=== PATIENT | female | born 1940 | race Caucasian/White ===

== ENCOUNTER 2023-02-02 21:00 | Outpatient (REF) | payer MEDICARE, OTHER, SELFPAY | END 2023-02-02 21:01 | disposition home or self-care (01) | LOC: LAB 21:00 | PROVIDERS: PCP Internal Medicine; Visit Provider Internal Medicine | DX: N39.0 Urinary tract infection, site not specified (principal) | CPT/HCPCS: 87086; 87150; 87186 ==

== ENCOUNTER 2023-06-10 11:48 | Outpatient (OUT) | payer MEDICARE, OTHER, SELFPAY ==
--- NOTE | 2023-06-10 12:00 | XR_ITS ---
The [address] [address] Patient Name: TRAVIS GONCALVES MRN: [id number] date: 1940 Sex: F Assigned Patient Location: [facility] Current Patient Location: Accession/Order Number: [id number] Exam Date: 06/10/2023 12:12 Report Date: 06/11/2023 07:08 At the request of: WIL EWING Procedure: XR lumbar spine 2-3V EXAMINATION: XR lumbar spine 2-3V HISTORY: Chronic Left Side Low Back Pain, Rheumatoid Arthritis COMPARISON: No relevant comparison available. FINDINGS: BONES: Marked right convex curvature of thoracolumbar spine. Mild grade 1 anterolisthesis of L3 on 4. Left lateral wedging of L2 vertebral body. Multilevel degenerative facet arthropathy and degenerative endplate changes. DISC SPACES: Marked narrowing L1-2, L2-3, L5-S1. Moderate narrowing at remaining levels. PARASPINOUS: Marked atherosclerotic disease of iliac arteries. OTHER: Negative. XR/XR lumbar spine 2-3V IMPRESSION: 1. No appreciable acute abnormality; no prior studies for comparison. 2. Marked degenerative changes and scoliosis of lower thoracic and lumbar spine. Electronically authenticated by: RADHA HODGE Date: 06/11/2023 07:08
== END 2023-06-10 11:49 | disposition home or self-care (01) ==
LOC: RAD 11:51
PROVIDERS: PCP Family Medicine; Visit Provider Family Medicine
DX: M05.79 Rheumatoid arthritis with rheumatoid factor of multiple sites without organ or systems involvement (principal); M54.50 Low back pain, unspecified
CPT/HCPCS: 72100

== ENCOUNTER 2023-06-10 12:41 | Outpatient (RCR) | payer MEDICARE, OTHER, SELFPAY | END 2023-09-11 11:21 | disposition home or self-care (01) | LOC: PT 12:41 | PROVIDERS: PCP Family Medicine; Visit Provider Internal Medicine | DX: M54.50 Low back pain, unspecified (principal) | CPT/HCPCS: 20561; 97113; 97162 ==

== ENCOUNTER 2023-07-23 23:10 | Outpatient (REF) | payer MEDICARE, OTHER, SELFPAY ==
--- OUTSIDE RECORDS SUMMARY | 2023-07-23 23:14 | XMS_ITS | CCD ---
Author Organization [facility] Care Team Providers Care Product Strategy Director Name Role Phone DO Carin Brady Primary Care Provider MD Jan Solares Attending Provider [phone] BECK, DR MONTOYA Admitting Unavailable HALADAY, DR MONTOYA Attending Unavailable NADERER, DR BOONE Waldrop Primary Care Unavailable HALADAY, DR MONTOYA Consulting Unavailable HALADAY, DR MONTOYA Admitting Unavailable HALADAY, DR MONTOYA Attending Unavailable NADERER, DR BOONE Waldrop Primary Care Unavailable HALADAY, DR MONTOYA Consulting Unavailable HALADAY, DR MONTOYA Admitting Unavailable HALADAY, DR MONTOYA Attending Unavailable NADERER, DR BOONE Waldrop Primary Care Unavailable HALADAY, DR MONTOYA Consulting Unavailable NADERER, DR BOONE Waldrop Admitting Unavailable NADERER, DR BOONE Waldrop Attending Unavailable NADERER, DR BOONE Waldrop Primary Care Unavailable NADERER, DR BOONE Waldrop Consulting Unavailable NADERER, DR BOONE Waldrop Admitting Unavailable NADERER, DR BOONE Waldrop Attending Unavailable NADERER, DR BOONE Waldrop Primary Care Unavailable NADERER, DR BOONE Waldrop Consulting Unavailable NADERER, DR BOONE Waldrop Admitting Unavailable NADERER, DR BOONE Waldrop Attending Unavailable NADERER, DR BOONE Waldrop Primary Care Unavailable NADERER, DR BOONE Waldrop Consulting Unavailable HALADAY, DR MONTOYA Admitting Unavailable HALADAY, DR MONTOYA Attending Unavailable NADERER, DR BOONE Waldrop Primary Care Unavailable HALADAY, DR MONTOYA Consulting Unavailable Gustavoadadylan, Jan Admitting Unavailable Haladadylan, Jan Attending Unavailable Carin Brady Primary Care Unavailable Haladadylan, Jan Admitting Unavailable Haladadylan, Jan Attending Unavailable Carin Brady Primary Care Unavailable Beck, Jan Admitting Unavailable Beck, Jan Attending Unavailable Carin Brady Primary Care Unavailable Jan Solares Admitting Unavailable Haladadylan, Jan Attending Unavailable Carin Brady Primary Care Unavailable Haladadylan, Jan Admitting Unavailable Haladay, Jan Attending Unavailable Carin Brady Primary Care Unavailable Boone Ewing MD Primary Care Provider JAN SMITH Attending Unavailable BOONE EWING Referring Unavailable BOONE EWING Primary Care Unavailable JAN SOLARES Referring Unavailable BOONE EWING Primary Care Unavailable Allergies Allergy Classification Reported Allergen(s) Allergy Type Date of Onset Reaction(s) Facility (2 sources) Amoxicillin; Translations: [AMOXICILLIN] Drug Allergy 04-10-2023 Diarrhea [facility] Medications Current Medications Medication Drug Class(es) Dates Sig (Normalized) Sig (Original) 8 hr acetaminophen 650 mg extended release oral tablet (1 source) take 1 tablet by mouth every eight hours as needed for pain acetaminophen (TYLENOL ARTHRITIS) 650 mg 8 hr tablet Take 1 tablet (650 mg total) by mouth every 8 (eight) hours as needed for pain. 0 Active alendronic acid 70 mg oral tablet (5 sources) Bisphosphonate Start: 10-15-2017 take 1 tablet by mouth every week alendronate (FOSAMAX) 70 mg tablet Take 1 tablet (70 mg total) by mouth once a week. 1 12/05/2018 Active amLODIPine 5 mg oral tablet (2 sources) Dihydropyridine Calcium Channel Ramiro Start: 12-18-2018 take 1 tablet by mouth in the morning amLODIPine (NORVASC) 5 mg tablet Take 1 tablet (5 mg total) by mouth in the morning. 1 12/18/2018 Active aspirin 81 mg delayed release oral tablet (2 sources) Platelet Aggregation Inhibitor, Nonsteroidal Anti-inflammatory Drug take 1 tablet by mouth in the morning aspirin 81 mg Take 1 tablet (81 mg total) by mouth in the morning. 30 tablet 11 Active atenolol 25 mg oral tablet (3 sources) beta-Adrenergic Ramiro Start: 10-15-2017 take 1 tablet by mouth once daily Atenolol Active 1 TAB PO Daily October 14, 2017 11:00pm atorvastatin 80 mg oral tablet (2 sources) HMG-CoA Reductase Inhibitor Start: 12-18-2018 take 1 tablet by mouth in the morning atorvastatin (LIPITOR) 80 mg tablet Take 1 tablet (80 mg total) by mouth in the morning. 1 12/18/2018 Active calcium carbonate 1250 mg / cholecalciferol 200 unt oral tablet (2 sources) Vitamin D take 1 tablet by mouth once in the morning calcium carbonate-vitamin D3 (OSCAL 500 + D) 500 mg(1,250mg) -200 units per tablet Take 1 tablet by mouth in the morning. 0 Active take 1 tablet by mouth once javid y calcium carbonate-vitamin D3 (OSCAL 500 + D) 500 mg(1,250mg) -200 units per tablet Take 1 tablet by mouth daily. 0 Active cholecalciferol 0.025 mg oral tablet (1 source) Vitamin D take 1 tablet by mouth in the morning cholecalciferol 1,000 units tablet Take 1 tablet (1,000 Units total) by mouth in the morning. 0 Active cranberry preparation 500 mg oral capsule (1 source) Non-Standardized Food Allergenic Extract, Non-Standardized Plant Allergenic Extract take 1 capsule by mouth twice daily cranberry 500 mg capsule Take by mouth 2 (two) times a day. 0 Active famotidine 20 mg oral tablet (5 sources) Histamine-2 Receptor Antagonist Start : 01-25 famotidine (PEPCID) 20 mg tablet Take 1 tablet (20 mg total) by mouth as needed. 3 01/25/2017 Active folic acid 1 mg oral tablet (3 sources) Start : 10-15 take 1 tablet by mouth once daily Folic Acid Active 1 TAB PO Daily October 14, 2017 11:00pm hydroCHLOROthiazide 50 mg oral tablet (3 sources) Thiazide Diuretic Start : 10-15 take 1 tablet by mouth once daily Hydrochlorothiazide Active 1 TAB PO Daily October 14, 2017 11:00pm leflunomide 20 mg oral tablet (1 source) Antirheumatic Agent take 1 tablet by mouth in the morning leflunomide (ARAVA) 20 mg tablet Take 1 tablet (20 mg total) by mouth in the morning. 0 Active levothyroxine sodium 0.025 mg oral capsule (5 sources) l-Thyroxine Start : 10-15 take 1 tablet by mouth once daily Levothyroxine Active 1 TAB PO Daily October 14, 2017 11:00pm Start: 01-25-2017 take 1 tablet by geneva th once daily levothyroxine (SYNTHROID, LEVOTHROID) 25 MCG tablet Take 1 tablet (25 mcg total) by mouth once daily. 3 01/25/2017 Active methotrexate 2.5 mg oral tablet (6 sources) Folate Analog Metabolic Inhibitor Start: 06-02-2019 Methotrexate Sodium Active TABLET June 02, 2019 12:00am Start: 10-15-2017 End: 06-02-2019 take 1 tablet by mouth once daily Methotrexate Sodium Discontinued 1 TAB PO Daily October 14, 2017 11:00pm June 02, 2019 11:52am 24 hr metoprolol succinate 100 mg extended release oral tablet (2 sources) beta-Adrenergic Ramiro Start: 01-08-2022 take 1 tablet by mouth every twenty-four hours in the morning metoprolol succinate XL (TOPROL XL) 100 mg 24 hr tablet TAKE 1 TABLET BY MOUTH IN THE MORNING. NEED APPT FOR ANY FURTHER REFILLS. 90 tablet 3 01/08/2022 Active bjnyymsv-xtll-DP-calci um &mins (THERAGRAN-M) 9 mg iron-400 mcg tablet (1 source) multivit-iron- FA-calcium &mins (THERAGRAN-M) 9 mg iron-400 mcg tablet Take 1 tablet by mouth in the morning. 0 Active 24 hr oxybutynin chloride 10 mg extended release oral tablet (1 source) Cholinergic Muscarinic Antagonist Start: 04-10-2023 take 1 tablet by mouth every twenty-four hours in the morning oxybutynin XL (DITROPAN-XL) 10 mg 24 hr tablet Take 1 tablet (10 mg total) by mouth in the morning. 0 04/10/2023 Active microencapsulated potassium chloride 20 meq extended release oral tablet (3 sources) Start: 10-15-2017 take 1 tablet by mouth once daily Potassium Chloride (Klor-Con M20) 20 mEq Tablet,Er Particles/Kaye tals Active 1 TAB PO Daily October 14, 2017 11:00pm predniSONE 5 mg oral tablet (10 sources) Start: 10-15-2017 take 1 tablet by mouth once Prednisone Active 1 TAB PO every Thursday, Thursday, and Saturday October 14, 2017 11:00pm Start: 10-15-2017 take 1 tablet by mouth once Pr ednisone Active 1 TAB PO every Thursday, , Thursday, and Saturday October 14, 2017 11:00pm Start: 02-25-2017 End: 04-10-2023 predniSONE (DELTASONE) 5 mg tablet Take 0.5 tablets (2.5 mg total) by mouth. Takes 1/2 tab on Mondays, Wednesdays, and Fridays AND other days a whole tablet 5 02/25/2017 04/10/2023 Discontinued (Therapy completed) End: 04-10-2023 take 1 tablet by mouth every other day predniSONE (DELTASONE) 5 mg tablet Take 1 tablet (5 mg total) by mouth every other day. Full dose Tues, Th, Sat, Sun (2.5mg Thu, Thu, Thu) 0 04/10/2023 Discontinued (Therapy completed) Completed/Discontinued Medications Medication Drug Class(es) Dates Sig (Normalized) Sig (Original) diclofenac sodium 0.01 mg/mg topical gel (2 sources) Nonsteroidal Anti-inflammatory Drug End: 04-10-2023 diclofenac sodium (VOLTAREN) 1 % gel Apply 2 g topically 3 (three) times a day as needed. 0 04/10/2023 Discontinued (Therapy completed) mupirocin 0.02 mg/mg topical ointment (2 sources) RNA Synthetase Inhibitor Antibacterial Start: 09-20-2020 End: 04-10-2023 mupirocin (BACTROBAN) 2 % ointment Indications: Epistaxis Applied intranasally bilaterally 2 times daily 15 g 0 09/20/2020 04/10/2023 Discontinued (Therapy completed) sod sarjc-lakvib-nnzn ez bottle (NEILMED SINUS RINSE COMPLETE) packet with rinse device nasal solution (2 sources) Start: 08-22-2020 End: 04-10-2023 take 1 dose nasal route twice daily sod ebupb-ebcujg-tlepn z bottle (NEILMED SINUS RINSE COMPLETE) packet with rinse device nasal solution Administer 1 packet into each nostril 2 (two) times a day. 60 packet 0 08/22/2020 04/10/2023 Discontinued (Therapy completed) Start: 08-22-2020 take 1 dose nasal ro jordan twice daily sod kuqdf-edatld-yowxtt bottle (NEILMED SINUS RINSE COMPLETE) packet with rinse device nasal solution Administer 1 packet into each nostril 2 (two) times a day. 60 packet 0 08/22/2020 Active Problems Active Problems Problem Classification Problem Date Documented Da te Episodic/Chronic Coronary atherosclerosis and other heart disease (4 sources) Coronary arteriosclerosis; Translations: [Atherosclerotic heart disease of [place] coronary artery without angina pectoris] Onset: 10-29-2018 Resolved: 10-21-2019 10-21-2019 Chronic Disorders of lipid metabolism (4 sources) Dyslipidemia; Translations: [Hyperlipidemia, unspecified] Onset: 10-21-2019 10-21-2019 Chronic Essential hypertension (2 sources) Essential hypertension; Translations: [Essential (primary) hypertension] Onset: 04-10-2023 04-10-2023 Chronic Genitourinary symptoms and ill-defined conditions (4 sources) Dysuria; Translations: [DYSURIA] Onset: 03-25-2022 Episodic Other aftercare (2 sources) Other exterminator (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; Translations: [OTH 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 WORKER 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 DRUG THERAPY] Onset: 01-20-2022 Episodic Rheumatoid arthritis and related disease (11 sources) Rheumatoid arthritis, unspecified; Translations: [Rheumatoid arthritis without rheumatoid factor, multiple sites] Onset: 12-03-2021 Chronic Spondylosis; intervertebral disc disorders; other back problems (2 sources) Cervical spondylosis without myelopathy; Translations: [Spondylosis without myelopathy or radiculopathy, cervical region] Onset: 04-16-2017 06-15-2018 Chronic Unclassified (1 source) Pain in right knee; Translations: [Pain in right knee] Onset: 02-19-2022 Unclassified (1 source) M06.4 - Inflammatory polyarthropathy; Translations: [M06.4 - Inflammatory polyarthropathy] Onset: 10-09-2021 Past or Other Problems Problem Classification Problem Date Documented Da te Episodic/Chronic Coronary atherosclerosis and other heart disease (1 source) Presence of aortocoronary bypass graft; Translations: [Presence of aortocoronary bypass graft] Onset: 10-21-2019 Episodic Deficiency and other anemia (2 sources) Iron deficiency anemia; Translations: [Iron deficiency anemia, unspecified] Onset: 11-26-2018 11-26-2018 Episodic Immunizations and screening for infectious disease (1 source) Raised antibody titer; Translations: [Raised antibody titer] Onset: 02-12-2022 Episodic Mood disorders (2 sources) Mood disorders Onset: 01-07-2021 01-07-2021 Nonspecific chest pain (2 sources) Chest pain; Translations: [Other chest pain] Onset: 10-29-2018 Resolved: 10-21-2019 10-21-2019 Episodic Other lower respiratory disease (2 sources) Dyspnea; Translations: [Shortness of breath] Onset: 10-29-2018 Resolved: 10-21-2019 10-21-2019 Episodic Other non-traumatic joint disorders (1 source) Pain in left knee; Translations: [Pain in left knee] Onset: 02-19-2022 Episodic Other screening for suspected conditions (not mental disorders or infectious disease) (5 sources) Abnormal results of liver function studies; Translations: [Cardiovascular stress test abnormal] Onset: 10-29-2018 Resolved: 10-21-2019 10-21-2019 Episodic Other upper respiratory disease (2 sources) Bleeding from nose; Translations: [Epistaxis] Onset: 08-01-2020 08-01-2020 Episodic Respiratory failure; insufficiency; arrest (adult) (2 sources) Dependence on respirator; Translations: [Dependence on respirator [ventilator] status] Onset: 06-02-2019 Resolved: 10-21-2019 10-21-2019 Chronic Results Test Name Value Interpretation Reference Range Facility CBC AND AUTO DIFFon 05-13-19 ABSOLUTE BASOPHIL 0.1 X10E9/L Normal 0.0-0.2 [facility] Comment on above: Performed By: #### C BCA, TUBULAR RIVETER, LIVR, 75866-7 #### [facility] ([id number]) [address] [place] [address] ABSOLUTE NEUTROPHIL 4.4 X10E9/L Normal 1.5-6.6 [facility] Comment on above: Performed By: #### C BCA, TUBULAR RIVETER, LIVR, 75184-7 #### [facility] ([id number]) [address] [place] [address] Basophils/100 WBC (Bld) 1.9 % Normal [facility] Comment on above: Performed By: #### C BCA, TUBULAR RIVETER, LIVR, 71408-1 #### [facility] ([id number]) [address] [place] [address] Eosinophils (Bld) [#/Vol] 0.3 10*3/uL Normal 0.0-0.4 [facility] Comment on above: Performed By: #### C BCA, TUBULAR RIVETER, LIVR, 53683-6 #### [facility] ([id number]) [address], [address] [place] [address] Eosinophils/100 WBC (Bld) 3.5 % Normal [facility] Comment on above: Performed By: #### C BCA, TUBULAR RIVETER, LIVR, 73828-0 #### [facility] ([id number]) [address], [address] [place] [address] Erythrocyte distribution width (RBC) [Ratio] 13.6 % Normal 11.5-15.0 [facility] Comment on above: Performed By: #### C BCA, TUBULAR RIVETER, LIVR, 84161-8 #### [facility] ([id number]) [address] [place] [address] Hematocrit (Bld) [Volume fraction] 42.5 % Normal 35-47 [facility] Comment on above: Performed By: #### C BCA, TUBULAR RIVETER, LIVR, 56876-1 #### [facility] ([id number]) [address], [facility] [address] [place] [address] Hemoglobin (Bld) [Mass/Vol] 14.2 g/dL Normal 11.7-15.5 [facility] Comment on above: Performed By: #### C BCA, TUBULAR RIVETER, LIVR, 66949-9 #### [facility] ([id number]) [address], [address] [place] [address] Lymphocytes (Bld) [#/Vol] 1.4 10*3/uL Normal 1.0-3.5 [facility] Comment on above: Performed By: #### C BCA, TUBULAR RIVETER, LIVR, 88146-3 #### [facility] ([id number]) [address] [place] [address] Lymphocytes/100 WBC (Bld) 19.9 % Normal [facility] Comment on above: Performed By: #### C BCA, TUBULAR RIVETER, LIVR, 84302-8 #### [facility] ([id number]) [address], [address] [place] [address] MCH (RBC) [Entitic mass] 30.8 pg Normal 27-34 [facility] Comment on above: Performed By: #### C BCA, TUBULAR RIVETER, LIVR, 83407-3 #### [facility] ([id number]) [address], [address] [place] [address] MCHC (RBC) [Mass/Vol] 33.4 g/dL Normal 32-36 [facility] Comment on above: Performed By: #### C BCA, TUBULAR RIVETER, LIVR, 98322-9 #### [facility] ([id number]) [address], [address] [place] [address] MCV (RBC) [Entitic vol] 92 fL Normal 80-100 [facility] Comment on above: Performed By: #### C BCA, TUBULAR RIVETER, LIVR, 34659-2 #### [facility] ([id number]) [address], [address] [place] [address] Monocytes (Bld) [#/Vol] 0.9 10*3/uL Normal 0-0.9 [facility] Comment on above: Performed By: #### C BCA, TUBULAR RIVETER, LIVR, 19236-7 #### [facility] ([id number]) [address] [place] [address] Monocytes/100 WBC (Bld) 12.9 % Normal [facility] Comment on above: Performed By: #### C BCA, TUBULAR RIVETER, LIVR, 93666-5 #### [facility] ([id number]) [address] [place] [address] Neutrophils/100 WBC (Bld) 61.8 % Normal [facility] Comment on above: Performed By: #### C BCA, TUBULAR RIVETER, LIVR, 28207-0 #### [facility] ([id number]) [address] [place] [address] Platelet mean volume (Bld) [Entitic vol] 10.3 fL Normal 7-12 [facility] Comment on above: Performed By: #### C BCA, TUBULAR RIVETER, LIVR, 84768-2 #### [facility] ([id number]) [address] [address] [place] [address] Platelets (Bld) [#/Vol] 288 10*3/uL Normal 150-450 [facility] Comment on above: Performed By: #### C BCA, TUBULAR RIVETER, LIVR, 65579-4 #### [facility] ([id number]) [address] [address] [place] [address] RBC COUNT 4.61 X10E12/L Normal 3.80-5.20 [facility] Comment on above: Performed By: #### C BCA, TUBULAR RIVETER, LIVR, 12903-6 #### [facility] ([id number]) [address] [address] [place] [address] WBC (Bld) [#/Vol] 7.2 10*3/uL Normal 4.0-11.0 [facility] Comment on above: Performed By: #### C BCA, TUBULAR RIVETER, LIVR, 32912-2 #### [facility] ([id number]) [address] [address] [place] [address] CREATININEon 05-13-2023 Creatinine [Mass/Vol] 0.66 mg/dL Normal 0.40-1.00 [facility] Comment on above: Result Comment: METH OD TRACEABLE TO IDMS STANDARD Performed By: #### C BCA, TUBULAR RIVETER, LIVR, 83957-1 #### [facility] ([id number]) [address] [address] [place] [address] GFR/1.73 sq M.predicted among non-blacks MDRD (S/P/Bld) [Vol rate/Area] 87 mL/min/{1.73_m2} Normal >59 [facility] Comment on above: Result Comment: Reported eGFR is based on the CKD-EPI 2020 equation that does not use a race coefficient. Performed By: #### C BCA, TUBULAR RIVETER, LIVR, 33822-1 #### [facility] ([id number]) [address] [address] ESR Photometric method (Bld) [Velocity]on 05-13-2023 ESR, ERYTHROCYTE SEDIMENTATION RATE 10 mm/h Normal 0-30 [facility] Comment on above: Performed By: #### C BCA, TUBULAR RIVETER, LIVR, 20567-2 #### [facility] ([id number]) [address] [address] [place] [address] LIVER PANELon 05-13-2023 Albumin [Mass/Vol] 3.8 g/dL Normal 3.2-5.3 [facility] Comment on above: Performed By: #### C BCA, TUBULAR RIVETER, LIVR, 12751-0 #### [facility] ([id number]) [address] [address] [place] [address] ALP [Catalytic activity/Vol] 114 U/L Normal 39-130 [facility] Comment on above: Performed By: #### C BCA, TUBULAR RIVETER, LIVR, 11322-6 #### [facility] ([id number]) [address] [address] [place] [address] ALT [Catalytic activity/Vol] 17 U/L Normal 0-31 [facility] Comment on above: Performed By: #### C BCA, TUBULAR RIVETER, LIVR, 52067-6 #### [facility] ([id number]) [address] [address] [place] [address] AST [Catalytic activity/Vol] 27 U/L Normal 0-41 [facility] Comment on above: Performed By: #### C BCA, TUBULAR RIVETER, LIVR, 14686-7 #### [facility] ([id number]) [address] [place] [address] Bilirubin [Mass/Vol] 0.6 mg/dL Normal 0.3-1.2 [facility] Comment on above: Performed By: #### C BCA, TUBULAR RIVETER, LIVR, 48583-9 #### [facility] ([id number]) [address] [place] [address] Bilirubin.direct [Mass/Vol] 0.1 mg/dL Normal 0.0-0.4 [facility] Comment on above: Performed By: #### C BCA, TUBULAR RIVETER, LIVR, 15964-7 #### [facility] ([id number]) [address] [place] [address] Protein [Mass/Vol] 6.5 g/dL Normal 6.0-8.0 [facility] Comment on above: Performed By: #### C BCA, TUBULAR RIVETER, LIVR, 43020-2 #### [facility] ([id number]) [address] [place] [address] POCT EKGon 04-10-2023 [facility] C-Reactive Proteinon 023 C-Reactive Protein 0.6 mg/dL Normal 0.0-1.0 [facility] Comment on above: Result Comment: PERF ORMED BY: [place] [address] PATHOLOGIST STRATEGIC MARKETING LEADER TOBIAS SCOTT M.D. Performed By: #### C 3, C4 #### [facility] , #### ESR, CRP, CBC, CREAT, ADDONUAPLUS, HEPATIC #### [facility] [address] Complement C3on 05-28-2022 Complement C3 142 mg/dL Normal 82-167 [facility] Comment on above: Result Comment: Perf ormed at: - [facility] [id number] [place], [place] [id number] Teaching Young: Guanaco Cui PhD, Phone: [phone] Performed By: #### C 3, C4 #### [facility] , #### ESR, CRP, CBC, CREAT, ADDONUAPLUS, HEPATIC #### [address] Complement C4on 05-28-2022 Complement C4 39 mg/dL High 12-38 [facility] Comment on above: Result Comment: PERF ORMED BY: [place] [address] PATHOLOGIST STRATEGIC MARKETING LEADER TOBIAS SCOTT M.D. Performed By: #### C 3, C4 ####[facility] ,#### ESR, CRP, CBC, CREAT, ADDONUAPLUS, HEPATIC ####[address] Complete Blood Count Auto Di ffon 05-28-2022 Basophils (Bld) [#/Vol] 0.1 10*3/uL Normal 0.0-0.2 [facility] Comment on above: Performed By: #### C 3, C4 #### [facility] , #### ESR, CRP, CBC, CREAT, ADDONUAPLUS, HEPATIC #### [address] Basophils/100 WBC (Bld) 0.6 % Normal . [facility] Comment on above: Performed By: #### C 3, C4 #### [facility] , #### ESR, CRP, CBC, CREAT, ADDONUAPLUS, HEPATIC #### [address] Eosinophils (Bld) [#/Vol] 0.1 10*3/uL Normal 0.0-0.45 [facility] Comment on above: Performed By: #### C 3, C4 #### [facility] , #### ESR, CRP, CBC, CREAT, ADDONUAPLUS, HEPATIC #### [address] Eosinophils/100 WBC (Bld) 1.1 % Normal . [facility] Comment on above: Performed By: #### C 3, C4 #### [facility] , #### ESR, CRP, CBC, CREAT, ADDONUAPLUS, HEPATIC #### [address] Erythrocyte distribution width (RBC) [Ratio] 13.9 % Normal 11.9-15.3 [facility] Comment on above: Performed By: #### C 3, C4 #### [facility] , #### ESR, CRP, CBC, CREAT, ADDONUAPLUS, HEPATIC #### [address] Hematocrit (Bld) [Volume fraction] 47.4 % High 34.0-46.4 [facility] Comment on above: Performed By: #### C 3, C4 #### [facility] , #### ESR, CRP, CBC, CREAT, ADDONUAPLUS, HEPATIC #### [address] Hemoglobin (Bld) [Mass/Vol] 15.6 g/dL High 11.8-15.4 [facility] Comment on above: Performed By: #### C 3, C4 #### [facility] , #### ESR, CRP, CBC, CREAT, ADDONUAPLUS, HEPATIC #### [address] Lymphocytes (Bld) [#/Vol] 1.0 10*3/uL Normal 1.00-4.8 [facility] Comment on above: Performed By: #### C 3, C4 #### [facility] , #### ESR, CRP, CBC, CREAT, ADDONUAPLUS, HEPATIC #### [address] Lymphocytes/100 WBC (Bld) 8.5 % Normal . [facility] Comment on above: Performed By: #### C 3, C4 #### [facility] , #### ESR, CRP, CBC, CREAT, ADDONUAPLUS, HEPATIC #### [address] MCH (RBC) [Entitic mass] 30.4 pg Normal 24.7-34.3 [facility] Comment on above: Performed By: #### C 3, C4 #### [facility] , #### ESR, CRP, CBC, CREAT, ADDONUAPLUS, HEPATIC #### [address] MCV (RBC) [Entitic vol] 92.3 fL Normal 80-100 [facility] Comment on above: Performed By: #### C 3, C4 #### [facility] , #### ESR, CRP, CBC, CREAT, ADDONUAPLUS, HEPATIC #### [address] Mean Corpuscular HGB Conc 32.9 g/dL Normal 32.0-35.0 [facility] Comment on above: Performed By: #### C 3, C4 #### [facility] , #### ESR, CRP, CBC, CREAT, ADDONUAPLUS, HEPATIC #### [address] Monocytes (Bld) [#/Vol] 0.7 10*3/uL Normal 0.0-0.8 [facility] Comment on above: Performed By: #### C 3, C4 #### [facility] , #### ESR, CRP, CBC, CREAT, ADDONUAPLUS, HEPATIC #### [address] Monocytes/100 WBC (Bld) 5.7 % Normal . [facility] Comment on above: Performed By: #### C 3, C4 #### [facility] , #### ESR, CRP, CBC, CREAT, ADDONUAPLUS, HEPATIC #### [address] Neutrophils (Bld) [#/Vol] 9.7 10*3/uL High 1.8-7.7 [facility] Comment on above: Performed By: #### C 3, C4 #### [facility] , #### ESR, CRP, CBC, CREAT, ADDONUAPLUS, HEPATIC #### [address] Neutrophils/100 WBC (Bld) 84.1 % Normal . [facility] Comment on above: Performed By: #### C 3, C4 #### [facility] , #### ESR, CRP, CBC, CREAT, ADDONUAPLUS, HEPATIC #### [facility] [address] [place] [address] NRBC% 0.0 /100{WBC} Normal 0-0.5 [facility] Comment on above: Performed By: #### C 3, C4 #### [facility] , #### ESR, CRP, CBC, CREAT, ADDONUAPLUS, HEPATIC #### [facility] [address] [place] [address] Platelet mean volume (Bld) [Entitic vol] 9.4 fL Normal 6.3-10.7 [facility] Comment on above: Performed By: #### C 3, C4 #### [facility] , #### ESR, CRP, CBC, CREAT, ADDONUAPLUS, HEPATIC #### [facility] [address] [place] [address] Platelets (Bld) [#/Vol] 267 10*3/uL Normal 150-450 [facility] Comment on above: Performed By: #### C 3, C4 #### [facility] , #### ESR, CRP, CBC, CREAT, ADDONUAPLUS, HEPATIC #### [facility] [address] [place] [address] RBC (Bld) [#/Vol] 5.13 10*6/uL High 3.60-5.00 [facility] Comment on above: Performed By: #### C 3, C4 #### [facility] , #### ESR, CRP, CBC, CREAT, ADDONUAPLUS, HEPATIC #### [address] WBC (Bld) [#/Vol] 11.6 10*3/uL Normal 3.8-11.6 [facility] Comment on above: Performed By: #### C 3, C4 #### [facility] , #### ESR, CRP, CBC, CREAT, ADDONUAPLUS, HEPATIC #### [address] Creatinineon 05-28-2022 Creatinine [Mass/Vol] 0.81 mg/dL Normal 0.44-1.03 [facility] Comment on above: Performed By: #### C 3, C4 #### [facility] , #### ESR, CRP, CBC, CREAT, ADDONUAPLUS, HEPATIC #### [facility] [address] [place] [address] Estimated GFR ( Rose Mary > 60 [facility] Comment on above: Result Comment: GFR estimated reference range: According to KDOQI guidelines, <60 ml/min/1.73m2 is sufficient to diagnose a patient with chronic kidney disease. Performed By: #### C 3, C4 #### [facility] , #### ESR, CRP, CBC, CREAT, ADDONUAPLUS, HEPATIC #### [address] Estimated GFR (Non- Am > 60 [facility] Comment on above: Performed By: #### C 3, C4 #### [facility] , #### ESR, CRP, CBC, CREAT, ADDONUAPLUS, HEPATIC #### [facility] [address] [place] [address] Dipstick and Microscopicon 0 05-28-2022 Appearance (U) Clear Normal Clear [facility] Comment on above: Order Comment: Name Collection Type:: Clean-Voided Midstream Performed By: #### C 3, C4 #### [facility] , #### ESR, CRP, CBC, CREAT, ADDONUAPLUS, HEPATIC #### [facility] [address] [place] [address] Bacteria,Urine None Seen Normal None Seen [facility] Comment on above: Order Comment: Name Collection Type:: Clean-Voided Midstream Performed By: #### C 3, C4 #### [facility] , #### ESR, CRP, CBC, CREAT, ADDONUAPLUS, HEPATIC #### [facility] [address] [place] [address] Bilirubin,Urine Negative Normal Negative [facility] Comment on above: Order Comment: Name Collection Type:: Clean-Voided Midstream Performed By: #### C 3, C4 #### [facility] , #### ESR, CRP, CBC, CREAT, ADDONUAPLUS, HEPATIC #### [facility] [address] [place] [address] [place] Color (U) Yellow Normal Yellow [facility] Comment on above: Order Comment: Name Collection Type:: Clean-Voided Midstream Performed By: #### C 3, C4 #### [facility] , #### ESR, CRP, CBC, CREAT, ADDONUAPLUS, HEPATIC #### [facility] [address] [place] [address] [place] Glucose Ql (U) Normal Normal Normal [facility] Comment on above: Order Comment: Name Collection Type:: Clean-Voided Midstream Performed By: #### C 3, C4 #### [facility] , #### ESR, CRP, CBC, CREAT, ADDONUAPLUS, HEPATIC #### [address] Hyaline Casts,Urine 0-8 Normal 0-8 [facility] Comment on above: Order Comment: Name Collection Type:: Clean-Voided Midstream Result Comment: PERF ORMED BY: [place] [address] PATHOLOGIST [employer] MARKETING LEADER TOBIAS SCOTT M.D. Performed By: #### C 3, C4 #### [facility] , #### ESR, CRP, CBC, CREAT, ADDONUAPLUS, HEPATIC #### [address] Ketones Ql (U) Negative Normal Negative [facility] Comment on above: Order Comment: Name Collection Type:: Clean-Voided Midstream Performed By: #### C 3, C4 #### [facility] , #### ESR, CRP, CBC, CREAT, ADDONUAPLUS, HEPATIC #### [address] Leukocyte esterase Test strip Ql (U) 3+ High Negative [facility] Comment on above: Order Comment: Name Collection Type:: Clean-Voided Midstream Performed By: #### C 3, C4 #### [facility] , #### ESR, CRP, CBC, CREAT, ADDONUAPLUS, HEPATIC #### [facility] [address] [place] [address] [place] Nitrite,Urine Negative Normal Negative [facility] Comment on above: Order Comment: Name Collection Type:: Clean-Voided Midstream Performed By: #### C 3, C4 #### [facility] , #### ESR, CRP, CBC, CREAT, ADDONUAPLUS, HEPATIC #### [place] [address] [place] Occult Blood,Urine Negative Normal Negative [facility] Comment on above: Order Comment: Name Collection Type:: Clean-Voided Midstream Performed By: #### C 3, C4 #### [facility] , #### ESR, CRP, CBC, CREAT, ADDONUAPLUS, HEPATIC #### [address] pH (U) 7.5 [pH] Normal 5.0-9.0 [facility] Comment on above: Order Comment: Name Collection Type:: Clean-Voided Midstream Performed By: #### C 3, C4 #### [facility] , #### ESR, CRP, CBC, CREAT, ADDONUAPLUS, HEPATIC #### [address] Protein,Urine Negative Normal Negative [facility] Comment on above: Order Comment: Name Collection Type:: Clean-Voided Midstream Performed By: #### C 3, C4 #### [facility] , #### ESR, CRP, CBC, CREAT, ADDONUAPLUS, HEPATIC #### [address] RBC LM.HPF (Urine sed) [#/Area] 0 /[HPF] Normal 0-4 [facility] Comment on above: Order Comment: Name Collection Type:: Clean-Voided Midstream Performed By: #### C 3, C4 #### [facility] , #### ESR, CRP, CBC, CREAT, ADDONUAPLUS, HEPATIC #### [address] Specificy [place],Urine 1.014 Normal 1.001-1.030 [facility] Comment on above: Order Comment: Name Collection Type:: Clean-Voided Midstream Performed By: #### C 3, C4 #### [facility] , #### ESR, CRP, CBC, CREAT, ADDONUAPLUS, HEPATIC #### [address] Squamous Epithelial Cell,Urine 1-2 Normal 0-2 [facility] Comment on above: Order Comment: Name Collection Type:: Clean-Voided Midstream Performed By: #### C 3, C4 #### [facility] , #### ESR, CRP, CBC, CREAT, ADDONUAPLUS, HEPATIC #### [facility] [address] [place] [address] Urobilinogen,Urine Normal Normal Normal [facility] Comment on above: Order Comment: Name Collection Type:: Clean-Voided Midstream Performed By: #### C 3, C4 #### [facility] , #### ESR, CRP, CBC, CREAT, ADDONUAPLUS, HEPATIC #### [address] WBC,Urine 3-4 Normal 0-4 [facility] Comment on above: Order Comment: Name Collection Type:: Clean-Voided Midstream Performed By: #### C 3, C4 #### [facility] , #### ESR, CRP, CBC, CREAT, ADDONUAPLUS, HEPATIC #### [facility] [address] [place] [address] Erythrocyte Sedimentation Ra sarah 05-28-2022 ESR (Bld) [Velocity] 28 mm/h Normal 0-29 [facility] Comment on above: Result Comment: PERF ORMED BY: [place] [address] PATHOLOGIST [employer]ET[employer] LEADER TOBIAS SCOTT M.D. Performed By: #### C 3, C4 #### [facility] , #### ESR, CRP, CBC, CREAT, ADDONUAPLUS, HEPATIC #### [facility] [address] [place] [address] Hepatic Panelon 05-28-2022 Albumin [Mass/Vol] 3.8 g/dL Normal 3.2-5.5 [facility] Comment on above: Performed By: #### C 3, C4 #### [facility] , #### ESR, CRP, CBC, CREAT, ADDONUAPLUS, HEPATIC #### [place] [address] [place] Albumin/Globulin [Mass ratio] 1.4 {ratio} Normal [facility] Comment on above: Performed By: #### C 3, C4 #### [facility] , #### ESR, CRP, CBC, CREAT, ADDONUAPLUS, HEPATIC #### [address] ALP [Catalytic activity/Vol] 106 U/L High 32-92 [facility] Comment on above: Performed By: #### C 3, C4 #### [facility] , #### ESR, CRP, CBC, CREAT, ADDONUAPLUS, HEPATIC #### [place] [address] [place] ALT [Catalytic activity/Vol] 28 U/L Normal 10-60 [facility] Comment on above: Performed By: #### C 3, C4 #### [facility] , #### ESR, CRP, CBC, CREAT, ADDONUAPLUS, HEPATIC #### [place] [id number] [place] AST [Catalytic activity/Vol] 33 U/L Normal 10-42 [facility] Comment on above: Performed By: #### C 3, C4 #### [facility] , #### ESR, CRP, CBC, CREAT, ADDONUAPLUS, HEPATIC #### [place] [address] [place] Bilirubin [Mass/Vol] 0.8 mg/dL Normal 0.3-1.2 [facility] Comment on above: Performed By: #### C 3, C4 #### [facility] , #### ESR, CRP, CBC, CREAT, ADDONUAPLUS, HEPATIC #### [place] [address] [place] Bilirubin,Indirect 0.6 mg/dL Normal [facility] Comment on above: Performed By: #### C 3, C4 #### [facility] , #### ESR, CRP, CBC, CREAT, ADDONUAPLUS, HEPATIC #### [facility] [address] Bilirubin.indirect [Mass/Vol] 0.2 mg/dL Normal 0.0-0.4 [facility] Comment on above: Performed By: #### C 3, C4 #### [facility] , #### ESR, CRP, CBC, CREAT, ADDONUAPLUS, HEPATIC #### [facility] [address] [place] [address] Globulin (S) [Mass/Vol] 2.8 g/dL Normal [facility] Comment on above: Performed By: #### C 3, C4 #### [facility] , #### ESR, CRP, CBC, CREAT, ADDONUAPLUS, HEPATIC #### [facility] [address] [place] [address] Protein [Mass/Vol] 6.6 g/dL Normal 6.1-7.9 [facility] Comment on above: Performed By: #### C 3, C4 #### [facility] , #### ESR, CRP, CBC, CREAT, ADDONUAPLUS, HEPATIC #### [facility] [address] [place] [address] CULTURE URINEon 03-28-2022 CULTURE URINE Isolate 1 Escherichia coli >100,000 cfu/mL of ORGANISM 1 Escherichia coli ANTIBIOTIC M.I.C RX STATUS Ampicillin >=32 R F Ampicillin/Sulbactam 4 S F Piperacillin/Tazobact am <=4 S F Cefazolin <=4 S F Ceftazidime <=1 S F Ceftriaxone <=1 S F Ertapenem <=0.5 S F Imipenem <=0.25 S F Amikacin <=2 S F Gentamicin >=16 R F Tobramycin >=16 R F Ciprofloxacin >=4 R F Levofloxacin >=8 R F Nitrofurantoin <=16 S F Trimethoprim/Sulfamet hoxazole >=320 R F Normal [facility] Comment on above: Performed By: #### C ASA, LIVER #### [facility] [address] [place] [address] [address] Meron Obando XR knee BI 2Von 02-19-2022 XR knee BI 2V [facility] [place] [address] [place] [address] XRay Report Signed Patient: Angelika Goncalves MR#: [id number] : 1940 Acct:[id number] Age/Sex: 81 / F ADM Date: 02/19/22 Loc: ICXD Room: Type: [facility] Attending Dr: Jan Solares MD Copies to: Jan Solares MD Ordering Provider: Jan Solares MD Date of Service: 02/19/22 XR/XR knee BI 2V: KNEE PAIN 2 views both knee plain film COMPARISON:04/12/2021 HISTORY:Bilateral knee pain Diffuse osteopenia redemonstrated. Marked right greater than left of by lateral bilateral compartment degenerative changes. Mild degenerative subluxation. No acute bony findings.No joint effusion identified. XR/XR knee BI 2V IMPRESSION:Similar advanced bilateral knee degeneration. Impression dictated by: Andrew Lane M.D.02/19/2022 3:22 PM Dictation Location: [place] [address] Transcribed By: [facility] 02/19/22 1522 Dictated By: Andrew Lane DO 02/19/22 1517 Signed By: 02/19/22 1522 Normal [facility] Mitochondrial (M2) Antibodyo n 02-12-2022 Mitochondrial (M2) Antibody <20.0 Normal 0.0-20.0 [facility] Comment on above: Result Comment: Nega tive 0.0 - 20.0 Equivocal 20.1 - 24.9 Positive >24.9 Mitochondrial (M2) Antibodies are found in 90-96% of patients with primary biliary cirrhosis. Performed at: [address] [id number] Teaching Young: Guanaco Cui PhD, Phone: [phone] PERFORMED BY: [facility] [address] [place] [id number] PATHOLOGIST STRATE[employer]IC MARKETING LEADER TOBIAS SCOTT M.D. Performed By: #### M ITOM2 ####[facility] , CULTURE URINEon 02-10-2022 CULTURE URINE Culture Observations : ERIC TO FOLLOW. Isolate 1 Citrobacter spp. >100,000 cfu/mL of Normal [facility] Comment on above: Performed By: #### C ASA, LIVER #### [facility] [address] [place] [address] Dr. Meron Obando UA RANDOM W/MICROSCOPICon BACTERIA MODERATE Abnormal NONE SEEN [facility] Comment on above: Performed By: #### U AMIC #### [facility] [address] [place] [address] Dr. Meron Obando Bilirubin Ql (U) Negative Normal NEGATIVE [facility] Comment on above: Performed By: #### U AMIC #### [facility] [address] [place] [address] Dr. Meron Obando CAST NONE SEEN Normal NONE SEEN [facility] Comment on above: Performed By: #### U AMIC #### [facility] [address] [place] [address] Dr. Meron Obando Clarity (U) CLEAR Normal CLEAR [facility] Comment on above: Performed By: #### U AMIC #### [facility] [address] [place] [address] Dr. Meron Obando Color (U) YELLOW Normal YELLOW [facility] Comment on above: Performed By: #### U AMIC #### [facility] [address] [place] [address] Dr. Meron Obando Crystals LM Nom (Urine sed) NONE SEEN Normal NONE SEEN [facility] Comment on above: Performed By: #### U AMIC #### [facility] [address] [place] [address] Dr. Meron Obando Epithelial cells LM Ql (Urine sed) FEW Abnormal NONE SEEN /RARE [facility] Comment on above: Performed By: #### U AMIC #### [facility] [address] [place] [address] [address] Meron Obando Glucose Ql (U) Negative Normal NEGATIVE [facility] Comment on above: Performed By: #### U AMIC #### [facility] [address] [place] [address] [address] Meron Obando Hemoglobin Ql (U) TRACE-INTACT Abnormal NEGATIVE [facility] Comment on above: Performed By: #### U AMIC #### [facility] [address] [place] [address] [address] Meron Obando Ketones Ql (U) Negative Normal NEGATIVE [facility] Comment on above: Performed By: #### U AMIC #### [facility] [address] [place] [address] Dr. Meron Obando LEUKOCYTES LARGE Abnormal NEGATIVE [facility] Comment on above: Performed By: #### U AMIC #### [facility] [address] [place] [address] [address] Meron Obando MUCOUS NONE SEEN Normal NONE SEEN [facility] Comment on above: Performed By: #### U AMIC #### [facility] [address] [place] [address] [address] Meron Obando Nitrite Ql (U) Negative Normal NEGATIVE [facility] Comment on above: Performed By: #### U AMIC #### [facility] [address] [place] [address] [address] Meron Obando pH (U) 6.0 [pH] Normal 5-9 [facility] Comment on above: Performed By: #### U AMIC #### [facility] [address] [place] [address] [address] Meron Obando RBC 5-10 Abnormal 0-2 [facility] Comment on above: Performed By: #### U AMIC #### [facility] [address] [place] [address] Dr. Meron Obando SPEC GRAVITY <=1.005 Abnormal 1.005-<=1.025 [facility] Comment on above: Performed By: #### U AMIC #### [facility] [address] [place] [address] [address] Meron Obando UA PROTEIN Negative Normal NEGATIVE/ TRACE [facility] Comment on above: Performed By: #### U AMIC #### [facility] [address] [place] [address] [address] Meron Obando Urobilinogen Qn (U) 0.2 {Opal'U}/dL Normal 0.2 - 1. 0 [facility] Comment on above: Performed By: #### U AMIC #### [facility] [address] [place] [address] [address] Meron Obando WBC 50-75 Abnormal NONE SEEN [facility] Comment on above: Performed By: #### U AMIC #### [facility] [address] [place] [address] [address] Meron Obando C3 and C4 COMPLEMENTon 01-09 Complement C3, Serum 143 mg/dL Normal 82-167 [facility] Comment on above: Performed By: #### C ASA, LIVER #### [facility] [address] [place] [address] [address] Meron Obando Complement C4, Serum 44 mg/dL Critically high 12-38 [facility] Comment on above: Performed By: #### C ASA, LIVER #### [facility] [address] [place] [address] [address] Meron Obando COMPLEMENT TOTAL (CH50)on Complement, Total (CH50) >60 Normal >41 [facility] Comment on above: Result Comment: Age Male Female 1 - 30 days Not Estab. Not Estab. 31 days - 6 months >32 >20 7 months - 17 years >39 >39 >17 years >41 >41 NOTE: The adult ( >17 years ) reference interval range is used to flag abnormals on this report. If the patient is 17 years old or younger, use the table above to determine out of range values. Performed By: #### S EDR #### [facility] [address] [place] [address] [address] Meron Obando CRPon 01-08-2022 CRP [Mass/Vol] mg/L Normal <=1.0 [facility] Comment on above: Performed By: #### L IVER, CRP #### [facility] [address] [place] [address] [address] Meron Obando LIVER PROFILEon 01-08-2022 Albumin [Mass/Vol] 3.6 g/dL Normal 3.4-5.0 [facility] Comment on above: Performed By: #### L IVER, CRP #### [facility] [address] [place] [address] [address] Meron Obando Albumin/Globulin [Mass ratio] 1.0 {ratio} Normal [facility] Comment on above: Performed By: #### L IVER, CRP #### [facility] [address] [place] [address] Dr. Meron Obando ALP [Catalytic activity/Vol] 127 U/L Critically high 46-116 [facility] Comment on above: Performed By: #### L IVER, CRP #### [facility] [address] [place] [address] Dr. Meron Obando ALT [Catalytic activity/Vol] 29 U/L Normal 14-59 [facility] Comment on above: Performed By: #### L IVER, CRP #### [facility] [address] [place] [address] Dr. Meron Obando AST [Catalytic activity/Vol] 30 U/L Normal 15-37 [facility] Comment on above: Performed By: #### L IVER, CRP #### [facility] [address] [place] [address] Dr. Meron Obando BILI, CONJUGATED 0.2 mg/dL Normal 0.0-0.2 [facility] Comment on above: Performed By: #### L IVER, CRP #### [facility] [address] [place] [address] Dr. Meron Obando Bilirubin [Mass/Vol] 0.8 mg/dL Normal 0.2-1.0 [facility] Comment on above: Performed By: #### L IVER, CRP #### [facility] [address] [place] [address] Dr. Meron Obando Globulin (S) [Mass/Vol] 3.7 g/dL Normal [facility] Comment on above: Performed By: #### L ADELA, CRP #### [facility] [address] [place] [address] Dr. Meron Obando Protein [Mass/Vol] 7.3 g/dL Normal 6.4-8.2 [facility] Comment on above: Performed By: #### L ADELA, CRP #### [facility] [address] [place] [address] Dr. Meron Obando SED RATE WESTERGRENon 2021 SED RATE 35 mm/hr Critically high <=30 [facility] Comment on above: Performed By: #### C ASA, LIVER #### [facility] [address] [place] [address] Dr. Meron Obando UA RANDOM W/MICROSCOPICon BACTERIA MODERATE Abnormal NONE SEEN [facility] Comment on above: Performed By: #### S EDR #### [facility] [address] [place] [address] Dr. Meron Obando Bilirubin Ql (U) Negative Normal NEGATIVE [facility] Comment on above: Performed By: #### S EDR #### [facility] [address] [place] [address] Dr. Meron Obando CAST NONE SEEN Normal NONE [facility] Comment on above: Performed By: #### S EDR #### [facility] [address] [place] [address] Dr. Meron Obando Clarity (U) CLOUDY Abnormal CLEAR [facility] Comment on above: Performed By: #### S EDR #### [facility] [address] [place] [address] Dr. Meron Obando Color (U) LT. YELLOW Normal YELLOW [facility] Comment on above: Performed By: #### S EDR #### [facility] [address] [place] [address] Dr. Meron Obando Crystals LM Nom (Urine sed) NONE SEEN Normal NONE SEEN [facility] Comment on above: Performed By: #### S EDR #### [facility] [address] [place] [address] [address] Meron Obando Epithelial cells LM Ql (Urine sed) FEW Abnormal NONE SEEN /RARE [facility] Comment on above: Performed By: #### S EDR #### [facility] [address] [place] [address] [address] Meron Obando Glucose Ql (U) Negative Normal NEGATIVE [facility] Comment on above: Performed By: #### S EDR #### [facility] [address] [place] [address] [address] Meron Obando Hemoglobin Ql (U) TRACE-INTACT Abnormal NEGATIVE [facility] Comment on above: Performed By: #### S EDR #### [facility] [address] [place] [address] Dr. Meron Obando Ketones Ql (U) Negative Normal NEGATIVE [facility] Comment on above: Performed By: #### S EDR #### [facility] [address] [place] [address] Dr. Meron Obando LEUKOCYTES LARGE Abnormal NEGATIVE [facility] Comment on above: Performed By: #### S EDR #### [facility] [address] [place] [address] [address] Meron Obando MUCOUS NONE SEEN Normal NONE SEEN [facility] Comment on above: Performed By: #### S EDR #### [facility] [address] [place] [address] Dr. Meron Obando Nitrite Ql (U) Negative Normal NEGATIVE [facility] Comment on above: Performed By: #### S EDR #### [facility] [address] [place] [address] Dr. Meron Obando pH (U) 6.0 [pH] Normal 5-9 [facility] Comment on above: Performed By: #### S EDR #### [facility] [address] [place] [address] Dr. Meron Obando RBC 2-5 Abnormal 0-2 [facility] Comment on above: Performed By: #### S EDR #### [facility] [address] [place] [address] Dr. Meron Obando SPEC GRAVITY 1.010 Normal 1.005-<=1.025 [facility] Comment on above: Performed By: #### S EDR #### [facility] [address] [place] [address] Dr. Meron Obando UA PROTEIN Negative Normal NEGATIVE/ TRACE [facility] Comment on above: Performed By: #### S EDR #### [facility] [address] [place] [address] Dr. Meron Obando Urobilinogen Qn (U) 0.2 {Opal'U}/dL Normal 0.2 - 1. 0 [facility] Comment on above: Performed By: #### S EDR #### [facility] [address] [place] [address] Dr. Meron Obando WBC (U) [#/Vol] /uL Abnormal NONE SEEN [facility] Comment on above: Performed By: #### S EDR #### [facility] [address] [place] [address] Dr. Meron Obando CULTURE URINEon 12-15-2021 CULTURE URINE Isolate 1 Escherichia coli >100,000 cfu/ml of ORGANISM 1 Escherichia coli ANTIBIOTIC M.I.C RX STATUS Ampicillin 8 S F Ampicillin/Sulbactam 4 S F Piperacillin/Tazobact am <=4 S F Cefazolin <=4 S F Ceftazidime <=1 S F Ceftriaxone <=1 S F Ertapenem <=0.5 S F Imipenem <=0.25 S F Amikacin <=2 S F Gentamicin <=1 S F Tobramycin <=1 S F Ciprofloxacin <=0.25 S F Levofloxacin <=0.12 S F Nitrofurantoin <=16 S F Trimethoprim/Sulfamet hoxazole <=20 S F Normal [facility] Comment on above: Performed By: #### C JESSICA BRAY #### [facility] [address] [place] [address] Dr. Meron Obando CBC AUTO DIFFon 12-10-2021 BASO # 0.1 103/ul Normal 0.0-0.1 [facility] Comment on above: Performed By: #### C JESSICA BRAY #### [facility] [address] [place] [address] Dr. Meron Obando Basophils/100 WBC (Bld) 0.7 % Normal 0.2-2.0 [facility] Comment on above: Performed By: #### C ASA, LIVER #### [facility] [address] [place] [address] Dr. Meron Obando EO # 0.2 103/ul Normal 0.0-0.7 [facility] Comment on above: Performed By: #### C ASA, LIVER #### [facility] [address] [place] [address] Dr. Meron Obando Eosinophils/100 WBC (Bld) 2.4 % Normal 0.9-7.0 [facility] Comment on above: Performed By: #### C ASA, LIVER #### [facility] [address] [place] [address] Dr. Meron Obando Erythrocyte distribution width (RBC) [Ratio] 15.3 % Critically high 11.0-15.0 [facility] Comment on above: Performed By: #### C ASA, LIVER #### [facility] [address] [place] [address] Dr. Meron Obando Hematocrit (Bld) [Volume fraction] 45.6 % Normal 36.0-48.0 [facility] Comment on above: Performed By: #### C ASA, LIVER #### [facility] [address] [place] [address] Dr. Meron Obando Hemoglobin (Bld) [Mass/Vol] 15.3 g/dL Normal 12.0-16.0 [facility] Comment on above: Performed By: #### C ASA, LIVER #### [facility] [address] [place] [address] Dr. Meron Obando IG # 0.03 10e3/ul Normal 0.00-0.03 [facility] Comment on above: Performed By: #### C ASA, LIVER #### [facility] [address] [place] [address] Dr. Meron Obando IG % 0.3 % Normal 0.0-0.5 [facility] Comment on above: Performed By: #### C ASA, LIVER #### [facility] [address] [place] [address] Dr. Meron Obando LYMPH # 1.6 103/ul Normal 1.2-3.8 [facility] Comment on above: Performed By: #### C ASA, LIVER #### [facility] [address] [place] [address] Dr. Meron Obando Lymphocytes/100 WBC (Bld) 17.0 % Critically low 20.5-60.0 [facility] Comment on above: Performed By: #### C ASA, LIVER #### [facility] [address] [place] [address] Dr. Meron Obando MANUAL DIFF REQ NO Normal [facility] Comment on above: Performed By: #### C ASA, LIVER #### [facility] [address] [place] [address] Dr. Meron Obando MCH (RBC) [Entitic mass] 31.4 pg Normal 26.7-34.0 [facility] Comment on above: Performed By: #### C ASA, LIVER #### [facility] [address] [place] [address] Dr. Meron Obando MCHC (RBC) [Mass/Vol] 33.6 g/dL Normal 29.9-35.2 [facility] Comment on above: Performed By: #### C ASA, LIVER #### [facility] [address] [place] [address] Dr. Meron Obando MCV (RBC) [Entitic vol] 93.6 fL Normal 81.0-99.0 [facility] Comment on above: Performed By: #### C ASA, LIVER #### [facility] [address] [place] [address] Dr. Meron Obando MONO # 1.0 103/ul Critically high 0.3-0.8 [facility] Comment on above: Performed By: #### C ASA, LIVER #### [facility] [address] [place] [address] Dr. Meron Obando Monocytes/100 WBC (Bld) 10.9 % Normal 1.7-12.0 [facility] Comment on above: Performed By: #### Ha BRAY, LIVER #### [facility] [address] [place] [address] Dr. Meron Obando NEUT # 6.3 103/ul Normal 1.4-6.5 [facility] Comment on above: Performed By: #### Ha BRAY, LIVER #### [facility] [address] [place] [address] Dr. Meron Obando Neutrophils/100 WBC (Bld) 68.7 % Normal 43.0-75.0 [facility] Comment on above: Performed By: #### Ha BRAY, LIVER #### [facility] [address] [place] [address] Dr. Meron Obando Platelet mean volume (Bld) [Entitic vol] 10.9 fL Normal 9.5-13.5 [facility] Comment on above: Performed By: #### Ha BRAY, LIVER #### [facility] [address] [place] [address] Dr. Meron Obando PLT 300 103/ul Normal 150-450 [facility] Comment on above: Performed By: #### Ha BRAY, LIVER #### [facility] [address] [place] [address] Dr. Meron Obando RBC 4.87 106/ul Normal 4.20-5.40 [facility] Comment on above: Performed By: #### Ha BRAY, LIVER #### [facility] [address] [place] [address] Dr. Meron Obando WBC 9.2 103/ul Normal 4.0-11.0 [facility] Comment on above: Performed By: #### Ha BRAY, LIVER #### [facility] [address] [place] [address] Dr. Meron Obando CREATININEon 12-10-2021 Creatinine [Mass/Vol] 0.96 mg/dL Normal 0.55-1.02 [facility] Comment on above: Performed By: #### Ha BRAY, LIVER #### [facility] [address] [place] [address] Dr. Meron Obando EGFR-AF NIGERIEN >60 Normal >=60 [facility] Comment on above: Performed By: #### C ASA, LIVER #### [facility] [address] [place] [address] Dr. Meron Obando EGFR-NON AF NIGERIEN 56 mL/min/1.73m2 Critically low >=60 [facility] Comment on above: Performed By: #### C ASA, LIVER #### [facility] [address] [place] [address] Dr. Meron Obando LIVER PROFILEon 12-10-2021 Albumin [Mass/Vol] 3.4 g/dL Normal 3.4-5.0 [facility] Comment on above: Performed By: #### C ASA, LIVER #### [facility] [address] [place] [address] Dr. Meron Obando Albumin/Globulin [Mass ratio] 0.9 {ratio} Normal [facility] Comment on above: Performed By: #### C ASA, LIVER #### [facility] [address] [place] [address] Dr. Meron Obando ALP [Catalytic activity/Vol] 149 U/L Critically high 46-116 [facility] Comment on above: Performed By: #### C ASA, LIVER #### [facility] [address] [place] [address] Dr. Meron Obando ALT [Catalytic activity/Vol] 36 U/L Normal 14-59 [facility] Comment on above: Performed By: #### C ASA, LIVER #### [facility] [address] [place] [address] Dr. Meron Obando AST [Catalytic activity/Vol] 40 U/L Critically high 15-37 [facility] Comment on above: Performed By: #### C ASA, LIVER #### [facility] [address] [place] [address] Dr. Meron Obando BILI, CONJUGATED 0.2 mg/dL Normal 0.0-0.2 [facility] Comment on above: Performed By: #### C ASA, LIVER #### [facility] [address] [address] [address] Meron Obando Bilirubin [Mass/Vol] 0.5 mg/dL Normal 0.2-1.0 [facility] Comment on above: Performed By: #### C ASA, LIVER #### [facility] [address] [address] [address] Meron Obando Globulin (S) [Mass/Vol] 3.7 g/dL Normal [facility] Comment on above: Performed By: #### C ASA, LIVER #### [facility] [address] [address] [address] Meron Obando Protein [Mass/Vol] 7.1 g/dL Normal 6.4-8.2 [facility] Comment on above: Performed By: #### C ASA, LIVER #### [facility] [address] [place] [address] Dr. Meron Obando SED RATE [facility] 2021 SED RATE 20 mm/hr Normal <=30 [facility] Comment on above: Performed By: #### S EDR #### [facility] [address] [place] [address] Dr. Meron Obando XR chest 2V*on 12-03-2021 XR chest 2V* [facility] [place] [address] [place] [address] XRay Report Signed Patient: Angelika Goncalves MR#: [id number] : 1940 Acct:[id number] Age/Sex: 81 / F ADM Date: 12/03/21 Loc: ICXD Room: Type: [facility] Attending Dr: Jan Solares MD Copies to: Jan Solares MD Ordering Provider: Jan Solares MD Date of Service: 12/03/21 XR/XR chest 2V*: RHEUMATOID ARTHRITIS IMMUNOSUPPRESSION PA AND LATERAL CHEST: CLINICAL HISTORY: Rheumatoid arthritis with immunosuppression medication COMPARISON: None Median sternotomy wires are noted. The lungs show mild hyperinflation. There is no focal parenchymal consolidation, effusion or pneumothorax. The heart is normal size. The aorta is mildly tortuous. There is a large hiatal hernia. There is no vascular congestion. The visualized bony structures are osteopenic. There is thoracolumbar scoliotic curvature and endplate spurring. XR/XR chest 2V* IMPRESSION: NO ACUTE CARDIOPULMONARY ABNORMALITY. Impression dictated by: Rosa Maria Ansari M.D.12/03/2021 2:07 PM Dictation Location: [place] [address] Transcribed By: JAMES 12/03/211406 Dictated By: Rosa Maria Ansari MD 12/03/21 140 Signed By: 12/03/21 140 Normal [facility] CBC AUTO DIFFon 11-25-2021 BASO # 0.1 103/ul Normal 0.0-0.1 [facility] Comment on above: Performed By: #### C ASA, LIVER #### [facility] [address] [place] [address] Dr. Meron Obando Basophils/100 WBC (Bld) 1.1 % Normal 0.2-2.0 [facility] Comment on above: Performed By: #### Ha BRAY, LIVER #### [facility] [address] [place] [address] [address] Meron Obando EO # 0.2 103/ul Normal 0.0-0.7 [facility] Comment on above: Performed By: #### Ha BRAY, LIVER #### [facility] [address] [place] [address] Dr. Meron Obando Eosinophils/100 WBC (Bld) 2.4 % Normal 0.9-7.0 [facility] Comment on above: Performed By: #### Ha BRAY, LIVER #### [facility] [address] [place] [address] [address] Meron Obando Erythrocyte distribution width (RBC) [Ratio] 15.1 % Critically high 11.0-15.0 [facility] Comment on above: Performed By: #### Ha BRAY, LIVER #### [facility] [address] [place] [address] Dr. Meron Obando Hematocrit (Bld) [Volume fraction] 48.0 % Normal 36.0-48.0 [facility] Comment on above: Performed By: #### C ASA, LIVER #### [facility] [address] [address] [address] Meron Obando Hemoglobin (Bld) [Mass/Vol] 15.5 g/dL Normal 12.0-16.0 [facility] Comment on above: Performed By: #### C ASA, LIVER #### [facility] [address] [address] [address] Meron Obando IG # 0.03 10e3/ul Normal 0.00-0.03 [facility] Comment on above: Performed By: #### C ASA, LIVER #### [facility] [address] [place] [address] Dr. Meron Obando IG % 0.3 % Normal 0.0-0.5 [facility] Comment on above: Performed By: #### C ASA, LIVER #### [facility] [address] [place] [address] Dr. Meron Obando LYMPH # 1.7 103/ul Normal 1.2-3.8 [facility] Comment on above: Performed By: #### C ASA, LIVER #### [facility] [address] [place] [address] Dr. Meron Obando Lymphocytes/100 WBC (Bld) 18.3 % Critically low 20.5-60.0 [facility] Comment on above: Performed By: #### C ASA, LIVER #### [facility] [address] [place] [address] Dr. Meron Oabndo MANUAL DIFF REQ NO Normal [facility] Comment on above: Performed By: #### C ASA, LIVER #### [facility] [address] [place] [address] Dr. Meron Obando MCH (RBC) [Entitic mass] 30.7 pg Normal 26.7-34.0 [facility] Comment on above: Performed By: #### C ASA, LIVER #### [facility] [address] [place] [address] Dr. Meron Obando MCHC (RBC) [Mass/Vol] 32.3 g/dL Normal 29.9-35.2 [facility] Comment on above: Performed By: #### C ASA, LIVER #### [facility] [address] [place] [address] Dr. Meron Obando MCV (RBC) [Entitic vol] 95.0 fL Normal 81.0-99.0 [facility] Comment on above: Performed By: #### C ASA, LIVER #### [facility] [address] [place] [address] Dr. Meron Obando MONO # 1.0 103/ul Critically high 0.3-0.8 [facility] Comment on above: Performed By: #### C ASA, LIVER #### [facility] [address] [place] [address] Dr. Meron Obando Monocytes/100 WBC (Bld) 10.4 % Normal 1.7-12.0 [facility] Comment on above: Performed By: #### C ASA, LIVER #### [facility] [address] [place] [address] Dr. Merno Obando NEUT # 6.2 103/ul Normal 1.4-6.5 [facility] Comment on above: Performed By: #### C ASA, LIVER #### [facility] [address] [place] [address] Dr. Meron Obando Neutrophils/100 WBC (Bld) 67.5 % Normal 43.0-75.0 [facility] Comment on above: Performed By: #### C ASA, LIVER #### [facility] [address] [place] [address] Dr. Meron Obando Platelet mean volume (Bld) [Entitic vol] 10.8 fL Normal 9.5-13.5 [facility] Comment on above: Performed By: #### C ASA, LIVER #### [facility] [address] [place] [address] Dr. Meron Obando PLT 295 103/ul Normal 150-450 [facility] Comment on above: Performed By: #### C ASA, LIVER #### [facility] [address] [place] [address] Dr. Meron Obando RBC 5.05 106/ul Normal 4.20-5.40 [facility] Comment on above: Performed By: #### C ASA LIVER #### [facility] [address] [place] [address] Dr. Meron Obando WBC 9.2 103/ul Normal 4.0-11.0 [facility] Comment on above: Performed By: #### C ASA LIVER #### [facility] [address] [place] [address] Dr. Meron Obando CREATININEon 11-25-2021 Creatinine [Mass/Vol] 1.03 mg/dL Critically high 0.55-1.02 [facility] Comment on above: Performed By: #### S EDR #### [facility] [address] [place] [address] Dr. Meron Obando EGFR-AF NIGERIEN 39 mL/min/1.73m2 Critically low >=60 [facility] Comment on above: Performed By: #### S EDR #### [facility] [address] [place] [address] Dr. Meron Obando EGFR-NON AF NIGERIEN 32 mL/min/1.73m2 Critically low >=60 [facility] Comment on above: Performed By: #### S EDR #### [facility] [address] [place] [address] Dr. Meron Obando LIVER PROFILEon 11-25-2021 Albumin [Mass/Vol] 3.5 g/dL Normal 3.4-5.0 [facility] Comment on above: Performed By: #### S EDR #### [facility] [address] [place] [address] Dr. Meron Obando Albumin/Globulin [Mass ratio] 1.0 {ratio} Normal [facility] Comment on above: Performed By: #### S EDR #### [facility] [address] [place] [address] Dr. Meron Obando ALP [Catalytic activity/Vol] 135 U/L Critically high 46-116 [facility] Comment on above: Performed By: #### S EDR #### [facility] [address] [place], [place] [id number] Dr. Meron Obando ALT [Catalytic activity/Vol] 41 U/L Normal 14-59 [facility] Comment on above: Performed By: #### S EDR #### [facility] [address] [address] [address] Meron Obando AST [Catalytic activity/Vol] 39 U/L Critically high 15-37 [facility] Comment on above: Performed By: #### S EDR #### [facility] [address] [address] [address] Meron Obando BILI, CONJUGATED 0.1 mg/dL Normal 0.0-0.2 [facility] Comment on above: Performed By: #### S EDR #### [facility] [address] [place] [address] Dr. Meron Obando Bilirubin [Mass/Vol] 0.5 mg/dL Normal 0.2-1.0 [facility] Comment on above: Performed By: #### S EDR #### [facility] [address] [place] [address] Dr. Meron Obando Globulin (S) [Mass/Vol] 3.5 g/dL Normal [facility] Comment on above: Performed By: #### S EDR #### [facility] [address] [place] [address] Dr. Meron Obando Protein [Mass/Vol] 7.0 g/dL Normal 6.4-8.2 [facility] Comment on above: Performed By: #### S EDR #### [facility] [address] [place] [address] Dr. Meron Obando SED RATE [facility] 2021 SED RATE 11 mm/hr Normal <=30 [facility] Comment on above: Performed By: #### S EDR #### [facility] [address] [place] [address] Dr. Meron Obando CBC AUTO DIFFon 11-13-2021 BASO # 0.1 103/ul Normal 0.0-0.1 [facility] Comment on above: Performed By: #### C BC #### [facility] [address] [place] [address] Dr. Meron Obando Basophils/100 WBC (Bld) 0.8 % Normal 0.2-2.0 [facility] Comment on above: Performed By: #### C BC #### [facility] [address] [place] [address] Dr. Meron Obando EO # 0.2 103/ul Normal 0.0-0.7 [facility] Comment on above: Performed By: #### C BC #### [facility] [address] [place] [address] Dr. Meron Obando Eosinophils/100 WBC (Bld) 1.9 % Normal 0.9-7.0 [facility] Comment on above: Performed By: #### C BC #### [facility] [address] [place] [address] Dr. Meron Obando Erythrocyte distribution width (RBC) [Ratio] 14.4 % Normal 11.0-15.0 [facility] Comment on above: Performed By: #### C BC #### [facility] [address] [place] [address] Dr. Meron Obando Hematocrit (Bld) [Volume fraction] 48.9 % Critically high 36.0-48.0 [facility] Comment on above: Performed By: #### C BC #### [facility] [address] [place] [address] Dr. Meron Obando Hemoglobin (Bld) [Mass/Vol] 16.0 g/dL Normal 12.0-16.0 [facility] Comment on above: Performed By: #### C BC #### [facility] [address] [place] [address] Dr. Meron Obando IG # 0.03 10e3/ul Normal 0.00-0.03 [facility] Comment on above: Performed By: #### C BC #### [facility] [address] [place] [address] Dr. Meron Obando IG % 0.3 % Normal 0.0-0.5 [facility] Comment on above: Performed By: #### C BC #### [facility] [address] [place] [address] Dr. Meron Obando LYMPH # 2.5 103/ul Normal 1.2-3.8 [facility] Comment on above: Performed By: #### C BC #### [facility] [address] [place] [address] Dr. Meron Obando Lymphocytes/100 WBC (Bld) 24.8 % Normal 20.5-60.0 [facility] Comment on above: Performed By: #### C BC #### [facility] [address] [place] [address] Dr. Meron Obando MANUAL DIFF REQ NO Normal [facility] Comment on above: Performed By: #### C BC #### [facility] [address] [place] [address] Dr. Meron Obando MCH (RBC) [Entitic mass] 30.9 pg Normal 26.7-34.0 [facility] Comment on above: Performed By: #### C BC #### [facility] [address] [place] [address] Dr. Meron Obando MCHC (RBC) [Mass/Vol] 32.7 g/dL Normal 29.9-35.2 [facility] Comment on above: Performed By: #### C BC #### [facility] [address] [place] [address] Dr. Meron Obando MCV (RBC) [Entitic vol] 94.4 fL Normal 81.0-99.0 [facility] Comment on above: Performed By: #### C BC #### [facility] [address] [place] [address] Dr. eMron Obando MONO # 0.8 103/ul Normal 0.3-0.8 [facility] Comment on above: Performed By: #### C BC #### [facility] [address] [place] [address] Dr. Meron Obando Monocytes/100 WBC (Bld) 7.7 % Normal 1.7-12.0 [facility] Comment on above: Performed By: #### C BC #### [facility] [address] [place] [address] Dr. Meron Obando NEUT # 6.4 103/ul Normal 1.4-6.5 [facility] Comment on above: Performed By: #### C BC #### [facility] [address] [place] [address] Dr. Meron Obando Neutrophils/100 WBC (Bld) 64.5 % Normal 43.0-75.0 [facility] Comment on above: Performed By: #### C BC #### [facility] [address] [place] [address] Dr. Meron Obando Platelet mean volume (Bld) [Entitic vol] 11.1 fL Normal 9.5-13.5 [facility] Comment on above: Performed By: #### C BC #### [facility] [address] [place] [address] Dr. Meron Obando PLT 306 103/ul Normal 150-450 [facility] Comment on above: Performed By: #### C BC #### [facility] [address] [place] [address] Dr. Meron Obando RBC 5.18 106/ul Normal 4.20-5.40 [facility] Comment on above: Performed By: #### C BC #### [facility] [address] [place] [address] Dr. Meron Obando WBC 9.9 103/ul Normal 4.0-11.0 [facility] Comment on above: Performed By: #### C BC #### [facility] [address] [place] [address] Dr. Meron Obando CREATININEon 11-13-2021 Creatinine [Mass/Vol] 1.01 mg/dL Normal 0.55-1.02 [facility] Comment on above: Performed By: #### C ASA LIVER #### [facility] [address] [place] [address] Dr. Meron Obando EGFR-AF NIGERIEN >60 Normal >=60 [facility] Comment on above: Performed By: #### C ASA LIVER #### [facility] [address] [place] [address] Dr. Meron Obando EGFR-NON AF NIGERIEN 53 mL/min/1.73m2 Critically low >=60 [facility] Comment on above: Performed By: #### C ASA, LIVER #### [facility] [address] [address] [address] Meron Obando LIVER PROFILEon 11-13-2021 Albumin [Mass/Vol] 3.4 g/dL Normal 3.4-5.0 [facility] Comment on above: Performed By: #### S EDR #### [facility] [address] [place] [address] [address] Meron Obando Albumin/Globulin [Mass ratio] 0.9 {ratio} Normal [facility] Comment on above: Performed By: #### S EDR #### [facility] [address] [address] [address] Meron Obando ALP [Catalytic activity/Vol] 126 U/L Critically high 46-116 [facility] Comment on above: Performed By: #### S EDR #### [facility] [address] [address] [address] Meron Obando ALT [Catalytic activity/Vol] 58 U/L Normal 14-59 [facility] Comment on above: Performed By: #### S EDR #### [facility] [address] [address] [address] Meron Obando AST [Catalytic activity/Vol] 55 U/L Critically high 15-37 [facility] Comment on above: Performed By: #### S EDR #### [facility] [address] [address] [address] Meron Obando BILI, CONJUGATED 0.1 mg/dL Normal 0.0-0.2 [facility] Comment on above: Performed By: #### S EDR #### [facility] [address] [place] [address] Dr. Meron Obando Bilirubin [Mass/Vol] 0.5 mg/dL Normal 0.2-1.0 [facility] Comment on above: Performed By: #### S EDR #### [facility] [address] [address] [address] Meron Obando Globulin (S) [Mass/Vol] 3.6 g/dL Normal [facility] Comment on above: Performed By: #### S EDR #### [facility] [address] [place] [address] Dr. Meron Obando Protein [Mass/Vol] 7.0 g/dL Normal 6.4-8.2 [facility] Comment on above: Performed By: #### S EDR #### [facility] [address] [place] [address] Dr. Meron Obando SED RATE WESTERGRENon 2021 SED RATE 13 mm/hr Normal <=30 [facility] Comment on above: Performed By: #### S EDR #### [facility] [address] [place] [address] Dr. Merno Obando CBC AUTO DIFFon 10-28-2021 BASO # 0.1 103/ul Normal 0.0-0.1 [facility] Comment on above: Performed By: #### C BC #### [facility] [address] [place] [address] Dr. Meron Obando Basophils/100 WBC (Bld) 1.1 % Normal 0.2-2.0 [facility] Comment on above: Performed By: #### C BC #### [facility] [address] [place] [address] Dr. Meron Obando EO # 0.2 103/ul Normal 0.0-0.7 [facility] Comment on above: Performed By: #### C BC #### [facility] [address] [place] [address] Dr. Meron Obando Eosinophils/100 WBC (Bld) 2.3 % Normal 0.9-7.0 [facility] Comment on above: Performed By: #### C BC #### [facility] [address] [place] [address] Dr. Meron Obando Erythrocyte distribution width (RBC) [Ratio] 13.8 % Normal 11.0-15.0 [facility] Comment on above: Performed By: #### C BC #### [facility] [address] [place] [address] Dr. Meron Obando Hematocrit (Bld) [Volume fraction] 46.7 % Normal 36.0-48.0 [facility] Comment on above: Performed By: #### C BC #### [facility] [address] [place] [address] Dr. Meron Obando Hemoglobin (Bld) [Mass/Vol] 15.1 g/dL Normal 12.0-16.0 [facility] Comment on above: Performed By: #### C BC #### [facility] [address] [place] [address] Dr. Meron Obando IG # 0.04 10e3/ul Critically high 0.00-0.03 [facility] Comment on above: Performed By: #### C BC #### [facility] [address] [place] [address] Dr. Meron Obando IG % 0.4 % Normal 0.0-0.5 [facility] Comment on above: Performed By: #### C BC #### [facility] [address] [place] [address] Dr. Meron Obando LYMPH # 1.8 103/ul Normal 1.2-3.8 [facility] Comment on above: Performed By: #### C BC #### [facility] [address] [place] [address] Dr. Meron Obando Lymphocytes/100 WBC (Bld) 18.7 % Critically low 20.5-60.0 [facility] Comment on above: Performed By: #### C BC #### [facility] [address] [place] [address] Dr. Meron Obando MANUAL DIFF REQ NO Normal [facility] Comment on above: Performed By: #### C BC #### [facility] [address] [place] [address] Dr. Meron Obando MCH (RBC) [Entitic mass] 30.5 pg Normal 26.7-34.0 [facility] Comment on above: Performed By: #### C BC #### [facility] [address] [place] [address] Dr. Meron Obando MCHC (RBC) [Mass/Vol] 32.3 g/dL Normal 29.9-35.2 [facility] Comment on above: Performed By: #### C BC #### [facility] [address] [place] [address] Dr. Meron Obando MCV (RBC) [Entitic vol] 94.3 fL Normal 81.0-99.0 [facility] Comment on above: Performed By: #### C BC #### [facility] [address] [place] [address] Dr. Meron Obando MONO # 1.1 103/ul Critically high 0.3-0.8 [facility] Comment on above: Performed By: #### C BC #### [facility] [address] [place] [address] Dr. Meron Obando Monocytes/100 WBC (Bld) 11.0 % Normal 1.7-12.0 [facility] Comment on above: Performed By: #### C BC #### [facility] [address] [place] [address] Dr. Meron Obando NEUT # 6.4 103/ul Normal 1.4-6.5 [facility] Comment on above: Performed By: #### C BC #### [facility] [address] [place] [address] Dr. Meron Obando Neutrophils/100 WBC (Bld) 66.5 % Normal 43.0-75.0 [facility] Comment on above: Performed By: #### C BC #### [facility] [address] [place] [address] Dr. Meron Obando Platelet mean volume (Bld) [Entitic vol] 11.1 fL Normal 9.5-13.5 [facility] Comment on above: Performed By: #### C BC #### [facility] [address] [place] [address] Dr. Meron Obando PLT 249 103/ul Normal 150-450 [facility] Comment on above: Performed By: #### C BC #### [facility] [address] [place] [address] Dr. Meron Obando RBC 4.95 106/ul Normal 4.20-5.40 [facility] Comment on above: Performed By: #### C BC #### [facility] [address] [place] [address] Dr. Meron Obando WBC 9.7 103/ul Normal 4.0-11.0 [facility] Comment on above: Performed By: #### C BC #### [facility] [address] [place] [address] Dr. Meron Obando CREATININEon 10-28-2021 Creatinine [Mass/Vol] 0.98 mg/dL Normal 0.55-1.02 [facility] Comment on above: Performed By: #### C ASA, LIVER #### [facility] [address] [place] [address] Dr. Meron Obando EGFR-AF NIGERIEN >60 Normal >=60 [facility] Comment on above: Performed By: #### C ASA, LIVER #### [facility] [address] [place] [address] Dr. Meron Obando EGFR-NON AF NIGERIEN 54 mL/min/1.73m2 Critically low >=60 [facility] Comment on above: Performed By: #### C ASA, LIVER #### [facility] [address] [place] [address] Dr. Meron Obando LIVER PROFILEon 10-28-2021 Albumin [Mass/Vol] 3.3 g/dL Critically low 3.4-5.0 [facility] Comment on above: Performed By: #### C ASA, LIVER #### [facility] [address] [place] [address] Dr. Meron Obando Albumin/Globulin [Mass ratio] 0.9 {ratio} Normal [facility] Comment on above: Performed By: #### C ASA, LIVER #### [facility] [address] [place] [address] Dr. Meron Obando ALP [Catalytic activity/Vol] 127 U/L Critically high 46-116 [facility] Comment on above: Performed By: #### C ASA, LIVER #### [facility] [address] [place] [address] Dr. Meron Obando ALT [Catalytic activity/Vol] 38 U/L Normal 14-59 [facility] Comment on above: Performed By: #### C ASA, LIVER #### [facility] [address] [place] [address] Dr. Meron Obando AST [Catalytic activity/Vol] 33 U/L Normal 15-37 [facility] Comment on above: Performed By: #### C ASA, LIVER #### [facility] [address] [place] [address] Dr. Meron Obando BILI, CONJUGATED 0.1 mg/dL Normal 0.0-0.2 [facility] Comment on above: Performed By: #### C ASA, LIVER #### [facility] [address] [place] [address] Dr. Meron Obando Bilirubin [Mass/Vol] 0.3 mg/dL Normal 0.2-1.0 [facility] Comment on above: Performed By: #### C ASA, LIVER #### [facility] [address] [place] [address] Dr. Meron Obando Globulin (S) [Mass/Vol] 3.7 g/dL Normal [facility] Comment on above: Performed By: #### C ASA, LIVER #### [facility] [address] [place] [address] Dr. Meron Obando Protein [Mass/Vol] 7.0 g/dL Normal 6.4-8.2 [facility] Comment on above: Performed By: #### C ASA, LIVER #### [facility] [address] [place] [address] Dr. [facility] mm/hr Normal <=30 [facility] Comment on above: Performed By: #### S EDR #### [facility] [address] [place] [address] Dr. Meron Obando Hepatitis B Core Antibodyon 10-09-2021 Hepatitis B Core Antibody Negative Normal Negative [facility] Comment on above: Result Comment: Perf ormed at: CB - [facility] [address] [id number] Teaching Young: Guanaco Cui PhD, Phone: [phone] PERFORMED BY: [facility] [address] [place] [address] PATHOLOGIST STRATEGIC MARKETING LEADER TOBIAS SCOTT M.D. Performed By: #### H BCAB #### [facility] , No Panel InformationOrdered By: Jan Solares on 10-09-2021 Hepatitis B Core Total Antibody Negative Negative [facility] Comment on above: Performed at: [address] [id number] Teaching Young: Guanaco Cui PhD, Phone: [phone] Q - CULTURE,URINE,ROUTINEon 05-07-2021 CULTURE, URINE, ROUTINE SEE NOTE Normal [facility] Account Financial Manager Comment on above: Order Comment: [facility] performed at: [employer], [address] [place] [address], [address] [place] [address], [id number], Skirt Clipper: Harsh Hopkins MD [facility] Collection Date/Time: [facility] Results Received Date/Time: [facility] Reported Date/Time: Result Comment: CULT URE, URINE, ROUTINE Micro Number: [id number] Test Status: Final Specimen Source: Urine Specimen Quality: Adequate Result: No Growth Performed By: #### 6 [id number] #### [facility] Default [address] [place] [address] Vital Signs Date Time Vital Sign Value Performing Clinician Rachel wilkerson 04-10-2023 14:14050 Body height 152.4 cm Jan Smith MD Work Phone: [employer] 04-10-2023 14:14050 Body mass index (BMI) [Ratio] 21.87 kg/m2 Jan Smith MD Work Phone: [employer] 04-10-2023 14:14-050 Body weight 50.8 kg Jan Smith MD Work Phone: [facility] [employer] 04-10-2023 14:14-050 Diastolic blood pressure 80 mm[Hg] Jan Smith MD Work Phone: [facility] 04-10-2023 14:14-0500 Heart rate 84 /min Jan Smith MD Work Phone: [facility] 04-10-2023 14:14-0500 SaO2% (BldA) [Mass fraction] 91 % Jan Smith MD Work Phone: [facility] [employer] 04-10-2023 14:14-0500 Systolic blood pressure 130 mm[Hg] Jan Smith MD Work Phone: [facility] [employer] Encounters Encounter Date Encounter Type Care Provider Facility Start: 05-13-2023 End: 05-14-2023 ambulatory JAN Booker [facility] Start: 04-10-2023 End: 04-10-2023 ambulatory VICTORIA Jonathon LUIS [facility] Start: 04-10-2023 End: 04-10-2023 Office outpatient visit 25 minutes Jan Smith MD Work Phone: [facility] Comment on above: 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); Dyslipidemia; Primary hypertension Start: 04-09-2023 Telephone encounter Toyin Bass CMA [facility] Start: 05-28-2022 End: 05-28-2022 ambulatory Jan Solares Facility:[facility] Start: 03-25-2022 End: 03-25-[address] BOONE EWING Facility: Start: 02-19-2022 End: 02-19-2022 ambulatory Jan Chenjasperdylan Facility:[facility] Start: 02-12-2022 End: 02-12-2022 ambulatory Jan Chenjasperdylan Facility:[facility] Start: 02-12-2022 End: 02-12-2022 ambulatory DO Carin Brady Work Phone: [facility] Work Phone: Start: 02-12-2022 End: 02-12-2022 Patient encounter procedure DO Carin Brady Work Phone: [facility] [address] Start: 02-10-2022 End: 02-10-[address] BOONE EWING Facility:[facility] Start: 01-08-2022 End: 01-09-[address] JAN SOLARES Facility:[facility] Start: 12-12-2021 End: 12-12-[address] BOONE EWING Facility:[facility] Start: 12-10-2021 End: 01-04-[address] JAN SOLARES Facility:[facility] Start: 12-03-2021 End: 12-03-2021 ambulatory Jan Solares Facility:[facility] Start: 12-03-2021 End: 12-03-2021 Patient encounter procedure DO Carin Brasherefe Work Phone: [facility] [address] Start: 11-13-2021 End: 12-04-[address] JAN SOLARES Facility:[facility] Start: 10-28-2021 End: 11-01-[address] JAN SOLARES Facility:[facility] Start: 10-09-2021 End: 10-09-2021 ambulatory Jan Solares Facility:[facility] Start: 10-09-2021 End: 10-09-2021 Patient encounter procedure DO Carin Brady Work Phone: [facility] [address] Procedures Date Procedure Procedure Detail Performing Clinician Start: 04-10-2023 Follow-up visit Follow-up JAN SMITH Start: 04-10-2023 Ecg routine ecg w/le ast 12 lds w/i&r Jan Smith MD Work Phone: Start: 12-03-2021 Plain chest X-ray DO Re jose eduardorochelle BrasherJose Antonio Work Phone: Start: 01-07-2021 Adult depression screening assessment Toyin Bass [employer] ENGINEER Start: 08-30-2020 H/O: surgery S/P nasal septoplasty Leighton Bass [employer] ENGINEER Start: 11-26-2018 History of coronary artery bypass grafting History of coronary artery bypass graft x 2 Toyin Bass [employer] ENGINEER History of coronary artery bypass grafting History of coronary artery bypass graft x 2 Jan Smith MD Work Phone: Plan of Treatment Date Care Activity Detail Author Start: 04-10-2024 Adult BMI Screening Adult BMI Screening [facility] Start: 04-10-2024 Tobacco Screening Tobacco Screening [facility] Start: 08-08-2023 Adult BMI Screening Adult BMI Screening [facility] Start: 04-10-2023 End: 04-10-2023 Patient encounter procedure 04/10/2023 2:30 PM EST Office Visit [facility] [address] [place] [address] Jan Smith MD [address] [place] [address] [facility] Start: 12-23-2022 Tobacco Screening Tobacco Screening [facility] Start: 01-07-2022 Depression Screening Depression Screening [facility] Start: 02-17-2020 Administration of varicella zoster vaccine Zoster (Shingles) Vaccine (3 of 3) [facility] Start: 2005 Fall Risk Screening Fall Risk Screening [facility] Start: 1959 DTaP,Tdap and Td Vaccines (1 - Tdap) DTaP,Tdap and Td Vaccines (1 - Tdap) [facility] Start: 1940 Medicare Annual Wellness Visit Medicare Annual Wellness Visit [facility] Hepatitis B core ant ibody [facility] Work Phone: Immunizations Immunization Date Immunization Notes Care Provider Fa cility 05-24-2020 COVID-19, mRNA, LNP- S, PF, 100mcg/0.5mL Dose Toyin Bass [facility] 04-27-2020 COVID-19, mRNA, LNP- S, PF, 100mcg/0.5mL Dose Toyin Bass [facility] 12-23-2019 zoster vaccine, unspecified formulation Toyin Bass [facility] Payers Date Payer Category Payer Self-pay [id number] 2011 Unknown [id number] 2005 Medicare MEDICARE MEDICAR E PART A & B [id number] 2005-Present [phone] [address] [place] [address] [id number] 1959 Medicare [id number] 1959 Unknown [id number] 1940 Unknown [id number] 1940 Unknown [id number] [id number] 1940 Unknown [id number] [id number] 1940 Unknown [id number] [id number] 1940 Unknown [id number] [id number] 1940 Unknown [id number] [id number] 1940 Unknown [id number] [id number] 1940 Unknown [id number] [id number] 6 1940 Unknown [id number] [id number] 6 Unknown [id number] [id number] Unknown [id number] [id number] Unknown [id number] [id number] Unknown [id number] [id number] Unknown [id number] Social History Date Type Detail Facility Tobacco smoking stat us NHIS Unknown if ever smoked [facility] Work Phone: Start: 1940 Sex Assigned At Female F [facility] Start: 04-16-2017 End: 04-10-2023 Tobacco smoking status NHIS Never smoked tobacco [facility] Work Phone: Start: 04-16-2017 End: 04-10-2023 Tobacco use and exposure Smokeless tobacco non-user [facility] Start: 12-23-2021 End: 04-10-2023 Alcohol intake Current drinker of alcohol (finding) [facility] Start: 11-25-2018 End: 04-24-2020 History of Social function [facility] Start: 11-25-2018 End: 04-24-2020 Social connection and isolation panel [facility] Frequency of Communi cation with Friends and Family More than three times a week [facility] Start: 11-25-2018 Education 12 [facility] Start: 10-21-2019 Alcohol Comment rarely [facility] History of Present illness Narrative 04-10-2023 Jan Smith MD - 04/10/2023 2:30 PM EST Note Date & Type Note Facility 04-10-2023 History of Present illness Narrative Angelika Goncalves Date of visit: 04/10/2023 Date of : 1940 Age: 83 y.o. Patient Active Problem List Diagnosis Cervical spondylosis without myelopathy Iron deficiency anemia Coronary artery disease involving pauma coronary artery of pauma heart History of coronary artery bypass graft x 2 Dyslipidemia Epistaxis S/P nasal septoplasty Allergies Allergen Reactions Amoxicillin Diarrhea Current Outpatient Medications Medication Sig Dispense Refill acetaminophen (TYLENOL ARTHRITIS) 650 mg 8 hr tablet Take 1 tablet (650 mg total) by mouth every 8 (eight) hours as needed for pain. alendronate (FOSAMAX) 70 mg tablet Take 1 tablet (70 mg total) by mouth once a week. 1 amLODIPine (NORVASC) 5 mg tablet Take 1 tablet (5 mg total) by mouth in the morning. 1 aspirin 81 mg Take 1 tablet (81 mg total) by mouth in the morning. 30 tablet 11 atorvastatin (LIPITOR) 80 mg tablet Take 1 tablet (80 mg total) by mouth in the morning. 1 calcium carbonate-vitamin D3 (OSCAL 500 + D) 500 mg(1,250mg) -200 units per tablet Take 1 tablet by mouth in the morning. cholecalciferol 1,000 units tablet Take 1 tablet (1,000 Units total) by mouth in the morning. cranberry 500 mg capsule Take by mouth 2 (two) times a day. famotidine (PEPCID) 20 mg tablet Take 1 tablet (20 mg total) by mouth as needed. 3 leflunomide (ARAVA) 20 mg tablet Take 1 tablet (20 mg total) by mouth in the morning. levothyroxine (SYNTHROID, LEVOTHROID) 25 MCG tablet Take 1 tablet (25 mcg total) by mouth once daily. 3 metoprolol succinate XL (TOPROL XL) 100 mg 24 hr tablet TAKE 1 TABLET BY MOUTH IN THE MORNING. NEED APPT FOR ANY FURTHER REFILLS. 90 tablet 3 stgpwxoc-qsza-WN-calcium &mins (THERAGRAN-M) 9 mg iron-400 mcg tablet Take 1 tablet by mouth in the morning. oxybutynin XL (DITROPAN-XL) 10 mg 24 hr tablet Take 1 tablet (10 mg total) by mouth in the morning. diclofenac sodium (VOLTAREN) 1 % gel Apply 2 g topically 3 (three) times a day as needed. mupirocin (BACTROBAN) 2 % ointment Applied intranasally bilaterally 2 times daily 15 g 0 predniSONE (DELTASONE) 5 mg tablet Take 0.5 tablets (2.5 mg total) by mouth. Takes 1/2 tab on Mondays, Wednesdays, and Fridays AND other days a whole tablet 5 predniSONE (DELTASONE) 5 mg tablet Take 1 tablet (5 mg total) by mouth every other day. Full dose , , Sat, Sun (2.5mg Thu, Thu, Thu) sod qffrp-yeaqak-tjndat bottle (NEILMED SINUS RINSE COMPLETE) packet with rinse device nasal solution Administer 1 packet into each nostril 2 (two) times a day. 60 packet 0 No current facility-administered medications for this visit. Chief Complaint Patient presents with Follow-up EST PT F/U 1 YR L/S MS NO TESTS SCHED W/PT History of Present Illness Angelika is doing reasonably well. She lives independently with her who has a lot of limitations himself. She uses a walker. She does not have chest pain or pressure. No shortness of breath. No orthopnea. No PND. She does not check her blood pressure at home. Overall, she feels reasonably well other than the fact that she has fatigue. She would recent labs that were largely unremarkable. No palpitations. 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 Coronary angiogram and left ventricular gram/pressure N/A 11/01/2018 Performed by Kalin Hamm MD at [facility] HYSTERECTOMY 1986 complete INJECTION MEDIAL BRANCH NERVE BLOCK: right C34 45 56mbb Right 09/07/2017 Performed by Kel Serna MD at [facility] INJECTION MEDIAL BRANCH NERVE BLOCK: right C34 45 56mbb Right 07/31/2017 Performed by Kel Serna MD at [facility] RADIO FREQUENCY ABLATION: right C34 45 56 Right 06/21/2018 Performed by Kel Serna MD at [facility] RADIOFREQUENCY ABLATION SPINAL: right C34 45 56rfa Right 09/25/2017 Performed by Kel Serna MD at [facility] RADIOFREQUENCY TURBINATE NASAL Bilateral 08/23/2020 Performed by Eddie Santana MD PhD at [facility] SEPTOPLASTY Circumferential 08/23/2020 Performed by Eddie Santana MD PhD at [facility] TONSILLECTOMY TUBAL LIGATION Family History Problem Relation Age of Onset Heart disease Mother Thyroid disease Mother Hypertension Mother Cancer Father Esophageal Diabetes Daughter Hypertension Daughter Breast cancer Neg Hx Social History Socioeconomic History Marital status: Spouse name: Not on file Number of children: Not on file Years of education: Not on file Highest education level: 12th grade Occupational History Not on file Tobacco Use Smoking status: Never Smokeless tobacco: Never Vaping Use Vaping Use: Never used Substance and Sexual Activity Alcohol use: Yes Comment: rarely Drug use: No Sexual activity: Defer Other Topics Concern Caffeine Use Yes Comment: 2 cups of coffee in the morning Social History Narrative Not on file Social Determinants of Health Financial Resource Strain: Low Risk (11/25/2018) Overall Financial Resource Strain (CARDIA) Difficulty of Paying Living Expenses: Not hard at all Food Insecurity: No Food Insecurity (04/10/2023) Hunger Screening Food Insecurity - Worry: Never True Food Insecurity - Inability: Never True Transportation Needs: No Transportation Needs (11/25/2018) PRAPARE - Transportation Lack of Transportation (Medical): No Lack of Transportation (Non-Medical): No Physical Activity: Inactive (11/25/2018) Exercise Vital Sign Days of Exercise per Week: 0 days Minutes of Exercise per Session: 0 min Stress: Stress Concern Present (11/25/2018) [employer] - Occupational Stress Questionnaire Feeling of Stress : To some extent Social Connections: Moderately Integrated (11/25/2018) Social Connection and Isolation Panel [NHANES] Frequency of Communication with Friends and Family: More than three times a week Frequency of Social Gatherings with Friends and Family: Twice a week Attends Alevism Services: More than 4 times per year Active Member of Clubs or Organizations: No Attends Club or Organization Meetings: Never Marital Status: Interpersonal Safety: Not At Risk (11/25/2018) Humiliation, Afraid, Rape, and Kick questionnaire Fear of Current or Ex-Partner: No Emotionally Abused: No Physically Abused: No Sexually Abused: No Review of Systems Review of Systems Constitutional: Positive for malaise/fatigue. Negative for chills and fever. HENT: Negative for hearing loss, hoarse voice and nosebleeds. Eyes: Negative for blurred vision and double vision. Respiratory: Negative for cough, shortness of breath and wheezing. Hematologic/Lymphatic: Negative for bleeding problem. Does not bruise/bleed easily. Skin: Negative for color change, rash and suspicious lesions. Musculoskeletal: Positive for arthritis, back pain and muscle weakness. Negative for joint swelling. Gastrointestinal: Negative for change in bowel habit, constipation, diarrhea and hematochezia. Genitourinary: Negative for hematuria. Neurological: Positive for headaches. Negative for dizziness, light-headedness, loss of balance and numbness. Psychiatric/Behavioral: Negative for depression. The patient is not nervous/anxious. Allergic/Immunologic: Negative for environmental allergies. CARDIOVASCULAR: Please review HPI. Physical Examination General appearance: Alert, oriented and cooperative. In no acute distress. Skin: Warm and dry to touch. Head: Normocephalic, without obvious abnormality, atraumatic. Ears, Nose, Mouth, Throat: Throat clear without erythema or exudate. Dentition intact. Eyes: Conjunctivae unremarkable, EOM intact. Neck Neck supple, trachea midline. Respiratory: Clear to auscultation bilaterally, no use of accessory muscles. Cardiovascular: RRR with normal S1 and S2 with no murmurs. Gastrointestinal: Soft, non-tender. Bowel sounds normal. Musculoskeletal: No peripheral edema. Neurologic: Oriented to time, person and place, affect appropriate. No focal/major motor defects noted. Psychiatric: Appropriate mood, memory and judgement. VITAL SIGNS: BP 130/80 (BP Site: Left Arm, BP Postition: Sitting) Pulse 84 Ht 152.4 cm (5') Wt 50.8 kg (112 lb) SpO2 91% BMI 21.87 kg/m Orders Placed or Reconciled This Encounter Medications leflunomide (ARAVA) 20 mg tablet Sig: Take 1 tablet (20 mg total) by mouth in the morning. oxybutynin XL (DITROPAN-XL) 10 mg 24 hr tablet Sig: Take 1 tablet (10 mg total) by mouth in the morning. cranberry 500 mg capsule Sig: Take by mouth 2 (two) times a day. kmgohxmh-qcms-GY-calcium &mins (THERAGRAN-M) 9 mg iron-400 mcg tablet Sig: Take 1 tablet by mouth in the morning. cholecalciferol 1,000 units tablet Sig: Take 1 tablet (1,000 Units total) by mouth in the morning. acetaminophen (TYLENOL ARTHRITIS) 650 mg 8 hr tablet Sig: Take 1 tablet (650 mg total) by mouth every 8 (eight) hours as needed for pain. There are no discontinued medications. IMPRESSIONS/PLAN 1. History of coronary artery bypass graft x 2 - POCT EKG 2. Dyslipidemia - POCT EKG 3. Primary hypertension - POCT EKG 1. CAD with hx of CABG x2 2019, workup performed after arm pain and fatigue with an abnormal stress test 2. Normal EF TTE 10/2018 3. Dyslipidemia 4. HTN 5. Hypothyroidism 6. Rheumatoid arthritis 7. Fatigue EKG today NSR PACs . Blood pressure is well controlled. I would keep her on her metoprolol and her amlodipine, statin and aspirin. She is otherwise doing reasonably well. I do not think there is anything to suggest that her fatigue is related to her cardiac status with preserved LV function. She has no clinical evidence of congestive heart failure. I think we can see her back yearly or as issues arise. TODAYS ORDERS Orders Placed This Encounter Procedures POCT EKG FOLLOW UP Return in about 1 year (around 04/10/2024). PCP: BOONE EWING MD Referring Physician: Boone Ewing MD [address] [place] [address] documented in this encounter [facility] Note 04-09-2023 Telephone Encounter - Toyin Bass CMA - 04/09/2023 12:26 PM EST Note Date & Type Note Facility 04-09-2023 Miscellaneous Notes Formattin g of this note might be different from the original. Called patient to remind them to bring their most current copy of their medication list with them to their appt. Patient verbalizes understanding. documented in this encounter [facility] Telephone encounter Note 04-09-2023 Telephone Encounter - Toyin Bass CMA - 04/09/2023 12:26 PM EST Note Date & Type Note Facility 04-09-2023 Telephone encount er Note Called patient to remind them to bring their most current copy of their medication list with them to their appt. Patient verbalizes understanding. [facility] Evaluation note Note Date & Type Note Facility Evaluation note No assessment information [facility] Work Phone: Evaluation note Note Date & Type Note Facility Evaluation note Diagnosis History of coronary artery bypass graft x 2- Primary Dyslipidemia Other and unspecified hyperlipidemia Primary hypertension Unspecified essential hypertension documented in this encounter [facility] Instructions Note Date & Type Note Facility Instructions Not on filedocumented in this en counter [facility] Instructions Note Date & Type Note Facility Instructions Not on filedocumented in this en counter [facility] Summary Purpose Family History No Family History Records FoundNo Family History Records FoundNo Family History Records FoundNo Family History Records Found Advance Directives No Advanced Directives Records Found Advance Directive Response Recorded Date/ Time Advance Directives No October 15 11:48am Advance Directive Response Recorded Date/ Time Advance Directives No October 15 10:48am Latest Code Status on File Code Status Date Activated Date Inactivated Comments Full Code 10/29/2018 3:22 PM 11/07/2018 5:21 PM Chief Complaint and Reason for Visit Chief Complaint M06.4 Z11.59 Rheumatoid arthritis/immunosuppression Chief Complaint Rheumatoid arthritis /immunosuppression Additional Source Comments INFORMATION SOURCE (unrecogn ized section and content) DATE CREATED AUTHOR 05/10/2021 [facility] dical Specialist DATE CREATED AUTHOR AUTHOR'S ORGANIZ ATION 04/02/2022 [facility] DATE CREATED AUTHOR AUTHOR'S ORGANIZ ATION 06/07/2022 [facility] DATE CREATED AUTHOR AUTHOR'S ORGANIZ ATION 05/18/2023 [facility] Care Teams (unrecognized sec tion and content) Team Status: Inactive Member Role Status Dates Carin Brady DO Primary Care Provider Active Jan Solares MD Attending Provider Active Team Status: Active Member Role Status Dates Carin Brady DO Primary Care Provider Active Product Strategy Director Relationship Specialty Start Date End Date Boone Ewing MD [address] [place] [address] PCP - General Family Medicine 12/23/21 Product Strategy Director Relationship Specialty Start Date End Date Boone Ewing MD [address] [place] [address] PCP - General Family Medicine 12/23/21 Goals (unrecognized section and content) Goals may be documented in a n alternate sectionGoals may be documented in an alternate sectionGoals may be documented in an alternate sectionNot on filedocumented as of this encounterNot on filedocumented as of this encounter Reason for Visit (unrecogniz ed section and content) Reason Comments Follow-up EST PT F/U 1 YR L/S MS NO TESTS SCHED W/PT FOR RECORDS PERTAINING TO PATIENTS WHO ARE OR HAVE BEEN ENROLLED IN A CHEMICAL DEPENDENCY/SUBSTANCEABUSE PROGRAM, SOME INFORMATION MAY BE OMITTED. This clinical summary was aggregated from multiple sources. Caution should be exercised in using it in the provision of clinical care. This summary normalizes information from multiple sources, and as a consequence, information in this document may materially change the coding, format and clinical context of patient data. In addition, data may be omitted in some cases. CLINICAL DECISIONS SHOULD BE BASED ON THE PRIMARY CLINICAL RECORDS. [facility] [employer] [facility]. provides no warranty or guarantee of the accuracy or completeness of information in this document.
== END 2023-07-23 23:11 | disposition home or self-care (01) ==
LOC: LAB 23:10
PROVIDERS: PCP Family Medicine; Visit Provider Internal Medicine
DX: N30.01 Acute cystitis with hematuria (principal); R39.9 Unspecified symptoms and signs involving the genitourinary system
CPT/HCPCS: 87086; 87150; 87186

== ENCOUNTER 2023-09-16 16:49 | Outpatient (RCR) | payer MEDICARE, OTHER, SELFPAY | END 2023-10-15 16:22 | disposition home or self-care (01) | LOC: PT 16:49 | PROVIDERS: PCP Family Medicine; Visit Provider Family Medicine | DX: M54.9 Dorsalgia, unspecified (principal) | CPT/HCPCS: 20561; 97162 ==

== ENCOUNTER 2023-10-02 14:29 | Outpatient (OUT) | payer MEDICARE, OTHER, SELFPAY ==
--- OUTSIDE RECORDS SUMMARY | 2023-10-02 14:36 | XMS_ITS | CCD ---
Author Organization [facility] CliniSyil Care Team Providers Care Paper Mill Manager Name Role Phone DO Carin Brady Primary Care Provider [phone] MD Jan Solares Attending Provider [phone] BECK, DR MONTOYA Admitting Unavailable HALADAY, DR [...] BOONE Waldrop Consulting Unavailable NADERER, DR BOONE Wladrop Admitting Unavailable NADERER, DR BOONE Waldrop Attending Unavailable NADERER, DR BOONE Waldrop Primary Care Unavailable NADERER, DR BOONE Waldrop Consulting Unavailable HALADAY, DR MONTOYA Admitting Unavailable HALADAY, DR MONTOYA Attending Unavailable NADERER, DR BOONE Waldrop Primary Care Unavailable HALADAY, DR MONTOYA Consulting Unavailable Haladadylan, Jan Admitting Unavailable Haladadylan, Jan Attending Unavailable Carin Brady Primary Care Unavailable Haladadylan, Jan Admitting Unavailable Haladadylan, Jan Attending Unavailable Carin Brady Primary Care Unavailable Halperry, Jan Admitting Unavailable Beck, Jan Attending Unavailable Carin Brady Primary Care Unavailable Haladadylan, Jan Admitting Unavailable Haladadylan, Jan Attending Unavailable Carin Brady Primary Care Unavailable Jan Solares Admitting Unavailable Jan Solares Attending Unavailable Carin Brady Primary Care Unavailable Boone Ewing MD Primary Care Provider [phone] JAN SMITH Attending Unavailable BOONE EWING Referring Unavailable BOONE EWIGN Primary Care Unavailable JAN SOLARES Referring Unavailable BOONE EWING Primary Care Unavailable SHAIKH RAMIREZ Attending Unavailable SHAIKH RAMIREZ Attending Unavailable BOONE EWING Attending Unavailable BOONE EWING Attending Unavailable BOONE EWING Attending Unavailable Allergies Allergy Classification Reported Allergen(s) Allergy Type Date of Onset Reaction(s) Facility (2 sources) Amoxicillin; Translations: [AMOXICILLIN] Drug Allergy 04-10-2023 [facility] Medications Current Medications Medication Drug Class(es) [...] FURTHER REFILLS. 90 tablet 3 01/08/2022 Active braxnqxq-sgwk-BF-calci um &mins (THERAGRAN-M) 9 mg iron-400 mcg [...] mouth every other day. Full dose Tues, Thurs, Sat, Sun (2.5mg Thu, Thu, Thu) 0 [...] 0 09/20/2020 04/10/2023 Discontinued (Therapy completed) sod hxvxz-ifzxke-msqd ez bottle (NEILMED SINUS RINSE COMPLETE) packet with rinse device nasal solution (2 sources) Start: 08-22-2020 End: 04-10-2023 take 1 dose nasal route twice daily sod iqibt-pfmmnn-kxpnf z bottle (NEILMED SINUS RINSE COMPLETE) packet with rinse device nasal solution Administer 1 packet into each nostril 2 (two) times a day. 60 packet 0 08/22/2020 04/10/2023 Discontinued (Therapy completed) Start: 08-22-2020 take 1 dose nasal ro jordan twice daily sod guzyf-hhewzb-iydyrq bottle (NEILMED SINUS RINSE COMPLETE) packet with rinse device nasal solution Administer 1 packet into each nostril 2 (two) times a day. 60 packet 0 08/22/2020 Active Problems Active Problems Problem Classification Problem Date Documented Da te Episodic/Chronic Coronary atherosclerosis and other heart disease (4 sources) Coronary arteriosclerosis; Translations: [Atherosclerotic heart disease of [place] coronary artery without angina pectoris] Onset: 10-29-2018 Resolved: 10-21-2019 10-21-2019 Chronic Disorders of lipid metabolism (4 sources) Dyslipidemia; Translations: [Hyperlipidemia, unspecified] Onset: 10-21-2019 10-21-2019 Chronic Essential hypertension (2 sources) Essential hypertension; Translations: [Essential (primary) hypertension] Onset: 04-10-2023 04-10-2023 Chronic Genitourinary symptoms and ill-defined conditions (4 sources) Dysuria; Translations: [DYSURIA] Onset: 03-25-2022 Episodic Other aftercare (2 sources) Other snf (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; Translations: [OTH HALFWAY CURRENT DRUG THERAPY] Onset: 01-20-2022 Episodic Rheumatoid [...] Range Facility CBC AND AUTO DIFFon 05-13-19 24 ABSOLUTE BASOPHIL 0.1 X10E9/L Normal 0.0-0.2 [facility] Comment on above: Performed By: #### C BCA, CLIN ASST, LIVR, 24132-6 #### [facility] ([id number]) [address], [address] [place] [address] ABSOLUTE NEUTROPHIL 4.4 X10E9/L Normal 1.5-6.6 [facility] Comment on above: Performed By: #### C BCA, CLIN ASST, LIVR, 39851-1 #### [facility] ([id number]) [address], [address] [place] [address] Basophils/100 WBC (Bld) 1.9 % Normal [facility] Comment on above: Performed By: #### C BCA, CLIN ASST, LIVR, 47983-1 #### [facility] ([id number]) [address], [address] [place] [address] Eosinophils (Bld) [#/Vol] 0.3 10*3/uL Normal 0.0-0.4 [facility] Comment on above: Performed By: #### C BCA, CLIN ASST, LIVR, 65394-2 #### [facility] ([id number]) [address], [facility] [address] [place] [address] Eosinophils/100 WBC (Bld) 3.5 % Normal [facility] Comment on above: Performed By: #### C BCA, CLIN ASST, LIVR, 22409-9 #### [facility] ([id number]) [address], [facility] [address] [place] [address] Erythrocyte distribution width (RBC) [Ratio] 13.6 % Normal 11.5-15.0 [facility] Comment on above: Performed By: #### C BCA, CLIN ASST, LIVR, 82880-7 #### [facility] ([id number]) [address], [facility] [address] [place] [address] Hematocrit (Bld) [Volume fraction] 42.5 % Normal 35-47 [facility] Comment on above: Performed By: #### C BCA, CLIN ASST, LIVR, 09100-2 #### [facility] ([id number]) [address], [facility] [address] [place] [address] Hemoglobin (Bld) [Mass/Vol] 14.2 g/dL Normal 11.7-15.5 [facility] Comment on above: Performed By: #### C BCA, CLIN ASST, LIVR, 83017-1 #### [facility] ([id number]) [address] [address] [place] [address] Lymphocytes (Bld) [#/Vol] 1.4 10*3/uL Normal 1.0-3.5 [facility] Comment on above: Performed By: #### C BCA, CLIN ASST, LIVR, 34011-1 #### [facility] ([id number]) [address] [address] [place] [address] Lymphocytes/100 WBC (Bld) 19.9 % Normal [facility] Comment on above: Performed By: #### C BCA, CLIN ASST, LIVR, 38095-7 #### [facility] ([id number]) [address] [address] [place] [address] MCH (RBC) [Entitic mass] 30.8 pg Normal 27-34 [facility] Comment on above: Performed By: #### C BCA, CLIN ASST, LIVR, 04656-3 #### [facility] ([id number]) [address] [address] [place] [address] MCHC (RBC) [Mass/Vol] 33.4 g/dL Normal 32-36 [facility] Comment on above: Performed By: #### C BCA, CLIN ASST, LIVR, 64588-8 #### [facility] ([id number]) [address] [address] [place] [address] MCV (RBC) [Entitic vol] 92 fL Normal 80-100 [facility] Comment on above: Performed By: #### C BCA, CLIN ASST, LIVR, 79927-8 #### [facility] ([id number]) [address] [address] [place] [address] Monocytes (Bld) [#/Vol] 0.9 10*3/uL Normal 0-0.9 [facility] Comment on above: Performed By: #### C BCA, CLIN ASST, LIVR, 60297-8 #### [facility] ([id number]) [address] [address] [place] [address] Monocytes/100 WBC (Bld) 12.9 % Normal [facility] Comment on above: Performed By: #### C BCA, CLIN ASST, LIVR, 80281-7 #### [facility] ([id number]) [address] [address] [place] [address] Neutrophils/100 WBC (Bld) 61.8 % Normal [facility] Comment on above: Performed By: #### C BCA, CLIN ASST, LIVR, 95383-9 #### [facility] ([id number]) [address] [address] [place] [address] Platelet mean volume (Bld) [Entitic vol] 10.3 fL Normal 7-12 [facility] Comment on above: Performed By: #### C BCA, CLIN ASST, LIVR, 35221-9 #### [facility] ([id number]) [address] [address] [place] [address] Platelets (Bld) [#/Vol] 288 10*3/uL Normal 150-450 [facility] Comment on above: Performed By: #### C BCA, CLIN ASST, LIVR, 67151-6 #### [facility] ([id number]) [address] [address] [place] [address] RBC COUNT 4.61 X10E12/L Normal 3.80-5.20 [facility] Comment on above: Performed By: #### C BCA, CLIN ASST, LIVR, 03266-1 #### [facility] ([id number]) [address] [address] [place] [address] WBC (Bld) [#/Vol] 7.2 10*3/uL Normal 4.0-11.0 [facility] Comment on above: Performed By: #### C BCA, CLIN ASST, LIVR, 04194-0 #### [facility] ([id number]) [address] [address] [place] [address] CREATININEon 05-13-2023 Creatinine [Mass/Vol] 0.66 mg/dL Normal 0.40-1.00 [facility] Comment on above: Result Comment: METH OD TRACEABLE TO IDMS STANDARD Performed By: #### C BCA, CLIN ASST, LIVR, 15521-1 #### [facility] ([id number]) [address] [address] GFR/1.73 sq M.predicted among non-blacks MDRD (S/P/Bld) [Vol rate/Area] 87 mL/min/{1.73_m2} Normal >59 [facility] Comment on above: Result Comment: Reported eGFR is based on the CKD-EPI 2020 equation that does not use a race coefficient. Performed By: #### C BCA, CLIN ASST, LIVR, 60107-9 #### [facility] ([id number]) [address] [address] ESR Photometric method (Bld) [Velocity]on 05-13-2023 ESR, ERYTHROCYTE SEDIMENTATION RATE 10 mm/h Normal 0-30 [facility] Comment on above: Performed By: #### C BCA, CLIN ASST, LIVR, 81054-8 #### [facility] ([id number]) [address] [address] LIVER PANELon 05-13-2023 Albumin [Mass/Vol] 3.8 g/dL Normal 3.2-5.3 [facility] Comment on above: Performed By: #### C BCA, CLIN ASST, LIVR, 53137-2 #### [facility] ([id number]) [address] [address] ALP [Catalytic activity/Vol] 114 U/L Normal 39-130 [facility] Comment on above: Performed By: #### C BCA, CLIN ASST, LIVR, 26187-5 #### [facility] ([id number]) [address] [address] ALT [Catalytic activity/Vol] 17 U/L Normal 0-31 [facility] Comment on above: Performed By: #### C BCA, CLIN ASST, LIVR, 17016-5 #### [facility] ([id number]) [address], [address] [place] [address] AST [Catalytic activity/Vol] 27 U/L Normal 0-41 [facility] Comment on above: Performed By: #### C BCA, CLIN ASST, LIVR, 80649-5 #### [facility] ([id number]) [address], [address] [place] [address] Bilirubin [Mass/Vol] 0.6 mg/dL Normal 0.3-1.2 [facility] Comment on above: Performed By: #### C BCA, CLIN ASST, LIVR, 89126-6 #### [facility] ([id number]) [address], [address] [place] [address] Bilirubin.direct [Mass/Vol] 0.1 mg/dL Normal 0.0-0.4 [facility] Comment on above: Performed By: #### C BCA, CLIN ASST, LIVR, 54013-9 #### [facility] ([id number]) [address], [address] [place] [address] Protein [Mass/Vol] 6.5 g/dL Normal 6.0-8.0 [facility] Comment on above: Performed By: #### C BCA, CLIN ASST, LIVR, 03547-5 #### [facility] ([id number]) [address], [address] [place] [address] POCT EKGon 04-10-2023 [facility] C-Reactive Proteinon 023 C-Reactive Protein 0.6 mg/dL Normal 0.0-1.0 [facility] Comment on above: Result Comment: PERF ORMED BY: [facility] [address] [place] [address] PATHOLOGIST PHOTOGRAPHERS' MODEL TOBIAS SCOTT M.D. Performed By: #### C 3, C4 #### [facility] , #### ESR, CRP, CBC, CREAT, ADDONUAPLUS, HEPATIC #### [facility] [address] [place] [address] Complement C3on 05-28-2022 Complement C3 142 mg/dL Normal 82-167 [facility] Comment on above: Result Comment: Perf ormed at: - [facility] [place] [address] [place], [place] [id number] Senior Safety Support Manager: Guanaco Cui PhD, Phone: [phone] Performed By: #### C 3, C4 #### [facility] , #### ESR, CRP, CBC, CREAT, ADDONUAPLUS, HEPATIC #### [address] Complement C4on 05-28-2022 Complement C4 39 mg/dL High 12-38 [facility] Comment on above: Result Comment: PERF ORMED BY: [place] [address] PATHOLOGIST PHOTOGRAPHERS' MODEL TOBIAS SCOTT M.D. Performed By: #### C 3, C4 ####[facility] ,#### ESR, CRP, CBC, CREAT, ADDONUAPLUS, HEPATIC ####[facility] [place] [address] Complete Blood Count Auto Di ffon 05-28-2022 Basophils (Bld) [#/Vol] 0.1 10*3/uL Normal 0.0-0.2 [facility] Comment on above: Performed By: #### C 3, C4 #### [facility] , #### ESR, CRP, CBC, CREAT, ADDONUAPLUS, HEPATIC #### [address] Basophils/100 WBC (Bld) 0.6 % Normal . [facility] Comment on above: Performed By: #### C 3, C4 #### [facility] , #### ESR, CRP, CBC, CREAT, ADDONUAPLUS, HEPATIC #### [facility] [address] [place] [address] Eosinophils (Bld) [#/Vol] 0.1 10*3/uL Normal 0.0-0.45 [facility] Comment on above: Performed By: #### C 3, C4 #### [facility] , #### ESR, CRP, CBC, CREAT, ADDONUAPLUS, HEPATIC #### [address] Eosinophils/100 WBC (Bld) 1.1 % Normal . [facility] Comment on above: Performed By: #### C 3, C4 #### [facility] , #### ESR, CRP, CBC, CREAT, ADDONUAPLUS, HEPATIC #### [address] Erythrocyte distribution width (RBC) [Ratio] 13.9 % Normal 11.9-15.3 [facility] Comment on above: Performed By: #### C 3, C4 #### [facility] , #### ESR, CRP, CBC, CREAT, ADDONUAPLUS, HEPATIC #### [address] Hematocrit (Bld) [Volume fraction] 47.4 % High 34.0-46.4 [facility] Comment on above: Performed By: #### C 3, C4 #### [facility] , #### ESR, CRP, CBC, CREAT, ADDONUAPLUS, HEPATIC #### [address] Hemoglobin (Bld) [Mass/Vol] 15.6 g/dL High 11.8-15.4 [facility] Comment on above: Performed By: #### C 3, C4 #### [facility] , #### ESR, CRP, CBC, CREAT, ADDONUAPLUS, HEPATIC #### [address] Lymphocytes (Bld) [#/Vol] 1.0 10*3/uL Normal 1.00-4.8 [facility] Comment on above: Performed By: #### C 3, C4 #### [facility] , #### ESR, CRP, CBC, CREAT, ADDONUAPLUS, HEPATIC #### [address] Lymphocytes/100 WBC (Bld) 8.5 % Normal . [facility] Comment on above: Performed By: #### C 3, C4 #### [facility] , #### ESR, CRP, CBC, CREAT, ADDONUAPLUS, HEPATIC #### [address] MCH (RBC) [Entitic mass] 30.4 pg Normal 24.7-34.3 [facility] Comment on above: Performed By: #### C 3, C4 #### [facility] , #### ESR, CRP, CBC, CREAT, ADDONUAPLUS, HEPATIC #### [address] MCV (RBC) [Entitic vol] 92.3 fL Normal 80-100 [facility] Comment on above: Performed By: #### C 3, C4 #### [facility] , #### ESR, CRP, CBC, CREAT, ADDONUAPLUS, HEPATIC #### [address] Mean Corpuscular HGB Conc 32.9 g/dL Normal 32.0-35.0 [facility] Comment on above: Performed By: #### C 3, C4 #### [facility] , #### ESR, CRP, CBC, CREAT, ADDONUAPLUS, HEPATIC #### [facility] [address] [place] [address] Monocytes (Bld) [#/Vol] 0.7 10*3/uL Normal 0.0-0.8 [facility] Comment on above: Performed By: #### C 3, C4 #### [facility] , #### ESR, CRP, CBC, CREAT, ADDONUAPLUS, HEPATIC #### [place] [address] [place] Monocytes/100 WBC (Bld) 5.7 % Normal . [facility] Comment on above: Performed By: #### C 3, C4 #### [facility] , #### ESR, CRP, CBC, CREAT, ADDONUAPLUS, HEPATIC #### [address] Neutrophils (Bld) [#/Vol] 9.7 10*3/uL High 1.8-7.7 [facility] Comment on above: Performed By: #### C 3, C4 #### [facility] , #### ESR, CRP, CBC, CREAT, ADDONUAPLUS, HEPATIC #### [address] Neutrophils/100 WBC (Bld) 84.1 % Normal . [facility] Comment on above: Performed By: #### C 3, C4 #### [facility] , #### ESR, CRP, CBC, CREAT, ADDONUAPLUS, HEPATIC #### [address] NRBC% 0.0 /100{WBC} Normal 0-0.5 [facility] Comment on above: Performed By: #### C 3, C4 #### [facility] , #### ESR, CRP, CBC, CREAT, ADDONUAPLUS, HEPATIC #### [address] Platelet mean volume (Bld) [Entitic vol] 9.4 fL Normal 6.3-10.7 [facility] Comment on above: Performed By: #### C 3, C4 #### [facility] , #### ESR, CRP, CBC, CREAT, ADDONUAPLUS, HEPATIC #### [address] [place] [address] [place] Platelets (Bld) [#/Vol] 267 10*3/uL Normal 150-450 [facility] Comment on above: Performed By: #### C 3, C4 #### [facility] , #### ESR, CRP, CBC, CREAT, ADDONUAPLUS, HEPATIC #### [address] RBC (Bld) [#/Vol] 5.13 10*6/uL High 3.60-5.00 [facility] Comment on above: Performed By: #### C 3, C4 #### [facility] , #### ESR, CRP, CBC, CREAT, ADDONUAPLUS, HEPATIC #### [address] WBC (Bld) [#/Vol] 11.6 10*3/uL Normal 3.8-11.6 [facility] Comment on above: Performed By: #### C 3, C4 #### [facility] , #### ESR, CRP, CBC, CREAT, ADDONUAPLUS, HEPATIC #### [facility] [address] [place] [address] Creatinineon 05-28-2022 Creatinine [Mass/Vol] 0.81 mg/dL Normal 0.44-1.03 [facility] Comment on above: Performed By: #### C 3, C4 #### [facility] , #### ESR, CRP, CBC, CREAT, ADDONUAPLUS, HEPATIC #### [facility] [address] [place] [address] Estimated GFR ( [place] > 60 Normal [facility] Comment on above: Result Comment: GFR estimated reference range: According to KDOQI guidelines, <60 ml/min/1.73m2 is sufficient to diagnose a patient with chronic kidney disease. Performed By: #### C 3, C4 #### [facility] , #### ESR, CRP, CBC, CREAT, ADDONUAPLUS, HEPATIC #### [facility] [address] [place] [address] [place] Estimated GFR (Non- Am > 60 Normal [facility] Comment on above: Performed By: #### C 3, C4 #### [facility] , #### ESR, CRP, CBC, CREAT, ADDONUAPLUS, HEPATIC #### [facility] [address] [place] [address] [place] Dipstick and Microscopicon 0 05-28-2022 Appearance (U) Clear Normal Clear [facility] Comment on above: Order Comment: Name Collection Type:: Clean-Voided Midstream Performed By: #### C 3, C4 #### [facility] , #### ESR, CRP, CBC, CREAT, ADDONUAPLUS, HEPATIC #### [facility] [address] [place] [address] Bacteria,Urine None Seen Normal None Seen [facility] Comment on above: Order Comment: Name Collection Type:: Clean-Voided Midstream Performed By: #### C 3, C4 #### [facility] , #### ESR, CRP, CBC, CREAT, ADDONUAPLUS, HEPATIC #### [facility] [address] [place] [address] [place] Bilirubin,Urine Negative Normal Negative [facility] Comment on above: Order Comment: Name Collection Type:: Clean-Voided Midstream Performed By: #### C 3, C4 #### [facility] , #### ESR, CRP, CBC, CREAT, ADDONUAPLUS, HEPATIC #### [facility] [address] [place] [address] [place] Color (U) Yellow Normal Yellow [facility] Comment on above: Order Comment: Name Collection Type:: Clean-Voided Midstream Performed By: #### C 3, C4 #### [facility] , #### ESR, CRP, CBC, CREAT, ADDONUAPLUS, HEPATIC #### [facility] [address] Glucose Ql (U) Normal Normal Normal [facility] Comment on above: Order Comment: Name Collection Type:: Clean-Voided Midstream Performed By: #### C 3, C4 #### [facility] , #### ESR, CRP, CBC, CREAT, ADDONUAPLUS, HEPATIC #### [address] Hyaline Casts,Urine 0-8 Normal 0-8 [facility] Comment on above: Order Comment: Name Collection Type:: Clean-Voided Midstream Result Comment: PERF ORMED BY: [place] [address] PATHOLOGIST PHOTOGRAPHERS' MODEL TOBIAS SCOTT M.D. Performed By: #### C 3, C4 #### [facility] , #### ESR, CRP, CBC, CREAT, ADDONUAPLUS, HEPATIC #### [address] Ketones Ql (U) Negative Normal Negative [facility] Comment on above: Order Comment: Name Collection Type:: Clean-Voided Midstream Performed By: #### C 3, C4 #### [facility] , #### ESR, CRP, CBC, CREAT, ADDONUAPLUS, HEPATIC #### [address] Leukocyte esterase Test strip Ql (U) 3+ High Negative [facility] Comment on above: Order Comment: Name Collection Type:: Clean-Voided Midstream Performed By: #### C 3, C4 #### [facility] , #### ESR, CRP, CBC, CREAT, ADDONUAPLUS, HEPATIC #### [facility] [address] [place] [address] Nitrite,Urine Negative Normal Negative [facility] Comment on above: Order Comment: Name Collection Type:: Clean-Voided Midstream Performed By: #### C 3, C4 #### [facility] , #### ESR, CRP, CBC, CREAT, ADDONUAPLUS, HEPATIC #### [address] Occult Blood,Urine Negative Normal Negative [facility] Comment on above: Order Comment: Name Collection Type:: Clean-Voided Midstream Performed By: #### C 3, C4 #### [facility] , #### ESR, CRP, CBC, CREAT, ADDONUAPLUS, HEPATIC #### [address] pH (U) 7.5 [pH] Normal 5.0-9.0 [facility] Comment on above: Order Comment: Name Collection Type:: Clean-Voided Midstream Performed By: #### C 3, C4 #### [facility] , #### ESR, CRP, CBC, CREAT, ADDONUAPLUS, HEPATIC #### [address] Protein,Urine Negative Normal Negative [facility] Comment on above: Order Comment: Name Collection Type:: Clean-Voided Midstream Performed By: #### C 3, C4 #### [facility] , #### ESR, CRP, CBC, CREAT, ADDONUAPLUS, HEPATIC #### [address] RBC LM.HPF (Urine sed) [#/Area] 0 /[HPF] Normal 0-4 [facility] Comment on above: Order Comment: Name Collection Type:: Clean-Voided Midstream Performed By: #### C 3, C4 #### [facility] , #### ESR, CRP, CBC, CREAT, ADDONUAPLUS, HEPATIC #### [address] Specificy [place],Urine 1.014 Normal 1.001-1.030 [facility] Comment on above: Order Comment: Name Collection Type:: Clean-Voided Midstream Performed By: #### C 3, C4 #### [facility] , #### ESR, CRP, CBC, CREAT, ADDONUAPLUS, HEPATIC #### [address] Squamous Epithelial Cell,Urine 1-2 Normal 0-2 [facility] Comment on above: Order Comment: Name Collection Type:: Clean-Voided Midstream Performed By: #### C 3, C4 #### [facility] , #### ESR, CRP, CBC, CREAT, ADDONUAPLUS, HEPATIC #### [address] Urobilinogen,Urine Normal Normal Normal [facility] Comment on above: Order Comment: Name Collection Type:: Clean-Voided Midstream Performed By: #### C 3, C4 #### [facility] , #### ESR, CRP, CBC, CREAT, ADDONUAPLUS, HEPATIC #### [address] WBC,Urine 3-4 Normal 0-4 [facility] Comment on above: Order Comment: Name Collection Type:: Clean-Voided Midstream Performed By: #### C 3, C4 #### [facility] , #### ESR, CRP, CBC, CREAT, ADDONUAPLUS, HEPATIC #### [address] Erythrocyte Sedimentation Ra sarah 05-28-2022 ESR (Bld) [Velocity] 28 mm/h Normal 0-29 [facility] Comment on above: Result Comment: PERF ORMED BY: [place] [address] PATHOLOGIST PHOTOGRAPHERS' MODEL TOBIAS SCOTT M.D. Performed By: #### C 3, C4 #### [facility] , #### ESR, CRP, CBC, CREAT, ADDONUAPLUS, HEPATIC #### [address] Hepatic Panelon 05-28-2022 Albumin [Mass/Vol] 3.8 g/dL Normal 3.2-5.5 [facility] Comment on above: Performed By: #### C 3, C4 #### [facility] , #### ESR, CRP, CBC, CREAT, ADDONUAPLUS, HEPATIC #### [facility] [facility] [address] [place] [address] [place] Albumin/Globulin [Mass ratio] 1.4 {ratio} Normal [facility] Comment on above: Performed By: #### C 3, C4 #### [facility] , #### ESR, CRP, CBC, CREAT, ADDONUAPLUS, HEPATIC #### [facility] [address] [place] [address] ALP [Catalytic activity/Vol] 106 U/L High 32-92 [facility] Comment on above: Performed By: #### C 3, C4 #### [facility] , #### ESR, CRP, CBC, CREAT, ADDONUAPLUS, HEPATIC #### [place] [id number] [place] ALT [Catalytic activity/Vol] 28 U/L Normal 10-60 [facility] Comment on above: Performed By: #### C 3, C4 #### [facility] , #### ESR, CRP, CBC, CREAT, ADDONUAPLUS, HEPATIC #### [facility] [address] [place] [address] [place] AST [Catalytic activity/Vol] 33 U/L Normal 10-42 [facility] Comment on above: Performed By: #### C 3, C4 #### [facility] , #### ESR, CRP, CBC, CREAT, ADDONUAPLUS, HEPATIC #### [facility] [address] [place] [address] Bilirubin [Mass/Vol] 0.8 mg/dL Normal 0.3-1.2 [facility] Comment on above: Performed By: #### C 3, C4 #### [facility] , #### ESR, CRP, CBC, CREAT, ADDONUAPLUS, HEPATIC #### [address] Bilirubin,Indirect 0.6 mg/dL Normal [facility] Comment on above: Performed By: #### C 3, C4 #### [facility] , #### ESR, CRP, CBC, CREAT, ADDONUAPLUS, HEPATIC #### [address] Bilirubin.indirect [Mass/Vol] 0.2 mg/dL Normal 0.0-0.4 [facility] Comment on above: Performed By: #### C 3, C4 #### [facility] , #### ESR, CRP, CBC, CREAT, ADDONUAPLUS, HEPATIC #### [address] Globulin (S) [Mass/Vol] 2.8 g/dL Normal [facility] Comment on above: Performed By: #### C 3, C4 #### [facility] , #### ESR, CRP, CBC, CREAT, ADDONUAPLUS, HEPATIC #### [address] Protein [Mass/Vol] 6.6 g/dL Normal 6.1-7.9 [facility] Comment on above: Performed By: #### C 3, C4 #### [facility] , #### ESR, CRP, CBC, CREAT, ADDONUAPLUS, HEPATIC #### [address] CULTURE URINEon 03-28-2022 CULTURE URINE Isolate 1 [...] Trimethoprim/Sulfamet hoxazole >=320 R F Normal [facility] Comment on above: Performed By: #### C ASA, LIVER #### [facility] [address] [place] [address] [address] Meron Obando XR knee BI 2Von 02-19-2022 XR knee BI 2V [facility] [place] [address] [place] [address] XRay Report Signed Patient: Angelika Goncalves MR#: [id number] 810 : 1940 Acct:[id number] Age/Sex: 81 / F ADM Date: 02/19/22 Loc: [facility] Room: Type: [facility] Attending Dr: Jan Solares MD Copies [...] Andrew Lane M.D.02/19/2022 3:22 PM Dictation Location: [place] [address] Transcribed By: [facility] 02/19/22 152 Dictated By: Andrew Lane DO 02/19/22 1517 Signed By: 02/19/22 1522 Normal [facility] Mitochondrial (M2) Antibodyo n 02-12-2022 Mitochondrial (M2) Antibody <20.0 Normal 0.0-20.0 [facility] Comment on above: Result Comment: Nega tive 0.0 - 20.0 Equivocal 20.1 - 24.9 Positive >24.9 Mitochondrial (M2) Antibodies are found in 90-96% of patients with primary biliary cirrhosis. Performed at: - [facility] [id number] Senior Safety Support Manager: Guanaco Cui PhD, Phone: [phone] PERFORMED BY: [facility] [place] [id number] PATHOLOGIST PHOTOGRAPHERS[employer]DEL TOBIAS SCOTT M.D. Performed By: #### M ITOM2 ####[facility] , CULTURE URINEon 02-10-2022 CULTURE URINE Culture Observations : ERIC TO FOLLOW. Isolate 1 Citrobacter spp. >100,000 cfu/mL of Normal [facility] Comment on above: Performed By: #### C ASA, LIVER #### [facility] [address] [place] [address] [address] Meron Obando UA RANDOM W/MICROSCOPICon BACTERIA MODERATE Abnormal NONE SEEN [facility] Comment on above: Performed By: #### U AMIC #### [facility] [address] [place] [address] Dr. Meron Obando Bilirubin Ql (U) Negative Normal NEGATIVE [facility] Comment on above: Performed By: #### U AMIC #### [facility] [address] [place] [address] Dr. Meron Obando CAST NONE SEEN Normal NONE SEEN [facility] Comment on above: Performed By: #### U AMIC #### [facility] [address] [place] [address] [address] Meron Obando Clarity (U) CLEAR Normal CLEAR [facility] Comment on above: Performed By: #### U AMIC #### [facility] [address] [place] [address] [address] Meron Obando Color (U) YELLOW Normal YELLOW [facility] Comment on above: Performed By: #### U AMIC #### [facility] [address] [place] [address] Dr. Meron Obando Crystals LM Nom (Urine sed) NONE SEEN Normal NONE SEEN [facility] Comment on above: Performed By: #### U AMIC #### [facility] [address] [place] [address] [address] Meron Obando Epithelial cells LM Ql (Urine sed) FEW Abnormal NONE SEEN /RARE [facility] Comment on above: Performed By: #### U AMIC #### [facility] [address] [place] [address] [address] Meron Obando Glucose Ql (U) Negative Normal NEGATIVE [facility] Comment on above: Performed By: #### U AMIC #### [facility] [address] [place] [address] [address] Meron Obando Hemoglobin Ql (U) TRACE-INTACT Abnormal NEGATIVE [facility] Comment on above: Performed By: #### U AMIC #### [facility] [address] [place] [address] [address] Meron Obando Ketones Ql (U) Negative Normal NEGATIVE [facility] Comment on above: Performed By: #### U AMIC #### [facility] [address] [place] [address] [address] Meron Obando LEUKOCYTES LARGE Abnormal NEGATIVE [facility] Comment on above: Performed By: #### U AMIC #### [facility] [address] [place] [address] [address] Meron Obando MUCOUS NONE SEEN Normal NONE SEEN [facility] Comment on above: Performed By: #### U AMIC #### [facility] [address] [place] [address] [address] Meron Obando Nitrite Ql (U) Negative Normal NEGATIVE [facility] Comment on above: Performed By: #### U AMIC #### [facility] [address] [place] [address] [address] Meron Obando pH (U) 6.0 [pH] Normal 5-9 [facility] Comment on above: Performed By: #### U AMIC #### [facility] [address] [place] [address] Dr. Meron Obando RBC 5-10 Abnormal 0-2 [facility] Comment on above: Performed By: #### U AMIC #### [facility] [address] [place] [address] [address] Meron Obando SPEC GRAVITY <=1.005 Abnormal 1.005-<=1.025 [facility] Comment on above: Performed By: #### U AMIC #### [facility] [address] [place] [address] [address] Meron Obando UA PROTEIN Negative Normal NEGATIVE/ TRACE [facility] Comment on above: Performed By: #### U AMIC #### [facility] [address] [place] [address] [address] Meron Obando Urobilinogen Qn (U) 0.2 {Opal'U}/dL Normal 0.2 - 1. 0 [facility] Comment on above: Performed By: #### U AMIC #### [facility] [address] [place] [address] Dr. Meron Obando WBC 50-75 Abnormal NONE SEEN [facility] Comment on above: Performed By: #### U AMIC #### [facility] [address] [place] [address] Dr. Meron Obando C3 and C4 COMPLEMENTon 01-09 Complement C3, Serum 143 mg/dL Normal 82-167 [facility] Comment on above: Performed By: #### C ASA LIVER #### [facility] [address] [place] [address] Dr. Meron Obando Complement C4, Serum 44 mg/dL Critically high 12-38 [facility] Comment on above: Performed By: #### Ha BRAY LIVER #### [facility] [address] [place] [address] Dr. Meron Obando COMPLEMENT TOTAL (CH50)on Complement, Total (CH50) >60 Normal >41 [facility] Comment on above: Result Comment: Age [...] values. Performed By: #### S EDR #### [facility] [address] [place] [address] [address] Meron Obando CRPon 01-08-2022 CRP [Mass/Vol] mg/L Normal <=1.0 [facility] Comment on above: Performed By: #### L IVER, CRP #### [facility] [address] [place] [address] Dr. Meron Obando LIVER PROFILEon 01-08-2022 Albumin [Mass/Vol] 3.6 g/dL Normal 3.4-5.0 [facility] Comment on above: Performed By: #### L IVER, CRP #### [facility] [address] [place] [address] Dr. Meron Obando Albumin/Globulin [Mass ratio] 1.0 {ratio} Normal [facility] Comment on above: Performed By: #### L IVER, CRP #### [facility] [address] [place] [address] Dr. Meron Obando ALP [Catalytic activity/Vol] 127 U/L Critically high 46-116 [facility] Comment on above: Performed By: #### L IVER, CRP #### [facility] [address] [place] [address] Dr. Meron Obando ALT [Catalytic activity/Vol] 29 U/L Normal 14-59 [facility] Comment on above: Performed By: #### L IVER, CRP #### [facility] [address] [place] [address] Dr. Meron Obando AST [Catalytic activity/Vol] 30 U/L Normal 15-37 [facility] Comment on above: Performed By: #### L IVER, CRP #### [facility] [address] [place] [address] Dr. Meron Obando BILI, CONJUGATED 0.2 mg/dL Normal 0.0-0.2 [facility] Comment on above: Performed By: #### L IVER, CRP #### [facility] [address] [place] [address] Dr. Meron Obando Bilirubin [Mass/Vol] 0.8 mg/dL Normal 0.2-1.0 [facility] Comment on above: Performed By: #### L IVER, CRP #### [facility] [address] [place] [address] Dr. Meron Obando Globulin (S) [Mass/Vol] 3.7 g/dL Normal [facility] Comment on above: Performed By: #### L IVER, CRP #### [facility] [address] [place] [address] Dr. Meron Obando Protein [Mass/Vol] 7.3 g/dL Normal 6.4-8.2 [facility] Comment on above: Performed By: #### L IVER, CRP #### [facility] [address] [place] [address] Dr. Meron Obando SED RATE [facility] 2021 SED RATE 35 mm/hr Critically high <=30 [facility] Comment on above: Performed By: #### C ASA, LIVER #### [facility] [address] [place] [address] Dr. Meron Obando UA RANDOM W/MICROSCOPICon BACTERIA MODERATE Abnormal NONE SEEN [facility] Comment on above: Performed By: #### S EDR #### [facility] [address] [place] [address] Dr. Meron Obando Bilirubin Ql (U) Negative Normal NEGATIVE [facility] Comment on above: Performed By: #### S EDR #### [facility] [address] [place] [address] Dr. Meron Obando CAST NONE SEEN Normal NONE SEEN [facility] Comment on above: Performed By: #### S EDR #### [facility] [address] [place] [address] Dr. eMron Obando Clarity (U) CLOUDY Abnormal CLEAR [facility] Comment on above: Performed By: #### S EDR #### [facility] [address] [place] [address] Dr. Meron Obando Color (U) LT. YELLOW Normal YELLOW [facility] Comment on above: Performed By: #### S EDR #### [facility] [address] [place] [address] Dr. Meron Obando Crystals LM Nom (Urine sed) NONE SEEN Normal NONE SEEN [facility] Comment on above: Performed By: #### S EDR #### [facility] [address] [place] [address] Dr. Meron Obando Epithelial cells LM Ql (Urine sed) FEW Abnormal NONE SEEN /RARE [facility] Comment on above: Performed By: #### S EDR #### [facility] [address] [place] [address] Dr. Meron Obando Glucose Ql (U) Negative Normal NEGATIVE [facility] Comment on above: Performed By: #### S EDR #### [facility] [address] [place] [address] Dr. Meron Obando Hemoglobin Ql (U) TRACE-INTACT Abnormal NEGATIVE [facility] Comment on above: Performed By: #### S EDR #### [facility] [address] [place] [address] Dr. Meron Obando Ketones Ql (U) Negative Normal NEGATIVE [facility] Comment on above: Performed By: #### S EDR #### [facility] [address] [place] [address] Dr. Meron Obando LEUKOCYTES LARGE Abnormal NEGATIVE [facility] Comment on above: Performed By: #### S EDR #### [facility] [address] [place] [address] Dr. Meron Obando MUCOUS NONE SEEN Normal NONE SEEN [facility] Comment on above: Performed By: #### S EDR #### [facility] [address] [place] [address] Dr. Meron Obando Nitrite Ql (U) Negative Normal NEGATIVE [facility] Comment on above: Performed By: #### S EDR #### [facility] [address] [place] [address] Dr. Meron Obando pH (U) 6.0 [pH] Normal 5-9 [facility] Comment on above: Performed By: #### S EDR #### [facility] [address] [place] [address] Dr. Meron Obando RBC 2-5 Abnormal 0-2 [facility] Comment on above: Performed By: #### S EDR #### [facility] [address] [place] [address] Dr. Meron Obando SPEC GRAVITY 1.010 Normal 1.005-<=1.025 [facility] Comment on above: Performed By: #### S EDR #### [facility] [address] [place] [address] Dr. Meron Obando UA PROTEIN Negative Normal NEGATIVE/ TRACE [facility] Comment on above: Performed By: #### S EDR #### [facility] [address] [place] [address] Dr. Meron Obando Urobilinogen Qn (U) 0.2 {Opal'U}/dL Normal 0.2 - 1. 0 [facility] Comment on above: Performed By: #### S EDR #### [facility] [address] [place] [address] Dr. Meron Obando WBC (U) [#/Vol] /uL Abnormal NONE SEEN [facility] Comment on above: Performed By: #### S EDR #### [facility] [address] [place] [address] Dr. Meron Obando CULTURE URINEon 12-15-2021 CULTURE [...] Trimethoprim/Sulfamet hoxazole <=20 S F Normal [facility] Comment on above: Performed By: #### C ASA, LIVER #### [facility] [address] [place] [address] Dr. Meron Obando CBC AUTO DIFFon 12-10-2021 BASO # 0.1 103/ul Normal 0.0-0.1 [facility] Comment on above: Performed By: #### C ASA, LIVER #### [facility] [address] [place] [address] Dr. Meron Obando Basophils/100 WBC (Bld) 0.7 % Normal 0.2-2.0 [facility] Comment on above: Performed By: #### C ASA, LIVER #### [facility] [address] [place] [address] Dr. Meron Obando EO # 0.2 103/ul Normal 0.0-0.7 [facility] Comment on above: Performed By: #### C ASA, LIVER #### [facility] [address] [place] [address] Dr. Meron Obando Eosinophils/100 WBC (Bld) 2.4 % Normal 0.9-7.0 [facility] Comment on above: Performed By: #### C ASA, LIVER #### [facility] [address] [place] [address] Dr. Meron Obando Erythrocyte distribution width (RBC) [Ratio] 15.3 % Critically high 11.0-15.0 [facility] Comment on above: Performed By: #### C ASA, LIVER #### [facility] [address] [place] [address] Dr. Meron Obando Hematocrit (Bld) [Volume fraction] 45.6 % Normal 36.0-48.0 [facility] Comment on above: Performed By: #### C ASA, LIVER #### [facility] [address] [place] [address] Dr. Meron Obando Hemoglobin (Bld) [Mass/Vol] 15.3 g/dL Normal 12.0-16.0 [facility] Comment on above: Performed By: #### C ASA, LIVER #### [facility] [address] [place] [address] Dr. Meron Obando IG # 0.03 10e3/ul Normal 0.00-0.03 [facility] Comment on above: Performed By: #### C ASA, LIVER #### [facility] [address] [place] [address] [address] Meron Obando IG % 0.3 % Normal 0.0-0.5 [facility] Comment on above: Performed By: #### C ASA, LIVER #### [facility] [address] [place] [address] [address] Meron Obando LYMPH # 1.6 103/ul Normal 1.2-3.8 [facility] Comment on above: Performed By: #### C ASA, LIVER #### [facility] [address] [place] [address] [address] Meron Obando Lymphocytes/100 WBC (Bld) 17.0 % Critically low 20.5-60.0 [facility] Comment on above: Performed By: #### C ASA, LIVER #### [facility] [address] [place] [address] [address] Meron Obando MANUAL DIFF REQ NO Normal [facility] Comment on above: Performed By: #### C ASA, LIVER #### [facility] [address] [place] [address] [address] Meron Obando MCH (RBC) [Entitic mass] 31.4 pg Normal 26.7-34.0 [facility] Comment on above: Performed By: #### C ASA, LIVER #### [facility] [address] [place] [address] [address] Meron Obando MCHC (RBC) [Mass/Vol] 33.6 g/dL Normal 29.9-35.2 [facility] Comment on above: Performed By: #### C ASA, LIVER #### [facility] [address] [place] [address] [address] Meron Obando MCV (RBC) [Entitic vol] 93.6 fL Normal 81.0-99.0 [facility] Comment on above: Performed By: #### C ASA, LIVER #### [facility] [address] [place] [address] [address] Meron Obando MONO # 1.0 103/ul Critically high 0.3-0.8 [facility] Comment on above: Performed By: #### C ASA, LIVER #### [facility] [address] [place] [address] Dr. Meron Obando Monocytes/100 WBC (Bld) 10.9 % Normal 1.7-12.0 [facility] Comment on above: Performed By: #### C ASA, LIVER #### [facility] [address] [place] [address] Dr. Meron Obando NEUT # 6.3 103/ul Normal 1.4-6.5 [facility] Comment on above: Performed By: #### C ASA, LIVER #### [facility] [address] [place] [address] Dr. Meron Obando Neutrophils/100 WBC (Bld) 68.7 % Normal 43.0-75.0 [facility] Comment on above: Performed By: #### C ASA, LIVER #### [facility] [address] [place] [address] Dr. Meron Obando Platelet mean volume (Bld) [Entitic vol] 10.9 fL Normal 9.5-13.5 [facility] Comment on above: Performed By: #### C ASA, LIVER #### [facility] [address] [place] [address] Dr. Meron Obando PLT 300 103/ul Normal 150-450 [facility] Comment on above: Performed By: #### C ASA, LIVER #### [facility] [address] [place] [address] Dr. Meron Obando RBC 4.87 106/ul Normal 4.20-5.40 [facility] Comment on above: Performed By: #### C ASA, LIVER #### [facility] [address] [place] [address] Dr. Meron Obando WBC 9.2 103/ul Normal 4.0-11.0 [facility] Comment on above: Performed By: #### C ASA, LIVER #### [facility] [address] [place] [address] Dr. Meron Obando CREATININEon 12-10-2021 Creatinine [Mass/Vol] 0.96 mg/dL Normal 0.55-1.02 [facility] Comment on above: Performed By: #### C ASA, LIVER #### [facility] [address] [place] [address] Dr. Meron Obando EGFR-AF BARBADIAN >60 Normal >=60 [facility] Comment on above: Performed By: #### C ASA, LIVER #### [facility] [address] [place] [address] Dr. Meron Obando EGFR-NON AF BARBADIAN 56 mL/min/1.73m2 Critically low >=60 [facility] Comment on above: Performed By: #### C ASA, LIVER #### [facility] [address] [place] [address] Dr. Meron Obando LIVER PROFILEon 12-10-2021 Albumin [Mass/Vol] 3.4 g/dL Normal 3.4-5.0 [facility] Comment on above: Performed By: #### C ASA, LIVER #### [facility] [address] [place] [address] Dr. Meron Obando Albumin/Globulin [Mass ratio] 0.9 {ratio} Normal [facility] Comment on above: Performed By: #### C ASA, LIVER #### [facility] [address] [place] [address] Dr. Meron Obando ALP [Catalytic activity/Vol] 149 U/L Critically high 46-116 [facility] Comment on above: Performed By: #### C ASA, LIVER #### [facility] [address] [place] [address] Dr. Meron Obando ALT [Catalytic activity/Vol] 36 U/L Normal 14-59 [facility] Comment on above: Performed By: #### C ASA, LIVER #### [facility] [address] [place] [address] Dr. Meron Obando AST [Catalytic activity/Vol] 40 U/L Critically high 15-37 [facility] Comment on above: Performed By: #### C ASA, LIVER #### [facility] [address] [place] [address] Dr. Meron Obando BILI, CONJUGATED 0.2 mg/dL Normal 0.0-0.2 [facility] Comment on above: Performed By: #### C ASA, LIVER #### [facility] [address] [place] [address] Dr. Meron Obando Bilirubin [Mass/Vol] 0.5 mg/dL Normal 0.2-1.0 [facility] Comment on above: Performed By: #### C ASA, LIVER #### [facility] [address] [place] [address] Dr. Meron Obando Globulin (S) [Mass/Vol] 3.7 g/dL Normal [facility] Comment on above: Performed By: #### C ASA, LIVER #### [facility] [address] [place] [address] Dr. Meron Obando Protein [Mass/Vol] 7.1 g/dL Normal 6.4-8.2 [facility] Comment on above: Performed By: #### C ASA, LIVER #### [facility] [address] [place] [address] Dr. Meron Obando SED RATE [facility] 2021 SED RATE 20 mm/hr Normal <=30 [facility] Comment on above: Performed By: #### S EDR #### [facility] [address] [place] [address] Dr. Meron Obando XR chest 2V*on 12-03-2021 XR chest 2V* [facility] [place] [address] XRay Report Signed Patient: Angelika Goncalves MR#: [id number] 810 : 1940 Acct:[id number] Age/Sex: 81 / F ADM Date: 12/03/21 Loc: ICXD Room: Type: [facility] Attending Dr: Jan Solares MD Copies [...] Maria Ansari M.D.12/03/2021 2:07 PM Dictation Location: [place] [address] Transcribed By: [facility] 12/03/211406 Dictated By: Rosa Maria Ansari MD 12/03/211404 Signed By: 12/03/211406 [facility] CBC AUTO DIFFon 11-25-2021 BASO # 0.1 103/ul Normal 0.0-0.1 [facility] Comment on above: Performed By: #### Ha BRAY LIVER #### [facility] [address] [place] [address] Dr. Meron Obando Basophils/100 WBC (Bld) 1.1 % Normal 0.2-2.0 [facility] Comment on above: Performed By: #### Ha BRAY LIVER #### [facility] [address] [place] [address] [address] Meron Obando EO # 0.2 103/ul Normal 0.0-0.7 [facility] Comment on above: Performed By: #### Ha BRAY LIVER #### [facility] [address] [place] [address] [address] Meron Obando Eosinophils/100 WBC (Bld) 2.4 % Normal 0.9-7.0 [facility] Comment on above: Performed By: #### Ha BRAY LIVER #### [facility] [address] [address] [address] Meron Obando Erythrocyte distribution width (RBC) [Ratio] 15.1 % Critically high 11.0-15.0 [facility] Comment on above: Performed By: #### Ha BRAY LIVER #### [facility] [address] [place] [address] Dr. Meron Obando Hematocrit (Bld) [Volume fraction] 48.0 % Normal 36.0-48.0 [facility] Comment on above: Performed By: #### C ASA, LIVER #### [facility] [address] [place] [address] Dr. Meron Obando Hemoglobin (Bld) [Mass/Vol] 15.5 g/dL Normal 12.0-16.0 [facility] Comment on above: Performed By: #### C ASA, LIVER #### [facility] [address] [place] [address] Dr. Meron Obando IG # 0.03 10e3/ul Normal 0.00-0.03 [facility] Comment on above: Performed By: #### C ASA, LIVER #### [facility] [address] [place] [address] Dr. Meron Obando IG % 0.3 % Normal 0.0-0.5 [facility] Comment on above: Performed By: #### C ASA, LIVER #### [facility] [address] [place] [address] Dr. Meron Obando LYMPH # 1.7 103/ul Normal 1.2-3.8 [facility] Comment on above: Performed By: #### C ASA, LIVER #### [facility] [address] [place] [address] Dr. Meron Obando Lymphocytes/100 WBC (Bld) 18.3 % Critically low 20.5-60.0 [facility] Comment on above: Performed By: #### C ASA, LIVER #### [facility] [address] [place] [address] Dr. Meron Obando MANUAL DIFF REQ NO Normal [facility] Comment on above: Performed By: #### C ASA, LIVER #### [facility] [address] [place] [address] Dr. Meron Obando MCH (RBC) [Entitic mass] 30.7 pg Normal 26.7-34.0 [facility] Comment on above: Performed By: #### C ASA, LIVER #### [facility] [address] [place] [address] Dr. Meron Obando MCHC (RBC) [Mass/Vol] 32.3 g/dL Normal 29.9-35.2 [facility] Comment on above: Performed By: #### C ASA, LIVER #### [facility] [address] [place] [address] Dr. Meron Obando MCV (RBC) [Entitic vol] 95.0 fL Normal 81.0-99.0 [facility] Comment on above: Performed By: #### C ASA, LIVER #### [facility] [address] [place] [address] Dr. Meron Obando MONO # 1.0 103/ul Critically high 0.3-0.8 [facility] Comment on above: Performed By: #### C ASA, LIVER #### [facility] [address] [place] [address] Dr. Meron Obando Monocytes/100 WBC (Bld) 10.4 % Normal 1.7-12.0 [facility] Comment on above: Performed By: #### C ASA, LIVER #### [facility] [address] [place] [address] Dr. Meron Obando NEUT # 6.2 103/ul Normal 1.4-6.5 [facility] Comment on above: Performed By: #### C ASA, LIVER #### [facility] [address] [place] [address] Dr. Meron Obando Neutrophils/100 WBC (Bld) 67.5 % Normal 43.0-75.0 [facility] Comment on above: Performed By: #### C ASA, LIVER #### [facility] [address] [place] [address] Dr. Meron Obando Platelet mean volume (Bld) [Entitic vol] 10.8 fL Normal 9.5-13.5 [facility] Comment on above: Performed By: #### C ASA, LIVER #### [facility] [address] [place] [address] Dr. Meron Obando PLT 295 103/ul Normal 150-450 [facility] Comment on above: Performed By: #### C ASA, LIVER #### [facility] [address] [place] [address] Dr. Meron Obando RBC 5.05 106/ul Normal 4.20-5.40 [facility] Comment on above: Performed By: #### C ASA, LIVER #### [facility] [address] [place] [address] Dr. Meron Obando WBC 9.2 103/ul Normal 4.0-11.0 [facility] Comment on above: Performed By: #### C ASA, LIVER #### [facility] [address] [place] [address] Dr. Meron Obando CREATININEon 11-25-2021 Creatinine [Mass/Vol] 1.03 mg/dL Critically high 0.55-1.02 [facility] Comment on above: Performed By: #### S EDR #### [facility] [address] [place] [address] Dr. Meron Obando EGFR-AF BARBADIAN 39 mL/min/1.73m2 Critically low >=60 [facility] Comment on above: Performed By: #### S EDR #### [facility] [address] [place] [address] Dr. Meron Obando EGFR-NON AF BARBADIAN 32 mL/min/1.73m2 Critically low >=60 [facility] Comment on above: Performed By: #### S EDR #### [facility] [address] [place] [address] Dr. Meron Obando LIVER PROFILEon 11-25-2021 Albumin [Mass/Vol] 3.5 g/dL Normal 3.4-5.0 [facility] Comment on above: Performed By: #### S EDR #### [facility] [address] [place] [address] Dr. Meron Obando Albumin/Globulin [Mass ratio] 1.0 {ratio} Normal [facility] Comment on above: Performed By: #### S EDR #### [facility] [address] [place] [address] Dr. Meron Obando ALP [Catalytic activity/Vol] 135 U/L Critically high 46-116 [facility] Comment on above: Performed By: #### S EDR #### [facility] [address] [place] [address] Dr. Meron Obando ALT [Catalytic activity/Vol] 41 U/L Normal 14-59 [facility] Comment on above: Performed By: #### S EDR #### [facility] [address] [address] [address] Meron Obando AST [Catalytic activity/Vol] 39 U/L Critically high 15-37 [facility] Comment on above: Performed By: #### S EDR #### [facility] [address] [place] [address] Dr. Meron Obando BILI, CONJUGATED 0.1 mg/dL Normal 0.0-0.2 [facility] Comment on above: Performed By: #### S EDR #### [facility] [address] [place] [address] Dr. Meron Obando Bilirubin [Mass/Vol] 0.5 mg/dL Normal 0.2-1.0 [facility] Comment on above: Performed By: #### S EDR #### [facility] [address] [place] [address] Dr. Meron Obando Globulin (S) [Mass/Vol] 3.5 g/dL Normal [facility] Comment on above: Performed By: #### S EDR #### [facility] [address] [place] [address] Dr. Meron Obando Protein [Mass/Vol] 7.0 g/dL Normal 6.4-8.2 [facility] Comment on above: Performed By: #### S EDR #### [facility] [address] [place] [address] Dr. Meron Obando SED RATE WESTERGRENon 2021 SED RATE 11 mm/hr Normal <=30 [facility] Comment on above: Performed By: #### S EDR #### [facility] [address] [place] [address] Dr. Meron Obando CBC AUTO DIFFon 11-13-2021 BASO # 0.1 103/ul Normal 0.0-0.1 [facility] Comment on above: Performed By: #### C BC #### [facility] [address] [place] [address] Dr. Meron Obando Basophils/100 WBC (Bld) 0.8 % Normal 0.2-2.0 [facility] Comment on above: Performed By: #### C BC #### [facility] [address] [place] [address] Dr. Meron Obando EO # 0.2 103/ul Normal 0.0-0.7 [facility] Comment on above: Performed By: #### C BC #### [facility] [address] [place] [address] Dr. Meron Obando Eosinophils/100 WBC (Bld) 1.9 % Normal 0.9-7.0 [facility] Comment on above: Performed By: #### C BC #### [facility] [address] [place] [address] Dr. Meron Obando Erythrocyte distribution width (RBC) [Ratio] 14.4 % Normal 11.0-15.0 [facility] Comment on above: Performed By: #### C BC #### [facility] [address] [place] [address] Dr. Meron Obando Hematocrit (Bld) [Volume fraction] 48.9 % Critically high 36.0-48.0 [facility] Comment on above: Performed By: #### C BC #### [facility] [address] [place] [address] Dr. Meron Obando Hemoglobin (Bld) [Mass/Vol] 16.0 g/dL Normal 12.0-16.0 [facility] Comment on above: Performed By: #### C BC #### [facility] [address] [place] [address] Dr. Meron Obando IG # 0.03 10e3/ul Normal 0.00-0.03 [facility] Comment on above: Performed By: #### C BC #### [facility] [address] [place] [address] Dr. Meron Obando IG % 0.3 % Normal 0.0-0.5 [facility] Comment on above: Performed By: #### C BC #### [facility] [address] [place] [address] Dr. Meron Obando LYMPH # 2.5 103/ul Normal 1.2-3.8 [facility] Comment on above: Performed By: #### C BC #### [facility] [address] [place] [address] Dr. Meron Obando Lymphocytes/100 WBC (Bld) 24.8 % Normal 20.5-60.0 [facility] Comment on above: Performed By: #### C BC #### [facility] [address] [place] [address] Dr. Meron Obando MANUAL DIFF REQ NO Normal [facility] Comment on above: Performed By: #### C BC #### [facility] [address] [place] [address] Dr. Meron Obando MCH (RBC) [Entitic mass] 30.9 pg Normal 26.7-34.0 [facility] Comment on above: Performed By: #### C BC #### [facility] [address] [place] [address] Dr. Meron Obando MCHC (RBC) [Mass/Vol] 32.7 g/dL Normal 29.9-35.2 [facility] Comment on above: Performed By: #### C BC #### [facility] [address] [place] [address] Dr. Meron Obando MCV (RBC) [Entitic vol] 94.4 fL Normal 81.0-99.0 [facility] Comment on above: Performed By: #### C BC #### [facility] [address] [place] [address] Dr. Meron Obando MONO # 0.8 103/ul Normal 0.3-0.8 [facility] Comment on above: Performed By: #### C BC #### [facility] [address] [place] [address] Dr. Meron Obando Monocytes/100 WBC (Bld) 7.7 % Normal 1.7-12.0 [facility] Comment on above: Performed By: #### C BC #### [facility] [address] [place] [address] Dr. Meron Obando NEUT # 6.4 103/ul Normal 1.4-6.5 [facility] Comment on above: Performed By: #### C BC #### [facility] [address] [place] [address] Dr. Meron Obando Neutrophils/100 WBC (Bld) 64.5 % Normal 43.0-75.0 [facility] Comment on above: Performed By: #### C BC #### [facility] [address] [place] [address] Dr. Meron Obando Platelet mean volume (Bld) [Entitic vol] 11.1 fL Normal 9.5-13.5 [facility] Comment on above: Performed By: #### C BC #### [facility] [address] [place] [address] Dr. Meron Obando PLT 306 103/ul Normal 150-450 [facility] Comment on above: Performed By: #### C BC #### [facility] [address] [place] [address] Dr. Meron Obando RBC 5.18 106/ul Normal 4.20-5.40 [facility] Comment on above: Performed By: #### C BC #### [facility] [address] [place] [address] Dr. Meron Obando WBC 9.9 103/ul Normal 4.0-11.0 [facility] Comment on above: Performed By: #### C BC #### [facility] [address] [place] [address] Dr. Meron Obando CREATININEon 11-13-2021 Creatinine [Mass/Vol] 1.01 mg/dL Normal 0.55-1.02 [facility] Comment on above: Performed By: #### C ASA, LIVER #### [facility] [address] [place] [address] Dr. Meron Obando EGFR-AF BARBADIAN >60 Normal >=60 [facility] Comment on above: Performed By: #### C ASA, LIVER #### [facility] [address] [address] [address] Meron Obando EGFR-NON AF BARBADIAN 53 mL/min/1.73m2 Critically low >=60 [facility] Comment on above: Performed By: #### C ASA, LIVER #### [facility] [address] [address] [address] Meron Obando LIVER PROFILEon 11-13-2021 Albumin [Mass/Vol] 3.4 g/dL Normal 3.4-5.0 [facility] Comment on above: Performed By: #### S EDR #### [facility] [address] [place] [address] Dr. Meron Obando Albumin/Globulin [Mass ratio] 0.9 {ratio} Normal [facility] Comment on above: Performed By: #### S EDR #### [facility] [address] [place] [address] Dr. Meron Obando ALP [Catalytic activity/Vol] 126 U/L Critically high 46-116 [facility] Comment on above: Performed By: #### S EDR #### [facility] [address] [place] [address] Dr. Meron Obando ALT [Catalytic activity/Vol] 58 U/L Normal 14-59 [facility] Comment on above: Performed By: #### S EDR #### [facility] [address] [place] [address] Dr. Meron Obando AST [Catalytic activity/Vol] 55 U/L Critically high 15-37 [facility] Comment on above: Performed By: #### S EDR #### [facility] [address] [place] [address] Dr. Meron Obando BILI, CONJUGATED 0.1 mg/dL Normal 0.0-0.2 [facility] Comment on above: Performed By: #### S EDR #### [facility] [address] [place] [address] Dr. Meron Obando Bilirubin [Mass/Vol] 0.5 mg/dL Normal 0.2-1.0 [facility] Comment on above: Performed By: #### S EDR #### [facility] [address] [place] [address] Dr. Meron Obando Globulin (S) [Mass/Vol] 3.6 g/dL Normal [facility] Comment on above: Performed By: #### S EDR #### [facility] [address] [place] [address] Dr. Meron Obando Protein [Mass/Vol] 7.0 g/dL Normal 6.4-8.2 [facility] Comment on above: Performed By: #### S EDR #### [facility] [address] [place] [address] Dr. Meron Obando [facility] SED RATE 13 mm/hr Normal <=30 [facility] Comment on above: Performed By: #### S EDR #### [facility] [address] [place] [address] Dr. Meron Obando CBC AUTO DIFFon 10-28-2021 BASO # 0.1 103/ul Normal 0.0-0.1 [facility] Comment on above: Performed By: #### C BC #### [facility] [address] [place] [address] Dr. Meron Obando Basophils/100 WBC (Bld) 1.1 % Normal 0.2-2.0 [facility] Comment on above: Performed By: #### C BC #### [facility] [address] [place] [address] Dr. Meron Obando EO # 0.2 103/ul Normal 0.0-0.7 [facility] Comment on above: Performed By: #### C BC #### [facility] [address] [place] [address] Dr. Meron Obando Eosinophils/100 WBC (Bld) 2.3 % Normal 0.9-7.0 [facility] Comment on above: Performed By: #### C BC #### [facility] [address] [place] [address] Dr. Meron Obando Erythrocyte distribution width (RBC) [Ratio] 13.8 % Normal 11.0-15.0 [facility] Comment on above: Performed By: #### C BC #### [facility] [address] [place] [address] Dr. Meron Obando Hematocrit (Bld) [Volume fraction] 46.7 % Normal 36.0-48.0 [facility] Comment on above: Performed By: #### C BC #### [facility] [address] [place] [address] Dr. Meron Obando Hemoglobin (Bld) [Mass/Vol] 15.1 g/dL Normal 12.0-16.0 [facility] Comment on above: Performed By: #### C BC #### [facility] [address] [place] [address] Dr. Meron Obando IG # 0.04 10e3/ul Critically high 0.00-0.03 [facility] Comment on above: Performed By: #### C BC #### [facility] [address] [place] [address] Dr. Meron Obando IG % 0.4 % Normal 0.0-0.5 [facility] Comment on above: Performed By: #### C BC #### [facility] [address] [place] [address] Dr. Meron Obando LYMPH # 1.8 103/ul Normal 1.2-3.8 [facility] Comment on above: Performed By: #### C BC #### [facility] [address] [place] [address] Dr. Meron Obando Lymphocytes/100 WBC (Bld) 18.7 % Critically low 20.5-60.0 [facility] Comment on above: Performed By: #### C BC #### [facility] [address] [place] [address] Dr. Meron Obando MANUAL DIFF REQ NO Normal [facility] Comment on above: Performed By: #### C BC #### [facility] [address] [place] [address] Dr. Meron Obando MCH (RBC) [Entitic mass] 30.5 pg Normal 26.7-34.0 [facility] Comment on above: Performed By: #### C BC #### [facility] [address] [address] [address] Meron Obando MCHC (RBC) [Mass/Vol] 32.3 g/dL Normal 29.9-35.2 [facility] Comment on above: Performed By: #### C BC #### [facility] [address] [address] [address] Meron Obando MCV (RBC) [Entitic vol] 94.3 fL Normal 81.0-99.0 [facility] Comment on above: Performed By: #### C BC #### [facility] [address] [address] [address] Meron Obando MONO # 1.1 103/ul Critically high 0.3-0.8 [facility] Comment on above: Performed By: #### C BC #### [facility] [address] [address] [address] Meron Obando Monocytes/100 WBC (Bld) 11.0 % Normal 1.7-12.0 [facility] Comment on above: Performed By: #### C BC #### [facility] [address] [place] [address] Dr. Meron Obando NEUT # 6.4 103/ul Normal 1.4-6.5 [facility] Comment on above: Performed By: #### C BC #### [facility] [address] [address] [address] Meron Obando Neutrophils/100 WBC (Bld) 66.5 % Normal 43.0-75.0 [facility] Comment on above: Performed By: #### C BC #### [facility] [address] [address] [address] Meron Obando Platelet mean volume (Bld) [Entitic vol] 11.1 fL Normal 9.5-13.5 [facility] Comment on above: Performed By: #### C BC #### [facility] [address] [address] [address] Meron Obando PLT 249 103/ul Normal 150-450 [facility] Comment on above: Performed By: #### C BC #### [facility] [address] [address] [address] Meron Obando RBC 4.95 106/ul Normal 4.20-5.40 [facility] Comment on above: Performed By: #### C BC #### [facility] [address] [address] [address] Meron Obando WBC 9.7 103/ul Normal 4.0-11.0 [facility] Comment on above: Performed By: #### C BC #### [facility] [address] [address] [address] Meron Obando CREATININEon 10-28-2021 Creatinine [Mass/Vol] 0.98 mg/dL Normal 0.55-1.02 [facility] Comment on above: Performed By: #### C ASA, LIVER #### [facility] [address] [place] [address] Dr. Meron Obando EGFR-AF BARBADIAN >60 Normal >=60 [facility] Comment on above: Performed By: #### C ASA, LIVER #### [facility] [address] [place] [address] Dr. Meron Obando EGFR-NON AF BARBADIAN 54 mL/min/1.73m2 Critically low >=60 [facility] Comment on above: Performed By: #### C ASA, LIVER #### [facility] [address] [address] [address] Meron Obando LIVER PROFILEon 10-28-2021 Albumin [Mass/Vol] 3.3 g/dL Critically low 3.4-5.0 [facility] Comment on above: Performed By: #### C ASA, LIVER #### [facility] [address] [address] [address] Meron Obando Albumin/Globulin [Mass ratio] 0.9 {ratio} Normal [facility] Comment on above: Performed By: #### C AAS, LIVER #### [facility] [address] [address] [address] Meron Obando ALP [Catalytic activity/Vol] 127 U/L Critically high 46-116 [facility] Comment on above: Performed By: #### C ASA, LIVER #### [facility] [address] [address] [address] Meron Obando ALT [Catalytic activity/Vol] 38 U/L Normal 14-59 [facility] Comment on above: Performed By: #### C ASA, LIVER #### [facility] [address] [address] [address] Meron Obando AST [Catalytic activity/Vol] 33 U/L Normal 15-37 [facility] Comment on above: Performed By: #### C ASA, LIVER #### [facility] [address] [address] [address] Meron Obando BILI, CONJUGATED 0.1 mg/dL Normal 0.0-0.2 [facility] Comment on above: Performed By: #### C ASA, LIVER #### [facility] [address] [place] [address] Dr. Meron Obando Bilirubin [Mass/Vol] 0.3 mg/dL Normal 0.2-1.0 [facility] Comment on above: Performed By: #### C ASA, LIVER #### [facility] [address] [place] [address] Dr. Meron Obando Globulin (S) [Mass/Vol] 3.7 g/dL Normal [facility] Comment on above: Performed By: #### C ASA, LIVER #### [facility] [address] [place] [address] Dr. Meron Obando Protein [Mass/Vol] 7.0 g/dL Normal 6.4-8.2 [facility] Comment on above: Performed By: #### C ASA, LIVER #### [facility] [address] [place] [address] Dr. Meron Obando [facility] SED RATE 8 mm/hr Normal <=30 [facility] Comment on above: Performed By: #### S EDR #### [facility] [address] [place] [address] Dr. Meron Obando Hepatitis B Core Antibodyon 10-09-2021 Hepatitis B Core Antibody Negative Normal Negative [facility] Comment on above: Result Comment: Perf ormed at: CB - [facility] [address] [id number] Senior Safety Support Manager: Guanaco Cui PhD, Phone: [phone] PERFORMED BY: [facility] [place] [address] PATHOLOGIST PHOTOGRAPHERS' MODEL TOBIAS SCOTT M.D. Performed By: #### H BCAB #### [facility] , No Panel InformationOrdered By: Jan Solares on 10-09-2021 Hepatitis B Core Total Antibody Negative Negative [facility] Comment on above: Performed at: - [facility] [address] [id number] Senior Safety Support Manager: Guanaco Cui PhD, Phone: [phone] Q - CULTURE,URINE,ROUTINEon 05-07-2021 CULTURE, URINE, ROUTINE SEE NOTE Normal [facility] Professor Of Public Administration Comment on above: Order Comment: [facility] performed at: QPT, [facility], [address] [place] [address], [address] [place] [address], [phone], [employer]: Harsh Hopkins MD [facility] Collection Date/Time: [facility] Results Received Date/Time: [facility] Reported Date/Time: Result Comment: CULT URE, URINE, ROUTINE Micro Number: [id number] Test Status: Final Specimen Source: Urine Specimen Quality: Adequate Result: No Growth Performed By: #### [id number] #### [facility] [address] [place] [address] Vital Signs Date Time Vital Sign Value Performing Clinician Faci lity 04-10-2023 14:140500 Body height 152.4 cm Jan Smith MD Work Phone: [facility] 04-10-2023 14:14-0500 Body mass index (BMI) [Ratio] 21.87 kg/m2 Jan Smith MD Work Phone: [facility] 04-10-2023 14:14-0500 Body weight 50.8 kg Jan Smith MD Work Phone: [facility] 04-10-2023 14:14-0500 Diastolic blood pressure 80 mm[Hg] Jan Smith MD Work Phone: [facility] 04-10-2023 14:14-0500 Heart rate 84 /min Jan Smith MD Work Phone: [facility] 04-10-2023 14:14-0500 SaO2% (BldA) [Mass fraction] 91 % Jan Smith MD Work Phone: [facility] 04-10-2023 14:14-0500 Systolic blood pressure 130 mm[Hg] Jan Smith MD Work Phone: [facility] Encounters Encounter Date Encounter Type Care Provider Facility Start: 09-22-2023 End: 09-22-2023 ambulatory BOONE EWING Not Available Start: 07-29-2023 End: 07-29-2023 ambulatory BOONE EWING Not Available Start: 07-23-2023 End: 07-23-2023 ambulatory SHAIKH ASHLEY Not Available Start: 06-03-2023 End: 06-03-2023 ambulatory SHAIKH ASHLEY Not Available Start: 05-13-2023 End: 05-14-2023 ambulatory JAN Bokoer [facility] Start: 04-10-2023 End: 04-10-2023 ambulatory JAN Holt LUIS [facility] Start: 04-10-2023 End: 04-10-2023 Office outpatient visit 25 minutes Jan Smith MD Work Phone: [facility] Comment on above: 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); Dyslipidemia; Primary hypertension Start: 04-09-2023 Telephone encounter Toyin Bass [facility] Start: 03-23-2023 End: 03-23-2023 ambulatory BOONE EWING Not Available Start: 05-28-2022 End: 05-28-2022 ambulatory [place] Gustavoeasterndylan Facility:[facility] Start: 03-25-2022 End: 03-25-[address] BOONE EWING Facility:[facility] Start: 02-19-2022 End: 02-19-2022 ambulatory Jan Solares Facility:[facility] Start: 02-12-2022 End: 02-12-2022 ambulatory Jan Solares Facility:[facility] Start: 02-12-2022 End: 02-12-2022 ambulatory DO Carin G Jose Antonio Work Phone: [facility] Work Phone: Start: 02-12-2022 End: 02-12-2022 Patient encounter procedure DO Cairn Jose Antonio Work Phone: [facility] [address] Start: 02-10-2022 End: 02-10-[address] BOONE EWING Facility:[facility] Start: 01-08-2022 End: 01-09-[address] JAN SOLARES Facility:[facility] Start: 12-12-2021 End: 12-12-[address] BOONE EWING Facility:[facility] Start: 12-10-2021 End: 01-04-[address] JAN SOLARES Facility:[facility] Start: 12-03-2021 End: 12-03-2021 ambulatory Jan Solares Facility:[facility] Start: 12-03-2021 End: 12-03-2021 Patient encounter procedure DO Carin Jose Antonio Work Phone: [facility] [address] Start: 11-13-2021 End: 12-04-[address] JAN SOLARES Facility:[facility] Start: 10-28-2021 End: 11-01-[address] JAN SOLARES Facility:[facility] Start: 10-09-2021 End: 10-09-2021 ambulatory Jan Solares Facility:[facility] Start: 10-09-2021 End: 10-09-2021 Patient encounter procedure DO Carin Jose Antonio Work Phone: [facility] [address] Procedures Date Procedure Procedure Detail Performing Clinician Start: 04-10-2023 Follow-up visit Follow-up JAN SMITH Start: 04-10-2023 Ecg routine ecg w/le ast 12 lds w/i&r Jan Smith MD Work Phone: Start: 12-03-2021 Plain chest X-ray DO Sol Brady Work Phone: Start: 01-07-2021 Adult depression screening assessment [facility] Start: 08-30-2020 H/O: surgery S/P nasal septoplasty J ibeth [facility] Start: 11-26-2018 History of coronary artery bypass grafting History of coronary artery bypass graft x 2 [facility] History of coronary artery bypass grafting History of coronary artery bypass graft x 2 Jan Smith MD Work Phone: Plan of Treatment Date Care Activity Detail Author Start: 04-10-2024 Adult BMI Screening Adult BMI Screening [facility] Start: 04-10-2024 Tobacco Screening Tobacco Screening [facility] Start: 08-08-2023 Adult BMI Screening Adult BMI Screening [facility] Start: 04-10-2023 End: 04-10-2023 Patient encounter procedure 04/10/2023 2:30 PM EST Office Visit [facility] [address] [place] [address] Jan Smith MD [address] [place] [address] [facility] Start: 12-23-2022 Tobacco Screening Tobacco Screening [facility] Start: 01-07-2022 Depression Screening Depression Screening [facility] Start: 02-17-2020 Administration of varicella zoster vaccine Zoster (Shingles) Vaccine (3 of 3) [facility] Start: 2005 Fall Risk Screening Fall Risk Screening [facility] Start: 1959 DTaP,Tdap and Td Vaccines (1 - Tdap) DTaP,Tdap and Td Vaccines (1 - Tdap) [facility] Start: 1940 Medicare Annual Wellness Visit Medicare Annual Wellness Visit [facility] Hepatitis B core ant ibody [facility] Work Phone: Immunizations Immunization Date Immunization Notes Care Provider Fa brooke 05-24-2020 COVID-19, mRNA, LNP- S, PF, 100mcg/0.5mL Dose Toyin Cansecokeila [facility] 04-27-2020 COVID-19, mRNA, LNP- S, PF, 100mcg/0.5mL Dose Toyin Bass [facility] 12-23-2019 zoster vaccine, unspecified formulation Toyin Cansecokeila [facility] Payers Date Payer Category Payer Self-pay [id number] 2011 Unknown [id number] 2005 Medicare MEDICARE MEDICAR E PART A & B [id number] 2005-Present [phone] [address] [place] [address] [id number] 1959 Medicare [id number] 1959 Unknown [id number] 1940 Unknown [id number] 2.16.840.1.000946.3.579.2.593 1940 Unknown [id number] 2.16.840.1.847138.3.579.2.593 1940 Unknown [id number] 2.16.840.1.991757.3.579.2.593 1940 Unknown [id number] 2.16.840.1.012029.3.579.2.593 1940 Unknown [id number] 2.16.840.1.938098.3.579.2.593 1940 Unknown [id number] 2.16.840.1.537714.3.579.2.593 1940 Unknown [id number] 2.16.840.1.699275.3.579.2.593 1940 Unknown [id number] 2.16.840.1.556557.3.579.2.128 6 1940 Unknown [id number] 2.16.840.1.967582.3.579.2.128 6 1940 Unknown [id number] 2.16.840.1.790652.3.579.2.125 9 1940 Unknown [id number] 2.16.840.1.565741.3.579.2.125 9 1940 Unknown [id number] 2.16.840.1.113911.3.579.2.125 9 1940 Unknown [id number] 2.16.840.1.800706.3.579.2.125 9 1940 Unknown [id number] 2.16.840.1.687058.3.579.2.125 9 Unknown [id number] 2.16.840.1.591753.3.579.2.531 Unknown [id number] 2.16.840.1.010428.3.579.2.531 Unknown [id number] 2.16.840.1.027793.3.579.2.531 Unknown [id number] 2.16.840.1.311037.3.579.2.531 Unknown [id number] 2.16.840.1.074682.3.579.2.531 Social History Date Type Detail [facility] Work Phone: Start: 1940 Sex Assigned At Female F [facility] Start: 04-16-2017 End: 04-10-2023 Tobacco smoking status RIIS Never smoked tobacco [facility] Work Phone: Start: 04-16-2017 End: 04-10-2023 Tobacco use and exposure Smokeless tobacco non-user [facility] Start: 12-23-2021 End: 04-10-2023 Alcohol intake Current drinker of alcohol (finding) [facility] Start: 11-25-2018 End: 04-24-2020 History of Social function [facility] Start: 11-25-2018 End: 04-24-2020 Social connection and isolation panel [facility] Frequency of Communi cation with Friends and Family More than three times a week [facility] Start: 11-25-2018 Education 12 [facility] Start: 10-21-2019 Alcohol Comment rarely [facility] History of Present illness Narrative 04-10-2023 Jan Smith MD - 04/10/2023 2:30 PM EST Note Date & Type Note Facility 04-10-2023 History of Present illness Narrative Angelika Goncalves Date of visit: 04/10/2023 Date of : 1940 Age: 83 y.o. Patient Active Problem List Diagnosis Cervical spondylosis without myelopathy Iron deficiency anemia Coronary artery disease involving [place] coronary artery of [place] heart History of coronary artery bypass graft [...] FOR ANY FURTHER REFILLS. 90 tablet 3 beqssxsq-bagc-JE-calcium &mins (THERAGRAN-M) 9 mg iron-400 mcg tablet [...] mouth every other day. Full dose Tues, Thurs, Sat, Sun (2.5mg Thu, Thu, Thu) sod pglna-wpemex-fueudr bottle (NEILMED SINUS RINSE COMPLETE) packet with [...] palpitations. 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 CABGX2/LIMAX1/SVGX1/EVH LEFT UPPER LEG/MINA N/A 11/03/2018 Performed by Kel Sherman MD at [facility] Cardiac catheterization N/A 11/01/2018 Performed by Kalin Hamm MD at [facility] Coronary angiogram and left ventricular gram/pressure N/A 11/01/2018 Performed by Kalin Hamm MD at [facility] HYSTERECTOMY 1986 complete INJECTION MEDIAL BRANCH NERVE BLOCK: right C34 45 56mbb Right 09/07/2017 Performed by Kel Serna MD at [facility] INJECTION MEDIAL BRANCH NERVE BLOCK: right C34 45 56mbb Right 07/31/2017 Performed by Kel Serna MD at [facility] RADIO FREQUENCY ABLATION: right C34 45 56 Right 06/21/2018 Performed by Kel Serna MD at [facility] RADIOFREQUENCY ABLATION SPINAL: right C34 45 56rfa Right 09/25/2017 Performed by Kel Serna MD at [facility] RADIOFREQUENCY TURBINATE NASAL Bilateral 08/23/2020 Performed by Eddie Santana MD PhD at [facility] SEPTOPLASTY Circumferential 08/23/2020 Performed by Eddie Santana MD PhD at [facility] TONSILLECTOMY TUBAL LIGATION Family History Problem Relation [...] 0 min Stress: Stress Concern Present (11/25/2018) [employer] - Occupational Stress Questionnaire Feeling of Stress : To some extent Social Connections: Moderately Integrated (11/25/2018) Social Connection and Isolation Panel [NHANES] Frequency of Communication with Friends and Family: More than three times a week Frequency of Social Gatherings with Friends and Family: Twice a week Attends Congregational Services: More than 4 times per year [...] by mouth 2 (two) times a day. wmzcfexj-msrv-GG-calcium &mins (THERAGRAN-M) 9 mg iron-400 mcg tablet [...] 1. CAD with hx of CABG x2 2018, workup performed after arm pain and fatigue [...] Referring Physician: Boone Ewing MD [address] [place] [address] documented in this encounter [facility] Note 04-09-2023 Telephone Encounter - Toyin Bass CMA - 04/09/2023 12:26 PM EST Note Date & Type Note Facility 04-09-2023 Miscellaneous Notes Formattin g of this note might be different from the original. Called patient to remind them to bring their most current copy of their medication list with them to their appt. Patient verbalizes understanding. [facility] this [facility] Note 04-09-2023 Telephone Encounter - Toyin Bass CMA - 04/09/2023 12:26 PM EST Note Date & Type Note Facility 04-09-2023 Telephone encount er Note Called patient to remind them to bring their most current copy of their medication list with them to their appt. Patient verbalizes understanding. [facility] Evaluation note Note Date & Type Note Facility Evaluation note No assessment information [facility] Work Phone: Evaluation note Note Date & Type Note Facility Evaluation note Diagnosis History of coronary artery bypass graft x 2- Primary Dyslipidemia Other and unspecified hyperlipidemia Primary hypertension Unspecified essential hypertension documented in this encounter [facility] Instructions Note Date & [...] section and content) DATE CREATED AUTHOR 05/10/2021 [facility] Specialist DATE CREATED AUTHOR AUTHOR'S ORGANIZ ATION 04/02/2022 [facility] DATE CREATED AUTHOR AUTHOR'S ORGANIZ ATION 06/07/2022 [facility] DATE CREATED AUTHOR AUTHOR'S ORGANIZ ATION 05/18/2023 [facility] DATE CREATED AUTHOR AUTHOR'S ORGANIZ ATION 09/24/2023 [facility] dical Specialists EPIC Care Teams (unrecognized sec tion and content) Team Status: Inactive Member Role Status Dates Carin Brady , Primary Care Provider Active Jan Solares MD Attending Provider Active Team Status: Active Member Role Status Dates Carin Brady , Primary Care Provider Active [employer] Relationship Specialty Start Date End Date Boone Ewing MD [address] [place] [address] PCP - General Family Medicine 12/23/21 [employer] Manager Relationship Specialty Start Date End Date Boone Ewing MD [address] [place] [address] PCP - General Family Medicine 12/23/21 Goals [...] BE BASED ON THE PRIMARY CLINICAL RECORDS. [facility], [facility]. provides no warranty or guarantee of the accuracy or completeness of information in this document.
[2023-10-02 14:58] LABS: Basophils Absolute Auto 0.1 10^3/uL (0.0-0.1); Basophils Percent Auto 1.3 % (0.2-2.0); Eosinophils Absolute Auto 0.3 10^3/uL (0.0-0.7); Eosinophils Percent Auto 3.4 % (0.9-7.0); Hematocrit 42.5 % (36.0-48.0); Hemoglobin 13.8 g/dL (12.0-16.0); Immature Granulocytes Abs Auto 0.02 10^3/uL (0.00-0.03); Immature Granulocytes Pct Auto 0.3 % (0.0-0.5); Lymphocytes Absolute Auto 1.4 10^3/uL (1.2-3.8); Lymphocytes Percent Auto 18.5 % (20.5-60.0); Mean Corpuscular HGB Conc 32.5 g/dL (29.9-35.2); Mean Corpuscular Hemoglobin 30.9 pg (26.7-34.0); Mean Corpuscular Volume 95.1 fL (81.0-99.0); Mean Platelet Volume 10.6 fL (9.5-13.5); Monocytes Absolute Auto 1.1 10^3/uL (0.3-0.8); Monocytes Percent Auto 14.4 % (1.7-12.0); Neutrophils Absolute Auto 4.6 10^3/uL (1.4-6.5); Neutrophils Percent Auto 62.1 % (43.0-75.0); Platelet Count 291 10^3/uL (150-450); Red Blood Count 4.47 10^6/uL (4.20-5.40); White Blood Count 7.4 10^3/uL (4.0-11.0)
[2023-10-02 15:08] LABS: Estimated Average Glucose 97 mg/dL
[2023-10-02 15:33] LABS: Free T4 0.97 ng/dL (0.76-1.46)
[2023-10-02 16:07] LABS: Alanine Aminotransferase 16 U/L (14-59); Albumin Globulin Ratio 0.9; Albumin Level 3.2 g/dL (3.4-5.0); Alkaline Phosphatase 98 U/L (46-116); Anion Gap 13.2; Aspartate Amino Transferase 22 U/L (15-37); BUN Creatinine Ratio 16.2; Bilirubin Direct 0.2 mg/dL (0.0-0.2); Bilirubin Total 0.5 mg/dL (0.2-1.0); Calcium 9.2 mg/dL (8.5-10.1); Carbon Dioxide 26.1 mmol/L (21.0-32.0); Chloride 104 mmol/L (98-107); Chol HDL Ratio 2.5; Cholesterol 130 mg/dL (<=200); Estimated GFR (African America >60 (>=60); Estimated GFR (Non-African Ame 54 (>=60); Free T3 1.97 pg/mL (2.18-3.98); Globulin 3.5 g/dL; Glucose 118 mg/dL (74-106); HDL Cholesterol 53 mg/dL (40-60); Potassium 3.3 mmol/L (3.5-5.1); Sodium 140 mmol/L (136-145); Thyroid Stimulating Hormone 2.591 uIU/mL (0.358-3.740); Total Protein 6.7 g/dL (6.4-8.2); Triglycerides 95 mg/dL (<=150)
== END 2023-10-02 14:30 | disposition home or self-care (01) ==
PROVIDERS: PCP Family Medicine; Visit Provider Family Medicine
DX: E78.5 Hyperlipidemia, unspecified (principal); R73.03 Prediabetes; Z79.899 Other long term (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; E03.9 Hypothyroidism, unspecified
CPT/HCPCS: 36415; 80048; 80061; 80076; 83036; 84439; 84443; 84481; 85025

== ENCOUNTER 2023-10-09 10:30 | Outpatient (OUT) | payer MEDICARE, OTHER, SELFPAY ==
--- NOTE | 2023-10-09 10:32 | MM_ITS ---
Patient Name: TRAVIS GONCALVES MR#: [id number] : 1940 Exam Date: 10/09/2023 Ordering Doctor: DR WIL EWING . RADIOLOGY REPORT PROCEDURE: MM TOMOSYNTHESIS SCREENING BI COMPARISON: MM TOMOSYNTHESIS SCREENING BI, 08/07/2015. MM TOMOSYNTHESIS SCREENING BI, 01/07/2017. INDICATIONS: Screening Calculator Name NCI Breast Cancer Risk Assessment Tool 5 Year Breast Cancer Risk Not Reported. Lifetime Breast Cancer Risk Not Reported. Personal Breast Cancer No Personal Ovarian Cancer No Treatments None Family Cancers None LOCATION: [facility] BREAST COMPOSITION: The breasts are heterogeneously dense,which may obscure small masses. FINDINGS: DIAGNOSTIC CATEGORY 0--INCOMPLETE: NEED ADDITIONAL IMAGING EVALUATION. Scattered benign-appearing calcifications are present. Scattered benign-appearing lymph nodes are present. RIGHT BREAST: Significant increase in size of a now 4.4 cm spiculated density / architectural distortion deep to a linear scar marker in an area previous biopsy evidenced by a micro clip marker upper outer quadrant. Given the significant interval mold insert changer the course of time, further evaluation with spot imaging and ultrasound is recommended. LEFT BREAST: No significant suspicious finding. RECOMMENDATIONS: ADDITIONAL MAMMOGRAPHIC VIEWS REQUIRED: RIGHT BREAST - spot compression ULTRASOUND: RIGHT BREAST PLEASE NOTE: A NORMAL MAMMOGRAM DOES NOT EXCLUDE THE POSSIBILITY OF BREAST CANCER. A CLINICALLY SUSPICIOUS PALPABLE LUMP SHOULD BE BIOPSIED. Dictated by: Juan Jones MD on 10/12/2023 at 07:54 Approved by: Juan Jones MD on 10/12/2023 at 07:57
--- OUTSIDE RECORDS SUMMARY | 2023-10-09 10:33 | XMS_ITS | CCD ---
Author Organization [facility] Care Team Providers Care Cash Applications Representative Name Role Phone DO Carin Brady Primary Care Provider MD Jan Solares Attending Provider CAMPOS, DR MONTOYA Admitting Unavailable HALADAY, DR MONTOYA [...] DR BOONE Waldrop Admitting Unavailable NADERER, DR BONOE Waldrop Attending Unavailable NADERER, DR BOONE Waldrop Primary Care Unavailable NADERER, DR BOONE Waldrop Consulting Unavailable NADERER, DR BOONE Waldrop Admitting Unavailable NADERER, DR BOONE Waldrop Attending Unavailable NADERER, DR BOONE Waldrop Primary Care Unavailable NADERER, DR BOONE Waldrop Consulting Unavailable HALADAY, DR MONTOYA Admitting Unavailable HALADAY, DR MONTOYA Attending Unavailable NADERER, DR BOONE Waldrop Primary Care Unavailable HALADAY, DR MONTOYA Consulting Unavailable Haladay, Jan Admitting Unavailable Haladay, Jna Attending Unavailable Carin Brady Primary Care Unavailable Haladadylan, Jan Admitting Unavailable Haladadylan, Jan Attending Unavailable Carin Brady Primary Care Unavailable Halperry, Jan Admitting Unavailable Haladadylan, Jan Attending Unavailable Carin Brady Primary Care Unavailable Haladadylan, Jan Admitting Unavailable Haladadylan, Jan Attending Unavailable Carin Brady Primary Care Unavailable Haladay, Jan Admitting Unavailable Jan Solares Attending Unavailable Carin Brady Primary Care Unavailable Boone Ewing MD Primary Care Provider SHAIKH RAMIREZ Attending Unavailable SHAIKH RAMIREZ Attending Unavailable BOONE EWING Attending Unavailable BOONE EWING Attending Unavailable BOONE EWING Attending Unavailable JAN SOLARES Referring Unavailable BOONE EWING Primary Care Unavailable JAN SMITH Attending Unavailable BOONE EWING Referring Unavailable BOONE EWING Primary Care Unavailable JAN SOLARES Referring Unavailable BOONE EWING Primary Care Unavailable JAN SOLARES Referring Unavailable BOONE EWING Primary Care Unavailable Allergies Allergy Classification Reported Allergen(s) Allergy Type Date of Onset Reaction(s) Facility Penicillins (antibiotic) (1 source) Amoxicillin; Translations: [AMOXICILLIN] Drug Allergy 04-10-2023 [facility] (1 source) Amoxicillin Drug Allergy 04-10-2023 Diarrhea [facility] Medications Current Medications Medication Drug Class(es) Dates [...] mg total) by mouth in the morning. 12/18/2018 Active aspirin 81 mg delayed release [...] FURTHER REFILLS. 90 tablet 3 01/08/2022 Active zglqmwhs-rhcf-UP-calci um &mins (THERAGRAN-M) 9 mg iron-400 mcg [...] every other day. Full dose , , Thu, Thu (2.5mg Thu, Thu, Thu) 0 04/10/2023 Discontinued [...] 0 09/20/2020 04/10/2023 Discontinued (Therapy completed) sod dblwn-ojnmqf-thfk ez bottle (NEILMED SINUS RINSE COMPLETE) packet with rinse device nasal solution (2 sources) Start: 08-22-2020 End: 04-10-2023 take 1 dose nasal route twice daily sod ywdyt-piqmfd-itvvx z bottle (NEILMED SINUS RINSE COMPLETE) packet with rinse device nasal solution Administer 1 packet into each nostril 2 (two) times a day. 60 packet 0 08/22/2020 04/10/2023 Discontinued (Therapy completed) Start: 08-22-2020 take 1 dose nasal ro [place] twice daily sod gcpug-wazbpy-qadmot bottle (NEILMED SINUS RINSE COMPLETE) packet with rinse device nasal solution Administer 1 packet into each nostril 2 (two) times a day. 60 packet 0 08/22/2020 Active Problems Active Problems Problem Classification Problem Date Documented Da te Episodic/Chronic Coronary atherosclerosis and other heart disease (4 sources) Coronary arteriosclerosis; Translations: [Atherosclerotic heart disease of [place] coronary artery without angina pectoris] Onset: 10-29-2018 Resolved: 10-21-2019 10-21-2019 Chronic Disorders of lipid metabolism (4 sources) Dyslipidemia; Translations: [Hyperlipidemia, unspecified] Onset: 10-21-2019 10-21-2019 Chronic Essential hypertension (2 sources) Essential hypertension; Translations: [Essential (primary) hypertension] Onset: 04-10-2023 04-10-2023 Chronic Genitourinary symptoms and ill-defined conditions (4 sources) Dysuria; Translations: [DYSURIA] Onset: 03-25-2022 Episodic Other aftercare (2 sources) 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; Translations: [OTH LONGTERM CURRENT DRUG THERAPY] Onset: 01-20-2022 Episodic Rheumatoid arthritis and related disease (12 sources) Rheumatoid arthritis, unspecified; Translations: [Rheumatoid arthritis [...] Reference Range Facility CBC AND AUTO DIFFon 10-02-19 24 ABSOLUTE BASOPHIL 0.1 X10E9/L Normal 0.0-0.2 [facility] Comment on above: Performed By: #### C MALI, 80264-5, STRATEGIC PARTNER DEVELOPMENT MANAGER, LIVR #### [facility] ([id number]) [address], [address] [place] [address] ABSOLUTE NEUTROPHIL 5.0 X10E9/L Normal 1.5-6.6 [facility] Comment on above: Performed By: #### C MALI, 12141-4, STRATEGIC PARTNER DEVELOPMENT MANAGER, LIVR #### [facility] ([id number]) [address] [facility] [facility], [address] [place] [address] Basophils/100 WBC (Bld) 1.4 % Normal [facility] Comment on above: Performed By: #### C MALI, 68849-1, STRATEGIC PARTNER DEVELOPMENT MANAGER, LIVR #### [facility] ([id number]) [address] [address] [place] [address] Eosinophils (Bld) [#/Vol] 0.3 10*3/uL Normal 0.0-0.4 [facility] Comment on above: Performed By: #### C MALI, 23895-6, STRATEGIC PARTNER DEVELOPMENT MANAGER, LIVR #### [facility] ([id number]) [address], [facility] [address] [place] [address] Eosinophils/100 WBC (Bld) 3.4 % Normal [facility] Comment on above: Performed By: #### C MALI, 33018-0, STRATEGIC PARTNER DEVELOPMENT MANAGER, LIVR #### [facility] ([id number]) [address] [address] [place] [address] Erythrocyte distribution width (RBC) [Ratio] 13.4 % Normal 11.5-15.0 [facility] Comment on above: Performed By: #### C MALI, 34633-8, STRATEGIC PARTNER DEVELOPMENT MANAGER, LIVR #### [facility] ([id number]) [address], [facility] [address] [place] [address] Hematocrit (Bld) [Volume fraction] 42.3 % Normal 35-47 [facility] Comment on above: Performed By: #### Ha SAMSON, 98430-1, STRATEGIC PARTNER DEVELOPMENT MANAGER, LIVR #### [facility] ([id number]) [address] [address] [place] [address] Hemoglobin (Bld) [Mass/Vol] 14.6 g/dL Normal 11.7-15.5 [facility] Comment on above: Performed By: #### C MALI, 05831-1, STRATEGIC PARTNER DEVELOPMENT MANAGER, LIVR #### [facility] ([id number]) [address] [address] [place] [address] Lymphocytes (Bld) [#/Vol] 1.0 10*3/uL Normal 1.0-3.5 [facility] Comment on above: Performed By: #### C MALI, 10399-8, STRATEGIC PARTNER DEVELOPMENT MANAGER, LIVR #### [facility] ([id number]) [address], [address] [place] [address] Lymphocytes/100 WBC (Bld) 13.3 % Normal [facility] Comment on above: Performed By: #### Ha SAMSON 91844-1, STRATEGIC PARTNER DEVELOPMENT MANAGER, LIVR #### [facility] ([id number]) [address], [address] [place] [address] MCH (RBC) [Entitic mass] 32.4 pg Normal 27-34 [facility] Comment on above: Performed By: #### Ha SAMSON 92494-0, STRATEGIC PARTNER DEVELOPMENT MANAGER, LIVR #### [facility] ([id number]) [address], [address] [place] [address] MCHC (RBC) [Mass/Vol] 34.6 g/dL Normal 32-36 [facility] Comment on above: Performed By: #### Ha SAMSON 32407-8, STRATEGIC PARTNER DEVELOPMENT MANAGER, LIVR #### [facility] ([id number]) [address], [address] [place] [address] MCV (RBC) [Entitic vol] 94 fL Normal 80-100 [facility] Comment on above: Performed By: #### Ha SAMSON 86301-7, STRATEGIC PARTNER DEVELOPMENT MANAGER, LIVR #### [facility] ([id number]) [address], [address] [place] [address] Monocytes (Bld) [#/Vol] 1.0 10*3/uL High 0-0.9 [facility] Comment on above: Performed By: #### Ha SAMSON, 72439-1, STRATEGIC PARTNER DEVELOPMENT MANAGER, LIVR #### [facility] ([id number]) [address], [address] [place] [address] Monocytes/100 WBC (Bld) 14.0 % Normal [facility] Comment on above: Performed By: #### C MALI, 21904-8, STRATEGIC PARTNER DEVELOPMENT MANAGER, LIVR #### [facility] ([id number]) [address], [address] [place] [address] Neutrophils/100 WBC (Bld) 67.9 % Normal [facility] Comment on above: Performed By: #### Ha SAMSON, 12280-3, STRATEGIC PARTNER DEVELOPMENT MANAGER, LIVR #### [facility] ([id number]) [address], [address] [place] [address] Platelet mean volume (Bld) [Entitic vol] 9.7 fL Normal 7-12 [facility] Comment on above: Performed By: #### Ha SAMSON, 69684-8, STRATEGIC PARTNER DEVELOPMENT MANAGER, LIVR #### [facility] ([id number]) [address], [address] [place] [address] Platelets (Bld) [#/Vol] 290 10*3/uL Normal 150-450 [facility] Comment on above: Performed By: #### Ha SAMSON, 35881-2, STRATEGIC PARTNER DEVELOPMENT MANAGER, LIVR #### [facility] ([id number]) [address], [address] [place] [address] RBC COUNT 4.53 X10E12/L Normal 3.80-5.20 [facility] Comment on above: Performed By: #### Ha SAMSON, 14719-9, STRATEGIC PARTNER DEVELOPMENT MANAGER, LIVR #### [facility] ([id number]) [address], [address] [place] [address] WBC (Bld) [#/Vol] 7.4 10*3/uL Normal 4.0-11.0 [facility] Comment on above: Performed By: #### Ha SAMSON, 26140-3, STRATEGIC PARTNER DEVELOPMENT MANAGER, LIVR #### [facility] ([id number]) [address], [address] [place] [address] CREATININEon 10-02-2023 Creatinine [Mass/Vol] 0.79 mg/dL Normal 0.40-1.00 [facility] Comment on above: Result Comment: METH OD TRACEABLE TO IDMS STANDARD Performed By: #### C BCA, STRATEGIC PARTNER DEVELOPMENT MANAGER, LIVR, 97850-8 #### [facility] ([id number]) [address] [address] GFR/1.73 sq M.predicted among non-blacks MDRD (S/P/Bld) [Vol rate/Area] 74 mL/min/{1.73_m2} Normal >59 [facility] Comment on above: Result Comment: Reported eGFR is based on the CKD-EPI 2020 equation that does not use a race coefficient. Performed By: #### C BCA, STRATEGIC PARTNER DEVELOPMENT MANAGER, LIVR, 44644-4 #### [facility] ([id number]) [address] [address] ESR Photometric method (Bld) [Velocity]on 10-02-2023 ESR, ERYTHROCYTE SEDIMENTATION RATE 7 mm/h Normal 0-30 [facility] Comment on above: Performed By: #### C MALI, 12894-8, STRATEGIC PARTNER DEVELOPMENT MANAGER, LIVR #### [facility] ([id number]) [address] [address] LIVER PANELon 10-02-2023 Albumin [Mass/Vol] 3.8 g/dL Normal 3.2-5.3 [facility] Comment on above: Performed By: #### C BCA, STRATEGIC PARTNER DEVELOPMENT MANAGER, LIVR, 84879-8 #### [facility] ([id number]) [address] [address] ALP [Catalytic activity/Vol] 86 U/L Normal 39-130 [facility] Comment on above: Performed By: #### C BCA, STRATEGIC PARTNER DEVELOPMENT MANAGER, LIVR, 95143-7 #### [facility] ([id number]) [address], [address] [address] ALT [Catalytic activity/Vol] 12 U/L Normal 0-31 [facility] Comment on above: Performed By: #### C BCA, STRATEGIC PARTNER DEVELOPMENT MANAGER, LIVR, 15474-3 #### [facility] ([id number]) [address], [address] [place] [address] AST [Catalytic activity/Vol] 23 U/L Normal 0-41 [facility] Comment on above: Performed By: #### C BCA, STRATEGIC PARTNER DEVELOPMENT MANAGER, LIVR, 22765-9 #### [facility] ([id number]) [address], [address] [place] [address] Bilirubin [Mass/Vol] 0.6 mg/dL Normal 0.3-1.2 [facility] Comment on above: Performed By: #### C BCA, STRATEGIC PARTNER DEVELOPMENT MANAGER, LIVR, 47208-9 #### [facility] ([id number]) [address], [address] [place] [address] Bilirubin.direct [Mass/Vol] 0.1 mg/dL Normal 0.0-0.4 [facility] Comment on above: Performed By: #### C BCA, STRATEGIC PARTNER DEVELOPMENT MANAGER, LIVR, 16435-3 #### [facility] ([id number]) [address], [address] [place] [address] Protein [Mass/Vol] 6.6 g/dL Normal 6.0-8.0 [facility] Comment on above: Performed By: #### C BCA, STRATEGIC PARTNER DEVELOPMENT MANAGER, LIVR, 65040-9 #### [facility] ([id number]) [address], [address] [place] [address] CBC AND AUTO DIFFon 07-09-19 24 ABSOLUTE BASOPHIL 0.1 X10E9/L Normal 0.0-0.2 [facility] Comment on above: Performed By: #### C BCA, 31290-6, STRATEGIC PARTNER DEVELOPMENT MANAGER, LIVR #### [facility] ([id number]) [address], [address] [place] [address] ABSOLUTE NEUTROPHIL 4.2 X10E9/L Normal 1.5-6.6 [facility] Comment on above: Performed By: #### Ha SAMSON, 39537-2, STRATEGIC PARTNER DEVELOPMENT MANAGER, LIVR #### [facility] ([id number]) [address], [address] [place] [address] Basophils/100 WBC (Bld) 2.2 % Normal [facility] Comment on above: Performed By: #### C MALI, 93554-5, STRATEGIC PARTNER DEVELOPMENT MANAGER, LIVR #### [facility] ([id number]) [address], [address] [place] [address] Eosinophils (Bld) [#/Vol] 0.2 10*3/uL Normal 0.0-0.4 [facility] Comment on above: Performed By: #### Ha SAMSON, 22451-9, STRATEGIC PARTNER DEVELOPMENT MANAGER, LIVR #### [facility] ([id number]) [address], [address] [place] [address] Eosinophils/100 WBC (Bld) 3.7 % Normal [facility] Comment on above: Performed By: #### Ha SAMSON, 90989-8, STRATEGIC PARTNER DEVELOPMENT MANAGER, LIVR #### [facility] ([id number]) [address], [facility] [address] [place] [address] Erythrocyte distribution width (RBC) [Ratio] 14.4 % Normal 11.5-15.0 [facility] Comment on above: Performed By: #### Ha SAMSON, 18713-3, STRATEGIC PARTNER DEVELOPMENT MANAGER, LIVR #### [facility] ([id number]) [address], [address] [place] [address] Hematocrit (Bld) [Volume fraction] 41.2 % Normal 35-47 [facility] Comment on above: Performed By: #### Ha SAMSON, 92945-2, STRATEGIC PARTNER DEVELOPMENT MANAGER, LIVR #### [facility] ([id number]) [address], [address] [place] [address] Hemoglobin (Bld) [Mass/Vol] 14.1 g/dL Normal 11.7-15.5 [facility] Comment on above: Performed By: #### Ha SAMSON, 42330-4, STRATEGIC PARTNER DEVELOPMENT MANAGER, LIVR #### [facility] ([id number]) [address] [address] Lymphocytes (Bld) [#/Vol] 1.2 10*3/uL Normal 1.0-3.5 [facility] Comment on above: Performed By: #### Ha SAMSON, 63055-8, STRATEGIC PARTNER DEVELOPMENT MANAGER, LIVR #### [facility] ([id number]) [address] [address] Lymphocytes/100 WBC (Bld) 17.9 % Normal [facility] Comment on above: Performed By: #### Ha SAMSON, 39306-1, STRATEGIC PARTNER DEVELOPMENT MANAGER, LIVR #### [facility] ([id number]) [address] [address] MCH (RBC) [Entitic mass] 32.0 pg Normal 27-34 [facility] Comment on above: Performed By: #### Ha SAMSON, 20487-3, STRATEGIC PARTNER DEVELOPMENT MANAGER, LIVR #### [facility] ([id number]) [address] [address] MCHC (RBC) [Mass/Vol] 34.3 g/dL Normal 32-36 [facility] Comment on above: Performed By: #### Ha SAMSON, 44113-1, STRATEGIC PARTNER DEVELOPMENT MANAGER, LIVR #### [facility] ([id number]) [address] [address] [place] [address] MCV (RBC) [Entitic vol] 93 fL Normal 80-100 [facility] Comment on above: Performed By: #### Ha SAMSON, 14449-8, STRATEGIC PARTNER DEVELOPMENT MANAGER, LIVR #### [facility] ([id number]) [address] [place] [address] Monocytes (Bld) [#/Vol] 0.9 10*3/uL Normal 0-0.9 [facility] Comment on above: Performed By: #### Ha SAMSON, 07261-0, STRATEGIC PARTNER DEVELOPMENT MANAGER, LIVR #### [facility] ([id number]) [address], [facility] [address] [place] [address] Monocytes/100 WBC (Bld) 13.2 % Normal [facility] Comment on above: Performed By: #### C MALI, 93769-2, STRATEGIC PARTNER DEVELOPMENT MANAGER, LIVR #### [facility] ([id number]) [address], [facility] [address] [place] [address] Neutrophils/100 WBC (Bld) 63.0 % Normal [facility] Comment on above: Performed By: #### Ha SAMSON, 24939-9, STRATEGIC PARTNER DEVELOPMENT MANAGER, LIVR #### [facility] ([id number]) [address], [facility] [address] [place] [address] Platelet mean volume (Bld) [Entitic vol] 9.7 fL Normal 7-12 [facility] Comment on above: Performed By: #### Ha SAMSON, 95181-7, STRATEGIC PARTNER DEVELOPMENT MANAGER, LIVR #### [facility] ([id number]) [address] [address] [place] [address] Platelets (Bld) [#/Vol] 275 10*3/uL Normal 150-450 [facility] Comment on above: Performed By: #### Ha SAMSON, 88457-1, STRATEGIC PARTNER DEVELOPMENT MANAGER, LIVR #### [facility] ([id number]) [address], [facility] [address] [place] [address] RBC COUNT 4.42 X10E12/L Normal 3.80-5.20 [facility] Comment on above: Performed By: #### Ha SAMSON, 21212-7, STRATEGIC PARTNER DEVELOPMENT MANAGER, LIVR #### [facility] ([id number]) [address] [address] WBC (Bld) [#/Vol] 6.6 10*3/uL Normal 4.0-11.0 [facility] Comment on above: Performed By: #### C MALI, 70522-5, STRATEGIC PARTNER DEVELOPMENT MANAGER, LIVR #### [facility] ([id number]) [address] [address] CREATININEon 07-09-2023 Creatinine [Mass/Vol] 0.70 mg/dL Normal 0.40-1.00 [facility] Comment on above: Result Comment: METH OD TRACEABLE TO IDMS STANDARD Performed By: #### C MALI 46139-2, STRATEGIC PARTNER DEVELOPMENT MANAGER, LIVR #### [facility] ([id number]) [address] [address] GFR/1.73 sq M.predicted among non-blacks MDRD (S/P/Bld) [Vol rate/Area] 86 mL/min/{1.73_m2} Normal >59 [facility] Comment on above: Result Comment: Reported eGFR is based on the CKD-EPI 2020 equation that does not use a race coefficient. Performed By: #### C MALI, 56463-7, STRATEGIC PARTNER DEVELOPMENT MANAGER, LIVR #### [facility] ([id number]) [address] [address] ESR Photometric method (Bld) [Velocity]on 07-09-2023 ESR, ERYTHROCYTE SEDIMENTATION RATE 5 mm/h Normal 0-30 [facility] Comment on above: Performed By: #### C MALI, 43860-5, STRATEGIC PARTNER DEVELOPMENT MANAGER, LIVR #### [facility] ([id number]) [address] [address] LIVER PANELon 07-09-2023 Albumin [Mass/Vol] 3.9 g/dL Normal 3.2-5.3 [facility] Comment on above: Performed By: #### C MALI, 96123-3, STRATEGIC PARTNER DEVELOPMENT MANAGER, LIVR #### [facility] ([id number]) [address], [address] [place] [address] ALP [Catalytic activity/Vol] 104 U/L Normal 39-130 [facility] Comment on above: Performed By: #### C BCA, 89664-6, STRATEGIC PARTNER DEVELOPMENT MANAGER, LIVR #### [facility] ([id number]) [address], [address] [place] [address] ALT [Catalytic activity/Vol] 21 U/L Normal 0-31 [facility] Comment on above: Performed By: #### C BCA, 07141-5, STRATEGIC PARTNER DEVELOPMENT MANAGER, LIVR #### [facility] ([id number]) [address], [address] [place] [address] AST [Catalytic activity/Vol] 32 U/L Normal 0-41 [facility] Comment on above: Performed By: #### C BCA, 35849-9, STRATEGIC PARTNER DEVELOPMENT MANAGER, LIVR #### [facility] ([id number]) [address], [address] [place] [address] Bilirubin [Mass/Vol] 0.5 mg/dL Normal 0.3-1.2 [facility] Comment on above: Performed By: #### C BCA, 37963-6, STRATEGIC PARTNER DEVELOPMENT MANAGER, LIVR #### [facility] ([id number]) [address], [address] [place] [address] Bilirubin.direct [Mass/Vol] 0.1 mg/dL Normal 0.0-0.4 [facility] Comment on above: Performed By: #### C BCA, 00811-3, STRATEGIC PARTNER DEVELOPMENT MANAGER, LIVR #### [facility] ([id number]) [address], [address] [place] [address] Protein [Mass/Vol] 6.8 g/dL Normal 6.0-8.0 [facility] Comment on above: Performed By: #### C BCA, 10743-5, STRATEGIC PARTNER DEVELOPMENT MANAGER, LIVR #### [facility] ([id number]) [address], [address] [place] [address] CBC AND AUTO DIFFon 05-13-19 24 ABSOLUTE BASOPHIL 0.1 X10E9/L Normal 0.0-0.2 [facility] Comment on above: Performed By: #### C BCA, STRATEGIC PARTNER DEVELOPMENT MANAGER, LIVR, 56749-4 #### [facility] ([id number]) [address], [address] [place] [address] ABSOLUTE NEUTROPHIL 4.4 X10E9/L Normal 1.5-6.6 [facility] Comment on above: Performed By: #### C BCA, STRATEGIC PARTNER DEVELOPMENT MANAGER, LIVR, 14746-3 #### [facility] ([id number]) [address] [address] [place] [address] Basophils/100 WBC (Bld) 1.9 % Normal [facility] Comment on above: Performed By: #### C BCA, STRATEGIC PARTNER DEVELOPMENT MANAGER, LIVR, 64500-5 #### [facility] ([id number]) [address] [address] [place] [address] Eosinophils (Bld) [#/Vol] 0.3 10*3/uL Normal 0.0-0.4 [facility] Comment on above: Performed By: #### C BCA, STRATEGIC PARTNER DEVELOPMENT MANAGER, LIVR, 07032-2 #### [facility] ([id number]) [address] [address] [place] [address] Eosinophils/100 WBC (Bld) 3.5 % Normal [facility] Comment on above: Performed By: #### C BCA, STRATEGIC PARTNER DEVELOPMENT MANAGER, LIVR, 81911-7 #### [facility] ([id number]) [address] [address] [place] [address] Erythrocyte distribution width (RBC) [Ratio] 13.6 % Normal 11.5-15.0 [facility] Comment on above: Performed By: #### C BCA, STRATEGIC PARTNER DEVELOPMENT MANAGER, LIVR, 95983-2 #### [facility] ([id number]) [address] [address] [place] [address] Hematocrit (Bld) [Volume fraction] 42.5 % Normal 35-47 [facility] Comment on above: Performed By: #### C BCA, STRATEGIC PARTNER DEVELOPMENT MANAGER, LIVR, 18533-3 #### [facility] ([id number]) [address] [facility] [address] [place] [address] Hemoglobin (Bld) [Mass/Vol] 14.2 g/dL Normal 11.7-15.5 [facility] Comment on above: Performed By: #### C BCA, STRATEGIC PARTNER DEVELOPMENT MANAGER, LIVR, 63487-5 #### [facility] ([id number]) [address] [address] [place] [address] Lymphocytes (Bld) [#/Vol] 1.4 10*3/uL Normal 1.0-3.5 [facility] Comment on above: Performed By: #### C BCA, STRATEGIC PARTNER DEVELOPMENT MANAGER, LIVR, 52502-0 #### [facility] ([id number]) [address] [address] [place] [address] Lymphocytes/100 WBC (Bld) 19.9 % Normal [facility] Comment on above: Performed By: #### C BCA, STRATEGIC PARTNER DEVELOPMENT MANAGER, LIVR, 86119-2 #### [facility] ([id number]) [address] [address] [place] [address] MCH (RBC) [Entitic mass] 30.8 pg Normal 27-34 [facility] Comment on above: Performed By: #### C BCA, STRATEGIC PARTNER DEVELOPMENT MANAGER, LIVR, 93875-2 #### [facility] ([id number]) [address] [address] [place] [address] MCHC (RBC) [Mass/Vol] 33.4 g/dL Normal 32-36 [facility] Comment on above: Performed By: #### C BCA, STRATEGIC PARTNER DEVELOPMENT MANAGER, LIVR, 40872-6 #### [facility] ([id number]) [address] [place] [address] MCV (RBC) [Entitic vol] 92 fL Normal 80-100 [facility] Comment on above: Performed By: #### C BCA, STRATEGIC PARTNER DEVELOPMENT MANAGER, LIVR, 18002-5 #### [facility] ([id number]) [address] [place] [address] Monocytes (Bld) [#/Vol] 0.9 10*3/uL Normal 0-0.9 [facility] Comment on above: Performed By: #### C BCA, STRATEGIC PARTNER DEVELOPMENT MANAGER, LIVR, 65654-3 #### [facility] ([id number]) [address] [facility] [address] [place] [address] Monocytes/100 WBC (Bld) 12.9 % Normal [facility] Comment on above: Performed By: #### C BCA, STRATEGIC PARTNER DEVELOPMENT MANAGER, LIVR, 48940-7 #### [facility] ([id number]) [address] [facility] [address] [place] [address] Neutrophils/100 WBC (Bld) 61.8 % Normal [facility] Comment on above: Performed By: #### C BCA, STRATEGIC PARTNER DEVELOPMENT MANAGER, LIVR, 37876-0 #### [facility] ([id number]) [address], [address] [place] [address] Platelet mean volume (Bld) [Entitic vol] 10.3 fL Normal 7-12 [facility] Comment on above: Performed By: #### C BCA, STRATEGIC PARTNER DEVELOPMENT MANAGER, LIVR, 17939-7 #### [facility] ([id number]) [address], [address] [place] [address] Platelets (Bld) [#/Vol] 288 10*3/uL Normal 150-450 [facility] Comment on above: Performed By: #### C BCA, STRATEGIC PARTNER DEVELOPMENT MANAGER, LIVR, 95137-2 #### [facility] ([id number]) [address] [address] [place] [address] RBC COUNT 4.61 X10E12/L Normal 3.80-5.20 [facility] Comment on above: Performed By: #### C BCA, STRATEGIC PARTNER DEVELOPMENT MANAGER, LIVR, 96506-6 #### [facility] ([id number]) [address] [address] WBC (Bld) [#/Vol] 7.2 10*3/uL Normal 4.0-11.0 [facility] Comment on above: Performed By: #### C BCA, STRATEGIC PARTNER DEVELOPMENT MANAGER, LIVR, 26670-5 #### [facility] ([id number]) [address] [address] CREATININEon 05-13-2023 Creatinine [Mass/Vol] 0.66 mg/dL Normal 0.40-1.00 [facility] Comment on above: Result Comment: METH OD TRACEABLE TO IDMS STANDARD Performed By: #### C BCA, STRATEGIC PARTNER DEVELOPMENT MANAGER, LIVR, 98982-9 #### [facility] ([id number]) [address] [address] GFR/1.73 sq M.predicted among non-blacks MDRD (S/P/Bld) [Vol rate/Area] 87 mL/min/{1.73_m2} Normal >59 [facility] Comment on above: Result Comment: Reported eGFR is based on the CKD-EPI 2020 equation that does not use a race coefficient. Performed By: #### C BCA, STRATEGIC PARTNER DEVELOPMENT MANAGER, LIVR, 23202-3 #### [facility] ([id number]) [address] [address] ESR Photometric method (Bld) [Velocity]on 05-13-2023 ESR, ERYTHROCYTE SEDIMENTATION RATE 10 mm/h Normal 0-30 [facility] Comment on above: Performed By: #### C BCA, STRATEGIC PARTNER DEVELOPMENT MANAGER, LIVR, 58860-3 #### [facility] ([id number]) [address] [place] [address] LIVER PANELon 05-13-2023 Albumin [Mass/Vol] 3.8 g/dL Normal 3.2-5.3 [facility] Comment on above: Performed By: #### C BCA, STRATEGIC PARTNER DEVELOPMENT MANAGER, LIVR, 21818-1 #### [facility] ([id number]) [address], [address] [place] [address] ALP [Catalytic activity/Vol] 114 U/L Normal 39-130 [facility] Comment on above: Performed By: #### C BCA, STRATEGIC PARTNER DEVELOPMENT MANAGER, LIVR, 94224-5 #### [facility] ([id number]) [address], [address] [place] [address] ALT [Catalytic activity/Vol] 17 U/L Normal 0-31 [facility] Comment on above: Performed By: #### C BCA, STRATEGIC PARTNER DEVELOPMENT MANAGER, LIVR, 97479-3 #### [facility] ([id number]) [address], [address] [place] [address] AST [Catalytic activity/Vol] 27 U/L Normal 0-41 [facility] Comment on above: Performed By: #### C BCA, STRATEGIC PARTNER DEVELOPMENT MANAGER, LIVR, 80048-7 #### [facility] ([id number]) [address], [address] [place] [address] Bilirubin [Mass/Vol] 0.6 mg/dL Normal 0.3-1.2 [facility] Comment on above: Performed By: #### C BCA, STRATEGIC PARTNER DEVELOPMENT MANAGER, LIVR, 18967-1 #### [facility] ([id number]) [address], [address] [place] [address] Bilirubin.direct [Mass/Vol] 0.1 mg/dL Normal 0.0-0.4 [facility] Comment on above: Performed By: #### C BCA, STRATEGIC PARTNER DEVELOPMENT MANAGER, LIVR, 56767-6 #### [facility] ([id number]) [address], [address] [place] [address] Protein [Mass/Vol] 6.5 g/dL Normal 6.0-8.0 [facility] Comment on above: Performed By: #### C BCA, STRATEGIC PARTNER DEVELOPMENT MANAGER, LIVR, 45036-6 #### [facility] ([id number]) [address] [facility] [place] [address] POCT EKGon 04-10-2023 [facility] C-Reactive Proteinon 023 C-Reactive Protein 0.6 mg/dL Normal 0.0-1.0 [facility] Comment on above: Result Comment: PERF ORMED BY: [place] [address] PATHOLOGIST INVERTED BLOCK OPERATOR TOBIAS SCOTT M.D. Performed By: #### C 3, C4 #### [facility] , #### ESR, CRP, CBC, CREAT, ADDONUAPLUS, HEPATIC #### [facility] [address] [place] [address] Complement C3on 05-28-2022 Complement C3 142 mg/dL Normal 82-[address] [facility] Comment on above: Result Comment: Perf ormed at: - [facility] [address] [id number] News Content Specialist: Guanaco Cui PhD, Phone: [phone] Performed By: #### C 3, C4 #### [facility] , #### ESR, CRP, CBC, CREAT, ADDONUAPLUS, HEPATIC #### [facility] [address] [place] [address] Complement C4on 05-28-2022 Complement C4 39 mg/dL High 12-[address] [facility] Comment on above: Result Comment: PERF ORMED BY: [place] [address] PATHOLOGIST INVERTED BLOCK OPERATOR TOBIAS SCOTT M.D. Performed By: #### C 3, C4 ####[facility] ,#### ESR, CRP, CBC, CREAT, ADDONUAPLUS, HEPATIC ####[facility] Complete Blood Count Auto Di ffon 05-28-2022 Basophils (Bld) [#/Vol] 0.1 10*3/uL Normal 0.0-0.[address] [facility] Comment on above: Performed By: #### C 3, C4 #### [facility] , #### ESR, CRP, CBC, CREAT, ADDONUAPLUS, HEPATIC #### [address] Basophils/100 WBC (Bld) 0.6 % Normal . [facility] Comment on above: Performed By: #### C 3, C4 #### [facility] , #### ESR, CRP, CBC, CREAT, ADDONUAPLUS, HEPATIC #### [address] Eosinophils (Bld) [#/Vol] 0.1 10*3/uL Normal 0.0-0.[address] [facility] Comment on above: Performed By: #### C 3, C4 #### [facility] , #### ESR, CRP, CBC, CREAT, ADDONUAPLUS, HEPATIC #### [place] [address] [place] Eosinophils/100 WBC (Bld) 1.1 % Normal . [facility] Comment on above: Performed By: #### C 3, C4 #### [facility] , #### ESR, CRP, CBC, CREAT, ADDONUAPLUS, HEPATIC #### [address] Erythrocyte distribution width (RBC) [Ratio] 13.9 % Normal 11.9-15.[address] [facility] Comment on above: Performed By: #### C 3, C4 #### [facility] , #### ESR, CRP, CBC, CREAT, ADDONUAPLUS, HEPATIC #### [address] Hematocrit (Bld) [Volume fraction] 47.4 % High 34.0-46.[address] [facility] Comment on above: Performed By: #### C 3, C4 #### [facility] , #### ESR, CRP, CBC, CREAT, ADDONUAPLUS, HEPATIC #### [address] Hemoglobin (Bld) [Mass/Vol] 15.6 g/dL High 11.8-15.[address] [facility] Comment on above: Performed By: #### C 3, C4 #### [facility] , #### ESR, CRP, CBC, CREAT, ADDONUAPLUS, HEPATIC #### [address] Lymphocytes (Bld) [#/Vol] 1.0 10*3/uL Normal 1.00-4.[address] [facility] Comment on above: Performed By: #### C 3, C4 #### [facility] , #### ESR, CRP, CBC, CREAT, ADDONUAPLUS, HEPATIC #### [address] Lymphocytes/100 WBC (Bld) 8.5 % Normal . [facility] Comment on above: Performed By: #### C 3, C4 #### [facility] , #### ESR, CRP, CBC, CREAT, ADDONUAPLUS, HEPATIC #### [address] MCH (RBC) [Entitic mass] 30.4 pg Normal 24.7-34.[address] [facility] Comment on above: Performed By: #### C 3, C4 #### [facility] , #### ESR, CRP, CBC, CREAT, ADDONUAPLUS, HEPATIC #### [address] MCV (RBC) [Entitic vol] 92.3 fL Normal 80-[address] [facility] Comment on above: Performed By: #### C 3, C4 #### [facility] , #### ESR, CRP, CBC, CREAT, ADDONUAPLUS, HEPATIC #### [address] Mean Corpuscular HGB Conc 32.9 g/dL Normal 32.0-35.[address] [facility] Comment on above: Performed By: #### C 3, C4 #### [facility] , #### ESR, CRP, CBC, CREAT, ADDONUAPLUS, HEPATIC #### [address] Monocytes (Bld) [#/Vol] 0.7 10*3/uL Normal 0.0-0.[address] [facility] Comment on above: Performed By: #### C 3, C4 #### [facility] , #### ESR, CRP, CBC, CREAT, ADDONUAPLUS, HEPATIC #### [address] Monocytes/100 WBC (Bld) 5.7 % Normal . [facility] Comment on above: Performed By: #### C 3, C4 #### [facility] , #### ESR, CRP, CBC, CREAT, ADDONUAPLUS, HEPATIC #### [address] Neutrophils (Bld) [#/Vol] 9.7 10*3/uL High 1.8-7.[address] [facility] Comment on above: Performed By: #### C 3, C4 #### [facility] , #### ESR, CRP, CBC, CREAT, ADDONUAPLUS, HEPATIC #### [address] Neutrophils/100 WBC (Bld) 84.1 % Normal . [facility] Comment on above: Performed By: #### C 3, C4 #### [facility] , #### ESR, CRP, CBC, CREAT, ADDONUAPLUS, HEPATIC #### [address] NRBC% 0.0 /100{WBC} Normal 0-0.[address] [facility] Comment on above: Performed By: #### C 3, C4 #### [facility] , #### ESR, CRP, CBC, CREAT, ADDONUAPLUS, HEPATIC #### [address] Platelet mean volume (Bld) [Entitic vol] 9.4 fL Normal 6.3-10.[address] [facility] Comment on above: Performed By: #### C 3, C4 #### [facility] , #### ESR, CRP, CBC, CREAT, ADDONUAPLUS, HEPATIC #### [address] Platelets (Bld) [#/Vol] 267 10*3/uL Normal 150-[address] [facility] Comment on above: Performed By: #### C 3, C4 #### [facility] , #### ESR, CRP, CBC, CREAT, ADDONUAPLUS, HEPATIC #### [address] RBC (Bld) [#/Vol] 5.13 10*6/uL High 3.60-5.00 [facility] Comment on above: Performed By: #### C 3, C4 #### [facility] , #### ESR, CRP, CBC, CREAT, ADDONUAPLUS, HEPATIC #### [address] WBC (Bld) [#/Vol] 11.6 10*3/uL Normal 3.8-11.6 [facility] Comment on above: Performed By: #### C 3, C4 #### [facility] , #### ESR, CRP, CBC, CREAT, ADDONUAPLUS, HEPATIC #### [facility] [address] [place] [address] [place] Creatinineon 05-28-2022 Creatinine [Mass/Vol] 0.81 mg/dL Normal 0.44-1.03 [facility] Comment on above: Performed By: #### C 3, C4 #### [facility] , #### ESR, CRP, CBC, CREAT, ADDONUAPLUS, HEPATIC #### [address] Estimated GFR ( [place] > [address] [facility] Comment on above: Result Comment: GFR estimated reference range: According to KDOQI guidelines, <60 ml/min/1.73m2 is sufficient to diagnose a patient with chronic kidney disease. Performed By: #### C 3, C4 #### [facility] , #### ESR, CRP, CBC, CREAT, ADDONUAPLUS, HEPATIC #### [facility] [address] [place] [address] Estimated GFR (Non- Am > 60 [facility] Comment on above: Performed By: #### C 3, C4 #### [facility] , #### ESR, CRP, CBC, CREAT, ADDONUAPLUS, HEPATIC #### [facility] [address] [place] [address] [place] Dipstick and Microscopicon 0 05-28-2022 Appearance (U) Clear Normal Clear [facility] Comment on above: Order Comment: Name Collection Type:: Clean-Voided Midstream Performed By: #### C 3, C4 #### [facility] , #### ESR, CRP, CBC, CREAT, ADDONUAPLUS, HEPATIC #### [facility] [address] [place] [address] Bacteria,Urine None Seen Normal None Seen [facility] Comment on above: Order Comment: Name Collection Type:: Clean-Voided Midstream Performed By: #### C 3, C4 #### [facility] , #### ESR, CRP, CBC, CREAT, ADDONUAPLUS, HEPATIC #### [facility] [address] [place] [address] Bilirubin,Urine Negative Normal Negative [facility] Comment on above: Order Comment: Name Collection Type:: Clean-Voided Midstream Performed By: #### C 3, C4 #### [facility] , #### ESR, CRP, CBC, CREAT, ADDONUAPLUS, HEPATIC #### [facility] [address] [place] [address] Color (U) Yellow Normal Yellow [facility] Comment on above: Order Comment: Name Collection Type:: Clean-Voided Midstream Performed By: #### C 3, C4 #### [facility] , #### ESR, CRP, CBC, CREAT, ADDONUAPLUS, HEPATIC #### [facility] [address] [place] [address] Glucose Ql (U) Normal Normal Normal [facility] Comment on above: Order Comment: Name Collection Type:: Clean-Voided Midstream Performed By: #### C 3, C4 #### [facility] , #### ESR, CRP, CBC, CREAT, ADDONUAPLUS, HEPATIC #### [facility] [address] [place] [address] Hyaline Casts,Urine 0-8 Normal 0-8 [facility] Comment on above: Order Comment: Name Collection Type:: Clean-Voided Midstream Result Comment: PERF ORMED BY: [place] [address] PATHOLOGIST INVERTED BLOCK OPERATOR TOBIAS SCOTT M.D. Performed By: #### C 3, C4 #### [facility] , #### ESR, CRP, CBC, CREAT, ADDONUAPLUS, HEPATIC #### [facility] [address] [place] [address] Ketones Ql (U) Negative Normal Negative [facility] Comment on above: Order Comment: Name Collection Type:: Clean-Voided Midstream Performed By: #### C 3, C4 #### [facility] , #### ESR, CRP, CBC, CREAT, ADDONUAPLUS, HEPATIC #### [address] Leukocyte esterase Test strip Ql (U) 3+ High Negative [facility] Comment on above: Order Comment: Name Collection Type:: Clean-Voided Midstream Performed By: #### C 3, C4 #### [facility] , #### ESR, CRP, CBC, CREAT, ADDONUAPLUS, HEPATIC #### [address] Nitrite,Urine Negative Normal Negative [facility] Comment on above: Order Comment: Name Collection Type:: Clean-Voided Midstream Performed By: #### C 3, C4 #### [facility] , #### ESR, CRP, CBC, CREAT, ADDONUAPLUS, HEPATIC #### [address] Occult Blood,Urine Negative Normal Negative [facility] Comment on above: Order Comment: Name Collection Type:: Clean-Voided Midstream Performed By: #### C 3, C4 #### [facility] , #### ESR, CRP, CBC, CREAT, ADDONUAPLUS, HEPATIC #### [address] pH (U) 7.5 [pH] Normal 5.0-9.[address] [facility] Comment on above: Order Comment: Name Collection Type:: Clean-Voided Midstream Performed By: #### C 3, C4 #### [facility] , #### ESR, CRP, CBC, CREAT, ADDONUAPLUS, HEPATIC #### [address] Protein,Urine Negative Normal Negative [facility] Comment on above: Order Comment: Name Collection Type:: Clean-Voided Midstream Performed By: #### C 3, C4 #### [facility] , #### ESR, CRP, CBC, CREAT, ADDONUAPLUS, HEPATIC #### [address] RBC LM.HPF (Urine sed) [#/Area] 0 /[HPF] Normal 0-[address] [facility] Comment on above: Order Comment: Name Collection Type:: Clean-Voided Midstream Performed By: #### C 3, C4 #### [facility] , #### ESR, CRP, CBC, CREAT, ADDONUAPLUS, HEPATIC #### [address] Specificy Hester,Urine 1.014 Normal 1.001-1.[address] [facility] Comment on above: Order Comment: Name Collection Type:: Clean-Voided Midstream Performed By: #### C 3, C4 #### [facility] , #### ESR, CRP, CBC, CREAT, ADDONUAPLUS, HEPATIC #### [address] Squamous Epithelial Cell,Urine 1-2 Normal 0-[address] [facility] Comment on above: Order Comment: Name Collection Type:: Clean-Voided Midstream Performed By: #### C 3, C4 #### [facility] , #### ESR, CRP, CBC, CREAT, ADDONUAPLUS, HEPATIC #### [address] Urobilinogen,Urine Normal Normal Normal [facility] Comment on above: Order Comment: Name Collection Type:: Clean-Voided Midstream Performed By: #### C 3, C4 #### [facility] , #### ESR, CRP, CBC, CREAT, ADDONUAPLUS, HEPATIC #### [facility] [address] [place] [address] WBC,Urine 3-4 Normal 0-[address] [facility] Comment on above: Order Comment: Name Collection Type:: Clean-Voided Midstream Performed By: #### C 3, C4 #### [facility] , #### ESR, CRP, CBC, CREAT, ADDONUAPLUS, HEPATIC #### [address] Erythrocyte Sedimentation Ra sarah 05-28-2022 ESR (Bld) [Velocity] 28 mm/h Normal 0-29 [facility] Comment on above: Result Comment: PERF ORMED BY: [place] [address] PATHOLOGIST INVERTED BLOCK OPERATOR TOBIAS SCOTT M.D. Performed By: #### C 3, C4 #### [facility] , #### ESR, CRP, CBC, CREAT, ADDONUAPLUS, HEPATIC #### [address] Hepatic Panelon 05-28-2022 Albumin [Mass/Vol] 3.8 g/dL Normal 3.2-5.5 [facility] Comment on above: Performed By: #### C 3, C4 #### [facility] , #### ESR, CRP, CBC, CREAT, ADDONUAPLUS, HEPATIC #### [facility] [address] [place] [address] Albumin/Globulin [Mass ratio] 1.4 {ratio} Normal [facility] Comment on above: Performed By: #### C 3, C4 #### [facility] , #### ESR, CRP, CBC, CREAT, ADDONUAPLUS, HEPATIC #### [facility] [address] [place] [address] ALP [Catalytic activity/Vol] 106 U/L High 32-[address] [facility] Comment on above: Performed By: #### C 3, C4 #### [facility] , #### ESR, CRP, CBC, CREAT, ADDONUAPLUS, HEPATIC #### [facility] [address] [place] [address] [place] ALT [Catalytic activity/Vol] 28 U/L Normal 10-[address] [facility] Comment on above: Performed By: #### C 3, C4 #### [facility] , #### ESR, CRP, CBC, CREAT, ADDONUAPLUS, HEPATIC #### [address] AST [Catalytic activity/Vol] 33 U/L Normal 10- [facility] Comment on above: Performed By: #### C 3, C4 #### [facility] , #### ESR, CRP, CBC, CREAT, ADDONUAPLUS, HEPATIC #### [facility] [address] [place] [address] Bilirubin [Mass/Vol] 0.8 mg/dL Normal 0.3-1.2 [facility] Comment on above: Performed By: #### C 3, C4 #### [facility] , #### ESR, CRP, CBC, CREAT, ADDONUAPLUS, HEPATIC #### [place] [address] [place] Bilirubin,Indirect 0.6 mg/dL Normal [facility] Comment on above: Performed By: #### C 3, C4 #### [facility] , #### ESR, CRP, CBC, CREAT, ADDONUAPLUS, HEPATIC #### [facility] [address] [place] [address] [place] Bilirubin.indirect [Mass/Vol] 0.2 mg/dL Normal 0.0-0.[address] [facility] Comment on above: Performed By: #### C 3, C4 #### [facility] , #### ESR, CRP, CBC, CREAT, ADDONUAPLUS, HEPATIC #### [facility] [address] Globulin (S) [Mass/Vol] 2.8 g/dL Normal [facility] Comment on above: Performed By: #### C 3, C4 #### [facility] , #### ESR, CRP, CBC, CREAT, ADDONUAPLUS, HEPATIC #### [facility] [address] Protein [Mass/Vol] 6.6 g/dL Normal 6.1-7.9 [facility] Comment on above: Performed By: #### C 3, C4 #### [facility] , #### ESR, CRP, CBC, CREAT, ADDONUAPLUS, HEPATIC #### [facility] [address] [place] [address] CULTURE URINEon 03-28-2022 CULTURE URINE Isolate 1 [...] Trimethoprim/Sulfamet hoxazole >=320 R F Normal [facility] Comment on above: Performed By: #### C ASA, LIVER #### [facility] [address] [address] [address] Meron Obando XR knee BI 2Von 02-19-2022 XR knee BI 2V [facility] [place] [address] [place] [address] XRay Report Signed Patient: Angelika Goncalves MR#: [id number] 810 : 1940 Acct:[id number] Age/Sex: 81 / F ADM Date: 02/19/22 Loc: ICXD Room: Type: [facility] Attending Dr: Jan Solares MD Copies to: [...] Andrew Lane M.D.02/19/2022 3:22 PM Dictation Location: [place] [address] Transcribed By: [facility] 02/19/221521 Dictated By: Andrew Lane DO 02/19/221516 Signed By: 02/19/2215[address] [facility] Mitochondrial (M2) Antibodyo n 02-12-2022 Mitochondrial (M2) Antibody <20.0 Normal 0.0-20.[address] [facility] Comment on above: Result Comment: Nega tive 0.0 - 20.0 Equivocal 20.1 - 24.9 Positive >24.9 Mitochondrial (M2) Antibodies are found in 90-96% of patients with primary biliary cirrhosis. Performed at: [facility] [address] [id number] News Content Specialist: Guanaco Cui PhD, Phone: [phone] PERFORMED BY: [place] [address] PATHOLOGIST INVERTED BLOCK OPERATOR TOIBAS SCOTT M.D. Performed By: #### M ITOM2 ####[facility] , CULTURE URINEon 02-10-2022 CULTURE URINE Culture Observations : ERIC TO FOLLOW. Isolate 1 Citrobacter spp. >100,000 cfu/mL of Normal [facility] Comment on above: Performed By: #### C ASA, LIVER #### [facility] [address] [address] [address] Meron Obando UA RANDOM W/MICROSCOPICon 11 -07-2022 BACTERIA MODERATE Abnormal NONE SEEN [facility] Comment on above: Performed By: #### U AMIC #### [facility] [address] [address] [address] Meron Obando Bilirubin Ql (U) Negative Normal NEGATIVE [facility] Comment on above: Performed By: #### U AMIC #### [facility] [address] [place] [address] Dr. Meron Obando CAST NONE SEEN Normal NONE SEEN [facility] Comment on above: Performed By: #### U AMIC #### [facility] [address] [address] [address] Meron Obando Clarity (U) CLEAR Normal CLEAR [facility] Comment on above: Performed By: #### U AMIC #### [facility] [address] [place] [address] Dr. Meron Obando Color (U) YELLOW Normal YELLOW [facility] Comment on above: Performed By: #### U AMIC #### [facility] [address] [address] [address] Meron Obando Crystals LM Nom (Urine sed) NONE SEEN Normal NONE SEEN [facility] Comment on above: Performed By: #### U AMIC #### [facility] [address] [place] [address] Dr. Meron Obando Epithelial cells LM Ql (Urine sed) FEW Abnormal NONE SEEN /RARE [facility] Comment on above: Performed By: #### U AMIC #### [facility] [address] [place] [address] Dr. Meron Obando Glucose Ql (U) Negative Normal NEGATIVE [facility] Comment on above: Performed By: #### U AMIC #### [facility] [address] [address] [address] Meron Obando Hemoglobin Ql (U) TRACE-INTACT Abnormal NEGATIVE [facility] Comment on above: Performed By: #### U AMIC #### [facility] [address] [place] [address] Dr. Meron Obando Ketones Ql (U) Negative Normal NEGATIVE [facility] Comment on above: Performed By: #### U AMIC #### [facility] [address] [address] [address] Meron Obando LEUKOCYTES LARGE Abnormal NEGATIVE [facility] Comment on above: Performed By: #### U AMIC #### [facility] [address] [address] [address] Meron Obando MUCOUS NONE SEEN Normal NONE SEEN [facility] Comment on above: Performed By: #### U AMIC #### [facility] [address] [address] [address] Meron Obando Nitrite Ql (U) Negative Normal NEGATIVE [facility] Comment on above: Performed By: #### U AMIC #### [facility] [address] [address] [address] Meron Obando pH (U) 6.0 [pH] Normal 5-9 [facility] Comment on above: Performed By: #### U AMIC #### [facility] [address] [address] [address] Meron Obando RBC 5-10 Abnormal 0-2 [facility] Comment on above: Performed By: #### U AMIC #### [facility] [address] [address] [address] Meron Obando SPEC GRAVITY <=1.005 Abnormal 1.005-<=1.025 [facility] Comment on above: Performed By: #### U AMIC #### [facility] [address] [address] [address] Meron Obando UA PROTEIN Negative Normal NEGATIVE/ TRACE [facility] Comment on above: Performed By: #### U AMIC #### [facility] [address] [address] [address] Meron Obando Urobilinogen Qn (U) 0.2 {Opal'U}/dL Normal 0.2 - 1. 0 [facility] Comment on above: Performed By: #### U AMIC #### [facility] [address] [address] [address] Meron Obando WBC 50-75 Abnormal NONE SEEN [facility] Comment on above: Performed By: #### U AMIC #### [facility] [address] [address] [address] Meron Obando C3 and C4 COMPLEMENTon 01-09 Complement C3, Serum 143 mg/dL Normal 82-167 [facility] Comment on above: Performed By: #### C ASA, LIVER #### [facility] [address] [address] [address] Meron Obando Complement C4, Serum 44 mg/dL Critically high 12-38 [facility] Comment on above: Performed By: #### C ASA, LIVER #### [facility] [address] [address] [address] Meron Obando COMPLEMENT TOTAL (CH50)on Complement, Total (CH50) >60 Normal >41 [facility] Comment on above: Result Comment: Age Male [...] values. Performed By: #### S EDR #### [facility] [address] [place] [address] Dr. Meron Obando CRPon 01-08-2022 CRP [Mass/Vol] mg/L Normal <=1.0 [facility] Comment on above: Performed By: #### L ADELA CRP #### [facility] [address] [place] [address] Dr. Meron Obando LIVER PROFILEon 01-08-2022 Albumin [Mass/Vol] 3.6 g/dL Normal 3.4-5.0 [facility] Comment on above: Performed By: #### L ADELA CRP #### [facility] [address] [place] [address] Dr. Meron Obando Albumin/Globulin [Mass ratio] 1.0 {ratio} Normal [facility] Comment on above: Performed By: #### L ADELA CRP #### [facility] [address] [address] [address] Meron Obando ALP [Catalytic activity/Vol] 127 U/L Critically high 46-116 [facility] Comment on above: Performed By: #### L IVER, CRP #### [facility] [address] [place] [address] Dr. Meron Obando ALT [Catalytic activity/Vol] 29 U/L Normal 14-59 [facility] Comment on above: Performed By: #### L IVER, CRP #### [facility] [address] [address] [address] Meron Obando AST [Catalytic activity/Vol] 30 U/L Normal 15-37 [facility] Comment on above: Performed By: #### L IVER, CRP #### [facility] [address] [place] [address] Dr. Meron Obando BILI, CONJUGATED 0.2 mg/dL Normal 0.0-0.2 [facility] Comment on above: Performed By: #### L ADELA, CRP #### [facility] [address] [place] [address] Dr. Meron Obando Bilirubin [Mass/Vol] 0.8 mg/dL Normal 0.2-1.0 [facility] Comment on above: Performed By: #### L ADELA, CRP #### [facility] [address] [place] [address] Dr. Meron Obando Globulin (S) [Mass/Vol] 3.7 g/dL Normal [facility] Comment on above: Performed By: #### L IVSURJIT, CRP #### [facility] [address] [place] [address] Dr. Meron Obnado Protein [Mass/Vol] 7.3 g/dL Normal 6.4-8.2 [facility] Comment on above: Performed By: #### L IVER, CRP #### [facility] [address] [place] [address] Dr. Meron Obando SED RATE [facility] 2021 SED RATE 35 mm/hr Critically high <=30 [facility] Comment on above: Performed By: #### C ASA, LIVER #### [facility] [address] [address] [address] Meron Obando UA RANDOM W/MICROSCOPICon BACTERIA MODERATE Abnormal NONE SEEN [facility] Comment on above: Performed By: #### S EDR #### [facility] [address] [address] [address] Meron Obando Bilirubin Ql (U) Negative Normal NEGATIVE [facility] Comment on above: Performed By: #### S EDR #### [facility] [address] [address] [address] Meron Obando CAST NONE SEEN Normal NONE SEEN [facility] Comment on above: Performed By: #### S EDR #### [facility] [address] [address] [address] Meron Obando Clarity (U) CLOUDY Abnormal CLEAR [facility] Comment on above: Performed By: #### S EDR #### [facility] [address] [address] [address] Meron Obando Color (U) LT. YELLOW Normal YELLOW [facility] Comment on above: Performed By: #### S EDR #### [facility] [address] [address] [address] Meron Obando Crystals LM Nom (Urine sed) NONE SEEN Normal NONE SEEN [facility] Comment on above: Performed By: #### S EDR #### [facility] [address] [place] [address] Dr. Meron Obando Epithelial cells LM Ql (Urine sed) FEW Abnormal NONE SEEN /RARE [facility] Comment on above: Performed By: #### S EDR #### [facility] [address] [address] [address] Meron Obando Glucose Ql (U) Negative Normal NEGATIVE [facility] Comment on above: Performed By: #### S EDR #### [facility] [address] [place] [address] Dr. Meron Obando Hemoglobin Ql (U) TRACE-INTACT Abnormal NEGATIVE [facility] Comment on above: Performed By: #### S EDR #### [facility] [address] [place] [address] Dr. Meron Obando Ketones Ql (U) Negative Normal NEGATIVE [facility] Comment on above: Performed By: #### S EDR #### [facility] [address] [place] [address] Dr. Meron Obando LEUKOCYTES LARGE Abnormal NEGATIVE [facility] Comment on above: Performed By: #### S EDR #### [facility] [address] [place] [address] Dr. Meron Obando MUCOUS NONE SEEN Normal NONE SEEN [facility] Comment on above: Performed By: #### S EDR #### [facility] [address] [place] [address] Dr. Meron Obando Nitrite Ql (U) Negative Normal NEGATIVE [facility] Comment on above: Performed By: #### S EDR #### [facility] [address] [place] [address] Dr. Meron Obando pH (U) 6.0 [pH] Normal 5-9 [facility] Comment on above: Performed By: #### S EDR #### [facility] [address] [place] [address] Dr. Meron Obando RBC 2-5 Abnormal 0-2 [facility] Comment on above: Performed By: #### S EDR #### [facility] [address] [place] [address] Dr. Meron Obando SPEC GRAVITY 1.010 Normal 1.005-<=1.025 [facility] Comment on above: Performed By: #### S EDR #### [facility] [address] [place] [address] Dr. Meron Obando UA PROTEIN Negative Normal NEGATIVE/ TRACE [facility] Comment on above: Performed By: #### S EDR #### [facility] [address] [place] [address] Dr. Meron Obando Urobilinogen Qn (U) 0.2 {Opal'U}/dL Normal 0.2 - 1. 0 [facility] Comment on above: Performed By: #### S EDR #### [facility] [address] [place] [address] Dr. Meron Obando WBC (U) [#/Vol] /uL Abnormal NONE SEEN [facility] Comment on above: Performed By: #### S EDR #### [facility] [address] [place] [address] Dr. Meron Obando CULTURE URINEon 12-15-2021 CULTURE [...] Trimethoprim/Sulfamet hoxazole <=20 S F Normal [facility] Comment on above: Performed By: #### C ASA LIVER #### [facility] [address] [place] [address] Dr. Meron Obando CBC AUTO DIFFon 12-10-2021 BASO # 0.1 103/ul Normal 0.0-0.1 [facility] Comment on above: Performed By: #### Ha BRAY LIVER #### [facility] [address] [place] [address] Dr. Meron Obando Basophils/100 WBC (Bld) 0.7 % Normal 0.2-2.0 [facility] Comment on above: Performed By: #### C ASA, LIVER #### [facility] [address] [place] [address] Dr. Meron Obando EO # 0.2 103/ul Normal 0.0-0.7 [facility] Comment on above: Performed By: #### C ASA, LIVER #### [facility] [address] [place] [address] Dr. Meron Obando Eosinophils/100 WBC (Bld) 2.4 % Normal 0.9-7.0 [facility] Comment on above: Performed By: #### C ASA, LIVER #### [facility] [address] [place] [address] Dr. Meron Obando Erythrocyte distribution width (RBC) [Ratio] 15.3 % Critically high 11.0-15.0 [facility] Comment on above: Performed By: #### C ASA, LIVER #### [facility] [address] [place] [address] Dr. Meron Obando Hematocrit (Bld) [Volume fraction] 45.6 % Normal 36.0-48.0 [facility] Comment on above: Performed By: #### C ASA, LIVER #### [facility] [address] [place] [address] Dr. Meron Obando Hemoglobin (Bld) [Mass/Vol] 15.3 g/dL Normal 12.0-16.0 [facility] Comment on above: Performed By: #### Ha BRAY, LIVER #### [facility] [address] [place] [address] Dr. Meron Obando IG # 0.03 10e3/ul Normal 0.00-0.03 [facility] Comment on above: Performed By: #### C ASA, LIVER #### [facility] [address] [place] [address] Dr. Meron Obando IG % 0.3 % Normal 0.0-0.5 [facility] Comment on above: Performed By: #### C ASA, LIVER #### [facility] [address] [place] [address] Dr. Meron Obando LYMPH # 1.6 103/ul Normal 1.2-3.8 [facility] Comment on above: Performed By: #### C ASA, LIVER #### [facility] [address] [place] [address] Dr. Meron Obando Lymphocytes/100 WBC (Bld) 17.0 % Critically low 20.5-60.0 [facility] Comment on above: Performed By: #### C ASA, LIVER #### [facility] [address] [place] [address] Dr. Meron Obando MANUAL DIFF REQ NO Normal [facility] Comment on above: Performed By: #### C ASA, LIVER #### [facility] [address] [place] [address] Dr. Meron Obando MCH (RBC) [Entitic mass] 31.4 pg Normal 26.7-34.0 [facility] Comment on above: Performed By: #### C ASA, LIVER #### [facility] [address] [place] [address] Dr. Meron Obando MCHC (RBC) [Mass/Vol] 33.6 g/dL Normal 29.9-35.2 [facility] Comment on above: Performed By: #### C ASA, LIVER #### [facility] [address] [place] [address] Dr. Meron Obando MCV (RBC) [Entitic vol] 93.6 fL Normal 81.0-99.0 [facility] Comment on above: Performed By: #### C ASA, LIVER #### [facility] [address] [place] [address] Dr. Meron Obando MONO # 1.0 103/ul Critically high 0.3-0.8 [facility] Comment on above: Performed By: #### C ASA, LIVER #### [facility] [address] [place] [address] Dr. Meron Obando Monocytes/100 WBC (Bld) 10.9 % Normal 1.7-12.0 [facility] Comment on above: Performed By: #### C ASA, LIVER #### [facility] [address] [place] [address] Dr. Meron Obando NEUT # 6.3 103/ul Normal 1.4-6.5 [facility] Comment on above: Performed By: #### C ASA, LIVER #### [facility] [address] [place] [address] Dr. Meron Obando Neutrophils/100 WBC (Bld) 68.7 % Normal 43.0-75.0 [facility] Comment on above: Performed By: #### C ASA, LIVER #### [facility] [address] [address] [address] Meron Obando Platelet mean volume (Bld) [Entitic vol] 10.9 fL Normal 9.5-13.5 [facility] Comment on above: Performed By: #### C ASA, LIVER #### [facility] [address] [address] [address] Meron Obando PLT 300 103/ul Normal 150-450 [facility] Comment on above: Performed By: #### C ASA, LIVER #### [facility] [address] [address] [address] Meron Obando RBC 4.87 106/ul Normal 4.20-5.40 [facility] Comment on above: Performed By: #### C ASA, LIVER #### [facility] [address] [place] [address] Dr. Meron Obando WBC 9.2 103/ul Normal 4.0-11.0 [facility] Comment on above: Performed By: #### C ASA, LIVER #### [facility] [address] [place] [address] Dr. Meron Obando CREATININEon 12-10-2021 Creatinine [Mass/Vol] 0.96 mg/dL Normal 0.55-1.02 [facility] Comment on above: Performed By: #### Ha BRAY, LIVER #### [facility] [address] [place] [address] Dr. Meron Obando EGFR-AF DJIBOUTIAN >60 Normal >=60 [facility] Comment on above: Performed By: #### Ha BRAY, LIVER #### [facility] [address] [place] [address] Dr. Meron Obando EGFR-NON AF DJIBOUTIAN 56 mL/min/1.73m2 Critically low >=60 [facility] Comment on above: Performed By: #### C ASA, LIVER #### [facility] [address] [place] [address] Dr. Meron Obando LIVER PROFILEon 12-10-2021 Albumin [Mass/Vol] 3.4 g/dL Normal 3.4-5.0 [facility] Comment on above: Performed By: #### C ASA, LIVER #### [facility] [address] [address] [address] Meron Obando Albumin/Globulin [Mass ratio] 0.9 {ratio} Normal [facility] Comment on above: Performed By: #### C ASA, LIVER #### [facility] [address] [address] [address] Meron Obando ALP [Catalytic activity/Vol] 149 U/L Critically high 46-116 [facility] Comment on above: Performed By: #### C ASA, LIVER #### [facility] [address] [address] [address] Meron Obando ALT [Catalytic activity/Vol] 36 U/L Normal 14-59 [facility] Comment on above: Performed By: #### C ASA, LIVER #### [facility] [address] [address] [address] Meron Obando AST [Catalytic activity/Vol] 40 U/L Critically high 15-37 [facility] Comment on above: Performed By: #### C ASA, LIVER #### [facility] [address] [address] [address] Meron Obando BILI, CONJUGATED 0.2 mg/dL Normal 0.0-0.2 [facility] Comment on above: Performed By: #### C ASA, LIVER #### [facility] [address] [address] [address] Meron Obando Bilirubin [Mass/Vol] 0.5 mg/dL Normal 0.2-1.0 [facility] Comment on above: Performed By: #### C ASA, LIVER #### [facility] [address] [address] [address] Meron Obando Globulin (S) [Mass/Vol] 3.7 g/dL Normal [facility] Comment on above: Performed By: #### C ASA, LIVER #### [facility] [address] [address] [address] Meron Obando Protein [Mass/Vol] 7.1 g/dL Normal 6.4-8.2 [facility] Comment on above: Performed By: #### C ASA, LIVER #### [facility] [address] [address] [address] Meron Obando SED RATE WESTERGRENon 2021 SED RATE 20 mm/hr Normal <=30 [facility] Comment on above: Performed By: #### S EDR #### [facility] [address] [address] [address] Meron Obando XR chest 2V*on 12-03-2021 XR chest 2V* [facility] [place] [address] [place] [address] XRay Report Signed Patient: Angelika Goncalves MR#: [id number] : 1940 Acct:[id number] Age/Sex: 81 / F ADM Date: 12/03/21 Loc: [facility] Room: Type: [facility] Attending Dr: Jan Solares MD Copies to: [...] Maria Ansari M.D.12/03/2021 2:07 PM Dictation Location: [facility]- Transcribed By: [facility] 12/03/21 140 Dictated By: Rosa Maria Ansari MD 12/03/21 1405 Signed By: 12/03/21 [address] [facility] CBC AUTO DIFFon 11-25-2021 BASO # 0.1 103/ul Normal 0.0-0.1 [facility] Comment on above: Performed By: #### C ASA, LIVER #### [facility] [address] [place] [address] Dr. Meron Obando Basophils/100 WBC (Bld) 1.1 % Normal 0.2-2.0 [facility] Comment on above: Performed By: #### C ASA, LIVER #### [facility] [address] [place] [address] Dr. Meron Obando EO # 0.2 103/ul Normal 0.0-0.7 [facility] Comment on above: Performed By: #### C ASA, LIVER #### [facility] [address] [place] [address] Dr. Meron Obando Eosinophils/100 WBC (Bld) 2.4 % Normal 0.9-7.0 [facility] Comment on above: Performed By: #### C ASA, LIVER #### [facility] [address] [place] [address] Dr. Meron Obando Erythrocyte distribution width (RBC) [Ratio] 15.1 % Critically high 11.0-15.0 [facility] Comment on above: Performed By: #### C ASA, LIVER #### [facility] [address] [place] [address] Dr. Meron Obando Hematocrit (Bld) [Volume fraction] 48.0 % Normal 36.0-48.0 [facility] Comment on above: Performed By: #### C ASA, LIVER #### [facility] [address] [place] [address] Dr. Merno Obando Hemoglobin (Bld) [Mass/Vol] 15.5 g/dL Normal 12.0-16.0 [facility] [facility] Comment on above: Performed By: #### C ASA, LIVER #### [facility] [address] [place] [address] Dr. Meron Obando IG # 0.03 10e3/ul Normal 0.00-0.03 [facility] [place] Comment on above: Performed By: #### C ASA, LIVER #### [facility] [address] [place] [address] Dr. Meron Obando IG % 0.3 % Normal 0.0-0.5 [facility] [place] Comment on above: Performed By: #### C ASA, LIVER #### [facility] [address] [place] [address] Dr. Meron Obando LYMPH # 1.7 103/ul Normal 1.2-3.8 [facility] [place] Comment on above: Performed By: #### C ASA, LIVER #### [facility] [address] [place] [address] Dr. Meron Obando Lymphocytes/100 WBC (Bld) 18.3 % Critically low 20.5-60.0 [facility] [place] Comment on above: Performed By: #### C ASA, LIVER #### [facility] [address] [place] [address] Dr. Meron Obando MANUAL DIFF REQ NO Normal [facility] Comment on above: Performed By: #### C ASA, LIVER #### [facility] [address] [place] [address] Dr. Meron Obando MCH (RBC) [Entitic mass] 30.7 pg Normal 26.7-34.0 [facility] [place] Comment on above: Performed By: #### C ASA, LIVER #### [facility] [address] [place] [address] Dr. Meron Obando MCHC (RBC) [Mass/Vol] 32.3 g/dL Normal 29.9-35.2 [facility] [place] Comment on above: Performed By: #### C ASA, LIVER #### [facility] [address] [place] [address] Dr. Meron Obando MCV (RBC) [Entitic vol] 95.0 fL Normal 81.0-99.0 [facility] Comment on above: Performed By: #### C ASA, LIVER #### [facility] [address] [place] [address] Dr. Meron Obando MONO # 1.0 103/ul Critically high 0.3-0.8 [facility] Comment on above: Performed By: #### C ASA, LIVER #### [facility] [address] [place] [address] Dr. Meron Obando Monocytes/100 WBC (Bld) 10.4 % Normal 1.7-12.0 [facility] Comment on above: Performed By: #### C ASA, LIVER #### [facility] [address] [place] [address] Dr. Meron Obando NEUT # 6.2 103/ul Normal 1.4-6.5 [facility] [place] Comment on above: Performed By: #### C ASA, LIVER #### [facility] [address] [place] [address] Dr. Meron Obando Neutrophils/100 WBC (Bld) 67.5 % Normal 43.0-75.0 [facility] Comment on above: Performed By: #### C ASA, LIVER #### [facility] [address] [place] [address] Dr. Meron Obando Platelet mean volume (Bld) [Entitic vol] 10.8 fL Normal 9.5-13.5 [facility] Comment on above: Performed By: #### Ha BRAY, LIVER #### [facility] [address] [place] [address] Dr. Meron Obando PLT 295 103/ul Normal 150-450 [facility] Comment on above: Performed By: #### C ASA, LIVER #### [facility] [address] [place] [address] Dr. Meron Obando RBC 5.05 106/ul Normal 4.20-5.40 [facility] Comment on above: Performed By: #### Ha BRAY, LIVER #### [facility] [address] [place] [address] Dr. Meron Obando WBC 9.2 103/ul Normal 4.0-11.0 [facility] Comment on above: Performed By: #### C ASA, LIVER #### [facility] [address] [place] [address] Dr. Meron Obando CREATININEon 11-25-2021 Creatinine [Mass/Vol] 1.03 mg/dL Critically high 0.55-1.02 [facility] [place] Comment on above: Performed By: #### S EDR #### [facility] [address] [address] [address] Meron Obando EGFR-AF DJIBOUTIAN 39 mL/min/1.73m2 Critically low >=60 [facility] [place] Comment on above: Performed By: #### S EDR #### [facility] [address] [address] [address] Meron Obando EGFR-NON AF DJIBOUTIAN 32 mL/min/1.73m2 Critically low >=60 [facility] [place] Comment on above: Performed By: #### S EDR #### [facility] [address] [place] [address] Dr. Meron Obando LIVER PROFILEon 11-25-2021 Albumin [Mass/Vol] 3.5 g/dL Normal 3.4-5.0 [facility] Comment on above: Performed By: #### S EDR #### [facility] [address] [place] [address] Dr. Meron Obando Albumin/Globulin [Mass ratio] 1.0 {ratio} Normal [facility] [place] Comment on above: Performed By: #### S EDR #### [facility] [address] [address] [address] Meron Obando ALP [Catalytic activity/Vol] 135 U/L Critically high 46-116 [facility] [place] Comment on above: Performed By: #### S EDR #### [facility] [address] [place] [address] Dr. Meron Obando ALT [Catalytic activity/Vol] 41 U/L Normal 14-59 [facility] Comment on above: Performed By: #### S EDR #### [facility] [address] [address] [address] Meron Obando AST [Catalytic activity/Vol] 39 U/L Critically high 15-37 [facility] [place] Comment on above: Performed By: #### S EDR #### [facility] [address] [place] [address] Dr. Meron Obando BILI, CONJUGATED 0.1 mg/dL Normal 0.0-0.2 [facility] Comment on above: Performed By: #### S EDR #### [facility] [address] [place] [address] Dr. Meron Obando Bilirubin [Mass/Vol] 0.5 mg/dL Normal 0.2-1.0 [facility] [place] Comment on above: Performed By: #### S EDR #### [facility] [address] [place] [address] Dr. Meron Obando Globulin (S) [Mass/Vol] 3.5 g/dL Normal [facility] [place] Comment on above: Performed By: #### S EDR #### [facility] [address] [place] [address] Dr. Meron Obando Protein [Mass/Vol] 7.0 g/dL Normal 6.4-8.2 [facility] Comment on above: Performed By: #### S EDR #### [facility] [address] [place] [address] Dr. Meron Obando SED RATE WESTERGRENon 2021 SED RATE 11 mm/hr Normal <=30 [facility] [place] Comment on above: Performed By: #### S EDR #### [facility] [address] [place] [address] Dr. Meron Obando CBC AUTO DIFFon 11-13-2021 BASO # 0.1 103/ul Normal 0.0-0.1 [facility] [place] Comment on above: Performed By: #### C BC #### [facility] [address] [place] [address] Dr. Meron Obando Basophils/100 WBC (Bld) 0.8 % Normal 0.2-2.0 [facility] [place] Comment on above: Performed By: #### C BC #### [facility] [address] [place] [address] Dr. Meron Obando EO # 0.2 103/ul Normal 0.0-0.7 [facility] [place] Comment on above: Performed By: #### C BC #### [facility] [address] [place] [address] Dr. Meron Obando Eosinophils/100 WBC (Bld) 1.9 % Normal 0.9-7.0 [facility] [place] Comment on above: Performed By: #### C BC #### [facility] [address] [place] [address] Dr. Meron Obando Erythrocyte distribution width (RBC) [Ratio] 14.4 % Normal 11.0-15.0 [facility] [place] Comment on above: Performed By: #### C BC #### [facility] [address] [place] [address] Dr. Meron Obando Hematocrit (Bld) [Volume fraction] 48.9 % Critically high 36.0-48.0 [facility] [place] Comment on above: Performed By: #### C BC #### [facility] [address] [place] [address] Dr. Meron Obando Hemoglobin (Bld) [Mass/Vol] 16.0 g/dL Normal 12.0-16.0 [facility] [place] Comment on above: Performed By: #### C BC #### [facility] [address] [place] [address] Dr. Meron Obando IG # 0.03 10e3/ul Normal 0.00-0.03 [facility] [place] Comment on above: Performed By: #### C BC #### [facility] [address] [place] [address] Dr. Meron Obando IG % 0.3 % Normal 0.0-0.5 [facility] Comment on above: Performed By: #### C BC #### [facility] [address] [place] [address] Dr. Meron Obando LYMPH # 2.5 103/ul Normal 1.2-3.8 [facility] [place] Comment on above: Performed By: #### C BC #### [facility] [address] [place] [address] Dr. Meron Obando Lymphocytes/100 WBC (Bld) 24.8 % Normal 20.5-60.0 [facility] [place] Comment on above: Performed By: #### C BC #### [facility] [address] [place] [address] Dr. Meron Obando MANUAL DIFF REQ NO Normal [facility] Comment on above: Performed By: #### C BC #### [facility] [address] [address] [address] Meron Obando MCH (RBC) [Entitic mass] 30.9 pg Normal 26.7-34.0 [facility] Comment on above: Performed By: #### C BC #### [facility] [address] [place] [address] Dr. Meron Obando MCHC (RBC) [Mass/Vol] 32.7 g/dL Normal 29.9-35.2 [facility] Comment on above: Performed By: #### C BC #### [facility] [address] [place] [address] Dr. Meron Obando MCV (RBC) [Entitic vol] 94.4 fL Normal 81.0-99.0 [facility] Comment on above: Performed By: #### C BC #### [facility] [address] [place] [address] Dr. Meron Obando MONO # 0.8 103/ul Normal 0.3-0.8 [facility] Comment on above: Performed By: #### C BC #### [facility] [address] [place] [address] Dr. Meron Obando Monocytes/100 WBC (Bld) 7.7 % Normal 1.7-12.0 [facility] Comment on above: Performed By: #### C BC #### [facility] [address] [place] [address] Dr. Mreon Obando NEUT # 6.4 103/ul Normal 1.4-6.5 [facility] Comment on above: Performed By: #### C BC #### [facility] [address] [place] [address] Dr. Meron Obando Neutrophils/100 WBC (Bld) 64.5 % Normal 43.0-75.0 [facility] Comment on above: Performed By: #### C BC #### [facility] [address] [place] [address] Dr. Meron Obando Platelet mean volume (Bld) [Entitic vol] 11.1 fL Normal 9.5-13.5 [facility] Comment on above: Performed By: #### C BC #### [facility] [address] [place] [address] Dr. Meron Obando PLT 306 103/ul Normal 150-450 [facility] Comment on above: Performed By: #### C BC #### [facility] [address] [place] [address] Dr. Meron Obando RBC 5.18 106/ul Normal 4.20-5.40 [facility] Comment on above: Performed By: #### C BC #### [facility] [address] [address] [address] Meron Obando WBC 9.9 103/ul Normal 4.0-11.0 [facility] Comment on above: Performed By: #### C BC #### [facility] [address] [place] [address] Dr. Meron Obando CREATININEon 11-13-2021 Creatinine [Mass/Vol] 1.01 mg/dL Normal 0.55-1.02 [facility] Comment on above: Performed By: #### C ASA, LIVER #### [facility] [address] [place] [address] Dr. Meron Obando EGFR-AF DJIBOUTIAN >60 Normal >=60 [facility] Comment on above: Performed By: #### C ASA, LIVER #### [facility] [address] [place] [address] Dr. Meron Obando EGFR-NON AF DJIBOUTIAN 53 mL/min/1.73m2 Critically low >=60 [facility] Comment on above: Performed By: #### C ASA, LIVER #### [facility] [address] [place] [address] Dr. Meron Obando LIVER PROFILEon 11-13-2021 Albumin [Mass/Vol] 3.4 g/dL Normal 3.4-5.0 [facility] Comment on above: Performed By: #### S EDR #### [facility] [address] [place] [address] Dr. Meron Obando Albumin/Globulin [Mass ratio] 0.9 {ratio} Normal [facility] Comment on above: Performed By: #### S EDR #### [facility] [address] [address] [address] Meron Obando ALP [Catalytic activity/Vol] 126 U/L Critically high 46-116 [facility] Comment on above: Performed By: #### S EDR #### [facility] [address] [place] [address] Dr. Meron Obando ALT [Catalytic activity/Vol] 58 U/L Normal 14-59 [facility] Comment on above: Performed By: #### S EDR #### [facility] [address] [address] [address] Meron Obando AST [Catalytic activity/Vol] 55 U/L Critically high 15-37 [facility] Comment on above: Performed By: #### S EDR #### [facility] [address] [place] [address] Dr. Meron Obando BILI, CONJUGATED 0.1 mg/dL Normal 0.0-0.2 [facility] Comment on above: Performed By: #### S EDR #### [facility] [address] [place] [address] Dr. Meron Obando Bilirubin [Mass/Vol] 0.5 mg/dL Normal 0.2-1.0 [facility] [place] Comment on above: Performed By: #### S EDR #### [facility] [address] [place] [address] Dr. Meron Obando Globulin (S) [Mass/Vol] 3.6 g/dL Normal [facility] [place] Comment on above: Performed By: #### S EDR #### [facility] [address] [place] [address] Dr. Meron Obando Protein [Mass/Vol] 7.0 g/dL Normal 6.4-8.2 [facility] Comment on above: Performed By: #### S EDR #### [facility] [address] [place] [address] Dr. Meron Obando SED RATE [facility] 2021 SED RATE 13 mm/hr Normal <=30 [facility] Comment on above: Performed By: #### S EDR #### [facility] [address] [place], [place] [id number] Dr. Meron Obando CBC AUTO DIFFon 10-28-2021 BASO # 0.1 103/ul Normal 0.0-0.1 [facility] [place] Comment on above: Performed By: #### C BC #### [facility] [address] [place] [address] Dr. Meron Obando Basophils/100 WBC (Bld) 1.1 % Normal 0.2-2.0 [facility] [place] Comment on above: Performed By: #### C BC #### [facility] [address] [place] [address] Dr. Meron Obando EO # 0.2 103/ul Normal 0.0-0.7 [facility] Comment on above: Performed By: #### C BC #### [facility] [address] [place] [address] Dr. Meron Obando Eosinophils/100 WBC (Bld) 2.3 % Normal 0.9-7.0 [facility] [place] Comment on above: Performed By: #### C BC #### [facility] [address] [place] [address] Dr. Meron Obando Erythrocyte distribution width (RBC) [Ratio] 13.8 % Normal 11.0-15.0 [facility] Comment on above: Performed By: #### C BC #### [facility] [address] [place] [address] Dr. Meron Obando Hematocrit (Bld) [Volume fraction] 46.7 % Normal 36.0-48.0 [facility] Comment on above: Performed By: #### C BC #### [facility] [address] [place] [address] Dr. Meron Obando Hemoglobin (Bld) [Mass/Vol] 15.1 g/dL Normal 12.0-16.0 [facility] Comment on above: Performed By: #### C BC #### [facility] [address] [place] [address] Dr. Meron Obando IG # 0.04 10e3/ul Critically high 0.00-0.03 [facility] Comment on above: Performed By: #### C BC #### [facility] [address] [place] [address] Dr. Meron Obando IG % 0.4 % Normal 0.0-0.5 [facility] Comment on above: Performed By: #### C BC #### [facility] [address] [place] [address] Dr. Meron Obando LYMPH # 1.8 103/ul Normal 1.2-3.8 [facility] Comment on above: Performed By: #### C BC #### [facility] [address] [place] [address] Dr. Meron Obando Lymphocytes/100 WBC (Bld) 18.7 % Critically low 20.5-60.0 [facility] Comment on above: Performed By: #### C BC #### [facility] [address] [place] [address] Dr. Meron Obando MANUAL DIFF REQ NO Normal [facility] Comment on above: Performed By: #### C BC #### [facility] [address] [place] [address] Dr. Meron Obando MCH (RBC) [Entitic mass] 30.5 pg Normal 26.7-34.0 [facility] Comment on above: Performed By: #### C BC #### [facility] [address] [place] [address] Dr. Meron Obando MCHC (RBC) [Mass/Vol] 32.3 g/dL Normal 29.9-35.2 [facility] Comment on above: Performed By: #### C BC #### [facility] [address] [place] [address] Dr. Meron Obando MCV (RBC) [Entitic vol] 94.3 fL Normal 81.0-99.0 [facility] Comment on above: Performed By: #### C BC #### [facility] [address] [place] [address] Dr. Meron Obando MONO # 1.1 103/ul Critically high 0.3-0.8 [facility] Comment on above: Performed By: #### C BC #### [facility] [address] [place] [address] Dr. Meron Obadno Monocytes/100 WBC (Bld) 11.0 % Normal 1.7-12.0 [facility] Comment on above: Performed By: #### C BC #### [facility] [address] [place] [address] Dr. Meron Obando NEUT # 6.4 103/ul Normal 1.4-6.5 [facility] Comment on above: Performed By: #### C BC #### [facility] [address] [place] [address] Dr. Meron Obando Neutrophils/100 WBC (Bld) 66.5 % Normal 43.0-75.0 [facility] Comment on above: Performed By: #### C BC #### [facility] [address] [place] [address] Dr. Meron Obando Platelet mean volume (Bld) [Entitic vol] 11.1 fL Normal 9.5-13.5 [facility] Comment on above: Performed By: #### C BC #### [facility] [address] [place] [address] Dr. Meron Obando PLT 249 103/ul Normal 150-450 [facility] Comment on above: Performed By: #### C BC #### [facility] [address] [place] [address] Dr. Meron Obando RBC 4.95 106/ul Normal 4.20-5.40 [facility] Comment on above: Performed By: #### C BC #### [facility] [address] [place] [address] Dr. Meron Obando WBC 9.7 103/ul Normal 4.0-11.0 [facility] Comment on above: Performed By: #### C BC #### [facility] [address] [place] [address] Dr. Meron Obando CREATININEon 10-28-2021 Creatinine [Mass/Vol] 0.98 mg/dL Normal 0.55-1.02 [facility] [place] Comment on above: Performed By: #### C ASA, LIVER #### [facility] [address] [place] [address] Dr. Meron Obando EGFR-AF DJIBOUTIAN >60 Normal >=60 [facility] Comment on above: Performed By: #### C ASA, LIVER #### [facility] [address] [place] [address] Dr. Meron Obando EGFR-NON AF DJIBOUTIAN 54 mL/min/1.73m2 Critically low >=60 [facility] Comment on above: Performed By: #### C ASA, LIVER #### [facility] [address] [place] [address] Dr. Meron Obando LIVER PROFILEon 10-28-2021 Albumin [Mass/Vol] 3.3 g/dL Critically low 3.4-5.0 [facility] Comment on above: Performed By: #### C ASA, LIVER #### [facility] [address] [place] [address] Dr. Meron Obando Albumin/Globulin [Mass ratio] 0.9 {ratio} Normal [facility] Comment on above: Performed By: #### C ASA, LIVER #### [facility] [address] [place] [address] Dr. Meron Obando ALP [Catalytic activity/Vol] 127 U/L Critically high 46-116 [facility] Comment on above: Performed By: #### C ASA, LIVER #### [facility] [address] [place] [address] Dr. Meron Obando ALT [Catalytic activity/Vol] 38 U/L Normal 14-59 [facility] Comment on above: Performed By: #### C ASA, LIVER #### [facility] [address] [place] [address] Dr. Meron Obando AST [Catalytic activity/Vol] 33 U/L Normal 15-37 [facility] Comment on above: Performed By: #### C ASA, LIVER #### [facility] [address] [place] [address] Dr. Meron Obando BILI, CONJUGATED 0.1 mg/dL Normal 0.0-0.2 [facility] Comment on above: Performed By: #### C ASA, LIVER #### [facility] [address] [place] [address] Dr. Meron Obando Bilirubin [Mass/Vol] 0.3 mg/dL Normal 0.2-1.0 [facility] [place] Comment on above: Performed By: #### C ASA, LIVER #### [facility] [address] [place] [address] Dr. Meron Obando Globulin (S) [Mass/Vol] 3.7 g/dL Normal [facility] Comment on above: Performed By: #### C ASA, LIVER #### [facility] [address] [address] [address] Meron Obando Protein [Mass/Vol] 7.0 g/dL Normal 6.4-8.2 [facility] Comment on above: Performed By: #### C ASA, LIVER #### [facility] [address] [place] [address] Dr. Meron Obando SED RATE [facility] 2021 SED RATE 8 mm/hr Normal <=30 [facility] Comment on above: Performed By: #### S EDR #### [facility] [address] [place] [address] Dr. Meron Obando Hepatitis B Core Antibodyon 10-09-2021 Hepatitis B Core Antibody Negative Normal Negative [facility] Comment on above: Result Comment: Perf ormed at: CB - [facility] [address] [id number] News Content Specialist: Guanaco Cui PhD, Phone: [phone] PERFORMED BY: [facility] [address] [place] [address] PATHOLOGIST INVERTED BLOCK OPERATOR TOBIAS SCOTT M.D. Performed By: #### H BCAB #### [facility] , No Panel InformationOrdered By: Jan Solares on 10-09-2021 Hepatitis B Core Total Antibody Negative Negative [facility] Comment on above: Performed at: CB - [facility] [address] [id number] News Content Specialist: Guanaco Cui PhD, Phone: [phone] Q - CULTURE,URINE,ROUTINEon 05-07-2021 CULTURE, URINE, ROUTINE SEE NOTE Normal [employer] Comment on above: Order Comment: [facility] performed at: [facility] [employer] [facility] [employer] [facility], [address] [facility], [address] [facility], [place], [address], Agent Broker: Harsh Hopkins MD [facility] Collection Date/Time: [facility] Results Received Date/Time: [facility] Reported Date/Time: Result Comment: CULT URE, URINE, ROUTINE Micro Number: [id number] Test Status: Final Specimen Source: Urine Specimen Quality: Adequate Result: No Growth Performed By: #### 6 [id number] #### [facility] [address] [place] [address] Vital Signs Date Time Vital Sign Value Performing Clinician Rachel wilkerson 04-10-2023 14:14-0500 Body height 152.4 cm Jan Smith MD Work Phone: [facility] 04-10-2023 14:14-0500 Body mass index (BMI) [Ratio] 21.87 kg/m2 Jan Smith MD Work Phone: [facility] 04-10-2023 14:14-0500 Body weight 50.8 kg Jan Smith MD Work Phone: [facility] 04-10-2023 14:14-0500 Diastolic blood pressure 80 mm[Hg] Jan Smith MD Work Phone: [facility] 04-10-2023 14:14-0500 Heart rate 84 /min Jan Smith MD Work Phone: [facility] 04-10-2023 14:14-0500 SaO2% (BldA) [Mass fraction] 91 % Jan Smith MD Work Phone: [facility] 04-10-2023 14:14-0500 Systolic blood pressure 130 mm[Hg] Jan Smith MD Work Phone: [facility] Encounters Encounter Date Encounter Type Care Provider Facility Start: 10-02-2023 End: 10-02-2023 ambulatory JAN SOLARES [facility] Start: 09-22-2023 End: 09-22-2023 ambulatory BOONE EWING Not Available Start: 07-29-2023 End: 07-29-2023 ambulatory BOONE EWING Not Available Start: 07-23-2023 End: 07-23-2023 ambulatory SHAIKH MILADHERMILO Not Available Start: 07-09-2023 End: 07-09-2023 ambulatory [facility] Start: 06-03-2023 End: 06-03-2023 ambulatory SHAIKH ASHLEY Not Available Start: 05-13-2023 End: 05-13-2023 ambulatory [facility] Start: 04-10-2023 End: 04-10-2023 Office outpatient visit 25 minutes Jan Smith MD Work Phone: [facility] Comment on above: 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); Dyslipidemia; Primary hypertension Start: 04-10-2023 End: 04-10-2023 ambulatory [place] [facility] Start: 04-09-2023 Telephone encounter Toyin Bass [facility] Start: 03-23-2023 End: 03-23-2023 ambulatory BOONE EWING Not Available Start: 05-28-2022 End: 05-28-2022 ambulatory Jan Solares Facility:[facility] Start: 03-25-2022 End: 03-25-[address] BOONE EWING Facility: Start: 02-19-2022 End: 02-19-2022 ambulatory Jan Solares Facility:[facility] Start: 02-12-2022 End: 02-12-2022 ambulatory Jan Chenadadylan Facility:[facility] Start: 02-12-2022 End: 02-12-2022 ambulatory DO Carin Brady Work Phone: [facility] Work Phone: Start: 02-12-2022 End: 02-12-2022 Patient encounter procedure DO Carin Brady Work Phone: [facility] [address] Start: 02-10-2022 End: 02-10-[address] BOONE EWING Facility:[facility] Start: 01-08-2022 End: 01-09-[address] JAN SOLARES Facility:[facility] Start: 12-12-2021 End: 12-12-[address] BOONE EWING Facility:[facility] Start: 12-10-2021 End: 01-04-[address] JAN SOLARES Facility:[facility] Start: 12-03-2021 End: 12-03-2021 ambulatory Jan Solares Facility:[facility] Start: 12-03-2021 End: 12-03-2021 Patient encounter procedure DO Carin Brady Work Phone: [facility] [address] Start: 11-13-2021 End: 12-04-[address] JAN SOLARES Facility:[facility] Start: 10-28-2021 End: 11-01-[address] JAN SOLARES Facility:[facility] Start: 10-09-2021 End: 10-09-2021 ambulatory Jan Solares Facility:[facility] Start: 10-09-2021 End: 10-09-2021 Patient encounter procedure DO Carin Brady Work Phone: [facility] [address] Procedures Date Procedure Procedure Detail Performing Clinician Start: 04-10-2023 Follow-up visit Follow-up JAN SMITH Start: 04-10-2023 Ecg routine ecg w/le ast 12 lds w/i&r Jan Smith MD Work Phone: Start: 12-03-2021 Plain chest X-ray DO Re jose eduardorochelle Brady Work Phone: Start: 01-07-2021 Adult depression screening assessment Toyin Bass [employer] Start: 08-30-2020 H/O: surgery S/P nasal septoplasty J ibeth Bass [employer] Start: 11-26-2018 History of coronary artery bypass grafting History of coronary artery bypass graft x 2 Toyin Bass [employer] History of coronary artery bypass grafting History of coronary artery bypass graft x 2 Jan Smith MD Work Phone: Plan of Treatment Date Care Activity Detail Author Start: 04-10-2024 Adult BMI Screening Adult BMI Screening [facility] Start: 04-10-2024 Tobacco Screening Tobacco Screening [facility] Start: 08-08-2023 Adult BMI Screening Adult BMI Screening [facility] Start: 04-10-2023 End: 04-10-2023 Patient encounter procedure 04/10/2023 2:30 PM EST Office Visit [facility] [address] [place] [address] Jan Smith MD [address] [place] [address] [facility] Start: 12-23-2022 Tobacco Screening Tobacco Screening [facility] Start: 01-07-2022 Depression Screening Depression Screening [facility] Start: 02-17-2020 Administration of varicella zoster vaccine Zoster (Shingles) Vaccine (3 of 3) [facility] Start: 2005 Fall Risk Screening Fall Risk Screening [facility] Start: 1959 DTaP,Tdap and Td Vaccines (1 - Tdap) DTaP,Tdap and Td Vaccines (1 - Tdap) [facility] Start: 1940 Medicare Annual Wellness Visit Medicare Annual Wellness Visit [facility] Hepatitis B core ant ibody [facility] Work Phone: Immunizations Immunization Date Immunization Notes Care Provider Fa cility 05-24-2020 COVID-19, mRNA, LNP- S, PF, 100mcg/0.5mL Dose Toyin Bass [facility] 04-27-2020 COVID-19, mRNA, LNP- S, PF, 100mcg/0.5mL Dose Toyin Bass [facility] 12-23-2019 zoster vaccine, unspecified formulation Toyin Bass [facility] Payers Date Payer Category Payer Self-pay [id number] 2011 Unknown [id number] 2005 Medicare MEDICARE MEDICAR E PART A & B [id number] 2005-Present [phone] [facility] [id number] [place] [address] [id number] 1959 Medicare [id number] 1959 Unknown [id number] 1940 Unknown [id number] 2.16.840.1.920378.3.579.2.593 1940 Unknown [id number] 2.16.840.1.546572.3.579.2.593 1940 Unknown [id number] 2.16.840.1.965948.3.579.2.593 1940 Unknown [id number] 2.16.840.1.345473.3.579.2.593 1940 Unknown [id number] 2.16.840.1.075283.3.579.2.593 1940 Unknown [id number] 2.16.840.1.086129.3.579.2.593 1940 Unknown [id number] 2.16.840.1.018025.3.579.2.593 1940 Unknown [id number] 2.16.840.1.733742.3.579.2.125 9 1940 Unknown [id number] 2.16.840.1.014168.3.579.2.125 9 1940 Unknown [id number] 2.16.840.1.173725.3.579.2.125 9 1940 Unknown [id number] 2.16.840.1.327990.3.579.2.125 9 1940 Unknown [id number] 2.16.840.1.711908.3.579.2.125 9 1940 Unknown [id number] 2.16.840.1.728362.3.579.2.128 6 1940 Unknown [id number] 2.16.840.1.476085.3.579.2.128 6 1940 Unknown [id number] 2.16.840.1.121417.3.579.2.128 6 1940 Unknown [id number] 2.16.840.1.124690.3.579.2.128 6 Unknown [id number] 2.16.840.1.454892.3.579.2.531 Unknown [id number] 2.16.840.1.968427.3.579.2.531 Unknown [id number] 2.16.840.1.934882.3.579.2.531 Unknown [id number] 2.16.840.1.998641.3.579.2.531 Unknown [id number] 2.16.840.1.558201.3.579.2.531 Social History Date Type Detail Facility Tobacco smoking stat us HIIS Unknown if ever smoked [facility] Work Phone: Start: 1940 Sex Assigned At Female F [facility] Start: 04-16-2017 End: 04-10-2023 Tobacco smoking status NHIS Never smoked tobacco [facility] Work Phone: Start: 04-16-2017 End: 04-10-2023 Tobacco use and exposure Smokeless tobacco non-user [facility] Start: 12-23-2021 End: 04-10-2023 Alcohol intake Current drinker of alcohol (finding) [facility] Start: 11-25-2018 End: 04-24-2020 History of Social function [facility] Start: 11-25-2018 End: 04-24-2020 Social connection and isolation panel [facility] Frequency of Communi cation with Friends and Family More than three times a week [facility] Start: 11-25-2018 Education 12 [facility] Start: 10-21-2019 Alcohol Comment rarely [facility] History of Present illness Narrative 04-10-2023 Jan Smith MD - 04/10/2023 2:30 PM EST Note Date & Type Note Facility 04-10-2023 History of Present illness Narrative Angelika Goncalves Date of visit: 04/10/2023 Date of : 1940 Age: 83 y.o. Patient Active Problem List Diagnosis Cervical spondylosis without myelopathy Iron deficiency anemia Coronary artery disease involving [place] coronary artery of [place] heart History of coronary artery bypass graft [...] FOR ANY FURTHER REFILLS. 90 tablet 3 bicscifr-vyud-CR-calcium &mins (THERAGRAN-M) 9 mg iron-400 mcg tablet [...] Sat, Sun (2.5mg Thu, Thu, Thu) sod serya-qjwlvx-psaegc bottle (NEILMED SINUS RINSE COMPLETE) packet with [...] palpitations. 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 CABGX2/LIMAX1/SVGX1/EVH LEFT UPPER LEG/MINA N/A 11/03/2018 Performed by Kel Sherman MD at [facility] Cardiac catheterization N/A 11/01/2018 Performed by Kalin Hamm MD at [facility] Coronary angiogram and left ventricular gram/pressure N/A 11/01/2018 Performed by Kalin Hamm MD at [facility] HYSTERECTOMY 1986 complete INJECTION MEDIAL BRANCH NERVE BLOCK: right C34 45 56mbb Right 09/07/2017 Performed by Kel Serna MD at [facility] INJECTION MEDIAL BRANCH NERVE BLOCK: right C34 45 56mbb Right 07/31/2017 Performed by Kel Serna MD at [facility] RADIO FREQUENCY ABLATION: right C34 45 56 Right 06/21/2018 Performed by Kel Serna MD at [facility] RADIOFREQUENCY ABLATION SPINAL: right C34 45 56rfa Right 09/25/2017 Performed by Kel Serna MD at [facility] RADIOFREQUENCY TURBINATE NASAL Bilateral 08/23/2020 Performed by Eddie Santana MD PhD at [facility] SEPTOPLASTY Circumferential 08/23/2020 Performed by Eddie Santana MD PhD at [facility] TONSILLECTOMY TUBAL LIGATION Family History Problem [...] 0 min Stress: Stress Concern Present (11/25/2018) [employer] - Occupational Stress Questionnaire Feeling of Stress : To some extent Social Connections: Moderately Integrated (11/25/2018) Social Connection and Isolation Panel [NHANES] Frequency of Communication with Friends and Family: More than three times a week Frequency of Social Gatherings with Friends and Family: Twice a week Attends Baptism Services: More than 4 times per year [...] by mouth 2 (two) times a day. xhbptynu-akfs-SS-calcium &mins (THERAGRAN-M) 9 mg iron-400 mcg tablet [...] Referring Physician: Boone Ewing MD [address] [place] [address] documented in this encounter [employer] Note 04-09-2023 Telephone Encounter - Toyin Bass CMA - 04/09/2023 12:26 PM EST Note Date & Type Note Facility 04-09-2023 Miscellaneous Notes Formattin g of this note might be different from the original. Called patient to remind them to bring their most current copy of their medication list with them to their appt. Patient verbalizes understanding. documented in this encounter [facility] Telephone encounter Note 04-09-2023 Telephone [...] Note Facility Evaluation note No assessment information [facility] Work Phone: Evaluation note Note Date & [...] section and content) DATE CREATED AUTHOR 05/10/2021 [facility] dical Specialist DATE CREATED AUTHOR AUTHOR'S ORGANIZ ATION 04/02/2022 [facility] DATE CREATED AUTHOR AUTHOR'S ORGANIZ ATION 06/07/2022 [facility] DATE CREATED AUTHOR AUTHOR'S ORGANIZ ATION 09/24/2023 [facility] dical Specialists EPIC DATE CREATED AUTHOR AUTHOR'S ORGANIZ ATION 10/04/2023 [facility] Care Teams (unrecognized sec tion and content) Team Status: Inactive Member Role Status Dates Carin Brady , Primary Care Provider Active Jan Solares MD Attending Provider Active Team Status: Active Member Role Status Dates Carin Brady , Primary Care Provider Active Cash Applications Representative Relationship Specialty Start Date End Date Boone Ewing MD [address] [place] [address] PCP - General Family Medicine 12/23/21 Cash Applications Representative Relationship Specialty Start Date End Date Boone Ewing MD [address] [place] [address] PCP - General Family Medicine 12/23/21 Goals [...] BE BASED ON THE PRIMARY CLINICAL RECORDS. [employer] provides no warranty or guarantee of the accuracy or completeness of information in this document.
== END 2023-10-09 10:31 | disposition home or self-care (01) ==
LOC: MAMMO 10:30
PROVIDERS: PCP Family Medicine; Visit Provider Family Medicine
DX: Z12.31 Encounter for screening mammogram for malignant neoplasm of breast (principal); R92.8 Other abnormal and inconclusive findings on diagnostic imaging of breast
CPT/HCPCS: 77063; 77067

== ENCOUNTER 2023-10-27 13:50 | Outpatient (OUT) | payer MEDICARE, OTHER, SELFPAY ==
--- NOTE | 2023-10-27 13:53 | MM_ITS ---
Patient Name: TRAVIS GONCALVES MR#: [id number] : 1940 Exam Date: 10/27/2023 Ordering Doctor: DR Boone Kidd . RADIOLOGY REPORT PROCEDURE: MM DIAGNOSTIC MAMMO UNILAT RT, 10/27/2023, 13:55 US BREAST RT LIMITED, 10/27/2023, 14:22 COMPARISON: MM TOMOSYNTHESIS SCREENING BI, 10/09/2023. MM TOMOSYNTHESIS SCREENING BI, 01/07/2017. MM TOMOSYNTHESIS SCREENING BI, 08/07/2015. INDICATIONS: Abnormal Mammogram Of Right Breast R92.8 Calculator Name NCI Breast Cancer Risk Assessment Tool 5 Year Breast Cancer Risk Not Reported. Lifetime Breast Cancer Risk Not Reported. Personal Breast Cancer No Personal Ovarian Cancer No Treatments None Family Cancers None LOCATION: [facility] BREAST COMPOSITION: The breasts are heterogeneously dense,which may obscure small masses. FINDINGS: DIAGNOSTIC CATEGORY 5--HIGHLY SUGGESTIVE OF MALIGNANCY. HIGH PROBABILITY OF MALIGNANCY BASED ON THE FOLLOWING: RIGHT BREAST: Spot magnification views demonstrate an approximately 4.5 cm spiculated mass versus architectural distortion within posterior upper-outer quadrant. Ultrasound evaluation demonstrates a heterogeneous lobular masslike area within the upper-outer quadrant, 10 o'clock position 4.9 cm from the nipple measuring 6.5 x 5.4 x 2.2 cm. ultrasound-guided biopsy is recommended. RECOMMENDATIONS: ULTRASOUND-GUIDED CORE BIOPSY: RIGHT BREAST PLEASE NOTE: A NORMAL MAMMOGRAM DOES NOT EXCLUDE THE POSSIBILITY OF BREAST CANCER. A CLINICALLY SUSPICIOUS PALPABLE LUMP SHOULD BE BIOPSIED. Dictated by: Robert Correa M.D. on 10/27/2023 at 14:37 Approved by: Robert Correa M.D. on 10/27/2023 at 14:52
--- OUTSIDE RECORDS SUMMARY | 2023-10-27 14:03 | XMS_ITS | CCD ---
Author Organization [facility] Care Team Providers Care Television Servicer Name Role Phone DO Carin Brady Primary Care Provider [phone] MD Jan Solares Attending Provider [phone] CAMPOS, DR MONTOYA Admitting Unavailable HALADAY, DR [...] Consulting Unavailable Haladay, Jan Admitting Unavailable Haladay, Jan Attending Unavailable [...] FURTHER REFILLS. 90 tablet 3 01/08/2022 Active yzpvcfox-xsfp-GH-calci um &mins (THERAGRAN-M) 9 mg iron-400 mcg [...] 0 09/20/2020 04/10/2023 Discontinued (Therapy completed) sod bqqzd-ammhsb-duzg ez bottle (NEILMED SINUS RINSE COMPLETE) packet with rinse device nasal solution (2 sources) Start: 08-22-2020 End: 04-10-2023 take 1 dose nasal route twice daily sod gtfcs-lfkiyb-sezki z bottle (NEILMED SINUS RINSE COMPLETE) packet with rinse device nasal solution Administer 1 packet into each nostril 2 (two) times a day. 60 packet 0 08/22/2020 04/10/2023 Discontinued (Therapy completed) Start: 08-22-2020 take 1 dose nasal ro jordan twice daily sod qjttn-vyoplt-rltkqi bottle (NEILMED SINUS RINSE COMPLETE) packet with rinse device nasal solution Administer 1 packet into each nostril 2 (two) times a day. 60 packet 0 08/22/2020 Active Problems Active Problems Problem Classification Problem Date Documented Da te Episodic/Chronic Coronary atherosclerosis and other heart disease (4 sources) Coronary arteriosclerosis; Translations: [Atherosclerotic heart disease of [place] coronary artery without angina pectoris] Onset: 10-29-2018 Resolved: 10-21-2019 10-21-2019 Chronic Disorders of lipid metabolism (4 sources) Dyslipidemia; Translations: [Hyperlipidemia, unspecified] Onset: 10-21-2019 10-21-2019 Chronic Essential hypertension (2 sources) Essential hypertension; Translations: [Essential (primary) hypertension] Onset: 04-10-2023 04-10-2023 Chronic Genitourinary symptoms and ill-defined conditions (4 sources) Dysuria; Translations: [DYSURIA] Onset: 03-25-2022 Episodic Other aftercare (2 sources) Other terminal superintendent (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; Translations: [OTH GROUP HOME CURRENT DRUG THERAPY] Onset: 01-20-2022 Episodic Rheumatoid [...] 24 ABSOLUTE BASOPHIL 0.1 X10E9/L Normal 0.0-0.2 [facility] Comment on above: Performed By: #### C MALI, 95056-2, CARTRIDGE FEEDER, LIVR #### [facility] ([id number]) [address], [address] [place] [address] ABSOLUTE NEUTROPHIL 5.0 X10E9/L Normal 1.5-6.6 [facility] Comment on above: Performed By: #### C MALI, 02740-0, CARTRIDGE FEEDER, LIVR #### [facility] ([id number]) [address] [place] [address] Basophils/100 WBC (Bld) 1.4 % Normal [facility] Comment on above: Performed By: #### C MALI, 63318-6, CARTRIDGE FEEDER, LIVR #### [facility] ([id number]) [address] [address] [place] [address] Eosinophils (Bld) [#/Vol] 0.3 10*3/uL Normal 0.0-0.4 [facility] Comment on above: Performed By: #### C MALI, 51403-8, CARTRIDGE FEEDER, LIVR #### [facility] ([id number]) [address], [facility] [address] [place] [address] Eosinophils/100 WBC (Bld) 3.4 % Normal [facility] Comment on above: Performed By: #### C MALI, 22818-9, CARTRIDGE FEEDER, LIVR #### [facility] ([id number]) [address] [address] [place] [address] Erythrocyte distribution width (RBC) [Ratio] 13.4 % Normal 11.5-15.0 [facility] Comment on above: Performed By: #### C MALI, 39557-0, CARTRIDGE FEEDER, LIVR #### [facility] ([id number]) [address], [facility] [address] [place] [address] Hematocrit (Bld) [Volume fraction] 42.3 % Normal 35-47 [facility] Comment on above: Performed By: #### Ha SAMSON, 00032-1, CARTRIDGE FEEDER, LIVR #### [facility] ([id number]) [address] [address] [place] [address] Hemoglobin (Bld) [Mass/Vol] 14.6 g/dL Normal 11.7-15.5 [facility] Comment on above: Performed By: #### C MALI, 78481-7, CARTRIDGE FEEDER, LIVR #### [facility] ([id number]) [address] [address] [place] [address] Lymphocytes (Bld) [#/Vol] 1.0 10*3/uL Normal 1.0-3.5 [facility] Comment on above: Performed By: #### C MALI, 74224-5, CARTRIDGE FEEDER, LIVR #### [facility] ([id number]) [address], [address] [place] [address] Lymphocytes/100 WBC (Bld) 13.3 % Normal [facility] Comment on above: Performed By: #### Ha SAMSON 56395-1, CARTRIDGE FEEDER, LIVR #### [facility] ([id number]) [address], [address] [place] [address] MCH (RBC) [Entitic mass] 32.4 pg Normal 27-34 [facility] Comment on above: Performed By: #### Ha SAMSON 13013-2, CARTRIDGE FEEDER, LIVR #### [facility] ([id number]) [address], [address] [place] [address] MCHC (RBC) [Mass/Vol] 34.6 g/dL Normal 32-36 [facility] Comment on above: Performed By: #### Ha SAMSON 55206-5, CARTRIDGE FEEDER, LIVR #### [facility] ([id number]) [address], [address] [place] [address] MCV (RBC) [Entitic vol] 94 fL Normal 80-100 [facility] Comment on above: Performed By: #### Ha SAMSON 95439-4, CARTRIDGE FEEDER, LIVR #### [facility] ([id number]) [address], [address] [place] [address] Monocytes (Bld) [#/Vol] 1.0 10*3/uL High 0-0.9 [facility] Comment on above: Performed By: #### Ha SAMSON, 02028-9, CARTRIDGE FEEDER, LIVR #### [facility] ([id number]) [address], [address] [place] [address] Monocytes/100 WBC (Bld) 14.0 % Normal [facility] Comment on above: Performed By: #### C MALI, 29835-6, CARTRIDGE FEEDER, LIVR #### [facility] ([id number]) [address], [address] [place] [address] Neutrophils/100 WBC (Bld) 67.9 % Normal [facility] Comment on above: Performed By: #### Ha SAMSON, 38276-3, CARTRIDGE FEEDER, LIVR #### [facility] ([id number]) [address], [address] [place] [address] Platelet mean volume (Bld) [Entitic vol] 9.7 fL Normal 7-12 [facility] Comment on above: Performed By: #### Ha SAMSON, 50820-6, CARTRIDGE FEEDER, LIVR #### [facility] ([id number]) [address], [address] [place] [address] Platelets (Bld) [#/Vol] 290 10*3/uL Normal 150-450 [facility] Comment on above: Performed By: #### Ha SAMSON, 73479-5, CARTRIDGE FEEDER, LIVR #### [facility] ([id number]) [address], [address] [place] [address] RBC COUNT 4.53 X10E12/L Normal 3.80-5.20 [facility] Comment on above: Performed By: #### Ha SAMSON, 09933-6, CARTRIDGE FEEDER, LIVR #### [facility] ([id number]) [address], [address] [place] [address] WBC (Bld) [#/Vol] 7.4 10*3/uL Normal 4.0-11.0 [facility] Comment on above: Performed By: #### Ha SAMSON, 26752-0, CARTRIDGE FEEDER, LIVR #### [facility] ([id number]) [address], [address] [place] [address] CREATININEon 10-02-2023 Creatinine [Mass/Vol] 0.79 mg/dL Normal 0.40-1.00 [facility] Comment on above: Result Comment: METH OD TRACEABLE TO IDMS STANDARD Performed By: #### C BCA, CARTRIDGE FEEDER, LIVR, 27565-3 #### [facility] ([id number]) [address] [address] GFR/1.73 sq M.predicted among non-blacks MDRD (S/P/Bld) [Vol rate/Area] 74 mL/min/{1.73_m2} Normal >59 [facility] Comment on above: Result Comment: Reported eGFR is based on the CKD-EPI 2020 equation that does not use a race coefficient. Performed By: #### C BCA, CARTRIDGE FEEDER, LIVR, 67206-3 #### [facility] ([id number]) [address] [address] ESR Photometric method (Bld) [Velocity]on 10-02-2023 ESR, ERYTHROCYTE SEDIMENTATION RATE 7 mm/h Normal 0-30 [facility] Comment on above: Performed By: #### C MALI, 29471-4, CARTRIDGE FEEDER, LIVR #### [facility] ([id number]) [address] [address] LIVER PANELon 10-02-2023 Albumin [Mass/Vol] 3.8 g/dL Normal 3.2-5.3 [facility] Comment on above: Performed By: #### C BCA, CARTRIDGE FEEDER, LIVR, 20088-1 #### [facility] ([id number]) [address] [address] ALP [Catalytic activity/Vol] 86 U/L Normal 39-130 [facility] Comment on above: Performed By: #### C BCA, CARTRIDGE FEEDER, LIVR, 19685-2 #### [facility] ([id number]) [address], [address] [address] ALT [Catalytic activity/Vol] 12 U/L Normal 0-31 [facility] Comment on above: Performed By: #### C BCA, CARTRIDGE FEEDER, LIVR, 50642-0 #### [facility] ([id number]) [address], [address] [place] [address] AST [Catalytic activity/Vol] 23 U/L Normal 0-41 [facility] Comment on above: Performed By: #### C BCA, CARTRIDGE FEEDER, LIVR, 49631-3 #### [facility] ([id number]) [address], [address] [place] [address] Bilirubin [Mass/Vol] 0.6 mg/dL Normal 0.3-1.2 [facility] Comment on above: Performed By: #### C BCA, CARTRIDGE FEEDER, LIVR, 88105-6 #### [facility] ([id number]) [address], [address] [place] [address] Bilirubin.direct [Mass/Vol] 0.1 mg/dL Normal 0.0-0.4 [facility] Comment on above: Performed By: #### C BCA, CARTRIDGE FEEDER, LIVR, 97028-7 #### [facility] ([id number]) [address], [address] [place] [address] Protein [Mass/Vol] 6.6 g/dL Normal 6.0-8.0 [facility] Comment on above: Performed By: #### C BCA, CARTRIDGE FEEDER, LIVR, 20829-9 #### [facility] ([id number]) [address], [address] [place] [address] CBC AND AUTO DIFFon 07-09-19 24 ABSOLUTE BASOPHIL 0.1 X10E9/L Normal 0.0-0.2 [facility] Comment on above: Performed By: #### C BCA, 89089-9, CARTRIDGE FEEDER, LIVR #### [facility] ([id number]) [address], [address] [place] [address] ABSOLUTE NEUTROPHIL 4.2 X10E9/L Normal 1.5-6.6 [facility] Comment on above: Performed By: #### Ha SAMSON, 36407-7, CARTRIDGE FEEDER, LIVR #### [facility] ([id number]) [address], [address] [place] [address] Basophils/100 WBC (Bld) 2.2 % Normal [facility] Comment on above: Performed By: #### C MALI, 69559-2, CARTRIDGE FEEDER, LIVR #### [facility] ([id number]) [address], [address] [place] [address] Eosinophils (Bld) [#/Vol] 0.2 10*3/uL Normal 0.0-0.4 [facility] Comment on above: Performed By: #### Ha SAMSON, 06051-3, CARTRIDGE FEEDER, LIVR #### [facility] ([id number]) [address], [address] [place] [address] Eosinophils/100 WBC (Bld) 3.7 % Normal [facility] Comment on above: Performed By: #### Ha SAMSON, 01712-5, CARTRIDGE FEEDER, LIVR #### [facility] ([id number]) [address], [facility] [address] [place] [address] Erythrocyte distribution width (RBC) [Ratio] 14.4 % Normal 11.5-15.0 [facility] Comment on above: Performed By: #### Ha SAMSON, 75672-9, CARTRIDGE FEEDER, LIVR #### [facility] ([id number]) [address], [address] [place] [address] Hematocrit (Bld) [Volume fraction] 41.2 % Normal 35-47 [facility] Comment on above: Performed By: #### Ha SAMSON, 75912-4, CARTRIDGE FEEDER, LIVR #### [facility] ([id number]) [address], [address] [place] [address] Hemoglobin (Bld) [Mass/Vol] 14.1 g/dL Normal 11.7-15.5 [facility] Comment on above: Performed By: #### Ha SAMSON, 85316-8, CARTRIDGE FEEDER, LIVR #### [facility] ([id number]) [address] [address] Lymphocytes (Bld) [#/Vol] 1.2 10*3/uL Normal 1.0-3.5 [facility] Comment on above: Performed By: #### Ha SAMSON, 87580-4, CARTRIDGE FEEDER, LIVR #### [facility] ([id number]) [address] [address] Lymphocytes/100 WBC (Bld) 17.9 % Normal [facility] Comment on above: Performed By: #### Ha SAMSON, 24324-3, CARTRIDGE FEEDER, LIVR #### [facility] ([id number]) [address] [address] MCH (RBC) [Entitic mass] 32.0 pg Normal 27-34 [facility] Comment on above: Performed By: #### Ha SAMSON, 00065-4, CARTRIDGE FEEDER, LIVR #### [facility] ([id number]) [address] [address] MCHC (RBC) [Mass/Vol] 34.3 g/dL Normal 32-36 [facility] Comment on above: Performed By: #### Ha SAMSON, 45081-5, CARTRIDGE FEEDER, LIVR #### [facility] ([id number]) [address] [address] [place] [address] MCV (RBC) [Entitic vol] 93 fL Normal 80-100 [facility] Comment on above: Performed By: #### Ha SAMSON, 78004-4, CARTRIDGE FEEDER, LIVR #### [facility] ([id number]) [address] [place] [place] [address] Monocytes (Bld) [#/Vol] 0.9 10*3/uL Normal 0-0.9 [facility] Comment on above: Performed By: #### Ha SAMSON, 41778-5, CARTRIDGE FEEDER, LIVR #### [facility] ([id number]) [address], [facility] [address] [place] [address] Monocytes/100 WBC (Bld) 13.2 % Normal [facility] Comment on above: Performed By: #### C MALI, 57786-6, CARTRIDGE FEEDER, LIVR #### [facility] ([id number]) [address], [facility] [address] [place] [address] Neutrophils/100 WBC (Bld) 63.0 % Normal [facility] Comment on above: Performed By: #### Ha SAMSON, 99417-9, CARTRIDGE FEEDER, LIVR #### [facility] ([id number]) [address], [facility] [address] [place] [address] Platelet mean volume (Bld) [Entitic vol] 9.7 fL Normal 7-12 [facility] Comment on above: Performed By: #### Ha SAMSON, 35643-6, CARTRIDGE FEEDER, LIVR #### [facility] ([id number]) [address] [address] [place] [address] Platelets (Bld) [#/Vol] 275 10*3/uL Normal 150-450 [facility] Comment on above: Performed By: #### Ha SAMSON, 34242-9, CARTRIDGE FEEDER, LIVR #### [facility] ([id number]) [address], [facility] [address] [place] [address] RBC COUNT 4.42 X10E12/L Normal 3.80-5.20 [facility] Comment on above: Performed By: #### Ha SAMSON, 40271-6, CARTRIDGE FEEDER, LIVR #### [facility] ([id number]) [address] [address] WBC (Bld) [#/Vol] 6.6 10*3/uL Normal 4.0-11.0 [facility] Comment on above: Performed By: #### C MALI, 57797-6, CARTRIDGE FEEDER, LIVR #### [facility] ([id number]) [address] [address] CREATININEon 07-09-2023 Creatinine [Mass/Vol] 0.70 mg/dL Normal 0.40-1.00 [facility] Comment on above: Result Comment: METH OD TRACEABLE TO IDMS STANDARD Performed By: #### C MALI 91646-7, CARTRIDGE FEEDER, LIVR #### [facility] ([id number]) [address] [address] GFR/1.73 sq M.predicted among non-blacks MDRD (S/P/Bld) [Vol rate/Area] 86 mL/min/{1.73_m2} Normal >59 [facility] Comment on above: Result Comment: Reported eGFR is based on the CKD-EPI 2020 equation that does not use a race coefficient. Performed By: #### C MALI, 02200-7, CARTRIDGE FEEDER, LIVR #### [facility] ([id number]) [address] [address] ESR Photometric method (Bld) [Velocity]on 07-09-2023 ESR, ERYTHROCYTE SEDIMENTATION RATE 5 mm/h Normal 0-30 [facility] Comment on above: Performed By: #### C MALI, 52348-1, CARTRIDGE FEEDER, LIVR #### [facility] ([id number]) [address] [address] LIVER PANELon 07-09-2023 Albumin [Mass/Vol] 3.9 g/dL Normal 3.2-5.3 [facility] Comment on above: Performed By: #### C MALI, 20743-4, CARTRIDGE FEEDER, LIVR #### [facility] ([id number]) [address], [address] [place] [address] ALP [Catalytic activity/Vol] 104 U/L Normal 39-130 [facility] Comment on above: Performed By: #### C BCA, 65450-6, CARTRIDGE FEEDER, LIVR #### [facility] ([id number]) [address], [address] [place] [address] ALT [Catalytic activity/Vol] 21 U/L Normal 0-31 [facility] Comment on above: Performed By: #### C BCA, 97749-6, CARTRIDGE FEEDER, LIVR #### [facility] ([id number]) [address], [address] [place] [address] AST [Catalytic activity/Vol] 32 U/L Normal 0-41 [facility] Comment on above: Performed By: #### C BCA, 48589-9, CARTRIDGE FEEDER, LIVR #### [facility] ([id number]) [address], [address] [place] [address] Bilirubin [Mass/Vol] 0.5 mg/dL Normal 0.3-1.2 [facility] Comment on above: Performed By: #### C BCA, 71533-2, CARTRIDGE FEEDER, LIVR #### [facility] ([id number]) [address], [address] [place] [address] Bilirubin.direct [Mass/Vol] 0.1 mg/dL Normal 0.0-0.4 [facility] Comment on above: Performed By: #### C BCA, 30496-8, CARTRIDGE FEEDER, LIVR #### [facility] ([id number]) [address], [address] [place] [address] Protein [Mass/Vol] 6.8 g/dL Normal 6.0-8.0 [facility] Comment on above: Performed By: #### C BCA, 24047-9, CARTRIDGE FEEDER, LIVR #### [facility] ([id number]) [address], [address] [place] [address] CBC AND AUTO DIFFon 05-13-19 24 ABSOLUTE BASOPHIL 0.1 X10E9/L Normal 0.0-0.2 [facility] Comment on above: Performed By: #### C BCA, CARTRIDGE FEEDER, LIVR, 15365-3 #### [facility] ([id number]) [address], [address] [place] [address] ABSOLUTE NEUTROPHIL 4.4 X10E9/L Normal 1.5-6.6 [facility] Comment on above: Performed By: #### C BCA, CARTRIDGE FEEDER, LIVR, 85296-5 #### [facility] ([id number]) [address] [address] [place] [address] Basophils/100 WBC (Bld) 1.9 % Normal [facility] Comment on above: Performed By: #### C BCA, CARTRIDGE FEEDER, LIVR, 21675-3 #### [facility] ([id number]) [address] [address] [place] [address] Eosinophils (Bld) [#/Vol] 0.3 10*3/uL Normal 0.0-0.4 [facility] Comment on above: Performed By: #### C BCA, CARTRIDGE FEEDER, LIVR, 79144-9 #### [facility] ([id number]) [address] [address] [place] [address] Eosinophils/100 WBC (Bld) 3.5 % Normal [facility] Comment on above: Performed By: #### C BCA, CARTRIDGE FEEDER, LIVR, 83706-3 #### [facility] ([id number]) [address] [address] [place] [address] Erythrocyte distribution width (RBC) [Ratio] 13.6 % Normal 11.5-15.0 [facility] Comment on above: Performed By: #### C BCA, CARTRIDGE FEEDER, LIVR, 25675-3 #### [facility] ([id number]) [address] [address] [place] [address] Hematocrit (Bld) [Volume fraction] 42.5 % Normal 35-47 [facility] Comment on above: Performed By: #### C BCA, CARTRIDGE FEEDER, LIVR, 60335-3 #### [facility] ([id number]) [address], [facility] [address] [place] [address] Hemoglobin (Bld) [Mass/Vol] 14.2 g/dL Normal 11.7-15.5 [facility] Comment on above: Performed By: #### C BCA, CARTRIDGE FEEDER, LIVR, 10217-0 #### [facility] ([id number]) [address] [address] [place] [address] Lymphocytes (Bld) [#/Vol] 1.4 10*3/uL Normal 1.0-3.5 [facility] Comment on above: Performed By: #### C BCA, CARTRIDGE FEEDER, LIVR, 15350-4 #### [facility] ([id number]) [address] [address] [place] [address] Lymphocytes/100 WBC (Bld) 19.9 % Normal [facility] Comment on above: Performed By: #### C BCA, CARTRIDGE FEEDER, LIVR, 64032-8 #### [facility] ([id number]) [address] [address] [place] [address] MCH (RBC) [Entitic mass] 30.8 pg Normal 27-34 [facility] Comment on above: Performed By: #### C BCA, CARTRIDGE FEEDER, LIVR, 31493-3 #### [facility] ([id number]) [address] [place] [address] MCHC (RBC) [Mass/Vol] 33.4 g/dL Normal 32-36 [facility] Comment on above: Performed By: #### C BCA, CARTRIDGE FEEDER, LIVR, 24729-7 #### [facility] ([id number]) [address], [address] [place] [address] MCV (RBC) [Entitic vol] 92 fL Normal 80-100 [facility] Comment on above: Performed By: #### C BCA, CAR[employer]IDGE FEEDER, LIVR, 65182-8 #### [facility] ([id number]) [address], [address] [place] [address] Monocytes (Bld) [#/Vol] 0.9 10*3/uL Normal 0-0.9 [facility] Comment on above: Performed By: #### C BCA, CAR[employer]ID[employer] FEEDER, LIVR, 17435-6 #### [facility] ([id number]) [address], [facility] [address] [place] [address] Monocytes/100 WBC (Bld) 12.9 % Normal [facility] Comment on above: Performed By: #### C BCA, CAR[employer]GE FEEDER, LIVR, 45161-1 #### [facility] ([id number]) [address], [facility] [address] [place] [address] Neutrophils/100 WBC (Bld) 61.8 % Normal [facility] Comment on above: Performed By: #### C BCA, CAR[employer]IDGE FEEDER, LIVR, 94160-2 #### [facility] ([id number]) [address], [address] [place] [address] Platelet mean volume (Bld) [Entitic vol] 10.3 fL Normal 7-12 [facility] Comment on above: Performed By: #### C BCA, CAR[employer]GE FEEDER, LIVR, 32438-3 #### [facility] ([id number]) [address], [address] [place] [address] Platelets (Bld) [#/Vol] 288 10*3/uL Normal 150-450 [facility] Comment on above: Performed By: #### C BCA, CAR[employer]GE FEEDER, LIVR, 34784-4 #### [facility] ([id number]) [address] [address] [place] [address] RBC COUNT 4.61 X10E12/L Normal 3.80-5.20 [facility] Comment on above: Performed By: #### C BCA, CARTRIDGE FEEDER, LIVR, 20764-2 #### [facility] ([id number]) [address] [address] WBC (Bld) [#/Vol] 7.2 10*3/uL Normal 4.0-11.0 [facility] Comment on above: Performed By: #### C BCA, CARTRIDGE FEEDER, LIVR, 00173-1 #### [facility] ([id number]) [address] [address] CREATININEon 05-13-2023 Creatinine [Mass/Vol] 0.66 mg/dL Normal 0.40-1.00 [facility] Comment on above: Result Comment: METH OD TRACEABLE TO IDMS STANDARD Performed By: #### C BCA, CARTRIDGE FEEDER, LIVR, 90290-1 #### [facility] ([id number]) [address] [address] GFR/1.73 sq M.predicted among non-blacks MDRD (S/P/Bld) [Vol rate/Area] 87 mL/min/{1.73_m2} Normal >59 [facility] Comment on above: Result Comment: Reported eGFR is based on the CKD-EPI 2020 equation that does not use a race coefficient. Performed By: #### C BCA, CARTRIDGE FEEDER, LIVR, 89515-9 #### [facility] ([id number]) [address] [address] ESR Photometric method (Bld) [Velocity]on 05-13-2023 ESR, ERYTHROCYTE SEDIMENTATION RATE 10 mm/h Normal 0-30 [facility] Comment on above: Performed By: #### C BCA, CARTRIDGE FEEDER, LIVR, 43962-7 #### [facility] ([id number]) [address], [address] [place] [address] LIVER PANELon 05-13-2023 Albumin [Mass/Vol] 3.8 g/dL Normal 3.2-5.3 [facility] Comment on above: Performed By: #### C BCA, CARTRIDGE FEEDER, LIVR, 26232-9 #### [facility] ([id number]) [address], [address] [place] [address] ALP [Catalytic activity/Vol] 114 U/L Normal 39-130 [facility] Comment on above: Performed By: #### C BCA, CARTRIDGE FEEDER, LIVR, 70743-8 #### [facility] ([id number]) [address], [address] [place] [address] ALT [Catalytic activity/Vol] 17 U/L Normal 0-31 [facility] Comment on above: Performed By: #### C BCA, CARTRIDGE FEEDER, LIVR, 18867-3 #### [facility] ([id number]) [address], [address] [place] [address] AST [Catalytic activity/Vol] 27 U/L Normal 0-41 [facility] Comment on above: Performed By: #### C BCA, CARTRIDGE FEEDER, LIVR, 68320-0 #### [facility] ([id number]) [address], [address] [place] [address] Bilirubin [Mass/Vol] 0.6 mg/dL Normal 0.3-1.2 [facility] Comment on above: Performed By: #### C BCA, CARTRIDGE FEEDER, LIVR, 89731-9 #### [facility] ([id number]) [address], [address] [place] [address] Bilirubin.direct [Mass/Vol] 0.1 mg/dL Normal 0.0-0.4 [facility] Comment on above: Performed By: #### C BCA, CARTRIDGE FEEDER, LIVR, 75087-9 #### [facility] ([id number]) [address], [address] [place] [address] Protein [Mass/Vol] 6.5 g/dL Normal 6.0-8.0 [facility] Comment on above: Performed By: #### C BCA, CARTRIDGE FEEDER, LIVR, 96427-8 #### [facility] ([id number]) [address] [place] [address] POCT EKGon 04-10-2023 [facility] C-Reactive Proteinon 023 C-Reactive Protein 0.6 mg/dL Normal 0.0-1.0 [facility] Comment on above: Result Comment: PERF ORMED BY: [place] [address] PATHOLOGIST EMPLOYEE COMMUNICATIONS INTERN TOBIAS SCOTT M.D. Performed By: #### C 3, C4 #### [facility] , #### ESR, CRP, CBC, CREAT, ADDONUAPLUS, HEPATIC #### [facility] [address] [place] [address] Complement C3on 05-28-2022 Complement C3 142 mg/dL Normal 82-167 [facility] Comment on above: Result Comment: Perf ormed at: - [facility] [address] [id number] Coordinate Measuring Machine Technician: Guanaco Cui PhD, Phone: [phone] Performed By: #### C 3, C4 #### [facility] , #### ESR, CRP, CBC, CREAT, ADDONUAPLUS, HEPATIC #### [facility] [address] [place] [address] Complement C4on 05-28-2022 Complement C4 39 mg/dL High 12-38 [facility] Comment on above: Result Comment: PERF ORMED BY: [place] [address] PATHOLOGIST EMPLOYEE COMMUNICATIONS INTERN TOBIAS SCOTT M.D. Performed By: #### C 3, C4 ####[facility] ,#### ESR, CRP, CBC, CREAT, ADDONUAPLUS, HEPATIC ####[facility] Complete Blood Count Auto Di ffon 05-28-2022 Basophils (Bld) [#/Vol] 0.1 10*3/uL Normal 0.0-0.2 [facility] Comment on above: Performed By: #### C 3, C4 #### [facility] , #### ESR, CRP, CBC, CREAT, ADDONUAPLUS, HEPATIC #### [address] Basophils/100 WBC (Bld) 0.6 % Normal . [facility] Comment on above: Performed By: #### C 3, C4 #### [facility] , #### ESR, CRP, CBC, CREAT, ADDONUAPLUS, HEPATIC #### [address] Eosinophils (Bld) [#/Vol] 0.1 10*3/uL Normal 0.0-0.45 [facility] Comment on above: Performed By: #### C 3, C4 #### [facility] , #### ESR, CRP, CBC, CREAT, ADDONUAPLUS, HEPATIC #### [place] [address] [place] Eosinophils/100 WBC (Bld) 1.1 % Normal . [facility] Comment on above: Performed By: #### C 3, C4 #### [facility] , #### ESR, CRP, CBC, CREAT, ADDONUAPLUS, HEPATIC #### [address] Erythrocyte distribution width (RBC) [Ratio] 13.9 % Normal 11.9-15.3 [facility] Comment on above: Performed By: #### C 3, C4 #### [facility] , #### ESR, CRP, CBC, CREAT, ADDONUAPLUS, HEPATIC #### [address] Hematocrit (Bld) [Volume fraction] 47.4 % High 34.0-46.4 [facility] Comment on above: Performed By: #### C 3, C4 #### [facility] , #### ESR, CRP, CBC, CREAT, ADDONUAPLUS, HEPATIC #### [address] Hemoglobin (Bld) [Mass/Vol] 15.6 g/dL High 11.8-15.4 [facility] Comment on above: Performed By: #### C 3, C4 #### [facility] , #### ESR, CRP, CBC, CREAT, ADDONUAPLUS, HEPATIC #### [address] Lymphocytes (Bld) [#/Vol] 1.0 10*3/uL Normal 1.00-4.8 [facility] Comment on above: Performed By: #### C 3, C4 #### [facility] , #### ESR, CRP, CBC, CREAT, ADDONUAPLUS, HEPATIC #### [address] Lymphocytes/100 WBC (Bld) 8.5 % Normal . [facility] Comment on above: Performed By: #### C 3, C4 #### [facility] , #### ESR, CRP, CBC, CREAT, ADDONUAPLUS, HEPATIC #### [address] MCH (RBC) [Entitic mass] 30.4 pg Normal 24.7-34.3 [facility] Comment on above: Performed By: #### C 3, C4 #### [facility] , #### ESR, CRP, CBC, CREAT, ADDONUAPLUS, HEPATIC #### [address] MCV (RBC) [Entitic vol] 92.3 fL Normal 80-100 [facility] Comment on above: Performed By: #### C 3, C4 #### [facility] , #### ESR, CRP, CBC, CREAT, ADDONUAPLUS, HEPATIC #### [address] Mean Corpuscular HGB Conc 32.9 g/dL Normal 32.0-35.0 [facility] Comment on above: Performed By: #### C 3, C4 #### [facility] , #### ESR, CRP, CBC, CREAT, ADDONUAPLUS, HEPATIC #### [address] Monocytes (Bld) [#/Vol] 0.7 10*3/uL Normal 0.0-0.8 [facility] Comment on above: Performed By: #### C 3, C4 #### [facility] , #### ESR, CRP, CBC, CREAT, ADDONUAPLUS, HEPATIC #### [address] Monocytes/100 WBC (Bld) 5.7 % Normal . [facility] Comment on above: Performed By: #### C 3, C4 #### [facility] , #### ESR, CRP, CBC, CREAT, ADDONUAPLUS, HEPATIC #### [address] Neutrophils (Bld) [#/Vol] 9.7 10*3/uL High 1.8-7.7 [facility] Comment on above: Performed By: #### C 3, C4 #### [facility] , #### ESR, CRP, CBC, CREAT, ADDONUAPLUS, HEPATIC #### [address] Neutrophils/100 WBC (Bld) 84.1 % Normal . [facility] Comment on above: Performed By: #### C 3, C4 #### [facility] , #### ESR, CRP, CBC, CREAT, ADDONUAPLUS, HEPATIC #### [address] NRBC% 0.0 /100{WBC} Normal 0-0.5 [facility] Comment on above: Performed By: #### C 3, C4 #### [facility] , #### ESR, CRP, CBC, CREAT, ADDONUAPLUS, HEPATIC #### [address] Platelet mean volume (Bld) [Entitic vol] 9.4 fL Normal 6.3-10.7 [facility] Comment on above: Performed By: #### C 3, C4 #### [facility] , #### ESR, CRP, CBC, CREAT, ADDONUAPLUS, HEPATIC #### [address] Platelets (Bld) [#/Vol] 267 10*3/uL Normal 150-450 [facility] Comment on above: Performed By: #### C 3, C4 #### [facility] , #### ESR, CRP, CBC, CREAT, ADDONUAPLUS, HEPATIC #### [address] RBC (Bld) [#/Vol] 5.13 10*6/uL High 3.60-5.00 [facility] Comment on above: Performed By: #### C 3, C4 #### [facility] , #### ESR, CRP, CBC, CREAT, ADDONUAPLUS, HEPATIC #### [address] WBC (Bld) [#/Vol] 11.6 10*3/uL Normal 3.8-11.6 [facility] Comment on above: Performed By: #### C 3, C4 #### [facility] , #### ESR, CRP, CBC, CREAT, ADDONUAPLUS, HEPATIC #### [facility] [address] [place] [address] [place] Creatinineon 05-28-2022 Creatinine [Mass/Vol] 0.81 mg/dL Normal 0.44-1.03 [facility] Comment on above: Performed By: #### C 3, C4 #### [facility] , #### ESR, CRP, CBC, CREAT, ADDONUAPLUS, HEPATIC #### [address] Estimated GFR ( [place] > 60 Normal [facility] Comment on above: Result Comment: GFR estimated reference range: According to KDOQI guidelines, <60 ml/min/1.73m2 is sufficient to diagnose a patient with chronic kidney disease. Performed By: #### C 3, C4 #### [facility] , #### ESR, CRP, CBC, CREAT, ADDONUAPLUS, HEPATIC #### [facility] [address] [place] [address] Estimated GFR (Non- Am > 60 [facility] Comment on above: Performed By: #### C 3, C4 #### [facility] , #### ESR, CRP, CBC, CREAT, ADDONUAPLUS, HEPATIC #### [facility] [address] [place] [address] [place] Dipstick and Microscopicon 0 05-28-2022 Appearance (U) Clear Normal Clear [facility] Comment on above: Order Comment: Name Collection Type:: Clean-Voided Midstream Performed By: #### C 3, C4 #### [facility] , #### ESR, CRP, CBC, CREAT, ADDONUAPLUS, HEPATIC #### [facility] [address] [place] [address] Bacteria,Urine None Seen Normal None Seen [facility] Comment on above: Order Comment: Name Collection Type:: Clean-Voided Midstream Performed By: #### C 3, C4 #### [facility] , #### ESR, CRP, CBC, CREAT, ADDONUAPLUS, HEPATIC #### [facility] [address] [place] [address] Bilirubin,Urine Negative Normal Negative [facility] Comment on above: Order Comment: Name Collection Type:: Clean-Voided Midstream Performed By: #### C 3, C4 #### [facility] , #### ESR, CRP, CBC, CREAT, ADDONUAPLUS, HEPATIC #### [facility] [address] [place] [address] Color (U) Yellow Normal Yellow [facility] Comment on above: Order Comment: Name Collection Type:: Clean-Voided Midstream Performed By: #### C 3, C4 #### [facility] , #### ESR, CRP, CBC, CREAT, ADDONUAPLUS, HEPATIC #### [facility] [address] [place] [address] Glucose Ql (U) Normal Normal Normal [facility] Comment on above: Order Comment: Name Collection Type:: Clean-Voided Midstream Performed By: #### C 3, C4 #### [facility] , #### ESR, CRP, CBC, CREAT, ADDONUAPLUS, HEPATIC #### [facility] [address] [place] [address] Hyaline Casts,Urine 0-8 Normal 0-8 [facility] Comment on above: Order Comment: Name Collection Type:: Clean-Voided Midstream Result Comment: PERF ORMED BY: [place] [address] PATHOLOGIST EMPLOYEE COMMUNICATIONS INTERN TOBIAS SCOTT M.D. Performed By: #### C 3, C4 #### [facility] , #### ESR, CRP, CBC, CREAT, ADDONUAPLUS, HEPATIC #### [facility] [address] [place] [address] Ketones Ql (U) Negative Normal Negative [facility] Comment on above: Order Comment: Name Collection Type:: Clean-Voided Midstream Performed By: #### C 3, C4 #### [facility] , #### ESR, CRP, CBC, CREAT, ADDONUAPLUS, HEPATIC #### [address] Leukocyte esterase Test strip Ql (U) 3+ High Negative [facility] Comment on above: Order Comment: Name Collection Type:: Clean-Voided Midstream Performed By: #### C 3, C4 #### [facility] , #### ESR, CRP, CBC, CREAT, ADDONUAPLUS, HEPATIC #### [address] Nitrite,Urine Negative Normal Negative [facility] Comment on above: Order Comment: Name Collection Type:: Clean-Voided Midstream Performed By: #### C 3, C4 #### [facility] , #### ESR, CRP, CBC, CREAT, ADDONUAPLUS, HEPATIC #### [address] Occult Blood,Urine Negative Normal Negative [facility] Comment on above: Order Comment: Name Collection Type:: Clean-Voided Midstream Performed By: #### C 3, C4 #### [facility] , #### ESR, CRP, CBC, CREAT, ADDONUAPLUS, HEPATIC #### [address] pH (U) 7.5 [pH] Normal 5.0-9.0 [facility] Comment on above: Order Comment: Name Collection Type:: Clean-Voided Midstream Performed By: #### C 3, C4 #### [facility] , #### ESR, CRP, CBC, CREAT, ADDONUAPLUS, HEPATIC #### [address] Protein,Urine Negative Normal Negative [facility] Comment on above: Order Comment: Name Collection Type:: Clean-Voided Midstream Performed By: #### C 3, C4 #### [facility] , #### ESR, CRP, CBC, CREAT, ADDONUAPLUS, HEPATIC #### [address] RBC LM.HPF (Urine sed) [#/Area] 0 /[HPF] Normal 0-4 [facility] Comment on above: Order Comment: Name Collection Type:: Clean-Voided Midstream Performed By: #### C 3, C4 #### [facility] , #### ESR, CRP, CBC, CREAT, ADDONUAPLUS, HEPATIC #### [address] Specificy [place],Urine 1.014 Normal 1.001-1.030 [facility] Comment on above: Order Comment: Name Collection Type:: Clean-Voided Midstream Performed By: #### C 3, C4 #### [facility] , #### ESR, CRP, CBC, CREAT, ADDONUAPLUS, HEPATIC #### [address] Squamous Epithelial Cell,Urine 1-2 Normal 0-2 [facility] Comment on above: Order Comment: Name Collection Type:: Clean-Voided Midstream Performed By: #### C 3, C4 #### [facility] , #### ESR, CRP, CBC, CREAT, ADDONUAPLUS, HEPATIC #### [address] Urobilinogen,Urine Normal Normal Normal [facility] Comment on above: Order Comment: Name Collection Type:: Clean-Voided Midstream Performed By: #### C 3, C4 #### [facility] , #### ESR, CRP, CBC, CREAT, ADDONUAPLUS, HEPATIC #### [facility] [address] [place] [address] WBC,Urine 3-4 Normal 0-4 [facility] Comment on above: Order Comment: Name Collection Type:: Clean-Voided Midstream Performed By: #### C 3, C4 #### [facility] , #### ESR, CRP, CBC, CREAT, ADDONUAPLUS, HEPATIC #### [address] Erythrocyte Sedimentation Ra sarah 05-28-2022 ESR (Bld) [Velocity] 28 mm/h Normal 0-29 [facility] Comment on above: Result Comment: PERF ORMED BY: [place] [address] PATHOLOGIST EMPLOYEE COMMUNICATIONS INTERN TOBIAS SCOTT M.D. Performed By: #### C 3, C4 #### [facility] , #### ESR, CRP, CBC, CREAT, ADDONUAPLUS, HEPATIC #### [address] Hepatic Panelon 05-28-2022 Albumin [Mass/Vol] 3.8 g/dL Normal 3.2-5.5 [facility] Comment on above: Performed By: #### C 3, C4 #### [facility] , #### ESR, CRP, CBC, CREAT, ADDONUAPLUS, HEPATIC #### [facility] [address] [place] [address] Albumin/Globulin [Mass ratio] 1.4 {ratio} Normal [facility] Comment on above: Performed By: #### C 3, C4 #### [facility] , #### ESR, CRP, CBC, CREAT, ADDONUAPLUS, HEPATIC #### [facility] [address] [place] [address] ALP [Catalytic activity/Vol] 106 U/L High 32-92 [facility] Comment on above: Performed By: #### C 3, C4 #### [facility] , #### ESR, CRP, CBC, CREAT, ADDONUAPLUS, HEPATIC #### [facility] [address] [place] [address] [place] ALT [Catalytic activity/Vol] 28 U/L Normal 10-60 [facility] Comment on above: Performed By: #### C 3, C4 #### [facility] , #### ESR, CRP, CBC, CREAT, ADDONUAPLUS, HEPATIC #### [address] AST [Catalytic activity/Vol] 33 U/L Normal 10- [facility] Comment on above: Performed By: #### C 3, C4 #### [facility] , #### ESR, CRP, CBC, CREAT, ADDONUAPLUS, HEPATIC #### [facility] [address] [place] [address] Bilirubin [Mass/Vol] 0.8 mg/dL Normal 0.3-1.2 [facility] Comment on above: Performed By: #### C 3, C4 #### [facility] , #### ESR, CRP, CBC, CREAT, ADDONUAPLUS, HEPATIC #### [place] [address] [place] Bilirubin,Indirect 0.6 mg/dL Normal [facility] Comment on above: Performed By: #### C 3, C4 #### [facility] , #### ESR, CRP, CBC, CREAT, ADDONUAPLUS, HEPATIC #### [facility] [address] [place] [address] [place] Bilirubin.indirect [Mass/Vol] 0.2 mg/dL Normal 0.0-0.4 [facility] Comment on above: Performed By: #### C 3, C4 #### [facility] , #### ESR, CRP, CBC, CREAT, ADDONUAPLUS, HEPATIC #### [facility] [address] Globulin (S) [Mass/Vol] 2.8 g/dL Normal [facility] Comment on above: Performed By: #### C 3, C4 #### [facility] , #### ESR, CRP, CBC, CREAT, ADDONUAPLUS, HEPATIC #### [facility] [address] Protein [Mass/Vol] 6.6 g/dL Normal 6.1-7.9 [facility] Comment on above: Performed By: #### C 3, C4 #### [facility] , #### ESR, CRP, CBC, CREAT, ADDONUAPLUS, HEPATIC #### [facility] [address] [place] [address] CULTURE URINEon 03-28-2022 CULTURE URINE Isolate 1 [...] Trimethoprim/Sulfamet hoxazole >=320 R F Normal [facility] Comment on above: Performed By: #### C ASA, LIVER #### [facility] [address] [address] [address] Meron Obando XR knee BI 2Von 02-19-2022 XR knee BI 2V [facility] [place] [address] [place] [address] XRay Report Signed Patient: Angelika Goncalves MR#: [id number] 810 : 1940 Acct:[id number] Age/Sex: 81 / F ADM Date: 02/19/22 Loc: ICXD Room: Type: [facility] Attending Dr: Jan Solares MD Copies to: [...] Andrew Lane M.D.02/19/2022 3:22 PM Dictation Location: [place] [address] Transcribed By: [facility] 02/19/221521 Dictated By: Andrew Lane DO 02/19/221516 Signed By: 02/19/221521 Normal [facility] Mitochondrial (M2) Antibodyo n 02-12-2022 Mitochondrial (M2) Antibody <20.0 Normal 0.0-20.0 [facility] Comment on above: Result Comment: Nega tive 0.0 - 20.0 Equivocal 20.1 - 24.9 Positive >24.9 Mitochondrial (M2) Antibodies are found in 90-96% of patients with primary biliary cirrhosis. Performed at: [facility] Lab[address] [id number] Coordinate Measuring Machine Technician: Guanaco Cui PhD, Phone: [phone] PERFORMED BY: [place] [address] PATHOLOGIST EMPLOYEE COMMUNICATIONS INTERN TOBIAS SCOTT M.D. Performed By: #### M ITOM2 ####[facility] , CULTURE URINEon 02-10-2022 CULTURE URINE Culture Observations : ERIC TO FOLLOW. Isolate 1 Citrobacter spp. >100,000 cfu/mL of Normal [facility] Comment on above: Performed By: #### C ASA, LIVER #### [facility] [address] [address] [address] Meron Obando UA RANDOM W/MICROSCOPICon 11 -07-2022 BACTERIA MODERATE Abnormal NONE SEEN [facility] Comment on above: Performed By: #### U AMIC #### [facility] [address] [address] [address] Meron Obando Bilirubin Ql (U) Negative Normal NEGATIVE [facility] Comment on above: Performed By: #### U AMIC #### [facility] [address] [place] [address] Dr. Meron Obando CAST NONE SEEN Normal NONE SEEN [facility] Comment on above: Performed By: #### U AMIC #### [facility] [address] [address] [address] Meron Obando Clarity (U) CLEAR Normal CLEAR [facility] Comment on above: Performed By: #### U AMIC #### [facility] [address] [place] [address] Dr. Meron Obando Color (U) YELLOW Normal YELLOW [facility] Comment on above: Performed By: #### U AMIC #### [facility] [address] [address] [address] Meron Obando Crystals LM Nom (Urine sed) NONE SEEN Normal NONE SEEN [facility] Comment on above: Performed By: #### U AMIC #### [facility] [address] [place] [address] Dr. Meron Obando Epithelial cells LM Ql (Urine sed) FEW Abnormal NONE SEEN /RARE [facility] Comment on above: Performed By: #### U AMIC #### [facility] [address] [place] [address] Dr. Meron Obando Glucose Ql (U) Negative Normal NEGATIVE [facility] Comment on above: Performed By: #### U AMIC #### [facility] [address] [address] [address] Meron Obando Hemoglobin Ql (U) TRACE-INTACT Abnormal NEGATIVE [facility] Comment on above: Performed By: #### U AMIC #### [facility] [address] [place] [address] Dr. Meron Obando Ketones Ql (U) Negative Normal NEGATIVE [facility] Comment on above: Performed By: #### U AMIC #### [facility] [address] [address] [address] Meron Obando LEUKOCYTES LARGE Abnormal NEGATIVE [facility] Comment on above: Performed By: #### U AMIC #### [facility] [address] [address] [address] Meron Obando MUCOUS NONE SEEN Normal NONE SEEN [facility] Comment on above: Performed By: #### U AMIC #### [facility] [address] [address] [address] Meron Obando Nitrite Ql (U) Negative Normal NEGATIVE [facility] Comment on above: Performed By: #### U AMIC #### [facility] [address] [address] [address] Meron Obando pH (U) 6.0 [pH] Normal 5-9 [facility] Comment on above: Performed By: #### U AMIC #### [facility] [address] [address] [address] Meron Obando RBC 5-10 Abnormal 0-2 [facility] Comment on above: Performed By: #### U AMIC #### [facility] [address] [address] [address] Meron Obando SPEC GRAVITY <=1.005 Abnormal 1.005-<=1.025 [facility] Comment on above: Performed By: #### U AMIC #### [facility] [address] [address] [address] Meron Oabndo UA PROTEIN Negative Normal NEGATIVE/ TRACE [facility] Comment on above: Performed By: #### U AMIC #### [facility] [address] [address] [address] Meron Obando Urobilinogen Qn (U) 0.2 {Opal'U}/dL Normal 0.2 - 1. 0 [facility] Comment on above: Performed By: #### U AMIC #### [facility] [address] [address] [address] Meron Obando WBC 50-75 Abnormal NONE SEEN [facility] Comment on above: Performed By: #### U AMIC #### [facility] [address] [address] [address] Meron Obando C3 and C4 COMPLEMENTon 01-09 Complement C3, Serum 143 mg/dL Normal 82-167 [facility] Comment on above: Performed By: #### C ASA, LIVER #### [facility] [address] [place] [address] Dr. Meron Obando Complement C4, Serum 44 mg/dL Critically high 12-38 [facility] Comment on above: Performed By: #### C ASA, LIVER #### [facility] [address] [address] [address] Meron Obando COMPLEMENT TOTAL (CH50)on Complement, Total (CH50) >60 Normal >41 [facility] Comment on above: Result Comment: Age [...] values. Performed By: #### S EDR #### [facility] [address] [place] [address] Dr. Meron Obando CRPon 01-08-2022 CRP [Mass/Vol] mg/L Normal <=1.0 [facility] Comment on above: Performed By: #### L ADELA CRP #### [facility] [address] [place] [address] Dr. Meron Obando LIVER PROFILEon 01-08-2022 Albumin [Mass/Vol] 3.6 g/dL Normal 3.4-5.0 [facility] Comment on above: Performed By: #### L ADELA CRP #### [facility] [address] [place] [address] Dr. Meron Obando Albumin/Globulin [Mass ratio] 1.0 {ratio} Normal [facility] Comment on above: Performed By: #### L ADELA CRP #### [facility] [address] [address] [address] Meron Obando ALP [Catalytic activity/Vol] 127 U/L Critically high 46-116 [facility] Comment on above: Performed By: #### L IVER, CRP #### [facility] [address] [place] [address] Dr. Meron Obando ALT [Catalytic activity/Vol] 29 U/L Normal 14-59 [facility] Comment on above: Performed By: #### L IVER, CRP #### [facility] [address] [address] [address] Meron Obando AST [Catalytic activity/Vol] 30 U/L Normal 15-37 [facility] Comment on above: Performed By: #### L IVER, CRP #### [facility] [address] [place] [address] Dr. Meron Obando BILI, CONJUGATED 0.2 mg/dL Normal 0.0-0.2 [facility] Comment on above: Performed By: #### L ADELA, CRP #### [facility] [address] [place] [address] Dr. Meron Obando Bilirubin [Mass/Vol] 0.8 mg/dL Normal 0.2-1.0 [facility] Comment on above: Performed By: #### L ADELA, CRP #### [facility] [address] [place] [address] Dr. Meron Obando Globulin (S) [Mass/Vol] 3.7 g/dL Normal [facility] Comment on above: Performed By: #### L IVSURJIT, CRP #### [facility] [address] [place] [address] Dr. Meron Obando Protein [Mass/Vol] 7.3 g/dL Normal 6.4-8.2 [facility] Comment on above: Performed By: #### L IVER, CRP #### [facility] [address] [place] [address] Dr. Meron Obando SED RATE [facility] 2021 SED RATE 35 mm/hr Critically high <=30 [facility] Comment on above: Performed By: #### C ASA, LIVER #### [facility] [address] [address] [address] Meron Obando UA RANDOM W/MICROSCOPICon BACTERIA MODERATE Abnormal NONE SEEN [facility] Comment on above: Performed By: #### S EDR #### [facility] [address] [address] [address] Meron Obando Bilirubin Ql (U) Negative Normal NEGATIVE [facility] Comment on above: Performed By: #### S EDR #### [facility] [address] [address] [address] Meron Obando CAST NONE SEEN Normal NONE SEEN [facility] Comment on above: Performed By: #### S EDR #### [facility] [address] [address] [address] Meron Obando Clarity (U) CLOUDY Abnormal CLEAR [facility] Comment on above: Performed By: #### S EDR #### [facility] [address] [address] [address] Meron Obando Color (U) LT. YELLOW Normal YELLOW [facility] Comment on above: Performed By: #### S EDR #### [facility] [address] [address] [address] Meron Obando Crystals LM Nom (Urine sed) NONE SEEN Normal NONE SEEN [facility] Comment on above: Performed By: #### S EDR #### [facility] [address] [place] [address] Dr. Meron Obando Epithelial cells LM Ql (Urine sed) FEW Abnormal NONE SEEN /RARE [facility] Comment on above: Performed By: #### S EDR #### [facility] [address] [address] [address] Meron Obando Glucose Ql (U) Negative Normal NEGATIVE [facility] Comment on above: Performed By: #### S EDR #### [facility] [address] [place] [address] Dr. Meron Obando Hemoglobin Ql (U) TRACE-INTACT Abnormal NEGATIVE [facility] Comment on above: Performed By: #### S EDR #### [facility] [address] [place] [address] Dr. Meron Obando Ketones Ql (U) Negative Normal NEGATIVE [facility] Comment on above: Performed By: #### S EDR #### [facility] [address] [place] [address] Dr. Meron Obando LEUKOCYTES LARGE Abnormal NEGATIVE [facility] Comment on above: Performed By: #### S EDR #### [facility] [address] [place] [address] Dr. Meron Obando MUCOUS NONE SEEN Normal NONE SEEN [facility] Comment on above: Performed By: #### S EDR #### [facility] [address] [place] [address] Dr. Meron Obando Nitrite Ql (U) Negative Normal NEGATIVE [facility] Comment on above: Performed By: #### S EDR #### [facility] [address] [place] [address] Dr. Meron Obando pH (U) 6.0 [pH] Normal 5-9 [facility] Comment on above: Performed By: #### S EDR #### [facility] [address] [place] [address] Dr. Meron Obando RBC 2-5 Abnormal 0-2 [facility] Comment on above: Performed By: #### S EDR #### [facility] [address] [place] [address] Dr. Meron Obando SPEC GRAVITY 1.010 Normal 1.005-<=1.025 [facility] Comment on above: Performed By: #### S EDR #### [facility] [address] [place] [address] Dr. Meron Obando UA PROTEIN Negative Normal NEGATIVE/ TRACE [facility] Comment on above: Performed By: #### S EDR #### [facility] [address] [place] [address] Dr. Meron Obando Urobilinogen Qn (U) 0.2 {Opal'U}/dL Normal 0.2 - 1. 0 [facility] Comment on above: Performed By: #### S EDR #### [facility] [address] [place] [address] Dr. Meron Obando WBC (U) [#/Vol] /uL Abnormal NONE SEEN [facility] Comment on above: Performed By: #### S EDR #### [facility] [address] [place] [address] Dr. Meron Obando CULTURE URINEon 12-15-2021 CULTURE [...] Trimethoprim/Sulfamet hoxazole <=20 S F Normal [facility] Comment on above: Performed By: #### C ASA LIVER #### [facility] [address] [place] [address] Dr. Meron Obando CBC AUTO DIFFon 12-10-2021 BASO # 0.1 103/ul Normal 0.0-0.1 [facility] Comment on above: Performed By: #### Ha BRAY LIVER #### [facility] [address] [place] [address] Dr. Meron Obando Basophils/100 WBC (Bld) 0.7 % Normal 0.2-2.0 [facility] Comment on above: Performed By: #### C ASA, LIVER #### [facility] [address] [place] [address] Dr. Meron Obando EO # 0.2 103/ul Normal 0.0-0.7 [facility] Comment on above: Performed By: #### C ASA, LIVER #### [facility] [address] [place] [address] Dr. Meron Obando Eosinophils/100 WBC (Bld) 2.4 % Normal 0.9-7.0 [facility] Comment on above: Performed By: #### C ASA, LIVER #### [facility] [address] [place] [address] Dr. Meron Obando Erythrocyte distribution width (RBC) [Ratio] 15.3 % Critically high 11.0-15.0 [facility] Comment on above: Performed By: #### C ASA, LIVER #### [facility] [address] [place] [address] Dr. Meron Obando Hematocrit (Bld) [Volume fraction] 45.6 % Normal 36.0-48.0 [facility] Comment on above: Performed By: #### C ASA, LIVER #### [facility] [address] [place] [address] Dr. Meron Obando Hemoglobin (Bld) [Mass/Vol] 15.3 g/dL Normal 12.0-16.0 [facility] Comment on above: Performed By: #### Ha BRAY, LIVER #### [facility] [address] [place] [address] Dr. Meron Obando IG # 0.03 10e3/ul Normal 0.00-0.03 [facility] Comment on above: Performed By: #### C ASA, LIVER #### [facility] [address] [place] [address] Dr. Meron Obando IG % 0.3 % Normal 0.0-0.5 [facility] Comment on above: Performed By: #### C ASA, LIVER #### [facility] [address] [place] [address] Dr. Meron Obando LYMPH # 1.6 103/ul Normal 1.2-3.8 [facility] Comment on above: Performed By: #### C ASA, LIVER #### [facility] [address] [place] [address] Dr. Meron Obando Lymphocytes/100 WBC (Bld) 17.0 % Critically low 20.5-60.0 [facility] Comment on above: Performed By: #### C ASA, LIVER #### [facility] [address] [place] [address] Dr. Meron Obando MANUAL DIFF REQ NO Normal [facility] Comment on above: Performed By: #### C ASA, LIVER #### [facility] [address] [place] [address] Dr. Meron Obando MCH (RBC) [Entitic mass] 31.4 pg Normal 26.7-34.0 [facility] Comment on above: Performed By: #### C ASA, LIVER #### [facility] [address] [place] [address] Dr. Meron Obando MCHC (RBC) [Mass/Vol] 33.6 g/dL Normal 29.9-35.2 [facility] Comment on above: Performed By: #### C ASA, LIVER #### [facility] [address] [place] [address] Dr. Meron Obando MCV (RBC) [Entitic vol] 93.6 fL Normal 81.0-99.0 [facility] Comment on above: Performed By: #### C ASA, LIVER #### [facility] [address] [place] [address] Dr. Meron Obando MONO # 1.0 103/ul Critically high 0.3-0.8 [facility] Comment on above: Performed By: #### C ASA, LIVER #### [facility] [address] [place] [address] Dr. Meron Obando Monocytes/100 WBC (Bld) 10.9 % Normal 1.7-12.0 [facility] Comment on above: Performed By: #### C ASA, LIVER #### [facility] [address] [place] [address] Dr. Meron Obando NEUT # 6.3 103/ul Normal 1.4-6.5 [facility] Comment on above: Performed By: #### C ASA, LIVER #### [facility] [address] [place] [address] Dr. Meron Obando Neutrophils/100 WBC (Bld) 68.7 % Normal 43.0-75.0 [facility] Comment on above: Performed By: #### C ASA, LIVER #### [facility] [address] [address] [address] Meron Obando Platelet mean volume (Bld) [Entitic vol] 10.9 fL Normal 9.5-13.5 [facility] Comment on above: Performed By: #### C ASA, LIVER #### [facility] [address] [address] [address] Meron Obando PLT 300 103/ul Normal 150-450 [facility] Comment on above: Performed By: #### C ASA, LIVER #### [facility] [address] [address] [address] Meron Obando RBC 4.87 106/ul Normal 4.20-5.40 [facility] Comment on above: Performed By: #### C ASA, LIVER #### [facility] [address] [place] [address] Dr. Meron Obando WBC 9.2 103/ul Normal 4.0-11.0 [facility] Comment on above: Performed By: #### C ASA, LIVER #### [facility] [address] [place] [address] Dr. Meron Obando CREATININEon 12-10-2021 Creatinine [Mass/Vol] 0.96 mg/dL Normal 0.55-1.02 [facility] Comment on above: Performed By: #### Ha BRAY, LIVER #### [facility] [address] [place] [address] Dr. Meron Obando EGFR-AF SAUDI ARABIAN >60 Normal >=60 [facility] Comment on above: Performed By: #### Ha BRAY, LIVER #### [facility] [address] [place] [address] Dr. Meron Obando EGFR-NON AF SAUDI ARABIAN 56 mL/min/1.73m2 Critically low >=60 [facility] Comment on above: Performed By: #### C ASA, LIVER #### [facility] [address] [place] [address] Dr. Meron Obando LIVER PROFILEon 12-10-2021 Albumin [Mass/Vol] 3.4 g/dL Normal 3.4-5.0 [facility] Comment on above: Performed By: #### C ASA, LIVER #### [facility] [address] [address] [address] Meron Obando Albumin/Globulin [Mass ratio] 0.9 {ratio} Normal [facility] Comment on above: Performed By: #### C ASA, LIVER #### [facility] [address] [address] [address] Meron Obando ALP [Catalytic activity/Vol] 149 U/L Critically high 46-116 [facility] Comment on above: Performed By: #### C ASA, LIVER #### [facility] [address] [address] [address] Meron Obando ALT [Catalytic activity/Vol] 36 U/L Normal 14-59 [facility] Comment on above: Performed By: #### C ASA, LIVER #### [facility] [address] [address] [address] Meron Obando AST [Catalytic activity/Vol] 40 U/L Critically high 15-37 [facility] Comment on above: Performed By: #### C ASA, LIVER #### [facility] [address] [address] [address] Meron Obando BILI, CONJUGATED 0.2 mg/dL Normal 0.0-0.2 [facility] Comment on above: Performed By: #### C ASA, LIVER #### [facility] [address] [address] [address] Meron Obando Bilirubin [Mass/Vol] 0.5 mg/dL Normal 0.2-1.0 [facility] Comment on above: Performed By: #### C ASA, LIVER #### [facility] [address] [address] [address] Meron Obando Globulin (S) [Mass/Vol] 3.7 g/dL Normal [facility] Comment on above: Performed By: #### C ASA, LIVER #### [facility] [address] [address] [address] Meron Obando Protein [Mass/Vol] 7.1 g/dL Normal 6.4-8.2 [facility] Comment on above: Performed By: #### C ASA, LIVER #### [facility] [address] [address] [address] Meron Obando SED RATE WESTERGRENon 2021 SED RATE 20 mm/hr Normal <=30 [facility] Comment on above: Performed By: #### S EDR #### [facility] [address] [address] [address] Meron Obando XR chest 2V*on 12-03-2021 XR chest 2V* [facility] [place] [address] [place] [address] XRay Report Signed Patient: Angelika Goncalves MR#: [id number] : 1940 Acct:[id number] Age/Sex: 81 / F ADM Date: 12/03/21 Loc: [facility] Room: Type: [facility] Attending Dr: Jan Solares MD Copies to: [...] Maria Ansari M.D.12/03/2021 2:07 PM Dictation Location: [facility]- Transcribed By: [facility] 12/03/21 140 Dictated By: Rosa Maria Ansari MD 12/03/21 1405 Signed By: 12/03/21 1407 Normal [facility] CBC AUTO DIFFon 11-25-2021 BASO # 0.1 103/ul Normal 0.0-0.1 [facility] Comment on above: Performed By: #### C ASA, LIVER #### [facility] [address] [place] [address] Dr. Meron Obando Basophils/100 WBC (Bld) 1.1 % Normal 0.2-2.0 [facility] Comment on above: Performed By: #### C ASA, LIVER #### [facility] [address] [place] [address] Dr. Meron Obando EO # 0.2 103/ul Normal 0.0-0.7 [facility] Comment on above: Performed By: #### C ASA, LIVER #### [facility] [address] [place] [address] Dr. Meron Obando Eosinophils/100 WBC (Bld) 2.4 % Normal 0.9-7.0 [facility] Comment on above: Performed By: #### C ASA, LIVER #### [facility] [address] [place] [address] Dr. Meron Obando Erythrocyte distribution width (RBC) [Ratio] 15.1 % Critically high 11.0-15.0 [facility] Comment on above: Performed By: #### C ASA, LIVER #### [facility] [address] [place] [address] Dr. Meron Obando Hematocrit (Bld) [Volume fraction] 48.0 % Normal 36.0-48.0 [facility] Comment on above: Performed By: #### C ASA, LIVER #### [facility] [address] [place] [address] Dr. Meron Obando Hemoglobin (Bld) [Mass/Vol] 15.5 g/dL Normal 12.0-16.0 [facility] Comment on above: Performed By: #### C ASA, LIVER #### [facility] [address] [place] [address] Dr. Meron Obando IG # 0.03 10e3/ul Normal 0.00-0.03 [facility] Comment on above: Performed By: #### C ASA, LIVER #### [facility] [address] [place] [address] Dr. Meron Obando IG % 0.3 % Normal 0.0-0.5 [facility] Comment on above: Performed By: #### C ASA, LIVER #### [facility] [address] [place] [address] Dr. Meron Obando LYMPH # 1.7 103/ul Normal 1.2-3.8 [facility] Comment on above: Performed By: #### C ASA, LIVER #### [facility] [address] [place] [address] Dr. Meron Obando Lymphocytes/100 WBC (Bld) 18.3 % Critically low 20.5-60.0 [facility] Comment on above: Performed By: #### C ASA, LIVER #### [facility] [address] [place] [address] Dr. Meron Obando MANUAL DIFF REQ NO Normal [facility] Comment on above: Performed By: #### C ASA, LIVER #### [facility] [address] [place] [address] Dr. Meron Obando MCH (RBC) [Entitic mass] 30.7 pg Normal 26.7-34.0 [facility] Comment on above: Performed By: #### C ASA, LIVER #### [facility] [address] [place] [address] Dr. Meron Obando MCHC (RBC) [Mass/Vol] 32.3 g/dL Normal 29.9-35.2 [facility] Comment on above: Performed By: #### C ASA, LIVER #### [facility] [address] [place] [address] Dr. Meorn Obando MCV (RBC) [Entitic vol] 95.0 fL Normal 81.0-99.0 [facility] Comment on above: Performed By: #### C ASA, LIVER #### [facility] [address] [place] [address] Dr. Meron Obando MONO # 1.0 103/ul Critically high 0.3-0.8 [facility] Comment on above: Performed By: #### C ASA, LIVER #### [facility] [address] [place] [address] Dr. Meron Obando Monocytes/100 WBC (Bld) 10.4 % Normal 1.7-12.0 [facility] Comment on above: Performed By: #### C ASA, LIVER #### [facility] [address] [place] [address] Dr. Meron Obando NEUT # 6.2 103/ul Normal 1.4-6.5 [facility] Comment on above: Performed By: #### C ASA, LIVER #### [facility] [address] [place] [address] Dr. Meron Obando Neutrophils/100 WBC (Bld) 67.5 % Normal 43.0-75.0 [facility] Comment on above: Performed By: #### C ASA, LIVER #### [facility] [address] [place] [address] Dr. Meron Obando Platelet mean volume (Bld) [Entitic vol] 10.8 fL Normal 9.5-13.5 [facility] Comment on above: Performed By: #### Ha BRAY, LIVER #### [facility] [address] [place] [address] Dr. Meron Obando PLT 295 103/ul Normal 150-450 [facility] Comment on above: Performed By: #### C ASA, LIVER #### [facility] [address] [place] [address] Dr. Meron Obando RBC 5.05 106/ul Normal 4.20-5.40 [facility] [facility] Comment on above: Performed By: #### Ha BRAY, LIVER #### [facility] [address] [place] [address] Dr. Meron Obando WBC 9.2 103/ul Normal 4.0-11.0 [facility] Comment on above: Performed By: #### C ASA, LIVER #### [facility] [address] [place] [address] Dr. Meron Obando CREATININEon 11-25-2021 Creatinine [Mass/Vol] 1.03 mg/dL Critically high 0.55-1.02 [facility] Comment on above: Performed By: #### S EDR #### [facility] [address] [address] [address] Meron Obando EGFR-AF SAUDI ARABIAN 39 mL/min/1.73m2 Critically low >=60 [facility] Comment on above: Performed By: #### S EDR #### [facility] [address] [address] [address] Meron Obando EGFR-NON AF SAUDI ARABIAN 32 mL/min/1.73m2 Critically low >=60 [facility] Comment on above: Performed By: #### S EDR #### [facility] [address] [place] [address] Dr. Meron Obando LIVER PROFILEon 11-25-2021 Albumin [Mass/Vol] 3.5 g/dL Normal 3.4-5.0 [facility] Comment on above: Performed By: #### S EDR #### [facility] [address] [place] [address] Dr. Meron Obando Albumin/Globulin [Mass ratio] 1.0 {ratio} Normal [facility] Comment on above: Performed By: #### S EDR #### [facility] [address] [address] [address] Meron Obando ALP [Catalytic activity/Vol] 135 U/L Critically high 46-116 [facility] Comment on above: Performed By: #### S EDR #### [facility] [address] [place] [address] Dr. Meron Obando ALT [Catalytic activity/Vol] 41 U/L Normal 14-59 [facility] Comment on above: Performed By: #### S EDR #### [facility] [address] [address] [address] Meron Obando AST [Catalytic activity/Vol] 39 U/L Critically high 15-37 [facility] Comment on above: Performed By: #### S EDR #### [facility] [address] [place] [address] Dr. Meron Obando BILI, CONJUGATED 0.1 mg/dL Normal 0.0-0.2 [facility] Comment on above: Performed By: #### S EDR #### [facility] [address] [place] [address] Dr. Meron Obando Bilirubin [Mass/Vol] 0.5 mg/dL Normal 0.2-1.0 [facility] Comment on above: Performed By: #### S EDR #### [facility] [address] [place] [address] Dr. Meron Obando Globulin (S) [Mass/Vol] 3.5 g/dL Normal [facility] Comment on above: Performed By: #### S EDR #### [facility] [address] [place] [address] Dr. Meron Obando Protein [Mass/Vol] 7.0 g/dL Normal 6.4-8.2 [facility] Comment on above: Performed By: #### S EDR #### [facility] [address] [place] [address] Dr. Meron Obando SED RATE WESTERGRENon 2021 SED RATE 11 mm/hr Normal <=30 [facility] Comment on above: Performed By: #### S EDR #### [facility] [address] [place] [address] Dr. Meron Obando CBC AUTO DIFFon 11-13-2021 BASO # 0.1 103/ul Normal 0.0-0.1 [facility] Comment on above: Performed By: #### C BC #### [facility] [address] [place] [address] Dr. Meron Obando Basophils/100 WBC (Bld) 0.8 % Normal 0.2-2.0 [facility] Comment on above: Performed By: #### C BC #### [facility] [address] [place] [address] Dr. Meron Obando EO # 0.2 103/ul Normal 0.0-0.7 [facility] Comment on above: Performed By: #### C BC #### [facility] [address] [place] [address] Dr. Meron Obando Eosinophils/100 WBC (Bld) 1.9 % Normal 0.9-7.0 [facility] Comment on above: Performed By: #### C BC #### [facility] [address] [place] [address] Dr. Meron Obando Erythrocyte distribution width (RBC) [Ratio] 14.4 % Normal 11.0-15.0 [facility] Comment on above: Performed By: #### C BC #### [facility] [address] [place] [address] Dr. Meron Obando Hematocrit (Bld) [Volume fraction] 48.9 % Critically high 36.0-48.0 [facility] Comment on above: Performed By: #### C BC #### [facility] [address] [place] [address] Dr. Meron Obando Hemoglobin (Bld) [Mass/Vol] 16.0 g/dL Normal 12.0-16.0 [facility] Comment on above: Performed By: #### C BC #### [facility] [address] [place] [address] Dr. Meron Obando IG # 0.03 10e3/ul Normal 0.00-0.03 [facility] Comment on above: Performed By: #### C BC #### [facility] [address] [place] [address] Dr. Meron Obando IG % 0.3 % Normal 0.0-0.5 [facility] Comment on above: Performed By: #### C BC #### [facility] [address] [place] [address] Dr. Meron Obando LYMPH # 2.5 103/ul Normal 1.2-3.8 [facility] Comment on above: Performed By: #### C BC #### [facility] [address] [place] [address] Dr. Meron Obando Lymphocytes/100 WBC (Bld) 24.8 % Normal 20.5-60.0 [facility] Comment on above: Performed By: #### C BC #### [facility] [address] [place] [address] Dr. Meron Obando MANUAL DIFF REQ NO Normal [facility] Comment on above: Performed By: #### C BC #### [facility] [address] [address] [address] Meron Obando MCH (RBC) [Entitic mass] 30.9 pg Normal 26.7-34.0 [facility] Comment on above: Performed By: #### C BC #### [facility] [address] [place] [address] Dr. Meron Obando MCHC (RBC) [Mass/Vol] 32.7 g/dL Normal 29.9-35.2 [facility] Comment on above: Performed By: #### C BC #### [facility] [address] [place] [address] Dr. Meron Obando MCV (RBC) [Entitic vol] 94.4 fL Normal 81.0-99.0 [facility] Comment on above: Performed By: #### C BC #### [facility] [address] [place] [address] Dr. Meron Obando MONO # 0.8 103/ul Normal 0.3-0.8 [facility] Comment on above: Performed By: #### C BC #### [facility] [address] [place] [address] Dr. Meron Obando Monocytes/100 WBC (Bld) 7.7 % Normal 1.7-12.0 [facility] Comment on above: Performed By: #### C BC #### [facility] [address] [place] [address] Dr. Meron Obando NEUT # 6.4 103/ul Normal 1.4-6.5 [facility] Comment on above: Performed By: #### C BC #### [facility] [address] [place] [address] Dr. Meron Obando Neutrophils/100 WBC (Bld) 64.5 % Normal 43.0-75.0 [facility] Comment on above: Performed By: #### C BC #### [facility] [address] [place] [address] Dr. Meron Obando Platelet mean volume (Bld) [Entitic vol] 11.1 fL Normal 9.5-13.5 [facility] Comment on above: Performed By: #### C BC #### [facility] [address] [place] [address] Dr. Meron Obando PLT 306 103/ul Normal 150-450 [facility] Comment on above: Performed By: #### C BC #### [facility] [address] [place] [address] Dr. Meron Obando RBC 5.18 106/ul Normal 4.20-5.40 [facility] Comment on above: Performed By: #### C BC #### [facility] [address] [address] [address] Meron Obando WBC 9.9 103/ul Normal 4.0-11.0 [facility] Comment on above: Performed By: #### C BC #### [facility] [address] [place] [address] Dr. Meron Obando CREATININEon 11-13-2021 Creatinine [Mass/Vol] 1.01 mg/dL Normal 0.55-1.02 [facility] Comment on above: Performed By: #### C ASA, LIVER #### [facility] [address] [place] [address] Dr. Meron Obando EGFR-AF SAUDI ARABIAN >60 Normal >=60 [facility] Comment on above: Performed By: #### C ASA, LIVER #### [facility] [address] [place] [address] Dr. Meron Obando EGFR-NON AF SAUDI ARABIAN 53 mL/min/1.73m2 Critically low >=60 [facility] Comment on above: Performed By: #### C ASA, LIVER #### [facility] [address] [place] [address] Dr. Meron Obando LIVER PROFILEon 11-13-2021 Albumin [Mass/Vol] 3.4 g/dL Normal 3.4-5.0 [facility] Comment on above: Performed By: #### S EDR #### [facility] [address] [place] [address] Dr. Meron Obando Albumin/Globulin [Mass ratio] 0.9 {ratio} Normal [facility] Comment on above: Performed By: #### S EDR #### [facility] [address] [address] [address] Meron Obando ALP [Catalytic activity/Vol] 126 U/L Critically high 46-116 [facility] Comment on above: Performed By: #### S EDR #### [facility] [address] [place] [address] Dr. Meron Obando ALT [Catalytic activity/Vol] 58 U/L Normal 14-59 [facility] Comment on above: Performed By: #### S EDR #### [facility] [address] [address] [address] Meron Obando AST [Catalytic activity/Vol] 55 U/L Critically high 15-37 [facility] Comment on above: Performed By: #### S EDR #### [facility] [address] [place] [address] Dr. Meron Obando BILI, CONJUGATED 0.1 mg/dL Normal 0.0-0.2 [facility] Comment on above: Performed By: #### S EDR #### [facility] [address] [place] [address] Dr. Meron Obando Bilirubin [Mass/Vol] 0.5 mg/dL Normal 0.2-1.0 [facility] Comment on above: Performed By: #### S EDR #### [facility] [address] [place] [address] Dr. Meron Obando Globulin (S) [Mass/Vol] 3.6 g/dL Normal [facility] Comment on above: Performed By: #### S EDR #### [facility] [address] [place] [address] Dr. Meron Obando Protein [Mass/Vol] 7.0 g/dL Normal 6.4-8.2 [facility] Comment on above: Performed By: #### S EDR #### [facility] [address] [place] [address] Dr. Meron Obando SED RATE [facility] 2021 SED RATE 13 mm/hr Normal <=30 [facility] Comment on above: Performed By: #### S EDR #### [facility] [address] [place], [place] [id number] Dr. Meron Obando CBC AUTO DIFFon 10-28-2021 BASO # 0.1 103/ul Normal 0.0-0.1 [facility] Comment on above: Performed By: #### C BC #### [facility] [address] [place] [address] Dr. Meron Obando Basophils/100 WBC (Bld) 1.1 % Normal 0.2-2.0 [facility] Comment on above: Performed By: #### C BC #### [facility] [address] [place] [address] Dr. Meron Obando EO # 0.2 103/ul Normal 0.0-0.7 [facility] Comment on above: Performed By: #### C BC #### [facility] [address] [place] [address] Dr. Meron Obando Eosinophils/100 WBC (Bld) 2.3 % Normal 0.9-7.0 [facility] Comment on above: Performed By: #### C BC #### [facility] [address] [place] [address] Dr. Meron Obando Erythrocyte distribution width (RBC) [Ratio] 13.8 % Normal 11.0-15.0 [facility] Comment on above: Performed By: #### C BC #### [facility] [address] [place] [address] Dr. Meron Obando Hematocrit (Bld) [Volume fraction] 46.7 % Normal 36.0-48.0 [facility] Comment on above: Performed By: #### C BC #### [facility] [address] [place] [address] Dr. Meron Obando Hemoglobin (Bld) [Mass/Vol] 15.1 g/dL Normal 12.0-16.0 [facility] Comment on above: Performed By: #### C BC #### [facility] [address] [place] [address] Dr. Meron Obando IG # 0.04 10e3/ul Critically high 0.00-0.03 [facility] Comment on above: Performed By: #### C BC #### [facility] [address] [place] [address] Dr. Meron Obando IG % 0.4 % Normal 0.0-0.5 [facility] Comment on above: Performed By: #### C BC #### [facility] [address] [place] [address] Dr. Meron Obando LYMPH # 1.8 103/ul Normal 1.2-3.8 [facility] Comment on above: Performed By: #### C BC #### [facility] [address] [place] [address] Dr. Meron Obando Lymphocytes/100 WBC (Bld) 18.7 % Critically low 20.5-60.0 [facility] Comment on above: Performed By: #### C BC #### [facility] [address] [place] [address] Dr. Meron Obando MANUAL DIFF REQ NO Normal [facility] Comment on above: Performed By: #### C BC #### [facility] [address] [place] [address] Dr. Meron Obando MCH (RBC) [Entitic mass] 30.5 pg Normal 26.7-34.0 [facility] Comment on above: Performed By: #### C BC #### [facility] [address] [place] [address] Dr. Meron Obando MCHC (RBC) [Mass/Vol] 32.3 g/dL Normal 29.9-35.2 [facility] Comment on above: Performed By: #### C BC #### [facility] [address] [place] [address] Dr. Meron Obando MCV (RBC) [Entitic vol] 94.3 fL Normal 81.0-99.0 [facility] Comment on above: Performed By: #### C BC #### [facility] [address] [place] [address] Dr. Meron Obando MONO # 1.1 103/ul Critically high 0.3-0.8 [facility] Comment on above: Performed By: #### C BC #### [facility] [address] [place] [address] Dr. Meron Obando Monocytes/100 WBC (Bld) 11.0 % Normal 1.7-12.0 [facility] Comment on above: Performed By: #### C BC #### [facility] [address] [place] [address] Dr. Meron Obando NEUT # 6.4 103/ul Normal 1.4-6.5 [facility] Comment on above: Performed By: #### C BC #### [facility] [address] [place] [address] Dr. Meron Obando Neutrophils/100 WBC (Bld) 66.5 % Normal 43.0-75.0 [facility] Comment on above: Performed By: #### C BC #### [facility] [address] [place] [address] Dr. Meron Obando Platelet mean volume (Bld) [Entitic vol] 11.1 fL Normal 9.5-13.5 [facility] Comment on above: Performed By: #### C BC #### [facility] [address] [place] [address] Dr. Meron Obando PLT 249 103/ul Normal 150-450 [facility] Comment on above: Performed By: #### C BC #### [facility] [address] [place] [address] Dr. Meron Obando RBC 4.95 106/ul Normal 4.20-5.40 [facility] Comment on above: Performed By: #### C BC #### [facility] [address] [place] [address] Dr. Meron Obando WBC 9.7 103/ul Normal 4.0-11.0 [facility] Comment on above: Performed By: #### C BC #### [facility] [address] [place] [address] Dr. Meron Obando CREATININEon 10-28-2021 Creatinine [Mass/Vol] 0.98 mg/dL Normal 0.55-1.02 [facility] Comment on above: Performed By: #### C ASA, LIVER #### [facility] [address] [place] [address] Dr. Meron Obando EGFR-AF SAUDI ARABIAN >60 Normal >=60 [facility] Comment on above: Performed By: #### C ASA, LIVER #### [facility] [address] [place] [address] Dr. Meron Obando EGFR-NON AF SAUDI ARABIAN 54 mL/min/1.73m2 Critically low >=60 [facility] Comment on above: Performed By: #### C ASA, LIVER #### [facility] [address] [place] [address] Dr. Meron Obando LIVER PROFILEon 10-28-2021 Albumin [Mass/Vol] 3.3 g/dL Critically low 3.4-5.0 [facility] Comment on above: Performed By: #### C ASA, LIVER #### [facility] [address] [place] [address] Dr. Meron Obando Albumin/Globulin [Mass ratio] 0.9 {ratio} Normal [facility] Comment on above: Performed By: #### C ASA, LIVER #### [facility] [address] [place] [address] Dr. Meron Obando ALP [Catalytic activity/Vol] 127 U/L Critically high 46-116 [facility] Comment on above: Performed By: #### C ASA, LIVER #### [facility] [address] [place] [address] Dr. Meron Obando ALT [Catalytic activity/Vol] 38 U/L Normal 14-59 [facility] Comment on above: Performed By: #### C ASA, LIVER #### [facility] [address] [place] [address] Dr. Meron Obando AST [Catalytic activity/Vol] 33 U/L Normal 15-37 [facility] Comment on above: Performed By: #### C ASA, LIVER #### [facility] [address] [place] [address] Dr. Meron Obando BILI, CONJUGATED 0.1 mg/dL Normal 0.0-0.2 [facility] Comment on above: Performed By: #### C ASA, LIVER #### [facility] [address] [place] [address] Dr. Meron Obando Bilirubin [Mass/Vol] 0.3 mg/dL Normal 0.2-1.0 [facility] Comment on above: Performed By: #### C ASA, LIVER #### [facility] [address] [place] [address] Dr. Meron Obando Globulin (S) [Mass/Vol] 3.7 g/dL Normal [facility] Comment on above: Performed By: #### C ASA, LIVER #### [facility] [address] [address] [address] Meron Obando Protein [Mass/Vol] 7.0 g/dL Normal 6.4-8.2 [facility] Comment on above: Performed By: #### C ASA, LIVER #### [facility] [address] [place] [address] Dr. Meron Obando SED RATE [facility] 2021 SED RATE 8 mm/hr Normal <=30 [facility] Comment on above: Performed By: #### S EDR #### [facility] [address] [place] [address] Dr. Meron Obando Hepatitis B Core Antibodyon 10-09-2021 Hepatitis B Core Antibody Negative Normal Negative [facility] Comment on above: Result Comment: Perf ormed at: CB - [facility] [address] [id number] Coordinate Measuring Machine Technician: Guanaco Cui PhD, Phone: [phone] PERFORMED BY: [facility] [address] [place] [address] PATHOLOGIST [employer] INTER[employer] TOBIAS SCOTT M.D. Performed By: #### H BCAB #### [facility] , No Panel InformationOrdered By: Jan Solares on 10-09-2021 Hepatitis B Core Total Antibody Negative Negative [facility] Comment on above: Performed at: CB - [facility] [address] [id number] Coordinate Measuring Machine Technician: Guanaco Cui PhD, Phone: [phone] Q - CULTURE,URINE,ROUTINEon 05-07-2021 CULTURE, URINE, ROUTINE SEE NOTE Normal [employer] Comment on above: Order Comment: [facility] performed at: [facility], [facility], [address], [address] [facility], [place], [address], Fruit And Vegetable Classer: Harsh Hopkins MD [facility] Collection Date/Time: [facility] Results Received Date/Time: [facility] Reported Date/Time: Result Comment: CULT URE, URINE, ROUTINE Micro Number: [id number] Test Status: Final Specimen Source: Urine Specimen Quality: Adequate Result: No Growth Performed By: #### [id number] #### [facility] [address] [place] [address] Vital Signs Date Time Vital Sign Value Performing Clinician Rachel wilkerson 04-10-2023 14:14-0500 Body height 152.4 cm Jan Smith MD Work Phone: Assignment Editor 04-10-2023 14:14-0500 Body mass index (BMI) [Ratio] 21.87 kg/m2 aJn Smith MD Work Phone: Assignment Editor 04-10-2023 14:14-0500 Body weight 50.8 kg Jan Smith MD Work Phone: Assignment Editor 04-10-2023 14:14-0500 Diastolic blood pressure 80 mm[Hg] Jan Smith MD Work Phone: Assignment Editor 04-10-2023 14:14-0500 Heart rate 84 /min Jan Smith MD Work Phone: Assignment Editor 04-10-2023 14:14-0500 SaO2% (BldA) [Mass fraction] 91 % Jan Smith MD Work Phone: Assignment Editor 04-10-2023 14:14-0500 Systolic blood pressure 130 mm[Hg] Jan Smiht MD Work Phone: Assignment Editor Encounters Encounter Date Encounter Type Care Provider Facility Start: 10-02-2023 End: 10-02-2023 ambulatory JAN SOLARES [facility] Start: 09-22-2023 End: 09-22-2023 ambulatory BOONE EWING Not Available Start: 07-29-2023 End: 07-29-2023 ambulatory BOONE EWING Not Available Start: 07-23-2023 End: 07-23-2023 ambulatory SHAIKH MILADHERMILO Not Available Start: 07-09-2023 End: 07-09-2023 ambulatory [facility] Start: 06-03-2023 End: 06-03-2023 ambulatory SHAIKH ASHLEY Not Available Start: 05-13-2023 End: 05-13-2023 ambulatory [facility] Start: 04-10-2023 End: 04-10-2023 Office outpatient visit 25 minutes Jan Smith MD Work Phone: [facility] Comment on above: 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); Dyslipidemia; Primary hypertension Start: 04-10-2023 End: 04-10-2023 ambulatory OOLITIC Jonathon [facility] Start: 04-09-2023 Telephone encounter Toyin Bass [facility] Start: 03-23-2023 End: 03-23-2023 ambulatory BOONE EWING Not Available Start: 05-28-2022 End: 05-28-2022 ambulatory Jan Solares Facility:[facility] Start: 03-25-2022 End: 03-25-[address] BOONE EWING Facility: Start: 02-19-2022 End: 02-19-2022 ambulatory Jan Solares Facility:[facility] Start: 02-12-2022 End: 02-12-2022 ambulatory Jan Chenadadylan Facility:[facility] Start: 02-12-2022 End: 02-12-2022 ambulatory DO Carin Brady Work Phone: [facility] Work Phone: Start: 02-12-2022 End: 02-12-2022 Patient encounter procedure DO Carin Brady Work Phone: [facility] [address] Start: 02-10-2022 End: 02-10-[address] BOONE EWING Facility:[facility] Start: 01-08-2022 End: 01-09-[address] JAN SOLARES Facility:[facility] Start: 12-12-2021 End: 12-12-[address] BOONE EWING Facility:[facility] Start: 12-10-2021 End: 01-04-[address] JAN SOLARES Facility:[facility] Start: 12-03-2021 End: 12-03-2021 ambulatory Jan Solares Facility:[facility] Start: 12-03-2021 End: 12-03-2021 Patient encounter procedure DO Carin Brady Work Phone: [facility] [address] Start: 11-13-2021 End: 12-04-[address] JAN SOLARES Facility:[facility] Start: 10-28-2021 End: 11-01-[address] JAN SOLARES Facility:[facility] Start: 10-09-2021 End: 10-09-2021 ambulatory Jan Solares Facility:[facility] Start: 10-09-2021 End: 10-09-2021 Patient encounter procedure DO Carin Brady Work Phone: [facility] [address] Procedures Date Procedure Procedure Detail Performing Clinician Start: 04-10-2023 Follow-up visit Follow-up JAN SMITH Start: 04-10-2023 Ecg routine ecg w/le ast 12 lds w/i&r Jan Smith MD Work Phone: Start: 12-03-2021 Plain chest X-ray DO Re jose eduardorochelle Brady Work Phone: Start: 01-07-2021 Adult depression screening assessment Toyin Bass [facility] Start: 08-30-2020 H/O: surgery S/P nasal septoplasty J ibeth Bass [facility] Start: 11-26-2018 History of coronary artery bypass grafting History of coronary artery bypass graft x 2 Toyin Bass [employer] [facility] History of coronary artery bypass grafting History of coronary artery bypass graft x 2 Jan Smith MD Work Phone: Plan of Treatment Date Care Activity Detail Author Start: 04-10-2024 Adult BMI Screening Adult BMI Screening [facility] Start: 04-10-2024 Tobacco Screening Tobacco Screening [facility] Start: 08-08-2023 Adult BMI Screening Adult BMI Screening [facility] Start: 04-10-2023 End: 04-10-2023 Patient encounter procedure 04/10/2023 2:30 PM EST Office Visit [facility] [address] [place] [address] Jan Smith MD [address] [place] [address] [facility] Start: 12-23-2022 Tobacco Screening Tobacco Screening [facility] Start: 01-07-2022 Depression Screening Depression Screening [facility] Start: 02-17-2020 Administration of varicella zoster vaccine Zoster (Shingles) Vaccine (3 of 3) [facility] Start: 2005 Fall Risk Screening Fall Risk Screening [facility] Start: 1959 DTaP,Tdap and Td Vaccines (1 - Tdap) DTaP,Tdap and Td Vaccines (1 - Tdap) [facility] Start: 1940 Medicare Annual Wellness Visit Medicare Annual Wellness Visit [facility] Hepatitis B core ant ibody [facility] Work Phone: Immunizations Immunization Date Immunization Notes Care Provider Fa cility 05-24-2020 COVID-19, mRNA, LNP- S, PF, 100mcg/0.5mL Dose Toyin Bass [facility] 04-27-2020 COVID-19, mRNA, LNP- S, PF, 100mcg/0.5mL Dose Toyin Bass [facility] 12-23-2019 zoster vaccine, unspecified formulation Toyin Bass [facility] Payers Date Payer Category Payer Self-pay [id number] 2011 Unknown [id number] 2005 Medicare MEDICARE MEDICAR E PART A & B [id number] 2005-Present [phone] [facility] [id number] [place] [address] [id number] 1959 Medicare [id number] 1959 Unknown [id number] 1940 Unknown [id number] 2.16.840.1.169233.3.579.2.593 1940 Unknown [id number] 2.16.840.1.188373.3.579.2.593 1940 Unknown [id number] 2.16.840.1.070849.3.579.2.593 1940 Unknown [id number] 2.16.840.1.238446.3.579.2.593 1940 Unknown [id number] 2.16.840.1.864562.3.579.2.593 1940 Unknown [id number] 2.16.840.1.016802.3.579.2.593 1940 Unknown [id number] 2.16.840.1.760995.3.579.2.593 1940 Unknown [id number] 2.16.840.1.462575.3.579.2.125 9 1940 Unknown [id number] 2.16.840.1.673474.3.579.2.125 9 1940 Unknown [id number] 2.16.840.1.974656.3.579.2.125 9 1940 Unknown [id number] 2.16.840.1.382272.3.579.2.125 9 1940 Unknown [id number] 2.16.840.1.793387.3.579.2.125 9 1940 Unknown [id number] 2.16.840.1.074256.3.579.2.128 6 1940 Unknown [id number] 2.16.840.1.191474.3.579.2.128 6 1940 Unknown [id number] 2.16.840.1.965337.3.579.2.128 6 1940 Unknown [id number] 2.16.840.1.568693.3.579.2.128 6 Unknown [id number] 2.16.840.1.414357.3.579.2.531 Unknown [id number] 2.16.840.1.498695.3.579.2.531 Unknown [id number] 2.16.840.1.405931.3.579.2.531 Unknown [id number] 2.16.840.1.309273.3.579.2.531 Unknown [id number] 2.16.840.1.968628.3.579.2.531 Social History Date Type Detail Facility Tobacco smoking stat us NMIS Unknown if ever smoked [facility] Work Phone: Start: 1940 Sex Assigned At Female F [facility] Start: 04-16-2017 End: 04-10-2023 Tobacco smoking status NHIS Never smoked tobacco [facility] Work Phone: Start: 04-16-2017 End: 04-10-2023 Tobacco use and exposure Smokeless tobacco non-user [facility] Start: 12-23-2021 End: 04-10-2023 Alcohol intake Current drinker of alcohol (finding) [facility] Start: 11-25-2018 End: 04-24-2020 History of Social function [facility] Start: 11-25-2018 End: 04-24-2020 Social connection and isolation panel [facility] Frequency of Communi cation with Friends and Family More than three times a week [facility] Start: 11-25-2018 Education 12 [facility] Start: 10-21-2019 Alcohol Comment rarely [facility] History of Present illness Narrative 04-10-2023 Jan Smith MD - 04/10/2023 2:30 PM EST Note Date & Type Note Facility 04-10-2023 History of Present illness Narrative Angelika Goncalves Date of visit: 04/10/2023 Date of : 1940 Age: 83 y.o. Patient Active Problem List Diagnosis Cervical spondylosis without myelopathy Iron deficiency anemia Coronary artery disease involving [place] coronary artery of [place] heart History of coronary artery bypass graft [...] FOR ANY FURTHER REFILLS. 90 tablet 3 nximqedp-aweo-CX-calcium &mins (THERAGRAN-M) 9 mg iron-400 mcg tablet [...] Sat, Sun (2.5mg Thu, Thu, Thu) sod ybigu-rtmbeu-ronadp bottle (NEILMED SINUS RINSE COMPLETE) packet with [...] palpitations. 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 CABGX2/LIMAX1/SVGX1/EVH LEFT UPPER LEG/MIAN N/A 11/03/2018 Performed by Kel Sherman MD at [facility] Cardiac catheterization N/A 11/01/2018 Performed by Kalin Hamm MD at [facility] Coronary angiogram and left ventricular gram/pressure N/A 11/01/2018 Performed by Kalin Hamm MD at [facility] HYSTERECTOMY 1986 complete INJECTION MEDIAL BRANCH NERVE BLOCK: right C34 45 56mbb Right 09/07/2017 Performed by Kel Serna MD at [facility] INJECTION MEDIAL BRANCH NERVE BLOCK: right C34 45 56mbb Right 07/31/2017 Performed by Kel Serna MD at [facility] RADIO FREQUENCY ABLATION: right C34 45 56 Right 06/21/2018 Performed by Kel Serna MD at [facility] RADIOFREQUENCY ABLATION SPINAL: right C34 45 56rfa Right 09/25/2017 Performed by Kel Serna MD at [facility] RADIOFREQUENCY TURBINATE NASAL Bilateral 08/23/2020 Performed by [...] 0 min Stress: Stress Concern Present (11/25/2018) [place] [employer] - Occupational Stress Questionnaire Feeling of Stress : To some extent Social Connections: Moderately Integrated (11/25/2018) Social Connection and Isolation Panel [NHANES] Frequency of Communication with Friends and Family: More than three times a week Frequency of Social Gatherings with Friends and Family: Twice a week Attends Scientologist Services: More than 4 times per year [...] by mouth 2 (two) times a day. rkwyptqj-coku-LM-calcium &mins (THERAGRAN-M) 9 mg iron-400 mcg tablet [...] Referring Physician: Boone Ewing MD [address] [place] [address] documented in this encounter [facility] Note 04-09-2023 Telephone Encounter - Toyin [...] Note Facility Evaluation note No assessment information [facility] Work Phone: Evaluation note Note Date [...] section and content) DATE CREATED AUTHOR 05/10/2021 [facility] Specialist DATE CREATED AUTHOR AUTHOR'S ORGANIZ ATION 04/02/2022 [facility] DATE CREATED AUTHOR AUTHOR'S ORGANIZ ATION 06/07/2022 [facility] DATE CREATED AUTHOR AUTHOR'S ORGANIZ ATION 09/24/2023 [facility] dical Specialists EPIC DATE CREATED AUTHOR AUTHOR'S ORGANIZ ATION 10/04/2023 [facility] Care Teams (unrecognized sec tion and content) Team Status: Inactive Member Role Status Dates Carin Brady , Primary Care Provider Active Jan Solares MD Attending Provider Active Team Status: Active Member Role Status Dates Carin Brady , Primary Care Provider Active Television [employer] Relationship Specialty Start Date End Date Boone Ewing MD [address] [place] [address] PCP - General Family Medicine 12/23/21 Television Serv[employer] Relationship Specialty Start Date End Date Boone Ewing MD [address] [place] [address] PCP - General Family Medicine 12/23/21 Goals [...] BE BASED ON THE PRIMARY CLINICAL RECORDS. [employer] provides no warranty or guarantee of the accuracy or completeness of information in this document.
== END 2023-10-27 13:51 | disposition home or self-care (01) ==
LOC: MAMMO 13:50
PROVIDERS: PCP Family Medicine; Visit Provider Family Medicine
DX: R92.8 Other abnormal and inconclusive findings on diagnostic imaging of breast (principal)
CPT/HCPCS: 76642; 77065

== ENCOUNTER 2023-11-03 12:24 | Day surgery (SDC) | payer MEDICARE, OTHER, SELFPAY ==
--- NOTE | 2023-11-03 | MM_ITS ---
Patient Name: TRAVIS GONCALVES MR#: [id number] : 1940 Exam Date: 11/03/2023 Ordering Doctor: DR Boone Kidd . RADIOLOGY REPORT PROCEDURE: MM POST BIOPSY RT COMPARISON: MM DIAGNOSTIC MAMMO UNILAT RT, 10/27/2023. INDICATIONS: right breast mass BREAST COMPOSITION: FINDINGS: Post-Procedure Mammogram for Marker Placement BIOPSY MARKER: A tophat shaped metallic marker has been placed in the targeted location within the upper outer quadrant of the mid right breast. BREAST FINDINGS: Expected postprocedural changes Dictated by: Juan Jones MD on 11/04/2023 at 15:03 Approved by: Juan Jones MD on 11/04/2023 at 15:04
--- NOTE | 2023-11-03 | US_ITS ---
[address] [address] Patient Name: TRAVIS GONCALVES MRN: [id number] date: 1940 Sex: F Assigned Patient Location: US Current Patient Location: US Accession/Order Number: [id number] Exam Date: 11/03/2023 12:45 Report Date: 11/03/2023 14:17 At the request of: WIL EWING Procedure: US breast vac bx w/ clip RT EXAMINATION: US breast vac bx w/ clip RT HISTORY: right breast mass COMPARISON: No relevant comparison available. TECHNIQUE: After obtaining informed consent, an ultrasound-guided biopsy was performed in the usual sterile manner. FINDINGS: IMAGING: Ultrasound BIOPSY NEEDLE: 13-gauge mammotome vacuum assisted core needle SPECIMEN TYPE, #, LOCATION: 6 samples, 10:00 right breast mass MEDICATION: 3 cc 1% buffered lidocaine superficial. 6 cc 1% buffered lidocaine with epinephrine deep COMPLICATIONS: None. LABORATORY: OTHER: Negative. US/US breast vac bx w/ clip RT IMPRESSION: Uneventful ultrasound guided vacuum assisted core biopsy. The patient was instructed to obtain follow up care and biopsy results from the referring physician. Electronically authenticated by: SEKOU HUMPHRIES Date: 11/03/2023 14:17
[2023-11-03 12:30] VITALS: BP 174/93; PULSE 66; O2SAT 97
--- OUTSIDE RECORDS SUMMARY | 2023-11-03 12:39 | XMS_ITS | CCD ---
Author Organization [facility] CliniSyal Care Team Providers Care Pediatric Oncology Nurse Name Role Phone DO Carin Brady Primary Care Provider MD Jan Solares Attending Provider [phone] CAMPOS, DR MONTOYA Admitting Unavailable HALADAY, DR [...] MONTOYA Consulting Unavailable Haladay, Jan Admitting Unavailable Haladadylan, Jan Attending Unavailable [...] Care Provider SHAIKH RAMIREZ Attending Unavailable SHAIKH RAMIERZ Attending Unavailable BOONE EWING Attending Unavailable BOONE [...] FURTHER REFILLS. 90 tablet 3 01/08/2022 Active iwhkyati-ihtj-ZD-calci um &mins (THERAGRAN-M) 9 mg iron-400 mcg [...] 0 09/20/2020 04/10/2023 Discontinued (Therapy completed) sod rqvyp-ddqjbl-ovwi ez bottle (NEILMED SINUS RINSE COMPLETE) packet with rinse device nasal solution (2 sources) Start: 08-22-2020 End: 04-10-2023 take 1 dose nasal route twice daily sod ztlct-errzvb-remjd z bottle (NEILMED SINUS RINSE COMPLETE) packet with rinse device nasal solution Administer 1 packet into each nostril 2 (two) times a day. 60 packet 0 08/22/2020 04/10/2023 Discontinued (Therapy completed) Start: 08-22-2020 take 1 dose nasal ro jordan twice daily sod pvnzf-lhbacv-fvycrl bottle (NEILMED SINUS RINSE COMPLETE) packet with rinse device nasal solution Administer 1 packet into each nostril 2 (two) times a day. 60 packet 0 08/22/2020 Active Problems Active Problems Problem Classification Problem Date Documented Da te Episodic/Chronic Coronary atherosclerosis and other heart disease (4 sources) Coronary arteriosclerosis; Translations: [Atherosclerotic heart disease of [place] coronary artery without angina pectoris] Onset: 10-29-2018 Resolved: 10-21-2019 10-21-2019 Chronic Disorders of lipid metabolism (4 sources) Dyslipidemia; Translations: [Hyperlipidemia, unspecified] Onset: 10-21-2019 10-21-2019 Chronic Essential hypertension (2 sources) Essential hypertension; Translations: [Essential (primary) hypertension] Onset: 04-10-2023 04-10-2023 Chronic Genitourinary symptoms and ill-defined conditions (4 sources) Dysuria; Translations: [DYSURIA] Onset: 03-25-2022 Episodic Other aftercare (2 sources) 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; Translations: [OTH [facility] CURRENT DRUG THERAPY] Onset: 01-20-2022 Episodic Rheumatoid [...] 24 ABSOLUTE BASOPHIL 0.1 X10E9/L Normal 0.0-0.2 [facility] Comment on above: Performed By: #### C MALI, 54488-1, SPIRAL RUNNER, LIVR #### [facility] ([id number]) [address], [address] [place] [address] ABSOLUTE NEUTROPHIL 5.0 X10E9/L Normal 1.5-6.6 [facility] Comment on above: Performed By: #### C MALI, 81439-3, SPIRAL RUNNER, LIVR #### [facility] ([id number]) [address] [place] [address] Basophils/100 WBC (Bld) 1.4 % Normal [facility] Comment on above: Performed By: #### C MALI, 49761-3, SPIRAL RUNNER, LIVR #### [facility] ([id number]) [address] [address] [place] [address] Eosinophils (Bld) [#/Vol] 0.3 10*3/uL Normal 0.0-0.4 [facility] Comment on above: Performed By: #### C MALI, 40482-7, SPIRAL RUNNER, LIVR #### [facility] ([id number]) [address], [facility] [address] [place] [address] Eosinophils/100 WBC (Bld) 3.4 % Normal [facility] Comment on above: Performed By: #### C MALI, 51104-3, SPIRAL RUNNER, LIVR #### [facility] ([id number]) [address] [place] [address] Erythrocyte distribution width (RBC) [Ratio] 13.4 % Normal 11.5-15.0 [facility] Comment on above: Performed By: #### C MALI, 79878-5, SPIRAL RUNNER, LIVR #### [facility] ([id number]) [address], [facility] [address] [place] [address] Hematocrit (Bld) [Volume fraction] 42.3 % Normal 35-47 [facility] Comment on above: Performed By: #### Ha SAMSON, 00591-4, SPIRAL RUNNER, LIVR #### [facility] ([id number]) [address] [address] [place] [address] Hemoglobin (Bld) [Mass/Vol] 14.6 g/dL Normal 11.7-15.5 [facility] Comment on above: Performed By: #### C MALI, 22915-2, SPIRAL RUNNER, LIVR #### [facility] ([id number]) [address] [address] [place] [address] Lymphocytes (Bld) [#/Vol] 1.0 10*3/uL Normal 1.0-3.5 [facility] Comment on above: Performed By: #### C MALI, 99050-1, SPIRAL RUNNER, LIVR #### [facility] ([id number]) [address], [address] [place] [address] Lymphocytes/100 WBC (Bld) 13.3 % Normal [facility] Comment on above: Performed By: #### Ha SAMSON 66982-9, SPIRAL RUNNER, LIVR #### [facility] ([id number]) [address], [address] [place] [address] MCH (RBC) [Entitic mass] 32.4 pg Normal 27-34 [facility] Comment on above: Performed By: #### aH SAMSON 82468-3, SPIRAL RUNNER, LIVR #### [facility] ([id number]) [address], [address] [place] [address] MCHC (RBC) [Mass/Vol] 34.6 g/dL Normal 32-36 [facility] Comment on above: Performed By: #### Ha SAMSON 51645-1, SPIRAL RUNNER, LIVR #### [facility] ([id number]) [address], [address] [place] [address] MCV (RBC) [Entitic vol] 94 fL Normal 80-100 [facility] Comment on above: Performed By: #### Ha SAMSON 13134-9, SPIRAL RUNNER, LIVR #### [facility] ([id number]) [address], [address] [place] [address] Monocytes (Bld) [#/Vol] 1.0 10*3/uL High 0-0.9 [facility] Comment on above: Performed By: #### Ha SAMSON, 59364-9, SPIRAL RUNNER, LIVR #### [facility] ([id number]) [address], [address] [place] [address] Monocytes/100 WBC (Bld) 14.0 % Normal [facility] Comment on above: Performed By: #### C MALI, 20947-8, SPIRAL RUNNER, LIVR #### [facility] ([id number]) [address], [address] [place] [address] Neutrophils/100 WBC (Bld) 67.9 % Normal [facility] Comment on above: Performed By: #### Ha SAMSON, 23178-1, SPIRAL RUNNER, LIVR #### [facility] ([id number]) [address], [address] [place] [address] Platelet mean volume (Bld) [Entitic vol] 9.7 fL Normal 7-12 [facility] Comment on above: Performed By: #### Ha SAMSON, 19409-5, SPIRAL RUNNER, LIVR #### [facility] ([id number]) [address], [address] [place] [address] Platelets (Bld) [#/Vol] 290 10*3/uL Normal 150-450 [facility] Comment on above: Performed By: #### Ha SAMSON, 09684-2, SPIRAL RUNNER, LIVR #### [facility] ([id number]) [address], [address] [place] [address] RBC COUNT 4.53 X10E12/L Normal 3.80-5.20 [facility] Comment on above: Performed By: #### Ha SAMSON, 61244-0, SPIRAL RUNNER, LIVR #### [facility] ([id number]) [address], [address] [place] [address] WBC (Bld) [#/Vol] 7.4 10*3/uL Normal 4.0-11.0 [facility] Comment on above: Performed By: #### Ha SAMSON, 40772-8, SPIRAL RUNNER, LIVR #### [facility] ([id number]) [address], [address] [place] [address] CREATININEon 10-02-2023 Creatinine [Mass/Vol] 0.79 mg/dL Normal 0.40-1.00 [facility] Comment on above: Result Comment: METH OD TRACEABLE TO IDMS STANDARD Performed By: #### C BCA, SPIRAL RUNNER, LIVR, 58274-7 #### [facility] ([id number]) [address] [address] GFR/1.73 sq M.predicted among non-blacks MDRD (S/P/Bld) [Vol rate/Area] 74 mL/min/{1.73_m2} Normal >59 [facility] Comment on above: Result Comment: Reported eGFR is based on the CKD-EPI 2020 equation that does not use a race coefficient. Performed By: #### C BCA, SPIRAL RUNNER, LIVR, 32488-7 #### [facility] ([id number]) [address] [address] ESR Photometric method (Bld) [Velocity]on 10-02-2023 ESR, ERYTHROCYTE SEDIMENTATION RATE 7 mm/h Normal 0-30 [facility] Comment on above: Performed By: #### C MALI, 48274-1, SPIRAL RUNNER, LIVR #### [facility] ([id number]) [address] [address] LIVER PANELon 10-02-2023 Albumin [Mass/Vol] 3.8 g/dL Normal 3.2-5.3 [facility] Comment on above: Performed By: #### C BCA, SPIRAL RUNNER, LIVR, 63332-4 #### [facility] ([id number]) [address] [address] ALP [Catalytic activity/Vol] 86 U/L Normal 39-130 [facility] Comment on above: Performed By: #### C BCA, SPIRAL RUNNER, LIVR, 33184-5 #### [facility] ([id number]) [address], [address] [address] ALT [Catalytic activity/Vol] 12 U/L Normal 0-31 [facility] Comment on above: Performed By: #### C BCA, SPIRAL RUNNER, LIVR, 68489-9 #### [facility] ([id number]) [address], [address] [place] [address] AST [Catalytic activity/Vol] 23 U/L Normal 0-41 [facility] Comment on above: Performed By: #### C BCA, SPIRAL RUNNER, LIVR, 48220-2 #### [facility] ([id number]) [address], [address] [place] [address] Bilirubin [Mass/Vol] 0.6 mg/dL Normal 0.3-1.2 [facility] Comment on above: Performed By: #### C BCA, SPIRAL RUNNER, LIVR, 41492-2 #### [facility] ([id number]) [address], [address] [place] [address] Bilirubin.direct [Mass/Vol] 0.1 mg/dL Normal 0.0-0.4 [facility] Comment on above: Performed By: #### C BCA, SPIRAL RUNNER, LIVR, 40940-6 #### [facility] ([id number]) [address], [address] [place] [address] Protein [Mass/Vol] 6.6 g/dL Normal 6.0-8.0 [facility] Comment on above: Performed By: #### C BCA, SPIRAL RUNNER, LIVR, 08784-0 #### [facility] ([id number]) [address], [address] [place] [address] CBC AND AUTO DIFFon 07-09-19 24 ABSOLUTE BASOPHIL 0.1 X10E9/L Normal 0.0-0.2 [facility] Comment on above: Performed By: #### C BCA, 48646-8, SPIRAL RUNNER, LIVR #### [facility] ([id number]) [address], [address] [place] [address] ABSOLUTE NEUTROPHIL 4.2 X10E9/L Normal 1.5-6.6 [facility] Comment on above: Performed By: #### Ha SAMSON, 56065-8, SPIRAL RUNNER, LIVR #### [facility] ([id number]) [address], [address] [place] [address] Basophils/100 WBC (Bld) 2.2 % Normal [facility] Comment on above: Performed By: #### C MALI, 51324-8, SPIRAL RUNNER, LIVR #### [facility] ([id number]) [address], [address] [place] [address] Eosinophils (Bld) [#/Vol] 0.2 10*3/uL Normal 0.0-0.4 [facility] Comment on above: Performed By: #### Ha SAMSON, 50169-6, SPIRAL RUNNER, LIVR #### [facility] ([id number]) [address], [address] [place] [address] Eosinophils/100 WBC (Bld) 3.7 % Normal [facility] Comment on above: Performed By: #### Ha SAMSON, 81223-6, SPIRAL RUNNER, LIVR #### [facility] ([id number]) [address], [facility] [address] [place] [address] Erythrocyte distribution width (RBC) [Ratio] 14.4 % Normal 11.5-15.0 [facility] Comment on above: Performed By: #### Ha SAMSON, 66946-9, SPIRAL RUNNER, LIVR #### [facility] ([id number]) [address], [address] [place] [address] Hematocrit (Bld) [Volume fraction] 41.2 % Normal 35-47 [facility] Comment on above: Performed By: #### Ha SAMSON, 97491-6, SPIRAL RUNNER, LIVR #### [facility] ([id number]) [address], [address] [place] [address] Hemoglobin (Bld) [Mass/Vol] 14.1 g/dL Normal 11.7-15.5 [facility] Comment on above: Performed By: #### Ha SAMSON, 18764-2, SPIRAL RUNNER, LIVR #### [facility] ([id number]) [address] [address] Lymphocytes (Bld) [#/Vol] 1.2 10*3/uL Normal 1.0-3.5 [facility] Comment on above: Performed By: #### Ha SAMSON, 30887-0, SPIRAL RUNNER, LIVR #### [facility] ([id number]) [address] [address] Lymphocytes/100 WBC (Bld) 17.9 % Normal [facility] Comment on above: Performed By: #### Ha SAMSON, 54035-3, SPIRAL RUNNER, LIVR #### [facility] ([id number]) [address] [address] MCH (RBC) [Entitic mass] 32.0 pg Normal 27-34 [facility] Comment on above: Performed By: #### Ha SAMSON, 70141-7, SPIRAL RUNNER, LIVR #### [facility] ([id number]) [address] [address] MCHC (RBC) [Mass/Vol] 34.3 g/dL Normal 32-36 [facility] Comment on above: Performed By: #### Ha SAMSON, 99096-9, SPIRAL RUNNER, LIVR #### [facility] ([id number]) [address] [address] [place] [address] MCV (RBC) [Entitic vol] 93 fL Normal 80-100 [facility] Comment on above: Performed By: #### Ha SAMSON, 44627-8, SPIRAL RUNNER, LIVR #### [facility] ([id number]) [address] [place] [address] Monocytes (Bld) [#/Vol] 0.9 10*3/uL Normal 0-0.9 [facility] Comment on above: Performed By: #### Ha SAMSON, 06497-7, SPIRAL RUNNER, LIVR #### [facility] ([id number]) [address], [facility] [address] [place] [address] Monocytes/100 WBC (Bld) 13.2 % Normal [facility] Comment on above: Performed By: #### C MALI, 90048-8, SPIRAL RUNNER, LIVR #### [facility] ([id number]) [address], [facility] [address] [place] [address] Neutrophils/100 WBC (Bld) 63.0 % Normal [facility] Comment on above: Performed By: #### Ha SAMSON, 77328-1, SPIRAL RUNNER, LIVR #### [facility] ([id number]) [address], [facility] [address] [place] [address] Platelet mean volume (Bld) [Entitic vol] 9.7 fL Normal 7-12 [facility] Comment on above: Performed By: #### Ha SAMSON, 84416-8, SPIRAL RUNNER, LIVR #### [facility] ([id number]) [address] [address] [place] [address] Platelets (Bld) [#/Vol] 275 10*3/uL Normal 150-450 [facility] Comment on above: Performed By: #### Ha SAMSON, 88574-1, SPIRAL RUNNER, LIVR #### [facility] ([id number]) [address], [facility] [address] [place] [address] RBC COUNT 4.42 X10E12/L Normal 3.80-5.20 [facility] Comment on above: Performed By: #### Ha SAMSON, 76736-8, SPIRAL RUNNER, LIVR #### [facility] ([id number]) [address] [address] WBC (Bld) [#/Vol] 6.6 10*3/uL Normal 4.0-11.0 [facility] Comment on above: Performed By: #### C MALI, 04144-3, SPIRAL RUNNER, LIVR #### [facility] ([id number]) [address] [address] CREATININEon 07-09-2023 Creatinine [Mass/Vol] 0.70 mg/dL Normal 0.40-1.00 [facility] Comment on above: Result Comment: METH OD TRACEABLE TO IDMS STANDARD Performed By: #### C MALI 71636-5, SPIRAL RUNNER, LIVR #### [facility] ([id number]) [address] [address] GFR/1.73 sq M.predicted among non-blacks MDRD (S/P/Bld) [Vol rate/Area] 86 mL/min/{1.73_m2} Normal >59 [facility] Comment on above: Result Comment: Reported eGFR is based on the CKD-EPI 2020 equation that does not use a race coefficient. Performed By: #### C MALI, 66390-5, SPIRAL RUNNER, LIVR #### [facility] ([id number]) [address] [address] ESR Photometric method (Bld) [Velocity]on 07-09-2023 ESR, ERYTHROCYTE SEDIMENTATION RATE 5 mm/h Normal 0-30 [facility] Comment on above: Performed By: #### C MALI, 54804-7, SPIRAL RUNNER, LIVR #### [facility] ([id number]) [address] [address] LIVER PANELon 07-09-2023 Albumin [Mass/Vol] 3.9 g/dL Normal 3.2-5.3 [facility] Comment on above: Performed By: #### C MALI, 30094-9, SPIRAL RUNNER, LIVR #### [facility] ([id number]) [address], [address] [place] [address] ALP [Catalytic activity/Vol] 104 U/L Normal 39-130 [facility] Comment on above: Performed By: #### C BCA, 92296-6, SPIRAL RUNNER, LIVR #### [facility] ([id number]) [address], [address] [place] [address] ALT [Catalytic activity/Vol] 21 U/L Normal 0-31 [facility] Comment on above: Performed By: #### C BCA, 95945-2, SPIRAL RUNNER, LIVR #### [facility] ([id number]) [address], [address] [place] [address] AST [Catalytic activity/Vol] 32 U/L Normal 0-41 [facility] Comment on above: Performed By: #### C BCA, 14535-2, SPIRAL RUNNER, LIVR #### [facility] ([id number]) [address], [address] [place] [address] Bilirubin [Mass/Vol] 0.5 mg/dL Normal 0.3-1.2 [facility] Comment on above: Performed By: #### C BCA, 39920-9, SPIRAL RUNNER, LIVR #### [facility] ([id number]) [address], [address] [place] [address] Bilirubin.direct [Mass/Vol] 0.1 mg/dL Normal 0.0-0.4 [facility] Comment on above: Performed By: #### C BCA, 58106-3, SPIRAL RUNNER, LIVR #### [facility] ([id number]) [address], [address] [place] [address] Protein [Mass/Vol] 6.8 g/dL Normal 6.0-8.0 [facility] Comment on above: Performed By: #### C BCA, 52376-2, SPIRAL RUNNER, LIVR #### [facility] ([id number]) [address], [address] [place] [address] CBC AND AUTO DIFFon 05-13-19 24 ABSOLUTE BASOPHIL 0.1 X10E9/L Normal 0.0-0.2 [facility] Comment on above: Performed By: #### C BCA, SPIRAL RUNNER, LIVR, 41910-5 #### [facility] ([id number]) [address], [address] [place] [address] ABSOLUTE NEUTROPHIL 4.4 X10E9/L Normal 1.5-6.6 [facility] Comment on above: Performed By: #### C BCA, SPIRAL RUNNER, LIVR, 66745-3 #### [facility] ([id number]) [address] [address] [place] [address] Basophils/100 WBC (Bld) 1.9 % Normal [facility] Comment on above: Performed By: #### C BCA, SPIRAL RUNNER, LIVR, 38417-0 #### [facility] ([id number]) [address] [address] [place] [address] Eosinophils (Bld) [#/Vol] 0.3 10*3/uL Normal 0.0-0.4 [facility] Comment on above: Performed By: #### C BCA, SPIRAL RUNNER, LIVR, 83615-1 #### [facility] ([id number]) [address] [address] [place] [address] Eosinophils/100 WBC (Bld) 3.5 % Normal [facility] Comment on above: Performed By: #### C BCA, SPIRAL RUNNER, LIVR, 85093-7 #### [facility] ([id number]) [address] [address] [place] [address] Erythrocyte distribution width (RBC) [Ratio] 13.6 % Normal 11.5-15.0 [facility] Comment on above: Performed By: #### C BCA, SPIRAL RUNNER, LIVR, 64792-6 #### [facility] ([id number]) [address] [address] [place] [address] Hematocrit (Bld) [Volume fraction] 42.5 % Normal 35-47 [facility] Comment on above: Performed By: #### C BCA, SPIRAL RUNNER, LIVR, 93381-1 #### [facility] ([id number]) [address], [facility] [address] [place] [address] Hemoglobin (Bld) [Mass/Vol] 14.2 g/dL Normal 11.7-15.5 [facility] Comment on above: Performed By: #### C BCA, SPIRAL RUNNER, LIVR, 76165-0 #### [facility] ([id number]) [address] [address] [place] [address] Lymphocytes (Bld) [#/Vol] 1.4 10*3/uL Normal 1.0-3.5 [facility] Comment on above: Performed By: #### C BCA, SPIRAL RUNNER, LIVR, 25271-9 #### [facility] ([id number]) [address] [address] [place] [address] Lymphocytes/100 WBC (Bld) 19.9 % Normal [facility] Comment on above: Performed By: #### C BCA, SPIRAL RUNNER, LIVR, 31768-2 #### [facility] ([id number]) [address] [address] [place] [address] MCH (RBC) [Entitic mass] 30.8 pg Normal 27-34 [facility] Comment on above: Performed By: #### C BCA, SPIRAL RUNNER, LIVR, 91977-6 #### [facility] ([id number]) [address] [address] [place] [address] MCHC (RBC) [Mass/Vol] 33.4 g/dL Normal 32-36 [facility] Comment on above: Performed By: #### C BCA, SPIRAL RUNNER, LIVR, 26351-5 #### [facility] ([id number]) [address], [address] [place] [address] MCV (RBC) [Entitic vol] 92 fL Normal 80-100 [facility] Comment on above: Performed By: #### C BCA, SPIRAL RUNNER, LIVR, 80635-9 #### [facility] ([id number]) [address], [address] [place] [address] Monocytes (Bld) [#/Vol] 0.9 10*3/uL Normal 0-0.9 [facility] Comment on above: Performed By: #### C BCA, SPIRAL RUNNER, LIVR, 57582-1 #### [facility] ([id number]) [address], [facility] [address] [place] [address] Monocytes/100 WBC (Bld) 12.9 % Normal [facility] Comment on above: Performed By: #### C BCA, SPIRAL RUNNER, LIVR, 78556-4 #### [facility] ([id number]) [address], [facility] [address] [place] [address] Neutrophils/100 WBC (Bld) 61.8 % Normal [facility] Comment on above: Performed By: #### C BCA, SPIRAL RUNNER, LIVR, 18292-5 #### [facility] ([id number]) [address], [address] [place] [address] Platelet mean volume (Bld) [Entitic vol] 10.3 fL Normal 7-12 [facility] Comment on above: Performed By: #### C BCA, SPIRAL RUNNER, LIVR, 98742-4 #### [facility] ([id number]) [address], [address] [place] [address] Platelets (Bld) [#/Vol] 288 10*3/uL Normal 150-450 [facility] Comment on above: Performed By: #### C BCA, SPIRAL RUNNER, LIVR, 81957-3 #### [facility] ([id number]) [address] [address] [place] [address] RBC COUNT 4.61 X10E12/L Normal 3.80-5.20 [facility] Comment on above: Performed By: #### C BCA, SPIRAL RUNNER, LIVR, 29178-5 #### [facility] ([id number]) [address] [address] WBC (Bld) [#/Vol] 7.2 10*3/uL Normal 4.0-11.0 [facility] Comment on above: Performed By: #### C BCA, SPIRAL RUNNER, LIVR, 44166-6 #### [facility] ([id number]) [address] [address] CREATININEon 05-13-2023 Creatinine [Mass/Vol] 0.66 mg/dL Normal 0.40-1.00 [facility] Comment on above: Result Comment: METH OD TRACEABLE TO IDMS STANDARD Performed By: #### C BCA, SPIRAL RUNNER, LIVR, 32256-2 #### [facility] ([id number]) [address] [address] GFR/1.73 sq M.predicted among non-blacks MDRD (S/P/Bld) [Vol rate/Area] 87 mL/min/{1.73_m2} Normal >59 [facility] Comment on above: Result Comment: Reported eGFR is based on the CKD-EPI 2020 equation that does not use a race coefficient. Performed By: #### C BCA, SPIRAL RUNNER, LIVR, 28182-6 #### [facility] ([id number]) [address] [address] ESR Photometric method (Bld) [Velocity]on 05-13-2023 ESR, ERYTHROCYTE SEDIMENTATION RATE 10 mm/h Normal 0-30 [facility] Comment on above: Performed By: #### C BCA, SPIRAL RUNNER, LIVR, 32043-2 #### [facility] ([id number]) [address], [address] [place] [address] LIVER PANELon 05-13-2023 Albumin [Mass/Vol] 3.8 g/dL Normal 3.2-5.3 [facility] Comment on above: Performed By: #### C BCA, SPIRAL RUNNER, LIVR, 14741-4 #### [facility] ([id number]) [address], [address] [place] [address] ALP [Catalytic activity/Vol] 114 U/L Normal 39-130 [facility] Comment on above: Performed By: #### C BCA, SPIRAL RUNNER, LIVR, 77262-7 #### [facility] ([id number]) [address], [address] [place] [address] ALT [Catalytic activity/Vol] 17 U/L Normal 0-31 [facility] Comment on above: Performed By: #### C BCA, SPIRAL RUNNER, LIVR, 89968-7 #### [facility] ([id number]) [address], [address] [place] [address] AST [Catalytic activity/Vol] 27 U/L Normal 0-41 [facility] Comment on above: Performed By: #### C BCA, SPIRAL RUNNER, LIVR, 74800-3 #### [facility] ([id number]) [address], [address] [place] [address] Bilirubin [Mass/Vol] 0.6 mg/dL Normal 0.3-1.2 [facility] Comment on above: Performed By: #### C BCA, SPIRAL RUNNER, LIVR, 99496-7 #### [facility] ([id number]) [address], [address] [place] [address] Bilirubin.direct [Mass/Vol] 0.1 mg/dL Normal 0.0-0.4 [facility] Comment on above: Performed By: #### C BCA, SPIRAL RUNNER, LIVR, 26260-2 #### [facility] ([id number]) [address], [address] [place] [address] Protein [Mass/Vol] 6.5 g/dL Normal 6.0-8.0 [facility] Comment on above: Performed By: #### C BCA, SPIRAL RUNNER, LIVR, 75627-6 #### [facility] ([id number]) [address] [facility] [facility] [place] [address] POCT EKGon 04-10-2023 [facility] C-Reactive Proteinon 023 C-Reactive Protein 0.6 mg/dL Normal 0.0-1.0 [facility] Comment on above: Result Comment: PERF ORMED BY: [place] [address] PATHOLOGIST FLARE STITCHER TOBIAS SCOTT M.D. Performed By: #### C 3, C4 #### [facility] , #### ESR, CRP, CBC, CREAT, ADDONUAPLUS, HEPATIC #### [facility] [address] [place] [address] Complement C3on 05-28-2022 Complement C3 142 mg/dL Normal 82-167 [facility] Comment on above: Result Comment: Perf ormed at: - [facility] [address] [id number] [employer] Registration Specialist: Guanaco Cui PhD, Phone: [phone] Performed By: #### C 3, C4 #### [facility] , #### ESR, CRP, CBC, CREAT, ADDONUAPLUS, HEPATIC #### [facility] [address] [place] [address] Complement C4on 05-28-2022 Complement C4 39 mg/dL High 12-38 [facility] Comment on above: Result Comment: PERF ORMED BY: [place] [address] PATHOLOGIST FLARE STITCHER TOBIAS SCOTT M.D. Performed By: #### C 3, C4 ####[facility] ,#### ESR, CRP, CBC, CREAT, ADDONUAPLUS, HEPATIC ####[facility] Complete Blood Count Auto Di ffon 05-28-2022 Basophils (Bld) [#/Vol] 0.1 10*3/uL Normal 0.0-0.2 [facility] Comment on above: Performed By: #### C 3, C4 #### [facility] , #### ESR, CRP, CBC, CREAT, ADDONUAPLUS, HEPATIC #### [address] Basophils/100 WBC (Bld) 0.6 % Normal . [facility] Comment on above: Performed By: #### C 3, C4 #### [facility] , #### ESR, CRP, CBC, CREAT, ADDONUAPLUS, HEPATIC #### [address] Eosinophils (Bld) [#/Vol] 0.1 10*3/uL Normal 0.0-0.45 [facility] Comment on above: Performed By: #### C 3, C4 #### [facility] , #### ESR, CRP, CBC, CREAT, ADDONUAPLUS, HEPATIC #### [place] [address] [place] Eosinophils/100 WBC (Bld) 1.1 % Normal . [facility] Comment on above: Performed By: #### C 3, C4 #### [facility] , #### ESR, CRP, CBC, CREAT, ADDONUAPLUS, HEPATIC #### [address] Erythrocyte distribution width (RBC) [Ratio] 13.9 % Normal 11.9-15.3 [facility] Comment on above: Performed By: #### C 3, C4 #### [facility] , #### ESR, CRP, CBC, CREAT, ADDONUAPLUS, HEPATIC #### [address] Hematocrit (Bld) [Volume fraction] 47.4 % High 34.0-46.4 [facility] Comment on above: Performed By: #### C 3, C4 #### [facility] , #### ESR, CRP, CBC, CREAT, ADDONUAPLUS, HEPATIC #### [address] Hemoglobin (Bld) [Mass/Vol] 15.6 g/dL High 11.8-15.4 [facility] Comment on above: Performed By: #### C 3, C4 #### [facility] , #### ESR, CRP, CBC, CREAT, ADDONUAPLUS, HEPATIC #### [address] Lymphocytes (Bld) [#/Vol] 1.0 10*3/uL Normal 1.00-4.8 [facility] Comment on above: Performed By: #### C 3, C4 #### [facility] , #### ESR, CRP, CBC, CREAT, ADDONUAPLUS, HEPATIC #### [address] Lymphocytes/100 WBC (Bld) 8.5 % Normal . [facility] Comment on above: Performed By: #### C 3, C4 #### [facility] , #### ESR, CRP, CBC, CREAT, ADDONUAPLUS, HEPATIC #### [address] MCH (RBC) [Entitic mass] 30.4 pg Normal 24.7-34.3 [facility] Comment on above: Performed By: #### C 3, C4 #### [facility] , #### ESR, CRP, CBC, CREAT, ADDONUAPLUS, HEPATIC #### [address] MCV (RBC) [Entitic vol] 92.3 fL Normal 80-100 [facility] Comment on above: Performed By: #### C 3, C4 #### [facility] , #### ESR, CRP, CBC, CREAT, ADDONUAPLUS, HEPATIC #### [address] Mean Corpuscular HGB Conc 32.9 g/dL Normal 32.0-35.0 [facility] Comment on above: Performed By: #### C 3, C4 #### [facility] , #### ESR, CRP, CBC, CREAT, ADDONUAPLUS, HEPATIC #### [address] Monocytes (Bld) [#/Vol] 0.7 10*3/uL Normal 0.0-0.8 [facility] Comment on above: Performed By: #### C 3, C4 #### [facility] , #### ESR, CRP, CBC, CREAT, ADDONUAPLUS, HEPATIC #### [address] Monocytes/100 WBC (Bld) 5.7 % Normal . [facility] Comment on above: Performed By: #### C 3, C4 #### [facility] , #### ESR, CRP, CBC, CREAT, ADDONUAPLUS, HEPATIC #### [address] Neutrophils (Bld) [#/Vol] 9.7 10*3/uL High 1.8-7.7 [facility] Comment on above: Performed By: #### C 3, C4 #### [facility] , #### ESR, CRP, CBC, CREAT, ADDONUAPLUS, HEPATIC #### [address] Neutrophils/100 WBC (Bld) 84.1 % Normal . [facility] Comment on above: Performed By: #### C 3, C4 #### [facility] , #### ESR, CRP, CBC, CREAT, ADDONUAPLUS, HEPATIC #### [address] NRBC% 0.0 /100{WBC} Normal 0-0.5 [facility] Comment on above: Performed By: #### C 3, C4 #### [facility] , #### ESR, CRP, CBC, CREAT, ADDONUAPLUS, HEPATIC #### [address] Platelet mean volume (Bld) [Entitic vol] 9.4 fL Normal 6.3-10.7 [facility] Comment on above: Performed By: #### C 3, C4 #### [facility] , #### ESR, CRP, CBC, CREAT, ADDONUAPLUS, HEPATIC #### [address] Platelets (Bld) [#/Vol] 267 10*3/uL Normal 150-450 [facility] Comment on above: Performed By: #### C 3, C4 #### [facility] , #### ESR, CRP, CBC, CREAT, ADDONUAPLUS, HEPATIC #### [address] RBC (Bld) [#/Vol] 5.13 10*6/uL High 3.60-5.00 [facility] Comment on above: Performed By: #### C 3, C4 #### [facility] , #### ESR, CRP, CBC, CREAT, ADDONUAPLUS, HEPATIC #### [address] WBC (Bld) [#/Vol] 11.6 10*3/uL Normal 3.8-11.6 [facility] Comment on above: Performed By: #### C 3, C4 #### [facility] , #### ESR, CRP, CBC, CREAT, ADDONUAPLUS, HEPATIC #### [facility] [address] [place] [address] [place] Creatinineon 05-28-2022 Creatinine [Mass/Vol] 0.81 mg/dL Normal 0.44-1.03 [facility] Comment on above: Performed By: #### C 3, C4 #### [facility] , #### ESR, CRP, CBC, CREAT, ADDONUAPLUS, HEPATIC #### [address] Estimated GFR ( [place] > 60 Normal [facility] Comment on above: Result Comment: GFR estimated reference range: According to KDOQI guidelines, <60 ml/min/1.73m2 is sufficient to diagnose a patient with chronic kidney disease. Performed By: #### C 3, C4 #### [facility] , #### ESR, CRP, CBC, CREAT, ADDONUAPLUS, HEPATIC #### [facility] [address] [place] [address] Estimated GFR (Non- Am > 60 [facility] Comment on above: Performed By: #### C 3, C4 #### [facility] , #### ESR, CRP, CBC, CREAT, ADDONUAPLUS, HEPATIC #### [facility] [address] [place] [address] [place] Dipstick and Microscopicon 0 05-28-2022 Appearance (U) Clear Normal Clear [facility] Comment on above: Order Comment: Name Collection Type:: Clean-Voided Midstream Performed By: #### C 3, C4 #### [facility] , #### ESR, CRP, CBC, CREAT, ADDONUAPLUS, HEPATIC #### [facility] [address] [place] [address] Bacteria,Urine None Seen Normal None Seen [facility] Comment on above: Order Comment: Name Collection Type:: Clean-Voided Midstream Performed By: #### C 3, C4 #### [facility] , #### ESR, CRP, CBC, CREAT, ADDONUAPLUS, HEPATIC #### [facility] [address] [place] [address] Bilirubin,Urine Negative Normal Negative [facility] Comment on above: Order Comment: Name Collection Type:: Clean-Voided Midstream Performed By: #### C 3, C4 #### [facility] , #### ESR, CRP, CBC, CREAT, ADDONUAPLUS, HEPATIC #### [facility] [address] [place] [address] Color (U) Yellow Normal Yellow [facility] Comment on above: Order Comment: Name Collection Type:: Clean-Voided Midstream Performed By: #### C 3, C4 #### [facility] , #### ESR, CRP, CBC, CREAT, ADDONUAPLUS, HEPATIC #### [facility] [address] [place] [address] Glucose Ql (U) Normal Normal Normal [facility] Comment on above: Order Comment: Name Collection Type:: Clean-Voided Midstream Performed By: #### C 3, C4 #### [facility] , #### ESR, CRP, CBC, CREAT, ADDONUAPLUS, HEPATIC #### [facility] [address] [place] [address] Hyaline Casts,Urine 0-8 Normal 0-8 [facility] Comment on above: Order Comment: Name Collection Type:: Clean-Voided Midstream Result Comment: PERF ORMED BY: [place] [address] PATHOLOGIST FLARE STITCHER TOBIAS SCOTT M.D. Performed By: #### C 3, C4 #### [facility] , #### ESR, CRP, CBC, CREAT, ADDONUAPLUS, HEPATIC #### [facility] [address] [place] [address] Ketones Ql (U) Negative Normal Negative [facility] Comment on above: Order Comment: Name Collection Type:: Clean-Voided Midstream Performed By: #### C 3, C4 #### [facility] , #### ESR, CRP, CBC, CREAT, ADDONUAPLUS, HEPATIC #### [address] Leukocyte esterase Test strip Ql (U) 3+ High Negative [facility] Comment on above: Order Comment: Name Collection Type:: Clean-Voided Midstream Performed By: #### C 3, C4 #### [facility] , #### ESR, CRP, CBC, CREAT, ADDONUAPLUS, HEPATIC #### [address] Nitrite,Urine Negative Normal Negative [facility] Comment on above: Order Comment: Name Collection Type:: Clean-Voided Midstream Performed By: #### C 3, C4 #### [facility] , #### ESR, CRP, CBC, CREAT, ADDONUAPLUS, HEPATIC #### [address] Occult Blood,Urine Negative Normal Negative [facility] Comment on above: Order Comment: Name Collection Type:: Clean-Voided Midstream Performed By: #### C 3, C4 #### [facility] , #### ESR, CRP, CBC, CREAT, ADDONUAPLUS, HEPATIC #### [address] pH (U) 7.5 [pH] Normal 5.0-9.0 [facility] Comment on above: Order Comment: Name Collection Type:: Clean-Voided Midstream Performed By: #### C 3, C4 #### [facility] , #### ESR, CRP, CBC, CREAT, ADDONUAPLUS, HEPATIC #### [address] Protein,Urine Negative Normal Negative [facility] Comment on above: Order Comment: Name Collection Type:: Clean-Voided Midstream Performed By: #### C 3, C4 #### [facility] , #### ESR, CRP, CBC, CREAT, ADDONUAPLUS, HEPATIC #### [address] RBC LM.HPF (Urine sed) [#/Area] 0 /[HPF] Normal 0-4 [facility] Comment on above: Order Comment: Name Collection Type:: Clean-Voided Midstream Performed By: #### C 3, C4 #### [facility] , #### ESR, CRP, CBC, CREAT, ADDONUAPLUS, HEPATIC #### [address] Specificy [place],Urine 1.014 Normal 1.001-1.030 [facility] Comment on above: Order Comment: Name Collection Type:: Clean-Voided Midstream Performed By: #### C 3, C4 #### [facility] , #### ESR, CRP, CBC, CREAT, ADDONUAPLUS, HEPATIC #### [address] Squamous Epithelial Cell,Urine 1-2 Normal 0-2 [facility] Comment on above: Order Comment: Name Collection Type:: Clean-Voided Midstream Performed By: #### C 3, C4 #### [facility] , #### ESR, CRP, CBC, CREAT, ADDONUAPLUS, HEPATIC #### [address] Urobilinogen,Urine Normal Normal Normal [facility] Comment on above: Order Comment: Name Collection Type:: Clean-Voided Midstream Performed By: #### C 3, C4 #### [facility] , #### ESR, CRP, CBC, CREAT, ADDONUAPLUS, HEPATIC #### [facility] [address] [place] [address] WBC,Urine 3-4 Normal 0-4 [facility] Comment on above: Order Comment: Name Collection Type:: Clean-Voided Midstream Performed By: #### C 3, C4 #### [facility] , #### ESR, CRP, CBC, CREAT, ADDONUAPLUS, HEPATIC #### [address] Erythrocyte Sedimentation Ra sarah 05-28-2022 ESR (Bld) [Velocity] 28 mm/h Normal 0-29 [facility] Comment on above: Result Comment: PERF ORMED BY: [place] [address] PATHOLOGIST FLARE STITCHER TOBIAS SCOTT M.D. Performed By: #### C 3, C4 #### [facility] , #### ESR, CRP, CBC, CREAT, ADDONUAPLUS, HEPATIC #### [address] Hepatic Panelon 05-28-2022 Albumin [Mass/Vol] 3.8 g/dL Normal 3.2-5.5 [facility] Comment on above: Performed By: #### C 3, C4 #### [facility] , #### ESR, CRP, CBC, CREAT, ADDONUAPLUS, HEPATIC #### [facility] [address] [place] [address] Albumin/Globulin [Mass ratio] 1.4 {ratio} Normal [facility] Comment on above: Performed By: #### C 3, C4 #### [facility] , #### ESR, CRP, CBC, CREAT, ADDONUAPLUS, HEPATIC #### [facility] [address] [place] [address] ALP [Catalytic activity/Vol] 106 U/L High 32-92 [facility] Comment on above: Performed By: #### C 3, C4 #### [facility] , #### ESR, CRP, CBC, CREAT, ADDONUAPLUS, HEPATIC #### [facility] [address] [place] [address] [place] ALT [Catalytic activity/Vol] 28 U/L Normal 10-60 [facility] Comment on above: Performed By: #### C 3, C4 #### [facility] , #### ESR, CRP, CBC, CREAT, ADDONUAPLUS, HEPATIC #### [address] AST [Catalytic activity/Vol] 33 U/L Normal 10- [facility] Comment on above: Performed By: #### C 3, C4 #### [facility] , #### ESR, CRP, CBC, CREAT, ADDONUAPLUS, HEPATIC #### [facility] [address] [place] [address] Bilirubin [Mass/Vol] 0.8 mg/dL Normal 0.3-1.2 [facility] Comment on above: Performed By: #### C 3, C4 #### [facility] , #### ESR, CRP, CBC, CREAT, ADDONUAPLUS, HEPATIC #### [place] [address] [place] Bilirubin,Indirect 0.6 mg/dL Normal [facility] Comment on above: Performed By: #### C 3, C4 #### [facility] , #### ESR, CRP, CBC, CREAT, ADDONUAPLUS, HEPATIC #### [facility] [address] [place] [address] [place] Bilirubin.indirect [Mass/Vol] 0.2 mg/dL Normal 0.0-0.4 [facility] Comment on above: Performed By: #### C 3, C4 #### [facility] , #### ESR, CRP, CBC, CREAT, ADDONUAPLUS, HEPATIC #### [facility] [address] Globulin (S) [Mass/Vol] 2.8 g/dL Normal [facility] Comment on above: Performed By: #### C 3, C4 #### [facility] , #### ESR, CRP, CBC, CREAT, ADDONUAPLUS, HEPATIC #### [facility] [address] Protein [Mass/Vol] 6.6 g/dL Normal 6.1-7.9 [facility] Comment on above: Performed By: #### C 3, C4 #### [facility] , #### ESR, CRP, CBC, CREAT, ADDONUAPLUS, HEPATIC #### [facility] [address] [place] [address] CULTURE URINEon 03-28-2022 CULTURE URINE Isolate 1 [...] >=320 R F Normal [facility] Comment on above: Performed By: #### C ASA, LIVER #### [facility] [address] [place] [address] [address] Meron Obando XR knee BI 2Von 02-19-2022 XR knee BI 2V [facility] [place] [address] [place] [address] XRay Report Signed Patient: Angelika Goncalves MR#: [id number] 810 : 1940 Acct:[id number] Age/Sex: 81 / F ADM Date: 02/19/22 Loc: ICXD Room: Type: [facility] Attending Dr: Jan Solares MD Copies [...] M.D.02/19/2022 3:22 PM Dictation Location: [place] [address] Transcribed By: [facility] 02/19/221521 Dictated By: Andrew Lane DO 02/19/221516 Signed By: 02/19/221521 Normal [facility] Mitochondrial (M2) Antibodyo n 02-12-2022 Mitochondrial (M2) Antibody <20.0 Normal 0.0-20.0 [facility] Comment on above: Result Comment: Nega tive 0.0 - 20.0 Equivocal 20.1 - 24.9 Positive >24.9 Mitochondrial (M2) Antibodies are found in 90-96% of patients with primary biliary cirrhosis. Performed at: [facility] [id number] [employer] Registration Specialist: Guanaco Cui PhD, Phone: [phone] PERFORMED BY: [place] [address] PATHOLOGIST FLARE STITCHER TOBIAS SCOTT M.D. Performed By: #### M ITOM2 ####[facility] , CULTURE URINEon 02-10-2022 CULTURE URINE Culture Observations : ERIC TO FOLLOW. Isolate 1 Citrobacter spp. >100,000 cfu/mL of Normal [facility] Comment on above: Performed By: #### C ASA, LIVER #### [facility] [address] [address] [address] Meron Obando UA RANDOM W/MICROSCOPICon 11 -07-2022 BACTERIA MODERATE Abnormal NONE SEEN [facility] Comment on above: Performed By: #### U AMIC #### [facility] [address] [address] [address] Meron Obando Bilirubin Ql (U) Negative Normal NEGATIVE [facility] Comment on above: Performed By: #### U AMIC #### [facility] [address] [place] [address] Dr. Meron Obando CAST NONE SEEN Normal NONE SEEN [facility] Comment on above: Performed By: #### U AMIC #### [facility] [address] [address] [address] Meron Obando Clarity (U) CLEAR Normal CLEAR [facility] Comment on above: Performed By: #### U AMIC #### [facility] [address] [place] [address] Dr. Meron Obando Color (U) YELLOW Normal YELLOW [facility] Comment on above: Performed By: #### U AMIC #### [facility] [address] [address] [address] Meron Obando Crystals LM Nom (Urine sed) NONE SEEN Normal NONE SEEN [facility] Comment on above: Performed By: #### U AMIC #### [facility] [address] [place] [address] Dr. Meron Obando Epithelial cells LM Ql (Urine sed) FEW Abnormal NONE SEEN /RARE [facility] Comment on above: Performed By: #### U AMIC #### [facility] [address] [place] [address] Dr. Meron Obando Glucose Ql (U) Negative Normal NEGATIVE [facility] Comment on above: Performed By: #### U AMIC #### [facility] [address] [address] [address] Meron Obando Hemoglobin Ql (U) TRACE-INTACT Abnormal NEGATIVE [facility] Comment on above: Performed By: #### U AMIC #### [facility] [address] [place] [address] Dr. Meron Obando Ketones Ql (U) Negative Normal NEGATIVE [facility] Comment on above: Performed By: #### U AMIC #### [facility] [address] [address] [address] Meron Obando LEUKOCYTES LARGE Abnormal NEGATIVE [facility] Comment on above: Performed By: #### U AMIC #### [facility] [address] [address] [address] Meron Obando MUCOUS NONE SEEN Normal NONE SEEN [facility] Comment on above: Performed By: #### U AMIC #### [facility] [address] [address] [address] Meron Obando Nitrite Ql (U) Negative Normal NEGATIVE [facility] Comment on above: Performed By: #### U AMIC #### [facility] [address] [address] [address] Meron Obando pH (U) 6.0 [pH] Normal 5-9 [facility] Comment on above: Performed By: #### U AMIC #### [facility] [address] [address] [address] Meron Obando RBC 5-10 Abnormal 0-2 [facility] Comment on above: Performed By: #### U AMIC #### [facility] [address] [address] [address] Meron Obando SPEC GRAVITY <=1.005 Abnormal 1.005-<=1.025 [facility] Comment on above: Performed By: #### U AMIC #### [facility] [address] [address] [address] Meron Obando UA PROTEIN Negative Normal NEGATIVE/ TRACE [facility] Comment on above: Performed By: #### U AMIC #### [facility] [address] [address] [address] Meron Obando Urobilinogen Qn (U) 0.2 {Opal'U}/dL Normal 0.2 - 1. 0 [facility] Comment on above: Performed By: #### U AMIC #### [facility] [address] [address] [address] Meron Obando WBC 50-75 Abnormal NONE SEEN [facility] Comment on above: Performed By: #### U AMIC #### [facility] [address] [address] [address] Meron Obando C3 and C4 COMPLEMENTon 01-09 Complement C3, Serum 143 mg/dL Normal 82-167 [facility] Comment on above: Performed By: #### C ASA, LIVER #### [facility] [address] [address] [address] Meron Obando Complement C4, Serum 44 mg/dL Critically high 12-38 [facility] Comment on above: Performed By: #### C ASA, LIVER #### [facility] [address] [address] [address] Meron Obando COMPLEMENT TOTAL (CH50)on Complement, Total (CH50) >60 Normal >41 [facility] Comment on above: Result Comment: Age Male [...] By: #### S EDR #### [facility] [address] [place] [address] Dr. Meron Obando CRPon 01-08-2022 CRP [Mass/Vol] mg/L Normal <=1.0 [facility] Comment on above: Performed By: #### L ADELA CRP #### [facility] [address] [place] [address] Dr. Meron Obando LIVER PROFILEon 01-08-2022 Albumin [Mass/Vol] 3.6 g/dL Normal 3.4-5.0 [facility] Comment on above: Performed By: #### L ADELA CRP #### [facility] [address] [place] [address] Dr. Meron Obando Albumin/Globulin [Mass ratio] 1.0 {ratio} Normal [facility] Comment on above: Performed By: #### L ADELA CRP #### [facility] [address] [address] [address] Meron Obando ALP [Catalytic activity/Vol] 127 U/L Critically high 46-116 [facility] Comment on above: Performed By: #### L IVER, CRP #### [facility] [address] [place] [address] Dr. Meron Obando ALT [Catalytic activity/Vol] 29 U/L Normal 14-59 [facility] Comment on above: Performed By: #### L IVER, CRP #### [facility] [address] [address] [address] Meron Obando AST [Catalytic activity/Vol] 30 U/L Normal 15-37 [facility] Comment on above: Performed By: #### L IVER, CRP #### [facility] [address] [place] [address] Dr. Meron Obando BILI, CONJUGATED 0.2 mg/dL Normal 0.0-0.2 [facility] Comment on above: Performed By: #### L ADELA, CRP #### [facility] [address] [place] [address] Dr. Meron Obando Bilirubin [Mass/Vol] 0.8 mg/dL Normal 0.2-1.0 [facility] Comment on above: Performed By: #### L ADELA, CRP #### [facility] [address] [place] [address] Dr. Meron Obando Globulin (S) [Mass/Vol] 3.7 g/dL Normal [facility] Comment on above: Performed By: #### L IVSURJIT, CRP #### [facility] [address] [place] [address] Dr. Meron Obando Protein [Mass/Vol] 7.3 g/dL Normal 6.4-8.2 [facility] Comment on above: Performed By: #### L IVER, CRP #### [facility] [address] [place] [address] Dr. Meron Obando SED RATE [facility] 2021 SED RATE 35 mm/hr Critically high <=30 [facility] Comment on above: Performed By: #### C ASA, LIVER #### [facility] Laboratory [address] [address] [address] Meron Obando UA RANDOM W/MICROSCOPICon BACTERIA MODERATE Abnormal NONE SEEN [facility] Comment on above: Performed By: #### S EDR #### [facility] [address] [address] [address] Meron Obando Bilirubin Ql (U) Negative Normal NEGATIVE [facility] Comment on above: Performed By: #### S EDR #### [facility] [address] [address] [address] Meron Obando CAST NONE SEEN Normal NONE SEEN [facility] Comment on above: Performed By: #### S EDR #### [facility] [address] [address] [address] Meron Obando Clarity (U) CLOUDY Abnormal CLEAR [facility] Comment on above: Performed By: #### S EDR #### [facility] [address] [address] [address] Meron Obando Color (U) LT. YELLOW Normal YELLOW [facility] Comment on above: Performed By: #### S EDR #### [facility] [address] [address] [address] Meron Obando Crystals LM Nom (Urine sed) NONE SEEN Normal NONE SEEN [facility] Comment on above: Performed By: #### S EDR #### [facility] [address] [place] [address] Dr. Meron Obando Epithelial cells LM Ql (Urine sed) FEW Abnormal NONE SEEN /RARE [facility] Comment on above: Performed By: #### S EDR #### [facility] [address] [address] [address] Meron Obando Glucose Ql (U) Negative Normal NEGATIVE [facility] Comment on above: Performed By: #### S EDR #### [facility] [address] [place] [address] Dr. Meron Obando Hemoglobin Ql (U) TRACE-INTACT Abnormal NEGATIVE [facility] Comment on above: Performed By: #### S EDR #### [facility] [address] [place] [address] Dr. Meron Obando Ketones Ql (U) Negative Normal NEGATIVE [facility] Comment on above: Performed By: #### S EDR #### [facility] [address] [place] [address] Dr. Meron Obando LEUKOCYTES LARGE Abnormal NEGATIVE [facility] Comment on above: Performed By: #### S EDR #### [facility] [address] [place] [address] Dr. Meron Obando MUCOUS NONE SEEN Normal NONE SEEN [facility] Comment on above: Performed By: #### S EDR #### [facility] [address] [place] [address] Dr. Meron Obando Nitrite Ql (U) Negative Normal NEGATIVE [facility] Comment on above: Performed By: #### S EDR #### [facility] [address] [place] [address] Dr. Meron Obando pH (U) 6.0 [pH] Normal 5-9 [facility] Comment on above: Performed By: #### S EDR #### [facility] [address] [place] [address] Dr. Meron Obando RBC 2-5 Abnormal 0-2 [facility] Comment on above: Performed By: #### S EDR #### [facility] [address] [place] [address] Dr. Meron Obando SPEC GRAVITY 1.010 Normal 1.005-<=1.025 [facility] Comment on above: Performed By: #### S EDR #### [facility] [address] [place] [address] Dr. Meron Obando UA PROTEIN Negative Normal NEGATIVE/ TRACE [facility] Comment on above: Performed By: #### S EDR #### [facility] [address] [place] [address] Dr. Meron Obando Urobilinogen Qn (U) 0.2 {Opal'U}/dL Normal 0.2 - 1. 0 [facility] Comment on above: Performed By: #### S EDR #### [facility] [address] [place] [address] Dr. Meron Obando WBC (U) [#/Vol] /uL Abnormal NONE SEEN [facility] Comment on above: Performed By: #### S EDR #### [facility] [address] [place] [address] Dr. Meron Obando CULTURE URINEon 12-15-2021 CULTURE [...] <=20 S F Normal [facility] Comment on above: Performed By: #### C ASA LIVER #### [facility] [address] [place] [address] Dr. Meron Obando CBC AUTO DIFFon 12-10-2021 BASO # 0.1 103/ul Normal 0.0-0.1 [facility] Comment on above: Performed By: #### Ha BRAY LIVER #### [facility] [address] [place] [address] Dr. Meron Obando Basophils/100 WBC (Bld) 0.7 % Normal 0.2-2.0 [facility] Comment on above: Performed By: #### C ASA, LIVER #### [facility] [address] [place] [address] Dr. Meron Obando EO # 0.2 103/ul Normal 0.0-0.7 [facility] Comment on above: Performed By: #### C ASA, LIVER #### [facility] [address] [place] [address] Dr. Meron Obando Eosinophils/100 WBC (Bld) 2.4 % Normal 0.9-7.0 [facility] Comment on above: Performed By: #### C ASA, LIVER #### [facility] [address] [place] [address] Dr. Meron Obando Erythrocyte distribution width (RBC) [Ratio] 15.3 % Critically high 11.0-15.0 [facility] Comment on above: Performed By: #### C ASA, LIVER #### [facility] [address] [place] [address] Dr. Meron Obando Hematocrit (Bld) [Volume fraction] 45.6 % Normal 36.0-48.0 [facility] Comment on above: Performed By: #### C ASA, LIVER #### [facility] [address] [place] [address] Dr. Meron Obando Hemoglobin (Bld) [Mass/Vol] 15.3 g/dL Normal 12.0-16.0 [facility] Comment on above: Performed By: #### Ha BRAY, LIVER #### [facility] [address] [place] [address] Dr. Meron Obando IG # 0.03 10e3/ul Normal 0.00-0.03 [facility] Comment on above: Performed By: #### C ASA, LIVER #### [facility] [address] [place] [address] Dr. Meron Obando IG % 0.3 % Normal 0.0-0.5 [facility] Comment on above: Performed By: #### C ASA, LIVER #### [facility] [address] [place] [address] Dr. Meron Obando LYMPH # 1.6 103/ul Normal 1.2-3.8 [facility] Comment on above: Performed By: #### C ASA, LIVER #### [facility] [address] [place] [address] Dr. Meron Obando Lymphocytes/100 WBC (Bld) 17.0 % Critically low 20.5-60.0 [facility] Comment on above: Performed By: #### C ASA, LIVER #### [facility] [address] [place] [address] Dr. Meron Obando MANUAL DIFF REQ NO Normal [facility] Comment on above: Performed By: #### C ASA, LIVER #### [facility] [address] [place] [address] Dr. Meron Obando MCH (RBC) [Entitic mass] 31.4 pg Normal 26.7-34.0 [facility] Comment on above: Performed By: #### C ASA, LIVER #### [facility] [address] [place] [address] Dr. Meron Obando MCHC (RBC) [Mass/Vol] 33.6 g/dL Normal 29.9-35.2 [facility] Comment on above: Performed By: #### C ASA, LIVER #### [facility] [address] [place] [address] Dr. Meron Obando MCV (RBC) [Entitic vol] 93.6 fL Normal 81.0-99.0 [facility] Comment on above: Performed By: #### C ASA, LIVER #### [facility] [address] [place] [address] Dr. Meron Obando MONO # 1.0 103/ul Critically high 0.3-0.8 [facility] Comment on above: Performed By: #### C ASA, LIVER #### [facility] [address] [place] [address] Dr. Meron Obando Monocytes/100 WBC (Bld) 10.9 % Normal 1.7-12.0 [facility] Comment on above: Performed By: #### C ASA, LIVER #### [facility] [address] [place] [address] Dr. Meron Obando NEUT # 6.3 103/ul Normal 1.4-6.5 [facility] Comment on above: Performed By: #### C ASA, LIVER #### [facility] [address] [place] [address] Dr. Meron Obando Neutrophils/100 WBC (Bld) 68.7 % Normal 43.0-75.0 [facility] Comment on above: Performed By: #### C ASA, LIVER #### [facility] [address] [address] [address] Meron Obando Platelet mean volume (Bld) [Entitic vol] 10.9 fL Normal 9.5-13.5 [facility] Comment on above: Performed By: #### C ASA, LIVER #### [facility] [address] [address] [address] Meron Obando PLT 300 103/ul Normal 150-450 [facility] Comment on above: Performed By: #### C ASA, LIVER #### [facility] [address] [address] [address] Meron Obando RBC 4.87 106/ul Normal 4.20-5.40 [facility] Comment on above: Performed By: #### C ASA, LIVER #### [facility] [address] [place] [address] Dr. Meron Obando WBC 9.2 103/ul Normal 4.0-11.0 [facility] Comment on above: Performed By: #### C ASA, LIVER #### [facility] [address] [place] [address] Dr. Meron Obando CREATININEon 12-10-2021 Creatinine [Mass/Vol] 0.96 mg/dL Normal 0.55-1.02 [facility] Comment on above: Performed By: #### Ha BRAY, LIVER #### [facility] [address] [place] [address] Dr. Meron Obando EGFR-AF AFGHAN >60 Normal >=60 [facility] Comment on above: Performed By: #### Ha BRAY, LIVER #### [facility] [address] [place] [address] Dr. Meron Obando EGFR-NON AF AFGHAN 56 mL/min/1.73m2 Critically low >=60 [facility] Comment on above: Performed By: #### C ASA, LIVER #### [facility] [address] [place] [address] Dr. Meron Obando LIVER PROFILEon 12-10-2021 Albumin [Mass/Vol] 3.4 g/dL Normal 3.4-5.0 [facility] Comment on above: Performed By: #### C ASA, LIVER #### [facility] [address] [address] [address] Meron Obando Albumin/Globulin [Mass ratio] 0.9 {ratio} Normal [facility] Comment on above: Performed By: #### C ASA, LIVER #### [facility] [address] [address] [address] Meron Obando ALP [Catalytic activity/Vol] 149 U/L Critically high 46-116 [facility] Comment on above: Performed By: #### C ASA, LIVER #### [facility] [address] [address] [address] Meron Obando ALT [Catalytic activity/Vol] 36 U/L Normal 14-59 [facility] Comment on above: Performed By: #### C ASA, LIVER #### [facility] [address] [address] [address] Meron Obando AST [Catalytic activity/Vol] 40 U/L Critically high 15-37 [facility] Comment on above: Performed By: #### C ASA, LIVER #### [facility] [address] [address] [address] Meron Obando BILI, CONJUGATED 0.2 mg/dL Normal 0.0-0.2 [facility] Comment on above: Performed By: #### C ASA, LIVER #### [facility] [address] [address] [address] Meron Obando Bilirubin [Mass/Vol] 0.5 mg/dL Normal 0.2-1.0 [facility] Comment on above: Performed By: #### C ASA, LIVER #### [facility] [address] [address] [address] Meron Obando Globulin (S) [Mass/Vol] 3.7 g/dL Normal [facility] Comment on above: Performed By: #### C ASA, LIVER #### [facility] [address] [address] [address] Meron Obando Protein [Mass/Vol] 7.1 g/dL Normal 6.4-8.2 [facility] Comment on above: Performed By: #### C ASA, LIVER #### [facility] [address] [address] [address] Meron Obando SED RATE WESTERGRENon 2021 SED RATE 20 mm/hr Normal <=30 [facility] Comment on above: Performed By: #### S EDR #### [facility] [address] [address] [address] Meron Obando XR chest 2V*on 12-03-2021 XR chest 2V* [facility] [place] [address] [place] [address] XRay Report Signed Patient: Angelika Goncalves MR#: [id number] : 1940 Acct:[id number] Age/Sex: 81 / F ADM Date: 12/03/21 Loc: [facility] Room: Type: [facility] Attending Dr: Jan Solares MD Copies [...] Maria Ansari M.D.12/03/2021 2:07 PM Dictation Location: [facility]- Transcribed By: [facility] 12/03/21 140 Dictated By: Rosa Maria Ansari MD 12/03/21 1405 Signed By: 12/03/21 1407 Normal [facility] CBC AUTO DIFFon 11-25-2021 BASO # 0.1 103/ul Normal 0.0-0.1 [facility] Comment on above: Performed By: #### C ASA, LIVER #### [facility] [address] [place] [address] Dr. Meron Obando Basophils/100 WBC (Bld) 1.1 % Normal 0.2-2.0 [facility] Comment on above: Performed By: #### C ASA, LIVER #### [facility] [address] [place] [address] Dr. Meron Obando EO # 0.2 103/ul Normal 0.0-0.7 [facility] Comment on above: Performed By: #### C ASA, LIVER #### [facility] [address] [place] [address] Dr. Meron Obando Eosinophils/100 WBC (Bld) 2.4 % Normal 0.9-7.0 [facility] Comment on above: Performed By: #### C ASA, LIVER #### [facility] [address] [place] [address] Dr. Meron Obando Erythrocyte distribution width (RBC) [Ratio] 15.1 % Critically high 11.0-15.0 [facility] Comment on above: Performed By: #### C ASA, LIVER #### [facility] [address] [place] [address] Dr. Meron Obando Hematocrit (Bld) [Volume fraction] 48.0 % Normal 36.0-48.0 [facility] Comment on above: Performed By: #### C ASA, LIVER #### [facility] [address] [place] [address] Dr. Meron Obando Hemoglobin (Bld) [Mass/Vol] 15.5 g/dL Normal 12.0-16.0 [facility] Comment on above: Performed By: #### C ASA, LIVER #### [facility] [address] [place] [address] Dr. Meron Obando IG # 0.03 10e3/ul Normal 0.00-0.03 [facility] Comment on above: Performed By: #### C ASA, LIVER #### [facility] [address] [place] [address] Dr. Meron Obando IG % 0.3 % Normal 0.0-0.5 [facility] Comment on above: Performed By: #### C ASA, LIVER #### [facility] [address] [place] [address] Dr. Meron Obando LYMPH # 1.7 103/ul Normal 1.2-3.8 [facility] Comment on above: Performed By: #### C ASA, LIVER #### [facility] [address] [place] [address] Dr. Meron Obando Lymphocytes/100 WBC (Bld) 18.3 % Critically low 20.5-60.0 [facility] Comment on above: Performed By: #### C ASA, LIVER #### [facility] [address] [place] [address] Dr. Meron Obando MANUAL DIFF REQ NO Normal [facility] Comment on above: Performed By: #### C ASA, LIVER #### [facility] [address] [place] [address] Dr. Meron Obando MCH (RBC) [Entitic mass] 30.7 pg Normal 26.7-34.0 [facility] Comment on above: Performed By: #### C ASA, LIVER #### [facility] [address] [place] [address] Dr. Meron Obando MCHC (RBC) [Mass/Vol] 32.3 g/dL Normal 29.9-35.2 [facility] Comment on above: Performed By: #### C ASA, LIVER #### [facility] [address] [place] [address] Dr. Meron Obando MCV (RBC) [Entitic vol] 95.0 fL Normal 81.0-99.0 [facility] Comment on above: Performed By: #### C ASA, LIVER #### [facility] [address] [place] [address] Dr. Meron Obando MONO # 1.0 103/ul Critically high 0.3-0.8 [facility] Comment on above: Performed By: #### C ASA, LIVER #### [facility] [address] [place] [address] Dr. Meron Obando Monocytes/100 WBC (Bld) 10.4 % Normal 1.7-12.0 [facility] Comment on above: Performed By: #### C ASA, LIVER #### [facility] [address] [place] [address] Dr. Meron Obando NEUT # 6.2 103/ul Normal 1.4-6.5 [facility] Comment on above: Performed By: #### C ASA, LIVER #### [facility] [address] [place] [address] Dr. Meron Obando Neutrophils/100 WBC (Bld) 67.5 % Normal 43.0-75.0 [facility] Comment on above: Performed By: #### C ASA, LIVER #### [facility] [address] [place] [address] Dr. Meron Obando Platelet mean volume (Bld) [Entitic vol] 10.8 fL Normal 9.5-13.5 [facility] Comment on above: Performed By: #### Ha BRAY, LIVER #### [facility] [address] [place] [address] Dr. Meron Obando PLT 295 103/ul Normal 150-450 [facility] Comment on above: Performed By: #### C ASA, LIVER #### [facility] [address] [place] [address] Dr. Meron Obando RBC 5.05 106/ul Normal 4.20-5.40 [facility] Comment on above: Performed By: #### Ha BRAY, LIVER #### [facility] [address] [place] [address] Dr. Meron Obando WBC 9.2 103/ul Normal 4.0-11.0 [facility] Comment on above: Performed By: #### C ASA, LIVER #### [facility] [address] [place] [address] Dr. Meron Obando CREATININEon 11-25-2021 Creatinine [Mass/Vol] 1.03 mg/dL Critically high 0.55-1.02 [facility] Comment on above: Performed By: #### S EDR #### [facility] [address] [address] [address] Meron Obando EGFR-AF AFGHAN 39 mL/min/1.73m2 Critically low >=60 [facility] Comment on above: Performed By: #### S EDR #### [facility] [address] [address] [address] Meron Obando EGFR-NON AF AFGHAN 32 mL/min/1.73m2 Critically low >=60 [facility] Comment on above: Performed By: #### S EDR #### [facility] [address] [place] [address] Dr. Meron Obando LIVER PROFILEon 11-25-2021 Albumin [Mass/Vol] 3.5 g/dL Normal 3.4-5.0 [facility] Comment on above: Performed By: #### S EDR #### [facility] [address] [place] [address] Dr. Meron Obando Albumin/Globulin [Mass ratio] 1.0 {ratio} Normal [facility] Comment on above: Performed By: #### S EDR #### [facility] [address] [address] [address] Meron Obando ALP [Catalytic activity/Vol] 135 U/L Critically high 46-116 [facility] Comment on above: Performed By: #### S EDR #### [facility] [address] [place] [address] Dr. Meron Obando ALT [Catalytic activity/Vol] 41 U/L Normal 14-59 [facility] Comment on above: Performed By: #### S EDR #### [facility] [address] [address] [address] Meron Obando AST [Catalytic activity/Vol] 39 U/L Critically high 15-37 [facility] Comment on above: Performed By: #### S EDR #### [facility] [address] [place] [address] Dr. Meron Obando BILI, CONJUGATED 0.1 mg/dL Normal 0.0-0.2 [facility] Comment on above: Performed By: #### S EDR #### [facility] [address] [place] [address] Dr. Meron Obando Bilirubin [Mass/Vol] 0.5 mg/dL Normal 0.2-1.0 [facility] Comment on above: Performed By: #### S EDR #### [facility] [address] [place] [address] Dr. Meron Obando Globulin (S) [Mass/Vol] 3.5 g/dL Normal [facility] Comment on above: Performed By: #### S EDR #### [facility] [address] [place] [address] Dr. Meron Obando Protein [Mass/Vol] 7.0 g/dL Normal 6.4-8.2 [facility] Comment on above: Performed By: #### S EDR #### [facility] [address] [place] [address] Dr. Meron Obando SED RATE WESTERGRENon 2021 SED RATE 11 mm/hr Normal <=30 [facility] Comment on above: Performed By: #### S EDR #### [facility] [address] [place] [address] Dr. Meron Obando CBC AUTO DIFFon 11-13-2021 BASO # 0.1 103/ul Normal 0.0-0.1 [facility] Comment on above: Performed By: #### C BC #### [facility] [address] [place] [address] Dr. Meron Obando Basophils/100 WBC (Bld) 0.8 % Normal 0.2-2.0 [facility] Comment on above: Performed By: #### C BC #### [facility] [address] [place] [address] Dr. Meron Obando EO # 0.2 103/ul Normal 0.0-0.7 [facility] Comment on above: Performed By: #### C BC #### [facility] [address] [place] [address] Dr. Meron Obando Eosinophils/100 WBC (Bld) 1.9 % Normal 0.9-7.0 [facility] Comment on above: Performed By: #### C BC #### [facility] [address] [place] [address] Dr. Meron Obando Erythrocyte distribution width (RBC) [Ratio] 14.4 % Normal 11.0-15.0 [facility] Comment on above: Performed By: #### C BC #### [facility] [address] [place] [address] Dr. Meron Obando Hematocrit (Bld) [Volume fraction] 48.9 % Critically high 36.0-48.0 [facility] Comment on above: Performed By: #### C BC #### [facility] [address] [place] [address] Dr. Meron Obando Hemoglobin (Bld) [Mass/Vol] 16.0 g/dL Normal 12.0-16.0 [facility] Comment on above: Performed By: #### C BC #### [facility] [address] [place] [address] Dr. Meron Obando IG # 0.03 10e3/ul Normal 0.00-0.03 [facility] Comment on above: Performed By: #### C BC #### [facility] [address] [place] [address] Dr. Meron Obando IG % 0.3 % Normal 0.0-0.5 [facility] Comment on above: Performed By: #### C BC #### [facility] [address] [place] [address] Dr. Meron Obando LYMPH # 2.5 103/ul Normal 1.2-3.8 [facility] Comment on above: Performed By: #### C BC #### [facility] [address] [place] [address] Dr. Meron Obando Lymphocytes/100 WBC (Bld) 24.8 % Normal 20.5-60.0 [facility] Comment on above: Performed By: #### C BC #### [facility] [address] [place] [address] Dr. Meron Obando MANUAL DIFF REQ NO Normal [facility] Comment on above: Performed By: #### C BC #### [facility] [address] [address] [address] Meron Obando MCH (RBC) [Entitic mass] 30.9 pg Normal 26.7-34.0 [facility] Comment on above: Performed By: #### C BC #### [facility] [address] [place] [address] Dr. Meron Obando MCHC (RBC) [Mass/Vol] 32.7 g/dL Normal 29.9-35.2 [facility] Comment on above: Performed By: #### C BC #### [facility] [address] [place] [address] Dr. Meron Obando MCV (RBC) [Entitic vol] 94.4 fL Normal 81.0-99.0 [facility] Comment on above: Performed By: #### C BC #### [facility] [address] [place] [address] Dr. Meron Obando MONO # 0.8 103/ul Normal 0.3-0.8 [facility] Comment on above: Performed By: #### C BC #### [facility] [address] [place] [address] Dr. Meron Obando Monocytes/100 WBC (Bld) 7.7 % Normal 1.7-12.0 [facility] Comment on above: Performed By: #### C BC #### [facility] [address] [place] [address] Dr. Meron Obando NEUT # 6.4 103/ul Normal 1.4-6.5 [facility] Comment on above: Performed By: #### C BC #### [facility] [address] [place] [address] Dr. Meron Obando Neutrophils/100 WBC (Bld) 64.5 % Normal 43.0-75.0 [facility] Comment on above: Performed By: #### C BC #### [facility] [address] [place] [address] Dr. Meron Obando Platelet mean volume (Bld) [Entitic vol] 11.1 fL Normal 9.5-13.5 [facility] Comment on above: Performed By: #### C BC #### [facility] [address] [place] [address] Dr. Meron Obando PLT 306 103/ul Normal 150-450 [facility] Comment on above: Performed By: #### C BC #### [facility] [address] [place] [address] Dr. Meron Obando RBC 5.18 106/ul Normal 4.20-5.40 [facility] Comment on above: Performed By: #### C BC #### [facility] [address] [address] [address] Meron Obando WBC 9.9 103/ul Normal 4.0-11.0 [facility] Comment on above: Performed By: #### C BC #### [facility] [address] [place] [address] Dr. Meron Obando CREATININEon 11-13-2021 Creatinine [Mass/Vol] 1.01 mg/dL Normal 0.55-1.02 [facility] Comment on above: Performed By: #### C ASA, LIVER #### [facility] [address] [place] [address] Dr. Meron Obando EGFR-AF AFGHAN >60 Normal >=60 [facility] Comment on above: Performed By: #### C ASA, LIVER #### [facility] [address] [place] [address] Dr. Meron Obando EGFR-NON AF AFGHAN 53 mL/min/1.73m2 Critically low >=60 [facility] Comment on above: Performed By: #### C ASA, LIVER #### [facility] [address] [place] [address] Dr. Meron Obando LIVER PROFILEon 11-13-2021 Albumin [Mass/Vol] 3.4 g/dL Normal 3.4-5.0 [facility] [facility] Comment on above: Performed By: #### S EDR #### [facility] [address] [place] [address] Dr. Meron Obando Albumin/Globulin [Mass ratio] 0.9 {ratio} Normal [facility] Comment on above: Performed By: #### S EDR #### [facility] [address] [address] [address] Meron Obando ALP [Catalytic activity/Vol] 126 U/L Critically high 46-116 [facility] Comment on above: Performed By: #### S EDR #### [facility] [address] [place] [address] Dr. Meron Obando ALT [Catalytic activity/Vol] 58 U/L Normal 14-59 [facility] Comment on above: Performed By: #### S EDR #### [facility] [address] [address] [address] Meron Obando AST [Catalytic activity/Vol] 55 U/L Critically high 15-37 [facility] Comment on above: Performed By: #### S EDR #### [facility] [address] [place] [address] Dr. Meron Obando BILI, CONJUGATED 0.1 mg/dL Normal 0.0-0.2 [facility] Comment on above: Performed By: #### S EDR #### [facility] [address] [place] [address] Dr. Meron Obando Bilirubin [Mass/Vol] 0.5 mg/dL Normal 0.2-1.0 [facility] Comment on above: Performed By: #### S EDR #### [facility] [address] [place] [address] Dr. Meron Obando Globulin (S) [Mass/Vol] 3.6 g/dL Normal [facility] Comment on above: Performed By: #### S EDR #### [facility] [address] [place] [address] Dr. Meron Obando Protein [Mass/Vol] 7.0 g/dL Normal 6.4-8.2 [facility] Comment on above: Performed By: #### S EDR #### [facility] [address] [place] [address] Dr. Meron Obando SED RATE [facility] 2021 SED RATE 13 mm/hr Normal <=30 [facility] Comment on above: Performed By: #### S EDR #### [facility] [address] [place], [place] [id number] Dr. Meron Obando CBC AUTO DIFFon 10-28-2021 BASO # 0.1 103/ul Normal 0.0-0.1 [facility] Comment on above: Performed By: #### C BC #### [facility] [address] [place] [address] Dr. Meron Obando Basophils/100 WBC (Bld) 1.1 % Normal 0.2-2.0 [facility] Comment on above: Performed By: #### C BC #### [facility] [address] [place] [address] Dr. Meron Obando EO # 0.2 103/ul Normal 0.0-0.7 [facility] Comment on above: Performed By: #### C BC #### [facility] [address] [place] [address] Dr. Meron Obando Eosinophils/100 WBC (Bld) 2.3 % Normal 0.9-7.0 [facility] Comment on above: Performed By: #### C BC #### [facility] [address] [place] [address] Dr. Meron Obando Erythrocyte distribution width (RBC) [Ratio] 13.8 % Normal 11.0-15.0 [facility] Comment on above: Performed By: #### C BC #### [facility] [address] [place] [address] Dr. Meron Obando Hematocrit (Bld) [Volume fraction] 46.7 % Normal 36.0-48.0 [facility] Comment on above: Performed By: #### C BC #### [facility] [address] [place] [address] Dr. Meron Obando Hemoglobin (Bld) [Mass/Vol] 15.1 g/dL Normal 12.0-16.0 [facility] Comment on above: Performed By: #### C BC #### [facility] [address] [place] [address] Dr. Meron Obando IG # 0.04 10e3/ul Critically high 0.00-0.03 [facility] Comment on above: Performed By: #### C BC #### [facility] [address] [place] [address] Dr. Meron Obando IG % 0.4 % Normal 0.0-0.5 [facility] Comment on above: Performed By: #### C BC #### [facility] [address] [place] [address] Dr. Meron Obando LYMPH # 1.8 103/ul Normal 1.2-3.8 [facility] Comment on above: Performed By: #### C BC #### [facility] [address] [place] [address] Dr. Meron Obando Lymphocytes/100 WBC (Bld) 18.7 % Critically low 20.5-60.0 [facility] Comment on above: Performed By: #### C BC #### [facility] [address] [place] [address] Dr. Meron Obando MANUAL DIFF REQ NO Normal [facility] Comment on above: Performed By: #### C BC #### [facility] [address] [place] [address] Dr. Meron Obando MCH (RBC) [Entitic mass] 30.5 pg Normal 26.7-34.0 [facility] Comment on above: Performed By: #### C BC #### [facility] [address] [place] [address] Dr. Meron Obando MCHC (RBC) [Mass/Vol] 32.3 g/dL Normal 29.9-35.2 [facility] Comment on above: Performed By: #### C BC #### [facility] [address] [place] [address] Dr. Meron Obando MCV (RBC) [Entitic vol] 94.3 fL Normal 81.0-99.0 [facility] Comment on above: Performed By: #### C BC #### [facility] [address] [place] [address] Dr. Meron Obando MONO # 1.1 103/ul Critically high 0.3-0.8 [facility] Comment on above: Performed By: #### C BC #### [facility] [address] [place] [address] Dr. Meron Obando Monocytes/100 WBC (Bld) 11.0 % Normal 1.7-12.0 [facility] Comment on above: Performed By: #### C BC #### [facility] [address] [place] [address] Dr. Meron Obando NEUT # 6.4 103/ul Normal 1.4-6.5 [facility] Comment on above: Performed By: #### C BC #### [facility] [address] [place] [address] Dr. Meron Obando Neutrophils/100 WBC (Bld) 66.5 % Normal 43.0-75.0 [facility] Comment on above: Performed By: #### C BC #### [facility] [address] [place] [address] Dr. Meron Obando Platelet mean volume (Bld) [Entitic vol] 11.1 fL Normal 9.5-13.5 [facility] Comment on above: Performed By: #### C BC #### [facility] [address] [place] [address] Dr. Meron Obando PLT 249 103/ul Normal 150-450 [facility] Comment on above: Performed By: #### C BC #### [facility] [address] [place] [address] Dr. Meron Obando RBC 4.95 106/ul Normal 4.20-5.40 [facility] Comment on above: Performed By: #### C BC #### [facility] [address] [place] [address] Dr. Meron Obando WBC 9.7 103/ul Normal 4.0-11.0 [facility] Comment on above: Performed By: #### C BC #### [facility] [address] [place] [address] Dr. Meron Obando CREATININEon 10-28-2021 Creatinine [Mass/Vol] 0.98 mg/dL Normal 0.55-1.02 [facility] Comment on above: Performed By: #### C ASA, LIVER #### [facility] [address] [place] [address] Dr. Meron Obando EGFR-AF AFGHAN >60 Normal >=60 [facility] Comment on above: Performed By: #### C ASA, LIVER #### [facility] [address] [place] [address] Dr. Meron Obando EGFR-NON AF AFGHAN 54 mL/min/1.73m2 Critically low >=60 [facility] Comment on above: Performed By: #### C ASA, LIVER #### [facility] [address] [place] [address] Dr. Meron Obando LIVER PROFILEon 10-28-2021 Albumin [Mass/Vol] 3.3 g/dL Critically low 3.4-5.0 [facility] Comment on above: Performed By: #### C ASA, LIVER #### [facility] [address] [place] [address] Dr. Meron Obando Albumin/Globulin [Mass ratio] 0.9 {ratio} Normal [facility] Comment on above: Performed By: #### C ASA, LIVER #### [facility] [address] [place] [address] Dr. Meron Obando ALP [Catalytic activity/Vol] 127 U/L Critically high 46-116 [facility] Comment on above: Performed By: #### C ASA, LIVER #### [facility] [address] [place] [address] Dr. Meron Obando ALT [Catalytic activity/Vol] 38 U/L Normal 14-59 [facility] Comment on above: Performed By: #### C ASA, LIVER #### [facility] [address] [place] [address] Dr. Meron Obando AST [Catalytic activity/Vol] 33 U/L Normal 15-37 [facility] Comment on above: Performed By: #### C ASA, LIVER #### [facility] [address] [place] [address] Dr. Meron Obando BILI, CONJUGATED 0.1 mg/dL Normal 0.0-0.2 [facility] Comment on above: Performed By: #### C ASA, LIVER #### [facility] [address] [place] [address] Dr. Meron Obando Bilirubin [Mass/Vol] 0.3 mg/dL Normal 0.2-1.0 [facility] Comment on above: Performed By: #### C ASA, LIVER #### [facility] [address] [place] [address] Dr. Meron Obando Globulin (S) [Mass/Vol] 3.7 g/dL Normal [facility] Comment on above: Performed By: #### C ASA, LIVER #### [facility] [address] [address] [address] Meron Obando Protein [Mass/Vol] 7.0 g/dL Normal 6.4-8.2 [facility] Comment on above: Performed By: #### C ASA, LIVER #### [facility] [address] [place] [address] Dr. Meron Obando SED RATE [facility] 2021 SED RATE 8 mm/hr Normal <=30 [facility] Comment on above: Performed By: #### S EDR #### [facility] [address] [place] [address] Dr. Meron Obando Hepatitis B Core Antibodyon 10-09-2021 Hepatitis B Core Antibody Negative Normal Negative [facility] Comment on above: Result Comment: Perf ormed at: CB - [facility] [address] [id number] [employer] Registration Specialist: Guanaco Cui PhD, Phone: [phone] PERFORMED BY: [facility] [address] [place] [address] PATHOLOGIST FLARE STITCHER TOBIAS SCOTT M.D. Performed By: #### H BCAB #### [facility] , No Panel InformationOrdered By: Jna Solares on 10-09-2021 Hepatitis B Core Total Antibody Negative Negative [facility] Comment on above: Performed at: CB - [facility] [address] [id number] [employer] Registration Specialist: Guanaco Cui PhD, Phone: [phone] Q - CULTURE,URINE,ROUTINEon 05-07-2021 CULTURE, URINE, ROUTINE SEE NOTE Normal [place] [employer] Comment on above: Order Comment: [facility] performed at: QPT, [employer] [facility], [address] [facility], [address] [facility], [place], [address], Panelboard Assembler: Harsh Hopkins MD [facility] Collection Date/Time: [facility] Results Received Date/Time: [facility] Reported Date/Time: Result Comment: CULT URE, URINE, ROUTINE Micro Number: [id number] Test Status: Final Specimen Source: Urine Specimen Quality: Adequate Result: No Growth Performed By: #### 6 [id number] #### [facility] [address] [place] [address] Vital Signs Date Time Vital Sign Value Performing Clinician Rachel wilkerson 04-10-2023 14:14-0500 Body height 152.4 cm Jan Smith MD Work Phone: [employer] 04-10-2023 14:14-0500 Body mass index (BMI) [Ratio] 21.87 kg/m2 Jan Smith MD Work Phone: [employer] 04-10-2023 14:14-0500 Body weight 50.8 kg Jan Smith MD Work Phone: [employer] 04-10-2023 14:14-0500 Diastolic blood pressure 80 mm[Hg] Jan Smith MD Work Phone: [employer] 04-10-2023 14:14-0500 Heart rate 84 /min Jan Smith MD Work Phone: [employer] 04-10-2023 14:14-0500 SaO2% (BldA) [Mass fraction] 91 % Jan Smith MD Work Phone: [employer] 04-10-2023 14:14-0500 Systolic blood pressure 130 mm[Hg] Jan Smith MD Work Phone: [employer] Encounters Encounter Date Encounter Type Care Provider Facility Start: 10-02-2023 End: 10-02-2023 ambulatory JAN SOLARES [facility] Start: 09-22-2023 End: 09-22-2023 ambulatory BOONE EWING Not Available Start: 07-29-2023 End: 07-29-2023 ambulatory BOONE EWING Not Available Start: 07-23-2023 End: 07-23-2023 ambulatory SHAIKH MILADHERMILO Not Available Start: 07-09-2023 End: 07-09-2023 ambulatory [facility] Start: 06-03-2023 End: 06-03-2023 ambulatory SHAIKH ASHLEY Not Available Start: 05-13-2023 End: 05-13-2023 ambulatory [facility] Start: 04-10-2023 End: 04-10-2023 Office outpatient visit 25 minutes Jan Smith MD Work Phone: [facility] Comment on above: 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); Dyslipidemia; Primary hypertension Start: 04-10-2023 End: 04-10-2023 ambulatory COUNCIL Jonathon [facility] Start: 04-09-2023 Telephone encounter Toyin Bass [facility] Start: 03-23-2023 End: 03-23-2023 ambulatory BOONE EWING Not Available Start: 05-28-2022 End: 05-28-2022 ambulatory Jan Solares Facility:[facility] Start: 03-25-2022 End: 03-25-[address] BOONE EWING Facility: Start: 02-19-2022 End: 02-19-2022 ambulatory Jan Solares Facility:[facility] Start: 02-12-2022 End: 02-12-2022 ambulatory Jan Chenadadylan Facility:[facility] Start: 02-12-2022 End: 02-12-2022 ambulatory DO Carin Brady Work Phone: [facility] Work Phone: Start: 02-12-2022 End: 02-12-2022 Patient encounter procedure DO Carin Brady Work Phone: [facility] [address] Start: 02-10-2022 End: 02-10-[address] BOONE EWING Facility:[facility] Start: 01-08-2022 End: 01-09-[address] JAN SOLARES Facility:[facility] Start: 12-12-2021 End: 12-12-[address] BOONE EWING Facility:[facility] Start: 12-10-2021 End: 01-04-[address] JAN SOLARES Facility:[facility] Start: 12-03-2021 End: 12-03-2021 ambulatory Jan Solares Facility:[facility] Start: 12-03-2021 End: 12-03-2021 Patient encounter procedure DO Carin Brady Work Phone: [facility] [address] Start: 11-13-2021 End: 12-04-[address] JAN SOLARES Facility:[facility] Start: 10-28-2021 End: 11-01-[address] JAN SOLARES Facility:[facility] Start: 10-09-2021 End: 10-09-2021 ambulatory Jan Solares Facility:[facility] Start: 10-09-2021 End: 10-09-2021 Patient encounter procedure DO Carin Brady Work Phone: [facility] [address] Procedures Date Procedure Procedure Detail Performing Clinician Start: 04-10-2023 Follow-up visit Follow-up JAN SMITH Start: 04-10-2023 Ecg routine ecg w/le ast 12 lds w/i&r Jan Smith MD Work Phone: Start: 12-03-2021 Plain chest X-ray DO Re jose eduardorochelle Brady Work Phone: Start: 01-07-2021 Adult depression screening assessment Toyin Bass [employer] Start: 08-30-2020 H/O: surgery S/P nasal septoplasty J ibeth Bass [employer] Start: 11-26-2018 History of coronary artery bypass grafting History of coronary artery bypass graft x 2 Toyin Bass [employer] History of coronary artery bypass grafting History of coronary artery bypass graft x 2 Jan Smith MD Work Phone: Plan of Treatment Date Care Activity Detail Author Start: 04-10-2024 Adult BMI Screening Adult BMI Screening [facility] Start: 04-10-2024 Tobacco Screening Tobacco Screening [facility] Start: 08-08-2023 Adult BMI Screening Adult BMI Screening [facility] Start: 04-10-2023 End: 04-10-2023 Patient encounter procedure 04/10/2023 2:30 PM EST Office Visit [facility] [address] [place] [address] Jan Smith MD [address] [place] [address] [facility] Start: 12-23-2022 Tobacco Screening Tobacco Screening [facility] Start: 01-07-2022 Depression Screening Depression Screening [facility] Start: 02-17-2020 Administration of varicella zoster vaccine Zoster (Shingles) Vaccine (3 of 3) [facility] Start: 2005 Fall Risk Screening Fall Risk Screening [facility] Start: 1959 DTaP,Tdap and Td Vaccines (1 - Tdap) DTaP,Tdap and Td Vaccines (1 - Tdap) [facility] Start: 1940 Medicare Annual Wellness Visit Medicare Annual Wellness Visit [facility] Hepatitis B core ant ibody [facility] Work Phone: Immunizations Immunization Date Immunization Notes Care Provider Fa cility 05-24-2020 COVID-19, mRNA, LNP- S, PF, 100mcg/0.5mL Dose Toyin Bass [facility] 04-27-2020 COVID-19, mRNA, LNP- S, PF, 100mcg/0.5mL Dose Toyin Bass [facility] 12-23-2019 zoster vaccine, unspecified formulation Toyin Bass [facility] Payers Date Payer Category Payer Self-pay [id number] 2011 Unknown [id number] 2005 Medicare MEDICARE MEDICAR E PART A & B [id number] 2005-Present [phone] [facility] [id number] [place] [address] [id number] 1959 Medicare [id number] 1959 Unknown [id number] 1940 Unknown [id number] 2.16.840.1.635014.3.579.2.593 1940 Unknown [id number] 2.16.840.1.084228.3.579.2.593 1940 Unknown [id number] 2.16.840.1.885734.3.579.2.593 1940 Unknown [id number] 2.16.840.1.459478.3.579.2.593 1940 Unknown [id number] 2.16.840.1.766443.3.579.2.593 1940 Unknown [id number] 2.16.840.1.785758.3.579.2.593 1940 Unknown [id number] 2.16.840.1.372128.3.579.2.593 1940 Unknown [id number] 2.16.840.1.466318.3.579.2.125 9 1940 Unknown [id number] 2.16.840.1.286585.3.579.2.125 9 1940 Unknown [id number] 2.16.840.1.287411.3.579.2.125 9 1940 Unknown [id number] 2.16.840.1.172221.3.579.2.125 9 1940 Unknown [id number] 2.16.840.1.376567.3.579.2.125 9 1940 Unknown [id number] 2.16.840.1.979708.3.579.2.128 6 1940 Unknown [id number] 2.16.840.1.944847.3.579.2.128 6 1940 Unknown [id number] 2.16.840.1.825583.3.579.2.128 6 1940 Unknown [id number] 2.16.840.1.642141.3.579.2.128 6 Unknown [id number] 2.16.840.1.880074.3.579.2.531 Unknown [id number] 2.16.840.1.920942.3.579.2.531 Unknown [id number] 2.16.840.1.300660.3.579.2.531 Unknown [id number] 2.16.840.1.407905.3.579.2.531 Unknown [id number] 2.16.840.1.469564.3.579.2.531 Social History Date Type Detail Facility Tobacco smoking stat us OHIS Unknown if ever smoked [facility] Work Phone: Start: 1940 Sex Assigned At Female F [facility] Start: 04-16-2017 End: 04-10-2023 Tobacco smoking status NHIS Never smoked tobacco [facility] Work Phone: Start: 04-16-2017 End: 04-10-2023 Tobacco use and exposure Smokeless tobacco non-user [facility] Start: 12-23-2021 End: 04-10-2023 Alcohol intake Current drinker of alcohol (finding) [facility] Start: 11-25-2018 End: 04-24-2020 History of Social function [facility] Start: 11-25-2018 End: 04-24-2020 Social connection and isolation panel [facility] Frequency of Communi cation with Friends and Family More than three times a week [facility] Start: 11-25-2018 Education 12 [facility] Start: 10-21-2019 Alcohol Comment rarely [facility] History of Present illness Narrative 04-10-2023 Jan Smith MD - 04/10/2023 2:30 PM EST Note Date & Type Note Facility 04-10-2023 History of Present illness Narrative Angelika Goncalves Date of visit: 04/10/2023 Date of : 1940 Age: 83 y.o. Patient Active Problem List Diagnosis Cervical spondylosis without myelopathy Iron deficiency anemia Coronary artery disease involving [place] coronary artery of [place] heart History of coronary artery bypass graft [...] FOR ANY FURTHER REFILLS. 90 tablet 3 hyfdvjwl-qzgg-AF-calcium &mins (THERAGRAN-M) 9 mg iron-400 mcg tablet [...] Sat, Sun (2.5mg Thu, Thu, Thu) sod iszpm-gtcdrk-ckiuhp bottle (NEILMED SINUS RINSE COMPLETE) packet with [...] palpitations. 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 CABGX2/LIMAX1/SVGX1/EVH LEFT UPPER LEG/MINA N/A 11/03/2018 Performed by Kel Sherman MD at [facility] Cardiac catheterization N/A 11/01/2018 Performed by Kalin Hamm MD at [facility] CARD[facility]AC CATH [facility] Coronary angiogram and left ventricular gram/pressure N/A 11/01/2018 Performed by Kalin Hamm MD at [facility] CARD[facility] CATH [facility]S HYSTERECTOMY 1986 complete INJECTION MEDIAL BRANCH NERVE BLOCK: right C34 45 56mbb Right 09/07/2017 Performed by Kel Serna MD at [facility] INJECTION MEDIAL BRANCH NERVE BLOCK: right C34 45 56mbb Right 07/31/2017 Performed by Kel Serna MD at [facility] RADIO FREQUENCY ABLATION: right C34 45 56 Right 06/21/2018 Performed by Kel Serna MD at [facility] RADIOFREQUENCY ABLATION SPINAL: right C34 45 56rfa Right 09/25/2017 Performed by Kle Serna MD at [facility] RADIOFREQUENCY TURBINATE NASAL Bilateral 08/23/2020 Performed by Eddie Santana MD PhD at [facility] SEPTOPLASTY Circumferential 08/23/2020 Performed by Eddie Santana MD PhD at [facility] TONSILLECTOMY TUBAL LIGATION Family History Problem [...] 0 min Stress: Stress Concern Present (11/25/2018) [employer] - Occupational Stress Questionnaire [...] by mouth 2 (two) times a day. svwclbzp-ycnb-OZ-calcium &mins (THERAGRAN-M) 9 mg iron-400 mcg tablet [...] Referring Physician: Boone Ewing MD [address] [place] [address] documented in this encounter [employer] [facility] Note 04-09-2023 Telephone Encounter - Toyin [...] Note Facility Evaluation note No assessment information [facility] Work Phone: Evaluation note Note Date & [...] section and content) DATE CREATED AUTHOR 05/10/2021 [facility] dical Specialist DATE CREATED AUTHOR AUTHOR'S ORGANIZ ATION 04/02/2022 [facility] DATE CREATED AUTHOR AUTHOR'S ORGANIZ ATION 06/07/2022 [facility] DATE CREATED AUTHOR AUTHOR'S ORGANIZ ATION 09/24/2023 [facility] dical Specialists EPIC DATE CREATED AUTHOR AUTHOR'S ORGANIZ ATION 10/04/2023 [facility] Care Teams (unrecognized sec tion and content) Team Status: Inactive Member Role Status Dates Carin Brady , Primary Care Provider Active Jan Solares MD Attending Provider Active Team Status: Active Member Role Status Dates Carin Brady , Primary Care Provider Active Pediatric Oncology Nurse Relationship Specialty Start Date End Date Boone Ewing MD [address] [place] [address] PCP - General Family Medicine 12/23/21 Pediatric Oncology Nurse Relationship Specialty Start Date End Date Boone Ewing MD [address] [place] [address] PCP - General Family Medicine 12/23/21 Goals [...] BE BASED ON THE PRIMARY CLINICAL RECORDS. [employer] provides no warranty or guarantee of the accuracy or completeness of information in this document.
[2023-11-03] MEDS: LIDOCAINE HCL/EPINEPHRINE 10 ML, SODIUM BICARBONATE 1 MEQ INJ (13:20)
[2023-11-03] MEDS: LIDOCAINE HCL 10 ML, SODIUM BICARBONATE 1 MEQ INJ (13:20)
--- NOTE | 2023-11-03 14:59 | SUR.PREOP ---
10/29/23 Pt instructed on procedure, date, time, and prep. Pt instructed to hold ASA x 5 days prior to biopsy.
== END 2023-11-03 13:50 | disposition home or self-care (01) ==
LOC: US 12:25
PROVIDERS: Radiology Diagnostic Radiology; PCP Family Medicine; Visit Provider Family Medicine
DX: C50.411 Malignant neoplasm of upper-outer quadrant of right female breast (principal)
CPT/HCPCS: 19083; 77065; 88305

== ENCOUNTER 2023-12-01 12:46 | Outpatient (OUT) | payer MEDICARE, OTHER, SELFPAY ==
--- NOTE | 2023-12-01 13:00 | CA_ITS ---
Patient Name: TRAVIS GONCALVES MR#: [id number] : 1940 Exam Date: 12/01/2023 Ordering Doctor: DR. WILL CUADRA M.D. ECHOCARDIOGRAM REPORT PROCEDURE: CA ECHO DOPPLER COMPLETE INDICATIONS: Cardiotoxic drug therapy, CABGx2, hypertension COMPARISON: None. DESCRIPTION: COMPLETE ECHOCARDIOGRAM Real-time transthoracic echocardiography with 2D, M-mode, spectral and color flow Doppler performed. QUALITY: Technical quality was good. LEFT VENTRICLE: Normal chamber size. Proximal septal hypertrophy (sigmoid septum). Systolic function is normal. LV EF: Normal left ventricular ejection fraction, (60%). DIASTOLIC: Grade 2 diastolic dysfunction. ATRIAL SEPTUM: Visually appears intact. LEFT ATRIUM: Moderate dilatation. RIGHT ATRIUM: Moderate dilatation. RIGHT VENTRICLE: Normal chamber size. Normal right ventricular systolic function. TRICUSPID VALVE: Normal mobility and thickness. No stenosis with moderate regurgitation. Doppler studies reveal mildly (35-45) elevated right sided pressures. RVSP 43 mmHg MITRAL VALVE: Normal mobility and thickness. No evidence of mitral valve stenosis. There is no mitral annular calcification. Mild to moderate mitral regurgitation. AORTIC VALVE: Normal trileaflet appearance. No visible sclerosis. Normal leaflet mobility. No evidence of aortic valve stenosis. No aortic regurgitation. AORTIC ROOT: Normal diameter and appearance. PULMONIC VALVE: Normal thickness and mobility. No stenosis. Trivial regurgitation. PERICARDIUM: No evidence of pericardial effusion. IVC: Collapses with inspirations. PLEURA: CONCLUSION: 1. Normal left ventricular size with normal systolic function. LVEF is estimated at 60%. 2. Normal right ventricular size and systolic function. 3. Grade 2 diastolic dysfunction. 4. Mild to moderate mitral regurgitation. 5. Moderate tricuspid regurgitation. 6. Moderately elevated right-sided pressures. RVSP is 43 mmHg. 7. No pericardial effusion. Adult Echocardiography Procedure Report Left Ventricle LVEDD (3.7 - 5.6 cm): 3.35 cm LVESD (2.2 - 4.0 cm): 2.55 cm LVIVS thickness (0.6 - 1.2 cm): 1.07 cm LVPW thickness (0.5 - 1.0 cm): 0.91 cm e': 0.08 m/s E - e': 7.29 LVOT Max Gradient: 3.17 mm[Hg] LVOT Area (cm2): 0.89 m/s Peak Velocity (LVOT): 0.89 m/s Mean Velocity (LVOT): 0.60 m/s LVOT Diameter 1.81 cm Left Atrium LA Volume Index (2D A2C): 28.95 ml/m2 Left Atrium Systolic Dimension: 3.66 cm Mitral Valve MV E to A Ratio: 0.79 Mitral Valve A-Wave Peak Velocity: 0.72 m/s Mitral Valve E-Wave Peak Velocity: 0.57 m/s Right Ventricle Aorta AO Root Diam: 3.12 cm Aortic Valve AoV Area (Peak Johan): 1.87 cm2, 1.87 cm2 AoV Area (VTI): 2.04 cm2, 2.04 cm2 Peak Velocity(Antegrade Flow): 1.23 m/s Peak Gradient(Antegrade Flow): 6.04 mm[Hg] Mean Velocity(Antegrade Flow): 0.80 m/s Mean Gradient(Antegrade Flow): 3.04 mm[Hg] Velocity Time Integral: 27.98 cm Tricuspid Valve Peak Velocity (Regurgitant Flow): 3.09 m/s, 3.18 m/s, 2.72 m/s, 2.76 m/s Pulmonic Valve Mean Gradient: 0.60 mm[Hg] Mean Velocity: 0.36 m/s Peak Velocity: 0.56 m/s, 0.49 m/s Peak Gradient: 0.95 mm[Hg], 1.25 mm[Hg] Right Atrium Right Atrium Systolic Pressure: 28.04 ml, 28.04 ml Dictated by: Hiren Moore M.D. on 12/01/2023 at 19:49 Approved by: Hiren Moore M.D. on 12/01/2023 at 19:54
== END 2023-12-01 12:47 | disposition home or self-care (01) ==
LOC: CARD 12:47
PROVIDERS: PCP Family Medicine
DX: C50.911 Malignant neoplasm of unspecified site of right female breast (principal); Z51.81 Encounter for therapeutic drug level monitoring; Z79.899 Other long term (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
CPT/HCPCS: 93306; 93356

== ENCOUNTER 2024-01-28 14:31 | Outpatient (OUT) | payer MEDICARE, OTHER, SELFPAY ==
--- NOTE | 2024-01-28 14:45 | CA_ITS ---
Patient Name: TRAVIS GONCALVES MR#: [id number] : 1940 Exam Date: 01/28/2024 Ordering Doctor: DR. WILL CUADRA M.D. ECHOCARDIOGRAM REPORT PROCEDURE: CA ECHO DOPPLER COMPLETE INDICATIONS: HER2-positive CA right breast, Cardiotoxic drug theraphy COMPARISON: None. DESCRIPTION: COMPLETE ECHOCARDIOGRAM Real-time transthoracic echocardiography with 2D, M-mode, spectral and color flow Doppler performed. QUALITY: Technical quality was good. LEFT VENTRICLE: Normal chamber size. Borderline left ventricular hypertrophy. Global left ventricular systolic function is normal. LV EF: Visual estimation of left ventricular ejection fraction is 65-70% DIASTOLIC: Grade II diastolic dysfunction. ATRIAL SEPTUM: LEFT ATRIUM: Moderate dilatation. RIGHT ATRIUM: Moderate dilatation. RIGHT VENTRICLE: Normal chamber size. Normal right ventricular systolic function. TRICUSPID VALVE: Normal mobility and thickness. No stenosis with moderate regurgitation. Moderate pulmonary hypertension. RVSP 46 mmHg MITRAL VALVE: Mildly thickened with normal mobility. No evidence of mitral valve stenosis. There is no mitral annular calcification. Mild mitral regurgitation. AORTIC VALVE: Normal trileaflet appearance. No visible sclerosis. Normal leaflet mobility. No evidence of aortic valve stenosis. Trivial aortic regurgitation. AORTIC ROOT: Normal diameter and appearance. The ascending aorta is normal in size measuring 3.2 cm. PULMONIC VALVE: Normal thickness and mobility. No stenosis. No regurgitation. PERICARDIUM: No evidence of pericardial effusion. IVC: Collapses with inspirations. Normal size. PLEURA: CONCLUSION: 1. Borderline left ventricular hypertrophy with normal systolic function. LVEF is estimated at 65 to 70%. 2. Normal right ventricular size and systolic function. 3. Moderate biatrial dilatation. 4. Grade 2 diastolic dysfunction. 5. Mild mitral and moderate tricuspid regurgitation. 6. Moderately elevated right-sided pressures. RVSP is 46 mmHg. 7. No pericardial effusion. Adult Echocardiography Procedure Report Left Ventricle LVEDD (3.7 - 5.6 cm): 3.42 cm LVESD (2.2 - 4.0 cm): 2.54 cm LVIVS thickness (0.6 - 1.2 cm): 1.02 cm LVPW thickness (0.5 - 1.0 cm): 0.89 cm e': 0.09 m/s E - e': 9.37 LVOT Max Gradient: 2.83 mm[Hg] LVOT Area (cm2): 0.84 m/s Peak Velocity (LVOT): 0.84 m/s Mean Velocity (LVOT): 0.58 m/s LVOT Diameter 1.95 cm Left Ventricular Ejection Fraction: 65-70 % Left Atrium LA Volume Index (2D A2C): 39.36 ml/m2 Left Atrium Systolic Dimension: 2.47 cm Mitral Valve MV E to A Ratio: 0.89 Mitral Valve A-Wave Peak Velocity: 0.98 m/s Mitral Valve E-Wave Peak Velocity: 0.86 m/s Right Ventricle RV Internal Diastolic Dimension: 2.93 cm Aorta AO Root Diam: 2.99 cm Ascending Ao Diam: 3.16 cm Aortic Valve AoV Area (Peak Johan): 2.31 cm2, 2.31 cm2 AoV Area (VTI): 2.39 cm2, 2.39 cm2 Peak Velocity(Antegrade Flow): 1.09 m/s Peak Gradient(Antegrade Flow): 4.71 mm[Hg] Mean Velocity(Antegrade Flow): 0.80 m/s Mean Gradient(Antegrade Flow): 2.84 mm[Hg] Velocity Time Integral: 27.28 cm Tricuspid Valve Peak Velocity (Regurgitant Flow): 3.27 m/s, 3.02 m/s, 3.14 m/s Pulmonic Valve Mean Gradient: 0.79 mm[Hg], 0.97 mm[Hg] Mean Velocity: 0.42 m/s, 0.46 m/s Peak Velocity: 0.64 m/s Peak Gradient: 1.47 mm[Hg], 1.83 mm[Hg] Right Atrium Right Atrium Systolic Pressure: 46.72 ml, 46.72 ml Dictated by: Hiren Moore M.D. on 01/28/2024 at 18:48 Approved by: Hiren Moore M.D. on 01/28/2024 at 18:52
== END 2024-01-28 14:32 | disposition home or self-care (01) ==
LOC: CARD 14:33
PROVIDERS: PCP Family Medicine; Visit Provider Internal Medicine Hematology & Oncology
DX: Z51.81 Encounter for therapeutic drug level monitoring (principal); C50.911 Malignant neoplasm of unspecified site of right female breast; Z17.31 Human epidermal growth factor receptor 2 positive status; Z79.899 Other long term (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
CPT/HCPCS: 93306; 93356

== ENCOUNTER 2024-02-04 10:57 | Outpatient (RCR) | payer MEDICARE, OTHER, SELFPAY | END 2024-02-10 13:58 | disposition home or self-care (01) | LOC: PT 10:57 | PROVIDERS: PCP Family Medicine; Visit Provider Family Medicine | DX: M54.6 Pain in thoracic spine (principal); M25.519 Pain in unspecified shoulder | CPT/HCPCS: 20561; 97110; 97162 ==

== ENCOUNTER 2024-03-21 09:47 | Outpatient (OUT) | payer MEDICARE, OTHER, SELFPAY ==
--- NOTE | 2024-03-21 09:54 | US_ITS ---
Patient Name: TRAVIS GONCALVES MR#: [id number] : 1940 Exam Date: 03/21/2024 Ordering Doctor: DR. WILL CUADRA M.D. RADIOLOGY REPORT PROCEDURE: US BREAST RT LIMITED COMPARISON: US BREAST RT LIMITED, 10/27/2023. 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 FINDINGS: DIAGNOSTIC CATEGORY 6--KNOWN BIOPSY PROVEN MALIGNANCY: RIGHT BREAST Again demonstrated in the 10 o'clock position the right breast is a focal heterogeneous vascular mass, decreased in size currently measuring 5.1 x 2.1 x 1.8 cm. RECOMMENDATIONS: CLINICAL EVALUATION. PLEASE NOTE: A NORMAL ULTRASOUND EXAMINATION DOES NOT EXCLUDE THE POSSIBILITY OF BREAST CANCER. A CLINICALLY SUSPICIOUS PALPABLE LUMP SHOULD BE BIOPSIED. Dictated by: Juan Jones MD on 03/21/2024 at 10:56 Approved by: Juan Jones MD on 03/21/2024 at 10:58
--- OUTSIDE RECORDS SUMMARY | 2024-03-21 10:11 | XMS_ITS | CCD ---
Author Organization [facility] Care Team Providers Care Cocoa [employer] Operator Name Role Phone DO Carin Brady Primary Care Provider [phone] MD Jan Solares Attending Provider BECK, DR MONTOYA Admitting Unavailable HALADAY, DR [...] Care Unavailable HALADAY, DR MONTOYA Consulting Unavailable Boone Ewing MD Primary Care Provider [phone] MD Boone Ewing Attending Provider [phone] SHAIKH RAMIREZ Attending Unavailable SHAIKH RAMIREZ Attending Unavailable NADERELiza, BOONE Attending Unavailable NADERER, BOONE Attending Unavailable NADERER, BOONE Attending Unavailable NADERER, BOONE Attending Unavailable NADERER, BOONE Attending Unavailable Naderer Boone WALSH Primary Care Provider [phone] Boone Ewing MD Primary Care Provider Boone Ewing MD Primary Care Provider JAN SOLARES Referring Unavailable NADERER, BOONE Primary Care Unavailable JAN SMITH Attending Unavailable NADERER, BOONE Referring Unavailable NADERER, BOONE Primary Care Unavailable JAN SOLARES Referring Unavailable NADERER, BOONE Primary Care Unavailable KHALIF, TOPHER N Attending Unavailable NADERER, BOONE Referring Unavailable NADERER, BOONE Primary Care Unavailable KHALIF, TOPHER N Referring Unavailable NADERER, BOONE Primary Care Unavailable NADERER, BOONE Referring Unavailable NADERER, BOONE Primary Care Unavailable JAN SOLARES Referring Unavailable NADERER, BOONE Primary Care Unavailable NADERER, BOONE Referring Unavailable NADERER, BOONE Primary Care Unavailable NADERER, BOONE Referring Unavailable NADERER, BOONE Primary Care Unavailable KHALIF, TOPHER N Referring Unavailable NADERER, BOONE Primary Care Unavailable NADERER, BOONE Referring Unavailable NADERER, BOONE Primary Care Unavailable KHALIF, TOPHER N Attending Unavailable NADERER, BOONE Referring Unavailable NADERER, BOONE Primary Care Unavailable KHALIF, OBANDO N Referring Unavailable NADERER, BOONE Primary Care Unavailable NADERER, BOONE Referring Unavailable NADERER, BOONE Primary Care Unavailable JAN SOLARES Referring Unavailable NADERER, BOONE Primary Care Unavailable KHALIF, OBANDO N Referring Unavailable NADERER, BOONE Primary Care Unavailable NADERER, BOONE Referring Unavailable NADERER, BOONE Primary Care Unavailable Naderer, Boone Attending Unavailable Naderer, Boone Admitting Unavailable Naderer, Boone Primary Care Unavailable Jan Solares Admitting Unavailable Beck, Jan Attending Unavailable Allergies Allergy Classification Reported Allergen(s) Allergy Type Date of Onset Reaction(s) Facility (12 sources) Amoxicillin; Translations: [AMOXICILLIN] Drug Allergy 04-10-2023 Diarrhea [facility] Medications Current Medications Medication Drug Class(es) Dates Sig (Normalized) Sig (Original) 8 hr acetaminophen 650 mg extended release oral tablet (7 sources) take 1 tablet by mouth every eight hours as needed for pain acetaminophen (TYLENOL ARTHRITIS) 650 mg 8 hr tablet Take 1 tablet (650 mg total) by mouth every 8 (eight) hours as needed for pain. Active alendronic acid 70 mg oral tablet (17 sources) Bisphosphonate Start: 10-15-2017 End: 02-11-2024 take 1 tablet by mouth every week alendronate (Fosamax) 70 MG tablet Indications: Age-related osteoporosis without current pathological fracture (CMS/HCC) TAKE 1 TABLET BY MOUTH ONCE WEEKLY DIRECTED 12 tablet 3 02/11/2024 Active amLODIPine 5 mg oral tablet (12 sources) Dihydropyridine Calcium Channel Ramiro Start: 12-18-2018 take 1 tablet by mouth once daily amLODIPine (Norvasc) 5 MG tablet Indications: Essential (primary) hypertension (CMS/HCC) TAKE 1 TABLET BY MOUTH EVERY DAY 90 tablet 3 02/29/2024 Active aspirin 81 mg delayed release oral tablet (12 sources) Platelet Aggregation Inhibitor, Nonsteroidal Anti-inflammatory Drug take 1 tablet by mouth in the morning aspirin 81 MG EC tablet Take 81 mg by mouth in the morning. Active atenolol 25 mg oral tablet (4 sources) beta-Adrenergic Ramiro Start: 10-15-2017 take 1 tablet by mouth once daily Atenolol Active 1 TAB PO Daily October 15, 2017 12:00am atorvastatin 80 mg oral tablet (12 sources) HMG-CoA Reductase Inhibitor Start: 12-18-2018 take 1 tablet by mouth once daily at bedtime atorvastatin (Lipitor) 80 MG tablet Indications: Mixed hyperlipidemia (CMS/HCC) TAKE 1 TABLET BY MOUTH EVERYDAY AT BEDTIME 90 tablet 3 02/29/2024 Active calcium carbonate 1250 mg / cholecalciferol 200 unt oral tablet (8 sources) Vitamin D take 1 tablet by mouth once in the morning calcium carbonate-vitamin D3 (OSCAL 500 + D) 500 mg(1,250mg) -200 units per tablet Take 1 tablet by mouth in the morning. Active take 1 tablet by mouth once javid y calcium carbonate-vitamin D3 (OSCAL 500 + D) 500 mg(1,250mg) -200 units per tablet Take 1 tablet by mouth daily. 0 Active cholecalciferol 0.025 mg oral tablet (7 sources) Vitamin D take 1 tablet by mouth in the morning cholecalciferol 1,000 units tablet Take 1 tablet (1,000 Units total) by mouth in the morning. Active ciprofloxacin 500 mg oral tablet (6 sources) Quinolone Antimicrobial take 1 tablet by mouth in the morning, then take 1 tablet by mouth at bedtime ciprofloxacin HCl (CIPRO) 500 mg tablet Take 1 tablet (500 mg total) by mouth in the morning and 1 tablet (500 mg total) before bedtime. Active cranberry preparation 250 mg oral capsule (11 sources) Non-Standardized Food Allergenic Extract, Non-Standardized Plant Allergenic Extract Cranberry 250 MG capsule Take by mouth Active take 1 capsule by mouth twice da elva cranberry 500 mg capsule Take by mouth 2 (two) times a day. Active take 1 capsule by mouth twice da elva cranberry 500 mg capsule Take by mouth 2 (two) times a day. 0 Active famotidine 20 mg oral tablet (12 sources) Histamine-2 Receptor Antagonist Start: 01-25-2017 famotidine (PEPCID) 20 mg tablet Take 1 tablet (20 mg total) by mouth as needed. 3 01/25/2017 Active folic acid 1 mg oral tablet (4 sources) Start: 10-15-2017 take 1 tablet by mouth once daily Folic Acid Active 1 TAB PO Daily October 15, 2017 12:00am hydroCHLOROthiazide 50 mg oral tablet (4 sources) Thiazide Diuretic Start: 10-15-2017 take 1 tablet by mouth once daily Hydrochlorothiazide Active 1 TAB PO Daily October 15, 2017 12:00am leflunomide 20 mg oral tablet (11 sources) Antirheumatic Agent take 1 tablet by mouth in the morning leflunomide (Arava) 20 MG tablet Take 20 mg by mouth in the morning. Active letrozole 2.5 mg oral tablet (8 sources) Aromatase Inhibitor Start: 11-18-2023 End: 11-12-2024 take 1 tablet by mouth once daily letrozole (FEMARA) 2.5 mg chemo tablet Indications: Right breast cancer with T3 tumor, >5 cm in greatest dimension (CMS-HCC) Take 1 tablet by mouth daily 90 tablet 3 11/18/2023 11/12/2024 Active levothyroxine sodium 0.025 mg oral tablet (16 sources) l-Thyroxine Start: 10-15-2017 take 1 tablet by mouth once daily Levothyroxine Active 1 TAB PO Daily October 15, 2017 12:00am Start: 01-25-2017 take 1 tablet by gen[place] th once daily levothyroxine (Synthroid, Levoxyl) 25 MCG tablet Indications: Hypothyroidism (CMS/HCC) , Hypothyroidism, unspecified (CMS/HCC) TAKE 1 TABLET BY MOUTH EVERY DAY 90 tablet 3 02/11/2024 Active methotrexate 2.5 mg oral tablet (8 sources) Folate Analog Metabolic Inhibitor Start: 06-02-2019 Methotrexate Sodium Active TABLET June 02, 2019 1:00am Start: 10-15-2017 End: 06-02-2019 take 1 tablet by mouth once daily Methotrexate Sodium Discontinued 1 TAB PO Daily October 15, 2017 12:00am June 02, 2019 12:52pm 24 hr metoprolol succinate 100 mg extended release oral tablet (12 sources) beta-Adrenergic Ramiro Start: 12-14-2023 take 1 tablet by mouth once daily metoprolol succinate XL (Toprol-XL) 100 MG 24 hr tablet Indications: Essential (primary) hypertension (CMS/HCC) , Benign essential hypertension (CMS/HCC) TAKE 1 TABLET BY MOUTH EVERY DAY 90 tablet 1 12/14/2023 Active Start: 01-08-2022 take 1 tablet by geneva th every twenty-four hours in the morning metoprolol succinate XL (TOPROL XL) 100 mg 24 hr tablet TAKE 1 TABLET BY MOUTH IN THE MORNING. NEED APPT FOR ANY FURTHER REFILLS. 90 tablet 3 01/08/2022 Active Multiple Vitamin (multivitamin) tablet (4 sources) take 1 tablet by geneva th once daily Multiple Vitamin (multivitamin) tablet Take 1 tablet by mouth Daily Active orlqeguh-yzbz-WQ-calcium &mi ns (THERAGRAN-M) 9 mg iron-400 mcg tablet (7 sources) nytbosex-zgry-ZI -calcium &mins (THERAGRAN-M) 9 mg iron-400 mcg tablet Take 1 tablet by mouth in the morning. Active ppeezxns-tnyc-KE -calcium &mins (THERAGRAN-M) 9 mg iron-400 mcg tablet Take 1 tablet by mouth in the morning. 0 Active ondansetron 8 mg oral tablet (6 sources) Serotonin-3 Receptor Antagonist Start: 01-20-2024 take 1 tablet by mouth every eight hours as needed for nausea and vomiting ondansetron (ZOFRAN) 8 mg tablet Take 1 tablet (8 mg total) by mouth every 8 (eight) hours as needed for nausea or vomiting. 30 tablet 2 01/20/2024 Active 24 hr oxybutynin chloride 10 mg extended release oral tablet (11 sources) Cholinergic Muscarinic Antagonist Start: 06-26-2023 take 1 tablet by mouth once daily oxybutynin XL (Ditropan-XL) 10 MG 24 hr tablet Indications: Overactive bladder Take 1 tablet (10 mg) by mouth Daily Do not crush, chew, or split. 90 tablet 3 06/26/2023 Active Start: 04-10-2023 take 1 tablet by geneva th every twenty-four hours in the morning oxybutynin XL (DITROPAN-XL) 10 mg 24 hr tablet Take 1 tablet (10 mg total) by mouth in the morning. 04/10/2023 Active microencapsulated potassium chloride 20 meq extended release oral tablet (4 sources) Start: 10-15-2017 take 1 tablet by mouth once daily Potassium Chloride (Klor-Con M20) 20 mEq Tablet,Er Particles/Crystals Active 1 TAB PO Daily October 15, 2017 12:00am predniSONE 5 mg oral tablet (12 sources) Start: 10-15-2017 take 1 tablet by mouth once Prednisone Active 1 TAB PO every Thursday, Thursday, and Sunday October 15, 2017 12:00am Start: 10-15-2017 take 1 tablet by mouth once Pr ednisone Active 1 TAB PO every Thursday, , Thursday, and Sunday October 15, 2017 12:00am Start: 02-25-2017 End: 04-10-2023 predniSONE (DELTASONE) 5 [...] other day. Full dose , , Thu, Sun (2.5mg Thu, Thu, Thu) 0 04/10/2023 Discontinued (Therapy completed) Completed/Discontinued Medications Medication Drug Class(es) Dates Sig (Normalized) Sig (Original) diclofenac sodium 0.01 mg/mg topical gel (2 sources) Nonsteroidal Anti-inflammatory Drug End: 04-10-2023 diclofenac sodium (VOLTAREN) 1 % gel Apply 2 g topically 3 (three) times a day as needed. 0 04/10/2023 Discontinued (Therapy completed) 10 ml hyaluronidase-zzx f 2000 unt/ml / pertuzumab-zzxf 60 mg/ml / trastuzumab-zzxf 60 mg/ml injection (3 sources) Endoglycosidase, HER2/noe Receptor Antagonist Start: 03-02-2024 End: 03-02-2024 inject 1 dose by subcutaneous injection once 10 mL, subcutaneous, Administer over 5 Minutes, Once, On Thu03/02/24 at 1100, For 1 dose, maintenance dose; observe for 15 min after injection Alternate L and R thigh at least 2.5cm from prior sites. Avoid red, bruised, tender, hard, scarred/moled skin. Observe 30 min after first and 15 min after subsequent doses Start: 02-10-2024 End: 02-10-2024 inject 1 dose by subcutaneous injection once 10 mL, subcutaneous, Administer over 5 Minutes, Once, On Thu02/10/24 at 1015, For 1 dose, maintenance dose; observe for 15 min after injection Alternate L and R thigh at least 2.5cm from prior sites. Avoid red, bruised, tender, hard, scarred/moled skin. Observe 30 min after first and 15 min after subsequent doses Start: 01-20-2024 End: 01-20-2024 inject 1 dose by subcutaneous injection once 10 mL, subcutaneous, Administer over 5 Minutes, Once, On Thu01/20/24 at 1100, For 1 dose, maintenance dose; observe for 15 min after injection Alternate L and R thigh at least 2.5cm from prior sites. Avoid red, bruised, tender, hard, scarred/moled skin. Observe 30 min after first and 15 min after subsequent doses mupirocin 0.02 mg/mg topical ointment (2 sources) RNA Synthetase Inhibitor Antibacterial Start: 09-20-2020 End: 04-10-2023 mupirocin (BACTROBAN) 2 % ointment Indications: Epistaxis Applied intranasally bilaterally 2 times daily 15 g 0 09/20/2020 04/10/2023 Discontinued (Therapy completed) sod sbefm-rqpcmp-vnct ez bottle (NEILMED SINUS RINSE COMPLETE) packet with rinse device nasal solution (2 sources) Start: 08-22-2020 End: 04-10-2023 take 1 dose nasal route twice daily sod ozpgm-njnvgz-wbfdov bottle (NEILMED SINUS RINSE COMPLETE) packet with rinse device nasal solution Administer 1 packet into each nostril 2 (two) times a day. 60 packet 0 08/22/2020 04/10/2023 Discontinued (Therapy completed) Start: 08-22-2020 take 1 dose nasal ro jordan twice daily sod hdhqi-fgtiiv-rzvbqt bottle (NEILMED SINUS RINSE COMPLETE) packet with rinse device nasal solution Administer 1 packet into each nostril 2 (two) times a day. 60 packet 0 08/22/2020 Active Problems Active Problems Problem Classification Problem Date Documented Da te Episodic/Chronic Cancer of breast (20 sources) HER2-positive carcinoma of breast; Translations: [Malignant neoplasm of unspecified site of right female breast] Onset: 11-11-2023 01-20-2024 Chronic Congestive heart failure; nonhypertensive (6 sources) Chronic heart failure co-occurrent with normal ejection fraction; Translations: [Chronic diastolic (congestive) heart failure] Onset: 01-29-2024 01-29-2024 Chronic Coronary atherosclerosis and other heart disease (20 sources) Coronary arteriosclerosis; Translations: [Atherosclerotic heart disease of [place] coronary artery without angina pectoris] Onset: 10-29-2018 Resolved: 10-21-2019 10-21-2019 Chronic Disorders of lipid metabolism (14 sources) Dyslipidemia; Translations: [Hyperlipidemia, unspecified] Onset: 10-21-2019 10-21-2019 Chronic Essential hypertension (8 sources) Essential hypertension; Translations: [Essential (primary) hypertension] Onset: 03-23-2023 04-10-2023 Chronic Osteoporosis (5 sources) Senile osteoporosis; Translations: [Age-related osteoporosis without current pathological fracture] Onset: 03-23-2023 02-11-2024 Chronic Other diseases of bladder and urethra (4 sources) Overactive bladder; Translations: [Overactive bladder] Onset: 03-23-2023 03-23-2023 Chronic Rheumatoid arthritis and related disease (16 sources) Rheumatoid arthritis, unspecified; Translations: [Rheumatoid arthritis without rheumatoid factor, multiple sites] Onset: 12-10-2021 Chronic Spondylosis; intervertebral disc disorders; other back problems (18 sources) Cervical spondylosis without myelopathy; Translations: [Spondylosis without myelopathy or radiculopathy, cervical region] Onset: 04-16-2017 06-15-2018 Chronic Thyroid disorders (4 sources) Hypothyroidism; Translations: [Hypothyroidism, unspecified] Onset: 03-23-2023 03-23-2023 Chronic Unclassified (1 source) 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; Translations: [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] Onset: 11-18-2023 Unclassified (1 source) Injection Onset: 12-09-2023 Past or Other Problems Problem Classification Problem Date Documented Da te Episodic/Chronic Administrative/social admission (4 sources) Patient care statuses; Translations: [Encounter for nonprocreative genetic counseling] Onset: 11-18-2023 11-18-2023 Episodic Coronary atherosclerosis and other heart disease (1 source) Presence of aortocoronary bypass graft; Translations: [Presence of aortocoronary bypass graft] Onset: 10-21-2019 Episodic Deficiency and other anemia (8 sources) Iron deficiency anemia; Translations: [Iron deficiency anemia, unspecified] Onset: 11-26-2018 11-26-2018 Episodic Deficiency and other anemia (4 sources) Iron deficiency anemia secondary to inadequate dietary iron intake; Translations: [Other iron deficiency anemias] Onset: 03-23-2023 03-23-2023 Episodic Diabetes mellitus without complication (4 sources) Prediabetes; Translations: [Prediabetes] Onset: 03-23-2023 09-22-2023 Episodic Genitourinary symptoms and ill-defined conditions (8 sources) Dysuria; Translations: [Urinary symptoms ] Onset: 03-25-2022 Resolved: 09-22-2023 Episodic Mood disorders (8 sources) Mood disorders Onset: 01-07-2021 01-07-2021 Nonspecific chest pain (8 sources) Chest pain; Translations: [Other chest pain] Onset: 10-29-2018 Resolved: 10-21-2019 10-21-2019 Episodic Other aftercare (2 sources) Other detention (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; Translations: [OTH JAIL CURRENT DRUG THERAPY] Onset: 01-20-2022 Episodic Other aftercare (5 sources) Long-term current use of drug therapy; Translations: [Encounter for therapeutic drug level monitoring] Onset: 09-22-2023 01-20-2024 Episodic Other aftercare (1 source) Encounter for therapeutic drug level monitoring; Translations: [Encounter for therapeutic drug level monitoring] Onset: 12-01-2023 Episodic Other lower respiratory disease (8 sources) Dyspnea; Translations: [Shortness of breath] Onset: 10-29-2018 Resolved: 10-21-2019 10-21-2019 Episodic Other screening for suspected conditions (not mental disorders or infectious disease) (20 sources) Abnormal results of liver function studies; Translations: [Cardiovascular stress test abnormal] Onset: 10-29-2018 Resolved: 10-21-2019 10-21-2019 Episodic Other upper respiratory disease (8 sources) Bleeding from nose; Translations: [Epistaxis] Onset: 08-01-2020 08-01-2020 Episodic Respiratory failure; insufficiency; arrest (adult) (8 sources) Dependence on respirator; Translations: [Dependence on respirator [ventilator] status] Onset: 06-02-2019 Resolved: 10-21-2019 10-21-2019 Chronic Unclassified (1 source) Long-term current use of drug therapy 01-20-2024 Urinary tract infections (4 sources) Acute cystitis; Translations: [Acute cystitis with hematuria] Onset: 07-23-2023 Resolved: 09-22-2023 09-22-2023 Episodic Results Test Name Value Interpretation Reference Range Facility C-Reactive Proteinon 024 CRP [Mass/Vol] mg/L Normal 0.0-0.5 [facility] Comment on above: Result Comment: PERF ORMED BY: [place] [address] PATHOLOGIST MUTUAL FUND ANALYST AUSTIN PRETTY M.D. Performed By: #### C UU, CRP, ESR, ADDONUAPLUS #### [address] #### C4, C3 #### [facility] , Complement C3on 03-16-2024 Complement C3 139 mg/dL Normal 82-167 [facility] Comment on above: Result Comment: Perf ormed at: - [facility] [address] [id number] Sweat Band Separator: Guanaco Cui PhD, Phone: [phone] Performed By: #### C UU, CRP, ESR, ADDONUAPLUS #### [facility] [address] [place] [address] #### C4, C3 #### [facility] , Complement C4on 03-16-2024 Complement C4 38 mg/dL Normal 12-38 [facility] Comment on above: Result Comment: PERF ORMED BY: [place] [address] PATHOLOGIST MUTUAL FUND ANALYST AUSTIN PRETTY M.D. Performed By: #### C UU, CRP, ESR, ADDONUAPLUS #### [address] #### C4, C3 #### [facility] , Dipstick and Microscopicon 1 05-17-2023 Appearance (U) Cloudy Critically abnormal Clear [facility] Comment on above: Order Comment: Name Collection Type:: Clean-Voided Midstream Performed By: #### C UU, CRP, ESR, ADDONUAPLUS #### [address] #### C4, C3 #### [facility] , Bacteria,Urine 3+ High None Seen [facility] Comment on above: Order Comment: Name Collection Type:: Clean-Voided Midstream Performed By: #### C UU, CRP, ESR, ADDONUAPLUS #### [address] #### C4, C3 #### [facility] , Bilirubin,Urine Negative Normal Negative [facility] Comment on above: Order Comment: Name Collection Type:: Clean-Voided Midstream Performed By: #### C UU, CRP, ESR, ADDONUAPLUS #### [address] #### C4, C3 #### [facility] , Calcium Oxalate Crystals,Urine 3+ Normal [facility] Comment on above: Order Comment: Name Collection Type:: Clean-Voided Midstream Performed By: #### C UU, CRP, ESR, ADDONUAPLUS #### [address] #### C4, C3 #### [facility] , Color (U) Yellow Normal Yellow [facility] Comment on above: Order Comment: Name Collection Type:: Clean-Voided Midstream Performed By: #### C UU, CRP, ESR, ADDONUAPLUS #### [address] #### C4, C3 #### [facility] , Glucose Ql (U) Normal Normal Normal [facility] Comment on above: Order Comment: Name Collection Type:: Clean-Voided Midstream Performed By: #### C UU, CRP, ESR, ADDONUAPLUS #### [address] #### C4, C3 #### [facility] , Hyaline Casts,Urine 9 [LPF] High 0-8 [facility] Comment on above: Order Comment: Name Collection Type:: Clean-Voided Midstream Performed By: #### C UU, CRP, ESR, ADDONUAPLUS #### [address] #### C4, C3 #### [facility] , Ketones Ql (U) Negative Normal Negative [facility] Comment on above: Order Comment: Name Collection Type:: Clean-Voided Midstream Performed By: #### C UU, CRP, ESR, ADDONUAPLUS #### [address] #### C4, C3 #### [facility] , Leukocyte esterase Test strip Ql (U) 4+ High Negative [facility] Comment on above: Order Comment: Name Collection Type:: Clean-Voided Midstream Performed By: #### C UU, CRP, ESR, ADDONUAPLUS #### [address] #### C4, C3 #### [facility] , Mucus,Urine 2+ Critically abnormal [facility] Comment on above: Order Comment: Name Collection Type:: Clean-Voided Midstream Result Comment: PERF ORMED BY: [place] [address] PATHOLOGIST MUTUAL FUND ANALYST AUSTIN PRETTY M.D. Performed By: #### C UU, CRP, ESR, ADDONUAPLUS #### [address] #### C4, C3 #### [facility] , Nitrite,Urine Negative Normal Negative [facility] Comment on above: Order Comment: Name Collection Type:: Clean-Voided Midstream Performed By: #### C UU, CRP, ESR, ADDONUAPLUS #### [address] #### C4, C3 #### [facility] , Non-Squamous Epithelial Cell,U 1 [HPF] High None Seen [facility] Comment on above: Order Comment: Name Collection Type:: Clean-Voided Midstream Performed By: #### C UU, CRP, ESR, ADDONUAPLUS #### [address] #### C4, C3 #### [facility] , Occult Blood,Urine Negative Normal Negative [facility] Comment on above: Order Comment: Name Collection Type:: Clean-Voided Midstream Performed By: #### C UU, CRP, ESR, ADDONUAPLUS #### [address] #### C4, C3 #### [facility] , pH (U) 5.5 [pH] Normal 5.0-9.0 [facility] Comment on above: Order Comment: Name Collection Type:: Clean-Voided Midstream Performed By: #### C UU, CRP, ESR, ADDONUAPLUS #### [address] #### C4, C3 #### [facility] , Protein (U) [Mass/Vol] 20 mg/dL High Negative [facility] Comment on above: Order Comment: Name Collection Type:: Clean-Voided Midstream Performed By: #### C UU, CRP, ESR, ADDONUAPLUS #### [address] #### C4, C3 #### [facility] , RBC,Urine 5 [HPF] High 0-4 [facility] Comment on above: Order Comment: Name Collection Type:: Clean-Voided Midstream Performed By: #### C UU, CRP, ESR, ADDONUAPLUS #### [address] #### C4, C3 #### [facility] , Specificy [place],Urine 1.023 Normal 1.001-1.030 [facility] Comment on above: Order Comment: Name Collection Type:: Clean-Voided Midstream Performed By: #### C UU, CRP, ESR, ADDONUAPLUS #### [address] #### C4, C3 #### [facility] , Squamous Epithelial Cell,Urine 1 [HPF] Normal 0-2 [facility] Comment on above: Order Comment: Name Collection Type:: Clean-Voided Midstream Performed By: #### C UU, CRP, ESR, ADDONUAPLUS #### [address] #### C4, C3 #### [facility] , Urobilinogen,Urine Normal Normal Normal [facility] Comment on above: Order Comment: Name Collection Type:: Clean-Voided Midstream Performed By: #### C UU, CRP, ESR, ADDONUAPLUS #### [address] #### C4, C3 #### [facility] , WBC CLUMP, Urine Many High None Seen [facility] Comment on above: Order Comment: Name Collection Type:: Clean-Voided Midstream Performed By: #### C UU, CRP, ESR, ADDONUAPLUS #### [address] #### C4, C3 #### [facility] , WBC,Urine Innumerable High 0-4 [facility] Comment on above: Order Comment: Name Collection Type:: Clean-Voided Midstream Performed By: #### C UU, CRP, ESR, ADDONUAPLUS #### [address] #### C4, C3 #### [facility] , Erythrocyte Sedimentation Ra sarah 03-16-2024 ESR (Bld) [Velocity] 15 mm/h Normal 0-29 [facility] Comment on above: Result Comment: PERF ORMED BY: [place] [address] PATHOLOGIST MUTUAL FUND ANALYST AUSTIN PRETTY M.D. Performed By: #### C UU, CRP, ESR, ADDONUAPLUS #### [address] #### C4, C3 #### [facility] , Urine Cultureon 03-16-2024 Bacteria identified Cx Nom (U) Urine Culture Results >100,000 col/ml Mixed Bacterial Skin Contaminants 2 Days PERFORMED BY: [place] [address] PATHOLOGIST MUTUAL FUND ANALYST AUSTIN PRETTY M.D. Normal [facility] Comment on above: Performed By: #### C UU, CRP, ESR, ADDONUAPLUS #### [place] [address] [place] #### C4, C3 #### [facility] , CBC AND AUTO DIFFon 03-01-20 ABSOLUTE BASOPHIL 0.1 X10E9/L Normal 0.0-0.2 [facility] Comment on above: Performed By: #### 8 2477-1, CBCA, LIVR, ORACLE EBS CONSULTANT #### [facility] ([id number]) [address], [address] [place] [address] ABSOLUTE NEUTROPHIL 3.3 X10E9/L Normal 1.5-6.6 [facility] Comment on above: Performed By: #### 8 2477-1, CBCA, LIVR, ORACLE EBS CONSULTANT #### [facility] ([id number]) [address], [address] [place] [address] Basophils/100 WBC (Bld) 2.6 % Normal [facility] Comment on above: Performed By: #### 8 2477-1, CBCA, LIVR, ORACLE EBS CONSULTANT #### [facility] ([id number]) [address], [address] [place] [address] Eosinophils (Bld) [#/Vol] 0.2 10*3/uL Normal 0.0-0.4 [facility] Comment on above: Performed By: #### 8 2477-1, CBCA, LIVR, ORACLE EBS CONSULTANT #### [facility] ([id number]) [address], [address] [place] [address] Eosinophils/100 WBC (Bld) 4.1 % Normal [facility] Comment on above: Performed By: #### 8 2477-1, CBCA, LIVR, ORACLE EBS CONSULTANT #### [facility] ([id number]) [address], [address] [place] [address] Erythrocyte distribution width (RBC) [Ratio] 13.1 % Normal 11.5-15.0 [facility] Comment on above: Performed By: #### 8 2477-1, CBCA, LIVR, ORACLE EBS CONSULTANT #### [facility] ([id number]) [address] [address] [place] [address] Hematocrit (Bld) [Volume fraction] 40.4 % Normal 35-47 [facility] Comment on above: Performed By: #### 8 2477-1, CBCA, LIVR, ORACLE EBS CONSULTANT #### [facility] ([id number]) [address] [address] [place] [address] Hemoglobin (Bld) [Mass/Vol] 13.6 g/dL Normal 11.7-15.5 [facility] Comment on above: Performed By: #### 8 2477-1, CBCA, LIVR, ORACLE EBS CONSULTANT #### [facility] ([id number]) [address] [address] Lymphocytes (Bld) [#/Vol] 1.1 10*3/uL Normal 1.0-3.5 [facility] Comment on above: Performed By: #### 8 2477-1, CBCA, LIVR, ORACLE EBS CONSULTANT #### [facility] ([id number]) [address] [address] Lymphocytes/100 WBC (Bld) 20.1 % Normal [facility] Comment on above: Performed By: #### 8 2477-1, CBCA, LIVR, ORACLE EBS CONSULTANT #### [facility] ([id number]) [address] [address] [place] [address] MCH (RBC) [Entitic mass] 32.1 pg Normal 27-34 [facility] Comment on above: Performed By: #### 8 2477-1, CBCA, LIVR, ORACLE EBS CONSULTANT #### [facility] ([id number]) [address] [address] [place] [address] MCHC (RBC) [Mass/Vol] 33.6 g/dL Normal 32-36 [facility] Comment on above: Performed By: #### 8 2477-1, CBCA, LIVR, ORACLE EBS CONSULTANT #### [facility] ([id number]) [address], [address] [place] [address] MCV (RBC) [Entitic vol] 96 fL Normal 80-100 [facility] Comment on above: Performed By: #### 8 2477-1, CBCA, LIVR, ORACLE EBS CONSULTANT #### [facility] ([id number]) [address], [address] [place] [address] Monocytes (Bld) [#/Vol] 0.7 10*3/uL Normal 0-0.9 [facility] Comment on above: Performed By: #### 8 2477-1, CBCA, LIVR, ORACLE EBS CONSULTANT #### [facility] ([id number]) [address], [address] [place] [address] Monocytes/100 WBC (Bld) 12.4 % Normal [facility] Comment on above: Performed By: #### 8 2477-1, CBCA, LIVR, ORACLE EBS CONSULTANT #### [facility] ([id number]) [address], [address] [place] [address] Neutrophils/100 WBC (Bld) 60.8 % Normal [facility] Comment on above: Performed By: #### 8 2477-1, CBCA, LIVR, ORACLE EBS CONSULTANT #### [facility] ([id number]) [address], [address] [place] [address] Platelet mean volume (Bld) [Entitic vol] 9.8 fL Normal 7-12 [facility] Comment on above: Performed By: #### 8 2477-1, CBCA, LIVR, ORACLE EBS CONSULTANT #### [facility] ([id number]) [address], [address] [place] [address] Platelets (Bld) [#/Vol] 279 10*3/uL Normal 150-450 [facility] Comment on above: Performed By: #### 8 2477-1, CBCA, LIVR, ORACLE EBS CONSULTANT #### [facility] ([id number]) [address], [address] [place] [address] RBC COUNT 4.22 X10E12/L Normal 3.80-5.20 [facility] Comment on above: Performed By: #### 8 2477-1, CBCA, LIVR, ORACLE EBS CONSULTANT #### [facility] ([id number]) [address], [address] [place] [address] WBC (Bld) [#/Vol] 5.4 10*3/uL Normal 4.0-11.0 [facility] Comment on above: Performed By: #### 8 2477-1, CBCA, LIVR, ORACLE EBS CONSULTANT #### [facility] ([id number]) [address], [address] [place] [address] COMPREHENSIVE METABOLIC PANE Henry 03-01-2024 Albumin [Mass/Vol] 3.9 g/dL Normal 3.2-5.3 [facility] Comment on above: Performed By: #### 8 2477-1, CBCA, LIVR, ORACLE EBS CONSULTANT #### [facility] ([id number]) [address], [address] [place] [address] ALP [Catalytic activity/Vol] 84 U/L Normal 39-130 [facility] Comment on above: Performed By: #### 8 2477-1, CBCA, LIVR, ORACLE EBS CONSULTANT #### [facility] ([id number]) [address], [address] [place] [address] ALT [Catalytic activity/Vol] 20 U/L Normal 0-31 [facility] Comment on above: Performed By: #### 8 2477-1, CBCA, LIVR, ORACLE EBS CONSULTANT #### [facility] ([id number]) [address], [address] [place] [address] Anion gap [Moles/Vol] 11 mmol/L Normal 5-15 [facility] Comment on above: Performed By: #### 8 2477-1, CBCA, LIVR, ORACLE EBS CONSULTANT #### [facility] ([id number]) [address], [address] [place] [address] AST [Catalytic activity/Vol] 33 U/L Normal 0-41 [facility] Comment on above: Performed By: #### 8 2477-1, CBCA, LIVR, ORACLE EBS CONSULTANT #### [facility] ([id number]) [address], [address] [place] [address] Bilirubin [Mass/Vol] 0.5 mg/dL Normal 0.3-1.2 [facility] Comment on above: Performed By: #### 8 2477-1, CBCA, LIVR, ORACLE EBS CONSULTANT #### [facility] ([id number]) [address], [address] [place] [address] Calcium [Mass/Vol] 9.8 mg/dL Normal 8.5-10.5 [facility] Comment on above: Performed By: #### 8 2477-1, CBCA, LIVR, ORACLE EBS CONSULTANT #### [facility] ([id number]) [address] [place] [address] Chloride [Moles/Vol] 105 mmol/L Normal 98-109 [facility] Comment on above: Performed By: #### 8 2477-1, CBCA, LIVR, ORACLE EBS CONSULTANT #### [facility] ([id number]) [address], [address] [place] [address] CO2 [Moles/Vol] 27 mmol/L Normal 22-32 [facility] Comment on above: Performed By: #### 8 2477-1, CBCA, LIVR, ORACLE EBS CONSULTANT #### [facility] ([id number]) [address], [address] [place] [address] Creatinine [Mass/Vol] 0.88 mg/dL Normal 0.40-1.00 [facility] Comment on above: Result Comment: METH OD TRACEABLE TO IDMS STANDARD Performed By: #### 8 2477-1, CBCA, LIVR, ORACLE EBS CONSULTANT #### [facility] ([id number]) [address] [address] [place] [address] GFR/1.73 sq M.predicted among non-blacks MDRD (S/P/Bld) [Vol rate/Area] 65 mL/min/{1.73_m2} Normal >59 [facility] Comment on above: Result Comment: Reported eGFR is based on the CKD-EPI 2020 equation that does not use a race coefficient. Performed By: #### 8 2477-1, CBCA, LIVR, ORACLE EBS CONSULTANT #### [facility] ([id number]) [address] [place] [address] Glucose [Mass/Vol] 120 mg/dL High 65-99 [facility] Comment on above: Performed By: #### 8 2477-1, CBCA, LIVR, ORACLE EBS CONSULTANT #### [facility] ([id number]) [address] [address] [place] [address] Potassium [Moles/Vol] 3.5 mmol/L Normal 3.5-5.0 [facility] Comment on above: Performed By: #### 8 2477-1, CBCA, LIVR, ORACLE EBS CONSULTANT #### [facility] ([id number]) [address] [address] [place] [address] Protein [Mass/Vol] 6.6 g/dL Normal 6.0-8.0 [facility] Comment on above: Performed By: #### 8 2477-1, CBCA, LIVR, ORACLE EBS CONSULTANT #### [facility] ([id number]) [address] [address] [place] [address] Sodium [Moles/Vol] 143 mmol/L Normal 134-146 [facility] Comment on above: Performed By: #### 8 2477-1, CBCA, LIVR, ORACLE EBS CONSULTANT #### [facility] ([id number]) [address] [address] [place] [address] Urea nitrogen [Mass/Vol] 16 mg/dL Normal 5-27 [facility] Comment on above: Performed By: #### 8 2477-1, CBCA, LIVR, ORACLE EBS CONSULTANT #### [facility] ([id number]) [address] [address] [place] [address] CBC AND AUTO DIFFon 02-09-20 24 ABSOLUTE BASOPHIL 0.1 X10E9/L Normal 0.0-0.2 [facility] Comment on above: Performed By: #### 8 2477-1, CBCA, LIVR, ORACLE EBS CONSULTANT #### [facility] ([id number]) [address] [address] ABSOLUTE NEUTROPHIL 4.7 X10E9/L Normal 1.5-6.6 [facility] Comment on above: Performed By: #### 8 2477-1, CBCA, LIVR, ORACLE EBS CONSULTANT #### [facility] ([id number]) [address] [address] Basophils/100 WBC (Bld) 1.3 % Normal [facility] Comment on above: Performed By: #### 8 2477-1, CBCA, LIVR, ORACLE EBS CONSULTANT #### [facility] ([id number]) [address] [address] [place] [address] Eosinophils (Bld) [#/Vol] 0.4 10*3/uL Normal 0.0-0.4 [facility] Comment on above: Performed By: #### 8 2477-1, CBCA, LIVR, ORACLE EBS CONSULTANT #### [facility] ([id number]) [address] [address] Eosinophils/100 WBC (Bld) 5.4 % Normal [facility] Comment on above: Performed By: #### 8 2477-1, CBCA, LIVR, ORACLE EBS CONSULTANT #### [facility] ([id number]) [address] [address] [place] [address] Erythrocyte distribution width (RBC) [Ratio] 13.3 % Normal 11.5-15.0 [facility] Comment on above: Performed By: #### 8 2477-1, CBCA, LIVR, ORACLE EBS CONSULTANT #### [facility] ([id number]) [address] [address] [place] [address] Hematocrit (Bld) [Volume fraction] 39.1 % Normal 35-47 [facility] Comment on above: Performed By: #### 8 2477-1, CBCA, LIVR, ORACLE EBS CONSULTANT #### [facility] ([id number]) [address] [address] [place] [address] Hemoglobin (Bld) [Mass/Vol] 13.1 g/dL Normal 11.7-15.5 [facility] Comment on above: Performed By: #### 8 2477-1, CBCA, LIVR, ORACLE EBS CONSULTANT #### [facility] ([id number]) [address] [address] [place] [address] Lymphocytes (Bld) [#/Vol] 1.2 10*3/uL Normal 1.0-3.5 [facility] Comment on above: Performed By: #### 8 2477-1, CBCA, LIVR, ORACLE EBS CONSULTANT #### [facility] ([id number]) [address] [address] [place] [address] Lymphocytes/100 WBC (Bld) 16.5 % Normal [facility] Comment on above: Performed By: #### 8 2477-1, CBCA, LIVR, ORACLE EBS CONSULTANT #### [facility] ([id number]) [address] [address] [place] [address] MCH (RBC) [Entitic mass] 32.1 pg Normal 27-34 [facility] Comment on above: Performed By: #### 8 2477-1, CBCA, LIVR, ORACLE EBS CONSULTANT #### [facility] ([id number]) [address] [place] [address] MCHC (RBC) [Mass/Vol] 33.4 g/dL Normal 32-36 [facility] Comment on above: Performed By: #### 8 2477-1, CBCA, LIVR, ORACLE EBS CONSULTANT #### [facility] ([id number]) [address] [address] [place] [address] MCV (RBC) [Entitic vol] 96 fL Normal 80-100 [facility] Comment on above: Performed By: #### 8 2477-1, CBCA, LIVR, ORACLE EBS CONSULTANT #### [facility] ([id number]) [address] [address] [place] [address] Monocytes (Bld) [#/Vol] 0.7 10*3/uL Normal 0-0.9 [facility] Comment on above: Performed By: #### 8 2477-1, CBCA, LIVR, ORACLE EBS CONSULTANT #### [facility] ([id number]) [address] [address] [place] [address] Monocytes/100 WBC (Bld) 10.3 % Normal [facility] Comment on above: Performed By: #### 8 2477-1, CBCA, LIVR, ORACLE EBS CONSULTANT #### [facility] ([id number]) [address], [facility] [address] [place] [address] Neutrophils/100 WBC (Bld) 66.5 % Normal [facility] Comment on above: Performed By: #### 8 2477-1, CBCA, LIVR, ORACLE EBS CONSULTANT #### [facility] ([id number]) [address] [address] [place] [address] Platelet mean volume (Bld) [Entitic vol] 9.3 fL Normal 7-12 [facility] Comment on above: Performed By: #### 8 2477-1, CBCA, LIVR, ORACLE EBS CONSULTANT #### [facility] ([id number]) [address] [place] [address] Platelets (Bld) [#/Vol] 253 10*3/uL Normal 150-450 [facility] Comment on above: Performed By: #### 8 2477-1, CBCA, LIVR, ORACLE EBS CONSULTANT #### [facility] ([id number]) [address], [facility] [address] [place] [address] RBC COUNT 4.07 X10E12/L Normal 3.80-5.20 [facility] Comment on above: Performed By: #### 8 2477-1, CBCA, LIVR, ORACLE EBS CONSULTANT #### [facility] ([id number]) [address], [facility] [address] [place] [address] WBC (Bld) [#/Vol] 7.1 10*3/uL Normal 4.0-11.0 [facility] Comment on above: Performed By: #### 8 2477-1, CBCA, LIVR, ORACLE EBS CONSULTANT #### [facility] ([id number]) [address] [place] [address] COMPREHENSIVE METABOLIC PANE Henry 02-09-2024 Albumin [Mass/Vol] 3.7 g/dL Normal 3.2-5.3 [facility] Comment on above: Performed By: #### 8 2477-1, CBCA, LIVR, ORACLE EBS CONSULTANT #### [facility] ([id number]) [address] [place] [address] ALP [Catalytic activity/Vol] 77 U/L Normal 39-130 [facility] Comment on above: Performed By: #### 8 2477-1, CBCA, LIVR, ORACLE EBS CONSULTANT #### [facility] ([id number]) [address] [place] [address] ALT [Catalytic activity/Vol] 17 U/L Normal 0-31 [facility] Comment on above: Performed By: #### 8 2477-1, CBCA, LIVR, ORACLE EBS CONSULTANT #### [facility] ([id number]) [address] [place] [address] Anion gap [Moles/Vol] 12 mmol/L Normal 5-15 [facility] Comment on above: Performed By: #### 8 2477-1, CBCA, LIVR, ORACLE EBS CONSULTANT #### [facility] ([id number]) [address] [place] [address] AST [Catalytic activity/Vol] 32 U/L Normal 0-41 [facility] Comment on above: Performed By: #### 8 2477-1, CBCA, LIVR, ORACLE EBS CONSULTANT #### [facility] ([id number]) [address] [place] [address] Bilirubin [Mass/Vol] 0.4 mg/dL Normal 0.3-1.2 [facility] Comment on above: Performed By: #### 8 2477-1, CBCA, LIVR, ORACLE EBS CONSULTANT #### [facility] ([id number]) [address] [place] [address] Calcium [Mass/Vol] 9.4 mg/dL Normal 8.5-10.5 [facility] Comment on above: Performed By: #### 8 2477-1, CBCA, LIVR, ORACLE EBS CONSULTANT #### [facility] ([id number]) [address] [place] [address] Chloride [Moles/Vol] 107 mmol/L Normal 98-109 [facility] Comment on above: Performed By: #### 8 2477-1, CBCA, LIVR, ORACLE EBS CONSULTANT #### [facility] ([id number]) [address] [place] [address] CO2 [Moles/Vol] 23 mmol/L Normal 22-32 [facility] Comment on above: Performed By: #### 8 2477-1, CBCA, LIVR, ORACLE EBS CONSULTANT #### [facility] ([id number]) [address] [place] [address] Creatinine [Mass/Vol] 0.83 mg/dL Normal 0.40-1.00 [facility] Comment on above: Result Comment: METH OD TRACEABLE TO IDMS STANDARD Performed By: #### 8 2477-1, CBCA, LIVR, ORACLE EBS CONSULTANT #### [facility] ([id number]) [address] [place] [address] GFR/1.73 sq M.predicted among non-blacks MDRD (S/P/Bld) [Vol rate/Area] 70 mL/min/{1.73_m2} Normal >59 [facility] Comment on above: Result Comment: Reported eGFR is based on the CKD-EPI 2020 equation that does not use a race coefficient. Performed By: #### 8 2477-1, CBCA, LIVR, ORACLE EBS CONSULTANT #### [facility] ([id number]) [address] [place] [address] Glucose [Mass/Vol] 101 mg/dL High 65-99 [facility] Comment on above: Performed By: #### 8 2477-1, CBCA, LIVR, ORACLE EBS CONSULTANT #### [facility] ([id number]) [address] [address] [place] [address] Potassium [Moles/Vol] 3.9 mmol/L Normal 3.5-5.0 [facility] Comment on above: Performed By: #### 8 2477-1, CBCA, LIVR, ORACLE EBS CONSULTANT #### [facility] ([id number]) [address] [address] [place] [address] Protein [Mass/Vol] 6.2 g/dL Normal 6.0-8.0 [facility] Comment on above: Performed By: #### 8 2477-1, CBCA, LIVR, ORACLE EBS CONSULTANT #### [facility] ([id number]) [address] [place] [address] Sodium [Moles/Vol] 142 mmol/L Normal 134-146 [facility] Comment on above: Performed By: #### 8 2477-1, CBCA, LIVR, ORACLE EBS CONSULTANT #### [facility] ([id number]) [address] [place] [address] Urea nitrogen [Mass/Vol] 15 mg/dL Normal 5-27 [facility] Comment on above: Performed By: #### 8 2477-1, CBCA, LIVR, ORACLE EBS CONSULTANT #### [facility] ([id number]) [address], [facility] [address] [place] [address] ESR Photometric method (Bld) [Velocity]on 02-09-2024 ESR, ERYTHROCYTE SEDIMENTATION RATE 11 mm/h Normal 0-30 [facility] Comment on above: Performed By: #### 8 2477-1, CBCA, LIVR, ORACLE EBS CONSULTANT #### [facility] ([id number]) [address], [address] [place] [address] LIVER PANELon 02-09-2024 Bilirubin.direct [Mass/Vol] 0.1 mg/dL Normal 0.0-0.4 [facility] Comment on above: Performed By: #### 8 2477-1, CBCA, LIVR, ORACLE EBS CONSULTANT #### [facility] ([id number]) [address], [facility] [address] [place] [address] CBC AND AUTO DIFFon 10-15-20 24 ABSOLUTE BASOPHIL 0.1 X10E9/L Normal 0.0-0.2 [facility] Comment on above: Performed By: #### 8 2477-1, CBCA, LIVR, ORACLE EBS CONSULTANT #### [facility] ([id number]) [address], [facility] [address] [place] [address] ABSOLUTE NEUTROPHIL 3.7 X10E9/L Normal 1.5-6.6 [facility] Comment on above: Performed By: #### 8 2477-1, CBCA, LIVR, ORACLE EBS CONSULTANT #### [facility] ([id number]) [address], [facility] [address] [place] [address] Basophils/100 WBC (Bld) 2.2 % Normal [facility] Comment on above: Performed By: #### 8 2477-1, CBCA, LIVR, ORACLE EBS CONSULTANT #### [facility] ([id number]) [address], [facility] [address] [place] [address] Eosinophils (Bld) [#/Vol] 0.6 10*3/uL High 0.0-0.4 [facility] Comment on above: Performed By: #### 8 2477-1, CBCA, LIVR, ORACLE EBS CONSULTANT #### [facility] ([id number]) [address] [address] [place] [address] Eosinophils/100 WBC (Bld) 10.1 % Normal [facility] Comment on above: Performed By: #### 8 2477-1, CBCA, LIVR, ORACLE EBS CONSULTANT #### [facility] ([id number]) [address] [address] [place] [address] Erythrocyte distribution width (RBC) [Ratio] 13.5 % Normal 11.5-15.0 [facility] Comment on above: Performed By: #### 8 2477-1, CBCA, LIVR, ORACLE EBS CONSULTANT #### [facility] ([id number]) [address] [address] [place] [address] Hematocrit (Bld) [Volume fraction] 38.7 % Normal 35-47 [facility] Comment on above: Performed By: #### 8 2477-1, CBCA, LIVR, ORACLE EBS CONSULTANT #### [facility] ([id number]) [address] [address] [place] [address] Hemoglobin (Bld) [Mass/Vol] 13.3 g/dL Normal 11.7-15.5 [facility] Comment on above: Performed By: #### 8 2477-1, CBCA, LIVR, ORACLE EBS CONSULTANT #### [facility] ([id number]) [address] [place] [address] Lymphocytes (Bld) [#/Vol] 1.1 10*3/uL Normal 1.0-3.5 [facility] Comment on above: Performed By: #### 8 2477-1, CBCA, LIVR, ORACLE EBS CONSULTANT #### [facility] ([id number]) [address], [facility] [address] [place] [address] Lymphocytes/100 WBC (Bld) 17.8 % Normal [facility] Comment on above: Performed By: #### 8 2477-1, CBCA, LIVR, ORACLE EBS CONSULTANT #### [facility] ([id number]) [address], [facility] [address] [place] [address] MCH (RBC) [Entitic mass] 32.8 pg Normal 27-34 [facility] Comment on above: Performed By: #### 8 2477-1, CBCA, LIVR, ORACLE EBS CONSULTANT #### [facility] ([id number]) [address], [facility] [address] [place] [address] MCHC (RBC) [Mass/Vol] 34.3 g/dL Normal 32-36 [facility] Comment on above: Performed By: #### 8 2477-1, CBCA, LIVR, ORACLE EBS CONSULTANT #### [facility] ([id number]) [address], [facility] [address] [place] [address] MCV (RBC) [Entitic vol] 96 fL Normal 80-100 [facility] Comment on above: Performed By: #### 8 2477-1, CBCA, LIVR, ORACLE EBS CONSULTANT #### [facility] ([id number]) [address], [facility] [address] [place] [address] Monocytes (Bld) [#/Vol] 0.7 10*3/uL Normal 0-0.9 [facility] Comment on above: Performed By: #### 8 2477-1, CBCA, LIVR, ORACLE EBS CONSULTANT #### [facility] ([id number]) [address], [facility] [address] [place] [address] Monocytes/100 WBC (Bld) 11.0 % Normal [facility] Comment on above: Performed By: #### 8 2477-1, CBCA, LIVR, ORACLE EBS CONSULTANT #### [facility] ([id number]) [address], [facility] [address] [place] [address] Neutrophils/100 WBC (Bld) 58.9 % Normal [facility] Comment on above: Performed By: #### 8 2477-1, CBCA, LIVR, ORACLE EBS CONSULTANT #### [facility] ([id number]) [address], [facility] [address] [place] [address] Platelet mean volume (Bld) [Entitic vol] 9.7 fL Normal 7-12 [facility] Comment on above: Performed By: #### 8 2477-1, CBCA, LIVR, ORACLE EBS CONSULTANT #### [facility] ([id number]) [address] [address] [place] [address] Platelets (Bld) [#/Vol] 264 10*3/uL Normal 150-450 [facility] Comment on above: Performed By: #### 8 2477-1, CBCA, LIVR, ORACLE EBS CONSULTANT #### [facility] ([id number]) [address], [facility] [address] [place] [address] RBC COUNT 4.05 X10E12/L Normal 3.80-5.20 [facility] Comment on above: Performed By: #### 8 2477-1, CBCA, LIVR, ORACLE EBS CONSULTANT #### [facility] ([id number]) [address], [facility] [address] [place] [address] WBC (Bld) [#/Vol] 6.3 10*3/uL Normal 4.0-11.0 [facility] Comment on above: Performed By: #### 8 2477-1, CBCA, LIVR, ORACLE EBS CONSULTANT #### [facility] ([id number]) [address], [address] [place] [address] COMPREHENSIVE METABOLIC PANE Henry 01-19-2024 Albumin [Mass/Vol] 3.6 g/dL Normal 3.2-5.3 [facility] Comment on above: Performed By: #### 8 2477-1, CBCA, LIVR, ORACLE EBS CONSULTANT #### [facility] ([id number]) [address], [address] [place] [address] ALP [Catalytic activity/Vol] 89 U/L Normal 39-130 [facility] Comment on above: Performed By: #### 8 2477-1, CBCA, LIVR, ORACLE EBS CONSULTANT #### [facility] ([id number]) [address], [address] [place] [address] ALT [Catalytic activity/Vol] 19 U/L Normal 0-31 [facility] Comment on above: Performed By: #### 8 2477-1, CBCA, LIVR, ORACLE EBS CONSULTANT #### [facility] ([id number]) [address], [address] [place] [address] Anion gap [Moles/Vol] 9 mmol/L Normal 5-15 [facility] Comment on above: Performed By: #### 8 2477-1, CBCA, LIVR, ORACLE EBS CONSULTANT #### [facility] ([id number]) [address], [address] [place] [address] AST [Catalytic activity/Vol] 31 U/L Normal 0-41 [facility] Comment on above: Performed By: #### 8 2477-1, CBCA, LIVR, ORACLE EBS CONSULTANT #### [facility] ([id number]) [address], [address] [place] [address] Bilirubin [Mass/Vol] 0.4 mg/dL Normal 0.3-1.2 [facility] Comment on above: Performed By: #### 8 2477-1, CBCA, LIVR, ORACLE EBS CONSULTANT #### [facility] ([id number]) [address], [address] [place] [address] Calcium [Mass/Vol] 9.3 mg/dL Normal 8.5-10.5 [facility] Comment on above: Performed By: #### 8 2477-1, CBCA, LIVR, ORACLE EBS CONSULTANT #### [facility] ([id number]) [address], [address] [place] [address] Chloride [Moles/Vol] 106 mmol/L Normal 98-109 [facility] Comment on above: Performed By: #### 8 2477-1, CBCA, LIVR, ORACLE EBS CONSULTANT #### [facility] ([id number]) [address], [address] [place] [address] CO2 [Moles/Vol] 25 mmol/L Normal 22-32 [facility] Comment on above: Performed By: #### 8 2477-1, CBCA, LIVR, ORACLE EBS CONSULTANT #### [facility] ([id number]) [address], [address] [place] [address] Creatinine [Mass/Vol] 0.80 mg/dL Normal 0.40-1.00 [facility] [place] Comment on above: Result Comment: METH OD TRACEABLE TO IDMS STANDARD Performed By: #### 8 2477-1, CBCA, LIVR, ORACLE EBS CONSULTANT #### [facility] ([id number]) [address], [address] [place] [address] GFR/1.73 sq M.predicted among non-blacks MDRD (S/P/Bld) [Vol rate/Area] 73 mL/min/{1.73_m2} Normal >59 [facility] Comment on above: Result Comment: Reported eGFR is based on the CKD-EPI 2020 equation that does not use a race coefficient. Performed By: #### 8 2477-1, CBCA, LIVR, ORACLE EBS CONSULTANT #### [facility] ([id number]) [address], [address] [place] [address] Glucose [Mass/Vol] 112 mg/dL High 65-99 [facility] Comment on above: Performed By: #### 8 2477-1, CBCA, LIVR, ORACLE EBS CONSULTANT #### [facility] ([id number]) [address], [address] [place] [address] Potassium [Moles/Vol] 3.6 mmol/L Normal 3.5-5.0 [facility] Comment on above: Performed By: #### 8 2477-1, CBCA, LIVR, ORACLE EBS CONSULTANT #### [facility] ([id number]) [address], [address] [place] [address] Protein [Mass/Vol] 6.2 g/dL Normal 6.0-8.0 [facility] Comment on above: Performed By: #### 8 2477-1, CBCA, LIVR, ORACLE EBS CONSULTANT #### [facility] ([id number]) [address], [address] [place] [address] Sodium [Moles/Vol] 140 mmol/L Normal 134-146 [facility] Comment on above: Performed By: #### 8 2477-1, CBCA, LIVR, ORACLE EBS CONSULTANT #### [facility] ([id number]) [address], [address] [place] [address] Urea nitrogen [Mass/Vol] 14 mg/dL Normal 5-27 [facility] Comment on above: Performed By: #### 8 2477-1, CBCA, LIVR, ORACLE EBS CONSULTANT #### [facility] ([id number]) [address], [address] [place] [address] CBC AND AUTO DIFFon -24-20 24 ABSOLUTE BASOPHIL 0.2 X10E9/L Normal 0.0-0.2 [facility] Comment on above: Performed By: #### 8 2477-1, CBCA, LIVR, ORACLE EBS CONSULTANT #### [facility] ([id number]) [address], [address] [place] [address] ABSOLUTE NEUTROPHIL 4.8 X10E9/L Normal 1.5-6.6 [facility] Comment on above: Performed By: #### 8 2477-1, CBCA, LIVR, ORACLE EBS CONSULTANT #### [facility] ([id number]) [address], [address] [place] [address] Basophils/100 WBC (Bld) 2.2 % Normal [facility] Comment on above: Performed By: #### 8 2477-1, CBCA, LIVR, ORACLE EBS CONSULTANT #### [facility] ([id number]) [address], [address] [place] [address] Eosinophils (Bld) [#/Vol] 0.4 10*3/uL Normal 0.0-0.4 [facility] Comment on above: Performed By: #### 8 2477-1, CBCA, LIVR, ORACLE EBS CONSULTANT #### [facility] ([id number]) [address], [address] [place] [address] Eosinophils/100 WBC (Bld) 5.2 % Normal [facility] Comment on above: Performed By: #### 8 2477-1, CBCA, LIVR, ORACLE EBS CONSULTANT #### [facility] ([id number]) [address], [address] [place] [address] Erythrocyte distribution width (RBC) [Ratio] 14.2 % Normal 11.5-15.0 [facility] Comment on above: Performed By: #### 8 2477-1, CBCA, LIVR, ORACLE EBS CONSULTANT #### [facility] ([id number]) [address], [address] [place] [address] Hematocrit (Bld) [Volume fraction] 40.3 % Normal 35-47 [facility] Comment on above: Performed By: #### 8 2477-1, CBCA, LIVR, ORACLE EBS CONSULTANT #### [facility] ([id number]) [address], [address] [place] [address] Hemoglobin (Bld) [Mass/Vol] 13.7 g/dL Normal 11.7-15.5 [facility] Comment on above: Performed By: #### 8 2477-1, CBCA, LIVR, ORACLE EBS CONSULTANT #### [facility] ([id number]) [address], [facility] [address] [place] [address] Lymphocytes (Bld) [#/Vol] 1.2 10*3/uL Normal 1.0-3.5 [facility] Comment on above: Performed By: #### 8 2477-1, CBCA, LIVR, ORACLE EBS CONSULTANT #### [facility] ([id number]) [address] [address] [place] [address] Lymphocytes/100 WBC (Bld) 16.3 % Normal [facility] Comment on above: Performed By: #### 8 2477-1, CBCA, LIVR, ORACLE EBS CONSULTANT #### [facility] ([id number]) [address], [facility] [address] [place] [address] MCH (RBC) [Entitic mass] 32.4 pg Normal 27-34 [facility] Comment on above: Performed By: #### 8 2477-1, CBCA, LIVR, ORACLE EBS CONSULTANT #### [facility] ([id number]) [address], [address] [place] [address] MCHC (RBC) [Mass/Vol] 34.0 g/dL Normal 32-36 [facility] Comment on above: Performed By: #### 8 2477-1, CBCA, LIVR, ORACLE EBS CONSULTANT #### [facility] ([id number]) [address] [address] [place] [address] MCV (RBC) [Entitic vol] 95 fL Normal 80-100 [facility] Comment on above: Performed By: #### 8 2477-1, CBCA, LIVR, ORACLE EBS CONSULTANT #### [facility] ([id number]) [address], [address] [place] [address] Monocytes (Bld) [#/Vol] 0.9 10*3/uL Normal 0-0.9 [facility] Comment on above: Performed By: #### 8 2477-1, CBCA, LIVR, ORACLE EBS CONSULTANT #### [facility] ([id number]) [address], [address] [place] [address] Monocytes/100 WBC (Bld) 12.3 % Normal [facility] Comment on above: Performed By: #### 8 2477-1, CBCA, LIVR, ORACLE EBS CONSULTANT #### [facility] ([id number]) [address], [address] [place] [address] Neutrophils/100 WBC (Bld) 64.0 % Normal [facility] Comment on above: Performed By: #### 8 2477-1, CBCA, LIVR, ORACLE EBS CONSULTANT #### [facility] ([id number]) [address], [address] [place] [address] Platelet mean volume (Bld) [Entitic vol] 10.3 fL Normal 7-12 [facility] Comment on above: Performed By: #### 8 2477-1, CBCA, LIVR, ORACLE EBS CONSULTANT #### [facility] ([id number]) [address], [address] [place] [address] Platelets (Bld) [#/Vol] 261 10*3/uL Normal 150-450 [facility] Comment on above: Performed By: #### 8 2477-1, CBCA, LIVR, ORACLE EBS CONSULTANT #### [facility] ([id number]) [address], [address] [place] [address] RBC COUNT 4.23 X10E12/L Normal 3.80-5.20 [facility] Comment on above: Performed By: #### 8 2477-1, CBCA, LIVR, ORACLE EBS CONSULTANT #### [facility] ([id number]) [address], [address] [place] [address] WBC (Bld) [#/Vol] 7.5 10*3/uL Normal 4.0-11.0 [facility] Comment on above: Performed By: #### 8 2477-1, CBCA, LIVR, ORACLE EBS CONSULTANT #### [facility] ([id number]) [address], [address] [place] [address] COMPREHENSIVE METABOLIC PANE Henry 12-29-2023 Albumin [Mass/Vol] 3.8 g/dL Normal 3.2-5.3 [facility] Comment on above: Performed By: #### 8 2477-1, CBCA, LIVR, ORACLE EBS CONSULTANT #### [facility] ([id number]) [address], [address] [place] [address] ALP [Catalytic activity/Vol] 80 U/L Normal 39-130 [facility] Comment on above: Performed By: #### 8 2477-1, CBCA, LIVR, ORACLE EBS CONSULTANT #### [facility] ([id number]) [address], [address] [place] [address] ALT [Catalytic activity/Vol] 14 U/L Normal 0-31 [facility] Comment on above: Performed By: #### 8 2477-1, CBCA, LIVR, ORACLE EBS CONSULTANT #### [facility] ([id number]) [address], [address] [place] [address] Anion gap [Moles/Vol] 10 mmol/L Normal 5-15 [facility] Comment on above: Performed By: #### 8 2477-1, CBCA, LIVR, ORACLE EBS CONSULTANT #### [facility] ([id number]) [address], [address] [place] [address] AST [Catalytic activity/Vol] 35 U/L Normal 0-41 [facility] Comment on above: Performed By: #### 8 2477-1, CBCA, LIVR, ORACLE EBS CONSULTANT #### [facility] [facility] ([id number]) [address], [address] [place] [address] Bilirubin [Mass/Vol] 0.4 mg/dL Normal 0.3-1.2 [facility] Comment on above: Performed By: #### 8 2477-1, CBCA, LIVR, ORACLE EBS CONSULTANT #### [facility] ([id number]) [address], [address] [place] [address] Calcium [Mass/Vol] 9.4 mg/dL Normal 8.5-10.5 [facility] Comment on above: Performed By: #### 8 2477-1, CBCA, LIVR, ORACLE EBS CONSULTANT #### [facility] ([id number]) [address] [address] [place] [address] Chloride [Moles/Vol] 107 mmol/L Normal 98-109 [facility] Comment on above: Performed By: #### 8 2477-1, CBCA, LIVR, ORACLE EBS CONSULTANT #### [facility] ([id number]) [address] [address] [place] [address] CO2 [Moles/Vol] 23 mmol/L Normal 22-32 [facility] Comment on above: Performed By: #### 8 2477-1, CBCA, LIVR, ORACLE EBS CONSULTANT #### [facility] ([id number]) [address] [address] [place] [address] Creatinine [Mass/Vol] 0.83 mg/dL Normal 0.40-1.00 [facility] Comment on above: Result Comment: METH OD TRACEABLE TO IDMS STANDARD Performed By: #### 8 2477-1, CBCA, LIVR, ORACLE EBS CONSULTANT #### [facility] ([id number]) [address] [address] [place] [address] GFR/1.73 sq M.predicted among non-blacks MDRD (S/P/Bld) [Vol rate/Area] 70 mL/min/{1.73_m2} Normal >59 [facility] Comment on above: Result Comment: Reported eGFR is based on the CKD-EPI 2020 equation that does not use a race coefficient. Performed By: #### 8 2477-1, CBCA, LIVR, ORACLE EBS CONSULTANT #### [facility] ([id number]) [address], [address] [place] [address] Glucose [Mass/Vol] 100 mg/dL High 65-99 [facility] Comment on above: Performed By: #### 8 2477-1, CBCA, LIVR, ORACLE EBS CONSULTANT #### [facility] ([id number]) [address], [address] [place] [address] Potassium [Moles/Vol] 3.8 mmol/L Normal 3.5-5.0 [facility] Comment on above: Performed By: #### 8 2477-1, CBCA, LIVR, ORACLE EBS CONSULTANT #### [facility] ([id number]) [address], [address] [place] [address] Protein [Mass/Vol] 6.5 g/dL Normal 6.0-8.0 [facility] Comment on above: Performed By: #### 8 2477-1, CBCA, LIVR, ORACLE EBS CONSULTANT #### [facility] ([id number]) [address] [address] [place] [address] Sodium [Moles/Vol] 140 mmol/L Normal 134-146 [facility] Comment on above: Performed By: #### 8 2477-1, CBCA, LIVR, ORACLE EBS CONSULTANT #### [facility] ([id number]) [address], [address] [place] [address] Urea nitrogen [Mass/Vol] 18 mg/dL Normal 5-27 [facility] Comment on above: Performed By: #### 8 2477-1, CBCA, LIVR, ORACLE EBS CONSULTANT #### [facility] ([id number]) [address], [address] [place] [address] CBC AND AUTO DIFFon 12-11-19 24 ABSOLUTE BASOPHIL 0.1 X10E9/L Normal 0.0-0.2 [facility] Comment on above: Performed By: #### 8 2477-1, CBCA, LIVR, ORACLE EBS CONSULTANT #### [facility] ([id number]) [address], [address] [place] [address] ABSOLUTE NEUTROPHIL 3.8 X10E9/L Normal 1.5-6.6 [facility] Comment on above: Performed By: #### 8 2477-1, CBCA, LIVR, ORACLE EBS CONSULTANT #### [facility] ([id number]) [address], [facility] [address] [place] [address] Basophils/100 WBC (Bld) 2.0 % Normal [facility] Comment on above: Performed By: #### 8 2477-1, CBCA, LIVR, ORACLE EBS CONSULTANT #### [facility] ([id number]) [address], [address] [place] [address] Eosinophils (Bld) [#/Vol] 0.2 10*3/uL Normal 0.0-0.4 [facility] Comment on above: Performed By: #### 8 2477-1, CBCA, LIVR, ORACLE EBS CONSULTANT #### [facility] ([id number]) [address], [facility] [address] [place] [address] Eosinophils/100 WBC (Bld) 3.3 % Normal [facility] Comment on above: Performed By: #### 8 2477-1, CBCA, LIVR, ORACLE EBS CONSULTANT #### [facility] ([id number]) [address], [facility] [address] [place] [address] Erythrocyte distribution width (RBC) [Ratio] 13.8 % Normal 11.5-15.0 [facility] Comment on above: Performed By: #### 8 2477-1, CBCA, LIVR, ORACLE EBS CONSULTANT #### [facility] ([id number]) [address], [address] [place] [address] Hematocrit (Bld) [Volume fraction] 40.1 % Normal 35-47 [facility] Comment on above: Performed By: #### 8 2477-1, CBCA, LIVR, ORACLE EBS CONSULTANT #### [facility] ([id number]) [address], [facility] [address] [place] [address] Hemoglobin (Bld) [Mass/Vol] 13.2 g/dL Normal 11.7-15.5 [facility] Comment on above: Performed By: #### 8 2477-1, CBCA, LIVR, ORACLE EBS CONSULTANT #### [facility] ([id number]) [address], [facility] [address] [place] [address] Lymphocytes (Bld) [#/Vol] 0.9 10*3/uL Low 1.0-3.5 [facility] Comment on above: Performed By: #### 8 2477-1, CBCA, LIVR, ORACLE EBS CONSULTANT #### [facility] ([id number]) [address] [address] [place] [address] Lymphocytes/100 WBC (Bld) 15.4 % Normal [facility] Comment on above: Performed By: #### 8 2477-1, CBCA, LIVR, ORACLE EBS CONSULTANT #### [facility] ([id number]) [address], [facility] [address] [place] [address] MCH (RBC) [Entitic mass] 31.2 pg Normal 27-34 [facility] Comment on above: Performed By: #### 8 2477-1, CBCA, LIVR, ORACLE EBS CONSULTANT #### [facility] ([id number]) [address] [address] [place] [address] MCHC (RBC) [Mass/Vol] 32.8 g/dL Normal 32-36 [facility] Comment on above: Performed By: #### 8 2477-1, CBCA, LIVR, ORACLE EBS CONSULTANT #### [facility] ([id number]) [address], [address] [place] [address] MCV (RBC) [Entitic vol] 95 fL Normal 80-100 [facility] Comment on above: Performed By: #### 8 2477-1, CBCA, LIVR, ORACLE EBS CONSULTANT #### [facility] ([id number]) [address], [address] [place] [address] Monocytes (Bld) [#/Vol] 0.7 10*3/uL Normal 0-0.9 [facility] Comment on above: Performed By: #### 8 2477-1, CBCA, LIVR, ORACLE EBS CONSULTANT #### [facility] ([id number]) [address] [place] [address] Monocytes/100 WBC (Bld) 12.2 % Normal [facility] Comment on above: Performed By: #### 8 2477-1, CBCA, LIVR, ORACLE EBS CONSULTANT #### [facility] ([id number]) [address], [address] [place] [address] Neutrophils/100 WBC (Bld) 67.1 % Normal [facility] Comment on above: Performed By: #### 8 2477-1, CBCA, LIVR, ORACLE EBS CONSULTANT #### [facility] ([id number]) [address], [address] [place] [address] Platelet mean volume (Bld) [Entitic vol] 9.5 fL Normal 7-12 [facility] Comment on above: Performed By: #### 8 2477-1, CBCA, LIVR, ORACLE EBS CONSULTANT #### [facility] ([id number]) [address], [address] [place] [address] Platelets (Bld) [#/Vol] 265 10*3/uL Normal 150-450 [facility] Comment on above: Performed By: #### 8 2477-1, CBCA, LIVR, ORACLE EBS CONSULTANT #### [facility] ([id number]) [address], [address] [place] [address] RBC COUNT 4.22 X10E12/L Normal 3.80-5.20 [facility] Comment on above: Performed By: #### 8 2477-1, CBCA, LIVR, ORACLE EBS CONSULTANT #### [facility] ([id number]) [address] [address] WBC (Bld) [#/Vol] 5.6 10*3/uL Normal 4.0-11.0 [facility] Comment on above: Performed By: #### 8 2477-1, CBCA, LIVR, ORACLE EBS CONSULTANT #### [facility] ([id number]) [address], [address] [address] CREATININEon 12-11-2023 Creatinine [Mass/Vol] 0.74 mg/dL Normal 0.40-1.00 [facility] Comment on above: Result Comment: METH OD TRACEABLE TO IDMS STANDARD Performed By: #### 8 2477-1, CBCA, LIVR, ORACLE EBS CONSULTANT #### [facility] ([id number]) [address] [address] GFR/1.73 sq M.predicted among non-blacks MDRD (S/P/Bld) [Vol rate/Area] 80 mL/min/{1.73_m2} Normal >59 [facility] Comment on above: Result Comment: Reported eGFR is based on the CKD-EPI 2020 equation that does not use a race coefficient. Performed By: #### 8 2477-1, CBCA, LIVR, ORACLE EBS CONSULTANT #### [facility] ([id number]) [address] [address] ESR Photometric method (Bld) [Velocity]on 12-11-2023 ESR, ERYTHROCYTE SEDIMENTATION RATE 9 mm/h Normal 0-30 [facility] Comment on above: Performed By: #### 8 2477-1, CBCA, LIVR, ORACLE EBS CONSULTANT #### [facility] ([id number]) [address] [place] [address] LIVER PANELon 12-11-2023 Albumin [Mass/Vol] 3.4 g/dL Normal 3.2-5.3 [facility] Comment on above: Performed By: #### 8 2477-1, CBCA, LIVR, ORACLE EBS CONSULTANT #### [facility] ([id number]) [address], [address] [place] [address] ALP [Catalytic activity/Vol] 84 U/L Normal 39-130 [facility] Comment on above: Performed By: #### 8 2477-1, CBCA, LIVR, ORACLE EBS CONSULTANT #### [facility] ([id number]) [address], [address] [place] [address] ALT [Catalytic activity/Vol] 19 U/L Normal 0-31 [facility] Comment on above: Performed By: #### 8 2477-1, CBCA, LIVR, ORACLE EBS CONSULTANT #### [facility] ([id number]) [address], [address] [place] [address] AST [Catalytic activity/Vol] 31 U/L Normal 0-41 [facility] Comment on above: Performed By: #### 8 2477-1, CBCA, LIVR, ORACLE EBS CONSULTANT #### [facility] ([id number]) [address], [address] [place] [address] Bilirubin [Mass/Vol] 0.5 mg/dL Normal 0.3-1.2 [facility] Comment on above: Performed By: #### 8 2477-1, CBCA, LIVR, ORACLE EBS CONSULTANT #### [facility] ([id number]) [address], [address] [place] [address] Bilirubin.direct [Mass/Vol] 0.1 mg/dL Normal 0.0-0.4 [facility] Comment on above: Performed By: #### 8 2477-1, CBCA, LIVR, ORACLE EBS CONSULTANT #### [facility] ([id number]) [address], [address] [place] [address] Protein [Mass/Vol] 6.1 g/dL Normal 6.0-8.0 [facility] Comment on above: Performed By: #### 8 2477-1, CBCA, LIVR, ORACLE EBS CONSULTANT #### [facility] ([id number]) [address], [facility] [address] [place] [address] CBC AND AUTO DIFFon 12-01-19 ABSOLUTE BASOPHIL 0.1 X10E9/L Normal 0.0-0.2 [facility] Comment on above: Performed By: #### 8 2477-1, CBCA, LIVR, ORACLE EBS CONSULTANT #### [facility] ([id number]) [address] [address] ABSOLUTE NEUTROPHIL 4.7 X10E9/L Normal 1.5-6.6 [facility] Comment on above: Performed By: #### 8 2477-1, CBCA, LIVR, ORACLE EBS CONSULTANT #### [facility] ([id number]) [address], [address] [address] Basophils/100 WBC (Bld) 1.5 % Normal [facility] Comment on above: Performed By: #### 8 2477-1, CBCA, LIVR, ORACLE EBS CONSULTANT #### [facility] ([id number]) [address], [facility] [address] [place] [address] Eosinophils (Bld) [#/Vol] 0.3 10*3/uL Normal 0.0-0.4 [facility] Comment on above: Performed By: #### 8 2477-1, CBCA, LIVR, ORACLE EBS CONSULTANT #### [facility] ([id number]) [address] [address] [place] [address] Eosinophils/100 WBC (Bld) 3.7 % Normal [facility] Comment on above: Performed By: #### 8 2477-1, CBCA, LIVR, ORACLE EBS CONSULTANT #### [facility] ([id number]) [address], [address] [place] [address] Erythrocyte distribution width (RBC) [Ratio] 14.0 % Normal 11.5-15.0 [facility] Comment on above: Performed By: #### 8 2477-1, CBCA, LIVR, ORACLE EBS CONSULTANT #### [facility] ([id number]) [address] [place] [address] Hematocrit (Bld) [Volume fraction] 40.8 % Normal 35-47 [facility] Comment on above: Performed By: #### 8 2477-1, CBCA, LIVR, ORACLE EBS CONSULTANT #### [facility] ([id number]) [address] [address] [place] [address] Hemoglobin (Bld) [Mass/Vol] 13.5 g/dL Normal 11.7-15.5 [facility] Comment on above: Performed By: #### 8 2477-1, CBCA, LIVR, ORACLE EBS CONSULTANT #### [facility] ([id number]) [address] [address] [place] [address] Lymphocytes (Bld) [#/Vol] 1.4 10*3/uL Normal 1.0-3.5 [facility] Comment on above: Performed By: #### 8 2477-1, CBCA, LIVR, ORACLE EBS CONSULTANT #### [facility] ([id number]) [address] [address] [place] [address] Lymphocytes/100 WBC (Bld) 18.5 % Normal [facility] Comment on above: Performed By: #### 8 2477-1, CBCA, LIVR, ORACLE EBS CONSULTANT #### [facility] ([id number]) [address], [address] [place] [address] MCH (RBC) [Entitic mass] 31.2 pg Normal 27-34 [facility] Comment on above: Performed By: #### 8 2477-1, CBCA, LIVR, ORACLE EBS CONSULTANT #### [facility] ([id number]) [address], [address] [place] [address] MCHC (RBC) [Mass/Vol] 33.0 g/dL Normal 32-36 [facility] Comment on above: Performed By: #### 8 2477-1, CBCA, LIVR, ORACLE EBS CONSULTANT #### [facility] ([id number]) [address], [address] [place] [address] MCV (RBC) [Entitic vol] 94 fL Normal 80-100 [facility] Comment on above: Performed By: #### 8 2477-1, CBCA, LIVR, ORACLE EBS CONSULTANT #### [facility] ([id number]) [address], [address] [place] [address] Monocytes (Bld) [#/Vol] 1.0 10*3/uL High 0-0.9 [facility] Comment on above: Performed By: #### 8 2477-1, CBCA, LIVR, ORACLE EBS CONSULTANT #### [facility] ([id number]) [address] [place] [address] Monocytes/100 WBC (Bld) 13.5 % Normal [facility] Comment on above: Performed By: #### 8 2477-1, CBCA, LIVR, ORACLE EBS CONSULTANT #### [facility] ([id number]) [address] [place] [address] Neutrophils/100 WBC (Bld) 62.8 % Normal [facility] Comment on above: Performed By: #### 8 2477-1, CBCA, LIVR, ORACLE EBS CONSULTANT #### [facility] ([id number]) [address], [address] [place] [address] Platelet mean volume (Bld) [Entitic vol] 9.8 fL Normal 7-12 [facility] Comment on above: Performed By: #### 8 2477-1, CBCA, LIVR, ORACLE EBS CONSULTANT #### [facility] ([id number]) [address] [place] [address] Platelets (Bld) [#/Vol] 301 10*3/uL Normal 150-450 [facility] Comment on above: Performed By: #### 8 2477-1, CBCA, LIVR, ORACLE EBS CONSULTANT #### [facility] ([id number]) [address], [address] [place] [address] RBC COUNT 4.32 X10E12/L Normal 3.80-5.20 [facility] Comment on above: Performed By: #### 8 2477-1, CBCA, LIVR, ORACLE EBS CONSULTANT #### [facility] ([id number]) [address], [address] [place] [address] WBC (Bld) [#/Vol] 7.6 10*3/uL Normal 4.0-11.0 [facility] Comment on above: Performed By: #### 8 2477-1, CBCA, LIVR, ORACLE EBS CONSULTANT #### [facility] ([id number]) [address], [address] [place] [address] COMPREHENSIVE METABOLIC PANE Henry 12-01-2023 Albumin [Mass/Vol] 3.7 g/dL Normal 3.2-5.3 [facility] Comment on above: Performed By: #### 8 2477-1, CBCA, LIVR, ORACLE EBS CONSULTANT #### [facility] ([id number]) [address], [address] [place] [address] ALP [Catalytic activity/Vol] 92 U/L Normal 39-130 [facility] Comment on above: Performed By: #### 8 2477-1, CBCA, LIVR, ORACLE EBS CONSULTANT #### [facility] ([id number]) [address], [address] [place] [address] ALT [Catalytic activity/Vol] 15 U/L Normal 0-31 [facility] Comment on above: Performed By: #### 8 2477-1, CBCA, LIVR, ORACLE EBS CONSULTANT #### [facility] ([id number]) [address], [address] [place] [address] Anion gap [Moles/Vol] 10 mmol/L Normal 5-15 [facility] [place] Comment on above: Performed By: #### 8 2477-1, CBCA, LIVR, ORACLE EBS CONSULTANT #### [facility] ([id number]) [address], [address] [place] [address] AST [Catalytic activity/Vol] 29 U/L Normal 0-41 [facility] Comment on above: Performed By: #### 8 2477-1, CBCA, LIVR, ORACLE EBS CONSULTANT #### [facility] ([id number]) [address], [address] [place] [address] Bilirubin [Mass/Vol] 0.5 mg/dL Normal 0.3-1.2 [facility] Comment on above: Performed By: #### 8 2477-1, CBCA, LIVR, ORACLE EBS CONSULTANT #### [facility] ([id number]) [address] [place] [address] Calcium [Mass/Vol] 9.6 mg/dL Normal 8.5-10.5 [facility] Comment on above: Performed By: #### 8 2477-1, CBCA, LIVR, ORACLE EBS CONSULTANT #### [facility] ([id number]) [address] [place] [address] Chloride [Moles/Vol] 107 mmol/L Normal 98-109 [facility] Comment on above: Performed By: #### 8 2477-1, CBCA, LIVR, ORACLE EBS CONSULTANT #### [facility] ([id number]) [address], [address] [place] [address] CO2 [Moles/Vol] 23 mmol/L Normal 22-32 [facility] Comment on above: Performed By: #### 8 2477-1, CBCA, LIVR, ORACLE EBS CONSULTANT #### [facility] ([id number]) [address] [address] [place] [address] Creatinine [Mass/Vol] 0.75 mg/dL Normal 0.40-1.00 [facility] Comment on above: Result Comment: METH OD TRACEABLE TO IDMS STANDARD Performed By: #### 8 2477-1, CBCA, LIVR, ORACLE EBS CONSULTANT #### [facility] ([id number]) [address], [facility] [address] [place] [address] GFR/1.73 sq M.predicted among non-blacks MDRD (S/P/Bld) [Vol rate/Area] 79 mL/min/{1.73_m2} Normal >59 [facility] Comment on above: Result Comment: Reported eGFR is based on the CKD-EPI 2020 equation that does not use a race coefficient. Performed By: #### 8 2477-1, CBCA, LIVR, ORACLE EBS CONSULTANT #### [facility] ([id number]) [address] [address] [place] [address] Glucose [Mass/Vol] 88 mg/dL Normal 65-99 [facility] Comment on above: Performed By: #### 8 2477-1, CBCA, LIVR, ORACLE EBS CONSULTANT #### [facility] ([id number]) [address] [address] [place] [address] Potassium [Moles/Vol] 3.7 mmol/L Normal 3.5-5.0 [facility] Comment on above: Performed By: #### 8 2477-1, CBCA, LIVR, ORACLE EBS CONSULTANT #### [facility] ([id number]) [address] [address] [place] [address] Protein [Mass/Vol] 6.7 g/dL Normal 6.0-8.0 [facility] Comment on above: Performed By: #### 8 2477-1, CBCA, LIVR, ORACLE EBS CONSULTANT #### [facility] ([id number]) [address] [place] [address] Sodium [Moles/Vol] 140 mmol/L Normal 134-146 [facility] Comment on above: Performed By: #### 8 2477-1, CBCA, LIVR, ORACLE EBS CONSULTANT #### [facility] ([id number]) [address] [place] [address] Urea nitrogen [Mass/Vol] 16 mg/dL Normal 5-27 [facility] Comment on above: Performed By: #### 8 2477-1, CBCA, LIVR, ORACLE EBS CONSULTANT #### [facility] ([id number]) [address] [place] [address] Pathology Request for Lab Co rpon 11-03-2023 Pathology Request for Lab Stevan Normal [facility] Comment on above: Order Comment: PATHO LOGY BREAST BIOPSY Result Comment: See report. Scanned copy available in EMR. PERFORMED BY: [place] [address] PATHOLOGIST MUTUAL FUND ANALYST TOBIAS SCOTT M.D. Performed By: #### P ATH TO [facility] #### [address] CBC AND AUTO DIFFon 10-02-19 24 ABSOLUTE BASOPHIL 0.1 X10E9/L Normal 0.0-0.2 [facility] Comment on above: Performed By: #### 8 2477-1, CBCA, LIVR, ORACLE EBS CONSULTANT #### [facility] ([id number]) [address], [address] [place] [address] ABSOLUTE NEUTROPHIL 5.0 X10E9/L Normal 1.5-6.6 [facility] Comment on above: Performed By: #### 8 2477-1, CBCA, LIVR, ORACLE EBS CONSULTANT #### [facility] ([id number]) [address], [address] [place] [address] Basophils/100 WBC (Bld) 1.4 % Normal [facility] Comment on above: Performed By: #### 8 2477-1, CBCA, LIVR, ORACLE EBS CONSULTANT #### [facility] ([id number]) [address] [address] [place] [address] Eosinophils (Bld) [#/Vol] 0.3 10*3/uL Normal 0.0-0.4 [facility] Comment on above: Performed By: #### 8 2477-1, CBCA, LIVR, ORACLE EBS CONSULTANT #### [facility] ([id number]) [address] [address] [place] [address] Eosinophils/100 WBC (Bld) 3.4 % Normal [facility] Comment on above: Performed By: #### 8 2477-1, CBCA, LIVR, ORACLE EBS CONSULTANT #### [facility] ([id number]) [address] [address] [place] [address] Erythrocyte distribution width (RBC) [Ratio] 13.4 % Normal 11.5-15.0 [facility] Comment on above: Performed By: #### 8 2477-1, CBCA, LIVR, ORACLE EBS CONSULTANT #### [facility] ([id number]) [address] [address] [place] [address] Hematocrit (Bld) [Volume fraction] 42.3 % Normal 35-47 [facility] Comment on above: Performed By: #### 8 2477-1, CBCA, LIVR, ORACLE EBS CONSULTANT #### [facility] ([id number]) [address] [address] [place] [address] Hemoglobin (Bld) [Mass/Vol] 14.6 g/dL Normal 11.7-15.5 [facility] Comment on above: Performed By: #### 8 2477-1, CBCA, LIVR, ORACLE EBS CONSULTANT #### [facility] ([id number]) [address], [facility] [address] [place] [address] Lymphocytes (Bld) [#/Vol] 1.0 10*3/uL Normal 1.0-3.5 [facility] Comment on above: Performed By: #### 8 2477-1, CBCA, LIVR, ORACLE EBS CONSULTANT #### [facility] ([id number]) [address] [place] [address] Lymphocytes/100 WBC (Bld) 13.3 % Normal [facility] Comment on above: Performed By: #### 8 2477-1, CBCA, LIVR, ORACLE EBS CONSULTANT #### [facility] ([id number]) [address] [place] [address] MCH (RBC) [Entitic mass] 32.4 pg Normal 27-34 [facility] Comment on above: Performed By: #### 8 2477-1, CBCA, LIVR, ORACLE EBS CONSULTANT #### [facility] ([id number]) [address] [place] [address] MCHC (RBC) [Mass/Vol] 34.6 g/dL Normal 32-36 [facility] Comment on above: Performed By: #### 8 2477-1, CBCA, LIVR, ORACLE EBS CONSULTANT #### [facility] ([id number]) [address] [place] [address] MCV (RBC) [Entitic vol] 94 fL Normal 80-100 [facility] Comment on above: Performed By: #### 8 2477-1, CBCA, LIVR, ORACLE EBS CONSULTANT #### [facility] ([id number]) [address] [place] [address] Monocytes (Bld) [#/Vol] 1.0 10*3/uL High 0-0.9 [facility] Comment on above: Performed By: #### 8 2477-1, CBCA, LIVR, ORACLE EBS CONSULTANT #### [facility] ([id number]) [address], [address] [place] [address] Monocytes/100 WBC (Bld) 14.0 % Normal [facility] Comment on above: Performed By: #### 8 2477-1, CBCA, LIVR, ORACLE EBS CONSULTANT #### [facility] ([id number]) [address], [address] [place] [address] Neutrophils/100 WBC (Bld) 67.9 % Normal [facility] Comment on above: Performed By: #### 8 2477-1, CBCA, LIVR, ORACLE EBS CONSULTANT #### [facility] ([id number]) [address], [address] [place] [address] Platelet mean volume (Bld) [Entitic vol] 9.7 fL Normal 7-12 [facility] Comment on above: Performed By: #### 8 2477-1, CBCA, LIVR, ORACLE EBS CONSULTANT #### [facility] ([id number]) [address], [address] [place] [address] Platelets (Bld) [#/Vol] 290 10*3/uL Normal 150-450 [facility] Comment on above: Performed By: #### 8 2477-1, CBCA, LIVR, ORACLE EBS CONSULTANT #### [facility] ([id number]) [address], [address] [place] [address] RBC COUNT 4.53 X10E12/L Normal 3.80-5.20 [facility] Comment on above: Performed By: #### 8 2477-1, CBCA, LIVR, ORACLE EBS CONSULTANT #### [facility] ([id number]) [address] [place] [address] WBC (Bld) [#/Vol] 7.4 10*3/uL Normal 4.0-11.0 [facility] Comment on above: Performed By: #### 8 2477-1, CBCA, LIVR, ORACLE EBS CONSULTANT #### [facility] ([id number]) [address], [address] [place] [address] CREATININEon 10-02-2023 Creatinine [Mass/Vol] 0.79 mg/dL Normal 0.40-1.00 [facility] Comment on above: Result Comment: METH OD TRACEABLE TO IDMS STANDARD Performed By: #### 8 2477-1, CBCA, LIVR, ORACLE EBS CONSULTANT #### [facility] ([id number]) [address] [address] [place] [address] GFR/1.73 sq M.predicted among non-blacks MDRD (S/P/Bld) [Vol rate/Area] 74 mL/min/{1.73_m2} Normal >59 [facility] Comment on above: Result Comment: Reported eGFR is based on the CKD-EPI 2020 equation that does not use a race coefficient. Performed By: #### 8 2477-1, CBCA, LIVR, ORACLE EBS CONSULTANT #### [facility] ([id number]) [address] [address] ESR Photometric method (Bld) [Velocity]on 10-02-2023 ESR, ERYTHROCYTE SEDIMENTATION RATE 7 mm/h Normal 0-30 [facility] Comment on above: Performed By: #### 8 2477-1, CBCA, LIVR, ORACLE EBS CONSULTANT #### [facility] ([id number]) [address] [address] LIVER PANELon 10-02-2023 Albumin [Mass/Vol] 3.8 g/dL Normal 3.2-5.3 [facility] Comment on above: Performed By: #### 8 2477-1, CBCA, LIVR, ORACLE EBS CONSULTANT #### [facility] ([id number]) [address] [address] ALP [Catalytic activity/Vol] 86 U/L Normal 39-130 [facility] Comment on above: Performed By: #### 8 2477-1, CBCA, LIVR, ORACLE EBS CONSULTANT #### [facility] ([id number]) [address] [address] ALT [Catalytic activity/Vol] 12 U/L Normal 0-31 [facility] Comment on above: Performed By: #### 8 2477-1, CBCA, LIVR, ORACLE EBS CONSULTANT #### [facility] ([id number]) [address], [facility] [address] [place] [address] AST [Catalytic activity/Vol] 23 U/L Normal 0-41 [facility] Comment on above: Performed By: #### 8 2477-1, CBCA, LIVR, ORACLE EBS CONSULTANT #### [facility] ([id number]) [address], [facility] [address] [place] [address] Bilirubin [Mass/Vol] 0.6 mg/dL Normal 0.3-1.2 [facility] Comment on above: Performed By: #### 8 2477-1, CBCA, LIVR, ORACLE EBS CONSULTANT #### [facility] ([id number]) [address], [facility] [address] [place] [address] Bilirubin.direct [Mass/Vol] 0.1 mg/dL Normal 0.0-0.4 [facility] Comment on above: Performed By: #### 8 2477-1, CBCA, LIVR, ORACLE EBS CONSULTANT #### [facility] ([id number]) [address], [facility] [address] [place] [address] Protein [Mass/Vol] 6.6 g/dL Normal 6.0-8.0 [facility] Comment on above: Performed By: #### 8 2477-1, CBCA, LIVR, ORACLE EBS CONSULTANT #### [facility] ([id number]) [address], [facility] [address] [place] [address] CBC AND AUTO DIFFon 07-09-19 24 ABSOLUTE BASOPHIL 0.1 X10E9/L Normal 0.0-0.2 [facility] Comment on above: Performed By: #### C BCA, ORACLE EBS CONSULTANT, LIVR, 61615-6 #### [facility] ([id number]) [address] [place] [address] ABSOLUTE NEUTROPHIL 4.2 X10E9/L Normal 1.5-6.6 [facility] Comment on above: Performed By: #### C BCA, ORACLE EBS CONSULTANT, LIVR, 29261-9 #### [facility] ([id number]) [address] [place] [address] Basophils/100 WBC (Bld) 2.2 % Normal [facility] Comment on above: Performed By: #### C BCA, ORACLE EBS CONSULTANT, LIVR, 36632-4 #### [facility] ([id number]) [address] [place] [address] Eosinophils (Bld) [#/Vol] 0.2 10*3/uL Normal 0.0-0.4 [facility] Comment on above: Performed By: #### C BCA, ORACLE EBS CONSULTANT, LIVR, 30502-3 #### [facility] ([id number]) [address] [place] [address] Eosinophils/100 WBC (Bld) 3.7 % Normal [facility] Comment on above: Performed By: #### C BCA, ORACLE EBS CONSULTANT, LIVR, 75815-4 #### [facility] ([id number]) [address] [place] [address] Erythrocyte distribution width (RBC) [Ratio] 14.4 % Normal 11.5-15.0 [facility] Comment on above: Performed By: #### C BCA, ORACLE EBS CONSULTANT, LIVR, 42458-9 #### [facility] ([id number]) [address] [place] [address] Hematocrit (Bld) [Volume fraction] 41.2 % Normal 35-47 [facility] Comment on above: Performed By: #### C BCA, ORACLE EBS CONSULTANT, LIVR, 10663-5 #### [facility] ([id number]) [address] [place] [address] Hemoglobin (Bld) [Mass/Vol] 14.1 g/dL Normal 11.7-15.5 [facility] Comment on above: Performed By: #### C BCA, ORACLE EBS CONSULTANT, LIVR, 61284-7 #### [facility] ([id number]) [address] [place] [address] Lymphocytes (Bld) [#/Vol] 1.2 10*3/uL Normal 1.0-3.5 [facility] Comment on above: Performed By: #### C BCA, ORACLE EBS CONSULTANT, LIVR, 76853-5 #### [facility] ([id number]) [address], [facility] [address] [place] [address] Lymphocytes/100 WBC (Bld) 17.9 % Normal [facility] Comment on above: Performed By: #### C BCA, ORACLE EBS CONSULTANT, LIVR, 04236-4 #### [facility] ([id number]) [address] [place] [address] MCH (RBC) [Entitic mass] 32.0 pg Normal 27-34 [facility] Comment on above: Performed By: #### C BCA, ORACLE EBS CONSULTANT, LIVR, 81023-0 #### [facility] ([id number]) [address] [place] [address] MCHC (RBC) [Mass/Vol] 34.3 g/dL Normal 32-36 [facility] Comment on above: Performed By: #### C BCA, ORACLE EBS CONSULTANT, LIVR, 25384-8 #### [facility] ([id number]) [address] [address] [place] [address] MCV (RBC) [Entitic vol] 93 fL Normal 80-100 [facility] Comment on above: Performed By: #### C BCA, ORACLE EBS CONSULTANT, LIVR, 93886-9 #### [facility] ([id number]) [address] [place] [address] Monocytes (Bld) [#/Vol] 0.9 10*3/uL Normal 0-0.9 [facility] Comment on above: Performed By: #### C BCA, ORACLE EBS CONSULTANT, LIVR, 39525-7 #### [facility] ([id number]) [address] [place] [address] Monocytes/100 WBC (Bld) 13.2 % Normal [facility] Comment on above: Performed By: #### C BCA, ORACLE EBS CONSULTANT, LIVR, 82522-4 #### [facility] ([id number]) [address] [place] [address] Neutrophils/100 WBC (Bld) 63.0 % Normal [facility] Comment on above: Performed By: #### C BCA, ORACLE EBS CONSULTANT, LIVR, 78760-4 #### [facility] ([id number]) [address] [place] [address] Platelet mean volume (Bld) [Entitic vol] 9.7 fL Normal 7-12 [facility] Comment on above: Performed By: #### C BCA, ORACLE EBS CONSULTANT, LIVR, 91184-9 #### [facility] ([id number]) [address] [place] [address] Platelets (Bld) [#/Vol] 275 10*3/uL Normal 150-450 [facility] Comment on above: Performed By: #### C BCA, ORACLE EBS CONSULTANT, LIVR, 35978-8 #### [facility] ([id number]) [address] [place] [address] RBC COUNT 4.42 X10E12/L Normal 3.80-5.20 [facility] Comment on above: Performed By: #### C BCA, ORACLE EBS CONSULTANT, LIVR, 69915-8 #### [facility] ([id number]) [address] [address] WBC (Bld) [#/Vol] 6.6 10*3/uL Normal 4.0-11.0 [facility] Comment on above: Performed By: #### C BCA, ORACLE EBS CONSULTANT, LIVR, 96511-5 #### [facility] ([id number]) [address] [address] CREATININEon 07-09-2023 Creatinine [Mass/Vol] 0.70 mg/dL Normal 0.40-1.00 [facility] Comment on above: Result Comment: METH OD TRACEABLE TO IDMS STANDARD Performed By: #### C BCA, ORACLE EBS CONSULTANT, LIVR, 51452-6 #### [facility] ([id number]) [address] [address] GFR/1.73 sq M.predicted among non-blacks MDRD (S/P/Bld) [Vol rate/Area] 86 mL/min/{1.73_m2} Normal >59 [facility] Comment on above: Result Comment: Reported eGFR is based on the CKD-EPI 2020 equation that does not use a race coefficient. Performed By: #### C BCA, ORACLE EBS CONSULTANT, LIVR, 62662-0 #### [facility] ([id number]) [address] [address] ESR Photometric method (Bld) [Velocity]on 07-09-2023 ESR, ERYTHROCYTE SEDIMENTATION RATE 5 mm/h Normal 0-30 [facility] Comment on above: Performed By: #### C BCA, ORACLE EBS CONSULTANT, LIVR, 55592-6 #### [facility] ([id number]) [address] [address] LIVER PANELon 07-09-2023 Albumin [Mass/Vol] 3.9 g/dL Normal 3.2-5.3 [facility] Comment on above: Performed By: #### C BCA, ORACLE EBS CONSULTANT, LIVR, 38777-8 #### [facility] ([id number]) [address], [address] [place] [address] ALP [Catalytic activity/Vol] 104 U/L Normal 39-130 [facility] Comment on above: Performed By: #### C BCA, ORACLE EBS CONSULTANT, LIVR, 82945-6 #### [facility] ([id number]) [address], [address] [place] [address] ALT [Catalytic activity/Vol] 21 U/L Normal 0-31 [facility] Comment on above: Performed By: #### C BCA, ORACLE EBS CONSULTANT, LIVR, 65316-1 #### [facility] ([id number]) [address], [address] [place] [address] AST [Catalytic activity/Vol] 32 U/L Normal 0-41 [facility] Comment on above: Performed By: #### C BCA, OR[employer]LE EBS CONSULTANT, LIVR, 82957-8 #### [facility] ([id number]) [address], [address] [place] [address] Bilirubin [Mass/Vol] 0.5 mg/dL Normal 0.3-1.2 [facility] Comment on above: Performed By: #### C BCA, ORACLE EBS CONSULTANT, LIVR, 45770-7 #### [facility] ([id number]) [address], [address] [place] [address] Bilirubin.direct [Mass/Vol] 0.1 mg/dL Normal 0.0-0.4 [facility] Comment on above: Performed By: #### C BCA, ORACLE EBS CONSULTANT, LIVR, 33282-7 #### [facility] ([id number]) [address], [address] [place] [address] Protein [Mass/Vol] 6.8 g/dL Normal 6.0-8.0 [facility] Comment on above: Performed By: #### C BCA, ORACLE EBS CONSULTANT, LIVR, 65557-7 #### [facility] ([id number]) [address], [address] [place] [address] CBC AND AUTO DIFFon 05-13-19 24 ABSOLUTE BASOPHIL 0.1 X10E9/L Normal 0.0-0.2 [facility] Comment on above: Performed By: #### 8 2477-1, CBCA, LIVR, ORACLE EBS CONSULTANT #### [facility] ([id number]) [address], [address] [place] [address] ABSOLUTE NEUTROPHIL 4.4 X10E9/L Normal 1.5-6.6 [facility] Comment on above: Performed By: #### 8 2477-1, CBCA, LIVR, ORACLE EBS CONSULTANT #### [facility] ([id number]) [address] [address] [place] [address] Basophils/100 WBC (Bld) 1.9 % Normal [facility] Comment on above: Performed By: #### 8 2477-1, CBCA, LIVR, ORACLE EBS CONSULTANT #### [facility] ([id number]) [address], [facility] [address] [place] [address] Eosinophils (Bld) [#/Vol] 0.3 10*3/uL Normal 0.0-0.4 [facility] Comment on above: Performed By: #### 8 2477-1, CBCA, LIVR, ORACLE EBS CONSULTANT #### [facility] ([id number]) [address], [facility] [address] [place] [address] Eosinophils/100 WBC (Bld) 3.5 % Normal [facility] Comment on above: Performed By: #### 8 2477-1, CBCA, LIVR, ORACLE EBS CONSULTANT #### [facility] ([id number]) [address], [address] [place] [address] Erythrocyte distribution width (RBC) [Ratio] 13.6 % Normal 11.5-15.0 [facility] Comment on above: Performed By: #### 8 2477-1, CBCA, LIVR, ORACLE EBS CONSULTANT #### [facility] ([id number]) [address] [address] [place] [address] Hematocrit (Bld) [Volume fraction] 42.5 % Normal 35-47 [facility] Comment on above: Performed By: #### 8 2477-1, CBCA, LIVR, ORACLE EBS CONSULTANT #### [facility] ([id number]) [address], [facility] [address] [place] [address] Hemoglobin (Bld) [Mass/Vol] 14.2 g/dL Normal 11.7-15.5 [facility] Comment on above: Performed By: #### 8 2477-1, CBCA, LIVR, ORACLE EBS CONSULTANT #### [facility] ([id number]) [address] [address] Lymphocytes (Bld) [#/Vol] 1.4 10*3/uL Normal 1.0-3.5 [facility] Comment on above: Performed By: #### 8 2477-1, CBCA, LIVR, ORACLE EBS CONSULTANT #### [facility] ([id number]) [address] [address] [place] [address] Lymphocytes/100 WBC (Bld) 19.9 % Normal [facility] Comment on above: Performed By: #### 8 2477-1, CBCA, LIVR, ORACLE EBS CONSULTANT #### [facility] ([id number]) [address] [facility] [address] [place] [address] MCH (RBC) [Entitic mass] 30.8 pg Normal 27-34 [facility] Comment on above: Performed By: #### 8 2477-1, CBCA, LIVR, ORACLE EBS CONSULTANT #### [facility] ([id number]) [address] [address] [place] [address] MCHC (RBC) [Mass/Vol] 33.4 g/dL Normal 32-36 [facility] Comment on above: Performed By: #### 8 2477-1, CBCA, LIVR, ORACLE EBS CONSULTANT #### [facility] ([id number]) [address] [address] [place] [address] MCV (RBC) [Entitic vol] 92 fL Normal 80-100 [facility] Comment on above: Performed By: #### 8 2477-1, CBCA, LIVR, ORACLE EBS CONSULTANT #### [facility] ([id number]) [address], [facility] [address] [place] [address] Monocytes (Bld) [#/Vol] 0.9 10*3/uL Normal 0-0.9 [facility] Comment on above: Performed By: #### 8 2477-1, CBCA, LIVR, ORACLE EBS CONSULTANT #### [facility] ([id number]) [address] [address] [place] [address] Monocytes/100 WBC (Bld) 12.9 % Normal [facility] Comment on above: Performed By: #### 8 2477-1, CBCA, LIVR, ORACLE EBS CONSULTANT #### [facility] ([id number]) [address] [address] [place] [address] Neutrophils/100 WBC (Bld) 61.8 % Normal [facility] Comment on above: Performed By: #### 8 2477-1, CBCA, LIVR, ORACLE EBS CONSULTANT #### [facility] ([id number]) [address], [address] [place] [address] Platelet mean volume (Bld) [Entitic vol] 10.3 fL Normal 7-12 [facility] Comment on above: Performed By: #### 8 2477-1, CBCA, LIVR, ORACLE EBS CONSULTANT #### [facility] ([id number]) [address], [address] [place] [address] Platelets (Bld) [#/Vol] 288 10*3/uL Normal 150-450 [facility] Comment on above: Performed By: #### 8 2477-1, CBCA, LIVR, ORACLE EBS CONSULTANT #### [facility] ([id number]) [address], [address] [address] RBC COUNT 4.61 X10E12/L Normal 3.80-5.20 [facility] Comment on above: Performed By: #### 8 2477-1, CBCA, LIVR, ORACLE EBS CONSULTANT #### [facility] ([id number]) [address], [address] [address] WBC (Bld) [#/Vol] 7.2 10*3/uL Normal 4.0-11.0 [facility] Comment on above: Performed By: #### 8 2477-1, CBCA, LIVR, ORACLE EBS CONSULTANT #### [facility] ([id number]) [address], [address] [place] [address] CREATININEon 05-13-2023 Creatinine [Mass/Vol] 0.66 mg/dL Normal 0.40-1.00 [facility] Comment on above: Result Comment: METH OD TRACEABLE TO IDMS STANDARD Performed By: #### 8 2477-1, CBCA, LIVR, ORACLE EBS CONSULTANT #### [facility] ([id number]) [address], [address] [address] GFR/1.73 sq M.predicted among non-blacks MDRD (S/P/Bld) [Vol rate/Area] 87 mL/min/{1.73_m2} Normal >59 [facility] Comment on above: Result Comment: Reported eGFR is based on the CKD-EPI 2020 equation that does not use a race coefficient. Performed By: #### 8 2477-1, CBCA, LIVR, ORACLE EBS CONSULTANT #### [facility] ([id number]) [address] [address] ESR Photometric method (Bld) [Velocity]on 05-13-2023 ESR, ERYTHROCYTE SEDIMENTATION RATE 10 mm/h Normal 0-30 [facility] Comment on above: Performed By: #### 8 2477-1, CBCA, LIVR, ORACLE EBS CONSULTANT #### [facility] ([id number]) [address], [address] [place] [address] LIVER PANELon 05-13-2023 Albumin [Mass/Vol] 3.8 g/dL Normal 3.2-5.3 [facility] Comment on above: Performed By: #### 8 2477-1, CBCA, LIVR, ORACLE EBS CONSULTANT #### [facility] ([id number]) [address], [address] [place] [address] ALP [Catalytic activity/Vol] 114 U/L Normal 39-130 [facility] Comment on above: Performed By: #### 8 2477-1, CBCA, LIVR, ORACLE EBS CONSULTANT #### [facility] ([id number]) [address], [address] [place] [address] ALT [Catalytic activity/Vol] 17 U/L Normal 0-31 [facility] Comment on above: Performed By: #### 8 2477-1, CBCA, LIVR, ORACLE EBS CONSULTANT #### [facility] ([id number]) [address], [address] [place] [address] AST [Catalytic activity/Vol] 27 U/L Normal 0-41 [facility] Comment on above: Performed By: #### 8 2477-1, CBCA, LIVR, ORACLE EBS CONSULTANT #### [facility] ([id number]) [address], [address] [place] [address] Bilirubin [Mass/Vol] 0.6 mg/dL Normal 0.3-1.2 [facility] Comment on above: Performed By: #### 8 2477-1, CBCA, LIVR, ORACLE EBS CONSULTANT #### [facility] ([id number]) [address], [address] [place] [address] Bilirubin.direct [Mass/Vol] 0.1 mg/dL Normal 0.0-0.4 [facility] Comment on above: Performed By: #### 8 2477-1, CBCA, LIVR, ORACLE EBS CONSULTANT #### [facility] ([id number]) [address], [address] [place] [address] Protein [Mass/Vol] 6.5 g/dL Normal 6.0-8.0 [facility] Comment on above: Performed By: #### 8 2477-1, CBCA, LIVR, ORACLE EBS CONSULTANT #### [facility] ([id number]) [address] [facility] [place] [address] POCT EKGon 04-10-2023 [facility] CULTURE URINEon 03-28-2022 CULTURE URINE Isolate 1 Escherichia coli >100,000 cfu/mL of ORGANISM 1 Escherichia coli ANTIBIOTIC M.I.C RX STATUS Ampicillin >=32 R F Ampicillin/Sulbact am 4 S F Piperacillin/Tazob actam <=4 S F Cefazolin <=4 S F Ceftazidime <=1 S F Ceftriaxone <=1 S F Ertapenem <=0.5 S F Imipenem <=0.25 S F Amikacin <=2 S F Gentamicin >=16 R F Tobramycin >=16 R F Ciprofloxacin >=4 R F Levofloxacin >=8 R F Nitrofurantoin <=16 S F Trimethoprim/Sulfa methoxazole >=320 R F Normal [facility] Comment on above: Performed By: #### JESSICA PETERSON #### [facility] [address] [place] [address] Dr. Meron Obando CULTURE URINEon 02-10-2022 CULTURE URINE Culture Observations: ERIC TO FOLLOW. Isolate 1 Citrobacter spp. >100,000 cfu/mL of Normal [facility] Comment on above: Performed By: #### JESSICA PETERSON #### [facility] [address] [place] [address] Dr. Meron Obando UA RANDOM W/MICROSCOPICon BACTERIA MODERATE Abnormal NONE SEEN [facility] Comment on above: Performed By: #### U AMIC #### [facility] [address] [place], [place] [id number] Dr. Meron Obando Bilirubin Ql (U) Negative Normal NEGATIVE [facility] Comment on above: Performed By: #### U AMIC #### [facility] [address] [address] [address] Meron Obando CAST NONE SEEN Normal NONE SEEN [facility] Comment on above: Performed By: #### U AMIC #### [facility] [address] [address] [address] Meron Obando Clarity (U) CLEAR Normal CLEAR [facility] Comment on above: Performed By: #### U AMIC #### [facility] [address] [address] [address] Meron Obando Color (U) YELLOW Normal YELLOW [facility] Comment on above: Performed By: #### U AMIC #### [facility] [address] [place] [address] Dr. Meron Obando Crystals LM Nom (Urine sed) NONE SEEN Normal NONE SEEN [facility] Comment on above: Performed By: #### U AMIC #### [facility] [address] [address] [address] Meron Obando Epithelial cells LM Ql (Urine sed) FEW Abnormal NONE SEEN /RARE [facility] Comment on above: Performed By: #### U AMIC #### [facility] [address] [place] [address] Dr. Meron Obando Glucose Ql (U) Negative Normal NEGATIVE [facility] Comment on above: Performed By: #### U AMIC #### [facility] [address] [address] [address] Meron Obando Hemoglobin Ql (U) TRACE-INTACT Abnormal NEGATIVE [facility] Comment on above: Performed By: #### U AMIC #### [facility] [address] [place] [address] Dr. Meron Obando Ketones Ql (U) Negative Normal NEGATIVE [facility] Comment on above: Performed By: #### U AMIC #### [facility] [address] [place] [address] Dr. Meron Obando LEUKOCYTES LARGE Abnormal NEGATIVE [facility] Comment on above: Performed By: #### U AMIC #### [facility] [address] [address] [address] Meron Obando MUCOUS NONE SEEN Normal NONE SEEN [facility] Comment on above: Performed By: #### U AMIC #### [facility] [address] [address] [address] Meron Obando Nitrite Ql (U) Negative Normal NEGATIVE [facility] Comment on above: Performed By: #### U AMIC #### [facility] [address] [place] [address] Dr. Meron Obando pH (U) 6.0 [pH] Normal 5-9 [facility] Comment on above: Performed By: #### U AMIC #### [facility] [address] [place] [address] Dr. Meron Obando RBC 5-10 Abnormal 0-2 [facility] Comment on above: Performed By: #### U AMIC #### [facility] [address] [place] [address] Dr. Meron Obando SPEC GRAVITY <=1.005 Abnormal 1.005-<=1.025 [facility] Comment on above: Performed By: #### U AMIC #### [facility] [address] [place] [address] Dr. Meron Obando UA PROTEIN Negative Normal NEGATIVE/ TRACE [facility] Comment on above: Performed By: #### U AMIC #### [facility] [address] [place] [address] Dr. Meron Obando Urobilinogen Qn (U) 0.2 {Opal'U}/dL Normal 0.2 - 1. 0 [facility] Comment on above: Performed By: #### U AMIC #### [facility] [address] [place] [address] Dr. Meron Obando WBC 50-75 Abnormal NONE SEEN [facility] Comment on above: Performed By: #### U AMIC #### [facility] [address] [place] [address] Dr. Meron Obando C3 and C4 COMPLEMENTon 01-09 Complement C3, Serum 143 mg/dL Normal 82-167 [facility] Comment on above: Performed By: #### C ASA, LIVER #### [facility] [address] [address] [address] Meron Obando Complement C4, Serum 44 mg/dL Critically high 12-38 [facility] Comment on above: Performed By: #### C ASA, LIVER #### [facility] [id number] Meron Obando COMPLEMENT TOTAL (CH50)on Complement, Total (CH50) >60 Normal >41 [facility] Comment on above: Result Comment: Age [...] values. Performed By: #### S EDR #### [facility] [address] [place] [address] Dr. Meron Obando CRPon 01-08-2022 CRP [Mass/Vol] mg/L Normal <=1.0 [facility] Comment on above: Performed By: #### L IVER, CRP #### [facility] [address] [address] [address] Meron Obando LIVER PROFILEon 01-08-2022 Albumin [Mass/Vol] 3.6 g/dL Normal 3.4-5.0 [facility] Comment on above: Performed By: #### L IVER, CRP #### [facility] [id number] Meron Obando Albumin/Globulin [Mass ratio] 1.0 {ratio} Normal [facility] Comment on above: Performed By: #### L IVER, CRP #### [facility] [address] [address] [address] Meron Obando ALP [Catalytic activity/Vol] 127 U/L Critically high 46-116 [facility] Comment on above: Performed By: #### L IVER, CRP #### [facility] [address] [address] [address] Meron Obando ALT [Catalytic activity/Vol] 29 U/L Normal 14-59 [facility] Comment on above: Performed By: #### L IVER, CRP #### [facility] [address] [address] [address] Meron Obando AST [Catalytic activity/Vol] 30 U/L Normal 15-37 [facility] Comment on above: Performed By: #### L IVER, CRP #### [facility] [address] [address] [address] Meron Obando BILI, CONJUGATED 0.2 mg/dL Normal 0.0-0.2 [facility] Comment on above: Performed By: #### L IVER, CRP #### [facility] [address] [address] [address] Meron Obando Bilirubin [Mass/Vol] 0.8 mg/dL Normal 0.2-1.0 [facility] Comment on above: Performed By: #### L IVER, CRP #### [facility] [address] [address] [address] Meron Obando Globulin (S) [Mass/Vol] 3.7 g/dL Normal [facility] Comment on above: Performed By: #### L IVER, CRP #### [facility] [address] [address] [address] Meron Obando Protein [Mass/Vol] 7.3 g/dL Normal 6.4-8.2 [facility] Comment on above: Performed By: #### L IVER, CRP #### [facility] [address] [address] [address] Meron Obando SED RATE WESTERGRENon 2021 SED RATE 35 mm/hr Critically high <=30 [facility] Comment on above: Performed By: #### C ASA, LIVER #### [facility] [address] [address] [address] Meron Obando UA RANDOM W/MICROSCOPICon BACTERIA MODERATE Abnormal NONE SEEN [facility] Comment on above: Performed By: #### S EDR #### [facility] [address] [place] [address] Dr. Meron Obando Bilirubin Ql (U) Negative Normal NEGATIVE [facility] Comment on above: Performed By: #### S EDR #### [facility] [address] [place] [address] Dr. Meron Obando CAST NONE SEEN Normal NONE SEEN [facility] Comment on above: Performed By: #### S EDR #### [facility] [address] [place] [address] Dr. Meron Obando Clarity (U) CLOUDY Abnormal CLEAR [facility] Comment on above: Performed By: #### S EDR #### [facility] [address] [place] [address] Dr. Meron Obando Color (U) LT. YELLOW Normal YELLOW [facility] Comment on above: Performed By: #### S EDR #### [facility] [address] [place] [address] Dr. Meron Obando Crystals LM Nom (Urine sed) NONE SEEN Normal NONE SEEN [facility] Comment on above: Performed By: #### S EDR #### [facility] [address] [place] [address] Dr. Meron Obando Epithelial cells LM Ql (Urine sed) FEW Abnormal NONE SEEN /RARE [facility] Comment on above: Performed By: #### S EDR #### [facility] [address] [place] [address] Dr. Meron Obando Glucose Ql (U) Negative Normal NEGATIVE [facility] Comment on above: Performed By: #### S EDR #### [facility] [address] [place] [address] Dr. Meron Obando Hemoglobin Ql (U) TRACE-INTACT Abnormal NEGATIVE [facility] Comment on above: Performed By: #### S EDR #### [facility] [address] [place] [address] Dr. Meron Obando Ketones Ql (U) Negative Normal NEGATIVE [facility] Comment on above: Performed By: #### S EDR #### [facility] [address] [address] [address] Meron Obando LEUKOCYTES LARGE Abnormal NEGATIVE [facility] Comment on above: Performed By: #### S EDR #### [facility] [address] [place] [address] Dr. Meron Obando MUCOUS NONE SEEN Normal NONE SEEN [facility] Comment on above: Performed By: #### S EDR #### [facility] [address] [address] [address] Meron Obando Nitrite Ql (U) Negative Normal NEGATIVE [facility] Comment on above: Performed By: #### S EDR #### [facility] [address] [place] [address] Dr. Meron Obando pH (U) 6.0 [pH] Normal 5-9 [facility] Comment on above: Performed By: #### S EDR #### [facility] [address] [place] [address] Dr. Meron Obando RBC 2-5 Abnormal 0-2 [facility] Comment on above: Performed By: #### S EDR #### [facility] [address] [place] [address] Dr. Meron Obando SPEC GRAVITY 1.010 Normal 1.005-<=1.025 [facility] Comment on above: Performed By: #### S EDR #### [facility] [address] [place] [address] Dr. Meron Obando UA PROTEIN Negative Normal NEGATIVE/ TRACE [facility] Comment on above: Performed By: #### S EDR #### [facility] [address] [place] [address] Dr. Meron Obando Urobilinogen Qn (U) 0.2 {Opal'U}/dL Normal 0.2 - 1. 0 [facility] Comment on above: Performed By: #### S EDR #### [facility] [address] [place] [address] Dr. Meron Obando WBC (U) [#/Vol] /uL Abnormal NONE SEEN [facility] Comment on above: Performed By: #### S EDR #### [facility] [address] [place] [address] Dr. Meron Obando CULTURE URINEon 12-15-2021 CULTURE URINE Isolate 1 Escherichia coli >100,000 cfu/ml of ORGANISM 1 Escherichia coli ANTIBIOTIC M.I.C RX STATUS Ampicillin 8 S F Ampicillin/Sulbact am 4 S F Piperacillin/Tazob actam <=4 S F Cefazolin <=4 S F Ceftazidime <=1 S F Ceftriaxone <=1 S F Ertapenem <=0.5 S F Imipenem <=0.25 S F Amikacin <=2 S F Gentamicin <=1 S F Tobramycin <=1 S F Ciprofloxacin <=0.25 S F Levofloxacin <=0.12 S F Nitrofurantoin <=16 S F Trimethoprim/Sulfa methoxazole <=20 S F Normal [facility] Comment on above: Performed By: #### C ASA LIVER #### [facility] [address] [place] [address] Dr. Meron Obando CBC AUTO DIFFon 12-10-2021 BASO # 0.1 103/ul Normal 0.0-0.1 [facility] Comment on above: Performed By: #### Ha BRAY LIVER #### [facility] [address] [place] [address] Dr. Meron Obando Basophils/100 WBC (Bld) 0.7 % Normal 0.2-2.0 [facility] Comment on above: Performed By: #### C ASA LIVER #### [facility] [address] [place] [address] Dr. Meron Obando EO # 0.2 103/ul Normal 0.0-0.7 [facility] Comment on above: Performed By: #### Ha BRAY LIVER #### [facility] [address] [place] [address] Dr. Meron Obando Eosinophils/100 WBC (Bld) 2.4 % Normal 0.9-7.0 [facility] Comment on above: Performed By: #### Ha BRAY LIVER #### [facility] [address] [place] [address] Dr. Meron Obando Erythrocyte distribution width (RBC) [Ratio] 15.3 % Critically high 11.0-15.0 [facility] Comment on above: Performed By: #### C ASA, LIVER #### [facility] [address] [place] [address] Dr. Meron Obando Hematocrit (Bld) [Volume fraction] 45.6 % Normal 36.0-48.0 [facility] Comment on above: Performed By: #### C ASA, LIVER #### [facility] [address] [place] [address] Dr. Meron Obando Hemoglobin (Bld) [Mass/Vol] 15.3 g/dL Normal 12.0-16.0 [facility] Comment on above: Performed By: #### C ASA, LIVER #### [facility] [address] [place] [address] Dr. Meron Obando IG # 0.03 10e3/ul Normal 0.00-0.03 [facility] Comment on above: Performed By: #### C ASA, LIVER #### [facility] [address] [place] [address] Dr. Meron Obando IG % 0.3 % Normal 0.0-0.5 [facility] Comment on above: Performed By: #### C ASA, LIVER #### [facility] [address] [place] [address] Dr. Meron Obando LYMPH # 1.6 103/ul Normal 1.2-3.8 [facility] Comment on above: Performed By: #### C ASA, LIVER #### [facility] [address] [place] [address] Dr. Meron Obando Lymphocytes/100 WBC (Bld) 17.0 % Critically low 20.5-60.0 [facility] Comment on above: Performed By: #### C ASA, LIVER #### [facility] [address] [place] [address] Dr. Meron Obnado MANUAL DIFF REQ NO Normal [facility] Comment on above: Performed By: #### C ASA, LIVER #### [facility] [address] [address] [address] Meron Obando MCH (RBC) [Entitic mass] 31.4 pg Normal 26.7-34.0 [facility] Comment on above: Performed By: #### C ASA, LIVER #### [facility] [address] [place] [address] Dr. Meron Obando MCHC (RBC) [Mass/Vol] 33.6 g/dL Normal 29.9-35.2 [facility] Comment on above: Performed By: #### C ASA, LIVER #### [facility] [address] [place] [address] Dr. Meron Obando MCV (RBC) [Entitic vol] 93.6 fL Normal 81.0-99.0 [facility] Comment on above: Performed By: #### C ASA, LIVER #### [facility] [address] [place] [address] Dr. Meron Obando MONO # 1.0 103/ul Critically high 0.3-0.8 [facility] Comment on above: Performed By: #### C ASA, LIVER #### [facility] [address] [place] [address] Dr. Meron Obando Monocytes/100 WBC (Bld) 10.9 % Normal 1.7-12.0 [facility] Comment on above: Performed By: #### C ASA, LIVER #### [facility] [address] [place] [address] Dr. Meron Obando NEUT # 6.3 103/ul Normal 1.4-6.5 [facility] Comment on above: Performed By: #### C ASA, LIVER #### [facility] [address] [place] [address] Dr. Meron Obando Neutrophils/100 WBC (Bld) 68.7 % Normal 43.0-75.0 [facility] Comment on above: Performed By: #### C ASA, LIVER #### [facility] [address] [place] [address] Dr. Meron Obando Platelet mean volume (Bld) [Entitic vol] 10.9 fL Normal 9.5-13.5 [facility] Comment on above: Performed By: #### C ASA, LIVER #### [facility] [address] [place] [address] Dr. Meron Obando PLT 300 103/ul Normal 150-450 [facility] Comment on above: Performed By: #### C ASA, LIVER #### [facility] Laboratory [address] [place] [address] Dr. Meron Obando RBC 4.87 106/ul Normal 4.20-5.40 [facility] Comment on above: Performed By: #### C ASA, LIVER #### [facility] [address] [place] [address] Dr. Meron Obando WBC 9.2 103/ul Normal 4.0-11.0 [facility] Comment on above: Performed By: #### C ASA, LIVER #### [facility] [address] [place] [address] Dr. Meron Obando CREATININEon 12-10-2021 Creatinine [Mass/Vol] 0.96 mg/dL Normal 0.55-1.02 [facility] Comment on above: Performed By: #### C ASA, LIVER #### [facility] [address] [place] [address] Dr. Meron Obando EGFR-AF AUSTRALIAN >60 Normal >=60 [facility] Comment on above: Performed By: #### C ASA, LIVER #### [facility] [address] [place] [address] Dr. Meron Obando EGFR-NON AF AUSTRALIAN 56 mL/min/1.73m2 Critically low >=60 [facility] Comment on above: Performed By: #### C ASA, LIVER #### [facility] [address] [place] [address] Dr. Meron Obando LIVER PROFILEon 12-10-2021 Albumin [Mass/Vol] 3.4 g/dL Normal 3.4-5.0 [facility] Comment on above: Performed By: #### C ASA, LIVER #### [facility] [address] [place] [address] Dr. Meron Obando Albumin/Globulin [Mass ratio] 0.9 {ratio} Normal [facility] Comment on above: Performed By: #### C ASA, LIVER #### [facility] [address] [place] [address] Dr. Meron Obando ALP [Catalytic activity/Vol] 149 U/L Critically high 46-116 [facility] Comment on above: Performed By: #### C ASA, LIVER #### [facility] [address] [place] [address] Dr. Meron Obando ALT [Catalytic activity/Vol] 36 U/L Normal 14-59 [facility] Comment on above: Performed By: #### C ASA, LIVER #### [facility] [address] [place] [address] Dr. Meron Obando AST [Catalytic activity/Vol] 40 U/L Critically high 15-37 [facility] Comment on above: Performed By: #### C ASA, LIVER #### [facility] [address] [place] [address] Dr. Meron Obando BILI, CONJUGATED 0.2 mg/dL Normal 0.0-0.2 [facility] Comment on above: Performed By: #### C ASA, LIVER #### [facility] [address] [place] [address] Dr. Meron Obando Bilirubin [Mass/Vol] 0.5 mg/dL Normal 0.2-1.0 [facility] Comment on above: Performed By: #### C ASA, LIVER #### [facility] [address] [place] [address] Dr. Meron Obando Globulin (S) [Mass/Vol] 3.7 g/dL Normal [facility] Comment on above: Performed By: #### C ASA, LIVER #### [facility] [address] [place] [address] Dr. Meron Obando Protein [Mass/Vol] 7.1 g/dL Normal 6.4-8.2 [facility] Comment on above: Performed By: #### C ASA, LIVER #### [facility] [address] [place] [address] Dr. Meron Obando SED RATE WESTERGRENon 2021 SED RATE 20 mm/hr Normal <=30 [facility] Comment on above: Performed By: #### S EDR #### [facility] [address] [place] [address] Dr. Meron Obando CBC AUTO DIFFon 11-25-2021 BASO # 0.1 103/ul Normal 0.0-0.1 [facility] Comment on above: Performed By: #### C ASA, LIVER #### [facility] [address] [place] [address] Dr. Meron Obando Basophils/100 WBC (Bld) 1.1 % Normal 0.2-2.0 [facility] Comment on above: Performed By: #### C ASA, LIVER #### [facility] [address] [place] [address] Dr. Meron Obando EO # 0.2 103/ul Normal 0.0-0.7 [facility] Comment on above: Performed By: #### C ASA, LIVER #### [facility] [address] [place] [address] Dr. Meron Obando Eosinophils/100 WBC (Bld) 2.4 % Normal 0.9-7.0 [facility] Comment on above: Performed By: #### C ASA, LIVER #### [facility] [address] [place] [address] Dr. Meron Obando Erythrocyte distribution width (RBC) [Ratio] 15.1 % Critically high 11.0-15.0 [facility] Comment on above: Performed By: #### C ASA, LIVER #### [facility] [address] [place] [address] Dr. Meron Obando Hematocrit (Bld) [Volume fraction] 48.0 % Normal 36.0-48.0 [facility] Comment on above: Performed By: #### C ASA, LIVER #### [facility] [address] [place] [address] Dr. Meron Obando Hemoglobin (Bld) [Mass/Vol] 15.5 g/dL Normal 12.0-16.0 [facility] Comment on above: Performed By: #### C ASA, LIVER #### [facility] [address] [address] [address] Meron Obando IG # 0.03 10e3/ul Normal 0.00-0.03 [facility] Comment on above: Performed By: #### C ASA, LIVER #### [facility] [address] [address] [address] Meron Obando IG % 0.3 % Normal 0.0-0.5 [facility] Comment on above: Performed By: #### C ASA, LIVER #### [facility] [address] [address] [address] Meron Obando LYMPH # 1.7 103/ul Normal 1.2-3.8 [facility] Comment on above: Performed By: #### C ASA, LIVER #### [facility] [address] [address] [address] Meron Obando Lymphocytes/100 WBC (Bld) 18.3 % Critically low 20.5-60.0 [facility] Comment on above: Performed By: #### C ASA, LIVER #### [facility] [address] [address] [address] Meron Obando MANUAL DIFF REQ NO Normal [facility] Comment on above: Performed By: #### C ASA, LIVER #### [facility] [address] [address] [address] Meron Obando MCH (RBC) [Entitic mass] 30.7 pg Normal 26.7-34.0 [facility] Comment on above: Performed By: #### C ASA, LIVER #### [facility] [address] [address] [address] Meron Obando MCHC (RBC) [Mass/Vol] 32.3 g/dL Normal 29.9-35.2 [facility] Comment on above: Performed By: #### C ASA, LIVER #### [facility] [address] [address] [address] Meron Obando MCV (RBC) [Entitic vol] 95.0 fL Normal 81.0-99.0 [facility] Comment on above: Performed By: #### C ASA, LIVER #### [facility] [address] [place] [address] Dr. Meron Obando MONO # 1.0 103/ul Critically high 0.3-0.8 [facility] Comment on above: Performed By: #### C ASA, LIVER #### [facility] [address] [place] [address] Dr. Meron Obando Monocytes/100 WBC (Bld) 10.4 % Normal 1.7-12.0 [facility] Comment on above: Performed By: #### C ASA, LIVER #### [facility] [address] [place] [address] Dr. Meron Obando NEUT # 6.2 103/ul Normal 1.4-6.5 [facility] Comment on above: Performed By: #### C ASA, LIVER #### [facility] [address] [place] [address] Dr. Meron Obando Neutrophils/100 WBC (Bld) 67.5 % Normal 43.0-75.0 [facility] Comment on above: Performed By: #### C ASA, LIVER #### [facility] [address] [place] [address] Dr. Meron Obando Platelet mean volume (Bld) [Entitic vol] 10.8 fL Normal 9.5-13.5 [facility] Comment on above: Performed By: #### C ASA, LIVER #### [facility] [address] [place] [address] Dr. Meron Obando PLT 295 103/ul Normal 150-450 [facility] Comment on above: Performed By: #### C ASA, LIVER #### [facility] [address] [place] [address] Dr. Meron Obando RBC 5.05 106/ul Normal 4.20-5.40 [facility] Comment on above: Performed By: #### C ASA, LIVER #### [facility] [address] [place] [address] Dr. Meron Obando WBC 9.2 103/ul Normal 4.0-11.0 [facility] Comment on above: Performed By: #### C ASA, LIVER #### [facility] [address] [place] [address] Dr. Meron Obando CREATININEon 11-25-2021 Creatinine [Mass/Vol] 1.03 mg/dL Critically high 0.55-1.02 [facility] Comment on above: Performed By: #### S EDR #### [facility] [address] [place] [address] Dr. Meron Obando EGFR-AF AUSTRALIAN 39 mL/min/1.73m2 Critically low >=60 [facility] Comment on above: Performed By: #### S EDR #### [facility] [address] [place] [address] Dr. Meron Obando EGFR-NON AF AUSTRALIAN 32 mL/min/1.73m2 Critically low >=60 [facility] Comment on above: Performed By: #### S EDR #### [facility] [address] [place] [address] Dr. Meron Obando LIVER PROFILEon 11-25-2021 Albumin [Mass/Vol] 3.5 g/dL Normal 3.4-5.0 [facility] Comment on above: Performed By: #### S EDR #### [facility] [address] [place] [address] Dr. Meron Obando Albumin/Globulin [Mass ratio] 1.0 {ratio} Normal [facility] Comment on above: Performed By: #### S EDR #### [facility] [address] [place] [address] Dr. Meron Obando ALP [Catalytic activity/Vol] 135 U/L Critically high 46-116 [facility] Comment on above: Performed By: #### S EDR #### [facility] [address] [place] [address] Dr. Meron Obando ALT [Catalytic activity/Vol] 41 U/L Normal 14-59 [facility] Comment on above: Performed By: #### S EDR #### [facility] [address] [place] [address] Dr. Meron Obando AST [Catalytic activity/Vol] 39 U/L Critically high 15-37 [facility] Comment on above: Performed By: #### S EDR #### [facility] [address] [address] [address] Meron Obando BILI, CONJUGATED 0.1 mg/dL Normal 0.0-0.2 [facility] Comment on above: Performed By: #### S EDR #### [facility] [address] [address] [address] Meron Obando Bilirubin [Mass/Vol] 0.5 mg/dL Normal 0.2-1.0 [facility] Comment on above: Performed By: #### S EDR #### [facility] [address] [place] [address] Dr. Meron Obando Globulin (S) [Mass/Vol] 3.5 g/dL Normal [facility] Comment on above: Performed By: #### S EDR #### [facility] [address] [place] [address] Dr. Meron Obando Protein [Mass/Vol] 7.0 g/dL Normal 6.4-8.2 [facility] Comment on above: Performed By: #### S EDR #### [facility] [address] [place] [address] Dr. Meron Obando SED RATE WESTERGRENon 2021 SED RATE 11 mm/hr Normal <=30 [facility] Comment on above: Performed By: #### S EDR #### [facility] [address] [place] [address] Dr. Meron Obando CBC AUTO DIFFon 11-13-2021 BASO # 0.1 103/ul Normal 0.0-0.1 [facility] Comment on above: Performed By: #### C BC #### [facility] [address] [place] [address] Dr. Meron Obando Basophils/100 WBC (Bld) 0.8 % Normal 0.2-2.0 [facility] Comment on above: Performed By: #### C BC #### [facility] [address] [place] [address] Dr. Meron Obando EO # 0.2 103/ul Normal 0.0-0.7 [facility] Comment on above: Performed By: #### C BC #### [facility] [address] [place] [address] Dr. Meron Obando Eosinophils/100 WBC (Bld) 1.9 % Normal 0.9-7.0 [facility] Comment on above: Performed By: #### C BC #### [facility] [address] [place] [address] Dr. Meron Obando Erythrocyte distribution width (RBC) [Ratio] 14.4 % Normal 11.0-15.0 [facility] Comment on above: Performed By: #### C BC #### [facility] [address] [place] [address] Dr. Meron Obando Hematocrit (Bld) [Volume fraction] 48.9 % Critically high 36.0-48.0 [facility] Comment on above: Performed By: #### C BC #### [facility] [address] [place] [address] Dr. Meron Obando Hemoglobin (Bld) [Mass/Vol] 16.0 g/dL Normal 12.0-16.0 [facility] Comment on above: Performed By: #### C BC #### [facility] [address] [place] [address] Dr. Meron Obando IG # 0.03 10e3/ul Normal 0.00-0.03 [facility] Comment on above: Performed By: #### C BC #### [facility] [address] [place] [address] Dr. Meron Obando IG % 0.3 % Normal 0.0-0.5 [facility] Comment on above: Performed By: #### C BC #### [facility] [address] [place] [address] Dr. Meron Obando LYMPH # 2.5 103/ul Normal 1.2-3.8 [facility] Comment on above: Performed By: #### C BC #### [facility] [address] [place] [address] Dr. Meron Obando Lymphocytes/100 WBC (Bld) 24.8 % Normal 20.5-60.0 [facility] Comment on above: Performed By: #### C BC #### [facility] [address] [place] [address] Dr. Meron Obando MANUAL DIFF REQ NO Normal [facility] Comment on above: Performed By: #### C BC #### [facility] [address] [place] [address] Dr. Meron Obando MCH (RBC) [Entitic mass] 30.9 pg Normal 26.7-34.0 [facility] Comment on above: Performed By: #### C BC #### [facility] [address] [place] [address] Dr. Meron Obando MCHC (RBC) [Mass/Vol] 32.7 g/dL Normal 29.9-35.2 [facility] Comment on above: Performed By: #### C BC #### [facility] [address] [place] [address] Dr. Meron Obando MCV (RBC) [Entitic vol] 94.4 fL Normal 81.0-99.0 [facility] Comment on above: Performed By: #### C BC #### [facility] [address] [place] [address] Dr. Meron Obando MONO # 0.8 103/ul Normal 0.3-0.8 [facility] Comment on above: Performed By: #### C BC #### [facility] [address] [place] [address] Dr. Meron Obando Monocytes/100 WBC (Bld) 7.7 % Normal 1.7-12.0 [facility] Comment on above: Performed By: #### C BC #### [facility] [address] [place] [address] Dr. Meron Obando NEUT # 6.4 103/ul Normal 1.4-6.5 [facility] Comment on above: Performed By: #### C BC #### [facility] [address] [place] [address] Dr. Meron Obando Neutrophils/100 WBC (Bld) 64.5 % Normal 43.0-75.0 [facility] Comment on above: Performed By: #### C BC #### [facility] [address] [place] [address] Dr. Meron Obando Platelet mean volume (Bld) [Entitic vol] 11.1 fL Normal 9.5-13.5 [facility] Comment on above: Performed By: #### C BC #### [facility] [address] [place] [address] Dr. Meron Obando PLT 306 103/ul Normal 150-450 [facility] Comment on above: Performed By: #### C BC #### [facility] [address] [place] [address] Dr. Meron Obando RBC 5.18 106/ul Normal 4.20-5.40 [facility] Comment on above: Performed By: #### C BC #### [facility] [address] [place] [address] Dr. Meron Obando WBC 9.9 103/ul Normal 4.0-11.0 [facility] Comment on above: Performed By: #### C BC #### [facility] [address] [place] [address] Dr. Meron Obando CREATININEon 11-13-2021 Creatinine [Mass/Vol] 1.01 mg/dL Normal 0.55-1.02 [facility] Comment on above: Performed By: #### C ASA, LIVER #### [facility] [address] [place] [address] Dr. Meron Obando EGFR-AF AUSTRALIAN >60 Normal >=60 [facility] Comment on above: Performed By: #### C ASA, LIVER #### [facility] [address] [place] [address] Dr. Meron Obando EGFR-NON AF AUSTRALIAN 53 mL/min/1.73m2 Critically low >=60 [facility] Comment on above: Performed By: #### C ASA, LIVER #### [facility] [address] [place] [address] Dr. Meron Obando LIVER PROFILEon 11-13-2021 Albumin [Mass/Vol] 3.4 g/dL Normal 3.4-5.0 [facility] Comment on above: Performed By: #### S EDR #### [facility] [address] [place] [address] Dr. Meron Obando Albumin/Globulin [Mass ratio] 0.9 {ratio} Normal [facility] Comment on above: Performed By: #### S EDR #### [facility] [address] [address] [address] Meron Obando ALP [Catalytic activity/Vol] 126 U/L Critically high 46-116 [facility] Comment on above: Performed By: #### S EDR #### [facility] [address] [place] [address] Dr. Meron Obando ALT [Catalytic activity/Vol] 58 U/L Normal 14-59 [facility] Comment on above: Performed By: #### S EDR #### [facility] [address] [place] [address] Dr. Meron Obando AST [Catalytic activity/Vol] 55 U/L Critically high 15-37 [facility] Comment on above: Performed By: #### S EDR #### [facility] [address] [place] [address] Dr. Meron Obando BILI, CONJUGATED 0.1 mg/dL Normal 0.0-0.2 [facility] Comment on above: Performed By: #### S EDR #### [facility] [address] [place] [address] Dr. Meron Obando Bilirubin [Mass/Vol] 0.5 mg/dL Normal 0.2-1.0 [facility] Comment on above: Performed By: #### S EDR #### [facility] [address] [place] [address] Dr. Meron Obando Globulin (S) [Mass/Vol] 3.6 g/dL Normal [facility] Comment on above: Performed By: #### S EDR #### [facility] [address] [place] [address] Dr. Meron Obando Protein [Mass/Vol] 7.0 g/dL Normal 6.4-8.2 [facility] Comment on above: Performed By: #### S EDR #### [facility] [address] [place] [address] Dr. Meron Obando SED RATE WESTERGRENon 2021 SED RATE 13 mm/hr Normal <=30 [facility] Comment on above: Performed By: #### S EDR #### [facility] [address] [place] [address] Dr. Meron Obando CBC AUTO DIFFon 10-28-2021 BASO # 0.1 103/ul Normal 0.0-0.1 [facility] Comment on above: Performed By: #### C BC #### [facility] [address] [place] [address] Dr. Meron Obando Basophils/100 WBC (Bld) 1.1 % Normal 0.2-2.0 [facility] Comment on above: Performed By: #### C BC #### [facility] [address] [place] [address] Dr. Meron Obando EO # 0.2 103/ul Normal 0.0-0.7 [facility] Comment on above: Performed By: #### C BC #### [facility] [address] [place] [address] Dr. Meron Obando Eosinophils/100 WBC (Bld) 2.3 % Normal 0.9-7.0 [facility] Comment on above: Performed By: #### C BC #### [facility] [address] [place] [address] Dr. Meron Obando Erythrocyte distribution width (RBC) [Ratio] 13.8 % Normal 11.0-15.0 [facility] Comment on above: Performed By: #### C BC #### [facility] [address] [place] [address] Dr. Meron Obando Hematocrit (Bld) [Volume fraction] 46.7 % Normal 36.0-48.0 [facility] Comment on above: Performed By: #### C BC #### [facility] [address] [place] [address] Dr. Meron Obando Hemoglobin (Bld) [Mass/Vol] 15.1 g/dL Normal 12.0-16.0 [facility] Comment on above: Performed By: #### C BC #### [facility] [address] [place] [address] Dr. Meron Obando IG # 0.04 10e3/ul Critically high 0.00-0.03 [facility] Comment on above: Performed By: #### C BC #### [facility] [address] [place] [address] Dr. Meron Obando IG % 0.4 % Normal 0.0-0.5 [facility] Comment on above: Performed By: #### C BC #### [facility] [address] [place] [address] Dr. Meron Obando LYMPH # 1.8 103/ul Normal 1.2-3.8 [facility] Comment on above: Performed By: #### C BC #### [facility] [address] [place] [address] Dr. Meron Obando Lymphocytes/100 WBC (Bld) 18.7 % Critically low 20.5-60.0 [facility] Comment on above: Performed By: #### C BC #### [facility] [address] [place] [address] Dr. Meron Obando MANUAL DIFF REQ NO Normal [facility] Comment on above: Performed By: #### C BC #### [facility] [address] [place] [address] Dr. Meron Obando MCH (RBC) [Entitic mass] 30.5 pg Normal 26.7-34.0 [facility] Comment on above: Performed By: #### C BC #### [facility] [address] [place] [address] Dr. Meron Obando MCHC (RBC) [Mass/Vol] 32.3 g/dL Normal 29.9-35.2 [facility] Comment on above: Performed By: #### C BC #### [facility] [address] [place] [address] Dr. Meron Obando MCV (RBC) [Entitic vol] 94.3 fL Normal 81.0-99.0 [facility] Comment on above: Performed By: #### C BC #### [facility] [address] [place] [address] Dr. Meron Obando MONO # 1.1 103/ul Critically high 0.3-0.8 [facility] Comment on above: Performed By: #### C BC #### [facility] [address] [place] [address] Dr. Meron Obando Monocytes/100 WBC (Bld) 11.0 % Normal 1.7-12.0 [facility] Comment on above: Performed By: #### C BC #### [facility] [address] [place] [address] Dr. Meron Obando NEUT # 6.4 103/ul Normal 1.4-6.5 [facility] Comment on above: Performed By: #### C BC #### [facility] [address] [place] [address] Dr. Meron Obando Neutrophils/100 WBC (Bld) 66.5 % Normal 43.0-75.0 [facility] Comment on above: Performed By: #### C BC #### [facility] [address] [place] [address] Dr. Meron Obando Platelet mean volume (Bld) [Entitic vol] 11.1 fL Normal 9.5-13.5 [facility] Comment on above: Performed By: #### C BC #### [facility] [address] [place] [address] Dr. Meron Obando PLT 249 103/ul Normal 150-450 [facility] Comment on above: Performed By: #### C BC #### [facility] [address] [place], [place] [id number] Dr. Meron Obando RBC 4.95 106/ul Normal 4.20-5.40 [facility] Comment on above: Performed By: #### C BC #### [facility] [address] [place] [address] Dr. Meron Obando WBC 9.7 103/ul Normal 4.0-11.0 [facility] Comment on above: Performed By: #### C BC #### [facility] [address] [place] [address] Dr. Meron Obando CREATININEon 10-28-2021 Creatinine [Mass/Vol] 0.98 mg/dL Normal 0.55-1.02 [facility] Comment on above: Performed By: #### C ASA, LIVER #### [facility] [address] [place] [address] Dr. Meron Obando EGFR-AF AUSTRALIAN >60 Normal >=60 [facility] Comment on above: Performed By: #### C ASA, LIVER #### [facility] [address] [place] [address] Dr. Meron Obando EGFR-NON AF AUSTRALIAN 54 mL/min/1.73m2 Critically low >=60 [facility] Comment on above: Performed By: #### C ASA, LIVER #### [facility] [address] [place] [address] Dr. Meron Obando LIVER PROFILEon 10-28-2021 Albumin [Mass/Vol] 3.3 g/dL Critically low 3.4-5.0 [facility] Comment on above: Performed By: #### C ASA, LIVER #### [facility] [address] [place] [address] Dr. Meron Obando Albumin/Globulin [Mass ratio] 0.9 {ratio} Normal [facility] Comment on above: Performed By: #### C ASA, LIVER #### [facility] [address] [place] [address] Dr. Meron Obando ALP [Catalytic activity/Vol] 127 U/L Critically high 46-116 [facility] Comment on above: Performed By: #### C ASA, LIVER #### [facility] [address] [place] [address] Dr. Meron Obando ALT [Catalytic activity/Vol] 38 U/L Normal 14-59 [facility] Comment on above: Performed By: #### C ASA, LIVER #### [facility] [address] [place] [address] Dr. Meron Obando AST [Catalytic activity/Vol] 33 U/L Normal 15-37 [facility] Comment on above: Performed By: #### C ASA, LIVER #### [facility] [address] [place] [address] Dr. Meron Obando BILI, CONJUGATED 0.1 mg/dL Normal 0.0-0.2 [facility] Comment on above: Performed By: #### C ASA, LIVER #### [facility] [address] [place] [address] Dr. Meron Obando Bilirubin [Mass/Vol] 0.3 mg/dL Normal 0.2-1.0 [facility] Comment on above: Performed By: #### C ASA, LIVER #### [facility] [address] [place] [address] Dr. Meron Obando Globulin (S) [Mass/Vol] 3.7 g/dL Normal [facility] Comment on above: Performed By: #### C ASA, LIVER #### [facility] [address] [place] [address] Dr. Meron Obando Protein [Mass/Vol] 7.0 g/dL Normal 6.4-8.2 [facility] Comment on above: Performed By: #### C ASA, LIVER #### [facility] [address] [place] [address] Dr. Meron Obando SED RATE [facility] 2021 SED RATE 8 mm/hr Normal <=30 [facility] Comment on above: Performed By: #### S EDR #### [facility] [address] [place] [address] Dr. Meron Obando No Panel InformationOrdered By: Jan Solares on 10-09-2021 Hepatitis B Core Total Antibody Negative Negative [facility] Comment on above: Performed at: - [facility] [address] [id number] Sweat Band Separator: Guanaco Cui PhD, Phone: [phone] Q - CULTURE,URINE,ROUTINEon 05-07-2021 CULTURE, URINE, ROUTINE SEE NOTE Normal [facility] Comment on above: Order Comment: [facility] performed at: QPT, [facility], [address] [facility], [address] [facility], [place], [address], Secretary To Board Of Commissioners: Harsh Hopkins MD [facility] Collection Date/Time: [facility] Results Received Date/Time: [facility] Reported Date/Time: Result Comment: CULT URE, URINE, ROUTINE Micro Number: [id number] Test Status: Final Specimen Source: Urine Specimen Quality: Adequate Result: No Growth Performed By: #### 6 [id number] #### [facility] Default [address] [place] [address] Vital Signs Date Time Vital Sign Value Performing Clinician Facility 03-10-2024 14:14-0500 Body height 144.8 cm Boone Ewing MD Work Phone: [facility] 03-10-2024 14:14-0500 Body mass index (BMI) [Ratio] 22.07 kg/m2 Boone Ewing MD Work Phone: [facility] 03-10-2024 14:14-0500 Body temperature 97.11 [degF] Boone Ewing MD Work Phone: [facility] 03-10-2024 14:14-0500 Body weight 46.27 kg Boone Ewing MD Work Phone: [facility] 03-10-2024 14:14-0500 Diastolic blood pressure 60 mm[Hg] Boone Ewing MD Work Phone: [facility] 03-10-2024 14:14-0500 Heart rate 48 /min Boone Ewing MD Work Phone: [facility] 03-10-2024 14:14-0500 Respiratory rate 20 /min Boone Ewing MD Work Phone: [facility] 03-10-2024 14:14-0500 SaO2% (BldA) [Mass fraction] 97 % Boone Ewing MD Work Phone: [facility] 03-10-2024 14:14-0500 Systolic blood pressure 110 mm[Hg] Boone Ewing MD Work Phone: [facility] 03-02-2024 10:43-0500 Body height 148 cm Pfo 7 [facility] 03-02-2024 10:43-0500 Body mass index (BMI) [Ratio] 21.16 kg/m2 Pfo 7 [facility] 03-02-2024 10:43-0500 Body temperature 98.1 [degF] Pfo 7 [facility] 03-02-2024 10:43-0500 Body weight 46.36 kg Pfo 7 [facility] 03-02-2024 10:43-0500 Diastolic blood pressure 71 mm[Hg] Pfo 7 [facility] 03-02-2024 10:43-0500 Heart rate 60 /min Pfo 7 [facility] 03-02-2024 10:43-0500 Respiratory rate 18 /min Pfo 7 [facility] 03-02-2024 10:43-0500 SaO2% (BldA) [Mass fraction] 99 % Pfo 7 [facility] 03-02-2024 10:43-0500 Systolic blood pressure 148 mm[Hg] Pfo 7 [facility] 02-10-2024 10:45-0500 Diastolic blood pressure 68 mm[Hg] Pfo 7 [facility] 02-10-2024 10:45-0500 Heart rate 60 /min Pfo 7 [facility] 02-10-2024 10:45-0500 Respiratory rate 16 /min Pfo 7 [facility] 02-10-2024 10:45-0500 SaO2% (BldA) [Mass fraction] 96 % Pfo 7 [facility] 02-10-2024 10:45-0500 Systolic blood pressure 154 mm[Hg] Pfo 7 [facility] 02-10-2024 10:02-0500 Body height 148 cm Pfo 7 [facility] 02-10-2024 10:02-0500 Body mass index (BMI) [Ratio] 21.12 kg/m2 Pfo 7 [facility] 02-10-2024 10:02-0500 Body temperature 97.9 [degF] Pfo 7 [facility] 02-10-2024 10:02-0500 Body weight 46.27 kg Pfo 7 [facility] 01-22-2024 10:12-0400 Body height 148 cm Topher Cummings MD Work Phone: [facility] [employer] [facility] 01-22-2024 10:12-0400 Body mass index (BMI) [Ratio] 21.74 kg/m2 Topher Cummings MD Work Phone: [facility] [employer] [facility] 01-22-2024 10:12-0400 Body temperature 98.4 [degF] Topher Cummings MD Work Phone: [facility] [employer] [facility] 01-22-2024 10:12-0400 Body weight 47.63 kg Topher Cummings MD Work Phone: [facility] [employer] [facility] 01-22-2024 10:12-0400 Diastolic blood pressure 77 mm[Hg] Topher Cummings MD Work Phone: [facility] [employer] [facility] 01-22-2024 10:12-0400 Heart rate 71 /min Topher Cummings MD Work Phone: [facility] [employer] [facility] 01-22-2024 10:12-0400 Respiratory rate 16 /min Topher Cummings MD Work Phone: [facility] [employer] [facility] 01-22-2024 10:12-0400 SaO2% (BldA) [Mass fraction] 99 % Topher Cummings MD Work Phone: [facility] [employer] [facility] 01-22-2024 10:12-0400 Systolic blood pressure 172 mm[Hg] Topher Cummings MD Work Phone: [facility] [employer] [facility] 01-20-2024 10:38-0400 Body height 148 cm Pfo 7 [facility] [employer] [facility] 01-20-2024 10:38-0400 Body mass index (BMI) [Ratio] 21.79 kg/m2 Pfo 7 [facility] 01-20-2024 10:38-0400 Body temperature 97.7 [degF] Pfo 7 [facility] [employer] [facility] 01-20-2024 10:38-0400 Body weight 47.72 kg Pfo 7 [facility] 01-20-2024 10:38-0400 Diastolic blood pressure 66 mm[Hg] Pfo 7 [facility] 01-20-2024 10:38-0400 Heart rate 61 /min Pfo 7 [facility] 01-20-2024 10:38-0400 Respiratory rate 16 /min Pfo 7 [facility] 01-20-2024 10:38-0400 SaO2% (BldA) [Mass fraction] 98 % Pfo 7 [facility] 01-20-2024 10:38-0400 Systolic blood pressure 164 mm[Hg] Pfo 7 [facility] 04-10-2023 14:14-0500 Body height 152.4 cm Jan Smith MD Work Phone: [facility] 04-10-2023 14:14-0500 Body mass index (BMI) [Ratio] 21.87 kg/m2 Jan Smith MD Work Phone: [facility] 04-10-2023 14:14-0500 Body weight 50.8 kg Jan Smith MD Work Phone: [facility] 04-10-2023 14:14-0500 Diastolic blood pressure 80 mm[Hg] Jan Smith MD Work Phone: [facility] 04-10-2023 14:14-0500 Heart rate 84 /min Jan Smith MD Work Phone: [facility] [employer] [facility] 04-10-2023 14:14-0500 SaO2% (BldA) [Mass fraction] 91 % Jan Smith MD Work Phone: [facility] 04-10-2023 14:14-0500 Systolic blood pressure 130 mm[Hg] Jan Smith MD Work Phone: [facility] Encounters Encounter Date Encounter Type Care Provider Facility Start: 03-16-2024 End: 03-16-2024 ernesto Ewing Facility:[facility] Start: 03-10-2024 End: 03-10-2024 Bamboo flowsheet Boone Ewing MD Work Phone: [facility] Start: 03-10-2024 End: 03-10-2024 Bamboo flowsheet Boone Ewing MD Work Phone: [facility] Start: 03-10-2024 End: 03-10-2024 Office outpatient visit 25 minutes Boone Ewing MD Work Phone: [facility] Comment on above: Essential hypertensi on, benign (CMS/HCC) (Primary Dx); Invasive ductal carcinoma of breast, female, right (CMS/HCC); Chronic heart failure with preserved ejection fraction (HFpEF) (CMS/HCC); Degeneration of intervertebral disc of lumbar region with discogenic back pain and lower extremity pain; Rheumatoid arthritis involving multiple joints (CMS/HCC) Start: 03-02-2024 End: 03-02-2024 ambulatory Pfo Infusion Chair 7 Carey Hernandez [facility] On[facility] Comment on above: 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) (Primary Dx); Right breast cancer with T3 tumor, >5 cm in greatest dimension ([facility]-HCC) Start: 03-01-2024 End: 03-01-2024 ambulatory [facility] Start: 02-24-2024 End: 02-24-2024 Orders Only Topher Cummings MD Work Phone: [facility] Start: 02-11-2024 End: 02-11-2024 Refill Carin Brady DO Work Phone: [facility] Comment on above: Age-related osteopor osis without current pathological fracture (CMS/HCC) Start: 02-10-2024 End: 02-10-2024 ambulatory Pfo Infusion Chair 7 Carey Hernandez [facility] Comment on above: 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) (Primary Dx); Right breast cancer with T3 tumor, >5 cm in greatest dimension ([facility]-HCC) Start: 01-22-2024 End: 01-22-2024 ambulatory [facility] Start: 01-20-2024 End: 01-20-2024 ambulatory Pfo Infusion Chair 7 Carey Hernandez [facility] Comment on above: 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) (Primary Dx); Encounter for monitoring cardiotoxic drug therapy; Right breast cancer with T3 tumor, >5 cm in greatest dimension ([facility]-HCC) Start: 01-19-2024 End: 01-19-2024 ambulatory [facility] Start: 12-30-2023 End: 12-30-2023 ambulatory [facility] Start: 12-29-2023 End: 12-29-2023 ambulatory [facility] Start: 12-11-2023 End: 12-11-2023 ambulatory JAN Booker [facility] Start: 12-09-2023 End: 12-09-2023 ambulatory [facility] Start: 12-01-2023 End: 12-01-2023 ambulatory [facility] Start: 11-13-2023 End: 11-13-2023 ambulatory [facility] Start: 11-11-2023 End: 11-11-2023 ambulatory BOONE EWING Not Available Start: 11-03-2023 End: 11-03-[address] [facility] Work Phone: Start: 11-03-2023 End: 11-03-2023 Departed Referred MD Boone Ewing Work Phone: [facility] Start: 10-28-2023 End: 10-28-2023 ambulatory BOONE EWING Not Available Start: 10-02-2023 End: 10-02-2023 ambulatory [facility] Start: 09-22-2023 End: 09-22-2023 ambulatory BOONE EWING Not Available Start: 07-29-2023 End: 07-29-2023 ambulatory BOONE EWING Not Available Start: 07-23-2023 End: 07-23-2023 ambulatory SHAIKH ASHLEY Not Available Start: 07-09-2023 End: 07-09-2023 ambulatory [facility] Start: 06-03-2023 End: 06-03-2023 [facility] Start: 05-13-2023 End: 05-13-2023 ambulatory [facility] Start: 04-10-2023 End: 04-10-2023 Office outpatient visit 25 minutes Jan Smith MD Work Phone: [facility] Comment on above: 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); Dyslipidemia; Primary hypertension Start: 04-10-2023 End: 04-10-2023 ambulatory [facility] Start: 04-09-2023 Telephone encounter Toyin Bass [facility] Start: 03-23-2023 End: 03-23-2023 ambulatory BOONE EWING Not Available Start: 03-25-2022 End: 03-25-[address] BOONE EWING Facility: Start: 02-12-2022 End: 02-12-2022 ambulatory DO Carin G Jose Antonio Work Phone: [facility] Work Phone: Start: 02-12-2022 End: 02-12-2022 Patient encounter procedure DO Carin Jose Antonio Work Phone: [facility] [address] Start: 02-10-2022 End: 02-10-[address] BOONE EWING Facility:[facility] Start: 01-08-2022 End: 01-09-[address] JAN SOLARES Facility:[facility] Start: 12-12-2021 End: 12-12-[address] BOONE EWING Facility:[facility] Start: 12-10-2021 End: 01-04-[address] JAN SOLARES Facility:[facility] Start: 12-03-2021 End: 12-03-2021 Patient encounter procedure DO Carinkrystian Becerrae Work Phone: [facility] [address] Start: 11-13-2021 End: 12-04-[address] JAN SOLARES Facility:[facility] Start: 10-28-2021 End: 11-01-[address] JAN SOLARES Facility:[facility] Start: 10-09-2021 End: 10-09-2021 Patient encounter procedure DO Carin Jose Antonio Work Phone: [facility] [address] Procedures Date Procedure Procedure Detail Performing Clinician Start: 12-30-2023 Chemotherapy Chemotherapy JAN SOLARES Start: 04-10-2023 Follow-up visit Follow-up JAN SMITH Start: 04-10-2023 Ecg routine ecg w/least 12 lds w/i&r Jan Smith MD Work Phone: Start: 12-03-2021 Plain chest X-ray DO Carin Brady Work Phone: Start: 01-07-2021 Adult depression screening assessment Toyin Bass CMA Start: 08-30-2020 H/O: surgery S/P nasal septoplasty Toyin Bonner MA Start: 11-26-2018 History of coronary artery bypass grafting History of coronary artery bypass graft x 2 Toyin Bass CMA History of coronary artery bypass grafting History of coronary artery bypass graft x 2 Jan Smith MD Work Phone: Plan of Treatment Date Care Activity Detail Author Start: 01-21-2025 Adult BMI Screening Adult BMI Screening [facility] Start: 01-21-2025 Tobacco Screening Tobacco Screening [facility] Start: 01-19-2025 Fall Risk Screening Fall Risk Screening [facility] Start: 12-29-2024 Adult BMI Screening Adult BMI Screening [facility] Start: 12-29-2024 Tobacco Screening Tobacco Screening [facility] Start: 09-14-2024 End: 09-14-2024 Patient encounter procedure 09/14/2024 1:00 PM EDT [facility] [address] [place] [address] Boone Ewing MD [address] [place] [address] [facility] Start: 04-22-2024 End: 04-22-2024 Patient encounter procedure 04/22/2024 10:30 AM EST Office Visit [facility] [address] [place] [phone] Topher Cummings MD [address] [place] [address] [facility] Start: 04-15-2024 COVID-19 Vaccine ( season) COVID-19 Vaccine () [facility] Start: 04-12-2024 End: 04-12-2024 Patient encounter procedure 04/12/2024 1:00 PM EST Appointment [facility] - Cardiovascular [address] [place] [address] Topher Cummings MD [address] [place] [address] [facility] Start: 04-10-2024 Adult BMI Screening Adult BMI Screening [facility] Start: 04-10-2024 Tobacco Screening Tobacco Screening [facility] Start: 03-28-2024 End: 01-21-2025 US Breast - right limited Ultrasound breast limited right Imaging Routine HER2-positive carcinoma of right breast (CMS-HCC) Right breast cancer with T3 tumor, >5 cm in greatest dimension ([facility]-HCC) Expected: 03/28/2024, Expires: 01/21/2025 [employer] Work Phone: Comment on above: Expected: 03/28/2024, Expires: Start: 03-23-2024 End: 03-23-2024 ambulatory 03/23/2024 11:00 AM EST Infusion Carey L Daivd [facility] - Medical Oncology [address] [place] [phone] Carey L David [facility] - [facility] Oncology Start: 03-22-2024 End: 03-22-2024 Patient encounter procedure 03/22/2024 9:30 AM EST Appointment [facility] [address] [place] [phone] [facility] Start: 03-10-2024 End: 03-10-2024 Patient encounter procedure 03/10/2024 2:00 PM EST Office Visit [facility] [address] [place] [address] Boone Ewing MD [address] [place] [address] [facility] Start: 03-07-2024 End: 01-19-2025 Echo complete W/Strain Imaging Echo complete W/Strain Imaging Echocardiography Routine HER2-positive carcinoma of right breast (CMS-HCC) Encounter for monitoring cardiotoxic drug therapy Expected: 03/07/2024, Expires: 01/19/2025 [employer] Work Phone: Comment on above: Expected: 03/07/2024, Expires: Start: 03-02-2024 End: 03-02-2024 ambulatory 03/02/2024 10:30 AM EST Infusion Carey Pereira David [facility] - Medical Oncology [address] [place] [phone] [facility] Start: 03-01-2024 End: 03-01-2024 Patient encounter procedure 03/01/2024 10:30 AM EST Appointment [facility] [address] [place] [address] [facility] Start: 02-10-2024 End: 02-10-2024 ambulatory 02/10/2024 10:00 AM EST Infusion Carey Hernandez [facility] - Medical Oncology [address] [place] [address] Carey Hernandez [facility] Start: 02-09-2024 End: 02-09-2024 Patient encounter procedure 02/09/2024 10:00 AM EST Appointment [facility] [address] [place] [address] [facility] Start: 01-22-2024 End: 01-22-2024 Patient encounter procedure 01/22/2024 10:15 AM EDT Office Visit Carey Hernandez [facility] - Medical Oncology [address] [place] [phone] Topher Cummings MD [address] [place] [address] Carey Hernandez [facility] - [facility] On[facility] Start: 12-06-2023 COVID-19 Vaccine ( season) COVID-19 Vaccine ( season) [facility] Start: 12-06-2023 COVID-19 Vaccine ( season) COVID-19 Vaccine ( season) [facility] Start: 12-06-2023 Influenza vaccination Influenza Vaccine [facility] Start: 11-03-2023 [facility] Start: 08-08-2023 Adult BMI Screening Adult BMI Screening [facility] Start: 04-10-2023 End: 04-10-2023 Patient encounter procedure 04/10/2023 2:30 PM EST Office Visit [facility] [address] [place] [address] Jan Smith MD [address] [place] [address] [facility] Start: 12-23-2022 Tobacco Screening Tobacco Screening [facility] Start: 07-08-2022 Medicare Annual Wellness (AWV) Medicare Annual Wellness (AWV) [facility] Start: 01-07-2022 Depression Screening Depression Screening [facility] Start: 02-17-2020 Administration of varicella zoster vaccine [facility] Start: 05-01-2012 Pneumococcal Vaccine: 65+ Years (2 of 2 - PCV) Pneumococcal Vaccine: 65+ Years (2 of 2 - PCV) [facility] Start: 2005 Fall Risk Screening Fall Risk Screening [facility] Start: 1959 DTaP,Tdap and Td Vaccines (1 - Tdap) DTaP,Tdap and Td Vaccines (1 - Tdap) [facility] Start: 1952 Depression Screening Depression Screening [facility] Start: 1940 Medicare Annual Wellness Visit Medicare Annual Wellness Visit [facility] Hepatitis B core antibody measurement [facility] Work Phone: Immunizations Immunization Date Immunization Notes Care Provider Fa cility 01-13-2023 influenza virus vaccine, unspecified formulation Pfo 7 [facility] 05-24-2020 COVID-19, mRNA, LNP- S, PF, 100mcg/0.5mL Dose Toyin Bass [facility] 04-27-2020 COVID-19, mRNA, LNP- S, PF, 100mcg/0.5mL Dose Toyin Bass [facility] 12-23-2019 zoster vaccine, unspecified formulation Toyin Bass [facility] Payers Date Payer Category Payer Self-pay [id number] 2022 Private Health Insurance [employer] [id number] 2011 Managed Care Other (unspecified) [employer] [id number] 2011 Unknown [id number] 2005 Medicare [id number] 1959 Medicare [id number] 1959 Unknown [id number] 1940 Unknown [id number] 2.16.840.1.121845.3.579 .2.593 1940 Unknown [id number] 2.16.840.1.569701.3.579 .2.593 1940 Unknown [id number] 2.16.840.1.815259.3.579 .2.593 1940 Unknown [id number] 2.16.840.1.227585.3.579 .2.593 1940 Unknown [id number] 2.16.840.1.184829.3.579 .2.593 1940 Unknown [id number] 2.16.840.1.586168.3.579 .2.593 1940 Unknown [id number] 2.16.840.1.512702.3.579 .2.593 1940 Unknown [id number] 2.16.840.1.755954.3.579 .2.1259 1940 Unknown [id number] 2.16.840.1.448960.3.579 .2.1259 1940 Unknown [id number] 2.16.840.1.706023.3.579 .2.1259 1940 Unknown [id number] 2.16.840.1.177302.3.579 .2.1259 1940 Unknown [id number] 2.16.840.1.710521.3.579 .2.1259 1940 Unknown [id number] 2.16.840.1.472142.3.579 .2.1259 1940 Unknown [id number] 2.16.840.1.934542.3.579 .2.1259 1940 Unknown [id number] 2.16.840.1.069530.3.579 .2.1286 1940 Unknown [id number] 2.16.840.1.464381.3.579 .2.1286 1940 Unknown [id number] 2.16.840.1.509876.3.579 .2.1286 1940 Unknown [id number] 2.16.840.1.703034.3.579 .2.1286 1940 Unknown [id number] 2.16.840.1.257340.3.579 .2.1285 1940 Unknown [id number] 2.16.840.1.628919.3.579 .2.1285 1940 Unknown [id number] 2.16.840.1.702466.3.579 .2.1285 1940 Unknown [id number] 2.16.840.1.669959.3.579 .2.1285 1940 Unknown [id number] 2.16.840.1.383817.3.579 .2.1285 1940 Unknown [id number] 2.16.840.1.856136.3.579 .2.1285 1940 Unknown [id number] 2.16840.1.131244.3.579 .2.1285 1940 Unknown [id number] 2.16840.1.640935.3.579 .2.1285 1940 Unknown [id number] 2.16840.1.428276.3.579 .2.1285 1940 Unknown [id number] 2.16840.1.091357.3.579 .2.1285 1940 Unknown [id number] 2.16840.1.176621.3.579 .2.1285 1940 Unknown [id number] 2.16840.1.254631.3.579 .2.1285 1940 Unknown [id number] 2.16840.1.625605.3.579 .2.1286 Unknown [id number] 2.16840.1.041695.3.579 .2.531 Unknown [id number] 2.16840.1.408627.3.579 .2.531 Social History Date Type Detail Facility Tobacco smoking stat [facility] Unknown if ever smoked [facility] Work Phone: Start: 1940 Sex Assigned At Female F [facility] Start: 04-16-2017 End: 06-03-2023 Tobacco smoking status [facility] [facility] Work Phone: Start: 04-16-2017 End: 06-03-2023 Tobacco use and exposure Smokeless tobacco non-user [facility] Start: 12-23-2021 End: 01-22-2024 Alcohol intake Current drinker of alcohol (finding) [facility] Start: 11-25-2018 End: 07-23-2023 History of Social function [facility] Start: 11-25-2018 End: 07-23-2023 Social connection and isolation panel [facility] Frequency of Communication with Friends and Family More than three times a week [facility] Start: 11-25-2018 Education 12 [facility] Start: 10-21-2019 Alcohol Comment rarely [facility] Start: 11-09-2014 Sex Female (finding) [facility] Start: 11-18-2023 End: 03-10-2024 Alcoholic beverage intake Lifetime non-drinker (finding) [facility] Start: 04-10-2023 Alcohol Comment caffeine intak e : 1-2 cups per day [facility] Start: 1940 Sex assigned at Not on file N [facility] NEGATED: Highlighted rowStart: NINF History of tobacco use Passive smoker [facility] Clinical Notes 04-09-2023 to 03-10-2024 Boone Ewing MD - 03/10/2024 2:43 PM Felisha Ewing MD - 03/10/2024 2:43 PM Felisha Ewing MD - 03/10/2024 2:43 PM Felisha Ewing MD - 03/10/2024 2:43 PM ESTPatient Instructions Note Date & Type Note Facility 03-10-2024 History of Presen t illness Narrative Associated Problem(s): Invasive ductal carcinoma of breast, female, right (CMS/HCC) Tolerating chemo and follow with specialists. Associated Problem(s): Essential hypertension, benign (CMS/HCC) BP controlled and monitor PRN. Associated Problem(s): DDD (degenerative disc disease), lumbar Pain improved after therapy and continue exercises. Use OTC PRN. Associated Problem(s): Chronic heart failure with preserved ejection fraction (HFpEF) (CMS/HCC) No edema and monitor. Elevate legs PRN. Associated Problem(s): Rheumatoid arthritis involving multiple joints (CMS/HCC) Pain stable and follow with rheumatology. Subjective Patient ID: Angelika Martins is a 83 y.o. female who presents for Follow-up (6m/Fell on Thursday, worried about concussion). Follow up HTN, breast cancer, back pain, and RA. Patient stable today. Started chemotherapy for breast cancer and tolerating okay. C/o increased fatigue and tired all the time. Frequent diarrhea. Repeat scan in April and will decide if need surgical resection. Checking BP PRN and typically controlled. BP normal today. Taking medication daily and tolerating without side effects. Back pain stable. Mild pain in low back and across top hips. No radiation into gluteal region or down legs. Pain increased with walking and standing. Not able to walk or stand for long periods. Using OTC and helps. RA stable. Following with rheumatology and stable on medication. No edema in legs and no SOB. Review of Systems Respiratory: Negative for cough, shortness of breath and wheezing. Cardiovascular: Negative for chest pain and palpitations. Gastrointestinal: Negative for abdominal pain, diarrhea, nausea and vomiting. Genitourinary: Negative for dysuria. Objective Physical Exam Constitutional: General: She is not in acute distress. Appearance: Normal appearance. HENT: Head: Normocephalic. Right Ear: Tympanic membrane normal. Left Ear: Tympanic membrane normal. Eyes: Extraocular Movements: Extraocular movements intact. Pupils: Pupils are equal, round, and reactive to light. Cardiovascular: Rate and Rhythm: Normal rate and regular rhythm. Heart sounds: No murmur heard. No friction rub. No gallop. Pulmonary: Effort: Pulmonary effort is normal. Breath sounds: Normal breath sounds. No wheezing, rhonchi or rales. Abdominal: General: Bowel sounds are normal. There is no distension. Palpations: Abdomen is soft. Tenderness: There is no abdominal tenderness. There is no guarding or rebound. Musculoskeletal: Cervical back: Neck supple. Right lower leg: No edema. Left lower leg: No edema. Neurological: Mental Status: She is alert. Assessment/Plan Problem List Items Addressed This Visit Essential hypertension, benign (CMS/HCC) - Primary BP controlled and monitor PRN. Rheumatoid arthritis involving multiple joints (CMS/HCC) Pain stable and follow with rheumatology. DDD (degenerative disc disease), lumbar Pain improved after therapy and continue exercises. Use OTC PRN. Invasive ductal carcinoma of breast, female, right (CMS/HCC) Tolerating chemo and follow with specialists. Chronic heart failure with preserved ejection fraction (HFpEF) (CMS/HCC) No edema and monitor. Elevate legs PRN. documented in this encounter [facility] 03-02-2024 History of Presen t illness Narrative Pt here for phesgo injection. Phesgo injection given SQ to left thigh over 8 minutes. Pt remained on unit for 15 minute observation and denies any complaints. VS stable. Treatment calendar provided and v/u of upcoming appt's, labs, and dc instruction. Dc'd in stable condition with daughter documented in this encounter [facility] 02-10-2024 History of Presen t illness Narrative Patient is here for phesgo injection. She is tolerating it okay. Denies any nausea reports fatigue, and gets diarrhea a few days after injection and immodium is effective. Denies diarrhea today and has not had any for a few days. Phesgo injection given SQ to left thigh over 5 minutes. Pt remained on unit for 15 minute observation and denies any complaints. Treatment calendar provided and v/u of upcoming appt's/labs. Dc'd in stable condition. documented in this encounter [facility] 01-22-2024 History of Presen t illness Narrative Patient is here for follow up with Dr. Cummings. Orders received for Echo every 3 months. Breast right side ultrasound end of 03/2024, [facility], print out orders. F/u in mid 04/2024. Patient given calendar, verbalized understanding of future appointments. documented in this encounter [facility] 01-22-2024 History of Presen t illness Narrative Images from the original note were not included. [facility] 01/22/24 Angelika Martins is a 83 y.o. year old female seen today in the oncology clinic. No chief complaint on file. History of Present Illness: Mrs. Martins is a 83 y.o. female who recently underwent open-heart surgery with bypass 11/03/18. Before surgery her hemoglobin was unremarkable, after surgery her hemoglobin dropped down gradually to 8.8 upon discharge. 2 weeks later her hemoglobin dropped down to 7.2, she received 1 unit of blood. Her iron study showed iron deficiency with iron saturation of only 4%. Patient has been taking oral iron supplement without improvement. She received injectafer 12/2018, tolerated very well. Triple positive breast cancer diagnosed 12/2023. Phesgo 12/2023- Interval history: The patient recently noted a lump in her right breast. Ultrasound evaluation demonstrates a heterogeneous lobular masslike area within the upper-outer quadrant, 10 o'clock position 4.9 cm from the nipple measuring 6.5 x 5.4 x 2.2 cm. She underwent 3 doses of phesgo treatment so far, tolerated well. She does have some diarrhea and Imodium helped. She only takes 1 tablet as needed. Denies any blood in the stool, no tarry stool. No shortness of breath during exertion. Denies any significant bone pains she is wheelchair-bound due to severe arthritis. After 3 doses of treatment, her right breast mass is less painful. She lives with her at home. She is accompanied by her daughter. 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 CABGX2/LIMAX1/SVGX1/EVH LEFT UPPER LEG/MINA N/A 11/03/2018 Performed by Kel Sherman MD at [facility] Cardiac catheterization N/A 11/01/2018 Performed by Kalin Hamm MD at [facility]ATH [facility] Coronary angiogram and left ventricular gram/pressure N/A 11/01/2018 Performed by Kalin Hamm MD at [facility]ATH [facility] HYSTERECTOMY 1986 complete INJECTION MEDIAL BRANCH NERVE BLOCK: right C34 45 56mbb Right 09/07/2017 Performed by Kel Serna MD at [facility] INJECTION MEDIAL BRANCH NERVE BLOCK: right C34 45 56mbb Right 07/31/2017 Performed by Kel Serna MD at [facility] RADIO FREQUENCY ABLATION: right C34 45 56 Right 06/21/2018 Performed by Kel Srena MD at [facility] RADIOFREQUENCY ABLATION SPINAL: right C34 45 56rfa Right 09/25/2017 Performed by Kel Serna MD at [facility] RADIOFREQUENCY TURBINATE NASAL Bilateral 08/23/2020 Performed by Eddie Santana MD PhD at [facility] SEPTOPLASTY Circumferential 08/23/2020 Performed by Eddie Santana MD PhD at [facility] TONSILLECTOMY TUBAL LIGATION Family History Problem Relation Age of Onset Heart disease Mother Thyroid disease Mother Hypertension Mother Cancer Father Esophageal Diabetes Daughter Hypertension Daughter Breast cancer Neg Hx Social History Socioeconomic History Marital status: Highest education level: 12th grade Tobacco Use Smoking status: Never Smokeless tobacco: Never Vaping Use Vaping status: Never Used Substance and Sexual Activity Alcohol use: Yes Comment: rarely Drug use: No Sexual activity: Defer Other Topics Concern Caffeine Use Yes Comment: 2 cups of coffee in the morning Social Drivers of Health Financial Resource Strain: Low Risk (11/25/2018) Overall Financial Resource Strain (CARDIA) Difficulty of Paying Living Expenses: Not hard at all Food Insecurity: No Food Insecurity (12/30/2023) Hunger Screening Food Insecurity - Worry: Never True Food Insecurity - Inability: Never True Transportation Needs: No Transportation Needs (11/25/2018) PRAPARE - Transportation Lack of Transportation (Medical): No Lack of Transportation (Non-Medical): No Physical Activity: Inactive (11/25/2018) Exercise Vital Sign Days of Exercise per Week: 0 days Minutes of Exercise per Session: 0 min Stress: Stress Concern Present (11/25/2018) [place] [employer] - Occupational Stress Questionnaire Feeling of Stress : To some extent Social Connections: Moderately Integrated (11/25/2018) Social Connection and Isolation Panel [NHANES] Frequency of Communication with Friends and Family: More than three times a week Frequency of Social Gatherings with Friends and Family: Twice a week Attends [employer] Services: More than 4 times per year Active Member of Clubs or Organizations: No Attends Club or Organization Meetings: Never Marital Status: Interpersonal Safety: Not At Risk (11/25/2018) Humiliation, Afraid, Rape, and Kick questionnaire Fear of Current or Ex-Partner: No Emotionally Abused: No Physically Abused: No Sexually Abused: No Allergies Allergen Reactions Amoxicillin Diarrhea Medication List Accurate as of January 22, 2024 11:26 AM. If you have any questions, ask your nurse or doctor. Medications Continued This Visit acetaminophen 650 mg 8 hr tablet Refills: 0 Dose: 650 mg Commonly known as: TYLENOL ARTHRITIS alendronate 70 mg tablet Refills: 1 Dose: 70 mg Commonly known as: FOSAMAX amLODIPine 5 mg tablet Refills: 1 Dose: 5 mg Commonly known as: NORVASC aspirin 81 mg Quantity: 30 tablet Refills: 11 Dose: 81 mg Signed by: Dr. Tayo Flores MD atorvastatin 80 mg tablet Refills: 1 Dose: 80 mg Commonly known as: LIPITOR calcium carbonate-vitamin D3 500 mg(1,250mg) -200 units per tablet Refills: 0 Dose: 1 tablet Commonly known as: OSCAL 500 + D cholecalciferol 1,000 units tablet Refills: 0 Dose: 1,000 Units ciprofloxacin HCl 500 mg tablet Refills: 0 Dose: 500 mg Commonly known as: CIPRO cranberry 500 mg capsule Refills: 0 famotidine 20 mg tablet Refills: 3 Dose: 20 mg Commonly known as: PEPCID leflunomide 20 mg tablet Refills: 0 Dose: 20 mg Commonly known as: ARAVA letrozole 2.5 mg chemo tablet Quantity: 90 tablet Refills: 3 For diagnoses: Right breast cancer with T3 tumor, >5 cm in greatest dimension ([facility]) Dose: 2.5 mg Signed by: Topher Cummings 2.5 mg, oral, Daily Commonly known as: FEMARA levothyroxine 25 MCG tablet Refills: 3 Dose: 25 mcg Commonly known as: SYNTHROID, LEVOTHROID metoprolol succinate XL 100 mg 24 hr tablet Quantity: 90 tablet Refills: 3 Signed by: RALEIGH Galeas TAKE 1 TABLET BY MOUTH IN THE MORNING. NEED APPT FOR ANY FURTHER REFILLS. Commonly known as: TOPROL XL jhjfzrwh-kyjy-ZL-calcium &mins 9 mg iron-400 mcg tablet Refills: 0 Dose: 1 tablet Commonly known as: THERAGRAN-M ondansetron 8 mg tablet Quantity: 30 tablet Refills: 2 Dose: 8 mg Signed by: Topher Cummings 8 mg, oral, Every 8 hours PRN Commonly known as: ZOFRAN oxybutynin XL 10 mg 24 hr tablet Refills: 0 Dose: 10 mg Commonly known as: DITROPAN-XL Review of Symptoms: Review of Systems Constitutional: Positive for fatigue. Respiratory: Positive for shortness of breath. Cardiovascular: Positive for palpitations. All other systems reviewed and are negative. ECO- Symptomatic; in bed >50% of the day Physical Exam: General: Chronic ill appearing, in no acute distress. Vitals: BP 172/77 Pulse 71 Temp 36.9 C (98.4 F) (Oral) Resp 16 Ht 148 cm (4' 10.27 ) Wt 47.6 kg (105 lb) SpO2 99% BMI 21.74 kg/m Body mass index is 21.74 kg/m . Eyes: No icterus, no conjuctival erythema ENT: Pharyngeal mucosa was moist without exudate and inflammation or ulcerations. Tongue was midline and appeared normal.Gums were unremarkable. Lymph nodes: No palpable adenopathy Neck: Supple. There were no masses, tenderness. Trachea was midline. Respiratory: Respirations were non-labored. Lungs were clear to auscultation. There was no dullness to percussion. Cardiac: Regular rate and rhythm, S1 and S2 sounds were normal. There were no rubs or gallops. Abdomen: Soft, non-tender, Nondistended. Bowel sounds audible in all four quadrants. There were no palpable masses. The liver and spleen were not enlarged. Extremities: There was no clubbing, Cyanosis, edema. Skin: There was no obvious rashes, bruising or ecchymosis. Incision in mid chest is healing well. No signs of infection. Back exam: No palpable tenderness was appreciated. Neurologic: There was no unilateral weakness. Mood and affect: Normal. Breast exam: Right-sided breast lesion getting smaller less painful and softer. The nipple retraction is getting better too. No palpable right axilla adenopathy. Recent Imaging: X-ray Chest 2 Views Result Date: 11/01/2018 Narrative: Preop cardiac surgery. Hypertension. CHEST 2 VIEWS: Two views compared 10/29/2018, redemonstrating moderate retrocardiac hiatal hernia, appears larger than on prior chest x-rays, was first seen on chest x-ray 10/15/2009. Minimal subsegmental atelectasis at both lung bases laterally. Lungs otherwise clear. Cardiac silhouette and pulmonary vasculature are unremarkable. IMPRESSION: * Moderate retrocardiac hiatal hernia, appears larger than on prior chest x-rays. * Probable minimal atelectasis at lung bases laterally. * Otherwise negative chest X-ray. No acute cardiopulmonary findings are evident. Finalized by Juan Green MD on 11/01/2018 2:44 PM X-ray Chest 1 View Result Date: 11/06/2018 Narrative: History: Evaluate effusion Exam/Technique: AP chest upright Comparison: 11/05/2018. Findings: Sternotomy wires. Heart size enlarged. Left midzone atelectasis. Right-sided central line with the tip in SVC. IMPRESSION: As above. Finalized by Rebel Moreno MD on 11/06/2018 5:57 AM X-ray Chest 1 View Result Date: 11/05/2018 Narrative: Portable chest: HISTORY: Dyspnea. Single view of the chest was obtained. Chest tubes noted. There is a hiatal hernia. Central line tip is the region of the SVC. There is no obvious pneumothorax. The osseous structures appear unchanged. IMPRESSION: Stable exam. Finalized by Guanaco Chatterjee MD on 11/05/2018 4:56 AM X-ray Chest 1 View Result Date: 11/04/2018 Narrative: Portable chest: HISTORY: Dyspnea. Single view of the chest was obtained. There is a large hiatal hernia. Cardiac silhouette is somewhat prominent. No pneumothorax is seen. Resident line tip is the region of the SVC. Pulmonary vasculature is stable. IMPRESSION: Large hiatal hernia. Finalized by Guanaco Chatterjee MD on 11/04/2018 2:43 AM X-ray Chest 1 View Result Date: 11/03/2018 Narrative: History: Post cardiac surgical changes and intubation Exam/Technique: Single AP view of the chest was obtained Comparison: Preoperative x-ray 11/01/2018 Findings: Endotracheal tube tip is in satisfactory position above the makayla. Right side the central venous catheter tip is in satisfactory position at the SVC An enteric tube is coiled backwards cephalically with the tip in the distal esophagus. Catheter reposition is highly advised. Mediastinal and left-sided chest tubes are in place with minimal left basilar airspace disease and effusion. There is no gross pneumothorax or mediastinal shift. IMPRESSION: Enteric tube is coiled backwards with the tip in the esophagus. Catheter reposition is highly advised. THIS REPORT CONTAINS A SIGNIFICANT RESULT AND/OR RECOMMENDATION, WHICH REQUIRES THE ATTENTION OF THE LICENSED CAREGIVER RESPONSIBLE FOR THIS PATIENT. THEREFORE, I SPECIFICALLY DESIGNATED THIS REPORT TO BE TELEPHONED BY THE RADIOLOGY DEPARTMENT. Finalized by Sathya Dove MD on 11/03/2018 12:38 PM X-ray Chest 1 View Result Date: 10/29/2018 Narrative: CHEST 1 VIEW HISTORY: Shortness of breath COMPARISON: 10/29/2018 FINDINGS: Large hiatal hernia. No focal airspace disease, pulmonary edema, pleural effusions, or pneumothorax. Normal cardiomediastinal silhouette. IMPRESSION: 1. No acute cardiopulmonary disease. 2. Large hiatal hernia. Finalized by Patrice Orr MD on 10/29/2018 2:28 PM X-ray Chest 1 View Result Date: 10/29/2018 Narrative: History: Chest pain and shortness of breath Chest Xray One view study. Comparison: May 28, 2011 Findings: Lungs are clear. Cardiac silhouette and pulmonary vasculature are stable. No focal consolidative airspace disease, pneumothorax, or pleural effusion is appreciated. No free air beneath the diaphragm is noted. No acute bony abnormality. Impression: No acute process. Finalized by Tatiana Burris MD on 10/29/2018 12:16 PM Recent Labs: Recent Results (from the past 2 weeks) Comprehensive metabolic panel Collection Time: 01/19/24 10:14 AM Result Value Ref Range Sodium 140 134 - 146 mmol/L Potassium, Bld 3.6 3.5 - 5.0 mmol/L Chloride 106 98 - 109 mmol/L CO2 25 22 - 32 mmol/L Anion gap 9 5 - 15 mmol/L BUN 14 5 - 27 mg/dL Creatinine 0.80 0.40 - 1.00 mg/dL Glucose 112 (H) 65 - 99 mg/dL Calcium 9.3 8.5 - 10.5 mg/dL Total Protein 6.2 6.0 - 8.0 g/dL Albumin 3.6 3.2 - 5.3 g/dL Alkaline Phosphatase 89 39 - 130 U/L AST 31 0 - 41 U/L ALT 19 0 - 31 U/L Total bilirubin 0.4 0.3 - 1.2 mg/dL eGFR (CKD-EPI)non-race dependent 73 >59 ml/min/1.73sq.m CBC auto differential Collection Time: 01/19/24 10:14 AM Result Value Ref Range White Blood Cells 6.3 4.0 - 11.0 X10E9/L RBC count 4.05 3.80 - 5.20 X10E12/L Hemoglobin 13.3 11.7 - 15.5 g/dL Hematocrit 38.7 35 - 47 % MCV 96 80 - 100 fL MCH 32.8 27 - 34 pg MCHC 34.3 32 - 36 g/dL RDW 13.5 11.5 - 15.0 % Platelets 264 150 - 450 X10E9/L MPV 9.7 7 - 12 fL % neutrophils 58.9 % % lymphocytes 17.8 % % monocytes 11.0 % % eosinophils 10.1 % % Basophils 2.2 % Neutrophils Absolute (A) 3.7 1.5 - 6.6 X10E9/L Lymphocytes Absolute 1.1 1.0 - 3.5 X10E9/L Monocytes Absolute 0.7 0 - 0.9 X10E9/L Eosinophils Absolute 0.6 (H) 0.0 - 0.4 X10E9/L Basophils Absolute 0.1 0.0 - 0.2 X10E9/L Diagnosis Problem list: Problem List Items Addressed This Visit Other Right breast cancer with T3 tumor, >5 cm in greatest dimension ([facility]) HER2-positive carcinoma of right breast ([facility]) - Primary Impression: Iron deficiency anemia, not responding to oral iron supplement Right-sided breast cancer, triple positive Plan: I reviewed the patient's final path with her and her daughter in details. 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 14 mm in greatest dimension. There is a low-grade solid type in Situ carcinoma in the background. Pt's results are: triple positive. She is not a very good surgical candidate per Daughter's discussion with Dr. Denny. I recommend femara plus phesgo. The patient has 3 doses of so far, clinically showing improvement with smaller mass, softer lesion and less pain in the right breast. Echo every 3 months. Breast right side ultrasound end of 03/2024, [facility], print out orders. F/u in mid 04/2024 Advise patient continue to use antiemetics and Imodium to control side effects from phesgo. Topher Cummings M.D. [facility] [address] [place] [address] Topher Cummings MD Please note that portions of this note were generated using voice recognition happyview dictation software. Although every effort was made to ensure the accuracy of this automated range conservationist, some errors in range conservationist may have occurred. CC: Patient Care Team: Boone Ewing MD as PCP - General (Family Medicine) Topher Cummings MD as Consulting Physician (Hematology) Tayo Flores MD as Consulting Physician (Cardiology) PCP:BOONE EWING Referring MD: Boone Ewing MD [facility] Inst[facility] Topher Cummings MD - 01/22/2024 10:15 AM EDT Echo every 3 months. Breast right side ultrasound end of 03/2024, [facility], print out orders. F/u in mid 04/2024 documented in this encounter [facility] 01-20-2024 History of Presen t illness Narrative Patient is here for phesgo injection. She is tolerating it okay. Has got some slight nausea, script sent for zofran. She gets diarrhea and immodium is effective. She has not had any since Thursday night. Phesgo injection given SQ to right thigh over 5 minutes. Pt remained on unit for 15 minute observation and denies any complaints. Treatment calendar provided and v/u of upcoming appt's, labs, and dc instruction. Dc'd in stable condition. [facility] 04-10-2023 History of Presen t illness Narrative Angelika Martins Date of visit: 04/10/2023 Date of : 1940 Age: 83 y.o. Patient Active Problem List Diagnosis Cervical spondylosis without myelopathy Iron deficiency anemia Coronary artery disease involving [place] coronary artery of [place] heart History of coronary artery bypass graft [...] FOR ANY FURTHER REFILLS. 90 tablet 3 bbuctuxb-itaf-TL-calcium &mins (THERAGRAN-M) 9 mg iron-400 mcg tablet [...] Full dose Tues, Th, Sat, Sun (2.5mg Mon, Wed, Thu) sod cbrlg-mrpamp-kbncfb bottle (NEILMED SINUS RINSE COMPLETE) packet with [...] palpitations. 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 CABGX2/LIMAX1/SVGX1/EVH LEFT UPPER LEG/MINA N/A 11/03/2018 Performed by Kel Sherman MD at [facility] Cardiac catheterization N/A 11/01/2018 Performed by Kalin Hamm MD at [facility] Coronary angiogram and left ventricular gram/pressure N/A 11/01/2018 Performed by Kalin Hamm MD at [facility] HYSTERECTOMY 1986 complete INJECTION MEDIAL BRANCH NERVE BLOCK: right C34 45 56mbb Right 09/07/2017 Performed by Kel Serna MD at [facility] INJECTION MEDIAL BRANCH NERVE BLOCK: right C34 45 56mbb Right 07/31/2017 Performed by Kel Serna MD at [facility] RADIO FREQUENCY ABLATION: right C34 45 56 Right 06/21/2018 Performed by Kel Serna MD at [facility] RADIOFREQUENCY ABLATION SPINAL: right C34 45 56rfa Right 09/25/2017 Performed by Kel Serna MD at [facility] RADIOFREQUENCY TURBINATE NASAL Bilateral 08/23/2020 Performed by Eddie Santana MD PhD at [facility] SEPTOPLASTY Circumferential 08/23/2020 Performed by Eddie Santana MD PhD at [facility] TONSILLECTOMY TUBAL LIGATION Family History Problem Relation [...] 0 min Stress: Stress Concern Present (11/25/2018) [place] [employer] - Occupational Stress Questionnaire Feeling of Stress : To some extent Social Connections: Moderately Integrated (11/25/2018) Social Connection and Isolation Panel [NHANES] Frequency of Communication with Friends and Family: More than three times a week Frequency of Social Gatherings with Friends and Family: Twice a week Attends [employer] Services: More than 4 times per year [...] by mouth 2 (two) times a day. doverson-wzje-BU-calcium &mins (THERAGRAN-M) 9 mg iron-400 mcg tablet [...] Referring Physician: Boone Ewing MD [address] [place] [address] [facility] Miscellaneous Notes Called patient to remind them to bring their most current copy of their medication list with them to their appt. Patient verbalizes understanding. [facility] Telephone encounter Note Called patient to remind them to bring their most current copy of their medication list with them to their appt. Patient verbalizes understanding. [facility]MCODES System Evaluation note No assessment inform ation available [facility] Work Phone: Evaluation note Diagnosis History of coronary artery bypass graft x 2- Primary Dyslipidemia Other and unspecified hyperlipidemia Primary hypertension Unspecified essential hypertension documented in this encounter [facility]MC[facility] SystemEvaluation note* Diagnosis HER2-positive carcinoma of right breast (CMS-HCC)- Primary Encounter for monitoring cardiotoxic drug therapy Right breast cancer with T3 tumor, >5 cm in greatest dimension (CMS-HCC) documented in this encounter [facility]MC[facility] SystemEvaluation note* Diagnosis HER2-positive carcinoma of right breast (CMS-HCC)- Primary Right breast cancer with T3 tumor, >5 cm in greatest dimension (CMS-HCC) [facility] Diagnosis HER2-positive carcinoma of right breast (CMS-HCC)- Primary Right breast cancer with T3 tumor, >5 cm in greatest dimension (CMS-HCC) 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- Primary Rheumatoid arthritis with rheumatoid factor of multiple sites without organ or systems involvement (M05.79) Essential hypertension, benign (CMS/HCC) Essential hypertension, benign Essential hypertension, benign (CMS/HCC)- Primary Essential hypertension, benign DDD (degenerative disc disease), lumbar Degeneration of lumbar or lumbosacral intervertebral disc Essential hypertension, benign (CMS/HCC)- Primary Essential hypertension, benign DDD (degenerative disc disease), lumbar Degeneration of lumbar or lumbosacral intervertebral disc Rheumatoid arthritis involving multiple joints (CMS/HCC) Dyslipidemia (CMS/HCC) Other and unspecified hyperlipidemia Encounter for long-term (current) use of medications Encounter for long-term (current) use of other medications Hypothyroidism, adult (CMS/HCC) Other specified acquired hypothyroidism Prediabetes Other abnormal glucose Breast cancer screening by mammogram Essential hypertension, benign (CMS/HCC)- Primary Essential hypertension, benign DDD (degenerative disc disease), lumbar Degeneration of lumbar or lumbosacral intervertebral disc Rheumatoid arthritis involving multiple joints (CMS/HCC) Abnormal mammogram of right breast Invasive ductal carcinoma of breast, female, right (CMS/HCC)- Primary Age-related osteoporosis without current pathological fracture (CMS/HCC) documented in this encounter [facility] HealthcareEvaluation note* Diagnosis HER2-positive carcinoma of right breast (CMS-HCC)- Primary Right breast cancer with T3 tumor, >5 cm in greatest dimension (CMS-HCC) documented [facility] this encounter [facility]* Diagnosis Essential hypertension, benign (CMS/HCC)- Primary Essential hypertension, benign Overactive bladder 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 (CMS/HCC) Chronic left-sided low back pain without sciatica- Primary Rheumatoid arthritis with rheumatoid factor of multiple sites without organ or systems involvement (M05.79) Essential hypertension, benign (CMS/HCC) Essential hypertension, benign Essential hypertension, benign (CMS/HCC)- Primary Essential hypertension, benign DDD (degenerative disc disease), lumbar Degeneration of lumbar or lumbosacral intervertebral disc Essential hypertension, benign (CMS/HCC)- Primary Essential hypertension, benign DDD (degenerative disc disease), lumbar Degeneration of lumbar or lumbosacral intervertebral disc Rheumatoid arthritis involving multiple joints (CMS/HCC) Dyslipidemia (CMS/HCC) Other and unspecified hyperlipidemia Encounter for long-term (current) use of medications Encounter for long-term (current) use of other medications Hypothyroidism, adult (CMS/HCC) Other specified acquired hypothyroidism Prediabetes Other abnormal glucose Breast cancer screening by mammogram Essential hypertension, benign (CMS/HCC)- Primary Essential hypertension, benign DDD (degenerative disc disease), lumbar Degeneration of lumbar or lumbosacral intervertebral disc Rheumatoid arthritis involving multiple joints (CMS/HCC) Abnormal mammogram of right breast Invasive ductal carcinoma of breast, female, right (CMS/HCC)- Primary Essential hypertension, benign (CMS/HCC)- Primary Essential hypertension, benign Invasive ductal carcinoma of breast, female, right (CMS/HCC) Chronic heart failure with preserved ejection fraction (HFpEF) (CMS/HCC) Degeneration of intervertebral disc of lumbar region with discogenic back pain and lower extremity pain Rheumatoid arthritis involving multiple joints (CMS/HCC) documented in this encounter [facility] HealthcareInstructionsNot on filedocumented in this encounterProMedifl Health SystemInstructionsNot on filedocumented in this encounterPro[facility] SystemInstructionsNot on filedocumented in this encounterProUniversity [facility] SystemInstructionsNot on filedocumented in this encounterBethesda [facility] System InstructionsNot on filedocumented in this encounterBethesda North Hospital System Summary Purpose Family History No Family [...] Code 10/29/2018 3:22 PM 11/07/2018 5:21 PM Date Activated Date Inactivated Comments 10/29/2018 3:22 PM 11/07/2018 5:21 PM Date Activated Date Inactivated Comments 10/29/2018 3:22 PM 11/07/2018 5:21 PM Documents on File Type Date Recorded 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 Advance Directives and Living Will 11/02/2018 2016-01-24 living wi ll Chief Complaint and Reason for Visit Chief Complaint M06.4 Z11.59 Rheumatoid arthritis/immunosuppression Chief Complaint Rheumatoid arthritis /immunosuppression Chief Complaint Unknown Additional Source Comments INFORMATION SOURCE (unrecogn ized section and content) DATE CREATED AUTHOR 05/10/2021 [facility] dical Specialist DATE CREATED AUTHOR AUTHOR'S ORGANIZ ATION 04/02/2022 [facility] DATE CREATED AUTHOR AUTHOR'S ORGANIZ ATION 11/14/2023 [facility] dical Specialists EPIC DATE CREATED AUTHOR AUTHOR'S ORGANIZ ATION [facility] DATE CREATED AUTHOR AUTHOR'S ORGANIZ ATION 03/19/2024 [facility] ysician Group Care Teams (unrecognized sec tion and content) Team Status: Inactive Member Role Status Dates Carin Brady , Primary Care Provider Active Jan Solares MD Attending Provider Active Team Status: Active Member Role Status Dates Carin Brady , Primary Care Provider Active [employer] Relationship Specialty Start Date End Date Boone Ewing MD [address] [place] [address] PCP - General Family Medicine 12/23/21 [employer] Relationship Specialty Start Date End Date Boone Ewing MD [address] [place] [address] PCP - General Family Medicine 12/23/21 Team Status: Inactive Member Role Status Dates Boone Ewing MD Attending Provider Active Star t: November 03, 2023 End: November 03, 2023 [employer] Relationship Specialty Start Date End Date Boone Ewing MD PCP - General Family Medicine 12/23/21 [employer] Relationship Specialty Start Date End Date Boone Ewing MD PCP - General Family Medicine 12/23/21 [employer] Relationship Specialty Start Date End Date Boone Ewing MD [address] [place] [address] PCP - General Family Medicine 02/09/24 [employer] Relationship Specialty Start Date End Date Boone Ewing MD [address] [place] [phone] PCP - General Family Medicine 06/03/23 [employer] Relationship Specialty Start Date End Date Boone Ewing MD [address] [place] [phone] PCP - General Family Medicine 02/09/24 [employer] Operator Relationship Specialty Start Date End Date Boone Ewing MD [address] [place] [phone] PCP - General Family Medicine 02/09/24 [employer] Operator Relationship Specialty Start Date End Date Boone Ewing MD [address] [place] [phone] PCP - General Family Medicine 06/03/23 [employer] Operator Relationship Specialty Start Date End Date Boone Ewing MD [address] [place] [phone] PCP - General Family Medicine 06/03/23 Goals (unrecognized section and content) Goals may be documented in a n alternate sectionGoals may be documented in an alternate sectionGoals may be documented in an alternate sectionNot on filedocumented as of this encounterNot on filedocumented as of this encounterGoals may be documented in an alternate sectionNot on filedocumented as of this encounterNot on filedocumented as of this encounterNot on filedocumented as of this encounterNot on filedocumented as of this encounterNot on filedocumented as of this encounterNot on filedocumented as of this encounter Reason for Visit (unrecogniz ed section and content) Reason Comments Chemotherapy Phesgo Specialty Diagnoses / Procedures Referred By Contac t Referred To Contact Diagnoses HER2-positive carcinoma of right breast ([facility]-HCC) Right breast cancer with T3 tumor, >5 cm in greatest dimension ([facility]-HCC) Procedures INJECTION, PERTUZUMAB, TRASTUZUMAB, AND HYALURONIDASE-ZZXF, PER 10 MG Topher Cummings MD [facility] [facility] [address] [place] [address] Phone: tel: fax: [facility] - Medical Oncology [address] [place] [phone] Phone: tel: fax: Referral ID Status Reason Start Date Expiration Date V isits Requested Visits Authorized [id number] Authorized 11/18/2023 11/17/2024 11 11 Reason Comments Follow-up EST PT F/U 1 YR L/S MS NO TESTS SCHED W/PT Reason Comments Injection Phesgo Specialty Diagnoses / Procedures Referred By Louie t Referred To Contact Diagnoses HER2-positive carcinoma of right breast ([facility]-HCC) Right breast cancer with T3 tumor, >5 cm in greatest dimension ([facility]-HCC) Procedures INJECTION, PERTUZUMAB, TRASTUZUMAB, AND HYALURONIDASE-ZZXF, PER 10 MG Topher Cummings MD [facility] [facility] [address] [address] [place] [id number] Phone: tel: fax: [facility] - Medical Oncology [address] [place] [phone] Phone: tel: fax: Reason Comments Injection phesgo Reason Comments Med Refill Reason Comments Follow-up 6mFell on Thursday, wo rried about concussion FOR RECORDS PERTAINING TO PATIENTS WHO ARE [...] THE PRIMARY CLINICAL RECORDS. [facility] [employer] [facility]. provides no warranty or guarantee of the accuracy or completeness of information in this document.
== END 2024-03-21 09:48 | disposition home or self-care (01) ==
LOC: US 09:48
PROVIDERS: PCP Family Medicine; Visit Provider Internal Medicine Hematology & Oncology
DX: C50.911 Malignant neoplasm of unspecified site of right female breast (principal); Z17.31 Human epidermal growth factor receptor 2 positive status
CPT/HCPCS: 76642

== ENCOUNTER 2024-05-09 12:28 | Outpatient (OUT) | payer MEDICARE, OTHER, SELFPAY ==
--- NOTE | 2024-05-09 | XR_ITS ---
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 Moderate to severe degenerative spondylosis and facet osteoarthropathy DISC SPACES: Moderate to severe multilevel disc space narrowing with endplate sclerosis and vacuum disks PARASPINOUS: Negative. No paraspinous abnormality is seen. OTHER: Negative. 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
== END 2024-05-09 12:29 | disposition home or self-care (01) ==
LOC: RAD 12:30
PROVIDERS: PCP Family Medicine; Visit Provider Family Medicine
DX: M51.362 Other intervertebral disc degeneration, lumbar region with discogenic back pain and lower extremity pain (principal); M41.86 Other forms of scoliosis, lumbar region
CPT/HCPCS: 72100

== ENCOUNTER 2024-07-06 09:48 | Outpatient (OUT) | payer MEDICARE, OTHER, SELFPAY ==
--- OUTSIDE RECORDS SUMMARY | 2024-07-06 09:53 | XMS_ITS | CCD ---
Author Organization [facility] Care Team Providers Care Fashion Consultant Sales Name Role Phone DO Carin Brady Primary Care Provider [phone] MD Jan Solares Attending Provider CAMPOS, DR [...] Admitting Unavailable HALADAY, DR MONTOYA Attending Unavailable NADERELiza, DR BOONE Waldrop Primary Care Unavailable HALADAY, DR MONTOYA Consulting Unavailable MD Boone Ewing Attending Provider Boone Ewing MD Primary Care Provider Boone Ewing Attending Unavailable Nadereliza, Boone Admitting Unavailable Haladadylan, Jan Attending Unavailable Haladadylan, Jan Admitting Unavailable Nadereliza, Boone Primary Care Unavailable Boone Ewing MD Primary Care Provider [phone] Marti WALSH, Boone Primary Care Provider Boone Ewing MD Primary Care Provider NADTALHA, BOONE Attending Unavailable NADERER, BOONE Attending Unavailable GREGORIAWWASHAIKH Holt Attending Unavailable NADERER, BOONE Attending Unavailable NADERER, BOONE Attending Unavailable NADERER, BOONE Attending Unavailable NADERER, BOONE Attending Unavailable BIJU RETANA Attending Unavailable NADERER, BOONE Referring Unavailable NADERER, BOONE Attending Unavailable Naderer , Boone Primary Care Provider [phone] JAN SOLARES Referring Unavailable NADERER, BOONE Primary Care Unavailable JAN SOLARES Referring Unavailable NADERER, BOONE Primary Care Unavailable KHALIF, OBANDO N Attending Unavailable NADERER, BOONE Referring Unavailable [...] BOONE Primary Care Unavailable KHALIF, OBANDO N Attending Unavailable NADERER, BOONE Referring Unavailable [...] NADERER, BOONE Primary Care Unavailable KHALIF, OBANDO Referring Unavailable NADERER, BOONE Primary Care Unavailable KHALIF, OBANDO Attending Unavailable KHALIF, OBANDO Referring Unavailable NADERER, BOONE Primary Care Unavailable NADERER, BOONE Referring Unavailable NADERER, BOONE Primary Care Unavailable JULIANNE DOTSON Attending Unavailable NADERER, BOONE Referring Unavailable NADERER, BOONE Primary Care Unavailable KHALIF, OBANDO Attending Unavailable NADERER, BOONE Referring Unavailable NADERER, BOONE Primary Care Unavailable KHALIF, OBANOD Referring Unavailable NADERER, BOONE Primary Care Unavailable NADERER, BOONE Referring Unavailable NADERER, BOONE Primary Care Unavailable WILL CUADRA Referring Unavailable NADERER, BOONE Primary Care Unavailable NADERER, BOONE Referring Unavailable NADERER, BOONE Primary Care Unavailable JAN SOLARES Referring Unavailable NADERER, BOONE Primary Care Unavailable WILL CUADRA Referring Unavailable NADERER, BOONE Primary Care Unavailable NADERER, BOONE Referring Unavailable NADERER, BOONE Primary Care Unavailable NADZENAR, BOONE Referring Unavailable NADZENAR, BOONE Primary Care Unavailable NADZENAR, BOONE Referring Unavailable NADERER, BOONE Primary Care Unavailable NADERER, BOONE Referring Unavailable NADERER, BOONE Primary Care Unavailable Allergies Allergy Classification Reported Allergen(s) Allergy Type Date of Onset Reaction(s) Facility (20 sources) Amoxicillin; Translations: [AMOXICILLIN] Drug Allergy 04-10-2023 Diarrhea [facility] Medications Current Medications Medication Drug Class(es) Dates Sig (Normalized) Sig (Original) 8 hr acetaminophen 650 mg extended release oral tablet (20 sources) take 1 tablet by mouth every eight hours as needed for pain acetaminophen (TYLENOL ARTHRITIS) 650 mg 8 hr tablet Take 1 tablet (650 mg total) by mouth every 8 (eight) hours as needed for pain. Active alendronic acid 70 mg oral tablet (20 sources) Bisphosphonate Start: 10-15-2017 End: 02-11-2024 take 1 tablet by mouth every week alendronate (Fosamax) 70 MG tablet Indications: Age-related osteoporosis without current pathological fracture (CMS/HCC) TAKE 1 TABLET BY MOUTH ONCE WEEKLY DIRECTED 12 tablet 3 02/11/2024 Active amLODIPine 5 mg oral tablet (20 sources) Dihydropyridine Calcium Channel Ramiro Start: 12-18-2018 take 1 tablet by mouth once daily amLODIPine (Norvasc) 5 MG tablet Indications: Essential (primary) hypertension (CMS/HCC) TAKE 1 TABLET BY MOUTH EVERY DAY 90 tablet 3 02/29/2024 Active aspirin 81 mg delayed release oral tablet (20 sources) Platelet Aggregation Inhibitor, Nonsteroidal Anti-inflammatory Drug take 1 tablet by mouth in the morning aspirin 81 MG EC tablet Take 81 mg by mouth in the morning. Active atenolol 25 mg oral tablet (4 sources) beta-Adrenergic Ramiro Start: 10-15-2017 take 1 tablet by mouth once daily Atenolol Active 1 TAB PO Daily October 15, 2017 12:00am atorvastatin 80 mg oral tablet (20 sources) HMG-CoA Reductase Inhibitor Start: 12-18-2018 take 1 tablet by mouth once daily at bedtime atorvastatin (Lipitor) 80 MG tablet Indications: Mixed hyperlipidemia (CMS/HCC) TAKE 1 TABLET BY MOUTH EVERYDAY AT BEDTIME 90 tablet 3 02/29/2024 Active calcium carbonate 1250 mg / cholecalciferol 200 unt oral tablet (20 sources) Vitamin D take 1 tablet by [...] 0 Active cholecalciferol 0.025 mg oral tablet (20 sources) Vitamin D take 1 tablet by mouth in the morning cholecalciferol 1,000 units tablet Take 1 tablet (1,000 Units total) by mouth in the morning. Active ciprofloxacin 500 mg oral tablet (18 sources) Quinolone Antimicrobial take 1 tablet by mouth in the morning, then take 1 tablet by mouth at bedtime ciprofloxacin HCl (CIPRO) 500 mg tablet Take 1 tablet (500 mg total) by mouth in the morning and 1 tablet (500 mg total) before bedtime. Active cranberry preparation 250 mg oral capsule (20 sources) Non-Standardized Food Allergenic Extract, Non-Standardized Plant [...] 0 Active famotidine 20 mg oral tablet (20 sources) Histamine-2 Receptor Antagonist Start: 01-25-2017 famotidine (PEPCID) 20 mg tablet Take 1 tablet (20 mg total) by mouth as needed. 3 01/25/2017 Active FLUoxetine 10 mg oral capsule (7 sources) Serotonin Reuptake Inhibitor Start: 05-09-2024 take 1 capsule by mouth once daily FLUoxetine (PROzac) 10 MG capsule Indications: Major depressive disorder, recurrent, moderate (CMS/HCC) Take 1 capsule (10 mg) by mouth Daily 30 capsule 3 05/09/2024 Active folic acid 1 mg oral tablet (4 sources) Start: 10-15-2017 take 1 tablet by mouth once daily Folic Acid Active 1 TAB PO Daily October 15, 2017 12:00am hydroCHLOROthiazide 50 mg oral tablet (4 sources) Thiazide Diuretic Start: 10-15-2017 take 1 tablet by mouth once daily Hydrochlorothiazide Active 1 TAB PO Daily October 15, 2017 12:00am leflunomide 20 mg oral tablet (20 sources) Antirheumatic Agent take 1 tablet by mouth in the morning leflunomide (Arava) 20 MG tablet Take 20 mg by mouth in the morning. Active letrozole 2.5 mg oral tablet (20 sources) Aromatase Inhibitor Start: 11-18-2023 End: 11-12-2024 take 1 tablet by mouth once daily letrozole (FEMARA) 2.5 mg chemo tablet Indications: Right breast cancer with T3 tumor, >5 cm in greatest dimension (CMS-HCC) Take 1 tablet by mouth daily 90 tablet 3 11/18/2023 11/12/2024 Active levothyroxine sodium 0.025 mg oral tablet (20 sources) l-Thyroxine Start: 10-15-2017 take 1 tablet [...] succinate 100 mg extended release oral tablet (20 sources) beta-Adrenergic Ramiro Start: 04-28-2024 take 1 tablet by mouth once daily metoprolol succinate XL (Toprol-XL) 100 MG 24 hr tablet Indications: Essential (primary) hypertension (CMS/HCC) , Benign essential hypertension (CMS/HCC) TAKE 1 TABLET BY MOUTH EVERY DAY 90 tablet 1 04/28/2024 Active Start: 12-14-2023 take 1 tablet by [facility] once daily metoprolol succinate XL (Toprol-XL) 100 [...] 3 01/08/2022 Active Multiple Vitamin (multivitamin) tablet (11 sources) take 1 tablet by [facility] once daily Multiple Vitamin (multivitamin) tablet Take 1 tablet by mouth Daily Active vexlxttr-aglc-HV-calcium &mi ns (THERAGRAN-M) 9 mg iron-400 mcg tablet (20 sources) gvkaqwoo-fmqx-OD -calcium &mins (THERAGRAN-M) 9 mg iron-400 mcg tablet Take 1 tablet by mouth in the morning. Active ylcsyloy-vhde-MH -calcium &mins (THERAGRAN-M) 9 mg iron-400 mcg tablet Take 1 tablet by mouth in the morning. 0 Active ondansetron 8 mg oral tablet (16 sources) Serotonin-3 Receptor Antagonist Start: 01-20-2024 take 1 tablet by mouth every eight hours as needed for nausea and vomiting ondansetron (ZOFRAN) 8 mg tablet Take 1 tablet (8 mg total) by mouth every 8 (eight) hours as needed for nausea or vomiting. 30 tablet 2 01/20/2024 Active 24 hr oxybutynin chloride 10 mg extended release oral tablet (20 sources) Cholinergic Muscarinic Antagonist Start: 07-01-2024 take 1 tablet by mouth once daily oxybutynin XL (Ditropan-XL) 10 MG 24 hr tablet Indications: Overactive bladder Take 1 tablet (10 mg) by mouth Daily Do not crush, chew, or split. 90 tablet 3 07/01/2024 Active Start: 06-26-2023 End: 07-01-2024 take 1 tablet by mouth once daily oxybutynin XL (Ditropan-XL) 10 MG 24 hr tablet Indications: Overactive bladder Take 1 tablet (10 mg) by mouth Daily Do not crush, chew, or split. 90 tablet 3 06/26/2023 07/01/2024 Discontinued (Reorder) Start: 04-10-2023 take 1 tablet by [facility] [...] PO Daily October 15, 2017 12:00am predniSONE 50 mg oral tablet (15 sources) Start: 05-09-2024 End: 05-15-2024 take 1 tablet by mouth once daily predniSONE (Deltasone) 50 MG tablet Indications: Degeneration of intervertebral disc of lumbar region with discogenic back pain and lower extremity pain Take 1 tablet (50 mg) by mouth Daily for 6 days 6 tablet 05/09/2024 05/15/2024 Active Start: 10-15-2017 take 1 tablet by mouth once Pr ednisone Active 1 TAB PO every Thursday, Thursday, [...] Full dose , , Sat, Sun (2.5mg Mon, Wed, Fri) 0 04/10/2023 Discontinued (Therapy completed) traMADol hydrochloride 50 mg oral tablet (3 sources) Opioid Agonist Start: 05-09-2024 End: 05-16-2024 take 1 tablet by mouth four times daily as needed for pain traMADol (Ultram) 50 MG tablet Indications: Degeneration of intervertebral disc of lumbar region with discogenic back pain and lower extremity pain Take 1 tablet (50 mg) by mouth 4 (four) times a day as needed for severe pain for up to 7 days 28 tablet 05/09/2024 05/16/2024 Active Completed/Discontinued Medications Medication Drug Class(es) Dates Sig (Normalized) Sig (Original) diclofenac sodium 0.01 mg/mg topical gel (2 sources) Nonsteroidal Anti-inflammatory Drug End: 04-10-2023 diclofenac sodium (VOLTAREN) 1 % gel Apply 2 g topically 3 (three) times a day as needed. 0 04/10/2023 Discontinued (Therapy completed) 10 ml hyaluronidase-zzx f 2000 unt/ml / pertuzumab-zzxf 60 mg/ml / trastuzumab-zzxf 60 mg/ml injection (9 sources) Endoglycosidase, HER2/noe Receptor Antagonist Start: 06-29-2024 End: 06-29-2024 inject 1 dose by subcutaneous injection once 10 mL, subcutaneous, Administer over 5 Minutes, Once, On Thu06/29/24 at 1045, For 1 dose, maintenance dose; observe for 15 min after injection Alternate L and R thigh at least 2.5cm from prior sites. Avoid red, bruised, tender, hard, scarred/moled skin. Observe 30 min after first and 15 min after subsequent doses Start: 06-01-2024 End: 06-01-2024 inject 1 dose by subcutaneous injection once 10 mL, subcutaneous, Administer over 5 Minutes, Once, On Thu06/01/24 at 1115, For 1 dose, maintenance dose; observe for 15 min after injection Alternate L and R thigh at least 2.5cm from prior sites. Avoid red, bruised, tender, hard, scarred/moled skin. Observe 30 min after first and 15 min after subsequent doses Start: 05-04-2024 End: 05-04-2024 inject 1 dose by subcutaneous injection once 10 mL, subcutaneous, Administer over 5 Minutes, Once, On Thu05/04/24 at 1115, For 1 dose, maintenance dose; observe for 15 min after injection Alternate L and R thigh at least 2.5cm from prior sites. Avoid red, bruised, tender, hard, scarred/moled skin. Observe 30 min after first and 15 min after subsequent doses Start: 04-13-2024 End: 04-13-2024 inject 1 dose by subcutaneous injection once 10 mL, subcutaneous, Administer over 5 Minutes, Once, On Thu04/13/24 at 1045, For 1 dose, maintenance dose; observe for 15 min after injection Alternate L and R thigh at least 2.5cm from prior sites. Avoid red, bruised, tender, hard, scarred/moled skin. Observe 30 min after first and 15 min after subsequent doses Start: 03-02-2024 End: 03-02-2024 inject 1 dose [...] and 15 min after subsequent doses Start: 12-30-2023 End: 12-30-2023 inject 1 dose by subcutaneous injection once 10 mL, subcutaneous, Administer over 5 Minutes, Once, On Thu12/30/23 at 1100, For 1 dose, maintenance dose; observe for 15 min after injection Alternate L and R thigh at least 2.5cm from prior sites. Avoid red, bruised, tender, hard, scarred/moled skin. Observe 30 min after first and 15 min after subsequent doses Start: 12-09-2023 End: 12-09-2023 inject 1 dose by subcutaneous injection once 15 mL, subcutaneous, Administer over 8 Minutes, Once, On Thu12/09/23 at 1130, For 1 dose, loading dose; observe for 30 min after injection Alternate L and R thigh at least 2.5cm from prior sites. Avoid red, bruised, tender, hard, scarred/moled skin. Observe 30 min after first and 15 min after subsequent doses, Indications: HER2-positive carcinoma of breast mupirocin 0.02 mg/mg topical ointment (2 sources) RNA Synthetase Inhibitor Antibacterial Start: 09-20-2020 End: 04-10-2023 mupirocin (BACTROBAN) 2 % ointment Indications: Epistaxis Applied intranasally bilaterally 2 times daily 15 g 0 09/20/2020 04/10/2023 Discontinued (Therapy completed) sod dvqde-xfcxsb-ugkl ez bottle (NEILMED SINUS RINSE COMPLETE) packet with rinse device nasal solution (2 sources) Start: 08-22-2020 End: 04-10-2023 take 1 dose nasal route twice daily sod ikmvn-ybyjqn-sgdgkv bottle (NEILMED SINUS RINSE COMPLETE) packet with rinse device nasal solution Administer 1 packet into each nostril 2 (two) times a day. 60 packet 0 08/22/2020 04/10/2023 Discontinued (Therapy completed) Start: 08-22-2020 take 1 dose nasal ro jordan twice daily sod vhjol-qmqaau-ydmrvu bottle (NEILMED SINUS RINSE COMPLETE) packet with rinse device nasal solution Administer 1 packet into each nostril 2 (two) times a day. 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; Translations: [Malignant neoplasm of unspecified site of right female breast] Onset: 11-11-2023 11-11-2023 Chronic Congestive heart failure; nonhypertensive (15 sources) Chronic heart failure co-occurrent with normal ejection fraction; Translations: [Chronic diastolic (congestive) heart failure] Onset: 01-29-2024 01-29-2024 Chronic Coronary atherosclerosis and other heart disease (20 sources) Coronary arteriosclerosis; Translations: [Atherosclerotic heart disease of [place] coronary artery without angina pectoris] Onset: 10-29-2018 Resolved: 10-21-2019 03-23-2023 Chronic Disorders of lipid metabolism (20 sources) Dyslipidemia; Translations: [Hyperlipidemia, unspecified] Onset: 10-21-2019 03-23-2023 Chronic Essential hypertension (15 sources) Benign essential hypertension; Translations: [Essential (primary) hypertension] Onset: 03-23-2023 03-23-2023 Chronic Immunizations and screening for infectious disease (1 source) Raised antibody titer; Translations: [Raised antibody titer] Onset: 03-16-2024 Episodic Mood disorders (11 sources) Moderate recurrent major depression; Translations: [Major depressive disorder, recurrent, moderate] Onset: 05-09-2024 05-09-2024 Chronic Osteoporosis (13 sources) Senile osteoporosis; Translations: [Age-related osteoporosis without current pathological fracture] Onset: 03-23-2023 02-11-2024 Chronic Other diseases of bladder and urethra (13 sources) Overactive bladder; Translations: [Overactive bladder] Onset: 03-23-2023 03-23-2023 Chronic Residual codes; unclassified (1 source) Pain, unspecified; Translations: [Pain, unspecified] Onset: 06-29-2024 Episodic Rheumatoid arthritis and related disease (20 sources) Rheumatoid arthritis, unspecified; Translations: [Rheumatoid arthritis without rheumatoid factor, multiple sites] Onset: 12-10-2021 Chronic Spondylosis; intervertebral disc disorders; other back problems (20 sources) Cervical spondylosis without myelopathy; Translations: [Spondylosis without myelopathy or radiculopathy, cervical region] Onset: 04-16-2017 03-23-2023 Chronic Thyroid disorders (12 sources) Hypothyroidism; Translations: [Hypothyroidism, unspecified] Onset: 03-23-2023 03-23-2023 Chronic Unclassified (1 source) 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; Translations: [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] Onset: 11-18-2023 Unclassified (1 source) Injection Onset: 12-09-2023 Past or Other Problems Problem Classification Problem Date Documented Date Episodic/Chronic Administrative/social admission (12 sources) Patient care statuses; Translations: [Encounter for nonprocreative genetic counseling] Onset: 11-18-2023 11-18-2023 Episodic Deficiency and other anemia (12 sources) Iron deficiency anemia secondary to inadequate dietary iron intake; Translations: [Other iron deficiency anemias] Onset: 03-23-2023 03-23-2023 Episodic Deficiency and other anemia (20 sources) Iron deficiency anemia; Translations: [Iron deficiency anemia, unspecified] Onset: 11-26-2018 11-26-2018 Episodic Diabetes mellitus without complication (12 sources) Prediabetes; Translations: [Prediabetes] Onset: 03-23-2023 09-22-2023 Episodic Genitourinary symptoms and ill-defined conditions (20 sources) Dysuria; Translations: [Urinary symptoms ] Onset: 03-25-2022 Resolved: 06-09-2024 Episodic Mood disorders (20 sources) Mood disorders Onset: 01-07-2021 01-07-2021 Nonspecific chest pain (20 sources) Chest pain; Translations: [Other chest pain] Onset: 10-29-2018 Resolved: 10-21-2019 10-21-2019 Episodic Other aftercare (2 sources) Other accounts receivable specialist (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; Translations: [OTH BLOW MOLDER CURRENT DRUG THERAPY] Onset: 01-20-2022 Episodic Other aftercare (13 sources) Long-term current use of drug therapy; Translations: [Other group home (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] Onset: 09-22-2023 09-22-2023 Episodic Other aftercare (1 source) Patient encounter status; Translations: [Other group home (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] Onset: 09-22-2023 09-22-2023 Episodic Other aftercare (1 source) Drug therapy finding; Translations: [Encounter for therapeutic drug level monitoring] 11-19-2023 Episodic Other aftercare (1 source) Encounter for therapeutic drug level monitoring; Translations: [Encounter for therapeutic drug level monitoring] Onset: 12-01-2023 Episodic Other lower respiratory disease (20 sources) Dyspnea; Translations: [Shortness of breath] Onset: 10-29-2018 Resolved: 10-21-2019 10-21-2019 Episodic Other screening for suspected conditions (not mental disorders or infectious disease) (20 sources) Abnormal results of liver function studies; Translations: [Mammography abnormal] Onset: 10-29-2018 Resolved: 10-21-2019 10-12-2023 Episodic Other upper respiratory disease (20 sources) Bleeding from nose; Translations: [Epistaxis] Onset: 08-01-2020 08-01-2020 Episodic Respiratory failure; insufficiency; arrest (adult) (20 sources) Dependence on respirator; Translations: [Dependence on respirator [ventilator] status] Onset: 06-02-2019 Resolved: 10-21-2019 10-21-2019 Chronic Unclassified (2 sources) Long-term current use of drug therapy 01-20-2024 Urinary tract infections (12 sources) Acute cystitis; Translations: [Acute cystitis with hematuria] Onset: 07-23-2023 Resolved: 09-22-2023 09-22-2023 Episodic Results Test Name Value Interpretation Reference Range Facility CBC AND AUTO DIFFon 06-29-19 ABSOLUTE BASOPHIL 0.1 X10E9/L Normal 0.0-0.2 [facility] Comment on above: Performed By: #### Ha SAMSON [id number], PRINCIPAL TECHNICAL ARCHITECT, LIVR #### [facility] ([id number]) [address], [address] [place] [address] ABSOLUTE NEUTROPHIL 8.7 X10E9/L High 1.5-6.6 [facility] Comment on above: Performed By: #### Ha SAMSON 68796-0, PRINCIPAL TECHNICAL ARCHITECT, LIVR #### [facility] ([id number]) [address], [address] [place] [address] Basophils/100 WBC (Bld) 1.2 % Normal [facility] Comment on above: Performed By: #### Ha SAMSON [id number], PRINCIPAL TECHNICAL ARCHITECT, LIVR #### [facility] ([id number]) [address], [address] [place] [address] Eosinophils (Bld) [#/Vol] 0.2 10*3/uL Normal 0.0-0.4 [facility] Comment on above: Performed By: #### Ha SAMSON 72954-5, PRINCIPAL TECHNICAL ARCHITECT, LIVR #### [facility] ([id number]) [address], [address] [place] [address] Eosinophils/100 WBC (Bld) 2.1 % Normal [facility] Comment on above: Performed By: #### Ha SAMSON, [id number], PRINCIPAL TECHNICAL ARCHITECT, LIVR #### [facility] ([id number]) [address], [address] [place] [address] Erythrocyte distribution width (RBC) [Ratio] 14.4 % Normal 11.5-15.0 [facility] Comment on above: Performed By: #### C MALI [id number], PRINCIPAL TECHNICAL ARCHITECT, LIVR #### [facility] ([id number]) [address], [facility] [address] [place] [address] Hematocrit (Bld) [Volume fraction] 37.1 % Normal 35-47 [facility] Comment on above: Performed By: #### Ha SAMSON, 51706-3, PRINCIPAL TECHNICAL ARCHITECT, LIVR #### [facility] ([id number]) [address], [facility] [address] [place] [address] Hemoglobin (Bld) [Mass/Vol] 12.3 g/dL Normal 11.7-15.5 [facility] Comment on above: Performed By: #### Ha SAMSON, [id number], PRINCIPAL TECHNICAL ARCHITECT, LIVR #### [facility] ([id number]) [address] [place] [address] Lymphocytes (Bld) [#/Vol] 1.1 10*3/uL Normal 1.0-3.5 [facility] Comment on above: Performed By: #### Ha SAMSON, 86058-7, PRINCIPAL TECHNICAL ARCHITECT, LIVR #### [facility] ([id number]) [address] [address] [place] [address] Lymphocytes/100 WBC (Bld) 9.8 % Normal [facility] Comment on above: Performed By: #### Ha SAMSON, 23827-9, PRINCIPAL TECHNICAL ARCHITECT, LIVR #### [facility] ([id number]) [address], [address] [place] [address] MCH (RBC) [Entitic mass] 31.4 pg Normal 27-34 [facility] Comment on above: Performed By: #### C MALI, [id number], PRINCIPAL TECHNICAL ARCHITECT, LIVR #### [facility] ([id number]) [address], [address] [place] [address] MCHC (RBC) [Mass/Vol] 33.3 g/dL Normal 32-36 [facility] Comment on above: Performed By: #### Ha SAMSON 55627-1, PRINCIPAL TECHNICAL ARCHITECT, LIVR #### [facility] ([id number]) [address], [facility] [address] [place] [address] MCV (RBC) [Entitic vol] 94 fL Normal 80-100 [facility] Comment on above: Performed By: #### Ha SAMSON, [id number], PRINCIPAL TECHNICAL ARCHITECT, LIVR #### [facility] ([id number]) [address], [facility] [address] [place] [address] Monocytes (Bld) [#/Vol] 1.1 10*3/uL High 0-0.9 [facility] Comment on above: Performed By: #### Ha SAMSON, 53359-6, PRINCIPAL TECHNICAL ARCHITECT, LIVR #### [facility] ([id number]) [address], [facility] [address] [place] [address] Monocytes/100 WBC (Bld) 10.1 % Normal [facility] Comment on above: Performed By: #### Ha SAMSON, 22415-4, PRINCIPAL TECHNICAL ARCHITECT, LIVR #### [facility] ([id number]) [address] [address] [place] [address] Neutrophils/100 WBC (Bld) 76.8 % Normal [facility] Comment on above: Performed By: #### Ha SAMSON, 82001-2, PRINCIPAL TECHNICAL ARCHITECT, LIVR #### [facility] ([id number]) [address], [address] [place] [address] Platelet mean volume (Bld) [Entitic vol] 9.4 fL Normal 7-12 [facility] Comment on above: Performed By: #### C MALI, 18741-5, PRINCIPAL TECHNICAL ARCHITECT, LIVR #### [facility] ([id number]) [address], [address] [place] [address] Platelets (Bld) [#/Vol] 284 10*3/uL Normal 150-450 [facility] Comment on above: Performed By: #### C MAIL, 50521-9, PRINCIPAL TECHNICAL ARCHITECT, LIVR #### [facility] ([id number]) [address], [address] [place] [address] RBC COUNT 3.93 X10E12/L Normal 3.80-5.20 [facility] Comment on above: Performed By: #### C MALI, 65021-3, PRINCIPAL TECHNICAL ARCHITECT, LIVR #### [facility] ([id number]) [address] [address] [place] [address] WBC (Bld) [#/Vol] 11.3 10*3/uL High 4.0-11.0 [facility] Comment on above: Performed By: #### C MALI, 83228-0, PRINCIPAL TECHNICAL ARCHITECT, LIVR #### [facility] ([id number]) [address], [address] [place] [address] COMPREHENSIVE METABOLIC PANE Henry 06-28-2024 Albumin [Mass/Vol] 3.5 g/dL Normal 3.2-5.3 [facility] Comment on above: Performed By: #### C MALI, 79440-8, PRINCIPAL TECHNICAL ARCHITECT, LIVR #### [facility] ([id number]) [address], [address] [place] [address] ALP [Catalytic activity/Vol] 82 U/L Normal 39-130 [facility] Comment on above: Performed By: #### C MALI, 91242-2, PRINCIPAL TECHNICAL ARCHITECT, LIVR #### [facility] ([id number]) [address], [address] [place] [address] ALT [Catalytic activity/Vol] 11 U/L Normal 0-31 [facility] Comment on above: Performed By: #### C BCA, 19000-3, PRINCIPAL TECHNICAL ARCHITECT, LIVR #### [facility] ([id number]) [address], [address] [place] [address] Anion gap [Moles/Vol] 9 mmol/L Normal 5-15 [facility] Comment on above: Performed By: #### C BCA, 84398-8, PRINCIPAL TECHNICAL ARCHITECT, LIVR #### [facility] ([id number]) [address], [address] [place] [address] AST [Catalytic activity/Vol] 23 U/L Normal 0-41 [facility] Comment on above: Performed By: #### C BCA, 65666-5, PRINCIPAL TECHNICAL ARCHITECT, LIVR #### [facility] ([id number]) [address], [address] [place] [address] Bilirubin [Mass/Vol] 0.5 mg/dL Normal 0.3-1.2 [facility] Comment on above: Performed By: #### C BCA, 89522-0, PRINCIPAL TECHNICAL ARCHITECT, LIVR #### [facility] ([id number]) [address], [address] [place] [address] Calcium [Mass/Vol] 9.1 mg/dL Normal 8.5-10.5 [facility] Comment on above: Performed By: #### C BCA, 64990-7, PRINCIPAL TECHNICAL ARCHITECT, LIVR #### [facility] ([id number]) [address], [address] [place] [address] Chloride [Moles/Vol] 105 mmol/L Normal 98-109 [facility] Comment on above: Performed By: #### C BCA, 44146-0, PRINCIPAL TECHNICAL ARCHITECT, LIVR #### [facility] ([id number]) [address] [address] [place] [address] CO2 [Moles/Vol] 25 mmol/L Normal 22-32 [facility] Comment on above: Performed By: #### C BCA, 47483-0, PRINCIPAL TECHNICAL ARCHITECT, LIVR #### [facility] ([id number]) [address], [address] [place] [address] Creatinine [Mass/Vol] 0.71 mg/dL Normal 0.40-1.00 [facility] Comment on above: Result Comment: METH OD TRACEABLE TO IDMS STANDARD Performed By: #### C MALI, 90472-2, PRINCIPAL TECHNICAL ARCHITECT, LIVR #### [facility] ([id number]) [address] [place] [address] GFR/1.73 sq M.predicted among non-blacks MDRD (S/P/Bld) [Vol rate/Area] 84 mL/min/{1.73_m2} Normal >59 [facility] Comment on above: Result Comment: Reported eGFR is based on the CKD-EPI 2020 equation that does not use a race coefficient. Performed By: #### C BCA, 55602-6, PRINCIPAL TECHNICAL ARCHITECT, LIVR #### [facility] ([id number]) [address] [address] [place] [address] Glucose [Mass/Vol] 98 mg/dL Normal 65-99 [facility] Comment on above: Performed By: #### C BCA, 01693-0, PRINCIPAL TECHNICAL ARCHITECT, LIVR #### [facility] ([id number]) [address] [place] [address] Potassium [Moles/Vol] 3.6 mmol/L Normal 3.5-5.0 [facility] Comment on above: Performed By: #### C BCA, 64152-5, PRINCIPAL TECHNICAL ARCHITECT, LIVR #### [facility] ([id number]) [address] [place] [address] Protein [Mass/Vol] 5.9 g/dL Low 6.0-8.0 [facility] Comment on above: Performed By: #### C MALI, 43481-8, PRINCIPAL TECHNICAL ARCHITECT, LIVR #### [facility] ([id number]) [address] [place] [address] Sodium [Moles/Vol] 139 mmol/L Normal 134-146 [facility] Comment on above: Performed By: #### C MALI, 37949-8, PRINCIPAL TECHNICAL ARCHITECT, LIVR #### [facility] ([id number]) [address] [address] Urea nitrogen [Mass/Vol] 15 mg/dL Normal 5-27 [facility] Comment on above: Performed By: #### Ha SAMSON, 88926-0, PRINCIPAL TECHNICAL ARCHITECT, LIVR #### [facility] ([id number]) [address] [address] CBC AND AUTO DIFFon 06-08-19 25 ABSOLUTE BASOPHIL 0.1 X10E9/L Normal 0.0-0.2 [facility] Comment on above: Performed By: #### Ha SAMSON, 39147-4, PRINCIPAL TECHNICAL ARCHITECT, LIVR #### [facility] ([id number]) [address] [place] [address] ABSOLUTE NEUTROPHIL 4.0 X10E9/L Normal 1.5-6.6 [facility] Comment on above: Performed By: #### C MALI, 59264-8, PRINCIPAL TECHNICAL ARCHITECT, LIVR #### [facility] ([id number]) [address] [address] Basophils/100 WBC (Bld) 2.0 % Normal [facility] Comment on above: Performed By: #### Ha SAMSON, 58243-8, PRINCIPAL TECHNICAL ARCHITECT, LIVR #### [facility] ([id number]) [address] [place] [address] Eosinophils (Bld) [#/Vol] 0.3 10*3/uL Normal 0.0-0.4 [facility] Comment on above: Performed By: #### C MALI, 08203-7, PRINCIPAL TECHNICAL ARCHITECT, LIVR #### [facility] ([id number]) [address], [facility] [address] [place] [address] Eosinophils/100 WBC (Bld) 4.3 % Normal [facility] Comment on above: Performed By: #### C MALI, 04681-3, PRINCIPAL TECHNICAL ARCHITECT, LIVR #### [facility] ([id number]) [address], [facility] [address] [place] [address] Erythrocyte distribution width (RBC) [Ratio] 14.2 % Normal 11.5-15.0 [facility] Comment on above: Performed By: #### Ha SAMSON, 35153-8, PRINCIPAL TECHNICAL ARCHITECT, LIVR #### [facility] ([id number]) [address], [facility] [address] [place] [address] Hematocrit (Bld) [Volume fraction] 37.3 % Normal 35-47 [facility] Comment on above: Performed By: #### Ha SAMSON, 10380-9, PRINCIPAL TECHNICAL ARCHITECT, LIVR #### [facility] ([id number]) [address], [facility] [address] [place] [address] Hemoglobin (Bld) [Mass/Vol] 12.4 g/dL Normal 11.7-15.5 [facility] Comment on above: Performed By: #### Ha SAMSON, 26630-0, PRINCIPAL TECHNICAL ARCHITECT, LIVR #### [facility] ([id number]) [address], [facility] [address] [place] [address] Lymphocytes (Bld) [#/Vol] 0.9 10*3/uL Low 1.0-3.5 [facility] Comment on above: Performed By: #### Ha SAMSON, 98063-0, PRINCIPAL TECHNICAL ARCHITECT, LIVR #### [facility] ([id number]) [address], [address] [place] [address] Lymphocytes/100 WBC (Bld) 14.6 % Normal [facility] Comment on above: Performed By: #### Ha SAMSON, 12306-9, PRINCIPAL TECHNICAL ARCHITECT, LIVR #### [facility] ([id number]) [address], [facility] [address] [place] [address] MCH (RBC) [Entitic mass] 31.5 pg Normal 27-34 [facility] Comment on above: Performed By: #### C MALI, 95262-8, PRINCIPAL TECHNICAL ARCHITECT, LIVR #### [facility] ([id number]) [address], [address] [place] [address] MCHC (RBC) [Mass/Vol] 33.3 g/dL Normal 32-36 [facility] Comment on above: Performed By: #### Ha SAMSON, 26909-4, PRINCIPAL TECHNICAL ARCHITECT, LIVR #### [facility] ([id number]) [address], [facility] [address] [place] [address] MCV (RBC) [Entitic vol] 95 fL Normal 80-100 [facility] Comment on above: Performed By: #### Ha SAMSON, 59994-5, PRINCIPAL TECHNICAL ARCHITECT, LIVR #### [facility] ([id number]) [address], [address] [place] [address] Monocytes (Bld) [#/Vol] 0.8 10*3/uL Normal 0-0.9 [facility] Comment on above: Performed By: #### Ha SAMSON, 21449-5, PRINCIPAL TECHNICAL ARCHITECT, LIVR #### [facility] ([id number]) [address], [facility] [address] [place] [address] Monocytes/100 WBC (Bld) 12.7 % Normal [facility] Comment on above: Performed By: #### Ha SAMSON, 10684-5, PRINCIPAL TECHNICAL ARCHITECT, LIVR #### [facility] ([id number]) [address], [address] [place] [address] Neutrophils/100 WBC (Bld) 66.4 % Normal [facility] Comment on above: Performed By: #### C MALI, 27587-7, PRINCIPAL TECHNICAL ARCHITECT, LIVR #### [facility] ([id number]) [address], [address] [place] [address] Platelet mean volume (Bld) [Entitic vol] 9.1 fL Normal 7-12 [facility] Comment on above: Performed By: #### C MALI, 75737-4, PRINCIPAL TECHNICAL ARCHITECT, LIVR #### [facility] ([id number]) [address], [address] [place] [address] Platelets (Bld) [#/Vol] 323 10*3/uL Normal 150-450 [facility] Comment on above: Performed By: #### C MALI, 48444-2, PRINCIPAL TECHNICAL ARCHITECT, LIVR #### [facility] ([id number]) [address] [address] [place] [address] RBC COUNT 3.94 X10E12/L Normal 3.80-5.20 [facility] Comment on above: Performed By: #### C MALI, 61129-1, PRINCIPAL TECHNICAL ARCHITECT, LIVR #### [facility] ([id number]) [address] [place] [address] WBC (Bld) [#/Vol] 6.0 10*3/uL Normal 4.0-11.0 [facility] Comment on above: Performed By: #### C MALI, 94987-2, PRINCIPAL TECHNICAL ARCHITECT, LIVR #### [facility] ([id number]) [address], [address] [place] [address] CREATININEon 06-07-2024 Creatinine [Mass/Vol] 0.64 mg/dL Normal 0.40-1.00 [facility] Comment on above: Result Comment: METH OD TRACEABLE TO IDMS STANDARD Performed By: #### C MALI, 00052-1, PRINCIPAL TECHNICAL ARCHITECT, LIVR #### [facility] ([id number]) [address] [address] GFR/1.73 sq M.predicted among non-blacks MDRD (S/P/Bld) [Vol rate/Area] 87 mL/min/{1.73_m2} Normal >59 [facility] Comment on above: Result Comment: Reported eGFR is based on the CKD-EPI 2020 equation that does not use a race coefficient. Performed By: #### C MALI, 22857-4, PRINCIPAL TECHNICAL ARCHITECT, LIVR #### [facility] ([id number]) [address] [address] ESR Photometric method (Bld) [Velocity]on 06-07-2024 ESR, ERYTHROCYTE SEDIMENTATION RATE 8 mm/h Normal 0-30 [facility] Comment on above: Performed By: #### Ha SAMSON, 75209-1, PRINCIPAL TECHNICAL ARCHITECT, LIVR #### [facility] ([id number]) [address] [address] LIVER PANELon 06-07-2024 Albumin [Mass/Vol] 3.5 g/dL Normal 3.2-5.3 [facility] Comment on above: Performed By: #### Ha SAMSON, 74826-1, PRINCIPAL TECHNICAL ARCHITECT, LIVR #### [facility] ([id number]) [address] [address] ALP [Catalytic activity/Vol] 70 U/L Normal 39-130 [facility] Comment on above: Performed By: #### Ha SAMSON, 00669-4, PRINCIPAL TECHNICAL ARCHITECT, LIVR #### [facility] ([id number]) [address] [address] ALT [Catalytic activity/Vol] 17 U/L Normal 0-31 [facility] Comment on above: Performed By: #### Ha BCA, 05766-4, PRINCIPAL TECHNICAL ARCHITECT, LIVR #### [facility] ([id number]) [address], [address] [place] [address] AST [Catalytic activity/Vol] 27 U/L Normal 0-41 [facility] Comment on above: Performed By: #### C MALI, 63330-0, PRINCIPAL TECHNICAL ARCHITECT, LIVR #### [facility] ([id number]) [address], [address] [place] [address] Bilirubin [Mass/Vol] 0.4 mg/dL Normal 0.3-1.2 [facility] Comment on above: Performed By: #### C MALI, 84437-8, PRINCIPAL TECHNICAL ARCHITECT, LIVR #### [facility] ([id number]) [address], [address] [place] [address] Bilirubin.direct [Mass/Vol] 0.1 mg/dL Normal 0.0-0.4 [facility] Comment on above: Performed By: #### C MALI, 38084-4, PRINCIPAL TECHNICAL ARCHITECT, LIVR #### [facility] ([id number]) [address], [address] [place] [address] Protein [Mass/Vol] 5.9 g/dL Low 6.0-8.0 [facility] Comment on above: Performed By: #### C MALI, 95976-5, PRINCIPAL TECHNICAL ARCHITECT, LIVR #### [facility] ([id number]) [address], [address] [place] [address] CBC AND AUTO DIFFon 05-31-20 25 ABSOLUTE BASOPHIL 0.1 X10E9/L Normal 0.0-0.2 [facility] Comment on above: Performed By: #### C MALI, 44517-7, PRINCIPAL TECHNICAL ARCHITECT, LIVR #### [facility] ([id number]) [address], [address] [place] [address] ABSOLUTE NEUTROPHIL 4.0 X10E9/L Normal 1.5-6.6 [facility] Comment on above: Performed By: #### C MALI, 22706-5, PRINCIPAL TECHNICAL ARCHITECT, LIVR #### [facility] ([id number]) [address], [address] [place] [address] Basophils/100 WBC (Bld) 1.5 % Normal [facility] Comment on above: Performed By: #### C MALI, 34219-5, PRINCIPAL TECHNICAL ARCHITECT, LIVR #### [facility] ([id number]) [address], [address] [place] [address] Eosinophils (Bld) [#/Vol] 0.1 10*3/uL Normal 0.0-0.4 [facility] Comment on above: Performed By: #### Ha SAMSON, 45492-5, PRINCIPAL TECHNICAL ARCHITECT, LIVR #### [facility] ([id number]) [address], [facility] [address] [place] [address] Eosinophils/100 WBC (Bld) 2.2 % Normal [facility] Comment on above: Performed By: #### Ha SAMSON, 50009-2, PRINCIPAL TECHNICAL ARCHITECT, LIVR #### [facility] ([id number]) [address], [facility] [address] [place] [address] Erythrocyte distribution width (RBC) [Ratio] 14.0 % Normal 11.5-15.0 [facility] Comment on above: Performed By: #### Ha SAMSON, 98087-2, PRINCIPAL TECHNICAL ARCHITECT, LIVR #### [facility] ([id number]) [address], [address] [place] [address] Hematocrit (Bld) [Volume fraction] 39.7 % Normal 35-47 [facility] Comment on above: Performed By: #### Ha SAMSON, 92614-7, PRINCIPAL TECHNICAL ARCHITECT, LIVR #### [facility] ([id number]) [address], [address] [place] [address] Hemoglobin (Bld) [Mass/Vol] 13.2 g/dL Normal 11.7-15.5 [facility] Comment on above: Performed By: #### C MALI, 67158-2, PRINCIPAL TECHNICAL ARCHITECT, LIVR #### [facility] ([id number]) [address], [address] [place] [address] Lymphocytes (Bld) [#/Vol] 1.1 10*3/uL Normal 1.0-3.5 [facility] Comment on above: Performed By: #### Ha SAMSON, 51077-1, PRINCIPAL TECHNICAL ARCHITECT, LIVR #### [facility] ([id number]) [address], [address] [place] [address] Lymphocytes/100 WBC (Bld) 18.1 % Normal [facility] Comment on above: Performed By: #### Ha SAMSON, 06503-9, PRINCIPAL TECHNICAL ARCHITECT, LIVR #### [facility] ([id number]) [address], [address] [place] [address] MCH (RBC) [Entitic mass] 31.4 pg Normal 27-34 [facility] Comment on above: Performed By: #### Ha SAMSON, 24440-9, PRINCIPAL TECHNICAL ARCHITECT, LIVR #### [facility] ([id number]) [address], [address] [place] [address] MCHC (RBC) [Mass/Vol] 33.2 g/dL Normal 32-36 [facility] Comment on above: Performed By: #### Ha SAMSON, 99192-1, PRINCIPAL TECHNICAL ARCHITECT, LIVR #### [facility] ([id number]) [address], [address] [place] [address] MCV (RBC) [Entitic vol] 95 fL Normal 80-100 [facility] Comment on above: Performed By: #### Ha SAMSON, 83060-1, PRINCIPAL TECHNICAL ARCHITECT, LIVR #### [facility] ([id number]) [address], [address] [place] [address] Monocytes (Bld) [#/Vol] 0.6 10*3/uL Normal 0-0.9 [facility] Comment on above: Performed By: #### C MALI, 86965-7, PRINCIPAL TECHNICAL ARCHITECT, LIVR #### [facility] ([id number]) [address], [address] [place] [address] Monocytes/100 WBC (Bld) 9.7 % Normal [facility] Comment on above: Performed By: #### Ha SAMSON, 41034-8, PRINCIPAL TECHNICAL ARCHITECT, LIVR #### [facility] ([id number]) [address], [address] [place] [address] Neutrophils/100 WBC (Bld) 68.5 % Normal [facility] Comment on above: Performed By: #### Ha SAMSON, 51816-9, PRINCIPAL TECHNICAL ARCHITECT, LIVR #### [facility] ([id number]) [address], [address] [place] [address] Platelet mean volume (Bld) [Entitic vol] 9.1 fL Normal 7-12 [facility] Comment on above: Performed By: #### Ha SAMSON, 34752-5, PRINCIPAL TECHNICAL ARCHITECT, LIVR #### [facility] ([id number]) [address], [address] [place] [address] Platelets (Bld) [#/Vol] 241 10*3/uL Normal 150-450 [facility] Comment on above: Performed By: #### Ha SAMSON, 33881-9, PRINCIPAL TECHNICAL ARCHITECT, LIVR #### [facility] ([id number]) [address], [address] [place] [address] RBC COUNT 4.19 X10E12/L Normal 3.80-5.20 [facility] Comment on above: Performed By: #### Ha SAMSON, 79149-5, PRINCIPAL TECHNICAL ARCHITECT, LIVR #### [facility] ([id number]) [address] [place] [address] WBC (Bld) [#/Vol] 5.9 10*3/uL Normal 4.0-11.0 [facility] Comment on above: Performed By: #### C BCA, 86624-5, PRINCIPAL TECHNICAL ARCHITECT, LIVR #### [facility] ([id number]) [address], [address] [place] [address] COMPREHENSIVE METABOLIC PANE Henry 05-31-2024 Albumin [Mass/Vol] 3.4 g/dL Normal 3.2-5.3 [facility] Comment on above: Performed By: #### C BCA, 16183-2, PRINCIPAL TECHNICAL ARCHITECT, LIVR #### [facility] ([id number]) [address], [address] [place] [address] ALP [Catalytic activity/Vol] 63 U/L Normal 39-130 [facility] Comment on above: Performed By: #### C BCA, 03073-2, PRINCIPAL TECHNICAL ARCHITECT, LIVR #### [facility] ([id number]) [address], [address] [place] [address] ALT [Catalytic activity/Vol] 14 U/L Normal 0-31 [facility] Comment on above: Performed By: #### C BCA, 12426-3, PRINCIPAL TECHNICAL ARCHITECT, LIVR #### [facility] ([id number]) [address] [place] [address] Anion gap [Moles/Vol] 7 mmol/L Normal 5-15 [facility] Comment on above: Performed By: #### C BCA, 92058-9, PRINCIPAL TECHNICAL ARCHITECT, LIVR #### [facility] ([id number]) [address] [place] [address] AST [Catalytic activity/Vol] 23 U/L Normal 0-41 [facility] Comment on above: Performed By: #### C BCA, 25349-8, PRINCIPAL TECHNICAL ARCHITECT, LIVR #### [facility] ([id number]) [address] [place] [address] Bilirubin [Mass/Vol] 0.5 mg/dL Normal 0.3-1.2 [facility] Comment on above: Performed By: #### C BCA, 45421-3, PRINCIPAL TECHNICAL ARCHITECT, LIVR #### [facility] ([id number]) [address] [place] [address] Calcium [Mass/Vol] 9.0 mg/dL Normal 8.5-10.5 [facility] Comment on above: Performed By: #### C BCA, 18293-0, PRINCIPAL TECHNICAL ARCHITECT, LIVR #### [facility] ([id number]) [address], [address] [place] [address] Chloride [Moles/Vol] 106 mmol/L Normal 98-109 [facility] Comment on above: Performed By: #### C BCA, 39100-3, PRINCIPAL TECHNICAL ARCHITECT, LIVR #### [facility] ([id number]) [address], [address] [place] [address] CO2 [Moles/Vol] 27 mmol/L Normal 22-32 [facility] Comment on above: Performed By: #### C BCA, 57218-8, PRINCIPAL TECHNICAL ARCHITECT, LIVR #### [facility] ([id number]) [address], [address] [place] [address] Creatinine [Mass/Vol] 0.72 mg/dL Normal 0.40-1.00 [facility] Comment on above: Result Comment: METH OD TRACEABLE TO IDMS STANDARD Performed By: #### C BCA, 46677-8, PRINCIPAL TECHNICAL ARCHITECT, LIVR #### [facility] ([id number]) [address], [address] [place] [address] GFR/1.73 sq M.predicted among non-blacks MDRD (S/P/Bld) [Vol rate/Area] 82 mL/min/{1.73_m2} Normal >59 [facility] Comment on above: Result Comment: Reported eGFR is based on the CKD-EPI 2020 equation that does not use a race coefficient. Performed By: #### C BCA, 99870-0, PRINCIPAL TECHNICAL ARCHITECT, LIVR #### [facility] ([id number]) [address], [address] [place] [address] Glucose [Mass/Vol] 85 mg/dL Normal 65-99 [facility] Comment on above: Performed By: #### C BCA, 32079-4, PRINCIPAL TECHNICAL ARCHITECT, LIVR #### [facility] ([id number]) [address], [address] [place] [address] Potassium [Moles/Vol] 3.6 mmol/L Normal 3.5-5.0 [facility] Comment on above: Performed By: #### C BCA, 23401-3, PRINCIPAL TECHNICAL ARCHITECT, LIVR #### [facility] ([id number]) [address], [address] [place] [address] Protein [Mass/Vol] 6.0 g/dL Normal 6.0-8.0 [facility] Comment on above: Performed By: #### C BCA, 78871-1, PRINCIPAL TECHNICAL ARCHITECT, LIVR #### [facility] ([id number]) [address], [address] [place] [address] Sodium [Moles/Vol] 140 mmol/L Normal 134-146 [facility] Comment on above: Performed By: #### C BCA, 96099-8, PRINCIPAL TECHNICAL ARCHITECT, LIVR #### [facility] ([id number]) [address], [address] [place] [address] Urea nitrogen [Mass/Vol] 17 mg/dL Normal 5-27 [facility] Comment on above: Performed By: #### C BCA, 62272-5, PRINCIPAL TECHNICAL ARCHITECT, LIVR #### [facility] ([id number]) [address], [address] [place] [address] XR LUMBAR SPINE 2 OR 3Von [address] [address] XRay Report Signed Patient: ANGELIKA GONCALVES MR#: [id number] : 1940 Acct:[id number] Age/Sex: 84 / F ADM Date: 05/09/24 Loc: RAD Attending Dr: Boone Ewing M.D. Ordering Physician: Boone Ewing M.D. Date of Service: 05/09/24 Procedure(s): XR lumbar spine 2-3V Accession Number(s): [id number] cc: Boone Ewing M.D. 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 Moderate to severe degenerative spondylosis and facet osteoarthropathy DISC SPACES: Moderate to severe multilevel disc space narrowing with endplate sclerosis and vacuum disks PARASPINOUS: Negative. No paraspinous abnormality is seen. OTHER: Negative. XR/XR lumbar spine 2-3V IMPRESSION: Moderate to severe degenerative changes with rotatory dextroscoliosis Electronically authenticated by: SEKOU HUMPHRIES Date: 05/12/2024 10:18 Dictated By: Sekou Humphries M.D. Signed By: 05/12/24 1020 DD/ 1018 TD/TT: Computer Applications Instructor: [facility] Radiology, Radiologist, MD - 05/12/2024 [place] [address] XRay Report Signed Patient: ANGELIKA GONCALVES MR#: [id number] : 1940 Acct:[id number] Age/Sex: 84 / F ADM Date: 05/09/24 Loc: RAD Attending Dr: Boone Ewing M.D. Ordering Physician: Boone Ewing M.D. Date of Service: 05/09/24 Procedure(s): XR lumbar spine 2-3V Accession Number(s): [id number] cc: Boone Ewing M.D. 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 Moderate to severe degenerative spondylosis and facet osteoarthropathy DISC SPACES: Moderate to severe multilevel disc space narrowing with endplate sclerosis and vacuum disks PARASPINOUS: Negative. No paraspinous abnormality is seen. OTHER: Negative. XR/XR lumbar spine 2-3V IMPRESSION: Moderate to severe degenerative changes with rotatory dextroscoliosis Electronically authenticated by: SEKOU HUMPHRIES Date: 05/12/2024 10:18 Dictated By: Sekou Humphries M.D. Signed By: 05/12/24 1020 DD/ 1018 TD/TT: Computer Applications Instructor: [facility] Radiology Study observation (narrative) [facility] XR LUMBAR SPINE 2 OR 3VOrder ed By: Radiologist Radiology on 05-12-2024 [facility] Work Phone: Urinalysis macro (dipstick) panel (U)on 05-09-2024 Bilirubin, UA Negative Negative - 4(70) +++ mg/dL [facility] Blood, UA Positive Negative - 50 Cr/mcL [facility] Clarity, UA Clear [facility] Color, UA Dark Terrie [facility] Glucose, UA Negative Negative - 2000(110) ++++ mg/dL [facility] Interpretation and review of laboratory results Normal [facility] Ketones, UA Negative Negative - 160(16) ++++ mg/dL [facility] Leukocytes, UA Negative Negative - 500+++ Radha/mcL [facility] Nitrite, UA Few Negative - Positive [facility] pH, UA 6 5 - 9 [facility] Protein, UA Negative Negative - 2000(20) ++++ mg/dL [facility] Spec Grav, UA 1.025 1 - 1.03 [facility] Urobilinogen, UA 0.2 0.2 - 12 mg/dL [facility] CBC AND AUTO DIFFon 05-03-19 25 ABSOLUTE BASOPHIL 0.1 X10E9/L Normal 0.0-0.2 [facility] Comment on above: Performed By: #### Ha SAMSON 26835-4, PRINCIPAL TECHNICAL ARCHITECT, LIVR #### [facility] ([id number]) [address], [address] [place] [address] ABSOLUTE NEUTROPHIL 4.6 X10E9/L Normal 1.5-6.6 [facility] Comment on above: Performed By: #### Ha SAMSON 14287-4, PRINCIPAL TECHNICAL ARCHITECT, LIVR #### [facility] ([id number]) [address], [facility] [address] [place] [address] Basophils/100 WBC (Bld) 1.3 % Normal [facility] Comment on above: Performed By: #### Ha SAMSON 50015-0, PRINCIPAL TECHNICAL ARCHITECT, LIVR #### [facility] ([id number]) [address], [address] [place] [address] Eosinophils (Bld) [#/Vol] 0.2 10*3/uL Normal 0.0-0.4 [facility] Comment on above: Performed By: #### Ha SAMSON 98596-9, PRINCIPAL TECHNICAL ARCHITECT, LIVR #### [facility] ([id number]) [address], [facility] [address] [place] [address] Eosinophils/100 WBC (Bld) 2.6 % Normal [facility] Comment on above: Performed By: #### Ha SAMSON 75803-8, PRINCIPAL TECHNICAL ARCHITECT, LIVR #### [facility] ([id number]) [address], [address] [place] [address] Erythrocyte distribution width (RBC) [Ratio] 13.6 % Normal 11.5-15.0 [facility] Comment on above: Performed By: #### Ha SAMSON, 30071-5, PRINCIPAL TECHNICAL ARCHITECT, LIVR #### [facility] ([id number]) [address], [facility] [address] [place] [address] Hematocrit (Bld) [Volume fraction] 39.3 % Normal 35-47 [facility] Comment on above: Performed By: #### Ha SAMSON, 97330-3, PRINCIPAL TECHNICAL ARCHITECT, LIVR #### [facility] ([id number]) [address], [facility] [address] [place] [address] Hemoglobin (Bld) [Mass/Vol] 13.5 g/dL Normal 11.7-15.5 [facility] Comment on above: Performed By: #### Ha SAMSON, 73197-6, PRINCIPAL TECHNICAL ARCHITECT, LIVR #### [facility] ([id number]) [address], [facility] [address] [place] [address] Lymphocytes (Bld) [#/Vol] 1.2 10*3/uL Normal 1.0-3.5 [facility] Comment on above: Performed By: #### Ha SAMSON, 34432-3, PRINCIPAL TECHNICAL ARCHITECT, LIVR #### [facility] ([id number]) [address], [facility] [address] [place] [address] Lymphocytes/100 WBC (Bld) 17.2 % Normal [facility] Comment on above: Performed By: #### Ha SAMSON, 82005-1, PRINCIPAL TECHNICAL ARCHITECT, LIVR #### [facility] ([id number]) [address], [address] [place] [address] MCH (RBC) [Entitic mass] 32.9 pg Normal 27-34 [facility] Comment on above: Performed By: #### Ha SAMSON, 48516-2, PRINCIPAL TECHNICAL ARCHITECT, LIVR #### [facility] ([id number]) [address], [address] [place] [address] MCHC (RBC) [Mass/Vol] 34.4 g/dL Normal 32-36 [facility] Comment on above: Performed By: #### Ha SAMSON, 37053-0, PRINCIPAL TECHNICAL ARCHITECT, LIVR #### [facility] ([id number]) [address], [address] [place] [address] MCV (RBC) [Entitic vol] 96 fL Normal 80-100 [facility] Comment on above: Performed By: #### Ha SAMSON, 00462-5, PRINCIPAL TECHNICAL ARCHITECT, LIVR #### [facility] ([id number]) [address], [address] [place] [address] Monocytes (Bld) [#/Vol] 0.6 10*3/uL Normal 0-0.9 [facility] Comment on above: Performed By: #### Ha SAMSON, 81150-8, PRINCIPAL TECHNICAL ARCHITECT, LIVR #### [facility] ([id number]) [address], [address] [place] [address] Monocytes/100 WBC (Bld) 9.7 % Normal [facility] Comment on above: Performed By: #### Ha SAMSON, 02793-7, PRINCIPAL TECHNICAL ARCHITECT, LIVR #### [facility] ([id number]) [address], [address] [place] [address] Neutrophils/100 WBC (Bld) 69.2 % Normal [facility] Comment on above: Performed By: #### Ha SAMSON, 54034-9, PRINCIPAL TECHNICAL ARCHITECT, LIVR #### [facility] ([id number]) [address], [address] [place] [address] Platelet mean volume (Bld) [Entitic vol] 9.7 fL Normal 7-12 [facility] Comment on above: Performed By: #### Ha SAMSON, 93908-8, PRINCIPAL TECHNICAL ARCHITECT, LIVR #### [facility] ([id number]) [address], [address] [place] [address] Platelets (Bld) [#/Vol] 290 10*3/uL Normal 150-450 [facility] Comment on above: Performed By: #### Ha SAMSON, 60009-9, PRINCIPAL TECHNICAL ARCHITECT, LIVR #### [facility] ([id number]) [address], [address] [place] [address] RBC COUNT 4.11 X10E12/L Normal 3.80-5.20 [facility] Comment on above: Performed By: #### Ha SAMSON, 09219-9, PRINCIPAL TECHNICAL ARCHITECT, LIVR #### [facility] ([id number]) [address], [address] [place] [address] WBC (Bld) [#/Vol] 6.7 10*3/uL Normal 4.0-11.0 [facility] Comment on above: Performed By: #### Ha SAMSON, 37542-1, PRINCIPAL TECHNICAL ARCHITECT, LIVR #### [facility] ([id number]) [address], [address] [place] [address] COMPREHENSIVE METABOLIC PANE Henry 05-03-2024 Albumin [Mass/Vol] 3.6 g/dL Normal 3.2-5.3 [facility] Comment on above: Performed By: #### Ha SAMSON, 47674-0, PRINCIPAL TECHNICAL ARCHITECT, LIVR #### [facility] ([id number]) [address], [address] [place] [address] ALP [Catalytic activity/Vol] 80 U/L Normal 39-130 [facility] Comment on above: Performed By: #### Ha SAMSON, 51374-7, PRINCIPAL TECHNICAL ARCHITECT, LIVR #### [facility] ([id number]) [address], [address] [place] [address] ALT [Catalytic activity/Vol] 12 U/L Normal 0-31 [facility] Comment on above: Performed By: #### C BCA, 17218-9, PRINCIPAL TECHNICAL ARCHITECT, LIVR #### [facility] ([id number]) [address], [address] [place] [address] Anion gap [Moles/Vol] 14 mmol/L Normal 5-15 [facility] Comment on above: Performed By: #### C BCA, 44202-7, PRINCIPAL TECHNICAL ARCHITECT, LIVR #### [facility] ([id number]) [address], [address] [place] [address] AST [Catalytic activity/Vol] 29 U/L Normal 0-41 [facility] Comment on above: Performed By: #### C BCA, 96453-7, PRINCIPAL TECHNICAL ARCHITECT, LIVR #### [facility] ([id number]) [address], [address] [place] [address] Bilirubin [Mass/Vol] 0.5 mg/dL Normal 0.3-1.2 [facility] Comment on above: Performed By: #### C BCA, 85933-6, PRINCIPAL TECHNICAL ARCHITECT, LIVR #### [facility] ([id number]) [address], [address] [place] [address] Calcium [Mass/Vol] 9.1 mg/dL Normal 8.5-10.5 [facility] Comment on above: Performed By: #### C MALI, 36691-1, PRINCIPAL TECHNICAL ARCHITECT, LIVR #### [facility] ([id number]) [address], [address] [place] [address] Chloride [Moles/Vol] 106 mmol/L Normal 98-109 [facility] Comment on above: Performed By: #### C BCA, 70164-2, PRINCIPAL TECHNICAL ARCHITECT, LIVR #### [facility] ([id number]) [address], [address] [place] [address] CO2 [Moles/Vol] 20 mmol/L Low 22-32 [facility] Comment on above: Performed By: #### C BCA, 51420-8, PRINCIPAL TECHNICAL ARCHITECT, LIVR #### [facility] ([id number]) [address] [address] [place] [address] Creatinine [Mass/Vol] 0.74 mg/dL Normal 0.40-1.00 [facility] Comment on above: Result Comment: METH OD TRACEABLE TO IDMS STANDARD Performed By: #### C BCA, 23848-0, PRINCIPAL TECHNICAL ARCHITECT, LIVR #### [facility] ([id number]) [address], [facility] [address] [place] [address] GFR/1.73 sq M.predicted among non-blacks MDRD (S/P/Bld) [Vol rate/Area] 80 mL/min/{1.73_m2} Normal >59 [facility] Comment on above: Result Comment: Reported eGFR is based on the CKD-EPI 2020 equation that does not use a race coefficient. Performed By: #### C BCA, 50935-2, PRINCIPAL TECHNICAL ARCHITECT, LIVR #### [facility] ([id number]) [address] [address] [place] [address] Glucose [Mass/Vol] 117 mg/dL High 65-99 [facility] Comment on above: Performed By: #### C BCA, 52877-8, PRINCIPAL TECHNICAL ARCHITECT, LIVR #### [facility] ([id number]) [address] [address] [place] [address] Potassium [Moles/Vol] 3.6 mmol/L Normal 3.5-5.0 [facility] Comment on above: Performed By: #### C BCA, 49596-0, PRINCIPAL TECHNICAL ARCHITECT, LIVR #### [facility] ([id number]) [address] [address] [place] [address] Protein [Mass/Vol] 6.4 g/dL Normal 6.0-8.0 [facility] Comment on above: Performed By: #### C BCA, 17059-9, PRINCIPAL TECHNICAL ARCHITECT, LIVR #### [facility] ([id number]) [address], [address] [place] [address] Sodium [Moles/Vol] 140 mmol/L Normal 134-146 [facility] Comment on above: Performed By: #### Ha SAMSON, 27879-3, PRINCIPAL TECHNICAL ARCHITECT, LIVR #### [facility] ([id number]) [address], [address] [place] [address] Urea nitrogen [Mass/Vol] 17 mg/dL Normal 5-27 [facility] Comment on above: Performed By: #### C MALI, 33333-3, PRINCIPAL TECHNICAL ARCHITECT, LIVR #### [facility] ([id number]) [address], [address] [place] [address] POCT EKGon 04-19-[address] [facility] CBC AND AUTO DIFFon 04-12-19 ABSOLUTE BASOPHIL 0.1 X10E9/L Normal 0.0-0.2 [facility] Comment on above: Performed By: #### Ha SAMSON, 30811-3, PRINCIPAL TECHNICAL ARCHITECT, LIVR #### [facility] ([id number]) [address], [address] [place] [address] ABSOLUTE NEUTROPHIL 4.4 X10E9/L Normal 1.5-6.6 [facility] Comment on above: Performed By: #### Ha SAMSON, 44496-0, PRINCIPAL TECHNICAL ARCHITECT, LIVR #### [facility] ([id number]) [address], [address] [place] [address] Basophils/100 WBC (Bld) 2.1 % Normal [facility] Comment on above: Performed By: #### Ha SAMSON, 01136-5, PRINCIPAL TECHNICAL ARCHITECT, LIVR #### [facility] ([id number]) [address], [address] [place] [address] Eosinophils (Bld) [#/Vol] 0.2 10*3/uL Normal 0.0-0.4 [facility] Comment on above: Performed By: #### Ha SAMSON, 53612-3, PRINCIPAL TECHNICAL ARCHITECT, LIVR #### [facility] ([id number]) [address], [address] [place] [address] Eosinophils/100 WBC (Bld) 3.0 % Normal [facility] Comment on above: Performed By: #### C MALI, 78799-7, PRINCIPAL TECHNICAL ARCHITECT, LIVR #### [facility] ([id number]) [address], [address] [place] [address] Erythrocyte distribution width (RBC) [Ratio] 14.1 % Normal 11.5-15.0 [facility] Comment on above: Performed By: #### C MALI, 39460-5, PRINCIPAL TECHNICAL ARCHITECT, LIVR #### [facility] ([id number]) [address], [facility] [address] [place] [address] Hematocrit (Bld) [Volume fraction] 37.9 % Normal 35-47 [facility] Comment on above: Performed By: #### Ha SAMSON, 68898-1, PRINCIPAL TECHNICAL ARCHITECT, LIVR #### [facility] ([id number]) [address], [facility] [address] [place] [address] Hemoglobin (Bld) [Mass/Vol] 12.8 g/dL Normal 11.7-15.5 [facility] Comment on above: Performed By: #### C MALI, 06001-9, PRINCIPAL TECHNICAL ARCHITECT, LIVR #### [facility] ([id number]) [address], [address] [place] [address] Lymphocytes (Bld) [#/Vol] 1.0 10*3/uL Normal 1.0-3.5 [facility] Comment on above: Performed By: #### C MALI, 65000-2, PRINCIPAL TECHNICAL ARCHITECT, LIVR #### [facility] ([id number]) [address], [address] [place] [address] Lymphocytes/100 WBC (Bld) 15.9 % Normal [facility] Comment on above: Performed By: #### C MAIL, 78061-4, PRINCIPAL TECHNICAL ARCHITECT, LIVR #### [facility] ([id number]) [address], [address] [place] [address] MCH (RBC) [Entitic mass] 32.2 pg Normal 27-34 [facility] Comment on above: Performed By: #### C MALI, 29902-9, PRINCIPAL TECHNICAL ARCHITECT, LIVR #### [facility] ([id number]) [address], [address] [place] [address] MCHC (RBC) [Mass/Vol] 33.7 g/dL Normal 32-36 [facility] Comment on above: Performed By: #### Ha SAMSON, 06298-1, PRINCIPAL TECHNICAL ARCHITECT, LIVR #### [facility] ([id number]) [address], [address] [place] [address] MCV (RBC) [Entitic vol] 96 fL Normal 80-100 [facility] Comment on above: Performed By: #### Ha SAMSON, 14475-4, PRINCIPAL TECHNICAL ARCHITECT, LIVR #### [facility] ([id number]) [address], [address] [place] [address] Monocytes (Bld) [#/Vol] 0.7 10*3/uL Normal 0-0.9 [facility] Comment on above: Performed By: #### Ha SAMSON, 69118-3, PRINCIPAL TECHNICAL ARCHITECT, LIVR #### [facility] ([id number]) [address], [address] [place] [address] Monocytes/100 WBC (Bld) 10.9 % Normal [facility] Comment on above: Performed By: #### Ha SAMSON, 09552-4, PRINCIPAL TECHNICAL ARCHITECT, LIVR #### [facility] ([id number]) [address], [address] [place] [address] Neutrophils/100 WBC (Bld) 68.1 % Normal [facility] Comment on above: Performed By: #### Ha SAMSON, 31862-4, PRINCIPAL TECHNICAL ARCHITECT, LIVR #### [facility] ([id number]) [address], [address] [place] [address] Platelet mean volume (Bld) [Entitic vol] 9.0 fL Normal 7-12 [facility] Comment on above: Performed By: #### Ha SAMSON, 44733-2, PRINCIPAL TECHNICAL ARCHITECT, LIVR #### [facility] ([id number]) [address], [address] [place] [address] Platelets (Bld) [#/Vol] 300 10*3/uL Normal 150-450 [facility] Comment on above: Performed By: #### Ha SAMSON, 60107-5, PRINCIPAL TECHNICAL ARCHITECT, LIVR #### [facility] ([id number]) [address], [address] [place] [address] RBC COUNT 3.97 X10E12/L Normal 3.80-5.20 [facility] Comment on above: Performed By: #### Ha SAMSON, 38475-7, PRINCIPAL TECHNICAL ARCHITECT, LIVR #### [facility] ([id number]) [address], [address] [place] [address] WBC (Bld) [#/Vol] 6.5 10*3/uL Normal 4.0-11.0 [facility] Comment on above: Performed By: #### Ha SAMSON, 43269-8, PRINCIPAL TECHNICAL ARCHITECT, LIVR #### [facility] ([id number]) [address], [address] [place] [address] COMPREHENSIVE METABOLIC PANE Henry 04-12-2024 Albumin [Mass/Vol] 3.6 g/dL Normal 3.2-5.3 [facility] Comment on above: Performed By: #### Ha SAMSON, 67728-2, PRINCIPAL TECHNICAL ARCHITECT, LIVR #### [facility] ([id number]) [address], [address] [place] [address] ALP [Catalytic activity/Vol] 79 U/L Normal 39-130 [facility] Comment on above: Performed By: #### C MALI, 55614-6, PRINCIPAL TECHNICAL ARCHITECT, LIVR #### [facility] ([id number]) [address], [address] [place] [address] ALT [Catalytic activity/Vol] 15 U/L Normal 0-31 [facility] Comment on above: Performed By: #### C MALI, 55077-8, PRINCIPAL TECHNICAL ARCHITECT, LIVR #### [facility] ([id number]) [address], [address] [place] [address] Anion gap [Moles/Vol] 10 mmol/L Normal 5-15 [facility] Comment on above: Performed By: #### C MALI, 21371-1, PRINCIPAL TECHNICAL ARCHITECT, LIVR #### [facility] ([id number]) [address], [address] [place] [address] AST [Catalytic activity/Vol] 26 U/L Normal 0-41 [facility] Comment on above: Performed By: #### C MALI, 38913-8, PRINCIPAL TECHNICAL ARCHITECT, LIVR #### [facility] ([id number]) [address], [address] [place] [address] Bilirubin [Mass/Vol] 0.4 mg/dL Normal 0.3-1.2 [facility] Comment on above: Performed By: #### C MALI, 31362-1, PRINCIPAL TECHNICAL ARCHITECT, LIVR #### [facility] ([id number]) [address], [address] [place] [address] Calcium [Mass/Vol] 9.4 mg/dL Normal 8.5-10.5 [facility] Comment on above: Performed By: #### C BCA, 07920-4, PRINCIPAL TECHNICAL ARCHITECT, LIVR #### [facility] ([id number]) [address], [address] [place] [address] Chloride [Moles/Vol] 106 mmol/L Normal 98-109 [facility] Comment on above: Performed By: #### C BCA, 40522-0, PRINCIPAL TECHNICAL ARCHITECT, LIVR #### [facility] ([id number]) [address], [address] [place] [address] CO2 [Moles/Vol] 23 mmol/L Normal 22-32 [facility] Comment on above: Performed By: #### C BCA, 26840-4, PRINCIPAL TECHNICAL ARCHITECT, LIVR #### [facility] ([id number]) [address], [address] [place] [address] Creatinine [Mass/Vol] 0.72 mg/dL Normal 0.40-1.00 [facility] Comment on above: Result Comment: METH OD TRACEABLE TO IDMS STANDARD Performed By: #### C AMLI, 50245-9, PRINCIPAL TECHNICAL ARCHITECT, LIVR #### [facility] ([id number]) [address], [facility] [address] [place] [address] GFR/1.73 sq M.predicted among non-blacks MDRD (S/P/Bld) [Vol rate/Area] 82 mL/min/{1.73_m2} Normal >59 [facility] Comment on above: Result Comment: Reported eGFR is based on the CKD-EPI 2020 equation that does not use a race coefficient. Performed By: #### C BCA, 10011-2, PRINCIPAL TECHNICAL ARCHITECT, LIVR #### [facility] ([id number]) [address] [address] [place] [address] Glucose [Mass/Vol] 117 mg/dL High 65-99 [facility] Comment on above: Performed By: #### C BCA, 91199-3, PRINCIPAL TECHNICAL ARCHITECT, LIVR #### [facility] ([id number]) [address] [address] [place] [address] Potassium [Moles/Vol] 3.7 mmol/L Normal 3.5-5.0 [facility] Comment on above: Performed By: #### C BCA, 34434-2, PRINCIPAL TECHNICAL ARCHITECT, LIVR #### [facility] ([id number]) [address], [address] [address] Protein [Mass/Vol] 6.1 g/dL Normal 6.0-8.0 [facility] [facility] Comment on above: Performed By: #### C MALI, 97600-2, PRINCIPAL TECHNICAL ARCHITECT, LIVR #### [facility] ([id number]) [address], [address] [address] Sodium [Moles/Vol] 139 mmol/L Normal 134-146 [facility] Comment on above: Performed By: #### C MALI, 61893-1, PRINCIPAL TECHNICAL ARCHITECT, LIVR #### [facility] ([id number]) [address] [address] Urea nitrogen [Mass/Vol] 22 mg/dL Normal 5-27 [facility] Comment on above: Performed By: #### Ha SAMSON, 20061-1, PRINCIPAL TECHNICAL ARCHITECT, LIVR #### [facility] ([id number]) [address] [address] ESR Photometric method (Bld) [Velocity]on 04-12-2024 ESR, ERYTHROCYTE SEDIMENTATION RATE 14 mm/h Normal 0-30 [facility] Comment on above: Performed By: #### Ha SAMSON, 22487-9, PRINCIPAL TECHNICAL ARCHITECT, LIVR #### [facility] ([id number]) [address] [address] LIVER PANELon 04-12-2024 Bilirubin.direct [Mass/Vol] 0.1 mg/dL Normal 0.0-0.4 [facility] Comment on above: Performed By: #### Ha SAMSON, 66593-9, PRINCIPAL TECHNICAL ARCHITECT, LIVR #### [facility] ([id number]) [address] [address] CBC AND AUTO DIFFon 1217-20 24 ABSOLUTE BASOPHIL 0.1 X10E9/L Normal 0.0-0.2 [facility] Comment on above: Performed By: #### C MALI, 64520-3, PRINCIPAL TECHNICAL ARCHITECT, LIVR #### [facility] ([id number]) [address], [address] [place] [address] ABSOLUTE NEUTROPHIL 3.7 X10E9/L Normal 1.5-6.6 [facility] Comment on above: Performed By: #### Ha SAMSON, 09379-2, PRINCIPAL TECHNICAL ARCHITECT, LIVR #### [facility] ([id number]) [address], [address] [place] [address] Basophils/100 WBC (Bld) 2.2 % Normal [facility] Comment on above: Performed By: #### Ha SAMSON, 68709-7, PRINCIPAL TECHNICAL ARCHITECT, LIVR #### [facility] ([id number]) [address], [address] [place] [address] Eosinophils (Bld) [#/Vol] 0.2 10*3/uL Normal 0.0-0.4 [facility] Comment on above: Performed By: #### Ha SAMSON, 37888-7, PRINCIPAL TECHNICAL ARCHITECT, LIVR #### [facility] ([id number]) [address], [address] [place] [address] Eosinophils/100 WBC (Bld) 3.8 % Normal [facility] Comment on above: Performed By: #### Ha SAMSON, 11455-9, PRINCIPAL TECHNICAL ARCHITECT, LIVR #### [facility] ([id number]) [address], [address] [place] [address] Erythrocyte distribution width (RBC) [Ratio] 13.9 % Normal 11.5-15.0 [facility] Comment on above: Performed By: #### Ha SAMSON, 53347-7, PRINCIPAL TECHNICAL ARCHITECT, LIVR #### [facility] ([id number]) [address], [address] [place] [address] Hematocrit (Bld) [Volume fraction] 37.3 % Normal 35-47 [facility] Comment on above: Performed By: #### Ha SAMSON, 96979-9, PRINCIPAL TECHNICAL ARCHITECT, LIVR #### [facility] ([id number]) [address], [address] [place] [address] Hemoglobin (Bld) [Mass/Vol] 12.5 g/dL Normal 11.7-15.5 [facility] Comment on above: Performed By: #### Ha SAMSON, 42502-9, PRINCIPAL TECHNICAL ARCHITECT, LIVR #### [facility] ([id number]) [address], [address] [place] [address] Lymphocytes (Bld) [#/Vol] 1.0 10*3/uL Normal 1.0-3.5 [facility] Comment on above: Performed By: #### Ha SAMSON, 63019-2, PRINCIPAL TECHNICAL ARCHITECT, LIVR #### [facility] ([id number]) [address], [address] [place] [address] Lymphocytes/100 WBC (Bld) 17.6 % Normal [facility] Comment on above: Performed By: #### Ha SAMSON, 77431-8, PRINCIPAL TECHNICAL ARCHITECT, LIVR #### [facility] ([id number]) [address], [address] [place] [address] MCH (RBC) [Entitic mass] 32.0 pg Normal 27-34 [facility] Comment on above: Performed By: #### Ha SAMSON, 14712-6, PRINCIPAL TECHNICAL ARCHITECT, LIVR #### [facility] ([id number]) [address], [address] [place] [address] MCHC (RBC) [Mass/Vol] 33.4 g/dL Normal 32-36 [facility] Comment on above: Performed By: #### Ha SAMSON, 01235-8, PRINCIPAL TECHNICAL ARCHITECT, LIVR #### [facility] ([id number]) [address], [address] [place] [address] MCV (RBC) [Entitic vol] 96 fL Normal 80-100 [facility] Comment on above: Performed By: #### Ha SAMSON, 14361-6, PRINCIPAL TECHNICAL ARCHITECT, LIVR #### [facility] ([id number]) [address], [address] [place] [address] Monocytes (Bld) [#/Vol] 0.8 10*3/uL Normal 0-0.9 [facility] Comment on above: Performed By: #### Ha SAMSON, 39498-3, PRINCIPAL TECHNICAL ARCHITECT, LIVR #### [facility] ([id number]) [address], [address] [place] [address] Monocytes/100 WBC (Bld) 13.0 % Normal [facility] Comment on above: Performed By: #### Ha SAMSON, 86547-2, PRINCIPAL TECHNICAL ARCHITECT, LIVR #### [facility] ([id number]) [address], [address] [place] [address] Neutrophils/100 WBC (Bld) 63.4 % Normal [facility] Comment on above: Performed By: #### Ha SAMSON, 05423-2, PRINCIPAL TECHNICAL ARCHITECT, LIVR #### [facility] ([id number]) [address], [address] [place] [address] Platelet mean volume (Bld) [Entitic vol] 9.1 fL Normal 7-12 [facility] Comment on above: Performed By: #### Ha SAMSON, 09763-4, PRINCIPAL TECHNICAL ARCHITECT, LIVR #### [facility] ([id number]) [address], [address] [place] [address] Platelets (Bld) [#/Vol] 290 10*3/uL Normal 150-450 [facility] Comment on above: Performed By: #### Ha SAMSON, 30317-9, PRINCIPAL TECHNICAL ARCHITECT, LIVR #### [facility] ([id number]) [address], [address] [place] [address] RBC COUNT 3.90 X10E12/L Normal 3.80-5.20 [facility] Comment on above: Performed By: #### C MALI, 40980-4, PRINCIPAL TECHNICAL ARCHITECT, LIVR #### [facility] ([id number]) [address], [address] [place] [address] WBC (Bld) [#/Vol] 5.8 10*3/uL Normal 4.0-11.0 [facility] Comment on above: Performed By: #### C MALI, 52302-3, PRINCIPAL TECHNICAL ARCHITECT, LIVR #### [facility] ([id number]) [address], [address] [place] [address] COMPREHENSIVE METABOLIC PANE Henry 03-22-2024 Albumin [Mass/Vol] 3.6 g/dL Normal 3.2-5.3 [facility] Comment on above: Performed By: #### C MALI, 38052-0, PRINCIPAL TECHNICAL ARCHITECT, LIVR #### [facility] ([id number]) [address], [address] [place] [address] ALP [Catalytic activity/Vol] 99 U/L Normal 39-130 [facility] Comment on above: Performed By: #### C MALI, 02012-7, PRINCIPAL TECHNICAL ARCHITECT, LIVR #### [facility] ([id number]) [address], [address] [place] [address] ALT [Catalytic activity/Vol] 14 U/L Normal 0-31 [facility] Comment on above: Performed By: #### C MALI, 10852-5, PRINCIPAL TECHNICAL ARCHITECT, LIVR #### [facility] ([id number]) [address], [address] [place] [address] Anion gap [Moles/Vol] 10 mmol/L Normal 5-15 [facility] Comment on above: Performed By: #### C BCA, 92773-6, PRINCIPAL TECHNICAL ARCHITECT, LIVR #### [facility] ([id number]) [address], [address] [place] [address] AST [Catalytic activity/Vol] 31 U/L Normal 0-41 [facility] Comment on above: Performed By: #### C BCA, 22799-8, PRINCIPAL TECHNICAL ARCHITECT, LIVR #### [facility] ([id number]) [address], [address] [place] [address] Bilirubin [Mass/Vol] 0.5 mg/dL Normal 0.3-1.2 [facility] Comment on above: Performed By: #### C BCA, 13059-8, PRINCIPAL TECHNICAL ARCHITECT, LIVR #### [facility] ([id number]) [address], [address] [place] [address] Calcium [Mass/Vol] 9.4 mg/dL Normal 8.5-10.5 [facility] Comment on above: Performed By: #### C BCA, 71007-4, PRINCIPAL TECHNICAL ARCHITECT, LIVR #### [facility] ([id number]) [address], [address] [place] [address] Chloride [Moles/Vol] 106 mmol/L Normal 98-109 [facility] Comment on above: Performed By: #### C BCA, 97282-2, PRINCIPAL TECHNICAL ARCHITECT, LIVR #### [facility] ([id number]) [address], [address] [place] [address] CO2 [Moles/Vol] 24 mmol/L Normal 22-32 [facility] Comment on above: Performed By: #### C BCA, 62460-6, PRINCIPAL TECHNICAL ARCHITECT, LIVR #### [facility] ([id number]) [address], [address] [place] [address] Creatinine [Mass/Vol] 0.78 mg/dL Normal 0.40-1.00 [facility] Comment on above: Result Comment: METH OD TRACEABLE TO IDMS STANDARD Performed By: #### C BCA, 74388-7, PRINCIPAL TECHNICAL ARCHITECT, LIVR #### [facility] ([id number]) [address], [address] [place] [address] GFR/1.73 sq M.predicted among non-blacks MDRD (S/P/Bld) [Vol rate/Area] 75 mL/min/{1.73_m2} Normal >59 [facility] Comment on above: Result Comment: Reported eGFR is based on the CKD-EPI 2020 equation that does not use a race coefficient. Performed By: #### C MALI, 50181-0, PRINCIPAL TECHNICAL ARCHITECT, LIVR #### [facility] ([id number]) [address], [address] [place] [address] Glucose [Mass/Vol] 97 mg/dL Normal 65-99 [facility] Comment on above: Performed By: #### C MALI 25482-8, PRINCIPAL TECHNICAL ARCHITECT, LIVR #### [facility] ([id number]) [address] [address] [place] [address] Potassium [Moles/Vol] 3.4 mmol/L Low 3.5-5.0 [facility] Comment on above: Performed By: #### C MALI, 46995-6, PRINCIPAL TECHNICAL ARCHITECT, LIVR #### [facility] ([id number]) [address] [address] [place] [address] Protein [Mass/Vol] 6.2 g/dL Normal 6.0-8.0 [facility] Comment on above: Performed By: #### C MALI, 91325-1, PRINCIPAL TECHNICAL ARCHITECT, LIVR #### [facility] ([id number]) [address] [address] [place] [address] Sodium [Moles/Vol] 140 mmol/L Normal 134-146 [facility] Comment on above: Performed By: #### C BCA, 55329-3, PRINCIPAL TECHNICAL ARCHITECT, LIVR #### [facility] ([id number]) [address] [address] [place] [address] Urea nitrogen [Mass/Vol] 15 mg/dL Normal 5-27 [facility] Comment on above: Performed By: #### C BCA, 73673-4, PRINCIPAL TECHNICAL ARCHITECT, LIVR #### [facility] ([id number]) [address] [facility] [place] [address] C-Reactive Proteinon 024 CRP [Mass/Vol] mg/L Normal 0.0-0.5 [facility] Comment on above: Result Comment: PERF ORMED BY: [place] [address] PATHOLOGIST ELECTROMEDICAL EQUIPMENT TECHNICIAN AUSTIN PRETTY M.D. Performed By: #### C UU, CRP, ESR, ADDONUAPLUS #### [address] #### C4, C3 #### [facility] , Complement C3on 03-16-2024 Complement C3 139 mg/dL Normal 82-167 [facility] Comment on above: Result Comment: Perf ormed at: - [facility] [address] [id number] Hay Sorter: Guanaco Cui PhD, Phone: [phone] Performed By: #### C UU, CRP, ESR, ADDONUAPLUS #### [address] #### C4, C3 #### [facility] , Complement C4on 03-16-2024 Complement C4 38 mg/dL Normal 12-38 [facility] Comment on above: Result Comment: PERF ORMED BY: [place] [address] PATHOLOGIST ELECTROMEDICAL EQUIPMENT TECHNICIAN AUSTIN PRETTY M.D. Performed By: #### C UU, CRP, ESR, ADDONUAPLUS #### [address] #### C4, C3 #### [facility] , Dipstick and Microscopicon 1 05-17-2023 Appearance (U) Cloudy Critically abnormal Clear [facility] Comment on above: Order Comment: Name Collection Type:: Clean-Voided Midstream Performed By: #### C UU, CRP, ESR, ADDONUAPLUS #### [facility] [address] [place] [address] #### C4, C3 #### [facility] , Bacteria,Urine 3+ High None Seen [facility] Comment on above: Order Comment: Name Collection Type:: Clean-Voided Midstream Performed By: #### C UU, CRP, ESR, ADDONUAPLUS #### [address] #### C4, C3 #### [facility] , Bilirubin,Urine Negative Normal Negative [facility] Comment on above: Order Comment: Name Collection Type:: Clean-Voided Midstream Performed By: #### C UU, CRP, ESR, ADDONUAPLUS #### [address] #### C4, C3 #### [facility] , Calcium Oxalate Crystals,Urine 3+ Normal [facility] Comment on above: Order Comment: Name Collection Type:: Clean-Voided Midstream Performed By: #### C UU, CRP, ESR, ADDONUAPLUS #### [address] #### C4, C3 #### [facility] , Color (U) Yellow Normal Yellow [facility] Comment on above: Order Comment: Name Collection Type:: Clean-Voided Midstream Performed By: #### C UU, CRP, ESR, ADDONUAPLUS #### [address] #### C4, C3 #### [facility] , Glucose Ql (U) Normal Normal Normal [facility] Comment on above: Order Comment: Name Collection Type:: Clean-Voided Midstream Performed By: #### C UU, CRP, ESR, ADDONUAPLUS #### [address] #### C4, C3 #### [facility] , Hyaline Casts,Urine 9 [LPF] High 0-8 [facility] Comment on above: Order Comment: Name Collection Type:: Clean-Voided Midstream Performed By: #### C UU, CRP, ESR, ADDONUAPLUS #### [address] #### C4, C3 #### [facility] , Ketones Ql (U) Negative Normal Negative [facility] Comment on above: Order Comment: Name Collection Type:: Clean-Voided Midstream Performed By: #### C UU, CRP, ESR, ADDONUAPLUS #### [address] #### C4, C3 #### [facility] , Leukocyte esterase Test strip Ql (U) 4+ High Negative [facility] Comment on above: Order Comment: Name Collection Type:: Clean-Voided Midstream Performed By: #### C UU, CRP, ESR, ADDONUAPLUS #### [address] #### C4, C3 #### [facility] , Mucus,Urine 2+ Critically abnormal [facility] Comment on above: Order Comment: Name Collection Type:: Clean-Voided Midstream Result Comment: PERF ORMED BY: [place] [address] PATHOLOGIST ELECTROMEDICAL EQUIPMENT TECHNICIAN AUSTIN PRETTY M.D. Performed By: #### C UU, CRP, ESR, ADDONUAPLUS #### [address] #### C4, C3 #### [facility] , Nitrite,Urine Negative Normal Negative [facility] Comment on above: Order Comment: Name Collection Type:: Clean-Voided Midstream Performed By: #### C UU, CRP, ESR, ADDONUAPLUS #### [address] #### C4, C3 #### [facility] , Non-Squamous Epithelial Cell,U 1 [HPF] High None Seen [facility] Comment on above: Order Comment: Name Collection Type:: Clean-Voided Midstream Performed By: #### C UU, CRP, ESR, ADDONUAPLUS #### [address] #### C4, C3 #### [facility] , Occult Blood,Urine Negative Normal Negative [facility] Comment on above: Order Comment: Name Collection Type:: Clean-Voided Midstream Performed By: #### C UU, CRP, ESR, ADDONUAPLUS #### [address] #### C4, C3 #### [facility] , pH (U) 5.5 [pH] Normal 5.0-9.0 [facility] Comment on above: Order Comment: Name Collection Type:: Clean-Voided Midstream Performed By: #### C UU, CRP, ESR, ADDONUAPLUS #### [address] #### C4, C3 #### [facility] , Protein (U) [Mass/Vol] 20 mg/dL High Negative [facility] Comment on above: Order Comment: Name Collection Type:: Clean-Voided Midstream Performed By: #### C UU, CRP, ESR, ADDONUAPLUS #### [address] #### C4, C3 #### [facility] , RBC,Urine 5 [HPF] High 0-4 [facility] Comment on above: Order Comment: Name Collection Type:: Clean-Voided Midstream Performed By: #### C UU, CRP, ESR, ADDONUAPLUS #### [address] #### C4, C3 #### [facility] , Specificy Clements,Urine 1.023 Normal 1.001-1.030 [facility] Comment on above: Order Comment: Name Collection Type:: Clean-Voided Midstream Performed By: #### C UU, CRP, ESR, ADDONUAPLUS #### [address] #### C4, C3 #### [facility] , Squamous Epithelial Cell,Urine 1 [HPF] Normal 0-2 [facility] Comment on above: Order Comment: Name Collection Type:: Clean-Voided Midstream Performed By: #### C UU, CRP, ESR, ADDONUAPLUS #### [address] #### C4, C3 #### [facility] , Urobilinogen,Urine Normal Normal Normal [facility] Comment on above: Order Comment: Name Collection Type:: Clean-Voided Midstream Performed By: #### C UU, CRP, ESR, ADDONUAPLUS #### [address] #### C4, C3 #### [facility] , WBC CLUMP, Urine Many High None Seen [facility] Comment on above: Order Comment: Name Collection Type:: Clean-Voided Midstream Performed By: #### C UU, CRP, ESR, ADDONUAPLUS #### [place] [address] [place] #### C4, C3 #### [facility] , WBC,Urine Innumerable High 0-4 [facility] Comment on above: Order Comment: Name Collection Type:: Clean-Voided Midstream Performed By: #### C UU, CRP, ESR, ADDONUAPLUS #### [place] [address] [place] #### C4, C3 #### [facility] , Erythrocyte Sedimentation Ra sarah 03-16-2024 ESR (Bld) [Velocity] 15 mm/h Normal 0-29 [facility] Comment on above: Result Comment: PERF ORMED BY: [place] [address] PATHOLOGIST ELECTROMEDICAL EQUIPMENT TECHNICIAN AUSTIN PRETTY M.D. Performed By: #### C UU, CRP, ESR, ADDONUAPLUS #### [facility] [address] [place] [address] #### C4, C3 #### [facility] , Urine Cultureon 03-16-2024 Bacteria identified Cx Nom (U) Urine Culture Results >100,000 col/ml Mixed Bacterial Skin Contaminants 2 Days PERFORMED BY: [place] [address] PATHOLOGIST ELECTROMEDICAL EQUIPMENT TECHNICIAN AUSTIN PRETTY M.D. Normal [facility] Comment on above: Performed By: #### C UU, CRP, ESR, ADDONUAPLUS #### [facility] [address] [place] [address] #### C4, C3 #### [facility] , CBC AND AUTO DIFFon 03-01-20 24 ABSOLUTE BASOPHIL 0.1 X10E9/L Normal 0.0-0.2 [facility] Comment on above: Performed By: #### C MALI, 64198-4, PRINCIPAL TECHNICAL ARCHITECT, LIVR #### [facility] ([id number]) [address] [place] [address] ABSOLUTE NEUTROPHIL 3.3 X10E9/L Normal 1.5-6.6 [facility] Comment on above: Performed By: #### C BCA, 46484-9, PRINCIPAL TECHNICAL ARCHITECT, LIVR #### [facility] ([id number]) [address], [address] [place] [address] Basophils/100 WBC (Bld) 2.6 % Normal [facility] Comment on above: Performed By: #### C MALI, 40273-4, PRINCIPAL TECHNICAL ARCHITECT, LIVR #### [facility] ([id number]) [address] [address] [place] [address] Eosinophils (Bld) [#/Vol] 0.2 10*3/uL Normal 0.0-0.4 [facility] Comment on above: Performed By: #### C MALI, 22248-6, PRINCIPAL TECHNICAL ARCHITECT, LIVR #### [facility] ([id number]) [address], [facility] [address] [place] [address] Eosinophils/100 WBC (Bld) 4.1 % Normal [facility] Comment on above: Performed By: #### Ha SAMSON, 81043-5, PRINCIPAL TECHNICAL ARCHITECT, LIVR #### [facility] ([id number]) [address], [facility] [address] [place] [address] Erythrocyte distribution width (RBC) [Ratio] 13.1 % Normal 11.5-15.0 [facility] Comment on above: Performed By: #### Ha SAMSON 46136-5, PRINCIPAL TECHNICAL ARCHITECT, LIVR #### [facility] ([id number]) [address] [address] [place] [address] Hematocrit (Bld) [Volume fraction] 40.4 % Normal 35-47 [facility] Comment on above: Performed By: #### Ha SAMSON, 27442-8, PRINCIPAL TECHNICAL ARCHITECT, LIVR #### [facility] ([id number]) [address], [facility] [address] [place] [address] Hemoglobin (Bld) [Mass/Vol] 13.6 g/dL Normal 11.7-15.5 [facility] Comment on above: Performed By: #### Ha SAMSON, 34288-8, PRINCIPAL TECHNICAL ARCHITECT, LIVR #### [facility] ([id number]) [address], [facility] [address] [place] [address] Lymphocytes (Bld) [#/Vol] 1.1 10*3/uL Normal 1.0-3.5 [facility] Comment on above: Performed By: #### Ha SAMSON 04821-2, PRINCIPAL TECHNICAL ARCHITECT, LIVR #### [facility] ([id number]) [address], [address] [place] [address] Lymphocytes/100 WBC (Bld) 20.1 % Normal [facility] Comment on above: Performed By: #### Ha SAMSON 35070-6, PRINCIPAL TECHNICAL ARCHITECT, LIVR #### [facility] ([id number]) [address], [address] [place] [address] MCH (RBC) [Entitic mass] 32.1 pg Normal 27-34 [facility] Comment on above: Performed By: #### Ha SAMSON 86915-1, PRINCIPAL TECHNICAL ARCHITECT, LIVR #### [facility] ([id number]) [address], [address] [place] [address] MCHC (RBC) [Mass/Vol] 33.6 g/dL Normal 32-36 [facility] Comment on above: Performed By: #### Ha SAMSON 71067-1, PRINCIPAL TECHNICAL ARCHITECT, LIVR #### [facility] ([id number]) [address], [address] [place] [address] MCV (RBC) [Entitic vol] 96 fL Normal 80-100 [facility] Comment on above: Performed By: #### Ha SAMSON 03393-2, PRINCIPAL TECHNICAL ARCHITECT, LIVR #### [facility] ([id number]) [address], [address] [place] [address] Monocytes (Bld) [#/Vol] 0.7 10*3/uL Normal 0-0.9 [facility] Comment on above: Performed By: #### Ha SAMSON, [id number], PRINCIPAL TECHNICAL ARCHITECT, LIVR #### [facility] ([id number]) [address], [address] [place] [address] Monocytes/100 WBC (Bld) 12.4 % Normal [facility] Comment on above: Performed By: #### Ha SAMSON, [id number], PRINCIPAL TECHNICAL ARCHITECT, LIVR #### [facility] ([id number]) [address], [address] [place] [address] Neutrophils/100 WBC (Bld) 60.8 % Normal [facility] Comment on above: Performed By: #### Ha SAMSON, [id number], PRINCIPAL TECHNICAL ARCHITECT, LIVR #### [facility] [facility] ([id number]) [address], [address] [place] [address] Platelet mean volume (Bld) [Entitic vol] 9.8 fL Normal 7-12 [facility] Comment on above: Performed By: #### Ha SAMSON, 94816-5, PRINCIPAL TECHNICAL ARCHITECT, LIVR #### [facility] ([id number]) [address], [address] [place] [address] Platelets (Bld) [#/Vol] 279 10*3/uL Normal 150-450 [facility] Comment on above: Performed By: #### Ha SAMSON, 62079-9, PRINCIPAL TECHNICAL ARCHITECT, LIVR #### [facility] ([id number]) [address], [address] [place] [address] RBC COUNT 4.22 X10E12/L Normal 3.80-5.20 [facility] Comment on above: Performed By: #### Ha SAMSON, 84587-9, PRINCIPAL TECHNICAL ARCHITECT, LIVR #### [facility] ([id number]) [address], [address] [place] [address] WBC (Bld) [#/Vol] 5.4 10*3/uL Normal 4.0-11.0 [facility] Comment on above: Performed By: #### Ha SAMSON, 69001-7, PRINCIPAL TECHNICAL ARCHITECT, LIVR #### [facility] ([id number]) [address], [address] [place] [address] COMPREHENSIVE METABOLIC PANE Henry 03-01-2024 Albumin [Mass/Vol] 3.9 g/dL Normal 3.2-5.3 [facility] Comment on above: Performed By: #### C BCA, 36173-5, PRINCIPAL TECHNICAL ARCHITECT, LIVR #### [facility] ([id number]) [address], [address] [place] [address] ALP [Catalytic activity/Vol] 84 U/L Normal 39-130 [facility] Comment on above: Performed By: #### C BCA, 02709-0, PRINCIPAL TECHNICAL ARCHITECT, LIVR #### [facility] ([id number]) [address], [address] [place] [address] ALT [Catalytic activity/Vol] 20 U/L Normal 0-31 [facility] Comment on above: Performed By: #### C MALI, 79779-0, PRINCIPAL TECHNICAL ARCHITECT, LIVR #### [facility] ([id number]) [address], [address] [place] [address] Anion gap [Moles/Vol] 11 mmol/L Normal 5-15 [facility] Comment on above: Performed By: #### C MALI, 38752-5, PRINCIPAL TECHNICAL ARCHITECT, LIVR #### [facility] ([id number]) [address], [address] [place] [address] AST [Catalytic activity/Vol] 33 U/L Normal 0-41 [facility] Comment on above: Performed By: #### C BCA, 32477-6, PRINCIPAL TECHNICAL ARCHITECT, LIVR #### [facility] ([id number]) [address], [address] [place] [address] Bilirubin [Mass/Vol] 0.5 mg/dL Normal 0.3-1.2 [facility] Comment on above: Performed By: #### C BCA, 73340-2, PRINCIPAL TECHNICAL ARCHITECT, LIVR #### [facility] ([id number]) [address], [address] [place] [address] Calcium [Mass/Vol] 9.8 mg/dL Normal 8.5-10.5 [facility] Comment on above: Performed By: #### C MALI, 01342-7, PRINCIPAL TECHNICAL ARCHITECT, LIVR #### [facility] ([id number]) [address], [address] [place] [address] Chloride [Moles/Vol] 105 mmol/L Normal 98-109 [facility] Comment on above: Performed By: #### C MALI, 88802-7, PRINCIPAL TECHNICAL ARCHITECT, LIVR #### [facility] ([id number]) [address], [address] [place] [address] CO2 [Moles/Vol] 27 mmol/L Normal 22-32 [facility] Comment on above: Performed By: #### C MALI, 61899-4, PRINCIPAL TECHNICAL ARCHITECT, LIVR #### [facility] ([id number]) [address], [address] [place] [address] Creatinine [Mass/Vol] 0.88 mg/dL Normal 0.40-1.00 [facility] Comment on above: Result Comment: METH OD TRACEABLE TO IDMS STANDARD Performed By: #### C MALI, 62232-6, PRINCIPAL TECHNICAL ARCHITECT, LIVR #### [facility] ([id number]) [address], [address] [place] [address] GFR/1.73 sq M.predicted among non-blacks MDRD (S/P/Bld) [Vol rate/Area] 65 mL/min/{1.73_m2} Normal >59 [facility] Comment on above: Result Comment: Reported eGFR is based on the CKD-EPI 2020 equation that does not use a race coefficient. Performed By: #### C BCA, 93249-6, PRINCIPAL TECHNICAL ARCHITECT, LIVR #### [facility] ([id number]) [address], [address] [place] [address] Glucose [Mass/Vol] 120 mg/dL High 65-99 [facility] Comment on above: Performed By: #### C MALI, 76031-3, PRINCIPAL TECHNICAL ARCHITECT, LIVR #### [facility] ([id number]) [address], [address] [place] [address] Potassium [Moles/Vol] 3.5 mmol/L Normal 3.5-5.0 [facility] Comment on above: Performed By: #### C MALI, 80401-6, PRINCIPAL TECHNICAL ARCHITECT, LIVR #### [facility] ([id number]) [address], [address] [place] [address] Protein [Mass/Vol] 6.6 g/dL Normal 6.0-8.0 [facility] Comment on above: Performed By: #### C MALI, 27811-3, PRINCIPAL TECHNICAL ARCHITECT, LIVR #### [facility] ([id number]) [address], [address] [place] [address] Sodium [Moles/Vol] 143 mmol/L Normal 134-146 [facility] Comment on above: Performed By: #### C MALI, 82437-8, PRINCIPAL TECHNICAL ARCHITECT, LIVR #### [facility] ([id number]) [address], [facility] [address] [place] [address] Urea nitrogen [Mass/Vol] 16 mg/dL Normal 5-27 [facility] Comment on above: Performed By: #### C MALI, 45917-6, PRINCIPAL TECHNICAL ARCHITECT, LIVR #### [facility] ([id number]) [address], [address] [place] [address] CBC AND AUTO DIFFon 02-09-20 24 ABSOLUTE BASOPHIL 0.1 X10E9/L Normal 0.0-0.2 [facility] Comment on above: Performed By: #### C BCA, 27302-5, PRINCIPAL TECHNICAL ARCHITECT, LIVR #### [facility] ([id number]) [address] [address] [place] [address] ABSOLUTE NEUTROPHIL 4.7 X10E9/L Normal 1.5-6.6 [facility] Comment on above: Performed By: #### C MALI, 25842-9, PRINCIPAL TECHNICAL ARCHITECT, LIVR #### [facility] ([id number]) [address], [address] [place] [address] Basophils/100 WBC (Bld) 1.3 % Normal [facility] Comment on above: Performed By: #### Ha SAMSON, 49719-3, PRINCIPAL TECHNICAL ARCHITECT, LIVR #### [facility] ([id number]) [address], [address] [place] [address] Eosinophils (Bld) [#/Vol] 0.4 10*3/uL Normal 0.0-0.4 [facility] Comment on above: Performed By: #### Ha SAMSON, 40399-8, PRINCIPAL TECHNICAL ARCHITECT, LIVR #### [facility] ([id number]) [address], [address] [place] [address] Eosinophils/100 WBC (Bld) 5.4 % Normal [facility] Comment on above: Performed By: #### Ha SAMSON, 15722-6, PRINCIPAL TECHNICAL ARCHITECT, LIVR #### [facility] ([id number]) [address], [address] [place] [address] Erythrocyte distribution width (RBC) [Ratio] 13.3 % Normal 11.5-15.0 [facility] Comment on above: Performed By: #### Ha SAMSON, 26236-2, PRINCIPAL TECHNICAL ARCHITECT, LIVR #### [facility] ([id number]) [address], [address] [place] [address] Hematocrit (Bld) [Volume fraction] 39.1 % Normal 35-47 [facility] Comment on above: Performed By: #### Ha SAMSON, 51112-8, PRINCIPAL TECHNICAL ARCHITECT, LIVR #### [facility] ([id number]) [address], [address] [place] [address] Hemoglobin (Bld) [Mass/Vol] 13.1 g/dL Normal 11.7-15.5 [facility] Comment on above: Performed By: #### Ha SAMSON, 34311-2, PRINCIPAL TECHNICAL ARCHITECT, LIVR #### [facility] ([id number]) [address], [facility] [address] [place] [address] Lymphocytes (Bld) [#/Vol] 1.2 10*3/uL Normal 1.0-3.5 [facility] Comment on above: Performed By: #### Ha SAMSON, 19483-7, PRINCIPAL TECHNICAL ARCHITECT, LIVR #### [facility] ([id number]) [address], [facility] [address] [place] [address] Lymphocytes/100 WBC (Bld) 16.5 % Normal [facility] Comment on above: Performed By: #### Ha SAMSON, 11999-8, PRINCIPAL TECHNICAL ARCHITECT, LIVR #### [facility] ([id number]) [address], [facility] [address] [place] [address] MCH (RBC) [Entitic mass] 32.1 pg Normal 27-34 [facility] Comment on above: Performed By: #### Ha SAMSON 81140-5, PRINCIPAL TECHNICAL ARCHITECT, LIVR #### [facility] ([id number]) [address], [address] [place] [address] MCHC (RBC) [Mass/Vol] 33.4 g/dL Normal 32-36 [facility] Comment on above: Performed By: #### Ha SAMSON 43169-9, PRINCIPAL TECHNICAL ARCHITECT, LIVR #### [facility] ([id number]) [address], [facility] [address] [place] [address] MCV (RBC) [Entitic vol] 96 fL Normal 80-100 [facility] Comment on above: Performed By: #### Ha SAMSON, 06626-5, PRINCIPAL TECHNICAL ARCHITECT, LIVR #### [facility] ([id number]) [address], [address] [place] [address] Monocytes (Bld) [#/Vol] 0.7 10*3/uL Normal 0-0.9 [facility] Comment on above: Performed By: #### C MALI, 95595-6, PRINCIPAL TECHNICAL ARCHITECT, LIVR #### [facility] ([id number]) [address], [address] [place] [address] Monocytes/100 WBC (Bld) 10.3 % Normal [facility] Comment on above: Performed By: #### Ha SAMSON, 66654-1, PRINCIPAL TECHNICAL ARCHITECT, LIVR #### [facility] ([id number]) [address], [address] [place] [address] Neutrophils/100 WBC (Bld) 66.5 % Normal [facility] Comment on above: Performed By: #### Ha SAMSON, 80738-9, PRINCIPAL TECHNICAL ARCHITECT, LIVR #### [facility] ([id number]) [address], [address] [place] [address] Platelet mean volume (Bld) [Entitic vol] 9.3 fL Normal 7-12 [facility] Comment on above: Performed By: #### Ha SAMSON 01846-1, PRINCIPAL TECHNICAL ARCHITECT, LIVR #### [facility] ([id number]) [address], [address] [place] [address] Platelets (Bld) [#/Vol] 253 10*3/uL Normal 150-450 [facility] Comment on above: Performed By: #### Ha SAMSON, 98862-4, PRINCIPAL TECHNICAL ARCHITECT, LIVR #### [facility] ([id number]) [address], [address] [place] [address] RBC COUNT 4.07 X10E12/L Normal 3.80-5.20 [facility] Comment on above: Performed By: #### Ha SAMSON, 48919-2, PRINCIPAL TECHNICAL ARCHITECT, LIVR #### [facility] ([id number]) [address], [address] [place] [address] WBC (Bld) [#/Vol] 7.1 10*3/uL Normal 4.0-11.0 [facility] Comment on above: Performed By: #### C BCA, 24697-4, PRINCIPAL TECHNICAL ARCHITECT, LIVR #### [facility] ([id number]) [address], [address] [place] [address] COMPREHENSIVE METABOLIC PANE Henry 02-09-2024 Albumin [Mass/Vol] 3.7 g/dL Normal 3.2-5.3 [facility] Comment on above: Performed By: #### C MALI, 22973-8, PRINCIPAL TECHNICAL ARCHITECT, LIVR #### [facility] ([id number]) [address], [address] [place] [address] ALP [Catalytic activity/Vol] 77 U/L Normal 39-130 [facility] Comment on above: Performed By: #### C MALI, 37487-5, PRINCIPAL TECHNICAL ARCHITECT, LIVR #### [facility] ([id number]) [address], [address] [place] [address] ALT [Catalytic activity/Vol] 17 U/L Normal 0-31 [facility] Comment on above: Performed By: #### C MALI, 72187-6, PRINCIPAL TECHNICAL ARCHITECT, LIVR #### [facility] ([id number]) [address], [address] [place] [address] Anion gap [Moles/Vol] 12 mmol/L Normal 5-15 [facility] Comment on above: Performed By: #### C MALI, 05126-9, PRINCIPAL TECHNICAL ARCHITECT, LIVR #### [facility] ([id number]) [address], [address] [place] [address] AST [Catalytic activity/Vol] 32 U/L Normal 0-41 [facility] Comment on above: Performed By: #### C BCA, 51266-9, PRINCIPAL TECHNICAL ARCHITECT, LIVR #### [facility] ([id number]) [address], [address] [place] [address] Bilirubin [Mass/Vol] 0.4 mg/dL Normal 0.3-1.2 [facility] Comment on above: Performed By: #### C BCA, 53076-6, PRINCIPAL TECHNICAL ARCHITECT, LIVR #### [facility] ([id number]) [address], [address] [place] [address] Calcium [Mass/Vol] 9.4 mg/dL Normal 8.5-10.5 [facility] Comment on above: Performed By: #### C BCA, 10707-2, PRINCIPAL TECHNICAL ARCHITECT, LIVR #### [facility] ([id number]) [address], [facility] [address] [place] [address] Chloride [Moles/Vol] 107 mmol/L Normal 98-109 [facility] Comment on above: Performed By: #### C BCA, 05459-8, PRINCIPAL TECHNICAL ARCHITECT, LIVR #### [facility] ([id number]) [address], [address] [place] [address] CO2 [Moles/Vol] 23 mmol/L Normal 22-32 [facility] Comment on above: Performed By: #### C BCA, 53423-2, PRINCIPAL TECHNICAL ARCHITECT, LIVR #### [facility] ([id number]) [address], [address] [place] [address] Creatinine [Mass/Vol] 0.83 mg/dL Normal 0.40-1.00 [facility] Comment on above: Result Comment: METH OD TRACEABLE TO IDMS STANDARD Performed By: #### C BCA, 17694-9, PRINCIPAL TECHNICAL ARCHITECT, LIVR #### [facility] ([id number]) [address], [address] [place] [address] GFR/1.73 sq M.predicted among non-blacks MDRD (S/P/Bld) [Vol rate/Area] 70 mL/min/{1.73_m2} Normal >59 [facility] Comment on above: Result Comment: Reported eGFR is based on the CKD-EPI 2020 equation that does not use a race coefficient. Performed By: #### C BCA, 87994-9, PRINCIPAL TECHNICAL ARCHITECT, LIVR #### [facility] ([id number]) [address], [address] [place] [address] Glucose [Mass/Vol] 101 mg/dL High 65-99 [facility] Comment on above: Performed By: #### C BCA, 32935-8, PRINCIPAL TECHNICAL ARCHITECT, LIVR #### [facility] ([id number]) [address], [address] [place] [address] Potassium [Moles/Vol] 3.9 mmol/L Normal 3.5-5.0 [facility] Comment on above: Performed By: #### C BCA, 81419-9, PRINCIPAL TECHNICAL ARCHITECT, LIVR #### [facility] ([id number]) [address], [address] [place] [address] Protein [Mass/Vol] 6.2 g/dL Normal 6.0-8.0 [facility] Comment on above: Performed By: #### C BCA, 57307-7, PRINCIPAL TECHNICAL ARCHITECT, LIVR #### [facility] ([id number]) [address], [address] [place] [address] Sodium [Moles/Vol] 142 mmol/L Normal 134-146 [facility] Comment on above: Performed By: #### C BCA, 29360-0, PRINCIPAL TECHNICAL ARCHITECT, LIVR #### [facility] ([id number]) [address], [address] [place] [address] Urea nitrogen [Mass/Vol] 15 mg/dL Normal 5-27 [facility] Comment on above: Performed By: #### C BCA, 43949-2, PRINCIPAL TECHNICAL ARCHITECT, LIVR #### [facility] ([id number]) [address], [address] [place] [address] ESR Photometric method (Bld) [Velocity]on 02-09-2024 ESR, ERYTHROCYTE SEDIMENTATION RATE 11 mm/h Normal 0-30 [facility] Comment on above: Performed By: #### Ha SAMSON, 86028-1, PRINCIPAL TECHNICAL ARCHITECT, LIVR #### [facility] ([id number]) [address], [address] [place] [address] LIVER PANELon 02-09-2024 Bilirubin.direct [Mass/Vol] 0.1 mg/dL Normal 0.0-0.4 [facility] Comment on above: Performed By: #### Ha SAMSON 57219-5, PRINCIPAL TECHNICAL ARCHITECT, LIVR #### [facility] ([id number]) [address], [facility] [address] [place] [address] CBC AND AUTO DIFFon 01-19-20 24 ABSOLUTE BASOPHIL 0.1 X10E9/L Normal 0.0-0.2 [facility] Comment on above: Performed By: #### Ha SAMSON 23146-6, PRINCIPAL TECHNICAL ARCHITECT, LIVR #### [facility] ([id number]) [address] [address] [place] [address] ABSOLUTE NEUTROPHIL 3.7 X10E9/L Normal 1.5-6.6 [facility] Comment on above: Performed By: #### Ha SAMSON 55294-3, PRINCIPAL TECHNICAL ARCHITECT, LIVR #### [facility] ([id number]) [address] [address] [place] [address] Basophils/100 WBC (Bld) 2.2 % Normal [facility] Comment on above: Performed By: #### Ha SAMSON 84268-8, PRINCIPAL TECHNICAL ARCHITECT, LIVR #### [facility] ([id number]) [address] [address] [place] [address] Eosinophils (Bld) [#/Vol] 0.6 10*3/uL High 0.0-0.4 [facility] Comment on above: Performed By: #### Ha SAMSON, 50412-7, PRINCIPAL TECHNICAL ARCHITECT, LIVR #### [facility] ([id number]) [address], [address] [place] [address] Eosinophils/100 WBC (Bld) 10.1 % Normal [facility] Comment on above: Performed By: #### C MALI, 58056-5, PRINCIPAL TECHNICAL ARCHITECT, LIVR #### [facility] ([id number]) [address] [address] [place] [address] Erythrocyte distribution width (RBC) [Ratio] 13.5 % Normal 11.5-15.0 [facility] Comment on above: Performed By: #### C MALI, 03308-6, PRINCIPAL TECHNICAL ARCHITECT, LIVR #### [facility] ([id number]) [address] [address] [place] [address] Hematocrit (Bld) [Volume fraction] 38.7 % Normal 35-47 [facility] Comment on above: Performed By: #### Ha SAMSON, 81300-0, PRINCIPAL TECHNICAL ARCHITECT, LIVR #### [facility] ([id number]) [address], [facility] [address] [place] [address] Hemoglobin (Bld) [Mass/Vol] 13.3 g/dL Normal 11.7-15.5 [facility] Comment on above: Performed By: #### Ha SAMSON, 44727-9, PRINCIPAL TECHNICAL ARCHITECT, LIVR #### [facility] ([id number]) [address] [address] [place] [address] Lymphocytes (Bld) [#/Vol] 1.1 10*3/uL Normal 1.0-3.5 [facility] Comment on above: Performed By: #### C MALI, 31975-8, PRINCIPAL TECHNICAL ARCHITECT, LIVR #### [facility] ([id number]) [address] [address] [place] [address] Lymphocytes/100 WBC (Bld) 17.8 % Normal [facility] Comment on above: Performed By: #### Ha SAMSON, 13467-4, PRINCIPAL TECHNICAL ARCHITECT, LIVR #### [facility] ([id number]) [address], [address] [place] [address] MCH (RBC) [Entitic mass] 32.8 pg Normal 27-34 [facility] Comment on above: Performed By: #### Ha SAMSON, 08941-9, PRINCIPAL TECHNICAL ARCHITECT, LIVR #### [facility] ([id number]) [address], [facility] [address] [place] [address] MCHC (RBC) [Mass/Vol] 34.3 g/dL Normal 32-36 [facility] Comment on above: Performed By: #### Ha SAMSON, 75003-0, PRINCIPAL TECHNICAL ARCHITECT, LIVR #### [facility] ([id number]) [address], [facility] [address] [place] [address] MCV (RBC) [Entitic vol] 96 fL Normal 80-100 [facility] Comment on above: Performed By: #### Ha SAMSON 24799-8, PRINCIPAL TECHNICAL ARCHITECT, LIVR #### [facility] ([id number]) [address], [facility] [address] [place] [address] Monocytes (Bld) [#/Vol] 0.7 10*3/uL Normal 0-0.9 [facility] Comment on above: Performed By: #### Ha SAMSON, 13462-0, PRINCIPAL TECHNICAL ARCHITECT, LIVR #### [facility] ([id number]) [address], [facility] [address] [place] [address] Monocytes/100 WBC (Bld) 11.0 % Normal [facility] Comment on above: Performed By: #### Ha SAMSON, 00229-7, PRINCIPAL TECHNICAL ARCHITECT, LIVR #### [facility] ([id number]) [address], [facility] [address] [place] [address] Neutrophils/100 WBC (Bld) 58.9 % Normal [facility] Comment on above: Performed By: #### Ha SAMSON, 74923-5, PRINCIPAL TECHNICAL ARCHITECT, LIVR #### [facility] ([id number]) [address], [address] [place] [address] Platelet mean volume (Bld) [Entitic vol] 9.7 fL Normal 7-12 [facility] Comment on above: Performed By: #### C MALI, 15117-8, PRINCIPAL TECHNICAL ARCHITECT, LIVR #### [facility] ([id number]) [address], [address] [place] [address] Platelets (Bld) [#/Vol] 264 10*3/uL Normal 150-450 [facility] Comment on above: Performed By: #### C MALI, 93184-4, PRINCIPAL TECHNICAL ARCHITECT, LIVR #### [facility] ([id number]) [address], [facility] [address] [place] [address] RBC COUNT 4.05 X10E12/L Normal 3.80-5.20 [facility] Comment on above: Performed By: #### Ha SAMSON, 72520-4, PRINCIPAL TECHNICAL ARCHITECT, LIVR #### [facility] ([id number]) [address], [address] [place] [address] WBC (Bld) [#/Vol] 6.3 10*3/uL Normal 4.0-11.0 [facility] Comment on above: Performed By: #### Ha SAMSON, 52635-2, PRINCIPAL TECHNICAL ARCHITECT, LIVR #### [facility] ([id number]) [address], [address] [place] [address] COMPREHENSIVE METABOLIC PANE [place] 01-19-2024 Albumin [Mass/Vol] 3.6 g/dL Normal 3.2-5.3 [facility] Comment on above: Performed By: #### C MALI, 25099-8, PRINCIPAL TECHNICAL ARCHITECT, LIVR #### [facility] ([id number]) [address], [address] [place] [address] ALP [Catalytic activity/Vol] 89 U/L Normal 39-130 [facility] Comment on above: Performed By: #### Ha SAMSON, 39453-0, PRINCIPAL TECHNICAL ARCHITECT, LIVR #### [facility] ([id number]) [address], [address] [place] [address] ALT [Catalytic activity/Vol] 19 U/L Normal 0-31 [facility] Comment on above: Performed By: #### C BCA, 91569-5, PRINCIPAL TECHNICAL ARCHITECT, LIVR #### [facility] ([id number]) [address], [address] [place] [address] Anion gap [Moles/Vol] 9 mmol/L Normal 5-15 [facility] Comment on above: Performed By: #### C BCA, 30252-9, PRINCIPAL TECHNICAL ARCHITECT, LIVR #### [facility] ([id number]) [address], [address] [place] [address] AST [Catalytic activity/Vol] 31 U/L Normal 0-41 [facility] Comment on above: Performed By: #### C BCA, 03130-1, PRINCIPAL TECHNICAL ARCHITECT, LIVR #### [facility] ([id number]) [address], [address] [place] [address] Bilirubin [Mass/Vol] 0.4 mg/dL Normal 0.3-1.2 [facility] Comment on above: Performed By: #### C BCA, 62910-5, PRINCIPAL TECHNICAL ARCHITECT, LIVR #### [facility] ([id number]) [address], [address] [place] [address] Calcium [Mass/Vol] 9.3 mg/dL Normal 8.5-10.5 [facility] [facility] Comment on above: Performed By: #### C BCA, 07281-0, PRINCIPAL TECHNICAL ARCHITECT, LIVR #### [facility] ([id number]) [address], [address] [place] [address] Chloride [Moles/Vol] 106 mmol/L Normal 98-109 [facility] Comment on above: Performed By: #### C BCA, 98799-9, PRINCIPAL TECHNICAL ARCHITECT, LIVR #### [facility] ([id number]) [address], [address] [place] [address] CO2 [Moles/Vol] 25 mmol/L Normal 22-32 [facility] Comment on above: Performed By: #### C MALI, 02204-6, PRINCIPAL TECHNICAL ARCHITECT, LIVR #### [facility] ([id number]) [address], [address] [place] [address] Creatinine [Mass/Vol] 0.80 mg/dL Normal 0.40-1.00 [facility] Comment on above: Result Comment: METH OD TRACEABLE TO IDMS STANDARD Performed By: #### C MALI, 70606-5, PRINCIPAL TECHNICAL ARCHITECT, LIVR #### [facility] ([id number]) [address], [facility] [address] [place] [address] GFR/1.73 sq M.predicted among non-blacks MDRD (S/P/Bld) [Vol rate/Area] 73 mL/min/{1.73_m2} Normal >59 [facility] Comment on above: Result Comment: Reported eGFR is based on the CKD-EPI 2020 equation that does not use a race coefficient. Performed By: #### C MALI, 27537-3, PRINCIPAL TECHNICAL ARCHITECT, LIVR #### [facility] ([id number]) [address], [address] [place] [address] Glucose [Mass/Vol] 112 mg/dL High 65-99 [facility] Comment on above: Performed By: #### C MALI, 39796-5, PRINCIPAL TECHNICAL ARCHITECT, LIVR #### [facility] ([id number]) [address] [address] [place] [address] Potassium [Moles/Vol] 3.6 mmol/L Normal 3.5-5.0 [facility] Comment on above: Performed By: #### C MALI, 40498-5, PRINCIPAL TECHNICAL ARCHITECT, LIVR #### [facility] ([id number]) [address], [address] [place] [address] Protein [Mass/Vol] 6.2 g/dL Normal 6.0-8.0 [facility] Comment on above: Performed By: #### C MALI, 94520-9, PRINCIPAL TECHNICAL ARCHITECT, LIVR #### [facility] ([id number]) [address], [address] [place] [address] Sodium [Moles/Vol] 140 mmol/L Normal 134-146 [facility] Comment on above: Performed By: #### Ha SAMSON, 71184-9, PRINCIPAL TECHNICAL ARCHITECT, LIVR #### [facility] ([id number]) [address], [address] [place] [address] Urea nitrogen [Mass/Vol] 14 mg/dL Normal 5-27 [facility] Comment on above: Performed By: #### Ha SAMSON, 33607-2, PRINCIPAL TECHNICAL ARCHITECT, LIVR #### [facility] ([id number]) [address], [address] [place] [address] CBC AND AUTO DIFFon 12-29-19 24 ABSOLUTE BASOPHIL 0.2 X10E9/L Normal 0.0-0.2 [facility] Comment on above: Performed By: #### Ha SAMSON, 41363-4, PRINCIPAL TECHNICAL ARCHITECT, LIVR #### [facility] ([id number]) [address], [address] [place] [address] ABSOLUTE NEUTROPHIL 4.8 X10E9/L Normal 1.5-6.6 [facility] Comment on above: Performed By: #### Ha SAMSON, 01861-2, PRINCIPAL TECHNICAL ARCHITECT, LIVR #### [facility] ([id number]) [address], [address] [place] [address] Basophils/100 WBC (Bld) 2.2 % Normal [facility] Comment on above: Performed By: #### Ha SAMSON, 87528-0, PRINCIPAL TECHNICAL ARCHITECT, LIVR #### [facility] ([id number]) [address], [address] [place] [address] Eosinophils (Bld) [#/Vol] 0.4 10*3/uL Normal 0.0-0.4 [facility] Comment on above: Performed By: #### C MALI, 56519-4, PRINCIPAL TECHNICAL ARCHITECT, LIVR #### [facility] ([id number]) [address], [address] [place] [address] Eosinophils/100 WBC (Bld) 5.2 % Normal [facility] Comment on above: Performed By: #### Ha SAMSON, 25215-1, PRINCIPAL TECHNICAL ARCHITECT, LIVR #### [facility] ([id number]) [address], [facility] [address] [place] [address] Erythrocyte distribution width (RBC) [Ratio] 14.2 % Normal 11.5-15.0 [facility] Comment on above: Performed By: #### Ha SAMSON, 28729-7, PRINCIPAL TECHNICAL ARCHITECT, LIVR #### [facility] ([id number]) [address], [facility] [address] [place] [address] Hematocrit (Bld) [Volume fraction] 40.3 % Normal 35-47 [facility] Comment on above: Performed By: #### Ha SAMSON, 00976-8, PRINCIPAL TECHNICAL ARCHITECT, LIVR #### [facility] ([id number]) [address], [address] [place] [address] Hemoglobin (Bld) [Mass/Vol] 13.7 g/dL Normal 11.7-15.5 [facility] Comment on above: Performed By: #### Ha SAMSON, 28857-2, PRINCIPAL TECHNICAL ARCHITECT, LIVR #### [facility] ([id number]) [address], [facility] [address] [place] [address] Lymphocytes (Bld) [#/Vol] 1.2 10*3/uL Normal 1.0-3.5 [facility] Comment on above: Performed By: #### Ha SAMSON, 87428-0, PRINCIPAL TECHNICAL ARCHITECT, LIVR #### [facility] ([id number]) [address], [facility] [address] [place] [address] Lymphocytes/100 WBC (Bld) 16.3 % Normal [facility] Comment on above: Performed By: #### Ha SAMSON 47767-1, PRINCIPAL TECHNICAL ARCHITECT, LIVR #### [facility] ([id number]) [address], [address] [place] [address] MCH (RBC) [Entitic mass] 32.4 pg Normal 27-34 [facility] Comment on above: Performed By: #### Ha SAMSON 59007-5, PRINCIPAL TECHNICAL ARCHITECT, LIVR #### [facility] ([id number]) [address], [facility] [address] [place] [address] MCHC (RBC) [Mass/Vol] 34.0 g/dL Normal 32-36 [facility] Comment on above: Performed By: #### Ha SAMSON 15455-6, PRINCIPAL TECHNICAL ARCHITECT, LIVR #### [facility] ([id number]) [address], [address] [place] [address] MCV (RBC) [Entitic vol] 95 fL Normal 80-100 [facility] Comment on above: Performed By: #### Ha SAMSON, 95722-1, PRINCIPAL TECHNICAL ARCHITECT, LIVR #### [facility] ([id number]) [address], [address] [place] [address] Monocytes (Bld) [#/Vol] 0.9 10*3/uL Normal 0-0.9 [facility] Comment on above: Performed By: #### Ha SAMSON, 06280-1, PRINCIPAL TECHNICAL ARCHITECT, LIVR #### [facility] ([id number]) [address], [address] [place] [address] Monocytes/100 WBC (Bld) 12.3 % Normal [facility] Comment on above: Performed By: #### Ha SAMSON, 02567-4, PRINCIPAL TECHNICAL ARCHITECT, LIVR #### [facility] ([id number]) [address], [address] [place] [address] Neutrophils/100 WBC (Bld) 64.0 % Normal [facility] Comment on above: Performed By: #### Ha SAMSON, 02405-7, PRINCIPAL TECHNICAL ARCHITECT, LIVR #### [facility] ([id number]) [address], [facility] [address] [place] [address] Platelet mean volume (Bld) [Entitic vol] 10.3 fL Normal 7-12 [facility] Comment on above: Performed By: #### Ha SAMSON, 47518-2, PRINCIPAL TECHNICAL ARCHITECT, LIVR #### [facility] ([id number]) [address], [facility] [address] [place] [address] Platelets (Bld) [#/Vol] 261 10*3/uL Normal 150-450 [facility] Comment on above: Performed By: #### Ha SAMSON, 65588-0, PRINCIPAL TECHNICAL ARCHITECT, LIVR #### [facility] ([id number]) [address], [facility] [address] [place] [address] RBC COUNT 4.23 X10E12/L Normal 3.80-5.20 [facility] Comment on above: Performed By: #### Ha SAMSON, 19716-0, PRINCIPAL TECHNICAL ARCHITECT, LIVR #### [facility] ([id number]) [address] [address] [place] [address] WBC (Bld) [#/Vol] 7.5 10*3/uL Normal 4.0-11.0 [facility] Comment on above: Performed By: #### Ha SAMSON, 46954-1, PRINCIPAL TECHNICAL ARCHITECT, LIVR #### [facility] ([id number]) [address], [address] [place] [address] COMPREHENSIVE METABOLIC PANE Henry 12-29-2023 Albumin [Mass/Vol] 3.8 g/dL Normal 3.2-5.3 [facility] Comment on above: Performed By: #### Ha SAMSON, 93928-9, PRINCIPAL TECHNICAL ARCHITECT, LIVR #### [facility] ([id number]) [address], [address] [place] [address] ALP [Catalytic activity/Vol] 80 U/L Normal 39-130 [facility] Comment on above: Performed By: #### C MALI, 62350-4, PRINCIPAL TECHNICAL ARCHITECT, LIVR #### [facility] ([id number]) [address], [address] [place] [address] ALT [Catalytic activity/Vol] 14 U/L Normal 0-31 [facility] Comment on above: Performed By: #### C MALI, 93749-1, PRINCIPAL TECHNICAL ARCHITECT, LIVR #### [facility] ([id number]) [address], [address] [place] [address] Anion gap [Moles/Vol] 10 mmol/L Normal 5-15 [facility] Comment on above: Performed By: #### C MALI, 45717-8, PRINCIPAL TECHNICAL ARCHITECT, LIVR #### [facility] ([id number]) [address], [address] [place] [address] AST [Catalytic activity/Vol] 35 U/L Normal 0-41 [facility] Comment on above: Performed By: #### C MALI, 20127-7, PRINCIPAL TECHNICAL ARCHITECT, LIVR #### [facility] ([id number]) [address], [address] [place] [address] Bilirubin [Mass/Vol] 0.4 mg/dL Normal 0.3-1.2 [facility] Comment on above: Performed By: #### C BCA, 57038-3, PRINCIPAL TECHNICAL ARCHITECT, LIVR #### [facility] ([id number]) [address], [address] [place] [address] Calcium [Mass/Vol] 9.4 mg/dL Normal 8.5-10.5 [facility] Comment on above: Performed By: #### C BCA, 05633-9, PRINCIPAL TECHNICAL ARCHITECT, LIVR #### [facility] ([id number]) [address], [address] [place] [address] Chloride [Moles/Vol] 107 mmol/L Normal 98-109 [facility] Comment on above: Performed By: #### C MALI 52065-7, PRINCIPAL TECHNICAL ARCHITECT, LIVR #### [facility] ([id number]) [address], [address] [place] [address] CO2 [Moles/Vol] 23 mmol/L Normal 22-32 [facility] Comment on above: Performed By: #### C MALI 46340-4, PRINCIPAL TECHNICAL ARCHITECT, LIVR #### [facility] ([id number]) [address], [address] [place] [address] Creatinine [Mass/Vol] 0.83 mg/dL Normal 0.40-1.00 [facility] Comment on above: Result Comment: METH OD TRACEABLE TO IDMS STANDARD Performed By: #### C MALI 13391-1, PRINCIPAL TECHNICAL ARCHITECT, LIVR #### [facility] ([id number]) [address], [address] [place] [address] GFR/1.73 sq M.predicted among non-blacks MDRD (S/P/Bld) [Vol rate/Area] 70 mL/min/{1.73_m2} Normal >59 [facility] Comment on above: Result Comment: Reported eGFR is based on the CKD-EPI 2020 equation that does not use a race coefficient. Performed By: #### C MALI 44566-6, PRINCIPAL TECHNICAL ARCHITECT, LIVR #### [facility] ([id number]) [address], [address] [place] [address] Glucose [Mass/Vol] 100 mg/dL High 65-99 [facility] Comment on above: Performed By: #### C MALI 21642-1, PRINCIPAL TECHNICAL ARCHITECT, LIVR #### [facility] ([id number]) [address], [address] [place] [address] Potassium [Moles/Vol] 3.8 mmol/L Normal 3.5-5.0 [facility] Comment on above: Performed By: #### C MALI, 11618-4, PRINCIPAL TECHNICAL ARCHITECT, LIVR #### [facility] ([id number]) [address], [address] [place] [address] Protein [Mass/Vol] 6.5 g/dL Normal 6.0-8.0 [facility] Comment on above: Performed By: #### C MALI, 35096-4, PRINCIPAL TECHNICAL ARCHITECT, LIVR #### [facility] ([id number]) [address], [address] [place] [address] Sodium [Moles/Vol] 140 mmol/L Normal 134-146 [facility] Comment on above: Performed By: #### C MALI, 41767-8, PRINCIPAL TECHNICAL ARCHITECT, LIVR #### [facility] ([id number]) [address], [address] [place] [address] Urea nitrogen [Mass/Vol] 18 mg/dL Normal 5-27 [facility] Comment on above: Performed By: #### C MALI, 92693-9, PRINCIPAL TECHNICAL ARCHITECT, LIVR #### [facility] ([id number]) [address], [address] [place] [address] CBC AND AUTO DIFFon 12-11-19 24 ABSOLUTE BASOPHIL 0.1 X10E9/L Normal 0.0-0.2 [facility] Comment on above: Performed By: #### Ha SAMSON, 83205-6, PRINCIPAL TECHNICAL ARCHITECT, LIVR #### [facility] ([id number]) [address], [address] [place] [address] ABSOLUTE NEUTROPHIL 3.8 X10E9/L Normal 1.5-6.6 [facility] Comment on above: Performed By: #### C MALI, 90912-8, PRINCIPAL TECHNICAL ARCHITECT, LIVR #### [facility] ([id number]) [address], [address] [place] [address] Basophils/100 WBC (Bld) 2.0 % Normal [facility] Comment on above: Performed By: #### C MALI, 05780-2, PRINCIPAL TECHNICAL ARCHITECT, LIVR #### [facility] ([id number]) [address], [address] [place] [address] Eosinophils (Bld) [#/Vol] 0.2 10*3/uL Normal 0.0-0.4 [facility] Comment on above: Performed By: #### C MALI, 26908-9, PRINCIPAL TECHNICAL ARCHITECT, LIVR #### [facility] ([id number]) [address], [facility] [address] [place] [address] Eosinophils/100 WBC (Bld) 3.3 % Normal [facility] Comment on above: Performed By: #### C MALI, 09793-5, PRINCIPAL TECHNICAL ARCHITECT, LIVR #### [facility] ([id number]) [address], [facility] [address] [place] [address] Erythrocyte distribution width (RBC) [Ratio] 13.8 % Normal 11.5-15.0 [facility] Comment on above: Performed By: #### C MALI, 34817-8, PRINCIPAL TECHNICAL ARCHITECT, LIVR #### [facility] ([id number]) [address], [facility] [address] [place] [address] Hematocrit (Bld) [Volume fraction] 40.1 % Normal 35-47 [facility] Comment on above: Performed By: #### Ha SAMSON, 05453-8, PRINCIPAL TECHNICAL ARCHITECT, LIVR #### [facility] ([id number]) [address], [facility] [address] [place] [address] Hemoglobin (Bld) [Mass/Vol] 13.2 g/dL Normal 11.7-15.5 [facility] Comment on above: Performed By: #### Ha SAMSON, 91677-2, PRINCIPAL TECHNICAL ARCHITECT, LIVR #### [facility] ([id number]) [address], [facility] [address] [place] [address] Lymphocytes (Bld) [#/Vol] 0.9 10*3/uL Low 1.0-3.5 [facility] Comment on above: Performed By: #### C MALI 86650-2, PRINCIPAL TECHNICAL ARCHITECT, LIVR #### [facility] ([id number]) [address], [address] [place] [address] Lymphocytes/100 WBC (Bld) 15.4 % Normal [facility] Comment on above: Performed By: #### Ha SAMSON 36794-8, PRINCIPAL TECHNICAL ARCHITECT, LIVR #### [facility] ([id number]) [address], [facility] [address] [place] [address] MCH (RBC) [Entitic mass] 31.2 pg Normal 27-34 [facility] Comment on above: Performed By: #### Ha SAMSON 46813-9, PRINCIPAL TECHNICAL ARCHITECT, LIVR #### [facility] ([id number]) [address], [facility] [address] [place] [address] MCHC (RBC) [Mass/Vol] 32.8 g/dL Normal 32-36 [facility] Comment on above: Performed By: #### Ha SAMSON 77798-0, PRINCIPAL TECHNICAL ARCHITECT, LIVR #### [facility] ([id number]) [address], [address] [place] [address] MCV (RBC) [Entitic vol] 95 fL Normal 80-100 [facility] Comment on above: Performed By: #### Ha SAMSON, 77411-7, PRINCIPAL TECHNICAL ARCHITECT, LIVR #### [facility] ([id number]) [address], [address] [place] [address] Monocytes (Bld) [#/Vol] 0.7 10*3/uL Normal 0-0.9 [facility] Comment on above: Performed By: #### Ha SAMSON, 66356-3, PRINCIPAL TECHNICAL ARCHITECT, LIVR #### [facility] ([id number]) [address], [address] [place] [address] Monocytes/100 WBC (Bld) 12.2 % Normal [facility] Comment on above: Performed By: #### Ha SAMSON, 31122-9, PRINCIPAL TECHNICAL ARCHITECT, LIVR #### [facility] ([id number]) [address], [address] [place] [address] Neutrophils/100 WBC (Bld) 67.1 % Normal [facility] Comment on above: Performed By: #### Ha SAMSON, 61754-3, PRINCIPAL TECHNICAL ARCHITECT, LIVR #### [facility] ([id number]) [address], [address] [place] [address] Platelet mean volume (Bld) [Entitic vol] 9.5 fL Normal 7-12 [facility] Comment on above: Performed By: #### Ha SAMSON, 01118-5, PRINCIPAL TECHNICAL ARCHITECT, LIVR #### [facility] ([id number]) [address], [address] [place] [address] Platelets (Bld) [#/Vol] 265 10*3/uL Normal 150-450 [facility] Comment on above: Performed By: #### Ha SAMSON, 82952-5, PRINCIPAL TECHNICAL ARCHITECT, LIVR #### [facility] ([id number]) [address], [address] [place] [address] RBC COUNT 4.22 X10E12/L Normal 3.80-5.20 [facility] Comment on above: Performed By: #### Ha SAMSON, 48418-0, PRINCIPAL TECHNICAL ARCHITECT, LIVR #### [facility] ([id number]) [address], [address] [place] [address] WBC (Bld) [#/Vol] 5.6 10*3/uL Normal 4.0-11.0 [facility] Comment on above: Performed By: #### Ha SAMSON, 02429-4, PRINCIPAL TECHNICAL ARCHITECT, LIVR #### [facility] ([id number]) [address], [address] [place] [address] CREATININEon 12-11-2023 Creatinine [Mass/Vol] 0.74 mg/dL Normal 0.40-1.00 [facility] Comment on above: Result Comment: METH OD TRACEABLE TO IDMS STANDARD Performed By: #### C MALI 88375-2, PRINCIPAL TECHNICAL ARCHITECT, LIVR #### [facility] ([id number]) [address], [facility] [address] [place] [address] GFR/1.73 sq M.predicted among non-blacks MDRD (S/P/Bld) [Vol rate/Area] 80 mL/min/{1.73_m2} Normal >59 [facility] Comment on above: Result Comment: Reported eGFR is based on the CKD-EPI 2020 equation that does not use a race coefficient. Performed By: #### C MALI 51522-6, PRINCIPAL TECHNICAL ARCHITECT, LIVR #### [facility] ([id number]) [address], [address] [address] ESR Photometric method (Bld) [Velocity]on 12-11-2023 ESR, ERYTHROCYTE SEDIMENTATION RATE 9 mm/h Normal 0-30 [facility] Comment on above: Performed By: #### C MALI 24505-9, PRINCIPAL TECHNICAL ARCHITECT, LIVR #### [facility] ([id number]) [address] [address] LIVER PANELon 12-11-2023 Albumin [Mass/Vol] 3.4 g/dL Normal 3.2-5.3 [facility] Comment on above: Performed By: #### C MALI, 41904-0, PRINCIPAL TECHNICAL ARCHITECT, LIVR #### [facility] ([id number]) [address] [address] ALP [Catalytic activity/Vol] 84 U/L Normal 39-130 [facility] Comment on above: Performed By: #### C MALI, 00757-0, PRINCIPAL TECHNICAL ARCHITECT, LIVR #### [facility] ([id number]) [address], [address] [address] ALT [Catalytic activity/Vol] 19 U/L Normal 0-31 [facility] Comment on above: Performed By: #### C MALI, 53062-1, PRINCIPAL TECHNICAL ARCHITECT, LIVR #### [facility] ([id number]) [address], [address] [place] [address] AST [Catalytic activity/Vol] 31 U/L Normal 0-41 [facility] Comment on above: Performed By: #### C MALI, 29049-7, PRINCIPAL TECHNICAL ARCHITECT, LIVR #### [facility] ([id number]) [address], [facility] [address] [place] [address] Bilirubin [Mass/Vol] 0.5 mg/dL Normal 0.3-1.2 [facility] Comment on above: Performed By: #### C MALI 12754-3, PRINCIPAL TECHNICAL ARCHITECT, LIVR #### [facility] ([id number]) [address], [facility] [address] [place] [address] Bilirubin.direct [Mass/Vol] 0.1 mg/dL Normal 0.0-0.4 [facility] Comment on above: Performed By: #### C MALI, 26486-8, PRINCIPAL TECHNICAL ARCHITECT, LIVR #### [facility] ([id number]) [address], [facility] [address] [place] [address] Protein [Mass/Vol] 6.1 g/dL Normal 6.0-8.0 [facility] Comment on above: Performed By: #### C MALI, 24476-5, PRINCIPAL TECHNICAL ARCHITECT, LIVR #### [facility] ([id number]) [address], [facility] [address] [place] [address] CBC AND AUTO DIFFon 12-01-19 24 ABSOLUTE BASOPHIL 0.1 X10E9/L Normal 0.0-0.2 [facility] Comment on above: Performed By: #### C MALI, CMP #### [facility] ([id number]) [address], [address] [place] [address] ABSOLUTE NEUTROPHIL 4.7 X10E9/L Normal 1.5-6.6 [facility] Comment on above: Performed By: #### C MALI, CMP #### [facility] ([id number]) [address], [address] [place] [address] Basophils/100 WBC (Bld) 1.5 % Normal [facility] Comment on above: Performed By: #### C BCA, CMP #### [facility] ([id number]) [address], [facility] [address] [place] [address] Eosinophils (Bld) [#/Vol] 0.3 10*3/uL Normal 0.0-0.4 [facility] Comment on above: Performed By: #### C MALI, CMP #### [facility] ([id number]) [address], [facility] [address] [place] [address] Eosinophils/100 WBC (Bld) 3.7 % Normal [facility] Comment on above: Performed By: #### C MALI, CMP #### [facility] ([id number]) [address], [address] [place] [address] Erythrocyte distribution width (RBC) [Ratio] 14.0 % Normal 11.5-15.0 [facility] Comment on above: Performed By: #### C MALI, CMP #### [facility] ([id number]) [address], [address] [place] [address] Hematocrit (Bld) [Volume fraction] 40.8 % Normal 35-47 [facility] Comment on above: Performed By: #### C MALI, CMP #### [facility] ([id number]) [address] [address] [place] [address] Hemoglobin (Bld) [Mass/Vol] 13.5 g/dL Normal 11.7-15.5 [facility] Comment on above: Performed By: #### C BCA, CMP #### [facility] ([id number]) [address], [address] [place] [address] Lymphocytes (Bld) [#/Vol] 1.4 10*3/uL Normal 1.0-3.5 [facility] Comment on above: Performed By: #### C BCA, CMP #### [facility] ([id number]) [address], [address] [place] [address] Lymphocytes/100 WBC (Bld) 18.5 % Normal [facility] Comment on above: Performed By: #### C MALI, CMP #### [facility] ([id number]) [address], [address] [place] [address] MCH (RBC) [Entitic mass] 31.2 pg Normal 27-34 [facility] Comment on above: Performed By: #### C MALI, CMP #### [facility] ([id number]) [address], [address] [place] [address] MCHC (RBC) [Mass/Vol] 33.0 g/dL Normal 32-36 [facility] Comment on above: Performed By: #### C MALI, CMP #### [facility] ([id number]) [address], [address] [place] [address] MCV (RBC) [Entitic vol] 94 fL Normal 80-100 [facility] Comment on above: Performed By: #### C BCA, CMP #### [facility] ([id number]) [address], [address] [place] [address] Monocytes (Bld) [#/Vol] 1.0 10*3/uL High 0-0.9 [facility] Comment on above: Performed By: #### C BCA, CMP #### [facility] ([id number]) [address], [address] [place] [address] Monocytes/100 WBC (Bld) 13.5 % Normal [facility] Comment on above: Performed By: #### C BCA, CMP #### [facility] ([id number]) [address], [address] [place] [address] Neutrophils/100 WBC (Bld) 62.8 % Normal [facility] Comment on above: Performed By: #### C BCA, CMP #### [facility] ([id number]) [address], [facility] [address] [place] [address] Platelet mean volume (Bld) [Entitic vol] 9.8 fL Normal 7-12 [facility] Comment on above: Performed By: #### C BCA, CMP #### [facility] ([id number]) [address] [address] [place] [address] Platelets (Bld) [#/Vol] 301 10*3/uL Normal 150-450 [facility] Comment on above: Performed By: #### C BCA, CMP #### [facility] ([id number]) [address], [address] [place] [address] RBC COUNT 4.32 X10E12/L Normal 3.80-5.20 [facility] Comment on above: Performed By: #### C BCA, CMP #### [facility] ([id number]) [address] [place] [address] WBC (Bld) [#/Vol] 7.6 10*3/uL Normal 4.0-11.0 [facility] Comment on above: Performed By: #### C BCA, CMP #### [facility] ([id number]) [address], [address] [place] [address] COMPREHENSIVE METABOLIC PANE Henry 12-01-2023 Albumin [Mass/Vol] 3.7 g/dL Normal 3.2-5.3 [facility] Comment on above: Performed By: #### C BCA, CMP #### [facility] ([id number]) [address], [address] [place] [address] ALP [Catalytic activity/Vol] 92 U/L Normal 39-130 [facility] Comment on above: Performed By: #### C BCA, CMP #### [facility] ([id number]) [address], [address] [place] [address] ALT [Catalytic activity/Vol] 15 U/L Normal 0-31 [facility] Comment on above: Performed By: #### C BCA, CMP #### [facility] ([id number]) [address], [address] [place] [address] Anion gap [Moles/Vol] 10 mmol/L Normal 5-15 [facility] Comment on above: Performed By: #### C BCA, CMP #### [facility] ([id number]) [address], [address] [place] [address] AST [Catalytic activity/Vol] 29 U/L Normal 0-41 [facility] Comment on above: Performed By: #### C BCA, CMP #### [facility] ([id number]) [address], [address] [place] [address] Bilirubin [Mass/Vol] 0.5 mg/dL Normal 0.3-1.2 [facility] Comment on above: Performed By: #### C BCA, CMP #### [facility] ([id number]) [address], [address] [place] [address] Calcium [Mass/Vol] 9.6 mg/dL Normal 8.5-10.5 [facility] Comment on above: Performed By: #### C BCA, CMP #### [facility] ([id number]) [address], [address] [place] [address] Chloride [Moles/Vol] 107 mmol/L Normal 98-109 [facility] Comment on above: Performed By: #### C BCA, CMP #### [facility] ([id number]) [address], [address] [place] [address] CO2 [Moles/Vol] 23 mmol/L Normal 22-32 [facility] Comment on above: Performed By: #### C BCA, CMP #### [facility] ([id number]) [address], [address] [place] [address] Creatinine [Mass/Vol] 0.75 mg/dL Normal 0.40-1.00 [facility] Comment on above: Result Comment: METH OD TRACEABLE TO IDMS STANDARD Performed By: #### C BCA, CMP #### [facility] ([id number]) [address], [address] [place] [address] GFR/1.73 sq M.predicted among non-blacks MDRD (S/P/Bld) [Vol rate/Area] 79 mL/min/{1.73_m2} Normal >59 [facility] Comment on above: Result Comment: Reported eGFR is based on the CKD-EPI 2020 equation that does not use a race coefficient. Performed By: #### C BCA, CMP #### [facility] ([id number]) [address], [address] [place] [address] Glucose [Mass/Vol] 88 mg/dL Normal 65-99 [facility] Comment on above: Performed By: #### C BCA, CMP #### [facility] ([id number]) [address] [address] [place] [address] Potassium [Moles/Vol] 3.7 mmol/L Normal 3.5-5.0 [facility] Comment on above: Performed By: #### C BCA, CMP #### [facility] ([id number]) [address], [address] [place] [address] Protein [Mass/Vol] 6.7 g/dL Normal 6.0-8.0 [facility] Comment on above: Performed By: #### C BCA, CMP #### [facility] ([id number]) [address], [address] [place] [address] Sodium [Moles/Vol] 140 mmol/L Normal 134-146 [facility] Comment on above: Performed By: #### C BCA, CMP #### [facility] ([id number]) [address], [address] [place] [address] Urea nitrogen [Mass/Vol] 16 mg/dL Normal 5-27 [facility] Comment on above: Performed By: #### C BCA, CMP #### [facility] ([id number]) [address], [address] [place] [address] PATHOLOGY REQUEST FOR LAB CO RPon 11-09-2023 PATHOLOGY REQUEST FOR LAB RAY [facility] [employer] Comment on above: See report. Scanned copy available in EMR. PATHOLOGY BREAST BIOPSY [facility] Pathology Request for Lab Co rpon 11-03-2023 Pathology Request for Lab Ray Normal [facility] Comment on above: Order Comment: PATHO LOGY BREAST BIOPSY Result Comment: See report. Scanned copy available in EMR. PERFORMED BY: [place] [address] PATHOLOGIST ELECTROMEDICAL EQUIPMENT TECHNICIAN TOBIAS SCOTT M.D. Performed By: #### P ATH TO [facility] #### [address] Surgical PathologyOrdered By : Yue Joel on 11-03-[address] [facility] CBC AND AUTO DIFFon 10-02-19 24 ABSOLUTE BASOPHIL 0.1 X10E9/L Normal 0.0-0.2 [facility] Comment on above: Performed By: #### C BCA, 65127-6, PRINCIPAL TECHNICAL ARCHITECT, LIVR #### [facility] ([id number]) [address], [address] [place] [address] ABSOLUTE NEUTROPHIL 5.0 X10E9/L Normal 1.5-6.6 [facility] Comment on above: Performed By: #### C BCA, 04943-1, PRINCIPAL TECHNICAL ARCHITECT, LIVR #### [facility] ([id number]) [address], [address] [place] [address] Basophils/100 WBC (Bld) 1.4 % Normal [facility] Comment on above: Performed By: #### C MALI, 79231-5, PRINCIPAL TECHNICAL ARCHITECT, LIVR #### [facility] ([id number]) [address], [address] [place] [address] Eosinophils (Bld) [#/Vol] 0.3 10*3/uL Normal 0.0-0.4 [facility] Comment on above: Performed By: #### C MALI, 21451-0, PRINCIPAL TECHNICAL ARCHITECT, LIVR #### [facility] ([id number]) [address], [facility] [address] [place] [address] Eosinophils/100 WBC (Bld) 3.4 % Normal [facility] Comment on above: Performed By: #### Ha SAMSON, 76547-6, PRINCIPAL TECHNICAL ARCHITECT, LIVR #### [facility] ([id number]) [address] [address] [place] [address] Erythrocyte distribution width (RBC) [Ratio] 13.4 % Normal 11.5-15.0 [facility] Comment on above: Performed By: #### Ha SAMSON, 66787-4, PRINCIPAL TECHNICAL ARCHITECT, LIVR #### [facility] ([id number]) [address], [facility] [address] [place] [address] Hematocrit (Bld) [Volume fraction] 42.3 % Normal 35-47 [facility] Comment on above: Performed By: #### C MALI, 75211-4, PRINCIPAL TECHNICAL ARCHITECT, LIVR #### [facility] ([id number]) [address] [place] [address] Hemoglobin (Bld) [Mass/Vol] 14.6 g/dL Normal 11.7-15.5 [facility] Comment on above: Performed By: #### Ha SAMSON, 86521-9, PRINCIPAL TECHNICAL ARCHITECT, LIVR #### [facility] ([id number]) [address] [place] [address] Lymphocytes (Bld) [#/Vol] 1.0 10*3/uL Normal 1.0-3.5 [facility] Comment on above: Performed By: #### Ha SAMSON, 56138-8, PRINCIPAL TECHNICAL ARCHITECT, LIVR #### [facility] ([id number]) [address] [place] [address] Lymphocytes/100 WBC (Bld) 13.3 % Normal [facility] Comment on above: Performed By: #### Ha SAMSON 74280-8, PRINCIPAL TECHNICAL ARCHITECT, LIVR #### [facility] ([id number]) [address] [address] MCH (RBC) [Entitic mass] 32.4 pg Normal 27-34 [facility] Comment on above: Performed By: #### Ha SAMSON, 38178-2, PRINCIPAL TECHNICAL ARCHITECT, LIVR #### [facility] ([id number]) [address] [place] [address] MCHC (RBC) [Mass/Vol] 34.6 g/dL Normal 32-36 [facility] Comment on above: Performed By: #### Ha SAMSON, 02456-4, PRINCIPAL TECHNICAL ARCHITECT, LIVR #### [facility] ([id number]) [address] [address] MCV (RBC) [Entitic vol] 94 fL Normal 80-100 [facility] Comment on above: Performed By: #### Ha SAMSON, 89341-8, PRINCIPAL TECHNICAL ARCHITECT, LIVR #### [facility] ([id number]) [address] [place] [address] Monocytes (Bld) [#/Vol] 1.0 10*3/uL High 0-0.9 [facility] Comment on above: Performed By: #### Ha SAMSON, 33956-6, PRINCIPAL TECHNICAL ARCHITECT, LIVR #### [facility] ([id number]) [address], [facility] [address] [place] [address] Monocytes/100 WBC (Bld) 14.0 % Normal [facility] Comment on above: Performed By: #### Ha SAMSON, 62616-6, PRINCIPAL TECHNICAL ARCHITECT, LIVR #### [facility] ([id number]) [address], [facility] [address] [place] [address] Neutrophils/100 WBC (Bld) 67.9 % Normal [facility] Comment on above: Performed By: #### C MALI, 52397-9, PRINCIPAL TECHNICAL ARCHITECT, LIVR #### [facility] ([id number]) [address], [facility] [address] [place] [address] Platelet mean volume (Bld) [Entitic vol] 9.7 fL Normal 7-12 [facility] Comment on above: Performed By: #### Ha SAMSON, 35662-9, PRINCIPAL TECHNICAL ARCHITECT, LIVR #### [facility] ([id number]) [address], [facility] [address] [place] [address] Platelets (Bld) [#/Vol] 290 10*3/uL Normal 150-450 [facility] Comment on above: Performed By: #### Ha SAMSON, 57946-3, PRINCIPAL TECHNICAL ARCHITECT, LIVR #### [facility] ([id number]) [address], [facility] [address] [place] [address] RBC COUNT 4.53 X10E12/L Normal 3.80-5.20 [facility] Comment on above: Performed By: #### Ha SAMSON, 71632-5, PRINCIPAL TECHNICAL ARCHITECT, LIVR #### [facility] ([id number]) [address], [facility] [address] [place] [address] WBC (Bld) [#/Vol] 7.4 10*3/uL Normal 4.0-11.0 [facility] Comment on above: Performed By: #### Ha SAMSON, 62248-1, PRINCIPAL TECHNICAL ARCHITECT, LIVR #### [facility] ([id number]) [address] [address] CREATININEon 10-02-2023 Creatinine [Mass/Vol] 0.79 mg/dL Normal 0.40-1.00 [facility] Comment on above: Result Comment: METH OD TRACEABLE TO IDMS STANDARD Performed By: #### C MALI, 40847-1, PRINCIPAL TECHNICAL ARCHITECT, LIVR #### [facility] ([id number]) [address] [address] GFR/1.73 sq M.predicted among non-blacks MDRD (S/P/Bld) [Vol rate/Area] 74 mL/min/{1.73_m2} Normal >59 [facility] Comment on above: Result Comment: Reported eGFR is based on the CKD-EPI 2020 equation that does not use a race coefficient. Performed By: #### C MALI, 81364-2, PRINCIPAL TECHNICAL ARCHITECT, LIVR #### [facility] ([id number]) [address] [address] ESR Photometric method (Bld) [Velocity]on 10-02-2023 ESR, ERYTHROCYTE SEDIMENTATION RATE 7 mm/h Normal 0-30 [facility] Comment on above: Performed By: #### C MALI, 64822-3, PRINCIPAL TECHNICAL ARCHITECT, LIVR #### [facility] ([id number]) [address] [address] LIVER PANELon 10-02-2023 Albumin [Mass/Vol] 3.8 g/dL Normal 3.2-5.3 [facility] Comment on above: Performed By: #### C MALI, 52920-3, PRINCIPAL TECHNICAL ARCHITECT, LIVR #### [facility] ([id number]) [address] [address] ALP [Catalytic activity/Vol] 86 U/L Normal 39-130 [facility] Comment on above: Performed By: #### C MALI, 81075-1, PRINCIPAL TECHNICAL ARCHITECT, LIVR #### [facility] ([id number]) [address], [address] [place] [address] ALT [Catalytic activity/Vol] 12 U/L Normal 0-31 [facility] Comment on above: Performed By: #### C BCA, 88905-1, PRINCIPAL TECHNICAL ARCHITECT, LIVR #### [facility] ([id number]) [address], [address] [place] [address] AST [Catalytic activity/Vol] 23 U/L Normal 0-41 [facility] Comment on above: Performed By: #### C MALI, 61617-6, PRINCIPAL TECHNICAL ARCHITECT, LIVR #### [facility] ([id number]) [address], [address] [place] [address] Bilirubin [Mass/Vol] 0.6 mg/dL Normal 0.3-1.2 [facility] Comment on above: Performed By: #### C MALI, 73626-3, PRINCIPAL TECHNICAL ARCHITECT, LIVR #### [facility] ([id number]) [address], [address] [place] [address] Bilirubin.direct [Mass/Vol] 0.1 mg/dL Normal 0.0-0.4 [facility] Comment on above: Performed By: #### C MALI, 44833-4, PRINCIPAL TECHNICAL ARCHITECT, LIVR #### [facility] ([id number]) [address], [address] [place] [address] Protein [Mass/Vol] 6.6 g/dL Normal 6.0-8.0 [facility] Comment on above: Performed By: #### C BCA, 73142-0, PRINCIPAL TECHNICAL ARCHITECT, LIVR #### [facility] ([id number]) [address], [address] [place] [address] CBC AND AUTO DIFFon 07-09-19 24 ABSOLUTE BASOPHIL 0.1 X10E9/L Normal 0.0-0.2 [facility] Comment on above: Performed By: #### C MALI, 11571-9, PRINCIPAL TECHNICAL ARCHITECT, LIVR #### [facility] ([id number]) [address], [address] [place] [address] ABSOLUTE NEUTROPHIL 4.2 X10E9/L Normal 1.5-6.6 [facility] Comment on above: Performed By: #### Ha SAMSON, 02929-1, PRINCIPAL TECHNICAL ARCHITECT, LIVR #### [facility] ([id number]) [address], [address] [place] [address] Basophils/100 WBC (Bld) 2.2 % Normal [facility] Comment on above: Performed By: #### Ha SAMSON 91207-6, PRINCIPAL TECHNICAL ARCHITECT, LIVR #### [facility] ([id number]) [address], [address] [place] [address] Eosinophils (Bld) [#/Vol] 0.2 10*3/uL Normal 0.0-0.4 [facility] Comment on above: Performed By: #### C MALI, 64215-3, PRINCIPAL TECHNICAL ARCHITECT, LIVR #### [facility] ([id number]) [address], [address] [place] [address] Eosinophils/100 WBC (Bld) 3.7 % Normal [facility] Comment on above: Performed By: #### Ha SAMSON, 05700-0, PRINCIPAL TECHNICAL ARCHITECT, LIVR #### [facility] ([id number]) [address], [address] [place] [address] Erythrocyte distribution width (RBC) [Ratio] 14.4 % Normal 11.5-15.0 [facility] Comment on above: Performed By: #### Ha SAMSON, 60818-9, PRINCIPAL TECHNICAL ARCHITECT, LIVR #### [facility] ([id number]) [address], [address] [place] [address] Hematocrit (Bld) [Volume fraction] 41.2 % Normal 35-47 [facility] Comment on above: Performed By: #### C MALI, 23264-4, PRINCIPAL TECHNICAL ARCHITECT, LIVR #### [facility] ([id number]) [address], [address] [place] [address] Hemoglobin (Bld) [Mass/Vol] 14.1 g/dL Normal 11.7-15.5 [facility] Comment on above: Performed By: #### Ha SAMSON, 56056-5, PRINCIPAL TECHNICAL ARCHITECT, LIVR #### [facility] ([id number]) [address], [address] [place] [address] Lymphocytes (Bld) [#/Vol] 1.2 10*3/uL Normal 1.0-3.5 [facility] Comment on above: Performed By: #### Ha SAMSON, 97083-5, PRINCIPAL TECHNICAL ARCHITECT, LIVR #### [facility] ([id number]) [address], [facility] [address] [place] [address] Lymphocytes/100 WBC (Bld) 17.9 % Normal [facility] Comment on above: Performed By: #### Ha SAMSON, 24022-6, PRINCIPAL TECHNICAL ARCHITECT, LIVR #### [facility] ([id number]) [address], [address] [place] [address] MCH (RBC) [Entitic mass] 32.0 pg Normal 27-34 [facility] Comment on above: Performed By: #### Ha SAMSON, 91037-6, PRINCIPAL TECHNICAL ARCHITECT, LIVR #### [facility] ([id number]) [address], [address] [place] [address] MCHC (RBC) [Mass/Vol] 34.3 g/dL Normal 32-36 [facility] Comment on above: Performed By: #### Ha SAMSON, 97925-7, PRINCIPAL TECHNICAL ARCHITECT, LIVR #### [facility] ([id number]) [address], [address] [place] [address] MCV (RBC) [Entitic vol] 93 fL Normal 80-100 [facility] Comment on above: Performed By: #### C MALI, 74833-0, PRINCIPAL TECHNICAL ARCHITECT, LIVR #### [facility] ([id number]) [address], [address] [place] [address] Monocytes (Bld) [#/Vol] 0.9 10*3/uL Normal 0-0.9 [facility] Comment on above: Performed By: #### Ha SAMSON, 92535-1, PRINCIPAL TECHNICAL ARCHITECT, LIVR #### [facility] ([id number]) [address], [address] [place] [address] Monocytes/100 WBC (Bld) 13.2 % Normal [facility] Comment on above: Performed By: #### Ha SAMSON, 45443-5, PRINCIPAL TECHNICAL ARCHITECT, LIVR #### [facility] ([id number]) [address], [address] [place] [address] Neutrophils/100 WBC (Bld) 63.0 % Normal [facility] Comment on above: Performed By: #### Ha SAMSON, 72334-7, PRINCIPAL TECHNICAL ARCHITECT, LIVR #### [facility] ([id number]) [address] [place] [address] Platelet mean volume (Bld) [Entitic vol] 9.7 fL Normal 7-12 [facility] Comment on above: Performed By: #### Ha SAMSON, 37605-5, PRINCIPAL TECHNICAL ARCHITECT, LIVR #### [facility] ([id number]) [address] [place] [address] Platelets (Bld) [#/Vol] 275 10*3/uL Normal 150-450 [facility] Comment on above: Performed By: #### Ha SAMSON, 09691-3, PRINCIPAL TECHNICAL ARCHITECT, LIVR #### [facility] ([id number]) [address] [place] [address] RBC COUNT 4.42 X10E12/L Normal 3.80-5.20 [facility] Comment on above: Performed By: #### C MALI, 68698-0, PRINCIPAL TECHNICAL ARCHITECT, LIVR #### [facility] ([id number]) [address] [address] WBC (Bld) [#/Vol] 6.6 10*3/uL Normal 4.0-11.0 [facility] Comment on above: Performed By: #### C MALI, 45013-2, PRINCIPAL TECHNICAL ARCHITECT, LIVR #### [facility] ([id number]) [address] [address] CREATININEon 07-09-2023 Creatinine [Mass/Vol] 0.70 mg/dL Normal 0.40-1.00 [facility] Comment on above: Result Comment: METH OD TRACEABLE TO IDMS STANDARD Performed By: #### C MALI, 16626-8, PRINCIPAL TECHNICAL ARCHITECT, LIVR #### [facility] ([id number]) [address] [address] GFR/1.73 sq M.predicted among non-blacks MDRD (S/P/Bld) [Vol rate/Area] 86 mL/min/{1.73_m2} Normal >59 [facility] Comment on above: Result Comment: Reported eGFR is based on the CKD-EPI 2020 equation that does not use a race coefficient. Performed By: #### C MALI, 35334-8, PRINCIPAL TECHNICAL ARCHITECT, LIVR #### [facility] ([id number]) [address] [address] ESR Photometric method (Bld) [Velocity]on 07-09-2023 ESR, ERYTHROCYTE SEDIMENTATION RATE 5 mm/h Normal 0-30 [facility] Comment on above: Performed By: #### C MALI, 07049-2, PRINCIPAL TECHNICAL ARCHITECT, LIVR #### [facility] ([id number]) [address] [place] [address] LIVER PANELon 07-09-2023 Albumin [Mass/Vol] 3.9 g/dL Normal 3.2-5.3 [facility] Comment on above: Performed By: #### C MALI, 71694-2, PRINCIPAL TECHNICAL ARCHITECT, LIVR #### [facility] ([id number]) [address] [place] [address] ALP [Catalytic activity/Vol] 104 U/L Normal 39-130 [facility] Comment on above: Performed By: #### C MALI, 53921-3, PRINCIPAL TECHNICAL ARCHITECT, LIVR #### [facility] ([id number]) [address], [address] [place] [address] ALT [Catalytic activity/Vol] 21 U/L Normal 0-31 [facility] Comment on above: Performed By: #### C MALI, 03888-3, PRINCIPAL TECHNICAL ARCHITECT, LIVR #### [facility] ([id number]) [address] [place] [address] AST [Catalytic activity/Vol] 32 U/L Normal 0-41 [facility] Comment on above: Performed By: #### C MALI, 30334-2, PRINCIPAL TECHNICAL ARCHITECT, LIVR #### [facility] ([id number]) [address] [place] [address] Bilirubin [Mass/Vol] 0.5 mg/dL Normal 0.3-1.2 [facility] Comment on above: Performed By: #### C MALI, 96142-3, PRINCIPAL TECHNICAL ARCHITECT, LIVR #### [facility] ([id number]) [address], [address] [place] [address] Bilirubin.direct [Mass/Vol] 0.1 mg/dL Normal 0.0-0.4 [facility] Comment on above: Performed By: #### Ha SAMSON, 43068-2, PRINCIPAL TECHNICAL ARCHITECT, LIVR #### [facility] ([id number]) [address], [address] [place] [address] Protein [Mass/Vol] 6.8 g/dL Normal 6.0-8.0 [facility] Comment on above: Performed By: #### C BCA, 88994-1, PRINCIPAL TECHNICAL ARCHITECT, LIVR #### [facility] ([id number]) [address], [address] [place] [address] POCT EKGon 04-10-[address] [facility] CULTURE URINEon 03-28-2022 CULTURE URINE Isolate 1 Escherichia coli >100,000 cfu/mL of ORGANISM 1 Escherichia coli ANTIBIOTIC M.I.C RX STATUS Ampicillin >=32 R F Ampicillin/Sulbactam 4 S F Piperacillin/Tazobac malave <=4 S F Cefazolin <=4 S F Ceftazidime <=1 S F Ceftriaxone <=1 S F Ertapenem <=0.5 S F Imipenem <=0.25 S F Amikacin <=2 S F Gentamicin >=16 R F Tobramycin >=16 R F Ciprofloxacin >=4 R F Levofloxacin >=8 R F Nitrofurantoin <=16 S F Trimethoprim/Sulfame thoxazole >=320 R F Normal [facility] Comment on above: Performed By: #### C ASA LIVER #### [facility] [address] [place] [address] Dr. Meron Obando CULTURE URINEon 02-10-2022 CULTURE URINE Culture Observations: ERIC TO FOLLOW. Isolate 1 Citrobacter spp. >100,000 cfu/mL of Normal [facility] Comment on above: Performed By: #### C ASA LIVER #### [facility] [address] [place] [address] Dr. Meron Obando UA RANDOM W/MICROSCOPICon BACTERIA MODERATE Abnormal NONE SEEN [facility] Comment on above: Performed By: #### U AMIC #### [facility] [address] [place] [address] Dr. Meron Obando Bilirubin Ql (U) Negative Normal NEGATIVE [facility] Comment on above: Performed By: #### U AMIC #### [facility] [address] [place] [address] Dr. Meron Obando CAST NONE SEEN Normal NONE SEEN [facility] Comment on above: Performed By: #### U AMIC #### [facility] [address] [address] [address] Meron Obando Clarity (U) CLEAR Normal CLEAR [facility] Comment on above: Performed By: #### U AMIC #### [facility] [address] [address] [address] Meron Obando Color (U) YELLOW Normal YELLOW [facility] Comment on above: Performed By: #### U AMIC #### [facility] [address] [place] [address] Dr. Meron Obando Crystals LM Nom (Urine sed) NONE SEEN Normal NONE SEEN [facility] Comment on above: Performed By: #### U AMIC #### [facility] [address] [place] [address] Dr. Meron Obando Epithelial cells LM Ql (Urine sed) FEW Abnormal NONE SEEN /RARE [facility] Comment on above: Performed By: #### U AMIC #### [facility] [address] [address] [address] Meron Obando Glucose Ql (U) Negative Normal NEGATIVE [facility] Comment on above: Performed By: #### U AMIC #### [facility] [address] [place] [address] Dr. Meron Obando Hemoglobin Ql (U) TRACE-INTACT Abnormal NEGATIVE [facility] Comment on above: Performed By: #### U AMIC #### [facility] [address] [address] [address] Meron Obando Ketones Ql (U) Negative Normal NEGATIVE [facility] Comment on above: Performed By: #### U AMIC #### [facility] [address] [address] [address] Meron Obando LEUKOCYTES LARGE Abnormal NEGATIVE [facility] Comment on above: Performed By: #### U AMIC #### [facility] [address] [place] [address] Dr. Meron Obando MUCOUS NONE SEEN Normal NONE SEEN [facility] Comment on above: Performed By: #### U AMIC #### [facility] [address] [address] [address] Meron Obando Nitrite Ql (U) Negative Normal NEGATIVE [facility] Comment on above: Performed By: #### U AMIC #### [facility] [address] [place] [address] Dr. Meron Obando pH (U) 6.0 [pH] Normal 5-9 [facility] Comment on above: Performed By: #### U AMIC #### [facility] [address] [place] [address] Dr. Meron Obando RBC 5-10 Abnormal 0-2 [facility] Comment on above: Performed By: #### U AMIC #### [facility] [address] [place] [address] Dr. Meron Obando SPEC GRAVITY <=1.005 Abnormal 1.005-<=1.02 5 [facility] Comment on above: Performed By: #### U AMIC #### [facility] [address] [place] [address] Dr. Meron Obando UA PROTEIN Negative Normal NEGATIVE/ TRACE [facility] Comment on above: Performed By: #### U AMIC #### [facility] [address] [place] [address] Dr. Meron Obando Urobilinogen Qn (U) 0.2 {Opal'U}/dL Normal 0.2 - 1. 0 [facility] Comment on above: Performed By: #### U AMIC #### [facility] [address] [place] [address] Dr. Meron Obando WBC 50-75 Abnormal NONE SEEN [facility] Comment on above: Performed By: #### U AMIC #### [facility] [address] [place] [address] Dr. Meron Obando C3 and C4 COMPLEMENTon 01-09 Complement C3, Serum 143 mg/dL Normal 82-167 [facility] Comment on above: Performed By: #### C ASA, LIVER #### [facility] [address] [place] [address] Dr. Meron bOando Complement C4, Serum 44 mg/dL Critically high 12-38 [facility] Comment on above: Performed By: #### C ASA, LIVER #### [facility] [address] [address] [address] Meron Obando COMPLEMENT TOTAL (CH50)on Complement, [...] values. Performed By: #### S EDR #### [facility] [address] [place] [address] Dr. Meron Obando CRPon 01-08-2022 CRP [Mass/Vol] mg/L Normal <=1.0 [facility] Comment on above: Performed By: #### L DOMIER, CRP #### [facility] [address] [address] [address] Meron Obando LIVER PROFILEon 01-08-2022 Albumin [Mass/Vol] 3.6 g/dL Normal 3.4-5.0 [facility] Comment on above: Performed By: #### L ADELA, CRP #### [facility] [address] [place] [address] Dr. Meron Obando Albumin/Globulin [Mass ratio] 1.0 {ratio} Normal [facility] Comment on above: Performed By: #### L IVER, CRP #### [facility] [address] [address] [address] Meron Obando ALP [Catalytic activity/Vol] 127 U/L Critically high 46-116 [facility] Comment on above: Performed By: #### L IVER, CRP #### [facility] [address] [place] [address] Dr. Meron Obando ALT [Catalytic activity/Vol] 29 U/L Normal 14-59 [facility] Comment on above: Performed By: #### L IVER, CRP #### [facility] [address] [address] [address] Meron Obando AST [Catalytic activity/Vol] 30 U/L Normal 15-37 [facility] Comment on above: Performed By: #### L IVER, CRP #### [facility] [address] [address] [address] Meron Obando BILI, CONJUGATED 0.2 mg/dL Normal 0.0-0.2 [facility] Comment on above: Performed By: #### L IVER, CRP #### [facility] [address] [place] [address] Dr. Meron Obando Bilirubin [Mass/Vol] 0.8 mg/dL Normal 0.2-1.0 [facility] Comment on above: Performed By: #### L IVER, CRP #### [facility] [address] [place] [address] Dr. Meron Obando Globulin (S) [Mass/Vol] 3.7 g/dL Normal [facility] Comment on above: Performed By: #### L IVER, CRP #### [facility] [address] [place] [address] Dr. Meron Obando Protein [Mass/Vol] 7.3 g/dL Normal 6.4-8.2 [facility] Comment on above: Performed By: #### L IVER, CRP #### [facility] [address] [place] [address] Dr. Meron Obando SED RATE [facility] 2021 SED RATE 35 mm/hr Critically high <=30 [facility] Comment on above: Performed By: #### C ASA, LIVER #### [facility] [address] [place] [address] Dr. Meron Obando UA RANDOM W/MICROSCOPICon BACTERIA MODERATE Abnormal NONE SEEN [facility] Comment on above: Performed By: #### S EDR #### [facility] [address] [place] [address] Dr. Meron Obando Bilirubin Ql (U) Negative Normal NEGATIVE [facility] Comment on above: Performed By: #### S EDR #### [facility] [address] [address] [address] Meron Obando CAST NONE SEEN Normal NONE SEEN [facility] Comment on above: Performed By: #### S EDR #### [facility] [address] [place] [address] Dr. Meron Obando Clarity (U) CLOUDY Abnormal CLEAR [facility] Comment on above: Performed By: #### S EDR #### [facility] [address] [address] [address] Meron Obando Color (U) LT. YELLOW Normal YELLOW [facility] Comment on above: Performed By: #### S EDR #### [facility] [address] [place] [address] Dr. Meron Obando Crystals LM Nom (Urine sed) NONE SEEN Normal NONE SEEN [facility] Comment on above: Performed By: #### S EDR #### [facility] [address] [place] [address] Dr. Meron Obando Epithelial cells LM Ql (Urine sed) FEW Abnormal NONE SEEN /RARE [facility] Comment on above: Performed By: #### S EDR #### [facility] [address] [place] [address] Dr. Meron Obando Glucose Ql (U) Negative Normal NEGATIVE [facility] Comment on above: Performed By: #### S EDR #### [facility] [address] [place] [address] Dr. Meron Obando Hemoglobin Ql (U) TRACE-INTACT Abnormal NEGATIVE [facility] Comment on above: Performed By: #### S EDR #### [facility] [address] [place] [address] Dr. Meron Obando Ketones Ql (U) Negative Normal NEGATIVE [facility] Comment on above: Performed By: #### S EDR #### [facility] [address] [place] [address] Dr. Meron Obando LEUKOCYTES LARGE Abnormal NEGATIVE [facility] Comment on above: Performed By: #### S EDR #### [facility] [address] [place] [address] Dr. Meron Obando MUCOUS NONE SEEN Normal NONE SEEN [facility] Comment on above: Performed By: #### S EDR #### [facility] [address] [place] [address] Dr. Meron Obando Nitrite Ql (U) Negative Normal NEGATIVE [facility] Comment on above: Performed By: #### S EDR #### [facility] [address] [place] [address] Dr. Meron Obando pH (U) 6.0 [pH] Normal 5-9 [facility] Comment on above: Performed By: #### S EDR #### [facility] [address] [place] [address] Dr. Meron Obando RBC 2-5 Abnormal 0-2 [facility] Comment on above: Performed By: #### S EDR #### [facility] [address] [place] [address] Dr. Meron Obando SPEC GRAVITY 1.010 Normal 1.005-<=1.02 5 [facility] Comment on above: Performed By: #### S EDR #### [facility] [address] [place] [address] Dr. Meron Obando UA PROTEIN Negative Normal NEGATIVE/ TRACE [facility] Comment on above: Performed By: #### S EDR #### [facility] [address] [place] [address] Dr. Meron Obando Urobilinogen Qn (U) 0.2 {Opal'U}/dL Normal 0.2 - 1. 0 [facility] Comment on above: Performed By: #### S EDR #### [facility] [address] [place] [address] Dr. Meron Obando WBC (U) [#/Vol] /uL Abnormal NONE SEEN [facility] Comment on above: Performed By: #### S EDR #### [facility] [address] [place] [address] Dr. Meron Obando CULTURE URINEon 12-15-2021 CULTURE URINE Isolate 1 Escherichia coli >100,000 cfu/ml of ORGANISM 1 Escherichia coli ANTIBIOTIC M.I.C RX STATUS Ampicillin 8 S F Ampicillin/Sulbactam 4 S F Piperacillin/Tazobac malave <=4 S F Cefazolin <=4 S F Ceftazidime <=1 S F Ceftriaxone <=1 S F Ertapenem <=0.5 S F Imipenem <=0.25 S F Amikacin <=2 S F Gentamicin <=1 S F Tobramycin <=1 S F Ciprofloxacin <=0.25 S F Levofloxacin <=0.12 S F Nitrofurantoin <=16 S F Trimethoprim/Sulfame thoxazole <=20 S F Normal [facility] Comment on above: Performed By: #### C ASA, LIVER #### [facility] [address] [place] [address] Dr. Meron Obando CBC AUTO DIFFon 12-10-2021 BASO # 0.1 103/ul Normal 0.0-0.1 [facility] Comment on above: Performed By: #### C ASA LIVER #### [facility] [address] [place] [address] Dr. Meron Obando Basophils/100 WBC (Bld) 0.7 % Normal 0.2-2.0 [facility] Comment on above: Performed By: #### C ASA, LIVER #### [facility] [address] [place] [address] Dr. Meron Obando EO # 0.2 103/ul Normal 0.0-0.7 [facility] Comment on above: Performed By: #### C ASA, LIVER #### [facility] [address] [place] [address] Dr. Meron Obando Eosinophils/100 WBC (Bld) 2.4 % Normal 0.9-7.0 [facility] Comment on above: Performed By: #### C ASA, LIVER #### [facility] [address] [place] [address] Dr. Meron Obando Erythrocyte distribution width (RBC) [Ratio] 15.3 % Critically high 11.0-15.0 [facility] Comment on above: Performed By: #### C ASA, LIVER #### [facility] [address] [place] [address] Dr. Meron Obando Hematocrit (Bld) [Volume fraction] 45.6 % Normal 36.0-48.0 [facility] Comment on above: Performed By: #### C ASA, LIVER #### [facility] [address] [place] [address] Dr. Meron Obando Hemoglobin (Bld) [Mass/Vol] 15.3 g/dL Normal 12.0-16.0 [facility] Comment on above: Performed By: #### C ASA, LIVER #### [facility] [address] [place] [address] Dr. Meron Obando IG # 0.03 10e3/ul Normal 0.00-0.03 [facility] Comment on above: Performed By: #### C ASA, LIVER #### [facility] [address] [place] [address] Dr. Meron Obando IG % 0.3 % Normal 0.0-0.5 [facility] Comment on above: Performed By: #### C ASA, LIVER #### [facility] [address] [place] [address] Dr. Meron Obando LYMPH # 1.6 103/ul Normal 1.2-3.8 [facility] Comment on above: Performed By: #### C ASA, LIVER #### [facility] [address] [place] [address] Dr. Meron Obando Lymphocytes/100 WBC (Bld) 17.0 % Critically low 20.5-60.0 [facility] Comment on above: Performed By: #### C ASA, LIVER #### [facility] [address] [place] [address] Dr. Meron Obando MANUAL DIFF REQ NO Normal [facility] Comment on above: Performed By: #### C ASA, LIVER #### [facility] [address] [place] [address] Dr. Meron Obando MCH (RBC) [Entitic mass] 31.4 pg Normal 26.7-34.0 [facility] Comment on above: Performed By: #### C ASA, LIVER #### [facility] [address] [place] [address] Dr. Meron Obando MCHC (RBC) [Mass/Vol] 33.6 g/dL Normal 29.9-35.2 [facility] Comment on above: Performed By: #### C ASA, LIVER #### [facility] [address] [place] [address] Dr. Meron Obando MCV (RBC) [Entitic vol] 93.6 fL Normal 81.0-99.0 [facility] Comment on above: Performed By: #### C ASA, LIVER #### [facility] [address] [place] [address] Dr. Meron Obando MONO # 1.0 103/ul Critically high 0.3-0.8 [facility] Comment on above: Performed By: #### C ASA, LIVER #### [facility] [address] [place] [address] Dr. Meron Obando Monocytes/100 WBC (Bld) 10.9 % Normal 1.7-12.0 [facility] Comment on above: Performed By: #### C ASA, LIVER #### [facility] [address] [place] [address] Dr. Meron Obando NEUT # 6.3 103/ul Normal 1.4-6.5 [facility] Comment on above: Performed By: #### C ASA, LIVER #### [facility] [address] [place] [address] Dr. Meron Obando Neutrophils/100 WBC (Bld) 68.7 % Normal 43.0-75.0 [facility] Comment on above: Performed By: #### C ASA, LIVER #### [facility] [address] [place] [address] Dr. Meron Obando Platelet mean volume (Bld) [Entitic vol] 10.9 fL Normal 9.5-13.5 [facility] Comment on above: Performed By: #### C ASA, LIVER #### [facility] [address] [place] [address] Dr. Meron Obando PLT 300 103/ul Normal 150-450 [facility] Comment on above: Performed By: #### C ASA, LIVER #### [facility] [address] [address] [address] Meron Obando RBC 4.87 106/ul Normal 4.20-5.40 [facility] Comment on above: Performed By: #### C ASA, LIVER #### [facility] [address] [address] [address] Meron Obando WBC 9.2 103/ul Normal 4.0-11.0 [facility] Comment on above: Performed By: #### C ASA, LIVER #### [facility] [address] [place] [address] Dr. Meron Obando CREATININEon 12-10-2021 Creatinine [Mass/Vol] 0.96 mg/dL Normal 0.55-1.02 [facility] Comment on above: Performed By: #### C ASA, LIVER #### [facility] [address] [place] [address] Dr. Meron Obando EGFR-AF BAHRAINI >60 Normal >=60 [facility] Comment on above: Performed By: #### C ASA, LIVER #### [facility] [address] [place] [address] Dr. Meron Obando EGFR-NON AF BAHRAINI 56 mL/min/1.73m2 Critically low >=60 [facility] Comment on above: Performed By: #### C ASA, LIVER #### [facility] [address] [place] [address] Dr. Meron Obando LIVER PROFILEon 12-10-2021 Albumin [Mass/Vol] 3.4 g/dL Normal 3.4-5.0 [facility] Comment on above: Performed By: #### C ASA, LIVER #### [facility] [address] [place] [address] Dr. Meron Obando Albumin/Globulin [Mass ratio] 0.9 {ratio} Normal [facility] Comment on above: Performed By: #### C ASA, LIVER #### [facility] [address] [address] [address] Meron Obando ALP [Catalytic activity/Vol] 149 U/L Critically high 46-116 [facility] Comment on above: Performed By: #### C ASA, LIVER #### [facility] [address] [address] [address] Meron Obando ALT [Catalytic activity/Vol] 36 U/L Normal 14-59 [facility] Comment on above: Performed By: #### C ASA, LIVER #### [facility] [address] [place] [address] Dr. Meron Obando AST [Catalytic activity/Vol] 40 U/L Critically high 15-37 [facility] Comment on above: Performed By: #### C ASA, LIVER #### [facility] [address] [place] [address] Dr. Meron Obando BILI, CONJUGATED 0.2 mg/dL Normal 0.0-0.2 [facility] Comment on above: Performed By: #### C ASA, LIVER #### [facility] [address] [place] [address] Dr. Meron Obando Bilirubin [Mass/Vol] 0.5 mg/dL Normal 0.2-1.0 [facility] Comment on above: Performed By: #### C ASA, LIVER #### [facility] [address] [place] [address] Dr. Meron Obando Globulin (S) [Mass/Vol] 3.7 g/dL Normal [facility] Comment on above: Performed By: #### C ASA, LIVER #### [facility] [address] [place] [address] Dr. Meron Obando Protein [Mass/Vol] 7.1 g/dL Normal 6.4-8.2 [facility] Comment on above: Performed By: #### C ASA, LIVER #### [facility] [address] [place] [address] Dr. Meron Obando SED RATE WESTERGRENon 2021 SED RATE 20 mm/hr Normal <=30 [facility] Comment on above: Performed By: #### S EDR #### [facility] [address] [place] [address] Dr. Meron Obando CBC AUTO DIFFon 11-25-2021 BASO # 0.1 103/ul Normal 0.0-0.1 [facility] Comment on above: Performed By: #### Ha BRAY, LIVER #### [facility] [address] [place] [address] Dr. Meron Obando Basophils/100 WBC (Bld) 1.1 % Normal 0.2-2.0 [facility] Comment on above: Performed By: #### C ASA, LIVER #### [facility] [address] [place] [address] Dr. Meron Obando EO # 0.2 103/ul Normal 0.0-0.7 [facility] Comment on above: Performed By: #### Ha BRAY, LIVER #### [facility] [address] [place] [address] Dr. Meron Obando Eosinophils/100 WBC (Bld) 2.4 % Normal 0.9-7.0 [facility] Comment on above: Performed By: #### Ha BRAY, LIVER #### [facility] [address] [place] [address] Dr. Meron Obando Erythrocyte distribution width (RBC) [Ratio] 15.1 % Critically high 11.0-15.0 [facility] Comment on above: Performed By: #### Ha BRAY, LIVER #### [facility] [address] [place] [address] Dr. Meron Obando Hematocrit (Bld) [Volume fraction] 48.0 % Normal 36.0-48.0 [facility] Comment on above: Performed By: #### Ha BRAY, LIVER #### [facility] [address] [place] [address] Dr. Meron Obando Hemoglobin (Bld) [Mass/Vol] 15.5 g/dL Normal 12.0-16.0 [facility] Comment on above: Performed By: #### Ha BRAY, LIVER #### [facility] [address] [place] [address] Dr. Meron Obando IG # 0.03 10e3/ul Normal 0.00-0.03 [facility] Comment on above: Performed By: #### Ha BRAY, LIVER #### [facility] [address] [address] [address] Meron Obando IG % 0.3 % Normal 0.0-0.5 [facility] Comment on above: Performed By: #### C ASA, LIVER #### [facility] [address] [address] [address] Meron Obando LYMPH # 1.7 103/ul Normal 1.2-3.8 [facility] Comment on above: Performed By: #### C ASA, LIVER #### [facility] [address] [place] [address] Dr. Meron Obando Lymphocytes/100 WBC (Bld) 18.3 % Critically low 20.5-60.0 [facility] Comment on above: Performed By: #### C ASA, LIVER #### [facility] [address] [place] [address] Dr. Meron Obando MANUAL DIFF REQ NO Normal [facility] Comment on above: Performed By: #### C ASA, LIVER #### [facility] [address] [place] [address] Dr. Meron Obando MCH (RBC) [Entitic mass] 30.7 pg Normal 26.7-34.0 [facility] Comment on above: Performed By: #### C ASA, LIVER #### [facility] [address] [place] [address] Dr. Meron Obando MCHC (RBC) [Mass/Vol] 32.3 g/dL Normal 29.9-35.2 [facility] Comment on above: Performed By: #### C ASA, LIVER #### [facility] [address] [place] [address] Dr. Meron Obando MCV (RBC) [Entitic vol] 95.0 fL Normal 81.0-99.0 [facility] Comment on above: Performed By: #### C ASA, LIVER #### [facility] [address] [place] [address] Dr. Meron Obando MONO # 1.0 103/ul Critically high 0.3-0.8 [facility] Comment on above: Performed By: #### C ASA, LIVER #### [facility] [address] [address] [address] Meron Obando Monocytes/100 WBC (Bld) 10.4 % Normal 1.7-12.0 [facility] Comment on above: Performed By: #### C ASA, LIVER #### [facility] [address] [address] [address] Meron Obando NEUT # 6.2 103/ul Normal 1.4-6.5 [facility] Comment on above: Performed By: #### C ASA, LIVER #### [facility] [address] [place] [address] Dr. Meron Obando Neutrophils/100 WBC (Bld) 67.5 % Normal 43.0-75.0 [facility] Comment on above: Performed By: #### C ASA, LIVER #### [facility] [address] [place] [address] Dr. Meron Obando Platelet mean volume (Bld) [Entitic vol] 10.8 fL Normal 9.5-13.5 [facility] Comment on above: Performed By: #### C ASA, LIVER #### [facility] [address] [place] [address] Dr. Meron Obando PLT 295 103/ul Normal 150-450 [facility] Comment on above: Performed By: #### C ASA, LIVER #### [facility] [address] [place] [address] Dr. Meron Obando RBC 5.05 106/ul Normal 4.20-5.40 [facility] Comment on above: Performed By: #### C ASA, LIVER #### [facility] [address] [place] [address] Dr. Meron Obando WBC 9.2 103/ul Normal 4.0-11.0 [facility] Comment on above: Performed By: #### C ASA, LIVER #### [facility] [address] [place] [address] Dr. Meron Obando CREATININEon 11-25-2021 Creatinine [Mass/Vol] 1.03 mg/dL Critically high 0.55-1.02 [facility] Comment on above: Performed By: #### S EDR #### [facility] [address] [place] [address] Dr. Meron Obando EGFR-AF BAHRAINI 39 mL/min/1.73m2 Critically low >=60 [facility] Comment on above: Performed By: #### S EDR #### [facility] [address] [place] [address] Dr. Meron Obando EGFR-NON AF BAHRAINI 32 mL/min/1.73m2 Critically low >=60 [facility] Comment on above: Performed By: #### S EDR #### [facility] [address] [place] [address] Dr. Meron Obando LIVER PROFILEon 11-25-2021 Albumin [Mass/Vol] 3.5 g/dL Normal 3.4-5.0 [facility] Comment on above: Performed By: #### S EDR #### [facility] [address] [place] [address] Dr. Meron Obando Albumin/Globulin [Mass ratio] 1.0 {ratio} Normal [facility] Comment on above: Performed By: #### S EDR #### [facility] [address] [place] [address] Dr. Meron Obando ALP [Catalytic activity/Vol] 135 U/L Critically high 46-116 [facility] Comment on above: Performed By: #### S EDR #### [facility] [address] [place] [address] Dr. Meron Obando ALT [Catalytic activity/Vol] 41 U/L Normal 14-59 [facility] Comment on above: Performed By: #### S EDR #### [facility] [address] [place] [address] Dr. Meron Obando AST [Catalytic activity/Vol] 39 U/L Critically high 15-37 [facility] Comment on above: Performed By: #### S EDR #### [facility] [address] [place] [address] Dr. Meron Obando BILI, CONJUGATED 0.1 mg/dL Normal 0.0-0.2 [facility] Comment on above: Performed By: #### S EDR #### [facility] [address] [place] [address] Dr. Meron Obando Bilirubin [Mass/Vol] 0.5 mg/dL Normal 0.2-1.0 [facility] Comment on above: Performed By: #### S EDR #### [facility] [address] [place] [address] Dr. Meron Obando Globulin (S) [Mass/Vol] 3.5 g/dL Normal [facility] Comment on above: Performed By: #### S EDR #### [facility] [address] [place] [address] Dr. Meron Obando Protein [Mass/Vol] 7.0 g/dL Normal 6.4-8.2 [facility] Comment on above: Performed By: #### S EDR #### [facility] [address] [place] [address] Dr. Meron Obando SED RATE [facility] 2021 SED RATE 11 mm/hr Normal <=30 [facility] Comment on above: Performed By: #### S EDR #### [facility] [address] [place] [address] Dr. Meron Obando CBC AUTO DIFFon 11-13-2021 BASO # 0.1 103/ul Normal 0.0-0.1 [facility] Comment on above: Performed By: #### C BC #### [facility] [address] [place] [address] Dr. Meron Obando Basophils/100 WBC (Bld) 0.8 % Normal 0.2-2.0 [facility] Comment on above: Performed By: #### C BC #### [facility] [address] [place] [address] Dr. Meron Obando EO # 0.2 103/ul Normal 0.0-0.7 [facility] Comment on above: Performed By: #### C BC #### [facility] [address] [place] [address] Dr. Meron Obando Eosinophils/100 WBC (Bld) 1.9 % Normal 0.9-7.0 [facility] Comment on above: Performed By: #### C BC #### [facility] [address] [place] [address] Dr. Meron Obando Erythrocyte distribution width (RBC) [Ratio] 14.4 % Normal 11.0-15.0 [facility] Comment on above: Performed By: #### C BC #### [facility] [address] [place] [address] Dr. Meron Obando Hematocrit (Bld) [Volume fraction] 48.9 % Critically high 36.0-48.0 [facility] Comment on above: Performed By: #### C BC #### [facility] [address] [place] [address] Dr. Meron Obando Hemoglobin (Bld) [Mass/Vol] 16.0 g/dL Normal 12.0-16.0 [facility] Comment on above: Performed By: #### C BC #### [facility] [address] [place] [address] Dr. Meron Obando IG # 0.03 10e3/ul Normal 0.00-0.03 [facility] Comment on above: Performed By: #### C BC #### [facility] [address] [place] [address] Dr. Meron Obando IG % 0.3 % Normal 0.0-0.5 [facility] Comment on above: Performed By: #### C BC #### [facility] [address] [place] [address] Dr. Meron Obando LYMPH # 2.5 103/ul Normal 1.2-3.8 [facility] Comment on above: Performed By: #### C BC #### [facility] [address] [place] [address] Dr. Meron Obando Lymphocytes/100 WBC (Bld) 24.8 % Normal 20.5-60.0 [facility] Comment on above: Performed By: #### C BC #### [facility] [address] [place] [address] Dr. Meron Obando MANUAL DIFF REQ NO Normal [facility] Comment on above: Performed By: #### C BC #### [facility] [address] [place] [address] Dr. Meron Obando MCH (RBC) [Entitic mass] 30.9 pg Normal 26.7-34.0 [facility] Comment on above: Performed By: #### C BC #### [facility] [address] [place] [address] Dr. Meron Obando MCHC (RBC) [Mass/Vol] 32.7 g/dL Normal 29.9-35.2 [facility] Comment on above: Performed By: #### C BC #### [facility] [address] [place] [address] Dr. Meron Obando MCV (RBC) [Entitic vol] 94.4 fL Normal 81.0-99.0 [facility] Comment on above: Performed By: #### C BC #### [facility] [address] [place] [address] Dr. Meron Obando MONO # 0.8 103/ul Normal 0.3-0.8 [facility] Comment on above: Performed By: #### C BC #### [facility] [address] [place] [address] Dr. Meron Obando Monocytes/100 WBC (Bld) 7.7 % Normal 1.7-12.0 [facility] Comment on above: Performed By: #### C BC #### [facility] [address] [place] [address] Dr. Meron Obando NEUT # 6.4 103/ul Normal 1.4-6.5 [facility] Comment on above: Performed By: #### C BC #### [facility] [address] [place] [address] Dr. Meron Obando Neutrophils/100 WBC (Bld) 64.5 % Normal 43.0-75.0 [facility] Comment on above: Performed By: #### C BC #### [facility] [address] [place] [address] Dr. Meron Obando Platelet mean volume (Bld) [Entitic vol] 11.1 fL Normal 9.5-13.5 [facility] Comment on above: Performed By: #### C BC #### [facility] [address] [place] [address] Dr. Meron Obando PLT 306 103/ul Normal 150-450 [facility] Comment on above: Performed By: #### C BC #### [facility] [address] [address] [address] Meron Obando RBC 5.18 106/ul Normal 4.20-5.40 [facility] Comment on above: Performed By: #### C BC #### [facility] [address] [address] [address] Meron Obando WBC 9.9 103/ul Normal 4.0-11.0 [facility] Comment on above: Performed By: #### C BC #### [facility] [address] [place] [address] Dr. Meron Obando CREATININEon 11-13-2021 Creatinine [Mass/Vol] 1.01 mg/dL Normal 0.55-1.02 [facility] Comment on above: Performed By: #### C ASA, LIVER #### [facility] [address] [place] [address] Dr. Meron Obando EGFR-AF BAHRAINI >60 Normal >=60 [facility] Comment on above: Performed By: #### C ASA, LIVER #### [facility] [address] [place] [address] Dr. Meron Obando EGFR-NON AF BAHRAINI 53 mL/min/1.73m2 Critically low >=60 [facility] Comment on above: Performed By: #### C ASA, LIVER #### [facility] [address] [place] [address] Dr. Meron bOando LIVER PROFILEon 11-13-2021 Albumin [Mass/Vol] 3.4 g/dL Normal 3.4-5.0 [facility] Comment on above: Performed By: #### S EDR #### [facility] [address] [place] [address] Dr. Meron Obando Albumin/Globulin [Mass ratio] 0.9 {ratio} Normal [facility] Comment on above: Performed By: #### S EDR #### [facility] [address] [address] [address] Meron Obando ALP [Catalytic activity/Vol] 126 U/L Critically high 46-116 [facility] Comment on above: Performed By: #### S EDR #### [facility] [address] [address] [address] Meron Obando ALT [Catalytic activity/Vol] 58 U/L Normal 14-59 [facility] Comment on above: Performed By: #### S EDR #### [facility] [address] [address] [address] Meron Obando AST [Catalytic activity/Vol] 55 U/L Critically high 15-37 [facility] Comment on above: Performed By: #### S EDR #### [facility] [address] [address] [address] Meron Obando BILI, CONJUGATED 0.1 mg/dL Normal 0.0-0.2 [facility] Comment on above: Performed By: #### S EDR #### [facility] [address] [address] [address] Meron Obando Bilirubin [Mass/Vol] 0.5 mg/dL Normal 0.2-1.0 [facility] Comment on above: Performed By: #### S EDR #### [facility] [address] [address] [address] Meron Obadno Globulin (S) [Mass/Vol] 3.6 g/dL Normal [facility] Comment on above: Performed By: #### S EDR #### [facility] [address] [address] [address] Meron Obando Protein [Mass/Vol] 7.0 g/dL Normal 6.4-8.2 [facility] Comment on above: Performed By: #### S EDR #### [facility] [address] [address] [address] Meron Obando SED RATE [facility] 2021 SED RATE 13 mm/hr Normal <=30 [facility] Comment on above: Performed By: #### S EDR #### [facility] [address] [place] [address] Dr. Meron Obando CBC AUTO DIFFon 10-28-2021 BASO # 0.1 103/ul Normal 0.0-0.1 [facility] Comment on above: Performed By: #### C BC #### [facility] [address] [place] [address] Dr. Meron Obando Basophils/100 WBC (Bld) 1.1 % Normal 0.2-2.0 [facility] Comment on above: Performed By: #### C BC #### [facility] [address] [place] [address] Dr. Meron Obando EO # 0.2 103/ul Normal 0.0-0.7 [facility] Comment on above: Performed By: #### C BC #### [facility] [address] [place] [address] Dr. Meron Obando Eosinophils/100 WBC (Bld) 2.3 % Normal 0.9-7.0 [facility] Comment on above: Performed By: #### C BC #### [facility] [address] [place] [address] Dr. Meron Obando Erythrocyte distribution width (RBC) [Ratio] 13.8 % Normal 11.0-15.0 [facility] Comment on above: Performed By: #### C BC #### [facility] [address] [place] [address] Dr. Meron Obando Hematocrit (Bld) [Volume fraction] 46.7 % Normal 36.0-48.0 [facility] Comment on above: Performed By: #### C BC #### [facility] [address] [place] [address] Dr. Meron Obando Hemoglobin (Bld) [Mass/Vol] 15.1 g/dL Normal 12.0-16.0 [facility] Comment on above: Performed By: #### C BC #### [facility] [address] [place] [address] Dr. Meron Obando IG # 0.04 10e3/ul Critically high 0.00-0.03 [facility] Comment on above: Performed By: #### C BC #### [facility] [address] [place] [address] Dr. Meron Obando IG % 0.4 % Normal 0.0-0.5 [facility] Comment on above: Performed By: #### C BC #### [facility] [address] [place] [address] Dr. Meron Obando LYMPH # 1.8 103/ul Normal 1.2-3.8 [facility] Comment on above: Performed By: #### C BC #### [facility] [address] [place] [address] Dr. Meron Obando Lymphocytes/100 WBC (Bld) 18.7 % Critically low 20.5-60.0 [facility] Comment on above: Performed By: #### C BC #### [facility] [address] [place] [address] Dr. Meron Obando MANUAL DIFF REQ NO Normal [facility] Comment on above: Performed By: #### C BC #### [facility] [address] [place] [address] Dr. Meron Obando MCH (RBC) [Entitic mass] 30.5 pg Normal 26.7-34.0 [facility] Comment on above: Performed By: #### C BC #### [facility] [address] [place] [address] Dr. Meron Obando MCHC (RBC) [Mass/Vol] 32.3 g/dL Normal 29.9-35.2 [facility] Comment on above: Performed By: #### C BC #### [facility] [address] [place] [address] Dr. Meron Obando MCV (RBC) [Entitic vol] 94.3 fL Normal 81.0-99.0 [facility] Comment on above: Performed By: #### C BC #### [facility] [address] [place] [address] Dr. Meron Obando MONO # 1.1 103/ul Critically high 0.3-0.8 [facility] Comment on above: Performed By: #### C BC #### [facility] [address] [address] [address] Meron Obando Monocytes/100 WBC (Bld) 11.0 % Normal 1.7-12.0 [facility] Comment on above: Performed By: #### C BC #### [facility] [address] [address] [address] Meron Obando NEUT # 6.4 103/ul Normal 1.4-6.5 [facility] Comment on above: Performed By: #### C BC #### [facility] [address] [place] [address] Dr. Meron Obando Neutrophils/100 WBC (Bld) 66.5 % Normal 43.0-75.0 [facility] Comment on above: Performed By: #### C BC #### [facility] [address] [place] [address] Dr. Meron Obando Platelet mean volume (Bld) [Entitic vol] 11.1 fL Normal 9.5-13.5 [facility] Comment on above: Performed By: #### C BC #### [facility] [address] [place] [address] Dr. Meron Obando PLT 249 103/ul Normal 150-450 [facility] Comment on above: Performed By: #### C BC #### [facility] [address] [place] [address] Dr. Meron Obando RBC 4.95 106/ul Normal 4.20-5.40 [facility] Comment on above: Performed By: #### C BC #### [facility] [address] [place] [address] Dr. Meron Obando WBC 9.7 103/ul Normal 4.0-11.0 [facility] Comment on above: Performed By: #### C BC #### [facility] [address] [place] [address] Dr. Meron Obando CREATININEon 10-28-2021 Creatinine [Mass/Vol] 0.98 mg/dL Normal 0.55-1.02 [facility] Comment on above: Performed By: #### C ASA, LIVER #### [facility] [address] [place] [address] Dr. Meron Obando EGFR-AF BAHRAINI >60 Normal >=60 [facility] Comment on above: Performed By: #### C ASA, LIVER #### [facility] [address] [place] [address] Dr. Meron Obando EGFR-NON AF BAHRAINI 54 mL/min/1.73m2 Critically low >=60 [facility] Comment on above: Performed By: #### C ASA, LIVER #### [facility] [address] [place] [address] Dr. Meron Obando LIVER PROFILEon 10-28-2021 Albumin [Mass/Vol] 3.3 g/dL Critically low 3.4-5.0 [facility] Comment on above: Performed By: #### C ASA, LIVER #### [facility] [address] [place] [address] Dr. Meron Obando Albumin/Globulin [Mass ratio] 0.9 {ratio} Normal [facility] Comment on above: Performed By: #### C ASA, LIVER #### [facility] [address] [place] [address] Dr. Meron Obando ALP [Catalytic activity/Vol] 127 U/L Critically high 46-116 [facility] Comment on above: Performed By: #### C ASA, LIVER #### [facility] [address] [place] [address] Dr. Meron Obando ALT [Catalytic activity/Vol] 38 U/L Normal 14-59 [facility] Comment on above: Performed By: #### C ASA, LIVER #### [facility] [address] [place] [address] Dr. Meron Obando AST [Catalytic activity/Vol] 33 U/L Normal 15-37 [facility] Comment on above: Performed By: #### C ASA, LIVER #### [facility] [address] [place] [address] Dr. Meron Obando BILI, CONJUGATED 0.1 mg/dL Normal 0.0-0.2 [facility] Comment on above: Performed By: #### C ASA, LIVER #### [facility] [address] [address] [address] Meron Obando Bilirubin [Mass/Vol] 0.3 mg/dL Normal 0.2-1.0 [facility] Comment on above: Performed By: #### C ASA, LIVER #### [facility] [address] [address] [address] Meron Obando Globulin (S) [Mass/Vol] 3.7 g/dL Normal [facility] Comment on above: Performed By: #### C ASA, LIVER #### [facility] [address] [address] [address] Meron Obando Protein [Mass/Vol] 7.0 g/dL Normal 6.4-8.2 [facility] Comment on above: Performed By: #### C ASA, LIVER #### [facility] [address] [place] [address] Dr. [facility] 8 mm/hr Normal <=30 [facility] Comment on above: Performed By: #### S EDR #### [facility] [address] [place] [address] Dr. Meron Obando No Panel InformationOrdered By: Jan Solares on 10-09-2021 Hepatitis B Core Total Antibody Negative Negative [facility] Comment on above: Performed at: [address] [id number] Hay Sorter: Guanaco Cui PhD, Phone: [phone] Q - CULTURE,URINE,ROUTINEon 05-07-2021 CULTURE, URINE, ROUTINE SEE NOTE Normal [facility] [employer] Comment on above: Order Comment: [facility] performed at: QPT, [facility], [address] [place] [address], [address] [place] [address], [id number], Snuff Box Finisher: Harsh Hopkins MD [facility] Collection Date/Time: [id number] [facility] Results Received Date/Time: [facility] Reported Date/Time: Result Comment: CULT URE, URINE, ROUTINE Micro Number: [id number] Test Status: Final Specimen Source: Urine Specimen Quality: Adequate Result: No Growth Performed By: #### [id number] #### [facility] [address] [place] [address] Vital Signs Date Time Vital Sign Value Performing Clinician Facility 06-29-2024 10:28-0400 Body height 147.3 cm Pfo [address] [facility] 06-29-2024 10:28-0400 Body mass index (BMI) [Ratio] 20.36 kg/m2 Pfo [address] [facility] 06-29-2024 10:28-0400 Body temperature 97.9 [degF] Pfo [address] [facility] 06-29-2024 10:28-0400 Body weight 44.18 kg Pfo [address] [facility] 06-29-2024 10:28-0400 Diastolic blood pressure 73 mm[Hg] Pfo [address] [facility] 06-29-2024 10:28-0400 Heart rate 66 /min Pfo [address] [facility] 06-29-2024 10:28-0400 Respiratory rate 18 /min Pfo [address] [facility] 06-29-2024 10:28-0400 SaO2% (BldA) [Mass fraction] 98 % Pfo [address] [facility] 06-29-2024 10:28-0400 Systolic blood pressure 166 mm[Hg] Pfo [address] [facility] 06-09-2024 10:25-0500 Body mass index (BMI) [Ratio] 20.99 kg/m2 Boone Ewing MD Work Phone: [facility] 06-09-2024 10:25-0500 Body temperature 97.7 [degF] Boone Ewing MD Work Phone: [facility] 06-09-2024 10:25-0500 Body weight 44 kg Boone Ewing MD Work Phone: [facility] 06-09-2024 10:25-0500 Diastolic blood pressure 78 mm[Hg] Boone Ewing MD Work Phone: [facility] 06-09-2024 10:25-0500 Heart rate 54 /min Boone Ewing MD Work Phone: [facility] 06-09-2024 10:25-0500 SaO2% (BldA) [Mass fraction] 94 % Boone Ewing MD Work Phone: [facility] 06-09-2024 10:25-0500 Systolic blood pressure 140 mm[Hg] Boone Ewing MD Work Phone: [facility] 06-01-2024 10:58-0500 Body height 147.3 cm Pfo [address] [facility] 06-01-2024 10:58-0500 Body mass index (BMI) [Ratio] 20.53 kg/m2 Pfo [address] [facility] 06-01-2024 10:58-0500 Body temperature 98.01 [degF] Pfo [address] [facility] 06-01-2024 10:58-0500 Body weight 44.54 kg Pfo [address] [facility] 06-01-2024 10:58-0500 Diastolic blood pressure 65 mm[Hg] Pfo [address] [facility] 06-01-2024 10:58-0500 Heart rate 58 /min Pfo [address] [facility] 06-01-2024 10:58-0500 Respiratory rate 18 /min Pfo [address] [facility] 06-01-2024 10:58-0500 SaO2% (BldA) [Mass fraction] 100 % Pfo [address] [facility] 06-01-2024 10:58-0500 Systolic blood pressure 150 mm[Hg] Pfo [address] [facility] 05-09-2024 11:47-0500 Body height 144.8 cm Boone Ewing MD Work Phone: [facility] 05-09-2024 11:47-0500 Body mass index (BMI) [Ratio] 20.99 kg/m2 Boone Ewing MD Work Phone: [facility] 05-09-2024 11:47-0500 Body temperature 97.5 [degF] Boone Ewing MD Work Phone: [facility] 05-09-2024 11:47-0500 Body weight 44 kg Boone Ewing MD Work Phone: [facility] 05-09-2024 11:47-0500 Diastolic blood pressure 68 mm[Hg] Boone Ewing MD Work Phone: [facility] 05-09-2024 11:47-0500 Heart rate 65 /min Booen Ewing MD Work Phone: [facility] 05-09-2024 11:47-0500 Respiratory rate 20 /min Boone Ewing MD Work Phone: [facility] 05-09-2024 11:47-0500 SaO2% (BldA) [Mass fraction] 97 % Boone Ewing MD Work Phone: [facility] 05-09-2024 11:47-0500 Systolic blood pressure 122 mm[Hg] Boone Ewing MD Work Phone: [facility] 05-04-2024 11:03-0500 Body height 147.3 cm Pfo [address] [facility] 05-04-2024 11:03-0500 Body mass index (BMI) [Ratio] 20.45 kg/m2 Pfo [address] [facility] 05-04-2024 11:03-0500 Body temperature 97.5 [degF] Pfo 7 [facility] 05-04-2024 11:03-0500 Body weight 44.36 kg Pfo [address] [facility] 05-04-2024 11:03-0500 Diastolic blood pressure 77 mm[Hg] Pfo [address] [facility] 05-04-2024 11:03-0500 Heart rate 75 /min Pfo [address] [facility] 05-04-2024 11:03-0500 Respiratory rate 20 /min Pfo [address] [facility] 05-04-2024 11:03-0500 SaO2% (BldA) [Mass fraction] 99 % Pfo [address] [facility] 05-04-2024 11:03-0500 Systolic blood pressure 141 mm[Hg] Pfo [address] [facility] 04-22-2024 10:49-0500 Body height 147.3 cm [facility] Cuadra [facility] 04-22-2024 10:49-0500 Body mass index (BMI) [Ratio] 20.91 kg/m2 [facility] 04-22-2024 10:49-0500 Body temperature 97.59 [degF] Will Cuadra MD [facility] 04-22-2024 10:49-0500 Body weight 45.36 kg Will Cuadra MD [facility] 04-22-2024 10:49-0500 Diastolic blood pressure 100 mm[Hg] Will Cuadra MD [facility] 04-22-2024 10:49-0500 Heart rate 73 /min Will Cuadra MD [facility] 04-22-2024 10:49-0500 Respiratory rate 20 /min Will Cuadra MD [facility] 04-22-2024 10:49-0500 SaO2% (BldA) [Mass fraction] 98 % Will Cuadra MD [facility] 04-22-2024 10:49-0500 Systolic blood pressure 144 mm[Hg] Will Cuadra MD [facility] 04-19-2024 09:50-0500 Body height 147.3 cm Julianne Mici PA-C Work [facility]: [facility] 04-19-2024 09:50-0500 Body mass index (BMI) [Ratio] 20.9 kg/m2 Julianne Mici PA-C Work Phone: [facility] 04-19-2024 09:50-0500 Body weight 45.36 kg Julianne Mici PA-C [facility] 04-19-2024 09:50-0500 Diastolic blood pressure 84 mm[Hg] Julianne Mici PA-C Work Phone: [facility] 04-19-2024 09:50-0500 Heart rate 87 /min Julianne Mici PA-C Work Phone: [facility] 04-19-2024 09:50-0500 SaO2% (BldA) [Mass fraction] 95 % Julianne Mici PA-C Work Phone: [facility] 04-19-2024 09:50-0500 Systolic blood pressure 134 mm[Hg] Julianne Mici PA-C Work Phone: [facility] 04-13-2024 10:32-0500 Body height 148 cm Pfo 7 [facility] 04-13-2024 10:32-0500 Body mass index (BMI) [Ratio] 20.94 kg/m2 Pfo [address] [facility] 04-13-2024 10:32-0500 Body temperature 97.39 [degF] Pfo 7 [facility] 04-13-2024 10:32-0500 Body weight 45.87 kg Pfo [address] [facility] 04-13-2024 10:32-0500 Diastolic blood pressure 77 mm[Hg] Pfo [address] [facility] 04-13-2024 10:32-0500 Heart rate 71 /min Pfo [address] [facility] 04-13-2024 10:32-0500 Respiratory rate 18 /min Pfo 7 [facility] 04-13-2024 10:32-0500 SaO2% (BldA) [Mass fraction] 100 % Pfo [address] [facility] 04-13-2024 10:32-0500 Systolic blood pressure 135 mm[Hg] Pfo [address] [facility] 03-10-2024 14:14-0500 Body height 144.8 cm Boone Ewing MD Work Phone: [facility] 03-10-2024 14:14-0500 Body mass index (BMI) [Ratio] 22.07 kg/m2 Boone Ewing MD Work Phone: [facility] 03-10-2024 14:14-0500 Body temperature 97.11 [degF] Boone Ewing MD Work Phone: [facility] 03-10-2024 14:14-0500 Body weight 46.27 kg Boone Ewing MD Work Phone: [facility] 03-10-2024 14:14-0500 Diastolic blood pressure 60 mm[Hg] Boone Ewing MD Work Phone: [facility] 03-10-2024 14:14-0500 Heart rate 48 /min Boone Ewing MD Work Phone: [facility] 03-10-2024 14:14-0500 Respiratory rate 20 /min Boone Ewing MD Work Phone: [facility] 03-10-2024 14:14-0500 SaO2% (BldA) [Mass fraction] 97 % Boone Ewing MD Work Phone: [facility] 03-10-2024 14:14-0500 Systolic blood pressure 110 mm[Hg] Boone Ewing MD Work Phone: [facility] 03-02-2024 10:43-0500 Body height [address] 03-02-2024 10:43-0500 Body mass index (BMI) [Ratio] 21.16 kg/m2 [address] 03-02-2024 10:43-0500 Body temperature 98.1 [degF] [address] 03-02-2024 10:43-0500 Body weight 46.[address] 03-02-2024 10:43-0500 Diastolic blood pressure 71 mm[Hg] [address] 03-02-2024 10:43-0500 Heart rate 60 /min Pfo [address] [place] [address] 03-02-2024 10:43-0500 Respiratory rate 18 /min Pfo [address] [place] [address] 03-02-2024 10:43-0500 SaO2% (BldA) [Mass fraction] 99 % Pfo [address] [facility] 03-02-2024 10:43-0500 Systolic blood pressure 148 mm[Hg] Pfo [address] [facility] 02-10-2024 10:45-0500 Diastolic blood pressure 68 mm[Hg] Pfo [address] [facility] 02-10-2024 10:45-0500 Heart rate 60 /min Pfo [address] [facility] 02-10-2024 10:45-0500 Respiratory rate 16 /min Pfo 7 [facility] 02-10-2024 10:45-0500 SaO2% (BldA) [Mass fraction] 96 % Pfo [address] [facility] 02-10-2024 10:45-0500 Systolic blood pressure 154 mm[Hg] Pfo [address] [facility] 02-10-2024 10:02-0500 Body height 148 cm Pfo [address] [facility] 02-10-2024 10:02-0500 Body mass index (BMI) [Ratio] 21.12 kg/m2 Pfo [address] [facility] 02-10-2024 10:02-0500 Body temperature 97.9 [degF] Pfo 7 [facility] 02-10-2024 10:02-0500 Body weight 46.27 kg Pfo [address] [facility] 01-22-2024 10:12-0400 Body height 148 cm Will Cuadra MD Work Phone: [facility] 01-22-2024 10:12-0400 Body mass index (BMI) [Ratio] 21.74 kg/m2 Will Cuadra MD Work Phone: [facility] 01-22-2024 10:12-0400 Body temperature 98.4 [degF] Will Cuadra MD Work Phone: [facility] 01-22-2024 10:12-0400 Body weight 47.63 kg Will Cuadra MD Work Phone: [facility] 01-22-2024 10:12-0400 Diastolic blood pressure 77 mm[Hg] Will Cuadra MD Work Phone: [facility] 01-22-2024 10:12-0400 Heart rate 71 /min Will Cuadra MD Work Phone: [facility] 01-22-2024 10:12-0400 Respiratory rate 16 /min Will Cuadra MD Work Phone: [facility] 01-22-2024 10:12-0400 SaO2% (BldA) [Mass fraction] 99 % Will Cuadra MD Work Phone: [facility] 01-22-2024 10:12-0400 Systolic blood pressure 172 mm[Hg] Will Cuadra MD Work Phone: [facility] 01-20-2024 10:38-0400 Body height 148 cm Pfo [address] [facility] 01-20-2024 10:38-0400 Body mass index (BMI) [Ratio] 21.79 kg/m2 Pfo [address] [facility] 01-20-2024 10:38-0400 Body temperature 97.7 [degF] Pfo 7 [facility] 01-20-2024 10:38-0400 Body weight 47.72 kg Pfo [address] [facility] 01-20-2024 10:38-0400 Diastolic blood pressure 66 mm[Hg] Pfo [address] [facility] 01-20-2024 10:38-0400 Heart rate 61 /min Pfo [address] [facility] 01-20-2024 10:38-0400 Respiratory rate 16 /min Pfo [address] [facility] 01-20-2024 10:38-0400 SaO2% (BldA) [Mass fraction] 98 % Pfo [address] [facility] 01-20-2024 10:38-0400 Systolic blood pressure 164 mm[Hg] Pfo [address] [facility] 12-30-2023 10:46-0400 Body height 148 cm Pfo [address] [facility] 12-30-2023 10:46-0400 Body mass index (BMI) [Ratio] 21.54 kg/m2 Pfo [address] [facility] 12-30-2023 10:46-0400 Body temperature 97.59 [degF] Pfo 7 [facility] 12-30-2023 10:46-0400 Body weight 47.17 kg Pfo [address] [facility] 12-30-2023 10:46-0400 Diastolic blood pressure 66 mm[Hg] Pfo [address] [facility] 12-30-2023 10:46-0400 Heart rate 62 /min Pfo [address] [facility] 12-30-2023 10:46-0400 Respiratory rate 16 /min Pfo 7 [facility] 12-30-2023 10:46-0400 SaO2% (BldA) [Mass fraction] 98 % Pfo [address] [facility] 12-30-2023 10:46-0400 Systolic blood pressure 160 mm[Hg] Pfo [address] [facility] 12-09-2023 11:55-0400 Diastolic blood pressure 65 mm[Hg] Pfo [address] [facility] 12-09-2023 11:55-0400 Heart rate 56 /min Pfo [address] [facility] 12-09-2023 11:55-0400 Respiratory rate 16 /min Pfo 6 [facility] 12-09-2023 11:55-0400 SaO2% (BldA) [Mass fraction] 94 % Pfo [address] [facility] 12-09-2023 11:55-0400 Systolic blood pressure 151 mm[Hg] Pfo [address] [facility] 12-09-2023 10:44-0400 Body height 148 cm Pfo [address] [facility] 12-09-2023 10:44-0400 Body mass index (BMI) [Ratio] 21.95 kg/m2 Pfo [address] [facility] 12-09-2023 10:44-0400 Body temperature 97.9 [degF] Pfo 6 [facility] 12-09-2023 10:44-0400 Body weight 48.08 kg Pfo [address] [facility] 11-13-2023 11:23-0400 Body height 148 cm Will Cuadra MD Work Phone: [facility] 11-13-2023 11:23-0400 Body mass index (BMI) [Ratio] 21.95 kg/m2 Will Cuadra MD Work Phone: [facility] 11-13-2023 11:23-0400 Body temperature 98.49 [degF] Will Cuadra MD Work Phone: [facility] 11-13-2023 11:23-0400 Body weight 48.08 kg Will Cuadra MD Work Phone: [facility] 11-13-2023 11:23-0400 Diastolic blood pressure 76 mm[Hg] Will Cuadra MD Work Phone: [facility] 11-13-2023 11:23-0400 Heart rate 66 /min Will Cuadra MD Work Phone: [facility] 11-13-2023 11:23-0400 Respiratory rate 16 /min Will Cuadra MD Work Phone: [facility] 11-13-2023 11:23-0400 SaO2% (BldA) [Mass fraction] 98 % Will Cuadra MD Work Phone: [facility] 11-13-2023 11:23-0400 Systolic blood pressure 147 mm[Hg] Will Cuadra MD Work Phone: [facility] 04-10-2023 14:14-0500 Body height 152.4 cm Jan Reyes MD Work Phone: [facility] 04-10-2023 14:14-0500 Body mass index (BMI) [Ratio] 21.87 kg/m2 Jan Reyes MD Work Phone: [facility] 04-10-2023 14:14-0500 Body weight 50.8 kg [facility] 04-10-2023 14:14-0500 Diastolic blood pressure 80 mm[Hg] Jan Reyes MD Work Phone: [facility] 04-10-2023 14:14-0500 Heart rate 84 /min aJn Reyes MD Work Phone: [facility] 04-10-2023 14:14-0500 SaO2% (BldA) [Mass fraction] 91 % Jan Reyes MD Work Phone: [facility] 04-10-2023 14:14-0500 Systolic blood pressure 130 mm[Hg] Jan Reyes MD Work Phone: [facility] Encounters Encounter Date Encounter Type Care Provider Facility Start: 07-01-2024 End: 07-01-2024 Refill Boone Ewing MD Work Phone: [facility] Comment on above: Overactive bladder Start: 06-29-2024 ambulatory BOONE EWING [facility] Start: 06-29-2024 End: 06-29-2024 ambulatory Pfo Infusion Chair 3 Carey Pereira [facility] - [facility] On[facility] Comment on above: 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) (Primary Dx); Right breast cancer with T3 tumor, >5 cm in greatest dimension ([facility]-HCC) Start: 06-28-2024 End: 06-28-2024 ambulatory WILL [facility] Start: 06-22-2024 End: 06-22-2024 Orders Only Will Cuadra MD Work Phone: [facility] Oncology, A Department of [facility] Start: 06-09-2024 End: 06-09-2024 Bamboo flowsheet Boone Ewing MD Work Phone: [facility] Start: 06-09-2024 End: 06-09-2024 Bamboo flowsheet Boone Ewing MD Work Phone: [facility] Start: 06-09-2024 End: 06-09-2024 Office outpatient visit 15 minutes Boone Ewing MD Work Phone: [facility] Comment on above: Major depressive dis order, recurrent, moderate (CMS/HCC) (Primary Dx); Lumbar spondylosis; Malignant neoplasm of upper-outer quadrant of right breast in female, estrogen receptor positive (CMS/HCC); Rheumatoid arthritis involving multiple joints (CMS/HCC); Chronic heart failure with preserved ejection fraction (HFpEF) (CMS/HCC) Start: 06-09-2024 End: 06-09-2024 ambulatory BOONE EWING Not Available Start: 06-07-2024 End: 06-07-2024 ambulatory JAN Booker [facility] Start: 06-01-2024 End: 06-01-2024 [facility] on above: 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) (Primary Dx); Encounter for monitoring cardiotoxic drug therapy 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) (Primary Dx); Right breast cancer with T3 tumor, >5 cm in greatest dimension ([facility]-HCC) Start: 05-31-2024 End: 05-31-2024 ambulatory [facility] Start: 05-12-2024 End: 05-12-2024 Clinisync Result Encounter Boone Ewing MD Work Phone: [facility] Unsolicited Start: 05-12-2024 End: 05-12-2024 Clinisync Result Encounter Boone Ewing MD Work Phone: [facility] Unsolicited Start: 05-09-2024 End: 05-09-2024 ambulatory BOONE EWING Not Available Start: 05-09-2024 End: 05-09-2024 Office outpatient visit 25 minutes Boone Ewing MD Work Phone: [facility] Comment on above: 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 (Primary Dx); Dysuria; Major depressive disorder, recurrent, moderate ([facility]/HCC) Start: 05-04-2024 End: 05-04-2024 ambulatory Pfo Infusion Chair 7 Carey Hernandez [facility] - Medical Oncology Comment on above: HER2-positive carcin tony of right breast ([facility]-HCC) (Primary Dx); Right breast cancer with T3 tumor, >5 cm in greatest dimension ([facility]-HCC) Start: 05-03-2024 End: 05-03-2024 ambulatory [facility] Start: 04-22-2024 End: 04-22-2024 Office outpatient visit 40 minutes Will Cuadra MD Work Phone: Carey Hernandez [facility] - Medical Oncology Comment on above: 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) (Primary Dx); Right breast cancer with T3 tumor, >5 cm in greatest dimension (CMS-HCC) Start: 04-22-2024 End: 04-22-2024 [facility] Comment on above: 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) (Primary Dx); Right breast cancer with T3 tumor, >5 cm in greatest dimension ([facility]-HCC) Start: 04-19-2024 End: 04-19-2024 [facility] Work Phone: [facility] Comment on above: ASCVD (arteriosclero tic cardiovascular disease) (Primary Dx); Right breast cancer with T3 tumor, >5 cm in greatest dimension ([facility]-HCC) Start: 04-19-2024 End: 04-19-2024 ambulatory [facility] Start: 04-18-2024 End: 04-18-2024 Telephone encounter Kalyani Cabrales CMA [facility] Start: 04-13-2024 End: 04-13-2024 ambulatory Pfo Infusion Chair 7 Carey Hernandez [facility] - Medical Oncology Comment on above: HER2-positive carcin tony of right breast ([facility]-HCC) (Primary Dx); Right breast cancer with T3 tumor, >5 cm in greatest dimension ([facility]-HCC) Start: 04-12-2024 End: 04-12-2024 ambulatory [facility] Start: 03-23-2024 End: 03-23-2024 ambulatory BOONE EWING [facility] Start: 03-22-2024 End: 03-22-2024 ambulatory [facility] Start: 03-16-2024 End: 03-16-2024 ambulatory Jan Solares Facility:[facility] Start: 03-10-2024 End: 03-10-2024 ambulatory BOONE EWING Not Available Start: 03-10-2024 End: 03-10-2024 Bamboo flowsheet Boone [...] ambulatory Pfo Infusion Chair 7 Carey Hernandez [facility] - Medical Oncology Comment on above: 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) (Primary Dx); Right breast cancer with T3 tumor, >5 cm in greatest dimension ([facility]-HCC) Start: 03-01-2024 End: 03-01-2024 ambulatory WILL CUADRA [facility] Start: 02-24-2024 End: 02-24-2024 Orders Only Will Cuadra MD Work Phone: [facility] Start: 02-11-2024 End: 02-11-2024 Anuel Brady DO Work Phone: [facility] Comment on above: Age-related osteopor osis without current pathological fracture (CMS/HCC) Start: 02-10-2024 End: 02-10-2024 ambulatory Pfo Infusion Chair 7 Carey Pereira [facility] Medical Oncology Comment on above: 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) (Primary Dx); Right breast cancer with T3 tumor, >5 cm in greatest dimension ([facility]-HCC) Start: 02-09-2024 End: 02-09-2024 ambulatory WILL Akins [facility] Start: 01-22-2024 End: 01-22-2024 Documentation procedure Nia Bonner [facility] - Medical Oncology Start: 01-22-2024 End: 01-22-2024 Office outpatient visit 40 minutes Will Cuadra MD Work Phone: Carey Hernandez [facility] Medical Oncology Comment on above: 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) (Primary Dx); Right breast cancer with T3 tumor, >5 cm in greatest dimension (CMS-HCC) Start: 01-22-2024 End: 01-22-2024 ambulatory WILL CUADRA [facility] Start: 01-20-2024 End: 01-20-2024 ambulatory Pfo Infusion Chair 7 Carey Hernandez [facility] Medical Oncology Comment on above: 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) (Primary Dx); Encounter for monitoring cardiotoxic drug therapy; Right breast cancer with T3 tumor, >5 cm in greatest dimension (CMS-HCC) Start: 01-19-2024 End: 01-19-2024 ambulatory OBANDO Mable KHALIF [facility] Start: 12-30-2023 End: 12-30-2023 ambulatory Pfo Infusion Chair 7 Carey Hernandez [facility] Medical Oncology Comment on above: 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) (Primary Dx); Right breast cancer with T3 tumor, >5 cm in greatest dimension (CMS-HCC) Start: 12-29-2023 End: 12-29-2023 ambulatory BOONE CRISTIANLiza [facility] Start: 12-23-2023 End: 12-23-2023 Orders Only Will Cuadra MD Work Phone: [facility] Start: 12-11-2023 End: 12-11-2023 ambulatory JAN SOLARES [facility] Start: 12-09-2023 End: 12-09-2023 ambulatory Pfo Infusion Chair 6 Carey Hernandez [facility] - Medical Oncology Comment on above: 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) (Primary Dx); Right breast cancer with T3 tumor, >5 cm in greatest dimension ([facility]-HCC) Start: 12-02-2023 End: 12-02-2023 Orders Only Nia hernandez [facility] Oncology Start: 12-01-2023 End: 12-01-2023 ambulatory WILL Akins [facility] Start: 11-19-2023 End: 11-19-2023 Orders Only iNa Palm [facility] Oncology Comment on above: Right breast cancer with T3 tumor, >5 cm in greatest dimension ([facility]-HCC) (Primary Dx); HER2-positive carcinoma of right breast ([facility]-HCC); Encounter for monitoring cardiotoxic drug therapy Start: 11-18-2023 End: 11-18-2023 Orders Only Nia Palm r [facility] Oncology Comment on above: Right breast cancer with T3 tumor, >5 cm in greatest dimension ([facility]-HCC) (Primary Dx) Start: 11-13-2023 End: 11-13-2023 [facility] Start: 11-13-2023 End: 11-13-2023 Office outpatient visit 40 minutes Will Cuadra MD Work Phone: Carey Hernandez [facility] Oncology Comment on above: Right breast cancer with T3 tumor, >5 cm in greatest dimension ([facility]-HCC) (Primary Dx) Start: 11-13-2023 End: 11-13-2023 ambulatory WILL Akins [facility] Start: 11-12-2023 End: 11-12-2023 Chart abstracting Will Cuadra MD Work Phone: Carey Hernandez [facility] Oncology Start: 11-11-2023 End: 11-11-2023 ambulatory BOONE EWING Not Available Start: 11-03-2023 End: 12-15-2023 External Result Encounter Boone Ewing MD Work Phone: [facility] Unsolicited Start: 11-03-2023 End: 12-15-2023 External Result Encounter Boone Ewing MD Work Phone: [facility] External [facility] Unsolicited Start: 11-03-2023 End: 11-03-2023 ambulatory Boone Ewing [facility] Work Phone: Start: 11-03-2023 End: 11-03-2023 Departed Referred MD Boone Ewing Work Phone: [facility]-LAB [facility] Start: 10-28-2023 End: 10-28-2023 ambulatory BOONE EWING Not Available Start: 10-02-2023 End: 10-02-2023 ambulatory JAN GOMESABINGDONDylan [facility] Start: 09-22-2023 End: 09-22-2023 ambulatory BOONE EWING Not Available Start: 07-29-2023 End: 07-29-2023 ambulatory BOONE EWING Not Available Start: 07-23-2023 End: 07-23-2023 ambulatory ASHLEY Not Available Start: 07-09-2023 End: 07-09-2023 [facility] Start: 04-10-2023 End: 04-10-2023 Office outpatient visit 25 minutes Jan Reyes MD Work Phone: [facility] Comment on above: 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); Dyslipidemia; Primary hypertension Start: 04-09-2023 Telephone encounter Toyin castano [facility] Start: 03-25-2022 End: 03-25-[address] BOONE EWING Facility:[facility] Start: 02-12-2022 End: 02-12-2022 ambulatory DO Carin Brady Work Phone: [facility] Work Phone: Start: 02-12-2022 End: 02-12-2022 Patient encounter procedure DO Carin Brady Work Phone: [facility]-Lab [address] Start: 02-10-2022 End: 02-10-[address] BOONE EWING Facility:[facility] Start: 01-08-2022 End: 01-09-[address] JAN SOALRES Facility:[facility] Start: 12-12-2021 End: 12-12-[address] BOONE EWING Facility:[facility] Start: 12-10-2021 End: 01-04-[address] JAN SOLARES Facility:[facility] Start: 12-03-2021 End: 12-03-2021 Patient encounter procedure DO Carin Brady Work Phone: [facility]-XRay [address] Start: 11-13-2021 End: 12-04-[address] JAN SOLRAES Facility:[facility] Start: 10-28-2021 End: 11-01-[address] JAN SOLARES Facility:[facility] Start: 10-09-2021 End: 10-09-2021 Patient encounter procedure DO Carinkrystian Brady Work Phone: [facility] [address] Procedures Date Procedure Procedure Detail Performing Clinician Start: 05-12-2024 XR LUMBAR SPINE 2 OR 3V Boone Ewing MD Work Phone: Start: 05-09-2024 Urnls dip stick/tablet rgnt non-auto w/o micrscp Boone Ewing MD Work Phone: Start: 04-19-2024 Ecg routine ecg w/least 12 lds w/i&r Julianne Dotson PA-C Work Phone: Start: 04-19-2024 Follow-up visit Follow-up JULIANNE DOTSON Start: 12-30-2023 Chemotherapy Chemotherapy JAN SOLARES Start: 11-03-2023 Level i surg pathology gross examination only Not In System Ref Prov Start: 11-03-2023 PATHOLOGY REQUEST FOR LAB RAY Boone Ewing MD Work Phone: Start: 04-10-2023 Ecg routine ecg w/least 12 lds w/i&r Jan Reyes MD Work Phone: Start: 12-03-2021 Plain chest X-ray DO Carin Jose Antonio Work Phone: Start: 01-07-2021 Adult depression screening assessment Toyin Bass CMA Start: 08-30-2020 H/O: surgery S/P nasal septoplasty Toyin Bonner MA Start: 11-26-2018 History of coronary artery bypass grafting History of coronary artery bypass graft x 2 Toyin Bass CMA History of coronary artery bypass grafting History of coronary artery bypass graft x 2 Jan Reyes MD Work Phone: Plan of Treatment Date Care Activity Detail Author Start: 06-29-2025 Tobacco Screening Tobacco Screening [facility] Start: 04-22-2025 Tobacco Screening Tobacco Screening [facility] Start: 03-23-2025 Fall Risk Screening Fall Risk Screening [facility] Start: 01-21-2025 Adult BMI Screening Adult BMI Screening [facility] Start: 01-21-2025 Tobacco Screening Tobacco Screening [facility] Start: 01-19-2025 Fall Risk Screening Fall Risk Screening [facility] Start: 12-29-2024 Adult BMI Screening Adult BMI Screening [facility] Start: 12-29-2024 Tobacco Screening Tobacco Screening [facility] Start: 12-12-2024 End: 12-12-2024 Patient encounter procedure 12/12/2024 10:45 AM EDT Office Visit [facility] [address] [place] [address] Boone Ewing MD [address] [place] [id number] [facility] Start: 12-08-2024 Adult BMI Screening Adult BMI Screening [facility] Start: 12-08-2024 Tobacco Screening Tobacco Screening [facility] Start: 11-12-2024 Adult BMI Screening [facility] [facility] Start: 11-12-2024 Tobacco Screening Tobacco Screening [facility] Start: 09-14-2024 End: 09-14-2024 Patient encounter procedure 09/14/2024 1:00 PM EDT Office Visit [facility] [address] [place] [address] Boone Ewing MD [address] [place] [phone] [facility] Start: 07-27-2024 End: 07-27-2024 ambulatory 07/27/2024 10:30 AM EDT Infusion Carey Pereira Rawlins [facility] - Medical Oncology [address] [place] [phone] Carey Pereira Rawlins [facility] Medical Oncology Start: 07-26-2024 End: 07-26-2024 Patient encounter procedure 07/26/2024 10:00 AM EDT Appointment [facility] [address] [place] [address] [facility] Start: 07-22-2024 End: 07-22-2024 Patient encounter procedure 07/22/2024 11:00 AM EDT Office Visit Carey Hernandez [facility] Medical Oncology [address] [place] [address], [place] [phone] Will Cuadra MD [address] [place] [address] Carey Hernandez [facility] Medical Oncology Start: 07-11-2024 End: 06-01-2025 Echo complete W/Strain Imaging Echo complete W/Strain Imaging Echocardiography Routine HER2-positive carcinoma of right breast ([facility]-HCC) Encounter for monitoring cardiotoxic drug therapy Expected: 07/11/2024, Expires: 06/01/2025 Jose A Work Phone: Comment on above: Expected: 07/11/2024, Expires: Start: 07-05-2024 End: 07-05-2024 Patient encounter procedure 07/05/2024 1:00 PM EDT Appointment [facility] [address] [place] [phone] Will Cuadra MD [address] [place] [address] [facility] Start: 06-29-2024 End: 06-29-2024 ambulatory 06/29/2024 10:30 AM EDT Infusion Carey Hernandez [facility] - Medical Oncology [address] [place] [phone] Carey Hernandez [facility] - Medical Oncology Start: 06-28-2024 End: 06-28-2024 Patient encounter procedure 06/28/2024 10:20 AM EDT Appointment [facility] [address] [place] [address] [facility] Start: 06-20-2024 End: 04-22-2025 US Breast - right limited Ultrasound breast limited right Imaging Routine HER2-positive carcinoma of right breast (CMS-HCC) Right breast cancer with T3 tumor, >5 cm in greatest dimension ([facility]-HCC) Expected: 06/20/2024, Expires: 04/22/2025 [facility] Work Phone: Comment on above: Expected: 06/20/2024, Expires: Start: 06-09-2024 End: 06-09-2024 [facility] Comment on above: Arrived Start: 06-01-2024 End: 06-01-2024 ambulatory 06/01/2024 11:00 AM EST Infusion Carey Hernandez [facility] - Medical Oncology [address] [place] [phone] Carey Hernandez [facility] - Medical Oncology Start: 05-09-2024 End: 05-09-2025 URINARY TRACT INFECTION (HTRX) URINARY TRACT INFECTION (HTRX) Lab Routine Dysuria Expected: 05/09/2024 (Approximate), Expires: 05/09/2025 [facility] Comment on above: Expected: 05/09/2024 (Approximate), Expi res: 05/09/2025 Start: 05-09-2024 End: 05-09-2025 XR Lumbar spine 2 or 3 Views XR lumbar spine 2 or 3 views Imaging Routine Degeneration of intervertebral disc of lumbar region with discogenic back pain and lower extremity pain Expected: 05/09/2024, Expires: 05/09/2025 [facility] Work Phone: Comment on above: Expected: 05/09/2024, Expires: Start: 05-04-2024 End: 05-04-2024 ambulatory 05/04/2024 11:00 AM EST Infusion Carey Hernandez [facility] - Medical Oncology [address] [place] [phone] Carey Hernandez [facility] - Medical Oncology Start: 05-03-2024 End: 05-03-2024 Patient encounter procedure 05/03/2024 11:00 AM EST Appointment [facility] [address] [place] [phone] [facility] Start: 04-22-2024 End: 04-22-2024 Patient encounter procedure 04/22/2024 10:30 AM EST Office Visit Careyscooter Hernandez [facility] - Medical Oncology [address] [place] [phone] [place] [address] [place] [address] Carey Hernandez [facility] Medical Oncology Start: 04-19-2024 End: 04-19-2024 Patient encounter procedure 04/19/2024 10:00 AM EST Office Visit [facility] [address] [address] Julianne Dotson PA-C [address] [place] [address] [facility] Start: 04-15-2024 COVID-19 Vaccine ( season) COVID-19 Vaccine ( season) [facility] Start: 04-12-2024 End: 04-12-2024 Patient encounter procedure 04/12/2024 1:00 PM EST Appointment [facility] [address] [facility] [place] [address] Will Cuadra MD [address] [place] [address] [facility] Start: 04-10-2024 Adult BMI Screening Adult BMI Screening [facility] Start: 04-10-2024 Tobacco Screening Tobacco Screening [facility] Start: 03-28-2024 End: 01-21-2025 US Breast - right limited Ultrasound breast limited right Imaging Routine HER2-positive carcinoma of right breast ([facility]-HCC) Right breast cancer with T3 tumor, >5 cm in greatest dimension (CMS-HCC) Expected: 03/28/2024, Expires: 01/21/2025 [facility] Work Phone: Comment on above: Expected: 03/28/2024, Expires: Start: 03-23-2024 End: 03-23-2024 ambulatory 03/23/2024 11:00 AM EST Infusion Carey L [facility] - Medical Oncology [address] [place] [phone] [facility] - Medical Oncology Start: 03-22-2024 End: 03-22-2024 Patient encounter procedure 03/22/2024 9:30 AM EST Appointment [facility] [address] [place] [phone] [facility] Start: 03-14-2024 End: 03-14-2024 Patient encounter procedure 03/14/2024 2:15 PM EST [facility] [address] [place] [phone] Boone Ewing MD [address] [place] [address] [facility] Start: 03-10-2024 End: 03-10-2024 Patient encounter procedure 03/10/2024 2:00 PM EST Office Visit [facility] [address] [place] [address] Boone Ewing MD [address] [place] [address] [facility] Start: 03-07-2024 End: 01-19-2025 Echo complete W/Strain Imaging Echo complete W/Strain Imaging Echocardiography Routine HER2-positive carcinoma of right breast (CMS-HCC) Encounter for monitoring cardiotoxic drug therapy Expected: 03/07/2024, Expires: 01/19/2025 [facility] Work Phone: Comment on above: Expected: 03/07/2024, Expires: Start: 03-02-2024 End: 03-02-2024 ambulatory 03/02/2024 10:30 AM EST Infusion Carey Hernandez [facility] - Medical Oncology [address] [place] [address] Carey Pereira Rawlins [facility] - Medical Oncology Start: 03-01-2024 End: 03-01-2024 Patient encounter procedure 03/01/2024 10:30 AM EST Appointment [facility] [address] [place] [address] [facility] Start: 02-10-2024 End: 02-10-2024 ambulatory 02/10/2024 10:00 AM EST Infusion Carey Hernandez [facility] - Medical Oncology [address] [place] [address] Carey L Rawlins [facility] - Medical Oncology Start: 02-09-2024 End: 02-09-2024 Patient encounter procedure 02/09/2024 10:00 AM EST Appointment [facility] [address] [place] [address] [facility] Start: 01-22-2024 End: 01-22-2024 Patient encounter procedure 01/22/2024 10:15 AM EDT Office Visit Carey Hernandez [facility] - Medical Oncology [address] [place] [address] Will Cuadra MD [address] [place] [address] Carey Hernandez [facility] - Medical Oncology Start: 01-20-2024 End: 01-20-2024 ambulatory 01/20/2024 10:30 AM EDT Infusion Carey Hernandez [facility] - Medical Oncology [address] [place] [address] Carey Hernandez [facility] - [facility] Oncology Start: 01-19-2024 End: 01-19-2024 Patient encounter procedure 01/19/2024 10:00 AM EDT Appointment [facility] [address] [place] [address] [facility] Start: 12-30-2023 End: 12-30-2023 ambulatory 12/30/2023 10:30 AM EDT Infusion Carey Hernandez [facility] - Medical Oncology [address] [place] [phone] Carey Hernandez [facility] - Medical Oncology Start: 12-29-2023 End: 12-29-2023 Patient encounter procedure 12/29/2023 10:30 AM EDT Appointment [facility] [address] [place] [address] [facility] Start: 12-11-2023 End: 12-11-2023 Patient encounter procedure 12/11/2023 8:30 AM EDT Appointment [facility] [address] [place] [address] Will Cuadra MD [address] [place] [address] [facility] Start: 12-09-2023 End: 12-09-2023 ambulatory 12/09/2023 10:30 AM EDT Infusion Careyscooter Hernandez [facility] - Medical Oncology [address] [place] [phone] Carey L Rawlins [facility] - Medical Oncology Start: 12-06-2023 COVID-19 Vaccine () COVID-19 Vaccine () [facility] Start: 12-06-2023 COVID-19 Vaccine () COVID-19 Vaccine () [facility] Start: 12-06-2023 Influenza vaccination [facility] Start: 11-19-2023 End: 11-18-2024 Echo complete W/Strain Imaging Echo complete W/Strain Imaging Echocardiography Routine Right breast cancer with T3 tumor, >5 cm in greatest dimension (CMS-HCC) HER2-positive carcinoma of right breast (CMS-HCC) Encounter for monitoring cardiotoxic drug therapy Expected: 11/19/2023, Expires: 11/18/2024 [facility] Work Phone: Comment on above: Expected: 11/19/2023, Expires: Start: 11-13-2023 End: 11-13-2023 Patient encounter procedure 11/13/2023 11:30 AM EDT Office Visit Carey L David [facility] - Medical Oncology [address] [place] [phone] Will Cuadra MD [address] [place] [address] [address] [place], [place] [phone] Carey Hernandez [facility] - [facility] Oncology Start: 11-03-2023 [facility] Start: 08-08-2023 Adult BMI Screening Adult BMI Screening [facility] Start: 05-31-2023 COVID-19 Vaccine ( season) COVID-19 Vaccine () [facility] Start: 04-10-2023 End: 04-10-2023 Patient encounter procedure 04/10/2023 2:30 PM EST Office Visit [facility] [address] [place] [address] Jan Reyes MD [address] [place] [address] [facility] Start: 03-25-2023 COVID-19 Vaccine () COVID-19 Vaccine () [facility] Start: 12-23-2022 Tobacco Screening Tobacco Screening [facility] Start: 07-08-2022 Medicare Annual Wellness (AWV) Medicare Annual Wellness (AWV) [facility] Start: 01-07-2022 Depression Screening Depression Screening [facility] Start: 02-17-2020 Administration of varicella zoster vaccine [facility] Start: 05-01-2012 Pneumococcal Vaccine: 65+ Years (2 of 2 - PCV) Pneumococcal Vaccine: 65+ Years (2 of 2 - PCV) [facility] Start: 2005 Fall Risk Screening Fall Risk Screening [facility] Start: 1959 DTaP,Tdap and Td Vaccines (1 - Tdap) DTaP,Tdap and Td Vaccines (1 - Tdap) [facility] Start: 1952 Depression Screening Depression Screening [facility] Start: 1940 Medicare Annual Wellness Visit Medicare Annual Wellness Visit [facility] End: 11-18-2024 CBC W Auto Differential panel - Blood CBC auto differential Lab Routine Right breast cancer with T3 tumor, >5 cm in greatest dimension (CMS-HCC) HER2-positive carcinoma of right breast (CMS-HCC) Encounter for monitoring cardiotoxic drug therapy every 3 weeks for 50 Occurrences starting 11/19/2023 until 11/18/[address] [facility] Comment on above: every 3 weeks for 50 Occurrences startin g 11/19/2023 until 11/18/2024 End: 11-18-2024 Comprehensive metabolic 2000 panel - Serum or Plasma Comprehensive metabolic panel Lab Routine Right breast cancer with T3 tumor, >5 cm in greatest dimension (CMS-HCC) HER2-positive carcinoma of right breast ([facility]-HCC) Encounter for monitoring cardiotoxic drug therapy every 3 weeks for 50 Occurrences starting 11/19/2023 until 11/18/[address] [facility] Comment on above: every 3 weeks for 50 Occurrences startin g 11/19/2023 until 11/18/2024 Hepatitis B core antibody measurement [facility] Work Phone: Immunizations Immunization Date Immunization Notes Care Provider [facility] 01-13-2023 influenza virus vaccine, unspecified formulation Will Cuadra MD Work Phone: [facility] 05-24-2020 COVID-19, mRNA, LNP- S, PF, 100mcg/0.5mL Dose [facility] 04-27-2020 COVID-19, mRNA, LNP- S, PF, 100mcg/0.5mL Dose [facility] 12-23-2019 zoster vaccine, unspecified formulation [facility] Payers Date Payer Category Payer Self-pay [id number] 2022 Private Health Insurance [employer] [id number] 2011 Managed Care Other (unspecified) [employer] [id number] [id number] 2011 Unknown [id number] 2005 Medicare [id number]. [id number]. [id number] 1959 Medicare [id number] 1959 Unknown [id number] 1940 Unknown [id number] 2.16.840.1.245326.3.579. 2.593 1940 Unknown [id number] 2.16.840.1.606092.3.579. 2.593 1940 Unknown [id number] 2.16.840.1.765748.3.579. 2.593 1940 Unknown [id number] 2.16.840.1.380734.3.579. 2.593 1940 Unknown [id number] 2.16.840.1.468058.3.579. 2.593 1940 Unknown [id number] 2.16.840.1.364925.3.579. 2.593 1940 Unknown [id number] 2.16.840.1.584329.3.579. 2.593 1940 Unknown [id number] 2.16.840.1.304494.3.579. 2.1259 1940 Unknown [id number] 2.16.840.1.594362.3.579. 2.1259 1940 Unknown [id number] 2.16.840.1.467493.3.579. 2.1258 1940 Unknown [id number] 2.16.840.1.592865.3.579. 2.1258 1940 Unknown [id number] 2.16.840.1.000573.3.579. 2.1258 1940 Unknown [id number] 2.16.840.1.875711.3.579. 2.1258 1940 Unknown [id number] 2.16.840.1.021300.3.579. 2.1258 1940 Unknown [id number] 2.16.840.1.184757.3.579. 2.1258 1940 Unknown [id number] 2.16.840.1.635568.3.579. 2.1258 1940 Unknown [id number] 2.16.840.1.427099.3.579. 2.1285 1940 Unknown [id number] 2.16.840.1.001801.3.579. 2.1285 1940 Unknown [id number] 2.16.840.1.594552.3.579. 2.1285 1940 Unknown [id number] 2.16.840.1.238718.3.579. 2.1285 1940 Unknown [id number] 2.16.840.1.908842.3.579. 2.128 1940 Unknown [id number] 2.16.840.1.739080.3.579. 2.1285 1940 Unknown [id number] 2.16.840.1.137965.3.579. 2.128 1940 Unknown [id number] 2.16.840.1.216158.3.579. 2.1285 1940 Unknown [id number] 2.16.840.1.755400.3.579. 2.1285 1940 Unknown [id number] 2.16.840.1.645899.3.579. 2.1285 1940 Unknown [id number] 2.16.840.1.272171.3.579. 2.1285 1940 Unknown [id number] 2.16.840.1.414207.3.579. 2.1285 1940 Unknown [id number] 2.16.840.1.838053.3.579. 2.1285 1940 Unknown [id number] 2.16.840.1.050128.3.579. 2.1285 1940 Unknown [id number] 2.16.840.1.664500.3.579. 2.1285 1940 Unknown [id number] 2.16.840.1.453466.3.579. 2.1285 1940 Unknown [id number] 2.16.840.1.033663.3.579. 2.1285 1940 Unknown [id number] 2.16.840.1.568158.3.579. 2.1285 1940 Unknown [id number] 2.16.840.1.640841.3.579. 2.1285 1940 Unknown [id number] 2.16.840.1.143512.3.579. 2.1285 1940 Unknown [id number] 2.16.840.1.164841.3.579. 2.1285 1940 Unknown [id number] 2.16.840.1.191119.3.579. 2.1285 1940 Unknown [id number] 2.16.840.1.617961.3.579. 2.1285 1940 Unknown [id number] 2.16.840.1.404159.3.579. 2.1286 1940 Unknown [id number] 2.16.840.1.823617.3.579. 2.1286 1940 Unknown [id number] 2.16.840.1.921707.3.579. 2.1286 1940 Unknown [id number] 2.16.840.1.022892.3.579. 2.1286 1940 Unknown [id number] 2.16.840.1.500225.3.579. 2.1286 1940 Unknown [id number] 2.16.840.1.834544.3.579. 2.1286 1940 Unknown [id number] 2.16.840.1.840540.3.579. 2.1286 1940 Unknown [id number] 2.16.840.1.503248.3.579. 2.1286 1940 Unknown [id number] 2.16.840.1.399865.3.579. 2.1286 1940 Unknown [id number] 2.16.840.1.311506.3.579. 2.1286 1940 Unknown [id number] 2.16.840.1.691043.3.579. 2.1286 1940 Unknown [id number] 2.16.840.1.640974.3.579. 2.1286 Unknown [id number] 2.16.840.1.974436.3.579. 2.531 Unknown [id number] 2.16.840.1.165878.3.579. 2.531 Social History Date Type Detail Facility [facility] Work Phone: Start: 1940 Sex Assigned At Female F [facility] Start: 04-10-2023 End: 06-03-2023 Tobacco smoking status NHIS Never smoked tobacco [facility] Start: 04-10-2023 End: 06-03-2023 Tobacco use and exposure Smokeless tobacco non-user [facility] Start: 11-18-2023 End: 06-09-2024 Alcoholic beverage intake Lifetime non-drinker (finding) [facility] Start: 07-23-2023 End: 11-18-2023 History of Social function [facility] Start: 07-23-2023 End: 11-18-2023 Tobacco use panel [facility] Start: 04-10-2023 Alcohol Comment caffeine intak e : 1-2 cups per day [facility] Start: 1940 Sex assigned at Not on file N [facility] Start: 03-23-2024 End: 06-29-2024 Alcoholic beverage intake Current drinker of alcohol (finding) [facility] Frequency of Communication with Friends and Family More than three times a week [facility] Start: 11-25-2018 Education 12 [facility] Start: 10-21-2019 Alcohol Comment rarely [facility] Start: 11-09-2014 Sex Female (finding) [facility] NEGATED: Highlighted rowStart: NINF History of tobacco use Passive smoker [facility] Clinical Notes 04-09-2023 to 06-29-2024 Alvarez Cullen RN - 06/29/2024 10:30 AM Alisson Ewing MD - 06/09/2024 10:59 AM Felisha Ewing MD - 06/09/2024 10:58 AM Felisha Ewing MD - 06/09/2024 10:30 AM ESTPatient Instructions Note Date & Type Note Facility 06-29-2024 History of Presen t illness Narrative Patient is here for phesgo injection. She is tolerating it okay. Reports fatigue, and diarrhea a few days after injection and immodium is effective. Denies diarrhea today and has not had any for a few days. Phesgo injection given SQ to right thigh over 5 minutes. Pt remained on unit for 15 minute observation and denies any complaints. Treatment calendar provided and v/u of upcoming appt's/labs. Pt scheduled for echo beginning of July. Dc'd in stable condition. documented in this encounter [facility] 06-09-2024 History of Presen t illness Narrative Associated Problem(s): Major depressive disorder, recurrent, moderate (CMS/HCC) Mood much improved and continue prozac. Associated Problem(s): Lumbar spondylosis Pain improved and use ultram PRN. Images from the original note were not included. Subjective Patient ID: Angelika Goncalves is a 84 y.o. female who presents for Follow-up. Follow up depression and back pain. Patient much improved today. Started prozac last visit and depression much better. Not down or sad and feels happier. Interacting better with others and family has noticed an improvement in mood. Tolerating medication without side effects. Back pain improved after prednisone. X-ray showed moderate arthritis changes. Mild pain in low back and across top hips. No radiation into gluteal region or legs. Using ultram PRN and helps. Review of Systems Respiratory: Negative for cough, [...] Assessment/Plan Problem List Items Addressed This Visit Lumbar spondylosis Pain improved and use ultram PRN. Major depressive disorder, recurrent, moderate (CMS/HCC) - Primary Mood much improved and continue prozac. documented in this encounter [facility] 06-01-2024 History of Presen t illness Narrative Patient is here for phesgo injection. She is tolerating it okay. Reports intermittent nausea which takes anti emetics. Diarrhea remains the same and immodium is effective. ( Not more than 4 stools per day). Phesgo injection given SQ to right thigh over 5 minutes. Pt remained on unit for 15 minute observation and denies any complaints. Treatment calendar, copy of labs, and echo order provided. Due in July. Dc'd in stable condition with daughter. documented in this encounter [facility] 05-09-2024 History of Presen t illness Narrative Images from the original note were not included. Subjective Patient ID: Angelika Goncalves is a 84 y.o. female who presents for Follow-up (uti). Concerned of possible UTI. C/o pain and burning with urination since yesterday. Increased frequency and urgency. Dark in color but no odor. Afebrile and no nausea. Today pain with urination has resolved but went several times during the night. C/o low back pain for weeks and getting worse. Pain in low back and across top hips. No radiation into gluteal region or down legs. Pain worse with walking and standing. Patient fell March 06 and pain gradually getting worse since. OTC not helping. C/o worsening mood. Down, sad, and no motivation. Crying all the time. with worsening dementia and considering AL. Nervous and worry all the time. Stressed out and overwhelmed. Thought racing and hard to clear mind. On medication as a teen but not for years. Review of Systems Respiratory: Negative for cough, [...] Assessment/Plan Problem List Items Addressed This Visit DDD (degenerative disc disease), lumbar - Primary Relevant Medications predniSONE (Deltasone) 50 MG tablet traMADol (Ultram) 50 MG tablet Other Relevant Orders XR lumbar spine 2 or 3 views Dysuria Relevant Orders POCT Urinalysis dipstick (Completed) URINARY TRACT INFECTION (HTRX) Major depressive disorder, recurrent, moderate (CMS/HCC) Relevant Medications FLUoxetine (PROzac) 10 MG capsule documented in this encounter [facility] 05-04-2024 History of Presen t illness Narrative Patient is here for phesgo injection. She is tolerating it okay. Has got some slight nausea. She gets diarrhea and immodium is effective. ( Not more than 4 stools per day). Phesgo injection given SQ to thigh over 5 minutes. Pt remained on unit for 15 minute observation and denies any complaints. Treatment calendar provided and v/u of upcoming appt's, labs, and dc instruction. Dc'd in stable condition. documented in this encounter [facility] 04-22-2024 History of Presen t illness Narrative The patient is here for follow up of Phesgo treatment After next tx 05/04, change tx to every 4 weeks. Right side breast ultrasound end of 06/2024 (print out orders) F/u in 07/2024. Calendar, order, and instructions given to patient and daughter, documented in this encounter [facility] 04-22-2024 History of Presen t illness Narrative Images from the original note were not included. [facility] 04/22/24 Angelika Goncalves is a 84 y.o. year old female seen today in the oncology clinic. Chief Complaint Patient presents with Follow-up History of Present Illness: Mrs. Goncalves is a 84 y.o. female who recently underwent open-heart surgery [...] 6.5 x 5.4 x 2.2 cm. She has been on phesgo for 3 months since March 2004. She does have some diarrhea and Imodium helped. She only takes 1 tablet as needed. Lost few lb since last visit. Denies any blood in the stool, no tarry stool. No shortness of breath during exertion. Denies any significant bone pains she is wheelchair-bound due to severe arthritis. She lives with her at home. She is accompanied by her daughter. 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 CABGX2/LIMAX1/SVGX1/EVH LEFT UPPER LEG/MINA N/A 11/03/2018 Performed by Kel Sherman MD at [facility] Cardiac catheterization N/A 11/01/2018 Performed by Kalin Hamm MD at [facility] C[facility]ATH LABS Coronary angiogram and left ventricular gram/pressure N/A 11/01/2018 Performed by Kalin Hamm MD at [facility] CARDIAC CATH LABS HYSTERECTOMY 1986 complete INJECTION MEDIAL BRANCH NERVE BLOCK: right C34 45 56mbb Right 09/07/2017 Performed by Kel Serna MD at [facility] INJECTION MEDIAL BRANCH NERVE BLOCK: right C34 45 56mbb Right 07/31/2017 Performed by Kel Serna MD at [facility] RADIO FREQUENCY ABLATION: right C34 45 56 Right 06/21/2018 Performed by Kel Serna MD at [facility] RADIOFREQUENCY ABLATION SPINAL: right C34 45 56rfa Right 09/25/2017 Performed by Kel Serna MD at [facility] RADIOFREQUENCY TURBINATE NASAL Bilateral 08/23/2020 Performed by Eddie Santana MD PhD at [facility] SEPTOPLASTY Circumferential 08/23/2020 Performed by Eddie Santana MD PhD at [facility] TONSILLECTOMY TUBAL LIGATION Family History Problem Relation [...] 0 min Stress: Stress Concern Present (11/25/2018) [employer] - Occupational Stress Questionnaire Feeling of Stress : To some extent Social Connections: Moderately Integrated (11/25/2018) Social Connection and Isolation Panel [NHANES] Frequency of Communication with Friends and Family: More than three times a week Frequency of Social Gatherings with Friends and Family: Twice a week Attends Jew Services: More than 4 times per year Active Member of Clubs or Organizations: No Attends Club or Organization Meetings: Never Marital Status: Interpersonal Safety: Not At Risk (11/25/2018) Humiliation, Afraid, Rape, and Kick questionnaire Fear of Current or Ex-Partner: No Emotionally Abused: No Physically Abused: No Sexually Abused: No Allergies Allergen Reactions Amoxicillin Diarrhea Medication List Accurate as of April 22, 2024 11:59 AM. If you have any questions, ask [...] T3 tumor, >5 cm in greatest dimension ([facility]) Dose: 2.5 mg Signed by: Will Cuadra 2.5 mg, oral, Daily Commonly known as: FEMARA levothyroxine 25 MCG tablet Refills: 3 Dose: 25 mcg Commonly known as: SYNTHROID, LEVOTHROID metoprolol succinate XL 100 mg 24 hr tablet Quantity: 90 tablet Refills: 3 Signed by: RALEIGH Galeas TAKE 1 TABLET BY MOUTH IN THE MORNING. NEED APPT FOR ANY FURTHER REFILLS. Commonly known as: TOPROL XL hvpjtwer-clxf-CB-calcium &mins 9 mg iron-400 mcg tablet Refills: 0 Dose: 1 tablet Commonly known as: THERAGRAN-M ondansetron 8 mg tablet Quantity: 30 tablet Refills: 2 Dose: 8 mg Signed by: Will Cuadra 8 mg, oral, Every 8 hours PRN [...] appearing, in no acute distress. Vitals: BP (!) 144/100 Pulse 73 Temp 36.4 C (97.6 F) (Oral) Resp 20 Ht 147.3 cm (4' 9.99 ) Wt 45.4 kg (100 lb) SpO2 98% BMI 20.91 kg/m Body mass index is 20.91 kg/m . Eyes: No icterus, no conjuctival [...] SVC. IMPRESSION: As above. Finalized by Rebel Moreon MD on 11/06/2018 5:57 AM X-ray Chest [...] stable. IMPRESSION: Large hiatal hernia. Finalized by Guancao Chatterjee MD on 11/04/2018 2:43 AM X-ray [...] 2 weeks) Comprehensive metabolic panel Collection Time: 04/12/24 12:54 PM Result Value Ref Range Sodium 139 134 - 146 mmol/L Potassium, Bld 3.7 3.5 - 5.0 mmol/L Chloride 106 98 - 109 mmol/L CO2 23 22 - 32 mmol/L Anion gap 10 5 - 15 mmol/L BUN 22 5 - 27 mg/dL Creatinine 0.72 0.40 - 1.00 mg/dL Glucose 117 (H) 65 - 99 mg/dL Calcium 9.4 8.5 - 10.5 mg/dL Total Protein 6.1 6.0 - 8.0 g/dL Albumin 3.6 3.2 - 5.3 g/dL Alkaline Phosphatase 79 39 - 130 U/L AST 26 0 - 41 U/L ALT 15 0 - 31 U/L Total bilirubin 0.4 0.3 - 1.2 mg/dL eGFR (CKD-EPI)non-race dependent 82 >59 ml/min/1.73sq.m CBC auto differential Collection Time: 04/12/24 12:54 PM Result Value Ref Range White Blood Cells 6.5 4.0 - 11.0 X10E9/L RBC count 3.97 3.80 - 5.20 X10E12/L Hemoglobin 12.8 11.7 - 15.5 g/dL Hematocrit 37.9 35 - 47 % MCV 96 80 - 100 fL MCH 32.2 27 - 34 pg MCHC 33.7 32 - 36 g/dL RDW 14.1 11.5 - 15.0 % Platelets 300 150 - 450 X10E9/L MPV 9.0 7 - 12 fL % neutrophils 68.1 % % lymphocytes 15.9 % % monocytes 10.9 % % eosinophils 3.0 % % Basophils 2.1 % Neutrophils Absolute (A) 4.4 1.5 - 6.6 X10E9/L Lymphocytes Absolute 1.0 1.0 - 3.5 X10E9/L Monocytes Absolute 0.7 0 - 0.9 X10E9/L Eosinophils Absolute 0.2 0.0 - 0.4 X10E9/L Basophils Absolute 0.1 0.0 - 0.2 X10E9/L Liver panel Collection Time: 04/12/24 12:54 PM Result Value Ref Range Alkaline phosphatase 79 39 - 130 U/L AST 26 0 - 41 U/L ALT 15 0 - 31 U/L Total Bilirubin 0.4 0.3 - 1.2 mg/dL Bilirubin, direct 0.1 0.0 - 0.4 mg/dL Albumin 3.6 3.2 - 5.3 g/dL Total Protein 6.1 6.0 - 8.0 g/dL Erythrocyte Sedimentation Rate (ESR) Collection Time: 04/12/24 12:54 PM Result Value Ref Range Sed Rate 14 0 - 30 mm/h Echo complete W/Strain Imaging Collection Time: 04/12/24 1:40 PM Result Value Ref Range LVOT stroke volume 45.08 ml LV Systolic Volume 13.90 mL EF 65 % FS 28 28 - 44 % LV Diastolic Volume 39.80 mL LVIDd 3.20 cm LVIDs 2.30 cm IVS 1.00 0.6 - 1.1 cm PW 1.30 0.6 - 1.1 cm LVOT diameter 1.90 cm TDI 7.40 cm/s MV TDI E' (medial) 4.90 cm/s LA Volume Index 26.5 mL/m2 E/A ratio 1.41 E wave deceleration time 180.00 msec MV Peak E Uriel 99.90 cm/s MV Peak A Uriel 70.80 cm/s LA size 2.40 cm Aortic root 2.70 cm LA volume 37.00 cm3 RV diastolic dimension (basal) 36.0 mm TAPSE 1.34 cm AV peak uriel 120.00 cm/s LVOT peak uriel 0.72 m/s AV VTI 23.80 cm LVOT peak VTI 15.90 cm AV mean gradient 3.00 mmHg AV peak gradient 5.76 mmHg AV valve area 1.89 Valve area - Index 1.4 MV pressure 1/2 time 53.00 ms MR max uriel 5.88 m/s MV valve area p 1/2 method 4.15 cm2 TR Peak Uriel 3.1 m/s TR peak gradient 38.94 mmHg PV peak gradient 1.35 mmHg LV ESV A2C 56.80 mL LV ESV A4C 23.00 mL MR VTI 194 cm LV RWT 2D 81.25 Echo EF Estimated 65 % AV Velocity Ratio 0.67 Left Ventricle Mass 111.969407803398520 g Interventricular Septum Diastolic Thickness by 2D 10 cm GLS -19 % Est. RA pressure 3 mmHg RV Peak Systolic Pressure 42 mmHg Diagnosis Problem list: Problem List Items Addressed This Visit Other Right breast cancer with T3 tumor, >5 cm in greatest dimension ([facility]) HER2-positive carcinoma of right breast (CMS-HCC) - Primary Impression: Iron deficiency anemia, not [...] surgical candidate per Daughter's discussion with Dr. Retana. I recommend femara plus phesgo. The patient has 3 doses of so far, clinically showing improvement with smaller mass, softer lesion and less pain in the right breast. Echo every 3 months. Breast right side ultrasound end of 03/2024 at [facility] showed original mass has decreased from 6.5-5.1 cm. Overall she has a good response. After next tx 05/04, change tx to every 4 weeks. Right side breast ultrasound end of 06/2024 (print out orders) F/u in 07/2024. Advise patient continue to use antiemetics and Imodium to control side effects from phesgo. Will Cuadra M.D. [facility] [address] [place] [address] Will Cuadra MD Please note that portions of this note were generated using voice recognition [employer] dictation software. Although every effort was made to ensure the accuracy of this automated adult crossing guard, some errors in adult crossing guard may have occurred. CC: Patient Care Team: Boone Ewing MD as PCP - General (Family Medicine) Will Cuadra MD as Consulting Physician (Hematology) Tayo Flores MD as Consulting Physician (Cardiology) PCP:BOONE EWING Referring MD: Boone Ewing MD documented [facility] encounter [facility] Instructions Will Cuadra MD - 04/22/2024 10:30 AM EST After next tx 05/04, change tx to every 4 weeks. Right side breast ultrasound end of 06/2024 (print out orders) F/u in 07/2024. documented in this encounter [facility] 04-19-2024 History of Presen t illness Narrative Angelika Goncalves Date of visit: 04/19/2024 Date of : 1940 Age: 84 y.o. Patient Active Problem List Diagnosis Cervical spondylosis without myelopathy Iron deficiency anemia Coronary artery disease involving stebbins coronary artery of stebbins heart History of coronary artery bypass graft x 2 Dyslipidemia Epistaxis S/P nasal septoplasty Right breast cancer with T3 tumor, >5 cm in greatest dimension ([facility]) HER2-positive carcinoma of right breast ([facility]) Allergies Allergen Reactions Amoxicillin Diarrhea Current Outpatient [...] Units total) by mouth in the morning. ciprofloxacin HCl (CIPRO) 500 mg tablet Take 1 tablet (500 mg total) by mouth in the morning and 1 tablet (500 mg total) before bedtime. cranberry 500 mg capsule Take by mouth 2 (two) times a day. famotidine (PEPCID) 20 mg tablet Take 1 tablet (20 mg total) by mouth as needed. 3 leflunomide (ARAVA) 20 mg tablet Take 1 tablet (20 mg total) by mouth in the morning. letrozole (FEMARA) 2.5 mg chemo tablet Take 1 tablet by mouth daily 90 tablet 3 levothyroxine (SYNTHROID, LEVOTHROID) 25 MCG tablet Take 1 tablet (25 mcg total) by mouth once daily. 3 metoprolol succinate XL (TOPROL XL) 100 mg 24 hr tablet TAKE 1 TABLET BY MOUTH IN THE MORNING. NEED APPT FOR ANY FURTHER REFILLS. 90 tablet 3 rmzhqrzv-ypdq-YA-calcium &mins (THERAGRAN-M) 9 mg iron-400 mcg tablet Take 1 tablet by mouth in the morning. ondansetron (ZOFRAN) 8 mg tablet Take 1 tablet (8 mg total) by mouth every 8 (eight) hours as needed for nausea or vomiting. 30 tablet 2 oxybutynin XL (DITROPAN-XL) 10 mg 24 hr tablet Take 1 tablet (10 mg total) by mouth in the morning. No current facility-administered medications for this visit. Chief Complaint Patient presents with Follow-up EST PT 12 MO FU L/S RDG - echo 03/12 - appt w/pt History of Present Illness Patient is an 84-year-old female with a past medical history of CAD with CABG x2 in 2019, preserved EF, dyslipidemia, hypertension, rheumatoid arthritis Patient presents today for follow up, she was recently diagnosed with breast cancer in November and has been undergoing chemotherapy for treatment. Currently receiving leflunomide Today she denies chest pain, has been ambulating less due to her fatigue and arthritis concerns not necessarily to dyspnea. Continues to go to the pool as she is able to walk in the water however has had to use a automatic wheelchair recently. No complaints of heart palpitations or heart racing, no lightheadedness or near-syncope. Patient had an echocardiogram completed that revealed an ejection fraction of 60-65% with severe tricuspid valve regurgitation and iitd-pw-odcacjpf mitral valve regurgitation with a posteriorly directed jet. EKG today sinus rhythm with a premature ventricular contraction Past Medical History: Diagnosis Date Cancer (CMS-HCC) [...] 11/03/2018 Performed by Kel Sherman MD at [facility] Cardiac catheterization N/A 11/01/2018 Performed by Kalin Hamm MD at [facility] CARDIAC CATH LABS Coronary angiogram and left ventricular gram/pressure N/A 11/01/2018 Performed by Kalin Hamm MD at [facility] CARDIAC CATH LABS HYSTERECTOMY 1986 complete INJECTION MEDIAL BRANCH NERVE BLOCK: right C34 45 56mbb Right 09/07/2017 Performed by Kel Serna MD at [facility] INJECTION MEDIAL BRANCH NERVE BLOCK: right C34 45 56mbb Right 07/31/2017 Performed by Kel Srena MD at [facility] RADIO FREQUENCY ABLATION: right C34 45 56 Right 06/21/2018 Performed by Kel Serna MD at [facility] RADIOFREQUENCY ABLATION SPINAL: right C34 45 56rfa Right 09/25/2017 Performed by Kel Serna MD at [facility] RADIOFREQUENCY TURBINATE NASAL Bilateral 08/23/2020 Performed by Eddie Santana MD PhD at [facility] SEPTOPLASTY Circumferential 08/23/2020 Performed by Eddie Santana MD PhD at [facility] TONSILLECTOMY TUBAL LIGATION Family History Problem Relation [...] Social History Narrative Not on file Social Drivers of Health Financial Resource Strain: [...] 0 min Stress: Stress Concern Present (11/25/2018) [employer] - Occupational Stress Questionnaire Feeling of Stress : To some extent Social Connections: Moderately Integrated (11/25/2018) Social Connection and Isolation Panel [NHANES] Frequency of Communication with Friends and Family: More than three times a week Frequency of Social Gatherings with Friends and Family: Twice a week Attends Jew Services: More than 4 times per year Active Member of Clubs or Organizations: No Attends Club or Organization Meetings: Never Marital Status: Interpersonal Safety: Not At Risk (11/25/2018) Humiliation, Afraid, Rape, and Kick questionnaire Fear of Current or Ex-Partner: No Emotionally Abused: No Physically Abused: No Sexually Abused: No Housing Instability: Not on file Review of Systems Review of Systems Constitutional: Negative for malaise/fatigue. Respiratory: Negative for cough, shortness of breath and wheezing. Hematologic/Lymphatic: Does not bruise/bleed easily. Musculoskeletal: Negative for joint pain, joint swelling, muscle cramps and muscle weakness. Gastrointestinal: Positive for nausea. Negative for abdominal pain, constipation, heartburn and vomiting. Neurological: Negative for dizziness, headaches, light-headedness and loss of balance. CARDIOVASCULAR: Please review HPI. Physical Examination General appearance: Alert, oriented and cooperative. In no acute distress. Skin: Warm and dry to touch. Head: Normocephalic, without obvious abnormality, atraumatic. Ears, Nose, Mouth, Throat: Throat clear without erythema or exudate. Dentition intact. Eyes: Conjunctivae unremarkable, EOM intact. Neck: No JVD Respiratory: Clear to auscultation bilaterally, no use of accessory muscles. Cardiovascular: Irregular rhythm, regular rate with normal S1 and S2 with no murmurs. Gastrointestinal: Soft, non-tender. Bowel sounds normal. Musculoskeletal: No peripheral edema. Neurologic: Oriented to time, person and place, affect appropriate. No focal/major motor defects noted. Psychiatric: Appropriate mood, memory and judgement. VITAL SIGNS: BP 134/84 Pulse 87 Ht 147.3 cm (4' 10 ) Wt 45.4 kg (100 lb) SpO2 95% BMI 20.90 kg/m No orders of the defined types were placed in this encounter. There are no discontinued medications. IMPRESSIONS/PLAN 1. ASCVD (arteriosclerotic cardiovascular disease) - CABG x2 2019 anginal complaints was arm pain and fatigue with abnormal stress -continue aspirin 81 mg, no complaints at this visit 2. Right breast cancer with T3 tumor, >5 cm in greatest dimension ([facility]) 3. Dyslipidemia -continue atorvastatin 4. Hypertension -well controlled, continue current medications 5. PAC/PVCs -asymptomatic 6. Rheumatoid arthritis 7. Fatigue 8. Severe tricuspid valve regurgitation 04/2024 -euvolemic, no complaints of swelling 9. Ysra-mk-puadsocl MR 04/2024 -similarly reported in TTE 2019 Patient is stable from a cardiovascular standpoint, euvolemic no complaints of chest pain maintaining sinus rhythm, patient will follow up in 1 year or sooner as needed seen with in the office. TODAYS ORDERS Orders Placed This Encounter Procedures POCT EKG FOLLOW UP Return in about 1 year (around 04/19/2025). PCP: BOONE EWING MD Referring Physician: Boone Ewing MD [address] [place] [address] Julianne Dotson PA-C 04/19/24 1029 documented in this encounter [facility] 04-18-2024 Miscellaneous Notes Left message for patient to remind them to bring their most current medication list with them to their appointment. documented in this encounter [facility] 04-18-2024 Telephone encounter Note Left message for patient to remind them to bring their most current medication list with them to their appointment. [facility] 04-13-2024 History of Presen t illness Narrative Patient is here for Phesgo injection as scheduled. Toxicity check completed per flowsheet data. Pre chemo check completed with Alvarez Eastman RN. Phesgo administered in right upper thigh subcutaneous tissue without incident and patient tolerated well. Site covered with band aid. Treatment calendar and lab results provided. Patient remained on unit for 15 minute observation period and denies any issues. Discharged in stable condition to private vehicle. documented in this encounter [facility] 03-10-2024 History of Presen t illness Narrative [...] follow with rheumatology. Subjective Patient ID: Angelika Goncalves is a 83 y.o. female who presents [...] Elevate legs PRN. documented in this encounter [facility] 03-02-2024 History of Presen t illness Narrative Pt here for phesgo injection. Phesgo injection given SQ to left thigh over 8 minutes. Pt remained on unit for 15 minute observation and denies any complaints. VS stable. Treatment calendar provided and v/u of upcoming appt's, labs, and dc instruction. Dc'd in stable condition with daughter documented in this encounter [facility] 02-10-2024 History of Presen t illness Narrative [...] condition. documented in this encounter [facility] 01-22-2024 History of Presen t illness Narrative Patient is here for follow up with Dr. Cuadra. Orders received for Echo every 3 months. Breast right side ultrasound end of 03/2024, [facility], print out orders. F/u in mid 04/2024. Patient given calendar, verbalized understanding of future appointments. documented in this encounter [facility] 01-22-2024 History of Presen t illness Narrative Images from the original note were not included. [facility] 01/22/24 Angelika Goncalves is a 83 y.o. year old female seen today in the oncology clinic. No chief complaint on file. History of Present Illness: Mrs. Goncalves is a 83 y.o. female who recently [...] daughter. 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 CABGX2/LIMAX1/SVGX1/EVH LEFT UPPER LEG/MINA N/A 11/03/2018 Performed by Kel Sherman MD at [facility] Cardiac catheterization N/A 11/01/2018 Performed by Kalin Hamm MD at [facility] CARDIAC CATH LABS Coronary angiogram and left ventricular gram/pressure N/A 11/01/2018 Performed by Kalin Hamm MD at [facility] CARDIAC CATH LABS HYSTERECTOMY 1986 complete INJECTION MEDIAL BRANCH NERVE BLOCK: right C34 45 56mbb Right 09/07/2017 Performed by Kel Serna MD at [facility] INJECTION MEDIAL BRANCH NERVE BLOCK: right C34 45 56mbb Right 07/31/2017 Performed by Kel Serna MD at [facility] RADIO FREQUENCY ABLATION: right C34 45 56 Right 06/21/2018 Performed by Kel Serna MD at [facility] RADIOFREQUENCY ABLATION SPINAL: right C34 45 56rfa Right 09/25/2017 Performed by Kel Serna MD at [facility] RADIOFREQUENCY TURBINATE NASAL Bilateral 08/23/2020 Performed by Eddie Santana MD PhD at [facility] SEPTOPLASTY Circumferential 08/23/2020 Performed by Eddie Santana MD PhD at [facility] TONSILLECTOMY TUBAL LIGATION Family History Problem Relation [...] 0 min Stress: Stress Concern Present (11/25/2018) [employer] - Occupational Stress Questionnaire Feeling of Stress : To some extent Social Connections: Moderately Integrated (11/25/2018) Social Connection and Isolation Panel [NHANES] Frequency of Communication with Friends and Family: More than three times a week Frequency of Social Gatherings with Friends and Family: Twice a week Attends Jew Services: More than 4 times per year [...] tumor, >5 cm in greatest dimension (CMS-HCC) Dose: 2.5 mg Signed by: Will Cuadra 2.5 mg, oral, Daily Commonly known as: FEMARA levothyroxine 25 MCG tablet Refills: 3 Dose: 25 mcg Commonly known as: SYNTHROID, LEVOTHROID metoprolol succinate XL 100 mg 24 hr tablet Quantity: 90 tablet Refills: 3 Signed by: RALEIGH Galeas TAKE 1 TABLET BY MOUTH IN THE MORNING. NEED APPT FOR ANY FURTHER REFILLS. Commonly known as: TOPROL XL pmeqlxud-cflz-MT-calcium &mins 9 mg iron-400 mcg tablet Refills: 0 Dose: 1 tablet Commonly known as: THERAGRAN-M ondansetron 8 mg tablet Quantity: 30 tablet Refills: 2 Dose: 8 mg Signed by: Will Cuadra 8 mg, oral, Every 8 hours PRN [...] T3 tumor, >5 cm in greatest dimension ([facility]) HER2-positive carcinoma of right breast ([facility]) - Primary Impression: Iron deficiency anemia, not [...] surgical candidate per Daughter's discussion with Dr. Retana. I recommend femara plus phesgo. The patient has 3 doses of so far, clinically showing improvement with smaller mass, softer lesion and less pain in the right breast. Echo every 3 months. Breast right side ultrasound end of 03/2024, [facility], print out orders. F/u in mid 04/2024 Advise patient continue to use antiemetics and Imodium to control side effects from phesgo. Will Cuadra M.D. [facility] [address] [place] [address] Will Cuadra MD Please note that portions of this note were generated using voice recognition [employer] dictation software. Although every effort was made to ensure the accuracy of this automated adult crossing guard, some errors in adult crossing guard may have occurred. CC: Patient Care Team: Boone Ewing MD as PCP - General (Family Medicine) Will Cuadra MD as Consulting Physician (Hematology) Tayo Flores MD as Consulting Physician (Cardiology) PCP:BOONE EWING Referring MD: Boone Ewing MD documented in this encounter [facility] 01-22-2024 Instructions Will Cuadra MD - 01/22/2024 10:15 AM EDT Echo every 3 months. Breast right side ultrasound end of 03/2024, [facility], print out orders. F/u in mid 04/2024 documented in this encounter [facility] 01-20-2024 History of Presen t illness Narrative [...] condition. documented in this encounter [facility] 12-30-2023 History of Presen t illness Narrative Introduced self & role of SW to pt who was agreeable to visit while in wait time post injection. Pt lives in split level home with her . Pt relayed difficulties with mobility with the steps in the home. Pt has a wheel chair for going out of the home due to arthritis. Pt relayed has beginning of dementia/Alzheimer's and can be verbally aggressive at times, pt does not endorse any physical agressiveness/abuse. Educated pt on resources available & offered folder of information from [facility], pt declined resources at this time. Band Maker inquired on support system, pt said her daughter Helena lives down the road & is very supportive & 2 other daughters, 1 in area 1 out of area provide good support as well; daughters assist with transportation, shopping, meal preparations and other household tasks; pt relayed her grandchildren are also very supportive. Pt has medical insurance, able to afford medications. Educated pt on [employer], pt does not endorse need; does not endorse any financial concerns. Pt does not endorse any current needs. Opportunity provided to ask questions, pt does not endorse any at this time; pt gives grant writer permission to speak with her daughter Helena. Band Maker introduced self & role of SW to Helena. Educated on [facility] resources/services & provided website information. Provided Ellie with writers card; informed her grant writer available & following. documented in this encounter [facility] 12-30-2023 History of Presen t illness Narrative Pt here for phesgo injection. Phesgo injection given SQ to left thigh over 6 minutes. Pt remained on unit for 15 minute observation and denies any complaints. VS stable. Treatment calendar provided and v/u of upcoming appt's, labs, and dc instruction. Dc'd in stable condition with daughter documented in this encounter [facility] 12-09-2023 History of Presen t illness Narrative Pt here for C1 phesgo injection. Onco link information printed and reviewed purpose/potential side effects with pt and daughter. V/u and would like to proceed with treatment. Consent signed. Labs and VS reviewed. Baseline toxicity assessment complete. Pt denies any complaints besides normal arthritis pains. Phesgo injection given SQ to left thigh over 6 minutes. Pt remained on unit for 30 minute observation and denies any complaints. VS stable. Treatment calendar provided and v/u of upcoming appt's, labs, and dc instruction. Dc'd in stable condition with daughter. documented in this encounter [facility] 12-02-2023 History of Presen t illness Narrative ECHO DONE ALL ISAIAS SCANNED INTO MEDIA AND ROUTED TO DR. CUADRA TO REVIEW. documented in this encounter [facility] [employer] 11-19-2023 History of Presen t illness Narrative Images from the original note were not included. Spoke with Daughter, she will get echo scheduled and get baseline cbc and cmp the same days. Once echo results are back okay to schedule phesgo. Will need to sign chemo consent. 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 She is not a very good surgical candidate per Daughter's discussion with Dr. Retana. I recommend femara plus phesgo. Rx sent, plan placed. She will need ECHO before start phesgo. I discussed the common side effects from treatment and Daughter would like to proceed with tx, f/u as planned. Will Cuadra M.D. [facility] [address] [place] [address] Previous Messages ----- Message ----- From: Nia Garcia RN Sent: 11/18/2023 3:23 PM EDT To: Will Cuadra MD Subject: path report Dr. Retana called to speak with you. [phone]. I told him you are out on vacation this week and he will be out next week. He wanted me to let you know her2 came back positive on path report. It is scanned into media and I routed it you. He is sending her back to Dr. Cuadra for treatment as she has a large mass. He did send out genetic testing for her family only. You can call his office with any questions. [facility] History of Presen t illness Narrative Dr. Retana called to speak with Dr. Cuadra. [phone]. Dr. Cuadra is on vacation this week. Message sent to Dr. Cuadra update her2 came back positive on path report. He is sending her back to Dr. Cuadra for treatment as she has a large mass. He did send out genetic testing for her family only. Dr. Cuadra can call his office with any questions. Path report scanned into media and routed to Dr. Cuadra to review. documented in this encounter [facility] 11-13-2023 History of Presen t illness Narrative Patient saw Dr. Cuadra today for follow up. Orders received to F/u in 2 months. Patient given calendar, verbalized understanding of future appointments. documented in this encounter [facility] 11-13-2023 History of Presen t illness Narrative Images from the original note were not included. [facility] 11/13/23 Angelika Goncalves is a 83 y.o. year old female seen today in the oncology clinic. Chief Complaint Patient presents with Breast Cancer Consult History of Present Illness: Mrs. Goncalves is a 83 y.o. female who recently [...] She received injectafer 12/2018, tolerated very well. Interval history: The patient recently noted a lump in her right breast. Ultrasound evaluation demonstrates a heterogeneous lobular masslike area within the upper-outer quadrant, 10 o'clock position 4.9 cm from the nipple measuring 6.5 x 5.4 x 2.2 cm. Denies any blood in the stool, no tarry stool. No shortness of breath during exertion. She underwent biopsy and came to my clinic to discuss further plan for treatment. Denies any significant bone pains she is wheelchair-bound due to severe arthritis. She lives with her at home. She is accompanied by her daughter. 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 CABGX2/LIMAX1/SVGX1/EVH LEFT UPPER LEG/MINA N/A 11/03/2018 Performed by Kel Sherman MD at [facility] Cardiac catheterization N/A 11/01/2018 Performed by Kalin Hamm MD at [facility]ATH [facility] Coronary angiogram and left ventricular gram/pressure N/A 11/01/2018 Performed by Kalin Hamm MD at [facility] CARDI[facility] CATH LABS HYSTERECTOMY 1986 complete INJECTION MEDIAL BRANCH NERVE BLOCK: right C34 45 56mbb Right 09/07/2017 Performed by Kel Serna MD at [facility] INJECTION MEDIAL BRANCH NERVE BLOCK: right C34 45 56mbb Right 07/31/2017 Performed by Kel Serna MD at [facility] RADIO FREQUENCY ABLATION: right C34 45 56 Right 06/21/2018 Performed by Kel Serna MD at [facility] RADIOFREQUENCY ABLATION SPINAL: right C34 45 56rfa Right 09/25/2017 Performed by Kel Serna MD at [facility] RADIOFREQUENCY TURBINATE NASAL Bilateral 08/23/2020 Performed by Eddie Santana MD PhD at [facility] SEPTOPLASTY Circumferential 08/23/2020 Performed by Eddie Santana MD PhD at [facility] TONSILLECTOMY TUBAL LIGATION Family History Problem Relation [...] cups of coffee in the morning Social Determinants of Health Financial Resource Strain: Low Risk (11/25/2018) Overall Financial Resource Strain (CARDIA) Difficulty of Paying Living Expenses: Not hard at all Food Insecurity: No Food Insecurity (11/13/2023) Hunger Screening Food Insecurity - Worry: Never True Food Insecurity - Inability: Never True Transportation Needs: No Transportation Needs (11/25/2018) PRAPARE - Transportation Lack of Transportation (Medical): No Lack of Transportation (Non-Medical): No Physical Activity: Inactive (11/25/2018) Exercise Vital Sign Days of Exercise per Week: 0 days Minutes of Exercise per Session: 0 min Stress: Stress Concern Present (11/25/2018) [employer] - Occupational Stress Questionnaire Feeling of Stress : To some extent Social Connections: Moderately Integrated (11/25/2018) Social Connection and Isolation Panel [NHANES] Frequency of Communication with Friends and Family: More than three times a week Frequency of Social Gatherings with Friends and Family: Twice a week Attends Jew Services: More than 4 times per year Active Member of Clubs or Organizations: No Attends Club or Organization Meetings: Never Marital Status: Interpersonal Safety: Not At Risk (11/25/2018) Humiliation, Afraid, Rape, and Kick questionnaire Fear of Current or Ex-Partner: No Emotionally Abused: No Physically Abused: No Sexually Abused: No Allergies Allergen Reactions Amoxicillin Diarrhea Medication List Accurate as of November 13, 2023 12:35 PM. If you have any questions, ask your [...] units tablet Refills: 0 Dose: 1,000 Units cranberry 500 mg capsule Refills: 0 famotidine 20 mg tablet Refills: 3 Dose: 20 mg Commonly known as: PEPCID leflunomide 20 mg tablet Refills: 0 Dose: 20 mg Commonly known as: ARAVA levothyroxine 25 MCG tablet Refills: 3 Dose: 25 mcg Commonly known as: SYNTHROID, LEVOTHROID metoprolol succinate XL 100 mg 24 hr tablet Quantity: 90 tablet Refills: 3 Signed by: RALEIGH Galeas TAKE 1 TABLET BY MOUTH IN THE MORNING. NEED APPT FOR ANY FURTHER REFILLS. Commonly known as: TOPROL XL urlvtkzw-jjrq-CM-calcium &mins 9 mg iron-400 mcg tablet Refills: 0 Dose: 1 tablet Commonly known as: THERAGRAN-M oxybutynin XL 10 mg 24 hr tablet Refills: 0 Dose: 10 mg Commonly known as: DITROPAN-XL Review of Symptoms: Review of Systems Constitutional: Positive for fatigue. Respiratory: Positive for shortness of breath. Cardiovascular: Positive for palpitations. All other systems reviewed and are negative. ECO- Symptomatic; in bed >50% of the day Physical Exam: General: Chronic ill appearing, in no acute distress. Vitals: BP 147/76 Pulse 66 Temp 36.9 C (98.5 F) (Oral) Resp 16 Ht 148 cm (4' 10.27 ) Wt 48.1 kg (106 lb) SpO2 98% BMI 21.95 kg/m Body mass index is 21.95 kg/m . Eyes: No icterus, no conjuctival [...] no unilateral weakness. Mood and affect: Normal. Recent Imaging: X-ray Chest 2 Views Result [...] MD on 10/29/2018 12:16 PM Recent Labs: No results found for this or any previous visit (from the past 336 hour(s)). Diagnosis Problem list: Problem List Items Addressed This Visit Other Right breast cancer with T3 tumor, >5 cm in greatest dimension ([facility]) - Primary Impression: Iron deficiency anemia, not responding to oral iron supplement Right-sided breast cancer Plan: I reviewed the patient's final path with her and her daughter in details. 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 14 mm in greatest dimension. There is a low-grade solid type in Situ carcinoma in the background. ERPR and HER2 status still pending. Patient and her daughter understand that depends on the receptor and HER2 status will treat different types of breast cancer with different approaches. She will meet with surgeon next week to have further discussion regarding surgical options. If her tumor type is ERPR positive HER2 negative, I will start her on Femara While waiting for further treatment planning. Plan to obtain axillary ultrasound to rule out axillary involvement and CT chest imaging to complete staging. Follow-up with me in 2 months, sooner if needed. Will Cuadra MD Please note that portions of this note were generated using voice recognition [employer] dictation software. Although every effort was made to ensure the accuracy of this automated adult crossing guard, some errors in adult crossing guard may have occurred. CC: Patient Care Team: Boone Ewing MD as PCP - General (Family Medicine) Will Cuadra MD as Consulting Physician (Hematology) Tayo Flores MD as Consulting Physician (Cardiology) PCP:BOONE EWING Referring MD: Boone Ewing MD [facility] Instructions Will Cuadra MD - 11/13/2023 11:30 AM EDT Change daughter as primary contact. F/u in 2 months. [facility] History of Presen t illness Narrative Angelika Polanco Eliezer Date of visit: 04/10/2023 Date of : 1940 Age: 83 y.o. Patient Active Problem List Diagnosis Cervical spondylosis without myelopathy Iron deficiency anemia Coronary artery disease involving stebbins coronary artery of stebbins heart History of coronary artery bypass graft [...] FOR ANY FURTHER REFILLS. 90 tablet 3 uxkvypjk-nbig-ZT-calcium &mins (THERAGRAN-M) 9 mg iron-400 mcg tablet [...] Full dose Tues, Thurs, Sat, Sun (2.5mg Mon, Wed, Fri) sod qwrhk-mqqdgv-kkdnyp bottle (NEILMED SINUS RINSE COMPLETE) packet with [...] palpitations. 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 CABGX2/LIMAX1/SVGX1/EVH LEFT UPPER LEG/MINA N/A 11/03/2018 Performed by Kel Sherman MD at [facility] Cardiac catheterization N/A 11/01/2018 Performed by Kalin Hamm MD at [facility] CARDI[facility] CATH LABS Coronary angiogram and left ventricular gram/pressure N/A 11/01/2018 Performed by Kalin Hamm MD at [facility] CARDI[facility] CATH LABS HYSTERECTOMY 1986 complete INJECTION MEDIAL BRANCH NERVE BLOCK: right C34 45 56mbb Right 09/07/2017 Performed by Kel Serna MD at [facility] INJECTION MEDIAL BRANCH NERVE BLOCK: right C34 45 56mbb Right 07/31/2017 Performed by Kel Serna MD at [facility] RADIO FREQUENCY ABLATION: right C34 45 56 Right 06/21/2018 Performed by Kel Serna MD at [facility] RADIOFREQUENCY ABLATION SPINAL: right C34 45 56rfa Right 09/25/2017 Performed by Kel Serna MD at [facility] RADIOFREQUENCY TURBINATE NASAL Bilateral 08/23/2020 Performed by Eddie Santana MD PhD at [facility] SEPTOPLASTY Circumferential 08/23/2020 Performed by Eddie Santana MD PhD at [facility] TONSILLECTOMY TUBAL LIGATION Family History Problem Relation [...] 0 min Stress: Stress Concern Present (11/25/2018) [employer] - Occupational Stress Questionnaire Feeling of Stress : To some extent Social Connections: Moderately Integrated (11/25/2018) Social Connection and Isolation Panel [NHANES] Frequency of Communication with Friends and Family: More than three times a week Frequency of Social Gatherings with Friends and Family: Twice a week Attends Jew Services: More than 4 times per year [...] by mouth 2 (two) times a day. jisdubpk-sdqy-MT-calcium &mins (THERAGRAN-M) 9 mg iron-400 mcg tablet [...] Referring Physician: Boone Ewing MD [address] [place] [address] documented in this encounter [facility] 04-09-2023 Miscellaneous Notes Called patient to remind them to bring their most current copy of their medication list with them to their appt. Patient verbalizes understanding. documented in this encounter [facility] 04-09-2023 Telephone encounter Note Called patient to remind them to bring their most current copy of their medication list with them to their appt. Patient verbalizes understanding. [employer] Evaluation note No assessment inform ation available [facility] Work Phone: Evaluation note Diagnosis Essential hypertension, benign (CMS/HCC)- Primary Essential [...] pathological fracture (CMS/HCC) documented in this encounter [facility] HealthcareEvaluation note* Diagnosis Essential hypertension, benign (CMS/HCC)- Primary [...] multiple joints (CMS/HCC) documented in this encounter [facility] HealthcareEvaluation note* Diagnosis HER2-positive carcinoma of right breast (CMS-HCC)- Primary Right breast cancer with T3 tumor, >5 cm in greatest dimension (CMS-HCC) documented in this encounter [facility] SystemEvaluation note* Diagnosis ASCVD (arteriosclerotic cardiovascular disease)- Primary Unspecified cardiovascular disease Right breast cancer with T3 tumor, >5 cm in greatest dimension (CMS-HCC) documented in this encounter [facility] SystemEvaluation note* Diagnosis HER2-positive carcinoma of right breast (CMS-HCC)- Primary Right breast cancer with T3 tumor, >5 cm in greatest dimension (CMS-HCC) [facility] Diagnosis HER2-positive carcinoma of right breast (CMS-HCC)- Primary Right breast cancer with T3 tumor, >5 cm in greatest dimension (CMS-HCC) documented in this encounter [facility] SystemEvaluation note* Diagnosis HER2-positive carcinoma of right breast (CMS-HCC)- Primary Right breast cancer with T3 tumor, >5 cm in greatest dimension (CMS-HCC) documented in this encounter [facility] SystemEvaluation note* Diagnosis Essential hypertension, benign (CMS/HCC)- [...] pain Rheumatoid arthritis involving multiple joints (CMS/HCC) Degeneration of intervertebral disc of lumbar region with discogenic back pain and lower extremity pain- Primary Dysuria Major depressive disorder, recurrent, moderate (CMS/HCC) Major depressive disorder, recurrent episode, moderate [facility] Diagnosis History of coronary artery bypass graft x 2- Primary Dyslipidemia Other and unspecified hyperlipidemia Primary hypertension Unspecified essential hypertension [facility]* Diagnosis Right breast cancer with T3 tumor, >5 cm in greatest dimension (CMS-HCC)- Primary [facility]* Diagnosis Right breast cancer with T3 tumor, >5 cm in greatest dimension (CMS-HCC)- Primary HER2-positive carcinoma of right breast (CMS-HCC) Encounter for monitoring cardiotoxic drug therapy [facility]* Diagnosis Right breast cancer with T3 tumor, >5 cm in greatest dimension (CMS-HCC)- Primary [facility]* Diagnosis HER2-positive carcinoma of right breast (CMS-HCC)- Primary Right breast cancer with T3 tumor, >5 cm in greatest dimension (CMS-HCC) documented in this encounter [facility] SystemEvaluation note* Diagnosis HER2-positive carcinoma of right breast (CMS-HCC)- Primary Encounter for monitoring cardiotoxic drug therapy Right breast cancer with T3 tumor, >5 cm in greatest dimension (CMS-HCC) [facility]* Diagnosis HER2-positive carcinoma of right breast (CMS-HCC)- Primary Right breast cancer with T3 tumor, >5 cm in greatest dimension (CMS-HCC) [facility]* Diagnosis HER2-positive carcinoma of right breast (CMS-HCC)- Primary Right breast cancer with T3 tumor, >5 cm in greatest dimension (CMS-HCC) [facility]* Diagnosis HER2-positive carcinoma of right breast (CMS-HCC)- Primary Encounter for monitoring cardiotoxic drug therapy documented in this encounter [facility] System[facility] note* Diagnosis Essential hypertension, benign (CMS/HCC)- [...] pain Rheumatoid arthritis involving multiple joints (CMS/HCC) Major depressive disorder, recurrent, moderate (CMS/HCC)- Primary Major depressive disorder, recurrent episode, moderate Lumbar spondylosis Lumbosacral spondylosis without myelopathy Malignant neoplasm of upper-outer quadrant of right breast in female, estrogen receptor positive (CMS/HCC) Rheumatoid arthritis involving multiple joints (CMS/HCC) Chronic heart failure with preserved ejection fraction (HFpEF) (CMS/HCC) documented in this encounter [facility]* Diagnosis Essential hypertension, benign (CMS/HCC)- Primary [...] pain Rheumatoid arthritis involving multiple joints (CMS/HCC) Major depressive disorder, recurrent, moderate (CMS/HCC)- Primary Major depressive disorder, recurrent episode, moderate Lumbar spondylosis Lumbosacral spondylosis without myelopathy Malignant neoplasm of upper-outer quadrant of right breast in female, estrogen receptor positive (CMS/HCC) Rheumatoid arthritis involving multiple joints (CMS/HCC) Chronic heart failure with preserved ejection fraction (HFpEF) (CMS/HCC) Overactive bladder Hypertonicity of bladder documented [facility] System[facility]ructionsNot on filedocumented in this encounterProMed[facility] SystemInstructionsNot on filedocumented in this encounterPro[facility] SystemInstructionsNot on filedocumented in this encounterProB[facility] SystemInstructionsNot on filedocumented in this encounterPro[facility] InstructionsNot on filedocumented in this encounterPro[facility] InstructionsNot on filedocumented in this encounterPro[facility] InstructionsNot on filedocumented in this encounterPro[facility] InstructionsNot on filedocumented in this encounterProMer[facility] InstructionsNot on filedocumented in this encounterProMercy [facility] InstructionsNot on filedocumented in this encounterProMedica Health System InstructionsNot on filedocumented in this encounterProMercy [facility] InstructionsNot on filedocumented in this encounterProMercy [facility] Summary Purpose Family History No Family History Records FoundNo Family History Records FoundNo Family History Records FoundNo Family History Records FoundNo Family History Records FoundNo Family History Records Found Advance Directives Advance Directive Response Recorded Date/ Time Advance Directives No October 15 11:48am Advance Directive Response Recorded Date/ Time Advance Directives No October 15 10:48am Documents on File Type Date Recorded Patient [employer] Expl anation Advance Directives and Living Will 11/02/2018 2016-01-24 living wi ll Date Activated Date Inactivated Comments 10/29/2018 3:22 PM 11/07/2018 5:21 PM Latest Code Status on File Code Status Date Activated Date Inactivated Comments Full Code 10/29/2018 3:22 PM 11/07/2018 5:21 PM Date Activated Date Inactivated Comments 10/29/2018 3:22 PM 11/07/2018 5:21 PM Chief Complaint and Reason for Visit Chief Complaint M06.4 Z11.59 Rheumatoid arthritis/immunosuppression Chief Complaint Rheumatoid arthritis /immunosuppression Chief Complaint Unknown Reason for Referral Specialty Diagnoses / Procedures Referred By Contness t Referred To Contact Diagnoses Right breast cancer with T3 tumor, >5 cm in greatest dimension (CMS-HCC) HER2-positive carcinoma of right breast (CMS-HCC) Encounter for monitoring cardiotoxic drug therapy Procedures Echo complete W/Strain Imaging Will Cuadra MD [id number] [facility] [address] [place] [address] Referral ID Status Reason Start Date Expiration Date V isits Requested Visits Authorized [id number] Pending Review 11/19/2023 11/18/2024 1 1 Additional Source Comments INFORMATION SOURCE (unrecogn ized section and content) DATE CREATED AUTHOR 05/10/2021 [facility] dical Specialist DATE CREATED AUTHOR AUTHOR'S ORGANIZ ATION 04/02/2022 [facility] DATE CREATED AUTHOR AUTHOR'S ORGANIZ ATION 03/26/2024 [facility] DATE CREATED AUTHOR AUTHOR'S ORGANIZ ATION 06/11/2024 [facility] dical Specialists EPIC DATE CREATED AUTHOR AUTHOR'S ORGANIZ ATION 06/30/2024 [facility] DATE CREATED AUTHOR AUTHOR'S ORGANIZ ATION 06/30/2024 [facility] Care Teams (unrecognized sec tion and content) Team Status: Inactive Member Role Status Dates Carin Brady DO Primary Care Provider Active Jan Solares MD Attending Provider Active Team Status: Active Member Role Status Dates Carin Brady DO Primary Care Provider Active Team Status: Inactive Member Role Status Dates Boone Ewing MD Attending Provider Active Star t: November 03, 2023 End: November 03, 2023 Fashion Consultant Sales Relationship Specialty Start Date End Date Boone Ewnig MD [address] [place] [address] PCP - General Family Medicine 06/03/23 Fashion Consultant Sales Relationship Specialty Start Date End Date Boone Ewing MD [address] [place] [address] PCP - General Family Medicine 06/03/23 Fashion Consultant Sales Relationship Specialty Start Date End Date Boone Ewing MD [address] [place] [address] PCP - General Family Medicine 06/03/23 Fashion Consultant Sales Relationship Specialty Start Date End Date Boone Ewing MD [address] [place] [address] PCP - General Family Medicine 06/03/23 Fashion Consultant Sales Relationship Specialty Start Date End Date Boone Ewing MD [address] [place] [address] PCP - General Family Medicine 02/09/24 Fashion Consultant Sales Relationship Specialty Start Date End Date Boone Ewing MD [address] [place] [address] PCP - General Family Medicine 02/09/24 Fashion Consultant Sales Relationship Specialty Start Date End Date Boone Ewing MD [address] [place] [address] PCP - General Family Medicine 02/09/24 Fashion Consultant Sales Relationship Specialty Start Date End Date Boone Ewing MD [address] [place] [address] PCP - General Family Medicine 02/09/24 Fashion Consultant Sales Relationship Specialty Start Date End Date Boone Ewing MD [address] [place] [address] PCP - General Family Medicine 02/09/24 Fashion Consultant Sales Relationship Specialty Start Date End Date Boone Ewing MD [address] [place] [address] PCP - General Family Medicine 02/09/24 Fashion Consultant Sales Relationship Specialty Start Date End Date Boone Ewing MD [address] [place] [address] PCP - General Family Medicine 06/03/23 Fashion Consultant Sales Relationship Specialty Start Date End Date Boone Ewing MD [address] [place] [address] PCP - General Family Medicine 06/03/23 Fashion Consultant Sales Relationship Specialty Start Date End Date Boone Ewing MD [address] [place] [address] PCP - General Family Medicine 12/23/21 Fashion Consultant Sales Relationship Specialty Start Date End Date Boone Ewing MD [address] [place] [place] [address] PCP - General Family Medicine 12/23/21 Fashion Consultant Sales Relationship Specialty Start Date End Date Boone Ewing MD [address] [place] [place] [address] PCP - General Family Medicine 12/23/21 Fashion Consultant Sales Relationship Specialty Start Date End Date Boone Ewing MD [address] [place] [address] PCP - General Family Medicine 12/23/21 Fashion Consultant Sales Relationship Specialty Start Date End Date Boone Ewing MD [address] [place] [address] PCP - General Family Medicine 12/23/21 Fashion Consultant Sales Relationship Specialty Start Date End Date Boone Ewing MD PCP - General Family Medicine 12/23/21 Fashion Consultant Sales Relationship Specialty Start Date End Date Boone Ewing MD PCP - General Family Medicine 12/23/21 Fashion Consultant Sales Relationship Specialty Start Date End Date Boone Ewing MD PCP - General Family Medicine 12/23/21 Fashion Consultant Sales Relationship Specialty Start Date End Date Boone Ewing MD PCP - General Family Medicine 12/23/21 Fashion Consultant Sales Relationship Specialty Start Date End Date Boone Ewing MD PCP - General Family Medicine 12/23/21 Fashion Consultant Sales Relationship Specialty Start Date End Date Boone Ewing MD PCP - General Family Medicine 12/23/21 Fashion Consultant Sales Relationship Specialty Start Date End Date Boone Ewing MD PCP - General Family Medicine 12/23/21 Fashion Consultant Sales Relationship Specialty Start Date End Date Boone Ewing MD PCP - General Family Medicine 12/23/21 Fashion Consultant Sales Relationship Specialty Start Date End Date Boone Ewing MD PCP - General Family Medicine 12/23/21 Fashion Consultant Sales Relationship Specialty Start Date End Date Boone Ewing MD [address] [place] [address] PCP - General Family Medicine 02/09/24 Fashion Consultant Sales Relationship Specialty Start Date End Date Boone Ewing MD [address] [place] [address] PCP - General Family Medicine 02/09/24 Fashion Consultant Sales Relationship Specialty Start Date End Date Boone Ewing MD [address] [place] [address] PCP - General Family Medicine 02/09/24 Fashion Consultant Sales Relationship Specialty Start Date End Date Boone Ewing MD [address] [place] [address] PCP - General Family Medicine 06/03/23 Fashion Consultant Sales Relationship Specialty Start Date End Date Boone Ewing MD PCP - General Family Medicine 02/09/24 Fashion Consultant Sales Relationship Specialty Start Date End Date Boone Ewing MD [address] [place] [address] PCP - General Family Medicine 06/03/23 Goals [...] Specialty Diagnoses / Procedures Referred By Louie mae Referred To Contact Diagnoses HER2-positive carcinoma of right breast (CMS-HCC) Right breast cancer with T3 tumor, >5 cm in greatest dimension (CMS-HCC) Procedures INJECTION, PERTUZUMAB, TRASTUZUMAB, AND HYALURONIDASE-ZZXF, PER 10 MG Will Cuadra MD [address] [place] [address] [facility] Med [facility] [address] [place] [phone] Referral ID Status Reason Start Date Expiration Date V isits Requested Visits Authorized [id number] Authorized 11/18/2023 11/17/2024 11 11 Reason Comments Med Refill Reason Comments Follow-up 6mFell on Thursday, wo rried about concussion Reason Comments Injection Phesgo Specialty Diagnoses / Procedures Referred By Louie mae Referred To Contact Diagnoses HER2-positive carcinoma of right breast (CMS-HCC) Right breast cancer with T3 tumor, >5 cm in greatest dimension (CMS-HCC) Procedures INJECTION, PERTUZUMAB, TRASTUZUMAB, AND HYALURONIDASE-ZZXF, PER 10 MG Will Cuadra MD [address] [place] [address] Phone: tel: fax: Carey Pereira [facility] - Medical Oncology [address] [place] [phone] Phone: tel: fax: Reason Comments Follow-up EST PT 12 MO FU L/S RDG - echo 03/12 - sched appt w/pt Reason Comments Follow-up Reason Comments Follow-up uti Reason Comments Follow-up EST PT F/U 1 YR L/S MS NO TESTS SCHED W/PT Reason Comments Breast Cancer Consult Specialty Diagnoses / Procedures Referred By Louie t Referred To Contact Hematology/Oncology Diagnoses Invasive ductal carcinoma of breast, female, right (CMS-HCC) Procedures ID OFFICE OUTPATIENT VISIT 60-74 MINS HIGH MDM AMB REFERRAL TO HEMATOLOGY / ONCOLOGY Naderer, Boone, MD [address] [place] [address] Will Cuadra MD [address] [place] [address] Referral ID Status Reason Start Date Expiration Date V isits Requested Visits Authorized [id number] Pending Review 11/11/2023 05/09/2024 1 1 Reason Comments Injection phesgo Reason Comments Injection Phesgo Specialty Diagnoses / Procedures Referred By Contac t Referred To Contact Diagnoses HER2-positive carcinoma of right breast (CMS-HCC) Right breast cancer with T3 tumor, >5 cm in greatest dimension (CMS-HCC) Procedures INJECTION, PERTUZUMAB, TRASTUZUMAB, AND HYALURONIDASE-ZZXF, PER 10 MG Will Cuadra MD [address] [place] [address] Phone: tel: fax: [facility] - Medical Oncology [address] [place] [phone] Phone: tel: fax: Reason Onset Date Comments Med Refill 07/01/2024 FOR RECORDS PERTAINING TO PATIENTS WHO ARE [...] BE BASED ON THE PRIMARY CLINICAL RECORDS. [employer] provides no warranty or guarantee of the accuracy or completeness of information in this document.
--- NOTE | 2024-07-06 10:00 | CA_ITS ---
Patient Name: TRAVIS GONCALVES MR#: [id number] : 1940 Exam Date: 07/06/2024 Ordering Doctor: DR. WILL CUADRA M.D. ECHOCARDIOGRAM REPORT PROCEDURE: CARDIO PULMONARY ECHOCARDIO M/2D COMP INDICATIONS: HER2-positive carcinoma of right breast, cardiotoxic therapy COMPARISON: None. DESCRIPTION: COMPLETE ECHOCARDIOGRAM Real-time transthoracic echocardiography with 2D, M-mode, spectral and color flow Doppler performed. QUALITY: Technical quality was good. LEFT VENTRICLE: Normal chamber size. Normal left ventricular wall thickness. Systolic function is at the lower limits of normal. Left ventricular strain: Full A4CH -13.9%, Full A2C -15.2%, Full APLAX -14.6%, average global longitudinal strain -14.6%. Strain values are mildly reduced. LV EF: Estimated left ventricular ejection fraction is 50-55%. Lower limits of normal left ventricular ejection fraction, (50-55%). DIASTOLIC: Grade II diastolic dysfunction. ATRIAL SEPTUM: Visually appears intact. LEFT ATRIUM: Severe dilatation. RIGHT ATRIUM: Severe dilatation. RIGHT VENTRICLE: Normal chamber size. Normal right ventricular systolic function. TRICUSPID VALVE: Normal mobility and thickness. No stenosis with mild to moderate regurgitation. Doppler studies reveal moderately (45-60) elevated right sided pressures. RVSP 46 mmHg MITRAL VALVE: Normal mobility and thickness. No evidence of mitral valve stenosis. There is no mitral annular calcification. Mild to moderate mitral regurgitation. AORTIC VALVE: Normal trileaflet appearance. No visible sclerosis. Normal leaflet mobility. No evidence of aortic valve stenosis. Trivial aortic regurgitation. AORTIC ROOT: Normal diameter and appearance, measuring 2.8 cm. Ascending aorta is normal in size, measuring 2.7 cm. PULMONIC VALVE: Normal thickness and mobility. No stenosis. No regurgitation. PERICARDIUM: No evidence of pericardial effusion. IVC: Collapses with inspirations. IVC is normal in size. PLEURA: CONCLUSION: 1. Normal left ventricular size with low normal systolic function. Estimated LVEF is 50-55%. Global longitudinal strain is mildly reduced. 2. Normal right ventricular size and systolic function. 3. Severe biatrial dilatation. 4. Mild to moderate mitral and tricuspid regurgitation. 5. Grade 2 diastolic dysfunction. 6. Moderately elevated right-sided pressures. RVSP is 46 mmHg. Adult Echocardiography Procedure Report Left Ventricle LVEDD (3.7 - 5.6 cm): 3.54 cm LVESD (2.2 - 4.0 cm): 2.60 cm LVIVS thickness (0.6 - 1.2 cm): 1.05 cm LVPW thickness (0.5 - 1.0 cm): 0.88 cm e': 0.09 m/s E - e': 9.67 LVOT Max Gradient: 1.95 mm[Hg] LVOT Area (cm2): 0.70 m/s Peak Velocity (LVOT): 0.70 m/s Mean Velocity (LVOT): 0.52 m/s LVOT Diameter 2.04 cm Left Atrium LA Volume Index (2D A2C): 51.45 ml/m2 Left Atrium Systolic Dimension: 2.73 cm Mitral Valve MV E to A Ratio: 1.21 Mitral Valve A-Wave Peak Velocity: 0.70 m/s Mitral Valve E-Wave Peak Velocity: 0.85 m/s Right Ventricle Aorta AO Root Diam: 2.84 cm Ascending Ao Diam: 2.69 cm Aortic Valve AoV Area (Peak Johan): 2.05 cm2, 2.05 cm2 AoV Area (VTI): 2.28 cm2, 2.28 cm2 Peak Velocity(Antegrade Flow): 1.11 m/s Peak Gradient(Antegrade Flow): 4.93 mm[Hg] Mean Velocity(Antegrade Flow): 0.76 m/s Mean Gradient(Antegrade Flow): 2.63 mm[Hg] Velocity Time Integral: 25.25 cm Tricuspid Valve Peak Velocity (Regurgitant Flow): 3.28 m/s, 2.96 m/s, 3.18 m/s Pulmonic Valve Peak Gradient: 1.19 mm[Hg], 1.52 mm[Hg] Right Atrium Right Atrium Systolic Pressure: 38.30 ml, 38.30 ml Dictated by: Hiren Moore M.D. on 07/06/2024 at 17:32 Approved by: Hiren Moore M.D. on 07/06/2024 at 17:43
== END 2024-07-06 09:49 | disposition home or self-care (01) ==
LOC: CARD 09:48
PROVIDERS: PCP Family Medicine
DX: C50.911 Malignant neoplasm of unspecified site of right female breast (principal); Z17.31 Human epidermal growth factor receptor 2 positive status; Z51.81 Encounter for therapeutic drug level monitoring; Z79.899 Other long term (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
CPT/HCPCS: 93356

== ENCOUNTER 2024-10-18 09:49 | Outpatient (OUT) | payer MEDICARE, OTHER, SELFPAY ==
--- OUTSIDE RECORDS SUMMARY | 2024-10-18 09:52 | XMS_ITS | Encounter Summary ---
Author Organization [facility] Address [address] [place] [address] Care Team Providers Care Bulk Plant Manager Name Role Phone Carin Brady DO Primary Care Provider [phone] Boone Kidd MD Primary Care Provider [phone] Boone Kidd MD Primary Care Provider [phone] Reason for Visit * Reason Comments Med Refill Encounter Details Date Type Department Care Team (Late st Contact Info) Description 02/12/2023 Refill [facility] [address] [place] [address] Carin Brady, DO [address] [address] Social History Tobacco Use Types Packs/Day Years Used Date Smoking Tobacco: Never Assessed Comments Unknown Sex and Gender Information Value Date Recorded Sex Assigned at Not on file Legal Sex Female 7:35 PM EDT Gender Identity Not on file Sexual Orientation Not on file documented as of this encounter Plan of Treatment Upcoming Encounters Date Type Department Care Team (Late st Contact Info) Description 12/12/2024 10:45 AM EDT Office Visit [facility] [address] [place] [address] Boone Kidd MD [address] [place] [address] 03/16/2025 1:00 PM EST Office Visit [facility] [address] [place] [address] Boone Kidd MD [address] [place] [address] documented as of this encounter Visit Diagnoses Not on filedocumented in this encounter Care Teams Bulk Plant Manager Relationship Specialty Start Date End Date Carin Brady DO PCP - General Family Medicine 08/12/22 03/22/23 Boone Kidd MD PCP - General Family Medicine 03/23/23 06/02/23 Boone Kidd MD [address] [place] [address] PCP - General Family Medicine 06/03/23 documented as of this encounter
--- OUTSIDE RECORDS SUMMARY | 2024-10-18 09:52 | XMS_ITS | Encounter Summary ---
Author Organization [facility] Address [address] [place] [address] Care Team Providers Care Bench Scientist Name Role Phone Wil Ewing MD Primary Care Provider [phone] Encounter Details Date Type Department Care Team (Late Contact Info) Description 11/03/2023 Clinisync Result Encounter [facility] Department Unsolicited Wil Ewing MD [address] [place] [address] Social History Tobacco Use Types Packs/Day Years Used Date Smoking Tobacco: Never Passive Smoke Exposure: Never Smokeless Tobacco: Never Alcohol Use Standard Drinks/Week Comments Never 0 (1 standard drink = 0.6 oz pure alcohol) caffeine intake : 1-2 cups per day PHQ-2 Answer Date Recorded Patient Health Questionnaire-2 Score 0 06/03/2023 Comments Unknown Sex and Gender Information Value Date Recorded Sex Assigned at Not on file Legal Sex Female 7:35 PM EDT Gender Identity Not on file Sexual Orientation Not on file documented as of this encounter Plan of Treatment Upcoming Encounters Date Type Department Care Team (Late st Contact Info) Description 12/12/2024 10:45 AM EDT Office Visit [facility] [address] [place] [address] Wil Ewing MD [address] [place] [address] 03/16/2025 1:00 PM EST Office Visit [facility] [address] [place] [address] Wil Ewing MD [address] [place] [address] documented as of this encounter Procedures Procedure Name Priority Date/Time Associated Diagnosis Comments US VAC ASST BX BREAST RT W CLIP 11/03/2023 2:17 PM EDT documented in this encounter Results * US VAC ASST BX BREAST RT W CLIP (11/03/2023 2:17 PM EDT) Anatomical Region Laterality Modality Radiographic Maria D ging 11/03/2023 2:17 PM EDT Narrative 11/03/2023 2:19 [place] [address] Ultrasound Report Signed Patient: TRAVIS MARTINS MR#: [id number] : 1940 Acct:[id number] Age/Sex: 83 / F ADM Date: 11/03/23 Loc: US Attending Dr: Wil Ewing M.D. Ordering Physician: Wil Ewing M.D. Date of Service: 11/03/23 Procedure(s): US breast vac bx w/ clip RT Accession Number(s): [id number] cc: Wil Ewing M.D. The [address] [address] Patient Name: TRAVIS MARTINS MRN: [id number] date: 1940 Sex: F Assigned Patient Location: US Current Patient Location: US Accession/Order Number: [id number] Exam Date: 11/03/2023 12:45 Report Date: 11/03/2023 14:17 At the request of: WIL EWING Procedure: US breast vac bx w/ clip RT EXAMINATION: US breast vac bx w/ clip RT HISTORY: right breast mass COMPARISON: No relevant comparison available. TECHNIQUE: After obtaining informed consent, an ultrasound-guided biopsy was performed in the usual sterile manner. FINDINGS: IMAGING: Ultrasound BIOPSY NEEDLE: 13-gauge mammotome vacuum assisted core needle SPECIMEN TYPE, #, LOCATION: 6 samples, 10:00 right breast mass MEDICATION: 3 cc 1% buffered lidocaine superficial. 6 cc 1% buffered lidocaine with epinephrine deep COMPLICATIONS: None. LABORATORY: OTHER: Negative. US/US breast vac bx w/ clip RT IMPRESSION: Uneventful ultrasound guided vacuum assisted core biopsy. The patient was instructed to obtain follow up care and biopsy results from the referring physician. Electronically authenticated by: SEKOU HUMPHRIES Date: 11/03/2023 14:17 Dictated By: Sekou Humphries M.D. Signed By: 11/03/23 1419 DD/ 1417 TD/TT: Jump Roll Operator: Procedure Note Radiology, Radiologist, MD - 11/03/2023 [place] [address] Ultrasound Report Signed Patient: TRAVIS MARTINS MMR#: [id number] : 1940cct:[id number] Age/Sex: 83 / FADM Date: 11/03/23 Loc: US Attending Dr: Wil Ewing M.D. Ordering Physician: Wil Ewing M.D. Date of Service: 11/03/23 Procedure(s): US breast vac bx w/ clip RT Accession Number(s): [id number] cc: Wil Ewing M.D. The [place] [address] Patient Name: TRAVIS MARTINS MRN: [id number] date: 1940 Sex: F Assigned Patient Location: US Current Patient Location: US Accession/Order Number: [id number] Exam Date: 11/03/2023 12:45 Report Date: 11/03/2023 14:17 At the request of: WIL EWING Procedure: US breast vac bx w/ clip RT EXAMINATION: US breast vac bx w/ clip RT HISTORY: right breast mass COMPARISON: No relevant comparison available. TECHNIQUE: After obtaining informed consent, an ultrasound-guided biopsywas performed in the usual sterile manner. FINDINGS: IMAGING: Ultrasound BIOPSY NEEDLE: 13-gauge mammotome vacuum assisted core needle SPECIMEN TYPE, #, LOCATION: 6 samples, 10:00 right breast mass MEDICATION: 3 cc 1% buffered lidocaine superficial. 6 cc 1% bufferedlidocaine with epinephrine deep COMPLICATIONS: None. LABORATORY: OTHER: Negative. US/US breast vac bx w/ clip RT IMPRESSION: Uneventful ultrasound guided vacuum assisted core biopsy. The patient was instructed to obtain follow up care and biopsy results from the referring physician. Electronically authenticated by: SEKOU HUMPHRIES Date: 11/03/2023 14:17 Dictated By: Sekou Humphries M.D. Signed By:11/03/23 1419 DD/ 1417 TD/TT: Jump Roll Operator: Wil Ewing MD IMG XR PROCEDURES Final Result documented in this encounter Visit Diagnoses Not on filedocumented in this encounter Care Teams Bench Scientist Relationship Specialty Start Date End Date Wil Ewing MD [address] [place] [address] PCP - General Family Medicine 06/03/23 documented as of this encounter
--- OUTSIDE RECORDS SUMMARY | 2024-10-18 09:52 | XMS_ITS ---
Author Organization [facility] Address [id number] [address] [place] [address] Care Team Providers Care Stone Rougher Name Role Phone Boone Kidd MD Primary Care Provider [phone] Active Problems Problem Noted Date Diagnosed Date Chemotherapy induced diarrhea 07/22/2024 HER2-positive carcinoma of right breast 11/18/19 24 Right breast cancer with T3 tumor, >5 cm in greatest dimension 11/13/2023 S/P nasal septoplasty 08/30/2020 Epistaxis 08/01/2020 Dyslipidemia 10/21/2019 Iron deficiency anemia 11/26/2018 Coronary artery disease invo lving [place] coronary artery of [place] heart 11/26/2018 History of coronary artery bypass graft x 2 11/05 Cervical spondylosis without myelopathy 04/16/19 18 Overview (04/16/2017): Added automatically from request for surgery [id number] Current Treatment and Therapy Plans OP BREAST UCFLRFYNKE-QUWSBNEGXZK-PZPRFUEODECJS SUBQ* Plan Start Date:11/17/2023 Plan Provider:Topher Cummings MD Linked Problems HER2-positive carcinoma of r ight breast (CMS-HCC)Right breast cancer with T3 tumor, >5 cm in greatest dimension ([facility]-HCC) Treatment Medications Current Day (Day 1 , Cycle 14 - Planned for 10/19/2024) Next Day (Day 1, Cycle 15 - Planned for 11/16/2024) pertuzumab 1,200 mg-trastuzumab 600 yb-hmkiyedczpzq-ovix 30,000 units (PHESGO)pertuzumab 600 mg-trastuzumab 600 fi-sbpslilaplpg-znzq 20,000 units (PHESGO) pertuzumab 600 mg-trastuzumab 600 qr-vaqfdyvcjopg-lmqx 20,000 units (PHESGO) SubQ chemo injection 10 mL pertuzumab 600 mg-trastuzumab 600 ly-nmlpshlqpinq-vbgf 20,000 units (PHESGO) SubQ chemo injection 10 mL Past Treatment and Therapy Plans Lifetime Dose Tracking * Chemical Lifetime Dose Automatic Entry Manual Entr y Fluoroscopy 517 mGy 0 mGy 517 mGy Resolved Problems Problem Noted Date Diagnosed Date Resolved Date Dependence on respirator (ventilator) status 0 10/21/2019 Other chest pain 10/29/2018 10/21/2019 SOB (shortness of breath) 10/29/2018 Unstable angina 10/29/2018 10/21/2019 Abnormal stress test 10/29/2018 020 Abnormal stress ECG 10/29/2018 10/21/19 20 Overview (11/01/2018): Added automatically from request for surgery [id number]
--- OUTSIDE RECORDS SUMMARY | 2024-10-18 09:52 | XMS_ITS | Encounter Summary ---
Author Organization [facility] Address [address] [place] [address] Care Team Providers Care Retinal Angiographer Name Role Phone Boone Kidd MD Primary Care Provider [phone] Encounter Details Date Type Department Care Team (Late Contact Info) Description 10/27/2023 Clinisync Result Encounter [facility] External Department Unsolicited Boone Kidd MD [address] [place] [address] Social History Tobacco Use Types [...] 12/12/2024 10:45 AM EDT Office Visit [facility] [address] [place] [address] Boone Kidd MD [address] [place] [address] 03/16/2025 1:00 PM EST Office Visit [facility] [address] [place] [address] Boone Kidd MD [address] [place] [address] documented as of this encounter Procedures Procedure Name Priority Date/Time Associated Diagnosis Comments BI US BREAST LIMITED RIGHT 10/27/2023 2:52 PM EDT documented in this encounter Results * Right breast US limited (10/27/2023 2:52 PM EDT) Anatomical Region Laterality Modality Breast Right Ultrasound 10/27/2023 2:52 PM EDT Narrative 10/27/2023 2:53 PM EDT [address] [address] Ultrasound Report Signed Patient: TRAVIS MARTINS MR#: [id number] : 1940 Acct:[id number] Age/Sex: 83 / F ADM Date: 10/27/23 Loc: MAMMO Attending Dr: Boone Kidd M.D. Ordering Physician: Boone Kidd M.D. Date of Service: 10/27/23 Procedure(s): US breast RT limited Accession Number(s): [id number] cc: Boone Kidd M.D. Patient Name: TRAVIS MARTINS MR#: [id number] : 1940 Exam Date: 10/27/2023 Ordering Doctor: DR Boone Kidd . RADIOLOGY REPORT PROCEDURE: MM DIAGNOSTIC MAMMO UNILAT RT, 10/27/2023, 13:55 US BREAST RT LIMITED, 10/27/2023, 14:22 COMPARISON: MM TOMOSYNTHESIS SCREENING BI, 10/09/2023. MM TOMOSYNTHESIS SCREENING BI, 01/07/2017. MM TOMOSYNTHESIS SCREENING BI, 08/07/2015. INDICATIONS: Abnormal Mammogram Of Right Breast R92.8 Calculator Name NCI Breast Cancer Risk Assessment Tool 5 Year Breast Cancer Risk Not Reported. Lifetime Breast Cancer Risk Not Reported. Personal Breast Cancer No Personal Ovarian Cancer No Treatments None Family Cancers None LOCATION: The [facility] BREAST COMPOSITION: The breasts are heterogeneously dense,which may obscure small masses. FINDINGS: DIAGNOSTIC CATEGORY 5--HIGHLY SUGGESTIVE OF MALIGNANCY. HIGH PROBABILITY OF MALIGNANCY BASED ON THE FOLLOWING: RIGHT BREAST: Spot magnification views demonstrate an approximately 4.5 cm spiculated mass versus architectural distortion within posterior upper-outer quadrant. Ultrasound evaluation demonstrates a heterogeneous lobular masslike area within the upper-outer quadrant, 10 o'clock position 4.9 cm from the nipple measuring 6.5 x 5.4 x 2.2 cm. ultrasound-guided biopsy is recommended. RECOMMENDATIONS: ULTRASOUND-GUIDED CORE BIOPSY: RIGHT BREAST PLEASE NOTE: A NORMAL MAMMOGRAM DOES NOT EXCLUDE THE POSSIBILITY OF BREAST CANCER. A CLINICALLY SUSPICIOUS PALPABLE LUMP SHOULD BE BIOPSIED. Dictated by: Robert Correa M.D. on 10/27/2023 at 14:37 Approved by: Robert Correa M.D. on 10/27/2023 at 14:52 Dictated By: Robert Correa M.D. Signed By: 10/27/23 1453 DD/ 1452 TD/TT: Stretching Machine Tender Frame: Procedure Note Radiology, Radiologist, MD - 10/27/2023 [place] [address] Ultrasound Report Signed Patient: TRAVIS MARTINS MMR#: [id number] : 1940cct:[id number] Age/Sex: 83 / FADM Date: 10/27/23 Loc: MAMMO Attending Dr: Boone Kidd M.D. Ordering Physician: Boone Kidd M.D. Date of Service: 10/27/23 Procedure(s): US breast RT limited Accession Number(s): [id number] cc: Boone Kidd M.D. Patient Name: TRAVIS MARTINS MR#: [id number] : 1940 Exam Date: 10/27/2023 Ordering Doctor: DR Boone Manuel RADIOLOGY REPORT PROCEDURE: MM DIAGNOSTIC MAMMO UNILAT RT, 10/27/2023, 13:55 US BREAST RT LIMITED, 10/27/2023, 14:22 COMPARISON: MM TOMOSYNTHESIS SCREENING BI, 10/09/2023. MMTOMOSYNTHESIS SCREENING BI, 01/07/2017. MM TOMOSYNTHESIS SCREENING BI, 08/07/2015. INDICATIONS: Abnormal Mammogram Of Right Breast R92.8 Calculator Name NCI Breast Cancer Risk Assessment Tool 5 Year Breast Cancer Risk Not Reported. Lifetime Breast Cancer Risk Not Reported. Personal Breast Cancer No Personal Ovarian Cancer No Treatments None Family Cancers None LOCATION: The [facility] BREAST COMPOSITION: The breasts are heterogeneously dense,which may obscure small masses. FINDINGS: DIAGNOSTIC CATEGORY 5--HIGHLY SUGGESTIVE OF MALIGNANCY. HIGH PROBABILITYOF MALIGNANCY BASED ON THE FOLLOWING: RIGHT BREAST: Spot magnification views demonstrate an approximately 4.5cm spiculated mass versus architectural distortion within posteriorupper-outer quadrant. Ultrasound evaluation demonstrates a heterogeneous lobular masslike area within the upper-outer quadrant, 10 o'clock position 4.9 cm from thenipple measuring 6.5 x 5.4 x 2.2 cm. ultrasound-guided biopsy is recommended. RECOMMENDATIONS: ULTRASOUND-GUIDED CORE BIOPSY: RIGHT BREAST PLEASE NOTE: A NORMAL MAMMOGRAM DOES NOT EXCLUDE THE POSSIBILITY OFBREAST CANCER. A CLINICALLY SUSPICIOUS PALPABLE LUMP SHOULD BE BIOPSIED. Dictated by: Robert Correa M.D. on 10/27/2023 at 14:37 Approved by: Robert Correa M.D. on 10/27/2023 at 14:52 Dictated By: Robert Correa M.D. Signed By:10/27/23 1453 DD/ 1452 TD/TT: Stretching Machine Tender Frame: us Boone Kidd MD IM US PROCEDURES Final Result documented in this encounter Visit Diagnoses Not on filedocumented in this encounter Care Teams Retinal Angiographer Relationship Specialty Start Date End Date Boone Kidd MD [address] [facility] [place] [address] PCP - General Family Medicine 06/03/23 documented as of this encounter
--- OUTSIDE RECORDS SUMMARY | 2024-10-18 09:52 | XMS_ITS | Encounter Summary ---
Author Organization [facility] Address [address] [place] [address] Care Team Providers Care Bottom Ironer Name Role Phone Wil Ewing MD Primary Care Provider [phone] Encounter Details Date Type Department Care Team (Late Contact Info) Description 06/11/2023 Clinisync Result Encounter [facility] External Department Unsolicited Wil Ewing MD [address] [place] [address] Social History Tobacco Use Types [...] Visit [facility] [address] [place] [phone] Wil Ewing MD [address] [place] [address] 03/16/2025 1:00 PM EST Office Visit [facility] [address] [place] [address] Wil Ewing MD [address] [place] [address] documented as of this encounter Procedures Procedure Name Priority Date/Time Associated Diagnosis Comments XR LUMBAR SPINE 2 OR 3V 06/11/2023 7:08 AM EST documented in this encounter Results * XR LUMBAR SPINE 2 OR 3V (06/11/2023 7:08 AM EST) Anatomical Region Laterality Modality Radiographic Maria D ging 06/11/2023 7:08 AM EST Narrative 06/11/2023 7:10 AM EST [address] [address] XRay Report Signed Patient: TRAVIS MARTINS MR#: [id number] : 1940 Acct:[id number] Age/Sex: 83 / F ADM Date: 06/10/23 Loc: RAD Attending Dr: Wil Ewing M.D. Ordering Physician: Wil Ewing M.D. Date of Service: 06/10/23 Procedure(s): XR lumbar spine 2-3V Accession Number(s): [id number] cc: Wil Ewing M.D. [address] [address] Patient Name: TRAVIS MARTINS MRN: [id number] date: 1940 Sex: F Assigned Patient Location: [facility] Current Patient Location: Accession/Order Number: [id number] Exam Date: 06/10/2023 12:12 Report Date: 06/11/2023 07:08 At the request of: WIL EWING Procedure: XR lumbar spine 2-3V EXAMINATION: XR lumbar spine 2-3V HISTORY: Chronic Left Side Low Back Pain, Rheumatoid Arthritis COMPARISON: No relevant comparison available. FINDINGS: BONES: Marked right convex curvature of thoracolumbar spine. Mild grade 1 anterolisthesis of L3 on 4. Left lateral wedging of L2 vertebral body. Multilevel degenerative facet arthropathy and degenerative endplate changes. DISC SPACES: Marked narrowing L1-2, L2-3, L5-S1. Moderate narrowing at remaining levels. PARASPINOUS: Marked atherosclerotic disease of iliac arteries. OTHER: Negative. XR/XR lumbar spine 2-3V IMPRESSION: 1. No appreciable acute abnormality; no prior studies for comparison. 2. Marked degenerative changes and scoliosis of lower thoracic and lumbar spine. Electronically authenticated by: ROBERT CORREA Date: 06/11/2023 07:08 Dictated By: Robert Correa M.D. Signed By: 06/11/23709 DD/ 7 TD/TT: Night Monitor: Procedure Note Radiology, Radiologist, - 06/11/2023 [place] [address] XRay Report Signed Patient: TRAVIS MARTINS MMR#: [id number] : 1940cct:[id number] Age/Sex: 83 / FADM Date: 06/10/23 Loc: [facility] Attending Dr: Wil Ewing M.D. Ordering Physician: Wil Ewing M.D. Date of Service: 06/10/23 Procedure(s): XR lumbar spine 2-3V Accession Number(s): [id number] cc: Wil Ewing M.D. [address] [place] [address] Patient Name: TRAVIS MARTINS MRN: [id number] date: 1940 Sex: F Assigned Patient Location: [facility] Current Patient Location: Accession/Order Number: [id number] Exam Date: 06/10/2023 12:12 Report Date: 06/11/2023 07:08 At the request of: WIL EWING Procedure: XR lumbar spine 2-3V EXAMINATION: XR lumbar spine 2-3V HISTORY: Chronic Left Side Low Back Pain, Rheumatoid Arthritis COMPARISON: No relevant comparison available. FINDINGS: BONES: Marked right convex curvature of thoracolumbar spine. Mild grade 1 anterolisthesis of L3 on 4. Left lateral wedging of L2 vertebral body. Multilevel degenerative facet arthropathy and degenerative endplatechanges. DISC SPACES: Marked narrowing L1-2, L2-3, L5-S1. Moderate narrowing at remaining levels. PARASPINOUS: Marked atherosclerotic disease of iliac arteries. OTHER: Negative. XR/XR lumbar spine 2-3V IMPRESSION: 1. No appreciable acute abnormality; no prior studies for comparison. 2. Marked degenerative changes and scoliosis of lower thoracic and lumbar spine. Electronically authenticated by: ROBERT CORREA Date: 06/11/2023 07:08 Dictated By: Robert Correa M.D. Signed By:06/11/23709 DD/ 7 TD/TT: Night Monitor: Wil Ewing MD IMG XR PROCEDURES Final Result documented in this encounter Visit Diagnoses Not on filedocumented in this encounter Care Teams Bottom Ironer Relationship Specialty Start Date End Date Wil Ewing MD [address] [place] [address] PCP - General Family Medicine 06/03/23 documented as of this encounter
--- OUTSIDE RECORDS SUMMARY | 2024-10-18 09:52 | XMS_ITS | Encounter Summary ---
Author Organization [facility] Address [address] [place] [address] Care Team Providers Care Timber Bucker Name Role Phone Boone Kidd MD Primary Care Provider [phone] Encounter Details Date Type Department Care Team (Late Contact Info) Description 11/03/2023 Orders Only [facility] [address] [place] [address] Boone Kidd MD [address] [place] [address] Social History Tobacco Use Types Packs/Day Years [...] 12/12/2024 10:45 AM EDT Office Visit [facility] [address] [place] [address] Boone Kidd MD [address] [place] [address] 03/16/2025 1:00 PM EST Office Visit [facility] [address] [place] [address] Boone Kidd MD [address] [place] [address] documented as of this encounter Visit Diagnoses Not on filedocumented in this encounter Care Teams Timber Bucker Relationship Specialty Start Date End Date Boone Kidd MD [address] [place] [address] PCP - General Family Medicine 06/03/23 documented as of this encounter
--- OUTSIDE RECORDS SUMMARY | 2024-10-18 09:52 | XMS_ITS | Clinical Summary ---
Author Organization [employer] Address [id number] [address] [place] [address] Care Team Providers Care Craft Manager Name Role Phone Boone Kidd MD Primary Care Provider [phone] Allergies Active Allergy Reactions Criticality Noted Date Comments Amoxicillin Diarrhea 04/10/2023 Medications famotidine (PEPCID) 20 mg tablet Take 1 tablet (20 mg total) by mouth as needed. 3 01/25/2017 Active levothyroxine (SYNTHROID, LEVOTHROID) 25 MCG tablet Take 1 tablet (25 mcg total) by mouth in the morning. 3 01/25/2017 Active calcium carbonate-vitam in D3 (OSCAL 500 + D) 500 mg(1,250mg) -200 units per tablet Take 1 tablet by mouth in the morning. Active aspirin 81 mg Take 1 tablet (81 mg total) by mouth in the morning. 30 tablet 11 Active amLODIPine (NORVASC) 5 mg tablet Take 1 tablet (5 mg total) by mouth in the morning. 1 12/18/2018 Active atorvastatin (LIPITOR) 80 mg tablet Take 1 tablet (80 mg total) by mouth in the morning. 1 12/18/2018 Active alendronate (FOSAMAX) 70 mg tablet Take 1 tablet (70 mg total) by mouth once a week. 1 12/05/2018 Active metoprolol succinate XL (TOPROL XL) 100 mg 24 hr tablet TAKE 1 TABLET BY MOUTH IN THE MORNING. NEED APPT FOR ANY FURTHER REFILLS. 90 tablet 3 01/08/2022 Active leflunomide (ARAVA) 20 mg tablet Take 1 tablet (20 mg total) by mouth in the morning. Active oxybutynin XL (DITROPAN-XL) 10 mg 24 hr tablet Take 1 tablet (10 mg total) by mouth in the morning. 04/10/2023 Active cranberry 500 mg capsule Take by mouth in the morning and before bedtime. Active kxpsbyxw-svdb-O A-calcium &mins (THERAGRAN-M) 9 mg iron-400 mcg tablet Take 1 tablet by mouth in the morning. Active cholecalciferol 1,000 units tablet Take 1 tablet (1,000 Units total) by mouth in the morning. Active acetaminophen (TYLENOL ARTHRITIS) 650 mg 8 hr tablet Take 1 tablet (650 mg total) by mouth every 8 (eight) hours as needed for pain. Active letrozole (FEMARA) 2.5 mg chemo tabletIndicatio ns:Right breast cancer with T3 tumor, >5 cm in greatest dimension (CMS-HCC) Take 1 tablet by mouth daily 90 tablet 3 11/18/2023 Active ciprofloxacin HCl (CIPRO) 500 mg tablet Take 1 tablet (500 mg total) by mouth in the morning and 1 tablet (500 mg total) before bedtime. Active ondansetron (ZOFRAN) 8 mg tablet Take 1 tablet (8 mg total) by mouth every 8 (eight) hours as needed for nausea or vomiting. 30 tablet 2 01/20/2024 Active Active Problems Problem Noted Date Diagnosed Date Chemotherapy induced diarrhea 07/22/2024 HER2-positive carcinoma of right breast 11/18/19 24 Right breast cancer with T3 tumor, >5 cm in greatest dimension 11/13/2023 S/P nasal septoplasty 08/30/2020 Epistaxis 08/01/2020 Dyslipidemia 10/21/2019 Iron deficiency anemia 11/26/2018 Coronary artery disease invo lving ewiiaapaayp coronary artery of ewiiaapaayp heart 11/26/2018 History of coronary artery bypass graft x 2 11/05 Cervical spondylosis without myelopathy 04/16/19 18 Overview (04/16/2017): Added automatically from request for surgery [id number] Resolved Problems Problem Noted Date Diagnosed Date Resolved Date Dependence on respirator (ventilator) status 0 10/21/2019 Other chest pain 10/29/2018 10/21/2019 SOB (shortness of breath) 10/29/2018 Unstable angina 10/29/2018 10/21/2019 Abnormal stress test 10/29/2018 020 Abnormal stress ECG 10/29/2018 10/21/19 20 Overview (11/01/2018): Added automatically from request for surgery [id number] Encounters Date Type Department Care Team Description 10/12/2024 Orders Only [facility] Hematology Oncology, A Department of [facility] [address] [place] [address] Topher Cummings MD 09/21/2024 10:30 AM EDT Infusion Carey Hernandez [facility] - Medical Oncology [address] [place] [phone] HER2-positive carcinoma of right breast (CMS-HCC) (Primary Dx); Right breast cancer with T3 tumor, >5 cm in greatest dimension (CMS-HCC) 09/20/2024 Travel 08/24/2024 10:30 AM EDT Infusion Carey Hernandez [facility] - Medical Oncology [address] [place] [phone] HER2-positive carcinoma of right breast (CMS-HCC) (Primary Dx); Right breast cancer with T3 tumor, >5 cm in greatest dimension (CMS-HCC); Encounter for monitoring cardiotoxic drug therapy; Chemotherapy induced diarrhea 08/23/2024 Travel 07/27/2024 10:30 AM EDT Infusion Carey Hernandez [facility] - Medical Oncology [address] [place] [phone] HER2-positive carcinoma of right breast ([facility]-HCC) (Primary Dx); Right breast cancer with T3 tumor, >5 cm in greatest dimension (CMS-HCC) 07/26/2024 10:00 AM EDT - 07/26/2024 11:59 PM EDT Hospital Encounter [facility] - Lab [address] [place] [phone] Rheumatoid arthritis with rheumatoid factor of multiple sites without organ or systems involvement (CMS-HCC); Other tank terminal gauger (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; Right breast cancer with T3 tumor, >5 cm in greatest dimension (CMS-HCC); HER2-positive carcinoma of right breast (CMS-HCC); Encounter for monitoring cardiotoxic drug therapy Discharge Disposition: Still a Patient 07/26/2024 Travel 07/22/2024 11:00 AM EDT Office Visit Carey Pereira [facility] - Medical Oncology [address] [place] [phone] Topher Cummings MD Right breast cancer with T3 tumor, >5 cm in greatest dimension (CMS-HCC) (Primary Dx); HER2-positive carcinoma of right breast (CMS-HCC); Chemotherapy induced diarrhea 07/22/2024 Documentation [facility] [address] [place] [phone] Alvarez Cullen RN 07/22/2024 Orders Only [facility] Medical Oncology [address] [place] [phone] Topher Cummings MD 07/22/2024 Travel from Last 3 Months Immunizations Immunization Administration Dates Next Due COVID-19, mRNA, LNP-S, PF, 100mcg/0.5mL Dose ,04/27/2020 Family History Medical History Relation Name Comments Diabetes Daughter Hypertension Daughter Cancer Father Esophageal Heart disease Mother Hypertension Mother Thyroid disease Mother Breast cancer Neg Hx Relation Name Status Comments Daughter Father Mother Social History Tobacco Use Types Packs/Day Years Used Date Smoking Tobacco: Never Smokeless Tobacco: Never Tobacco Cessation:Counseling Given: Not Answered Alcohol Use Standard Drinks/Week Comments Yes 0 (1 standard drink = 0.6 oz pur e alcohol) rarely Social Connection and Isolat ion Panel [NHANES] Answer Date Recorded Frequency of Communication w ith Friends and Family More than three times a week 11/25/2018 Frequency of Social Gatherin gs with Friends and Family Twice a week 11/25/2018 Attends Alevism Services More than 4 times per year 11/25/2018 Active Member of Clubs or Organizations No 11/25/2018 Attends Club or Organization Meetings Never 11/25/2018 Marital Status 11/25/2018 AUDIT-C Answer Date Recorded Frequency of Alcohol Consumption Never 11/25/2018 Average Number of Drinks Patient declined 2018 Frequency of Binge Drinking Never 11/05 Overall Financial Resource Strain (CARDIA) Answe r Date Recorded Difficulty of Paying Living Expenses Not hard at all 11/25/2018 PHQ-2 Answer Date Recorded Total Score 0 01/07/2021 [facility] - Occupational Stress Questionnaire Answer Date Recorded Feeling of Stress To some extent 11/25/2018 Exercise Vital Sign Answer Date Recorde d Days of Exercise per Week 0 days 2018 Minutes of Exercise per Session 0 min 11/25/2018 PRAPARE - Transportation Answer Date Re corded Lack of Transportation (Medical) No 11/25/2018 Lack of Transportation (Non-Medical) No 11/25/2018 Childcare Answer Date Recorded Childcare No 11/25/2018 Employment Answer Date Recorded Employment No 11/25/2018 Hunger Screening Answer Date Recorded Within the past 12 months we worried whether our food would run out before we got money to buy more. Never True 12/30/2023 Within the past 12 months th e food we bought just didn't last and we didn't have money to get more. Never True 12/30/2023 Purpose - Life Answer Date Recorded Purpose and direction in life Unknown Education Answer Date Recorded What is the highest level of school you have completed or the highest degree you have received? 12th grade 11/25/2018 Comments No Sex and Gender Information Value Date Recorded Sex Assigned at Female 11/15/2018 7:25 AM EDT Legal Sex Female 11:22 AM EDT Gender Identity Not on file Sexual Orientation Not on file Last Filed Vital Signs Vital Sign Reading Time Taken Comments Blood Pressure 140/68 09/21/2024 10:44 AM EDT Pulse 55 09/21/2024 10:44 AM EDT Temperature 36.7 C (98 F) 09/21/2024 10:44 AM EDT Respiratory Rate 16 09/21/2024 10:44 AM EDT Oxygen Saturation 96% 09/21/2024 10:44 AM EDT Inhaled Oxygen Concentration - - Weight 44.5 kg (98 lb) 09/21/2024 10:44 AM EDT Height 147.3 cm (4' 9.99 ) 09/21/2024 10:44 AM E DT Body Mass Index 20.49 09/21/2024 10:44 AM EDT Plan of Treatment Upcoming Encounters Date Type Department Care Team (Late st Contact Info) Description 10/18/2024 10:00 AM EDT Lab [facility] - Lab [address] [place] [address] 10/19/2024 10:30 AM EDT Infusion Carey [facility]reira [place] [facility] - Medical Oncology [address] [place] [phone] 10/28/2024 10:45 AM EDT Office Visit Carey Hernandez [facility] - Medical Oncology [address] [place] [phone] Topher Cummings MD [address] [place] [address] [address] [place] [phone] Health Maintenance Due Date Last Done Comments Depression Screening 1952 DTaP,Tdap and Td Vaccines (1 - Tdap) 1959 Zoster (Shingles) Vaccine (2 of 2) 02/17/2020 12/23/2019, 2011 COVID-19 Vaccine (7 - Modern a risk season) 2024 02/19/2024, 01/28/2023, 02/21/2022, Additional history exists Influenza Vaccine 12/05/2024 02/05/2024, , 12/18/2020, Additional history exists Fall Risk Screening 09/21/2025 09/21/2024 Tobacco Screening 09/21/2025 09/21/2024 Medical Devices Not on file Procedures Procedure Name Priority Date/Time Associated Diagnosis Comments THYROID PROFILE INCLUDES TSH FT4 Routine 09/20/2024 10:53 AM EDT Hyperlipidemia, unspecified Hypothyroidism, unspecified LIPID PROFILE Routine 09/20/2024 10:53 AM EDT Hyperlipidemia, unspecified Hypothyroidism, unspecified ERYTHROCYTE SEDIMENTATION RATE (ESR) Routine 09/20/2024 10:49 AM EDT Rheumatoid arthritis without rheumatoid factor, multiple sites (CMS-HCC) Other tank terminal gauger (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 COMPREHENSIVE METABOLIC PANEL Routine 09/20/2024 10:49 AM EDT Right breast cancer with T3 tumor, >5 cm in greatest dimension (CMS-HCC) HER2-positive carcinoma of right breast (CMS-HCC) Encounter for monitoring cardiotoxic drug therapy CBC WITH AUTO DIFFERENTIAL Routine 09/20/2024 10:49 AM EDT Right breast cancer with T3 tumor, >5 cm in greatest dimension (CMS-HCC) HER2-positive carcinoma of right breast (CMS-HCC) Encounter for monitoring cardiotoxic drug therapy COMPREHENSIVE METABOLIC PANEL Routine 08/23/2024 11:06 AM EDT Right breast cancer with T3 tumor, >5 cm in greatest dimension (CMS-HCC) HER2-positive carcinoma of right breast (CMS-HCC) Encounter for monitoring cardiotoxic drug therapy CBC WITH AUTO DIFFERENTIAL Routine 08/23/2024 11:06 AM EDT Right breast cancer with T3 tumor, >5 cm in greatest dimension (CMS-HCC) HER2-positive carcinoma of right breast (CMS-HCC) Encounter for monitoring cardiotoxic drug therapy COMPREHENSIVE METABOLIC PANEL Routine 07/26/2024 11:14 AM EDT Right breast cancer with T3 tumor, >5 cm in greatest dimension (CMS-HCC) HER2-positive carcinoma of right breast (CMS-HCC) Encounter for monitoring cardiotoxic drug therapy ERYTHROCYTE SEDIMENTATION RATE (ESR) Routine 07/26/2024 11:14 AM EDT Rheumatoid arthritis with rheumatoid factor of multiple sites without organ or systems involvement (CMS-HCC) Other shelter (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 CBC WITH AUTO DIFFERENTIAL Routine 07/26/2024 11:14 AM EDT Rheumatoid arthritis with rheumatoid factor of multiple sites without organ or systems involvement (CMS-HCC) Other shelter (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 LIVER PANEL Routine 07/26/2024 11:14 AM EDT Rheumatoid arthritis with rheumatoid factor of multiple sites without organ or systems involvement (CMS-HCC) Other tank terminal gauger (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 from Last 3 Months Results * (ABNORMAL) Thyroid profile includes TSH FT4 (09/20/2024 10:53 AM EDT) FREE T4 0.85 0.61 - 1.60 ng/dL 09/20/2024 7:18 PM EDT [facility] TSH 6.13(H) 0.49 - 4.67 uIU/mL 09/20/2024 7:18 PM EDT [facility] Blood Venous blood / Unknown Venipuncture / Unknown 09/20/2024 10:53 AM EDT 09/20/2024 10:53 AM EDT us Boone Kidd MD LAB BLOOD ORDERABLES Final Resul t [facility] [address] [place] [address], * (ABNORMAL) Lipid profile (09/20/2024 10:53 AM EDT) CHOLESTEROL 106(L) 150 - 200 mg/dL 09/20/2024 7:08 PM EDT [facility] TRIGLYCERIDE 109 27 - 150 mg/dL 09/20/2024 7:08 PM EDT [facility] HDL CHOLESTEROL 45 >39 mg/dL 7:08 PM EDT [facility] Comment: HDL <40 mg/dL - High Risk HDL > or = 40mg/dL- Desirable HDL >60 mg/dL - Negative Risk LDL (CALC) 39 <130 mg/dL 09/20/2024 7:08 PM EDT [facility] Comment: LDL <100 mg/dL - Desirable LDL >160 mg/dL - High Risk CHOLESTEROL:HDL 2.4 1.0 - 5.0 7:08 PM EDT [facility] VERY LOW LIPOPROTEIN 22 0 - 30 mg/dL 09/20/2024 7:08 PM EDT [facility] Blood Venous blood / Unknown Venipuncture / Unknown 09/20/2024 10:53 AM EDT 09/20/2024 10:53 AM EDT Boone Kidd MD LAB BLOOD ORDERABLES Final Resul t Performing Organization Address City/[facility]/ZIP Co de Phone Number [facility] [address] [place] [address], * Erythrocyte Sedimentation Rate (ESR) (09/20/2024 10:49 AM EDT) Only the most recent of2 resultswithin the time period is included. ESR, Erythrocyte Sedimentation Rate 4 0 - 30 mm/h 09/20/2024 6:29 PM EDT [facility] Blood Venous blood / Unknown Venipuncture / Unknown 09/20/2024 10:49 AM EDT 09/20/2024 10:49 AM EDT Rosie Pedroza CONTROLLER REPAIRER AND TESTER-GRAIN PACKER LAB BLOOD ORDERABLES Fi nal Result Performing Organization Address City/[facility]/ZIP Co de Phone Number [facility] [address] [place] [address], * CBC auto differential (09/20/2024 10:49 AM EDT) Only the most recent of3 resultswithin the time period is included. WBC 6.6 4 - 11 x10E9/L 09/20/2024 6:25 PM EDT [facility] RBC Count 4.18 3.8 - 5.2 X10E12/L 09/20/2024 6:25 PM EDT [facility] Hemoglobin 13.0 11.7 - 15.5 g/dL 09/20/2024 6:25 PM EDT [facility] Hematocrit 38.5 35 - 47 % 09/20/2024 6:25 PM EDT [facility] MCV 92 80 - 100 fL 09/20/2024 6:25 PM EDT [facility] MCH 31.0 27 - 34 pg 09/20/2024 6:25 PM EDT [facility] MCHC 33.7 32 - 36 g/dL 09/20/2024 6:25 PM EDT [facility] RDW 14.6 11.5 - 15 % 09/20/2024 6:25 PM EDT [facility] Platelet Count 314 150 - 450 X10E9/L 09/20/2024 6:25 PM EDT [facility] MPV 9.2 7 - 12 fL 09/20/2024 6:25 PM EDT [facility] Neutrophils % 62.8 % 09/20/2024 6:25 PM EDT [facility] Lymphocytes % 20.6 % 09/20/2024 6:25 PM EDT [facility] Monocytes % 9.9 % 09/20/2024 6:25 PM EDT [facility] Eosinophils % 4.8 % 09/20/2024 6:25 PM EDT [facility] Basophils % 1.9 % 09/20/2024 6:25 PM EDT [facility] Neutrophils Absolute (A) 4.1 1.5 - 6.6 10*3/uL 09/20/2024 6:25 PM EDT [facility] Lymphocytes Absolute 1.4 1.0 - 3.5 10*3/uL 09/20/2024 6:25 PM EDT [facility] Monocytes Absolute 0.7 0.0 - 0.9 10*3/uL 09/20/2024 6:25 PM EDT [facility] Eosinophils Absolute 0.3 0.0 - 0.4 10*3/uL 09/20/2024 6:25 PM EDT [facility] Basophils Absolute 0.1 0.0 - 0.2 10*3/uL 09/20/2024 6:25 PM EDT [facility] Differential Type AUTOMATED DIFFERENTIAL 09/20/2024 6:25 PM EDT [facility] Blood Venipuncture / Unknown 09/20/2024 10:49 AM EDT 09/20/2024 10:49 AM EDT us Topher Cummings MD LAB BLOOD ORDERABLES Final Resul t [facility] [address] [place] [address], [place] [phone] * Comprehensive metabolic panel (09/20/2024 10:49 AM EDT) Only the most recent of3 resultswithin the time period is included. SODIUM 141 134 - 146 mmol/L 09/20/2024 7:10 PM EDT [facility] POTASSIUM 3.7 3.5 - 5.0 mmol/L 09/20/2024 7:10 PM EDT [facility] CHLORIDE 106 98 - 109 mmol/L 09/20/2024 7:10 PM EDT [facility] CARBON DIOXIDE 25 22 - 32 mmol/L 09/20/2024 7:10 PM EDT [facility] ANION GAP 10 5 - 15 mmol/L 09/20/2024 7:10 PM EDT [facility] BLOOD UREA NITROGEN 16 5 - 27 mg/dL 09/20/2024 7:10 PM EDT [facility] CREATININE 0.75 0.40 - 1.00 mg/dL 09/20/2024 7:10 PM EDT [facility] Comment:METHOD TRACEABLE TO IDMS STANDARD GLUCOSE 94 65 - 99 mg/dL 09/20/2024 7:10 PM EDT [facility] CALCIUM 9.6 8.5 - 10.5 mg/dL 09/20/2024 7:10 PM EDT [facility] TOTAL PROTEIN 6.2 6.0 - 8.0 g/dL 09/20/2024 7:10 PM EDT [facility] ALBUMIN 3.7 3.2 - 5.3 g/dL 09/20/2024 7:10 PM EDT [facility] ALKALINE PHOSPHATASE 95 39 - 130 U/L 09/20/2024 7:10 PM EDT [facility] AST 28 <=41 U/L 09/20/2024 7:10 PM EDT [facility] ALT 11 <=31 U/L 09/20/2024 7:10 PM EDT [facility] BILIRUBIN,TOTAL 0.4 0.3 - 1.2 mg/dL 09/20/2024 7:10 PM EDT [facility] EGFR Non-Race Dependent 78 >=60 ml/min/1.7 3sq.m 09/20/2024 7:10 PM EDT [facility] Comment: Reported eGFR is based on the CKD-EPI 2020 equation that does not use a race coefficient. Blood Venipuncture / Unknown 09/20/2024 10:49 AM EDT 09/20/2024 10:49 AM EDT us Topher Cummings MD LAB BLOOD ORDERABLES Final Resul t [facility] [address] [place] [address], [place] [phone] * Liver panel (07/26/2024 11:14 AM EDT) Alkaline phosphatase 80 39 - 130 U/L 07/26/2024 5:58 PM EDT [facility] AST 27 0 - 41 U/L 07/26/2024 5:58 PM EDT [facility] ALT 10 0 - 31 U/L 07/26/2024 5:58 PM EDT [facility] Total Bilirubin 0.5 0.3 - 1.2 mg/dL 07/26/2024 5:58 PM EDT [facility] Bilirubin, direct 0.1 0.0 - 0.4 mg/dL 07/26/2024 5:58 PM EDT [facility] Comment: SPECIMEN HEMOLYZED, RESULTS DECREASED SLIGHTLY HEMOLYZED Albumin 3.7 3.2 - 5.3 g/dL 07/26/2024 5:58 PM EDT [facility] Total Protein 6.2 6.0 - 8.0 g/dL 07/26/2024 5:58 PM EDT [facility] PLASMA 07/26/2024 11:1 4 AM EDT 07/26/2024 11:15 AM EDT us Jelani Solares MD LAB BLOOD ORDERABLES Final R esult [employer] [facility] [address] [place] [address] from Last 3 Months Insurance MEDICARE [facility] Advance Directives * Full Code (Latest Code Status on File) Date Activated Date Inactivated Comments 10/29/2018 3:22 PM 11/07/2018 5:21 PM Care Teams Craft Manager Relationship Specialty Start Date End Date Boone Kidd MD PCP - General Family Medicine 02/09/24
--- OUTSIDE RECORDS SUMMARY | 2024-10-18 09:53 | XMS_ITS | Encounter Summary ---
Author Organization [facility] Address [address] [place] [address] Care Team Providers Care Dog Warden Name Role Phone Boone Kidd MD Primary Care Provider [phone] Encounter Details Date Type Department Care Team (Late Contact Info) Description 10/27/2023 Clinisync Result Encounter [facility] Department Unsolicited Boone Kidd MD [address] [place] [address] Social History Tobacco Use Types [...] Visit [facility] [address] [place] [phone] Boone Kidd MD [address] [place] [phone] 03/16/2025 1:00 PM EST Office Visit [facility] [address] [place] [address] Boone Kidd MD [address] [place] [address] documented as of this encounter Procedures Procedure Name Priority Date/Time Associated Diagnosis Comments BI MAMMOGRAM DIAGNOSTIC RIGHT 10/27/2023 2:52 PM EDT documented in this encounter Results * Right diagnostic mammogram (10/27/2023 2:52 PM EDT) Anatomical Region Laterality Modality Breast Right Mammography 10/27/2023 2:52 PM EDT Narrative 10/27/2023 2:53 PM EDT The [address] [address] Mammography Report Signed Patient: TRAVIS MARTINS MR#: [id number] : 1940 Acct:[id number] Age/Sex: 83 / F ADM Date: 10/27/23 Loc: MAMMO Attending Dr: Boone Kdid M.D. Ordering Physician: Boone Kidd M.D. Results: Date of Service: 10/27/23 Follow Up: Procedure(s): MM diagnostic mammo unilat RT Accession Number(s): [id number] cc: Boone Kidd M.D. Patient Name: TRAVIS MARTINS MR#: [id number] : 1940 Exam Date: 10/27/2023 Ordering Doctor: [...] Treatments None Family Cancers None LOCATION: [facility] BREAST COMPOSITION: The breasts are heterogeneously [...] Signed By: 10/27/23 1453 DD/ 1452 TD/TT: Painting Machine Operator: Procedure Note Radiology, Radiologist, MD - 10/27/2023 [place] [address] Mammography Report Signed Patient: TRAVIS MARTINS MMR#: [id number] : 1940cct:[id number] Age/Sex: 83 / FADM Date: 10/27/23 Loc: MAMMO Attending Dr: Boone Kidd M.D. Ordering Physician: Boone Kidd M.D.Results: Date of Service: 10/27/23Follow Up: Procedure(s): MM diagnostic mammo unilat RT Accession Number(s): [id number] cc: Boone Kidd M.D. Patient Name: TRAVIS MARTINS MR#: [id number] : 1940 Exam Date: 10/27/2023 Ordering Doctor: [...] Treatments None Family Cancers None LOCATION: [facility] BREAST COMPOSITION: The breasts are heterogeneously [...] M.D. Signed By:10/27/23 1453 DD/ 1452 TD/TT: Painting Machine Operator: Boone Kidd MD IMG BI PROCEDURES Final Result documented in this encounter Visit Diagnoses Not on filedocumented in this encounter Care Teams Dog Warden Relationship Specialty Start Date End Date Boone Kidd MD [address] [place] [address] PCP - General Family Medicine 06/03/23 documented as of this encounter
--- OUTSIDE RECORDS SUMMARY | 2024-10-18 09:53 | XMS_ITS | Encounter Summary ---
Author Organization [facility] Address [address] [place] [address] Care Team Providers Care Hedge Trimmer Name Role Phone Boone Kidd MD Primary Care Provider [phone] Encounter Details Date Type Department Care Team (Late Contact Info) Description 01/29/2024 Orders Only [facility] [address] [place] [address] Boone Kidd MD [address] [place] [address] Social History Tobacco Use Types Packs/Day Years [...] 12/12/2024 10:45 AM EDT [facility] [address] [place] [address] Boone Kidd MD [address] [place] [address] 03/16/2025 1:00 PM EST Office Visit [facility] [address] [place] [address] Boone Kidd MD [address] [place] [address] documented as of this encounter Visit Diagnoses Not on filedocumented in this encounter Care Teams Hedge Trimmer Relationship Specialty Start Date End Date Boone Kidd MD [address] [place] [address] PCP - General Family Medicine 06/03/23 documented as of this encounter
--- OUTSIDE RECORDS SUMMARY | 2024-10-18 09:53 | XMS_ITS | Encounter Summary ---
Author Organization [facility] Address [address] [place] [address] Care Team Providers Care Merchant Mariner Name Role Phone Boone Kidd MD Primary Care Provider [phone] Encounter Details Date Type Department Care Team (Late Contact Info) Description 11/10/2023 Orders Only [facility] [address] [place] [address] Boone Kidd MD [address] [place] [address] Social History Tobacco Use Types Packs/Day Years [...] 12/12/2024 10:45 AM EDT Office Visit [facility] [address] [place] [address] Boone Kidd MD [address] [place] [address] 03/16/2025 1:00 PM EST Office Visit [facility] [address] [place] [address] Boone Kidd MD [address] [place] [address] documented as of this encounter Procedures Procedure Name Priority Date/Time Associated Diagnosis Comments SCANNED LABS Routine 11/10/2023 11:32 AM EDT documented in this encounter Results * SCANNED LABS (11/10/2023 11:32 AM EDT) Boone Kidd MD LAB CHG PERFORMABLES Final Resul t documented in this encounter Visit Diagnoses Not on filedocumented in this encounter Care Teams Merchant Mariner Relationship Specialty Start Date End Date Boone Kidd MD [address] [place] [address] PCP - General Family Medicine 06/03/23 documented as of this encounter
--- OUTSIDE RECORDS SUMMARY | 2024-10-18 09:53 | XMS_ITS | Encounter Summary ---
Author Organization [facility] Address [address] [place] [address] Care Team Providers Care Counsellors Name Role Phone Boone Kidd MD Primary Care Provider [phone] Encounter Details Date Type Department Care Team (Late Contact Info) Description 09/21/2024 Results Follow-Up [facility] [address] [place] [address] Boone Kidd MD [address] [place] [address] Hypothyroidism ; Hypothyroidism, unspecified Social History Tobacco Use Types Packs/Day Years Used Date Smoking Tobacco: Never Passive Smoke Exposure: Never Smokeless Tobacco: Never Alcohol Use Standard Drinks/Week Comments Never 0 (1 standard drink = 0.6 oz pure alcohol) caffeine intake : 1-2 cups per day PHQ-2 Answer Date Recorded Patient Health Questionnaire-2 Score 0 09/14/2024 Comments Unknown Sex and Gender Information Value Date Recorded Sex Assigned at Not on file Legal Sex Female 7:35 PM EDT Gender Identity Not on file Sexual Orientation Not on file documented as of this encounter Plan of Treatment Upcoming Encounters Date Type Department Care Team (Late st Contact Info) Description 12/12/2024 10:45 AM EDT Office Visit [facility] [address] [place] [address] Boone Kidd MD [address] [place] [address] 03/16/2025 1:00 PM EST Office Visit [facility] [address] [place] [address] Boone Kidd MD [address] [place] [address] documented as of this encounter Visit Diagnoses Diagnosis Hypothyroidism Unspecified hypothyroidism Hypothyroidism, unspecified documented in this encounter Additional Health Concerns Assessment Noted Time PHQ-9 Depression Total Score: 1 09/15/19 25 1:00 PM EDT documented as of this encounter Care Teams Counsellors Relationship Specialty Start Date End Date Boone Kidd MD [address] [place] [address] PCP - General Family Medicine 06/03/23 documented as of this encounter
--- OUTSIDE RECORDS SUMMARY | 2024-10-18 09:53 | XMS_ITS | Encounter Summary ---
Author Organization [facility] Address [address] [place] [address] Care Team Providers Care Banking Services Clerk Name Role Phone Boone Kidd MD Primary Care Provider [phone] Encounter Details Date Type Department Care Team (Late Contact Info) Description 07/11/2024 Orders Only [facility] [address] [place] [address] Boone Kidd MD [address] [place] [address] Social History Tobacco Use Types Packs/Day Years [...] 12/12/2024 10:45 AM EDT [facility] [address] [place] [address] Boone Kidd MD [address] [place] [address] 03/16/2025 1:00 PM EST Office Visit [facility] [address] [place] [address] Boone Kidd MD [address] [place] [address] documented as of this encounter Procedures Procedure Name Priority Date/Time Associated Diagnosis Comments EC ECHOCARDIOGRAM LIMITED 2 D M MODE Routine 07/11/2024 11:25 AM EDT documented in this encounter Results * EC ECHOCARDIOGRAM LIMITED 2 D M MODE (07/11/2024 11:25 AM EDT) Anatomical Region Laterality Modality Radiographic Maria D ging Boone Kidd MD IMG XR PROCEDURES Final Result documented in this encounter Visit Diagnoses Not on filedocumented in this encounter Care Teams Banking Services Clerk Relationship Specialty Start Date End Date Boone Kidd MD [address] [place] [address] PCP - General Family Medicine 06/03/23 documented as of this encounter
--- OUTSIDE RECORDS SUMMARY | 2024-10-18 09:53 | XMS_ITS | Encounter Summary ---
Author Organization [facility] Address [address] [place] [address] Care Team Providers Care Restaurant Delivery Driver Name Role Phone Boone Kidd MD Primary Care Provider [phone] Encounter Details Date Type Department Care Team (Late Contact Info) Description 05/10/2024 Orders Only [facility] [address] [place] [address] Boone Kidd MD [address] [place] [address] Social History Tobacco Use Types Packs/Day Years [...] 12/12/2024 10:45 AM EDT [facility] [address] [place] [address] Boone Kidd MD [address] [place] [address] 03/16/2025 1:00 PM EST Office Visit [facility] [address] [place] [address] Boone Kidd MD [address] [place] [address] documented as of this encounter Procedures Procedure Name Priority Date/Time Associated Diagnosis Comments SCANNED LABS Routine 05/10/2024 11:25 AM EST documented in this encounter Results * SCANNED LABS (05/10/2024 11:25 AM EST) Boone Kidd MD LAB CHG PERFORMABLES Final Resul t documented in this encounter Visit Diagnoses Not on filedocumented in this encounter Care Teams Restaurant Delivery Driver Relationship Specialty Start Date End Date Boone Kidd MD [address] [place] [address] PCP - General Family Medicine 06/03/23 documented as of this encounter
--- OUTSIDE RECORDS SUMMARY | 2024-10-18 09:53 | XMS_ITS | Encounter Summary ---
Author Organization [facility] Address [address] [place] [address] Care Team Providers Care Material Manager Name Role Phone Boone Kidd MD Primary Care Provider [phone] Encounter Details Date Type Department Care Team (Late Contact Info) Description 11/04/2023 Clinisync Result Encounter [facility] External Department Unsolicited Boone Kidd MD [address] [place] [address] Social History Tobacco Use Types [...] Visit [facility] [address] [place] [address] Boone Kidd MD [address] [place] [address] 03/16/2025 1:00 PM EST Office Visit [facility] [address] [place] [address] Boone Kidd MD [address] [place] [address] documented as of this encounter Procedures Procedure Name Priority Date/Time Associated Diagnosis Comments MAMMO POST BIOPSY RIGHT 11/04/2023 3:04 PM EDT documented in this encounter Results * MAMMO POST BIOPSY RIGHT (11/04/2023 3:04 PM EDT) Anatomical Region Laterality Modality Other 11/04/2023 3:04 PM EDT Narrative 11/04/2023 3:05 PM EDT The [address] [address] Mammography Report Signed Patient: TRAVIS MARTINS MR#: [id number] : 1940 Acct:[id number] Age/Sex: 83 / F ADM Date: 11/03/23 Loc: US Attending Dr: Boone Kidd M.D. Ordering Physician: Boone Kidd M.D. Results: Date of Service: 11/03/23 Follow Up: Procedure(s): MM post biopsy RT Accession Number(s): [id number] cc: Boone Kidd M.D. Patient Name: TRAVIS MARTINS MR#: [id number] : 1940 Exam Date: 11/03/2023 Ordering Doctor: DR Boone Kidd . RADIOLOGY REPORT PROCEDURE: MM POST BIOPSY RT COMPARISON: MM DIAGNOSTIC MAMMO UNILAT RT, 10/27/2023. INDICATIONS: right breast mass BREAST COMPOSITION: FINDINGS: Post-Procedure Mammogram for Marker Placement BIOPSY MARKER: A tophat shaped metallic marker has been placed in the targeted location within the upper outer quadrant of the mid right breast. BREAST FINDINGS: Expected postprocedural changes Dictated by: Juan Jones MD on 11/04/2023 at 15:03 Approved by: Juan Jones MD on 11/04/2023 at 15:04 Dictated By: Juan Jones M.D. Signed By: 11/04/23 1505 DD/ 1504 TD/TT: Electronic Systems Security Assessment: Procedure Note Radiology, Radiologist, MD - 11/04/[address] [address] Mammography Report Signed Patient: TRAVIS MARTINS MMR#: [id number] : 1940cct:[id number] Age/Sex: 83 / FADM Date: 11/03/23 Loc: US Attending Dr: Boone Kidd M.D. Ordering Physician: Boone Kidd M.D.Results: Date of Service: 11/03/23Follow Up: Procedure(s): MM post biopsy RT Accession Number(s): [id number] cc: Boone Kidd M.D. Patient Name: TRAVIS MARTINS MR#: [id number] : 1940 Exam Date: 11/03/2023 Ordering Doctor: DR Boone Manuel RADIOLOGY REPORT PROCEDURE: MM POST BIOPSY RT COMPARISON: MM DIAGNOSTIC MAMMO UNILAT RT, 10/27/2023. INDICATIONS: right breast mass BREAST COMPOSITION: FINDINGS: Post-Procedure Mammogram for Marker Placement BIOPSY MARKER: A tophat shaped metallic marker has been placed in the targeted location within the upper outer quadrant of the mid right breast. BREAST FINDINGS: Expected postprocedural changes Dictated by: Juan Jones MD on 11/04/2023 at 15:03 Approved by: Juan Jones MD on 11/04/2023 at 15:04 Dictated By: Juan Jones M.D. Signed By:11/04/23 1505 DD/ 1504 TD/TT: Electronic Systems Security Assessment: Boone Kidd MD [facility] Final Result documented in this encounter Visit Diagnoses Not on filedocumented in this encounter Care Teams Material Manager Relationship Specialty Start Date End Date Boone Kidd MD [address] [place] [address] PCP - General Family Medicine 06/03/23 documented as of this encounter
--- OUTSIDE RECORDS SUMMARY | 2024-10-18 09:53 | XMS_ITS | Encounter Summary ---
Author Organization [facility] Address [address] [place] [address] Care Team Providers Care Mate Fishing Vessel Name Role Phone Boone Kidd MD Primary Care Provider [phone] Encounter Details Date Type Department Care Team (Late st Contact Info) Description 03/21/2024 Clinisync Result Encounter [facility] External Department Unsolicited Provider, Generic External Data Social History Tobacco Use Types Packs/Day Years [...] 12/12/2024 10:45 AM EDT Office Visit [facility] [address] [place] [address] Boone Kidd MD [address] [place] [address] 03/16/2025 1:00 PM EST Office Visit [facility] [address] [place] [address] Boone Kidd MD [address] [place] [address] documented as of this encounter Procedures Procedure Name Priority Date/Time Associated Diagnosis Comments BI US BREAST LIMITED RIGHT 03/21/2024 10:58 AM EST documented in this encounter Results * Right breast US limited (03/21/2024 10:58 AM EST) Anatomical Region Laterality Modality Breast Right Ultrasound 03/21/2024 10:5 8 AM EST Narrative 03/21/2024 10:59 AM EST The [address] [address] Ultrasound Report Signed Patient: TRAVIS MARTINS MR#: [id number] : 1940 Acct:[id number] Age/Sex: 83 / F ADM Date: 03/21/24 Loc: US Attending Dr: WILL CUADRA Ordering Physician: WILL CUADRA Date of Service: 03/21/24 Procedure(s): US breast RT limited Accession Number(s): [id number] cc: Boone Kidd M.D.; WILL CUADRA Patient Name: TRAVIS MARTINS MR#: [id number] : 1940 Exam Date: 03/21/2024 Ordering Doctor: DR. WILL CUADRA M.D. RADIOLOGY REPORT PROCEDURE: US BREAST RT LIMITED COMPARISON: US BREAST RT LIMITED, 10/27/2023. 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 FINDINGS: DIAGNOSTIC CATEGORY 6--KNOWN BIOPSY PROVEN MALIGNANCY: RIGHT BREAST Again demonstrated in the 10 o'clock position the right breast is a focal heterogeneous vascular mass, decreased in size currently measuring 5.1 x 2.1 x 1.8 cm. RECOMMENDATIONS: CLINICAL EVALUATION. PLEASE NOTE: A NORMAL ULTRASOUND EXAMINATION DOES NOT EXCLUDE THE POSSIBILITY OF BREAST CANCER. A CLINICALLY SUSPICIOUS PALPABLE LUMP SHOULD BE BIOPSIED. Dictated by: Juan Jones MD on 03/21/2024 at 10:56 Approved by: Juan Jones MD on 03/21/2024 at 10:58 Dictated By: Juan Jones M.D. Signed By: 03/21/249 DD/ 57 TD/TT: Landscape Engineer: Procedure Note Radiology, Radiologist, - 03/21/[address] [address] Ultrasound Report Signed Patient: TRAVIS MARTINS MMR#: [id number] : 1940cct:[id number] Age/Sex: 83 / FADM Date: 03/21/24 Loc: US Attending Dr: WILL CUADRA Ordering Physician: WILL CUADRA Date of Service: 03/21/24 Procedure(s): US breast RT limited Accession Number(s): [id number] cc: Boone Kidd M.D.; WILL CUADRA Patient Name: TRAVIS MARTINS MR#: [id number] : 1940 Exam Date: 03/21/2024 Ordering Doctor: DR. WILL CUADRA M.D. RADIOLOGY REPORT PROCEDURE: US BREAST RT LIMITED COMPARISON: US BREAST RT LIMITED, 10/27/2023. 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 FINDINGS: DIAGNOSTIC CATEGORY 6--KNOWN BIOPSY PROVEN MALIGNANCY: RIGHT BREAST Again demonstrated in the 10 o'clock position the right breast is afocal heterogeneous vascular mass, decreased in size currently measuring 5.1 x2.1 x 1.8 cm. RECOMMENDATIONS: CLINICAL EVALUATION. PLEASE NOTE: A NORMAL ULTRASOUND EXAMINATION DOES NOT EXCLUDE THEPOSSIBILITY OF BREAST CANCER. A CLINICALLY SUSPICIOUS PALPABLE LUMP SHOULD BEBIOPSIED. Dictated by: Juan Jones MD on 03/21/2024 at 10:56 Approved by: Juan Jones MD on 03/21/2024 at 10:58 Dictated By: Juan Jones M.D. Signed By:03/21/241058 DD/ 57 TD/TT: Landscape Engineer: us Generic External Data Provider IMG US PROCEDURES Final Result documented in this encounter Visit Diagnoses Not on filedocumented in this encounter Care Teams Mate Fishing Vessel Relationship Specialty Start Date End Date Boone Kidd MD [address] [place] [address] PCP - General Family Medicine 06/03/23 documented as of this encounter
--- OUTSIDE RECORDS SUMMARY | 2024-10-18 09:53 | XMS_ITS | Encounter Summary ---
Author Organization [facility] tem Address [id number] [address] [place] [address] Care Team Providers Care Garbage Pick Up Man Name Role Phone Boone Kidd MD Primary Care Provider [phone] Encounter Details Date Type Department Care Team (Late st Contact Info) Description 10/12/2024 Orders Only [facility] Hematology Oncology, A Department of [address] [address] [place] [address] [place] [address] [address] [place] [address] Social History Tobacco Use Types Packs/Day Years Used Date Smoking Tobacco: Never Smokeless Tobacco: Never Alcohol Use Standard Drinks/Week Comments Yes 0 (1 standard drink = 0.6 oz pur e alcohol) rarely Social Connection and Isolat ion Panel [NHANES] Answer Date Recorded Frequency of Communication w ith Friends and Family More than three times a week 11/25/2018 Frequency of Social Gatherin gs with Friends and Family Twice a week 11/25/2018 Attends Denominational Services More than 4 times per year [...] Answer Date Recorded Total Score 0 01/07/2021 [facility] [place] of Occupat ional Health - Occupational Stress [...] Info) Description 10/18/2024 10:00 AM EDT Lab [facility] - Lab [address] [place] [address] 10/19/2024 10:30 AM EDT Infusion Carey Hernandez [facility] - Medical Oncology [address] [place] [phone] 10/28/2024 10:45 AM EDT Office Visit aCrey Hernandez [facility] - Medical Oncology [address] [place] [address] Topher Cummings MD [address] [place] [address] [address] [place] [address] documented as of this encounter Visit Diagnoses Not on filedocumented in this encounter Additional Health Concerns Assessment Noted Time PHQ-9 Depression Total Score: 0 01/08/20 21 4:04 PM EDT documented as of this encounter Care Teams Garbage Pick Up Man Relationship Specialty Start Date End Date Boone Kidd MD PCP - General Family Medicine 02/09/24 documented as of this encounter
--- OUTSIDE RECORDS SUMMARY | 2024-10-18 09:53 | XMS_ITS | Encounter Summary ---
Author Organization [facility] Address [address] [place] [address] Care Team Providers Care Speech Pathology Assistant Name Role Phone Boone Kidd MD Primary Care Provider [phone] Encounter Details Date Type Department Care Team (Late st Contact Info) Description 01/28/2024 Clinisync Result Encounter [facility] External Department Unsolicited [...] 12/12/2024 10:45 AM EDT Office Visit [facility] [address] [place] [phone] Boone Kidd MD [address] [place] [address] 03/16/2025 1:00 PM EST Office Visit [facility] [address] [place] [phone] Boone Kidd MD [address] [place] [phone] documented as of this encounter Procedures Procedure Name Priority Date/Time Associated Diagnosis Comments CA ECHO DOPPLER COMPLETE 01/28/2024 6:52 PM EDT documented in this encounter Results * CA ECHO DOPPLER COMPLETE (01/28/2024 6:52 PM EDT) Anatomical Region Laterality Modality Other 01/28/2024 6:52 PM EDT Narrative 01/28/2024 6:53 PM EDT [facility] [id number] Cardiology Report Signed Patient: TRAVIS MARTINS MR#: [id number] : 1940 Acct:[id number] Age/Sex: 83 / F ADM Date: 01/28/24 Loc: CARD Attending Dr: WILL CUADRA Ordering Physician: WILL CUADRA Date of Service: 01/28/24 Procedure(s): CA echo doppler complete Accession Number(s): [id number] cc: Boone Kidd M.D.; WILL CUADRA Patient Name: TRAVIS MARTINS MR#: [id number] : 1940 Exam Date: 01/28/2024 Ordering Doctor: DR. WILL CUADRA M.D. ECHOCARDIOGRAM REPORT PROCEDURE: CA ECHO DOPPLER COMPLETE INDICATIONS: HER2-positive CA right breast, Cardiotoxic drug theraphy COMPARISON: None. DESCRIPTION: COMPLETE ECHOCARDIOGRAM Real-time transthoracic echocardiography with 2D, M-mode, spectral and color flow Doppler performed. QUALITY: Technical quality was good. LEFT VENTRICLE: Normal chamber size. Borderline left ventricular hypertrophy. Global left ventricular systolic function is normal. LV EF: Visual estimation of left ventricular ejection fraction is 65-70% DIASTOLIC: Grade II diastolic dysfunction. ATRIAL SEPTUM: LEFT ATRIUM: Moderate dilatation. RIGHT ATRIUM: Moderate dilatation. RIGHT VENTRICLE: Normal chamber size. Normal right ventricular systolic function. TRICUSPID VALVE: Normal mobility and thickness. No stenosis with moderate regurgitation. Moderate pulmonary hypertension. RVSP 46 mmHg MITRAL VALVE: Mildly thickened with normal mobility. No evidence of mitral valve stenosis. There is no mitral annular calcification. Mild mitral regurgitation. AORTIC VALVE: Normal trileaflet appearance. No visible sclerosis. Normal leaflet mobility. No evidence of aortic valve stenosis. Trivial aortic regurgitation. AORTIC ROOT: Normal diameter and appearance. The ascending aorta is normal in size measuring 3.2 cm. PULMONIC VALVE: Normal thickness and mobility. No stenosis. No regurgitation. PERICARDIUM: No evidence of pericardial effusion. IVC: Collapses with inspirations. Normal size. PLEURA: CONCLUSION: 1. Borderline left ventricular hypertrophy with normal systolic function. LVEF is estimated at 65 to 70%. 2. Normal right ventricular size and systolic function. 3. Moderate biatrial dilatation. 4. Grade 2 diastolic dysfunction. 5. Mild mitral and moderate tricuspid regurgitation. 6. Moderately elevated right-sided pressures. RVSP is 46 mmHg. 7. No pericardial effusion. Adult Echocardiography Procedure Report Left Ventricle LVEDD (3.7 - 5.6 cm): 3.42 cm LVESD (2.2 - 4.0 cm): 2.54 cm LVIVS thickness (0.6 - 1.2 cm): 1.02 cm LVPW thickness (0.5 - 1.0 cm): 0.89 cm e': 0.09 m/s E - e': 9.37 LVOT Max Gradient: 2.83 mm[Hg] LVOT Area (cm2): 0.84 m/s Peak Velocity (LVOT): 0.84 m/s Mean Velocity (LVOT): 0.58 m/s LVOT Diameter 1.95 cm Left Ventricular Ejection Fraction: 65-70 % Left Atrium LA Volume Index (2D A2C): 39.36 ml/m2 Left Atrium Systolic Dimension: 2.47 cm Mitral Valve MV E to A Ratio: 0.89 Mitral Valve A-Wave Peak Velocity: 0.98 m/s Mitral Valve E-Wave Peak Velocity: 0.86 m/s Right Ventricle RV Internal Diastolic Dimension: 2.93 cm Aorta AO Root Diam: 2.99 cm Ascending Ao Diam: 3.16 cm Aortic Valve AoV Area (Peak Johan): 2.31 cm2, 2.31 cm2 AoV Area (VTI): 2.39 cm2, 2.39 cm2 Peak Velocity(Antegrade Flow): 1.09 m/s Peak Gradient(Antegrade Flow): 4.71 mm[Hg] Mean Velocity(Antegrade Flow): 0.80 m/s Mean Gradient(Antegrade Flow): 2.84 mm[Hg] Velocity Time Integral: 27.28 cm Tricuspid Valve Peak Velocity (Regurgitant Flow): 3.27 m/s, 3.02 m/s, 3.14 m/s Pulmonic Valve Mean Gradient: 0.79 mm[Hg], 0.97 mm[Hg] Mean Velocity: 0.42 m/s, 0.46 m/s Peak Velocity: 0.64 m/s Peak Gradient: 1.47 mm[Hg], 1.83 mm[Hg] Right Atrium Right Atrium Systolic Pressure: 46.72 ml, 46.72 ml Dictated by: Bobby Moore M.D. on 01/28/2024 at 18:48 Approved by: Bobby Moore M.D. on 01/28/2024 at 18:52 Dictated By: BOBBY MOORE Signed By: 01/28/241852 DD/ 51 TD/TT: Sheltered Workshop Worker: Procedure Note Radiology, Radiologist, MD - 01/28/2024 [place] [address] Cardiology Report Signed Patient: TRAVIS MARTINS MMR#: [id number] : 1940cct:[id number] Age/Sex: 83 / FADM Date: 01/28/24 Loc: CARD Attending Dr: WILL CUADRA Ordering Physician: WILL CUADRA Date of Service: 01/28/24 Procedure(s): CA echo doppler complete Accession Number(s): [id number] cc: Boone Kidd M.D.; WILL CUADRA Patient Name: TRAVIS MARTINS MR#: [id number] : 1940 Exam Date: 01/28/2024 Ordering Doctor: DR. WILL CUADRA M.D. ECHOCARDIOGRAM REPORT PROCEDURE: CA ECHO DOPPLER COMPLETE INDICATIONS: HER2-positive CA right breast, Cardiotoxic drug theraphy COMPARISON: None. DESCRIPTION: COMPLETE ECHOCARDIOGRAM Real-time transthoracic echocardiography with 2D, M-mode, spectral and color flow Dopplerperformed. QUALITY: Technical quality was good. LEFT VENTRICLE: Normal chamber size. Borderline left ventricular hypertrophy. Global left ventricular systolic function is normal. LV EF: Visual estimation of left ventricular ejection fraction is65-70% DIASTOLIC: Grade II diastolic dysfunction. ATRIAL SEPTUM: LEFT ATRIUM: Moderate dilatation. RIGHT ATRIUM: Moderate dilatation. RIGHT VENTRICLE: Normal chamber size. Normal right ventricularsystolic function. TRICUSPID VALVE: Normal mobility and thickness. No stenosis withmoderate regurgitation. Moderate pulmonary hypertension. RVSP 46 mmHg MITRAL VALVE: Mildly thickened with normal mobility. No evidence of mitral valve stenosis. There is no mitral annular calcification. Mildmitral regurgitation. AORTIC VALVE: Normal trileaflet appearance. No visible sclerosis.Normal leaflet mobility. No evidence of aortic valve stenosis. Trivial aortic regurgitation. AORTIC ROOT: Normal diameter and appearance. The ascending aorta is normal in size measuring 3.2 cm. PULMONIC VALVE: Normal thickness and mobility. No stenosis. No regurgitation. PERICARDIUM: No evidence of pericardial effusion. IVC: Collapses with inspirations. Normal size. PLEURA: CONCLUSION: 1. Borderline left ventricular hypertrophy with normal systolic function. LVEF is estimated at 65 to 70%. 2. Normal right ventricular size and systolic function. 3. Moderate biatrial dilatation. 4. Grade 2 diastolic dysfunction. 5. Mild mitral and moderate tricuspid regurgitation. 6. Moderately elevated right-sided pressures. RVSP is 46 mmHg. 7. No pericardial effusion. Adult Echocardiography Procedure Report Left Ventricle LVEDD (3.7 - 5.6 cm): 3.42 cm LVESD (2.2 - 4.0 cm): 2.54 cm LVIVS thickness (0.6 - 1.2 cm): 1.02 cm LVPW thickness (0.5 - 1.0 cm): 0.89 cm e': 0.09 m/s E - e': 9.37 LVOT Max Gradient: 2.83 mm[Hg] LVOT Area (cm2): 0.84 m/s Peak Velocity (LVOT): 0.84 m/s Mean Velocity (LVOT): 0.58 m/s LVOT Diameter 1.95 cm Left Ventricular Ejection Fraction: 65-70 % Left Atrium LA Volume Index (2D A2C): 39.36 ml/m2 Left Atrium Systolic Dimension: 2.47 cm Mitral Valve MV E to A Ratio: 0.89 Mitral Valve A-Wave Peak Velocity: 0.98 m/s Mitral Valve E-Wave Peak Velocity: 0.86 m/s Right Ventricle RV Internal Diastolic Dimension: 2.93 cm Aorta AO Root Diam: 2.99 cm Ascending Ao Diam: 3.16 cm Aortic Valve AoV Area (Peak Johan): 2.31 cm2, 2.31 cm2 AoV Area (VTI): 2.39 cm2, 2.39 cm2 Peak Velocity(Antegrade Flow): 1.09 m/s Peak Gradient(Antegrade Flow): 4.71 mm[Hg] Mean Velocity(Antegrade Flow): 0.80 m/s Mean Gradient(Antegrade Flow): 2.84 mm[Hg] Velocity Time Integral: 27.28 cm Tricuspid Valve Peak Velocity (Regurgitant Flow): 3.27 m/s, 3.02 m/s, 3.14 m/s Pulmonic Valve Mean Gradient: 0.79 mm[Hg], 0.97 mm[Hg] Mean Velocity: 0.42 m/s, 0.46 m/s Peak Velocity: 0.64 m/s Peak Gradient: 1.47 mm[Hg], 1.83 mm[Hg] Right Atrium Right Atrium Systolic Pressure: 46.72 ml, 46.72 ml Dictated by: Bobby Moore M.D. on 01/28/2024 at 18:48 Approved by: Bobby Moore M.D. on 01/28/2024 at 18:52 Dictated By: BOBBY MOORE Signed By:01/28/241852 DD/ 51 TD/TT: Sheltered Workshop Worker: Generic External Data Provider [facility] Final Result documented in this encounter Visit Diagnoses Not on filedocumented in this encounter Care Teams Speech Pathology Assistant Relationship Specialty Start Date End Date Boone Kidd MD [address] [place] [address] PCP - General Family Medicine 06/03/23 documented as of this encounter
--- OUTSIDE RECORDS SUMMARY | 2024-10-18 09:53 | XMS_ITS | Encounter Summary ---
Author Organization [facility] Address [address] [place] [address] Care Team Providers Care Audio Visual Tech Name Role Phone Boone Kidd MD Primary Care Provider [phone] Encounter Details Date Type Department Care Team (Late st Contact Info) Description 12/01/2023 Clinisync Result Encounter [facility] External Department Unsolicited [...] 12/12/2024 10:45 AM EDT Office Visit [facility] [address] [place] [phone] Boone Kidd MD [address] [place] [address] 03/16/2025 1:00 PM EST Office Visit [facility] [address] [place] [phone] Boone Kidd MD [address] [place] [phone] documented as of this encounter Procedures Procedure Name Priority Date/Time Associated Diagnosis Comments CA ECHO DOPPLER COMPLETE 12/01/2023 7:54 PM EDT documented in this encounter Results * CA ECHO DOPPLER COMPLETE (12/01/2023 7:54 PM EDT) Anatomical Region Laterality Modality Other 12/01/2023 7:54 PM EDT Narrative 12/01/2023 7:55 PM EDT [facility] [id number] Cardiology Report Signed Patient: TRAVIS MARTINS MR#: [id number] : 1940 Acct:[id number] Age/Sex: 83 / F ADM Date: 12/01/23 Loc: CARD Attending Dr: WILL CUADRA Ordering Physician: WILL CUADRA Date of Service: 12/01/23 Procedure(s): CA echo doppler complete Accession Number(s): [id number] cc: Boone Kidd M.D.; WILL CUADRA Patient Name: TRAVIS MARTINS MR#: [id number] : 1940 Exam Date: 12/01/2023 Ordering Doctor: DR. WILL CUADRA M.D. ECHOCARDIOGRAM REPORT PROCEDURE: CA ECHO DOPPLER COMPLETE INDICATIONS: Cardiotoxic drug therapy, CABGx2, hypertension COMPARISON: None. DESCRIPTION: COMPLETE ECHOCARDIOGRAM Real-time transthoracic echocardiography with 2D, M-mode, spectral and color flow Doppler performed. QUALITY: Technical quality was good. LEFT VENTRICLE: Normal chamber size. Proximal septal hypertrophy (sigmoid septum). Systolic function is normal. LV EF: Normal left ventricular ejection fraction, (60%). DIASTOLIC: Grade 2 diastolic dysfunction. ATRIAL SEPTUM: Visually appears intact. LEFT ATRIUM: Moderate dilatation. RIGHT ATRIUM: Moderate dilatation. RIGHT VENTRICLE: Normal chamber size. Normal right ventricular systolic function. TRICUSPID VALVE: Normal mobility and thickness. No stenosis with moderate regurgitation. Doppler studies reveal mildly (35-45) elevated right sided pressures. RVSP 43 mmHg MITRAL VALVE: Normal mobility and thickness. No evidence of mitral valve stenosis. There is no mitral annular calcification. Mild to moderate mitral regurgitation. AORTIC VALVE: Normal trileaflet appearance. No visible sclerosis. Normal leaflet mobility. No evidence of aortic valve stenosis. No aortic regurgitation. AORTIC ROOT: Normal diameter and appearance. PULMONIC VALVE: Normal thickness and mobility. No stenosis. Trivial regurgitation. PERICARDIUM: No evidence of pericardial effusion. IVC: Collapses with inspirations. PLEURA: CONCLUSION: 1. Normal left ventricular size with normal systolic function. LVEF is estimated at 60%. 2. Normal right ventricular size and systolic function. 3. Grade 2 diastolic dysfunction. 4. Mild to moderate mitral regurgitation. 5. Moderate tricuspid regurgitation. 6. Moderately elevated right-sided pressures. RVSP is 43 mmHg. 7. No pericardial effusion. Adult Echocardiography Procedure Report Left Ventricle LVEDD (3.7 - 5.6 cm): 3.35 cm LVESD (2.2 - 4.0 cm): 2.55 cm LVIVS thickness (0.6 - 1.2 cm): 1.07 cm LVPW thickness (0.5 - 1.0 cm): 0.91 cm e': 0.08 m/s E - e': 7.29 LVOT Max Gradient: 3.17 mm[Hg] LVOT Area (cm2): 0.89 m/s Peak Velocity (LVOT): 0.89 m/s Mean Velocity (LVOT): 0.60 m/s LVOT Diameter 1.81 cm Left Atrium LA Volume Index (2D A2C): 28.95 ml/m2 Left Atrium Systolic Dimension: 3.66 cm Mitral Valve MV E to A Ratio: 0.79 Mitral Valve A-Wave Peak Velocity: 0.72 m/s Mitral Valve E-Wave Peak Velocity: 0.57 m/s Right Ventricle Aorta AO Root Diam: 3.12 cm Aortic Valve AoV Area (Peak Johan): 1.87 cm2, 1.87 cm2 AoV Area (VTI): 2.04 cm2, 2.04 cm2 Peak Velocity(Antegrade Flow): 1.23 m/s Peak Gradient(Antegrade Flow): 6.04 mm[Hg] Mean Velocity(Antegrade Flow): 0.80 m/s Mean Gradient(Antegrade Flow): 3.04 mm[Hg] Velocity Time Integral: 27.98 cm Tricuspid Valve Peak Velocity (Regurgitant Flow): 3.09 m/s, 3.18 m/s, 2.72 m/s, 2.76 m/s Pulmonic Valve Mean Gradient: 0.60 mm[Hg] Mean Velocity: 0.36 m/s Peak Velocity: 0.56 m/s, 0.49 m/s Peak Gradient: 0.95 mm[Hg], 1.25 mm[Hg] Right Atrium Right Atrium Systolic Pressure: 28.04 ml, 28.04 ml Dictated by: Bobby Moore M.D. on 12/01/2023 at 19:49 Approved by: Bobby Moore M.D. on 12/01/2023 at 19:54 Dictated By: BOBBY MOORE Signed By: 12/01/231954 DD/ 53 TD/TT: Office Cleaner: Procedure Note Radiology, Radiologist, MD - 12/01/2023 [place] [address] Cardiology Report Signed Patient: TRAVIS MARTINS MMR#: [id number] : 1940cct:[id number] Age/Sex: 83 / FADM Date: 12/01/23 Loc: CARD Attending Dr: WILL CUADRA Ordering Physician: WILL CUADRA Date of Service: 12/01/23 Procedure(s): CA echo doppler complete Accession Number(s): [id number] cc: Boone Kidd M.D.; WILL CUADRA Patient Name: TRAVIS MARTINS MR#: [id number] : 1940 Exam Date: 12/01/2023 Ordering Doctor: DR. WILL CUADRA M.D. ECHOCARDIOGRAM REPORT PROCEDURE: CA ECHO DOPPLER COMPLETE INDICATIONS: Cardiotoxic drug therapy, CABGx2, hypertension COMPARISON: None. DESCRIPTION: COMPLETE ECHOCARDIOGRAM Real-time transthoracic echocardiography with 2D, M-mode, spectral and color flow Dopplerperformed. QUALITY: Technical quality was good. LEFT VENTRICLE: Normal chamber size. Proximal septal hypertrophy(sigmoid septum). Systolic function is normal. LV EF: Normal left ventricular ejection fraction, (60%). DIASTOLIC: Grade 2 diastolic dysfunction. ATRIAL SEPTUM: Visually appears intact. LEFT ATRIUM: Moderate dilatation. RIGHT ATRIUM: Moderate dilatation. RIGHT VENTRICLE: Normal chamber size. Normal right ventricularsystolic function. TRICUSPID VALVE: Normal mobility and thickness. No stenosis withmoderate regurgitation. Doppler studies reveal mildly (35-45) elevated right sided pressures. RVSP 43 mmHg MITRAL VALVE: Normal mobility and thickness. No evidence of mitralvalve stenosis. There is no mitral annular calcification. Mild to moderatemitral regurgitation. AORTIC VALVE: Normal trileaflet appearance. No visible sclerosis.Normal leaflet mobility. No evidence of aortic valve stenosis. No aortic regurgitation. AORTIC ROOT: Normal diameter and appearance. PULMONIC VALVE: Normal thickness and mobility. No stenosis. Trivial regurgitation. PERICARDIUM: No evidence of pericardial effusion. IVC: Collapses with inspirations. PLEURA: CONCLUSION: 1. Normal left ventricular size with normal systolic function. LVEF is estimated at 60%. 2. Normal right ventricular size and systolic function. 3. Grade 2 diastolic dysfunction. 4. Mild to moderate mitral regurgitation. 5. Moderate tricuspid regurgitation. 6. Moderately elevated right-sided pressures. RVSP is 43 mmHg. 7. No pericardial effusion. Adult Echocardiography Procedure Report Left Ventricle LVEDD (3.7 - 5.6 cm): 3.35 cm LVESD (2.2 - 4.0 cm): 2.55 cm LVIVS thickness (0.6 - 1.2 cm): 1.07 cm LVPW thickness (0.5 - 1.0 cm): 0.91 cm e': 0.08 m/s E - e': 7.29 LVOT Max Gradient: 3.17 mm[Hg] LVOT Area (cm2): 0.89 m/s Peak Velocity (LVOT): 0.89 m/s Mean Velocity (LVOT): 0.60 m/s LVOT Diameter 1.81 cm Left Atrium LA Volume Index (2D A2C): 28.95 ml/m2 Left Atrium Systolic Dimension: 3.66 cm Mitral Valve MV E to A Ratio: 0.79 Mitral Valve A-Wave Peak Velocity: 0.72 m/s Mitral Valve E-Wave Peak Velocity: 0.57 m/s Right Ventricle Aorta AO Root Diam: 3.12 cm Aortic Valve AoV Area (Peak Johan): 1.87 cm2, 1.87 cm2 AoV Area (VTI): 2.04 cm2, 2.04 cm2 Peak Velocity(Antegrade Flow): 1.23 m/s Peak Gradient(Antegrade Flow): 6.04 mm[Hg] Mean Velocity(Antegrade Flow): 0.80 m/s Mean Gradient(Antegrade Flow): 3.04 mm[Hg] Velocity Time Integral: 27.98 cm Tricuspid Valve Peak Velocity (Regurgitant Flow): 3.09 m/s, 3.18 m/s, 2.72 m/s, 2.76m/s Pulmonic Valve Mean Gradient: 0.60 mm[Hg] Mean Velocity: 0.36 m/s Peak Velocity: 0.56 m/s, 0.49 m/s Peak Gradient: 0.95 mm[Hg], 1.25 mm[Hg] Right Atrium Right Atrium Systolic Pressure: 28.04 ml, 28.04 ml Dictated by: Bobby Moore M.D. on 12/01/2023 at 19:49 Approved by: Bobby Moore M.D. on 12/01/2023 at 19:54 Dictated By: BOBBY MOORE Signed By:12/01/231954 DD/ 53 TD/TT: Office Cleaner: us Generic External Data Provider [facility] Final Result documented in this encounter Visit Diagnoses Not on filedocumented in this encounter Care Teams Audio Visual Tech Relationship Specialty Start Date End Date Boone Kidd MD [address] [place] [address] PCP - General Family Medicine 06/03/23 documented as of this encounter
--- OUTSIDE RECORDS SUMMARY | 2024-10-18 09:53 | XMS_ITS | Clinical Summary ---
Author Organization [facility] Healthcare Address [address] [place] [address] Care Team Providers Care Chiropractic Assistant Name Role Phone Boone Kidd MD Primary Care Provider [phone] Allergies Active Allergy Reactions Criticality Noted Date Comments Amoxicillin Diarrhea 04/10/2023 Medications aspirin 81 MG EC tablet Take 81 mg by mouth in the morning. Active leflunomide (Arava) 20 MG tablet Take 20 mg by mouth in the morning. Active Cranberry 250 MG capsule Take by mouth Active Multiple Vitamin (multivitamin) tablet Take 1 tablet by mouth Daily Active alendronate (Fosamax) 70 MG tabletIndications: Age-related osteoporosis without current pathological fracture TAKE 1 TABLET BY MOUTH ONCE WEEKLY DIRECTED 12 tablet 3 02/11/20 24 Active amLODIPine (Norvasc) 5 MG tabletIndications: Essential (primary) hypertension TAKE 1 TABLET BY MOUTH EVERY DAY 90 tablet 3 02/29/20 24 Active atorvastatin (Lipitor) 80 MG tabletIndications: Mixed hyperlipidemia TAKE 1 TABLET BY MOUTH EVERYDAY AT BEDTIME 90 tablet 3 02/29/20 24 Active letrozole (Femara) 2.5 MG chemo tablet Take 2.5 mg by mouth Daily. Active metoprolol succinate XL (Toprol-XL) 100 MG 24 hr tabletIndications: Essential (primary) hypertension,Benig n essential hypertension TAKE 1 TABLET BY MOUTH EVERY DAY 90 tablet 1 04/28/19 25 Active oxybutynin XL (Ditropan-XL) 10 MG 24 hr tabletIndications: Overactive bladder Take 1 tablet (10 mg) by mouth Daily Do not crush, chew, or split. 90 tablet 3 07/02/19 25 Active FLUoxetine (PROzac) 10 MG capsuleIndications :Major depressive disorder, recurrent, moderate (HCC) TAKE 1 CAPSULE BY MOUTH EVERY DAY 30 capsule 3 08/31/19 25 Active levothyroxine (Synthroid, Levoxyl) 50 MCG tabletIndications: Hypothyroidism,Hyp othyroidism, unspecified Take 1 tablet (50 mcg) by mouth Daily 90 tablet 3 09/22/19 25 Active levothyroxine (Synthroid, Levoxyl) 25 MCG tabletIndications: Hypothyroidism,Hyp othyroidism, unspecified TAKE 1 TABLET BY MOUTH EVERY DAY 90 tablet 3 02/11/20 24 025 Discontinu ed(Reorder ) ciprofloxacin (Cipro) 500 MG tabletIndications: Urinary tract infection without hematuria, site unspecified Take 1 tablet (500 mg) by mouth in the morning and 1 tablet (500 mg) before bedtime. Do all this for 7 days. 14 tablet 09/29/19 25 025 Active Problems Problem Noted Date Diagnosed Date Medicare annual wellness visit, subsequent 09/14 Assessment & Plan (09/14/2024 2:10 PM EDT): Due for labs. Discussed proper diet and regular aerobic exercise. Need aerobic exercise 5-6 days a week for 30 minutes at a time. Smaller portions and limit total calories. Tetanus every 10 years. Advised not to smoke. Major depressive disorder, recurrent, moderate 0 05/09/2024 Assessment & Plan (06/09/2024 10:59 AM EST): Mood much improved and continue prozac. Chronic heart failure with p reserved ejection fraction (HFpEF) 01/29/2024 Assessment & Plan (03/10/2024 2:43 PM EST): No edema and monitor. Elevate legs PRN. Malignant neoplasm of upper- outer quadrant of right breast in female, estrogen receptor positive 11/18/2023 Encounter for nonprocreative genetic counseling and testing 11/18/2023 HER2-positive carcinoma of right breast 11/18/19 24 Invasive ductal carcinoma of breast, female, rig ht 11/11/2023 Assessment & Plan (09/14/2024 2:10 PM EDT): Tolerating chemo and follow with specialists. Assessment & Plan (03/10/2024 2:43 PM EST): Tolerating chemo and follow with specialists. Assessment & Plan (11/11/2023 2:56 PM EDT): Reviewed pathology results with patient and discussed options. Will refer to oncology and general surgery. Hormone testing pending. Abnormal mammogram of right breast 10/12/2023 Assessment & Plan (10/28/2023 10:52 AM EDT): Recommended to have biopsy and order sent to radiology. Encounter for long-term (current) use of medicat ions 09/22/2023 Lumbar spondylosis 06/03/2023 Assessment & Plan (06/09/2024 10:58 AM EST): Pain improved and use ultram PRN. Assessment & Plan (03/10/2024 2:43 PM EST): Pain improved after therapy and continue exercises. Use OTC PRN. Assessment & Plan (10/28/2023 10:53 AM EDT): Pain improved after therapy and continue exercises. Use OTC PRN. Assessment & Plan (09/22/2023 1:52 PM EDT): Pain improved after therapy and continue exercises. Use OTC PRN. Assessment & Plan (07/29/2023 11:22 AM EDT): Pain improved after therapy and continue exercises. Use OTC PRN. Assessment & Plan (06/03/2023 11:13 AM EST): Chronic low back pain, worsening for past few months. Pain is worse when she is standing. Improves with laying down and sitting. No radiculopathy. Pain is left sided, intermittent. She is using tylenol for pain with no relief Hx of osteoporosis, RA, steroid use. Patient noted to have scoliosis. Pain is likely from degenerative changes, poor posture. Will order XR, PT eval and rx. Meloxicam, baclofen and lidocaine patch as needed for pain Follow up in 8 weeks, if persistent symptoms, will order an MRI. Dyslipidemia 03/23/2023 Essential hypertension, benign 03/23/2023 Assessment & Plan (03/10/2024 2:43 PM EST): BP controlled and monitor PRN. Assessment & Plan (10/28/2023 10:53 AM EDT): BP controlled and monitor PRN. Assessment & Plan (09/22/2023 1:52 PM EDT): BP controlled and monitor PRN. Assessment & Plan (07/29/2023 11:23 AM EDT): BP controlled and monitor PRN. Assessment & Plan (06/03/2023 11:14 AM EST): Above goal in office today. Suspect this could be due to her pain as her BP was below 120/80 on previous visit. Monitor for now. No changes made. Assessment & Plan (03/23/2023 2:18 PM EST): BP normal and monitor PRN. Prediabetes 03/23/2023 Hypothyroidism, adult 03/23/2023 Iron deficiency anemia secon edna to inadequate dietary iron intake 03/23/2023 Osteoporosis, postmenopausal 03/23/2023 Overactive bladder 03/23/2023 Assessment & Plan (03/23/2023 2:18 PM EST): Symptoms stable with medication and continue. Rheumatoid arthritis involving multiple joints 1 05/24/2022 Assessment & Plan (03/10/2024 2:43 PM EST): Pain stable and follow with rheumatology. Assessment & Plan (10/28/2023 10:53 AM EDT): Pain stable and follow with rheumatology. Assessment & Plan (09/22/2023 1:52 PM EDT): Pain stable and follow with rheumatology. Assessment & Plan (03/23/2023 2:18 PM EST): Pain stable and follow with rheumatology. 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 11/26/2018 Cervical spondylosis without myelopathy 04/16/19 18 Overview (03/23/2023): Added automatically from request for surgery [id number] Resolved Problems Problem Noted Date Diagnosed Date Resolved Date Dysuria 05/09/2024 06/09/2024 UTI symptoms 07/23/2023 09/22/2023 Acute cystitis with hematuria 07/23/2023 09/22/2023 Encounters Date Type Department Care Team Description 09/28/2024 Telephone [facility] [address] [place] [address] Boone Kidd MD 09/21/2024 Results Follow-Up [facility] [address] [place] [address] Boone Kidd MD Hypothyroidism ; Hypothyroidism, unspecified 09/14/2024 1:00 PM EDT Office Visit [facility] [address] [place] [address] Boone Kidd MD Medicare annual wellness visit, subsequent (Primary Dx); Hypothyroidism, adult ; Invasive ductal carcinoma of breast, female, right (HCC); Dyslipidemia 09/14/2024 Bamboo flowsheet [facility] [address] [place] [address] Boone Kidd MD 08/30/2024 Orders Only [facility] [address] [place] [address] Boone Kidd MD Urinary tract infection without hematuria, site unspecified 08/27/2024 Refill [facility] [address] [place] [address] Boone Kidd MD Major depressive disorder, recurrent, moderate (HCC) from Last 3 Months Family History Medical History Relation Name Comments Esophageal cancer Father Heart disease Mother Hypertension Mother Hypothyroidism Mother Hypertension Other 1 spouse Hypertension Other 2 children Hypertension Sibling Breast cancer Neg Hx Colon cancer Neg Hx Ovarian cancer Neg Hx Relation Name Status Comments Brother 1 brother Daughter 3 daughters Father Mother Other 1 spouse Other 2 children Sibling Sister 1 sister Social History Tobacco Use Types Packs/Day Years Used Date Smoking Tobacco: Never Passive Smoke Exposure: Never Smokeless Tobacco: Never Tobacco Cessation:Counseling Given: No Alcohol Use Standard Drinks/Week Comments Never 0 [...] Sign Reading Time Taken Comments Blood Pressure 132/56 09/14/2024 1:24 PM EDT Pulse 50 09/14/2024 1:24 PM EDT Temperature 36.6 C (97.8 F) 09/14/2024 1:24 PM EDT Respiratory Rate 20 09/14/2024 1:24 PM EDT Oxygen Saturation 96% 09/14/2024 1:24 PM EDT Inhaled Oxygen Concentration - - Weight 44 kg (97 lb) 09/14/2024 1:24 PM EDT Height 144.8 cm (4' 9 ) 09/14/2024 1:24 PM EDT Body Mass Index 20.99 09/14/2024 1:24 PM EDT Plan of Treatment Upcoming Encounters Date Type Department Care Team (Late st Contact Info) Description 12/12/2024 10:45 AM EDT Office Visit [facility] [address] [place] [address] Boone Kidd MD [address] [place] [phone] 03/16/2025 1:00 PM EST Office Visit [facility] [address] [place] [address] Boone Kidd MD [address] [place] [address] Health Maintenance Due Date Last Done Comments Pneumococcal Vaccine: 65+ Ye ars (2 of 2 - PCV) 05/01/2012 05/01/2011 Influenza Vaccine (#1) 2024 4, 01/13/2023, 12/18/2020, Additional history exists Medicare Annual Wellness (AWV) 09/14/2025 09/14/2024 , 07/08/2021 Procedures Procedure Name Priority Date/Time Associated Diagnosis Comments TSH Routine 09/20/2024 10:53 AM EDT LIPID PANEL Routine 09/20/2024 10:53 AM EDT COMPREHENSIVE METABOLIC PANEL Routine 09/20/2024 10:49 AM EDT SED RATE BY MODIFIED WESTERGREN Routine 09/20/2024 10:49 AM EDT CBC WITH AUTO DIFFERENTIAL Routine 09/20/2024 10:49 AM EDT from Last 3 Months Results * (ABNORMAL) TSH (09/20/2024 10:53 AM EDT) [facility] FREE T4 0.85 0.61 - 1.60 ng/dL [facility] TSH 6.13(H) 0.49 - 4.67 uIU/mL [facility] Comment: PERFORMED AT [facility] [address],[place] [address] 09/20/2024 10:5 3 AM EDT 09/20/2024 6:22 PM EDT us Boone Kidd MD LAB BLOOD ORDERABLES Final Resul t [facility] * (ABNORMAL) Lipid panel (09/20/2024 10:53 AM EDT) CHOLESTEROL 106(L) 150 - 200 mg/dL [facility] TRIGLYCERIDE 109 27 - 150 mg/dL [facility] HDL CHOLESTEROL 45 >39 mg/dL [facility] Comment: HDL <40 mg/dL - High Risk HDL > or = 40mg/dL- Desirable HDL >60 mg/dL - Negative Risk LDL (CALC) 39 <130 mg/dL [facility] Comment: LDL <100 mg/dL - Desirable LDL >160 mg/dL - High Risk CHOLESTEROL:HDL 2.4 1.0 - 5.0 NA [facility] VERY LOW LIPOPROTEIN 22 0 - 30 mg/dL [facility] Comment: PERFORMED AT [facility] [address],[place] [address] 09/20/2024 10:5 3 AM EDT 09/20/2024 6:22 PM EDT us Boone Kidd MD LAB BLOOD ORDERABLES Final Resul t [facility] * CBC auto differential (09/20/2024 10:49 AM EDT) WHITE BLOOD CELL COUNT, WBC 6.6 4 - 11 x10E9/L [facility] RED BLOOD CELL COUNT, RBC 4.18 3.8 - 5.2 X10E12/L [facility] HEMOGLOBIN 13.0 11.7 - 15.5 g/dL [facility] HEMATOCRIT 38.5 35 - 47 % [facility] MEAN CELL VOLUME, MCV 92 80 - 100 fL [facility] MEAN CELL HEMOGLOBIN, MCH 31.0 27 - 34 pg [facility] MEAN CELL HEMOGLOGIN CONCENTRATION, MCHC 33.7 32 - 36 g/dL [facility] RED CELL DISTRIBUTION WIDTH, RDW 14.6 11.5 - 15 % [facility] PLATELET COUNT 314 150 - 450 X10E9/L [facility] MEAN PLATELET VOLUME, MPV 9.2 7 - 12 fL [facility] % NEUTROPHILS 62.8 % [facility] % LYMPHOCYTES 20.6 % [facility] % MONOCYTES 9.9 % [facility] % EOSINOPHILS 4.8 % [facility] % BASOPHILS 1.9 % [facility] ABSOLUTE NEUTROPHIL 4.1 1.5 - 6.6 10*3/uL [facility] ABSOLUTE LYMPHOCYTE 1.4 1.0 - 3.5 10*3/uL [facility] ABSOLUTE MONOCYTE 0.7 0.0 - 0.9 10*3/uL [facility] ABSOLUTE EOSINOPHIL 0.3 0.0 - 0.4 10*3/uL [facility] ABSOLUTE BASOPHIL 0.1 0.0 - 0.2 10*3/uL [facility] DIFFERENTIAL TYPE AUTOMATED DIFFERENTIAL [facility] Comment: PERFORMED AT [address],[place] [address] The copy-to physician of this order is NICOLETTE Ravi The ordering physician of this order is WILL Nolan 09/20/2024 10:4 9 AM EDT 09/20/2024 5:55 PM EDT us Boone Kidd MD LAB BLOOD ORDERABLES Final Resul t Performing Organization Address City/[facility] Co de Phone Number [facility] * Sedimentation rate, automated (09/20/2024 10:49 AM EDT) ESR 4 0 - 30 mm/h [facility] Comment: PERFORMED AT [address], [place] [address] 09/20/2024 10:4 9 AM EDT 09/20/2024 5:55 PM EDT Boone Kidd MD LAB BLOOD ORDERABLES Final Resul t [facility] * Comprehensive metabolic panel (09/20/2024 10:49 AM EDT) Sodium 141 134 - 146 mmol/L [facility] Potassium, Bld 3.7 3.5 - 5.0 mmol/L [facility] Chloride 106 98 - 109 mmol/L [facility] Carbon Dioxide 25 22 - 32 mmol/L [facility] Anion Gap 10 5 - 15 mmol/L [facility] BUN 16 5 - 27 mg/dL [facility] Creatinine 0.75 0.40 - 1.00 mg/dL [facility] Comment:METHOD TRACEABLE TO IDMS STANDARD Glucose 94 65 - 99 mg/dL [facility] Calcium 9.6 8.5 - 10.5 mg/dL [facility] TOTAL PROTEIN 6.2 6.0 - 8.0 g/dL [facility] ALBUMIN 3.7 3.2 - 5.3 g/dL [facility] ALKALINE PHOSPHATASE 95 39 - 130 U/L [facility] AST 28 <=41 U/L [facility] ALT 11 <=31 U/L [facility] TOTAL BILIRUBIN 0.4 0.3 - 1.2 mg/dL [facility] EGFR 78 >=60 ml/min/1.7 3sq.m [facility] Comment: Reported eGFR is based on the CKD-EPI 2020 equation that does not use a race coefficient. PERFORMED AT [facility] 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
--- OUTSIDE RECORDS SUMMARY | 2024-10-18 09:53 | XMS_ITS | Encounter Summary ---
Author Organization [facility] Address [address] [place] [address] Care Team Providers Care Farrowing Manager Name Role Phone Boone Kidd MD Primary Care Provider [phone] Encounter Details Date Type Department Care Team (Late st Contact Info) Description 09/28/2024 Telephone [facility] [address] [place] [phone] Boone Kidd MD [address] [place] [address] Social History Tobacco Use Types Packs/Day Years [...] on file documented as of this encounter Miscellaneous Notes * Telephone Encounter - Boone Kidd MD - 09/28/2024 10:25 PM EDT Script sent. If no better over next few days will need seen. MAN * Telephone Encounter - Nia Estefani - 09/28/2024 1:40 PM EDT Patients daughter called and stated patient has another UTI and asked if you could call something in. an documented in this encounter Plan of Treatment Upcoming Encounters Date Type Department Care Team (Late st Contact Info) Description 12/12/2024 10:45 AM EDT Office Visit [facility] [address] [place] [address] Boone Kidd MD [address] [place] [address] 03/16/2025 1:00 PM EST Office Visit [facility] [address] [place] [phone] Boone Kidd MD [address] [place] [address] documented as of this encounter Visit Diagnoses Diagnosis Urinary tract infection without hematuria, site unspecified- Primary documented in this encounter Additional Health Concerns Assessment Noted Time PHQ-9 Depression Total Score: 1 09/15/19 25 1:00 PM EDT documented as of this encounter Care Teams Farrowing Manager Relationship Specialty Start Date End Date Boone Kidd MD [address] [place] [phone] PCP - General Family Medicine 06/03/23 documented as of this encounter
--- OUTSIDE RECORDS SUMMARY | 2024-10-18 09:53 | XMS_ITS | Encounter Summary ---
Author Organization [facility] Address [address] [place] [address] Care Team Providers Care Reservations And Ticketing Agent Name Role Phone Wil Ewing MD Primary Care Provider [phone] Encounter Details Date Type Department Care Team (Late Contact Info) Description 10/12/2023 Clinisync Result Encounter [facility] External Department Unsolicited Wil Ewing MD [address] [place] [address] Social History Tobacco Use Types [...] Visit [facility] [address] [place] [phone] Wil Ewing MD [address] [place] [address] 03/16/2025 1:00 PM EST Office Visit [facility] [address] [place] [address] Wil Ewing MD [address] [place] [address] documented as of this encounter Procedures Procedure Name Priority Date/Time Associated Diagnosis Comments MM TOMOSYNTHESIS SCREENING BI 10/12/2023 7:58 AM EDT documented in this encounter Results * MM TOMOSYNTHESIS SCREENING BI (10/12/2023 7:58 AM EDT) Anatomical Region Laterality Modality Other 10/12/2023 7:58 AM EDT Narrative 10/12/2023 7:59 [place] [address] Mammography Report Signed Patient: TRAVIS MARTINS MR#: [id number] : 1940 Acct:[id number] Age/Sex: 83 / F ADM Date: 10/09/23 Loc: MAMMO Attending Dr: Wil Ewing M.D. Ordering Physician: Wil Ewing M.D. Results: Date of Service: 10/09/23 Follow Up: Procedure(s): MM tomosynthesis screening BI Accession Number(s): [id number] cc: Wil Ewing M.D. Patient Name: TRAVIS MARTINS MR#: [id number] : 1940 Exam Date: 10/09/2023 Ordering Doctor: DR WIL EWING . RADIOLOGY REPORT PROCEDURE: MM TOMOSYNTHESIS SCREENING BI COMPARISON: MM TOMOSYNTHESIS SCREENING BI, 08/07/2015. MM TOMOSYNTHESIS SCREENING BI, 01/07/2017. INDICATIONS: Screening Calculator Name NCI Breast Cancer Risk Assessment Tool 5 Year Breast Cancer Risk Not Reported. Lifetime Breast Cancer Risk Not Reported. Personal Breast Cancer No Personal Ovarian Cancer No Treatments None Family Cancers None LOCATION: [facility] BREAST COMPOSITION: The breasts are heterogeneously dense,which may obscure small masses. FINDINGS: DIAGNOSTIC CATEGORY 0--INCOMPLETE: NEED ADDITIONAL IMAGING EVALUATION. Scattered benign-appearing calcifications are present. Scattered benign-appearing lymph nodes are present. RIGHT BREAST: Significant increase in size of a now 4.4 cm spiculated density / architectural distortion deep to a linear scar marker in an area previous biopsy evidenced by a micro clip marker upper outer quadrant. Given the significant interval frame changer the course of time, further evaluation with spot imaging and ultrasound is recommended. LEFT BREAST: No significant suspicious finding. RECOMMENDATIONS: ADDITIONAL MAMMOGRAPHIC VIEWS REQUIRED: RIGHT BREAST - spot compression ULTRASOUND: RIGHT BREAST PLEASE NOTE: A NORMAL MAMMOGRAM DOES NOT EXCLUDE THE POSSIBILITY OF BREAST CANCER. A CLINICALLY SUSPICIOUS PALPABLE LUMP SHOULD BE BIOPSIED. Dictated by: Juan Jones MD on 10/12/2023 at 07:54 Approved by: Juan Jones MD on 10/12/2023 at 07:57 Dictated By: Juan Jones M.D. Signed By: 10/12/23 0759 DD/ 0758 TD/TT: Assembly Machine Operator: Procedure Note Radiology, Radiologist, MD - 10/12/2023 [place] [address] Mammography Report Signed Patient: TRAVIS MARTINS MMR#: [id number] : 1940cct:[id number] Age/Sex: 83 / FADM Date: 10/09/23 Loc: MAMMO Attending Dr: Wil Ewing M.D. Ordering Physician: Wil Ewing M.D.Results: Date of Service: 10/09/23Follow Up: Procedure(s): MM tomosynthesis screening BI Accession Number(s): [id number] cc: Wil Ewing M.D. Patient Name: TRAVIS MARTINS MR#: [id number] : 1940 Exam Date: 10/09/2023 Ordering Doctor: DR WIL EWING . RADIOLOGY REPORT PROCEDURE: MM TOMOSYNTHESIS SCREENING BI COMPARISON: MM TOMOSYNTHESIS SCREENING BI, 08/07/2015. MMTOMOSYNTHESIS SCREENING BI, 01/07/2017. INDICATIONS: Screening Calculator Name NCI Breast Cancer Risk Assessment Tool 5 Year Breast Cancer Risk Not Reported. Lifetime Breast Cancer Risk Not Reported. Personal Breast Cancer No Personal Ovarian Cancer No Treatments None Family Cancers None LOCATION: [facility] BREAST COMPOSITION: The breasts are heterogeneously dense,which may obscure small masses. FINDINGS: DIAGNOSTIC CATEGORY 0--INCOMPLETE: NEED ADDITIONAL IMAGING EVALUATION. Scattered benign-appearing calcifications are present. Scattered benign-appearing lymph nodes are present. RIGHT BREAST: Significant increase in size of a now 4.4 cm spiculateddensity / architectural distortion deep to a linear scar marker in an areaprevious biopsy evidenced by a micro clip marker upper outer quadrant. Given the significant interval frame changer the course of time, further evaluationwith spot imaging and ultrasound is recommended. LEFT BREAST: No significant suspicious finding. RECOMMENDATIONS: ADDITIONAL MAMMOGRAPHIC VIEWS REQUIRED: RIGHT BREAST - spot compression ULTRASOUND: RIGHT BREAST PLEASE NOTE: A NORMAL MAMMOGRAM DOES NOT EXCLUDE THE POSSIBILITY OFBREAST CANCER. A CLINICALLY SUSPICIOUS PALPABLE LUMP SHOULD BE BIOPSIED. Dictated by: Juan Jones MD on 10/12/2023 at 07:54 Approved by: Juan Jones MD on 10/12/2023 at 07:57 Dictated By: Juan Jones M.D. Signed By:10/12/23 0759 DD/ 0758 TD/TT: Assembly Machine Operator: Wil Ewing MD [facility] Final Result documented in this encounter Visit Diagnoses Not on filedocumented in this encounter Care Teams Reservations And Ticketing Agent Relationship Specialty Start Date End Date Wil Ewing MD [address] [place] [address] PCP - General Family Medicine 06/03/23 documented as of this encounter
--- NOTE | 2024-10-18 10:00 | CA_ITS ---
Patient Name: TRAVIS GONCALVES MR#: [id number] : 1940 Exam Date: 10/18/2024 Ordering Doctor: DR. WILL CUADRA M.D. ECHOCARDIOGRAM REPORT PROCEDURE: CA ECHO DOPPLER COMPLETE INDICATIONS: Cardiotoxic drug therapy, right breast cancer COMPARISON: None. DESCRIPTION: COMPLETE ECHOCARDIOGRAM Real-time transthoracic echocardiography with 2D, M-mode, spectral and color flow Doppler performed. QUALITY: Technical quality was good. LEFT VENTRICLE: Normal chamber size. Mild concentric left ventricular hypertrophy. LV EF: Global left ventricular systolic function is normal; visually estimated ejection fraction is 55 to 60%. Calculated left ventricular ejection fraction is 58%. Abnormal septal motion; may be related to bundle branch block. DIASTOLIC: Unable to assess diastolic function. ATRIAL SEPTUM: Visually appears intact. LEFT ATRIUM: Moderate dilatation. RIGHT ATRIUM: Normal chamber size. RIGHT VENTRICLE: Normal chamber size. Normal right ventricular systolic function. TRICUSPID VALVE: Normal mobility and thickness. No stenosis with moderate to severe regurgitation. Doppler studies reveal moderately (45-60) elevated right sided pressures. RVSP 53 mmHg MITRAL VALVE: Normal mobility and thickness. No evidence of mitral valve stenosis. There is no mitral annular calcification. Mild to moderate mitral regurgitation. AORTIC VALVE: Normal trileaflet appearance. Mildly calcified aortic valve. Normal leaflet mobility. No evidence of aortic valve stenosis. No aortic regurgitation. AORTIC ROOT: Normal diameter and appearance. Ascending aorta is normal in size. PULMONIC VALVE: Normal thickness and mobility. No stenosis. No regurgitation. PERICARDIUM: No evidence of pericardial effusion. IVC: Collapses with inspiration. STRAIN: Global peak strain four-chamber -13.9%, global strain 2 chamber -16.4%, global strain AP long axis -11.3% global peak APLAX -11.3%, GLS average - 13.9%. No prior studies to compare. CONCLUSION: 1. Global ventricular systolic function is normal; visually estimated ejection fraction is 55 to 60% 2. Normal right ventricular size and systolic function 3. Mild left ventricular hypertrophy 4. The left atrium is moderately dilated 5. Moderate to severe tricuspid regurgitation 6. Moderately elevated right ventricular systolic pressure; RVSP 53 mmHg 7. Mild to moderate mitral regurgitation Adult Echocardiography Procedure Report Left Ventricle LVEDD (3.7 - 5.6 cm): 3.32 cm LVESD (2.2 - 4.0 cm): 2.75 cm LVIVS thickness (0.6 - 1.2 cm): 1.32 cm LVPW thickness (0.5 - 1.0 cm): 1.21 cm LVOT Max Gradient: 1.67 mm[Hg] LVOT Area (cm2): 0.65 m/s Peak Velocity (LVOT): 0.65 m/s Mean Velocity (LVOT): 0.48 m/s LVOT Diameter 2.09 cm Left Ventricular Ejection Fraction: 68.22 % Left Atrium LA Volume Index (2D A2C): 46.08 ml/m2 Left Atrium Systolic Dimension: 2.91 cm Mitral Valve MV E to A Ratio: 0.95 Mitral Valve A-Wave Peak Velocity: 0.78 m/s Mitral Valve E-Wave Peak Velocity: 0.74 m/s Right Ventricle Aorta AO Root Diam: 3.16 cm Ascending Ao Diam: 3.06 cm Aortic Valve AoV Area (Peak Johan): 2.20 cm2, 2.20 cm2 AoV Area (VTI): 2.54 cm2, 2.54 cm2 Peak Velocity(Antegrade Flow): 1.01 m/s Peak Gradient(Antegrade Flow): 4.06 mm[Hg] Mean Velocity(Antegrade Flow): 0.68 m/s Mean Gradient(Antegrade Flow): 2.13 mm[Hg] Velocity Time Integral: 22.11 cm Tricuspid Valve Peak Velocity (Regurgitant Flow): 3.23 m/s, 3.52 m/s, 2.79 m/s Pulmonic Valve Peak Velocity: 0.55 m/s Peak Gradient: 1.21 mm[Hg] Right Atrium Right Atrium Systolic Pressure: 47.85 ml, 47.85 ml Dictated by: Jimmy Cristobal M.D. on 10/19/2024 at 17:35 Approved by: Jimmy Cristobal M.D. on 10/19/2024 at 17:44
== END 2024-10-18 09:50 | disposition home or self-care (01) ==
LOC: CARD 09:49
PROVIDERS: PCP Family Medicine; Visit Provider Internal Medicine Hematology & Oncology
DX: C50.911 Malignant neoplasm of unspecified site of right female breast (principal); Z17.31 Human epidermal growth factor receptor 2 positive status; Z51.81 Encounter for therapeutic drug level monitoring; Z79.899 Other long term (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; K52.1 Toxic gastroenteritis and colitis; T45.1X5A Adverse effect of antineoplastic and immunosuppressive drugs, initial encounter
CPT/HCPCS: 93306; 93356

== ENCOUNTER 2024-12-30 10:05 | Emergency (ER) | payer MEDICARE, OTHER, SELFPAY ==
[2024-12-30 10:10] VITALS: BP 169/81; PULSE 57; TEMP 36.7; O2SAT 98; BMI 23.4
--- NOTE | 2024-12-30 10:24 | ED.GENADUL1 ---
HPI HPI - General Adult General Chief complaint: Abdominal Pain Stated complaint: VAGINAL BLEEDING Time Seen by Provider: 12/30/24 10:19 Source: patient Mode of arrival: Wheelchair Limitations: no limitations History of Present Illness HPI narrative: 84-year-old female presented to the emergency department for what she describes as vaginal bleeding. She has had a hysterectomy. She noticed it 2 days ago. No complaints of abdominal or pelvic pain. No injury. Patient reports that the blood was definitely coming from her vagina. She states that her stool has been brown. Related Data Home Medications ?Medication ?Instructions ?Recorded ?Confirmed aspirin 81 mg capsule 81 mg PO DAILY 10/29/23 12/30/24 Vitamin D3 1 tab PO DAILY 11/03/23 12/30/24 acetaminophen 650 mg 650 mg PO DAILY 11/03/23 11/03/23 tablet,extended release (8 Hour Pain Reliever) alendronate 70 mg tablet 70 mg PO .week 11/03/23 12/30/24 amlodipine 5 mg tablet 5 mg PO DAILY 11/03/23 12/30/24 atorvastatin 80 mg tablet 80 mg PO .evenings 11/03/23 12/30/24 calcium 1,200 mg PO DAILY 11/03/23 12/30/24 cranberry 1 tab PO DAILY 11/03/23 12/30/24 leflunomide 20 mg tablet 20 mg PO DAILY 11/03/23 12/30/24 levothyroxine 25 mcg tablet 50 mcg PO DAILY 11/03/23 12/30/24 metoprolol succinate 100 mg 100 mg PO DAILY 11/03/23 12/30/24 tablet,extended release 24 hr multivitamin 1 tab PO DAILY 11/03/23 12/30/24 oxybutynin chloride 10 mg 10 mg PO DAILY 11/03/23 12/30/24 tablet,extended release 24 hr fluoxetine 10 mg capsule mg 12/30/24 letrozole 2.5 mg tablet mg 12/30/24 tramadol 50 mg tablet mg 12/30/24 Allergies Allergy/AdvReac Type Severity Reaction Status Date / Time amoxicillin AdvReac Diarrhea Verified 12/30/24 10:10 Review of Systems ROS Narrative A ten point review of systems is negative except as noted above. [facility] Medical History (Updated 12/30/24 @ 14:15 by Mode Patterson MD) Scoliosis ?M41.9 - Scoliosis, unspecified (ICD-10) Rheumatoid arthritis ?M06.9 - Rheumatoid arthritis, unspecified (ICD-10) HTN (hypertension) ?I10 - Essential (primary) hypertension (ICD-10) Surgical History (Updated 11/03/23 @ 14:48 by Mili Phillip) S/P breast biopsy, right ?Z98.890 - Other specified postprocedural states (ICD-10) History of tonsillectomy ?Z90.89 - Acquired absence of other organs (ICD-10) History of lumpectomy of right breast ?Z98.890 - Other specified postprocedural states (ICD-10) Hx of CABG ?Z95.1 - Presence of aortocoronary bypass graft (ICD-10) Social History Little interest or pleasure in doing things: not at all Feeling down, depressed, or hopeless: not at all Exam Narrative Exam Narrative: Nurses note and vital signs reviewed and patient is not hypoxic. General:The patient appears well and in no apparent distress.Patient is resting comfortably on cart. Skin:Warm, dry, no pallor noted.There is no rash noted. Head:Normocephalic, atraumatic Eye: Normal conjunctiva, no drainage Ears, Nose, Mouth, and Throat: oral mucosa is moist. Nares patent. Cardiovascular:Regular Rate and Rhythm Respiratory:Patient is in no distress, no accessory muscle use, lungs are clear to auscultation, no wheezing, rales or rhonchi Back:non-tender GI: Soft and nontender and nondistended Musculoskeletal: The patient has no evidence of calf tenderness, no pitting edema, symmetrical pulses noted bilaterally Neurological:A&O, normal speech Psychiatric:Cooperative Constitutional Vital Signs, click to edit/add: Last Vital Signs Temp 98.0 F 12/30/24 10:10 Pulse 57 L 12/30/24 10:10 Resp 18 12/30/24 10:10 BP 169/81 H 12/30/24 10:10 Pulse Ox 98 12/30/24 10:10 O2 Del Method Room Air 12/30/24 10:10 Course Vital Signs Vital signs: Vital Signs Temperature 98.0 F 12/30/24 10:10 Pulse Rate 57 L 12/30/24 10:10 Respiratory Rate 18 12/30/24 10:10 Blood Pressure 169/81 H 12/30/24 10:10 Pulse Oximetry 98 12/30/24 10:10 Oxygen Delivery Method Room Air 12/30/24 10:10 Temperature 98.0 F 12/30/24 10:10 Pulse Rate 57 L 12/30/24 10:10 Respiratory Rate 18 12/30/24 10:10 Blood Pressure 169/81 H 12/30/24 10:10 Pulse Oximetry 98 12/30/24 10:10 Oxygen Delivery Method Room Air 12/30/24 10:10 Medical Decision Making MDM Narrative Medical decision making narrative: Straight cath urinalysis showed no hematuria. No blood was found when nursing staff did the catheterization. CAT scan showed questionable colitis but she has no abdominal pain whatsoever and has had no blood in her stool. CAT scan also showed questionable pericholecystic fluid so an ultrasound was performed and no pericholecystic fluid was noted on the ultrasound. Repeat examination at 2:15 PM shows no tenderness in the right upper quadrant or elsewhere on the abdomen. I have no clinical suspicion of acute cholecystitis or colitis. Follow-up with your doctor or return here to the emergency department if symptoms recur. Treatment diagnosis and follow-up were discussed thoroughly with the patient and her daughter. Has had a hysterectomy so there is no concern for uterine bleeding. Differential Diagnosis Differential Diagnosis: Hematuria, vaginal bleeding Lab Data Lab results reviewed: Yes I reviewed the patient's lab results Labs: Lab Results 12/30/24 12/30/24 Range/Units 10:35 10:40 WBC 8.3 (4.0-11.0) 10^3/uL RBC 4.23 (4.20-5.40) 10^6/uL Hgb 13.5 (12.0-16.0) g/dL Hct 40.6 (36.0-48.0) % MCV 96.0 (81.0-99.0) fL MCH 31.9 (26.7-34.0) pg MCHC 33.3 (29.9-35.2) g/dL RDW 13.5 (11.0-15.0) % Plt Count 275 (150-450) 10^3/uL MPV 10.4 (9.5-13.5) fL Neut % (Auto) 67.5 (43.0-75.0) % Lymph % (Auto) 14.4 L (20.5-60.0) % [place] % (Auto) 11.3 (1.7-12.0) % Eos % (Auto) 4.9 (0.9-7.0) % Baso % (Auto) 1.7 (0.2-2.0) % Neut # (Auto) 5.6 (1.4-6.5) 10^3/uL Lymph # (Auto) 1.2 (1.2-3.8) 10^3/uL [place] # (Auto) 0.9 H (0.3-0.8) 10^3/uL Eos # (Auto) 0.4 (0.0-0.7) 10^3/uL Baso # (Auto) 0.1 (0.0-0.1) 10^3/uL Abs Immat Gran (auto) 0.02 (0.00-0.03) 10^3/uL Imm/Tot Granulo (auto) 0.2 (0.0-0.5) % Sodium 140 (136-145) mmol/L Potassium 3.2 L (3.5-5.1) mmol/L Chloride 105 (98-107) mmol/L Carbon Dioxide 27.4 (21.0-32.0) mmol/L Anion Gap 10.8 BUN 12.0 (7.0-18.0) mg/dL Creatinine 0.71 (0.55-1.02) mg/dL Est GFR ( Amer) >60 (>=60 mL/min/1.73m^2) Est GFR (Non-Af Amer) >60 (>=60 mL/min/1.73m^2) BUN/Creatinine Ratio 16.9 Glucose 89 (74-106) mg/dL Calcium 8.9 (8.5-10.1) mg/dL Urine Color Yellow (YELLOW) Urine Clarity Clear (CLEAR) Urine pH 6.0 (5.0-9.0) Ur Specific [place] 1.010 (1.005-1.025) Urine Protein Negative (NEG/TRACE) mg/dL Urine Glucose (UA) Negative (NEGATIVE) mg/dL Urine Ketones Negative (NEGATIVE) mg/dL Urine Occult Blood Negative (NEGATIVE) Urine Nitrite Negative (NEGATIVE) Urine Bilirubin Negative (NEGATIVE) Urine Urobilinogen 0.2 (0.2-1.0) EU/dL Ur Leukocyte Esterase Negative (NEGATIVE) Urine RBC 0-2 (0-2) #/HPF Urine WBC 0-2 A (NONE SEEN) #/HPF Ur Squamous Epith Cells Few A (NONE/RARE) #/LPF Urine Crystals None seen (None Seen) #/HPF Urine Bacteria Trace A (NONE SEEN) #/HPF Urine Casts None seen (NONE SEEN) #/LPF Urine Mucus None seen (NONE SEEN) Imaging Data CT scan - abdomen: Radiologist's impression: ITS Impressions Abdomen/Pelvis CT 12/30/24 11:13 IMPRESSION: There is wall thickening along the stomach possibly representing gastritis. There is a hiatal hernia with gastric fundus in the lower mediastinum. There is wall thickening along the rectum and sigmoid colon possibly representing colitis. The gallbladder wall is enhancing enhancing versus hyperattenuating polyps or stones along the gallbladder wall. There is accompanying pericholecystic edema. There is ongoing clinical concern for acute cholecystitis, follow-up gallbladder ultrasound or nuclear medicine hepatobiliary imaging may be helpful. A small amount of free fluid is noted in the pelvis which may be reactive. There is a heterogeneously enhancing 2.9 cm structure within the spleen which is of uncertain etiology. Metastatic disease is not excluded. There is a 0.9 cm calcified structure in the right hepatic lobe possibly representing a granuloma previous treated metastatic disease. There is a 1.1 cm hypoattenuating structure within the left hepatic possibly representing a cyst or hemangioma. Metastatic disease is not excluded. Impression dictated by: Hermes Angeles M.D. 12/30/2024 12:45 PM Dictation Location: [place] [address] Electronically authenticated by: [id number] Y Date: 12/30/2024 12:45 Upper Quadrant Ultrasound 12/30/24 12:58 IMPRESSION: GALLBLADDER SLUDGE WITH WALL THICKENING. NO PERICHOLECYSTIC FLUID. DEVELOPING ACUTE CHOLECYSTITIS IS OF CLINICAL CONCERN, FURTHER EVALUATION WITH HIDA SCAN IS SUGGESTED. FATTY INFILTRATION OF THE LIVER.. Impression dictated by: Eliel Barton Jr., D.O. 12/30/2024 1:53 PM Dictation Location: [place] [address] Electronically authenticated by: [id number] Y Date: 12/30/2024 13:53 Discharge Plan Discharge Chief Complaint: Abdominal Pain Clinical Impression: Vaginal bleeding Patient Disposition: Home, Self-Care Time of Disposition Decision: 14:14 Condition: Good Mode of Transportation: Private Vehicle Prescriptions / Home Meds: No Action aspirin 81 mg capsule 81 mg PO DAILY alendronate 70 mg tablet 70 mg PO .week amlodipine 5 mg tablet 5 mg PO DAILY atorvastatin 80 mg tablet 80 mg PO .evenings leflunomide 20 mg tablet 20 mg PO DAILY levothyroxine 25 mcg tablet 50 mcg PO DAILY metoprolol succinate 100 mg tablet extended release 24 hr 100 mg PO DAILY oxybutynin chloride 10 mg tablet extended release 24hr 10 mg PO DAILY cranberry 1 tab PO DAILY multivitamin Tablet 1 tab PO DAILY Vitamin D3 1 tab PO DAILY calcium 1,200 mg PO DAILY acetaminophen [8 Hour Pain Reliever] 650 mg tablet extended release 650 mg PO DAILY fluoxetine 10 mg capsule letrozole 2.5 mg tablet tramadol 50 mg tablet Print Language: Amharic Instructions: Normal Exam (ED) Referrals: Boone Kidd MD [Primary Care Provider, Family Practice] - 1 week
--- OUTSIDE RECORDS SUMMARY | 2024-12-30 10:55 | XMS_ITS | Encounter Summary ---
Author Organization [facility] Address [address] [place] [address] Care Team Providers Care Steel Engraver Name Role Phone Boone Kidd MD Primary Care Provider [phone] Encounter Details Date Type Department Care Team [...] as of this encounter Plan of Treatment Not on file documented as of this encounter Procedures Procedure Name Priority Date/Time Associated Diagnosis Comments BI US BREAST LIMITED RIGHT 03/21/2024 10:58 AM EST documented in this encounter Results * Right breast US limited (03/21/2024 10:58 AM EST) Anatomical Region Laterality Modality Breast Right Ultrasound 03/21/2024 10:5 8 AM EST Narrative 03/21/2024 10:59 AM EST The [address] [address] Ultrasound Report Signed Patient: TRAVIS MARTINS MR#: [id number] : 1940 Acct:[id number] Age/Sex: 83 / F ADM Date: 03/21/24 Loc: US Attending Dr: WILL CUADRA Ordering Physician: WILL CUADRA Date of Service: 03/21/24 Procedure(s): US breast RT limited Accession Number(s): [id number] cc: Boone Kidd M.D.; WILL CUADRA Patient Name: TRAVIS MARTINS MR#: [id number] : 1940 Exam Date: 03/21/2024 Ordering Doctor: [...] Dictated By: Juan Jones M.D. Signed By: 03/21/24 1059 DD/ 1058 TD/TT: Inspecting Supervisor: Procedure Note Radiology, Radiologist, MD - 03/21/2024 [place] [address] Ultrasound Report Signed Patient: TRAVIS MARTINS MMR#: [id number] : 1940cct:[id number] Age/Sex: 83 / FADM Date: 03/21/24 Loc: US Attending Dr: WILL CUADRA Ordering Physician: WILL CUADRA Date of Service: 03/21/24 Procedure(s): US breast RT limited Accession Number(s): [id number] cc: Boone Kidd M.D.; WILL CUADRA Patient Name: TRAVIS MARTINS MR#: [id number] : 1940 Exam Date: 03/21/2024 Ordering Doctor: [...] 10:58 Dictated By: Juan Jones M.D. Signed By:03/21/24 1059 DD/ 1058 TD/TT: Inspecting Supervisor: us Generic External Data Provider IMG US PROCEDURES Final Result documented in this encounter Visit Diagnoses Not on filedocumented in this encounter Care Teams Steel Engraver Relationship Specialty Start Date End Date Boone Kidd MD PCP - General Family Medicine 06/03/23 documented as of this encounter
--- OUTSIDE RECORDS SUMMARY | 2024-12-30 10:55 | XMS_ITS | Encounter Summary ---
Author Organization [facility] Address [address] [place] [address] Care Team Providers Care Diesel Engine I Pipe Fitter Name Role Phone Boone Kidd MD Primary Care Provider [phone] Encounter Details Date Type Department Care Team (Late st Contact Info) Description 05/10/2024 Orders Only [facility] [address] [place] [address] Boone Kidd MD [address] [place] [address] Social History Tobacco Use Types Packs/Day Years [...] on filedocumented in this encounter Care Teams Diesel Engine I Pipe Fitter Relationship Specialty Start Date End Date Boone Kidd MD PCP - General Family Medicine 06/03/23 documented as of this encounter
--- OUTSIDE RECORDS SUMMARY | 2024-12-30 10:55 | XMS_ITS | Encounter Summary ---
Author Organization [facility] Address [address] [place] [address] Care Team Providers Care Doctor Assistant Name Role Phone Boone Kidd MD Primary Care Provider [phone] Encounter Details Date Type Department Care Team (Late st Contact Info) Description 07/11/2024 Orders Only [facility] [address] [place] [address] Boone Kidd MD [address] [place] [address] Social History Tobacco Use Types Packs/Day Years [...] on filedocumented in this encounter Care Teams Doctor Assistant Relationship Specialty Start Date End Date Boone Kidd MD PCP - General Family Medicine 06/03/23 documented as of this encounter
--- OUTSIDE RECORDS SUMMARY | 2024-12-30 10:55 | XMS_ITS | Encounter Summary ---
Author Organization [facility] Address [address] [place] [address] Care Team Providers Care Design Assembler Name Role Phone Boone Kidd MD Primary Care Provider [phone] Encounter Details Date Type Department Care Team (Late st Contact Info) Description 11/10/2023 Orders Only [facility] [address] [place] [address] Boone Kidd MD [address] [place] [address] Social History Tobacco Use Types Packs/Day Years [...] on filedocumented in this encounter Care Teams Design Assembler Relationship Specialty Start Date End Date Boone Kidd MD PCP - General Family Medicine 06/03/23 documented as of this encounter
--- OUTSIDE RECORDS SUMMARY | 2024-12-30 10:55 | XMS_ITS | Encounter Summary ---
Author Organization [facility] Address [address] [place] [address] Care Team Providers Care Training And Development Director Name Role Phone Boone Kidd MD Primary Care Provider [phone] Encounter Details Date Type Department Care Team [...] EDT Narrative 01/28/2024 6:53 PM EDT The [address] [address] Cardiology Report Signed Patient: TRAVIS MARTINS MR#: [id number] : 1940 Acct:[id number] Age/Sex: 83 / F ADM Date: 01/28/24 Loc: CARD Attending Dr: WILL CUADRA Ordering Physician: WILL CUADRA Date of Service: 01/28/24 Procedure(s): CA echo doppler complete Accession Number(s): [id number] cc: Boone Kidd M.D.; WILL CUADRA Patient Name: TRAVIS MARTINS MR#: [id number] : 1940 Exam Date: 01/28/2024 Ordering Doctor: [...] MOORE Signed By: 01/28/241852 DD/ 51 TD/TT: Middle School Spanish Teacher: Procedure Note Radiology, Radiologist, - 01/28/2024 [place] [address] Cardiology Report Signed Patient: TRAVIS MARTINS MMR#: [id number] : 1940cct:[id number] Age/Sex: 83 / FADM Date: 01/28/24 Loc: CARD Attending Dr: WILL CUADRA Ordering Physician: WILL CUADRA Date of Service: 01/28/24 Procedure(s): CA echo doppler complete Accession Number(s): [id number] cc: Boone Kidd M.D.; WILL CUADRA Patient Name: TRAVIS MARTINS MR#: [id number] : 1940 Exam Date: 01/28/2024 Ordering Doctor: [...] BOBBY MOORE Signed By:01/28/241852 DD/ 51 TD/TT: Middle School Spanish Teacher: Generic External Data Provider [facility] Final Result documented in this encounter Visit Diagnoses Not on filedocumented in this encounter Care Teams Training And Development Director Relationship Specialty Start Date End Date Boone Kidd MD PCP - General Family Medicine 06/03/23 documented as of this encounter
--- OUTSIDE RECORDS SUMMARY | 2024-12-30 10:55 | XMS_ITS | Encounter Summary ---
Author Organization [facility] Address [address] [place] [address] Care Team Providers Care Senior Care Provider Name Role Phone Boone Kidd MD Primary Care Provider [phone] Encounter Details Date Type Department Care Team (Late st Contact Info) Description 09/21/2024 Results Follow-Up [facility] [address] [place] [address] Boone Kidd MD [address] [place] [address] CBC auto differential, Sedimentation rate, automated, Lipid panel, Additional followed-up results: 2 Social History Tobacco Use Types Packs/Day Years [...] on file documented as of this encounter Visit Diagnoses Diagnosis Hypothyroidism Unspecified hypothyroidism Hypothyroidism, unspecified documented in this encounter Additional Health Concerns Assessment Noted Time PHQ-9 Depression Total Score: 1 09/15/19 25 1:00 PM EDT documented as of this encounter Care Teams Senior Care Provider Relationship Specialty Start Date End Date Boone Kidd MD PCP - General Family Medicine 06/03/23 documented as of this encounter
--- OUTSIDE RECORDS SUMMARY | 2024-12-30 10:55 | XMS_ITS | Encounter Summary ---
Author Organization [facility] Address [address] [place] [address] Care Team Providers Care Youth Officer Name Role Phone Boone Kidd MD Primary Care Provider [phone] Encounter Details Date Type Department Care Team (Late st Contact Info) Description 11/04/2023 Clinisync Result Encounter [facility] External Department Unsolicited Boone Kidd MD [address] [place] [address] Social History Tobacco Use Types Packs/Day Years [...] EDT Narrative 11/04/2023 3:05 PM EDT [facility] [address] [place] [address] Mammography Report Signed Patient: TRAVIS MARTINS MR#: [id number] : 1940 Acct:[id number] Age/Sex: 83 / F ADM Date: 11/03/23 Loc: US Attending Dr: Boone Kidd M.D. Ordering Physician: Boone Kidd M.D. Results: Date of Service: 11/03/23 Follow Up: Procedure(s): MM post biopsy RT Accession Number(s): [id number] cc: Boone Kidd M.D. Patient Name: TRAVIS MARTINS MR#: [id number] : 1940 Exam Date: 11/03/2023 Ordering Doctor: [...] Signed By: 11/04/23 1505 DD/ 1504 TD/TT: Paint Maker: Procedure Note Radiology, Radiologist, MD - 11/04/2023 The [place] [id number] Mammography Report Signed Patient: TRAVIS MARTINS MMR#: [id number] : 1940cct:[id number] Age/Sex: 83 / FADM Date: 11/03/23 Loc: US Attending Dr: Boone Kidd M.D. Ordering Physician: Boone Kidd M.D.Results: Date of Service: 11/03/23Follow Up: Procedure(s): MM post biopsy RT Accession Number(s): [id number] cc: Boone Kidd M.D. Patient Name: TRAVIS MARTINS MR#: [id number] : 1940 Exam Date: 11/03/2023 Ordering Doctor: [...] M.D. Signed By:11/04/23 1505 DD/ 1504 TD/TT: Paint Maker: Boone Kidd MD [facility] Final Result documented in this encounter Visit Diagnoses Not on filedocumented in this encounter Care Teams Youth Officer Relationship Specialty Start Date End Date Boone Kidd MD PCP - General Family Medicine 06/03/23 documented as of this encounter
--- OUTSIDE RECORDS SUMMARY | 2024-12-30 10:55 | XMS_ITS | Encounter Summary ---
Author Organization [facility] Address [address] [place] [address] Care Team Providers Care Park Superintendent Name Role Phone Wil Ewing MD Primary Care Provider [phone] Encounter Details Date Type Department Care Team (Late st Contact Info) Description 10/12/2023 Clinisync Result Encounter [facility] External Department Unsolicited Wil Ewing MD [address] [place] [id number] Social History Tobacco Use Types Packs/Day Years [...] EDT Narrative 10/12/2023 7:59 AM EDT The [place] [id number] Mammography Report Signed Patient: TRAVIS MARTINS MR#: [id number] : 1940 Acct:[id number] Age/Sex: 83 / F ADM Date: 10/09/23 Loc: MAMMO Attending Dr: Wil Ewing M.D. Ordering Physician: Wil Ewing M.D. Results: Date of Service: 10/09/23 Follow Up: Procedure(s): MM tomosynthesis screening BI Accession Number(s): [id number] cc: Wil Ewing M.D. Patient Name: TRAVIS MARTINS MR#: [id number] : 1940 Exam Date: 10/09/2023 Ordering Doctor: DR WIL Manuel RADIOLOGY REPORT PROCEDURE: MM TOMOSYNTHESIS SCREENING BI COMPARISON: MM TOMOSYNTHESIS SCREENING BI, 08/07/2015. MM TOMOSYNTHESIS SCREENING BI, 01/07/2017. INDICATIONS: Screening Calculator Name NCI Breast Cancer Risk Assessment Tool 5 Year Breast Cancer Risk Not Reported. Lifetime Breast Cancer Risk Not Reported. Personal Breast Cancer No Personal Ovarian Cancer No Treatments None Family Cancers None LOCATION: [facility] BREAST COMPOSITION: The breasts are heterogeneously dense,which [...] upper outer quadrant. Given the significant interval supervisor records change the course of time, further evaluation with [...] Signed By: 10/12/23 0759 DD/ 0758 TD/TT: Rotor Pilot: Procedure Note Radiology, Radiologist, MD - 10/12/2023 [place] [address] Mammography Report Signed Patient: TRAVIS MARTINS MMR#: [id number] : 1940cct:[id number] Age/Sex: 83 / FADM Date: 10/09/23 Loc: MAMMO Attending Dr: Wil Ewing M.D. Ordering Physician: Wil Ewing M.D.Results: Date of Service: 10/09/23Follow Up: Procedure(s): MM tomosynthesis screening BI Accession Number(s): [id number] cc: Wil Ewing M.D. Patient Name: TRAVIS MARTINS MR#: [id number] : 1940 Exam Date: 10/09/2023 Ordering Doctor: [...] Treatments None Family Cancers None LOCATION: [facility] BREAST COMPOSITION: The breasts are heterogeneously dense,which [...] upper outer quadrant. Given the significant interval supervisor records change the course of time, further evaluationwith spot [...] M.D. Signed By:10/12/23 0759 DD/ 0758 TD/TT: Rotor Pilot: Wil Ewing MD [facility] Final Result documented in this encounter Visit Diagnoses Not on filedocumented in this encounter Care Teams Park Superintendent Relationship Specialty Start Date End Date Wil Ewing MD PCP - General Family Medicine 06/03/23 documented as of this encounter
--- OUTSIDE RECORDS SUMMARY | 2024-12-30 10:55 | XMS_ITS ---
Author Organization [employer] tem Address [id number] [address] [place] [address] Care Team Providers Care Staffing Manager Name Role Phone Boone Kidd MD Primary Care Provider [phone] Active Problems Problem Noted Date Diagnosed Date Chemotherapy induced diarrhea 07/22/2024 HER2-positive carcinoma of right breast 11/18/19 24 Right breast cancer with T3 tumor, >5 cm in greatest dimension 11/13/2023 S/P nasal septoplasty 08/30/2020 Epistaxis 08/01/2020 Dyslipidemia 10/21/2019 Iron deficiency anemia 11/26/2018 Coronary artery disease invo lving [place] coronary artery of [place] heart 11/26/2018 History of coronary artery bypass graft x 2 11/05 Cervical spondylosis without myelopathy 04/16/19 18 Overview (04/16/2017): Added automatically from request for surgery [id number] Current Treatment and Therapy Plans OP BREAST [id number] SUBQ* Plan Start Date:11/17/2023 Plan Provider:Topher Cummings MD Linked Problems HER2-positive carcinoma of r ight breast ([facility])Right breast cancer with T3 tumor, >5 cm in greatest dimension ([facility]) Treatment Medications Current Day (Day 1 , Cycle 17 - Planned for 01/11/2025) Next Day (Day 1, Cycle 18 - Planned for 02/08/2025) pertuzumab 1,200 mg-trastuzumab 600 qm-tuwvalehyzzw-kyot 30,000 units ([place]ES[place])pertuzumab 600 mg-trastuzumab 600 tb-lbkataldibqd-taoz 20,000 units ([place]ES[place]) pertuzumab 600 mg-trastuzumab 600 pn-rbokoffjxbim-hnnc 20,000 units (PHESGO) SubQ chemo injection 10 mL pertuzumab 600 mg-trastuzumab 600 hy-qknuohujepcu-zrwg 20,000 units (PHESGO) SubQ chemo injection 10 [...] (11/01/2018): Added automatically from request for surgery [id number]
--- OUTSIDE RECORDS SUMMARY | 2024-12-30 10:55 | XMS_ITS | Clinical Summary ---
Author Organization [facility] Address [address] [place] [address] Care Team Providers Care Casket Assembler Metal Name Role Phone Boone Kidd MD Primary Care Provider [phone] Allergies Active Allergy Reactions Criticality Noted Date Comments Amoxicillin Diarrhea 04/10/2023 Medications aspirin 81 MG EC tablet Take 81 mg by mouth in the morning. Active leflunomide (Arava) 20 MG tablet Take 20 mg by mouth in the morning. 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 Active oxybutynin XL (Ditropan-XL) 10 MG 24 hr tabletIndications:O veractive bladder Take 1 tablet (10 mg) by mouth Daily Do not crush, chew, or split. 90 tablet 3 5 Active FLUoxetine (PROzac) 10 MG capsuleIndications: Major depressive disorder, recurrent, moderate (HCC) TAKE 1 CAPSULE BY MOUTH EVERY DAY 30 capsule 3 5 Active levothyroxine (Synthroid, Levoxyl) 50 MCG tabletIndications:H ypothyroidism,Hypot hyroidism, unspecified Take 1 tablet (50 mcg) by mouth Daily 90 tablet 3 5 Active metoprolol succinate XL (Toprol-XL) 100 MG 24 hr tabletIndications:E ssential (primary) hypertension,Benign essential hypertension TAKE 1 TABLET BY MOUTH EVERY DAY 90 tablet 1 5 Active Active Problems Problem Noted Date Diagnosed [...] with rheumatology. Coronary artery disease invo lving [place] coronary artery of [place] heart 11/26/2018 Cervical spondylosis without myelopathy 04/16/19 18 Overview (03/23/2023): Added automatically from request for surgery [id number] Resolved Problems Problem Noted Date Diagnosed Date Resolved Date Dysuria 05/09/2024 06/09/2024 UTI symptoms 07/23/2023 09/22/2023 Acute cystitis with hematuria 07/23/2023 09/22/2023 Encounters Date Type Department Care Team Description 11/27/2024 Refill [facility] [address] [place] [phone] Boone Kidd MD Essential (primary) hypertension ; Benign essential hypertension 11/16/2024 Telephone [facility] [address] [place] [phone] Boone Kidd MD 10/19/2024 Clinisync Result Encounter [facility] External Department Unsolicited Provider, Generic External Data from Last 3 Months Family History Medical [...] 09/14/2024 1:24 PM EDT Plan of Treatment Health Maintenance Due Date Last Done Comments Pneumococcal Vaccine: 65+ Ye ars (2 of 2 - PCV) 05/01/2012 05/01/2011 Influenza Vaccine (#1) 2024 , 01/13/2023, 12/18/2020, Additional history exists Medicare Annual Wellness (AWV) 09/14/2025 09/14/2024 , 07/08/2021 Procedures Procedure Name Priority Date/Time Associated Diagnosis Comments CA ECHO DOPPLER COMPLETE 10/19/2024 5:44 PM EDT COMPREHENSIVE METABOLIC PANEL Routine 10/18/2024 11:48 AM EDT CBC WITH AUTO DIFFERENTIAL Routine 10/18/2024 11:48 AM EDT from Last 3 Months Results * CA ECHO DOPPLER COMPLETE (10/19/2024 5:44 PM EDT) Anatomical Region Laterality Modality Other 10/19/2024 5:44 PM EDT Narrative 10/19/2024 5:[place] [address] Cardiology Report Signed Patient: TRAVIS MARTINS MR#: [id number] : 1940 Acct:[id number] Age/Sex: 84 / F ADM Date: 10/18/24 Loc: CARD Attending Dr: WILL CUADRA Ordering Physician: WILL CUADRA Date of Service: 10/18/24 Procedure(s): CA echo doppler complete Accession Number(s): [id number] cc: Boone Kidd M.D.; WILL CUADRA Patient Name: TRAVIS MARTINS MR#: [id number] : 1940 Exam Date: 10/18/2024 Ordering Doctor: DR. WILL CUADRA M.D. ECHOCARDIOGRAM REPORT PROCEDURE: CA ECHO DOPPLER COMPLETE INDICATIONS: Cardiotoxic drug therapy, right breast cancer COMPARISON: None. DESCRIPTION: COMPLETE ECHOCARDIOGRAM Real-time transthoracic echocardiography with 2D, M-mode, spectral and color flow Doppler performed. QUALITY: Technical quality was good. LEFT VENTRICLE: Normal chamber size. Mild concentric left ventricular hypertrophy. LV EF: Global left ventricular systolic function is normal; visually estimated ejection fraction is 55 to 60%. Calculated left ventricular ejection fraction is 58%. Abnormal septal motion; may be related to bundle branch block. DIASTOLIC: Unable to assess diastolic function. ATRIAL SEPTUM: Visually appears intact. LEFT ATRIUM: Moderate dilatation. RIGHT ATRIUM: Normal chamber size. RIGHT VENTRICLE: Normal chamber size. Normal right ventricular systolic function. TRICUSPID VALVE: Normal mobility and thickness. No stenosis with moderate to severe regurgitation. Doppler studies reveal moderately (45-60) elevated right sided pressures. RVSP 53 mmHg MITRAL VALVE: Normal mobility and thickness. No evidence of mitral valve stenosis. There is no mitral annular calcification. Mild to moderate mitral regurgitation. AORTIC VALVE: Normal trileaflet appearance. Mildly calcified aortic valve. Normal leaflet mobility. No evidence of aortic valve stenosis. No aortic regurgitation. AORTIC ROOT: Normal diameter and appearance. Ascending aorta is normal in size. PULMONIC VALVE: Normal thickness and mobility. No stenosis. No regurgitation. PERICARDIUM: No evidence of pericardial effusion. IVC: Collapses with inspiration. STRAIN: Global peak strain four-chamber -13.9%, global strain 2 chamber -16.4%, global strain AP long axis -11.3% global peak APLAX -11.3%, GLS average - 13.9%. No prior studies to compare. CONCLUSION: 1. Global ventricular systolic function is normal; visually estimated ejection fraction is 55 to 60% 2. Normal right ventricular size and systolic function 3. Mild left ventricular hypertrophy 4. The left atrium is moderately dilated 5. Moderate to severe tricuspid regurgitation 6. Moderately elevated right ventricular systolic pressure; RVSP 53 mmHg 7. Mild to moderate mitral regurgitation Adult Echocardiography Procedure Report Left Ventricle LVEDD (3.7 - 5.6 cm): 3.32 cm LVESD (2.2 - 4.0 cm): 2.75 cm LVIVS thickness (0.6 - 1.2 cm): 1.32 cm LVPW thickness (0.5 - 1.0 cm): 1.21 cm LVOT Max Gradient: 1.67 mm[Hg] LVOT Area (cm2): 0.65 m/s Peak Velocity (LVOT): 0.65 m/s Mean Velocity (LVOT): 0.48 m/s LVOT Diameter 2.09 cm Left Ventricular Ejection Fraction: 68.22 % Left Atrium LA Volume Index (2D A2C): 46.08 ml/m2 Left Atrium Systolic Dimension: 2.91 cm Mitral Valve MV E to A Ratio: 0.95 Mitral Valve A-Wave Peak Velocity: 0.78 m/s Mitral Valve E-Wave Peak Velocity: 0.74 m/s Right Ventricle Aorta AO Root Diam: 3.16 cm Ascending Ao Diam: 3.06 cm Aortic Valve AoV Area (Peak Johan): 2.20 cm2, 2.20 cm2 AoV Area (VTI): 2.54 cm2, 2.54 cm2 Peak Velocity(Antegrade Flow): 1.01 m/s Peak Gradient(Antegrade Flow): 4.06 mm[Hg] Mean Velocity(Antegrade Flow): 0.68 m/s Mean Gradient(Antegrade Flow): 2.13 mm[Hg] Velocity Time Integral: 22.11 cm Tricuspid Valve Peak Velocity (Regurgitant Flow): 3.23 m/s, 3.52 m/s, 2.79 m/s Pulmonic Valve Peak Velocity: 0.55 m/s Peak Gradient: 1.21 mm[Hg] Right Atrium Right Atrium Systolic Pressure: 47.85 ml, 47.85 ml Dictated by: Jimmy Cirstobal M.D. on 10/19/2024 at 17:35 Approved by: Jimmy Cristobal M.D. on 10/19/2024 at 17:44 Dictated By: Jimmy Cristobal M.D. Signed By: 10/19/24 1745 DD/ 43 TD/TT: Talent Sourcer: Procedure Note Radiology, Radiologist, MD - 10/19/[address] [address] Cardiology Report Signed Patient: TRAVIS MARTINS [facility]#: [id number] : 1940cct:[id number] Age/Sex: 84 / FADM Date: 10/18/24 Loc: CARD Attending Dr: WILL CUADRA Ordering Physician: WILL CUADRA Date of Service: 10/18/24 Procedure(s): CA echo doppler complete Accession Number(s): [id number] cc: Boone Kidd M.D.; WILL CUADRA Patient Name: TRAVIS MARTINS MR#: [id number] : 1940 Exam Date: 10/18/2024 Ordering Doctor: DR. WILL CUADRA M.D. ECHOCARDIOGRAM REPORT PROCEDURE: CA ECHO DOPPLER COMPLETE INDICATIONS: Cardiotoxic drug therapy, right breast cancer COMPARISON: None. DESCRIPTION: COMPLETE ECHOCARDIOGRAM Real-time transthoracic echocardiography with 2D, M-mode, spectral and color flow Dopplerperformed. QUALITY: Technical quality was good. LEFT VENTRICLE: Normal chamber size. Mild concentric left ventricular hypertrophy. LV EF: Global left ventricular systolic function is normal; visually estimated ejection fraction is 55 to 60%. Calculated left ventricular ejection fraction is 58%. Abnormal septal motion; may be related tobundle branch block. DIASTOLIC: Unable to assess diastolic function. ATRIAL SEPTUM: Visually appears intact. LEFT ATRIUM: Moderate dilatation. RIGHT ATRIUM: Normal chamber size. RIGHT VENTRICLE: Normal chamber size. Normal right ventricularsystolic function. TRICUSPID VALVE: Normal mobility and thickness. No stenosis withmoderate to severe regurgitation. Doppler studies reveal moderately (45-60)elevated right sided pressures. RVSP 53 mmHg MITRAL VALVE: Normal mobility and thickness. No evidence of mitralvalve stenosis. There is no mitral annular calcification. Mild to moderatemitral regurgitation. AORTIC VALVE: Normal trileaflet appearance. Mildly calcified aorticvalve. Normal leaflet mobility. No evidence of aortic valve stenosis. No aortic regurgitation. AORTIC ROOT: Normal diameter and appearance. Ascending aorta is normalin size. PULMONIC VALVE: Normal thickness and mobility. No stenosis. No regurgitation. PERICARDIUM: No evidence of pericardial effusion. IVC: Collapses with inspiration. STRAIN: Global peak strain four-chamber -13.9%, global strain 2chamber -16.4%, global strain AP long axis -11.3% global peak APLAX -11.3%, GLS average - 13.9%. No prior studies to compare. CONCLUSION: 1. Global ventricular systolic function is normal; visually estimatedejection fraction is 55 to 60% 2. Normal right ventricular size and systolic function 3. Mild left ventricular hypertrophy 4. The left atrium is moderately dilated 5. Moderate to severe tricuspid regurgitation 6. Moderately elevated right ventricular systolic pressure; RVSP 53 mmHg 7. Mild to moderate mitral regurgitation Adult Echocardiography Procedure Report Left Ventricle LVEDD (3.7 - 5.6 cm): 3.32 cm LVESD (2.2 - 4.0 cm): 2.75 cm LVIVS thickness (0.6 - 1.2 cm): 1.32 cm LVPW thickness (0.5 - 1.0 cm): 1.21 cm LVOT Max Gradient: 1.67 mm[Hg] LVOT Area (cm2): 0.65 m/s Peak Velocity (LVOT): 0.65 m/s Mean Velocity (LVOT): 0.48 m/s LVOT Diameter 2.09 cm Left Ventricular Ejection Fraction: 68.22 % Left Atrium LA Volume Index (2D A2C): 46.08 ml/m2 Left Atrium Systolic Dimension: 2.91 cm Mitral Valve MV E to A Ratio: 0.95 Mitral Valve A-Wave Peak Velocity: 0.78 m/s Mitral Valve E-Wave Peak Velocity: 0.74 m/s Right Ventricle Aorta AO Root Diam: 3.16 cm Ascending Ao Diam: 3.06 cm Aortic Valve AoV Area (Peak Johan): 2.20 cm2, 2.20 cm2 AoV Area (VTI): 2.54 cm2, 2.54 cm2 Peak Velocity(Antegrade Flow): 1.01 m/s Peak Gradient(Antegrade Flow): 4.06 mm[Hg] Mean Velocity(Antegrade Flow): 0.68 m/s Mean Gradient(Antegrade Flow): 2.13 mm[Hg] Velocity Time Integral: 22.11 cm Tricuspid Valve Peak Velocity (Regurgitant Flow): 3.23 m/s, 3.52 m/s, 2.79 m/s Pulmonic Valve Peak Velocity: 0.55 m/s Peak Gradient: 1.21 mm[Hg] Right Atrium Right Atrium Systolic Pressure: 47.85 ml, 47.85 ml Dictated by: Jimmy Cristobal M.D. on 10/19/2024 at 17:35 Approved by: Jimmy Cristobal M.D. on 10/19/2024 at 17:44 Dictated By: Jimmy Cristobal M.D. Signed By:10/19/241744 DD/ 43 TD/TT: Talent Sourcer: Generic External Data Provider [facility] Final Result * (ABNORMAL) CBC auto differential (10/18/2024 11:48 AM EDT) WHITE BLOOD CELL COUNT, WBC 8.1 4 - 11 x10E9/L [facility] RED BLOOD CELL COUNT, RBC 4.43 3.8 - 5.2 X10E12/L [facility] HEMOGLOBIN 13.9 11.7 - 15.5 g/dL [facility] HEMATOCRIT 41.8 35 - 47 % [facility] MEAN CELL VOLUME, MCV 94 80 - 100 fL [facility] MEAN CELL HEMOGLOBIN, MCH 31.3 27 - 34 pg [facility] MEAN CELL HEMOGLOGIN CONCENTRATION, MCHC 33.2 32 - 36 g/dL [facility] RED CELL DISTRIBUTION WIDTH, RDW 14.5 11.5 - 15 % [facility] PLATELET COUNT 319 150 - 450 X10E9/L [facility] MEAN PLATELET VOLUME, MPV 9.5 7 - 12 fL [facility] % NEUTROPHILS 67.6 % [facility] % LYMPHOCYTES 14.6 % [facility] % MONOCYTES 13.2 % [facility] % EOSINOPHILS 3.5 % [facility] % BASOPHILS 1.1 % [facility] ABSOLUTE NEUTROPHIL 5.5 1.5 - 6.6 10*3/uL [facility] ABSOLUTE LYMPHOCYTE 1.2 1.0 - 3.5 10*3/uL [facility] ABSOLUTE MONOCYTE 1.1(H) 0.0 - 0.9 10*3/uL [facility] ABSOLUTE EOSINOPHIL 0.3 0.0 - 0.4 10*3/uL [facility] ABSOLUTE BASOPHIL 0.1 0.0 - 0.2 10*3/uL [facility] DIFFERENTIAL TYPE AUTOMATED DIFFERENTIAL [facility] Comment: PERFORMED AT [facility] [address],[place] [address] 10/18/2024 11:4 8 AM EDT 10/18/2024 5:50 PM EDT Rosie Yovany WARM IN LAB BLOOD ORDERABLES Final Resu lt [facility] * Comprehensive metabolic panel (10/18/2024 11:48 AM EDT) Sodium 143 134 - 146 mmol/L [facility] Potassium, Bld 4.0 3.5 - 5.0 mmol/L [facility] Chloride 105 98 - 109 mmol/L [facility] Carbon Dioxide 27 22 - 32 mmol/L [facility] Anion Gap 11 5 - 15 mmol/L [facility] BUN 15 5 - 27 mg/dL [facility] Creatinine 0.70 0.40 - 1.00 mg/dL [facility] Comment:METHOD TRACEABLE TO IDMS STANDARD Glucose 80 65 - 99 mg/dL [facility] Calcium 9.4 8.5 - 10.5 mg/dL [facility] TOTAL PROTEIN 6.4 6.0 - 8.0 g/dL [facility] ALBUMIN 4.1 3.2 - 5.3 g/dL [facility] ALKALINE PHOSPHATASE 87 39 - 130 U/L [facility] AST 29 <=41 U/L [facility] ALT 13 <=31 U/L [facility] TOTAL BILIRUBIN 0.6 0.3 - 1.2 mg/dL [facility] EGFR 85 >=60 ml/min/1.7 3sq.m [facility] Comment: Reported eGFR is based on the CKD-EPI 2020 equation that does not use a race coefficient. PERFORMED AT [place] [id number] [facility] [address],[place] [address] 10/18/2024 11:4 8 AM EDT 10/18/2024 5:50 PM EDT Rosie Pedroza WARM IN LAB BLOOD ORDERABLES Final Resu lt [facility] from Last 3 Months Insurance MEDICARE THRIVENT Advance Directives Documents on File Type Date Recorded Patient Block And Case Maker Expl anation Advance Directives and Living Will 11/02/2018 2016-01-24 living [place] Care Teams Casket Assembler Metal Relationship Specialty Start Date End Date Boone Kidd MD PCP - General Family Medicine 06/03/23
--- OUTSIDE RECORDS SUMMARY | 2024-12-30 10:55 | XMS_ITS | Encounter Summary ---
Author Organization [facility] Address [address] [place] [address] Care Team Providers Care Meat Manager Name Role Phone Boone Kidd MD Primary Care Provider [phone] Encounter Details Date Type Department Care Team [...] EDT Narrative 12/01/2023 7:55 PM EDT The [address] [address] Cardiology Report Signed Patient: TRAVIS MARTINS MR#: [id number] : 1940 Acct:[id number] Age/Sex: 83 / F ADM Date: 12/01/23 Loc: CARD Attending Dr: WILL CUADRA Ordering Physician: WILL CUADRA Date of Service: 12/01/23 Procedure(s): CA echo doppler complete Accession Number(s): [id number] cc: Boone iKdd M.D.; WILL CUADRA Patient Name: TRAVIS MARTINS MR#: [id number] : 1940 Exam Date: 12/01/2023 Ordering Doctor: [...] MOORE Signed By: 12/01/231954 DD/ 53 TD/TT: Medical Equipment Repair Technician: Procedure Note Radiology, Radiologist, - 12/01/2023 [place] [address] Cardiology Report Signed Patient: TRAVIS MARTINS MMR#: [id number] : 1Acct:[id number] Age/Sex: 83 / FADM Date: 12/01/23 Loc: CARD Attending Dr: WILL CUADRA Ordering Physician: WILL CUADRA Date of Service: 12/01/23 Procedure(s): CA echo doppler complete Accession Number(s): [id number] cc: Boone Kidd M.D.; WILL CUADRA Patient Name: TRAVIS MARTINS MR#: [id number] : 1940 Exam Date: 12/01/2023 Ordering Doctor: [...] BOBBY MOORE Signed By:12/01/231954 DD/ 53 TD/TT: Medical Equipment Repair Technician: us Generic External Data Provider [facility] Final Result documented in this encounter Visit Diagnoses Not on filedocumented in this encounter Care Teams Meat Manager Relationship Specialty Start Date End Date Boone Kidd MD PCP - General Family Medicine 06/03/23 documented as of this encounter
--- OUTSIDE RECORDS SUMMARY | 2024-12-30 10:55 | XMS_ITS | Encounter Summary ---
Author Organization [facility] Address [address] [place] [address] Care Team Providers Care Power Nut Runner Operator Name Role Phone Boone Kidd MD Primary Care Provider [phone] Encounter Details Date Type Department Care Team (Late st Contact Info) Description 10/27/2023 Clinisync Result Encounter [facility] External Department Unsolicited Boone Kidd MD [address] [place] [phone] Social History Tobacco Use Types Packs/Day Years [...] EDT Narrative 10/27/2023 2:53 PM EDT The [address] [address] Ultrasound Report Signed Patient: TRAVIS MARTINS MR#: [id number] : 1940 Acct:[id number] Age/Sex: 83 / F ADM Date: 10/27/23 Loc: MAMMO Attending Dr: Boone Kidd M.D. Ordering Physician: Boone Kidd M.D. Date of Service: 10/27/23 Procedure(s): US breast RT limited Accession Number(s): [id number] cc: Boone Kidd M.D. Patient Name: TRAVIS MARTINS MR#: [id number] : 1940 Exam Date: 10/27/2023 Ordering Doctor: [...] Treatments None Family Cancers None LOCATION: The [facility] BREAST COMPOSITION: The breasts are heterogeneously [...] Signed By: 10/27/23 1453 DD/ 1452 TD/TT: Bulk Pigment Reducer: Procedure Note Radiology, Radiologist, - 10/27/2023 [place] [address] Ultrasound Report Signed Patient: TRAVIS MARTINS MMR#: [id number] : 1940cct:[id number] Age/Sex: 83 / FADM Date: 10/27/23 Loc: MAMMO Attending Dr: Boone Kidd M.D. Ordering Physician: Boone Kidd M.D. Date of Service: 10/27/23 Procedure(s): US breast RT limited Accession Number(s): [id number] cc: Boone Kidd M.D. Patient Name: TRAVIS MARTINS MR#: [id number] : 1940 Exam Date: 10/27/2023 Ordering Doctor: [...] Treatments None Family Cancers None LOCATION: The [facility] BREAST COMPOSITION: The breasts are heterogeneously [...] M.D. Signed By:10/27/23 1453 DD/ 1452 TD/TT: Bulk Pigment Reducer: us Boone Kidd MD IMG US PROCEDURES Final Result documented in this encounter Visit Diagnoses Not on filedocumented in this encounter Care Teams Power Nut Runner Operator Relationship Specialty Start Date End Date Boone Kidd MD PCP - General Family Medicine 06/03/23 documented as of this encounter
--- OUTSIDE RECORDS SUMMARY | 2024-12-30 10:55 | XMS_ITS | Encounter Summary ---
Author Organization [facility] Address [address] [place] [address] Care Team Providers Care Supervisor Metal Placing Name Role Phone Boone Kidd MD Primary Care Provider [phone] Encounter Details Date Type Department Care Team (Late st Contact Info) Description 01/29/2024 Orders Only [facility] [address] [facility] [address] Boone Kidd MD [address] [place] [address] Social History Tobacco Use Types Packs/Day Years [...] on filedocumented in this encounter Care Teams Supervisor Metal Placing Relationship Specialty Start Date End Date Boone Kidd MD PCP - General Family Medicine 06/03/23 documented as of this encounter
--- OUTSIDE RECORDS SUMMARY | 2024-12-30 10:55 | XMS_ITS | Encounter Summary ---
Author Organization [facility] Address [address] [place] [address] Care Team Providers Care Finance Business Manager Name Role Phone Boone Kidd MD Primary Care Provider [phone] Encounter Details Date Type Department Care Team (Late st Contact Info) Description 11/03/2023 [facility] Only [facility] [address] [facility] [place] [address] Boone Kidd MD [address] [place] [address] Social History Tobacco Use Types Packs/Day Years [...] on filedocumented in this encounter Care Teams Finance Business Manager Relationship Specialty Start Date End Date Boone Kidd MD PCP - General Family Medicine 06/03/23 documented as of this encounter
--- OUTSIDE RECORDS SUMMARY | 2024-12-30 10:55 | XMS_ITS | Clinical Summary ---
Author Organization [employer] Address [id number] [address] [place] [address] Care Team Providers Care Heater Room Helper Name Role Phone Boone Kidd MD Primary Care Provider [phone] Allergies Active Allergy Reactions Criticality Noted Date [...] in the morning and before bedtime. Active urqpjpyv-bdiz-K A-calcium &mins (THERAGRAN-M) 9 mg iron-400 mcg tablet Take 1 tablet by mouth in the morning. Active cholecalciferol 1,000 units tablet Take 1 tablet (1,000 Units total) by mouth in the morning. Active acetaminophen (TYLENOL ARTHRITIS) 650 mg 8 hr tablet Take 1 tablet (650 mg total) by mouth every 8 (eight) hours as needed for pain. Active ciprofloxacin HCl (CIPRO) 500 mg tablet Take 1 tablet (500 mg total) by mouth in the morning and 1 tablet (500 mg total) before bedtime. Active ondansetron (ZOFRAN) 8 mg tablet Take 1 tablet (8 mg total) by mouth every 8 (eight) hours as needed for nausea or vomiting. 30 tablet 2 01/20/2024 Active FLUoxetine (PROzac) 10 mg capsule Take by mouth. 10/23/2024 Active letrozole (FEMARA) 2.5 mg chemo tabletIndicatio ns:Right breast cancer with T3 tumor, >5 cm in greatest dimension (CMS-HCC) TAKE 1 TABLET BY MOUTH EVERY DAY 90 tablet 3 11/02/2024 Active Active Problems Problem Noted Date Diagnosed Date Chemotherapy induced diarrhea 07/22/2024 HER2-positive carcinoma of right breast 11/18/19 24 Right breast cancer with T3 tumor, >5 cm in greatest dimension 11/13/2023 S/P nasal septoplasty 08/30/2020 Epistaxis 08/01/2020 Dyslipidemia 10/21/2019 Iron deficiency anemia 11/26/2018 Coronary artery disease invo lving [place] coronary artery of [place] heart 11/26/2018 History of coronary artery bypass graft x 2 11/05 Cervical spondylosis without myelopathy 04/16/19 18 Overview (04/16/2017): Added automatically from request for surgery [id number] Resolved Problems Problem Noted Date Diagnosed Date Resolved Date Dependence on respirator (ventilator) status 0 10/21/2019 Other chest pain 10/29/2018 10/21/2019 SOB (shortness of breath) 10/29/2018 Unstable angina 10/29/2018 10/21/2019 Abnormal stress test 10/29/2018 020 Abnormal stress ECG 10/29/2018 10/21/19 20 Overview (11/01/2018): Added automatically from request for surgery [id number] Encounters Date Type Department Care Team Description 12/14/2024 10:30 AM EDT Infusion Carey L [facility] Medical Oncology [address] [place] [phone] HER2-positive carcinoma of right breast (CMS-HCC) (Primary Dx); Right breast cancer with T3 tumor, >5 cm in greatest dimension (CMS-HCC) 12/13/2024 Travel 11/16/2024 10:30 AM EDT Infusion [facility] Medical Oncology [address] [place] [phone] HER2-positive carcinoma of right breast (CMS-HCC) (Primary Dx); Right breast cancer with T3 tumor, >5 cm in greatest dimension (CMS-HCC) 11/16/2024 Orders Only Carey [facility] Medical Oncology [address] [place] [phone] Nia Garcia, RN HER2-positive carcinoma of right breast (CMS-HCC) (Primary Dx); Right breast cancer with T3 tumor, >5 cm in greatest dimension (CMS-HCC); Encounter for monitoring cardiotoxic drug therapy 11/15/2024 Travel 11/02/2024 Refill Carey [facility] Medical Oncology [address] [place] [phone] Topher Cummings MD Right breast cancer with T3 tumor, >5 cm in greatest dimension (CMS-HCC) 10/28/2024 10:45 AM EDT Office Visit Carey Pe[facility] Medical Oncology [address] [place] [phone] Topher Cummings MD HER2-positive carcinoma of right breast (CMS-HCC) (Primary Dx); Right breast cancer with T3 tumor, >5 cm in greatest dimension (CMS-HCC); Encounter for monitoring cardiotoxic drug therapy; Chemotherapy induced diarrhea 10/28/2024 Documentation Carey Hernandez [facility] - Medical Oncology [address] [place] [phone] Alvarez Cullen RN 10/28/2024 Travel 10/19/2024 10:30 AM EDT Infusion Carey Hernandez [facility] - Medical Oncology [address] [place] [phone] HER2-positive carcinoma of right breast (CMS-HCC) (Primary Dx); Right breast cancer with T3 tumor, >5 cm in greatest dimension (CMS-HCC) 10/18/2024 Travel 10/12/2024 Orders Only [facility], A Department of [address] [place] [phone] Topher Cummings MD from Last 3 Months Immunizations Immunization Administration [...] and Family Twice a week 11/25/2018 Attends [employer] Services More than 4 times per year [...] Answer Date Recorded Total Score 0 01/07/2021 [facility] - Occupational [...] Sign Reading Time Taken Comments Blood Pressure 135/75 12/14/2024 10:28 AM EDT Pulse 58 12/14/2024 10:28 AM EDT Temperature 36.9 C (98.5 F) 12/14/2024 10:28 AM EDT Respiratory Rate 16 12/14/2024 10:28 AM EDT Oxygen Saturation 98% 12/14/2024 10:28 AM EDT Inhaled Oxygen Concentration - - Weight 43.5 kg (96 lb) 12/14/2024 10:28 AM EDT Height 147.3 cm (4' 9.99 ) 12/14/2024 10:28 AM E DT Body Mass Index 20.07 12/14/2024 10:28 AM EDT Plan of Treatment Upcoming Encounters Date Type Department Care Team (Late st Contact Info) Description 01/11/2025 10:00 AM EDT Lab [facility] - Lab [address] [place] [phone] Topher Cummings MD [address] [place] [address] 01/12/2025 9:00 AM EDT Office Visit Carey Hernandez [facility] - Medical Oncology [address] [place] [phone] [place] [address] [place] [address] [address] [place] [address] 01/12/2025 9:30 AM EDT Infusion Carey Kelli Hernandez [facility] - Medical Oncology [address] [place], [place] [phone] 01/18/2025 10:30 AM EDT Appointment [facility] - Cardiovascular [address] [place] [phone] Topher Cummings MD [address] [place] [address] Health Maintenance Due Date Last Done Comments Depression Screening 1952 DTaP,Tdap and Td Vaccines (1 - Tdap) 1959 Zoster (Shingles) Vaccine (2 of 2) 02/17/2020 12/23/2019, 2011 COVID-19 Vaccine (7 - Modern a risk season) 2024 02/19/2024, 01/28/2023, 02/21/2022, Additional history exists Influenza Vaccine 12/05/2024 02/05/2024, , 12/18/2020, Additional history exists Fall Risk Screening 11/16/2025 11/16/2024 Tobacco Screening 11/16/2025 11/16/2024 Medical Devices Not on file Procedures Procedure Name Priority Date/Time Associated Diagnosis Comments COMPREHENSIVE METABOLIC PANEL Routine 12/13/2024 10:39 AM EDT HER2-positive carcinoma of right breast (CMS-HCC) Right breast cancer with T3 tumor, >5 cm in greatest dimension (CMS-HCC) Encounter for monitoring cardiotoxic drug therapy Chemotherapy induced diarrhea CBC WITH AUTO DIFFERENTIAL Routine 12/13/2024 10:39 AM EDT HER2-positive carcinoma of right breast (CMS-HCC) Right breast cancer with T3 tumor, >5 cm in greatest dimension (CMS-HCC) Encounter for monitoring cardiotoxic drug therapy Chemotherapy induced diarrhea COMPREHENSIVE METABOLIC PANEL Routine 11/15/2024 10:34 AM EDT HER2-positive carcinoma of right breast (CMS-HCC) Right breast cancer with T3 tumor, >5 cm in greatest dimension (CMS-HCC) Encounter for monitoring cardiotoxic drug therapy Chemotherapy induced diarrhea CBC WITH AUTO DIFFERENTIAL Routine 11/15/2024 10:34 AM EDT HER2-positive carcinoma of right breast (CMS-HCC) Right breast cancer with T3 tumor, >5 cm in greatest dimension (CMS-HCC) Encounter for monitoring cardiotoxic drug therapy Chemotherapy induced diarrhea CBC WITH AUTO DIFFERENTIAL Routine 10/18/2024 11:48 AM EDT Rheumatoid arthritis without rheumatoid factor, multiple sites (CMS-HCC) Other senior living (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 COMPREHENSIVE METABOLIC PANEL Routine 10/18/2024 11:48 AM EDT Rheumatoid arthritis without rheumatoid factor, multiple sites (CMS-HCC) Other medical terminologist (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 from Last 3 Months Results * CBC with auto diff (12/13/2024 10:39 AM EDT) Only the most recent of3 resultswithin the time period is included. [facility] Signature WBC 6.3 4 - 11 x10E9/L 12/13/2024 1:35 PM EDT [facility] RBC Count 4.26 3.8 - 5.2 X10E12/L 12/13/2024 1:35 PM EDT [facility] Hemoglobin 13.3 11.7 - 15.5 g/dL 12/13/2024 1:35 PM EDT [facility] Hematocrit 40.4 35 - 47 % 12/13/2024 1:35 PM EDT [facility] MCV 95 80 - 100 fL 12/13/2024 1:35 PM EDT [facility] MCH 31.2 27 - 34 pg 12/13/2024 1:35 PM EDT [facility] MCHC 33.0 32 - 36 g/dL 12/13/2024 1:35 PM EDT [facility] RDW 13.9 11.5 - 15 % 12/13/2024 1:35 PM EDT [facility] Platelet Count 286 150 - 450 X10E9/L 12/13/2024 1:35 PM EDT [facility] MPV 9.3 7 - 12 fL 12/13/2024 1:35 PM EDT [facility] Neutrophils % 63.9 % 12/13/2024 1:35 PM EDT [facility] Lymphocytes % 18.8 % 12/13/2024 1:35 PM EDT [facility] Monocytes % 10.1 % 12/13/2024 1:35 PM EDT [facility] Eosinophils % 5.1 % 12/13/2024 1:35 PM EDT [facility] Basophils % 2.1 % 12/13/2024 1:35 PM EDT [facility] Neutrophils Absolute (A) 4.0 1.5 - 6.6 10*3/uL 12/13/2024 1:35 PM EDT [facility] Lymphocytes Absolute 1.2 1.0 - 3.5 10*3/uL 12/13/2024 1:35 PM EDT [facility] Monocytes Absolute 0.6 0.0 - 0.9 10*3/uL 12/13/2024 1:35 PM EDT [facility] Eosinophils Absolute 0.3 0.0 - 0.4 10*3/uL 12/13/2024 1:35 PM EDT [facility] Basophils Absolute 0.1 0.0 - 0.2 10*3/uL 12/13/2024 1:35 PM EDT [facility] Differential Type AUTOMATED DIFFERENTIAL 12/13/2024 1:35 PM EDT [facility] Blood Venous blood / Unknown Venipuncture / Unknown 12/13/2024 10:39 AM EDT 12/13/2024 10:39 AM EDT us Topher Cummings MD LAB BLOOD ORDERABLES Final Resul t [facility] [address] [place] [address], [place] [phone] * (ABNORMAL) Comprehensive metabolic panel (12/13/2024 10:39 AM EDT) Only the most recent of3 resultswithin the time period is included. SODIUM 140 134 - 146 mmol/L 12/13/2024 7:56 PM EDT [facility] POTASSIUM 3.9 3.5 - 5.0 mmol/L 12/13/2024 7:56 PM EDT [facility] CHLORIDE 106 98 - 109 mmol/L 12/13/2024 7:56 PM EDT [facility] CARBON DIOXIDE 25 22 - 32 mmol/L 12/13/2024 7:56 PM EDT [facility] ANION GAP 9 5 - 15 mmol/L 12/13/2024 7:56 PM EDT [facility] BLOOD UREA NITROGEN 16 5 - 27 mg/dL 12/13/2024 7:56 PM EDT [facility] CREATININE 0.68 0.40 - 1.00 mg/dL 12/13/2024 7:56 PM EDT [facility] Comment:METHOD TRACEABLE TO IDMS STANDARD GLUCOSE 103(H) 65 - 99 mg/dL 12/13/2024 7:56 PM EDT [facility] CALCIUM 9.5 8.5 - 10.5 mg/dL 12/13/2024 7:56 PM EDT [facility] TOTAL PROTEIN 6.3 6.0 - 8.0 g/dL 12/13/2024 7:56 PM EDT [facility] ALBUMIN 3.7 3.2 - 5.3 g/dL 12/13/2024 7:56 PM EDT [facility] ALKALINE PHOSPHATASE 80 39 - 130 U/L 12/13/2024 7:56 PM EDT [facility] AST 26 <=41 U/L 12/13/2024 7:56 PM EDT [facility] ALT 13 <=31 U/L 12/13/2024 7:56 PM EDT [facility] BILIRUBIN,TOTAL 0.5 0.3 - 1.2 mg/dL 12/13/2024 7:56 PM EDT [facility] EGFR Non-Race Dependent 86 >=60 ml/min/1.7 3sq.m 12/13/2024 7:56 PM EDT [facility] Comment: Reported eGFR is based on the CKD-EPI 2020 equation that does not use a race coefficient. Blood Venous blood / Unknown Venipuncture / Unknown 12/13/2024 10:39 AM EDT 12/13/2024 10:39 AM EDT Topher Cummings MD LAB BLOOD ORDERABLES Final Resul t [facility] [address] [place] [address], [place] [phone] from Last 3 Months Insurance [facility] Advance Directives * Full Code (Latest Code Status on File) Date Activated Date Inactivated Comments 10/29/2018 3:22 PM 11/07/2018 5:21 PM Care Teams Heater Room Helper Relationship Specialty Start Date End Date Boone Kidd MD PCP - General Family Medicine 02/09/24
--- OUTSIDE RECORDS SUMMARY | 2024-12-30 10:55 | XMS_ITS | Encounter Summary ---
Author Organization [facility] Address [address] [place] [address] Care Team Providers Care Jammer Hooker Name Role Phone Wil Ewing MD Primary Care Provider [phone] Encounter Details Date Type Department Care Team (Late st Contact Info) Description 06/11/2023 Clinisync Result Encounter [facility] External Department Unsolicited Wil Ewing MD [address] [place] [phone] Social History Tobacco Use Types Packs/Day Years [...] AM EST Narrative 06/11/2023 7:10 AM EST The [address] [address] XRay Report Signed Patient: TRAVIS MARTINS MR#: [id number] : 1940 Acct:[id number] Age/Sex: 83 / F ADM Date: 06/10/23 Loc: [facility] Attending Dr: Wil Ewing M.D. Ordering Physician: Wil Ewing M.D. Date of Service: 06/10/23 Procedure(s): XR lumbar spine 2-3V Accession Number(s): [id number] cc: Wil Ewing M.D. [address] [address] Patient Name: TRAVIS MARTINS MRN: [id number] date: 1940 Sex: F Assigned Patient Location: [facility] Current Patient Location: Accession/Order Number: [id number] Exam Date: 06/10/2023 12:12 Report Date: 06/11/2023 [...] thoracic and lumbar spine. Electronically authenticated by: RADHA CORREA Date: 06/11/2023 07:08 Dictated By: Radha Correa M.D. Signed By: 06/11/2310 DD/ 7 TD/TT: Land Management Forester: Procedure Note Radiology, Radiologist, MD - 06/11/2023 The [place] [id number] XRay Report Signed Patient: TRAVIS MARTINS MMR#: [id number] : 1940cct:[id number] Age/Sex: 83 / FADM Date: 06/10/23 Loc: RAD Attending Dr: Wil Ewing M.D. Ordering Physician: Wil Ewing M.D. Date of Service: 06/10/23 Procedure(s): XR lumbar spine 2-3V Accession Number(s): [id number] cc: Wil Ewing M.D. The [place] [address] Patient Name: TRAVIS MARTINS MRN: [id number] date: 1940 Sex: F Assigned Patient Location: [facility] Current Patient Location: Accession/Order Number: [id number] Exam Date: 06/10/2023 12:12 Report Date: 06/11/2023 [...] thoracic and lumbar spine. Electronically authenticated by: RADHA CORREA Date: 06/11/2023 07:08 Dictated By: Radha Correa M.D. Signed By:06/11/23709 DD/ 7 TD/TT: Land Management Forester: Wil Ewing MD IMG XR PROCEDURES Final Result documented in this encounter Visit Diagnoses Not on filedocumented in this encounter Care Teams Jammer Hooker Relationship Specialty Start Date End Date Wil Ewing MD PCP - General Family Medicine 06/03/23 documented as of this encounter
--- OUTSIDE RECORDS SUMMARY | 2024-12-30 10:55 | XMS_ITS | Encounter Summary ---
Author Organization [facility] Address [address] [place] [address] Care Team Providers Care Naval Gunfire Spotter Name Role Phone Carin Brady DO Primary Care Provider [phone] Boone Kidd MD Primary Care Provider [phone] Boone Kidd MD Primary Care Provider [phone] Reason for Visit * Reason Comments Med Refill Encounter Details Date Type Department Care Team (Late st Contact Info) Description 02/12/2023 Refill [facility] Family Medicine [address] [place] [address] Carin Brady DO [address] [phone] Social History Tobacco Use Types Packs/Day Years [...] on filedocumented in this encounter Care Teams Naval Gunfire Spotter Relationship Specialty Start Date End Date Carin Brady DO PCP - General Family Medicine 08/12/22 03/22/23 Boone Kidd MD PCP - General Family Medicine 03/23/23 06/02/23 Boone Kidd MD PCP - General Family Medicine 06/03/23 documented as of this encounter
--- OUTSIDE RECORDS SUMMARY | 2024-12-30 10:55 | XMS_ITS | Encounter Summary ---
Author Organization [facility] Address [address] [place] [address] Care Team Providers Care World Travel Counselor Name Role Phone Wil Ewing MD Primary Care Provider [phone] Encounter Details Date Type Department Care Team (Late st Contact Info) Description 11/03/2023 Clinisync Result Encounter [facility] External Department Unsolicited Wil Ewing MD [address] [place] [phone] Social History Tobacco Use Types Packs/Day Years [...] EDT Narrative 11/03/2023 2:19 PM EDT The [address] [address] Ultrasound Report Signed Patient: TRAVIS MARTINS MR#: [id number] : 1940 Acct:[id number] Age/Sex: 83 / F ADM Date: 11/03/23 Loc: US Attending Dr: Wil Ewing M.D. Ordering Physician: Wil Ewing M.D. Date of Service: 11/03/23 Procedure(s): US breast vac bx w/ clip RT Accession Number(s): [id number] cc: Wil Ewing M.D. The [address] [address] Patient Name: TRAVIS MARTINS MRN: [id number] date: 1940 Sex: F Assigned Patient Location: [place] Current Patient Location: [place] Accession/Order Number: [id number] Exam Date: 11/03/2023 12:45 Report Date: 11/03/2023 [...] Signed By: 11/03/23 1419 DD/ 1417 TD/TT: Football Coach: Procedure Note Radiology, Radiologist, MD - 11/03/2023 The [place] [id number] Ultrasound Report Signed Patient: TRAVIS MARTINS MMR#: [id number] : 1940cct:[id number] Age/Sex: 83 / FADM Date: 11/03/23 Loc: US Attending Dr: Wil Ewing M.D. Ordering Physician: Wil Ewing M.D. Date of Service: 11/03/23 Procedure(s): US breast vac bx w/ clip RT Accession Number(s): [id number] cc: Wil Ewing M.D. The [address] [address] Patient Name: TRAVIS MARTINS MRN: [id number] date: 1940 Sex: F Assigned Patient Location: [place] Current Patient Location: [place] Accession/Order Number: [id number] Exam Date: 11/03/2023 12:45 Report Date: 11/03/2023 [...] M.D. Signed By:11/03/23 1419 DD/ 1417 TD/TT: Football Coach: us Wil Ewing MD IMG XR PROCEDURES Final Result documented in this encounter Visit Diagnoses Not on filedocumented in this encounter Care Teams World Travel Counselor Relationship Specialty Start Date End Date Wil Ewing MD PCP - General Family Medicine 06/03/23 documented as of this encounter
--- OUTSIDE RECORDS SUMMARY | 2024-12-30 10:55 | XMS_ITS | Encounter Summary ---
Author Organization [facility] Address [address] [place] [address] Care Team Providers Care Bread Panner Name Role Phone Boone Kidd MD Primary Care Provider [phone] Encounter Details Date Type Department Care Team (Late st Contact Info) Description 10/27/2023 Clinisync Result Encounter [facility] External Department Unsolicited Boone Kidd MD [address] [place] [phone] Social History Tobacco Use Types Packs/Day Years [...] EDT Narrative 10/27/2023 2:53 [place] [address] Mammography Report Signed Patient: TRAVIS MARTINS MR#: [id number] : 1940 Acct:[id number] Age/Sex: 83 / F ADM Date: 10/27/23 Loc: MAMMO Attending Dr: Boone Kidd M.D. Ordering Physician: Boone Kidd M.D. Results: Date of Service: 10/27/23 Follow Up: Procedure(s): MM diagnostic mammo unilat RT Accession Number(s): [id number] cc: Boone iKdd M.D. Patient Name: TRAVIS MARTINS MR#: [id number] : 1940 Exam Date: 10/27/2023 Ordering Doctor: [...] Treatments None Family Cancers None LOCATION: [facility] BREAST COMPOSITION: The breasts are heterogeneously [...] Signed By: 10/27/23 1453 DD/ 1452 TD/TT: Lithographic Artist: Procedure Note Radiology, Radiologist, MD - 10/27/2023 [place] [address] Mammography Report Signed Patient: TRAVIS MARTINS MMR#: [id number] : 1940cct:[id number] Age/Sex: 83 / FADM Date: 10/27/23 Loc: MAMMO Attending Dr: Boone Kidd M.D. Ordering Physician: Boone Kidd M.D.Results: Date of Service: 10/27/23Follow Up: Procedure(s): MM diagnostic mammo unilat RT Accession Number(s): [id number] cc: Boone Kidd M.D. Patient Name: TRAVIS MARTINS MR#: [id number] : 1940 Exam Date: 10/27/2023 Ordering Doctor: [...] Treatments None Family Cancers None LOCATION: [facility] BREAST COMPOSITION: The breasts are heterogeneously [...] M.D. Signed By:10/27/23 1453 DD/ 1452 TD/TT: Lithographic Artist: Boone Kidd MD IMG BI PROCEDURES Final Result documented in this encounter Visit Diagnoses Not on filedocumented in this encounter Care Teams Bread Panner Relationship Specialty Start Date End Date Boone Kidd MD PCP - General Family Medicine 06/03/23 documented as of this encounter
[2024-12-30 11:00] LABS: Hematocrit 40.6 % (36.0-48.0); Hemoglobin 13.5 g/dL (12.0-16.0); Immature Granulocytes Abs Auto 0.02 10^3/uL (0.00-0.03); Immature Granulocytes Pct Auto 0.2 % (0.0-0.5); Lymphocytes Absolute Auto 1.2 10^3/uL (1.2-3.8); Mean Corpuscular HGB Conc 33.3 g/dL (29.9-35.2); Mean Corpuscular Hemoglobin 31.9 pg (26.7-34.0); Mean Corpuscular Volume 96.0 fL (81.0-99.0); Platelet Count 275 10^3/uL (150-450); Red Blood Count 4.23 10^6/uL (4.20-5.40); White Blood Count 8.3 10^3/uL (4.0-11.0)
[2024-12-30 11:00] LABS: Glucose Urine UA NEGATIVE (NEGATIVE)
--- OUTSIDE RECORDS SUMMARY | 2024-12-30 11:00 | XMS_ITS | CCD ---
Author Organization [facility] Care Team Providers Care Patent Paralegal Name Role Phone DO Carin Brady Primary [...] NADERER, DR BOONE Waldrop Primary Care Unavailable HALADADylan, DR MONTOYA Consulting Unavailable MD Boone Ewing Attending Provider Boone Ewing MD Primary Care Provider Boone Ewing Attending Unavailable Naderemary, Boone Admitting Unavailable Haladadylan, Jan Attending Unavailable Haladadylan, Jan Admitting Unavailable Naderemary, Boone Primary Care Unavailable Boone Ewing MD Primary Care Provider Boone Ewing MD Primary Care Provider Marti WALSH, Boone Primary Care Provider [phone] Marti WALSH, Boone Primary Care Provider NADZENAR, BOONE Referring Unavailable NADERER, BOONE Primary Care Unavailable NADERER, BOONE Referring Unavailable NADERER, BOONE Primary Care Unavailable NADERER, BOONE Referring Unavailable NADERER, BOONE Primary Care Unavailable NADERER, BOONE Attending Unavailable NADERER, BOONE Attending Unavailable NADERER, BOONE Attending Unavailable NADERER, BOONE Attending Unavailable NADERER, BOONE Attending Unavailable NADERER, BOONE Attending Unavailable BIJU RETANA Attending Unavailable NADERER, BOONE Referring Unavailable NADERER, BOONE Attending Unavailable Nadmadeline WALSH, Boone Primary Care Provider Boone Ewing MD Primary Care Provider Boone Ewing MD Attending Provider NADMADELINE, BOONE Referring Unavailable NADERER, BOONE Primary Care Unavailable NADERER, BOONE Referring Unavailable NADERER, BOONE Primary Care Unavailable KHALIF, SOLIS N Referring Unavailable NADERER, BOONE Primary Care Unavailable NADERER, BOONE Referring Unavailable NADERER, BOONE Primary Care Unavailable KHALIF, SOLIS N Attending Unavailable NADERER, BOONE Referring Unavailable NADERER, BOONE Primary Care Unavailable KHALIF, SOLIS N Referring Unavailable NADERER, BOONE Primary Care Unavailable NADERER, BOONE Referring Unavailable NADERER, BOONE Primary Care Unavailable KHALIF, SOLIS N Referring Unavailable NADERER, BOONE Primary Care Unavailable NADERER, BOONE Referring Unavailable NADERER, BOONE Primary Care Unavailable KHALIF, SOLIS N Referring Unavailable NADERER, BOONE Primary Care Unavailable NADERER, BOONE Referring Unavailable NADERER, BOONE Primary Care Unavailable KHALIF, SOLIS N Referring Unavailable NADERER, BOONE Primary Care Unavailable KHALIF, SOLIS N Attending Unavailable KHALIF, SOLIS N Referring Unavailable NADERER, BOONE Primary Care Unavailable NADERER, BOONE Referring Unavailable NADERER, BOONE Primary Care Unavailable MICJULIANNE Jasso Attending Unavailable NADERER, BOONE Referring Unavailable NADERER, BOONE Primary Care Unavailable KHALIF, SOLIS N Attending Unavailable NADERER, BOONE Referring Unavailable NADERER, BOONE Primary Care Unavailable KHALIF, SOLIS N Referring Unavailable NADERER, BOONE Primary Care Unavailable NADERER, BOONE Referring Unavailable NADERER, BOONE Primary Care Unavailable KHALIF, SOLIS N Referring Unavailable NADERER, BOONE Primary Care Unavailable NADERER, BOONE Referring Unavailable NADERER, BOONE Primary Care Unavailable MIREYAJAN MASON Referring Unavailable NADERER, BOONE Primary Care Unavailable KHALIF, SOLIS N Referring Unavailable NADERER, BOONE Primary Care Unavailable NADERER, BOONE Referring Unavailable NADERER, BOONE Primary Care Unavailable KHALIF, SOLIS N Attending Unavailable KHALIF, SOLIS N Referring Unavailable NADERER, BOONE Primary Care Unavailable KHALIF, SOLIS N Attending Unavailable NADERER, BOONE Referring Unavailable NADERER, BOONE Primary Care Unavailable KHALIF, SOLIS N Referring Unavailable NADERER, BOONE Primary Care Unavailable NADERER, BOONE Referring Unavailable NADERER, BOONE Primary Care Unavailable KHALIF, SOLIS N Referring Unavailable NADERER, BOONE Primary Care Unavailable NADERER, BOONE Referring Unavailable NADERER, BOONE Primary Care Unavailable NADERER, BOONE Referring Unavailable NADERER, BOONE Primary Care Unavailable NICOLETTE GUAJARDO Referring Unavailable NADERER, BOONE Primary Care Unavailable NADERER, BOONE Referring Unavailable NADERER, BOONE Primary Care Unavailable NICOLETTE GUAJARDO Referring Unavailable NADERER, BOONE Primary Care Unavailable NADERER, BOONE Referring Unavailable NADERER, BOONE Primary Care Unavailable KHALIF, SOLIS N Attending Unavailable NADERER, BOONE Referring Unavailable NADERER, BOONE Primary Care Unavailable KHALIF, SOLIS N Referring Unavailable NADERER, BOONE Primary Care Unavailable NADERER, BOONE Referring Unavailable NADERER, BOONE Primary Care Unavailable KHALIF, SOLIS N Referring Unavailable NADERER, BOONE Primary Care [...] tablet (20 sources) Bisphosphonate Start: 10-15-2017 End: 12-09-2024 take 1 tablet by mouth every week Alendronate 70 mg tablet Active 70 MG PO every week December 12, 2024 12:00am Complies with drug therapy amLODIPine 5 mg oral tablet (20 sources) Dihydropyridine Calcium Channel Ramiro Start: 12-18-2018 take 1 tablet by mouth once daily Amlodipine 5 mg tablet Active 5 MG PO Daily December 09, 2024 12:00am Complies with drug therapy aspirin 81 mg oral tablet (20 sources) Platelet Aggregation Inhibitor, Nonsteroidal Anti-inflammatory Drug Start: 12-09-2024 take 1 tablet by mouth in the morning Aspirin 81 mg tablet Active 81 MG PO .AM December 09, 2024 12:00am Complies with drug therapy take 1 tablet by mouth in the mo rning aspirin 81 mg Take 1 tablet (81 mg total) by mouth in the morning. 30 tablet 11 Active atorvastatin 80 mg oral tablet (20 sources) HMG-CoA Reductase Inhibitor Start: 12-18-2018 take 1 tablet by mouth once daily at bedtime Atorvastatin 80 mg tablet Active 80 MG PO Daily at bedtime December 09, 2024 12:00am Complies with drug therapy calcium carbonate 1250 mg / cholecalciferol 200 [...] morning. Active ciprofloxacin 500 mg oral tablet (20 sources) Quinolone Antimicrobial Start: End: take 1 tablet by mouth in the morning ciprofloxacin (Cipro) 500 MG tablet Indications: Urinary tract infection without hematuria, site unspecified Take 1 tablet (500 mg) by mouth in the morning and 1 tablet (500 mg) before bedtime. Do all this for 7 days. 14 tablet 08/30/2024 09/06/2024 Active Cranberry Extract (20 sources) Non-Standardized Food Allergenic Extract, Non-Standardized Plant Allergenic Extract Start: 025 take 1 capsule by mouth once daily Cranberry Extract 250 mg capsule Active 250 MG PO Daily December 09, 2024 12:00am administer with a meal Complies with drug therapy Cranberry 250 MG capsule Take by mouth Active take 1 capsule by mouth at bedti me cranberry 500 mg capsule Take by mouth in the morning and before bedtime. Active take 1 capsule by mouth twice da elva cranberry 500 mg capsule Take by mouth 2 (two) times a day. Active take 1 capsule by mouth twice da elva cranberry 500 mg capsule Take by mouth 2 (two) times a day. 0 Active famotidine 20 mg oral tablet (20 sources) Histamine-2 Receptor Antagonist Start: 01-25-2017 End: 12-09-2024 famotidine (PEPCID) 20 mg tablet Take 1 tablet (20 mg total) by mouth as needed. 3 01/25/2017 Active FLUoxetine 10 mg oral capsule (20 sources) Serotonin Reuptake Inhibitor Start: 10-23-2024 take 1 capsule by mouth once daily Fluoxetine 10 mg capsule Active 10 MG PO Daily December 09, 2024 12:00am Complies with drug therapy Start: 08-30-2024 take 1 capsule by mo uth once daily FLUoxetine (PROzac) 10 MG capsule Indications: Major depressive disorder, recurrent, moderate (HCC) TAKE 1 CAPSULE BY MOUTH EVERY DAY 30 capsule 3 08/30/2024 Active Start: 05-09-2024 take 1 capsule by mo uth once daily FLUoxetine (PROzac) 10 MG capsule Indications: Major depressive disorder, recurrent, moderate (CMS/HCC) Take 1 capsule (10 mg) by mouth Daily 30 capsule 3 05/09/2024 Active leflunomide 20 mg oral tablet (20 sources) Antirheumatic Agent Start: 12-09-2024 take 1 tablet by mouth in the morning Leflunomide (Arava) 20 mg tablet Active 20 MG PO .AM December 09, 2024 12:00am Complies with drug therapy letrozole 2.5 mg oral tablet (20 sources) Aromatase Inhibitor Start: 11-18-2023 End: 11-12-2024 take 1 tablet by mouth once daily Letrozole 2.5 mg tablet Active 2.5 MG PO Daily December 09, 2024 12:00am Complies with drug therapy levothyroxine sodium 0.05 mg oral tablet (20 sources) l-Thyroxine Start: 12-09-2024 take 1 tablet by mouth once daily Levothyroxine 50 mcg tablet Active 50 MCG PO Daily December 09, 2024 12:00am Complies with drug therapy Start: 09-21-2024 take 1 tablet by [place] [facility] once daily levothyroxine (Synthroid, Levoxyl) 50 MCG tablet Indications: Hypothyroidism , Hypothyroidism, unspecified Take 1 tablet (50 mcg) by mouth Daily 90 tablet 3 09/21/2024 Active Start: 10-15-2017 End: 12-09-2024 take 1 tablet by mouth once daily Levothyroxine 25 mcg Capsule Discontinued 1 TAB PO Daily October 15, 2017 12:00am December 09, 2024 12:11pm Start: 01-25-2017 take 1 tablet by [place] [facility] in the morning levothyroxine (SYNTHROID, LEVOTHROID) 25 MCG tablet Take 1 tablet (25 mcg total) by mouth in the morning. 3 01/25/2017 Active 24 hr metoprolol succinate 100 mg extended release oral tablet (20 sources) beta-Adrenergic Ramiro Start: 12-09-2024 take 1 tablet by mouth once daily Metoprolol Succinate 100 mg tablet extended release 24 hr Active 100 MG PO Daily December 09, 2024 12:00am Complies with drug therapy Start: 04-28-2024 take 1 tablet by [place] [facility] once daily metoprolol succinate XL (Toprol-XL) 100 MG 24 hr tablet Indications: Essential (primary) hypertension , Benign essential hypertension TAKE 1 TABLET BY MOUTH [...] 3 01/08/2022 Active Multiple Vitamin (multivitamin) tablet (17 sources) take 1 tablet by [place] [facility] once daily Multiple Vitamin (multivitamin) tablet Take 1 tablet by mouth Daily Active xnlqtatd-gyaq-HO-calcium &mi ns (THERAGRAN-M) 9 mg iron-400 mcg tablet (20 sources) lczqogsb-ljkg-OT -calcium &mins (THERAGRAN-M) 9 mg iron-400 mcg tablet Take 1 tablet by mouth in the morning. Active lbnexskv-dixx-NK -calcium &mins (THERAGRAN-M) 9 mg iron-400 mcg tablet Take 1 tablet by mouth in the morning. 0 Active Multivitamin With Minerals (Multiple Vitamin-Minerals) tablet (1 source) Start: 12-09-2024 take 1 tablet by mouth once daily Multivitamin With Minerals (Multiple Vitamin-Minerals) tablet Active 1 TAB PO Daily December 09, 2024 12:00am Complies with drug therapy ondansetron 8 mg oral tablet (20 sources) Serotonin-3 Receptor Antagonist Start: 01-20-2024 take [...] tablet (20 sources) Cholinergic Muscarinic Antagonist Start: 12-09-2024 take 1 tablet by mouth once daily Oxybutynin Chloride 10 mg tablet extended release 24hr Active 10 MG PO Daily December 09, 2024 12:00am Complies with drug therapy Start: 06-26-2023 End: 07-01-2024 take 1 tablet by mouth once daily oxybutynin XL (Ditropan-XL) 10 MG 24 hr tablet Indications: Overactive bladder Take 1 tablet (10 mg) by mouth Daily Do not crush, chew, or split. 90 tablet 3 07/01/2024 Active Start: 04-10-2023 take 1 tablet by [facility] [facility] every twenty-four hours in the morning oxybutynin XL (DITROPAN-XL) 10 mg 24 hr tablet Take 1 tablet (10 mg total) by mouth in the morning. 04/10/2023 Active predniSONE 50 mg oral tablet (17 sources) Start: 05-09-2024 End: 05-15-2024 take 1 tablet by mouth once daily predniSONE (Deltasone) 50 MG tablet Indications: Degeneration of intervertebral disc of lumbar region with discogenic back pain and lower extremity pain Take 1 tablet (50 mg) by mouth Daily for 6 days 6 tablet 05/09/2024 05/15/2024 Active Start: 10-15-2017 End: 12-09-2024 take 1 tablet by mouth once Prednisone 2.5 mg Tablet Discontinued 1 TAB PO every Thursday, Thursday, and Sunday October 15, 2017 12:00am December 09, 2024 12:12pm Start: 10-15-2017 take 1 tablet by mouth once Pr ednisone Active 1 TAB PO every Thursday, Thursday, and Sunday October 15, 2017 12:00am Start: 10-15-2017 End: 12-09-2024 take 1 tablet by mouth once Prednisone 5 mg Tablet Dis continued 1 TAB PO every Thursday, , Thursday, and Sunday October 15, 2017 12:00am December 09, 2024 12:12pm Start: 10-15-2017 take 1 tablet by mouth [...] Thu, Thu) 0 04/10/2023 Discontinued (Therapy completed) traMADol hydrochloride 50 mg oral tablet (4 sources) Opioid Agonist Start: 12-12-2024 take 1 tablet by mouth three times daily as needed Tramadol 50 mg tablet Active 50 MG PO Three times daily as needed December 12, 2024 12:00am Complies with drug therapy Start: 05-09-2024 End: 05-16-2024 take 1 tablet [...] Drug Class(es) Dates Sig (Normalized) Sig (Original) atenolol 25 mg oral tablet (5 sources) beta-Adrenergic Ramiro Start: 10-15-2017 End: 12-09-2024 take 1 tablet by mouth once daily Atenolol 25 mg Tablet Discontinued 1 TAB PO Daily October 15, 2017 12:00am December 09, 2024 12:08pm diclofenac sodium 0.01 mg/mg topical gel (2 sources) Nonsteroidal Anti-inflammatory Drug End: 04-10-2023 diclofenac sodium (VOLTAREN) 1 % gel Apply 2 g topically 3 (three) times a day as needed. 0 04/10/2023 Discontinued (Therapy completed) folic acid 1 mg oral tablet (5 sources) Start: 10-15-2017 End: 12-09-2024 take 1 tablet by mouth once daily Folic Acid 1 mg Tablet Discontinued 1 TAB PO Daily October 15, 2017 12:00am December 09, 2024 12:11pm 10 ml hyaluronidase-zzx f 2000 unt/ml / pertuzumab-zzxf 60 mg/ml / trastuzumab-zzxf 60 mg/ml injection (15 sources) Endoglycosidase, HER2/noe Receptor Antagonist Start: 12-14-2024 End: 12-14-2024 inject 1 dose by subcutaneous injection once 10 mL, subcutaneous, Administer over 5 Minutes, Once, On Thu12/14/24 at 1045, For 1 dose, maintenance dose; observe for 15 min after injection Alternate L and R thigh at least 2.5cm from prior sites. Avoid red, bruised, tender, hard, scarred/moled skin. Observe 30 min after first and 15 min after subsequent doses Start: 11-16-2024 End: 11-16-2024 inject 1 dose by subcutaneous injection once 10 mL, subcutaneous, Administer over 5 Minutes, Once, On Thu11/16/24 at 1045, For 1 dose, maintenance dose; observe for 15 min after injection Alternate L and R thigh at least 2.5cm from prior sites. Avoid red, bruised, tender, hard, scarred/moled skin. Observe 30 min after first and 15 min after subsequent doses Start: 10-19-2024 End: 10-19-2024 inject 1 dose by subcutaneous injection once 10 mL, subcutaneous, Administer over 5 Minutes, Once, On Thu10/19/24 at 1045, For 1 dose, maintenance dose; observe for 15 min after injection Alternate L and R thigh at least 2.5cm from prior sites. Avoid red, bruised, tender, hard, scarred/moled skin. Observe 30 min after first and 15 min after subsequent doses Start: 09-21-2024 End: 09-21-2024 inject 1 dose by subcutaneous injection once 10 mL, subcutaneous, Administer over 5 Minutes, Once, On Thu09/21/24 at 1100, For 1 dose, maintenance dose; observe for 15 min after injection Alternate L and R thigh at least 2.5cm from prior sites. Avoid red, bruised, tender, hard, scarred/moled skin. Observe 30 min after first and 15 min after subsequent doses Start: 08-24-2024 End: 08-24-2024 inject 1 dose by subcutaneous injection once 10 mL, subcutaneous, Administer over 5 Minutes, Once, On Thu08/24/24 at 1100, For 1 dose, maintenance dose; observe for 15 min after injection Alternate L and R thigh at least 2.5cm from prior sites. Avoid red, bruised, tender, hard, scarred/moled skin. Observe 30 min after first and 15 min after subsequent doses Start: 07-27-2024 End: 07-27-2024 inject 1 dose by subcutaneous injection once 10 mL, subcutaneous, Administer over 5 Minutes, Once, On Thu07/27/24 at 1100, For 1 dose, maintenance dose; observe for 15 min after injection Alternate L and R thigh at least 2.5cm from prior sites. Avoid red, bruised, tender, hard, scarred/moled skin. Observe 30 min after first and 15 min after subsequent doses Start: 06-29-2024 End: 06-29-2024 inject 1 dose [...] subsequent doses, Indications: HER2-positive carcinoma of breast hydroCHLOROthiazide 50 mg oral tablet (5 sources) Thiazide Diuretic Start: 10-15-2017 End: 12-09-2024 take 1 tablet by mouth once daily Hydrochlorothiazide 50 mg Tablet Discontinued 1 TAB PO Daily October 15, 2017 12:00am December 09, 2024 12:11pm methotrexate 2.5 mg oral tablet (10 sources) Folate Analog Metabolic Inhibitor Start: 06-02-2019 End: 12-09-2024 Methotrexate Sodium 2.5 mg tablet Discontinued June 02, 2019 1:00am December 09, 2024 12:12pm Start: 10-15-2017 End: 06-02-2019 Methotrexate Sodium Active T ABLET June 02, 2019 1:00am mupirocin 0.02 mg/mg topical ointment (2 sources) RNA Synthetase Inhibitor Antibacterial Start: 09-20-2020 End: 04-10-2023 mupirocin (BACTROBAN) 2 % ointment Indications: Epistaxis Applied intranasally bilaterally 2 times daily 15 g 0 09/20/2020 04/10/2023 Discontinued (Therapy completed) microencapsulated potassium chloride 20 meq extended release oral tablet (5 sources) Start: 10-15-2017 End: 12-09-2024 take 1 tablet by mouth once daily Potassium Chloride (Klor-Con M20) 20 mEq Tablet,Er Particles/Crystal s Discontinued 1 TAB PO Daily October 15, 2017 12:00am December 09, 2024 12:12pm sod fnabr-zigtpp-cnrzpx bottle (NEILMED SINUS RINSE COMPLETE) packet with rinse device nasal solution (2 sources) Start: 08-22-2020 End: 04-10-2023 take 1 dose nasal route twice daily sod cdssq-blvgfk-sfuc ez bottle (NEILMED SINUS RINSE COMPLETE) packet with rinse device nasal solution Administer 1 packet into each nostril 2 (two) times a day. 60 packet 0 08/22/2020 04/10/2023 Discontinued (Therapy completed) Start: 08-22-2020 take 1 dose nasal ro [place] twice daily sod zmtcv-snqfmt-ishgnt bottle (NEILMED SINUS RINSE COMPLETE) packet with [...] 11-11-2023 11-11-2023 Chronic Congestive heart failure; nonhypertensive (20 sources) Chronic heart failure co-occurrent with normal ejection fraction; Translations: [Chronic diastolic (congestive) heart failure] Onset: 01-29-2024 01-29-2024 Chronic Coronary atherosclerosis and other heart disease (20 sources) Coronary arteriosclerosis; Translations: [Atherosclerotic heart disease of [place] coronary artery without angina pectoris] Onset: 10-29-2018 Resolved: 07-17-2020 12-18-2023 Chronic Deficiency and other anemia (19 sources) Iron deficiency anemia secondary to inadequate dietary iron intake; Translations: [Other iron deficiency anemias] Onset: 03-23-2023 03-23-2023 Episodic Diabetes mellitus without complication (19 sources) Prediabetes; Translations: [Prediabetes] Onset: 03-23-2023 09-22-2023 Episodic Disorders of lipid metabolism (20 sources) Dyslipidemia; Translations: [Hyperlipidemia, unspecified] Onset: 10-21-2019 03-23-2023 Chronic Essential hypertension (20 sources) Benign essential hypertension; Translations: [Essential (primary) hypertension] Onset: 03-23-2023 03-23-2023 Chronic Immunizations and screening for infectious disease (1 source) Raised antibody titer; Translations: [Raised antibody titer] Onset: 03-16-2024 Episodic Mood disorders (19 sources) Moderate recurrent major depression; Translations: [Major depressive disorder, recurrent, moderate] Onset: 05-09-2024 05-09-2024 Chronic Osteoporosis (20 sources) Senile osteoporosis; Translations: [Age-related osteoporosis without current pathological fracture] Onset: 03-23-2023 02-11-2024 Chronic Other aftercare (20 sources) Long-term current use of drug therapy; Translations: [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] Onset: 09-22-2023 09-22-2023 Episodic Other diseases of bladder and urethra (20 sources) Overactive bladder; Translations: [Overactive bladder] Onset: [...] region] Onset: 04-16-2017 03-23-2023 Chronic Thyroid disorders (20 sources) Hypothyroidism; Translations: [Hypothyroidism, unspecified] Onset: 03-23-2023 03-23-2023 Chronic Unclassified (4 sources) Long-term current use of drug therapy 01-20-2024 Unclassified (1 source) Injection Onset: 01-20-2024 Unclassified (1 source) 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; Translations: [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] Onset: 11-18-2023 Past or Other Problems Problem Classification Problem Date Documented Da te Episodic/Chronic Administrative/social admission (18 sources) Patient care statuses; Translations: [Encounter for nonprocreative genetic counseling] Onset: 4 11-18-2023 Episodic Deficiency and other anemia (20 sources) Iron deficiency anemia; Translations: [Iron deficiency anemia, unspecified] Onset: 9 11-26-2018 Episodic E Codes: Adverse effects of medical drugs (1 source) Adverse effect of antineoplastic and immunosuppressive drugs, initial encounter; Translations: [Adverse effect of antineoplastic and immunosuppressive drugs, initial encounter] Onset: 5 Episodic Genitourinary symptoms and ill-defined conditions (20 sources) Dysuria; Translations: [Urinary symptoms ] Onset: 2 Resolved: 5 Episodic Mood disorders (20 sources) Mood disorders Onset: 1 Resolved: 5 01-07-2021 Nonspecific chest pain (20 sources) Chest pain; Translations: [Other chest pain] Onset: 9 Resolved: 0 10-21-2019 Episodic Other aftercare (2 sources) Other [facility] (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; Translations: [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] Onset: 2 Episodic Other aftercare (1 source) Patient encounter status; Translations: [Other [facility] (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] Onset: 4 09-22-2023 Episodic Other aftercare (1 source) Drug therapy finding; Translations: [Encounter for therapeutic drug level monitoring] 11-19-2023 Episodic Other aftercare (1 source) Encounter for therapeutic drug level monitoring; Translations: [Encounter for therapeutic drug level monitoring] Onset: 4 Episodic Other gastrointestinal disorders (18 sources) Diarrhea due to drug; Translations: [Toxic gastroenteritis and colitis] Onset: 5 07-22-2024 Episodic Other gastrointestinal disorders (1 source) Toxic gastroenteritis and colitis; Translations: [Toxic gastroenteritis and colitis] Onset: 5 Episodic Other lower respiratory disease (20 sources) Dyspnea; Translations: [Shortness of breath] Onset: 9 Resolved: 0 10-21-2019 Episodic Other screening for suspected conditions (not mental disorders or infectious disease) (20 sources) Abnormal results of liver function studies; Translations: [Mammography abnormal] Onset: 9 Resolved: 0 10-12-2023 Episodic Other upper respiratory disease (20 sources) Bleeding from nose; Translations: [Epistaxis] Onset: 1 08-01-2020 Episodic Respiratory failure; insufficiency; arrest (adult) (20 sources) Dependence on respirator; Translations: [Dependence on respirator [ventilator] status] Onset: 0 Resolved: 0 10-21-2019 Chronic Urinary tract infections (19 sources) Acute cystitis; Translations: [Acute cystitis with hematuria] Onset: 4 Resolved: 4 09-22-2023 Episodic Results Test Name Value Interpretation Reference Range Facility CBC WITH AUTO DIFFERENTIALon 12-13-2024 BASOPHILS ABSOLUTE COUNT (10*3/UL) BY AUTOMATED COUNT 0.1 10*3/uL Normal 0.0-0.2 [facility] Comment on above: Order Comment: Abnor mal CBC with auto diff reflexes to a manual diff Performed By: #### C BCA, CMP, LIVR, 86075-7 #### [facility] ([id number]) [address], [address] [place] [address] BASOPHILS RELATIVE PERCENT BY AUTOMATED COUNT 2.1 % Normal [facility] Comment on above: Order Comment: Abnor mal CBC with auto diff reflexes to a manual diff Performed By: #### C BCA, CMP, LIVR, 99831-4 #### [facility] ([id number]) [address], [address] [place] [address] CELLAVISION DIFFERENTIAL TYPE AUTOMATED DIFFERENTIAL Normal [facility] Comment on above: Order Comment: Abnor mal CBC with auto diff reflexes to a manual diff Performed By: #### C BCA, CMP, LIVR, 86304-8 #### [facility] ([id number]) [address], [address] [place] [address] Eosinophils (Bld) [#/Vol] 0.3 10*3/uL Normal 0.0-0.4 [facility] Comment on above: Order Comment: Abnor mal CBC with auto diff reflexes to a manual diff Performed By: #### C BCA, CMP, LIVR, 92879-1 #### [facility] ([id number]) [address], [address] [place] [address] EOSINOPHILS RELATIVE PERCENT BY AUTOMATED COUNT 5.1 % Normal [facility] Comment on above: Order Comment: Abnor mal CBC with auto diff reflexes to a manual diff Performed By: #### C BCA, CMP, LIVR, 66304-7 #### [facility] ([id number]) [address] [address] [place] [address] Erythrocyte distribution width (RBC) [Ratio] 13.9 % Normal 11.5-15 [facility] Comment on above: Order Comment: Abnor mal CBC with auto diff reflexes to a manual diff Performed By: #### C BCA, CMP, LIVR, 90725-2 #### [facility] ([id number]) [address] [address] [place] [address] Hematocrit (Bld) [Volume fraction] 40.4 % Normal 35-47 [facility] Comment on above: Order Comment: Abnor mal CBC with auto diff reflexes to a manual diff Performed By: #### C BCA, CMP, LIVR, 74143-2 #### [facility] ([id number]) [address] [address] [place] [address] Hemoglobin (Bld) [Mass/Vol] 13.3 g/dL Normal 11.7-15.5 [facility] Comment on above: Order Comment: Abnor mal CBC with auto diff reflexes to a manual diff Performed By: #### C BCA, CMP, LIVR, 32422-1 #### [facility] ([id number]) [address] [place] [address] LYMPHOCYTES ABSOLUTE COUNT (10*3/UL) BY AUTOMATED COUNT 1.2 10*3/uL Normal 1.0-3.5 [facility] Comment on above: Order Comment: Abnor mal CBC with auto diff reflexes to a manual diff Performed By: #### C BCA, CMP, LIVR, 39031-8 #### [facility] ([id number]) [address], [address] [place] [address] LYMPHOCYTES RELATIVE PERCENT BY AUTOMATED COUNT 18.8 % Normal [facility] Comment on above: Order Comment: Abnor mal CBC with auto diff reflexes to a manual diff Performed By: #### C BCA, CMP, LIVR, 95059-7 #### [facility] ([id number]) [address] [place] [address] MCH (RBC) [Entitic mass] 31.2 pg Normal 27-34 [facility] Comment on above: Order Comment: Abnor mal CBC with auto diff reflexes to a manual diff Performed By: #### C BCA, CMP, LIVR, 61953-2 #### [facility] ([id number]) [address], [address] [place] [address] MCHC (RBC) [Mass/Vol] 33.0 g/dL Normal 32-36 [facility] Comment on above: Order Comment: Abnor mal CBC with auto diff reflexes to a manual diff Performed By: #### C BCA, CMP, LIVR, 93496-2 #### [facility] ([id number]) [address], [address] [place] [address] MCV (RBC) [Entitic vol] 95 fL Normal 80-100 [facility] Comment on above: Order Comment: Abnor mal CBC with auto diff reflexes to a manual diff Performed By: #### C BCA, CMP, LIVR, 67219-9 #### [facility] ([id number]) [address], [address] [place] [address] MONOCYTES ABSOLUTE COUNT (10*3/UL) BY AUTOMATED COUNT 0.6 10*3/uL Normal 0.0-0.9 [facility] Comment on above: Order Comment: Abnor mal CBC with auto diff reflexes to a manual diff Performed By: #### C BCA, CMP, LIVR, 58848-7 #### [facility] ([id number]) [address], [address] [place] [address] MONOCYTES RELATIVE PERCENT BY AUTOMATED COUNT 10.1 % Normal [facility] Comment on above: Order Comment: Abnor mal CBC with auto diff reflexes to a manual diff Performed By: #### C BCA, CMP, LIVR, 53104-1 #### [facility] ([id number]) [address] [place] [address] NEUTROPHILS ABSOLUTE COUNT BY AUTOMATED COUNT 4.0 10*3/uL Normal 1.5-6.6 [facility] Comment on above: Order Comment: Abnor mal CBC with auto diff reflexes to a manual diff Performed By: #### C BCA, CMP, LIVR, 54329-7 #### [facility] ([id number]) [address] [place] [address] NEUTROPHILS RELATIVE PERCENT BY AUTOMATED COUNT 63.9 % Normal [facility] Comment on above: Order Comment: Abnor mal CBC with auto diff reflexes to a manual diff Performed By: #### C BCA, CMP, LIVR, 85872-3 #### [facility] ([id number]) [address] [place] [address] Platelet mean volume (Bld) [Entitic vol] 9.3 fL Normal 7-12 [facility] Comment on above: Order Comment: Abnor mal CBC with auto diff reflexes to a manual diff Performed By: #### C BCA, CMP, LIVR, 15653-7 #### [facility] ([id number]) [address] [place] [address] Platelets (Bld) [#/Vol] 286 10*3/uL Normal 150-450 [facility] Comment on above: Order Comment: Abnor mal CBC with auto diff reflexes to a manual diff Performed By: #### C BCA, CMP, LIVR, 61793-7 #### [facility] ([id number]) [address] [place] [address] RBC COUNT 4.26 X10E12/L Normal 3.8-5.2 [facility] Comment on above: Order Comment: Abnor mal CBC with auto diff reflexes to a manual diff Performed By: #### C BCA, CMP, LIVR, 47877-3 #### [facility] ([id number]) [address] [place] [address] WBC (Bld) [#/Vol] 6.3 10*3/uL Normal 4-11 [facility] Comment on above: Order Comment: Abnor mal CBC with auto diff reflexes to a manual diff Performed By: #### C BCA, CMP, LIVR, 59254-4 #### [facility] ([id number]) [address] [place] [address] COMPREHENSIVE METABOLIC PANE Henry 12-13-2024 Albumin [Mass/Vol] 3.7 g/dL Normal 3.2-5.3 [facility] Comment on above: Performed By: #### C BCA, CMP, LIVR, 06223-3 #### [facility] ([id number]) [address], [address] [place] [address] ALP [Catalytic activity/Vol] 80 U/L Normal 39-130 [facility] Comment on above: Performed By: #### C BCA, CMP, LIVR, 03664-5 #### [facility] ([id number]) [address] [place] [address] ALT [Catalytic activity/Vol] 13 U/L Normal <=31 [facility] Comment on above: Performed By: #### C BCA, CMP, LIVR, 03092-6 #### [facility] ([id number]) [address] [place] [address] Anion gap [Moles/Vol] 9 mmol/L Normal 5-15 [facility] Comment on above: Performed By: #### C BCA, CMP, LIVR, 96430-6 #### [facility] ([id number]) [address] [place] [address] AST [Catalytic activity/Vol] 26 U/L Normal <=41 [facility] Comment on above: Performed By: #### C BCA, CMP, LIVR, 79950-4 #### [facility] ([id number]) [address] [place] [address] Bilirubin [Mass/Vol] 0.5 mg/dL Normal 0.3-1.2 [facility] Comment on above: Performed By: #### C BCA, CMP, LIVR, 48257-5 #### [facility] ([id number]) [address] [place] [address] Calcium [Mass/Vol] 9.5 mg/dL Normal 8.5-10.5 [facility] Comment on above: Performed By: #### C BCA, CMP, LIVR, 17342-4 #### [facility] ([id number]) [address] [place] [address] Chloride [Moles/Vol] 106 mmol/L Normal 98-109 [facility] Comment on above: Performed By: #### C BCA, CMP, LIVR, 50097-4 #### [facility] ([id number]) [address] [place] [address] CO2 [Moles/Vol] 25 mmol/L Normal 22-32 [facility] Comment on above: Performed By: #### C BCA, CMP, LIVR, 91059-5 #### [facility] ([id number]) [address] [place] [address] Creatinine [Mass/Vol] 0.68 mg/dL Normal 0.40-1.00 [facility] Comment on above: Result Comment: METH OD TRACEABLE TO IDMS STANDARD Performed By: #### C BCA, CMP, LIVR, 67109-9 #### [facility] ([id number]) [address] [facility] [address] [place] [address] GFR/1.73 sq M.predicted among non-blacks MDRD (S/P/Bld) [Vol rate/Area] 86 mL/min/{1.73_m2} Normal >=60 [facility] Comment on above: Result Comment: Repo rted eGFR is based on the CKD-EPI 2020 equation that does not use a race coefficient. Performed By: #### C BCA, CMP, LIVR, 51372-8 #### [facility] ([id number]) [address] [place] [address] Glucose [Mass/Vol] 103 mg/dL High 65-99 [facility] Comment on above: Performed By: #### C BCA, CMP, LIVR, 22214-0 #### [facility] ([id number]) [address] [address] [place] [address] Potassium [Moles/Vol] 3.9 mmol/L Normal 3.5-5.0 [facility] Comment on above: Performed By: #### C BCA, CMP, LIVR, 77006-9 #### [facility] ([id number]) [address] [place] [address] Protein [Mass/Vol] 6.3 g/dL Normal 6.0-8.0 [facility] Comment on above: Performed By: #### C BCA, CMP, LIVR, 06935-6 #### [facility] ([id number]) [address] [place] [address] Sodium [Moles/Vol] 140 mmol/L Normal 134-146 [facility] Comment on above: Performed By: #### C BCA, CMP, LIVR, 32964-7 #### [facility] ([id number]) [address] [place] [address] Urea nitrogen [Mass/Vol] 16 mg/dL Normal 5-27 [facility] Comment on above: Performed By: #### C BCA, CMP, LIVR, 55048-6 #### [facility] ([id number]) [address] [place] [address] CBC WITH AUTO DIFFERENTIALon 11-15-2024 BASOPHILS ABSOLUTE COUNT (10*3/UL) BY AUTOMATED COUNT 0.1 10*3/uL Normal 0.0-0.2 [facility] Comment on above: Order Comment: Abnor mal CBC with auto diff reflexes to a manual diff Performed By: #### C BCA, CMP, LIVR, 99872-7 #### [facility] ([id number]) [address] [place] [address] BASOPHILS RELATIVE PERCENT BY AUTOMATED COUNT 1.3 % Normal [facility] Comment on above: Order Comment: Abnor mal CBC with auto diff reflexes to a manual diff Performed By: #### C BCA, CMP, LIVR, 35224-5 #### [facility] ([id number]) [address] [place] [address] CELLAVISION DIFFERENTIAL TYPE AUTOMATED DIFFERENTIAL Normal [facility] Comment on above: Order Comment: Abnor mal CBC with auto diff reflexes to a manual diff Performed By: #### C BCA, CMP, LIVR, 49557-3 #### [facility] ([id number]) [address] [place] [address] Eosinophils (Bld) [#/Vol] 0.5 10*3/uL High 0.0-0.4 [facility] Comment on above: Order Comment: Abnor mal CBC with auto diff reflexes to a manual diff Performed By: #### C BCA, CMP, LIVR, 21362-0 #### [facility] ([id number]) [address] [place] [address] EOSINOPHILS RELATIVE PERCENT BY AUTOMATED COUNT 5.4 % Normal [facility] Comment on above: Order Comment: Abnor mal CBC with auto diff reflexes to a manual diff Performed By: #### C BCA, CMP, LIVR, 50349-3 #### [facility] ([id number]) [address] [address] [place] [address] Erythrocyte distribution width (RBC) [Ratio] 14.1 % Normal 11.5-15 [facility] Comment on above: Order Comment: Abnor mal CBC with auto diff reflexes to a manual diff Performed By: #### C BCA, CMP, LIVR, 71444-9 #### [facility] ([id number]) [address] [address] [place] [address] Hematocrit (Bld) [Volume fraction] 39.8 % Normal 35-47 [facility] Comment on above: Order Comment: Abnor mal CBC with auto diff reflexes to a manual diff Performed By: #### C BCA, CMP, LIVR, 40543-0 #### [facility] ([id number]) [address] [address] [address] [place] [address] Hemoglobin (Bld) [Mass/Vol] 13.4 g/dL Normal 11.7-15.5 [facility] Comment on above: Order Comment: Abnor mal CBC with auto diff reflexes to a manual diff Performed By: #### C BCA, CMP, LIVR, 56723-8 #### [facility] ([id number]) [address] [place] [address] LYMPHOCYTES ABSOLUTE COUNT (10*3/UL) BY AUTOMATED COUNT 0.9 10*3/uL Low 1.0-3.5 [facility] Comment on above: Order Comment: Abnor mal CBC with auto diff reflexes to a manual diff Performed By: #### C BCA, CMP, LIVR, 16068-5 #### [facility] ([id number]) [address] [place] [address] LYMPHOCYTES RELATIVE PERCENT BY AUTOMATED COUNT 10.2 % Normal [facility] Comment on above: Order Comment: Abnor mal CBC with auto diff reflexes to a manual diff Performed By: #### C BCA, CMP, LIVR, 45039-0 #### [facility] ([id number]) [address] [address] [place] [address] MCH (RBC) [Entitic mass] 31.4 pg Normal 27-34 [facility] Comment on above: Order Comment: Abnor mal CBC with auto diff reflexes to a manual diff Performed By: #### C BCA, CMP, LIVR, 52156-0 #### [facility] ([id number]) [address] [address] [place] [address] MCHC (RBC) [Mass/Vol] 33.6 g/dL Normal 32-36 [facility] Comment on above: Order Comment: Abnor mal CBC with auto diff reflexes to a manual diff Performed By: #### C BCA, CMP, LIVR, 03752-9 #### [facility] ([id number]) [address] [address] [place] [address] MCV (RBC) [Entitic vol] 93 fL Normal 80-100 [facility] Comment on above: Order Comment: Abnor mal CBC with auto diff reflexes to a manual diff Performed By: #### C BCA, CMP, LIVR, 47492-3 #### [facility] ([id number]) [address] [place] [address] MONOCYTES ABSOLUTE COUNT (10*3/UL) BY AUTOMATED COUNT 0.8 10*3/uL Normal 0.0-0.9 [facility] Comment on above: Order Comment: Abnor mal CBC with auto diff reflexes to a manual diff Performed By: #### C BCA, CMP, LIVR, 59448-3 #### [facility] ([id number]) [address] [place] [address] MONOCYTES RELATIVE PERCENT BY AUTOMATED COUNT 9.1 % Normal [facility] Comment on above: Order Comment: Abnor mal CBC with auto diff reflexes to a manual diff Performed By: #### C BCA, CMP, LIVR, 74356-4 #### [facility] ([id number]) [address] [place] [address] NEUTROPHILS ABSOLUTE COUNT BY AUTOMATED COUNT 6.7 10*3/uL High 1.5-6.6 [facility] Comment on above: Order Comment: Abnor mal CBC with auto diff reflexes to a manual diff Performed By: #### C BCA, CMP, LIVR, 51173-7 #### [facility] ([id number]) [address] [place] [address] NEUTROPHILS RELATIVE PERCENT BY AUTOMATED COUNT 74.0 % Normal [facility] Comment on above: Order Comment: Abnor mal CBC with auto diff reflexes to a manual diff Performed By: #### C BCA, CMP, LIVR, 11716-7 #### [facility] ([id number]) [address] [place] [address] Platelet mean volume (Bld) [Entitic vol] 9.2 fL Normal 7-12 [facility] Comment on above: Order Comment: Abnor mal CBC with auto diff reflexes to a manual diff Performed By: #### C BCA, CMP, LIVR, 63724-9 #### [facility] ([id number]) [address] [place] [address] Platelets (Bld) [#/Vol] 282 10*3/uL Normal 150-450 [facility] Comment on above: Order Comment: Abnor mal CBC with auto diff reflexes to a manual diff Performed By: #### C BCA, CMP, LIVR, 66833-5 #### [facility] ([id number]) [address] [place] [address] RBC COUNT 4.27 X10E12/L Normal 3.8-5.2 [facility] Comment on above: Order Comment: Abnor mal CBC with auto diff reflexes to a manual diff Performed By: #### C BCA, CMP, LIVR, 56691-5 #### [facility] ([id number]) [address] [place] [address] WBC (Bld) [#/Vol] 9.1 10*3/uL Normal 4-11 [facility] Comment on above: Order Comment: Abnor mal CBC with auto diff reflexes to a manual diff Performed By: #### C BCA, CMP, LIVR, 35247-4 #### [facility] ([id number]) [address] [place] [address] COMPREHENSIVE METABOLIC PANE Henry 11-15-2024 Albumin [Mass/Vol] 3.7 g/dL Normal 3.2-5.3 [facility] Comment on above: Performed By: #### C BCA, CMP, LIVR, 23247-1 #### [facility] ([id number]) [address] [place] [address] ALP [Catalytic activity/Vol] 86 U/L Normal 39-130 [facility] Comment on above: Performed By: #### C BCA, CMP, LIVR, 74483-8 #### [facility] ([id number]) [address] [place] [address] ALT [Catalytic activity/Vol] 14 U/L Normal <=31 [facility] Comment on above: Performed By: #### C BCA, CMP, LIVR, 89091-4 #### [facility] ([id number]) [address] [place] [address] Anion gap [Moles/Vol] 7 mmol/L Normal 5-15 [facility] Comment on above: Performed By: #### C BCA, CMP, LIVR, 97501-4 #### [facility] ([id number]) [address] [place] [address] AST [Catalytic activity/Vol] 28 U/L Normal <=41 [facility] Comment on above: Performed By: #### C BCA, CMP, LIVR, 13368-4 #### [facility] ([id number]) [address] [place] [address] Bilirubin [Mass/Vol] 0.5 mg/dL Normal 0.3-1.2 [facility] Comment on above: Performed By: #### C BCA, CMP, LIVR, 55055-8 #### [facility] ([id number]) [address] [place] [address] Calcium [Mass/Vol] 9.4 mg/dL Normal 8.5-10.5 [facility] Comment on above: Performed By: #### C BCA, CMP, LIVR, 80219-9 #### [facility] ([id number]) [address] [place] [address] Chloride [Moles/Vol] 105 mmol/L Normal 98-109 [facility] Comment on above: Performed By: #### C BCA, CMP, LIVR, 64127-4 #### [facility] ([id number]) [address] [place] [address] CO2 [Moles/Vol] 29 mmol/L Normal 22-32 [facility] Comment on above: Performed By: #### C BCA, CMP, LIVR, 18278-8 #### [facility] ([id number]) [address] [address] [place] [address] Creatinine [Mass/Vol] 0.76 mg/dL Normal 0.40-1.00 [facility] Comment on above: Result Comment: METH OD TRACEABLE TO IDMS STANDARD Performed By: #### C BCA, CMP, LIVR, 95549-5 #### [facility] ([id number]) [address] [address] [place] [address] GFR/1.73 sq M.predicted among non-blacks MDRD (S/P/Bld) [Vol rate/Area] 77 mL/min/{1.73_m2} Normal >=60 [facility] Comment on above: Result Comment: Repo rted eGFR is based on the CKD-EPI 2020 equation that does not use a race coefficient. Performed By: #### C BCA, CMP, LIVR, 68312-2 #### [facility] ([id number]) [address] [address] [place] [address] Glucose [Mass/Vol] 111 mg/dL High 65-99 [facility] Comment on above: Performed By: #### C BCA, CMP, LIVR, 14510-9 #### [facility] ([id number]) [address] [address] [place] [address] Potassium [Moles/Vol] 3.7 mmol/L Normal 3.5-5.0 [facility] Comment on above: Performed By: #### C BCA, CMP, LIVR, 10039-1 #### [facility] ([id number]) [address] [address] [place] [address] Protein [Mass/Vol] 6.3 g/dL Normal 6.0-8.0 [facility] Comment on above: Performed By: #### C BCA, CMP, LIVR, 70414-8 #### [facility] ([id number]) [address] [place] [address] Sodium [Moles/Vol] 141 mmol/L Normal 134-146 [facility] Comment on above: Performed By: #### C BCA, CMP, LIVR, 40325-6 #### [facility] ([id number]) [address] [place] [address] Urea nitrogen [Mass/Vol] 15 mg/dL Normal 5-27 [facility] Comment on above: Performed By: #### C BCA, CMP, LIVR, 20595-4 #### [facility] ([id number]) [address] [place] [address] CA ECHO DOPPLER COMPLETEon 0 10-19-[address] [address] Cardiology Report Signed Patient: ANGELIKA MARTINS MR#: [id number] : 1940 Acct:[id number] Age/Sex: 84 / F ADM Date: 10/18/24 Loc: CARD Attending Dr: WILL CUADRA Ordering Physician: WILL CUADRA Date of Service: 10/18/24 Procedure(s): CA echo doppler complete Accession Number(s): [id number] cc: Boone Ewing M.D.; WILL CUADRA Patient Name: ANGELIKA MARTINS MR#: [id number] : 1940 Exam Date: 10/18/2024 Ordering Doctor: [...] 3.06 cm Aortic Valve AoV Area (Peak Uriel): 2.20 cm2, 2.20 cm2 AoV Area (VTI): 2.54 cm2, 2.54 cm2 Peak Velocity(Antegrade Flow): 1.01 m/s Peak Gradient(Antegrade Flow): 4.06 mm[Hg] Mean Velocity(Antegrade Flow): 0.68 m/s Mean Gradient(Antegrade Flow): 2.13 mm[Hg] Velocity Time Integral: 22.11 cm Tricuspid Valve Peak Velocity (Regurgitant Flow): 3.23 m/s, 3.52 m/s, 2.79 m/s (more content not included)... [facility] Radiology, Radiologist, MD - 10/19/2024 [place] [address] Cardiology Report Signed Patient: ANGELIKA MARTINS MR#: [id number] : 1940 Acct:[id number] Age/Sex: 84 / F ADM Date: 10/18/24 Loc: CARD Attending Dr: WILL CUADRA Ordering Physician: WILL CUADRA Date of Service: 10/18/24 Procedure(s): CA echo doppler complete Accession Number(s): [id number] cc: Boone Ewing M.D.; WILL CUADRA Patient Name: ANGELIKA MARTINS MR#: [id number] : 1940 Exam Date: 10/18/2024 Ordering Doctor: [...] 3.06 cm Aortic Valve AoV Area (Peak Uriel): 2.20 cm2, 2.20 cm2 AoV Area (VTI): [...] Dictated By: Jimmy Cristobal M.D. Signed By: 10/19/241744 DD/ 43 TD/TT: Playground Director: [facility] Radiology Study observation (narrative) [facility] CA ECHO DOPPLER COMPLETEOrde red By: Radiologist Radiology on 10-19-2024 [facility] Work Phone: CBC WITH AUTO DIFFERENTIALon 10-18-2024 BASOPHILS ABSOLUTE COUNT (10*3/UL) BY AUTOMATED COUNT 0.1 10*3/uL Normal 0.0-0.2 [facility] Comment on above: Performed By: #### C BCA, CMP #### [facility] ([id number]) [address] [place] [address] [address] [place] [address] BASOPHILS RELATIVE PERCENT BY AUTOMATED COUNT 1.1 % Normal [facility] Comment on above: Performed By: #### C BCA, CMP #### [facility] ([id number]) [address] [place] [address], [facility] [place] [address] [place] [address] CELLAVISION DIFFERENTIAL TYPE AUTOMATED DIFFERENTIAL Normal [facility] Comment on above: Performed By: #### C BCA, CMP #### [facility] ([id number]) [address] [address] [place] [address] Eosinophils (Bld) [#/Vol] 0.3 10*3/uL Normal 0.0-0.4 [facility] Comment on above: Performed By: #### C BCA, CMP #### [facility] ([id number]) [address] [address] [place] [address] EOSINOPHILS RELATIVE PERCENT BY AUTOMATED COUNT 3.5 % Normal [facility] Comment on above: Performed By: #### C MALI, CMP #### [facility] ([id number]) [address] [address] [place] [address] Erythrocyte distribution width (RBC) [Ratio] 14.5 % Normal 11.5-15 [facility] Comment on above: Performed By: #### C MALI, CMP #### [facility] ([id number]) [address] [address] [place] [address] Hematocrit (Bld) [Volume fraction] 41.8 % Normal 35-47 [facility] Comment on above: Performed By: #### C BCA, CMP #### [facility] ([id number]) [address] [address] [place] [address] Hemoglobin (Bld) [Mass/Vol] 13.9 g/dL Normal 11.7-15.5 [facility] Comment on above: Performed By: #### C BCA, CMP #### [facility] ([id number]) [address] [address] LYMPHOCYTES ABSOLUTE COUNT (10*3/UL) BY AUTOMATED COUNT 1.2 10*3/uL Normal 1.0-3.5 [facility] Comment on above: Performed By: #### C BCA, CMP #### [facility] ([id number]) [address] [place] [address] LYMPHOCYTES RELATIVE PERCENT BY AUTOMATED COUNT 14.6 % Normal [facility] Comment on above: Performed By: #### C BCA, CMP #### [facility] ([id number]) [address] [place] [address] MCH (RBC) [Entitic mass] 31.3 pg Normal 27-34 [facility] Comment on above: Performed By: #### C BCA, CMP #### [facility] ([id number]) [address] [place] [address] MCHC (RBC) [Mass/Vol] 33.2 g/dL Normal 32-36 [facility] Comment on above: Performed By: #### C BCA, CMP #### [facility] ([id number]) [address] [place] [address] MCV (RBC) [Entitic vol] 94 fL Normal 80-100 [facility] Comment on above: Performed By: #### C BCA, CMP #### [facility] ([id number]) [address] [place] [address] MONOCYTES ABSOLUTE COUNT (10*3/UL) BY AUTOMATED COUNT 1.1 10*3/uL High 0.0-0.9 [facility] Comment on above: Performed By: #### C BCA, CMP #### [facility] ([id number]) [address] [place] [address] MONOCYTES RELATIVE PERCENT BY AUTOMATED COUNT 13.2 % Normal [facility] Comment on above: Performed By: #### C BCA, CMP #### [facility] ([id number]) [address] [place] [address] NEUTROPHILS ABSOLUTE COUNT BY AUTOMATED COUNT 5.5 10*3/uL Normal 1.5-6.6 [facility] Comment on above: Performed By: #### C BCA, CMP #### [facility] ([id number]) [address] [place] [address] NEUTROPHILS RELATIVE PERCENT BY AUTOMATED COUNT 67.6 % Normal [facility] Comment on above: Performed By: #### C BCA, CMP #### [facility] ([id number]) [address] [place] [address] Platelet mean volume (Bld) [Entitic vol] 9.5 fL Normal 7-12 [facility] Comment on above: Performed By: #### C MALI, CMP #### [facility] ([id number]) [address] [place] [address] Platelets (Bld) [#/Vol] 319 10*3/uL Normal 150-450 [facility] Comment on above: Performed By: #### C MALI, CMP #### [facility] ([id number]) [address] [place] [address] RBC COUNT 4.43 X10E12/L Normal 3.8-5.2 [facility] Comment on above: Performed By: #### C BCA, CMP #### [facility] ([id number]) [address] [place] [address] WBC (Bld) [#/Vol] 8.1 10*3/uL Normal 4-11 [facility] Comment on above: Performed By: #### C BCA, CMP #### [facility] ([id number]) [address] [place] [address] COMPREHENSIVE METABOLIC PANE Henry 10-18-2024 Albumin [Mass/Vol] 4.1 g/dL Normal 3.2-5.3 [facility] Comment on above: Performed By: #### C BCA, CMP #### [facility] ([id number]) [address] [place] [address] ALP [Catalytic activity/Vol] 87 U/L Normal 39-130 [facility] Comment on above: Performed By: #### C BCA, CMP #### [facility] ([id number]) [address] [place] [address] ALT [Catalytic activity/Vol] 13 U/L Normal <=31 [facility] Comment on above: Performed By: #### C BCA, CMP #### [facility] ([id number]) [address] [place] [address] Anion gap [Moles/Vol] 11 mmol/L Normal 5-15 [facility] Comment on above: Performed By: #### C BCA, CMP #### [facility] ([id number]) [address] [place] [address] AST [Catalytic activity/Vol] 29 U/L Normal <=41 [facility] Comment on above: Performed By: #### C BCA, CMP #### [facility] ([id number]) [address] [place] [address] Bilirubin [Mass/Vol] 0.6 mg/dL Normal 0.3-1.2 [facility] Comment on above: Performed By: #### C BCA, CMP #### [facility] ([id number]) [address] [place] [address] Calcium [Mass/Vol] 9.4 mg/dL Normal 8.5-10.5 [facility] Comment on above: Performed By: #### C BCA, CMP #### [facility] ([id number]) [address] [place] [address] Chloride [Moles/Vol] 105 mmol/L Normal 98-109 [facility] Comment on above: Performed By: #### C BCA, CMP #### [facility] ([id number]) [address] [place] [address] CO2 [Moles/Vol] 27 mmol/L Normal 22-32 [facility] Comment on above: Performed By: #### C BCA, CMP #### [facility] ([id number]) [address] [place] [address] Creatinine [Mass/Vol] 0.70 mg/dL Normal 0.40-1.00 [facility] Comment on above: Result Comment: METH OD TRACEABLE TO IDMS STANDARD Performed By: #### C BCA, CMP #### [facility] ([id number]) [address], [facility] [address] [place] [address] GFR/1.73 sq M.predicted among non-blacks MDRD (S/P/Bld) [Vol rate/Area] 85 mL/min/{1.73_m2} Normal >=60 [facility] Comment on above: Result Comment: Repo rted eGFR is based on the CKD-EPI 2020 equation that does not use a race coefficient. Performed By: #### C BCA, CMP #### [facility] ([id number]) [address] [place] [address] Glucose [Mass/Vol] 80 mg/dL Normal 65-99 [facility] Comment on above: Performed By: #### C BCA, CMP #### [facility] ([id number]) [address] [address] [place] [address] Potassium [Moles/Vol] 4.0 mmol/L Normal 3.5-5.0 [facility] Comment on above: Performed By: #### C BCA, CMP #### [facility] ([id number]) [address] [place] [address] Protein [Mass/Vol] 6.4 g/dL Normal 6.0-8.0 [facility] Comment on above: Performed By: #### C BCA, CMP #### [facility] ([id number]) [address] [place] [address] Sodium [Moles/Vol] 143 mmol/L Normal 134-146 [facility] Comment on above: Performed By: #### C MALI, CMP #### [facility] ([id number]) [address] [place] [address] Urea nitrogen [Mass/Vol] 15 mg/dL Normal 5-27 [facility] Comment on above: Performed By: #### C MALI, CMP #### [facility] ([id number]) [address] [place] [address] CBC WITH AUTO DIFFERENTIALon 09-20-2024 BASOPHILS ABSOLUTE COUNT (10*3/UL) BY AUTOMATED COUNT 0.1 10*3/uL Normal 0.0-0.2 [facility] Comment on above: Performed By: #### Ha SAMSON, CMP #### [facility] ([id number]) [address] [place] [address] BASOPHILS RELATIVE PERCENT BY AUTOMATED COUNT 1.9 % Normal [facility] Comment on above: Performed By: #### Ha SAMSON, CMP #### [facility] ([id number]) [address] [place] [address] CELLAVISION DIFFERENTIAL TYPE AUTOMATED DIFFERENTIAL Normal [facility] Comment on above: Performed By: #### Ha SAMSON, CMP #### [facility] ([id number]) [address] [address] [place] [address] Eosinophils (Bld) [#/Vol] 0.3 10*3/uL Normal 0.0-0.4 [facility] Comment on above: Performed By: #### C MALI, CMP #### [facility] ([id number]) [address] [place] [address] EOSINOPHILS RELATIVE PERCENT BY AUTOMATED COUNT 4.8 % Normal [facility] Comment on above: Performed By: #### Ha SAMSON, CMP #### [facility] ([id number]) [address] [place] [address] Erythrocyte distribution width (RBC) [Ratio] 14.6 % Normal 11.5-15 [facility] Comment on above: Performed By: #### C BCA, CMP #### [facility] ([id number]) [address] [place] [address] Hematocrit (Bld) [Volume fraction] 38.5 % Normal 35-47 [facility] Comment on above: Performed By: #### C BCA, CMP #### [facility] ([id number]) [address] [place] [address] Hemoglobin (Bld) [Mass/Vol] 13.0 g/dL Normal 11.7-15.5 [facility] Comment on above: Performed By: #### C BCA, CMP #### [facility] ([id number]) [address] [place] [address] LYMPHOCYTES ABSOLUTE COUNT (10*3/UL) BY AUTOMATED COUNT 1.4 10*3/uL Normal 1.0-3.5 [facility] Comment on above: Performed By: #### C BCA, CMP #### [facility] ([id number]) [address] [place] [address] LYMPHOCYTES RELATIVE PERCENT BY AUTOMATED COUNT 20.6 % Normal [facility] Comment on above: Performed By: #### C BCA, CMP #### [facility] ([id number]) [address] [place] [address] MCH (RBC) [Entitic mass] 31.0 pg Normal 27-34 [facility] Comment on above: Performed By: #### C BCA, CMP #### [facility] ([id number]) [address] [place] [address] MCHC (RBC) [Mass/Vol] 33.7 g/dL Normal 32-36 [facility] Comment on above: Performed By: #### C BCA, CMP #### [facility] ([id number]) [address] [place] [address] MCV (RBC) [Entitic vol] 92 fL Normal 80-100 [facility] Comment on above: Performed By: #### C BCA, CMP #### [facility] ([id number]) [address] [place] [address] MONOCYTES ABSOLUTE COUNT (10*3/UL) BY AUTOMATED COUNT 0.7 10*3/uL Normal 0.0-0.9 [facility] Comment on above: Performed By: #### C BCA, CMP #### [facility] ([id number]) [address] [place] [address] MONOCYTES RELATIVE PERCENT BY AUTOMATED COUNT 9.9 % Normal [facility] Comment on above: Performed By: #### C BCA, CMP #### [facility] ([id number]) [address] [place] [address] NEUTROPHILS ABSOLUTE COUNT BY AUTOMATED COUNT 4.1 10*3/uL Normal 1.5-6.6 [facility] Comment on above: Performed By: #### C BCA, CMP #### [facility] ([id number]) [address] [place] [address] NEUTROPHILS RELATIVE PERCENT BY AUTOMATED COUNT 62.8 % Normal [facility] Comment on above: Performed By: #### C BCA, CMP #### [facility] ([id number]) [address] [place] [address] Platelet mean volume (Bld) [Entitic vol] 9.2 fL Normal 7-12 [facility] Comment on above: Performed By: #### C BCA, CMP #### [facility] ([id number]) [address] [place] [address] Platelets (Bld) [#/Vol] 314 10*3/uL Normal 150-450 [facility] Comment on above: Performed By: #### C BCA, CMP #### [facility] ([id number]) [address] [place] [address] RBC COUNT 4.18 X10E12/L Normal 3.8-5.2 [facility] Comment on above: Performed By: #### C BCA, CMP #### [facility] ([id number]) [address] [place] [address] WBC (Bld) [#/Vol] 6.6 10*3/uL Normal 4-11 [facility] Comment on above: Performed By: #### C BCA, CMP #### [facility] ([id number]) [address] [place] [address] COMPREHENSIVE METABOLIC PANE Henry 09-20-2024 Albumin [Mass/Vol] 3.7 g/dL Normal 3.2-5.3 [facility] Comment on above: Performed By: #### C BCA, CMP #### [facility] ([id number]) [address] [place] [address] ALP [Catalytic activity/Vol] 95 U/L Normal 39-130 [facility] Comment on above: Performed By: #### C BCA, CMP #### [facility] ([id number]) [address] [place] [address] ALT [Catalytic activity/Vol] 11 U/L Normal <=31 [facility] Comment on above: Performed By: #### C BCA, CMP #### [facility] ([id number]) [address] [place] [address] Anion gap [Moles/Vol] 10 mmol/L Normal 5-15 [facility] Comment on above: Performed By: #### C BCA, CMP #### [facility] ([id number]) [address] [place] [address] AST [Catalytic activity/Vol] 28 U/L Normal <=41 [facility] Comment on above: Performed By: #### C BCA, CMP #### [facility] ([id number]) [address] [place] [address] Bilirubin [Mass/Vol] 0.4 mg/dL Normal 0.3-1.2 [facility] Comment on above: Performed By: #### C BCA, CMP #### [facility] ([id number]) [address] [place] [address] Calcium [Mass/Vol] 9.6 mg/dL Normal 8.5-10.5 [facility] Comment on above: Performed By: #### C BCA, CMP #### [facility] ([id number]) [address] [place] [address] Chloride [Moles/Vol] 106 mmol/L Normal 98-109 [facility] Comment on above: Performed By: #### C BCA, CMP #### [facility] ([id number]) [address] [place] [address] CO2 [Moles/Vol] 25 mmol/L Normal 22-32 [facility] Comment on above: Performed By: #### C BCA, CMP #### [facility] ([id number]) [address] [place] [address] Creatinine [Mass/Vol] 0.75 mg/dL Normal 0.40-1.00 [facility] Comment on above: Result Comment: METH OD TRACEABLE TO IDMS STANDARD Performed By: #### C BCA, CMP #### [facility] ([id number]) [address] [place] [address] GFR/1.73 sq M.predicted among non-blacks MDRD (S/P/Bld) [Vol rate/Area] 78 mL/min/{1.73_m2} Normal >=60 [facility] Comment on above: Result Comment: Repfrank rted eGFR is based on the CKD-EPI 2020 equation that does not use a race coefficient. Performed By: #### C BCA, CMP #### [facility] ([id number]) [address] [place] [address] Glucose [Mass/Vol] 94 mg/dL Normal 65-99 [facility] Comment on above: Performed By: #### C BCA, CMP #### [facility] ([id number]) [address] [place] [address] Potassium [Moles/Vol] 3.7 mmol/L Normal 3.5-5.0 [facility] Comment on above: Performed By: #### C BCA, CMP #### [facility] ([id number]) [address] [place] [address] Protein [Mass/Vol] 6.2 g/dL Normal 6.0-8.0 [facility] Comment on above: Performed By: #### C BCA, CMP #### [facility] ([id number]) [address] [place] [address] Sodium [Moles/Vol] 141 mmol/L Normal 134-146 [facility] Comment on above: Performed By: #### C BCA, CMP #### [facility] ([id number]) [address] [place] [address] Urea nitrogen [Mass/Vol] 16 mg/dL Normal 5-27 [facility] Comment on above: Performed By: #### C BCA, CMP #### [facility] ([id number]) [address] [place] [address] ERYTHROCYTE SEDIMENTATION RA TE (ESR)on 09-20-2024 ESR, ERYTHROCYTE SEDIMENTATION RATE 4 mm/h Normal 0-30 [facility] Comment on above: Performed By: #### C BCA, CMP #### [facility] ([id number]) [address] [place] [address] LIPID PROFILEon 09-20-2024 Cholesterol [Mass/Vol] 106 mg/dL Low 150-200 [facility] Comment on above: Performed By: #### C BCA, CMP #### [facility] ([id number]) [address] [place] [address] Cholesterol in HDL [Mass/Vol] 45 mg/dL Normal >39 [facility] Comment on above: Result Comment: HDL <40 mg/dL - High Risk HDL > or = 40mg/dL- Desirable HDL >60 mg/dL - Negative Risk Performed By: #### C BCA, CMP #### [facility] ([id number]) [address] [place] [address] Cholesterol in LDL [Mass/Vol] 39 mg/dL Normal <130 [facility] Comment on above: Result Comment: LDL <100 mg/dL - Desirable LDL >160 mg/dL - High Risk Performed By: #### C BCA, CMP #### [facility] ([id number]) [address] [place] [address] CHOLESTEROL:HDL 2.4 Normal 1.0-5.0 [facility] Comment on above: Performed By: #### C BCA, CMP #### [facility] ([id number]) [address] [place] [address] Triglyceride [Mass/Vol] 109 mg/dL Normal 27-150 [facility] Comment on above: Performed By: #### C BCA, CMP #### [facility] ([id number]) [address] [place] [address] VERY LOW LIPOPROTEIN 22 mg/dL Normal 0-30 [facility] Comment on above: Performed By: #### C MALI, CMP #### [facility] ([id number]) [address] [address] [place] [address] THYROID PROFILE INCLUDES TSH FT4on 09-20-2024 Free T4 [Mass/Vol] 0.85 ng/dL Normal 0.61-1.60 [facility] Comment on above: Performed By: #### C MALI, CMP #### [facility] ([id number]) [address] [facility] [address] [place] [address] TSH 6.13 uIU/mL High 0.49-4.67 [facility] Comment on above: Performed By: #### C MALI, CMP #### [facility] ([id number]) [address] [address] [place] [address] CBC WITH AUTO DIFFERENTIALon 08-23-2024 BASOPHILS ABSOLUTE COUNT (10*3/UL) BY AUTOMATED COUNT 0.2 10*3/uL Normal 0.0-0.2 [facility] Comment on above: Performed By: #### Ha SAMSON, CMP #### [facility] ([id number]) [address] [place] [address] BASOPHILS RELATIVE PERCENT BY AUTOMATED COUNT 2.1 % Normal [facility] Comment on above: Performed By: #### Ha SAMSON, CMP #### [facility] ([id number]) [address] [address] [place] [address] CELLAVISION DIFFERENTIAL TYPE AUTOMATED DIFFERENTIAL Normal [facility] Comment on above: Performed By: #### C MALI, CMP #### [facility] ([id number]) [address] [address] [place] [address] Eosinophils (Bld) [#/Vol] 0.3 10*3/uL Normal 0.0-0.4 [facility] Comment on above: Performed By: #### C MALI, CMP #### [facility] ([id number]) [address] [place] [address] EOSINOPHILS RELATIVE PERCENT BY AUTOMATED COUNT 3.8 % Normal [facility] Comment on above: Performed By: #### C BCA, CMP #### [facility] ([id number]) [address] [place] [address] Erythrocyte distribution width (RBC) [Ratio] 13.8 % Normal 11.5-15 [facility] Comment on above: Performed By: #### C BCA, CMP #### [facility] ([id number]) [address] [place] [address] Hematocrit (Bld) [Volume fraction] 39.7 % Normal 35-47 [facility] Comment on above: Performed By: #### C BCA, CMP #### [facility] ([id number]) [address] [place] [address] Hemoglobin (Bld) [Mass/Vol] 13.5 g/dL Normal 11.7-15.5 [facility] Comment on above: Performed By: #### C BCA, CMP #### [facility] ([id number]) [address] [place] [address] LYMPHOCYTES ABSOLUTE COUNT (10*3/UL) BY AUTOMATED COUNT 1.2 10*3/uL Normal 1.0-3.5 [facility] Comment on above: Performed By: #### C BCA, CMP #### [facility] ([id number]) [address] [place] [address] LYMPHOCYTES RELATIVE PERCENT BY AUTOMATED COUNT 15.4 % Normal [facility] Comment on above: Performed By: #### C BCA, CMP #### [facility] ([id number]) [address] [place] [address] MCH (RBC) [Entitic mass] 31.8 pg Normal 27-34 [facility] Comment on above: Performed By: #### C BCA, CMP #### [facility] ([id number]) [address] [place] [address] MCHC (RBC) [Mass/Vol] 33.9 g/dL Normal 32-36 [facility] Comment on above: Performed By: #### C BCA, CMP #### [facility] ([id number]) [address] [place] [address] MCV (RBC) [Entitic vol] 94 fL Normal 80-100 [facility] Comment on above: Performed By: #### C BCA, CMP #### [facility] ([id number]) [address] [place] [address] MONOCYTES ABSOLUTE COUNT (10*3/UL) BY AUTOMATED COUNT 0.8 10*3/uL Normal 0.0-0.9 [facility] Comment on above: Performed By: #### C BCA, CMP #### [facility] ([id number]) [address], [address] [place] [address] MONOCYTES RELATIVE PERCENT BY AUTOMATED COUNT 11.0 % Normal [facility] Comment on above: Performed By: #### C BCA, CMP #### [facility] ([id number]) [address], [address] [place] [address] NEUTROPHILS ABSOLUTE COUNT BY AUTOMATED COUNT 5.1 10*3/uL Normal 1.5-6.6 [facility] Comment on above: Performed By: #### C BCA, CMP #### [facility] ([id number]) [address], [address] [place] [address] NEUTROPHILS RELATIVE PERCENT BY AUTOMATED COUNT 67.7 % Normal [facility] Comment on above: Performed By: #### C BCA, CMP #### [facility] ([id number]) [address], [address] [place] [address] Platelet mean volume (Bld) [Entitic vol] 9.6 fL Normal 7-12 [facility] Comment on above: Performed By: #### C BCA, CMP #### [facility] ([id number]) [address], [address] [place] [address] Platelets (Bld) [#/Vol] 280 10*3/uL Normal 150-450 [facility] Comment on above: Performed By: #### C BCA, CMP #### [facility] ([id number]) [address], [address] [place] [address] RBC COUNT 4.24 X10E12/L Normal 3.8-5.2 [facility] Comment on above: Performed By: #### C BCA, CMP #### [facility] ([id number]) [address], [address] [place] [address] WBC (Bld) [#/Vol] 7.5 10*3/uL Normal 4-11 [place] [facility] Comment on above: Performed By: #### C BCA, CMP #### [facility] ([id number]) [address], [address] [place] [address] COMPREHENSIVE METABOLIC PANE Henry 08-23-2024 Albumin [Mass/Vol] 3.7 g/dL Normal 3.2-5.3 [facility] Comment on above: Performed By: #### C BCA, CMP #### [facility] ([id number]) [address], [address] [place] [address] ALP [Catalytic activity/Vol] 81 U/L Normal 39-130 [facility] Comment on above: Performed By: #### C BCA, CMP #### [facility] ([id number]) [address], [address] [place] [address] ALT [Catalytic activity/Vol] 15 U/L Normal <=31 [facility] Comment on above: Performed By: #### C BCA, CMP #### [facility] ([id number]) [address], [address] [place] [address] Anion gap [Moles/Vol] 11 mmol/L Normal 5-15 [facility] Comment on above: Performed By: #### C BCA, CMP #### [facility] ([id number]) [address], [address] [place] [address] AST [Catalytic activity/Vol] 24 U/L Normal <=41 [facility] Comment on above: Performed By: #### C BCA, CMP #### [facility] ([id number]) [address] [place] [address] Bilirubin [Mass/Vol] 0.4 mg/dL Normal 0.3-1.2 [facility] Comment on above: Performed By: #### C BCA, CMP #### [facility] ([id number]) [address], [address] [place] [address] Calcium [Mass/Vol] 9.4 mg/dL Normal 8.5-10.5 [facility] Comment on above: Performed By: #### C BCA, CMP #### [facility] ([id number]) [address], [address] [place] [address] Chloride [Moles/Vol] 105 mmol/L Normal 98-109 [facility] Comment on above: Performed By: #### C BCA, CMP #### [facility] ([id number]) [address] [place] [address] CO2 [Moles/Vol] 24 mmol/L Normal 22-32 [facility] Comment on above: Performed By: #### C BCA, CMP #### [facility] ([id number]) [address] [place] [address] Creatinine [Mass/Vol] 0.68 mg/dL Normal 0.40-1.00 [facility] Comment on above: Result Comment: METH OD TRACEABLE TO IDMS STANDARD Performed By: #### C BCA, CMP #### [facility] ([id number]) [address], [address] [place] [address] GFR/1.73 sq M.predicted among non-blacks MDRD (S/P/Bld) [Vol rate/Area] 86 mL/min/{1.73_m2} Normal >=60 [facility] Comment on above: Result Comment: Repo rted eGFR is based on the CKD-EPI 2020 equation that does not use a race coefficient. Performed By: #### C BCA, CMP #### [facility] ([id number]) [address] [place] [address] Glucose [Mass/Vol] 107 mg/dL High 65-99 [facility] Comment on above: Performed By: #### C BCA, CMP #### [facility] ([id number]) [address] [place] [address] Potassium [Moles/Vol] 3.9 mmol/L Normal 3.5-5.0 [facility] Comment on above: Performed By: #### C BCA, CMP #### [facility] ([id number]) [address] [place] [address] Protein [Mass/Vol] 6.2 g/dL Normal 6.0-8.0 [facility] Comment on above: Performed By: #### C BCA, CMP #### [facility] ([id number]) [address] [place] [address] Sodium [Moles/Vol] 140 mmol/L Normal 134-146 [facility] Comment on above: Performed By: #### C BCA, CMP #### [facility] ([id number]) [address] [place] [address] Urea nitrogen [Mass/Vol] 16 mg/dL Normal 5-27 [facility] Comment on above: Performed By: #### C BCA, CMP #### [facility] ([id number]) [address], [address] [place] [address] CBC AND AUTO DIFFon 07-27-19 25 ABSOLUTE BASOPHIL 0.2 X10E9/L Normal 0.0-0.2 [facility] Comment on above: Performed By: #### C BCA, CMP #### [facility] ([id number]) [address], [address] [place] [address] ABSOLUTE NEUTROPHIL 4.9 X10E9/L Normal 1.5-6.6 [facility] Comment on above: Performed By: #### C MALI, CMP #### [facility] ([id number]) [address] [place] [address] Basophils/100 WBC (Bld) 2.4 % Normal [facility] Comment on above: Performed By: #### Ha SAMSON, CMP #### [facility] ([id number]) [address] [place] [address] Eosinophils (Bld) [#/Vol] 0.3 10*3/uL Normal 0.0-0.4 [facility] Comment on above: Performed By: #### C MALI, CMP #### [facility] ([id number]) [address] [place] [address] Eosinophils/100 WBC (Bld) 3.5 % Normal [facility] Comment on above: Performed By: #### C MALI, CMP #### [facility] ([id number]) [address] [place] [address] Erythrocyte distribution width (RBC) [Ratio] 14.2 % Normal 11.5-15.0 [facility] Comment on above: Performed By: #### C BCA, CMP #### [facility] ([id number]) [address] [place] [address] Hematocrit (Bld) [Volume fraction] 39.3 % Normal 35-47 [facility] Comment on above: Performed By: #### C BCA, CMP #### [facility] ([id number]) [address] [place] [address] Hemoglobin (Bld) [Mass/Vol] 13.0 g/dL Normal 11.7-15.5 [facility] Comment on above: Performed By: #### C BCA, CMP #### [facility] ([id number]) [address] [place] [address] Lymphocytes (Bld) [#/Vol] 1.1 10*3/uL Normal 1.0-3.5 [facility] Comment on above: Performed By: #### C BCA, CMP #### [facility] ([id number]) [address] [place] [address] Lymphocytes/100 WBC (Bld) 14.9 % Normal [facility] Comment on above: Performed By: #### C BCA, CMP #### [facility] ([id number]) [address] [place] [address] MCH (RBC) [Entitic mass] 31.7 pg Normal 27-34 [facility] Comment on above: Performed By: #### C BCA, CMP #### [facility] ([id number]) [address] [place] [address] MCHC (RBC) [Mass/Vol] 33.1 g/dL Normal 32-36 [facility] Comment on above: Performed By: #### C BCA, CMP #### [facility] ([id number]) [address] [place] [address] MCV (RBC) [Entitic vol] 96 fL Normal 80-100 [facility] Comment on above: Performed By: #### C BCA, CMP #### [facility] ([id number]) [address] [place] [address] Monocytes (Bld) [#/Vol] 0.9 10*3/uL Normal 0-0.9 [facility] Comment on above: Performed By: #### C BCA, CMP #### [facility] ([id number]) [address] [place] [address] Monocytes/100 WBC (Bld) 12.9 % Normal [facility] Comment on above: Performed By: #### C BCA, CMP #### [facility] ([id number]) [address], [address] [place] [address] Neutrophils/100 WBC (Bld) 66.3 % Normal [facility] Comment on above: Performed By: #### C MALI, CMP #### [facility] ([id number]) [address] [place] [address] Platelet mean volume (Bld) [Entitic vol] 9.2 fL Normal 7-12 [facility] Comment on above: Performed By: #### C MALI, CMP #### [facility] ([id number]) [address] [place] [address] Platelets (Bld) [#/Vol] 286 10*3/uL Normal 150-450 [facility] Comment on above: Performed By: #### C MALI, CMP #### [facility] ([id number]) [address], [address] [place] [address] RBC COUNT 4.09 X10E12/L Normal 3.80-5.20 [facility] Comment on above: Performed By: #### C BCA, CMP #### [facility] ([id number]) [address] [place] [address] WBC (Bld) [#/Vol] 7.4 10*3/uL Normal 4.0-11.0 [facility] Comment on above: Performed By: #### C BCA, CMP #### [facility] ([id number]) [address] [place] [address] COMPREHENSIVE METABOLIC PANE Henry 07-26-2024 Albumin [Mass/Vol] 3.7 g/dL Normal 3.2-5.3 [facility] Comment on above: Performed By: #### C BCA, CMP #### [facility] ([id number]) [address] [place] [address] ALP [Catalytic activity/Vol] 80 U/L Normal 39-130 [facility] Comment on above: Performed By: #### C BCA, CMP #### [facility] ([id number]) [address] [place] [address] ALT [Catalytic activity/Vol] 10 U/L Normal 0-31 [facility] Comment on above: Performed By: #### C BCA, CMP #### [facility] ([id number]) [address] [place] [address] Anion gap [Moles/Vol] 9 mmol/L Normal 5-15 [facility] Comment on above: Performed By: #### C BCA, CMP #### [facility] ([id number]) [address] [place] [address] AST [Catalytic activity/Vol] 27 U/L Normal 0-41 [facility] Comment on above: Performed By: #### C BCA, CMP #### [facility] ([id number]) [address] [place] [address] Bilirubin [Mass/Vol] 0.5 mg/dL Normal 0.3-1.2 [facility] Comment on above: Performed By: #### C BCA, CMP #### [facility] ([id number]) [address] [place] [address] Calcium [Mass/Vol] 8.9 mg/dL Normal 8.5-10.5 [facility] Comment on above: Performed By: #### C BCA, CMP #### [facility] ([id number]) [address] [place] [address] Chloride [Moles/Vol] 108 mmol/L Normal 98-109 [facility] Comment on above: Performed By: #### C BCA, CMP #### [facility] ([id number]) [address] [place] [address] CO2 [Moles/Vol] 24 mmol/L Normal 22-32 [facility] Comment on above: Performed By: #### C BCA, CMP #### [facility] ([id number]) [address] [place] [address] Creatinine [Mass/Vol] 0.68 mg/dL Normal 0.40-1.00 [facility] Comment on above: Result Comment: METH OD TRACEABLE TO IDMS STANDARD Performed By: #### C BCA, CMP #### [facility] ([id number]) [address] [place] [address] GFR/1.73 sq M.predicted among non-blacks MDRD (S/P/Bld) [Vol rate/Area] 86 mL/min/{1.73_m2} Normal >59 [facility] Comment on above: Result Comment: Reported eGFR is based on the CKD-EPI 1 equation that does not use a race coefficient. Performed By: #### C BCA, CMP #### [facility] ([id number]) [address] [place] [address] Glucose [Mass/Vol] 82 mg/dL Normal 65-99 [facility] Comment on above: Performed By: #### C BCA, CMP #### [facility] ([id number]) [address] [place] [address] Potassium [Moles/Vol] 3.8 mmol/L Normal 3.5-5.0 [facility] Comment on above: Performed By: #### C BCA, CMP #### [facility] ([id number]) [address] [place] [address] Protein [Mass/Vol] 6.2 g/dL Normal 6.0-8.0 [facility] Comment on above: Performed By: #### C BCA, CMP #### [facility] ([id number]) [address] [place] [address] Sodium [Moles/Vol] 141 mmol/L Normal 134-146 [facility] Comment on above: Performed By: #### C BCA, CMP #### [facility] ([id number]) [address] [place] [address] Urea nitrogen [Mass/Vol] 16 mg/dL Normal 5-27 [facility] Comment on above: Performed By: #### C BCA, CMP #### [facility] ([id number]) [address] [place] [address] ESR Photometric method (Bld) [Velocity]on 07-26-2024 ESR, ERYTHROCYTE SEDIMENTATION RATE 6 mm/h Normal 0-30 [facility] Comment on above: Performed By: #### C BCA, CMP #### [facility] ([id number]) [address] [place] [address] LIVER PANELon 07-26-2024 Bilirubin.direct [Mass/Vol] 0.1 mg/dL Normal 0.0-0.4 [facility] Comment on above: Result Comment: SPEC IMEN HEMOLYZED, RESULTS DECREASED SLIGHTLY HEMOLYZED Performed By: #### C BCA, CMP #### [facility] ([id number]) [address] [place] [address] Transthoracic echo (TTE) com plete with strainon 07-11-[address] [place] [address] Cardiology Report Signed Patient: ANGELIKA MARTINS MR#: [id number] : 1940 Acct:[id number] Age/Sex: 84 / F ADM Date: 07/06/24 Loc: CARD Attending Dr: Cristela Portillo M.D. Ordering Physician: Cristela Portillo M.D. Date of Service: 07/06/24 Procedure(s): CA myocardial strain Accession Number(s): [id number] cc: Boone Ewing M.D.; Cristela Portillo M.D. Patient Name: ANGELIKA MARTINS MR#: [id number] : 1940 Exam Date: 07/06/2024 Ordering Doctor: DR. WILL CUADRA M.D. ECHOCARDIOGRAM REPORT PROCEDURE: CARDIO PULMONARY ECHOCARDIO M/2D COMP INDICATIONS: HER2-positive carcinoma of right breast, cardiotoxic therapy COMPARISON: None. DESCRIPTION: COMPLETE ECHOCARDIOGRAM Real-time transthoracic echocardiography with 2D, M-mode, spectral and color flow Doppler performed. QUALITY: Technical quality was good. LEFT VENTRICLE: Normal chamber size. Normal left ventricular wall thickness. Systolic function is at the lower limits of normal. Left ventricular strain: Full A4CH -13.9%, Full A2C -15.2%, Full APLAX -14.6%, average global longitudinal strain -14.6%. Strain values are mildly reduced. LV EF: Estimated left ventricular ejection fraction is 50-55%. Lower limits of normal left ventricular ejection fraction, (50-55%). DIASTOLIC: Grade II diastolic dysfunction. ATRIAL SEPTUM: Visually appears intact. LEFT ATRIUM: Severe dilatation. RIGHT ATRIUM: Severe dilatation. RIGHT VENTRICLE: Normal chamber size. Normal right ventricular systolic function. TRICUSPID VALVE: Normal mobility and thickness. No stenosis with mild to moderate regurgitation. Doppler studies reveal moderately (45-60) elevated right sided pressures. RVSP 46 mmHg MITRAL VALVE: Normal mobility and thickness. No evidence of mitral valve stenosis. There is no mitral annular calcification. Mild to moderate mitral regurgitation. AORTIC VALVE: Normal trileaflet appearance. No visible sclerosis. Normal leaflet mobility. No evidence of aortic valve stenosis. Trivial aortic regurgitation. AORTIC ROOT: Normal diameter and appearance, measuring 2.8 cm. Ascending aorta is normal in size, measuring 2.7 cm. PULMONIC VALVE: Normal thickness and mobility. No stenosis. No regurgitation. PERICARDIUM: No evidence of pericardial effusion. IVC: Collapses with inspirations. IVC is normal in size. PLEURA: CONCLUSION: 1. Normal left ventricular size with low normal systolic function. Estimated LVEF is 50-55%. Global longitudinal strain is mildly reduced. 2. Normal right ventricular size and systolic function. 3. Severe biatrial dilatation. 4. Mild to moderate mitral and tricuspid regurgitation. 5. Grade 2 diastolic dysfunction. 6. Moderately elevated right-sided pressures. RVSP is 46 mmHg. Adult Echocardiography Procedure Report Left Ventricle LVEDD (3.7 - 5.6 cm): 3.54 cm LVESD (2.2 - 4.0 cm): 2.60 cm LVIVS thickness (0.6 - 1.2 cm): 1.05 cm LVPW thickness (0.5 - 1.0 cm): 0.88 cm e': 0.09 m/s E - e': 9.67 LVOT Max Gradient: 1.95 mm[Hg] LVOT Area (cm2): 0.70 m/s Peak Velocity (LVOT): 0.70 m/s Mean Velocity (LVOT): 0.52 m/s LVOT Diameter 2.04 cm Left Atrium LA Volume Index (2D A2C): 51.45 ml/m2 Left Atrium Systolic Dimension: 2.73 cm Mitral Valve MV E to A Ratio: 1.21 Mitral Valve A-Wave Peak Velocity: 0.70 m/s Mitral Valve E-Wave Peak Velocity: 0.85 m/s Right Ventricle Aorta AO Root Diam: 2.84 cm Ascending Ao Diam: 2.69 cm Aortic Valve AoV Area (Peak Uriel): 2.05 cm2, 2.05 cm2 AoV Area (VTI): 2.28 cm2, 2.28 cm2 Peak Velocity(Antegrade Flow): 1.11 m/s Peak Gradient(Antegrade Flow): 4.93 mm[Hg] Mean Velocity(Antegrade Flow): 0.76 m/s Mean Gradient(Antegrade Flow): 2.63 mm[Hg] Velocity Time Integral: 25.25 cm Tricuspid Valve Peak Velocity (Regurgitant Flow): 3.28 m/s, 2.96 m/s, 3.18 m (more content not included)... [facility] Radiology, Radiologist, MD - 07/11/2024 [place] [address] Cardiology Report Signed Patient: ANGELIKA MARTINS MR#: [id number] : 1940 Acct:[id number] Age/Sex: 84 / F ADM Date: 07/06/24 Loc: CARD Attending Dr: Cristela Portillo M.D. Ordering Physician: Cristela Portillo M.D. Date of Service: 07/06/24 Procedure(s): CA myocardial strain Accession Number(s): [id number] cc: Boone Ewing M.D.; Cristela Portillo M.D. Patient Name: ANGELIKA MARTINS MR#: [id number] : 1940 Exam Date: 07/06/2024 Ordering Doctor: DR. WILL CUADRA M.D. ECHOCARDIOGRAM REPORT PROCEDURE: CARDIO PULMONARY ECHOCARDIO M/2D COMP INDICATIONS: HER2-positive carcinoma of right breast, cardiotoxic therapy COMPARISON: None. DESCRIPTION: COMPLETE ECHOCARDIOGRAM Real-time transthoracic echocardiography with 2D, M-mode, spectral and color flow Doppler performed. QUALITY: Technical quality was good. LEFT VENTRICLE: Normal chamber size. Normal left ventricular wall thickness. Systolic function is at the lower limits of normal. Left ventricular strain: Full A4CH -13.9%, Full A2C -15.2%, Full APLAX -14.6%, average global longitudinal strain -14.6%. Strain values are mildly reduced. LV EF: Estimated left ventricular ejection fraction is 50-55%. Lower limits of normal left ventricular ejection fraction, (50-55%). DIASTOLIC: Grade II diastolic dysfunction. ATRIAL SEPTUM: Visually appears intact. LEFT ATRIUM: Severe dilatation. RIGHT ATRIUM: Severe dilatation. RIGHT VENTRICLE: Normal chamber size. Normal right ventricular systolic function. TRICUSPID VALVE: Normal mobility and thickness. No stenosis with mild to moderate regurgitation. Doppler studies reveal moderately (45-60) elevated right sided pressures. RVSP 46 mmHg MITRAL VALVE: Normal mobility and thickness. No evidence of mitral valve stenosis. There is no mitral annular calcification. Mild to moderate mitral regurgitation. AORTIC VALVE: Normal trileaflet appearance. No visible sclerosis. Normal leaflet mobility. No evidence of aortic valve stenosis. Trivial aortic regurgitation. AORTIC ROOT: Normal diameter and appearance, measuring 2.8 cm. Ascending aorta is normal in size, measuring 2.7 cm. PULMONIC VALVE: Normal thickness and mobility. No stenosis. No regurgitation. PERICARDIUM: No evidence of pericardial effusion. IVC: Collapses with inspirations. IVC is normal in size. PLEURA: CONCLUSION: 1. Normal left ventricular size with low normal systolic function. Estimated LVEF is 50-55%. Global longitudinal strain is mildly reduced. 2. Normal right ventricular size and systolic function. 3. Severe biatrial dilatation. 4. Mild to moderate mitral and tricuspid regurgitation. 5. Grade 2 diastolic dysfunction. 6. Moderately elevated right-sided pressures. RVSP is 46 mmHg. Adult Echocardiography Procedure Report Left Ventricle LVEDD (3.7 - 5.6 cm): 3.54 cm LVESD (2.2 - 4.0 cm): 2.60 cm LVIVS thickness (0.6 - 1.2 cm): 1.05 cm LVPW thickness (0.5 - 1.0 cm): 0.88 cm e': 0.09 m/s E - e': 9.67 LVOT Max Gradient: 1.95 mm[Hg] LVOT Area (cm2): 0.70 m/s Peak Velocity (LVOT): 0.70 m/s Mean Velocity (LVOT): 0.52 m/s LVOT Diameter 2.04 cm Left Atrium LA Volume Index (2D A2C): 51.45 ml/m2 Left Atrium Systolic Dimension: 2.73 cm Mitral Valve MV E to A Ratio: 1.21 Mitral Valve A-Wave Peak Velocity: 0.70 m/s Mitral Valve E-Wave Peak Velocity: 0.85 m/s Right Ventricle Aorta AO Root Diam: 2.84 cm Ascending Ao Diam: 2.69 cm Aortic Valve AoV Area (Peak Uriel): 2.05 cm2, 2.05 cm2 AoV Area (VTI): 2.28 cm2, 2.28 cm2 Peak Velocity(Antegrade Flow): 1.11 m/s Peak Gradient(Antegrade Flow): 4.93 mm[Hg] Mean Velocity(Antegrade Flow): 0.76 m/s Mean Gradient(Antegrade Flow): 2.63 mm[Hg] Velocity Time Integral: 25.25 cm Tricuspid Valve Peak Velocity (Regurgitant Flow): 3.28 m/s, 2.96 m/s, 3.18 m/s Pulmonic Valve Peak Gradient: 1.19 mm[Hg], 1.52 mm[Hg] Right Atrium Right Atrium Systolic Pressure: 38.30 ml, 38.30 ml Dictated by: Bobby Moore M.D. on 07/06/2024 at 17:32 Approved by: Bobby Moore M.D. on 07/06/2024 at 17:43 Dictated By: BOBBY MOORE Signed By: 07/11/24 1018 DD/ 1748 TD/TT: Playground Director: [facility] Transthoracic echo (TTE) com plete with strainOrdered By: Radiologist Radiology on 07-11-2024 [facility] Work Phone: Transthoracic echo (TTE) com plete with strainon 07-06-2024 Radiology Study observation (narrative) [facility] US BREAST RT LIMITEDon 07-05 US BREAST RT LIMITED US BREAST RT LIMITE Jonathon MARTINS 1940 [id number] EXAM: US BREAST RT LIMITED, 07/05/2024 12:53 PM CLINICAL INDICATIONS:HER2-pos itive carcinoma of right breast (CMS-HCC); Right breast cancer with T3 tumor, >5 cm in greatest dimension (CMS-HCC). . COMPARISON: Comparison made to previous examination from outside facility dated 03/21/2024 TECHNIQUE: Multiple real-time cheng-scale images of the right breast in the 10 o'clock axis were performed. Color Doppler was utilized to assess vascular flow. FINDINGS: The previously described right breast mass is again seen. On the current examination, there are 2 adjacent nodules seen. The largest measures 4.5 x 2.2 x 1.1 cm while the smaller more homogeneous appearing nodule measures 1.3 x 0.7 x 1.1 cm. A adjacent biopsy clip is demonstrated. No other abnormalities are seen. IMPRESSION: 2 adjacent right breast masses, showing no significant change since the previous examination dated 03/21/2024. BI-RADS: BI-RADS 6 - Known Biopsy-Proven Malignancy Recommendation: Follow up with referring physician Patient was given the results before leaving the department. Finalized by Sekou Vega MD on 07/05/2024 1:32 PM 6 F/U REFER DR Normal [facility] CBC AND AUTO DIFFon 06-29-19 ABSOLUTE BASOPHIL 0.1 X10E9/L Normal 0.0-0.2 [facility] Comment on above: Performed By: #### C BCA, CMP #### [facility] ([id number]) [address] [place] [address] ABSOLUTE NEUTROPHIL 8.7 X10E9/L High 1.5-6.6 [facility] Comment on above: Performed By: #### C BCA, CMP #### [facility] ([id number]) [address] [place] [address] Basophils/100 WBC (Bld) 1.2 % Normal [facility] Comment on above: Performed By: #### C BCA, CMP #### [facility] ([id number]) [address] [place] [address] Eosinophils (Bld) [#/Vol] 0.2 10*3/uL Normal 0.0-0.4 [facility] Comment on above: Performed By: #### C BCA, CMP #### [facility] ([id number]) [address] [place] [address] Eosinophils/100 WBC (Bld) 2.1 % Normal [facility] Comment on above: Performed By: #### C BCA, CMP #### [facility] ([id number]) [address] [place] [address] Erythrocyte distribution width (RBC) [Ratio] 14.4 % Normal 11.5-15.0 [facility] Comment on above: Performed By: #### C BCA, CMP #### [facility] ([id number]) [address], [address] [place] [address] Hematocrit (Bld) [Volume fraction] 37.1 % Normal 35-47 [facility] Comment on above: Performed By: #### C BCA, CMP #### [facility] ([id number]) [address], [address] [place] [address] Hemoglobin (Bld) [Mass/Vol] 12.3 g/dL Normal 11.7-15.5 [facility] Comment on above: Performed By: #### C BCA, CMP #### [facility] ([id number]) [address], [facility] [address] [place] [address] Lymphocytes (Bld) [#/Vol] 1.1 10*3/uL Normal 1.0-3.5 [facility] Comment on above: Performed By: #### C BCA, CMP #### [facility] ([id number]) [address], [address] [place] [address] Lymphocytes/100 WBC (Bld) 9.8 % Normal [facility] Comment on above: Performed By: #### C BCA, CMP #### [facility] ([id number]) [address], [address] [place] [address] MCH (RBC) [Entitic mass] 31.4 pg Normal 27-34 [facility] Comment on above: Performed By: #### C BCA, CMP #### [facility] ([id number]) [address], [address] [place] [address] MCHC (RBC) [Mass/Vol] 33.3 g/dL Normal 32-36 [facility] Comment on above: Performed By: #### C BCA, CMP #### [facility] ([id number]) [address], [address] [place] [address] MCV (RBC) [Entitic vol] 94 fL Normal 80-100 [facility] Comment on above: Performed By: #### C BCA, CMP #### [facility] ([id number]) [address] [place] [address] Monocytes (Bld) [#/Vol] 1.1 10*3/uL High 0-0.9 [facility] Comment on above: Performed By: #### C BCA, CMP #### [facility] ([id number]) [address], [address] [place] [address] Monocytes/100 WBC (Bld) 10.1 % Normal [facility] Comment on above: Performed By: #### C MALI, CMP #### [facility] ([id number]) [address], [address] [place] [address] Neutrophils/100 WBC (Bld) 76.8 % Normal [facility] Comment on above: Performed By: #### C BCA, CMP #### [facility] ([id number]) [address] [place] [address] Platelet mean volume (Bld) [Entitic vol] 9.4 fL Normal 7-12 [facility] Comment on above: Performed By: #### C MALI, CMP #### [facility] ([id number]) [address] [place] [address] Platelets (Bld) [#/Vol] 284 10*3/uL Normal 150-450 [facility] Comment on above: Performed By: #### C BCA, CMP #### [facility] ([id number]) [address] [place] [address] RBC COUNT 3.93 X10E12/L Normal 3.80-5.20 [facility] Comment on above: Performed By: #### C BCA, CMP #### [facility] ([id number]) [address], [address] [place] [address] WBC (Bld) [#/Vol] 11.3 10*3/uL High 4.0-11.0 [facility] Comment on above: Performed By: #### C BCA, CMP #### [facility] ([id number]) [address] [place] [address] COMPREHENSIVE METABOLIC PANE Henry 06-28-2024 Albumin [Mass/Vol] 3.5 g/dL Normal 3.2-5.3 [facility] Comment on above: Performed By: #### C BCA, CMP #### [facility] ([id number]) [address], [address] [place] [address] ALP [Catalytic activity/Vol] 82 U/L Normal 39-130 [facility] Comment on above: Performed By: #### C BCA, CMP #### [facility] ([id number]) [address], [address] [place] [address] ALT [Catalytic activity/Vol] 11 U/L Normal 0-31 [facility] Comment on above: Performed By: #### C BCA, CMP #### [facility] ([id number]) [address], [address] [place] [address] Anion gap [Moles/Vol] 9 mmol/L Normal 5-15 [facility] Comment on above: Performed By: #### C BCA, CMP #### [facility] ([id number]) [address], [address] [place] [address] AST [Catalytic activity/Vol] 23 U/L Normal 0-41 [facility] Comment on above: Performed By: #### C BCA, CMP #### [facility] ([id number]) [address], [address] [place] [address] Bilirubin [Mass/Vol] 0.5 mg/dL Normal 0.3-1.2 [facility] Comment on above: Performed By: #### C BCA, CMP #### [facility] ([id number]) [address] [place] [address] Calcium [Mass/Vol] 9.1 mg/dL Normal 8.5-10.5 [facility] Comment on above: Performed By: #### C BCA, CMP #### [facility] ([id number]) [address], [address] [place] [address] Chloride [Moles/Vol] 105 mmol/L Normal 98-109 [facility] Comment on above: Performed By: #### C BCA, CMP #### [facility] ([id number]) [address], [address] [place] [address] CO2 [Moles/Vol] 25 mmol/L Normal 22-32 [facility] Comment on above: Performed By: #### C BCA, CMP #### [facility] ([id number]) [address] [place] [address] Creatinine [Mass/Vol] 0.71 mg/dL Normal 0.40-1.00 [facility] Comment on above: Result Comment: METH OD TRACEABLE TO IDMS STANDARD Performed By: #### C BCA, CMP #### [facility] ([id number]) [address] [address] [place] [address] GFR/1.73 sq M.predicted among non-blacks MDRD (S/P/Bld) [Vol rate/Area] 84 mL/min/{1.73_m2} Normal >59 [facility] Comment on above: Result Comment: Reported eGFR is based on the CKD-EPI 2020 equation that does not use a race coefficient. Performed By: #### C BCA, CMP #### [facility] ([id number]) [address], [address] [place] [address] Glucose [Mass/Vol] 98 mg/dL Normal 65-99 [facility] Comment on above: Performed By: #### C BCA, CMP #### [facility] ([id number]) [address] [address] [place] [address] Potassium [Moles/Vol] 3.6 mmol/L Normal 3.5-5.0 [facility] Comment on above: Performed By: #### C BCA, CMP #### [facility] ([id number]) [address], [address] [place] [address] Protein [Mass/Vol] 5.9 g/dL Low 6.0-8.0 [facility] Comment on above: Performed By: #### C BCA, CMP #### [facility] ([id number]) [address], [address] [place] [address] Sodium [Moles/Vol] 139 mmol/L Normal 134-146 [facility] Comment on above: Performed By: #### C BCA, CMP #### [facility] ([id number]) [address], [address] [place] [address] Urea nitrogen [Mass/Vol] 15 mg/dL Normal 5-27 [facility] Comment on above: Performed By: #### C BCA, CMP #### [facility] ([id number]) [address], [address] [place] [address] CBC AND AUTO DIFFon 06-08-19 25 ABSOLUTE BASOPHIL 0.1 X10E9/L Normal 0.0-0.2 [facility] Comment on above: Performed By: #### C BCA, CMP #### [facility] ([id number]) [address], [address] [place] [address] ABSOLUTE NEUTROPHIL 4.0 X10E9/L Normal 1.5-6.6 [facility] Comment on above: Performed By: #### C BCA, CMP #### [facility] ([id number]) [address], [address] [place] [address] Basophils/100 WBC (Bld) 2.0 % Normal [facility] Comment on above: Performed By: #### C BCA, CMP #### [facility] ([id number]) [address] [address] [place] [address] Eosinophils (Bld) [#/Vol] 0.3 10*3/uL Normal 0.0-0.4 [facility] Comment on above: Performed By: #### C BCA, CMP #### [facility] ([id number]) [address] [address] [place] [address] Eosinophils/100 WBC (Bld) 4.3 % Normal [facility] Comment on above: Performed By: #### C MALI, CMP #### [facility] ([id number]) [address] [address] [place] [address] Erythrocyte distribution width (RBC) [Ratio] 14.2 % Normal 11.5-15.0 [facility] Comment on above: Performed By: #### C MALI, CMP #### [facility] ([id number]) [address] [address] [place] [address] Hematocrit (Bld) [Volume fraction] 37.3 % Normal 35-47 [facility] Comment on above: Performed By: #### C MALI, CMP #### [facility] ([id number]) [address] [address] [place] [address] Hemoglobin (Bld) [Mass/Vol] 12.4 g/dL Normal 11.7-15.5 [facility] Comment on above: Performed By: #### C BCA, CMP #### [facility] ([id number]) [address] [address] [place] [address] Lymphocytes (Bld) [#/Vol] 0.9 10*3/uL Low 1.0-3.5 [facility] Comment on above: Performed By: #### C BCA, CMP #### [facility] ([id number]) [address] [address] [place] [address] Lymphocytes/100 WBC (Bld) 14.6 % Normal [facility] Comment on above: Performed By: #### C BCA, CMP #### [facility] ([id number]) [address], [address] [place] [address] MCH (RBC) [Entitic mass] 31.5 pg Normal 27-34 [facility] Comment on above: Performed By: #### C BCA, CMP #### [facility] ([id number]) [address] [place] [address] MCHC (RBC) [Mass/Vol] 33.3 g/dL Normal 32-36 [facility] Comment on above: Performed By: #### C BCA, CMP #### [facility] ([id number]) [address] [place] [address] MCV (RBC) [Entitic vol] 95 fL Normal 80-100 [facility] Comment on above: Performed By: #### C BCA, CMP #### [facility] ([id number]) [address] [place] [address] Monocytes (Bld) [#/Vol] 0.8 10*3/uL Normal 0-0.9 [facility] Comment on above: Performed By: #### C BCA, CMP #### [facility] ([id number]) [address] [place] [address] Monocytes/100 WBC (Bld) 12.7 % Normal [facility] Comment on above: Performed By: #### C BCA, CMP #### [facility] ([id number]) [address], [address] [place] [address] Neutrophils/100 WBC (Bld) 66.4 % Normal [facility] Comment on above: Performed By: #### C BCA, CMP #### [facility] ([id number]) [address], [address] [place] [address] Platelet mean volume (Bld) [Entitic vol] 9.1 fL Normal 7-12 [facility] Comment on above: Performed By: #### C MALI, CMP #### [facility] ([id number]) [address], [facility] [address] [place] [address] Platelets (Bld) [#/Vol] 323 10*3/uL Normal 150-450 [facility] Comment on above: Performed By: #### C BCA, CMP #### [facility] ([id number]) [address] [address] RBC COUNT 3.94 X10E12/L Normal 3.80-5.20 [facility] Comment on above: Performed By: #### C MALI, CMP #### [facility] ([id number]) [address] [address] WBC (Bld) [#/Vol] 6.0 10*3/uL Normal 4.0-11.0 [facility] Comment on above: Performed By: #### C MALI, CMP #### [facility] ([id number]) [address] [address] CREATININEon 06-07-2024 Creatinine [Mass/Vol] 0.64 mg/dL Normal 0.40-1.00 [facility] Comment on above: Result Comment: METH OD TRACEABLE TO IDMS STANDARD Performed By: #### C BCA, CMP #### [facility] ([id number]) [address] [address] GFR/1.73 sq M.predicted among non-blacks MDRD (S/P/Bld) [Vol rate/Area] 87 mL/min/{1.73_m2} Normal >59 [facility] Comment on above: Result Comment: Reported eGFR is based on the CKD-EPI 2020 equation that does not use a race coefficient. Performed By: #### C BCA, CMP #### [facility] ([id number]) [address] [place] [address] ESR Photometric method (Bld) [Velocity]on 06-07-2024 ESR, ERYTHROCYTE SEDIMENTATION RATE 8 mm/h Normal 0-30 [facility] Comment on above: Performed By: #### C BCA, CMP #### [facility] ([id number]) [address], [address] [place] [address] LIVER PANELon 06-07-2024 Albumin [Mass/Vol] 3.5 g/dL Normal 3.2-5.3 [facility] Comment on above: Performed By: #### C BCA, CMP #### [facility] ([id number]) [address], [address] [place] [address] ALP [Catalytic activity/Vol] 70 U/L Normal 39-130 [facility] Comment on above: Performed By: #### C BCA, CMP #### [facility] ([id number]) [address] [place] [address] ALT [Catalytic activity/Vol] 17 U/L Normal 0-31 [facility] Comment on above: Performed By: #### C BCA, CMP #### [facility] ([id number]) [address] [place] [address] AST [Catalytic activity/Vol] 27 U/L Normal 0-41 [facility] Comment on above: Performed By: #### C BCA, CMP #### [facility] ([id number]) [address] [place] [address] Bilirubin [Mass/Vol] 0.4 mg/dL Normal 0.3-1.2 [facility] Comment on above: Performed By: #### C BCA, CMP #### [facility] ([id number]) [address] [place] [address] Bilirubin.direct [Mass/Vol] 0.1 mg/dL Normal 0.0-0.4 [facility] Comment on above: Performed By: #### C BCA, CMP #### [facility] ([id number]) [address], [address] [place] [address] Protein [Mass/Vol] 5.9 g/dL Low 6.0-8.0 [facility] Comment on above: Performed By: #### C BCA, CMP #### [facility] ([id number]) [address] [place] [address] CBC AND AUTO DIFFon 05-31- 25 ABSOLUTE BASOPHIL 0.1 X10E9/L Normal 0.0-0.2 [facility] Comment on above: Performed By: #### C MP, CBCA #### [facility] ([id number]) [address] [place] [address] ABSOLUTE NEUTROPHIL 4.0 X10E9/L Normal 1.5-6.6 [facility] Comment on above: Performed By: #### C MP, CBCA #### [facility] ([id number]) [address], [facility] [address] [place] [address] Basophils/100 WBC (Bld) 1.5 % Normal [facility] Comment on above: Performed By: #### C MP, CBCA #### [facility] ([id number]) [address] [place] [address] Eosinophils (Bld) [#/Vol] 0.1 10*3/uL Normal 0.0-0.4 [facility] Comment on above: Performed By: #### C MP, CBCA #### [facility] ([id number]) [address] [address] [place] [address] Eosinophils/100 WBC (Bld) 2.2 % Normal [facility] Comment on above: Performed By: #### C MP, CBCA #### [facility] ([id number]) [address] [place] [address] Erythrocyte distribution width (RBC) [Ratio] 14.0 % Normal 11.5-15.0 [facility] Comment on above: Performed By: #### C MP, CBCA #### [facility] ([id number]) [address] [address] [place] [address] Hematocrit (Bld) [Volume fraction] 39.7 % Normal 35-47 [facility] Comment on above: Performed By: #### C MP, CBCA #### [facility] ([id number]) [address] [address] [place] [address] Hemoglobin (Bld) [Mass/Vol] 13.2 g/dL Normal 11.7-15.5 [facility] Comment on above: Performed By: #### C MP, CBCA #### [facility] ([id number]) [address] [address] [place] [address] Lymphocytes (Bld) [#/Vol] 1.1 10*3/uL Normal 1.0-3.5 [facility] Comment on above: Performed By: #### C MP, CBCA #### [facility] ([id number]) [address] [address] [place] [address] Lymphocytes/100 WBC (Bld) 18.1 % Normal [facility] Comment on above: Performed By: #### C MP, CBCA #### [facility] ([id number]) [address] [address] [place] [address] MCH (RBC) [Entitic mass] 31.4 pg Normal 27-34 [facility] Comment on above: Performed By: #### C MP, CBCA #### [facility] ([id number]) [address] [address] [place] [address] MCHC (RBC) [Mass/Vol] 33.2 g/dL Normal 32-36 [facility] Comment on above: Performed By: #### C MP, CBCA #### [facility] ([id number]) [address] [place] [address] MCV (RBC) [Entitic vol] 95 fL Normal 80-100 [facility] Comment on above: Performed By: #### C MP, CBCA #### [facility] ([id number]) [address] [place] [address] Monocytes (Bld) [#/Vol] 0.6 10*3/uL Normal 0-0.9 [facility] Comment on above: Performed By: #### C MP, CBCA #### [facility] ([id number]) [address] [place] [address] Monocytes/100 WBC (Bld) 9.7 % Normal [facility] Comment on above: Performed By: #### C MP, CBCA #### [facility] ([id number]) [address] [place] [address] Neutrophils/100 WBC (Bld) 68.5 % Normal [facility] Comment on above: Performed By: #### C MP, CBCA #### [facility] ([id number]) [address] [place] [address] Platelet mean volume (Bld) [Entitic vol] 9.1 fL Normal 7-12 [facility] Comment on above: Performed By: #### C MP, CBCA #### [facility] ([id number]) [address] [place] [address] Platelets (Bld) [#/Vol] 241 10*3/uL Normal 150-450 [facility] Comment on above: Performed By: #### C MP, CBCA #### [facility] ([id number]) [address] [place] [address] RBC COUNT 4.19 X10E12/L Normal 3.80-5.20 [facility] Comment on above: Performed By: #### C LARA CBCA #### [facility] ([id number]) [address] [place] [address] WBC (Bld) [#/Vol] 5.9 10*3/uL Normal 4.0-11.0 [facility] Comment on above: Performed By: #### C LARA CBCA #### [facility] ([id number]) [address] [place] [address] COMPREHENSIVE METABOLIC PANE Henry 05-31-2024 Albumin [Mass/Vol] 3.4 g/dL Normal 3.2-5.3 [facility] Comment on above: Performed By: #### C LARA CBCA #### [facility] ([id number]) [address] [place] [address] ALP [Catalytic activity/Vol] 63 U/L Normal 39-130 [facility] Comment on above: Performed By: #### C LARA CBCA #### [facility] ([id number]) [address] [place] [address] ALT [Catalytic activity/Vol] 14 U/L Normal 0-31 [facility] Comment on above: Performed By: #### C LARA CBCA #### [facility] ([id number]) [address] [place] [address] Anion gap [Moles/Vol] 7 mmol/L Normal 5-15 [facility] Comment on above: Performed By: #### C LARA CBCA #### [facility] ([id number]) [address] [place] [address] AST [Catalytic activity/Vol] 23 U/L Normal 0-41 [facility] Comment on above: Performed By: #### C LARA CBCA #### [facility] ([id number]) [address] [address] [place] [address] Bilirubin [Mass/Vol] 0.5 mg/dL Normal 0.3-1.2 [facility] Comment on above: Performed By: #### C LARA, CBCA #### [facility] ([id number]) [address] [address] [place] [address] Calcium [Mass/Vol] 9.0 mg/dL Normal 8.5-10.5 [facility] Comment on above: Performed By: #### C LARA CBCA #### [facility] ([id number]) [address] [address] [place] [address] Chloride [Moles/Vol] 106 mmol/L Normal 98-109 [facility] Comment on above: Performed By: #### C LARA CBCA #### [facility] ([id number]) [address] [address] [place] [address] CO2 [Moles/Vol] 27 mmol/L Normal 22-32 [facility] Comment on above: Performed By: #### C LARA CBCA #### [facility] ([id number]) [address] [address] [place] [address] Creatinine [Mass/Vol] 0.72 mg/dL Normal 0.40-1.00 [facility] Comment on above: Result Comment: METH OD TRACEABLE TO IDMS STANDARD Performed By: #### C LARA CBCA #### [facility] ([id number]) [address] [address] [place] [address] GFR/1.73 sq M.predicted among non-blacks MDRD (S/P/Bld) [Vol rate/Area] 82 mL/min/{1.73_m2} Normal >59 [facility] Comment on above: Result Comment: Reported eGFR is based on the CKD-EPI 2020 equation that does not use a race coefficient. Performed By: #### C LARA, CBCA #### [facility] ([id number]) [address] [place] [address] Glucose [Mass/Vol] 85 mg/dL Normal 65-99 [facility] Comment on above: Performed By: #### C MP, CBCA #### [facility] ([id number]) [address] [place] [address] Potassium [Moles/Vol] 3.6 mmol/L Normal 3.5-5.0 [facility] Comment on above: Performed By: #### C LARA, CBCA #### [facility] ([id number]) [address], [address] [place] [address] Protein [Mass/Vol] 6.0 g/dL Normal 6.0-8.0 [facility] Comment on above: Performed By: #### C LARA, CBCA #### [facility] ([id number]) [address], [address] [place] [address] Sodium [Moles/Vol] 140 mmol/L Normal 134-146 [facility] Comment on above: Performed By: #### C LARA, CBCA #### [facility] ([id number]) [address], [address] [place] [address] Urea nitrogen [Mass/Vol] 17 mg/dL Normal 5-27 [facility] Comment on above: Performed By: #### C LARA CBCA #### [facility] ([id number]) [address], [address] [place] [address] XR LUMBAR SPINE 2 OR 3[address] [address] XRay Report Signed Patient: ANGELIKA MARTINS MR#: [id number] : 1940 Acct:[id number] Age/Sex: 84 / F ADM Date: 05/09/24 Loc: RAD Attending Dr: Boone Ewing M.D. Ordering Physician: Boone Ewing M.D. Date of Service: 05/09/24 Procedure(s): XR lumbar spine 2-3V Accession Number(s): [id number] cc: Boone Ewing M.D. The [place] [id number] Patient Name: ANGELIKA MARTINS MRN: [facility]:[id number] date: 1940 Sex: F Assigned Patient Location: [facility] Current Patient Location: Accession/Order Number: [id number] Exam Date: 05/09/2024 12:40 Report Date: 05/12/2024 [...] with rotatory dextroscoliosis Electronically authenticated by: SEKOU JONES Date: 05/12/2024 10:18 Dictated By: Sekou Jones M.D. Signed By: 05/12/24 1020 DD/ 1018 TD/TT: Playground Director: [facility] Radiology, Radiologist, MD - 05/12/2024 The [place] [address] XRay Report Signed Patient: ANGELIKA MARTINS MR#: [id number] : 1940 Acct:[id number] Age/Sex: 84 / F ADM Date: 05/09/24 Loc: RAD Attending Dr: Boone Ewing M.D. Ordering Physician: Boone Ewing M.D. Date of Service: 05/09/24 Procedure(s): XR lumbar spine 2-3V Accession Number(s): [id number] cc: Boone Ewing M.D. [facility] [place] [id number] Patient Name: ANGELIKA MARTINS MRN: [id number] date: 1940 Sex: F Assigned Patient Location: [facility] Current Patient Location: Accession/Order Number: [id number] Exam Date: 05/09/2024 12:40 Report Date: 05/12/2024 [...] with rotatory dextroscoliosis Electronically authenticated by: SEKOU JONES Date: 05/12/2024 10:18 Dictated By: Sekou Jones M.D. Signed By: 05/12/24 1020 DD/ 1018 TD/TT: Playground Director: [facility] Radiology Study observation (narrative) [facility] XR LUMBAR SPINE 2 OR 3VOrder ed By: Radiologist Radiology on 05-12-2024 [facility] Work Phone: Urinalysis macro (dipstick) panel (U)on 05-09-2024 Bilirubin, UA Negative Negative - 4(70) +++ mg/dL [facility] Blood, UA Positive Negative - 50 Cr/mcL [facility] Clarity, UA Clear [facility] Color, UA Dark Terrie [facility] Glucose, UA Negative Negative - 2000(110) ++++ mg/dL [facility] Interpretation and review of laboratory results Normal [facility] Ketones, UA Negative Negative - 160(16) ++++ mg/dL [facility] Leukocytes, UA Negative Negative - 500+++ Radha/mcL [facility] Nitrite, UA Few Negative - Positive [facility] pH, UA 6 5 - 9 [facility] Protein, UA Negative Negative - 2000(20) ++++ mg/dL [facility] Spec Grav, UA 1.025 1 - 1.03 [facility] Urobilinogen, UA 0.2 0.2 - 12 mg/dL [facility] CBC AND AUTO DIFFon 05-03-19 25 ABSOLUTE BASOPHIL 0.1 X10E9/L Normal 0.0-0.2 [facility] Comment on above: Performed By: #### C MP, CBCA #### [facility] ([id number]) [address], [facility] [address] [place] [address] ABSOLUTE NEUTROPHIL 4.6 X10E9/L Normal 1.5-6.6 [facility] Comment on above: Performed By: #### C MP, CBCA #### [facility] ([id number]) [address], [address] [place] [address] Basophils/100 WBC (Bld) 1.3 % Normal [facility] Comment on above: Performed By: #### C MP, CBCA #### [facility] ([id number]) [address], [address] [place] [address] Eosinophils (Bld) [#/Vol] 0.2 10*3/uL Normal 0.0-0.4 [facility] Comment on above: Performed By: #### C MP, CBCA #### [facility] ([id number]) [address], [address] [place] [address] Eosinophils/100 WBC (Bld) 2.6 % Normal [facility] Comment on above: Performed By: #### C MP, CBCA #### [facility] ([id number]) [address], [address] [place] [address] Erythrocyte distribution width (RBC) [Ratio] 13.6 % Normal 11.5-15.0 [facility] Comment on above: Performed By: #### C MP, CBCA #### [facility] ([id number]) [address], [address] [place] [address] Hematocrit (Bld) [Volume fraction] 39.3 % Normal 35-47 [facility] Comment on above: Performed By: #### C MP, CBCA #### [facility] ([id number]) [address] [place] [address] Hemoglobin (Bld) [Mass/Vol] 13.5 g/dL Normal 11.7-15.5 [facility] Comment on above: Performed By: #### C MP, CBCA #### [facility] ([id number]) [address], [facility] [address] [place] [address] Lymphocytes (Bld) [#/Vol] 1.2 10*3/uL Normal 1.0-3.5 [facility] Comment on above: Performed By: #### C MP, CBCA #### [facility] ([id number]) [address] [facility] [address] [place] [address] Lymphocytes/100 WBC (Bld) 17.2 % Normal [facility] Comment on above: Performed By: #### C MP, CBCA #### [facility] ([id number]) [address] [place] [address] MCH (RBC) [Entitic mass] 32.9 pg Normal 27-34 [facility] Comment on above: Performed By: #### C MP, CBCA #### [facility] ([id number]) [address] [address] [place] [address] MCHC (RBC) [Mass/Vol] 34.4 g/dL Normal 32-36 [facility] Comment on above: Performed By: #### C MP, CBCA #### [facility] ([id number]) [address], [address] [place] [address] MCV (RBC) [Entitic vol] 96 fL Normal 80-100 [facility] Comment on above: Performed By: #### C MP, CBCA #### [facility] ([id number]) [address] [place] [address] Monocytes (Bld) [#/Vol] 0.6 10*3/uL Normal 0-0.9 [facility] Comment on above: Performed By: #### C MP, CBCA #### [facility] ([id number]) [address], [address] [place] [address] Monocytes/100 WBC (Bld) 9.7 % Normal [facility] Comment on above: Performed By: #### C MP, CBCA #### [facility] ([id number]) [address], [address] [place] [address] Neutrophils/100 WBC (Bld) 69.2 % Normal [facility] Comment on above: Performed By: #### C MP, CBCA #### [facility] ([id number]) [address] [place] [address] Platelet mean volume (Bld) [Entitic vol] 9.7 fL Normal 7-12 [facility] Comment on above: Performed By: #### C MP, CBCA #### [facility] ([id number]) [address], [address] [place] [address] Platelets (Bld) [#/Vol] 290 10*3/uL Normal 150-450 [facility] Comment on above: Performed By: #### C MP, CBCA #### [facility] ([id number]) [address] [address] [place] [address] RBC COUNT 4.11 X10E12/L Normal 3.80-5.20 [facility] Comment on above: Performed By: #### C MP, CBCA #### [facility] ([id number]) [address], [address] [place] [address] WBC (Bld) [#/Vol] 6.7 10*3/uL Normal 4.0-11.0 [facility] Comment on above: Performed By: #### C LARA, CBCA #### [facility] ([id number]) [address], [address] [place] [address] COMPREHENSIVE METABOLIC PANE Henry 05-03-2024 Albumin [Mass/Vol] 3.6 g/dL Normal 3.2-5.3 [facility] Comment on above: Performed By: #### C LARA, CBCA #### [facility] ([id number]) [address], [address] [place] [address] ALP [Catalytic activity/Vol] 80 U/L Normal 39-130 [facility] Comment on above: Performed By: #### C LARA, CBCA #### [facility] ([id number]) [address], [address] [place] [address] ALT [Catalytic activity/Vol] 12 U/L Normal 0-31 [facility] Comment on above: Performed By: #### C LARA, CBCA #### [facility] ([id number]) [address], [address] [place] [address] Anion gap [Moles/Vol] 14 mmol/L Normal 5-15 [facility] Comment on above: Performed By: #### C LARA CBCA #### [facility] ([id number]) [address], [address] [place] [address] AST [Catalytic activity/Vol] 29 U/L Normal 0-41 [facility] Comment on above: Performed By: #### C LARA, CBCA #### [facility] ([id number]) [address], [address] [place] [address] Bilirubin [Mass/Vol] 0.5 mg/dL Normal 0.3-1.2 [facility] Comment on above: Performed By: #### C YENNIFER BERMUDEZ #### [facility] ([id number]) [address], [address] [place] [address] Calcium [Mass/Vol] 9.1 mg/dL Normal 8.5-10.5 [facility] Comment on above: Performed By: #### C LARA CBCA #### [facility] ([id number]) [address], [facility] [address] [place] [address] Chloride [Moles/Vol] 106 mmol/L Normal 98-109 [facility] Comment on above: Performed By: #### C YENNIFER BERMUDEZ #### [facility] ([id number]) [address] [address] [place] [address] CO2 [Moles/Vol] 20 mmol/L Low 22-32 [facility] Comment on above: Performed By: #### C YENNIFER BERMUDEZ #### [facility] ([id number]) [address], [facility] [address] [place] [address] Creatinine [Mass/Vol] 0.74 mg/dL Normal 0.40-1.00 [facility] Comment on above: Result Comment: METH OD TRACEABLE TO IDMS STANDARD Performed By: #### C YENNIFER BERMUDEZ #### [facility] ([id number]) [address] [address] [place] [address] GFR/1.73 sq M.predicted among non-blacks MDRD (S/P/Bld) [Vol rate/Area] 80 mL/min/{1.73_m2} Normal >59 [facility] Comment on above: Result Comment: Reported eGFR is based on the CKD-EPI 2020 equation that does not use a race coefficient. Performed By: #### C LARA CBCBenjie #### [facility] ([id number]) [address] [address] [place] [address] Glucose [Mass/Vol] 117 mg/dL High 65-99 [facility] Comment on above: Performed By: #### C LARA, CBCA #### [facility] ([id number]) [address], [facility] [place] [address] Potassium [Moles/Vol] 3.6 mmol/L Normal 3.5-5.0 [facility] Comment on above: Performed By: #### C LARA, CBCA #### [facility] ([id number]) [address], [facility] [address] [place] [address] Protein [Mass/Vol] 6.4 g/dL Normal 6.0-8.0 [facility] Comment on above: Performed By: #### C LARA, CBCA #### [facility] ([id number]) [address], [facility] [address] [place] [address] Sodium [Moles/Vol] 140 mmol/L Normal 134-146 [facility] Comment on above: Performed By: #### C LARA, CBCA #### [facility] ([id number]) [address], [facility] [address] [place] [address] Urea nitrogen [Mass/Vol] 17 mg/dL Normal 5-27 [facility] Comment on above: Performed By: #### C LARA, CBCA #### [facility] ([id number]) [address] [place] [address] POCT EKGon 04-19-2024 [facility] CBC AND AUTO DIFFon 04-12-19 25 ABSOLUTE BASOPHIL 0.1 X10E9/L Normal 0.0-0.2 [facility] Comment on above: Performed By: #### C MP, CBCA #### [facility] ([id number]) [address] [address] [place] [address] ABSOLUTE NEUTROPHIL 4.4 X10E9/L Normal 1.5-6.6 [facility] Comment on above: Performed By: #### C MP, CBCA #### [facility] ([id number]) [address], [address] [place] [address] Basophils/100 WBC (Bld) 2.1 % Normal [facility] Comment on above: Performed By: #### C MP, CBCA #### [facility] ([id number]) [address] [place] [address] Eosinophils (Bld) [#/Vol] 0.2 10*3/uL Normal 0.0-0.4 [facility] Comment on above: Performed By: #### C MP, CBCA #### [facility] ([id number]) [address] [address] [place] [address] Eosinophils/100 WBC (Bld) 3.0 % Normal [facility] Comment on above: Performed By: #### C MP, CBCA #### [facility] ([id number]) [address] [address] [place] [address] Erythrocyte distribution width (RBC) [Ratio] 14.1 % Normal 11.5-15.0 [facility] Comment on above: Performed By: #### C MP, CBCA #### [facility] ([id number]) [address] [address] [place] [address] Hematocrit (Bld) [Volume fraction] 37.9 % Normal 35-47 [facility] Comment on above: Performed By: #### C MP, CBCA #### [facility] ([id number]) [address] [address] [place] [address] Hemoglobin (Bld) [Mass/Vol] 12.8 g/dL Normal 11.7-15.5 [facility] Comment on above: Performed By: #### C MP, CBCA #### [facility] ([id number]) [address] [place] [address] Lymphocytes (Bld) [#/Vol] 1.0 10*3/uL Normal 1.0-3.5 [facility] Comment on above: Performed By: #### C MP, CBCA #### [facility] ([id number]) [address], [facility] [address] [place] [address] Lymphocytes/100 WBC (Bld) 15.9 % Normal [facility] Comment on above: Performed By: #### C MP, CBCA #### [facility] ([id number]) [address] [address] [place] [address] MCH (RBC) [Entitic mass] 32.2 pg Normal 27-34 [facility] Comment on above: Performed By: #### C LARA, CBCA #### [facility] ([id number]) [address] [address] [place] [address] MCHC (RBC) [Mass/Vol] 33.7 g/dL Normal 32-36 [facility] Comment on above: Performed By: #### C LARA, CBCA #### [facility] ([id number]) [address] [address] [place] [address] MCV (RBC) [Entitic vol] 96 fL Normal 80-100 [facility] Comment on above: Performed By: #### C MP, CBCA #### [facility] ([id number]) [address] [address] [place] [address] Monocytes (Bld) [#/Vol] 0.7 10*3/uL Normal 0-0.9 [facility] Comment on above: Performed By: #### C MP, CBCA #### [facility] ([id number]) [address] [address] [place] [address] Monocytes/100 WBC (Bld) 10.9 % Normal [facility] Comment on above: Performed By: #### C MP, CBCA #### [facility] ([id number]) [address], [address] [place] [address] Neutrophils/100 WBC (Bld) 68.1 % Normal [facility] Comment on above: Performed By: #### C MP, CBCA #### [facility] ([id number]) [address], [address] [place] [address] Platelet mean volume (Bld) [Entitic vol] 9.0 fL Normal 7-12 [facility] Comment on above: Performed By: #### C MP, CBCA #### [facility] ([id number]) [address] [address] [place] [address] Platelets (Bld) [#/Vol] 300 10*3/uL Normal 150-450 [facility] Comment on above: Performed By: #### C MP, CBCA #### [facility] ([id number]) [address], [address] [place] [address] RBC COUNT 3.97 X10E12/L Normal 3.80-5.20 [facility] Comment on above: Performed By: #### C MP, CBCA #### [facility] ([id number]) [address] [address] [place] [address] WBC (Bld) [#/Vol] 6.5 10*3/uL Normal 4.0-11.0 [facility] Comment on above: Performed By: #### C MP, CBCA #### [facility] ([id number]) [address], [address] [place] [address] COMPREHENSIVE METABOLIC PANE Henry 04-12-2024 Albumin [Mass/Vol] 3.6 g/dL Normal 3.2-5.3 [facility] Comment on above: Performed By: #### C MP, CBCA #### [facility] ([id number]) [address], [address] [place] [address] ALP [Catalytic activity/Vol] 79 U/L Normal 39-130 [facility] Comment on above: Performed By: #### C LARA CBCA #### [facility] ([id number]) [address], [address] [place] [address] ALT [Catalytic activity/Vol] 15 U/L Normal 0-31 [facility] Comment on above: Performed By: #### C LARA CBCA #### [facility] ([id number]) [address] [place] [address] Anion gap [Moles/Vol] 10 mmol/L Normal 5-15 [facility] Comment on above: Performed By: #### C LARA CBCA #### [facility] ([id number]) [address] [place] [address] AST [Catalytic activity/Vol] 26 U/L Normal 0-41 [facility] Comment on above: Performed By: #### C LARA CBCA #### [facility] ([id number]) [address], [address] [place] [address] Bilirubin [Mass/Vol] 0.4 mg/dL Normal 0.3-1.2 [facility] Comment on above: Performed By: #### C LARA CBCA #### [facility] ([id number]) [address], [address] [place] [address] Calcium [Mass/Vol] 9.4 mg/dL Normal 8.5-10.5 [facility] Comment on above: Performed By: #### C LARA CBCA #### [facility] ([id number]) [address] [place] [address] Chloride [Moles/Vol] 106 mmol/L Normal 98-109 [facility] Comment on above: Performed By: #### C LARA CBCA #### [facility] ([id number]) [address] [place] [address] CO2 [Moles/Vol] 23 mmol/L Normal 22-32 [facility] Comment on above: Performed By: #### C YENNIFER BERMUDEZ #### [facility] ([id number]) [address], [address] [place] [address] Creatinine [Mass/Vol] 0.72 mg/dL Normal 0.40-1.00 [facility] Comment on above: Result Comment: METH OD TRACEABLE TO IDMS STANDARD Performed By: #### C YENNIFER BERMUDEZ #### [facility] ([id number]) [address] [place] [address] GFR/1.73 sq M.predicted among non-blacks MDRD (S/P/Bld) [Vol rate/Area] 82 mL/min/{1.73_m2} Normal >59 [facility] Comment on above: Result Comment: Reported eGFR is based on the CKD-EPI 2020 equation that does not use a race coefficient. Performed By: #### C YENNIFER BERMUDEZ #### [facility] ([id number]) [address] [place] [address] Glucose [Mass/Vol] 117 mg/dL High 65-99 [facility] Comment on above: Performed By: #### C YENNIFER BERMUDEZ #### [facility] ([id number]) [address] [address] [place] [address] Potassium [Moles/Vol] 3.7 mmol/L Normal 3.5-5.0 [facility] Comment on above: Performed By: #### YENNIFER Bonner MP #### [facility] ([id number]) [address] [place] [address] Protein [Mass/Vol] 6.1 g/dL Normal 6.0-8.0 [facility] Comment on above: Performed By: #### C SIERRA BERMUDEZA #### [facility] ([id number]) [address] [address] [place] [address] Sodium [Moles/Vol] 139 mmol/L Normal 134-146 [facility] Comment on above: Performed By: #### C MP, CBCA #### [facility] ([id number]) [address] [address] Urea nitrogen [Mass/Vol] 22 mg/dL Normal 5-27 [facility] Comment on above: Performed By: #### C LARA, CBCA #### [facility] ([id number]) [address] [address] ESR Photometric method (Bld) [Velocity]on 04-12-2024 ESR, ERYTHROCYTE SEDIMENTATION RATE 14 mm/h Normal 0-30 [facility] Comment on above: Performed By: #### C LARA, CBCA #### [facility] ([id number]) [address] [address] LIVER PANELon 04-12-2024 Bilirubin.direct [Mass/Vol] 0.1 mg/dL Normal 0.0-0.4 [facility] Comment on above: Performed By: #### C LARA, CBCA #### [facility] ([id number]) [address] [address] CBC AND AUTO DIFFon 1217-20 24 ABSOLUTE BASOPHIL 0.1 X10E9/L Normal 0.0-0.2 [facility] Comment on above: Performed By: #### C MP, CBCA #### [facility] ([id number]) [address] [address] ABSOLUTE NEUTROPHIL 3.7 X10E9/L Normal 1.5-6.6 [facility] Comment on above: Performed By: #### C LARA, CBCA #### [facility] ([id number]) [address] [place] [address] Basophils/100 WBC (Bld) 2.2 % Normal [facility] Comment on above: Performed By: #### C MP, CBCA #### [facility] ([id number]) [address] [place] [address] Eosinophils (Bld) [#/Vol] 0.2 10*3/uL Normal 0.0-0.4 [facility] Comment on above: Performed By: #### C MP, CBCA #### [facility] ([id number]) [address], [facility] [address] [place] [address] Eosinophils/100 WBC (Bld) 3.8 % Normal [facility] Comment on above: Performed By: #### C MP, CBCA #### [facility] ([id number]) [address] [address] [place] [address] Erythrocyte distribution width (RBC) [Ratio] 13.9 % Normal 11.5-15.0 [facility] Comment on above: Performed By: #### C LARA, CBCA #### [facility] ([id number]) [address] [address] [place] [address] Hematocrit (Bld) [Volume fraction] 37.3 % Normal 35-47 [facility] Comment on above: Performed By: #### C MP, CBCA #### [facility] ([id number]) [address] [address] [place] [address] Hemoglobin (Bld) [Mass/Vol] 12.5 g/dL Normal 11.7-15.5 [facility] Comment on above: Performed By: #### C MP, CBCA #### [facility] ([id number]) [address] [address] [place] [address] Lymphocytes (Bld) [#/Vol] 1.0 10*3/uL Normal 1.0-3.5 [facility] Comment on above: Performed By: #### C MP, CBCA #### [facility] ([id number]) [address] [place] [address] Lymphocytes/100 WBC (Bld) 17.6 % Normal [facility] Comment on above: Performed By: #### C MP, CBCA #### [facility] ([id number]) [address] [place] [address] MCH (RBC) [Entitic mass] 32.0 pg Normal 27-34 [facility] Comment on above: Performed By: #### C MP, CBCA #### [facility] ([id number]) [address], [address] [place] [address] MCHC (RBC) [Mass/Vol] 33.4 g/dL Normal 32-36 [facility] Comment on above: Performed By: #### C MP, CBCA #### [facility] ([id number]) [address], [address] [place] [address] MCV (RBC) [Entitic vol] 96 fL Normal 80-100 [facility] Comment on above: Performed By: #### C MP, CBCA #### [facility] ([id number]) [address] [place] [address] Monocytes (Bld) [#/Vol] 0.8 10*3/uL Normal 0-0.9 [facility] Comment on above: Performed By: #### C MP, CBCA #### [facility] ([id number]) [address], [address] [place] [address] Monocytes/100 WBC (Bld) 13.0 % Normal [facility] Comment on above: Performed By: #### C MP, CBCA #### [facility] ([id number]) [address], [address] [place] [address] Neutrophils/100 WBC (Bld) 63.4 % Normal [facility] Comment on above: Performed By: #### C LARA, CBCA #### [facility] ([id number]) [address], [address] [place] [address] Platelet mean volume (Bld) [Entitic vol] 9.1 fL Normal 7-12 [facility] Comment on above: Performed By: #### C LARA, CBCA #### [facility] ([id number]) [address] [place] [address] Platelets (Bld) [#/Vol] 290 10*3/uL Normal 150-450 [facility] Comment on above: Performed By: #### C LARA, CBCA #### [facility] ([id number]) [address] [place] [address] RBC COUNT 3.90 X10E12/L Normal 3.80-5.20 [facility] Comment on above: Performed By: #### C LARA, CBCA #### [facility] ([id number]) [address], [address] [place] [address] WBC (Bld) [#/Vol] 5.8 10*3/uL Normal 4.0-11.0 [facility] Comment on above: Performed By: #### C LARA CBCA #### [facility] ([id number]) [address], [address] [place] [address] COMPREHENSIVE METABOLIC PANE Henry 03-22-2024 Albumin [Mass/Vol] 3.6 g/dL Normal 3.2-5.3 [facility] Comment on above: Performed By: #### C LARA, CBCA #### [facility] ([id number]) [address], [address] [place] [address] ALP [Catalytic activity/Vol] 99 U/L Normal 39-130 [facility] Comment on above: Performed By: #### C LARA, CBCA #### [facility] ([id number]) [address] [place] [address] ALT [Catalytic activity/Vol] 14 U/L Normal 0-31 [facility] Comment on above: Performed By: #### C MP, CBCA #### [facility] ([id number]) [address], [address] [place] [address] Anion gap [Moles/Vol] 10 mmol/L Normal 5-15 [facility] Comment on above: Performed By: #### C LARA, CBCA #### [facility] ([id number]) [address], [address] [place] [address] AST [Catalytic activity/Vol] 31 U/L Normal 0-41 [facility] Comment on above: Performed By: #### C LARA CBCA #### [facility] ([id number]) [address], [address] [place] [address] Bilirubin [Mass/Vol] 0.5 mg/dL Normal 0.3-1.2 [facility] Comment on above: Performed By: #### C LARA, CBCA #### [facility] ([id number]) [address], [address] [place] [address] Calcium [Mass/Vol] 9.4 mg/dL Normal 8.5-10.5 [facility] Comment on above: Performed By: #### C LARA, CBCA #### [facility] ([id number]) [address], [address] [place] [address] Chloride [Moles/Vol] 106 mmol/L Normal 98-109 [facility] Comment on above: Performed By: #### C LARA, CBCA #### [facility] ([id number]) [address] [place] [address] CO2 [Moles/Vol] 24 mmol/L Normal 22-32 [facility] Comment on above: Performed By: #### C YENNIFER BERMUDEZ #### [facility] ([id number]) [address] [place] [address] Creatinine [Mass/Vol] 0.78 mg/dL Normal 0.40-1.00 [facility] Comment on above: Result Comment: METH OD TRACEABLE TO IDMS STANDARD Performed By: #### C YENNIFER BERMUDEZ #### [facility] ([id number]) [address], [address] [place] [address] GFR/1.73 sq M.predicted among non-blacks MDRD (S/P/Bld) [Vol rate/Area] 75 mL/min/{1.73_m2} Normal >59 [facility] Comment on above: Result Comment: Reported eGFR is based on the CKD-EPI 2020 equation that does not use a race coefficient. Performed By: #### C YENNIFER BERMUDEZ #### [facility] ([id number]) [address] [place] [address] Glucose [Mass/Vol] 97 mg/dL Normal 65-99 [facility] Comment on above: Performed By: #### C YENNIFER BERMUDEZ #### [facility] ([id number]) [address] [address] [place] [address] Potassium [Moles/Vol] 3.4 mmol/L Low 3.5-5.0 [facility] Comment on above: Performed By: #### C YENNIFER BERMUDEZ #### [facility] ([id number]) [address] [place] [address] Protein [Mass/Vol] 6.2 g/dL Normal 6.0-8.0 [facility] Comment on above: Performed By: #### C YENNIFER BERMUDEZ #### [facility] ([id number]) [address] [place] [address] Sodium [Moles/Vol] 140 mmol/L Normal 134-146 [facility] Comment on above: Performed By: #### C MP, CBCA #### [facility] ([id number]) [address] [place] [address] Urea nitrogen [Mass/Vol] 15 mg/dL Normal 5-27 [facility] Comment on above: Performed By: #### C MP, CBCA #### [facility] ([id number]) [address] [place] [address] C-Reactive Proteinon 024 CRP [Mass/Vol] mg/L Normal 0.0-0.5 [facility] Comment on above: Result Comment: PERF ORMED BY: [place] [address] PATHOLOGIST SEC[employer]LER AUSTIN PRETTY M.D. Performed By: #### C UU, CRP, ESR, ADDONUAPLUS #### [address] #### C4, C3 #### [facility] , Complement C3on 03-16-2024 Complement C3 139 mg/dL Normal 82-167 [facility] Comment on above: Result Comment: Perf ormed at: - [facility] [address] [id number] [employer] Machine Operator: Guanaco Cui PhD, Phone: [phone] Performed By: #### C UU, CRP, ESR, ADDONUAPLUS #### [address] #### C4, C3 #### [facility] , Complement C4on 03-16-2024 Complement C4 38 mg/dL Normal 12-38 [facility] Comment on above: Result Comment: PERF ORMED BY: [place] [address] PATHOLOGIST SEC[employer]LER AUSTIN PRETTY M.D. Performed By: #### C UU, CRP, ESR, ADDONUAPLUS #### [address] #### C4, C3 #### [facility] , Dipstick and Microscopicon 1 05-17-2023 Appearance (U) Cloudy Critically abnormal Clear [facility] Comment on above: Order Comment: Name Collection Type:: Clean-Voided Midstream Performed By: #### C UU, CRP, ESR, ADDONUAPLUS #### [address] #### C4, C3 #### [facility] , Bacteria,Urine 3+ High None Seen [facility] Comment on above: Order Comment: Name Collection Type:: Clean-Voided Midstream Performed By: #### C UU, CRP, ESR, ADDONUAPLUS #### [address] #### C4, C3 #### [facility] , Bilirubin,Urine Negative Normal Negative [facility] Comment on above: Order Comment: Name Collection Type:: Clean-Voided Midstream Performed By: #### C UU, CRP, ESR, ADDONUAPLUS #### [address] #### C4, C3 #### [facility] , Calcium Oxalate Crystals,Urine 3+ Normal [facility] Comment on above: Order Comment: Name Collection Type:: Clean-Voided Midstream Performed By: #### C UU, CRP, ESR, ADDONUAPLUS #### [address] #### C4, C3 #### [facility] , Color (U) Yellow Normal Yellow [facility] Comment on above: Order Comment: Name Collection Type:: Clean-Voided Midstream Performed By: #### C UU, CRP, ESR, ADDONUAPLUS #### [address] #### C4, C3 #### [facility] , Glucose Ql (U) Normal Normal Normal [facility] Comment on above: Order Comment: Name Collection Type:: Clean-Voided Midstream Performed By: #### C UU, CRP, ESR, ADDONUAPLUS #### [address] #### C4, C3 #### [facility] , Hyaline Casts,Urine 9 [LPF] High 0-8 [facility] Comment on above: Order Comment: Name Collection Type:: Clean-Voided Midstream Performed By: #### C UU, CRP, ESR, ADDONUAPLUS #### [address] #### C4, C3 #### [facility] , Ketones Ql (U) Negative Normal Negative [facility] Comment on above: Order Comment: Name Collection Type:: Clean-Voided Midstream Performed By: #### C UU, CRP, ESR, ADDONUAPLUS #### [address] #### C4, C3 #### [facility] , Leukocyte esterase Test strip Ql (U) 4+ High Negative [facility] Comment on above: Order Comment: Name Collection Type:: Clean-Voided Midstream Performed By: #### C UU, CRP, ESR, ADDONUAPLUS #### [address] #### C4, C3 #### [facility] , Mucus,Urine 2+ Critically abnormal [facility] Comment on above: Order Comment: Name Collection Type:: Clean-Voided Midstream Result Comment: PERF ORMED BY: [place] [address] PATHOLOGIST SEC[employer]LER AUSTIN PRETTY M.D. Performed By: #### C UU, CRP, ESR, ADDONUAPLUS #### [address] #### C4, C3 #### [facility] , Nitrite,Urine Negative Normal Negative [facility] Comment on above: Order Comment: Name Collection Type:: Clean-Voided Midstream Performed By: #### C UU, CRP, ESR, ADDONUAPLUS #### [address] #### C4, C3 #### [facility] , Non-Squamous Epithelial Cell,U 1 [HPF] High None Seen [facility] Comment on above: Order Comment: Name Collection Type:: Clean-Voided Midstream Performed By: #### C UU, CRP, ESR, ADDONUAPLUS #### [address] #### C4, C3 #### [facility] , Occult Blood,Urine Negative Normal Negative [facility] Comment on above: Order Comment: Name Collection Type:: Clean-Voided Midstream Performed By: #### C UU, CRP, ESR, ADDONUAPLUS #### [address] #### C4, C3 #### [facility] , pH (U) 5.5 [pH] Normal 5.0-9.0 [facility] Comment on above: Order Comment: Name Collection Type:: Clean-Voided Midstream Performed By: #### C UU, CRP, ESR, ADDONUAPLUS #### [place] [address] [place] #### C4, C3 #### [facility] , Protein (U) [Mass/Vol] 20 mg/dL High Negative [facility] Comment on above: Order Comment: Name Collection Type:: Clean-Voided Midstream Performed By: #### C UU, CRP, ESR, ADDONUAPLUS #### [address] #### C4, C3 #### [facility] , RBC,Urine 5 [HPF] High 0-4 [facility] Comment on above: Order Comment: Name Collection Type:: Clean-Voided Midstream Performed By: #### C UU, CRP, ESR, ADDONUAPLUS #### [address] #### C4, C3 #### [facility] , Specificy [place],Urine 1.023 Normal 1.001-1.030 [facility] Comment on above: Order Comment: Name Collection Type:: Clean-Voided Midstream Performed By: #### C UU, CRP, ESR, ADDONUAPLUS #### [address] #### C4, C3 #### [facility] , Squamous Epithelial Cell,Urine 1 [HPF] Normal 0-2 [facility] Comment on above: Order Comment: Name Collection Type:: Clean-Voided Midstream Performed By: #### C UU, CRP, ESR, ADDONUAPLUS #### [address] #### C4, C3 #### [facility] , Urobilinogen,Urine Normal Normal Normal [facility] Comment on above: Order Comment: Name Collection Type:: Clean-Voided Midstream Performed By: #### C UU, CRP, ESR, ADDONUAPLUS #### [address] #### C4, C3 #### [facility] , WBC [place], Urine Many High None Seen [facility] Comment on above: Order Comment: Name Collection Type:: Clean-Voided Midstream Performed By: #### C UU, CRP, ESR, ADDONUAPLUS #### [address] #### C4, C3 #### [facility] , WBC,Urine Innumerable High 0-4 [facility] Comment on above: Order Comment: Name Collection Type:: Clean-Voided Midstream Performed By: #### C UU, CRP, ESR, ADDONUAPLUS #### [address] #### C4, C3 #### [facility] , Erythrocyte Sedimentation Ra sarah 03-16-2024 ESR (Bld) [Velocity] 15 mm/h Normal 0-29 [facility] Comment on above: Result Comment: PERF ORMED BY: [place] [address] PATHOLOGIST SEC[employer] BUTLER AUSTIN PRETTY M.D. Performed By: #### C UU, CRP, ESR, ADDONUAPLUS #### [address] #### C4, C3 #### [facility] , Urine Cultureon 03-16-2024 Bacteria identified Cx Nom (U) Urine Culture Results >100,000 col/ml Mixed Bacterial Skin Contaminants 2 Days PERFORMED BY: [place] [address] PATHOLOGIST SEC[employer] BUTLER AUSTIN PRETTY M.D. Normal [facility] Comment on above: Performed By: #### C UU, CRP, ESR, ADDONUAPLUS #### [address] #### C4, C3 #### [facility] , CBC AND AUTO DIFFon 03-01-20 ABSOLUTE BASOPHIL 0.1 X10E9/L Normal 0.0-0.2 [facility] Comment on above: Performed By: #### C BCA, CMP #### [facility] ([id number]) [address] [facility] [place] [address] ABSOLUTE NEUTROPHIL 3.3 X10E9/L Normal 1.5-6.6 [facility] Comment on above: Performed By: #### C MALI, CMP #### [facility] ([id number]) [address] [place] [address] Basophils/100 WBC (Bld) 2.6 % Normal [facility] Comment on above: Performed By: #### C BCA, CMP #### [facility] ([id number]) [address] [address] [place] [address] Eosinophils (Bld) [#/Vol] 0.2 10*3/uL Normal 0.0-0.4 [facility] Comment on above: Performed By: #### C MALI, CMP #### [facility] ([id number]) [address] [address] [place] [address] Eosinophils/100 WBC (Bld) 4.1 % Normal [facility] Comment on above: Performed By: #### C MALI, CMP #### [facility] ([id number]) [address], [facility] [address] [place] [address] Erythrocyte distribution width (RBC) [Ratio] 13.1 % Normal 11.5-15.0 [facility] Comment on above: Performed By: #### C MALI, CMP #### [facility] ([id number]) [address] [address] [place] [address] Hematocrit (Bld) [Volume fraction] 40.4 % Normal 35-47 [facility] Comment on above: Performed By: #### C BCA, CMP #### [facility] ([id number]) [address] [address] [place] [address] Hemoglobin (Bld) [Mass/Vol] 13.6 g/dL Normal 11.7-15.5 [facility] Comment on above: Performed By: #### C BCA, CMP #### [facility] ([id number]) [address] [place] [address] Lymphocytes (Bld) [#/Vol] 1.1 10*3/uL Normal 1.0-3.5 [facility] Comment on above: Performed By: #### C BCA, CMP #### [facility] ([id number]) [address] [place] [address] Lymphocytes/100 WBC (Bld) 20.1 % Normal [facility] Comment on above: Performed By: #### C BCA, CMP #### [facility] ([id number]) [address] [address] [place] [address] MCH (RBC) [Entitic mass] 32.1 pg Normal 27-34 [facility] Comment on above: Performed By: #### C BCA, CMP #### [facility] ([id number]) [address] [address] [place] [address] MCHC (RBC) [Mass/Vol] 33.6 g/dL Normal 32-36 [facility] Comment on above: Performed By: #### C BCA, CMP #### [facility] ([id number]) [address] [place] [address] MCV (RBC) [Entitic vol] 96 fL Normal 80-100 [facility] Comment on above: Performed By: #### C BCA, CMP #### [facility] ([id number]) [address] [address] [place] [address] Monocytes (Bld) [#/Vol] 0.7 10*3/uL Normal 0-0.9 [facility] Comment on above: Performed By: #### C BCA, CMP #### [facility] ([id number]) [address] [address] [place] [address] Monocytes/100 WBC (Bld) 12.4 % Normal [facility] Comment on above: Performed By: #### C BCA, CMP #### [facility] ([id number]) [address] [place] [address] Neutrophils/100 WBC (Bld) 60.8 % Normal [facility] Comment on above: Performed By: #### C BCA, CMP #### [facility] ([id number]) [address] [place] [address] Platelet mean volume (Bld) [Entitic vol] 9.8 fL Normal 7-12 [facility] Comment on above: Performed By: #### C BCA, CMP #### [facility] ([id number]) [address] [place] [address] Platelets (Bld) [#/Vol] 279 10*3/uL Normal 150-450 [facility] Comment on above: Performed By: #### C BCA, CMP #### [facility] ([id number]) [address] [place] [address] RBC COUNT 4.22 X10E12/L Normal 3.80-5.20 [facility] Comment on above: Performed By: #### C BCA, CMP #### [facility] ([id number]) [address] [place] [address] WBC (Bld) [#/Vol] 5.4 10*3/uL Normal 4.0-11.0 [facility] Comment on above: Performed By: #### C BCA, CMP #### [facility] ([id number]) [address] [place] [address] COMPREHENSIVE METABOLIC PANE Henry 03-01-2024 Albumin [Mass/Vol] 3.9 g/dL Normal 3.2-5.3 [facility] Comment on above: Performed By: #### C BCA, CMP #### [facility] ([id number]) [address] [place] [address] ALP [Catalytic activity/Vol] 84 U/L Normal 39-130 [facility] Comment on above: Performed By: #### C BCA, CMP #### [facility] ([id number]) [address] [place] [address] ALT [Catalytic activity/Vol] 20 U/L Normal 0-31 [facility] Comment on above: Performed By: #### C BCA, CMP #### [facility] ([id number]) [address] [place] [address] Anion gap [Moles/Vol] 11 mmol/L Normal 5-15 [facility] Comment on above: Performed By: #### C BCA, CMP #### [facility] ([id number]) [address] [place] [address] AST [Catalytic activity/Vol] 33 U/L Normal 0-41 [facility] Comment on above: Performed By: #### C BCA, CMP #### [facility] ([id number]) [address] [place] [address] Bilirubin [Mass/Vol] 0.5 mg/dL Normal 0.3-1.2 [facility] Comment on above: Performed By: #### C BCA, CMP #### [facility] ([id number]) [address] [place] [address] Calcium [Mass/Vol] 9.8 mg/dL Normal 8.5-10.5 [facility] Comment on above: Performed By: #### C BCA, CMP #### [facility] ([id number]) [address] [place] [address] Chloride [Moles/Vol] 105 mmol/L Normal 98-109 [facility] Comment on above: Performed By: #### C BCA, CMP #### [facility] ([id number]) [address] [place] [address] CO2 [Moles/Vol] 27 mmol/L Normal 22-32 [facility] Comment on above: Performed By: #### C BCA, CMP #### [facility] ([id number]) [address] [place] [address] Creatinine [Mass/Vol] 0.88 mg/dL Normal 0.40-1.00 [facility] Comment on above: Result Comment: METH OD TRACEABLE TO IDMS STANDARD Performed By: #### C BCA, CMP #### [facility] ([id number]) [address] [place] [address] GFR/1.73 sq M.predicted among non-blacks MDRD (S/P/Bld) [Vol rate/Area] 65 mL/min/{1.73_m2} Normal >59 [facility] Comment on above: Result Comment: Reported eGFR is based on the CKD-EPI 2020 equation that does not use a race coefficient. Performed By: #### C BCA, CMP #### [facility] ([id number]) [address] [place] [address] Glucose [Mass/Vol] 120 mg/dL High 65-99 [facility] Comment on above: Performed By: #### C BCA, CMP #### [facility] ([id number]) [address] [address] [place] [address] Potassium [Moles/Vol] 3.5 mmol/L Normal 3.5-5.0 [facility] Comment on above: Performed By: #### C BCA, CMP #### [facility] ([id number]) [address] [place] [address] Protein [Mass/Vol] 6.6 g/dL Normal 6.0-8.0 [facility] Comment on above: Performed By: #### C BCA, CMP #### [facility] ([id number]) [address] [place] [address] Sodium [Moles/Vol] 143 mmol/L Normal 134-146 [facility] Comment on above: Performed By: #### C BCA, CMP #### [facility] ([id number]) [address] [address] [place] [address] Urea nitrogen [Mass/Vol] 16 mg/dL Normal 5-27 [facility] Comment on above: Performed By: #### C BCA, CMP #### [facility] ([id number]) [address] [address] [place] [address] CBC AND AUTO DIFFon 02-09-20 24 ABSOLUTE BASOPHIL 0.1 X10E9/L Normal 0.0-0.2 [facility] Comment on above: Performed By: #### C BCA, CMP, LIVR, 89721-5 #### [facility] ([id number]) [address] [address] [place] [address] ABSOLUTE NEUTROPHIL 4.7 X10E9/L Normal 1.5-6.6 [facility] Comment on above: Performed By: #### C BCA, CMP, LIVR, 92146-3 #### [facility] ([id number]) [address] [address] [place] [address] Basophils/100 WBC (Bld) 1.3 % Normal [facility] Comment on above: Performed By: #### C BCA, CMP, LIVR, 48861-0 #### [facility] ([id number]) [address] [address] [place] [address] Eosinophils (Bld) [#/Vol] 0.4 10*3/uL Normal 0.0-0.4 [facility] Comment on above: Performed By: #### C BCA, CMP, LIVR, 62900-0 #### [facility] ([id number]) [address] [place] [address] Eosinophils/100 WBC (Bld) 5.4 % Normal [facility] Comment on above: Performed By: #### C BCA, CMP, LIVR, 40687-3 #### [facility] ([id number]) [address] [address] [place] [address] Erythrocyte distribution width (RBC) [Ratio] 13.3 % Normal 11.5-15.0 [facility] Comment on above: Performed By: #### C BCA, CMP, LIVR, 04120-3 #### [facility] ([id number]) [address] [address] [place] [address] Hematocrit (Bld) [Volume fraction] 39.1 % Normal 35-47 [facility] Comment on above: Performed By: #### C BCA, CMP, LIVR, 46309-5 #### [facility] ([id number]) [address] [address] [place] [address] Hemoglobin (Bld) [Mass/Vol] 13.1 g/dL Normal 11.7-15.5 [facility] Comment on above: Performed By: #### C BCA, CMP, LIVR, 22309-7 #### [facility] ([id number]) [address] [address] [place] [address] Lymphocytes (Bld) [#/Vol] 1.2 10*3/uL Normal 1.0-3.5 [facility] Comment on above: Performed By: #### C BCA, CMP, LIVR, 68799-3 #### [facility] ([id number]) [address] [address] [place] [address] Lymphocytes/100 WBC (Bld) 16.5 % Normal [facility] Comment on above: Performed By: #### C BCA, CMP, LIVR, 52942-3 #### [facility] ([id number]) [address] [address] [place] [address] MCH (RBC) [Entitic mass] 32.1 pg Normal 27-34 [facility] Comment on above: Performed By: #### C BCA, CMP, LIVR, 51921-4 #### [facility] ([id number]) [address] [facility] [place] [address] [place] [address] MCHC (RBC) [Mass/Vol] 33.4 g/dL Normal 32-36 [facility] Comment on above: Performed By: #### C BCA, CMP, LIVR, 81111-1 #### [facility] ([id number]) [address] [address] [place] [address] MCV (RBC) [Entitic vol] 96 fL Normal 80-100 [facility] Comment on above: Performed By: #### C BCA, CMP, LIVR, 19381-4 #### [facility] ([id number]) [address] [address] [place] [address] Monocytes (Bld) [#/Vol] 0.7 10*3/uL Normal 0-0.9 [facility] Comment on above: Performed By: #### C BCA, CMP, LIVR, 80099-8 #### [facility] ([id number]) [address] [address] [place] [address] Monocytes/100 WBC (Bld) 10.3 % Normal [facility] Comment on above: Performed By: #### C BCA, CMP, LIVR, 82703-8 #### [facility] ([id number]) [address] [address] [place] [address] Neutrophils/100 WBC (Bld) 66.5 % Normal [facility] Comment on above: Performed By: #### C BCA, CMP, LIVR, 45492-6 #### [facility] ([id number]) [address] [place] [address] Platelet mean volume (Bld) [Entitic vol] 9.3 fL Normal 7-12 [facility] Comment on above: Performed By: #### C BCA, CMP, LIVR, 34049-9 #### [facility] ([id number]) [address] [address] [place] [address] Platelets (Bld) [#/Vol] 253 10*3/uL Normal 150-450 [facility] Comment on above: Performed By: #### C BCA, CMP, LIVR, 43666-5 #### [facility] ([id number]) [address], [facility] [address] [place] [address] RBC COUNT 4.07 X10E12/L Normal 3.80-5.20 [facility] Comment on above: Performed By: #### C BCA, CMP, LIVR, 99230-7 #### [facility] ([id number]) [address], [facility] [place] [address] [place] [address] WBC (Bld) [#/Vol] 7.1 10*3/uL Normal 4.0-11.0 [facility] Comment on above: Performed By: #### C BCA, CMP, LIVR, 11636-8 #### [facility] ([id number]) [address], [facility] [place] [address] [place] [address] COMPREHENSIVE METABOLIC PANE Henry 02-09-2024 Albumin [Mass/Vol] 3.7 g/dL Normal 3.2-5.3 [facility] Comment on above: Performed By: #### C BCA, CMP, LIVR, 25637-4 #### [facility] ([id number]) [address], [facility] [place] [address] [place] [address] ALP [Catalytic activity/Vol] 77 U/L Normal 39-130 [facility] Comment on above: Performed By: #### C BCA, CMP, LIVR, 74666-9 #### [facility] ([id number]) [address], [address] [place] [address] ALT [Catalytic activity/Vol] 17 U/L Normal 0-31 [facility] Comment on above: Performed By: #### C BCA, CMP, LIVR, 68702-0 #### [facility] ([id number]) [address], [address] [place] [address] Anion gap [Moles/Vol] 12 mmol/L Normal 5-15 [facility] Comment on above: Performed By: #### C BCA, CMP, LIVR, 02899-0 #### [facility] ([id number]) [address] [place] [address] AST [Catalytic activity/Vol] 32 U/L Normal 0-41 [facility] Comment on above: Performed By: #### C BCA, CMP, LIVR, 59357-9 #### [facility] ([id number]) [address], [address] [place] [address] Bilirubin [Mass/Vol] 0.4 mg/dL Normal 0.3-1.2 [facility] Comment on above: Performed By: #### C BCA, CMP, LIVR, 06758-6 #### [facility] ([id number]) [address] [place] [address] Calcium [Mass/Vol] 9.4 mg/dL Normal 8.5-10.5 [facility] Comment on above: Performed By: #### C BCA, CMP, LIVR, 54920-0 #### [facility] ([id number]) [address] [place] [address] Chloride [Moles/Vol] 107 mmol/L Normal 98-109 [facility] Comment on above: Performed By: #### C BCA, CMP, LIVR, 84126-7 #### [facility] ([id number]) [address] [place] [address] CO2 [Moles/Vol] 23 mmol/L Normal 22-32 [facility] Comment on above: Performed By: #### C BCA, CMP, LIVR, 92606-5 #### [facility] ([id number]) [address] [address] [place] [address] Creatinine [Mass/Vol] 0.83 mg/dL Normal 0.40-1.00 [facility] Comment on above: Result Comment: METH OD TRACEABLE TO IDMS STANDARD Performed By: #### C BCA, CMP, LIVR, 82892-4 #### [facility] ([id number]) [address] [address] [place] [address] GFR/1.73 sq M.predicted among non-blacks MDRD (S/P/Bld) [Vol rate/Area] 70 mL/min/{1.73_m2} Normal >59 [facility] Comment on above: Result Comment: Reported eGFR is based on the CKD-EPI 2020 equation that does not use a race coefficient. Performed By: #### C BCA, CMP, LIVR, 55326-0 #### [facility] ([id number]) [address] [address] [place] [address] Glucose [Mass/Vol] 101 mg/dL High 65-99 [facility] Comment on above: Performed By: #### C BCA, CMP, LIVR, 71666-8 #### [facility] ([id number]) [address] [address] [place] [address] Potassium [Moles/Vol] 3.9 mmol/L Normal 3.5-5.0 [facility] Comment on above: Performed By: #### C BCA, CMP, LIVR, 11266-8 #### [facility] ([id number]) [address] [address] [place] [address] Protein [Mass/Vol] 6.2 g/dL Normal 6.0-8.0 [facility] Comment on above: Performed By: #### C BCA, CMP, LIVR, 93697-5 #### [facility] ([id number]) [address], [facility] [place] [address] [place] [address] Sodium [Moles/Vol] 142 mmol/L Normal 134-146 [facility] Comment on above: Performed By: #### C BCA, CMP, LIVR, 37496-4 #### [facility] ([id number]) [address], [facility] [place] [address] [place] [address] Urea nitrogen [Mass/Vol] 15 mg/dL Normal 5-27 [facility] Comment on above: Performed By: #### C BCA, CMP, LIVR, 85216-9 #### [facility] ([id number]) [address], [facility] [address] [place] [address] ESR Photometric method (Bld) [Velocity]on 02-09-2024 ESR, ERYTHROCYTE SEDIMENTATION RATE 11 mm/h Normal 0-30 [facility] Comment on above: Performed By: #### C BCA, CMP, LIVR, 31849-6 #### [facility] ([id number]) [address] [address] [place] [address] LIVER PANELon 02-09-2024 Bilirubin.direct [Mass/Vol] 0.1 mg/dL Normal 0.0-0.4 [facility] Comment on above: Performed By: #### C BCA, CMP, LIVR, 07871-3 #### [facility] ([id number]) [address] [address] CBC AND AUTO DIFFon 10-15-20 24 ABSOLUTE BASOPHIL 0.1 X10E9/L Normal 0.0-0.2 [facility] Comment on above: Performed By: #### C BCA, CMP #### [facility] ([id number]) [address] [place] [address] ABSOLUTE NEUTROPHIL 3.7 X10E9/L Normal 1.5-6.6 [facility] Comment on above: Performed By: #### C MALI, CMP #### [facility] ([id number]) [address] [place] [address] Basophils/100 WBC (Bld) 2.2 % Normal [facility] Comment on above: Performed By: #### C BCA, CMP #### [facility] ([id number]) [address] [address] [place] [address] Eosinophils (Bld) [#/Vol] 0.6 10*3/uL High 0.0-0.4 [facility] Comment on above: Performed By: #### C MALI, CMP #### [facility] ([id number]) [address] [place] [address] Eosinophils/100 WBC (Bld) 10.1 % Normal [facility] Comment on above: Performed By: #### C MALI, CMP #### [facility] ([id number]) [address] [place] [address] Erythrocyte distribution width (RBC) [Ratio] 13.5 % Normal 11.5-15.0 [facility] Comment on above: Performed By: #### C MALI, CMP #### [facility] ([id number]) [address] [place] [address] Hematocrit (Bld) [Volume fraction] 38.7 % Normal 35-47 [facility] Comment on above: Performed By: #### C BCA, CMP #### [facility] ([id number]) [address] [place] [address] Hemoglobin (Bld) [Mass/Vol] 13.3 g/dL Normal 11.7-15.5 [facility] Comment on above: Performed By: #### C BCA, CMP #### [facility] ([id number]) [address] [place] [address] Lymphocytes (Bld) [#/Vol] 1.1 10*3/uL Normal 1.0-3.5 [facility] Comment on above: Performed By: #### C BCA, CMP #### [facility] ([id number]) [address] [place] [address] Lymphocytes/100 WBC (Bld) 17.8 % Normal [facility] Comment on above: Performed By: #### C BCA, CMP #### [facility] ([id number]) [address] [place] [address] MCH (RBC) [Entitic mass] 32.8 pg Normal 27-34 [facility] Comment on above: Performed By: #### C BCA, CMP #### [facility] ([id number]) [address] [place] [address] MCHC (RBC) [Mass/Vol] 34.3 g/dL Normal 32-36 [facility] Comment on above: Performed By: #### C BCA, CMP #### [facility] ([id number]) [address] [place] [address] MCV (RBC) [Entitic vol] 96 fL Normal 80-100 [facility] Comment on above: Performed By: #### C BCA, CMP #### [facility] ([id number]) [address] [address] [place] [address] Monocytes (Bld) [#/Vol] 0.7 10*3/uL Normal 0-0.9 [facility] Comment on above: Performed By: #### C BCA, CMP #### [facility] ([id number]) [address] [place] [address] Monocytes/100 WBC (Bld) 11.0 % Normal [facility] Comment on above: Performed By: #### C BCA, CMP #### [facility] ([id number]) [address] [place] [address] Neutrophils/100 WBC (Bld) 58.9 % Normal [facility] Comment on above: Performed By: #### C BCA, CMP #### [facility] ([id number]) [address] [place] [address] Platelet mean volume (Bld) [Entitic vol] 9.7 fL Normal 7-12 [facility] Comment on above: Performed By: #### C BCA, CMP #### [facility] ([id number]) [address] [facility] [address] [place] [address] Platelets (Bld) [#/Vol] 264 10*3/uL Normal 150-450 [facility] Comment on above: Performed By: #### C BCA, CMP #### [facility] ([id number]) [address] [place] [address] RBC COUNT 4.05 X10E12/L Normal 3.80-5.20 [facility] Comment on above: Performed By: #### C BCA, CMP #### [facility] ([id number]) [address] [place] [address] WBC (Bld) [#/Vol] 6.3 10*3/uL Normal 4.0-11.0 [facility] Comment on above: Performed By: #### C BCA, CMP #### [facility] ([id number]) [address] [place] [address] COMPREHENSIVE METABOLIC PANE Henry 01-19-2024 Albumin [Mass/Vol] 3.6 g/dL Normal 3.2-5.3 [facility] Comment on above: Performed By: #### C BCA, CMP #### [facility] ([id number]) [address] [place] [address] ALP [Catalytic activity/Vol] 89 U/L Normal 39-130 [facility] Comment on above: Performed By: #### C BCA, CMP #### [facility] ([id number]) [address] [place] [address] ALT [Catalytic activity/Vol] 19 U/L Normal 0-31 [facility] Comment on above: Performed By: #### C BCA, CMP #### [facility] ([id number]) [address] [place] [address] Anion gap [Moles/Vol] 9 mmol/L Normal 5-15 [facility] Comment on above: Performed By: #### C BCA, CMP #### [facility] ([id number]) [address] [place] [address] AST [Catalytic activity/Vol] 31 U/L Normal 0-41 [facility] Comment on above: Performed By: #### C BCA, CMP #### [facility] ([id number]) [address] [place] [address] Bilirubin [Mass/Vol] 0.4 mg/dL Normal 0.3-1.2 [facility] Comment on above: Performed By: #### C BCA, CMP #### [facility] ([id number]) [address] [place] [address] Calcium [Mass/Vol] 9.3 mg/dL Normal 8.5-10.5 [facility] Comment on above: Performed By: #### C BCA, CMP #### [facility] ([id number]) [address] [place] [address] Chloride [Moles/Vol] 106 mmol/L Normal 98-109 [facility] Comment on above: Performed By: #### C BCA, CMP #### [facility] ([id number]) [address] [place] [address] CO2 [Moles/Vol] 25 mmol/L Normal 22-32 [facility] Comment on above: Performed By: #### C BCA, CMP #### [facility] ([id number]) [address] [place] [address] Creatinine [Mass/Vol] 0.80 mg/dL Normal 0.40-1.00 [facility] Comment on above: Result Comment: METH OD TRACEABLE TO IDMS STANDARD Performed By: #### C BCA, CMP #### [facility] ([id number]) [address] [place] [address] GFR/1.73 sq M.predicted among non-blacks MDRD (S/P/Bld) [Vol rate/Area] 73 mL/min/{1.73_m2} Normal >59 [facility] Comment on above: Result Comment: Reported eGFR is based on the CKD-EPI 1 equation that does not use a race coefficient. Performed By: #### C BCA, CMP #### [facility] ([id number]) [address] [place] [address] Glucose [Mass/Vol] 112 mg/dL High 65-99 [facility] Comment on above: Performed By: #### C BCA, CMP #### [facility] ([id number]) [address] [address] [place] [address] Potassium [Moles/Vol] 3.6 mmol/L Normal 3.5-5.0 [facility] Comment on above: Performed By: #### C BCA, CMP #### [facility] ([id number]) [address] [place] [address] Protein [Mass/Vol] 6.2 g/dL Normal 6.0-8.0 [facility] Comment on above: Performed By: #### C BCA, CMP #### [facility] ([id number]) [address] [place] [address] Sodium [Moles/Vol] 140 mmol/L Normal 134-146 [facility] Comment on above: Performed By: #### C BCA, CMP #### [facility] ([id number]) [address] [place] [address] Urea nitrogen [Mass/Vol] 14 mg/dL Normal 5-27 [facility] Comment on above: Performed By: #### C BCA, CMP #### [facility] ([id number]) [address] [place] [address] CBC AND AUTO DIFFon 12-29-19 24 ABSOLUTE BASOPHIL 0.2 X10E9/L Normal 0.0-0.2 [facility] Comment on above: Performed By: #### C MP, CBCA #### [facility] ([id number]) [address] [address] [place] [address] ABSOLUTE NEUTROPHIL 4.8 X10E9/L Normal 1.5-6.6 [facility] Comment on above: Performed By: #### C MP, CBCA #### [facility] ([id number]) [address] [address] [place] [address] Basophils/100 WBC (Bld) 2.2 % Normal [facility] Comment on above: Performed By: #### C MP, CBCA #### [facility] ([id number]) [address] [address] [place] [address] Eosinophils (Bld) [#/Vol] 0.4 10*3/uL Normal 0.0-0.4 [facility] Comment on above: Performed By: #### C MP, CBCA #### [facility] ([id number]) [address] [place] [address] Eosinophils/100 WBC (Bld) 5.2 % Normal [facility] Comment on above: Performed By: #### C MP, CBCA #### [facility] ([id number]) [address] [place] [address] Erythrocyte distribution width (RBC) [Ratio] 14.2 % Normal 11.5-15.0 [facility] Comment on above: Performed By: #### C MP, CBCA #### [facility] ([id number]) [address] [address] [place] [address] Hematocrit (Bld) [Volume fraction] 40.3 % Normal 35-47 [facility] Comment on above: Performed By: #### C LARA, CBCA #### [facility] ([id number]) [address] [address] [place] [address] Hemoglobin (Bld) [Mass/Vol] 13.7 g/dL Normal 11.7-15.5 [facility] Comment on above: Performed By: #### C LARA, CBCA #### [facility] ([id number]) [address] [address] [place] [address] Lymphocytes (Bld) [#/Vol] 1.2 10*3/uL Normal 1.0-3.5 [facility] Comment on above: Performed By: #### C LARA, CBCA #### [facility] ([id number]) [address] [address] [place] [address] Lymphocytes/100 WBC (Bld) 16.3 % Normal [facility] Comment on above: Performed By: #### C LARA, CBCA #### [facility] ([id number]) [address] [address] [place] [address] MCH (RBC) [Entitic mass] 32.4 pg Normal 27-34 [facility] Comment on above: Performed By: #### C MP, CBCA #### [facility] ([id number]) [address] [place] [address] MCHC (RBC) [Mass/Vol] 34.0 g/dL Normal 32-36 [facility] Comment on above: Performed By: #### C MP, CBCA #### [facility] ([id number]) [address] [place] [address] MCV (RBC) [Entitic vol] 95 fL Normal 80-100 [facility] Comment on above: Performed By: #### C MP, CBCA #### [facility] ([id number]) [address] [place] [address] Monocytes (Bld) [#/Vol] 0.9 10*3/uL Normal 0-0.9 [facility] Comment on above: Performed By: #### C MP, CBCA #### [facility] ([id number]) [address] [place] [address] Monocytes/100 WBC (Bld) 12.3 % Normal [facility] Comment on above: Performed By: #### C MP, CBCA #### [facility] ([id number]) [address] [place] [address] Neutrophils/100 WBC (Bld) 64.0 % Normal [facility] Comment on above: Performed By: #### C MP, CBCA #### [facility] ([id number]) [address] [place] [address] Platelet mean volume (Bld) [Entitic vol] 10.3 fL Normal 7-12 [facility] Comment on above: Performed By: #### C MP, CBCA #### [facility] ([id number]) [address] [place] [address] Platelets (Bld) [#/Vol] 261 10*3/uL Normal 150-450 [facility] Comment on above: Performed By: #### C MP, CBCA #### [facility] ([id number]) [address] [place] [address] RBC COUNT 4.23 X10E12/L Normal 3.80-5.20 [facility] Comment on above: Performed By: #### C MP, CBCA #### [facility] ([id number]) [address] [place] [address] WBC (Bld) [#/Vol] 7.5 10*3/uL Normal 4.0-11.0 [facility] Comment on above: Performed By: #### C LARA, CBCA #### [facility] ([id number]) [address] [place] [address] COMPREHENSIVE METABOLIC PANE Henry 12-29-2023 Albumin [Mass/Vol] 3.8 g/dL Normal 3.2-5.3 [facility] Comment on above: Performed By: #### C LARA, CBCA #### [facility] ([id number]) [address] [place] [address] ALP [Catalytic activity/Vol] 80 U/L Normal 39-130 [facility] Comment on above: Performed By: #### C LARA, CBCA #### [facility] ([id number]) [address] [place] [address] ALT [Catalytic activity/Vol] 14 U/L Normal 0-31 [facility] Comment on above: Performed By: #### C MP, CBCA #### [facility] ([id number]) [address] [place] [address] Anion gap [Moles/Vol] 10 mmol/L Normal 5-15 [facility] Comment on above: Performed By: #### C MP, CBCA #### [facility] ([id number]) [address] [place] [address] AST [Catalytic activity/Vol] 35 U/L Normal 0-41 [facility] Comment on above: Performed By: #### C LARA CBCBenjie #### [facility] ([id number]) [address] [place] [address] Bilirubin [Mass/Vol] 0.4 mg/dL Normal 0.3-1.2 [facility] Comment on above: Performed By: #### C LARA CBCA #### [facility] ([id number]) [address] [address] [place] [address] Calcium [Mass/Vol] 9.4 mg/dL Normal 8.5-10.5 [facility] Comment on above: Performed By: #### C LARA CBCBenjie #### [facility] ([id number]) [address] [place] [address] Chloride [Moles/Vol] 107 mmol/L Normal 98-109 [facility] Comment on above: Performed By: #### C YENNIFER BERMUDEZ #### [facility] ([id number]) [address] [place] [address] CO2 [Moles/Vol] 23 mmol/L Normal 22-32 [facility] Comment on above: Performed By: #### YENNIFER Bonner MP #### [facility] ([id number]) [address] [place] [address] Creatinine [Mass/Vol] 0.83 mg/dL Normal 0.40-1.00 [facility] Comment on above: Result Comment: METH OD TRACEABLE TO IDMS STANDARD Performed By: #### C YENNIFER BERMUDEZ #### [facility] ([id number]) [address] [place] [address] GFR/1.73 sq M.predicted among non-blacks MDRD (S/P/Bld) [Vol rate/Area] 70 mL/min/{1.73_m2} Normal >59 [facility] Comment on above: Result Comment: Reported eGFR is based on the CKD-EPI 2020 equation that does not use a race coefficient. Performed By: #### C YENNIFER BERMUDEZ #### [facility] ([id number]) [address] [place] [address] Glucose [Mass/Vol] 100 mg/dL High 65-99 [facility] Comment on above: Performed By: #### C LARA CBCA #### [facility] ([id number]) [address], [address] [place] [address] Potassium [Moles/Vol] 3.8 mmol/L Normal 3.5-5.0 [facility] Comment on above: Performed By: #### C LARA CBCA #### [facility] ([id number]) [address], [address] [place] [address] Protein [Mass/Vol] 6.5 g/dL Normal 6.0-8.0 [facility] Comment on above: Performed By: #### C LARA CBCBenjie #### [facility] ([id number]) [address], [address] [place] [address] Sodium [Moles/Vol] 140 mmol/L Normal 134-146 [facility] Comment on above: Performed By: #### C LARA CBCA #### [facility] ([id number]) [address] [place] [address] Urea nitrogen [Mass/Vol] 18 mg/dL Normal 5-27 [facility] Comment on above: Performed By: #### C LARA CBCA #### [facility] ([id number]) [address] [place] [address] PATHOLOGY REQUEST FOR LAB CO [facility] 11-09-2023 PATHOLOGY REQUEST FOR LAB [facility] Comment on above: See report. Scanned copy available in EMR. PATHOLOGY BREAST BIOPSY [facility] Pathology Request for Lab Co rpon 11-03-2023 Pathology Request for Lab Ray Normal [facility] Comment on above: Order Comment: PATHO LOGY BREAST BIOPSY Result Comment: See report. Scanned copy available in EMR. PERFORMED BY: [place] [address] PATHOLOGIST SECOND BUTLER TOBIAS SCOTT M.D. Performed By: #### P ATH TO [facility] #### [address] Surgical PathologyOrdered By : Yue Joel on 11-03-2023 [facility] POCT EKGon 04-10-2023 [facility] CULTURE URINEon 03-28-2022 CULTURE URINE Isolate 1 [...] Trimethoprim/Sulfame thoxazole >=320 R F Normal [facility] Comment on above: Performed By: #### C JESSICA BRAY #### [facility] [address] [place] [address] Dr. Meron Solis CULTURE URINEon 02-10-2022 CULTURE URINE Culture Observations: ERIC TO FOLLOW. Isolate 1 Citrobacter spp. >100,000 cfu/mL of Normal [facility] Comment on above: Performed By: #### C ASA LIVER #### [facility] [address] [place] [address] Dr. Meron Solis UA RANDOM W/MICROSCOPICon BACTERIA MODERATE Abnormal NONE SEEN [facility] Comment on above: Performed By: #### U AMIC #### [facility] [address] [place] [address] Dr. Meron Solis Bilirubin Ql (U) Negative Normal NEGATIVE [facility] Comment on above: Performed By: #### U AMIC #### [facility] [address] [address] [address] Meron Solis CAST NONE SEEN Normal NONE SEEN [facility] Comment on above: Performed By: #### U AMIC #### [facility] [address] [address] [address] Meron Solis Clarity (U) CLEAR Normal CLEAR [facility] Comment on above: Performed By: #### U AMIC #### [facility] [address] [address] [address] Meron Solis Color (U) YELLOW Normal YELLOW [facility] Comment on above: Performed By: #### U AMIC #### [facility] [address] [address] [address] Meron Solis Crystals LM Nom (Urine sed) NONE SEEN Normal NONE SEEN [facility] Comment on above: Performed By: #### U AMIC #### [facility] [address] [address] [address] Meron Solis Epithelial cells LM Ql (Urine sed) FEW Abnormal NONE SEEN /RARE [facility] Comment on above: Performed By: #### U AMIC #### [facility] [address] [address] [address] Meron Solis Glucose Ql (U) Negative Normal NEGATIVE [facility] Comment on above: Performed By: #### U AMIC #### [facility] [address] [address] [address] Meron Solis Hemoglobin Ql (U) TRACE-INTACT Abnormal NEGATIVE [facility] Comment on above: Performed By: #### U AMIC #### [facility] [address] [address] [address] Meron Solis Ketones Ql (U) Negative Normal NEGATIVE [facility] Comment on above: Performed By: #### U AMIC #### [facility] [address] [address] [address] Meron Solis LEUKOCYTES LARGE Abnormal NEGATIVE [facility] Comment on above: Performed By: #### U AMIC #### [facility] [address] [address] [address] Meron Solis MUCOUS NONE SEEN Normal NONE SEEN [facility] Comment on above: Performed By: #### U AMIC #### [facility] [address] [place] [address] Dr. Meron Solis Nitrite Ql (U) Negative Normal NEGATIVE [facility] Comment on above: Performed By: #### U AMIC #### [facility] [address] [place] [address] Dr. Meron Solis pH (U) 6.0 [pH] Normal 5-9 [facility] Comment on above: Performed By: #### U AMIC #### [facility] [address] [place] [address] Dr. Meron Solis RBC 5-10 Abnormal 0-2 [facility] Comment on above: Performed By: #### U AMIC #### [facility] [address] [place] [address] Dr. Meron Solis SPEC GRAVITY <=1.005 Abnormal 1.005-<=1.02 5 [facility] Comment on above: Performed By: #### U AMIC #### [facility] [address] [place] [address] Dr. Meron Solis UA PROTEIN Negative Normal NEGATIVE/ TRACE [facility] Comment on above: Performed By: #### U AMIC #### [facility] [address] [place] [address] Dr. Meron Solis Urobilinogen Qn (U) 0.2 {Opal'U}/dL Normal 0.2 - 1. 0 [facility] Comment on above: Performed By: #### U AMIC #### [facility] [address] [place] [address] Dr. Meron Solis WBC 50-75 Abnormal NONE SEEN [facility] Comment on above: Performed By: #### U AMIC #### [facility] [address] [place] [address] Dr. Meron Solis C3 and C4 COMPLEMENTon 01-09 Complement C3, Serum 143 mg/dL Normal 82-167 [facility] Comment on above: Performed By: #### C ASA, LIVER #### [facility] [address] [address] [address] Meron Solis Complement C4, Serum 44 mg/dL Critically high 12-38 [facility] Comment on above: Performed By: #### C ASA, LIVER #### [facility] [address] [address] [address] Meron Solis COMPLEMENT TOTAL (CH50)on Complement, Total (CH50) >60 Normal >41 [facility] Comment on above: Result Comment: Age Male [...] values. Performed By: #### S EDR #### [facility] [address] [place] [address] Dr. Meron Solis CRPon 01-08-2022 CRP [Mass/Vol] mg/L Normal <=1.0 [facility] Comment on above: Performed By: #### L IVER, CRP #### [facility] [address] [address] [address] Meron Solis LIVER PROFILEon 01-08-2022 Albumin [Mass/Vol] 3.6 g/dL Normal 3.4-5.[address] [facility] Comment on above: Performed By: #### L IVER, CRP #### [facility] [address] [address] [address] Meron Solis Albumin/Globulin [Mass ratio] 1.0 {ratio} Normal [facility] Comment on above: Performed By: #### L IVER, CRP #### [facility] [address] [address] [address] Meron Solis ALP [Catalytic activity/Vol] 127 U/L Critically high 46-116 [facility] Comment on above: Performed By: #### L IVER, CRP #### [facility] [address] [address] [address] Meron Solis ALT [Catalytic activity/Vol] 29 U/L Normal 14-59 [facility] Comment on above: Performed By: #### L IVER, CRP #### [facility] [address] [address] [address] Meron Solis AST [Catalytic activity/Vol] 30 U/L Normal 15-37 [facility] Comment on above: Performed By: #### L IVER, CRP #### [facility] [address] [address] [address] Meron Solis BILI, CONJUGATED 0.2 mg/dL Normal 0.0-0.2 [facility] Comment on above: Performed By: #### L IVER, CRP #### [facility] [address] [address] [address] Meron Solis Bilirubin [Mass/Vol] 0.8 mg/dL Normal 0.2-1.0 [facility] Comment on above: Performed By: #### L IVER, CRP #### [facility] [address] [address] [address] Meron Solis Globulin (S) [Mass/Vol] 3.7 g/dL Normal [facility] Comment on above: Performed By: #### L IVER, CRP #### [facility] [address] [address] [address] Meron Solis Protein [Mass/Vol] 7.3 g/dL Normal 6.4-8.[address] [facility] Comment on above: Performed By: #### L IVER, CRP #### [facility] [address] [address] [address] Meron Solis SED RATE WESTERGRENon 2021 SED RATE 35 mm/hr Critically high <=30 [facility] Comment on above: Performed By: #### C ASA, LIVER #### [facility] [address] [address] [address] Meron Solis UA RANDOM W/MICROSCOPICon BACTERIA MODERATE Abnormal NONE SEEN [facility] Comment on above: Performed By: #### S EDR #### [facility] [address] [place] [address] Dr. Meron Solis Bilirubin Ql (U) Negative Normal NEGATIVE [facility] Comment on above: Performed By: #### S EDR #### [facility] [address] [place] [address] Dr. Meron Solis CAST NONE SEEN Normal NONE SEEN [facility] Comment on above: Performed By: #### S EDR #### [facility] [address] [place] [address] Dr. Meron Solis Clarity (U) CLOUDY Abnormal CLEAR [facility] Comment on above: Performed By: #### S EDR #### [facility] [address] [place] [address] Dr. Meron Solis Color (U) LT. YELLOW Normal YELLOW [facility] Comment on above: Performed By: #### S EDR #### [facility] [address] [place] [address] Dr. Meron Solis Crystals LM Nom (Urine sed) NONE SEEN Normal NONE SEEN [facility] Comment on above: Performed By: #### S EDR #### [facility] [address] [place] [address] Dr. Meron Solis Epithelial cells LM Ql (Urine sed) FEW Abnormal NONE SEEN /RARE [facility] Comment on above: Performed By: #### S EDR #### [facility] [address] [place] [address] Dr. Meron Solis Glucose Ql (U) Negative Normal NEGATIVE [facility] Comment on above: Performed By: #### S EDR #### [facility] [address] [place] [address] Dr. Meron Solis Hemoglobin Ql (U) TRACE-INTACT Abnormal NEGATIVE [facility] Comment on above: Performed By: #### S EDR #### [facility] [address] [place] [address] Dr. Meron Solis Ketones Ql (U) Negative Normal NEGATIVE [facility] Comment on above: Performed By: #### S EDR #### [facility] [address] [address] [address] Meron Solis LEUKOCYTES LARGE Abnormal NEGATIVE [facility] Comment on above: Performed By: #### S EDR #### [facility] [address] [place] [address] Dr. Meron Solis MUCOUS NONE SEEN Normal NONE SEEN [facility] Comment on above: Performed By: #### S EDR #### [facility] [address] [address] [address] Meron Solis Nitrite Ql (U) Negative Normal NEGATIVE [facility] Comment on above: Performed By: #### S EDR #### [facility] [address] [place] [address] Dr. Meron Solis pH (U) 6.0 [pH] Normal 5-9 [facility] Comment on above: Performed By: #### S EDR #### [facility] [address] [place] [address] Dr. Meron Solis RBC 2-5 Abnormal 0-2 [facility] Comment on above: Performed By: #### S EDR #### [facility] [address] [place] [address] Dr. Meron Solis SPEC GRAVITY 1.010 Normal 1.005-<=1.02 5 [facility] Comment on above: Performed By: #### S EDR #### [facility] [address] [place] [address] Dr. Meron Soils UA PROTEIN Negative Normal NEGATIVE/ TRACE [facility] Comment on above: Performed By: #### S EDR #### [facility] [address] [place] [address] Dr. Meron Solis Urobilinogen Qn (U) 0.2 {Opal'U}/dL Normal 0.2 - 1. 0 [facility] Comment on above: Performed By: #### S EDR #### [facility] [address] [place] [address] Dr. Meron Solis WBC (U) [#/Vol] /uL Abnormal NONE SEEN [facility] Comment on above: Performed By: #### S EDR #### [facility] [address] [place] [address] Dr. Meron Solis CULTURE URINEon 12-15-2021 CULTURE URINE Isolate 1 [...] Trimethoprim/Sulfame thoxazole <=20 S F Normal [facility] Comment on above: Performed By: #### C ASA LIVER #### [facility] [address] [place] [address] Dr. Meron Solis CBC AUTO DIFFon 12-10-2021 BASO # 0.1 103/ul Normal 0.0-0.1 [facility] Comment on above: Performed By: #### Ha BRAY LIVER #### [facility] [address] [place] [address] Dr. Meron Solis Basophils/100 WBC (Bld) 0.7 % Normal 0.2-2.0 [facility] Comment on above: Performed By: #### C ASA LIVER #### [facility] [address] [place] [address] Dr. Meron Solis EO # 0.2 103/ul Normal 0.0-0.7 [facility] Comment on above: Performed By: #### Ha BRAY LIVER #### [facility] [address] [place] [address] Dr. Meron Solis Eosinophils/100 WBC (Bld) 2.4 % Normal 0.9-7.0 [facility] Comment on above: Performed By: #### Ha BRAY LIVER #### [facility] [address] [place] [address] Dr. Meron Solis Erythrocyte distribution width (RBC) [Ratio] 15.3 % Critically high 11.0-15.0 [facility] Comment on above: Performed By: #### C ASA, LIVER #### [facility] [address] [place] [address] Dr. Meron Solis Hematocrit (Bld) [Volume fraction] 45.6 % Normal 36.0-48.0 [facility] Comment on above: Performed By: #### C ASA, LIVER #### [facility] [address] [place] [address] Dr. Meron Solis Hemoglobin (Bld) [Mass/Vol] 15.3 g/dL Normal 12.0-16.0 [facility] Comment on above: Performed By: #### C ASA, LIVER #### [facility] [address] [place] [address] Dr. Meron Solis IG # 0.03 10e3/ul Normal 0.00-0.03 [facility] Comment on above: Performed By: #### C ASA, LIVER #### [facility] [address] [place] [address] Dr. Meron Solis IG % 0.3 % Normal 0.0-0.5 [facility] Comment on above: Performed By: #### C ASA, LIVER #### [facility] [address] [place] [address] Dr. Meron Solis LYMPH # 1.6 103/ul Normal 1.2-3.8 [facility] Comment on above: Performed By: #### C ASA, LIVER #### [facility] [address] [place] [address] Dr. Meron Solis Lymphocytes/100 WBC (Bld) 17.0 % Critically low 20.5-60.0 [facility] Comment on above: Performed By: #### C ASA, LIVER #### [facility] [address] [place] [address] Dr. Meron Solis MANUAL DIFF REQ NO Normal [facility] Comment on above: Performed By: #### C ASA, LIVER #### [facility] [address] [address] [address] Meron Solis MCH (RBC) [Entitic mass] 31.4 pg Normal 26.7-34.0 [facility] Comment on above: Performed By: #### C ASA, LIVER #### [facility] [address] [place] [address] Dr. Meron Solis MCHC (RBC) [Mass/Vol] 33.6 g/dL Normal 29.9-35.2 [facility] Comment on above: Performed By: #### C ASA, LIVER #### [facility] [address] [place] [address] Dr. Meron Solis MCV (RBC) [Entitic vol] 93.6 fL Normal 81.0-99.0 [facility] Comment on above: Performed By: #### C ASA, LIVER #### [facility] [address] [place] [address] Dr. Meron Solis MONO # 1.0 103/ul Critically high 0.3-0.8 [facility] Comment on above: Performed By: #### C ASA, LIVER #### [facility] [address] [place] [address] Dr. Meron Solis Monocytes/100 WBC (Bld) 10.9 % Normal 1.7-12.0 [facility] Comment on above: Performed By: #### C ASA, LIVER #### [facility] [address] [place] [address] Dr. Meron Solis NEUT # 6.3 103/ul Normal 1.4-6.5 [facility] Comment on above: Performed By: #### C ASA, LIVER #### [facility] [address] [place] [address] Dr. Meron Solis Neutrophils/100 WBC (Bld) 68.7 % Normal 43.0-75.0 [facility] Comment on above: Performed By: #### C ASA, LIVER #### [facility] [address] [place] [address] Dr. Meron Solis Platelet mean volume (Bld) [Entitic vol] 10.9 fL Normal 9.5-13.5 [facility] Comment on above: Performed By: #### C ASA, LIVER #### [facility] [address] [place] [address] Dr. Meron Solis PLT 300 103/ul Normal 150-450 [facility] Comment on above: Performed By: #### C ASA, LIVER #### [facility] [address] [address] [address] Meron Solis RBC 4.87 106/ul Normal 4.20-5.40 [facility] Comment on above: Performed By: #### C ASA, LIVER #### [facility] [address] [place] [address] Dr. Meron Solis WBC 9.2 103/ul Normal 4.0-11.0 [facility] Comment on above: Performed By: #### C ASA, LIVER #### [facility] [address] [place] [address] Dr. Meron Solis CREATININEon 12-10-2021 Creatinine [Mass/Vol] 0.96 mg/dL Normal 0.55-1.02 [facility] Comment on above: Performed By: #### C ASA, LIVER #### [facility] [address] [place] [address] Dr. Meron Solis EGFR-AF IRANIAN >60 Normal >=60 [facility] Comment on above: Performed By: #### C ASA, LIVER #### [facility] [address] [place] [address] Dr. Meron Solis EGFR-NON AF IRANIAN 56 mL/min/1.73m2 Critically low >=60 [facility] Comment on above: Performed By: #### C ASA, LIVER #### [facility] [address] [place] [address] Dr. Meron Solis LIVER PROFILEon 12-10-2021 Albumin [Mass/Vol] 3.4 g/dL Normal 3.4-5.[address] [facility] Comment on above: Performed By: #### C ASA, LIVER #### [facility] [address] [place] [address] Dr. Meron Solis Albumin/Globulin [Mass ratio] 0.9 {ratio} Normal [facility] Comment on above: Performed By: #### C ASA, LIVER #### [facility] [address] [place] [address] Dr. Meron Solis ALP [Catalytic activity/Vol] 149 U/L Critically high 46-116 [facility] Comment on above: Performed By: #### C ASA, LIVER #### [facility] [address] [address] [address] Meron Solis ALT [Catalytic activity/Vol] 36 U/L Normal 14-59 [facility] Comment on above: Performed By: #### C ASA, LIVER #### [facility] [address] [place] [address] Dr. Meron Solis AST [Catalytic activity/Vol] 40 U/L Critically high 15-37 [facility] Comment on above: Performed By: #### C ASA, LIVER #### [facility] [address] [place] [address] Dr. Meron Solis BILI, CONJUGATED 0.2 mg/dL Normal 0.0-0.2 [facility] Comment on above: Performed By: #### C ASA, LIVER #### [facility] [address] [place] [address] Dr. Meron Solis Bilirubin [Mass/Vol] 0.5 mg/dL Normal 0.2-1.0 [facility] Comment on above: Performed By: #### C ASA, LIVER #### [facility] [address] [place] [address] Dr. Meron Solis Globulin (S) [Mass/Vol] 3.7 g/dL Normal [facility] Comment on above: Performed By: #### C ASA, LIVER #### [facility] [address] [place] [address] Dr. Meron Solis Protein [Mass/Vol] 7.1 g/dL Normal 6.4-8.[address] [facility] Comment on above: Performed By: #### C ASA, LIVER #### [facility] [address] [place] [address] Dr. Meron Solis SED RATE WESTERGREN 2021 SED RATE 20 mm/hr Normal <=30 [facility] Comment on above: Performed By: #### S EDR #### [facility] [address] [place] [address] Dr. Meron Solis CBC AUTO DIFFon 11-25-2021 BASO # 0.1 103/ul Normal 0.0-0.1 [facility] Comment on above: Performed By: #### C ASA, LIVER #### [facility] [address] [place] [address] Dr. Meron Solis Basophils/100 WBC (Bld) 1.1 % Normal 0.2-2.0 [facility] Comment on above: Performed By: #### C ASA, LIVER #### [facility] [address] [place] [address] Dr. Meron Solis EO # 0.2 103/ul Normal 0.0-0.7 [facility] Comment on above: Performed By: #### C ASA, LIVER #### [facility] [address] [place] [address] Dr. Meron Solis Eosinophils/100 WBC (Bld) 2.4 % Normal 0.9-7.0 [facility] Comment on above: Performed By: #### C ASA, LIVER #### [facility] [address] [place] [address] Dr. Meron Solis Erythrocyte distribution width (RBC) [Ratio] 15.1 % Critically high 11.0-15.0 [facility] Comment on above: Performed By: #### C ASA, LIVER #### [facility] [address] [place] [address] Dr. Meron Solis Hematocrit (Bld) [Volume fraction] 48.0 % Normal 36.0-48.0 [facility] Comment on above: Performed By: #### C ASA, LIVER #### [facility] [address] [place] [address] Dr. Meron Solis Hemoglobin (Bld) [Mass/Vol] 15.5 g/dL Normal 12.0-16.0 [facility] Comment on above: Performed By: #### C ASA, LIVER #### [facility] [address] [address] [address] Meron Solis IG # 0.03 10e3/ul Normal 0.00-0.03 [facility] Comment on above: Performed By: #### C ASA, LIVER #### [facility] [address] [address] [address] Meron Solis IG % 0.3 % Normal 0.0-0.5 [facility] Comment on above: Performed By: #### C ASA, LIVER #### [facility] [address] [address] [address] Meron Solis LYMPH # 1.7 103/ul Normal 1.2-3.8 [facility] Comment on above: Performed By: #### C ASA, LIVER #### [facility] [address] [address] [address] Meron Solis Lymphocytes/100 WBC (Bld) 18.3 % Critically low 20.5-60.0 [facility] Comment on above: Performed By: #### C ASA, LIVER #### [facility] [address] [address] [address] Meron Solis MANUAL DIFF REQ NO Normal [facility] Comment on above: Performed By: #### C ASA, LIVER #### [facility] [address] [address] [address] Meron Solis MCH (RBC) [Entitic mass] 30.7 pg Normal 26.7-34.0 [facility] Comment on above: Performed By: #### C ASA, LIVER #### [facility] [address] [address] [address] Meron Solis MCHC (RBC) [Mass/Vol] 32.3 g/dL Normal 29.9-35.2 [facility] Comment on above: Performed By: #### C ASA, LIVER #### [facility] [address] [address] [address] Meron Solis MCV (RBC) [Entitic vol] 95.0 fL Normal 81.0-99.0 [facility] Comment on above: Performed By: #### C ASA, LIVER #### [facility] [address] [place] [address] Dr. Meron Solis MONO # 1.0 103/ul Critically high 0.3-0.8 [facility] Comment on above: Performed By: #### C ASA, LIVER #### [facility] [address] [place] [address] Dr. Meron Solis Monocytes/100 WBC (Bld) 10.4 % Normal 1.7-12.0 [facility] Comment on above: Performed By: #### C ASA, LIVER #### [facility] [address] [place] [address] Dr. Meron Solis NEUT # 6.2 103/ul Normal 1.4-6.5 [facility] Comment on above: Performed By: #### C ASA, LIVER #### [facility] [address] [place] [address] Dr. Meron Solis Neutrophils/100 WBC (Bld) 67.5 % Normal 43.0-75.0 [facility] Comment on above: Performed By: #### C ASA, LIVER #### [facility] [address] [place] [address] Dr. Meron Solis Platelet mean volume (Bld) [Entitic vol] 10.8 fL Normal 9.5-13.5 [facility] Comment on above: Performed By: #### C ASA, LIVER #### [facility] [address] [place] [address] Dr. Meron Solis PLT 295 103/ul Normal 150-450 [facility] Comment on above: Performed By: #### C ASA, LIVER #### [facility] [address] [place] [address] Dr. Meron Solis RBC 5.05 106/ul Normal 4.20-5.40 [facility] Comment on above: Performed By: #### C ASA, LIVER #### [facility] [address] [place] [address] Dr. Meron Soils WBC 9.2 103/ul Normal 4.0-11.0 [facility] Comment on above: Performed By: #### C ASA, LIVER #### [facility] [address] [place] [address] Dr. Meron Solis CREATININEon 11-25-2021 Creatinine [Mass/Vol] 1.03 mg/dL Critically high 0.55-1.02 [facility] Comment on above: Performed By: #### S EDR #### [facility] [address] [place] [address] Dr. Meron Solis EGFR-AF IRANIAN 39 mL/min/1.73m2 Critically low >=60 [facility] Comment on above: Performed By: #### S EDR #### [facility] [address] [place] [address] Dr. Meron Solis EGFR-NON AF IRANIAN 32 mL/min/1.73m2 Critically low >=60 [facility] Comment on above: Performed By: #### S EDR #### [facility] [address] [place] [address] Dr. Meron Solis LIVER PROFILEon 11-25-2021 Albumin [Mass/Vol] 3.5 g/dL Normal 3.4-5.[address] [facility] Comment on above: Performed By: #### S EDR #### [facility] [address] [place] [address] Dr. Meron Solis Albumin/Globulin [Mass ratio] 1.0 {ratio} Normal [facility] Comment on above: Performed By: #### S EDR #### [facility] [address] [place] [address] Dr. Meron Solis ALP [Catalytic activity/Vol] 135 U/L Critically high 46-116 [facility] Comment on above: Performed By: #### S EDR #### [facility] [address] [place] [address] Dr. Meron Solis ALT [Catalytic activity/Vol] 41 U/L Normal 14-59 [facility] Comment on above: Performed By: #### S EDR #### [facility] [address] [place] [address] Dr. Meron Solis AST [Catalytic activity/Vol] 39 U/L Critically high 15-37 [facility] Comment on above: Performed By: #### S EDR #### [facility] [address] [address] [address] Meron Solis BILI, CONJUGATED 0.1 mg/dL Normal 0.0-0.2 [facility] Comment on above: Performed By: #### S EDR #### [facility] [address] [address] [address] Meron Solis Bilirubin [Mass/Vol] 0.5 mg/dL Normal 0.2-1.0 [facility] Comment on above: Performed By: #### S EDR #### [facility] [address] [place] [address] Dr. Meron Solis Globulin (S) [Mass/Vol] 3.5 g/dL Normal [facility] Comment on above: Performed By: #### S EDR #### [facility] [address] [address] [address] Meron Solis Protein [Mass/Vol] 7.0 g/dL Normal 6.4-8.[address] [facility] Comment on above: Performed By: #### S EDR #### [facility] [address] [place] [address] Dr. Meron Solis [facility] SED R[facility] 11 mm/hr Normal <=30 [facility] Comment on above: Performed By: #### S EDR #### [facility] [address] [place] [address] Dr. Meron Solis CBC AUTO DIFFon 11-13-2021 BASO # 0.1 103/ul Normal 0.0-0.1 [facility] Comment on above: Performed By: #### C BC #### [facility] [address] [place] [address] Dr. Meron Solis Basophils/100 WBC (Bld) 0.8 % Normal 0.2-2.0 [facility] Comment on above: Performed By: #### C BC #### [facility] [address] [place] [address] Dr. Meron Solis EO # 0.2 103/ul Normal 0.0-0.7 [facility] Comment on above: Performed By: #### C BC #### [facility] [address] [place] [address] Dr. Meron Solis Eosinophils/100 WBC (Bld) 1.9 % Normal 0.9-7.0 [facility] Comment on above: Performed By: #### C BC #### [facility] [address] [place] [address] Dr. Meron Solis Erythrocyte distribution width (RBC) [Ratio] 14.4 % Normal 11.0-15.0 [facility] Comment on above: Performed By: #### C BC #### [facility] [address] [place] [address] Dr. Meron Solis Hematocrit (Bld) [Volume fraction] 48.9 % Critically high 36.0-48.0 [facility] Comment on above: Performed By: #### C BC #### [facility] [address] [place] [address] Dr. Meron Solis Hemoglobin (Bld) [Mass/Vol] 16.0 g/dL Normal 12.0-16.0 [facility] Comment on above: Performed By: #### C BC #### [facility] [address] [place] [address] Dr. Meron Solis IG # 0.03 10e3/ul Normal 0.00-0.03 [facility] Comment on above: Performed By: #### C BC #### [facility] [address] [place] [address] Dr. Meron Solis IG % 0.3 % Normal 0.0-0.5 [facility] Comment on above: Performed By: #### C BC #### [facility] [address] [place] [address] Dr. Meron Solis LYMPH # 2.5 103/ul Normal 1.2-3.8 [facility] Comment on above: Performed By: #### C BC #### [facility] [address] [place] [address] Dr. Meron Solis Lymphocytes/100 WBC (Bld) 24.8 % Normal 20.5-60.0 [facility] Comment on above: Performed By: #### C BC #### [facility] [address] [place] [address] Dr. Meron Solis MANUAL DIFF REQ NO Normal [facility] Comment on above: Performed By: #### C BC #### [facility] [address] [place] [address] Dr. Meron Solis MCH (RBC) [Entitic mass] 30.9 pg Normal 26.7-34.0 [facility] Comment on above: Performed By: #### C BC #### [facility] [address] [place] [address] Dr. Meron Solis MCHC (RBC) [Mass/Vol] 32.7 g/dL Normal 29.9-35.2 [facility] Comment on above: Performed By: #### C BC #### [facility] [address] [place] [address] Dr. Meron Solis MCV (RBC) [Entitic vol] 94.4 fL Normal 81.0-99.0 [facility] Comment on above: Performed By: #### C BC #### [facility] [address] [place] [address] Dr. Meron Solis MONO # 0.8 103/ul Normal 0.3-0.8 [facility] Comment on above: Performed By: #### C BC #### [facility] [address] [place] [address] Dr. Meron Solis Monocytes/100 WBC (Bld) 7.7 % Normal 1.7-12.0 [facility] Comment on above: Performed By: #### C BC #### [facility] [address] [place] [address] Dr. Meron Solis NEUT # 6.4 103/ul Normal 1.4-6.5 [facility] Comment on above: Performed By: #### C BC #### [facility] [address] [place] [address] Dr. Meron Solis Neutrophils/100 WBC (Bld) 64.5 % Normal 43.0-75.0 [facility] Comment on above: Performed By: #### C BC #### [facility] [address] [place] [address] Dr. Meron Solis Platelet mean volume (Bld) [Entitic vol] 11.1 fL Normal 9.5-13.5 [facility] Comment on above: Performed By: #### C BC #### [facility] [address] [place] [address] Dr. Meron Solis PLT 306 103/ul Normal 150-450 [facility] Comment on above: Performed By: #### C BC #### [facility] [address] [place] [address] Dr. Meron Solis RBC 5.18 106/ul Normal 4.20-5.40 [facility] Comment on above: Performed By: #### C BC #### [facility] [address] [place] [address] Dr. Meron Solis WBC 9.9 103/ul Normal 4.0-11.0 [facility] Comment on above: Performed By: #### C BC #### [facility] [address] [place] [address] Dr. Meron Solis CREATININEon 11-13-2021 Creatinine [Mass/Vol] 1.01 mg/dL Normal 0.55-1.02 [facility] Comment on above: Performed By: #### C ASA, LIVER #### [facility] [address] [place] [address] Dr. Meron Solis EGFR-AF IRANIAN >60 Normal >=60 [facility] Comment on above: Performed By: #### C ASA, LIVER #### [facility] [address] [place] [address] Dr. Meron Solis EGFR-NON AF IRANIAN 53 mL/min/1.73m2 Critically low >=60 [facility] Comment on above: Performed By: #### C ASA, LIVER #### [facility] [address] [place] [address] Dr. Meron Solis LIVER PROFILEon 11-13-2021 Albumin [Mass/Vol] 3.4 g/dL Normal 3.4-5.[address] [facility] Comment on above: Performed By: #### S EDR #### [facility] [address] [place] [address] Dr. Meron Solis Albumin/Globulin [Mass ratio] 0.9 {ratio} Normal [facility] Comment on above: Performed By: #### S EDR #### [facility] [address] [address] [address] Meron Solis ALP [Catalytic activity/Vol] 126 U/L Critically high 46-116 [facility] Comment on above: Performed By: #### S EDR #### [facility] [address] [place] [address] Dr. Meron Solis ALT [Catalytic activity/Vol] 58 U/L Normal 14-59 [facility] Comment on above: Performed By: #### S EDR #### [facility] [address] [place] [address] Dr. Meron Solis AST [Catalytic activity/Vol] 55 U/L Critically high 15-37 [facility] Comment on above: Performed By: #### S EDR #### [facility] [address] [place] [address] Dr. Meron Solis BILI, CONJUGATED 0.1 mg/dL Normal 0.0-0.2 [facility] Comment on above: Performed By: #### S EDR #### [facility] [address] [place] [address] Dr. Meron Solis Bilirubin [Mass/Vol] 0.5 mg/dL Normal 0.2-1.0 [facility] Comment on above: Performed By: #### S EDR #### [facility] [address] [place] [address] Dr. Meron Solis Globulin (S) [Mass/Vol] 3.6 g/dL Normal [facility] Comment on above: Performed By: #### S EDR #### [facility] [address] [place] [address] Dr. Meron Solis Protein [Mass/Vol] 7.0 g/dL Normal 6.4-8.[address] [facility] Comment on above: Performed By: #### S EDR #### [facility] [address] [place] [address] Dr. Meron Solis SED RATE [facility] 2021 SED RATE 13 mm/hr Normal <=30 [facility] Comment on above: Performed By: #### S EDR #### [facility] [address] [place] [address] Dr. Meron Solis CBC AUTO DIFFon 10-28-2021 BASO # 0.1 103/ul Normal 0.0-0.1 [facility] Comment on above: Performed By: #### C BC #### [facility] [address] [place] [address] Dr. Meron Solis Basophils/100 WBC (Bld) 1.1 % Normal 0.2-2.0 [facility] Comment on above: Performed By: #### C BC #### [facility] [address] [place] [address] Dr. Meron Solis EO # 0.2 103/ul Normal 0.0-0.7 [facility] Comment on above: Performed By: #### C BC #### [facility] [address] [place] [address] Dr. Meron Solis Eosinophils/100 WBC (Bld) 2.3 % Normal 0.9-7.0 [facility] Comment on above: Performed By: #### C BC #### [facility] [address] [place] [address] Dr. Meron Solis Erythrocyte distribution width (RBC) [Ratio] 13.8 % Normal 11.0-15.0 [facility] Comment on above: Performed By: #### C BC #### [facility] [address] [place] [address] Dr. Meron Solis Hematocrit (Bld) [Volume fraction] 46.7 % Normal 36.0-48.0 [facility] Comment on above: Performed By: #### C BC #### [facility] [address] [place] [address] Dr. Meron Solis Hemoglobin (Bld) [Mass/Vol] 15.1 g/dL Normal 12.0-16.0 [facility] Comment on above: Performed By: #### C BC #### [facility] [address] [place] [address] Dr. Meron Solis IG # 0.04 10e3/ul Critically high 0.00-0.03 [facility] Comment on above: Performed By: #### C BC #### [facility] [address] [place] [address] Dr. Meron Solis IG % 0.4 % Normal 0.0-0.5 [facility] Comment on above: Performed By: #### C BC #### [facility] [address] [place] [address] Dr. Meron Solis LYMPH # 1.8 103/ul Normal 1.2-3.8 [facility] Comment on above: Performed By: #### C BC #### [facility] [address] [place] [address] Dr. Meron Solis Lymphocytes/100 WBC (Bld) 18.7 % Critically low 20.5-60.0 [facility] Comment on above: Performed By: #### C BC #### [facility] [address] [place] [address] Dr. Meron Solis MANUAL DIFF REQ NO Normal [facility] Comment on above: Performed By: #### C BC #### [facility] [address] [place] [address] Dr. Meron Solis MCH (RBC) [Entitic mass] 30.5 pg Normal 26.7-34.0 [facility] Comment on above: Performed By: #### C BC #### [facility] [address] [place] [address] Dr. Meron Solis MCHC (RBC) [Mass/Vol] 32.3 g/dL Normal 29.9-35.2 [facility] Comment on above: Performed By: #### C BC #### [facility] [address] [place] [address] Dr. Meron Solis MCV (RBC) [Entitic vol] 94.3 fL Normal 81.0-99.0 [facility] Comment on above: Performed By: #### C BC #### [facility] [address] [place] [address] Dr. Meron Solis MONO # 1.1 103/ul Critically high 0.3-0.8 [facility] Comment on above: Performed By: #### C BC #### [facility] [address] [place] [address] Dr. Meron Solis Monocytes/100 WBC (Bld) 11.0 % Normal 1.7-12.0 [facility] Comment on above: Performed By: #### C BC #### [facility] [address] [place] [address] Dr. Meron Solis NEUT # 6.4 103/ul Normal 1.4-6.5 [facility] Comment on above: Performed By: #### C BC #### [facility] [address] [place] [address] Dr. Meron Solis Neutrophils/100 WBC (Bld) 66.5 % Normal 43.0-75.0 [facility] Comment on above: Performed By: #### C BC #### [facility] [address] [place] [address] Dr. Meron Solis Platelet mean volume (Bld) [Entitic vol] 11.1 fL Normal 9.5-13.5 [facility] Comment on above: Performed By: #### C BC #### [facility] [address] [place] [address] Dr. Meron Solis PLT 249 103/ul Normal 150-450 [facility] Comment on above: Performed By: #### C BC #### [facility] [address] [place] [address] Dr. Meron Solis RBC 4.95 106/ul Normal 4.20-5.40 [facility] Comment on above: Performed By: #### C BC #### [facility] [address] [place] [address] Dr. Meron Solis WBC 9.7 103/ul Normal 4.0-11.0 [facility] Comment on above: Performed By: #### C BC #### [facility] [address] [place] [address] Dr. Meron Solis CREATININEon 10-28-2021 Creatinine [Mass/Vol] 0.98 mg/dL Normal 0.55-1.02 [facility] Comment on above: Performed By: #### C ASA, LIVER #### [facility] [address] [place] [address] Dr. Meron Solis EGFR-AF IRANIAN >60 Normal >=60 [facility] Comment on above: Performed By: #### C ASA, LIVER #### [facility] [address] [place] [address] Dr. Meron Solis EGFR-NON AF IRANIAN 54 mL/min/1.73m2 Critically low >=60 [facility] Comment on above: Performed By: #### C ASA, LIVER #### [facility] [address] [place] [address] Dr. Meron Solis LIVER PROFILEon 10-28-2021 Albumin [Mass/Vol] 3.3 g/dL Critically low 3.4-5.0 [facility] Comment on above: Performed By: #### C ASA, LIVER #### [facility] [address] [place] [address] Dr. Meron Solis Albumin/Globulin [Mass ratio] 0.9 {ratio} Normal [facility] Comment on above: Performed By: #### C ASA, LIVER #### [facility] [address] [place] [address] Dr. Meron Solis ALP [Catalytic activity/Vol] 127 U/L Critically high 46-116 [facility] Comment on above: Performed By: #### C ASA, LIVER #### [facility] [address] [place] [address] Dr. Meron Solis ALT [Catalytic activity/Vol] 38 U/L Normal 14-59 [facility] Comment on above: Performed By: #### C ASA, LIVER #### [facility] [address] [place] [address] Dr. Meron Solis AST [Catalytic activity/Vol] 33 U/L Normal 15-37 [facility] Comment on above: Performed By: #### C ASA, LIVER #### [facility] [address] [place] [address] Dr. Meron Solis BILI, CONJUGATED 0.1 mg/dL Normal 0.0-0.2 [facility] Comment on above: Performed By: #### C AAS, LIVER #### [facility] [address] [place] [address] Dr. Meron Solis Bilirubin [Mass/Vol] 0.3 mg/dL Normal 0.2-1.0 [facility] Comment on above: Performed By: #### C ASA, LIVER #### [facility] [address] [place] [address] Dr. Meron Solis Globulin (S) [Mass/Vol] 3.7 g/dL Normal [facility] Comment on above: Performed By: #### C ASA, LIVER #### [facility] [address] [place] [address] Dr. Meron Solis Protein [Mass/Vol] 7.0 g/dL Normal 6.4-8.[address] [facility] Comment on above: Performed By: #### C ASA, LIVER #### [facility] [address] [place] [address] Dr. Meron Solis SED RATE [facility] 2021 SED RATE 8 mm/hr Normal <=30 [facility] Comment on above: Performed By: #### S EDR #### [facility] [address] [place] [address] Dr. Meorn Solis No Panel InformationOrdered By: Jan Solares on 10-09-2021 Hepatitis B Core Total Antibody Negative Negative [facility] Comment on above: Performed at: [address] [id number] [employer] Machine Operator: Guanaco Cui PhD, Phone: [phone] Q - CULTURE,URINE,ROUTINEon 05-07-2021 CULTURE, URINE, ROUTINE SEE NOTE Normal [facility] Sales Agent Comment on above: Order Comment: [facility] performed at: [facility], [facility], [address], [address] [facility], [place], [address], Flight Service Specialist: Harsh Hopkins MD [facility] Collection Date/Time: [facility] Results Received Date/Time: [facility] Reported Date/Time: Result Comment: CULT URE, URINE, ROUTINE Micro Number: [id number] Test Status: Final Specimen Source: Urine Specimen Quality: Adequate Result: No Growth Performed By: #### [id number] #### [facility] Default [address] [place] [address] Vital Signs Date Time Vital Sign Value Performing Clinician Facility 12-14-2024 [id number] Body height 147.3 cm Pfo 3 [facility] 12-14-2024 10:28-0400 Body mass index (BMI) [Ratio] 20.07 kg/m2 Pfo 3 [facility] 12-14-2024 10:28-0400 Body temperature 98.49 [degF] Pfo 3 [facility] 12-14-2024 10:28-0400 Body weight 43.55 kg Pfo 3 [facility] 12-14-2024 10:28-0400 Diastolic blood pressure 75 mm[Hg] Pfo 3 [facility] 12-14-2024 10:28-0400 Heart rate 58 /min Pfo 3 [facility] 12-14-2024 10:28-0400 Respiratory rate 16 /min Pfo 3 [facility] 12-14-2024 10:28-0400 SaO2% (BldA) [Mass fraction] 98 % Pfo 3 [facility] 12-14-2024 10:28-0400 Systolic blood pressure 135 mm[Hg] Pfo 3 [facility] 12-12-2024 11:02-0400 Body height 154.94 cm Boone Ewing MD Work Phone: [facility] 12-12-2024 11:[id number] Body mass index (BMI) [Ratio] 17.9 kg/m2 Boone Ewing MD Work Phone: [facility] 12-12-2024 11:02-0400 Body temperature 97.5 [degF] Boone Ewing MD Work Phone: [facility] 12-12-2024 11:02-0400 Body weight 43.2 kg Boone Ewing MD Work Phone: [facility] 12-12-2024 11:02-0400 Diastolic blood pressure 80 mm[Hg] Boone Ewing MD Work Phone: [facility] 12-12-2024 11:02-0400 Heart rate 54 /min Boone Ewing MD Work Phone: [facility] 12-12-2024 11:02-0400 Respiratory rate 20 /min Boone Ewing MD Work Phone: [facility] 12-12-2024 11:02-0400 SaO2% (BldA) [Mass fraction] 97 % Boone Ewing MD Work Phone: [facility] 12-12-2024 11:02-0400 Systolic blood pressure 130 mm[Hg] Boone Ewing MD Work Phone: [facility] 11-16-2024 10:33-0400 Heart rate 62 /min Pfo 3 [facility] 11-16-2024 10:29-0400 Body height 147.3 cm Pfo 3 [facility] 11-16-2024 10:29-0400 Body mass index (BMI) [Ratio] 20.24 kg/m2 Pfo 3 [facility] 11-16-2024 10:29-0400 Body temperature 97.9 [degF] Pfo 3 [facility] 11-16-2024 10:29-0400 Body weight 43.91 kg Pfo 3 [facility] 11-16-2024 10:29-0400 Diastolic blood pressure 70 mm[Hg] Pfo 3 [facility] 11-16-2024 10:29-0400 Respiratory rate 20 /min Pfo 3 [facility] 11-16-2024 10:29-0400 SaO2% (BldA) [Mass fraction] 98 % Pfo 3 [facility] 11-16-2024 10:29-0400 Systolic blood pressure 124 mm[Hg] Pfo 3 [facility] 10-28-2024 10:41-0400 Body height 147.3 cm Will Cuadra MD Work Phone: [facility] 10-28-2024 10:41-0400 Body mass index (BMI) [Ratio] 19.78 kg/m2 Will Cuadra MD Work Phone: [facility] 10-28-2024 10:41-0400 Body temperature 98.01 [degF] Will Cuadra MD Work Phone: [facility] 10-28-2024 10:41-0400 Body weight 42.91 kg Will Cuadra MD Work Phone: [facility] 10-28-2024 10:41-0400 Diastolic blood pressure 72 mm[Hg] Will Cuadra MD Work Phone: [facility] 10-28-2024 10:41-0400 Heart rate 57 /min Will Cuadra MD Work Phone: [facility] 10-28-2024 10:41-0400 Respiratory rate 16 /min Will Cuadra MD Work Phone: [facility] 10-28-2024 10:41-0400 SaO2% (BldA) [Mass fraction] 98 % Will Cuadra MD Work Phone: [facility] 10-28-2024 10:41-0400 Systolic blood pressure 128 mm[Hg] Will Cuadra MD Work Phone: [facility] 10-19-2024 10:39-0400 Body height 147.3 cm Pfo 3 [facility] 10-19-2024 10:39-0400 Body mass index (BMI) [Ratio] 19.94 kg/m2 Pfo 3 [facility] 10-19-2024 10:39-0400 Body temperature 97.7 [degF] Pfo 3 [facility] 10-19-2024 10:39-0400 Body weight 43.27 kg Pfo 3 [facility] 10-19-2024 10:39-0400 Diastolic blood pressure 70 mm[Hg] Pfo 3 [facility] 10-19-2024 10:39-0400 Heart rate 53 /min Pfo 3 [facility] 10-19-2024 10:39-0400 Respiratory rate 16 /min Pfo 3 [facility] 10-19-2024 10:39-0400 SaO2% (BldA) [Mass fraction] 99 % Pfo 3 [facility] 10-19-2024 10:39-0400 Systolic blood pressure 124 mm[Hg] Pfo 3 [facility] 09-21-2024 10:44-0400 Body height 147.3 cm Pfo 3 [facility] 09-21-2024 10:44-0400 Body mass index (BMI) [Ratio] 20.49 kg/m2 Pfo 3 [facility] 09-21-2024 10:44-0400 Body temperature 98.01 [degF] Pfo 3 [facility] 09-21-2024 10:44-0400 Body weight 44.45 kg Pfo 3 [facility] 09-21-2024 10:44-0400 Diastolic blood pressure 68 mm[Hg] Pfo 3 [facility] 09-21-2024 10:44-0400 Heart rate 55 /min Pfo 3 [facility] 09-21-2024 10:44-0400 Respiratory rate 16 /min Pfo 3 [facility] 09-21-2024 10:44-0400 SaO2% (BldA) [Mass fraction] 96 % Pfo 3 [facility] 09-21-2024 10:44-0400 Systolic blood pressure 140 mm[Hg] Pfo 3 [facility] 09-14-2024 13:24-0400 Body height 144.8 cm Boone Ewing MD Work Phone: [facility] 09-14-2024 13:24-0400 Body mass index (BMI) [Ratio] 20.99 kg/m2 Boone Ewing MD Work Phone: [facility] 09-14-2024 13:24-0400 Body temperature 97.81 [degF] Boone Ewing MD Work Phone: [facility] 09-14-2024 13:24-0400 Body weight 44 kg Boone Ewing MD Work Phone: [facility] 09-14-2024 13:24-0400 Diastolic blood pressure 56 mm[Hg] Boone Ewing MD Work Phone: [facility] 09-14-2024 13:24-0400 Heart rate 50 /min Boone Ewing MD Work Phone: [facility] 09-14-2024 13:24-0400 Respiratory rate 20 /min Boone Ewing MD Work Phone: [facility] 09-14-2024 13:24-0400 SaO2% (BldA) [Mass fraction] 96 % Boone Ewing MD Work Phone: [facility] 09-14-2024 13:24-0400 Systolic blood pressure 132 mm[Hg] Boone Ewing MD Work Phone: [facility] 08-24-2024 10:40-0400 Body height 147.3 cm Pfo 3 [facility] 08-24-2024 10:40-0400 Body mass index (BMI) [Ratio] 20.53 kg/m2 Pfo 3 [facility] 08-24-2024 10:40-0400 Body temperature 97.81 [degF] Pfo 3 [facility] 08-24-2024 10:40-0400 Body weight 44.54 kg Pfo 3 [facility] 08-24-2024 10:40-0400 Diastolic blood pressure 69 mm[Hg] Pfo 3 [facility] 08-24-2024 10:40-0400 Heart rate 59 /min Pfo 3 [facility] 08-24-2024 10:40-0400 Respiratory rate 16 /min Pfo 3 [facility] 08-24-2024 10:40-0400 SaO2% (BldA) [Mass fraction] 98 % Pfo 3 [facility] 08-24-2024 10:40-0400 Systolic blood pressure 144 mm[Hg] Pfo 3 [facility] 07-27-2024 10:40-0400 Body height 147.3 cm Pfo 3 [facility] 07-27-2024 10:40-0400 Body mass index (BMI) [Ratio] 20.36 kg/m2 Pfo 3 [facility] 07-27-2024 10:40-0400 Body temperature 97.81 [degF] Pfo 3 [facility] 07-27-2024 10:40-0400 Body weight 44.18 kg Pfo 3 [facility] 07-27-2024 10:40-0400 Diastolic blood pressure 77 mm[Hg] Pfo 3 [facility] 07-27-2024 10:40-0400 Heart rate 59 /min Pfo 3 [facility] 07-27-2024 10:40-0400 Respiratory rate 18 /min Pfo 3 [facility] 07-27-2024 10:40-0400 SaO2% (BldA) [Mass fraction] 97 % Pfo 3 [facility] 07-27-2024 10:40-0400 Systolic blood pressure 158 mm[Hg] Pfo 3 [facility] 07-22-2024 11:06-0400 Body height 147.3 cm Will Cuadra MD Work Phone: [facility] 07-22-2024 11:06-0400 Body mass index (BMI) [Ratio] 20.57 kg/m2 Will Cuadra MD Work Phone: [facility] 07-22-2024 11:06-0400 Body temperature 98.01 [degF] Will Cuadra MD Work Phone: [facility] 07-22-2024 11:06-0400 Body weight 44.63 kg Will Cuadra MD Work Phone: [facility] 07-22-2024 11:06-0400 Diastolic blood pressure 71 mm[Hg] Will Cuadra MD Work Phone: [facility] 07-22-2024 11:06-0400 Heart rate 65 /min Will Cuadra MD Work Phone: [facility] 07-22-2024 11:06-0400 Respiratory rate 16 /min Will Cuadra MD Work Phone: [facility] 07-22-2024 11:06-0400 SaO2% (BldA) [Mass fraction] 96 % Will Cuadra MD Work Phone: [facility] 07-22-2024 11:06-0400 Systolic blood pressure 153 mm[Hg] Will Cuadra MD Work Phone: [facility] 06-29-2024 10:28-0400 Body height 147.3 cm Pfo 3 [facility] 06-29-2024 10:28-0400 Body mass index (BMI) [Ratio] 20.36 kg/m2 Pfo 3 [facility] 06-29-2024 10:28-0400 Body temperature 97.9 [degF] Pfo 3 [facility] 06-29-2024 10:28-0400 Body weight 44.18 kg Pfo 3 [facility] 06-29-2024 10:28-0400 Diastolic blood pressure 73 mm[Hg] Pfo 3 [facility] 06-29-2024 10:28-0400 Heart rate 66 /min Pfo 3 [facility] 06-29-2024 10:28-0400 Respiratory rate 18 /min Pfo 3 [facility] 06-29-2024 10:28-0400 SaO2% (BldA) [Mass fraction] 98 % Pfo 3 [facility] 06-29-2024 10:28-0400 Systolic blood pressure 166 mm[Hg] Pfo 3 [facility] 06-09-2024 10:25-0500 Body mass index (BMI) [Ratio] 20.99 kg/m2 Boone Ewing MD Work Phone: [facility] 06-09-2024 10:25-0500 Body temperature 97.7 [degF] Boone Ewing MD Work Phone: [facility] 06-09-2024 10:25-0500 Body weight 44 kg Boone wEing MD Work Phone: [facility] 06-09-2024 10:25-0500 Diastolic blood pressure 78 mm[Hg] Boone Ewing MD Work Phone: [facility] 06-09-2024 10:25-0500 Heart rate 54 /min Boone Ewing MD Work Phone: [facility] 06-09-2024 10:25-0500 SaO2% (BldA) [Mass fraction] 94 % Boone Ewing MD Work Phone: [facility] 06-09-2024 10:25-0500 Systolic blood pressure 140 mm[Hg] Boone Ewing MD Work Phone: [facility] 06-01-2024 10:58-0500 Body height 147.3 cm Pfo 3 [facility] 06-01-2024 10:58-0500 Body mass index (BMI) [Ratio] 20.53 kg/m2 Pfo 3 [facility] 06-01-2024 10:58-0500 Body temperature 98.01 [degF] Pfo 3 [facility] 06-01-2024 10:58-0500 Body weight 44.54 kg Pfo 3 [facility] 06-01-2024 10:58-0500 Diastolic blood pressure 65 mm[Hg] Pfo 3 [facility] 06-01-2024 10:58-0500 Heart rate 58 /min Pfo 3 [facility] 06-01-2024 10:58-0500 Respiratory rate 18 /min Pfo 3 [facility] 06-01-2024 10:58-0500 SaO2% (BldA) [Mass fraction] 100 % Pfo 3 [facility] 06-01-2024 10:58-0500 Systolic blood pressure 150 mm[Hg] Pfo 3 [facility] 05-09-2024 11:47-0500 Body height 144.8 cm Boone Ewing MD Work Phone: [facility] 05-09-2024 11:47-0500 Body mass index (BMI) [Ratio] 20.99 kg/m2 Boone Ewing MD Work Phone: [facility] 05-09-2024 11:47-0500 Body temperature 97.5 [degF] Boone Ewing MD Work Phone: [facility] 05-09-2024 11:47-0500 Body weight 44 kg Boone Ewing MD Work Phone: [facility] 05-09-2024 11:47-0500 Diastolic blood pressure 68 mm[Hg] Boone Ewing MD Work Phone: [facility] 05-09-2024 11:47-0500 Heart rate 65 /min Boone Ewing MD Work Phone: [facility] 05-09-2024 11:47-0500 Respiratory rate 20 /min Boone Ewing MD Work Phone: [facility] 05-09-2024 11:47-0500 SaO2% (BldA) [Mass fraction] 97 % Boone Ewing MD Work Phone: [facility] 05-09-2024 11:47-0500 Systolic blood pressure 122 mm[Hg] Boone Ewing MD Work Phone: [facility] 05-04-2024 11:03-0500 Body height 147.3 cm Pfo 7 [facility] 05-04-2024 11:03-0500 Body mass index (BMI) [Ratio] 20.45 kg/m2 Pfo 7 [facility] 05-04-2024 11:03-0500 Body temperature 97.5 [degF] Pfo 7 [facility] 05-04-2024 11:03-0500 Body weight 44.36 kg Pfo 7 [facility] 05-04-2024 11:03-0500 Diastolic blood pressure 77 mm[Hg] Pfo 7 [facility] 05-04-2024 11:03-0500 Heart rate 75 /min Pfo 7 [facility] 05-04-2024 11:03-0500 Respiratory rate 20 /min Pfo 7 [facility] 05-04-2024 11:03-0500 SaO2% (BldA) [Mass fraction] 99 % Pfo 7 [facility] 05-04-2024 11:03-0500 Systolic blood pressure 141 mm[Hg] Pfo 7 [facility] 04-22-2024 10:49-0500 Body height 147.3 cm Will Cuadra MD Work Phone: [facility] 04-22-2024 10:49-0500 Body mass index (BMI) [Ratio] 20.91 kg/m2 Will Cuadra MD Work Phone: [facility] 04-22-2024 10:49-0500 Body temperature 97.59 [degF] Will Cuadra MD Work Phone: [facility] 04-22-2024 10:49-0500 Body weight 45.36 kg Will Cuadra MD Work Phone: [facility] 04-22-2024 10:49-0500 Diastolic blood pressure 100 mm[Hg] Will Cuadra MD Work Phone: [facility] 04-22-2024 10:49-0500 Heart rate 73 /min Will Cuadra MD Work Phone: [facility] 04-22-2024 10:49-0500 Respiratory rate 20 /min Will Cuadra MD Work Phone: [facility] 04-22-2024 10:49-0500 SaO2% (BldA) [Mass fraction] 98 % Will Cuadra MD Work Phone: [facility] 04-22-2024 10:49-0500 Systolic blood pressure 144 mm[Hg] Will Cuadra MD Work Phone: [facility] 04-19-2024 09:50-0500 Body height 147.3 cm Julianne Stewart PA-C Work Phone: [facility] 04-19-2024 09:50-0500 Body mass index (BMI) [Ratio] 20.9 kg/m2 Julianne Mici PA-C [facility] Phone[facility] 04-19-2024 09:50-0500 Body weight 45.36 kg Julianne Mici PA-C Work Phone: [facility] 04-19-2024 09:50-0500 Diastolic blood pressure 84 mm[Hg] Julianne Mici PA-C Work Phone: [facility] [employer] 04-19-2024 09:50-0500 Heart rate 87 /min Julianne Mici PA-C Work Phone: [facility] [employer] 04-19-2024 09:50-0500 SaO2% (BldA) [Mass fraction] 95 % Julianne Mici PA-C Work Phone: [facility] [employer] 04-19-2024 09:50-0500 Systolic blood pressure 134 mm[Hg] Julianne Mici PA-C Work Phone: [facility] [employer] [facility] 04-13-2024 10:32-0500 Body height 148 cm Pfo 7 [facility] 04-13-2024 10:32-0500 Body mass index (BMI) [Ratio] 20.94 kg/m2 Pfo 7 [facility] [employer] [facility] 04-13-2024 10:32-0500 Body temperature 97.39 [degF] Pfo 7 [facility] 04-13-2024 10:32-0500 Body weight 45.87 kg Pfo 7 [facility] 04-13-2024 10:32-0500 Diastolic blood pressure 77 mm[Hg] Pfo 7 [facility] [employer] [facility] 04-13-2024 10:32-0500 Heart rate 71 /min Pfo 7 [facility] 04-13-2024 10:32-0500 Respiratory rate 18 /min Pfo 7 [facility] 04-13-2024 10:32-0500 SaO2% (BldA) [Mass fraction] 100 % Pfo 7 [facility] 01-08-2025 10:32-0500 Systolic blood pressure 135 mm[Hg] Pfo 7 [facility] 03-10-2024 14:14-0500 Body height 144.8 cm Boone Ewing MD Work Phone: [facility] 03-10-2024 14:14-0500 Body mass index (BMI) [Ratio] 22.07 kg/m2 Boone Ewing MD Work Phone: [facility] 03-10-2024 14:14-0500 Body temperature 97.11 [degF] Boone Ewing MD Work Phone: [facility] 03-10-2024 14:14-0500 Body weight 46.27 kg Boone Ewing MD Work Phone: [facility] 03-10-2024 14:14-0500 Diastolic blood pressure 60 mm[Hg] Boone Ewing MD Work Phone: [facility] 03-10-2024 14:14-0500 Heart rate 48 /min Boone Ewing MD Work Phone: [facility] 03-10-2024 14:14-0500 Respiratory rate 20 /min Boone Ewing MD Work Phone: [facility] 03-10-2024 14:14-0500 SaO2% (BldA) [Mass fraction] 97 % Boone Ewing MD Work Phone: [facility] 03-10-2024 14:14-0500 Systolic blood pressure 110 mm[Hg] Boone Ewing MD Work Phone: [facility] 03-02-2024 10:43-0500 Body height 148 cm Pfo 7 [facility] 03-02-2024 10:43-0500 Body mass index (BMI) [Ratio] 21.16 kg/m2 Pfo 7 [facility] 03-02-2024 10:43-0500 Body temperature 98.1 [degF] Pfo 7 [facility] 03-02-2024 10:43-0500 Body weight 46.36 kg Pfo 7 [facility] 03-02-2024 10:43-0500 Diastolic blood pressure 71 mm[Hg] Pfo 7 [facility] 03-02-2024 10:43-0500 Heart rate 60 /min Pfo 7 [facility] 03-02-2024 10:43-0500 Respiratory rate 18 /min Pfo 7 [facility] 03-02-2024 10:43-0500 SaO2% (BldA) [Mass fraction] 99 % Pfo 7 [facility] 03-02-2024 10:43-0500 Systolic blood pressure 148 mm[Hg] Pfo 7 [facility] 02-10-2024 10:45-0500 Diastolic blood pressure 68 mm[Hg] Pfo 7 [facility] 02-10-2024 10:45-0500 Heart rate 60 /min Pfo 7 [facility] 02-10-2024 10:45-0500 Respiratory rate 16 /min Pfo 7 [facility] 02-10-2024 10:45-0500 SaO2% (BldA) [Mass fraction] 96 % Pfo 7 [facility] 02-10-2024 10:45-0500 Systolic blood pressure 154 mm[Hg] Pfo 7 [facility] 02-10-2024 10:02-0500 Body height 148 cm Pfo 7 [facility] 02-10-2024 10:02-0500 Body mass index (BMI) [Ratio] 21.12 kg/m2 Pfo 7 [facility] 02-10-2024 10:02-0500 Body temperature 97.9 [degF] Pfo 7 [facility] 02-10-2024 10:02-0500 Body weight 46.27 kg Pfo 7 [facility] 01-22-2024 10:12-0400 Body height 148 cm Will Cuadra MD Work Phone: [facility] 01-22-2024 10:12-0400 Body mass index (BMI) [Ratio] 21.74 kg/m2 Will Cuadra MD Work Phone: [facility] 01-22-2024 10:12-0400 Body temperature 98.4 [degF] Will Cuadra MD Work Phone: [facility] [employer] [facility] 01-22-2024 10:12-0400 Body weight 47.63 kg Will Cuadra MD Work Phone: [facility] [employer] [facility] 01-22-2024 10:12-0400 Diastolic blood pressure 77 mm[Hg] Will Cuadra MD Work Phone: [facility] [employer] [facility] 01-22-2024 10:12-0400 Heart rate 71 /min Will Cuadra MD Work Phone: [facility] [employer] [facility] 01-22-2024 10:12-0400 Respiratory rate 16 /min Will Cuadra MD Work Phone: [facility] [employer] [facility] 01-22-2024 10:12-0400 SaO2% (BldA) [Mass fraction] 99 % Will Cuadra MD Work Phone: [facility] [employer] [facility] 01-22-2024 10:12-0400 Systolic blood pressure 172 mm[Hg] Will Cuadra MD Work Phone: [facility] [employer] [facility] 01-20-2024 10:38-0400 Body height 148 cm Pfo 7 [facility] 01-20-2024 10:38-0400 Body mass index (BMI) [Ratio] 21.79 kg/m2 Pfo 7 [facility] 01-20-2024 10:38-0400 Body temperature 97.7 [degF] Pfo 7 [facility] 01-20-2024 10:38-0400 Body weight 47.72 kg Pfo 7 [facility] 01-20-2024 10:38-0400 Diastolic blood pressure 66 mm[Hg] Pfo 7 [facility] 01-20-2024 10:38-0400 Heart rate 61 /min Pfo 7 [facility] 01-20-2024 10:38-0400 Respiratory rate 16 /min Pfo 7 [facility] 01-20-2024 10:38-0400 SaO2% (BldA) [Mass fraction] 98 % Pfo 7 [facility] 01-20-2024 10:38-0400 Systolic blood pressure 164 mm[Hg] Pfo 7 [facility] 12-30-2023 10:46-0400 Body height 148 cm Pfo 7 [facility] 12-30-2023 10:46-0400 Body mass index (BMI) [Ratio] 21.54 kg/m2 Pfo 7 [facility] 12-30-2023 10:46-0400 Body temperature 97.59 [degF] Pfo 7 [facility] 12-30-2023 10:46-0400 Body weight 47.17 kg Pfo 7 [facility] 12-30-2023 10:46-0400 Diastolic blood pressure 66 mm[Hg] Pfo 7 [facility] 12-30-2023 10:46-0400 Heart rate 62 /min Pfo 7 [facility] 12-30-2023 10:46-0400 Respiratory rate 16 /min Pfo 7 [facility] 12-30-2023 10:46-0400 SaO2% (BldA) [Mass fraction] 98 % Pfo 7 [facility] 12-30-2023 10:46-0400 Systolic blood pressure 160 mm[Hg] Pfo 7 [facility] 12-09-2023 11:55-0400 Diastolic blood pressure 65 mm[Hg] Pfo 6 [facility] 12-09-2023 11:55-0400 Heart rate 56 /min Pfo 6 [facility] 12-09-2023 11:55-0400 Respiratory rate 16 /min Pfo 6 [facility] 12-09-2023 11:55-0400 SaO2% (BldA) [Mass fraction] 94 % Pfo 6 [facility] 12-09-2023 11:55-0400 Systolic blood pressure 151 mm[Hg] Pfo 6 [facility] 12-09-2023 10:44-0400 Body height 148 cm Pfo 6 [facility] 12-09-2023 10:44-0400 Body mass index (BMI) [Ratio] 21.95 kg/m2 Pfo 6 [facility] 12-09-2023 10:44-0400 Body temperature 97.9 [degF] Pfo 6 [facility] 12-09-2023 10:44-0400 Body weight 48.08 kg Pfo 6 [facility] 11-13-2023 11:23-0400 Body height 148 cm Will Cuadra MD Work Phone: [facility] 11-13-2023 11:23-0400 Body mass index (BMI) [Ratio] 21.95 kg/m2 Will Cuadra MD Work Phone: [facility] 11-13-2023 11:23-0400 Body temperature 98.49 [degF] Will Cuadra MD Work Phone: [facility] 11-13-2023 11:23-0400 Body weight 48.08 kg Will Cuadra MD Work Phone: [facility] 11-13-2023 11:23-0400 Diastolic blood pressure 76 mm[Hg] Will Cuadra MD Work Phone: [facility] 11-13-2023 11:23-0400 Heart rate 66 /min Will Cuadra MD Work Phone: [facility] 11-13-2023 11:23-0400 Respiratory rate 16 /min Will Cuadra MD Work Phone: [facility] 11-13-2023 11:23-0400 SaO2% (BldA) [Mass fraction] 98 % Will Cuadra MD Work Phone: [facility] 11-13-2023 11:23-0400 Systolic blood pressure 147 mm[Hg] Will Cuadra MD Work Phone: [facility] 04-10-2023 14:14-0500 Body height 152.4 cm Jan Reyes MD Work Phone: [facility] 04-10-2023 14:14-0500 Body mass index (BMI) [Ratio] 21.87 kg/m2 Jan Reyes MD Work Phone: [facility] 04-10-2023 14:14-0500 Body weight 50.8 kg Jan Reyes MD Work Phone: [employer] 04-10-2023 14:14-0500 Diastolic blood pressure 80 mm[Hg] Jan Reyes MD Work Phone: [employer] 04-10-2023 14:14-0500 Heart rate 84 /min Jan Reyes MD Work Phone: [employer] 04-10-2023 14:14-0500 SaO2% (BldA) [Mass fraction] 91 % Jan [facility] MD [facility] 04-10-2023 14:14-0500 Systolic blood pressure 130 mm[Hg] Jan Reyes MD Work Phone: [facility] [employer] Encounters Encounter Date Encounter Type Care Provider Facility Start: 12-14-2024 End: 12-14-2024 ambulatory Pfo Infusion Chair 3 Carey Loza [facility] - Medical Oncology Comment on above: 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) (Primary Dx); Right breast cancer with T3 tumor, >5 cm in greatest dimension (CMS-HCC) Start: 12-13-2024 ambulatory SOLIS Mable CUADRA [facility] Start: 12-12-2024 End: 12-12-2024 ambulatory Boone Ewing MD Work Phone: [facility] Work Phone: Start: 12-12-2024 End: 12-12-2024 Patient encounter procedure Boone Ewing MD -[facility] Work Phone: Start: 11-16-2024 End: 11-16-2024 Orders Only Nia Palm [facility] - Medical Oncology Comment on above: 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) (Primary Dx); Right breast cancer with T3 tumor, >5 cm in greatest dimension (CMS-HCC); Encounter for monitoring cardiotoxic drug therapy 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) (Primary Dx); Right breast cancer with T3 tumor, >5 cm in greatest dimension (CMS-HCC) Start: 11-15-2024 ambulatory WILL CUADRA [facility] Start: 11-02-2024 End: 11-02-2024 Refill Will Cuadra MD Work Phone: Carey Hernandez [facility] Oncology Comment on above: Right breast cancer with T3 tumor, >5 cm in greatest dimension (CMS-HCC) Start: 10-28-2024 End: 10-28-2024 Documentation procedure Alvarez Bonner [facility] Medical [facility]cology Start: 10-28-2024 End: 10-28-2024 Office outpatient visit 25 minutes Will Cuadra MD Work Phone: Carey Hernandez [facility] Comment on above: 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) (Primary Dx); Right breast cancer with T3 tumor, >5 cm in greatest dimension (CMS-HCC); Encounter for monitoring cardiotoxic drug therapy; Chemotherapy induced diarrhea Start: 10-28-2024 End: 10-28-2024 ambulatory WILL CUADRA [facility] Start: 10-19-2024 End: 10-19-2024 Clinis[facility] Result Encounter Generic External Data Provider [facility] External Department Unsolicited Start: 10-19-2024 End: 10-19-2024 Clinisync Result Encounter Generic External Data Provider [facility] External Department Unsolicited Start: 10-19-2024 End: 10-19-2024 ambulatory Pfo Infusion Chair 3 Carey [facility] [facility] Comment on above: 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) (Primary Dx); Right breast cancer with T3 tumor, >5 cm in greatest dimension (CMS-HCC) Start: 10-18-2024 ambulatory NICOLETTE Garcia CASANDRA [facility] Start: 10-12-2024 End: 10-12-2024 Orders Only Will Cuadra MD Work Phone: [facility] Hematology Oncology, A Department of [facility] Start: 09-21-2024 End: 09-21-2024 ambulatory Pfo Infusion Chair 3 Carey Hernandez [facility] Medical Oncology Comment on above: 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) (Primary Dx); Right breast cancer with T3 tumor, >5 cm in greatest dimension (CMS-HCC) Start: 09-20-2024 ambulatory NICOLETTE Zelaya CASANDRA [facility] Start: 09-14-2024 End: 09-14-2024 Bamboo flowsheet Boone Ewing MD Work Phone: [facility] Start: 09-14-2024 End: 09-14-2024 Bamboo flowsheet Boone Ewing MD Work Phone: [facility] CW FM Start: 09-14-2024 End: 09-14-2024 ambulatory BOONE EWING Not Available Start: 09-14-2024 End: 09-14-2024 Patient encounter procedure Boone Ewing MD Work Phone: [facility] Healthcare Work Phone: Start: 09-14-2024 End: 09-14-2024 Postop follow up visit related to original px Boone Ewing MD Work Phone: [facility] FM Comment on above: Medicare annual well ness visit, subsequent (Primary Dx); Hypothyroidism, adult (CMS/HCC); Invasive ductal carcinoma of breast, female, right; Dyslipidemia (CMS/HCC) Start: 08-30-2024 End: 08-30-2024 Orders Only Boone Ewing MD Work Phone: [facility] FM Comment on above: Urinary tract infect ion without hematuria, site unspecified Start: 08-24-2024 End: 08-25-2024 ambulatory Pfo Infusion Chair 3 Carey Hernandez [facility] - Medical Oncology Comment on above: 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) (Primary Dx); Right breast cancer with T3 tumor, >5 cm in greatest dimension (CMS-HCC); Encounter for monitoring cardiotoxic drug therapy; Chemotherapy induced diarrhea Start: 08-23-2024 ambulatory WILL CUADRA [facility] Start: 07-27-2024 End: 07-27-2024 ambulatory Pfo Infusion Chair 3 Carey Hernandez [facility] - Medical Oncology Comment on above: HER2-positive carcin tony of right breast ([facility]-HCC) (Primary Dx); Right breast cancer with T3 tumor, >5 cm in greatest dimension ([facility]-HCC) Start: 07-26-2024 End: 07-26-2024 ambulatory [facility] Start: 07-22-2024 End: 07-22-2024 Orders Only Will Cuadra MD Work Phone: [facility] Hernandez [facility] Start: 07-22-2024 End: 07-22-2024 Office outpatient visit 25 minutes Will Cuadra MD Work Phone: Carey Hernandez [facility] Medical Oncology Comment on above: Right breast cancer with T3 tumor, >5 cm in greatest dimension ([facility]-HCC) (Primary Dx); HER2-positive carcinoma of right breast ([facility]-H[facility]); Chemotherapy induced diarrhea Start: 07-06-2024 End: 07-11-2024 Clinisync Result Encounter Generic External Data Provider [facility] External Department Unsolicited Start: 07-06-2024 End: 07-11-2024 Clinisync Result Encounter Generic External Data Provider [facility] External Department Unsolicited Start: 07-05-2024 End: 07-05-2024 ambulatory [facility] Start: 07-01-2024 End: 07-01-2024 Refill Boone Ewing MD Work Phone: [facility] Comment on above: Overactive bladder Start: 06-29-2024 ambulatory BOONE EWING [facility] Start: 06-29-2024 End: 06-29-2024 ambulatory Pfo Infusion Chair 3 Carey Hernandez [facility] - Medical Oncology Comment on above: 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) (Primary Dx); Right breast cancer with T3 tumor, >5 cm in greatest dimension ([facility]) Start: 06-28-2024 End: 06-28-2024 ambulatory [facility] Start: 06-22-2024 End: 06-22-2024 Orders Only Will Cuadra MD Work Phone: [facility] Hematology Oncology, A Department of [facility] Start: 06-09-2024 End: 06-09-2024 [facility] flow[facility] Boone Ewing MD Work Phone: [facility] Start: 06-09-2024 End: 06-09-2024 Bamboo flowsheet Boone Ewing MD Work Phone: [facility] Start: 06-09-2024 End: 06-09-2024 Office outpatient visit 15 minutes Boone Ewing MD Work Phone: [facility] FM Comment on above: Major depressive dis order, recurrent, moderate (CMS/HCC) (Primary Dx); Lumbar spondylosis; Malignant neoplasm of upper-outer quadrant of right breast in female, estrogen receptor positive (CMS/HCC); Rheumatoid arthritis involving multiple joints (CMS/HCC); Chronic heart failure with preserved ejection fraction (HFpEF) (CMS/HCC) Start: 06-09-2024 End: 06-09-2024 ambulatory BOONE EWING Not Available Start: 06-07-2024 End: 06-07-2024 ambulatory JAN Booker [facility] Start: 06-01-2024 End: 06-01-2024 Orders Only Nia hernandez [place] - Medical Oncology Comment on above: 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) (Primary Dx); Encounter for monitoring cardiotoxic drug therapy 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) (Primary Dx); Right breast cancer with T3 tumor, >5 cm in greatest dimension (CMS-HCC) Start: 05-31-2024 End: 05-31-2024 ambulatory WILL CUADRA [facility] Start: 05-12-2024 End: 05-12-2024 Clinisync Result Encounter Boone Ewing MD Work Phone: [facility] External Department Unsolicited Start: 05-12-2024 End: 05-12-2024 Clinisync Result Encounter Boone Ewing MD Work Phone: [facility] External Department Unsolicited Start: 05-09-2024 End: 05-09-2024 ambulatory BOONE EWING Not Available Start: 05-09-2024 End: 05-09-2024 Office outpatient visit 25 minutes Boone Ewing MD Work Phone: [facility] Comment on above: 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 Medical Oncology Comment on above: 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) (Primary Dx); Right breast cancer with T3 tumor, >5 cm in greatest dimension (CMS-HCC) Start: 04-22-2024 End: 04-22-2024 [facility] Comment on above: 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) (Primary Dx); Right breast cancer with T3 tumor, >5 cm in greatest dimension ([facility]) Start: 04-19-2024 End: 04-19-2024 [facility] Work Phone: [facility] Comment on above: ASCVD (arteriosclero tic cardiovascular disease) (Primary Dx); Right breast cancer with T3 tumor, >5 cm in greatest dimension (CMS-HCC) Start: 04-19-2024 End: 04-19-[address] [facility] Start: 04-18-2024 End: 04-18-2024 Telephone encounter Kalyani Cabrales CMA [facility] Start: 04-13-2024 End: 04-13-2024 ambulatory Pfo Infusion Chair 7 Carey Hernandez [facility] - Medical Oncology Comment on above: 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) (Primary Dx); Right breast cancer with T3 tumor, >5 cm in greatest dimension (CMS-HCC) Start: 04-12-2024 End: 04-12-2024 ambulatory SOLIS Mable [facility] Start: 03-23-2024 End: 03-23-2024 ambulatory BOONE EWING [facility] Start: 03-22-2024 End: 03-22-2024 ambulatory [facility] Start: 03-16-2024 End: 03-16-2024 ambulatory Jan Solares Facility:[facility] Start: 03-10-2024 End: 03-10-2024 ambulatory BOONE EWING [...] ambulatory Pfo Infusion Chair 7 Carey Hernandez [facility] - Medical Oncology Comment on above: 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) (Primary Dx); Right breast cancer with T3 tumor, >5 cm in greatest dimension (CMS-HCC) Start: 03-01-2024 End: 03-01-2024 ambulatory [facility] Start: 02-24-2024 End: 02-24-2024 Orders Only Will Cuadra MD Work Phone: [facility] Start: 02-11-2024 End: 02-11-2024 Refill Carin Brady Work Phone: [facility] Comment on above: Age-related osteopor osis without current pathological fracture (CMS/HCC) Start: 02-10-2024 End: 02-10-2024 ambulatory Pfo Infusion Chair 7 Carey Hernandez [facility] Medical Oncology Comment on above: HER2-positive carcin tony of right breast ([facility]) (Primary Dx); Right breast cancer with T3 tumor, >5 cm in greatest dimension ([facility]) Start: 02-09-2024 End: 02-09-2024 [facility] Start: 01-22-2024 End: 01-22-2024 Documentation procedure Nia Bonner [facility] Medical Oncology Start: 01-22-2024 End: 01-22-2024 Office outpatient visit 40 minutes Will Cuadra MD Work Phone: Carey Hernandez [facility] Medical Oncology Comment on above: 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) (Primary Dx); Right breast cancer with T3 tumor, >5 cm in greatest dimension ([facility]) Start: 01-22-2024 End: 01-22-2024 [facility] Start: 01-20-2024 End: 01-20-2024 ambulatory Pfo Infusion Chair 7 Carey Hernandez [facility] Medical Oncology Comment on above: HER2-positive carcin tony of right breast ([facility]-H[facility]) (Primary Dx); Encounter for monitoring cardiotoxic drug therapy; Right breast cancer with T3 tumor, >5 cm in greatest dimension ([facility]) Start: 01-19-2024 End: 01-19-2024 [facility] Start: 12-30-2023 End: 12-30-2023 ambulatory Pfo Infusion Chair 7 Carey Hernandez [facility] Oncology Comment on above: 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) (Primary Dx); Right breast cancer with T3 tumor, >5 cm in greatest dimension (CMS-HCC) Start: 12-29-2023 End: 12-29-2023 ambulatory BOONE EWING [facility] Start: 12-23-2023 End: 12-23-2023 Orders Only Will Cuadra MD Work Phone: [facility] Start: 12-09-2023 End: 12-09-2023 ambulatory Pfo Infusion Chair 6 Carey L David [facility] On[facility] Comment on above: 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) (Primary Dx); Right breast cancer with T3 tumor, >5 cm in greatest dimension (CMS-HCC) Start: 12-02-2023 End: 12-02-2023 Orders Only Nia Palm [facility] Oncology Start: 11-19-2023 End: 11-19-2023 [facility] Comment on above: Right breast cancer with T3 tumor, >5 cm in greatest dimension ([facility]) (Primary Dx); HER2-positive carcinoma of right breast (CMS-HCC); Encounter for monitoring cardiotoxic drug therapy Start: 11-18-2023 End: 11-18-2023 Orders Only Nia Palm [facility] Oncology Comment on above: Right breast cancer with T3 tumor, >5 cm in greatest dimension ([facility]) (Primary Dx) Start: 11-13-2023 End: 11-13-2023 Documentation procedure Nia norman [facility] Oncology Start: 11-13-2023 End: 11-13-2023 Office outpatient visit 40 minutes Will Cuadra MD Work Phone: Carey Hernandez [facility] Oncology Comment on above: Right breast cancer with T3 tumor, >5 cm in greatest dimension ([facility]) (Primary Dx) Start: 11-12-2023 End: 11-12-2023 Chart abstracting Will Cuadra MD Work Phone: Carey Kelli [facility] - Medical Oncology Start: 11-11-2023 End: 11-11-2023 ambulatory BOONE EWING Not Available Start: 11-03-2023 End: 12-15-2023 External Result Encounter Booen Ewing MD Work Phone: [facility] External Department Unsolicited Start: 11-03-2023 End: 12-15-2023 External Result Encounter Boone Ewing MD Work Phone: [facility] External Department Unsolicited Start: 11-03-2023 End: 11-03-2023 ambulatory Boone Ewing [facility] Work Phone: Start: 11-03-2023 End: 11-03-2023 Departed Referred MD Boone Ewing Work Phone: [facility] Start: 10-28-2023 End: 10-28-2023 ambulatory BOONE EWING Not Available Start: 09-22-2023 End: 09-22-2023 ambulatory BOONE EWING Not Available Start: 04-10-2023 End: 04-10-2023 Office outpatient visit 25 minutes Jan Reyes MD Work Phone: [facility] Comment on above: 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); Dyslipidemia; Primary hypertension Start: 04-09-[address] [facility] Start: 03-25-2022 End: 03-25-[address] BOONE EWING Facility:[facility] Start: 02-12-2022 End: 02-12-2022 ambulatory DO Carin Ade Brady Work Phone: [facility] Work Phone: Start: 02-12-2022 End: 02-12-2022 Patient encounter procedure DO Carinkrystian Brady Work Phone: [facility]-Lab [address] Start: 02-10-2022 End: 02-10-[address] BOONE EWING Facility:[facility] Start: 01-08-2022 End: 01-09-[address] JAN SOLARES Facility:[facility] Start: 12-12-2021 End: 12-12-[address] BOONE EWING Facility:[facility] Start: 12-10-2021 End: 01-04-[address] JAN SOLARES Facility:[facility] Start: 12-03-2021 End: 12-03-2021 Patient encounter procedure DO Carin Brady Work Phone: [facility]-XRay [address] Start: 11-13-2021 End: 12-04-[address] JAN SOLARES Facility:[facility] Start: 10-28-2021 End: 11-01-[address] JAN SOLARES Facility:[facility] Start: 10-09-2021 End: 10-09-2021 Patient encounter procedure DO Carin Brady Work Phone: [facility] [address] Procedures Date Procedure Procedure Detail Performing Clinician Start: 10-19-2024 CA ECHO DOPPLER COMPLETE Generic Externa l Data Provider Start: 07-06-2024 Echo tthrc r-t 2d w/wom-mode compl spec&colr d Generic External Data Provider Start: 05-12-2024 XR LUMBAR SPINE 2 OR 3V Boone Ewing MD Work Phone: Start: 05-09-2024 Urnls dip stick/tablet rgnt non-auto w/o micrscp Boone Ewing MD Work Phone: Start: 04-19-2024 Ecg routine ecg w/least 12 lds w/i&r Julianne Stewart PA-C Work Phone: Start: 04-19-2024 Follow-up visit Follow-up JULIANNE STEWART Start: 12-30-2023 Chemotherapy Chemotherapy BOONE EWING Start: 11-03-2023 Level i surg pathology gross examination only Not In System Ref Prov Start: 11-03-2023 PATHOLOGY REQUEST FOR LAB RAY Boone Ewing MD Work Phone: Start: 04-10-2023 Ecg routine ecg w/least 12 lds w/i&r Jan Reyes MD Work Phone: Start: 12-03-2021 Plain chest X-ray DO Carin Brady Work Phone: Start: 01-07-2021 Adult depression screening assessment Toyin Kali [employer] Start: 08-30-2020 H/O: surgery S/P nasal septoplasty Toyin Bonner MA Start: 11-26-2018 History of coronary artery bypass grafting History of coronary artery bypass graft x 2 Toyin Bass CMA H/O: hysterectomy Hx of hysterectomy Boone Ewing MD Work Phone: History of appendectomy Hx of appendectom y Boone Ewing MD Work Phone: History of coronary artery bypass grafting History of coronary artery bypass graft x 2 Jan Reyes MD Work Phone: Plan of Treatment Date Care Activity Detail Author Start: 11-16-2025 Fall Risk Screening Fall Risk Screening [facility] Start: 11-16-2025 Tobacco Screening Tobacco Screening [facility] Start: 10-28-2025 Tobacco Screening Tobacco Screening [facility] Start: 10-19-2025 Tobacco Screening Tobacco Screening [facility] Start: 09-21-2025 Fall Risk Screening Fall Risk Screening [facility] Start: 09-21-2025 Tobacco Screening Tobacco Screening [facility] Start: 09-14-2025 Medicare Annual Wellness (AWV) Medicare Annual Wellness (AWV) [facility] Start: 08-24-2025 Tobacco Screening Tobacco Screening [facility] Start: 07-27-2025 Tobacco Screening Tobacco Screening [facility] Start: 07-22-2025 Tobacco Screening Tobacco Screening [facility] Start: 06-29-2025 Tobacco Screening Tobacco Screening [facility] Start: 04-22-2025 Tobacco Screening Tobacco Screening [facility] Start: 03-23-2025 Fall Risk Screening Fall Risk Screening [facility] Start: 03-16-2025 End: 03-16-2025 Patient encounter procedure 03/16/2025 1:00 PM EST Office Visit [facility] [address] [place] [address] Boone Ewing MD [address] [place] [address] SURAJ TOUSSAINT Start: 01-21-2025 Adult BMI Screening Adult BMI Screening [facility] Start: 01-21-2025 Tobacco Screening Tobacco Screening [facility] Start: 01-19-2025 Fall Risk Screening Fall Risk Screening [facility] Start: 01-18-2025 End: 11-16-2025 Echo complete W/Strain Imaging Echo complete W/Strain Imaging Echocardiography Routine HER2-positive carcinoma of right breast (CMS-HCC) Right breast cancer with T3 tumor, >5 cm in greatest dimension (CMS-HCC) Encounter for monitoring cardiotoxic drug therapy Expected: 01/18/2025, Expires: 11/16/2025 [facility] Work Phone: Comment on above: Expected: 01/18/2025, Expires: Start: 01-18-2025 End: 01-18-2025 Patient encounter procedure 01/18/2025 10:30 AM EDT Appointment [facility] - Cardiovascular [address] [place] [phone] Will Cuadra MD [phone] [place] [id number] [facility] - Cardiovascular Start: 01-12-2025 End: 01-12-2025 ambulatory 01/12/2025 9:30 AM EDT Infusion [facility] [address] [place] [phone] Carey Hernandez [facility] Start: 01-12-2025 End: 01-12-2025 Patient encounter procedure 01/12/2025 9:00 AM EDT Office Visit Carey Hernandez [facility] [address] [place] [phone] Will Cuadra MD [phone] [place] [phone] Carey L David [facility] Start: 01-11-2025 End: 01-11-2025 ambulatory 01/11/2025 10:00 AM EDT Lab [facility] - Lab [address] [place] [address] Will Cuadra MD [address] [place] [phone] [facility] - Lab Start: 12-29-2024 Adult BMI Screening Adult BMI Screening [facility] Start: 12-29-2024 Tobacco Screening Tobacco Screening [facility] Start: 12-14-2024 End: 12-14-2024 ambulatory 12/14/2024 10:30 AM EDT Infusion Carey L David [facility] [place] [address] Carey L Terry [facility] Start: 12-13-2024 End: 12-13-2024 ambulatory 12/13/2024 10:00 AM EDT Lab [facility] - Lab [address] [place] [address] Will Cuadra MD [address] [place] [phone] [facility] - Lab Start: 12-12-2024 End: 12-12-2024 Patient encounter procedure [facility] Start: 12-08-2024 Adult BMI Screening Adult BMI Screening [facility] Start: 12-08-2024 Tobacco Screening Tobacco Screening [facility] Start: 12-06-2024 End: 12-06-2024 Patient encounter procedure 12/06/2024 10:00 AM EDT Appointment [facility] - Ultrasound [address] [place] [address] Will Cuadra MD [address] [place] [address] [facility] - Ultrasound Start: 12-05-2024 COVID-19 Vaccine (7 - Moderna risk season) COVID-19 Vaccine (7 - Moderna risk season) [facility] Start: 12-05-2024 Influenza vaccination [facility] Start: 12-05-2024 End: 10-28-2025 US Breast - right limited Ultrasound breast limited right Imaging Routine HER2-positive carcinoma of right breast (CMS-HCC) Right breast cancer with T3 tumor, >5 cm in greatest dimension ([facility]) Encounter for monitoring cardiotoxic drug therapy Chemotherapy induced diarrhea Expected: 12/05/2024, Expires: 10/28/2025 [employer] Work Phone: Comment on above: Expected: 12/05/2024, Expires: Start: 11-16-2024 End: 11-16-2024 ambulatory 11/16/2024 10:30 AM EDT Infusion Carey Pereira [facility] - Medical Oncology [address] [place] [phone] Carey Pereira [facility] - Medical Oncology Start: 11-15-2024 End: 11-15-2024 ambulatory 11/15/2024 10:00 AM EDT Lab [facility] - Lab [address] [place] [address] [facility] - Lab Start: 11-12-2024 Adult BMI Screening Adult BMI Screening [facility] Start: 11-12-2024 Tobacco Screening Tobacco Screening [facility] Start: 10-28-2024 End: 10-28-2024 Patient encounter procedure 10/28/2024 10:45 AM EDT Office Visit Carey Hernandez [facility] [address] [place] [phone] Will Cuadra MD [phone] [place] [phone] Carey Hernandez [facility] Start: 10-19-2024 End: 10-19-2024 ambulatory 10/19/2024 10:30 AM EDT Infusion Carey Hernandez [facility] [address] [place] [phone] Carey Hernandez [facility] Start: 10-18-2024 End: 10-18-2024 ambulatory 10/18/2024 10:00 AM EDT Lab [facility] - Lab [address] [place] [address] [facility] - Lab Start: 10-05-2024 End: 08-24-2025 Echo complete W/Strain Imaging Echo complete W/Strain Imaging Echocardiography Routine HER2-positive carcinoma of right breast (CMS-HCC) Right breast cancer with T3 tumor, >5 cm in greatest dimension (CMS-HCC) Encounter for monitoring cardiotoxic drug therapy Chemotherapy induced diarrhea Expected: 10/05/2024, Expires: 08/24/2025 [facility] Work Phone: Comment on above: Expected: 10/05/2024, Expires: Start: 09-21-2024 End: 09-21-2024 ambulatory 09/21/2024 10:30 AM EDT Infusion Carey Hernandez [facility] [address] [place] [phone] Carey Hernandez [facility] Start: 09-14-2024 End: 09-14-2025 Lipid 1996 panel - Serum or Plasma Lipid panel Lab Routine Dyslipidemia (CMS/HCC) Expected: 09/14/2024 (Approximate), Expires: 09/14/2025 [facility] Work Phone: Comment on above: Expected: 09/14/2024 (Approximate), Expi res: 09/14/2025 Start: 09-14-2024 End: 09-14-2025 Thyrotropin [Units/volume] in Serum or Plasma TSH Lab Routine Hypothyroidism, adult (CMS/HCC) Expected: 09/14/2024 (Approximate), Expires: 09/14/2025 [facility] Comment on above: Expected: 09/14/2024 (Approximate), Expi res: 09/14/2025 Start: 09-14-2024 End: 09-14-2025 Thyroxine (T4) free [Mass/volume] in Serum or Plasma T4, free Lab Routine Hypothyroidism, adult (CMS/HCC) Expected: 09/14/2024 (Approximate), Expires: 09/14/2025 [facility] Comment on above: Expected: 09/14/2024 (Approximate), Expi res: 09/14/2025 Start: 09-14-2024 End: 09-14-2024 Patient encounter procedure 09/14/2024 1:00 PM EDT Office Visit [facility] [address] [place] [address] Boone Ewing MD [address] [place] [address] [facility] Start: 08-24-2024 End: 08-24-2024 ambulatory 08/24/2024 10:30 AM EDT Infusion [facility] [address] [place] [phone] Carey Pereira Terry [facility] Start: 08-18-2024 COVID-19 Vaccine (7 - Moderna risk season) COVID-19 Vaccine (7 - Moderna risk season) [facility] Start: 07-27-2024 End: 07-27-2024 ambulatory 07/27/2024 10:30 AM EDT Infusion [facility] [address] [place] [phone] [facility] Start: 07-26-2024 End: 07-26-2024 Patient encounter procedure 07/26/2024 10:00 AM EDT Appointment [facility] Lab [address] [place] [address] [facility] Start: 07-22-2024 End: 07-22-2024 Patient encounter procedure 07/22/2024 11:00 AM EDT Office Visit [facility] [address] [place] [address], [place] [address] Will Cuadra MD [address] [place] [address] [facility] Start: 07-11-2024 End: 06-01-2025 Echo complete W/Strain Imaging Echo complete W/Strain Imaging Echocardiography Routine HER2-positive carcinoma of right breast (CMS-HCC) Encounter for monitoring cardiotoxic drug therapy Expected: 07/11/2024, Expires: 06/01/2025 Jose A Work Phone: Comment on above: Expected: 07/11/2024, Expires: Start: 07-05-2024 End: 07-05-2024 Patient encounter procedure 07/05/2024 1:00 PM EDT Appointment [facility] - Ultrasound [address] [place] [address] Will Cuadra MD [address] [place] [address] [facility] Ultrasound Start: 06-29-2024 End: 06-29-2024 ambulatory 06/29/2024 10:30 AM EDT Infusion [facility] [address] [place] [address], [place] [address] [facility] Start: 06-28-2024 End: 06-28-2024 Patient encounter procedure 06/28/2024 10:20 AM EDT Appointment [facility] [address] [place] [phone] [facility] Start: 06-20-2024 End: 04-22-2025 US Breast - right limited Ultrasound breast limited right Imaging Routine HER2-positive carcinoma of right breast (CMS-HCC) Right breast cancer with T3 tumor, >5 cm in greatest dimension (CMS-HCC) Expected: 06/20/2024, Expires: 04/22/2025 [facility] Work Phone: Comment on above: Expected: 06/20/2024, Expires: Start: 06-09-2024 End: 06-09-2024 Patient encounter procedure [facility] Comment on above: Arrived Start: 06-01-2024 End: 06-01-2024 ambulatory 06/01/2024 11:00 AM EST Infusion [facility] [address] [place] [address] [facility] Start: 05-09-2024 End: 05-09-2025 URINARY TRACT INFECTION (HTRX) URINARY TRACT INFECTION (HTRX) Lab Routine Dysuria Expected: 05/09/2024 (Approximate), Expires: 05/09/2025 [facility] Comment on above: Expected: 05/09/2024 (Approximate), Expi res: 05/09/2025 Start: 05-09-2024 End: 05-09-2025 XR Lumbar spine 2 or 3 Views XR lumbar spine 2 or 3 views Imaging Routine Degeneration of intervertebral disc of lumbar region with discogenic back pain and lower extremity pain Expected: 05/09/2024, Expires: 05/09/2025 [facility] Work Phone: Comment on above: Expected: 05/09/2024, Expires: Start: 05-04-2024 End: 05-04-2024 ambulatory 05/04/2024 11:00 AM EST Infusion [facility] [address] [place] [phone] Carey Pereira Terry [facility] Start: 05-03-2024 End: 05-03-2024 Patient encounter procedure 05/03/2024 11:00 AM EST Appointment [facility] [address] [place] [address] [facility] Start: 04-22-2024 End: 04-22-2024 Patient encounter procedure 04/22/2024 10:30 AM EST Office Visit [facility] [address] [place] [address] Will Cuadra MD [address] [facility] [place] [address] [facility] Start: 04-19-2024 End: 04-19-2024 Patient encounter procedure 04/19/2024 10:00 AM EST Office Visit [facility] [address] [phone] Julianne Stewart PA-C [address] [place] [address] [facility] Start: 04-15-2024 COVID-19 Vaccine ( season) COVID-19 Vaccine ( season) [facility] Start: 04-12-2024 End: 04-12-2024 Patient encounter procedure 04/12/2024 1:00 PM EST Appointment [facility] - Cardiovascular [address] [facility] [place] [address] Will Cuadra MD [address] [place] [address] [facility] Start: 04-10-2024 Adult BMI Screening Adult BMI Screening [facility] Start: 04-10-2024 Tobacco Screening Tobacco Screening [facility] Start: 03-28-2024 End: 01-21-2025 US Breast - right limited Ultrasound breast limited right Imaging Routine HER2-positive carcinoma of right breast ([facility]-HCC) Right breast cancer with T3 tumor, >5 cm in greatest dimension ([facility]-HCC) Expected: 03/28/2024, Expires: 01/21/2025 John Work Phone: Comment on above: Expected: 03/28/2024, Expires: Start: 03-23-2024 End: 03-23-2024 ambulatory 03/23/2024 11:00 AM EST Infusion Carey Pereira David [facility] [address] [place] [address] Carey L David [facility] Start: 03-22-2024 End: 03-22-2024 Patient encounter procedure 03/22/2024 9:30 AM EST Appointment [facility] [address] [place] [address] [facility] Start: 03-14-2024 End: 03-14-2024 Patient encounter procedure 03/14/2024 2:15 PM EST Office Visit [facility] [address] [place] [address] Boone Ewing MD [address] [place] [phone] [facility] Start: 03-10-2024 End: 03-10-2024 Patient encounter procedure 03/10/2024 2:00 PM EST Office Visit [facility] [address] [place] [phone] Boone Ewing MD [address] [place] [phone] [facility] Start: 03-07-2024 End: 01-19-2025 Echo complete W/Strain Imaging Echo complete W/Strain Imaging Echocardiography Routine HER2-positive carcinoma of right breast (CMS-HCC) Encounter for monitoring cardiotoxic drug therapy Expected: 03/07/2024, Expires: 01/19/2025 [facility] Work Phone: Comment on above: Expected: 03/07/2024, Expires: Start: 03-02-2024 End: 03-02-2024 ambulatory 03/02/2024 10:30 AM EST Infusion [facility] [address] [place] [address] [facility] Start: 03-01-2024 End: 03-01-2024 Patient encounter procedure 03/01/2024 10:30 AM EST Appointment [facility] [address] [place] [address] [facility] Start: 02-10-2024 End: 02-10-2024 ambulatory 02/10/2024 10:00 AM EST Infusion [facility] [address] [place] [phone] [facility] Start: 02-09-2024 End: 02-09-2024 Patient encounter procedure 02/09/2024 10:00 AM EST Appointment [facility] [address] [place] [address] [facility] Start: 01-22-2024 End: 01-22-2024 Patient encounter procedure 01/22/2024 10:15 AM EDT Office Visit [facility] [place] [place] [address] Wlil Cuadra MD [address] [place] [address] [address] [place] [address] [facility] Start: 01-20-2024 End: 01-20-2024 ambulatory 01/20/2024 10:30 AM EDT Infusion [facility] [address] [place] [address] [facility] Start: 01-19-2024 End: 01-19-2024 Patient encounter procedure 01/19/2024 10:00 AM EDT Appointment [facility] [address] [place] [address] [facility] Start: 12-30-2023 End: 12-30-2023 ambulatory 12/30/2023 10:30 AM EDT Infusion [facility] [address] [place] [address] [facility] Start: 12-29-2023 End: 12-29-2023 Patient encounter procedure 12/29/2023 10:30 AM EDT Appointment [facility] [address] [place] [address] [facility] Start: 12-11-2023 End: 12-11-2023 Patient encounter procedure 12/11/2023 8:30 AM EDT Appointment [facility] Cardiovascular [address] [place] [address] Will Cuadra MD [address] [place] [address] [address] [place], [place] [phone] [facility] Start: 12-09-2023 End: 12-09-2023 ambulatory 12/09/2023 10:30 AM EDT Infusion [facility] [address] [place] [address] [facility] Start: 12-06-2023 COVID-19 Vaccine () COVID-19 Vaccine () [facility] Start: 12-06-2023 COVID-19 Vaccine ( season) COVID-19 Vaccine () [facility] Start: 12-06-2023 Influenza vaccination [facility] Start: 11-19-2023 End: 11-18-2024 Echo complete W/Strain Imaging Echo complete W/Strain Imaging Echocardiography Routine Right breast cancer with T3 tumor, >5 cm in greatest dimension (CMS-HCC) HER2-positive carcinoma of right breast (CMS-HCC) Encounter for monitoring cardiotoxic drug therapy Expected: 11/19/2023, Expires: 11/18/2024 [facility] Work Phone: Comment on above: Expected: 11/19/2023, Expires: Start: 11-13-2023 End: 11-13-2023 Patient encounter procedure 11/13/2023 11:30 AM EDT Office Visit Carey Pereira [facility] - Medical Oncology [address] [place] [address] Will Cuadra MD [address] [place] [address] [address] [place] [address] Carey L [facility] - Medical Oncology Start: 11-03-2023 [facility] Start: 08-08-2023 Adult BMI Screening Adult BMI Screening [facility] Start: 05-31-2023 COVID-19 Vaccine () COVID-19 Vaccine () [facility] Start: 04-10-2023 End: 04-10-2023 Patient encounter procedure 04/10/2023 2:30 PM EST Office Visit [facility] [address] [address] Jan Reyes MD [address] [place] [address] [facility] Start: 03-25-2023 COVID-19 Vaccine ( season) COVID-19 Vaccine (2022- season) [facility] Start: 12-23-2022 Tobacco Screening Tobacco Screening [facility] [employer] [facility] Start: 07-08-2022 Medicare Annual Wellness (AWV) Medicare Annual Wellness (AWV) [facility] Start: 01-07-2022 Depression Screening Depression Screening [facility] Start: 02-17-2020 Administration of varicella zoster vaccine [facility] Start: 05-01-2012 Pneumococcal Vaccine: 65+ Years (2 of 2 - PCV) Pneumococcal Vaccine: 65+ Years (2 of 2 - PCV) [facility] Start: 2005 Fall Risk Screening Fall Risk Screening [facility] Start: 1959 DTaP,Tdap and Td Vaccines (1 - Tdap) DTaP,Tdap and Td Vaccines (1 - Tdap) [facility] Start: 1952 Depression Screening Depression Screening [facility] Start: 1940 Medicare Annual Wellness Visit Medicare Annual Wellness Visit [facility] End: 11-18-2024 CBC W Auto Differential panel - Blood CBC auto differential Lab Routine Right breast cancer with T3 tumor, >5 cm in greatest dimension (CMS-HCC) HER2-positive carcinoma of right breast (CMS-HCC) Encounter for monitoring cardiotoxic drug therapy every 3 weeks for 50 Occurrences starting 11/19/2023 until 11/18/2024 [facility] [employer] Comment on above: every 3 weeks for 50 Occurrences startin g 11/19/2023 until 11/18/2024 End: 10-28-2025 CBC W Auto Differential panel - Blood CBC with auto diff Lab Routine HER2-positive carcinoma of right breast (CMS-HCC) Right breast cancer with T3 tumor, >5 cm in greatest dimension (CMS-HCC) Encounter for monitoring cardiotoxic drug therapy Chemotherapy induced diarrhea every 3 weeks for 50 Occurrences starting 10/28/2024 until 10/28/2025 [employer] Work Phone: Comment on above: every 3 weeks for 50 Occurrences startin g 10/28/2024 until 10/28/2025 End: 11-18-2024 Comprehensive metabolic 2000 panel - Serum or Plasma Comprehensive metabolic panel Lab Routine Right breast cancer with T3 tumor, >5 cm in greatest dimension (CMS-HCC) HER2-positive carcinoma of right breast ([facility]-HCC) Encounter for monitoring cardiotoxic drug therapy every 3 weeks for 50 Occurrences starting 11/19/2023 until 11/18/2024 [facility] Comment on above: every 3 weeks for 50 Occurrences startin g 11/19/2023 until 11/18/2024 End: 10-28-2025 Comprehensive metabolic 2000 panel - Serum or Plasma Comprehensive metabolic panel Lab Routine HER2-positive carcinoma of right breast (CMS-HCC) Right breast cancer with T3 tumor, >5 cm in greatest dimension (CMS-HCC) Encounter for monitoring cardiotoxic drug therapy Chemotherapy induced diarrhea every 3 weeks for 50 Occurrences starting 10/28/2024 until 10/28/2025 [facility] Comment on above: every 3 weeks for 50 Occurrences startin g 10/28/2024 until 10/28/2025 Hepatitis B core antibody measurement [facility] Work Phone: Immunizations Immunization Date Immunization Notes Care Provider [facility] 02-05-2024 influenza virus vaccine, unspecified formulation Will Cuadra MD Work Phone: [facility] 01-13-2023 influenza virus vaccine, unspecified formulation Will Cuadra MD Work Phone: [facility] 05-24-2020 COVID-19, mRNA, LNP- S, PF, 100mcg/0.5mL Dose [facility] 04-27-2020 COVID-19, mRNA, LNP- S, PF, 100mcg/0.5mL Dose [facility]in [facility] 12-23-2019 zoster vaccine, unspecified formulation Toyin [facility] Payers Date Payer Category Payer Self-pay [id number] 2022 Private Health Insurance [employer] [id number] 2011 Managed Care Other (unspecified) [facility] [id number] 2011 Unknown [id number] 2005 Medicare [id number] 1959 Medicare [id number] 1959 Unknown [id number] 1940 Unknown [id number] 2.16.840.1.844427.3.579. 2.593 1940 Unknown [id number] 2.16.840.1.115406.3.579. 2.593 1940 Unknown [id number] 2.16.840.1.529387.3.579. 2.593 1940 Unknown [id number] 2.16.840.1.153581.3.579. 2.593 1940 Unknown [id number] 2.16.840.1.418097.3.579. 2.593 1940 Unknown [id number] 2.16.840.1.470845.3.579. 2.593 1940 Unknown [id number] 2.16.840.1.092167.3.579. 2.593 1940 Unknown [id number] 2.16.840.1.671502.3.579. 2.1286 1940 Unknown [id number] 2.16.840.1.630035.3.579. 2.1286 1940 Unknown [id number] 2.16.840.1.883962.3.579. 2.1286 1940 Unknown [id number] 2.16.840.1.302371.3.579. 2.1286 1940 Unknown [id number] 2.16.840.1.084939.3.579. 2.1286 1940 Unknown [id number] 2.16.840.1.782284.3.579. 2.1286 1940 Unknown [id number] 2.16.840.1.941277.3.579. 2.1259 1940 Unknown [id number] 2.16.840.1.487024.3.579. 2.1259 1940 Unknown [id number] 2.16.840.1.734403.3.579. 2.1259 1940 Unknown [id number] 2.16.840.1.473740.3.579. 2.1259 1940 Unknown [id number] 2.16.840.1.448864.3.579. 2.1259 1940 Unknown [id number] 2.16.840.1.189240.3.579. 2.1259 1940 Unknown [id number] 2.16.840.1.642279.3.579. 2.1259 1940 Unknown [id number] 2.16.840.1.814119.3.579. 2.1259 1940 Unknown [id number] 2.16.840.1.731803.3.579. 2.1286 1940 Unknown [id number] 2.16.840.1.960424.3.579. 2.128 1940 Unknown [id number] 2.16.840.1.950525.3.579. 2.128 1940 Unknown [id number] 2.16.840.1.286524.3.579. 2.1285 1940 Unknown [id number] 2.16.840.1.098672.3.579. 2.1285 1940 Unknown [id number] 2.16.840.1.032093.3.579. 2.1285 1940 Unknown [id number] 2.16.840.1.688134.3.579. 2.1285 1940 Unknown [id number] 2.16.840.1.518838.3.579. 2.1285 1940 Unknown [id number] 2.16.840.1.193114.3.579. 2.1285 1940 Unknown [id number] 2.16.840.1.616829.3.579. 2.128 1940 Unknown [id number] 2.16.840.1.656214.3.579. 2.128 1940 Unknown [id number] 2.16.840.1.473166.3.579. 2.1285 1940 Unknown [id number] 2.16.840.1.170460.3.579. 2.1285 1940 Unknown [id number] 2.16.840.1.474860.3.579. 2.1285 1940 Unknown [id number] 2.16.840.1.190169.3.579. 2.128 1940 Unknown [id number] 2.16.840.1.220243.3.579. 2.1285 1940 Unknown [id number] 2.16.840.1.885916.3.579. 2.1285 1940 Unknown [id number] 2.16.840.1.097289.3.579. 2.1285 1940 Unknown [id number] 2.16.840.1.417484.3.579. 2.1285 1940 Unknown [id number] 2.16.840.1.250204.3.579. 2.1285 1940 Unknown [id number] 2.16.840.1.671784.3.579. 2.1285 1940 Unknown [id number] 2.16.840.1.482275.3.579. 2.1285 1940 Unknown [id number] 2.16.840.1.523732.3.579. 2.1285 1940 Unknown [id number] 2.16.840.1.673254.3.579. 2.1285 1940 Unknown [id number] 2.16.840.1.609951.3.579. 2.1285 1940 Unknown [id number] 2.16.840.1.172034.3.579. 2.128 1940 Unknown [id number] 2.16.840.1.756330.3.579. 2.1285 1940 Unknown [id number] 2.16.840.1.086599.3.579. 2.1285 1940 Unknown [id number] 2.16.840.1.160040.3.579. 2.1285 1940 Unknown [id number] 2.16.840.1.412494.3.579. 2.1286 1940 Unknown [id number] 2.16.840.1.092602.3.579. 2.1286 1940 Unknown [id number] 2.16.840.1.532067.3.579. 2.1286 1940 Unknown [id number] 2.16.840.1.813903.3.579. 2.1286 1940 Unknown [id number] 2.16.840.1.669214.3.579. 2.1286 1940 Unknown [id number] 2.16.840.1.674610.3.579. 2.1286 1940 Unknown [id number] 2.16.840.1.372615.3.579. 2.1286 1940 Unknown [id number] 2.16.840.1.446622.3.579. 2.1286 1940 Unknown [id number] 2.16.840.1.184758.3.579. 2.1286 1940 Unknown [id number] 2.16.840.1.018242.3.579. 2.1286 Unknown [id number] 2.16.840.1.591539.3.579. 2.531 Unknown [id number] 2.16.840.1.516488.3.579. 2.531 Social History Date Type Detail Facility Tobacco smoking stat us CTIS Unknown if ever smoked [facility] Work Phone: Start: 1940 Sex Assigned At Female F [facility] Start: 04-10-2023 End: 06-03-2023 Tobacco smoking status CTIS Never smoked tobacco [facility] Start: 04-10-2023 End: 06-03-2023 Tobacco use and exposure Smokeless tobacco non-user [facility] Start: 11-18-2023 End: 09-14-2024 Alcoholic beverage intake Lifetime non-drinker (finding) [facility] Start: 04-24-2020 End: 11-18-2023 History of Social function [facility] Start: 04-24-2020 End: 11-18-2023 Tobacco use panel [facility] Start: 04-10-2023 Alcohol Comment caffeine intak e : 1-2 cups per day [facility] Start: 1940 Sex assigned at Not on file N [facility] Start: 03-23-2024 End: 11-16-2024 Alcoholic beverage intake Current drinker of alcohol (finding) [facility] Frequency of Communication with Friends and Family More than three times a week [facility] Start: 11-25-2018 Education 12 [facility] Start: 10-21-2019 Alcohol Comment rarely [facility] Start: 11-09-2014 Sex Female (finding) [facility] NEGATED: Highlighted rowStart: NINF History of tobacco use Passive smoker [facility] Functional Status Date Assessment Result Facility 09-14-2024 Patient Health Quest ionnaire 2 item (PHQ-2) [Reported] [facility] Clinical Notes 04-09-2023 to 12-14-2024 Emilie Carbajal RN - 12/14/2024 10:30 AM Katina Garcia RN - 11/16/2024 10:30 AM Joshua Cullen RN - 10/28/2024 11:09 AM Rian Cuadra MD - 10/28/2024 10:45 AM EDTPatient Instructions Note Date & Type Note Facility 12-14-2024 History of Presen t illness Narrative Patient presents for Phesgo injection. Denies any new or worsening issues. Labs reviewed, Next echo due 01/18, patient has this scheduled already. Phesgo injection administered to right thigh over 5 minutes, without incidence. Observation x 15 minutes completed. Appointment calendar for January provided. Patient discharged in stable condition. documented in this encounter [facility] 11-16-2024 History of Presen t illness Narrative Patient is here for phesgo injection. She is tolerating it okay. She gets diarrhea and immodium is effective. ( Not more than 4 stools per day). Phesgo injection given SQ to thigh over 5 minutes. Pt remained on unit for 15 minute observation and denies any complaints. Treatment calendar provided and v/u of upcoming appt's, labs, and dc instruction. Dc'd in stable condition. Next echo due 01/18/25 documented in this encounter [facility] 10-28-2024 History of Presen t illness Narrative Pt here for f/u breast cancer/phesgo with Dr. Cuadra. Orders received for: Right side breast ultrasound end of 12/2024 Move tx from 01/11 to 01/12. F/u with MD on 01/12. Continue current tx every 28 days. Right breast US ordered and instructed to schedule end of December. Treatment for 01/11 scheduled for 01/12 with f/u with Dr. Cuadra. Treatment calendar given for next month. documented in this encounter [facility] 10-28-2024 History of Presen t illness Narrative Images from the original note were not included. [facility] 10/28/24 Angelika Martins is a 84 y.o. year old female seen today in the oncology clinic. Chief Complaint Patient presents with Follow-up History of Present Illness: Mrs. Martins is a 84 y.o. female who recently [...] 2.2 cm. She has been on phesgo since March 2024, currently getting treatment every 4 weeks. She does have some diarrhea and Imodium helped. Currently she is tolerating treatment very well, no significant fatigue. She only takes 1 tablet as needed. Weight has been stable. Denies any significant bone pains she is wheelchair-bound due to severe arthritis. She lives with her at home. She is accompanied by her daughter. 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 Cardiac catheterization N/A 11/01/2018 Performed by Kalin Hamm MD at [facility] Coronary angiogram and left ventricular gram/pressure N/A 11/01/2018 Performed by Kalin Hamm MD at [facility] HYSTERECTOMY 1986 complete INJECTION MEDIAL BRANCH NERVE BLOCK: right C34 45 56mbb Right 09/07/2017 Performed by Kel Serna MD at [facility] INJECTION MEDIAL BRANCH NERVE BLOCK: right C34 45 56mbb Right 07/31/2017 [facility] [facility] RADIO FREQUENCY ABLATION: right C34 45 56 Right 06/21/2018 Performed by Kel Serna MD at [facility] RADIOFREQUENCY ABLATION SPINAL: right C34 45 56rfa Right 09/25/2017 Performed by Kel Serna MD at [facility] RADIOFREQUENCY TURBINATE NASAL Bilateral 08/23/2020 Performed by Eddie Santana MD PhD at [facility] SEPTOPLASTY Circumferential 08/23/2020 Performed by Eddie Santana MD PhD at [facility] TONSILLECTOMY TUBAL LIGATION Family History Problem [...] 0 min Stress: Stress Concern Present (11/25/2018) [place] [employer] - Occupational Stress Questionnaire Feeling of Stress : To some extent Social Connections: Moderately Integrated (11/25/2018) Social Connection and Isolation Panel [NHANES] Frequency of Communication with Friends and Family: More than three times a week Frequency of Social Gatherings with Friends and Family: Twice a week Attends [employer] Services: More than 4 times per year Active Member of Clubs or Organizations: No Attends Club or Organization Meetings: Never Marital Status: Interpersonal Safety: Not At Risk (11/25/2018) Humiliation, Afraid, Rape, and Kick questionnaire Fear of Current or Ex-Partner: No Emotionally Abused: No Physically Abused: No Sexually Abused: No Allergies Allergen Reactions Amoxicillin Diarrhea Medication List Accurate as of October 28, 2024 11:15 AM. If you have any questions, ask [...] Refills: 11 Dose: 81 mg Signed by: Tayo Flores MD atorvastatin 80 mg tablet Refills: 1 Dose: 80 mg Commonly known as: LIPITOR calcium carbonate-vitamin D3 500 mg (1,250 mg) - 200 units per tablet Refills: 0 Dose: 1 tablet Commonly known as: OSCAL 500 + D cholecalciferol 1,000 units tablet Refills: 0 Dose: 1,000 Units ciprofloxacin HCl 500 mg tablet Refills: 0 Dose: 500 mg Commonly known as: CIPRO cranberry 500 mg capsule Refills: 0 famotidine 20 mg tablet Refills: 3 Dose: 20 mg Commonly known as: PEPCID FLUoxetine 10 mg capsule Refills: 0 Commonly known as: PROzac leflunomide 20 mg tablet Refills: 0 Dose: 20 mg Commonly known as: ARAVA letrozole 2.5 mg chemo tablet Quantity: 90 tablet Refills: 3 For diagnoses: Right breast cancer with T3 tumor, >5 cm in greatest dimension ([facility]) Dose: 2.5 mg Signed by: Will Cuadra [...] FURTHER REFILLS. Commonly known as: TOPROL XL ladapweo-gmki-TI-calcium &mins 9 mg iron-400 mcg tablet Refills: [...] appearing, in no acute distress. Vitals: BP 128/72 Pulse 57 Temp 36.7 C (98 F) (Oral) Resp 16 Ht 147.3 cm (4' 9.99 ) Wt 42.9 kg (94 lb 9.6 oz) SpO2 98% BMI 19.78 kg/m Body mass index is 19.78 kg/m . Eyes: No icterus, no conjuctival [...] lesion getting smaller less painful and softer. No significant change compared to last visit. The nipple retraction is getting better too. [...] 2 weeks) Comprehensive metabolic panel Collection Time: 10/18/24 11:48 AM Result Value Ref Range SODIUM 143 134 - 146 mmol/L POTASSIUM 4.0 3.5 - 5.0 mmol/L CHLORIDE 105 98 - 109 mmol/L CARBON DIOXIDE 27 22 - 32 mmol/L ANION GAP 11 5 - 15 mmol/L BLOOD UREA NITROGEN 15 5 - 27 mg/dL CREATININE 0.70 0.40 - 1.00 mg/dL GLUCOSE 80 65 - 99 mg/dL CALCIUM 9.4 8.5 - 10.5 mg/dL TOTAL PROTEIN 6.4 6.0 - 8.0 g/dL ALBUMIN 4.1 3.2 - 5.3 g/dL ALKALINE PHOSPHATASE 87 39 - 130 U/L AST 29 <=41 U/L ALT 13 <=31 U/L BILIRUBIN,TOTAL 0.6 0.3 - 1.2 mg/dL EGFR Non-Race Dependent 85 >=60 ml/min/1.73sq.m CBC auto differential Collection Time: 10/18/24 11:48 AM Result Value Ref Range WBC 8.1 4 - 11 x10E9/L RBC Count 4.43 3.8 - 5.2 X10E12/L Hemoglobin 13.9 11.7 - 15.5 g/dL Hematocrit 41.8 35 - 47 % MCV 94 80 - 100 fL MCH 31.3 27 - 34 pg MCHC 33.2 32 - 36 g/dL RDW 14.5 11.5 - 15 % Platelet Count 319 150 - 450 X10E9/L MPV 9.5 7 - 12 fL Neutrophils % 67.6 % Lymphocytes % 14.6 % Monocytes % 13.2 % Eosinophils % 3.5 % Basophils % 1.1 % Neutrophils Absolute (A) 5.5 1.5 - 6.6 10*3/uL Lymphocytes Absolute 1.2 1.0 - 3.5 10*3/uL Monocytes Absolute 1.1 (H) 0.0 - 0.9 10*3/uL Eosinophils Absolute 0.3 0.0 - 0.4 10*3/uL Basophils Absolute 0.1 0.0 - 0.2 10*3/uL Differential Type AUTOMATED DIFFERENTIAL Diagnosis Problem list: Problem List Items Addressed This Visit Digestive Chemotherapy induced diarrhea Relevant Orders Ultrasound breast limited right Other Right breast cancer with T3 tumor, >5 cm in greatest dimension (CMS-HCC) Relevant Orders Ultrasound breast limited right HER2-positive carcinoma of right breast (CMS-HCC) - Primary Relevant Orders Ultrasound breast limited right Other Visit Diagnoses Encounter for monitoring cardiotoxic drug therapy Relevant Orders Ultrasound breast limited right Impression: Iron deficiency anemia, not responding to [...] and less pain in the right breast. Breast right side ultrasound end of 03/2024 at [facility] showed original mass has decreased from 6.5-5.1 cm. Overall she has a good response. Most recent ultrasound July 2024 showed stable results compared to March. Continue current treatment every 4 weeks. F/u in 3 months to evaluate tolerance. Repeat breast ultrasound again the end of December 2024. See me in early January to review results. Advise patient continue to use antiemetics and Imodium to control side effects from phesgo. The patient will need echocardiogram every 3 months. Will Cuadra M.D. [facility] [address] [place] [address] [place] [address] Will Cuadra MD Please note that portions of this note were generated using voice recognition [employer] dictation software. Although every effort was made to ensure the accuracy of this automated brand director, some errors in brand director may have occurred. CC: Patient Care Team: Boone Ewing MD as PCP - General (Family Medicine) Will Cuadra MD as Consulting Physician (Hematology) Tayo Flores MD as Consulting Physician (Cardiology) PCP:BOONE EWING Referring MD: Boone Ewing MD documented in this encounter [facility] [employer] [facility] 10-28-2024 Instructions Will Cuadra MD - 10/28/2024 10:45 AM EDT Right side ultrasound end of 12/2024 Move tx from 01/11 to 01/12. F/u with MD on 01/12. Continue current tx every 28 days. [facility] History of Presen t illness Narrative Patient presents for Phesgo injection. Denies any new or worsening issues. Labs reviewed, Echo completed 10/18 per patient. Phesgo injection administered to right thigh over 5 minutes, without incidence. Observation x 15 minutes completed. Appointment calendar for November provided. Patient discharged in stable condition. [facility] History of Presen t illness Narrative Patient is here for Phesgo injection as scheduled. Toxicity check completed per flowsheet data. Pre chemo check completed with Alvarez Eastman RN. Phesgo administered in left upper thigh subcutaneous tissue without incident and she tolerated well. Site covered with band aid pre patient request. Treatment calendar and lab result provided. Patient remained on unit for 15 minute observation. At completion, patient discharged in stable condition to private vehicle in care of her daughter. [facility] History of Presen t illness Narrative Associated Problem(s): Medicare annual wellness visit, subsequent Due for labs. Discussed proper diet and regular aerobic exercise. Need aerobic exercise 5-6 days a week for 30 minutes at a time. Smaller portions and limit total calories. Tetanus every 10 years. Advised not to smoke. Associated Problem(s): Invasive ductal carcinoma of breast, female, right Tolerating chemo and follow with specialists. Images from the original note were not included. Subjective Patient ID: Angelika Martins is a 84 y.o. female who presents for Medicare Annual Wellness Visit Subsequent (wellness) and Follow-up (Fell last week tender on right side rib area). Presents for medicare annual wellness visit. Patient stable today. Weight unchanged over the past year. Currently getting chemotherapy for breast cancer. Significant weakness and problems walking. Decreased appetite and not eating as much. Tumor shrinking. Due for labs. Review of Systems Respiratory: Negative for cough, [...] There is no guarding or rebound. Musculoskeletal: General: No swelling or tenderness. Cervical back: Neck supple. Right lower leg: No edema. Left lower leg: No edema. Skin: Findings: No erythema or rash. Neurological: General: No focal deficit present. Mental Status: She is alert and oriented to person, place, and time. Cranial Nerves: No cranial nerve deficit. Motor: No weakness. Gait: Gait normal. Assessment/Plan Problem List Items Addressed This Visit Dyslipidemia ([facility]) Relevant Orders Lipid panel Hypothyroidism, adult ([facility]) Relevant Orders TSH T4, free Invasive ductal carcinoma of breast, female, right Tolerating chemo and follow with specialists. Medicare annual wellness visit, subsequent - Primary Due for labs. Discussed proper diet and regular aerobic exercise. Need aerobic exercise 5-6 days a week for 30 minutes at a time. Smaller portions and limit total calories. Tetanus every 10 years. Advised not to smoke. documented in this encounter [facility] 08-24-2024 History of Presen t illness Narrative Phesgo given during downtime documented in this encounter [facility] 07-27-2024 History of Presen t illness Narrative Patient presents for Phesgo injection. Denies any new or worsening issues. Diarrhea occasional but improvement voiced and well controlled with Imodium when needed. Labs and Echo reviewed, copies provided. Phesgo injection administered to right thigh over 5 minutes, without incidence. Observation x 15 minutes completed. Appointment calendars through October provided. Patient discharged in stable condition. documented in this encounter [facility] 07-22-2024 History of Presen t illness Narrative Pt here for f/u breast cancer/ phesgo. Orders received per Dr. Cuadra: Continue tx every 4 weeks, f/u in 3-4 months. F/u scheduled. documented in this encounter [facility] [employer] [facility] 07-22-2024 History of Presen t illness Narrative Images from the original note were not included. [facility] 07/22/24 Angelika Martins is a 84 y.o. year old female seen today in the oncology clinic. Chief Complaint Patient presents with Follow-up History of Present Illness: Mrs. Martins is a 84 y.o. female who recently [...] 2.2 cm. She has been on phesgo since March 2024, currently getting treatment every 4 weeks. She does have some diarrhea and Imodium helped. She only takes 1 tablet as needed. Weight has been stable. Denies any significant bone pains she is wheelchair-bound due to severe arthritis. She lives with her at home. She is accompanied by her daughter. 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 CABGX2/LIMAX1/SVGX1/EVH LEFT UPPER LEG/MINA N/A 11/03/2018 Performed by Kel Sherman MD at [facility] Cardiac catheterization N/A 11/01/2018 Performed by Kalin Hamm MD at [facility] CARDIAC CATH LABS Coronary angiogram and left ventricular gram/pressure N/A 11/01/2018 Performed by Kalin Hamm MD at [facility] CARDIAC [facility]ATH [facility]S HYSTERECTOMY 1986 complete INJECTION MEDIAL BRANCH NERVE BLOCK: right C34 45 56mbb Right 09/07/2017 Performed by Kel Serna MD at [facility] INJECTION MEDIAL BRANCH NERVE BLOCK: right C34 45 56mbb Right 07/31/2017 Performed by Kel Serna MD at [facility] RADIO FREQUENCY ABLATION: right C34 45 56 Right 06/21/2018 Performed by Kel Serna MD at [facility] RADIOFREQUENCY ABLATION SPINAL: right C34 45 56rfa Right 09/25/2017 Performed by Kel Serna MD at [facility] RADIOFREQUENCY TURBINATE NASAL Bilateral 08/23/2020 Performed by Eddie Santana MD PhD at [facility] SEPTOPLASTY Circumferential 08/23/2020 Performed by Eddie Santana MD PhD at [facility] TONSILLECTOMY TUBAL LIGATION Family History Problem [...] 0 min Stress: Stress Concern Present (11/25/2018) [place] [employer] - Occupational Stress Questionnaire Feeling of Stress : To some extent Social Connections: Moderately Integrated (11/25/2018) Social Connection and Isolation Panel [NHANES] Frequency of Communication with Friends and Family: More than three times a week Frequency of Social Gatherings with Friends and Family: Twice a week Attends [employer] Services: More than 4 times per year Active Member of Clubs or Organizations: No Attends Club or Organization Meetings: Never Marital Status: Interpersonal Safety: Not At Risk (11/25/2018) Humiliation, Afraid, Rape, and Kick questionnaire Fear of Current or Ex-Partner: No Emotionally Abused: No Physically Abused: No Sexually Abused: No Allergies Allergen Reactions Amoxicillin Diarrhea Medication List Accurate as of July 22, 2024 11:35 AM. If you have any questions, ask [...] Refills: 11 Dose: 81 mg Signed by: Tayo Flores MD atorvastatin 80 mg tablet Refills: 1 Dose: 80 mg Commonly known as: LIPITOR calcium carbonate-vitamin D3 500 mg (1,250 mg) - 200 units per tablet Refills: 0 Dose: 1 [...] T3 tumor, >5 cm in greatest dimension ([facility]) Dose: 2.5 mg Signed by: Will Cuadra [...] FURTHER REFILLS. Commonly known as: TOPROL XL hywpmqvl-uhcf-IH-calcium &mins 9 mg iron-400 mcg tablet Refills: [...] appearing, in no acute distress. Vitals: BP 153/71 Pulse 65 Temp 36.7 C (98 F) (Oral) Resp 16 Ht 147.3 cm (4' 9.99 ) Wt 44.6 kg (98 lb 6.4 oz) SpO2 96% BMI 20.57 kg/m Body mass index is 20.57 kg/m . Eyes: No icterus, no conjuctival [...] or any previous visit (from the past 2 weeks). Diagnosis Problem list: Problem List Items Addressed This Visit Digestive Chemotherapy induced diarrhea Other Right breast cancer with T3 tumor, >5 cm in greatest dimension (CMS-HCC) - Primary HER2-positive carcinoma of right breast (CMS-HCC) Impression: Iron deficiency anemia, not responding to [...] and less pain in the right breast. Breast right side ultrasound end of 03/2024 at [facility] showed original mass has decreased from 6.5-5.1 cm. Overall she has a good response. Most recent ultrasound July 2024 showed stable results compared to March. Continue current treatment every 4 weeks. F/u in 3 months to evaluate tolerance. Advise patient continue to use antiemetics and Imodium to control side effects from phesgo. The patient will need echocardiogram every 3 months. Will Cuadra M.D. [facility] [address] [place] [address] Will Cuadra MD Please note that portions of this note were generated using voice recognition [employer] dictation software. Although every effort was made to ensure the accuracy of this automated brand director, some errors in brand director may have occurred. CC: Patient Care Team: Boone Ewing MD as PCP - General (Family Medicine) Will Cuadra MD as Consulting Physician (Hematology) Tayo Flores MD as Consulting Physician (Cardiology) PCP:BOONE EWING Referring MD: Boone Ewing MD [facility] Instructions Will Cuadra MD - 07/22/2024 11:00 AM EDT Continue tx every 4 weeks, f/u in 3-4 months. [facility] History of Presen t illness Narrative [...] in stable condition. [facility] History of Presen t illness Narrative Associated Problem(s): Major depressive disorder, recurrent, moderate (CMS/HCC) Mood much improved and continue prozac. Associated Problem(s): Lumbar spondylosis Pain improved and use ultram PRN. Images from the original note were not included. Subjective Patient ID: Angelika Martins is a 84 y.o. female who presents [...] and continue prozac. documented in this encounter [facility] 06-01-2024 History of Presen t illness Narrative [...] condition with daughter. documented in this encounter [facility] 05-09-2024 History of Presen t illness Narrative Images from the original note were not included. Subjective Patient ID: Angelika Martins is a 84 y.o. female who presents [...] 10 MG capsule documented in this encounter [facility] 05-04-2024 History of Presen t illness Narrative [...] in stable condition. documented in this encounter [facility] 04-22-2024 History of Presen t illness Narrative The patient is here for follow up of Phesgo treatment After next tx 05/04, change tx to every 4 weeks. Right side breast ultrasound end of 06/2024 (print out orders) F/u in 07/2024. Calendar, order, and instructions given to patient and daughter, documented in this encounter [facility] 04-22-2024 History of Presen t illness Narrative Images from the original note were not included. [facility] 04/22/24 Angelika Martins is a 84 y.o. year old female seen today in the oncology clinic. Chief Complaint Patient presents with Follow-up History of Present Illness: Mrs. Martins is a 84 y.o. female who recently [...] daughter. 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 Cardiac catheterization N/A 11/01/2018 Performed by Kalin Hamm MD at [facility] CARDIAC CATH LABS Coronary angiogram and left ventricular gram/pressure N/A 11/01/2018 Performed by Kalin Hamm MD at [facility] CARDIAC [facility]ATH [facility]S HYSTERECTOMY 1986 complete INJECTION MEDIAL BRANCH NERVE BLOCK: right C34 45 56mbb Right 09/07/2017 Performed by Kel Serna MD at [facility] INJECTION MEDIAL BRANCH NERVE BLOCK: right C34 45 56mbb Right 07/31/2017 Performed by Kel Serna MD at [facility] RADIO FREQUENCY ABLATION: right C34 45 56 Right 06/21/2018 Performed by Kel Serna MD at [facility] RADIOFREQUENCY ABLATION SPINAL: right C34 45 56rfa Right 09/25/2017 Performed by Kel Serna MD at [facility] RADIOFREQUENCY TURBINATE NASAL Bilateral 08/23/2020 Performed by Eddie Santana MD PhD at [facility] SEPTOPLASTY Circumferential 08/23/2020 Performed by Eddie Santana MD PhD at [facility] TONSILLECTOMY TUBAL LIGATION Family History Problem [...] 0 min Stress: Stress Concern Present (11/25/2018) [place] [employer] - Occupational Stress Questionnaire Feeling of Stress : To some extent Social Connections: Moderately Integrated (11/25/2018) Social Connection and Isolation Panel [NHANES] Frequency of Communication with Friends and Family: More than three times a week Frequency of Social Gatherings with Friends and Family: Twice a week Attends [employer] Services: More than 4 times per year [...] T3 tumor, >5 cm in greatest dimension ([facility]) Dose: 2.5 mg Signed by: Will Cuadra [...] FURTHER REFILLS. Commonly known as: TOPROL XL tlnfykxu-zrdc-WQ-calcium &mins 9 mg iron-400 mcg tablet Refills: [...] AV Velocity Ratio 0.67 Left Ventricle Mass [id number] g Interventricular Septum Diastolic Thickness by 2D 10 cm GLS -19 % Est. RA pressure 3 mmHg RV Peak Systolic Pressure 42 mmHg Diagnosis Problem list: Problem List Items Addressed This Visit Other Right breast cancer with T3 tumor, >5 cm in greatest dimension (CMS-HCC) HER2-positive carcinoma of right breast (CMS-HCC) - [...] right side ultrasound end of 03/2024 at [facility] showed original mass has decreased from 6.5-5.1 cm. Overall she has a good response. After next tx 05/04, change tx to every 4 weeks. Right side breast ultrasound end of 06/2024 (print out orders) F/u in 07/2024. Advise patient continue to use antiemetics and Imodium to control side effects from phesgo. Will Cuadra M.D. [facility] [address] [place] [address] Will Cuadra MD Please note that portions of this note were generated using voice recognition M*[employer] dictation software. Although every effort was made to ensure the accuracy of this automated brand director, some errors in brand director may have occurred. CC: Patient Care Team: Boone Ewing MD as PCP - General (Family Medicine) Will Cuadra MD as Consulting Physician (Hematology) Tayo Flores MD as Consulting Physician (Cardiology) PCP:BOONE EWING Referring MD: Boone Ewing MD [facility] Instructions Will Cuadra MD - 04/22/2024 10:30 AM EST After next tx 05/04, change tx to every 4 weeks. Right side breast ultrasound end of 06/2024 (print out orders) F/u in 07/2024. [facility] History of Presen t illness Narrative Angelika Polanco Eliezer Date of visit: 04/19/2024 Date of : 1940 Age: 84 y.o. Patient Active Problem List Diagnosis Cervical spondylosis without myelopathy Iron deficiency anemia Coronary artery disease involving [place] coronary artery of [place] heart History of coronary artery bypass graft x 2 Dyslipidemia Epistaxis S/P nasal septoplasty Right breast cancer with T3 tumor, >5 cm in greatest dimension ([facility]) HER2-positive carcinoma of right breast ([facility]) Allergies Allergen Reactions Amoxicillin Diarrhea Current Outpatient [...] FOR ANY FURTHER REFILLS. 90 tablet 3 yylowaxz-hnad-DO-calcium &mins (THERAGRAN-M) 9 mg iron-400 mcg tablet [...] MO FU L/S RDG - echo 03/12 appt w/pt History of Present Illness Patient is an 84-year-old female with a past medical history of CAD with CABG x2 in 2018, preserved EF, dyslipidemia, hypertension, rheumatoid arthritis Patient [...] 60-65% with severe tricuspid valve regurgitation and npjz-pt-etonbhsz mitral valve regurgitation with a posteriorly directed [...] 11/03/2018 Performed by Kel Sherman MD at [facility] Cardiac catheterization N/A 11/01/2018 Performed by Kalin Hamm MD at [facility] CARDIAC CATH LABS Coronary angiogram and left ventricular gram/pressure N/A 11/01/2018 Performed by Kalin Hamm MD at [facility] CARDIAC CATH LABS HYSTERECTOMY 1986 complete INJECTION MEDIAL BRANCH NERVE BLOCK: right C34 45 56mbb Right 09/07/2017 Performed by Kel Serna MD at [facility] INJECTION MEDIAL BRANCH NERVE BLOCK: right C34 45 56mbb Right 07/31/2017 Performed by Kel Serna MD at [facility] RADIO FREQUENCY ABLATION: right C34 45 56 Right 06/21/2018 Performed by Kel Serna MD at [facility] RADIOFREQUENCY ABLATION SPINAL: right C34 45 56rfa Right 09/25/2017 Performed by Kel Serna MD at [facility] RADIOFREQUENCY TURBINATE NASAL Bilateral 08/23/2020 Performed by Eddie Santana MD PhD at [facility] SEPTOPLASTY Circumferential 08/23/2020 Performed by Eddie Santana MD PhD at [facility] TONSILLECTOMY TUBAL LIGATION Family History Problem [...] 0 min Stress: Stress Concern Present (11/25/2018) [employer] [place] [facility] [employer] [facility] - Occupational Stress Questionnaire Feeling of Stress : To some extent Social Connections: Moderately Integrated (11/25/2018) Social Connection and Isolation Panel [NHANES] Frequency of Communication with Friends and Family: More than three times a week Frequency of Social Gatherings with Friends and Family: Twice a week Attends [employer] Services: More than 4 times per year [...] T3 tumor, >5 cm in greatest dimension ([facility]) 3. Dyslipidemia -continue atorvastatin 4. Hypertension -well controlled, continue current medications 5. PAC/PVCs -asymptomatic 6. Rheumatoid arthritis 7. Fatigue 8. Severe tricuspid valve regurgitation 04/2024 -euvolemic, no complaints of swelling 9. Hkse-nf-ueftvfdf MR 04/2024 -similarly reported in TTE 2019 [...] Referring Physician: Boone Ewing MD [address] [place] [facility] [place] [address] Julianne Stewart PA-C 04/19/24 1029 documented in this encounter [facility] 04-18-2024 Miscellaneous Notes Left message for patient to remind them to bring their most current medication list with them to their appointment. documented in this encounter [facility] 04-18-2024 Telephone encounter Note Left message for patient to remind them to bring their most current medication list with them to their appointment. [facility] 04-13-2024 History of Presen t illness Narrative [...] to private vehicle. documented in this encounter [facility] 03-10-2024 History of Presen t illness Narrative [...] Elevate legs PRN. documented in this encounter [facility] 03-02-2024 History of Presen t illness Narrative Pt here for phesgo injection. Phesgo injection given SQ to left thigh over 8 minutes. Pt remained on unit for 15 minute observation and denies any complaints. VS stable. Treatment calendar provided and v/u of upcoming appt's, labs, and dc instruction. Dc'd in stable condition with daughter documented in this encounter [facility] 02-10-2024 History of Presen t illness Narrative [...] in stable condition. documented in this encounter [facility] 01-22-2024 History of Presen t illness Narrative Patient is here for follow up with Dr. Cuadra. Orders received for Echo every 3 months. Breast right side ultrasound end of 03/2024, [facility], print out orders. F/u in mid 04/2024. Patient given calendar, verbalized understanding of future appointments. documented in this encounter [facility] 01-22-2024 History of Presen t illness Narrative Images from the original note were not included. [facility] [place] 01/22/24 Angelika Martins is a 83 y.o. [...] daughter. 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 Cardiac catheterization N/A 11/01/2018 Performed by Kalin Hamm MD at [facility] CARDIAC CATH LABS Coronary angiogram and left ventricular gram/pressure N/A 11/01/2018 Performed by Kalin Hamm MD at [facility] CARDIAC CATH LABS HYSTERECTOMY 1986 complete INJECTION MEDIAL BRANCH NERVE BLOCK: right C34 45 56mbb Right 09/07/2017 Performed by Kel Serna MD at [facility] INJECTION MEDIAL BRANCH NERVE BLOCK: right C34 45 56mbb Right 07/31/2017 Performed by Kel Serna MD at [facility] RADIO FREQUENCY ABLATION: right C34 45 56 Right 06/21/2018 Performed by Kel Serna MD at [facility] RADIOFREQUENCY ABLATION SPINAL: right C34 45 56rfa Right 09/25/2017 Performed by Kel Serna MD at [facility] RADIOFREQUENCY TURBINATE NASAL Bilateral 08/23/2020 Performed by Eddie Santana MD PhD at [facility] SEPTOPLASTY Circumferential 08/23/2020 Performed by Eddie Santana MD PhD at [facility] TONSILLECTOMY TUBAL LIGATION Family History Problem [...] 0 min Stress: Stress Concern Present (11/25/2018) [place] [facility] [employer] - Occupational Stress Questionnaire Feeling of Stress : To some extent Social Connections: Moderately Integrated (11/25/2018) Social Connection and Isolation Panel [NHANES] Frequency of Communication with Friends and Family: More than three times a week Frequency of Social Gatherings with Friends and Family: Twice a week Attends [employer] Services: More than 4 times per year [...] T3 tumor, >5 cm in greatest dimension ([facility]) Dose: 2.5 mg Signed by: Will Cuadra [...] FURTHER REFILLS. Commonly known as: TOPROL XL goyifpxz-gswd-FX-calcium &mins 9 mg iron-400 mcg tablet Refills: [...] tip is in satisfactory position above the amkayla. Right side the central venous catheter tip [...] T3 tumor, >5 cm in greatest dimension ([facility]) HER2-positive carcinoma of right breast ([facility]) - Primary Impression: Iron deficiency anemia, not [...] side effects from phesgo. Will Cuadra M.D. [facility] [address] [place] [address] Will Cuadra MD Please note that portions of this note were generated using voice recognition M*Modal dictation software. Although every effort was made to ensure the accuracy of this automated brand director, some errors in brand director may have occurred. CC: Patient Care Team: Boone Ewing MD as PCP - General (Family Medicine) Will Cuadra MD as Consulting Physician (Hematology) Tayo Flores MD as Consulting Physician (Cardiology) PCP:BOONE EWING Referring MD: Boone Ewing MD documented in this encounter [facility] 01-22-2024 Instructions Will Cuadra MD - 01/22/2024 10:15 AM EDT Echo every 3 months. Breast right side ultrasound end of 03/2024, [facility], print out orders. F/u in mid 04/2024 documented in this encounter [facility] 01-20-2024 History of Presen t illness Narrative Patient is here for phesgo injection. She is tolerating it okay. Has got some slight nausea, script sent for zofran. She gets diarrhea and immodium is effective. She has not had any since Thursday. Phesgo injection given SQ to right thigh over 5 minutes. Pt remained on unit for 15 minute observation and denies any complaints. Treatment calendar provided and v/u of upcoming appt's, labs, and dc instruction. Dc'd in stable condition. documented in this encounter [facility] 12-30-2023 History of Presen t illness Narrative [...] folder of information from [facility], pt declined resources at this time. Motor Expert inquired on support system, pt said her daughter Helena lives down the road & is very supportive & 2 other daughters, 1 in area 1 out of area provide good support as well; daughters assist with transportation, shopping, meal preparations and other household tasks; pt relayed her grandchildren are also very supportive. Pt has medical insurance, able to afford medications. Educated pt on [employer], pt does not endorse need; does not endorse any financial concerns. Pt does not endorse any current needs. Opportunity provided to ask questions, pt does not endorse any at this time; pt gives typewriters functional tester permission to speak with her daughter Helena. Motor Expert introduced self & role of SW to Helena. Educated on [facility] resources/services & provided website information. Provided Ellie with writers card; informed her typewriters functional tester available & following. documented in this encounter [facility] 12-30-2023 History of Presen t illness Narrative Pt here for phesgo injection. Phesgo injection given SQ to left thigh over 6 minutes. Pt remained on unit for 15 minute observation and denies any complaints. VS stable. Treatment calendar provided and v/u of upcoming appt's, labs, and dc instruction. Dc'd in stable condition with daughter documented in this encounter [facility] 12-09-2023 History of Presen t illness Narrative [...] condition with daughter. documented in this encounter [facility] 12-02-2023 History of Presen t illness Narrative ECHO DONE ALL ISAIAS SCANNED INTO MEDIA AND ROUTED TO DR. CUADRA TO REVIEW. documented in this encounter [facility] 11-19-2023 History of Presen t illness Narrative [...] tx, f/u as planned. Will Cuadra M.D. [facility] [address] [place] [address] Previous Messages ----- Message ----- From: Nia Garcia RN Sent: 11/18/2023 3:23 PM EDT To: Will Cuadra MD Subject: path report Dr. Retana called to speak with you. [phone]. I told him you are out on [...] with any questions. documented in this encounter [facility] 11-18-2023 History of Presen t illness Narrative Dr. Retana called to speak with Dr. Cuadra. [phone]. Dr. Cuadra is on vacation this week. [...] Cuadra to review. documented in this encounter [facility] 11-13-2023 History of Presen t illness Narrative Patient saw Dr. Cuadra today for follow up. Orders received to F/u in 2 months. Patient given calendar, verbalized understanding of future appointments. documented in this encounter [facility] 11-13-2023 History of Presen t illness Narrative Images from the original note were not included. [facility] 11/13/23 Angelika Martins is a 83 y.o. year old female seen today in the oncology clinic. Chief Complaint Patient presents with Breast Cancer Consult History of Present Illness: Mrs. Martins is [...] daughter. 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 Cardiac catheterization N/A 11/01/2018 Performed by Kalin Hamm MD at [facility] CARDIAC CATH LABS Coronary angiogram and left ventricular gram/pressure N/A 11/01/2018 Performed by Kalin Hamm MD at [facility] CARDI[facility]ATH [facility]S HYSTERECTOMY 1986 complete INJECTION MEDIAL BRANCH NERVE BLOCK: right C34 45 56mbb Right 09/07/2017 Performed by Kel Serna MD at [facility] INJECTION MEDIAL BRANCH NERVE BLOCK: right C34 45 56mbb Right 07/31/2017 Performed by Kel Serna MD at [facility] RADIO FREQUENCY ABLATION: right C34 45 56 Right 06/21/2018 Performed by Kel Serna MD at [facility] RADIOFREQUENCY ABLATION SPINAL: right C34 45 56rfa Right 09/25/2017 Performed by Kel Serna MD at [facility] RADIOFREQUENCY TURBINATE NASAL Bilateral 08/23/2020 Performed by Eddie Santana MD PhD at [facility] SEPTOPLASTY Circumferential 08/23/2020 Performed by Eddie Santana MD PhD at [facility] TONSILLECTOMY TUBAL LIGATION Family History Problem [...] 0 min Stress: Stress Concern Present (11/25/2018) [employer] [employer] - Occupational Stress Questionnaire Feeling of Stress : To some extent Social Connections: Moderately Integrated (11/25/2018) Social Connection and Isolation Panel [NHANES] Frequency of Communication with Friends and Family: More than three times a week Frequency of Social Gatherings with Friends and Family: Twice a week Attends [employer] Services: More than 4 times per year [...] FURTHER REFILLS. Commonly known as: TOPROL XL oxqmapgf-oflc-ES-calcium &mins 9 mg iron-400 mcg tablet Refills: [...] T3 tumor, >5 cm in greatest dimension ([facility]) - Primary Impression: Iron deficiency anemia, not [...] this note were generated using voice recognition [employer] dictation software. Although every effort was made to ensure the accuracy of this automated brand director, some errors in brand director may have occurred. CC: Patient Care Team: Boone Ewing MD as PCP - General (Family Medicine) Will Cuadra MD as Consulting Physician (Hematology) Tayo Flores MD as Consulting Physician (Cardiology) PCP:BOONE EWING Referring MD: Boone Ewing MD documented in this encounter [facility] 11-13-2023 Instructions Will Cuadra MD - 11/13/2023 11:30 AM EDT Change daughter as primary contact. F/u in 2 months. [facility] 04-10-2023 History of Presen t illness Narrative Angelika Polanco Eliezer Date of visit: 04/10/2023 Date of : 1940 Age: 83 y.o. Patient Active Problem List Diagnosis Cervical spondylosis without myelopathy Iron deficiency anemia Coronary artery disease involving [place] coronary artery of [place] heart History of coronary artery bypass graft [...] FOR ANY FURTHER REFILLS. 90 tablet 3 yijofcsy-btul-QT-calcium &mins (THERAGRAN-M) 9 mg iron-400 mcg tablet [...] Sat, Sun (2.5mg Thu, Thu, Thu) sod vlfbi-bwtbpl-cuznel bottle (NEILMED SINUS RINSE COMPLETE) packet with [...] palpitations. 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 CABGX2/LIMAX1/SVGX1/EVH LEFT UPPER LEG/MINA N/A 11/03/2018 Performed by Kel Sherman MD at [facility] Cardiac catheterization N/A 11/01/2018 Performed by Kalin Hamm MD at [facility] CARDIAC CATH LABS Coronary angiogram and left ventricular gram/pressure N/A 11/01/2018 Performed by Kalin Hamm MD at [facility] CARDIAC CATH LABS HYSTERECTOMY 1986 complete INJECTION MEDIAL BRANCH NERVE BLOCK: right C34 45 56mbb Right 09/07/2017 Performed by Kel Serna MD at [facility] INJECTION MEDIAL BRANCH NERVE BLOCK: right C34 45 56mbb Right 07/31/2017 Performed by Kel Serna MD at [facility] RADIO FREQUENCY ABLATION: right C34 45 56 Right 06/21/2018 Performed by Kel Serna MD at [facility] RADIOFREQUENCY ABLATION SPINAL: right C34 45 56rfa Right 09/25/2017 Performed by Kel Serna MD at [facility] RADIOFREQUENCY TURBINATE NASAL Bilateral 08/23/2020 Performed by Eddie Santana MD PhD at [facility] SEPTOPLASTY Circumferential 08/23/2020 Performed by Eddie Santana MD PhD at [facility] TONSILLECTOMY TUBAL LIGATION Family History Problem [...] 0 min Stress: Stress Concern Present (11/25/2018) [place] [employer] - Occupational Stress Questionnaire Feeling of Stress : To some extent Social Connections: Moderately Integrated (11/25/2018) Social Connection and Isolation Panel [NHANES] Frequency of Communication with Friends and Family: More than three times a week Frequency of Social Gatherings with Friends and Family: Twice a week Attends [employer] Services: More than 4 times per year [...] by mouth 2 (two) times a day. movnlwqr-vtvs-RT-calcium &mins (THERAGRAN-M) 9 mg iron-400 mcg tablet [...] Referring Physician: Boone Ewing MD [address] [place] [address] [facility] Miscellaneous Notes Called patient to remind them to bring their most current copy of their medication list with them to their appt. Patient verbalizes understanding. documented [facility]23 Telephone encounter Note Called patient to remind them to bring their most current copy of their medication list with them to their appt. Patient verbalizes understanding. [facility] Evaluation note No assessment inform ation [facility] Work Phone: Evaluation note Diagnosis Essential hypertension, [...] pathological fracture (CMS/HCC) documented in this encounter [facility] HealthcareEvaluation note* Diagnosis Essential hypertension, benign (CMS/HCC)- [...] multiple joints (CMS/HCC) documented in this encounter [facility] HealthcareEvaluation note* Diagnosis HER2-positive carcinoma of right breast (CMS-HCC)- Primary Right breast cancer with T3 tumor, >5 cm in greatest dimension (CMS-HCC) documented in this encounter [facility]* Diagnosis ASCVD (arteriosclerotic cardiovascular disease)- Primary Unspecified cardiovascular disease Right breast cancer with T3 tumor, >5 cm in greatest dimension (CMS-HCC) documented in this encounter [facility]* Diagnosis HER2-positive carcinoma of right breast (CMS-HCC)- Primary Right breast cancer with T3 tumor, >5 cm in greatest dimension (CMS-HCC) documented in this encounter [facility]* Diagnosis HER2-positive carcinoma of right breast (CMS-HCC)- Primary Right breast cancer with T3 tumor, >5 cm in greatest dimension (CMS-HCC) documented in this encounter [facility]* Diagnosis HER2-positive carcinoma of right breast (CMS-HCC)- Primary Right breast cancer with T3 tumor, >5 cm in greatest dimension (CMS-HCC) documented in this encounter [facility]* Diagnosis Essential hypertension, [...] recurrent episode, moderate [facility] History of coronary artery bypass graft x 2- Primary Dyslipidemia Other and unspecified hyperlipidemia Primary hypertension Unspecified essential hypertension documented [facility]* Diagnosis Right breast cancer with T3 tumor, >5 cm in greatest dimension (CMS-HCC)- Primary documented in [facility]* Diagnosis Right breast cancer with T3 tumor, >5 cm in greatest dimension (CMS-HCC)- Primary HER2-positive carcinoma of right breast (CMS-HCC) Encounter for monitoring cardiotoxic drug therapy documented in this encounter [facility]* Diagnosis Right breast cancer with T3 tumor, >5 cm in greatest dimension (CMS-HCC)- Primary documented in this encounter [facility]* Diagnosis HER2-positive carcinoma of right breast (CMS-HCC)- Primary Right breast cancer with T3 tumor, >5 cm in greatest dimension (CMS-HCC) documented in this encounter [facility]* Diagnosis HER2-positive carcinoma of right breast (CMS-HCC)- Primary Encounter for monitoring cardiotoxic drug therapy Right breast cancer with T3 tumor, >5 cm in greatest dimension (CMS-HCC) documented in [facility]* Diagnosis HER2-positive carcinoma of right breast (CMS-HCC)- Primary Right breast cancer with T3 tumor, >5 cm in greatest dimension (CMS-HCC) documented in [facility] encounter [facility]* Diagnosis HER2-positive carcinoma of right breast (CMS-HCC)- Primary Right breast cancer with T3 tumor, >5 cm in greatest dimension (CMS-HCC) [facility] Diagnosis HER2-positive carcinoma of right breast (CMS-HCC)- Primary Encounter for monitoring cardiotoxic drug therapy documented [facility]* Diagnosis Essential hypertension, benign (CMS/HCC)- [...] fraction (HFpEF) (CMS/HCC) documented in this encounter [facility] HealthcareEvaluation note* Diagnosis Essential hypertension, benign (CMS/HCC)- [...] Hypertonicity of bladder documented in this encounter [facility] Healthcare[facility]* Diagnosis Right breast cancer with T3 tumor, >5 cm in greatest dimension (CMS-HCC)- Primary HER2-positive carcinoma of right breast (CMS-HCC) Chemotherapy induced diarrhea documented in this encounter [facility]* Diagnosis HER2-positive carcinoma of right breast (CMS-HCC)- Primary Right breast cancer with T3 tumor, >5 cm in greatest dimension (CMS-HCC) documented in this encounter [facility]* Diagnosis HER2-positive carcinoma of right breast (CMS-HCC)- Primary Right breast cancer with T3 tumor, >5 cm in greatest dimension (CMS-HCC) Encounter for monitoring cardiotoxic drug therapy Chemotherapy induced diarrhea documented in this encounter [facility]* Diagnosis Essential hypertension, [...] breast Invasive ductal carcinoma of breast, female, right- Primary Essential hypertension, benign (CMS/HCC)- Primary Essential hypertension, benign Invasive ductal carcinoma of breast, female, right Chronic heart failure with preserved ejection fraction [...] failure with preserved ejection fraction (HFpEF) (CMS/HCC) Urinary tract infection without hematuria, site unspecified documented in this encounter [facility] Healthcare[facility] note* Diagnosis Essential hypertension, benign (CMS/HCC)- [...] breast Invasive ductal carcinoma of breast, female, right- Primary Essential hypertension, benign (CMS/HCC)- Primary Essential hypertension, benign Invasive ductal carcinoma of breast, female, right Chronic heart failure with preserved ejection fraction [...] failure with preserved ejection fraction (HFpEF) (CMS/HCC) Medicare annual wellness visit, subsequent- Primary Hypothyroidism, adult (CMS/HCC) Other specified acquired hypothyroidism Invasive ductal carcinoma of breast, female, right Dyslipidemia (CMS/HCC) Other and unspecified hyperlipidemia documented in this encounter [facility] HealthcareEvaluation note* Diagnosis HER2-positive carcinoma of right breast (CMS-HCC)- Primary Right breast cancer with T3 tumor, >5 cm in greatest dimension (CMS-HCC) Encounter for monitoring cardiotoxic drug therapy Chemotherapy induced diarrhea [facility] Diagnosis HER2-positive carcinoma of right breast (CMS-HCC)- Primary Right breast cancer with T3 tumor, >5 cm in greatest dimension (CMS-HCC) Encounter for monitoring cardiotoxic drug therapy Chemotherapy induced diarrhea [facility] Diagnosis Right breast cancer with T3 tumor, >5 cm in greatest dimension (CMS-HCC) [facility] Diagnosis HER2-positive carcinoma of right breast (CMS-HCC)- Primary Right breast cancer with T3 tumor, >5 cm in greatest dimension (CMS-HCC) Encounter for monitoring cardiotoxic drug therapy documented in [facility] Diagnosis HER2-positive carcinoma of right breast (CMS-HCC)- Primary Right breast cancer with T3 tumor, >5 cm in greatest dimension (CMS-HCC) documented in this [facility] Diagnosis Onset Date Resolution Status Admit Date Benign essential HTN acute Dec 10:51am Chronic heart failure with preserved ejection fraction (HFpEF) acute December 12 10:51am Invasive ductal carcinoma of right breast in female acute December 12, 2024 10:51am MDD (major depressive disorder), recurrent episode, moderate acute December 12 10:51am Rheumatoid arthritis involving multiple joints acute 2024 10:51am [facility] Work Phone: Evaluation note* Diagnosis HER2-positive carcinoma of right breast (CMS-HCC)- Primary Right breast cancer with T3 tumor, >5 cm in greatest dimension (CMS-HCC) documented in this encounter [facility]ructionsNot on filedocumented in this encounter [facility]ructionsNot on filedocumented in this encounter [facility]InstructionsNot on filedocumented in this encounter [facility] on filedocumented in this encounter [facility]ructionsNot on filedocumented in this encounter [facility] on filedocumented in this encounter [facility] on filedocumented in this encounter [facility] on filedocumented in this encounter [facility] on filedocumented in this encounter [facility]Not on filedocumented in this encounter [facility]InstructionsNot on filedocumented in this encounter [facility]ructionsNot on filedocumented in this encounter [facility] SystemInstructionsNot on filedocumented in this encounter [facility] SystemInstructionsNot on filedocumented in this encounter [facility] SystemReason for referral (narrative)No reason for referral information [facility]: Reason for visit Narrative* Episode Based Medications (Routine) - Authorized Specialty Diagnoses / Procedures Referred By Louie mae Referred To Contact Diagnoses HER2-positive carcinoma of right breast (CMS-HCC) Right breast cancer with T3 tumor, >5 cm in greatest dimension (CMS-HCC) Procedures INJECTION, PERTUZUMAB, TRASTUZUMAB, AND HYALURONIDASE-ZZXF, [place] 10 [place] [address] [place] [address] [address] [place] [address] Phone: tel: fax: Carey Pereira [facility] - Medical Oncology [address] [place] [phone] Phone: tel: fax: Referral ID Status Reason Start Date Expiration Date V isits Requested Visits Authorized [id number] Authorized 11/18/2023 11/17/2024 11 11 [facility] Summary Purpose Family History [...] Documents on File Type Date Recorded 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 and Living Will [...] Complaint Rheumatoid arthritis /immunosuppression Chief Complaint Unknown Chief Complaint Admit Date Established Patient December 12, 2024 10:51am Reason for Visit Admit Date Benign essential HTN December 12, 2024 10:51am Chronic heart failure with p reserved ejection fraction (HFpEF) December 12, 2024 10:51am Invasive ductal carcinoma of right breas t in female December 12, 2024 10:51am MDD (major depressive disord er), recurrent episode, moderate December 12, 2024 10:51am Rheumatoid arthritis involving multiple joints December 12, 2024 10:51am Reason for Referral Specialty Diagnoses / Procedures Referred By Louie mae Referred To Contact Diagnoses Right breast cancer with T3 tumor, >5 cm in greatest dimension (CMS-HCC) HER2-positive carcinoma of right breast (CMS-HCC) Encounter for monitoring cardiotoxic drug therapy Procedures Echo complete W/Strain Imaging Will Cuadra MD [address] [place] [address] [address] [place], [place] [id number] Referral ID Status Reason Start Date Expiration Date V isits Requested Visits Authorized [id number] Pending Review 11/19/2023 11/18/2024 1 1 Additional Source Comments INFORMATION SOURCE (unrecogn ized section and content) DATE CREATED AUTHOR 05/10/2021 [facility] DATE CREATED AUTHOR AUTHOR'S ORGANIZ ATION 04/02/2022 [facility] DATE CREATED AUTHOR AUTHOR'S ORGANIZ ATION 03/26/2024 [facility] DATE CREATED AUTHOR AUTHOR'S ORGANIZ ATION 06/30/2024 [facility] DATE CREATED AUTHOR AUTHOR'S ORGANIZ ATION 09/17/2024 [facility] EPIC DATE CREATED AUTHOR AUTHOR'S ORGANIZ ATION [facility]/20[facility] Care Teams (unrecognized sec tion and content) Team Status: Inactive Member Role Status Dates Carin Brady DO Primary Care Provider Active Jan Solares MD Attending Provider Active Team Status: Active Member Role Status Dates Carin Brady DO Primary Care Provider Active Team Status: Inactive Member Role Status Dates Boone Ewing MD Attending Provider Active Star t: November 03, 2023 End: November 03, 2023 Patent Paralegal Relationship Specialty Start Date End Date Boone Ewing MD [address] [place] [phone] PCP - General Family Medicine 06/03/23 Patent Paralegal Relationship Specialty Start Date End Date Boone Ewing MD [address] [place] [address] PCP - General Family Medicine 06/03/23 Patent Paralegal Relationship Specialty Start Date End Date Boone Ewing MD [address] [place] [address] PCP - General Family Medicine 06/03/23 Patent Paralegal Relationship Specialty Start Date End Date Boone Ewing MD [address] [place] [address] PCP - General Family Medicine 06/03/23 Patent Paralegal Relationship Specialty Start Date End Date Boone Ewing MD [address] [place] [address] PCP - General Family Medicine 02/09/24 Patent Paralegal Relationship Specialty Start Date End Date Boone Ewing MD [address] [place] [address] PCP - General Family Medicine 02/09/24 Patent Paralegal Relationship Specialty Start Date End Date Boone Ewing MD [address] [place] [address] PCP - General Family Medicine 02/09/24 Patent Paralegal Relationship Specialty Start Date End Date Boone Ewing MD [address] [place] [address] PCP - General Family Medicine 02/09/24 Patent Paralegal Relationship Specialty Start Date End Date Boone Ewing MD [address] [place] [address] PCP - General Family Medicine 02/09/24 Patent Paralegal Relationship Specialty Start Date End Date Boone Ewing MD [address] [place] [address] PCP - General Family Medicine 02/09/24 Patent Paralegal Relationship Specialty Start Date End Date Boone Ewing MD [address] [place] [address] PCP - General Family Medicine 06/03/23 Patent Paralegal Relationship Specialty Start Date End Date Boone Ewing MD [address] [place] [address] PCP - General Family Medicine 06/03/23 Patent Paralegal Relationship Specialty Start Date End Date Boone Ewing MD [address] [facility] [place] [address] PCP - General Family Medicine 12/23/21 Patent Paralegal Relationship Specialty Start Date End Date Boone Ewing MD [address] [place] [facility] [address] PCP - General Family Medicine 12/23/21 Patent Paralegal Relationship Specialty Start Date End Date Boone Ewing MD [address] [place] [facility] [address] PCP - General Family Medicine 12/23/21 Patent Paralegal Relationship Specialty Start Date End Date Boone Ewing MD [address] [place] [facility] [place] [address] PCP - General Family Medicine 12/23/21 Patent Paralegal Relationship Specialty Start Date End Date Boone Ewing MD [address] [place] [facility] [place] [address] PCP - General Family Medicine 12/23/21 Patent Paralegal Relationship Specialty Start Date End Date Boone Ewing MD PCP - General Family Medicine 12/23/21 Patent Paralegal Relationship Specialty Start Date End Date Boone Ewing MD PCP - General Family Medicine 12/23/21 Patent Paralegal Relationship Specialty Start Date End Date Boone Ewing MD PCP - General Family Medicine 12/23/21 Patent Paralegal Relationship Specialty Start Date End Date Boone Ewing MD PCP - General Family Medicine 12/23/21 Patent Paralegal Relationship Specialty Start Date End Date Boone Ewing MD PCP - General Family Medicine 12/23/21 Patent Paralegal Relationship Specialty Start Date End Date Boone Ewing MD PCP - General [facility] Medicine 12/23/21 Patent Paralegal Relationship Specialty Start Date End Date Boone Ewing MD PCP - General Family Medicine 12/23/21 Patent Paralegal Relationship Specialty Start Date End Date Boone Ewing MD PCP - General [facility] Medicine 12/23/21 Patent Paralegal Relationship Specialty Start Date End Date Boone Ewing MD PCP - [facility] 12/23/21 Patent Paralegal Relationship Specialty Start Date End Date Boone Ewing MD [address] [place] [phone] PCP - General Family Medicine 02/09/24 Patent Paralegal Relationship Specialty Start Date End Date Boone Ewing MD [address] [place] [address] PCP - General Family Medicine 02/09/24 Patent Paralegal Relationship Specialty Start Date End Date Boone Ewing MD [address] [place] [address] PCP - General Family Medicine 02/09/24 Patent Paralegal Relationship Specialty Start Date End Date Boone Ewing MD [address] [place] [address] PCP - General Family Medicine 06/03/23 Patent Paralegal Relationship Specialty Start Date End Date Boone Ewing MD PCP - General Family Medicine 02/09/24 Patent Paralegal Relationship Specialty Start Date End Date Boone Ewing MD [address] [place] [phone] PCP - General [facility] 06/03/23 Patent Paralegal Relationship Specialty Start Date End Date Boone Ewing MD [address] [place] [address] PCP - [facility] 06/03/23 Patent Paralegal Relationship Specialty Start Date End Date Boone Ewing MD PCP - General Family Medicine 02/09/24 Patent Paralegal Relationship Specialty Start Date End Date Boone Ewing MD PCP - [facility] Medicine 02/09/24 Patent Paralegal Relationship Specialty Start Date End Date Boone Ewing MD PCP - General Family Medicine 02/09/24 Patent Paralegal Relationship Specialty Start Date End Date Boone Ewing MD PCP - General Family Medicine 02/09/24 Patent Paralegal Relationship Specialty Start Date End Date Boone Ewing MD PCP - General Family Medicine 02/09/24 Patent Paralegal Relationship Specialty Start Date End Date Boone Ewing MD [address] [place] [address] PCP - General Family Medicine 06/03/23 Patent Paralegal Relationship Specialty Start Date End Date Boone Ewing MD [address] [place] [address] PCP - General Family Medicine 06/03/23 Patent Paralegal Relationship Specialty Start Date End Date Boone Ewing MD PCP - General Family Medicine 02/09/24 Patent Paralegal Relationship Specialty Start Date End Date Boone Ewing MD [address] [place] [address] PCP - General Family Medicine 06/03/23 Patent Paralegal Relationship Specialty Start Date End Date Boone Ewing MD PCP - General Family Medicine 02/09/24 Patent Paralegal Relationship Specialty Start Date End Date Boone Ewing MD PCP - General Family Medicine 02/09/24 Patent Paralegal Relationship Specialty Start Date End Date Boone Ewing MD PCP - General Family Medicine 02/09/24 Patent Paralegal Relationship Specialty Start Date End Date Boone Ewing MD PCP - General Family Medicine 02/09/24 Patent Paralegal Relationship Specialty Start Date End Date Boone Ewing MD PCP - General Family Medicine 02/09/24 Team Status: Active Member Role Status Dates Boone Ewing MD Primary Care Provider Active Team Status: Inactive Member Role Status Dates Boone Ewing MD Primary Care Provider Active S tart: December 12, 2024 End: December 12, 2024 Boone Ewing MD Attending Provider Active Star t: December 12, 2024 End: December 12, 2024 Goals (unrecognized section and content) Goals may [...] alternate sectionNot on filedocumented as of this encounter Reason for Visit (unrecogniz ed section and content) Reason Comments Chemotherapy Phesgo Injection Specialty Diagnoses / Procedures Referred By Louie t Referred To Contact Diagnoses HER2-positive carcinoma of right breast (CMS-HCC) Right breast cancer with T3 tumor, >5 cm in greatest dimension (CMS-HCC) Procedures INJECTION, PERTUZUMAB, TRASTUZUMAB, AND HYALURONIDASE-ZZXF, PER 10 MG Will Cuadra MD [facility] [facility] [address] [place] [address] Phone: tel: fax: Carey Pereira [facility] - Medical Oncology [address] [place] [phone] Phone: tel: fax: Referral ID Status Reason Start Date Expiration Date V isits Requested Visits Authorized [id number] Authorized 11/18/2023 11/17/2024 11 11 Reason Comments Chemotherapy Phesgo Specialty Diagnoses / Procedures Referred By Louie mae Referred To Contact Diagnoses HER2-positive carcinoma of right breast (CMS-HCC) Right breast cancer with T3 tumor, >5 cm in greatest dimension (CMS-HCC) Procedures INJECTION, PERTUZUMAB, TRASTUZUMAB, AND HYALURONIDASE-ZZXF, PER 10 MG Will Cuadra MD [address] [facility] [address] [place] [id number] [facility] [address] [place] [phone] Reason Comments Med Refill Reason Comments Follow-up 6mFell on Thursday, wo rried about concussion Reason Comments Injection Phesgo Reason Comments Follow-up EST PT 12 MO FU L/S RDG - echo 03/12 - sched appt w/pt Reason Comments Follow-up Reason Comments Follow-up uti Reason Comments Follow-up EST PT F/U 1 YR L/S MS NO TESTS SCHED W/PT Reason Comments Breast Cancer Consult Specialty Diagnoses / Procedures Referred By Contac t Referred To Contact Hematology/Oncology Diagnoses Invasive ductal carcinoma of breast, female, right (CMS-HCC) Procedures [place] OFFICE OUTPATIENT VISIT 60-74 MINS HIGH MDM AMB REFERRAL TO HEMATOLOGY / ONCOLOGY Boone Ewing MD [address] [place] [address] Will Cuadra MD [address] [facility] [address] [place] [address] Referral ID Status Reason Start Date Expiration Date V isits Requested Visits Authorized [id number] Pending Review 11/11/2023 05/09/2024 1 1 Reason Comments Injection phesgo Reason Comments Injection Phesgo Specialty Diagnoses / Procedures Referred By Contac t Referred To Contact Diagnoses HER2-positive carcinoma of right breast (CMS-HCC) Right breast cancer with T3 tumor, >5 cm in greatest dimension (CMS-HCC) Procedures INJECTION, PERTUZUMAB, TRASTUZUMAB, AND HYALURONIDASE-ZZXF, PER 10 MG Will Cuadra MD [address] [facility] [address] [place] [address] Phone: tel: fax: [facility] - Medical Oncology [address] [place] [phone] Phone: tel: fax: Reason Onset Date Comments Med Refill 07/01/2024 Reason Comments Medicare Annual Wellness Visit Subsequen t wellness Follow-up Fell last week tende r on right side rib area Referral ID Status Reason Start Date Expiration Date V isits Requested Visits Authorized [id number] Authorized 11/18/2023 02/18/2025 17 17 FOR RECORDS PERTAINING TO PATIENTS WHO ARE [...] BE BASED ON THE PRIMARY CLINICAL RECORDS. [facility] [employer] [facility]. provides no warranty or guarantee of the accuracy or completeness of information in this document.
[2024-12-30 11:06] LABS: Anion Gap 10.8; Blood Urea Nitrogen 12.0 mg/dL (7.0-18.0); Calcium 8.9 mg/dL (8.5-10.1); Carbon Dioxide 27.4 mmol/L (21.0-32.0); Chloride 105 mmol/L (98-107); Estimated GFR (African America >60 (>=60 mL/min/1.73m^2); Estimated GFR (Non-African Ame >60 (>=60 mL/min/1.73m^2); Glucose 89 mg/dL (74-106); Potassium 3.2 mmol/L (3.5-5.1); Sodium 140 mmol/L (136-145)
--- NOTE | 2024-12-30 11:13 | CT_ITS ---
The [address] [address] Patient Name: TRAVIS GONCALVES MRN: [id number] date: 1940 Sex: F Assigned Patient Location: ER Current Patient Location: ER Accession/Order Number: [id number] Exam Date: 12/30/2024 12:06 Report Date: 12/30/2024 12:45 At the request of: TRU HUSAIN MD Procedure: CT abdomen pelvis w con CT abdomen pelvis w con 12/30/2024 12:13 PM SIGNS AND SYMPTOMS: Vaginal bleeding, hematuria, history of breast cancer currently undergoing treatment TECHNIQUE: Multidetector ct axial images of the abdomen and pelvis were obtained with IV contrast. Multiplanar reformats were performed and reviewed to further define anatomy and possible pathology. CT was performed with one or more of the following dose reduction techniques: Automated exposure control, adjustment of the mA and/or kV according to patient size, or use of iterative reconstruction technique. COMPARISON: None. FINDINGS: Lower Chest: There is a hiatal hernia with gastric fundus in the lower mediastinum. Atherosclerotic changes are noted in the thoracic aorta. There is scarring at the right lung base. ABDOMEN: Liver: There is a 1.1 cm hypoattenuating structure within the left hepatic possibly representing a cyst or hemangioma. There is a 0.9 cm calcified structure in the right hepatic lobe possibly representing a granuloma previous treated metastatic disease.. Bile Ducts: Normal caliber. Gallbladder: The gallbladder wall is enhancing enhancing versus hyperattenuating polyps or stones along the gallbladder wall. There is accompanying pericholecystic edema. Pancreas: Within normal limits. Spleen: There is a heterogeneously enhancing 2.9 cm structure within the spleen which is of uncertain etiology. Metastatic disease is not excluded. Adrenals: Within normal limits. Kidneys: There is a simple cyst in the left renal cortex requiring no further follow-up. Pelvis: Reproductive Organs: No pelvic masses. There is evidence of prior hysterectomy. Ureters: Within normal limits. Bladder: Within normal limits. Bowel: There are uncomplicated colonic diverticula. There is wall thickening along the wall of the stomach possibly representing gastritis. There is wall thickening along the rectum and sigmoid colon possibly representing colitis. Mesenteric Lymph Nodes: No enlarged mesenteric lymph nodes. Peritoneum: A small amount of free fluid is noted in the pelvis which may be reactive. Vessels: Atherosclerotic changes are noted in the abdominal aorta and its branches. Retroperitoneum: Within normal limits. Abdominal Wall: Within normal limits. Bones: There is a dextro convex curvature lumbar spine. Degenerative changes are noted in the lumbar spine, hips, and sacroiliac joints. CT/CT abdomen pelvis w con IMPRESSION: There is wall thickening along the stomach possibly representing gastritis. There is a hiatal hernia with gastric fundus in the lower mediastinum. There is wall thickening along the rectum and sigmoid colon possibly representing colitis. The gallbladder wall is enhancing enhancing versus hyperattenuating polyps or stones along the gallbladder wall. There is accompanying pericholecystic edema. There is ongoing clinical concern for acute cholecystitis, follow-up gallbladder ultrasound or nuclear medicine hepatobiliary imaging may be helpful. A small amount of free fluid is noted in the pelvis which may be reactive. There is a heterogeneously enhancing 2.9 cm structure within the spleen which is of uncertain etiology. Metastatic disease is not excluded. There is a 0.9 cm calcified structure in the right hepatic lobe possibly representing a granuloma previous treated metastatic disease. There is a 1.1 cm hypoattenuating structure within the left hepatic possibly representing a cyst or hemangioma. Metastatic disease is not excluded. Impression dictated by: Hermes Angeles M.D. 12/30/2024 12:45 PM Dictation Location: [place] [address] Electronically authenticated by: [id number] Y Date: 12/30/2024 12:45
[2024-12-30 11:16] LABS: Cast Seen? NONE SEEN #/LPF (NONE SEEN); Crystals Seen? None Seen #/HPF (None Seen)
--- NOTE | 2024-12-30 11:42 | PC.NURSE ---
pt back from ct
--- NOTE | 2024-12-30 12:10 | PC.NURSE ---
non stick, dry dressing applied to pt left forearm
--- NOTE | 2024-12-30 12:58 | US_ITS ---
The [address] [address] Patient Name: TRAVIS GONCALVES MRN: [id number] date: 1940 Sex: F Assigned Patient Location: ER Current Patient Location: ER Accession/Order Number: [id number] Exam Date: 12/30/2024 13:20 Report Date: 12/30/2024 13:53 At the request of: TRU HUSAIN MD Procedure: US right upper quadrant LIMITED ABDOMINAL ULTRASOUND: CLINICAL HISTORY: Abnormal CT scan COMPARISON: CT abdomen and pelvis performed earlier. TECHNIQUE: Grayscale and color Doppler images of the right upper quadrant organs were obtained. FINDINGS: Pancreas: Visualized portions appear unremarkable. Liver: Fatty infiltration. Calcified granuloma. 9 mm cyst. Gallbladder: Gallbladder sludge. Wall thickening. No pericholecystic fluid. Negative Lezama sign. CBD: 4.7 mm RT KIDNEY: No Hydronephrosis US/US right upper quadrant IMPRESSION: GALLBLADDER SLUDGE WITH WALL THICKENING. NO PERICHOLECYSTIC FLUID. DEVELOPING ACUTE CHOLECYSTITIS IS OF CLINICAL CONCERN, FURTHER EVALUATION WITH HIDA SCAN IS SUGGESTED. FATTY INFILTRATION OF THE LIVER.. Impression dictated by: Eliel Barton Jr., D.O. 12/30/2024 1:53 PM Dictation Location: [place] [address] Electronically authenticated by: [id number] Y Date: 12/30/2024 13:53
== END 2024-12-30 14:23 | disposition home or self-care (01) ==
PROVIDERS: Emergency Provider Emergency Medicine; PCP Family Medicine
DX: N93.9 Abnormal uterine and vaginal bleeding, unspecified (principal); Z90.710 Acquired absence of both cervix and uterus
CPT/HCPCS: 36415; 74177; 76705; 80048; 81001; 85025; 99285; Q9967

== ENCOUNTER 2025-01-03 12:32 | Outpatient (OUT) | payer MEDICARE, OTHER, SELFPAY ==
--- NOTE | 2025-01-03 12:35 | US_ITS ---
Patient Name: TRAVIS GONCALVES MR#: [id number] : 1940 Exam Date: 01/03/2025 Ordering Doctor: DR. WILL CUADRA M.D. RADIOLOGY REPORT PROCEDURE: US BREAST RT LIMITED COMPARISON: US BREAST RT LIMITED, 03/21/2024. 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 FINDINGS: DIAGNOSTIC CATEGORY 6--KNOWN BIOPSY PROVEN MALIGNANCY: RIGHT BREAST RIGHT BREAST: Within the right breast at the 10 o'clock position there is a 5.8 x 1.7 by 3.9 cm heterogeneous hypoechoic mass with lobular margins. This appears slightly larger when compared to the previous study. And echogenic biopsy clip is noted at the periphery of mass. RECOMMENDATIONS: SURGICAL CONSULTATION. PLEASE NOTE: A NORMAL ULTRASOUND EXAMINATION DOES NOT EXCLUDE THE POSSIBILITY OF BREAST CANCER. A CLINICALLY SUSPICIOUS PALPABLE LUMP SHOULD BE BIOPSIED. Dictated by: Hermes Angeles MD on 01/03/2025 at 14:46 Approved by: Hermes Angeles MD on 01/03/2025 at 14:48
== END 2025-01-03 12:33 | disposition home or self-care (01) ==
LOC: US 12:32
PROVIDERS: PCP Family Medicine; Visit Provider Internal Medicine Hematology & Oncology
DX: C50.911 Malignant neoplasm of unspecified site of right female breast (principal); Z17.31 Human epidermal growth factor receptor 2 positive status; Z51.81 Encounter for therapeutic drug level monitoring; Z79.899 Other long term (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; K52.1 Toxic gastroenteritis and colitis; T45.1X5A Adverse effect of antineoplastic and immunosuppressive drugs, initial encounter; R92.8 Other abnormal and inconclusive findings on diagnostic imaging of breast
CPT/HCPCS: 76642

== ENCOUNTER 2025-01-13 13:52 | Outpatient (OUT) | payer MEDICARE, OTHER, SELFPAY ==
--- OUTSIDE RECORDS SUMMARY | 2025-01-13 14:00 | XMS_ITS | CCD ---
Author Organization [facility] Care Team Providers Care Mussel Farmer Name Role Phone DO Carin Brady Primary Care Provider MD Jan Solares Attending Provider CAMPOS, DR MONTOYA Admitting Unavailable HALADAY, DR MONTOYA Attending Unavailable NADERER, DR BOONE Waldrop Primary Care Unavailable HALADAY, DR MONTOYA Consulting Unavailable HALADAY, DR MONTOYA Admitting Unavailable HALADAY, DR MONTOYA Attending Unavailable NADERER, DR BOONE Waldrop Primary Care Unavailable HALADAY, DR MONOTYA Consulting Unavailable HALADAY, DR MONTOYA Admitting Unavailable [...] Consulting Unavailable MD Boone Ewing Attending Provider [phone] Boone Ewing MD Primary Care Provider Boone Ewing Attending Unavailable Nadereliza, Boone Admitting Unavailable Haladadylan, Jan Attending Unavailable Haladadylan, Jan Admitting Unavailable Nadereliza, Boone Primary Care Unavailable Boone Ewing MD Primary Care Provider [phone] Boone Ewing MD Primary Care Provider [phone] Marti WALSH, Boone Primary Care Provider [phone] Marti WALSH, Boone Primary Care Provider NADZENAR, [...] Provider Boone Ewing MD Primary Care Provider [phone] Boone Ewing MD Attending Provider [phone] NADMADELINE, BOONE Referring Unavailable NADERER, BOONE Primary [...] Referring Unavailable NADERER, BOONE Primary Care Unavailable MAKDylan JAN Booker Referring Unavailable NADERER, BOONE Primary Care Unavailable [...] Referring Unavailable NADERER, BOONE Primary Care Unavailable Naderer , Boone Primary Care Provider Allergies Allergy Classification Reported Allergen(s) Allergy Type [...] 12/05/2018 Active amLODIPine 5 mg oral tablet (20 sources) Dihydropyridine Calcium Channel Ramiro Start: 12-18-2018 take 1 tablet by mouth in the morning amLODIPine (NORVASC) 5 mg tablet Take 1 tablet (5 mg total) by mouth in the morning. 1 12/18/2018 Active aspirin 81 mg oral tablet (20 sources) [...] capsule (20 sources) Serotonin Reuptake Inhibitor Start: 08-30-2024 FLUoxetine (PROzac) 10 mg capsule Take by mouth. 10/23/2024 Active Start: 05-09-2024 take 1 capsule by [...] EVERY DAY 90 tablet 3 11/02/2024 Active levothyroxine sodium 0.05 mg oral tablet (20 sources) l-Thyroxine Start: 09-21-2024 take 1 tablet by mouth once daily Levothyroxine 50 mcg tablet Active 50 MCG PO Daily December 09, 2024 12:00am Complies with drug therapy Start: 10-15-2017 End: 12-09-2024 take 1 tablet [...] oral tablet (20 sources) beta-Adrenergic Ramiro Start: 11-28-2024 take 1 tablet by mouth once daily [...] 3 01/08/2022 Active Multiple Vitamin (multivitamin) tablet (18 sources) take 1 tablet by [facility] th once daily Multiple Vitamin (multivitamin) tablet Take 1 tablet by mouth Daily Active tbxxfrxa-vdig-BR-calcium &mi ns (THERAGRAN-M) 9 mg iron-400 mcg tablet (20 sources) gzlwwsmf-hykh-US -calcium &mins (THERAGRAN-M) 9 mg iron-400 mcg tablet Take 1 tablet by mouth in the morning. Active swlqnldz-bzpd-XM -calcium &mins (THERAGRAN-M) 9 mg iron-400 mcg [...] tablet (20 sources) Cholinergic Muscarinic Antagonist Start: 06-26-2023 End: 07-01-2024 take 1 tablet by mouth once daily Oxybutynin Chloride 10 mg tablet extended release 24hr Active 10 MG PO Daily December 09, 2024 12:00am Complies with drug therapy Start: 04-10-2023 take 1 tablet by [facility] [...] 2017 12:00am December 09, 2024 12:12pm sod prqbz-gpsgqn-wnrkww bottle (NEILMED SINUS RINSE COMPLETE) packet with rinse device nasal solution (2 sources) Start: 08-22-2020 End: 04-10-2023 take 1 dose nasal route twice daily sod lzrnb-cxuzjp-jfot ez bottle (NEILMED SINUS RINSE COMPLETE) packet with rinse device nasal solution Administer 1 packet into each nostril 2 (two) times a day. 60 packet 0 08/22/2020 04/10/2023 Discontinued (Therapy completed) Start: 08-22-2020 take 1 dose nasal ro kobuk twice daily sod hjfya-qbtics-iifcfq bottle (NEILMED SINUS RINSE COMPLETE) packet with [...] Coronary arteriosclerosis; Translations: [Atherosclerotic heart disease of [place] coronary artery without angina pectoris] Onset: 10-29-2018 Resolved: 10-21-2019 03-23-2023 Chronic Disorders of lipid metabolism (20 sources) Dyslipidemia; Translations: [Hyperlipidemia, unspecified] Onset: 10-21-2019 03-23-2023 Chronic Essential hypertension (20 sources) Benign essential hypertension; Translations: [Essential (primary) hypertension] Onset: 03-23-2023 03-23-2023 Chronic Immunizations and screening for infectious disease (1 source) Raised antibody titer; Translations: [Raised antibody titer] Onset: 03-16-2024 Episodic Mood disorders (20 sources) Moderate recurrent major depression; Translations: [Major depressive disorder, recurrent, moderate] Onset: 05-09-2024 05-09-2024 Chronic Osteoporosis (20 sources) Senile osteoporosis; Translations: [Age-related osteoporosis without current pathological fracture] Onset: 03-23-2023 02-11-2024 Chronic Other diseases of bladder and urethra (20 [...] Date Documented Da te Episodic/Chronic Administrative/social admission (19 sources) Patient care statuses; Translations: [Encounter for nonprocreative genetic counseling] Onset: 4 11-18-2023 Episodic Deficiency and other anemia (20 sources) Iron deficiency anemia secondary to inadequate dietary iron intake; Translations: [Other iron deficiency anemias] Onset: 3 03-23-2023 Episodic Deficiency and other anemia (20 sources) Iron deficiency anemia; Translations: [Iron deficiency anemia, unspecified] Onset: 9 11-26-2018 Episodic Diabetes mellitus without complication (20 sources) Prediabetes; Translations: [Prediabetes] Onset: 3 09-22-2023 Episodic E Codes: Adverse effects of medical [...] 10-21-2019 Episodic Other aftercare (2 sources) Other oil heaterman (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; Translations: [OTH PENITENTIARY CURRENT DRUG THERAPY] Onset: 2 Episodic Other aftercare (20 sources) Long-term current use of drug therapy; Translations: [Other oil heaterman (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] Onset: 4 09-22-2023 Episodic Other aftercare (1 source) Patient encounter status; Translations: [Other shelter (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] Onset: 4 09-22-2023 Episodic Other aftercare (1 source) Drug therapy finding; Translations: [Encounter for therapeutic drug level monitoring] 11-19-2023 Episodic Other aftercare (1 source) Encounter for therapeutic drug level monitoring; Translations: [Encounter for therapeutic drug level monitoring] Onset: 4 Episodic Other gastrointestinal disorders (19 sources) Diarrhea due to drug; Translations: [Toxic [...] Resolved: 0 10-21-2019 Chronic Urinary tract infections (20 sources) Acute cystitis; Translations: [Acute cystitis with hematuria] Onset: 4 Resolved: 4 09-22-2023 Episodic Results Test Name Value Interpretation Reference Range Facility ESR (Bld) [Velocity]on 01-11 [facility] Sedimentation rate, automate don 01-11-2025 ESR (Bld) [Velocity] 13 mm/h 0 - 30 mm/h [facility] Comment on above: PERFORMED AT [facility] [address], [place] [address] CBC WITH AUTO DIFFERENTIALon 12-13-2024 BASOPHILS ABSOLUTE COUNT (10*3/UL) BY AUTOMATED COUNT 0.1 10*3/uL Normal 0.0-0.2 [facility] Comment on above: Order Comment: Abnor mal CBC with auto diff reflexes to a manual diff Performed By: #### C BCA, CMP, LIVR, 32486-9 #### [facility] ([id number]) [address], [address] [place] [address] BASOPHILS RELATIVE PERCENT BY AUTOMATED COUNT 2.1 % Normal [facility] Comment on above: Order Comment: Abnor mal CBC with auto diff reflexes to a manual diff Performed By: #### C BCA, CMP, LIVR, 80620-7 #### [facility] ([id number]) [address], [address] [place] [address] CELLAVISION DIFFERENTIAL TYPE AUTOMATED DIFFERENTIAL Normal [facility] Comment on above: Order Comment: Abnor mal CBC with auto diff reflexes to a manual diff Performed By: #### C BCA, CMP, LIVR, 18895-3 #### [facility] ([id number]) [address], [address] [place] [address] Eosinophils (Bld) [#/Vol] 0.3 10*3/uL Normal 0.0-0.4 [facility] Comment on above: Order Comment: Abnor mal CBC with auto diff reflexes to a manual diff Performed By: #### C BCA, CMP, LIVR, 54947-5 #### [facility] ([id number]) [address], [address] [place] [address] EOSINOPHILS RELATIVE PERCENT BY AUTOMATED COUNT 5.1 % Normal [facility] Comment on above: Order Comment: Abnor mal CBC with auto diff reflexes to a manual diff Performed By: #### C BCA, CMP, LIVR, 77671-2 #### [facility] ([id number]) [address], [address] [place] [address] Erythrocyte distribution width (RBC) [Ratio] 13.9 % Normal 11.5-15 [facility] Comment on above: Order Comment: Abnor mal CBC with auto diff reflexes to a manual diff Performed By: #### C BCA, CMP, LIVR, 49124-5 #### [facility] ([id number]) [address], [address] [place] [address] Hematocrit (Bld) [Volume fraction] 40.4 % Normal 35-47 [facility] Comment on above: Order Comment: Abnor mal CBC with auto diff reflexes to a manual diff Performed By: #### C BCA, CMP, LIVR, 16143-4 #### [facility] ([id number]) [address], [address] [place] [address] Hemoglobin (Bld) [Mass/Vol] 13.3 g/dL Normal 11.7-15.5 [facility] Comment on above: Order Comment: Abnor mal CBC with auto diff reflexes to a manual diff Performed By: #### C BCA, CMP, LIVR, 57070-5 #### [facility] ([id number]) [address], [address] [place] [address] LYMPHOCYTES ABSOLUTE COUNT (10*3/UL) BY AUTOMATED COUNT 1.2 10*3/uL Normal 1.0-3.5 [facility] Comment on above: Order Comment: Abnor mal CBC with auto diff reflexes to a manual diff Performed By: #### C BCA, CMP, LIVR, 47639-0 #### [facility] ([id number]) [address], [address] [place] [address] LYMPHOCYTES RELATIVE PERCENT BY AUTOMATED COUNT 18.8 % Normal [facility] Comment on above: Order Comment: Abnor mal CBC with auto diff reflexes to a manual diff Performed By: #### C BCA, CMP, LIVR, 96451-8 #### [facility] ([id number]) [address], [address] [place] [address] MCH (RBC) [Entitic mass] 31.2 pg Normal 27-34 [facility] Comment on above: Order Comment: Abnor mal CBC with auto diff reflexes to a manual diff Performed By: #### C BCA, CMP, LIVR, 90796-1 #### [facility] ([id number]) [address], [address] [place] [address] MCHC (RBC) [Mass/Vol] 33.0 g/dL Normal 32-36 [facility] Comment on above: Order Comment: Abnor mal CBC with auto diff reflexes to a manual diff Performed By: #### C BCA, CMP, LIVR, 04083-8 #### [facility] ([id number]) [address], [address] [place] [address] MCV (RBC) [Entitic vol] 95 fL Normal 80-100 [facility] Comment on above: Order Comment: Abnor mal CBC with auto diff reflexes to a manual diff Performed By: #### C BCA, CMP, LIVR, 20487-1 #### [facility] ([id number]) [address], [address] [place] [address] MONOCYTES ABSOLUTE COUNT (10*3/UL) BY AUTOMATED COUNT 0.6 10*3/uL Normal 0.0-0.9 [facility] Comment on above: Order Comment: Abnor mal CBC with auto diff reflexes to a manual diff Performed By: #### C BCA, CMP, LIVR, 53360-3 #### [facility] ([id number]) [address], [address] [place] [address] MONOCYTES RELATIVE PERCENT BY AUTOMATED COUNT 10.1 % Normal [facility] Comment on above: Order Comment: Abnor mal CBC with auto diff reflexes to a manual diff Performed By: #### C BCA, CMP, LIVR, 91938-4 #### [facility] ([id number]) [address], [address] [place] [address] NEUTROPHILS ABSOLUTE COUNT BY AUTOMATED COUNT 4.0 10*3/uL Normal 1.5-6.6 [facility] Comment on above: Order Comment: Abnor mal CBC with auto diff reflexes to a manual diff Performed By: #### C BCA, CMP, LIVR, 81700-3 #### [facility] ([id number]) [address], [address] [place] [address] NEUTROPHILS RELATIVE PERCENT BY AUTOMATED COUNT 63.9 % Normal [facility] Comment on above: Order Comment: Abnor mal CBC with auto diff reflexes to a manual diff Performed By: #### C BCA, CMP, LIVR, 85899-4 #### [facility] ([id number]) [address] [place] [address] Platelet mean volume (Bld) [Entitic vol] 9.3 fL Normal 7-12 [facility] Comment on above: Order Comment: Abnor mal CBC with auto diff reflexes to a manual diff Performed By: #### C BCA, CMP, LIVR, 93200-0 #### [facility] ([id number]) [address], [address] [place] [address] Platelets (Bld) [#/Vol] 286 10*3/uL Normal 150-450 [facility] Comment on above: Order Comment: Abnor mal CBC with auto diff reflexes to a manual diff Performed By: #### C BCA, CMP, LIVR, 10407-4 #### [facility] ([id number]) [address], [address] [place] [address] RBC COUNT 4.26 X10E12/L Normal 3.8-5.2 [facility] Comment on above: Order Comment: Abnor mal CBC with auto diff reflexes to a manual diff Performed By: #### C BCA, CMP, LIVR, 83270-6 #### [facility] ([id number]) [address], [address] [place] [address] WBC (Bld) [#/Vol] 6.3 10*3/uL Normal 4-11 [facility] Comment on above: Order Comment: Abnor mal CBC with auto diff reflexes to a manual diff Performed By: #### C BCA, CMP, LIVR, 62082-7 #### [facility] ([id number]) [address], [address] [place] [address] COMPREHENSIVE METABOLIC PANE Henry 12-13-2024 Albumin [Mass/Vol] 3.7 g/dL Normal 3.2-5.3 [facility] Comment on above: Performed By: #### C BCA, CMP, LIVR, 39391-2 #### [facility] ([id number]) [address], [address] [place] [address] ALP [Catalytic activity/Vol] 80 U/L Normal 39-130 [facility] Comment on above: Performed By: #### C BCA, CMP, LIVR, 84072-3 #### [facility] ([id number]) [address], [address] [place] [address] ALT [Catalytic activity/Vol] 13 U/L Normal <=31 [facility] Comment on above: Performed By: #### C BCA, CMP, LIVR, 06046-2 #### [facility] ([id number]) [address], [address] [place] [address] Anion gap [Moles/Vol] 9 mmol/L Normal 5-15 [facility] Comment on above: Performed By: #### C BCA, CMP, LIVR, 68029-8 #### [facility] ([id number]) [address], [address] [place] [address] AST [Catalytic activity/Vol] 26 U/L Normal <=41 [facility] Comment on above: Performed By: #### C BCA, CMP, LIVR, 62335-3 #### [facility] ([id number]) [address], [address] [place] [address] Bilirubin [Mass/Vol] 0.5 mg/dL Normal 0.3-1.2 [facility] Comment on above: Performed By: #### C BCA, CMP, LIVR, 43278-5 #### [facility] ([id number]) [address], [address] [place] [address] Calcium [Mass/Vol] 9.5 mg/dL Normal 8.5-10.5 [facility] Comment on above: Performed By: #### C BCA, CMP, LIVR, 11041-2 #### [facility] ([id number]) [address], [address] [place] [address] Chloride [Moles/Vol] 106 mmol/L Normal 98-109 [facility] Comment on above: Performed By: #### C BCA, CMP, LIVR, 06010-0 #### [facility] ([id number]) [address], [address] [place] [address] CO2 [Moles/Vol] 25 mmol/L Normal 22-32 [facility] Comment on above: Performed By: #### C BCA, CMP, LIVR, 72147-2 #### [facility] ([id number]) [address] [address] [place] [address] Creatinine [Mass/Vol] 0.68 mg/dL Normal 0.40-1.00 [facility] Comment on above: Result Comment: METH OD TRACEABLE TO IDMS STANDARD Performed By: #### C BCA, CMP, LIVR, 38783-5 #### [facility] ([id number]) [address], [facility] [address] [place] [address] GFR/1.73 sq M.predicted among non-blacks MDRD (S/P/Bld) [Vol rate/Area] 86 mL/min/{1.73_m2} Normal >=60 [facility] Comment on above: Result Comment: Repo rted eGFR is based on the CKD-EPI 2020 equation that does not use a race coefficient. Performed By: #### C BCA, CMP, LIVR, 32374-4 #### [facility] ([id number]) [address] [address] [place] [address] Glucose [Mass/Vol] 103 mg/dL High 65-99 [facility] Comment on above: Performed By: #### C BCA, CMP, LIVR, 95467-0 #### [facility] ([id number]) [address] [address] [place] [address] Potassium [Moles/Vol] 3.9 mmol/L Normal 3.5-5.0 [facility] Comment on above: Performed By: #### C BCA, CMP, LIVR, 09962-8 #### [facility] ([id number]) [address] [address] [place] [address] Protein [Mass/Vol] 6.3 g/dL Normal 6.0-8.0 [facility] Comment on above: Performed By: #### C BCA, CMP, LIVR, 95191-1 #### [facility] ([id number]) [address] [address] [place] [address] Sodium [Moles/Vol] 140 mmol/L Normal 134-146 [facility] Comment on above: Performed By: #### C BCA, CMP, LIVR, 84013-6 #### [facility] ([id number]) [address], [address] [place] [address] Urea nitrogen [Mass/Vol] 16 mg/dL Normal 5-27 [facility] Comment on above: Performed By: #### C BCA, CMP, LIVR, 64523-6 #### [facility] ([id number]) [address], [address] [place] [address] CBC WITH AUTO DIFFERENTIALon 11-15-2024 BASOPHILS ABSOLUTE COUNT (10*3/UL) BY AUTOMATED COUNT 0.1 10*3/uL Normal 0.0-0.2 [facility] Comment on above: Order Comment: Abnor mal CBC with auto diff reflexes to a manual diff Performed By: #### C BCA, CMP, LIVR, 37446-4 #### [facility] ([id number]) [address], [address] [place] [address] BASOPHILS RELATIVE PERCENT BY AUTOMATED COUNT 1.3 % Normal [facility] Comment on above: Order Comment: Abnor mal CBC with auto diff reflexes to a manual diff Performed By: #### C BCA, CMP, LIVR, 80653-2 #### [facility] ([id number]) [address], [address] [place] [address] CELLAVISION DIFFERENTIAL TYPE AUTOMATED DIFFERENTIAL Normal [facility] Comment on above: Order Comment: Abnor mal CBC with auto diff reflexes to a manual diff Performed By: #### C BCA, CMP, LIVR, 07620-4 #### [facility] ([id number]) [address], [address] [place] [address] Eosinophils (Bld) [#/Vol] 0.5 10*3/uL High 0.0-0.4 [facility] Comment on above: Order Comment: Abnor mal CBC with auto diff reflexes to a manual diff Performed By: #### C BCA, CMP, LIVR, 27157-0 #### [facility] ([id number]) [address], [address] [place] [address] EOSINOPHILS RELATIVE PERCENT BY AUTOMATED COUNT 5.4 % Normal [facility] Comment on above: Order Comment: Abnor mal CBC with auto diff reflexes to a manual diff Performed By: #### C BCA, CMP, LIVR, 71606-0 #### [facility] ([id number]) [address], [address] [place] [address] Erythrocyte distribution width (RBC) [Ratio] 14.1 % Normal 11.5-15 [facility] Comment on above: Order Comment: Abnor mal CBC with auto diff reflexes to a manual diff Performed By: #### C BCA, CMP, LIVR, 90086-6 #### [facility] ([id number]) [address], [address] [place] [address] Hematocrit (Bld) [Volume fraction] 39.8 % Normal 35-47 [facility] Comment on above: Order Comment: Abnor mal CBC with auto diff reflexes to a manual diff Performed By: #### C BCA, CMP, LIVR, 59991-9 #### [facility] ([id number]) [address], [address] [place] [address] Hemoglobin (Bld) [Mass/Vol] 13.4 g/dL Normal 11.7-15.5 [facility] Comment on above: Order Comment: Abnor mal CBC with auto diff reflexes to a manual diff Performed By: #### C BCA, CMP, LIVR, 28781-1 #### [facility] ([id number]) [address], [address] [place] [address] LYMPHOCYTES ABSOLUTE COUNT (10*3/UL) BY AUTOMATED COUNT 0.9 10*3/uL Low 1.0-3.5 [facility] Comment on above: Order Comment: Abnor mal CBC with auto diff reflexes to a manual diff Performed By: #### C BCA, CMP, LIVR, 26496-9 #### [facility] ([id number]) [address], [address] [place] [address] LYMPHOCYTES RELATIVE PERCENT BY AUTOMATED COUNT 10.2 % Normal [facility] Comment on above: Order Comment: Abnor mal CBC with auto diff reflexes to a manual diff Performed By: #### C BCA, CMP, LIVR, 56938-5 #### [facility] ([id number]) [address], [address] [place] [address] MCH (RBC) [Entitic mass] 31.4 pg Normal 27-34 [facility] Comment on above: Order Comment: Abnor mal CBC with auto diff reflexes to a manual diff Performed By: #### C BCA, CMP, LIVR, 75562-6 #### [facility] ([id number]) [address], [address] [place] [address] MCHC (RBC) [Mass/Vol] 33.6 g/dL Normal 32-36 [facility] Comment on above: Order Comment: Abnor mal CBC with auto diff reflexes to a manual diff Performed By: #### C BCA, CMP, LIVR, 16080-1 #### [facility] ([id number]) [address], [address] [place] [address] MCV (RBC) [Entitic vol] 93 fL Normal 80-100 [facility] Comment on above: Order Comment: Abnor mal CBC with auto diff reflexes to a manual diff Performed By: #### C BCA, CMP, LIVR, 48534-9 #### [facility] ([id number]) [address], [address] [place] [address] MONOCYTES ABSOLUTE COUNT (10*3/UL) BY AUTOMATED COUNT 0.8 10*3/uL Normal 0.0-0.9 [facility] Comment on above: Order Comment: Abnor mal CBC with auto diff reflexes to a manual diff Performed By: #### C BCA, CMP, LIVR, 65916-4 #### [facility] ([id number]) [address], [address] [place] [address] MONOCYTES RELATIVE PERCENT BY AUTOMATED COUNT 9.1 % Normal [facility] Comment on above: Order Comment: Abnor mal CBC with auto diff reflexes to a manual diff Performed By: #### C BCA, CMP, LIVR, 04773-8 #### [facility] ([id number]) [address], [address] [place] [address] NEUTROPHILS ABSOLUTE COUNT BY AUTOMATED COUNT 6.7 10*3/uL High 1.5-6.6 [facility] Comment on above: Order Comment: Abnor mal CBC with auto diff reflexes to a manual diff Performed By: #### C BCA, CMP, LIVR, 01134-7 #### [facility] ([id number]) [address], [address] [place] [address] NEUTROPHILS RELATIVE PERCENT BY AUTOMATED COUNT 74.0 % Normal [facility] Comment on above: Order Comment: Abnor mal CBC with auto diff reflexes to a manual diff Performed By: #### C BCA, CMP, LIVR, 74547-0 #### [facility] ([id number]) [address], [address] [place] [address] Platelet mean volume (Bld) [Entitic vol] 9.2 fL Normal 7-12 [facility] Comment on above: Order Comment: Abnor mal CBC with auto diff reflexes to a manual diff Performed By: #### C BCA, CMP, LIVR, 21037-6 #### [facility] ([id number]) [address], [address] [place] [address] Platelets (Bld) [#/Vol] 282 10*3/uL Normal 150-450 [facility] Comment on above: Order Comment: Abnor mal CBC with auto diff reflexes to a manual diff Performed By: #### C BCA, CMP, LIVR, 23699-2 #### [facility] ([id number]) [address], [address] [place] [address] RBC COUNT 4.27 X10E12/L Normal 3.8-5.2 [facility] Comment on above: Order Comment: Abnor mal CBC with auto diff reflexes to a manual diff Performed By: #### C BCA, CMP, LIVR, 36843-8 #### [facility] ([id number]) [address] [address] [place] [address] WBC (Bld) [#/Vol] 9.1 10*3/uL Normal 4-11 [facility] Comment on above: Order Comment: Abnor mal CBC with auto diff reflexes to a manual diff Performed By: #### C BCA, CMP, LIVR, 21753-0 #### [facility] ([id number]) [address] [address] [place] [address] COMPREHENSIVE METABOLIC PANE Henry 11-15-2024 Albumin [Mass/Vol] 3.7 g/dL Normal 3.2-5.3 [facility] Comment on above: Performed By: #### C BCA, CMP, LIVR, 31477-0 #### [facility] ([id number]) [address] [address] [place] [address] ALP [Catalytic activity/Vol] 86 U/L Normal 39-130 [facility] Comment on above: Performed By: #### C BCA, CMP, LIVR, 88750-7 #### [facility] ([id number]) [address] [address] [place] [address] ALT [Catalytic activity/Vol] 14 U/L Normal <=31 [facility] Comment on above: Performed By: #### C BCA, CMP, LIVR, 24655-3 #### [facility] ([id number]) [address] [address] [place] [address] Anion gap [Moles/Vol] 7 mmol/L Normal 5-15 [facility] Comment on above: Performed By: #### C BCA, CMP, LIVR, 88292-3 #### [facility] ([id number]) [address], [address] [place] [address] AST [Catalytic activity/Vol] 28 U/L Normal <=41 [facility] Comment on above: Performed By: #### C BCA, CMP, LIVR, 00424-7 #### [facility] ([id number]) [address], [address] [place] [address] Bilirubin [Mass/Vol] 0.5 mg/dL Normal 0.3-1.2 [facility] Comment on above: Performed By: #### C BCA, CMP, LIVR, 39407-0 #### [facility] ([id number]) [address], [address] [place] [address] Calcium [Mass/Vol] 9.4 mg/dL Normal 8.5-10.5 [facility] Comment on above: Performed By: #### C BCA, CMP, LIVR, 70744-3 #### [facility] ([id number]) [address], [address] [place] [address] Chloride [Moles/Vol] 105 mmol/L Normal 98-109 [facility] Comment on above: Performed By: #### C BCA, CMP, LIVR, 49241-5 #### [facility] ([id number]) [address], [address] [place] [address] CO2 [Moles/Vol] 29 mmol/L Normal 22-32 [facility] Comment on above: Performed By: #### C BCA, CMP, LIVR, 97947-7 #### [facility] ([id number]) [address], [address] [place] [address] Creatinine [Mass/Vol] 0.76 mg/dL Normal 0.40-1.00 [facility] Comment on above: Result Comment: METH OD TRACEABLE TO IDMS STANDARD Performed By: #### C MALI CMP, LIVR, 27172-7 #### [facility] ([id number]) [address], [address] [place] [address] GFR/1.73 sq M.predicted among non-blacks MDRD (S/P/Bld) [Vol rate/Area] 77 mL/min/{1.73_m2} Normal >=60 [facility] Comment on above: Result Comment: Repo rted eGFR is based on the CKD-EPI 2020 equation that does not use a race coefficient. Performed By: #### C BCA, CMP, LIVR, 56865-8 #### [facility] ([id number]) [address], [address] [place] [address] Glucose [Mass/Vol] 111 mg/dL High 65-99 [facility] Comment on above: Performed By: #### C BCA, CMP, LIVR, 46740-0 #### [facility] ([id number]) [address], [address] [place] [address] Potassium [Moles/Vol] 3.7 mmol/L Normal 3.5-5.0 [facility] Comment on above: Performed By: #### C BCA, CMP, LIVR, 37132-7 #### [facility] ([id number]) [address], [address] [place] [address] Protein [Mass/Vol] 6.3 g/dL Normal 6.0-8.0 [facility] Comment on above: Performed By: #### C BCA, CMP, LIVR, 68736-0 #### [facility] ([id number]) [address], [address] [place] [address] Sodium [Moles/Vol] 141 mmol/L Normal 134-146 [facility] Comment on above: Performed By: #### C BCA, CMP, LIVR, 11911-2 #### [facility] ([id number]) [address], [address] [place] [address] Urea nitrogen [Mass/Vol] 15 mg/dL Normal 5-27 [facility] Comment on above: Performed By: #### C BCA, CMP, LIVR, 87081-2 #### [facility] ([id number]) [address] [place] [address] CA ECHO DOPPLER COMPLETEon 0 10-19-[address] [address] Cardiology Report Signed Patient: ANGELIKA MARTINS MR#: [id number] : 1940 Acct:[id number] Age/Sex: 84 / F ADM Date: 10/18/24 Loc: CARD Attending Dr: WILL CUADRA Ordering Physician: WILL CUADRA Date of Service: 10/18/24 Procedure(s): CA echo doppler complete Accession Number(s): [id number] cc: Boone Ewing M.D.; WILL CUADRA Patient Name: ANGEILKA MARTINS MR#: [id number] : 1940 Exam Date: 10/18/2024 Ordering Doctor: [...] m/s, 2.79 m/s (more content not included)... [facility], Radiologist, MD - 10/19/2024 [place] [address] Cardiology Report Signed Patient: ANGELIKA MARTINS MR#: [id number] : 1940 Acct:[id number] Age/Sex: 84 / F ADM Date: 10/18/24 Loc: CARD Attending Dr: WILL CUADRA Ordering Physician: WILL CUADRA Date of Service: 10/18/24 Procedure(s): CA echo doppler complete Accession Number(s): [id number] cc: Boone Ewing M.D.; WILL CUADRA Patient Name: ANGELIKA MARTINS MR#: [id number] : 1940 Exam Date: 10/18/2024 Ordering Doctor: [...] M.D. Signed By: 10/19/241744 DD/ 43 TD/TT: [employer] Operator: [facility] Radiology Study observation (narrative) [facility] CA ECHO DOPPLER COMPLETEOrde red By: Radiologist Radiology on 10-19-2024 [facility] Work Phone: CBC WITH AUTO DIFFERENTIALon 10-18-2024 BASOPHILS ABSOLUTE COUNT (10*3/UL) BY AUTOMATED COUNT 0.1 10*3/uL Normal 0.0-0.2 [facility] Comment on above: Performed By: #### C BCA, CMP #### [facility] ([id number]) [address], [address] [place] [address] BASOPHILS RELATIVE PERCENT BY AUTOMATED COUNT 1.1 % Normal [facility] Comment on above: Performed By: #### C BCA, CMP #### [facility] ([id number]) [address] [facility] [place] [address] CELLAVISION DIFFERENTIAL TYPE AUTOMATED DIFFERENTIAL Normal [facility] Comment on above: Performed By: #### C BCA, CMP #### [facility] ([id number]) [address] [facility] [facility] [place] [address] Eosinophils (Bld) [#/Vol] 0.3 10*3/uL Normal 0.0-0.4 [facility] Comment on above: Performed By: #### C MALI, CMP #### [facility] ([id number]) [address], [address] [place] [address] EOSINOPHILS RELATIVE PERCENT BY AUTOMATED COUNT 3.5 % Normal [facility] Comment on above: Performed By: #### C MALI, CMP #### [facility] ([id number]) [address] [address] [place] [address] Erythrocyte distribution width (RBC) [Ratio] 14.5 % Normal 11.5-15 [facility] Comment on above: Performed By: #### C MALI, CMP #### [facility] ([id number]) [address] [address] [place] [address] Hematocrit (Bld) [Volume fraction] 41.8 % Normal 35-47 [facility] Comment on above: Performed By: #### C MALI, CMP #### [facility] ([id number]) [address] [address] [place] [address] Hemoglobin (Bld) [Mass/Vol] 13.9 g/dL Normal 11.7-15.5 [facility] Comment on above: Performed By: #### C MALI, CMP #### [facility] ([id number]) [address] [facility] [address] [place] [address] LYMPHOCYTES ABSOLUTE COUNT (10*3/UL) BY AUTOMATED COUNT 1.2 10*3/uL Normal 1.0-3.5 [facility] Comment on above: Performed By: #### C BCA, CMP #### [facility] ([id number]) [address] [address] [place] [address] LYMPHOCYTES RELATIVE PERCENT BY AUTOMATED COUNT 14.6 % Normal [facility] Comment on above: Performed By: #### C BCA, CMP #### [facility] ([id number]) [address], [address] [place] [address] MCH (RBC) [Entitic mass] 31.3 pg Normal 27-34 [facility] Comment on above: Performed By: #### C BCA, CMP #### [facility] ([id number]) [address], [address] [place] [address] MCHC (RBC) [Mass/Vol] 33.2 g/dL Normal 32-36 [facility] Comment on above: Performed By: #### C BCA, CMP #### [facility] ([id number]) [address], [address] [place] [address] MCV (RBC) [Entitic vol] 94 fL Normal 80-100 [facility] Comment on above: Performed By: #### C MALI, CMP #### [facility] ([id number]) [address], [address] [place] [address] MONOCYTES ABSOLUTE COUNT (10*3/UL) BY AUTOMATED COUNT 1.1 10*3/uL High 0.0-0.9 [facility] Comment on above: Performed By: #### C MALI, CMP #### [facility] ([id number]) [address], [address] [place] [address] MONOCYTES RELATIVE PERCENT BY AUTOMATED COUNT 13.2 % Normal [facility] Comment on above: Performed By: #### C BCA, CMP #### [facility] ([id number]) [address], [address] [place] [address] NEUTROPHILS ABSOLUTE COUNT BY AUTOMATED COUNT 5.5 10*3/uL Normal 1.5-6.6 [facility] Comment on above: Performed By: #### C BCA, CMP #### [facility] ([id number]) [address], [address] [place] [address] NEUTROPHILS RELATIVE PERCENT BY AUTOMATED COUNT 67.6 % Normal [facility] Comment on above: Performed By: #### C BCA, CMP #### [facility] ([id number]) [address], [address] [place] [address] Platelet mean volume (Bld) [Entitic vol] 9.5 fL Normal 7-12 [facility] Comment on above: Performed By: #### C BCA, CMP #### [facility] ([id number]) [address], [address] [place] [address] Platelets (Bld) [#/Vol] 319 10*3/uL Normal 150-450 [facility] Comment on above: Performed By: #### C BCA, CMP #### [facility] ([id number]) [address], [address] [place] [address] RBC COUNT 4.43 X10E12/L Normal 3.8-5.2 [facility] Comment on above: Performed By: #### C BCA, CMP #### [facility] ([id number]) [address], [address] [place] [address] WBC (Bld) [#/Vol] 8.1 10*3/uL Normal 4-11 [facility] Comment on above: Performed By: #### C BCA, CMP #### [facility] ([id number]) [address], [address] [place] [address] COMPREHENSIVE METABOLIC PANE Henry 10-18-2024 Albumin [Mass/Vol] 4.1 g/dL Normal 3.2-5.3 [facility] Comment on above: Performed By: #### C BCA, CMP #### [facility] ([id number]) [address], [address] [place] [address] ALP [Catalytic activity/Vol] 87 U/L Normal 39-130 [facility] Comment on above: Performed By: #### C BCA, CMP #### [facility] ([id number]) [address], [address] [place] [address] ALT [Catalytic activity/Vol] 13 U/L Normal <=31 [facility] Comment on above: Performed By: #### C BCA, CMP #### [facility] ([id number]) [address] [place] [address] Anion gap [Moles/Vol] 11 mmol/L Normal 5-15 [facility] Comment on above: Performed By: #### C BCA, CMP #### [facility] ([id number]) [address], [address] [place] [address] AST [Catalytic activity/Vol] 29 U/L Normal <=41 [facility] Comment on above: Performed By: #### C BCA, CMP #### [facility] ([id number]) [address] [place] [address] Bilirubin [Mass/Vol] 0.6 mg/dL Normal 0.3-1.2 [facility] Comment on above: Performed By: #### C BCA, CMP #### [facility] ([id number]) [address] [place] [address] Calcium [Mass/Vol] 9.4 mg/dL Normal 8.5-10.5 [facility] Comment on above: Performed By: #### C BCA, CMP #### [facility] ([id number]) [address], [address] [place] [address] Chloride [Moles/Vol] 105 mmol/L Normal 98-109 [facility] Comment on above: Performed By: #### C BCA, CMP #### [facility] ([id number]) [address], [address] [place] [address] CO2 [Moles/Vol] 27 mmol/L Normal 22-32 [facility] Comment on above: Performed By: #### C BCA, CMP #### [facility] ([id number]) [address] [address] [place] [address] Creatinine [Mass/Vol] 0.70 mg/dL Normal 0.40-1.00 [facility] Comment on above: Result Comment: METH OD TRACEABLE TO IDMS STANDARD Performed By: #### C BCA, CMP #### [facility] ([id number]) [address] [address] [place] [address] GFR/1.73 sq M.predicted among non-blacks MDRD (S/P/Bld) [Vol rate/Area] 85 mL/min/{1.73_m2} Normal >=60 [facility] Comment on above: Result Comment: [facility] eGFR is based on the CKD-EPI 2020 equation that does not use a race coefficient. Performed By: #### C BCA, CMP #### [facility] ([id number]) [address] [address] [place] [address] Glucose [Mass/Vol] 80 mg/dL Normal 65-99 [facility] Comment on above: Performed By: #### C BCA, CMP #### [facility] ([id number]) [address] [address] [place] [address] Potassium [Moles/Vol] 4.0 mmol/L Normal 3.5-5.0 [facility] Comment on above: Performed By: #### C BCA, CMP #### [facility] ([id number]) [address] [address] [place] [address] Protein [Mass/Vol] 6.4 g/dL Normal 6.0-8.0 [facility] Comment on above: Performed By: #### C BCA, CMP #### [facility] ([id number]) [address] [address] [place] [address] Sodium [Moles/Vol] 143 mmol/L Normal 134-146 [facility] Comment on above: Performed By: #### C BCA, CMP #### [facility] ([id number]) [address], [address] [place] [address] Urea nitrogen [Mass/Vol] 15 mg/dL Normal 5-27 [facility] Comment on above: Performed By: #### C MALI, CMP #### [facility] ([id number]) [address], [address] [place] [address] CBC WITH AUTO DIFFERENTIALon 09-20-2024 BASOPHILS ABSOLUTE COUNT (10*3/UL) BY AUTOMATED COUNT 0.1 10*3/uL Normal 0.0-0.2 [facility] Comment on above: Performed By: #### C MALI, CMP #### [facility] ([id number]) [address], [address] [place] [address] BASOPHILS RELATIVE PERCENT BY AUTOMATED COUNT 1.9 % Normal [facility] Comment on above: Performed By: #### Ha SAMSON, CMP #### [facility] ([id number]) [address], [address] [place] [address] CELLAVISION DIFFERENTIAL TYPE AUTOMATED DIFFERENTIAL Normal [facility] Comment on above: Performed By: #### C MALI, CMP #### [facility] ([id number]) [address], [address] [place] [address] Eosinophils (Bld) [#/Vol] 0.3 10*3/uL Normal 0.0-0.4 [facility] Comment on above: Performed By: #### C MALI, CMP #### [facility] ([id number]) [address] [place] [address] EOSINOPHILS RELATIVE PERCENT BY AUTOMATED COUNT 4.8 % Normal [facility] Comment on above: Performed By: #### C MALI, CMP #### [facility] ([id number]) [address] [place] [address] Erythrocyte distribution width (RBC) [Ratio] 14.6 % Normal 11.5-15 [facility] Comment on above: Performed By: #### C BCA, CMP #### [facility] ([id number]) [address] [place] [address] Hematocrit (Bld) [Volume fraction] 38.5 % Normal 35-47 [facility] Comment on above: Performed By: #### C BCA, CMP #### [facility] ([id number]) [address] [place] [address] Hemoglobin (Bld) [Mass/Vol] 13.0 g/dL Normal 11.7-15.5 [facility] Comment on above: Performed By: #### C BCA, CMP #### [facility] ([id number]) [address] [place] [address] LYMPHOCYTES ABSOLUTE COUNT (10*3/UL) BY AUTOMATED COUNT 1.4 10*3/uL Normal 1.0-3.5 [facility] Comment on above: Performed By: #### C BCA, CMP #### [facility] ([id number]) [address] [place] [address] LYMPHOCYTES RELATIVE PERCENT BY AUTOMATED COUNT 20.6 % Normal [facility] Comment on above: Performed By: #### C BCA, CMP #### [facility] ([id number]) [address] [place] [address] MCH (RBC) [Entitic mass] 31.0 pg Normal 27-34 [facility] Comment on above: Performed By: #### C BCA, CMP #### [facility] ([id number]) [address] [place] [address] MCHC (RBC) [Mass/Vol] 33.7 g/dL Normal 32-36 [facility] Comment on above: Performed By: #### C BCA, CMP #### [facility] ([id number]) [address] [place] [address] MCV (RBC) [Entitic vol] 92 fL Normal 80-100 [facility] Comment on above: Performed By: #### Ha SAMSON, CMP #### [facility] ([id number]) [address] [place] [address] MONOCYTES ABSOLUTE COUNT (10*3/UL) BY AUTOMATED COUNT 0.7 10*3/uL Normal 0.0-0.9 [facility] Comment on above: Performed By: #### C MALI, CMP #### [facility] ([id number]) [address] [facility] [address] [place] [address] MONOCYTES RELATIVE PERCENT BY AUTOMATED COUNT 9.9 % Normal [facility] Comment on above: Performed By: #### Ha SAMSON, CMP #### [facility] ([id number]) [address] [place] [address] NEUTROPHILS ABSOLUTE COUNT BY AUTOMATED COUNT 4.1 10*3/uL Normal 1.5-6.6 [facility] Comment on above: Performed By: #### Ha SAMSON, CMP #### [facility] ([id number]) [address] [place] [address] NEUTROPHILS RELATIVE PERCENT BY AUTOMATED COUNT 62.8 % Normal [facility] Comment on above: Performed By: #### Ha SAMSON, CMP #### [facility] ([id number]) [address] [place] [address] Platelet mean volume (Bld) [Entitic vol] 9.2 fL Normal 7-12 [facility] Comment on above: Performed By: #### C MALI, CMP #### [facility] ([id number]) [address] [place] [address] Platelets (Bld) [#/Vol] 314 10*3/uL Normal 150-450 [facility] Comment on above: Performed By: #### C BCA, CMP #### [facility] ([id number]) [address] [place] [address] RBC COUNT 4.18 X10E12/L Normal 3.8-5.2 [facility] Comment on above: Performed By: #### C BCA, CMP #### [facility] ([id number]) [address] [place] [address] WBC (Bld) [#/Vol] 6.6 10*3/uL Normal 4-11 [facility] Comment on above: Performed By: #### C BCA, CMP #### [facility] ([id number]) [address] [place] [address] COMPREHENSIVE METABOLIC PANE Henry 09-20-2024 Albumin [Mass/Vol] 3.7 g/dL Normal 3.2-5.3 [facility] Comment on above: Performed By: #### C BCA, CMP #### [facility] ([id number]) [address] [place] [address] ALP [Catalytic activity/Vol] 95 U/L Normal 39-130 [facility] Comment on above: Performed By: #### C BCA, CMP #### [facility] ([id number]) [address], [address] [place] [address] ALT [Catalytic activity/Vol] 11 U/L Normal <=31 [facility] Comment on above: Performed By: #### C BCA, CMP #### [facility] ([id number]) [address], [address] [place] [address] Anion gap [Moles/Vol] 10 mmol/L Normal 5-15 [facility] Comment on above: Performed By: #### C BCA, CMP #### [facility] ([id number]) [address], [address] [place] [address] AST [Catalytic activity/Vol] 28 U/L Normal <=41 [facility] Comment on above: Performed By: #### C BCA, CMP #### [facility] ([id number]) [address], [address] [place] [address] Bilirubin [Mass/Vol] 0.4 mg/dL Normal 0.3-1.2 [facility] [place] Comment on above: Performed By: #### C BCA, CMP #### [facility] ([id number]) [address], [address] [place] [address] Calcium [Mass/Vol] 9.6 mg/dL Normal 8.5-10.5 [facility] Comment on above: Performed By: #### C BCA, CMP #### [facility] ([id number]) [address], [address] [place] [address] Chloride [Moles/Vol] 106 mmol/L Normal 98-109 [facility] [place] Comment on above: Performed By: #### C BCA, CMP #### [facility] ([id number]) [address], [address] [place] [address] CO2 [Moles/Vol] 25 mmol/L Normal 22-32 [facility] Comment on above: Performed By: #### C BCA, CMP #### [facility] ([id number]) [address], [address] [place] [address] Creatinine [Mass/Vol] 0.75 mg/dL Normal 0.40-1.00 [facility] Comment on above: Result Comment: METH OD TRACEABLE TO IDMS STANDARD Performed By: #### C BCA, CMP #### [facility] ([id number]) [address], [address] [place] [address] GFR/1.73 sq M.predicted among non-blacks MDRD (S/P/Bld) [Vol rate/Area] 78 mL/min/{1.73_m2} Normal >=60 [facility] Comment on above: Result Comment: Repo rted eGFR is based on the CKD-EPI 2020 equation that does not use a race coefficient. Performed By: #### C BCA, CMP #### [facility] ([id number]) [address], [address] [place] [address] Glucose [Mass/Vol] 94 mg/dL Normal 65-99 [facility] Comment on above: Performed By: #### C BCA, CMP #### [facility] ([id number]) [address], [address] [place] [address] Potassium [Moles/Vol] 3.7 mmol/L Normal 3.5-5.0 [facility] Comment on above: Performed By: #### C BCA, CMP #### [facility] ([id number]) [address], [address] [place] [address] Protein [Mass/Vol] 6.2 g/dL Normal 6.0-8.0 [facility] Comment on above: Performed By: #### C BCA, CMP #### [facility] ([id number]) [address], [address] [place] [address] Sodium [Moles/Vol] 141 mmol/L Normal 134-146 [facility] Comment on above: Performed By: #### C BCA, CMP #### [facility] ([id number]) [address], [address] [place] [address] Urea nitrogen [Mass/Vol] 16 mg/dL Normal 5-27 [facility] Comment on above: Performed By: #### C BCA, CMP #### [facility] ([id number]) [address], [address] [place] [address] ERYTHROCYTE SEDIMENTATION RA TE (ESR)on 09-20-2024 ESR, ERYTHROCYTE SEDIMENTATION RATE 4 mm/h Normal 0-30 [facility] Comment on above: Performed By: #### C BCA, CMP #### [facility] ([id number]) [address], [address] [place] [address] LIPID PROFILEon 09-20-2024 Cholesterol [Mass/Vol] 106 mg/dL Low 150-200 [facility] Comment on above: Performed By: #### C BCA, CMP #### [facility] ([id number]) [address], [address] [place] [address] Cholesterol in HDL [Mass/Vol] 45 mg/dL Normal >39 [facility] Comment on above: Result Comment: HDL <40 mg/dL - High Risk HDL > or = 40mg/dL- Desirable HDL >60 mg/dL - Negative Risk Performed By: #### C BCA, CMP #### [facility] ([id number]) [address], [address] [place] [address] Cholesterol in LDL [Mass/Vol] 39 mg/dL Normal <130 [facility] Comment on above: Result Comment: LDL <100 mg/dL - Desirable LDL >160 mg/dL - High Risk Performed By: #### C BCA, CMP #### [facility] ([id number]) [address], [address] [place] [address] CHOLESTEROL:HDL 2.4 Normal 1.0-5.0 [facility] Comment on above: Performed By: #### C BCA, CMP #### [facility] ([id number]) [address], [address] [place] [address] Triglyceride [Mass/Vol] 109 mg/dL Normal 27-150 [facility] Comment on above: Performed By: #### C BCA, CMP #### [facility] ([id number]) [address], [address] [place] [address] VERY LOW LIPOPROTEIN 22 mg/dL Normal 0-30 [facility] Comment on above: Performed By: #### C BCA, CMP #### [facility] ([id number]) [address], [address] [place] [address] THYROID PROFILE INCLUDES TSH FT4on 09-20-2024 Free T4 [Mass/Vol] 0.85 ng/dL Normal 0.61-1.60 [facility] Comment on above: Performed By: #### C MALI, CMP #### [facility] ([id number]) [address] [address] [place] [address] TSH 6.13 uIU/mL High 0.49-4.67 [facility] Comment on above: Performed By: #### C MALI, CMP #### [facility] ([id number]) [address] [facility] [address] [place] [address] CBC WITH AUTO DIFFERENTIALon 08-23-2024 BASOPHILS ABSOLUTE COUNT (10*3/UL) BY AUTOMATED COUNT 0.2 10*3/uL Normal 0.0-0.2 [facility] Comment on above: Performed By: #### Ha SAMSON, CMP #### [facility] ([id number]) [address] [facility] [address] [place] [address] BASOPHILS RELATIVE PERCENT BY AUTOMATED COUNT 2.1 % Normal [facility] Comment on above: Performed By: #### Ha SAMSON, CMP #### [facility] ([id number]) [address] [facility] [address] [place] [address] CELLAVISION DIFFERENTIAL TYPE AUTOMATED DIFFERENTIAL Normal [facility] Comment on above: Performed By: #### Ha SAMSON, CMP #### [facility] ([id number]) [address] [address] [place] [address] Eosinophils (Bld) [#/Vol] 0.3 10*3/uL Normal 0.0-0.4 [facility] Comment on above: Performed By: #### Ha SAMSON, CMP #### [facility] ([id number]) [address] [place] [address] EOSINOPHILS RELATIVE PERCENT BY AUTOMATED COUNT 3.8 % Normal [facility] Comment on above: Performed By: #### Ha SAMSON, CMP #### [facility] ([id number]) [address], [address] [place] [address] Erythrocyte distribution width (RBC) [Ratio] 13.8 % Normal 11.5-15 [facility] Comment on above: Performed By: #### C BCA, CMP #### [facility] ([id number]) [address], [address] [place] [address] Hematocrit (Bld) [Volume fraction] 39.7 % Normal 35-47 [facility] Comment on above: Performed By: #### C MALI, CMP #### [facility] ([id number]) [address], [address] [place] [address] Hemoglobin (Bld) [Mass/Vol] 13.5 g/dL Normal 11.7-15.5 [facility] Comment on above: Performed By: #### C MALI, CMP #### [facility] ([id number]) [address], [address] [place] [address] LYMPHOCYTES ABSOLUTE COUNT (10*3/UL) BY AUTOMATED COUNT 1.2 10*3/uL Normal 1.0-3.5 [facility] Comment on above: Performed By: #### C MALI, CMP #### [facility] ([id number]) [address], [address] [place] [address] LYMPHOCYTES RELATIVE PERCENT BY AUTOMATED COUNT 15.4 % Normal [facility] Comment on above: Performed By: #### C BCA, CMP #### [facility] ([id number]) [address], [address] [place] [address] MCH (RBC) [Entitic mass] 31.8 pg Normal 27-34 [facility] Comment on above: Performed By: #### C BCA, CMP #### [facility] ([id number]) [address], [address] [place] [address] MCHC (RBC) [Mass/Vol] 33.9 g/dL Normal 32-36 [facility] Comment on above: Performed By: #### C BCA, CMP #### [facility] ([id number]) [address], [address] [place] [address] MCV (RBC) [Entitic vol] 94 fL Normal 80-100 [facility] Comment on above: Performed By: #### C BCA, CMP #### [facility] ([id number]) [address], [address] [place] [address] MONOCYTES ABSOLUTE COUNT (10*3/UL) BY AUTOMATED COUNT 0.8 10*3/uL Normal 0.0-0.9 [facility] Comment on above: Performed By: #### C MALI, CMP #### [facility] ([id number]) [address], [address] [place] [address] MONOCYTES RELATIVE PERCENT BY AUTOMATED COUNT 11.0 % Normal [facility] Comment on above: Performed By: #### C BCA, CMP #### [facility] ([id number]) [address], [address] [place] [address] NEUTROPHILS ABSOLUTE COUNT BY AUTOMATED COUNT 5.1 10*3/uL Normal 1.5-6.6 [facility] Comment on above: Performed By: #### C BCA, CMP #### [facility] ([id number]) [address], [address] [place] [address] NEUTROPHILS RELATIVE PERCENT BY AUTOMATED COUNT 67.7 % Normal [facility] Comment on above: Performed By: #### C BCA, CMP #### [facility] ([id number]) [address], [address] [place] [address] Platelet mean volume (Bld) [Entitic vol] 9.6 fL Normal 7-12 [facility] Comment on above: Performed By: #### C BCA, CMP #### [facility] ([id number]) [address], [address] [place] [address] Platelets (Bld) [#/Vol] 280 10*3/uL Normal 150-450 [facility] Comment on above: Performed By: #### C BCA, CMP #### [facility] ([id number]) [address], [address] [place] [address] RBC COUNT 4.24 X10E12/L Normal 3.8-5.2 [facility] Comment on above: Performed By: #### C BCA, CMP #### [facility] ([id number]) [address], [address] [place] [address] WBC (Bld) [#/Vol] 7.5 10*3/uL Normal 4-11 [facility] Comment on above: Performed By: #### C BCA, CMP #### [facility] ([id number]) [address], [address] [place] [address] COMPREHENSIVE METABOLIC PANE Henry 08-23-2024 Albumin [Mass/Vol] 3.7 g/dL Normal 3.2-5.3 [facility] Comment on above: Performed By: #### C BCA, CMP #### [facility] ([id number]) [address], [address] [place] [address] ALP [Catalytic activity/Vol] 81 U/L Normal 39-130 [facility] Comment on above: Performed By: #### C BCA, CMP #### [facility] ([id number]) [address], [address] [place] [address] ALT [Catalytic activity/Vol] 15 U/L Normal <=31 [facility] Comment on above: Performed By: #### C BCA, CMP #### [facility] ([id number]) [address], [address] [place] [address] Anion gap [Moles/Vol] 11 mmol/L Normal 5-15 [facility] Comment on above: Performed By: #### C BCA, CMP #### [facility] ([id number]) [address] [place] [address] AST [Catalytic activity/Vol] 24 U/L Normal <=41 [facility] Comment on above: Performed By: #### C BCA, CMP #### [facility] ([id number]) [address] [address] [place] [address] Bilirubin [Mass/Vol] 0.4 mg/dL Normal 0.3-1.2 [facility] Comment on above: Performed By: #### C BCA, CMP #### [facility] ([id number]) [address] [address] [place] [address] Calcium [Mass/Vol] 9.4 mg/dL Normal 8.5-10.5 [facility] Comment on above: Performed By: #### C BCA, CMP #### [facility] ([id number]) [address] [address] [place] [address] Chloride [Moles/Vol] 105 mmol/L Normal 98-109 [facility] Comment on above: Performed By: #### C BCA, CMP #### [facility] ([id number]) [address] [address] [place] [address] CO2 [Moles/Vol] 24 mmol/L Normal 22-32 [facility] Comment on above: Performed By: #### C BCA, CMP #### [facility] ([id number]) [address] [address] [place] [address] Creatinine [Mass/Vol] 0.68 mg/dL Normal 0.40-1.00 [facility] Comment on above: Result Comment: METH OD TRACEABLE TO IDMS STANDARD Performed By: #### C BCA, CMP #### [facility] ([id number]) [address] [address] [place] [address] GFR/1.73 sq M.predicted among non-blacks MDRD (S/P/Bld) [Vol rate/Area] 86 mL/min/{1.73_m2} Normal >=60 [facility] Comment on above: Result Comment: Repo rted eGFR is based on the CKD-EPI 2020 equation that does not use a race coefficient. Performed By: #### C BCA, CMP #### [facility] ([id number]) [address], [address] [place] [address] Glucose [Mass/Vol] 107 mg/dL High 65-99 [facility] Comment on above: Performed By: #### C BCA, CMP #### [facility] ([id number]) [address] [address] [place] [address] Potassium [Moles/Vol] 3.9 mmol/L Normal 3.5-5.0 [facility] Comment on above: Performed By: #### C BCA, CMP #### [facility] ([id number]) [address], [address] [place] [address] Protein [Mass/Vol] 6.2 g/dL Normal 6.0-8.0 [facility] Comment on above: Performed By: #### C BCA, CMP #### [facility] ([id number]) [address], [address] [place] [address] Sodium [Moles/Vol] 140 mmol/L Normal 134-146 [facility] Comment on above: Performed By: #### C BCA, CMP #### [facility] ([id number]) [address] [address] [place] [address] Urea nitrogen [Mass/Vol] 16 mg/dL Normal 5-27 [facility] Comment on above: Performed By: #### C BCA, CMP #### [facility] ([id number]) [address], [address] [place] [address] CBC AND AUTO DIFFon 07-27-19 25 ABSOLUTE BASOPHIL 0.2 X10E9/L Normal 0.0-0.2 [facility] Comment on above: Performed By: #### C BCA, CMP #### [facility] ([id number]) [address], [address] [place] [address] ABSOLUTE NEUTROPHIL 4.9 X10E9/L Normal 1.5-6.6 [facility] [place] Comment on above: Performed By: #### C BCA, CMP #### [facility] ([id number]) [address], [address] [place] [address] Basophils/100 WBC (Bld) 2.4 % Normal [facility] Comment on above: Performed By: #### C BCA, CMP #### [facility] ([id number]) [address] [address] [place] [address] Eosinophils (Bld) [#/Vol] 0.3 10*3/uL Normal 0.0-0.4 [facility] Comment on above: Performed By: #### C BCA, CMP #### [facility] ([id number]) [address] [address] [place] [address] Eosinophils/100 WBC (Bld) 3.5 % Normal [facility] Comment on above: Performed By: #### C BCA, CMP #### [facility] ([id number]) [address] [place] [address] Erythrocyte distribution width (RBC) [Ratio] 14.2 % Normal 11.5-15.0 [facility] Comment on above: Performed By: #### C BCA, CMP #### [facility] ([id number]) [address] [place] [address] Hematocrit (Bld) [Volume fraction] 39.3 % Normal 35-47 [facility] Comment on above: Performed By: #### C BCA, CMP #### [facility] ([id number]) [address] [place] [address] Hemoglobin (Bld) [Mass/Vol] 13.0 g/dL Normal 11.7-15.5 [facility] Comment on above: Performed By: #### C BCA, CMP #### [facility] ([id number]) [address] [place] [address] Lymphocytes (Bld) [#/Vol] 1.1 10*3/uL Normal 1.0-3.5 [facility] Comment on above: Performed By: #### C BCA, CMP #### [facility] ([id number]) [address] [place] [address] Lymphocytes/100 WBC (Bld) 14.9 % Normal [facility] Comment on above: Performed By: #### C BCA, CMP #### [facility] ([id number]) [address] [place] [address] MCH (RBC) [Entitic mass] 31.7 pg Normal 27-34 [facility] Comment on above: Performed By: #### C BCA, CMP #### [facility] ([id number]) [address] [place] [address] MCHC (RBC) [Mass/Vol] 33.1 g/dL Normal 32-36 [facility] Comment on above: Performed By: #### C BCA, CMP #### [facility] ([id number]) [address] [place] [address] MCV (RBC) [Entitic vol] 96 fL Normal 80-100 [facility] Comment on above: Performed By: #### C BCA, CMP #### [facility] ([id number]) [address] [place] [address] Monocytes (Bld) [#/Vol] 0.9 10*3/uL Normal 0-0.9 [facility] Comment on above: Performed By: #### C BCA, CMP #### [facility] ([id number]) [address] [place] [address] Monocytes/100 WBC (Bld) 12.9 % Normal [facility] Comment on above: Performed By: #### C BCA, CMP #### [facility] ([id number]) [address] [place] [address] Neutrophils/100 WBC (Bld) 66.3 % Normal [facility] Comment on above: Performed By: #### C BCA, CMP #### [facility] ([id number]) [address] [place] [address] Platelet mean volume (Bld) [Entitic vol] 9.2 fL Normal 7-12 [facility] Comment on above: Performed By: #### C BCA, CMP #### [facility] ([id number]) [address] [address] [place] [address] Platelets (Bld) [#/Vol] 286 10*3/uL Normal 150-450 [facility] Comment on above: Performed By: #### C BCA, CMP #### [facility] ([id number]) [address] [address] [place] [address] RBC COUNT 4.09 X10E12/L Normal 3.80-5.20 [facility] Comment on above: Performed By: #### C BCA, CMP #### [facility] ([id number]) [address] [address] [place] [address] WBC (Bld) [#/Vol] 7.4 10*3/uL Normal 4.0-11.0 [facility] Comment on above: Performed By: #### C BCA, CMP #### [facility] ([id number]) [address] [place] [address] COMPREHENSIVE METABOLIC PANE Henry 07-26-2024 Albumin [Mass/Vol] 3.7 g/dL Normal 3.2-5.3 [facility] Comment on above: Performed By: #### C BCA, CMP #### [facility] ([id number]) [address] [place] [address] ALP [Catalytic activity/Vol] 80 U/L Normal 39-130 [facility] Comment on above: Performed By: #### C BCA, CMP #### [facility] ([id number]) [address] [place] [address] ALT [Catalytic activity/Vol] 10 U/L Normal 0-31 [facility] Comment on above: Performed By: #### C BCA, CMP #### [facility] ([id number]) [address] [place] [address] Anion gap [Moles/Vol] 9 mmol/L Normal 5-15 [facility] Comment on above: Performed By: #### C BCA, CMP #### [facility] ([id number]) [address], [address] [place] [address] AST [Catalytic activity/Vol] 27 U/L Normal 0-41 [facility] Comment on above: Performed By: #### C BCA, CMP #### [facility] ([id number]) [address] [place] [address] Bilirubin [Mass/Vol] 0.5 mg/dL Normal 0.3-1.2 [facility] [place] Comment on above: Performed By: #### C BCA, CMP #### [facility] ([id number]) [address] [place] [address] Calcium [Mass/Vol] 8.9 mg/dL Normal 8.5-10.5 [facility] Comment on above: Performed By: #### C BCA, CMP #### [facility] ([id number]) [address] [place] [address] Chloride [Moles/Vol] 108 mmol/L Normal 98-109 [facility] [place] Comment on above: Performed By: #### C BCA, CMP #### [facility] ([id number]) [address] [address] [place] [address] CO2 [Moles/Vol] 24 mmol/L Normal 22-32 [facility] Comment on above: Performed By: #### C BCA, CMP #### [facility] ([id number]) [address] [address] [place] [address] Creatinine [Mass/Vol] 0.68 mg/dL Normal 0.40-1.00 [facility] Comment on above: Result Comment: METH OD TRACEABLE TO IDMS STANDARD Performed By: #### C BCA, CMP #### [facility] ([id number]) [address] [address] GFR/1.73 sq M.predicted among non-blacks MDRD (S/P/Bld) [Vol rate/Area] 86 mL/min/{1.73_m2} Normal >59 [facility] Comment on above: Result Comment: Reported eGFR is based on the CKD-EPI 2020 equation that does not use a race coefficient. Performed By: #### C BCA, CMP #### [facility] ([id number]) [address] [address] [place] [address] Glucose [Mass/Vol] 82 mg/dL Normal 65-99 [facility] Comment on above: Performed By: #### C BCA, CMP #### [facility] ([id number]) [address] [address] [place] [address] Potassium [Moles/Vol] 3.8 mmol/L Normal 3.5-5.0 [facility] Comment on above: Performed By: #### C BCA, CMP #### [facility] ([id number]) [address] [address] [place] [address] Protein [Mass/Vol] 6.2 g/dL Normal 6.0-8.0 [facility] Comment on above: Performed By: #### C BCA, CMP #### [facility] ([id number]) [address], [facility] [address] [place] [address] Sodium [Moles/Vol] 141 mmol/L Normal 134-146 [facility] Comment on above: Performed By: #### C BCA, CMP #### [facility] ([id number]) [address], [facility] [address] [place] [address] Urea nitrogen [Mass/Vol] 16 mg/dL Normal 5-27 [facility] Comment on above: Performed By: #### C BCA, CMP #### [facility] ([id number]) [address], [facility] [address] [place] [address] ESR Photometric method (Bld) [Velocity]on 07-26-2024 ESR, ERYTHROCYTE SEDIMENTATION RATE 6 mm/h Normal 0-30 [facility] Comment on above: Performed By: #### C BCA, CMP #### [facility] ([id number]) [address], [facility] [address] [place] [address] LIVER PANELon 07-26-2024 Bilirubin.direct [Mass/Vol] 0.1 mg/dL Normal 0.0-0.4 [facility] Comment on above: Result Comment: SPEC IMEN HEMOLYZED, RESULTS DECREASED SLIGHTLY HEMOLYZED Performed By: #### C BCA, CMP #### [facility] ([id number]) [address], [address] [place] [address] Transthoracic echo (TTE) com plete with strainon 07-11-[address] [address] Cardiology Report Signed Patient: ANGELIKA MARTINS MR#: [id number] : 1940 Acct:[id number] Age/Sex: 84 / F ADM Date: 07/06/24 Loc: CARD Attending Dr: Cristela Portillo M.D. Ordering Physician: Cristela Portillo M.D. Date of Service: 07/06/24 Procedure(s): CA myocardial strain Accession Number(s): [id number] cc: Booen Ewing M.D.; Cristela Portillo M.D. Patient Name: ANGELIKA MARTINS MR#: [id number] : 1940 Exam Date: 07/06/2024 Ordering Doctor: DR. WILL CAUDRA M.D. ECHOCARDIOGRAM REPORT PROCEDURE: CARDIO PULMONARY ECHOCARDIO [...] m/s, 3.18 m (more content not included)... [facility], Radiologist, - 07/11/2024 [place] [address] Cardiology Report Signed Patient: ANGELIKA MARTINS MR#: [id number] : 1940 Acct:[id number] Age/Sex: 84 / F ADM Date: 07/06/24 Loc: CARD Attending Dr: Cristela Portillo M.D. Ordering Physician: Cristela Portillo M.D. Date of Service: 07/06/24 Procedure(s): CA myocardial strain Accession Number(s): [id number] cc: Boone Ewing M.D.; Cristela Portillo M.D. Patient Name: ANGELIKA MARTINS MR#: [id number] : 1940 Exam Date: 07/06/2024 Ordering Doctor: [...] BOBBY MOORE Signed By: 07/11/24 1018 DD/ 1743 TD/TT: [employer] Operator: [facility] Transthoracic echo (TTE) com plete with strainOrdered By: Radiologist Radiology on 07-11-2024 [facility] Work Phone: Transthoracic echo (TTE) com plete with strainon 07-06-2024 Radiology Study observation (narrative) [facility] US BREAST RT LIMITEDon 07-05 US BREAST RT LIMITED US BREAST RT LIMITE D ANGELIKA Polanco ELIEZER 1940 [id number] EXAM: US BREAST RT LIMITED, 07/05/2024 12:53 [...] 07/05/2024 1:32 PM 6 F/U REFER DR Grubbs [facility] CBC AND AUTO DIFFon 06-29-19 25 ABSOLUTE BASOPHIL 0.1 X10E9/L Normal 0.0-0.2 [facility] Comment on above: Performed By: #### C BCA, CMP #### [facility] ([id number]) [address] [place] [address] ABSOLUTE NEUTROPHIL 8.7 X10E9/L High 1.5-6.6 [facility] [place] Comment on above: Performed By: #### C BCA, CMP #### [facility] ([id number]) [address] [place] [address] Basophils/100 WBC (Bld) 1.2 % Normal [facility] Comment on above: Performed By: #### C BCA, CMP #### [facility] ([id number]) [address], [facility] [address] [place] [address] Eosinophils (Bld) [#/Vol] 0.2 10*3/uL Normal 0.0-0.4 [facility] Comment on above: Performed By: #### C BCA, CMP #### [facility] ([id number]) [address], [facility] [address] [place] [address] Eosinophils/100 WBC (Bld) 2.1 % Normal [facility] Comment on above: Performed By: #### C BCA, CMP #### [facility] ([id number]) [address] [place] [address] Erythrocyte distribution width (RBC) [Ratio] 14.4 % Normal 11.5-15.0 [facility] Comment on above: Performed By: #### C BCA, CMP #### [facility] ([id number]) [address], [address] [place] [address] Hematocrit (Bld) [Volume fraction] 37.1 % Normal 35-47 [facility] Comment on above: Performed By: #### C BCA, CMP #### [facility] ([id number]) [address], [address] [place] [address] Hemoglobin (Bld) [Mass/Vol] 12.3 g/dL Normal 11.7-15.5 [facility] Comment on above: Performed By: #### C BCA, CMP #### [facility] ([id number]) [address] [place] [address] Lymphocytes (Bld) [#/Vol] 1.1 10*3/uL Normal 1.0-3.5 [facility] Comment on above: Performed By: #### C MALI, CMP #### [facility] ([id number]) [address], [address] [place] [address] Lymphocytes/100 WBC (Bld) 9.8 % Normal [facility] Comment on above: Performed By: #### C MALI, CMP #### [facility] ([id number]) [address] [place] [address] MCH (RBC) [Entitic mass] 31.4 pg Normal 27-34 [facility] Comment on above: Performed By: #### C MALI, CMP #### [facility] ([id number]) [address], [address] [place] [address] MCHC (RBC) [Mass/Vol] 33.3 g/dL Normal 32-36 [facility] Comment on above: Performed By: #### C BCA, CMP #### [facility] ([id number]) [address] [place] [address] MCV (RBC) [Entitic vol] 94 fL Normal 80-100 [facility] Comment on above: Performed By: #### C BCA, CMP #### [facility] ([id number]) [address], [address] [place] [address] Monocytes (Bld) [#/Vol] 1.1 10*3/uL High 0-0.9 [facility] Comment on above: Performed By: #### C BCA, CMP #### [facility] ([id number]) [address], [address] [place] [address] Monocytes/100 WBC (Bld) 10.1 % Normal [facility] Comment on above: Performed By: #### C BCA, CMP #### [facility] ([id number]) [address], [address] [place] [address] Neutrophils/100 WBC (Bld) 76.8 % Normal [facility] Comment on above: Performed By: #### C MALI, CMP #### [facility] ([id number]) [address], [address] [place] [address] Platelet mean volume (Bld) [Entitic vol] 9.4 fL Normal 7-12 [facility] Comment on above: Performed By: #### C MALI, CMP #### [facility] ([id number]) [address], [address] [place] [address] Platelets (Bld) [#/Vol] 284 10*3/uL Normal 150-450 [facility] Comment on above: Performed By: #### C MALI, CMP #### [facility] ([id number]) [address], [address] [place] [address] RBC COUNT 3.93 X10E12/L Normal 3.80-5.20 [facility] Comment on above: Performed By: #### C BCA, CMP #### [facility] ([id number]) [address], [address] [place] [address] WBC (Bld) [#/Vol] 11.3 10*3/uL High 4.0-11.0 [facility] Comment on above: Performed By: #### C BCA, CMP #### [facility] ([id number]) [address], [address] [place] [address] COMPREHENSIVE METABOLIC PANE Henry 06-28-2024 Albumin [Mass/Vol] 3.5 g/dL Normal 3.2-5.3 [facility] Comment on above: Performed By: #### C BCA, CMP #### [facility] ([id number]) [address], [address] [place] [address] ALP [Catalytic activity/Vol] 82 U/L Normal 39-130 [facility] Comment on above: Performed By: #### C BCA, CMP #### [facility] ([id number]) [address], [address] [place] [address] ALT [Catalytic activity/Vol] 11 U/L Normal 0-31 [facility] Comment on above: Performed By: #### C BCA, CMP #### [facility] ([id number]) [address], [address] [place] [address] Anion gap [Moles/Vol] 9 mmol/L Normal 5-15 [facility] Comment on above: Performed By: #### C BCA, CMP #### [facility] ([id number]) [address], [address] [place] [address] AST [Catalytic activity/Vol] 23 U/L Normal 0-41 [facility] Comment on above: Performed By: #### C BCA, CMP #### [facility] ([id number]) [address], [address] [place] [address] Bilirubin [Mass/Vol] 0.5 mg/dL Normal 0.3-1.2 [facility] [place] Comment on above: Performed By: #### C BCA, CMP #### [facility] ([id number]) [address], [address] [place] [address] Calcium [Mass/Vol] 9.1 mg/dL Normal 8.5-10.5 [facility] Comment on above: Performed By: #### C BCA, CMP #### [facility] ([id number]) [address], [address] [place] [address] Chloride [Moles/Vol] 105 mmol/L Normal 98-109 [facility] [place] Comment on above: Performed By: #### C BCA, CMP #### [facility] ([id number]) [address], [address] [place] [address] CO2 [Moles/Vol] 25 mmol/L Normal 22-32 [facility] Comment on above: Performed By: #### C BCA, CMP #### [facility] ([id number]) [address] [place] [address] Creatinine [Mass/Vol] 0.71 mg/dL Normal 0.40-1.00 [facility] Comment on above: Result Comment: METH OD TRACEABLE TO IDMS STANDARD Performed By: #### C BCA, CMP #### [facility] ([id number]) [address] [place] [address] GFR/1.73 sq M.predicted among non-blacks MDRD (S/P/Bld) [Vol rate/Area] 84 mL/min/{1.73_m2} Normal >59 [facility] Comment on above: Result Comment: Reported eGFR is based on the CKD-EPI 2020 equation that does not use a race coefficient. Performed By: #### C BCA, CMP #### [facility] ([id number]) [address] [place] [address] Glucose [Mass/Vol] 98 mg/dL Normal 65-99 [facility] Comment on above: Performed By: #### C BCA, CMP #### [facility] ([id number]) [address] [address] [place] [address] Potassium [Moles/Vol] 3.6 mmol/L Normal 3.5-5.0 [facility] Comment on above: Performed By: #### C BCA, CMP #### [facility] ([id number]) [address], [address] [place] [address] Protein [Mass/Vol] 5.9 g/dL Low 6.0-8.0 [facility] Comment on above: Performed By: #### C MALI, CMP #### [facility] ([id number]) [address], [address] [place] [address] Sodium [Moles/Vol] 139 mmol/L Normal 134-146 [facility] Comment on above: Performed By: #### C MALI, CMP #### [facility] ([id number]) [address], [address] [place] [address] Urea nitrogen [Mass/Vol] 15 mg/dL Normal 5-27 [facility] Comment on above: Performed By: #### C MALI, CMP #### [facility] ([id number]) [address], [address] [place] [address] CBC AND AUTO DIFFon 06-08-19 25 ABSOLUTE BASOPHIL 0.1 X10E9/L Normal 0.0-0.2 [facility] Comment on above: Performed By: #### C MALI, CMP #### [facility] ([id number]) [address], [address] [place] [address] ABSOLUTE NEUTROPHIL 4.0 X10E9/L Normal 1.5-6.6 [facility] [place] Comment on above: Performed By: #### C MALI, CMP #### [facility] ([id number]) [address], [address] [place] [address] Basophils/100 WBC (Bld) 2.0 % Normal [facility] Comment on above: Performed By: #### C BCA, CMP #### [facility] ([id number]) [address], [address] [place] [address] Eosinophils (Bld) [#/Vol] 0.3 10*3/uL Normal 0.0-0.4 [facility] Comment on above: Performed By: #### C BCA, CMP #### [facility] ([id number]) [address], [address] [place] [address] Eosinophils/100 WBC (Bld) 4.3 % Normal [facility] Comment on above: Performed By: #### C BCA, CMP #### [facility] ([id number]) [address], [address] [place] [address] Erythrocyte distribution width (RBC) [Ratio] 14.2 % Normal 11.5-15.0 [facility] Comment on above: Performed By: #### C MALI, CMP #### [facility] ([id number]) [address], [address] [place] [address] Hematocrit (Bld) [Volume fraction] 37.3 % Normal 35-47 [facility] Comment on above: Performed By: #### C BCA, CMP #### [facility] ([id number]) [address] [address] [place] [address] Hemoglobin (Bld) [Mass/Vol] 12.4 g/dL Normal 11.7-15.5 [facility] Comment on above: Performed By: #### C BCA, CMP #### [facility] ([id number]) [address], [address] [place] [address] Lymphocytes (Bld) [#/Vol] 0.9 10*3/uL Low 1.0-3.5 [facility] Comment on above: Performed By: #### C BCA, CMP #### [facility] ([id number]) [address], [address] [place] [address] Lymphocytes/100 WBC (Bld) 14.6 % Normal [facility] Comment on above: Performed By: #### C BCA, CMP #### [facility] ([id number]) [address], [address] [place] [address] MCH (RBC) [Entitic mass] 31.5 pg Normal 27-34 [facility] Comment on above: Performed By: #### C BCA, CMP #### [facility] ([id number]) [address], [address] [place] [address] MCHC (RBC) [Mass/Vol] 33.3 g/dL Normal 32-36 [facility] Comment on above: Performed By: #### C BCA, CMP #### [facility] ([id number]) [address], [address] [place] [address] MCV (RBC) [Entitic vol] 95 fL Normal 80-100 [facility] Comment on above: Performed By: #### C BCA, CMP #### [facility] ([id number]) [address], [address] [place] [address] Monocytes (Bld) [#/Vol] 0.8 10*3/uL Normal 0-0.9 [facility] Comment on above: Performed By: #### C BCA, CMP #### [facility] ([id number]) [address], [address] [place] [address] Monocytes/100 WBC (Bld) 12.7 % Normal [facility] Comment on above: Performed By: #### C BCA, CMP #### [facility] ([id number]) [address] [place] [address] Neutrophils/100 WBC (Bld) 66.4 % Normal [facility] Comment on above: Performed By: #### C BCA, CMP #### [facility] ([id number]) [address] [address] [place] [address] Platelet mean volume (Bld) [Entitic vol] 9.1 fL Normal 7-12 [facility] Comment on above: Performed By: #### C BCA, CMP #### [facility] ([id number]) [address] [address] Platelets (Bld) [#/Vol] 323 10*3/uL Normal 150-450 [facility] Comment on above: Performed By: #### C MALI, CMP #### [facility] ([id number]) [address] [address] RBC COUNT 3.94 X10E12/L Normal 3.80-5.20 [facility] Comment on above: Performed By: #### C MALI, CMP #### [facility] ([id number]) [address] [address] WBC (Bld) [#/Vol] 6.0 10*3/uL Normal 4.0-11.0 [facility] Comment on above: Performed By: #### C MALI, CMP #### [facility] ([id number]) [address] [address] CREATININEon 06-07-2024 Creatinine [Mass/Vol] 0.64 mg/dL Normal 0.40-1.00 [facility] Comment on above: Result Comment: METH OD TRACEABLE TO IDMS STANDARD Performed By: #### C MALI, CMP #### [facility] ([id number]) [address] [address] GFR/1.73 sq M.predicted among non-blacks MDRD (S/P/Bld) [Vol rate/Area] 87 mL/min/{1.73_m2} Normal >59 [facility] Comment on above: Result Comment: Reported eGFR is based on the CKD-EPI 2020 equation that does not use a race coefficient. Performed By: #### C BCA, CMP #### [facility] ([id number]) [address] [address] ESR Photometric method (Bld) [Velocity]on 06-07-2024 ESR, ERYTHROCYTE SEDIMENTATION RATE 8 mm/h Normal 0-30 [facility] Comment on above: Performed By: #### C BCA, CMP #### [facility] ([id number]) [address] [place] [address] LIVER PANELon 06-07-2024 Albumin [Mass/Vol] 3.5 g/dL Normal 3.2-5.3 [facility] Comment on above: Performed By: #### C BCA, CMP #### [facility] ([id number]) [address], [address] [place] [address] ALP [Catalytic activity/Vol] 70 U/L Normal 39-130 [facility] Comment on above: Performed By: #### C BCA, CMP #### [facility] ([id number]) [address] [place] [address] ALT [Catalytic activity/Vol] 17 U/L Normal 0-31 [facility] Comment on above: Performed By: #### C BCA, CMP #### [facility] ([id number]) [address], [address] [place] [address] AST [Catalytic activity/Vol] 27 U/L Normal 0-41 [facility] Comment on above: Performed By: #### C BCA, CMP #### [facility] ([id number]) [address], [address] [place] [address] Bilirubin [Mass/Vol] 0.4 mg/dL Normal 0.3-1.2 [facility] Comment on above: Performed By: #### C BCA, CMP #### [facility] ([id number]) [address] [place] [address] Bilirubin.direct [Mass/Vol] 0.1 mg/dL Normal 0.0-0.4 [facility] Comment on above: Performed By: #### C BCA, CMP #### [facility] ([id number]) [address] [place] [address] Protein [Mass/Vol] 5.9 g/dL Low 6.0-8.0 [facility] Comment on above: Performed By: #### C BCA, CMP #### [facility] ([id number]) [address], [address] [place] [address] CBC AND AUTO DIFFon 05-31- 25 ABSOLUTE BASOPHIL 0.1 X10E9/L Normal 0.0-0.2 [facility] Comment on above: Performed By: #### C MP, CBCA #### [facility] ([id number]) [address] [place] [address] ABSOLUTE NEUTROPHIL 4.0 X10E9/L Normal 1.5-6.6 [facility] [place] Comment on above: Performed By: #### C MP, CBCA #### [facility] ([id number]) [address] [place] [address] Basophils/100 WBC (Bld) 1.5 % Normal [facility] Comment on above: Performed By: #### C MP, CBCA #### [facility] ([id number]) [address] [place] [address] Eosinophils (Bld) [#/Vol] 0.1 10*3/uL Normal 0.0-0.4 [facility] Comment on above: Performed By: #### C MP, CBCA #### [facility] ([id number]) [address] [place] [address] Eosinophils/100 WBC (Bld) 2.2 % Normal [facility] Comment on above: Performed By: #### C MP, CBCA #### [facility] ([id number]) [address] [place] [address] Erythrocyte distribution width (RBC) [Ratio] 14.0 % Normal 11.5-15.0 [facility] Comment on above: Performed By: #### C MP, CBCA #### [facility] ([id number]) [address] [place] [address] Hematocrit (Bld) [Volume fraction] 39.7 % Normal 35-47 [facility] Comment on above: Performed By: #### C MP, CBCA #### [facility] ([id number]) [address] [place] [address] Hemoglobin (Bld) [Mass/Vol] 13.2 g/dL Normal 11.7-15.5 [facility] Comment on above: Performed By: #### C MP, CBCA #### [facility] ([id number]) [address] [place] [address] Lymphocytes (Bld) [#/Vol] 1.1 10*3/uL Normal 1.0-3.5 [facility] Comment on above: Performed By: #### C MP, CBCA #### [facility] ([id number]) [address] [place] [address] Lymphocytes/100 WBC (Bld) 18.1 % Normal [facility] Comment on above: Performed By: #### C MP, CBCA #### [facility] ([id number]) [address] [place] [address] MCH (RBC) [Entitic mass] 31.4 pg Normal 27-34 [facility] Comment on above: Performed By: #### C MP, CBCA #### [facility] ([id number]) [address] [place] [address] MCHC (RBC) [Mass/Vol] 33.2 g/dL Normal 32-36 [facility] Comment on above: Performed By: #### C MP, CBCA #### [facility] ([id number]) [address] [place] [address] MCV (RBC) [Entitic vol] 95 fL Normal 80-100 [facility] Comment on above: Performed By: #### C MP, CBCA #### [facility] ([id number]) [address] [place] [address] Monocytes (Bld) [#/Vol] 0.6 10*3/uL Normal 0-0.9 [facility] Comment on above: Performed By: #### C MP, CBCA #### [facility] ([id number]) [address] [place] [address] Monocytes/100 WBC (Bld) 9.7 % Normal [facility] Comment on above: Performed By: #### C MP, CBCA #### [facility] ([id number]) [address] [place] [address] Neutrophils/100 WBC (Bld) 68.5 % Normal [facility] Comment on above: Performed By: #### C MP, CBCA #### [facility] ([id number]) [address] [place] [address] Platelet mean volume (Bld) [Entitic vol] 9.1 fL Normal 7-12 [facility] Comment on above: Performed By: #### C MP, CBCA #### [facility] ([id number]) [address] [place] [address] Platelets (Bld) [#/Vol] 241 10*3/uL Normal 150-450 [facility] Comment on above: Performed By: #### C MP, CBCA #### [facility] ([id number]) [address] [place] [address] RBC COUNT 4.19 X10E12/L Normal 3.80-5.20 [facility] Comment on above: Performed By: #### C MP, CBCA #### [facility] ([id number]) [address] [place] [address] WBC (Bld) [#/Vol] 5.9 10*3/uL Normal 4.0-11.0 [facility] Comment on above: Performed By: #### C LARA CBCA #### [facility] ([id number]) [address] [place] [address] COMPREHENSIVE METABOLIC PANE Henry 05-31-2024 Albumin [Mass/Vol] 3.4 g/dL Normal 3.2-5.3 [facility] Comment on above: Performed By: #### C LARA CBCA #### [facility] ([id number]) [address] [place] [address] ALP [Catalytic activity/Vol] 63 U/L Normal 39-130 [facility] Comment on above: Performed By: #### C LARA CBCA #### [facility] ([id number]) [address] [place] [address] ALT [Catalytic activity/Vol] 14 U/L Normal 0-31 [facility] Comment on above: Performed By: #### C LARA CBCA #### [facility] ([id number]) [address] [place] [address] Anion gap [Moles/Vol] 7 mmol/L Normal 5-15 [facility] Comment on above: Performed By: #### C LARA CBCA #### [facility] ([id number]) [address] [place] [address] AST [Catalytic activity/Vol] 23 U/L Normal 0-41 [facility] Comment on above: Performed By: #### C LARA, CBCA #### [facility] ([id number]) [address] [place] [address] Bilirubin [Mass/Vol] 0.5 mg/dL Normal 0.3-1.2 [facility] Comment on above: Performed By: #### C LARA, CBCA #### [facility] ([id number]) [address] [address] [place] [address] Calcium [Mass/Vol] 9.0 mg/dL Normal 8.5-10.5 [facility] Comment on above: Performed By: #### C LARA, CBCA #### [facility] ([id number]) [address] [place] [address] Chloride [Moles/Vol] 106 mmol/L Normal 98-109 [facility] Comment on above: Performed By: #### C LARA, CBCA #### [facility] ([id number]) [address] [address] [place] [address] CO2 [Moles/Vol] 27 mmol/L Normal 22-32 [facility] Comment on above: Performed By: #### C LARA, CBCA #### [facility] ([id number]) [address] [address] [place] [address] Creatinine [Mass/Vol] 0.72 mg/dL Normal 0.40-1.00 [facility] Comment on above: Result Comment: METH OD TRACEABLE TO IDMS STANDARD Performed By: #### C LARA, CBCA #### [facility] ([id number]) [address] [address] [place] [address] GFR/1.73 sq M.predicted among non-blacks MDRD (S/P/Bld) [Vol rate/Area] 82 mL/min/{1.73_m2} Normal >59 [facility] Comment on above: Result Comment: Reported eGFR is based on the CKD-EPI 2020 equation that does not use a race coefficient. Performed By: #### C LARA, CBCA #### [facility] ([id number]) [address] [address] [place] [address] Glucose [Mass/Vol] 85 mg/dL Normal 65-99 [facility] Comment on above: Performed By: #### C MP, CBCA #### [facility] ([id number]) [address] [place] [place] [address] Potassium [Moles/Vol] 3.6 mmol/L Normal 3.5-5.0 [facility] Comment on above: Performed By: #### C MP, CBCA #### [facility] ([id number]) [address], [address] [place] [address] Protein [Mass/Vol] 6.0 g/dL Normal 6.0-8.0 [facility] Comment on above: Performed By: #### C MP, CBCA #### [facility] ([id number]) [address], [address] [place] [address] Sodium [Moles/Vol] 140 mmol/L Normal 134-146 [facility] Comment on above: Performed By: #### C MP, CBCA #### [facility] ([id number]) [address], [address] [place] [address] Urea nitrogen [Mass/Vol] 17 mg/dL Normal 5-27 [facility] Comment on above: Performed By: #### C MP, CBCA #### [facility] ([id number]) [address], [address] [place] [address] XR LUMBAR SPINE 2 OR 3Von [address] [address] XRay Report Signed Patient: ANGELIKA MARTINS MR#: [id number] : 1940 Acct:[id number] Age/Sex: 84 / F ADM Date: 05/09/24 Loc: RAD Attending Dr: Boone Ewing M.D. Ordering Physician: Boone Ewing M.D. Date of Service: 05/09/24 Procedure(s): XR lumbar spine 2-3V Accession Number(s): [id number] cc: Boone Ewing M.D. 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 Ordering Physician: Boone Ewing M.D. Date of Service: 05/09/24 Procedure(s): XR lumbar spine 2-3V Accession Number(s): [id number] cc: Boone Ewing M.D. The [address] [address] Patient Name: AGNELIKA MARTINS MRN: [id number] date: 1940 Sex: F Assigned Patient Location: [facility] Current Patient Location: Accession/Order Number: [id number] Exam Date: 05/09/2024 12:40 Report Date: 05/12/2024 [...] Signed By: 05/12/24 1020 DD/ 1018 TD/TT: A[employer]le Washing Machine Operator: [facility] Radiology Study observation (narrative) [facility] XR LUMBAR SPINE 2 OR 3VOrder ed By: Radiologist Radiology on 05-12-2024 [facility] Work Phone: Urinalysis macro (dipstick) panel (U)on 05-09-2024 Bilirubin, UA Negative Negative - 4(70) +++ mg/dL [facility] Blood, UA Positive Negative - 50 Cr/mcL [facility] Clarity, UA Clear [facility] Color, UA Dark Terrie [facility] Glucose, UA Negative Negative - 1999(110) ++++ mg/dL [facility] Interpretation and review of laboratory results Normal [facility] Ketones, UA Negative Negative - 160(16) ++++ mg/dL [facility] Leukocytes, UA Negative Negative - 500+++ Radha/mcL [facility] Nitrite, UA Few Negative - Positive [facility] pH, UA 6 5 - 9 [facility] Protein, UA Negative Negative - 1999(20) ++++ mg/dL [facility] Spec Grav, UA 1.025 1 - 1.03 [facility] Urobilinogen, UA 0.2 0.2 - 12 mg/dL [facility] CBC AND AUTO DIFFon 05-03-19 ABSOLUTE BASOPHIL 0.1 X10E9/L Normal 0.0-0.2 [facility] Comment on above: Performed By: #### C MP, CBCA #### [facility] ([id number]) [address], [address] [place] [address] ABSOLUTE NEUTROPHIL 4.6 X10E9/L Normal 1.5-6.6 [facility] Comment on above: Performed By: #### C LARA, CBCA #### [facility] ([id number]) [address], [address] [place] [address] Basophils/100 WBC (Bld) 1.3 % Normal [facility] Comment on above: Performed By: #### C LARA, CBCA #### [facility] ([id number]) [address] [address] [place] [address] Eosinophils (Bld) [#/Vol] 0.2 10*3/uL Normal 0.0-0.4 [facility] Comment on above: Performed By: #### C MP, CBCA #### [facility] ([id number]) [address], [address] [place] [address] Eosinophils/100 WBC (Bld) 2.6 % Normal [facility] Comment on above: Performed By: #### C MP, CBCA #### [facility] ([id number]) [address], [address] [place] [address] Erythrocyte distribution width (RBC) [Ratio] 13.6 % Normal 11.5-15.0 [facility] Comment on above: Performed By: #### C MP, CBCA #### [facility] ([id number]) [address], [address] [place] [address] Hematocrit (Bld) [Volume fraction] 39.3 % Normal 35-47 [facility] Comment on above: Performed By: #### C MP, CBCA #### [facility] ([id number]) [address], [address] [place] [address] Hemoglobin (Bld) [Mass/Vol] 13.5 g/dL Normal 11.7-15.5 [facility] Comment on above: Performed By: #### C MP, CBCA #### [facility] ([id number]) [address], [address] [place] [address] Lymphocytes (Bld) [#/Vol] 1.2 10*3/uL Normal 1.0-3.5 [facility] Comment on above: Performed By: #### C LARA, CBCA #### [facility] ([id number]) [address], [address] [place] [address] Lymphocytes/100 WBC (Bld) 17.2 % Normal [facility] Comment on above: Performed By: #### C LARA, CBCA #### [facility] ([id number]) [address], [address] [place] [address] MCH (RBC) [Entitic mass] 32.9 pg Normal 27-34 [facility] Comment on above: Performed By: #### C MP, CBCA #### [facility] ([id number]) [address], [address] [place] [address] MCHC (RBC) [Mass/Vol] 34.4 g/dL Normal 32-36 [facility] Comment on above: Performed By: #### C MP, CBCA #### [facility] ([id number]) [address] [address] [place] [address] MCV (RBC) [Entitic vol] 96 fL Normal 80-100 [facility] Comment on above: Performed By: #### C MP, CBCA #### [facility] ([id number]) [address], [address] [place] [address] Monocytes (Bld) [#/Vol] 0.6 10*3/uL Normal 0-0.9 [facility] Comment on above: Performed By: #### C MP, CBCA #### [facility] ([id number]) [address], [address] [place] [address] Monocytes/100 WBC (Bld) 9.7 % Normal [facility] Comment on above: Performed By: #### C MP, CBCA #### [facility] ([id number]) [address], [address] [place] [address] Neutrophils/100 WBC (Bld) 69.2 % Normal [facility] Comment on above: Performed By: #### C MP, CBCA #### [facility] ([id number]) [address], [address] [place] [address] Platelet mean volume (Bld) [Entitic vol] 9.7 fL Normal 7-12 [facility] Comment on above: Performed By: #### C MP, CBCA #### [facility] ([id number]) [address], [address] [place] [address] Platelets (Bld) [#/Vol] 290 10*3/uL Normal 150-450 [facility] Comment on above: Performed By: #### C MP, CBCA #### [facility] ([id number]) [address], [address] [place] [address] RBC COUNT 4.11 X10E12/L Normal 3.80-5.20 [facility] Comment on above: Performed By: #### C MP, CBCA #### [facility] ([id number]) [address] [address] [place] [address] WBC (Bld) [#/Vol] 6.7 10*3/uL Normal 4.0-11.0 [facility] Comment on above: Performed By: #### C LARA, CBCA #### [facility] ([id number]) [address], [address] [place] [address] COMPREHENSIVE METABOLIC PANE Henry 05-03-2024 Albumin [Mass/Vol] 3.6 g/dL Normal 3.2-5.3 [facility] Comment on above: Performed By: #### C LARA, CBCA #### [facility] ([id number]) [address], [address] [place] [address] ALP [Catalytic activity/Vol] 80 U/L Normal 39-130 [facility] Comment on above: Performed By: #### C LARA, CBCA #### [facility] ([id number]) [address], [address] [place] [address] ALT [Catalytic activity/Vol] 12 U/L Normal 0-31 [facility] Comment on above: Performed By: #### C LARA, CBCA #### [facility] ([id number]) [address], [address] [place] [address] Anion gap [Moles/Vol] 14 mmol/L Normal 5-15 [facility] Comment on above: Performed By: #### C LARA, CBCA #### [facility] ([id number]) [address], [address] [place] [address] AST [Catalytic activity/Vol] 29 U/L Normal 0-41 [facility] Comment on above: Performed By: #### C LARA, CBCA #### [facility] ([id number]) [address], [address] [place] [address] Bilirubin [Mass/Vol] 0.5 mg/dL Normal 0.3-1.2 [facility] Comment on above: Performed By: #### C LARA, CBCA #### [facility] ([id number]) [address], [address] [place] [address] Calcium [Mass/Vol] 9.1 mg/dL Normal 8.5-10.5 [facility] Comment on above: Performed By: #### YENNIFER Bonner MP #### [facility] ([id number]) [address], [address] [place] [address] Chloride [Moles/Vol] 106 mmol/L Normal 98-109 [facility] Comment on above: Performed By: #### Ha BEMRUDEZ CBCA #### [facility] ([id number]) [address] [address] [place] [address] CO2 [Moles/Vol] 20 mmol/L Low 22-32 [facility] Comment on above: Performed By: #### YENNIFER Bonner MP #### [facility] ([id number]) [address] [place] [address] Creatinine [Mass/Vol] 0.74 mg/dL Normal 0.40-1.00 [facility] Comment on above: Result Comment: METH OD TRACEABLE TO IDMS STANDARD Performed By: #### YENNIFER Bonner MP #### [facility] ([id number]) [address], [address] [place] [address] GFR/1.73 sq M.predicted among non-blacks MDRD (S/P/Bld) [Vol rate/Area] 80 mL/min/{1.73_m2} Normal >59 [facility] Comment on above: Result Comment: Reported eGFR is based on the CKD-EPI 2020 equation that does not use a race coefficient. Performed By: #### C YENNIFER BERMUDEZ #### [facility] ([id number]) [address] [address] [place] [address] Glucose [Mass/Vol] 117 mg/dL High 65-99 [facility] Comment on above: Performed By: #### YENNIFER Bonner MP #### [facility] ([id number]) [address] [place] [address] Potassium [Moles/Vol] 3.6 mmol/L Normal 3.5-5.0 [facility] Comment on above: Performed By: #### C LARA, CBCA #### [facility] ([id number]) [address], [address] [place] [address] Protein [Mass/Vol] 6.4 g/dL Normal 6.0-8.0 [facility] Comment on above: Performed By: #### C LARA, CBCA #### [facility] ([id number]) [address], [address] [place] [address] Sodium [Moles/Vol] 140 mmol/L Normal 134-146 [facility] Comment on above: Performed By: #### C LARA, CBCA #### [facility] ([id number]) [address], [address] [place] [address] Urea nitrogen [Mass/Vol] 17 mg/dL Normal 5-27 [facility] Comment on above: Performed By: #### C LARA CBCA #### [facility] ([id number]) [address], [address] [place] [address] POCT EKGon 04-19-2024 [facility] CBC AND AUTO DIFFon 04-12-19 25 ABSOLUTE BASOPHIL 0.1 X10E9/L Normal 0.0-0.2 [facility] Comment on above: Performed By: #### C LARA, CBCA #### [facility] ([id number]) [address], [address] [place] [address] ABSOLUTE NEUTROPHIL 4.4 X10E9/L Normal 1.5-6.6 [facility] Comment on above: Performed By: #### C LARA, CBCA #### [facility] ([id number]) [address], [address] [place] [address] Basophils/100 WBC (Bld) 2.1 % Normal [facility] Comment on above: Performed By: #### C MP, CBCA #### [facility] ([id number]) [address], [address] [place] [address] Eosinophils (Bld) [#/Vol] 0.2 10*3/uL Normal 0.0-0.4 [facility] Comment on above: Performed By: #### C MP, CBCA #### [facility] ([id number]) [address] [address] [place] [address] Eosinophils/100 WBC (Bld) 3.0 % Normal [facility] Comment on above: Performed By: #### C MP, CBCA #### [facility] ([id number]) [address], [facility] [address] [place] [address] Erythrocyte distribution width (RBC) [Ratio] 14.1 % Normal 11.5-15.0 [facility] Comment on above: Performed By: #### C MP, CBCA #### [facility] ([id number]) [address], [facility] [address] [place] [address] Hematocrit (Bld) [Volume fraction] 37.9 % Normal 35-47 [facility] Comment on above: Performed By: #### C MP, CBCA #### [facility] ([id number]) [address] [address] [place] [address] Hemoglobin (Bld) [Mass/Vol] 12.8 g/dL Normal 11.7-15.5 [facility] Comment on above: Performed By: #### C MP, CBCA #### [facility] ([id number]) [address] [address] [place] [address] Lymphocytes (Bld) [#/Vol] 1.0 10*3/uL Normal 1.0-3.5 [facility] Comment on above: Performed By: #### C MP, CBCA #### [facility] ([id number]) [address], [address] [place] [address] Lymphocytes/100 WBC (Bld) 15.9 % Normal [facility] Comment on above: Performed By: #### C MP, CBCA #### [facility] ([id number]) [address] [place] [address] MCH (RBC) [Entitic mass] 32.2 pg Normal 27-34 [facility] Comment on above: Performed By: #### C MP, CBCA #### [facility] ([id number]) [address] [place] [address] MCHC (RBC) [Mass/Vol] 33.7 g/dL Normal 32-36 [facility] Comment on above: Performed By: #### C LARA, CBCA #### [facility] ([id number]) [address] [place] [address] MCV (RBC) [Entitic vol] 96 fL Normal 80-100 [facility] Comment on above: Performed By: #### C MP, CBCA #### [facility] ([id number]) [address] [place] [address] Monocytes (Bld) [#/Vol] 0.7 10*3/uL Normal 0-0.9 [facility] Comment on above: Performed By: #### C MP, CBCA #### [facility] ([id number]) [address] [place] [address] Monocytes/100 WBC (Bld) 10.9 % Normal [facility] Comment on above: Performed By: #### C MP, CBCA #### [facility] ([id number]) [address], [address] [place] [address] Neutrophils/100 WBC (Bld) 68.1 % Normal [facility] Comment on above: Performed By: #### C MP, CBCA #### [facility] ([id number]) [address], [address] [place] [address] Platelet mean volume (Bld) [Entitic vol] 9.0 fL Normal 7-12 [facility] Comment on above: Performed By: #### C MP, CBCA #### [facility] ([id number]) [address], [address] [place] [address] Platelets (Bld) [#/Vol] 300 10*3/uL Normal 150-450 [facility] Comment on above: Performed By: #### C LARA, CBCA #### [facility] ([id number]) [address] [place] [address] RBC COUNT 3.97 X10E12/L Normal 3.80-5.20 [facility] Comment on above: Performed By: #### C LARA, CBCA #### [facility] ([id number]) [address], [address] [place] [address] WBC (Bld) [#/Vol] 6.5 10*3/uL Normal 4.0-11.0 [facility] Comment on above: Performed By: #### C LARA, CBCA #### [facility] ([id number]) [address] [place] [address] COMPREHENSIVE METABOLIC PANE Henry 04-12-2024 Albumin [Mass/Vol] 3.6 g/dL Normal 3.2-5.3 [facility] Comment on above: Performed By: #### C MP, CBCA #### [facility] ([id number]) [address], [address] [place] [address] ALP [Catalytic activity/Vol] 79 U/L Normal 39-130 [facility] Comment on above: Performed By: #### C MP, CBCA #### [facility] ([id number]) [address] [place] [address] ALT [Catalytic activity/Vol] 15 U/L Normal 0-31 [facility] Comment on above: Performed By: #### C LARA CBCA #### [facility] ([id number]) [address] [place] [address] Anion gap [Moles/Vol] 10 mmol/L Normal 5-15 [facility] Comment on above: Performed By: #### C LARA CBCA #### [facility] ([id number]) [address] [place] [address] AST [Catalytic activity/Vol] 26 U/L Normal 0-41 [facility] Comment on above: Performed By: #### C LARA CBCA #### [facility] ([id number]) [address] [place] [address] Bilirubin [Mass/Vol] 0.4 mg/dL Normal 0.3-1.2 [facility] [place] Comment on above: Performed By: #### C LARA CBCA #### [facility] ([id number]) [address] [place] [address] Calcium [Mass/Vol] 9.4 mg/dL Normal 8.5-10.5 [facility] Comment on above: Performed By: #### C LARA CBCA #### [facility] ([id number]) [address] [place] [address] Chloride [Moles/Vol] 106 mmol/L Normal 98-109 [facility] Comment on above: Performed By: #### C LARA CBCA #### [facility] ([id number]) [address] [place] [address] CO2 [Moles/Vol] 23 mmol/L Normal 22-32 [facility] Comment on above: Performed By: #### C LARA CBCA #### [facility] ([id number]) [address] [address] [place] [address] Creatinine [Mass/Vol] 0.72 mg/dL Normal 0.40-1.00 [facility] Comment on above: Result Comment: METH OD TRACEABLE TO IDMS STANDARD Performed By: #### C LARA CBCBenjie #### [facility] ([id number]) [address] [place] [address] GFR/1.73 sq M.predicted among non-blacks MDRD (S/P/Bld) [Vol rate/Area] 82 mL/min/{1.73_m2} Normal >59 [facility] Comment on above: Result Comment: Reported eGFR is based on the CKD-EPI 2020 equation that does not use a race coefficient. Performed By: #### C YENNIFER BERMUDEZ #### [facility] ([id number]) [address] [place] [address] Glucose [Mass/Vol] 117 mg/dL High 65-99 [facility] Comment on above: Performed By: #### C YENNIFER BERMUDEZ #### [facility] ([id number]) [address] [address] [place] [address] Potassium [Moles/Vol] 3.7 mmol/L Normal 3.5-5.0 [facility] Comment on above: Performed By: #### C LARA CBCBenjie #### [facility] ([id number]) [address] [address] [place] [address] Protein [Mass/Vol] 6.1 g/dL Normal 6.0-8.0 [facility] Comment on above: Performed By: #### C LARA CBCA #### [facility] ([id number]) [address] [address] [place] [address] Sodium [Moles/Vol] 139 mmol/L Normal 134-146 [facility] Comment on above: Performed By: #### C MP, CBCA #### [facility] ([id number]) [address] [address] [place] [address] Urea nitrogen [Mass/Vol] 22 mg/dL Normal 5-27 [facility] Comment on above: Performed By: #### C MP, CBCA #### [facility] ([id number]) [address], [facility] [address] [place] [address] ESR Photometric method (Bld) [Velocity]on 04-12-2024 ESR, ERYTHROCYTE SEDIMENTATION RATE 14 mm/h Normal 0-30 [facility] Comment on above: Performed By: #### C MP, CBCA #### [facility] ([id number]) [address] [place] [address] LIVER PANELon 04-12-2024 Bilirubin.direct [Mass/Vol] 0.1 mg/dL Normal 0.0-0.4 [facility] Comment on above: Performed By: #### C MP, CBCA #### [facility] ([id number]) [address] [address] [place] [address] CBC AND AUTO DIFFon 1217-20 24 ABSOLUTE BASOPHIL 0.1 X10E9/L Normal 0.0-0.2 [facility] Comment on above: Performed By: #### C MP, CBCA #### [facility] ([id number]) [address], [facility] [address] [place] [address] ABSOLUTE NEUTROPHIL 3.7 X10E9/L Normal 1.5-6.6 [facility] [place] Comment on above: Performed By: #### C MP, CBCA #### [facility] ([id number]) [address] [address] Basophils/100 WBC (Bld) 2.2 % Normal [facility] Comment on above: Performed By: #### C MP, CBCA #### [facility] ([id number]) [address], [address] [place] [address] Eosinophils (Bld) [#/Vol] 0.2 10*3/uL Normal 0.0-0.4 [facility] Comment on above: Performed By: #### C MP, CBCA #### [facility] ([id number]) [address], [address] [place] [address] Eosinophils/100 WBC (Bld) 3.8 % Normal [facility] Comment on above: Performed By: #### C MP, CBCA #### [facility] ([id number]) [address], [facility] [address] [place] [address] Erythrocyte distribution width (RBC) [Ratio] 13.9 % Normal 11.5-15.0 [facility] Comment on above: Performed By: #### C MP, CBCA #### [facility] ([id number]) [address], [address] [place] [address] Hematocrit (Bld) [Volume fraction] 37.3 % Normal 35-47 [facility] Comment on above: Performed By: #### C MP, CBCA #### [facility] ([id number]) [address] [address] [place] [address] Hemoglobin (Bld) [Mass/Vol] 12.5 g/dL Normal 11.7-15.5 [facility] Comment on above: Performed By: #### C MP, CBCA #### [facility] ([id number]) [address] [address] [place] [address] Lymphocytes (Bld) [#/Vol] 1.0 10*3/uL Normal 1.0-3.5 [facility] Comment on above: Performed By: #### C MP, CBCA #### [facility] [facility] ([id number]) [address], [address] [place] [address] Lymphocytes/100 WBC (Bld) 17.6 % Normal [facility] Comment on above: Performed By: #### C MP, CBCA #### [facility] ([id number]) [address], [address] [place] [address] MCH (RBC) [Entitic mass] 32.0 pg Normal 27-34 [facility] Comment on above: Performed By: #### C MP, CBCA #### [facility] ([id number]) [address], [address] [place] [address] MCHC (RBC) [Mass/Vol] 33.4 g/dL Normal 32-36 [facility] Comment on above: Performed By: #### C MP, CBCA #### [facility] ([id number]) [address], [address] [place] [address] MCV (RBC) [Entitic vol] 96 fL Normal 80-100 [facility] Comment on above: Performed By: #### C MP, CBCA #### [facility] ([id number]) [address], [address] [place] [address] Monocytes (Bld) [#/Vol] 0.8 10*3/uL Normal 0-0.9 [facility] Comment on above: Performed By: #### C MP, CBCA #### [facility] ([id number]) [address], [address] [place] [address] Monocytes/100 WBC (Bld) 13.0 % Normal [facility] Comment on above: Performed By: #### C MP, CBCA #### [facility] ([id number]) [address], [address] [place] [address] Neutrophils/100 WBC (Bld) 63.4 % Normal [facility] Comment on above: Performed By: #### C MP, CBCA #### [facility] ([id number]) [address], [address] [place] [address] Platelet mean volume (Bld) [Entitic vol] 9.1 fL Normal 7-12 [facility] Comment on above: Performed By: #### C LARA, CBCA #### [facility] ([id number]) [address], [address] [place] [address] Platelets (Bld) [#/Vol] 290 10*3/uL Normal 150-450 [facility] Comment on above: Performed By: #### C MP, CBCA #### [facility] ([id number]) [address], [facility] [address] [place] [address] RBC COUNT 3.90 X10E12/L Normal 3.80-5.20 [facility] Comment on above: Performed By: #### C LARA, CBCA #### [facility] ([id number]) [address], [facility] [address] [place] [address] WBC (Bld) [#/Vol] 5.8 10*3/uL Normal 4.0-11.0 [facility] Comment on above: Performed By: #### C LARA, CBCA #### [facility] ([id number]) [address], [address] [place] [address] COMPREHENSIVE METABOLIC PANE Henry 03-22-2024 Albumin [Mass/Vol] 3.6 g/dL Normal 3.2-5.3 [facility] Comment on above: Performed By: #### C MP, CBCA #### [facility] ([id number]) [address], [address] [place] [address] ALP [Catalytic activity/Vol] 99 U/L Normal 39-130 [facility] Comment on above: Performed By: #### C MP, CBCA #### [facility] ([id number]) [address], [address] [place] [address] ALT [Catalytic activity/Vol] 14 U/L Normal 0-31 [facility] Comment on above: Performed By: #### C LARA, CBCA #### [facility] ([id number]) [address], [address] [place] [address] Anion gap [Moles/Vol] 10 mmol/L Normal 5-15 [facility] Comment on above: Performed By: #### C LARA, CBCA #### [facility] ([id number]) [address], [address] [place] [address] AST [Catalytic activity/Vol] 31 U/L Normal 0-41 [facility] Comment on above: Performed By: #### C LARA, CBCA #### [facility] ([id number]) [address], [address] [place] [address] Bilirubin [Mass/Vol] 0.5 mg/dL Normal 0.3-1.2 [facility] Comment on above: Performed By: #### C LARA CBCA #### [facility] ([id number]) [address], [address] [place] [address] Calcium [Mass/Vol] 9.4 mg/dL Normal 8.5-10.5 [facility] Comment on above: Performed By: #### C LARA, CBCA #### [facility] ([id number]) [address], [address] [place] [address] Chloride [Moles/Vol] 106 mmol/L Normal 98-109 [facility] Comment on above: Performed By: #### C LARA CBCA #### [facility] ([id number]) [address], [address] [place] [address] CO2 [Moles/Vol] 24 mmol/L Normal 22-32 [facility] Comment on above: Performed By: #### C LARA, CBCA #### [facility] ([id number]) [address], [address] [place] [address] Creatinine [Mass/Vol] 0.78 mg/dL Normal 0.40-1.00 [facility] Comment on above: Result Comment: METH OD TRACEABLE TO IDMS STANDARD Performed By: #### C YENNIFER BERMUDEZ #### [facility] ([id number]) [address], [address] [place] [address] GFR/1.73 sq M.predicted among non-blacks MDRD (S/P/Bld) [Vol rate/Area] 75 mL/min/{1.73_m2} Normal >59 [facility] Comment on above: Result Comment: Reported eGFR is based on the CKD-EPI 2020 equation that does not use a race coefficient. Performed By: #### C YENNIFER BERMUDEZ #### [facility] ([id number]) [address] [address] [place] [address] Glucose [Mass/Vol] 97 mg/dL Normal 65-99 [facility] Comment on above: Performed By: #### C YENNIFER BERMUDEZ #### [facility] ([id number]) [address] [address] [place] [address] Potassium [Moles/Vol] 3.4 mmol/L Low 3.5-5.0 [facility] Comment on above: Performed By: #### C YENNIFER BERMUDEZ #### [facility] ([id number]) [address], [address] [place] [address] Protein [Mass/Vol] 6.2 g/dL Normal 6.0-8.0 [facility] Comment on above: Performed By: #### C YENNIFER BERMUDEZ #### [facility] ([id number]) [address] [address] [place] [address] Sodium [Moles/Vol] 140 mmol/L Normal 134-146 [facility] Comment on above: Performed By: #### C LARA CBCA #### [facility] ([id number]) [address], [address] [place] [address] Urea nitrogen [Mass/Vol] 15 mg/dL Normal 5-27 [facility] Comment on above: Performed By: #### C MP, CBCA #### [facility] ([id number]) [address], [address] [place] [address] C-Reactive Proteinon 024 CRP [Mass/Vol] mg/L Normal 0.0-0.5 [facility] Comment on above: Result Comment: PERF ORMED BY: [place] [address] PATHOLOGIST SAFETY INSTRUCTOR AUSTIN PRETTY M.D. Performed By: #### C UU, CRP, ESR, ADDONUAPLUS #### [address] #### C4, C3 #### [facility] , Complement C3on 03-16-2024 Complement C3 139 mg/dL Normal 82-167 [facility] Comment on above: Result Comment: Perf ormed at: - [facility] [place] [id number] Glass Bender: Guanaco Cui PhD, Phone: [phone] Performed By: #### C UU, CRP, ESR, ADDONUAPLUS #### [address] #### C4, C3 #### [facility] , Complement C4on 03-16-2024 Complement C4 38 mg/dL Normal 12-38 [facility] Comment on above: Result Comment: PERF ORMED BY: [place] [address] PATHOLOGIST SAFETY INSTRUCTOR AUSTIN PRETTY M.D. Performed By: #### C UU, CRP, ESR, ADDONUAPLUS #### [address] #### C4, C3 #### [facility] , Dipstick and Microscopicon 1 05-17-2023 Appearance (U) Cloudy Critically abnormal Clear [facility] Comment on above: Order Comment: Name Collection Type:: Clean-Voided Midstream Performed By: #### C UU, CRP, ESR, ADDONUAPLUS #### [address] #### C4, C3 #### [facility] , Bacteria,Urine 3+ High None Seen [facility] Comment on above: Order Comment: Name Collection Type:: Clean-Voided Midstream Performed By: #### C UU, CRP, ESR, ADDONUAPLUS #### [address] #### C4, C3 #### [facility] , Bilirubin,Urine Negative Normal Negative [facility] Comment on above: Order Comment: Name Collection Type:: Clean-Voided Midstream Performed By: #### C UU, CRP, ESR, ADDONUAPLUS #### [address] #### C4, C3 #### [facility] , Calcium Oxalate Crystals,Urine 3+ Normal [facility] Comment on above: Order Comment: Name Collection Type:: Clean-Voided Midstream Performed By: #### C UU, CRP, ESR, ADDONUAPLUS #### [address] #### C4, C3 #### [facility] , Color (U) Yellow Normal Yellow [facility] Comment on above: Order Comment: Name Collection Type:: Clean-Voided Midstream Performed By: #### C UU, CRP, ESR, ADDONUAPLUS #### [address] #### C4, C3 #### [facility] , Glucose Ql (U) Normal Normal Normal [facility] Comment on above: Order Comment: Name Collection Type:: Clean-Voided Midstream Performed By: #### C UU, CRP, ESR, ADDONUAPLUS #### [address] #### C4, C3 #### [facility] , Hyaline Casts,Urine 9 [LPF] High 0-8 [facility] Comment on above: Order Comment: Name Collection Type:: Clean-Voided Midstream Performed By: #### C UU, CRP, ESR, ADDONUAPLUS #### [address] #### C4, C3 #### [facility] , Ketones Ql (U) Negative Normal Negative [facility] Comment on above: Order Comment: Name Collection Type:: Clean-Voided Midstream Performed By: #### C UU, CRP, ESR, ADDONUAPLUS #### [address] #### C4, C3 #### [facility] , Leukocyte esterase Test strip Ql (U) 4+ High Negative [facility] Comment on above: Order Comment: Name Collection Type:: Clean-Voided Midstream Performed By: #### C UU, CRP, ESR, ADDONUAPLUS #### [address] #### C4, C3 #### [facility] , Mucus,Urine 2+ Critically abnormal [facility] Comment on above: Order Comment: Name Collection Type:: Clean-Voided Midstream Result Comment: PERF ORMED BY: [place] [address] PATHOLOGIST SAFETY INSTRUCTOR AUSTIN PRETTY M.D. Performed By: #### C UU, CRP, ESR, ADDONUAPLUS #### [address] #### C4, C3 #### [facility] , Nitrite,Urine Negative Normal Negative [facility] Comment on above: Order Comment: Name Collection Type:: Clean-Voided Midstream Performed By: #### C UU, CRP, ESR, ADDONUAPLUS #### [address] #### C4, C3 #### [facility] , Non-Squamous Epithelial Cell,U 1 [HPF] High None Seen [facility] Comment on above: Order Comment: Name Collection Type:: Clean-Voided Midstream Performed By: #### C UU, CRP, ESR, ADDONUAPLUS #### [address] #### C4, C3 #### [facility] , Occult Blood,Urine Negative Normal Negative [facility] Comment on above: Order Comment: Name Collection Type:: Clean-Voided Midstream Performed By: #### C UU, CRP, ESR, ADDONUAPLUS #### [address] #### C4, C3 #### [facility] , pH (U) 5.5 [pH] Normal 5.0-9.0 [facility] Comment on above: Order Comment: Name Collection Type:: Clean-Voided Midstream Performed By: #### C UU, CRP, ESR, ADDONUAPLUS #### [address] #### C4, C3 #### [facility] , Protein (U) [Mass/Vol] 20 mg/dL High Negative Th e [facility] Comment on above: Order Comment: Name Collection Type:: Clean-Voided Midstream Performed By: #### C UU, CRP, ESR, ADDONUAPLUS #### [address] #### C4, C3 #### [facility] , RBC,Urine 5 [HPF] High 0-4 [facility] Comment on above: Order Comment: Name Collection Type:: Clean-Voided Midstream Performed By: #### C UU, CRP, ESR, ADDONUAPLUS #### [address] #### C4, C3 #### [facility] , Specificy [place],Urine 1.023 Normal 1.001-1.030 [facility] Comment on above: Order Comment: Name Collection Type:: Clean-Voided Midstream Performed By: #### C UU, CRP, ESR, ADDONUAPLUS #### [address] #### C4, C3 #### [facility] , Squamous Epithelial Cell,Urine 1 [HPF] Normal 0-2 [facility] Comment on above: Order Comment: Name Collection Type:: Clean-Voided Midstream Performed By: #### C UU, CRP, ESR, ADDONUAPLUS #### [address] #### C4, C3 #### [facility] , Urobilinogen,Urine Normal Normal Normal [facility] Comment on above: Order Comment: Name Collection Type:: Clean-Voided Midstream Performed By: #### C UU, CRP, ESR, ADDONUAPLUS #### [address] #### C4, C3 #### [facility] , WBC [place], Urine Many High None Seen [facility] Comment on above: Order Comment: Name Collection Type:: Clean-Voided Midstream Performed By: #### C UU, CRP, ESR, ADDONUAPLUS #### [address] #### C4, C3 #### [facility] , WBC,Urine Innumerable High 0-4 [facility] Comment on above: Order Comment: Name Collection Type:: Clean-Voided Midstream Performed By: #### C UU, CRP, ESR, ADDONUAPLUS #### [facility] [address] [place] [address] #### C4, C3 #### [facility] , Erythrocyte Sedimentation Ra sarah 03-16-2024 ESR (Bld) [Velocity] 15 mm/h Normal 0-29 [facility] Comment on above: Result Comment: PERF ORMED BY: [place] [address] PATHOLOGIST SAFETY INSTRUCTOR AUSTIN PRETTY M.D. Performed By: #### C UU, CRP, ESR, ADDONUAPLUS #### [address] #### C4, C3 #### [facility] , Urine Cultureon 03-16-2024 Bacteria identified Cx Nom (U) Urine Culture Results >100,000 col/ml Mixed Bacterial Skin Contaminants 2 Days PERFORMED BY: [place] [address] PATHOLOGIST SAFETY INSTRUCTOR AUSTIN PRETTY M.D. Normal [facility] Comment on above: Performed By: #### C UU, CRP, ESR, ADDONUAPLUS #### [address] #### C4, C3 #### [facility] , CBC AND AUTO DIFFon 03-01-20 24 ABSOLUTE BASOPHIL 0.1 X10E9/L Normal 0.0-0.2 [facility] Comment on above: Performed By: #### C BCA, CMP #### [facility] ([id number]) [address] [facility] [place] [address] ABSOLUTE NEUTROPHIL 3.3 X10E9/L Normal 1.5-6.6 [facility] Comment on above: Performed By: #### C BCA, CMP #### [facility] ([id number]) [address] [facility] [facility] [place] [address] Basophils/100 WBC (Bld) 2.6 % Normal [facility] Comment on above: Performed By: #### C MALI, CMP #### [facility] ([id number]) [address], [facility] [address] [place] [address] Eosinophils (Bld) [#/Vol] 0.2 10*3/uL Normal 0.0-0.4 [facility] Comment on above: Performed By: #### C MALI, CMP #### [facility] ([id number]) [address] [address] [place] [address] Eosinophils/100 WBC (Bld) 4.1 % Normal [facility] Comment on above: Performed By: #### C MALI, CMP #### [facility] ([id number]) [address] [address] [place] [address] Erythrocyte distribution width (RBC) [Ratio] 13.1 % Normal 11.5-15.0 [facility] Comment on above: Performed By: #### C MALI, CMP #### [facility] ([id number]) [address] [address] [place] [address] Hematocrit (Bld) [Volume fraction] 40.4 % Normal 35-47 [facility] Comment on above: Performed By: #### Ha SAMSON, CMP #### [facility] ([id number]) [address] [address] [place] [address] Hemoglobin (Bld) [Mass/Vol] 13.6 g/dL Normal 11.7-15.5 [facility] Comment on above: Performed By: #### C MALI, CMP #### [facility] ([id number]) [address] [address] [place] [address] Lymphocytes (Bld) [#/Vol] 1.1 10*3/uL Normal 1.0-3.5 [facility] Comment on above: Performed By: #### C BCA, CMP #### [facility] ([id number]) [address], [address] [place] [address] Lymphocytes/100 WBC (Bld) 20.1 % Normal [facility] Comment on above: Performed By: #### C BCA, CMP #### [facility] ([id number]) [address], [address] [place] [address] MCH (RBC) [Entitic mass] 32.1 pg Normal 27-34 [facility] Comment on above: Performed By: #### C BCA, CMP #### [facility] ([id number]) [address], [address] [place] [address] MCHC (RBC) [Mass/Vol] 33.6 g/dL Normal 32-36 [facility] Comment on above: Performed By: #### C BCA, CMP #### [facility] ([id number]) [address], [address] [place] [address] MCV (RBC) [Entitic vol] 96 fL Normal 80-100 [facility] Comment on above: Performed By: #### C BCA, CMP #### [facility] ([id number]) [address], [address] [place] [address] Monocytes (Bld) [#/Vol] 0.7 10*3/uL Normal 0-0.9 [facility] Comment on above: Performed By: #### C BCA, CMP #### [facility] ([id number]) [address], [address] [place] [address] Monocytes/100 WBC (Bld) 12.4 % Normal [facility] Comment on above: Performed By: #### C BCA, CMP #### [facility] ([id number]) [address], [address] [place] [address] Neutrophils/100 WBC (Bld) 60.8 % Normal [facility] Comment on above: Performed By: #### C BCA, CMP #### [facility] ([id number]) [address], [address] [place] [address] Platelet mean volume (Bld) [Entitic vol] 9.8 fL Normal 7-12 [facility] Comment on above: Performed By: #### C BCA, CMP #### [facility] ([id number]) [address] [place] [address] Platelets (Bld) [#/Vol] 279 10*3/uL Normal 150-450 [facility] Comment on above: Performed By: #### C BCA, CMP #### [facility] ([id number]) [address], [address] [place] [address] RBC COUNT 4.22 X10E12/L Normal 3.80-5.20 [facility] Comment on above: Performed By: #### C BCA, CMP #### [facility] ([id number]) [address], [address] [place] [address] WBC (Bld) [#/Vol] 5.4 10*3/uL Normal 4.0-11.0 [facility] Comment on above: Performed By: #### C BCA, CMP #### [facility] ([id number]) [address], [address] [place] [address] COMPREHENSIVE METABOLIC PANE Henry 03-01-2024 Albumin [Mass/Vol] 3.9 g/dL Normal 3.2-5.3 [facility] Comment on above: Performed By: #### C BCA, CMP #### [facility] ([id number]) [address], [address] [place] [address] ALP [Catalytic activity/Vol] 84 U/L Normal 39-130 [facility] Comment on above: Performed By: #### C BCA, CMP #### [facility] ([id number]) [address], [address] [place] [address] ALT [Catalytic activity/Vol] 20 U/L Normal 0-31 [facility] Comment on above: Performed By: #### C BCA, CMP #### [facility] ([id number]) [address], [address] [place] [address] Anion gap [Moles/Vol] 11 mmol/L Normal 5-15 [facility] Comment on above: Performed By: #### C BCA, CMP #### [facility] ([id number]) [address], [address] [place] [address] AST [Catalytic activity/Vol] 33 U/L Normal 0-41 [facility] Comment on above: Performed By: #### C BCA, CMP #### [facility] ([id number]) [address] [place] [address] Bilirubin [Mass/Vol] 0.5 mg/dL Normal 0.3-1.2 [facility] [place] Comment on above: Performed By: #### C BCA, CMP #### [facility] ([id number]) [address], [address] [place] [address] Calcium [Mass/Vol] 9.8 mg/dL Normal 8.5-10.5 [facility] Comment on above: Performed By: #### C BCA, CMP #### [facility] ([id number]) [address] [place] [address] Chloride [Moles/Vol] 105 mmol/L Normal 98-109 [facility] [place] Comment on above: Performed By: #### C BCA, CMP #### [facility] ([id number]) [address] [place] [address] CO2 [Moles/Vol] 27 mmol/L Normal 22-32 [facility] Comment on above: Performed By: #### C BCA, CMP #### [facility] ([id number]) [address] [place] [address] Creatinine [Mass/Vol] 0.88 mg/dL Normal 0.40-1.00 [facility] Comment on above: Result Comment: METH OD TRACEABLE TO IDMS STANDARD Performed By: #### C BCA, CMP #### [facility] ([id number]) [address] [place] [address] GFR/1.73 sq M.predicted among non-blacks MDRD (S/P/Bld) [Vol rate/Area] 65 mL/min/{1.73_m2} Normal >59 [facility] Comment on above: Result Comment: Reported eGFR is based on the CKD-EPI 2020 equation that does not use a race coefficient. Performed By: #### C BCA, CMP #### [facility] ([id number]) [address] [place] [address] Glucose [Mass/Vol] 120 mg/dL High 65-99 [facility] Comment on above: Performed By: #### C BCA, CMP #### [facility] ([id number]) [address] [address] [place] [address] Potassium [Moles/Vol] 3.5 mmol/L Normal 3.5-5.0 [facility] Comment on above: Performed By: #### C BCA, CMP #### [facility] ([id number]) [address] [address] [place] [address] Protein [Mass/Vol] 6.6 g/dL Normal 6.0-8.0 [facility] Comment on above: Performed By: #### C BCA, CMP #### [facility] ([id number]) [address] [address] [place] [address] Sodium [Moles/Vol] 143 mmol/L Normal 134-146 [facility] Comment on above: Performed By: #### C BCA, CMP #### [facility] ([id number]) [address] [place] [address] Urea nitrogen [Mass/Vol] 16 mg/dL Normal 5-27 [facility] Comment on above: Performed By: #### C BCA, CMP #### [facility] ([id number]) [address] [facility] [address] [place] [address] CBC AND AUTO DIFFon 02-09-20 ABSOLUTE BASOPHIL 0.1 X10E9/L Normal 0.0-0.2 [facility] Comment on above: Performed By: #### C BCA, CMP, LIVR, 18939-2 #### [facility] ([id number]) [address], [address] [place] [address] ABSOLUTE NEUTROPHIL 4.7 X10E9/L Normal 1.5-6.6 [facility] [place] Comment on above: Performed By: #### C BCA, CMP, LIVR, 77632-7 #### [facility] ([id number]) [address], [address] [place] [address] Basophils/100 WBC (Bld) 1.3 % Normal [facility] Comment on above: Performed By: #### C BCA, CMP, LIVR, 49544-4 #### [facility] ([id number]) [address], [address] [place] [address] Eosinophils (Bld) [#/Vol] 0.4 10*3/uL Normal 0.0-0.4 [facility] Comment on above: Performed By: #### C BCA, CMP, LIVR, 21786-0 #### [facility] ([id number]) [address], [address] [place] [address] Eosinophils/100 WBC (Bld) 5.4 % Normal [facility] Comment on above: Performed By: #### C BCA, CMP, LIVR, 71388-4 #### [facility] ([id number]) [address] [address] [place] [address] Erythrocyte distribution width (RBC) [Ratio] 13.3 % Normal 11.5-15.0 [facility] Comment on above: Performed By: #### C BCA, CMP, LIVR, 39665-2 #### [facility] ([id number]) [address] [address] [place] [address] Hematocrit (Bld) [Volume fraction] 39.1 % Normal 35-47 [facility] Comment on above: Performed By: #### C BCA, CMP, LIVR, 14141-9 #### [facility] ([id number]) [address] [address] [place] [address] Hemoglobin (Bld) [Mass/Vol] 13.1 g/dL Normal 11.7-15.5 [facility] Comment on above: Performed By: #### C BCA, CMP, LIVR, 51158-5 #### [facility] ([id number]) [address] [address] [place] [address] Lymphocytes (Bld) [#/Vol] 1.2 10*3/uL Normal 1.0-3.5 [facility] Comment on above: Performed By: #### C BCA, CMP, LIVR, 09419-1 #### [facility] ([id number]) [address] [address] [place] [address] Lymphocytes/100 WBC (Bld) 16.5 % Normal [facility] Comment on above: Performed By: #### C BCA, CMP, LIVR, 00438-5 #### [facility] ([id number]) [address] [address] [place] [address] MCH (RBC) [Entitic mass] 32.1 pg Normal 27-34 [facility] Comment on above: Performed By: #### C BCA, CMP, LIVR, 71586-5 #### [facility] ([id number]) [address], [address] [place] [address] MCHC (RBC) [Mass/Vol] 33.4 g/dL Normal 32-36 [facility] Comment on above: Performed By: #### C BCA, CMP, LIVR, 08297-3 #### [facility] ([id number]) [address], [address] [place] [address] MCV (RBC) [Entitic vol] 96 fL Normal 80-100 [facility] Comment on above: Performed By: #### C BCA, CMP, LIVR, 34192-3 #### [facility] ([id number]) [address], [address] [place] [address] Monocytes (Bld) [#/Vol] 0.7 10*3/uL Normal 0-0.9 [facility] Comment on above: Performed By: #### C BCA, CMP, LIVR, 62963-5 #### [facility] ([id number]) [address], [address] [place] [address] Monocytes/100 WBC (Bld) 10.3 % Normal [facility] Comment on above: Performed By: #### C BCA, CMP, LIVR, 77556-2 #### [facility] ([id number]) [address], [address] [place] [address] Neutrophils/100 WBC (Bld) 66.5 % Normal [facility] Comment on above: Performed By: #### C BCA, CMP, LIVR, 94343-1 #### [facility] ([id number]) [address], [address] [place] [address] Platelet mean volume (Bld) [Entitic vol] 9.3 fL Normal 7-12 [facility] Comment on above: Performed By: #### C BCA, CMP, LIVR, 92814-4 #### [facility] ([id number]) [address], [address] [place] [address] Platelets (Bld) [#/Vol] 253 10*3/uL Normal 150-450 [facility] Comment on above: Performed By: #### C BCA, CMP, LIVR, 19605-4 #### [facility] ([id number]) [address], [address] [place] [address] RBC COUNT 4.07 X10E12/L Normal 3.80-5.20 [facility] Comment on above: Performed By: #### C BCA, CMP, LIVR, 97358-6 #### [facility] ([id number]) [address], [address] [place] [address] WBC (Bld) [#/Vol] 7.1 10*3/uL Normal 4.0-11.0 [facility] Comment on above: Performed By: #### C BCA, CMP, LIVR, 54266-1 #### [facility] ([id number]) [address], [address] [place] [address] COMPREHENSIVE METABOLIC PANE Henry 02-09-2024 Albumin [Mass/Vol] 3.7 g/dL Normal 3.2-5.3 [facility] Comment on above: Performed By: #### C BCA, CMP, LIVR, 30148-7 #### [facility] ([id number]) [address], [address] [place] [address] ALP [Catalytic activity/Vol] 77 U/L Normal 39-130 [facility] Comment on above: Performed By: #### C BCA, CMP, LIVR, 26893-5 #### [facility] ([id number]) [address], [address] [place] [address] ALT [Catalytic activity/Vol] 17 U/L Normal 0-31 [facility] Comment on above: Performed By: #### C BCA, CMP, LIVR, 97290-9 #### [facility] ([id number]) [address], [address] [place] [address] Anion gap [Moles/Vol] 12 mmol/L Normal 5-15 [facility] Comment on above: Performed By: #### C BCA, CMP, LIVR, 17978-4 #### [facility] ([id number]) [address], [address] [place] [address] AST [Catalytic activity/Vol] 32 U/L Normal 0-41 [facility] Comment on above: Performed By: #### C BCA, CMP, LIVR, 18876-0 #### [facility] ([id number]) [address], [address] [place] [address] Bilirubin [Mass/Vol] 0.4 mg/dL Normal 0.3-1.2 [facility] Comment on above: Performed By: #### C BCA, CMP, LIVR, 45509-9 #### [facility] ([id number]) [address], [address] [place] [address] Calcium [Mass/Vol] 9.4 mg/dL Normal 8.5-10.5 [facility] Comment on above: Performed By: #### C BCA, CMP, LIVR, 96767-1 #### [facility] ([id number]) [address], [address] [place] [address] Chloride [Moles/Vol] 107 mmol/L Normal 98-109 [facility] Comment on above: Performed By: #### C BCA, CMP, LIVR, 96338-2 #### [facility] ([id number]) [address], [address] [place] [address] CO2 [Moles/Vol] 23 mmol/L Normal 22-32 [facility] Comment on above: Performed By: #### C BCA, CMP, LIVR, 67476-2 #### [facility] ([id number]) [address] [address] [place] [address] Creatinine [Mass/Vol] 0.83 mg/dL Normal 0.40-1.00 [facility] Comment on above: Result Comment: METH OD TRACEABLE TO IDMS STANDARD Performed By: #### C BCA, CMP, LIVR, 69740-5 #### [facility] ([id number]) [address], [facility] [address] [place] [address] GFR/1.73 sq M.predicted among non-blacks MDRD (S/P/Bld) [Vol rate/Area] 70 mL/min/{1.73_m2} Normal >59 [facility] Comment on above: Result Comment: Reported eGFR is based on the CKD-EPI 2020 equation that does not use a race coefficient. Performed By: #### C BCA, CMP, LIVR, 11676-3 #### [facility] ([id number]) [address] [address] [place] [address] Glucose [Mass/Vol] 101 mg/dL High 65-99 [facility] Comment on above: Performed By: #### C BCA, CMP, LIVR, 55913-3 #### [facility] ([id number]) [address] [address] [place] [address] Potassium [Moles/Vol] 3.9 mmol/L Normal 3.5-5.0 [facility] Comment on above: Performed By: #### C BCA, CMP, LIVR, 42102-5 #### [facility] ([id number]) [address] [address] [place] [address] Protein [Mass/Vol] 6.2 g/dL Normal 6.0-8.0 [facility] Comment on above: Performed By: #### C BCA, CMP, LIVR, 21916-3 #### [facility] ([id number]) [address] [address] [place] [address] Sodium [Moles/Vol] 142 mmol/L Normal 134-146 [facility] Comment on above: Performed By: #### C BCA, CMP, LIVR, 82594-3 #### [facility] ([id number]) [address] [address] [place] [address] Urea nitrogen [Mass/Vol] 15 mg/dL Normal 5-27 [facility] Comment on above: Performed By: #### C BCA, CMP, LIVR, 52271-7 #### [facility] ([id number]) [address] [address] [place] [address] ESR Photometric method (Bld) [Velocity]on 02-09-2024 ESR, ERYTHROCYTE SEDIMENTATION RATE 11 mm/h Normal 0-30 [facility] Comment on above: Performed By: #### C BCA, CMP, LIVR, 19870-2 #### [facility] ([id number]) [address] [address] [place] [address] LIVER PANELon 02-09-2024 Bilirubin.direct [Mass/Vol] 0.1 mg/dL Normal 0.0-0.4 [facility] Comment on above: Performed By: #### C BCA, CMP, LIVR, 71786-3 #### [facility] ([id number]) [address] [address] CBC AND AUTO DIFFon 1015-20 24 ABSOLUTE BASOPHIL 0.1 X10E9/L Normal 0.0-0.2 [facility] Comment on above: Performed By: #### C BCA, CMP #### [facility] ([id number]) [address] [address] [place] [address] ABSOLUTE NEUTROPHIL 3.7 X10E9/L Normal 1.5-6.6 [facility] Comment on above: Performed By: #### C BCA, CMP #### [facility] ([id number]) [address] [place] [address] Basophils/100 WBC (Bld) 2.2 % Normal [facility] Comment on above: Performed By: #### C BCA, CMP #### [facility] ([id number]) [address], [address] [place] [address] Eosinophils (Bld) [#/Vol] 0.6 10*3/uL High 0.0-0.4 [facility] Comment on above: Performed By: #### C MALI, CMP #### [facility] ([id number]) [address] [address] [place] [address] Eosinophils/100 WBC (Bld) 10.1 % Normal [facility] Comment on above: Performed By: #### C MALI, CMP #### [facility] ([id number]) [address] [address] [place] [address] Erythrocyte distribution width (RBC) [Ratio] 13.5 % Normal 11.5-15.0 [facility] Comment on above: Performed By: #### C MALI, CMP #### [facility] ([id number]) [address] [address] [place] [address] Hematocrit (Bld) [Volume fraction] 38.7 % Normal 35-47 [facility] Comment on above: Performed By: #### C MALI, CMP #### [facility] ([id number]) [address] [address] [place] [address] Hemoglobin (Bld) [Mass/Vol] 13.3 g/dL Normal 11.7-15.5 [facility] Comment on above: Performed By: #### C BCA, CMP #### [facility] ([id number]) [address] [address] [place] [address] Lymphocytes (Bld) [#/Vol] 1.1 10*3/uL Normal 1.0-3.5 [facility] Comment on above: Performed By: #### C BCA, CMP #### [facility] ([id number]) [address], [address] [place] [address] Lymphocytes/100 WBC (Bld) 17.8 % Normal [facility] Comment on above: Performed By: #### C BCA, CMP #### [facility] ([id number]) [address] [place] [address] MCH (RBC) [Entitic mass] 32.8 pg Normal 27-34 [facility] Comment on above: Performed By: #### C BCA, CMP #### [facility] ([id number]) [address], [address] [place] [address] MCHC (RBC) [Mass/Vol] 34.3 g/dL Normal 32-36 [facility] Comment on above: Performed By: #### C BCA, CMP #### [facility] ([id number]) [address], [address] [place] [address] MCV (RBC) [Entitic vol] 96 fL Normal 80-100 [facility] Comment on above: Performed By: #### C BCA, CMP #### [facility] ([id number]) [address] [place] [address] Monocytes (Bld) [#/Vol] 0.7 10*3/uL Normal 0-0.9 [facility] Comment on above: Performed By: #### C BCA, CMP #### [facility] ([id number]) [address], [address] [place] [address] Monocytes/100 WBC (Bld) 11.0 % Normal [facility] Comment on above: Performed By: #### C BCA, CMP #### [facility] ([id number]) [address], [address] [place] [address] Neutrophils/100 WBC (Bld) 58.9 % Normal [facility] Comment on above: Performed By: #### C BCA, CMP #### [facility] ([id number]) [address], [facility] [address] [place] [address] Platelet mean volume (Bld) [Entitic vol] 9.7 fL Normal 7-12 [facility] Comment on above: Performed By: #### C BCA, CMP #### [facility] ([id number]) [address] [address] [place] [address] Platelets (Bld) [#/Vol] 264 10*3/uL Normal 150-450 [facility] Comment on above: Performed By: #### C BCA, CMP #### [facility] ([id number]) [address] [address] [place] [address] RBC COUNT 4.05 X10E12/L Normal 3.80-5.20 [facility] Comment on above: Performed By: #### C BCA, CMP #### [facility] ([id number]) [address] [address] [place] [address] WBC (Bld) [#/Vol] 6.3 10*3/uL Normal 4.0-11.0 [facility] Comment on above: Performed By: #### C BCA, CMP #### [facility] ([id number]) [address], [address] [place] [address] COMPREHENSIVE METABOLIC PANE Henry 01-19-2024 Albumin [Mass/Vol] 3.6 g/dL Normal 3.2-5.3 [facility] Comment on above: Performed By: #### C BCA, CMP #### [facility] ([id number]) [address] [address] [place] [address] ALP [Catalytic activity/Vol] 89 U/L Normal 39-130 [facility] Comment on above: Performed By: #### C BCA, CMP #### [facility] ([id number]) [address] [place] [address] ALT [Catalytic activity/Vol] 19 U/L Normal 0-31 [facility] Comment on above: Performed By: #### C BCA, CMP #### [facility] ([id number]) [address] [place] [address] Anion gap [Moles/Vol] 9 mmol/L Normal 5-15 [facility] Comment on above: Performed By: #### C BCA, CMP #### [facility] ([id number]) [address] [place] [address] AST [Catalytic activity/Vol] 31 U/L Normal 0-41 [facility] Comment on above: Performed By: #### C BCA, CMP #### [facility] ([id number]) [address] [place] [address] Bilirubin [Mass/Vol] 0.4 mg/dL Normal 0.3-1.2 [facility] Comment on above: Performed By: #### C BCA, CMP #### [facility] ([id number]) [address] [place] [address] Calcium [Mass/Vol] 9.3 mg/dL Normal 8.5-10.5 [facility] Comment on above: Performed By: #### C BCA, CMP #### [facility] ([id number]) [address] [place] [address] Chloride [Moles/Vol] 106 mmol/L Normal 98-109 [facility] Comment on above: Performed By: #### C BCA, CMP #### [facility] ([id number]) [address] [place] [address] CO2 [Moles/Vol] 25 mmol/L Normal 22-32 [facility] Comment on above: Performed By: #### C BCA, CMP #### [facility] ([id number]) [address] [place] [address] Creatinine [Mass/Vol] 0.80 mg/dL Normal 0.40-1.00 [facility] Comment on above: Result Comment: METH OD TRACEABLE TO IDMS STANDARD Performed By: #### C BCA, CMP #### [facility] ([id number]) [address] [place] [address] GFR/1.73 sq M.predicted among non-blacks MDRD (S/P/Bld) [Vol rate/Area] 73 mL/min/{1.73_m2} Normal >59 [facility] Comment on above: Result Comment: Reported eGFR is based on the CKD-EPI 2020 equation that does not use a race coefficient. Performed By: #### C BCA, CMP #### [facility] ([id number]) [address] [place] [address] Glucose [Mass/Vol] 112 mg/dL High 65-99 [facility] Comment on above: Performed By: #### C BCA, CMP #### [facility] ([id number]) [address] [place] [address] Potassium [Moles/Vol] 3.6 mmol/L Normal 3.5-5.0 [facility] Comment on above: Performed By: #### C BCA, CMP #### [facility] ([id number]) [address] [place] [address] Protein [Mass/Vol] 6.2 g/dL Normal 6.0-8.0 [facility] Comment on above: Performed By: #### C BCA, CMP #### [facility] ([id number]) [address], [address] [place] [address] Sodium [Moles/Vol] 140 mmol/L Normal 134-146 [facility] Comment on above: Performed By: #### C BCA, CMP #### [facility] ([id number]) [address] [address] [place] [address] Urea nitrogen [Mass/Vol] 14 mg/dL Normal 5-27 [facility] Comment on above: Performed By: #### C BCA, CMP #### [facility] ([id number]) [address], [facility] [address] [place] [address] CBC AND AUTO DIFFon 12-29-19 ABSOLUTE BASOPHIL 0.2 X10E9/L Normal 0.0-0.2 [facility] Comment on above: Performed By: #### C MP, CBCA #### [facility] ([id number]) [address] [address] [place] [address] ABSOLUTE NEUTROPHIL 4.8 X10E9/L Normal 1.5-6.6 [facility] [place] Comment on above: Performed By: #### C MP, CBCA #### [facility] ([id number]) [address] [address] [place] [address] Basophils/100 WBC (Bld) 2.2 % Normal [facility] Comment on above: Performed By: #### C MP, CBCA #### [facility] ([id number]) [address] [address] [place] [address] Eosinophils (Bld) [#/Vol] 0.4 10*3/uL Normal 0.0-0.4 [facility] Comment on above: Performed By: #### C MP, CBCA #### [facility] ([id number]) [address] [address] [place] [address] Eosinophils/100 WBC (Bld) 5.2 % Normal [facility] Comment on above: Performed By: #### C MP, CBCA #### [facility] ([id number]) [address] [place] [address] Erythrocyte distribution width (RBC) [Ratio] 14.2 % Normal 11.5-15.0 [facility] Comment on above: Performed By: #### C MP, CBCA #### [facility] ([id number]) [address] [place] [address] Hematocrit (Bld) [Volume fraction] 40.3 % Normal 35-47 [facility] Comment on above: Performed By: #### C MP, CBCA #### [facility] ([id number]) [address] [address] [place] [address] Hemoglobin (Bld) [Mass/Vol] 13.7 g/dL Normal 11.7-15.5 [facility] Comment on above: Performed By: #### C MP, CBCA #### [facility] ([id number]) [address] [address] [place] [address] Lymphocytes (Bld) [#/Vol] 1.2 10*3/uL Normal 1.0-3.5 [facility] Comment on above: Performed By: #### C LARA, CBCA #### [facility] ([id number]) [address] [address] [place] [address] Lymphocytes/100 WBC (Bld) 16.3 % Normal [facility] Comment on above: Performed By: #### C MP, CBCA #### [facility] ([id number]) [address] [address] [place] [address] MCH (RBC) [Entitic mass] 32.4 pg Normal 27-34 [facility] Comment on above: Performed By: #### C MP, CBCA #### [facility] ([id number]) [address] [address] [place] [address] MCHC (RBC) [Mass/Vol] 34.0 g/dL Normal 32-36 [facility] Comment on above: Performed By: #### C MP, CBCA #### [facility] ([id number]) [address], [address] [place] [address] MCV (RBC) [Entitic vol] 95 fL Normal 80-100 [facility] Comment on above: Performed By: #### C MP, CBCA #### [facility] ([id number]) [address], [address] [place] [address] Monocytes (Bld) [#/Vol] 0.9 10*3/uL Normal 0-0.9 [facility] Comment on above: Performed By: #### C MP, CBCA #### [facility] ([id number]) [address], [address] [place] [address] Monocytes/100 WBC (Bld) 12.3 % Normal [facility] Comment on above: Performed By: #### C MP, CBCA #### [facility] ([id number]) [address], [address] [place] [address] Neutrophils/100 WBC (Bld) 64.0 % Normal [facility] Comment on above: Performed By: #### C MP, CBCA #### [facility] ([id number]) [address], [address] [place] [address] Platelet mean volume (Bld) [Entitic vol] 10.3 fL Normal 7-12 [facility] Comment on above: Performed By: #### C MP, CBCA #### [facility] ([id number]) [address], [address] [place] [address] Platelets (Bld) [#/Vol] 261 10*3/uL Normal 150-450 [facility] Comment on above: Performed By: #### C MP, CBCA #### [facility] ([id number]) [address], [address] [place] [address] RBC COUNT 4.23 X10E12/L Normal 3.80-5.20 [facility] Comment on above: Performed By: #### C LARA CBCA #### [facility] ([id number]) [address], [address] [place] [address] WBC (Bld) [#/Vol] 7.5 10*3/uL Normal 4.0-11.0 [facility] Comment on above: Performed By: #### C LARA, CBCA #### [facility] ([id number]) [address], [address] [place] [address] COMPREHENSIVE METABOLIC PANE [place] 12-29-2023 Albumin [Mass/Vol] 3.8 g/dL Normal 3.2-5.3 [facility] Comment on above: Performed By: #### C LARA CBCA #### [facility] ([id number]) [address], [address] [place] [address] ALP [Catalytic activity/Vol] 80 U/L Normal 39-130 [facility] Comment on above: Performed By: #### C LARA CBCA #### [facility] ([id number]) [address], [address] [place] [address] ALT [Catalytic activity/Vol] 14 U/L Normal 0-31 [facility] Comment on above: Performed By: #### C LARA CBCA #### [facility] ([id number]) [address], [address] [place] [address] Anion gap [Moles/Vol] 10 mmol/L Normal 5-15 [facility] Comment on above: Performed By: #### C LARA CBCA #### [facility] ([id number]) [address], [address] [place] [address] AST [Catalytic activity/Vol] 35 U/L Normal 0-41 [facility] Comment on above: Performed By: #### C LARA CBCA #### [facility] ([id number]) [address], [address] [place] [address] Bilirubin [Mass/Vol] 0.4 mg/dL Normal 0.3-1.2 [facility] [place] Comment on above: Performed By: #### C YENNIFER BERMUDEZ #### [facility] ([id number]) [address], [address] [place] [address] Calcium [Mass/Vol] 9.4 mg/dL Normal 8.5-10.5 [facility] Comment on above: Performed By: #### C LARA CBCA #### [facility] ([id number]) [address], [address] [place] [address] Chloride [Moles/Vol] 107 mmol/L Normal 98-109 [facility] [place] Comment on above: Performed By: #### C YENNIFER BERMUDEZ #### [facility] ([id number]) [address], [address] [place] [address] CO2 [Moles/Vol] 23 mmol/L Normal 22-32 [facility] Comment on above: Performed By: #### C YENNIFER BERMUDEZ #### [facility] ([id number]) [address], [address] [place] [address] Creatinine [Mass/Vol] 0.83 mg/dL Normal 0.40-1.00 [facility] Comment on above: Result Comment: METH OD TRACEABLE TO IDMS STANDARD Performed By: #### C LARA CBCA #### [facility] ([id number]) [address] [place] [address] GFR/1.73 sq M.predicted among non-blacks MDRD (S/P/Bld) [Vol rate/Area] 70 mL/min/{1.73_m2} Normal >59 [facility] Comment on above: Result Comment: Reported eGFR is based on the CKD-EPI 2020 equation that does not use a race coefficient. Performed By: #### C MP, CBCA #### [facility] ([id number]) [address], [address] [place] [address] Glucose [Mass/Vol] 100 mg/dL High 65-99 [facility] Comment on above: Performed By: #### C LARA, CBCA #### [facility] ([id number]) [address], [address] [place] [address] Potassium [Moles/Vol] 3.8 mmol/L Normal 3.5-5.0 [facility] Comment on above: Performed By: #### C LARA, CBCA #### [facility] ([id number]) [address], [address] [place] [address] Protein [Mass/Vol] 6.5 g/dL Normal 6.0-8.0 [facility] Comment on above: Performed By: #### C LARA CBCA #### [facility] ([id number]) [address], [address] [place] [address] Sodium [Moles/Vol] 140 mmol/L Normal 134-146 [facility] Comment on above: Performed By: #### C LARA, CBCA #### [facility] ([id number]) [address], [address] [place] [address] Urea nitrogen [Mass/Vol] 18 mg/dL Normal 5-27 [facility] Comment on above: Performed By: #### C LARA, CBCA #### [facility] ([id number]) [address], [address] [place] [address] PATHOLOGY REQUEST FOR LAB CO RPon 11-09-2023 PATHOLOGY REQUEST FOR LAB RAY [facility] Comment on above: See report. Scanned copy available in EMR. PATHOLOGY BREAST BIOPSY [facility] Pathology Request for Lab Co rpon 11-03-2023 Pathology Request for Lab Ray Normal [facility] Comment on above: Order Comment: PATHO LOGY BREAST BIOPSY Result Comment: See report. Scanned copy available in EMR. PERFORMED BY: [place] [address] PATHOLOGIST SAFETY INSTRUCTOR TOBIAS SCOTT M.D. Performed By: #### P ATH TO [facility] #### [address] Surgical PathologyOrdered By : Yue Joel on 11-03-2023 [facility] POCT EKGon 04-10-2023 [facility] CULTURE URINEon 03-28-2022 CULTURE URINE Isolate [...] Trimethoprim/Sulfame thoxazole >=320 R F Normal [facility] Comment on above: Performed By: #### C ASA LIVER #### [facility] [address] [place] [address] Dr. Meron Solis CULTURE URINEon 02-10-2022 CULTURE URINE Culture Observations: ERIC TO FOLLOW. Isolate 1 Citrobacter spp. >100,000 cfu/mL of Normal [facility] Comment on above: Performed By: #### C ASA LIVER #### [facility] [address] [place] [address] Dr. Meron Solis UA RANDOM W/MICROSCOPICon BACTERIA MODERATE Abnormal NONE SEEN [facility] Comment on above: Performed By: #### U AMIC #### [facility] [address] [place] [address] Dr. Meron Solis Bilirubin Ql (U) Negative Normal NEGATIVE [facility] Comment on above: Performed By: #### U AMIC #### [facility] [address] [place] [address] Dr. Meron Solis CAST NONE SEEN Normal NONE SEEN [facility] Comment on above: Performed By: #### U AMIC #### [facility] [address] [address] [address] Meron Solis Clarity (U) CLEAR Normal CLEAR [facility] Comment on above: Performed By: #### U AMIC #### [facility] [address] [address] [address] Meron Solis Color (U) YELLOW Normal YELLOW [facility] Comment on above: Performed By: #### U AMIC #### [facility] [address] [address] [address] Meron Solis Crystals LM Nom (Urine sed) NONE SEEN Normal NONE SEEN [facility] Comment on above: Performed By: #### U AMIC #### [facility] [address] [place] [address] Dr. Meron Solis Epithelial cells LM Ql (Urine sed) FEW Abnormal NONE SEEN /RARE [facility] Comment on above: Performed By: #### U AMIC #### [facility] [address] [place] [address] Dr. Meron Solis Glucose Ql (U) Negative Normal NEGATIVE [facility] Comment on above: Performed By: #### U AMIC #### [facility] [address] [place] [address] Dr. Meron Solis Hemoglobin Ql (U) TRACE-INTACT Abnormal NEGATIVE [facility] Comment on above: Performed By: #### U AMIC #### [facility] [address] [address] [address] Meron Solis Ketones Ql (U) Negative Normal NEGATIVE [facility] Comment on above: Performed By: #### U AMIC #### [facility] [address] [address] [address] Meron Solis LEUKOCYTES LARGE Abnormal NEGATIVE [facility] Comment on above: Performed By: #### U AMIC #### [facility] [address] [place] [address] Dr. Meron Solis MUCOUS NONE SEEN Normal NONE SEEN [facility] Comment on above: Performed By: #### U AMIC #### [facility] [address] [address] [address] Meron Solis Nitrite Ql (U) Negative Normal NEGATIVE [facility] Comment on above: Performed By: #### U AMIC #### [facility] [address] [place] [address] Dr. Meron Solis pH (U) 6.0 [pH] Normal 5-9 [facility] Comment on above: Performed By: #### U AMIC #### [facility] [address] [place] [address] Dr. Meron Solis RBC 5-10 Abnormal 0-2 [facility] Comment on above: Performed By: #### U AMIC #### [facility] [address] [place] [address] Dr. Meron Solis SPEC GRAVITY <=1.005 Abnormal 1.005-<=1.02 5 [facility] Comment on above: Performed By: #### U AMIC #### [facility] [address] [address] [address] Meorn Solis UA PROTEIN Negative Normal NEGATIVE/ TRACE [facility] Comment on above: Performed By: #### U AMIC #### [facility] [address] [place] [address] Dr. Meron Solis Urobilinogen Qn (U) 0.2 {Opal'U}/dL Normal 0.2 - 1. 0 [facility] Comment on above: Performed By: #### U AMIC #### [facility] [address] [address] [address] Meron Solis WBC 50-75 Abnormal NONE SEEN [facility] Comment on above: Performed By: #### U AMIC #### [facility] [address] [address] [address] Meron Solis C3 and C4 COMPLEMENTon 01-09 Complement C3, Serum 143 mg/dL Normal 82-167 [facility] Comment on above: Performed By: #### C ASA, LIVER #### [facility] [address] [place] [address] Dr. Meron Solis Complement C4, Serum 44 mg/dL Critically high 12-38 [facility] Comment on above: Performed By: #### C ASA, LIVER #### [facility] [address] [place] [address] Dr. Meron Solis COMPLEMENT TOTAL (CH50)on Complement, Total (CH50) >60 Normal >41 [facility] Comment on above: Result Comment: Age Male [...] values. Performed By: #### S EDR #### [facility] [address] [place] [address] Dr. Meron Solis CRPon 01-08-2022 CRP [Mass/Vol] mg/L Normal <=1.0 [facility] Comment on above: Performed By: #### L IVER, CRP #### [facility] [address] [place] [address] Dr. Meron Solis LIVER PROFILEon 01-08-2022 Albumin [Mass/Vol] 3.6 g/dL Normal 3.4-5.0 [facility] Comment on above: Performed By: #### L IVER, CRP #### [facility] [address] [place] [address] Dr. Meron Solis Albumin/Globulin [Mass ratio] 1.0 {ratio} Normal [facility] Comment on above: Performed By: #### L IVER, CRP #### [facility] [address] [place] [address] Dr. Meron Solis ALP [Catalytic activity/Vol] 127 U/L Critically high 46-116 [facility] Comment on above: Performed By: #### L IVER, CRP #### [facility] [address] [place] [address] Dr. Meron Solis ALT [Catalytic activity/Vol] 29 U/L Normal 14-59 [facility] Comment on above: Performed By: #### L IVER, CRP #### [facility] [address] [address] [address] Meron Solis AST [Catalytic activity/Vol] 30 U/L Normal 15-37 [facility] Comment on above: Performed By: #### L IVER, CRP #### [facility] [address] [address] [address] Meron Solis BILI, CONJUGATED 0.2 mg/dL Normal 0.0-0.2 [facility] Comment on above: Performed By: #### L IVER, CRP #### [facility] [address] [place] [address] Dr. Meron Solis Bilirubin [Mass/Vol] 0.8 mg/dL Normal 0.2-1.0 [facility] Comment on above: Performed By: #### L IVER, CRP #### [facility] [address] [place] [address] Dr. Meron Solis Globulin (S) [Mass/Vol] 3.7 g/dL Normal [facility] Comment on above: Performed By: #### L IVER, CRP #### [facility] [address] [place] [address] Dr. Meron Solis Protein [Mass/Vol] 7.3 g/dL Normal 6.4-8.2 [facility] Comment on above: Performed By: #### L IVER, CRP #### [facility] [address] [place] [address] Dr. Meron Solis SED RATE WESTERGRENon 2021 SED RATE 35 mm/hr Critically high <=30 [facility] Comment on above: Performed By: #### C ASA, LIVER #### [facility] [address] [place] [address] Dr. Meron Solis UA RANDOM W/MICROSCOPICon BACTERIA MODERATE Abnormal NONE SEEN [facility] Comment on above: Performed By: #### S EDR #### [facility] [address] [place] [address] Dr. Meron Solis Bilirubin Ql (U) Negative Normal NEGATIVE [facility] Comment on above: Performed By: #### S EDR #### [facility] [address] [address] [address] Meron Solis CAST NONE SEEN Normal NONE SEEN [facility] Comment on above: Performed By: #### S EDR #### [facility] [address] [address] [address] Meron Solis Clarity (U) CLOUDY Abnormal CLEAR [facility] Comment on above: Performed By: #### S EDR #### [facility] [address] [address] [address] Meron Solis Color (U) LT. YELLOW Normal YELLOW [facility] Comment on above: Performed By: #### S EDR #### [facility] [address] [place] [address] Dr. Meron Solis Crystals LM Nom (Urine sed) NONE SEEN Normal NONE SEEN [facility] Comment on above: Performed By: #### S EDR #### [facility] [address] [address] [address] Meron Solis Epithelial cells LM Ql (Urine sed) FEW Abnormal NONE SEEN /RARE [facility] Comment on above: Performed By: #### S EDR #### [facility] [address] [address] [address] Meron Solis Glucose Ql (U) Negative Normal NEGATIVE [facility] Comment on above: Performed By: #### S EDR #### [facility] [address] [place] [address] Dr. Meron Solis Hemoglobin Ql (U) TRACE-INTACT Abnormal NEGATIVE [facility] Comment on above: Performed By: #### S EDR #### [facility] [address] [address] [address] Meron Solis Ketones Ql (U) Negative Normal NEGATIVE [facility] Comment on above: Performed By: #### S EDR #### [facility] [address] [place] [address] Dr. Meron Solis LEUKOCYTES LARGE Abnormal NEGATIVE [facility] Comment on above: Performed By: #### S EDR #### [facility] [address] [place] [address] Dr. Meron Solis MUCOUS NONE SEEN Normal NONE SEEN [facility] Comment on above: Performed By: #### S EDR #### [facility] [address] [place] [address] Dr. Meron Solis Nitrite Ql (U) Negative Normal NEGATIVE [facility] Comment on above: Performed By: #### S EDR #### [facility] [address] [place] [address] Dr. Meron Solis pH (U) 6.0 [pH] Normal 5-9 [facility] Comment on above: Performed By: #### S EDR #### [facility] [address] [place] [address] Dr. Meron Solis RBC 2-5 Abnormal 0-2 [facility] Comment on above: Performed By: #### S EDR #### [facility] [address] [place] [address] Dr. Meron Solis SPEC GRAVITY 1.010 Normal 1.005-<=1.02 5 [facility] Comment on above: Performed By: #### S EDR #### [facility] [address] [place] [address] Dr. Meron Solis UA PROTEIN Negative Normal NEGATIVE/ TRACE [facility] Comment on above: Performed By: #### S EDR #### [facility] [address] [place] [address] Dr. Meron Solis Urobilinogen Qn (U) 0.2 {Opal'U}/dL Normal 0.2 - 1. 0 [facility] Comment on above: Performed By: #### S EDR #### [facility] [address] [place] [address] Dr. Meron Solis WBC (U) [#/Vol] /uL Abnormal NONE SEEN [facility] Comment on above: Performed By: #### S EDR #### [facility] [address] [place] [address] Dr. Meron Solis CULTURE URINEon 12-15-2021 CULTURE [...] Trimethoprim/Sulfame thoxazole <=20 S F Normal [facility] Comment on above: Performed By: #### C ASA LIVER #### [facility] [address] [place] [address] Dr. Meron Solis CBC AUTO DIFFon 12-10-2021 BASO # 0.1 103/ul Normal 0.0-0.1 [facility] Comment on above: Performed By: #### Ha BRAY LIVER #### [facility] [address] [place] [address] Dr. Meron Solis Basophils/100 WBC (Bld) 0.7 % Normal 0.2-2.0 [facility] Comment on above: Performed By: #### Ha BRAY LIVER #### [facility] [address] [place] [address] Dr. Meron Solis EO # 0.2 103/ul Normal 0.0-0.7 [facility] Comment on above: Performed By: #### Ha BRAY LIVER #### [facility] [address] [place] [address] Dr. Meron Solis Eosinophils/100 WBC (Bld) 2.4 % Normal 0.9-7.0 [facility] Comment on above: Performed By: #### Ha BRAY LIVER #### [facility] [address] [place] [address] Dr. Meron Solis Erythrocyte distribution width (RBC) [Ratio] 15.3 % Critically high 11.0-15.0 [facility] Comment on above: Performed By: #### Ha BRAY, LIVER #### [facility] [address] [place] [address] Dr. Meron Solis Hematocrit (Bld) [Volume fraction] 45.6 % Normal 36.0-48.0 [facility] Comment on above: Performed By: #### C ASA, LIVER #### [facility] [address] [place] [address] Dr. Meron Solis Hemoglobin (Bld) [Mass/Vol] 15.3 g/dL Normal 12.0-16.0 [facility] Comment on above: Performed By: #### C ASA, LIVER #### [facility] [address] [place] [address] Dr. Meron Solis IG # 0.03 10e3/ul Normal 0.00-0.03 [facility] Comment on above: Performed By: #### C ASA, LIVER #### [facility] [address] [place] [address] Dr. Meron Solis IG % 0.3 % Normal 0.0-0.5 [facility] Comment on above: Performed By: #### C ASA, LIVER #### [facility] [address] [place] [address] Dr. Meron Solis LYMPH # 1.6 103/ul Normal 1.2-3.8 [facility] Comment on above: Performed By: #### C ASA, LIVER #### [facility] [address] [place] [address] Dr. Meron Solis Lymphocytes/100 WBC (Bld) 17.0 % Critically low 20.5-60.0 [facility] Comment on above: Performed By: #### C ASA, LIVER #### [facility] [address] [place] [address] Dr. Meron Solis MANUAL DIFF REQ NO Normal [facility] Comment on above: Performed By: #### C ASA, LIVER #### [facility] [address] [place] [address] Dr. Meron Solis MCH (RBC) [Entitic mass] 31.4 pg Normal 26.7-34.0 [facility] Comment on above: Performed By: #### C ASA, LIVER #### [facility] [address] [address] [address] Meron Solis MCHC (RBC) [Mass/Vol] 33.6 g/dL Normal 29.9-35.2 [facility] Comment on above: Performed By: #### C ASA, LIVER #### [facility] [address] [place] [address] Dr. Meron Solis MCV (RBC) [Entitic vol] 93.6 fL Normal 81.0-99.0 [facility] Comment on above: Performed By: #### C ASA, LIVER #### [facility] [address] [place] [address] Dr. Meron Solis MONO # 1.0 103/ul Critically high 0.3-0.8 [facility] Comment on above: Performed By: #### C ASA, LIVER #### [facility] [address] [place] [address] Dr. Meron Solis Monocytes/100 WBC (Bld) 10.9 % Normal 1.7-12.0 [facility] Comment on above: Performed By: #### C ASA, LIVER #### [facility] [address] [place] [address] Dr. Meron Solis NEUT # 6.3 103/ul Normal 1.4-6.5 [facility] Comment on above: Performed By: #### C ASA, LIVER #### [facility] [address] [place] [address] Dr. Meron Solis Neutrophils/100 WBC (Bld) 68.7 % Normal 43.0-75.0 [facility] Comment on above: Performed By: #### C AAS, LIVER #### [facility] [address] [place] [address] Dr. Meron Solis Platelet mean volume (Bld) [Entitic vol] 10.9 fL Normal 9.5-13.5 [facility] Comment on above: Performed By: #### C ASA, LIVER #### [facility] [address] [place] [address] Dr. Meron Solis PLT 300 103/ul Normal 150-450 [facility] Comment on above: Performed By: #### C ASA, LIVER #### [facility] [address] [place] [address] Dr. Meron Solis RBC 4.87 106/ul Normal 4.20-5.40 [facility] Comment on above: Performed By: #### C ASA, LIVER #### [facility] [address] [place] [address] Dr. Meron Solis WBC 9.2 103/ul Normal 4.0-11.0 [facility] Comment on above: Performed By: #### C ASA, LIVER #### [facility] [address] [place] [address] Dr. Meron Solis CREATININEon 12-10-2021 Creatinine [Mass/Vol] 0.96 mg/dL Normal 0.55-1.02 [facility] Comment on above: Performed By: #### C ASA, LIVER #### [facility] [address] [place] [address] Dr. Meron Solis EGFR-AF [place] >60 Normal >=60 [facility] Comment on above: Performed By: #### C ASA, LIVER #### [facility] [address] [place] [address] Dr. Meron Solis EGFR-NON AF [place] 56 mL/min/1.73m2 Critically low >=60 [facility] Comment on above: Performed By: #### C ASA, LIVER #### [facility] [address] [place] [address] Dr. Meron Solis LIVER PROFILEon 12-10-2021 Albumin [Mass/Vol] 3.4 g/dL Normal 3.4-5.0 [facility] Comment on above: Performed By: #### C ASA, LIVER #### [facility] [address] [place] [address] Dr. Meron Solis Albumin/Globulin [Mass ratio] 0.9 {ratio} Normal [facility] Comment on above: Performed By: #### C ASA, LIVER #### [facility] [address] [place] [address] Dr. Meron Solis ALP [Catalytic activity/Vol] 149 U/L Critically high 46-116 [facility] Comment on above: Performed By: #### C ASA, LIVER #### [facility] [address] [place] [address] Dr. Meron Solis ALT [Catalytic activity/Vol] 36 U/L Normal 14-59 [facility] Comment on above: Performed By: #### C ASA, LIVER #### [facility] [address] [place] [address] Dr. Meron Solis AST [Catalytic activity/Vol] 40 U/L Critically high 15-37 [facility] Comment on above: Performed By: #### C ASA, LIVER #### [facility] [address] [place] [address] Dr. Meron Solis BILI, CONJUGATED 0.2 mg/dL Normal 0.0-0.2 [facility] Comment on above: Performed By: #### C ASA, LIVER #### [facility] [address] [place] [address] Dr. Meron Solis Bilirubin [Mass/Vol] 0.5 mg/dL Normal 0.2-1.0 [facility] Comment on above: Performed By: #### C ASA, LIVER #### [facility] [address] [place] [address] Dr. Meron Solis Globulin (S) [Mass/Vol] 3.7 g/dL Normal [facility] Comment on above: Performed By: #### C ASA, LIVER #### [facility] [address] [place] [address] Dr. Meron Solis Protein [Mass/Vol] 7.1 g/dL Normal 6.4-8.2 [facility] Comment on above: Performed By: #### C ASA, LIVER #### [facility] [address] [place] [address] Dr. Meron Solis SED RATE [facility] 2021 SED RATE 20 mm/hr Normal <=30 [facility] Comment on above: Performed By: #### S EDR #### [facility] Laboratory [address] [place] [address] Dr. Meron Solis CBC AUTO DIFFon 11-25-2021 BASO # 0.1 103/ul Normal 0.0-0.1 [facility] Comment on above: Performed By: #### C ASA, LIVER #### [facility] [address] [address] [address] Meron Solis Basophils/100 WBC (Bld) 1.1 % Normal 0.2-2.0 [facility] Comment on above: Performed By: #### C ASA, LIVER #### [facility] [address] [address] [address] Meron Solis EO # 0.2 103/ul Normal 0.0-0.7 [facility] Comment on above: Performed By: #### C ASA, LIVER #### [facility] [address] [place] [address] Dr. Meron Solis Eosinophils/100 WBC (Bld) 2.4 % Normal 0.9-7.0 [facility] Comment on above: Performed By: #### C ASA, LIVER #### [facility] [address] [address] [address] Meron Solis Erythrocyte distribution width (RBC) [Ratio] 15.1 % Critically high 11.0-15.0 [facility] Comment on above: Performed By: #### C ASA, LIVER #### [facility] [address] [place] [address] Dr. Meron Solis Hematocrit (Bld) [Volume fraction] 48.0 % Normal 36.0-48.0 [facility] Comment on above: Performed By: #### C ASA, LIVER #### [facility] [address] [place] [address] Dr. Meron Solis Hemoglobin (Bld) [Mass/Vol] 15.5 g/dL Normal 12.0-16.0 [facility] Comment on above: Performed By: #### C ASA, LIVER #### [facility] [address] [place] [address] Dr. Meron Solis IG # 0.03 10e3/ul Normal 0.00-0.03 [facility] Comment on above: Performed By: #### C ASA, LIVER #### [facility] [address] [address] [address] Meron Solis IG % 0.3 % Normal 0.0-0.5 [facility] Comment on above: Performed By: #### C ASA, LIVER #### [facility] [address] [address] [address] Meron Solis LYMPH # 1.7 103/ul Normal 1.2-3.8 [facility] Comment on above: Performed By: #### C ASA, LIVER #### [facility] [address] [address] [address] Meron Solis Lymphocytes/100 WBC (Bld) 18.3 % Critically low 20.5-60.0 [facility] Comment on above: Performed By: #### C ASA, LIVER #### [facility] [address] [address] [address] Meron Solis MANUAL DIFF REQ NO Normal [facility] Comment on above: Performed By: #### C ASA, LIVER #### [facility] [address] [address] [address] Meron Solis MCH (RBC) [Entitic mass] 30.7 pg Normal 26.7-34.0 [facility] Comment on above: Performed By: #### C ASA, LIVER #### [facility] [address] [address] [address] Meron Solis MCHC (RBC) [Mass/Vol] 32.3 g/dL Normal 29.9-35.2 [facility] Comment on above: Performed By: #### C ASA, LIVER #### [facility] [address] [address] [address] Meron Solis MCV (RBC) [Entitic vol] 95.0 fL Normal 81.0-99.0 [facility] Comment on above: Performed By: #### C ASA, LIVER #### [facility] [address] [address] [address] Meron Solis MONO # 1.0 103/ul Critically high 0.3-0.8 [facility] Comment on above: Performed By: #### C ASA, LIVER #### [facility] [address] [place] [address] Dr. Meron Solis Monocytes/100 WBC (Bld) 10.4 % Normal 1.7-12.0 [facility] Comment on above: Performed By: #### C ASA, LIVER #### [facility] [address] [place] [address] Dr. Meron Solis NEUT # 6.2 103/ul Normal 1.4-6.5 [facility] Comment on above: Performed By: #### C ASA, LIVER #### [facility] [address] [place] [address] Dr. Meron Solis Neutrophils/100 WBC (Bld) 67.5 % Normal 43.0-75.0 [facility] Comment on above: Performed By: #### C ASA, LIVER #### [facility] [address] [place] [address] Dr. Meron Solis Platelet mean volume (Bld) [Entitic vol] 10.8 fL Normal 9.5-13.5 [facility] Comment on above: Performed By: #### C ASA, LIVER #### [facility] [address] [place] [address] Dr. Meron Solis PLT 295 103/ul Normal 150-450 [facility] Comment on above: Performed By: #### C ASA, LIVER #### [facility] [address] [place] [address] Dr. Meron Solis RBC 5.05 106/ul Normal 4.20-5.40 [facility] Comment on above: Performed By: #### C ASA, LIVER #### [facility] [address] [place] [address] Dr. Meron Solis WBC 9.2 103/ul Normal 4.0-11.0 [facility] Comment on above: Performed By: #### C ASA, LIVER #### [facility] [address] [place] [address] Dr. Meron Solis CREATININEon 11-25-2021 Creatinine [Mass/Vol] 1.03 mg/dL Critically high 0.55-1.02 [facility] Comment on above: Performed By: #### S EDR #### [facility] [address] [place] [address] Dr. Meron Solis EGFR-AF [place] 39 mL/min/1.73m2 Critically low >=60 [facility] Comment on above: Performed By: #### S EDR #### [facility] [address] [address] [address] Meron Solis EGFR-NON AF [place] 32 mL/min/1.73m2 Critically low >=60 [facility] Comment on above: Performed By: #### S EDR #### [facility] [address] [place] [address] Dr. Meron Solis LIVER PROFILEon 11-25-2021 Albumin [Mass/Vol] 3.5 g/dL Normal 3.4-5.0 [facility] Comment on above: Performed By: #### S EDR #### [facility] [address] [place] [address] Dr. Meron Solis Albumin/Globulin [Mass ratio] 1.0 {ratio} Normal [facility] Comment on above: Performed By: #### S EDR #### [facility] [address] [place] [address] Dr. Meron Solis ALP [Catalytic activity/Vol] 135 U/L Critically high 46-116 [facility] Comment on above: Performed By: #### S EDR #### [facility] [address] [place] [address] Dr. Meron Solis ALT [Catalytic activity/Vol] 41 U/L Normal 14-59 [facility] Comment on above: Performed By: #### S EDR #### [facility] [address] [place] [address] Dr. Meron Solis AST [Catalytic activity/Vol] 39 U/L Critically high 15-37 [facility] Comment on above: Performed By: #### S EDR #### [facility] [address] [place] [address] Dr. Meron Solis BILI, CONJUGATED 0.1 mg/dL Normal 0.0-0.2 [facility] Comment on above: Performed By: #### S EDR #### [facility] [address] [place] [address] Dr. Meron Solis Bilirubin [Mass/Vol] 0.5 mg/dL Normal 0.2-1.0 [facility] Comment on above: Performed By: #### S EDR #### [facility] [address] [place] [address] Dr. Meron Solis Globulin (S) [Mass/Vol] 3.5 g/dL Normal [facility] Comment on above: Performed By: #### S EDR #### [facility] [address] [place] [address] Dr. Meron Solis Protein [Mass/Vol] 7.0 g/dL Normal 6.4-8.2 [facility] Comment on above: Performed By: #### S EDR #### [facility] [address] [place] [address] Dr. Meron Solis SED RATE WESTBANNERRENon 2021 SED RATE 11 mm/hr Normal <=30 [facility] Comment on above: Performed By: #### S EDR #### [facility] [address] [place] [address] Dr. Meron Solis CBC AUTO DIFFon 11-13-2021 BASO # 0.1 103/ul Normal 0.0-0.1 [facility] Comment on above: Performed By: #### C BC #### [facility] [address] [place] [address] Dr. Meron Solis Basophils/100 WBC (Bld) 0.8 % Normal 0.2-2.0 [facility] Comment on above: Performed By: #### C BC #### [facility] [address] [place] [address] Dr. Meron Solis EO # 0.2 103/ul Normal 0.0-0.7 [facility] Comment on above: Performed By: #### C BC #### [facility] [address] [place] [address] Dr. Meron Solis Eosinophils/100 WBC (Bld) 1.9 % Normal 0.9-7.0 [facility] Comment on above: Performed By: #### C BC #### [facility] [address] [place] [address] Dr. Meron Solis Erythrocyte distribution width (RBC) [Ratio] 14.4 % Normal 11.0-15.0 [facility] Comment on above: Performed By: #### C BC #### [facility] [address] [place] [address] Dr. Meron Solis Hematocrit (Bld) [Volume fraction] 48.9 % Critically high 36.0-48.0 [facility] Comment on above: Performed By: #### C BC #### [facility] [address] [place] [address] Dr. Meron Solis Hemoglobin (Bld) [Mass/Vol] 16.0 g/dL Normal 12.0-16.0 [facility] Comment on above: Performed By: #### C BC #### [facility] [address] [place] [address] Dr. Meron Solis IG # 0.03 10e3/ul Normal 0.00-0.03 [facility] Comment on above: Performed By: #### C BC #### [facility] [address] [place] [address] Dr. Meron Solis IG % 0.3 % Normal 0.0-0.5 [facility] Comment on above: Performed By: #### C BC #### [facility] [address] [place] [address] Dr. Meron Solis LYMPH # 2.5 103/ul Normal 1.2-3.8 [facility] Comment on above: Performed By: #### C BC #### [facility] [address] [place] [address] Dr. Meron Solis Lymphocytes/100 WBC (Bld) 24.8 % Normal 20.5-60.0 [facility] Comment on above: Performed By: #### C BC #### [facility] [address] [place] [address] Dr. Meron Solis MANUAL DIFF REQ NO Normal [facility] Comment on above: Performed By: #### C BC #### [facility] [address] [place] [address] Dr. Meron Solis MCH (RBC) [Entitic mass] 30.9 pg Normal 26.7-34.0 [facility] Comment on above: Performed By: #### C BC #### [facility] [address] [place] [address] Dr. Meron Solis MCHC (RBC) [Mass/Vol] 32.7 g/dL Normal 29.9-35.2 [facility] Comment on above: Performed By: #### C BC #### [facility] [address] [place] [address] Dr. Meron Solis MCV (RBC) [Entitic vol] 94.4 fL Normal 81.0-99.0 [facility] Comment on above: Performed By: #### C BC #### [facility] [address] [place] [address] Dr. Meron Solis MONO # 0.8 103/ul Normal 0.3-0.8 [facility] Comment on above: Performed By: #### C BC #### [facility] [address] [place] [address] Dr. Meron Solis Monocytes/100 WBC (Bld) 7.7 % Normal 1.7-12.0 [facility] Comment on above: Performed By: #### C BC #### [facility] [address] [place] [address] Dr. Meron Solis NEUT # 6.4 103/ul Normal 1.4-6.5 [facility] Comment on above: Performed By: #### C BC #### [facility] [address] [place] [address] Dr. Meron Solis Neutrophils/100 WBC (Bld) 64.5 % Normal 43.0-75.0 [facility] Comment on above: Performed By: #### C BC #### [facility] [address] [place] [address] Dr. Meron Solis Platelet mean volume (Bld) [Entitic vol] 11.1 fL Normal 9.5-13.5 [facility] Comment on above: Performed By: #### C BC #### [facility] [address] [place] [address] Dr. Meron Solis PLT 306 103/ul Normal 150-450 [facility] Comment on above: Performed By: #### C BC #### [facility] [address] [place] [address] Dr. Meron Solis RBC 5.18 106/ul Normal 4.20-5.40 [facility] Comment on above: Performed By: #### C BC #### [facility] [address] [place] [address] Dr. Meron Solis WBC 9.9 103/ul Normal 4.0-11.0 [facility] Comment on above: Performed By: #### C BC #### [facility] [address] [place] [address] Dr. Meron Solis CREATININEon 11-13-2021 Creatinine [Mass/Vol] 1.01 mg/dL Normal 0.55-1.02 [facility] Comment on above: Performed By: #### C ASA LIVER #### [facility] [address] [place] [address] Dr. Meron Solis EGFR-AF [place] >60 Normal >=60 [facility] Comment on above: Performed By: #### C ASA LIVER #### [facility] [address] [place] [address] Dr. Meron Solis EGFR-NON AF [place] 53 mL/min/1.73m2 Critically low >=60 [facility] Comment on above: Performed By: #### C ASA LIVER #### [facility] [address] [place] [address] Dr. Meron Solis LIVER PROFILEon 11-13-2021 Albumin [Mass/Vol] 3.4 g/dL Normal 3.4-5.0 [facility] Comment on above: Performed By: #### S EDR #### [facility] [address] [place] [address] Dr. Meron Solis Albumin/Globulin [Mass ratio] 0.9 {ratio} Normal [facility] Comment on above: Performed By: #### S EDR #### [facility] [address] [address] [address] Meron Solis ALP [Catalytic activity/Vol] 126 U/L Critically high 46-116 [facility] Comment on above: Performed By: #### S EDR #### [facility] [address] [address] [address] Meron Solis ALT [Catalytic activity/Vol] 58 U/L Normal 14-59 [facility] Comment on above: Performed By: #### S EDR #### [facility] [address] [address] [address] Meron Solis AST [Catalytic activity/Vol] 55 U/L Critically high 15-37 [facility] Comment on above: Performed By: #### S EDR #### [facility] [address] [address] [address] Meron Solis BILI, CONJUGATED 0.1 mg/dL Normal 0.0-0.2 [facility] Comment on above: Performed By: #### S EDR #### [facility] [address] [address] [address] Meron Solis Bilirubin [Mass/Vol] 0.5 mg/dL Normal 0.2-1.0 [facility] Comment on above: Performed By: #### S EDR #### [facility] [address] [address] [address] Meron Solis Globulin (S) [Mass/Vol] 3.6 g/dL Normal [facility] Comment on above: Performed By: #### S EDR #### [facility] [address] [address] [address] Meron Solis Protein [Mass/Vol] 7.0 g/dL Normal 6.4-8.2 [facility] Comment on above: Performed By: #### S EDR #### [facility] [address] [address] [address] Meron Solis [facility] 2021 SED RATE 13 mm/hr Normal <=30 [facility] Comment on above: Performed By: #### S EDR #### [facility] [address] [place] [address] Dr. Meron Solis CBC AUTO DIFFon 10-28-2021 BASO # 0.1 103/ul Normal 0.0-0.1 [facility] Comment on above: Performed By: #### C BC #### [facility] [address] [place] [address] Dr. Meron Solis Basophils/100 WBC (Bld) 1.1 % Normal 0.2-2.0 [facility] Comment on above: Performed By: #### C BC #### [facility] [address] [place] [address] Dr. Meron Solis EO # 0.2 103/ul Normal 0.0-0.7 [facility] Comment on above: Performed By: #### C BC #### [facility] [address] [place] [address] Dr. Meron Solis Eosinophils/100 WBC (Bld) 2.3 % Normal 0.9-7.0 [facility] Comment on above: Performed By: #### C BC #### [facility] [address] [place] [address] Dr. Meron Solis Erythrocyte distribution width (RBC) [Ratio] 13.8 % Normal 11.0-15.0 [facility] Comment on above: Performed By: #### C BC #### [facility] [address] [place] [address] Dr. Meron Solis Hematocrit (Bld) [Volume fraction] 46.7 % Normal 36.0-48.0 [facility] Comment on above: Performed By: #### C BC #### [facility] [address] [place] [address] Dr. Meron Solis Hemoglobin (Bld) [Mass/Vol] 15.1 g/dL Normal 12.0-16.0 [facility] Comment on above: Performed By: #### C BC #### [facility] [address] [place] [address] Dr. Meron Solis IG # 0.04 10e3/ul Critically high 0.00-0.03 [facility] Comment on above: Performed By: #### C BC #### [facility] [address] [place] [address] Dr. Meron Solis IG % 0.4 % Normal 0.0-0.5 [facility] Comment on above: Performed By: #### C BC #### [facility] [address] [place] [address] Dr. Meron Solis LYMPH # 1.8 103/ul Normal 1.2-3.8 [facility] Comment on above: Performed By: #### C BC #### [facility] [address] [place] [address] Dr. Meron Solis Lymphocytes/100 WBC (Bld) 18.7 % Critically low 20.5-60.0 [facility] Comment on above: Performed By: #### C BC #### [facility] [address] [place] [address] Dr. Meron Solis MANUAL DIFF REQ NO Normal [facility] Comment on above: Performed By: #### C BC #### [facility] [address] [place] [address] Dr. Meron Solis MCH (RBC) [Entitic mass] 30.5 pg Normal 26.7-34.0 [facility] Comment on above: Performed By: #### C BC #### [facility] [address] [place] [address] Dr. Meron Solis MCHC (RBC) [Mass/Vol] 32.3 g/dL Normal 29.9-35.2 [facility] Comment on above: Performed By: #### C BC #### [facility] [address] [place] [address] Dr. Meron Solis MCV (RBC) [Entitic vol] 94.3 fL Normal 81.0-99.0 [facility] Comment on above: Performed By: #### C BC #### [facility] [address] [place] [address] Dr. Meron Solis MONO # 1.1 103/ul Critically high 0.3-0.8 [facility] Comment on above: Performed By: #### C BC #### [facility] [address] [place] [address] Dr. Meron Solis Monocytes/100 WBC (Bld) 11.0 % Normal 1.7-12.0 [facility] Comment on above: Performed By: #### C BC #### [facility] [address] [place] [address] Dr. Meron Solis NEUT # 6.4 103/ul Normal 1.4-6.5 [facility] Comment on above: Performed By: #### C BC #### [facility] [address] [place] [address] Dr. Meron Solis Neutrophils/100 WBC (Bld) 66.5 % Normal 43.0-75.0 [facility] Comment on above: Performed By: #### C BC #### [facility] [address] [place] [address] Dr. Meron Solis Platelet mean volume (Bld) [Entitic vol] 11.1 fL Normal 9.5-13.5 [facility] Comment on above: Performed By: #### C BC #### [facility] [address] [place] [address] Dr. Meron Solis PLT 249 103/ul Normal 150-450 [facility] Comment on above: Performed By: #### C BC #### [facility] [address] [place] [address] Dr. Meron oSlis RBC 4.95 106/ul Normal 4.20-5.40 [facility] Comment on above: Performed By: #### C BC #### [facility] [address] [place] [address] Dr. Meron Solis WBC 9.7 103/ul Normal 4.0-11.0 [facility] Comment on above: Performed By: #### C BC #### [facility] [address] [place] [address] Dr. Meron Solis CREATININEon 10-28-2021 Creatinine [Mass/Vol] 0.98 mg/dL Normal 0.55-1.02 [facility] Comment on above: Performed By: #### C ASA, LIVER #### [facility] [address] [place] [address] Dr. Meorn Solis EGFR-AF [place] >60 Normal >=60 [facility] Comment on above: Performed By: #### C ASA, LIVER #### [facility] [address] [place] [address] Dr. Meron Solis EGFR-NON AF [place] 54 mL/min/1.73m2 Critically low >=60 [facility] Comment on above: Performed By: #### C ASA, LIVER #### [facility] [address] [place] [address] Dr. Meron Solis LIVER PROFILEon 10-28-2021 Albumin [Mass/Vol] 3.3 g/dL Critically low 3.4-5.0 [facility] Comment on above: Performed By: #### C ASA, LIVER #### [facility] [address] [place] [address] Dr. Meron Solis Albumin/Globulin [Mass ratio] 0.9 {ratio} Normal [facility] Comment on above: Performed By: #### C ASA, LIVER #### [facility] [address] [place] [address] Dr. Meron Solis ALP [Catalytic activity/Vol] 127 U/L Critically high 46-116 [facility] Comment on above: Performed By: #### C ASA, LIVER #### [facility] [address] [place] [address] Dr. Meron Solis ALT [Catalytic activity/Vol] 38 U/L Normal 14-59 [facility] Comment on above: Performed By: #### C ASA, LIVER #### [facility] [address] [place] [address] Dr. Meron Solis AST [Catalytic activity/Vol] 33 U/L Normal 15-37 [facility] Comment on above: Performed By: #### C ASA, LIVER #### [facility] [address] [place] [address] Dr. Meron Solis BILI, CONJUGATED 0.1 mg/dL Normal 0.0-0.2 [facility] Comment on above: Performed By: #### C ASA, LIVER #### [facility] [address] [place] [address] Dr. Meron Solis Bilirubin [Mass/Vol] 0.3 mg/dL Normal 0.2-1.0 [facility] Comment on above: Performed By: #### C ASA, LIVER #### [facility] [address] [place] [address] Dr. Meron Solis Globulin (S) [Mass/Vol] 3.7 g/dL Normal [facility] Comment on above: Performed By: #### C ASA, LIVER #### [facility] [address] [place] [address] Dr. Meron Solis Protein [Mass/Vol] 7.0 g/dL Normal 6.4-8.2 [facility] Comment on above: Performed By: #### C ASA, LIVER #### [facility] [address] [place] [address] Dr. Meron Solis [facility] 8 mm/hr Normal <=30 [facility] Comment on above: Performed By: #### S EDR #### [facility] [address] [place] [address] Dr. Meron Solis No Panel InformationOrdered By: Jan Solares on 10-09-2021 Hepatitis B Core Total Antibody Negative Negative [facility] [facility] Comment on above: Performed at: [address] [id number] Glass Bender: Guanaco Cui PhD, Phone: [phone] Q - CULTURE,URINE,ROUTINEon 05-07-2021 CULTURE, URINE, ROUTINE SEE NOTE Normal [facility] Software Security Consultant Comment on above: Order Comment: [facility] Testing performed at: QPT, [facility], [address] [place] [address], [address] [place] [address], [id number], Qa Test Analyst: Harsh Hopkins MD [facility] Collection Date/Time: [id number] [facility] Results Received Date/Time: [facility] Reported Date/Time: Result Comment: CULT URE, URINE, ROUTINE Micro Number: [id number] Test Status: Final Specimen Source: Urine Specimen Quality: Adequate Result: No Growth Performed By: #### [id number] #### [facility] Default [address] [place] [address] Vital Signs Date Time Vital Sign Value Performing Clinician Facility 12-14-2024 10:28-0400 Body height 147.3 cm Pfo 3 [facility] 12-14-2024 10:28-0400 Body mass index (BMI) [Ratio] 20.07 kg/m2 Pfo 3 [facility] 12-14-2024 10:28-0400 Body temperature 98.49 [degF] Pfo 3 [facility] 12-14-2024 10:28-0400 Body weight 43.55 kg Pfo 3 [facility] 12-14-2024 10:28-0400 Diastolic blood pressure 75 mm[Hg] Pfo 3 [facility] 12-14-2024 10:28-0400 Heart rate 58 /min Pfo 3 [facility] 12-14-2024 10:28-0400 Respiratory rate 16 /min Pfo 3 [facility] 12-14-2024 10:28-0400 SaO2% (BldA) [Mass fraction] 98 % Pfo 3 [facility] 12-14-2024 10:28-0400 Systolic blood pressure 135 mm[Hg] Pfo 3 [facility] 12-12-2024 11:020400 Body height 154.94 cm Boone Ewing MD Work Phone: [facility] 12-12-2024 11:02-0400 Body mass index (BMI) [Ratio] 17.9 kg/m2 Boone Ewing MD Work Phone: [facility] 12-12-2024 11:02-0400 Body temperature 97.5 [degF] Boone Ewing MD Work Phone: [facility] 12-12-2024 11:02-0400 Body weight 43.2 kg Boone Ewing MD Work Phone: [facility] 12-12-2024 11:02-0400 Diastolic blood pressure 80 mm[Hg] Boone Ewing MD Work Phone: [facility] 12-12-2024 11:02-0400 Heart rate 54 /min Boone Ewing MD Work Phone: [facility] 12-12-2024 11:02-0400 Respiratory rate 20 /min Boone Ewing MD Work Phone: [facility] 12-12-2024 11:02-0400 SaO2% (BldA) [Mass fraction] 97 % Boone Ewing MD Work Phone: [facility] 12-12-2024 11:02-0400 Systolic blood pressure 130 mm[Hg] Boone Ewing MD Work Phone: [facility] 11-16-2024 10:33-0400 Heart rate 62 /min Pfo 3 [facility] 11-16-2024 10:29-0400 Body height 147.3 cm Pfo 3 [facility] 11-16-2024 10:29-0400 Body mass index (BMI) [Ratio] 20.24 kg/m2 Pfo 3 [facility] 11-16-2024 10:29-0400 Body temperature 97.9 [degF] Pfo 3 [facility] 11-16-2024 10:29-0400 Body weight 43.91 kg Pfo 3 [facility] 11-16-2024 10:29-0400 Diastolic blood pressure 70 mm[Hg] Pfo 3 [facility] 11-16-2024 10:29-0400 Respiratory rate 20 /min Pfo 3 [facility] 11-16-2024 10:29-0400 SaO2% (BldA) [Mass fraction] 98 % Pfo 3 [facility] 11-16-2024 10:29-0400 Systolic blood pressure 124 mm[Hg] Pfo 3 [facility] 10-28-2024 10:41-0400 Body height 147.3 cm Will Cuadra MD Work Phone: [facility] 10-28-2024 10:41-0400 Body mass index (BMI) [Ratio] 19.78 kg/m2 Will Cuadra MD Work Phone: [facility] 10-28-2024 10:41-0400 Body temperature 98.01 [degF] Will Cuadra MD Work Phone: [facility] 10-28-2024 10:41-0400 Body weight 42.91 kg Will Cuadra MD Work Phone: [facility] 10-28-2024 10:41-0400 Diastolic blood pressure 72 mm[Hg] Will Cuadra MD Work Phone: [facility] 10-28-2024 10:41-0400 Heart rate 57 /min Will Cuadra MD Work Phone: [facility] 10-28-2024 10:41-0400 Respiratory rate 16 /min Will Cuadra MD Work Phone: [facility] 10-28-2024 10:41-0400 SaO2% (BldA) [Mass fraction] 98 % Will Cuadra MD Work Phone: [facility] 10-28-2024 10:41-0400 Systolic blood pressure 128 mm[Hg] Will Cuadra MD Work Phone: [facility] 10-19-2024 10:39-0400 Body height 147.3 cm Pfo 3 [facility] 10-19-2024 10:39-0400 Body mass index (BMI) [Ratio] 19.94 kg/m2 Pfo 3 [facility] 10-19-2024 10:39-0400 Body temperature 97.7 [degF] Pfo 3 [facility] 10-19-2024 10:39-0400 Body weight 43.27 kg Pfo 3 [facility] 10-19-2024 10:39-0400 Diastolic blood pressure 70 mm[Hg] Pfo 3 [facility] 10-19-2024 10:39-0400 Heart rate 53 /min Pfo 3 [facility] 10-19-2024 10:39-0400 Respiratory rate 16 /min Pfo 3 [facility] 10-19-2024 10:39-0400 SaO2% (BldA) [Mass fraction] 99 % Pfo 3 [facility] 10-19-2024 10:39-0400 Systolic blood pressure 124 mm[Hg] Pfo 3 [facility] 09-21-2024 10:44-0400 Body height 147.3 cm Pfo 3 [facility] 09-21-2024 10:44-0400 Body mass index (BMI) [Ratio] 20.49 kg/m2 Pfo 3 [facility] 09-21-2024 10:44-0400 Body temperature 98.01 [degF] Pfo 3 [facility] 09-21-2024 10:44-0400 Body weight 44.45 kg Pfo 3 [facility] 09-21-2024 10:44-0400 Diastolic blood pressure 68 mm[Hg] Pfo 3 [facility] 09-21-2024 10:44-0400 Heart rate 55 /min Pfo 3 [facility] 09-21-2024 10:44-0400 Respiratory rate 16 /min Pfo 3 [facility] 09-21-2024 10:44-0400 SaO2% (BldA) [Mass fraction] 96 % Pfo 3 [facility] 09-21-2024 10:44-0400 Systolic blood pressure 140 mm[Hg] Pfo 3 [facility] 09-14-2024 13:24-0400 Body height 144.8 cm Boone Ewing MD Work Phone: [facility] 09-14-2024 13:24-0400 Body mass index (BMI) [Ratio] 20.99 kg/m2 Boone Ewing MD Work Phone: [facility] 09-14-2024 13:24-0400 Body temperature 97.81 [degF] Boone Ewing MD Work Phone: [facility] 09-14-2024 13:24-0400 Body weight 44 kg Boone Ewing MD Work Phone: [facility] 09-14-2024 13:24-0400 Diastolic blood pressure 56 mm[Hg] Boone Ewing MD Work Phone: [facility] 09-14-2024 13:24-0400 Heart rate 50 /min Boone Ewing MD Work Phone: [facility] 09-14-2024 13:24-0400 Respiratory rate 20 /min Boone Ewing MD Work Phone: [facility] 09-14-2024 13:24-0400 SaO2% (BldA) [Mass fraction] 96 % Boone Ewing MD Work Phone: [facility] 09-14-2024 13:24-0400 Systolic blood pressure 132 mm[Hg] Boone Ewing MD Work Phone: [facility] 08-24-2024 10:40-0400 Body height 147.3 cm Pfo 3 [facility] 08-24-2024 10:40-0400 Body mass index (BMI) [Ratio] 20.53 kg/m2 Pfo 3 [facility] 08-24-2024 10:40-0400 Body temperature 97.81 [degF] Pfo 3 [facility] 08-24-2024 10:40-0400 Body weight 44.54 kg Pfo 3 [facility] 08-24-2024 10:40-0400 Diastolic blood pressure 69 mm[Hg] Pfo 3 [facility] 08-24-2024 10:40-0400 Heart rate 59 /min Pfo 3 [facility] 08-24-2024 10:40-0400 Respiratory rate 16 /min Pfo 3 [facility] 08-24-2024 10:40-0400 SaO2% (BldA) [Mass fraction] 98 % Pfo 3 [facility] 08-24-2024 10:40-0400 Systolic blood pressure 144 mm[Hg] Pfo 3 [facility] 07-27-2024 10:40-0400 Body height 147.3 cm Pfo 3 [facility] 07-27-2024 10:40-0400 Body mass index (BMI) [Ratio] 20.36 kg/m2 Pfo 3 [facility] 07-27-2024 10:40-0400 Body temperature 97.81 [degF] Pfo 3 [facility] 07-27-2024 10:40-0400 Body weight 44.18 kg Pfo 3 [facility] 07-27-2024 10:40-0400 Diastolic blood pressure 77 mm[Hg] Pfo 3 [facility] 07-27-2024 10:40-0400 Heart rate 59 /min Pfo 3 [facility] 07-27-2024 10:40-0400 Respiratory rate 18 /min Pfo 3 [facility] 07-27-2024 10:40-0400 SaO2% (BldA) [Mass fraction] 97 % Pfo 3 [facility] 07-27-2024 10:40-0400 Systolic blood pressure 158 mm[Hg] Pfo 3 [facility] 07-22-2024 11:06-0400 Body height 147.3 cm Will Cuadra MD Work Phone: [facility] 07-22-2024 11:06-0400 Body mass index (BMI) [Ratio] 20.57 kg/m2 Will Cuadra MD Work Phone: [facility] 07-22-2024 11:06-0400 Body temperature 98.01 [degF] Will Cuadra MD Work Phone: [facility] 07-22-2024 11:06-0400 Body weight 44.63 kg Will Cuadra MD Work Phone: [facility] 07-22-2024 11:06-0400 Diastolic blood pressure 71 mm[Hg] Will Cuadra MD Work Phone: [facility] 07-22-2024 11:06-0400 Heart rate 65 /min Will Cuadra MD Work Phone: [facility] 07-22-2024 11:06-0400 Respiratory rate 16 /min Will Cuadra MD Work Phone: [facility] 07-22-2024 11:06-0400 SaO2% (BldA) [Mass fraction] 96 % Will Cuadra MD Work Phone: [facility] 07-22-2024 11:06-0400 Systolic blood pressure 153 mm[Hg] Will Cuadra MD Work Phone: [facility] 06-29-2024 10:28-0400 Body height 147.3 cm Pfo 3 [facility] 06-29-2024 10:28-0400 Body mass index (BMI) [Ratio] 20.36 kg/m2 Pfo 3 [facility] 06-29-2024 10:28-0400 Body temperature 97.9 [degF] Pfo 3 [facility] 06-29-2024 10:28-0400 Body weight 44.18 kg Pfo 3 [facility] 06-29-2024 10:28-0400 Diastolic blood pressure 73 mm[Hg] Pfo 3 [facility] 06-29-2024 10:28-0400 Heart rate 66 /min Pfo 3 [facility] 06-29-2024 10:28-0400 Respiratory rate 18 /min Pfo 3 [facility] 06-29-2024 10:28-0400 SaO2% (BldA) [Mass fraction] 98 % Pfo 3 [facility] 06-29-2024 10:28-0400 Systolic blood pressure 166 mm[Hg] Pfo 3 [facility] 06-09-2024 10:25-0500 Body mass index (BMI) [Ratio] 20.99 kg/m2 Boone Ewing MD Work Phone: [facility] 06-09-2024 10:25-0500 Body temperature 97.7 [degF] Boone Ewing MD Work Phone: [facility] 06-09-2024 10:25-0500 Body weight 44 kg Boone Ewing MD Work Phone: [facility] 03-06-2025 10:25-0500 Diastolic blood pressure 78 mm[Hg] Boone Ewing MD Work Phone: [facility] 06-09-2024 10:25-0500 Heart rate 54 /min Boone Ewing MD Work Phone: [facility] 06-09-2024 10:25-0500 SaO2% (BldA) [Mass fraction] 94 % Boone Ewing MD Work Phone: [facility] 06-09-2024 10:25-0500 Systolic blood pressure 140 mm[Hg] Boone Ewing MD Work Phone: [facility] 06-01-2024 10:58-0500 Body height 147.3 cm Pfo 3 [facility] 06-01-2024 10:58-0500 Body mass index (BMI) [Ratio] 20.53 kg/m2 Pfo 3 [facility] 06-01-2024 10:58-0500 Body temperature 98.01 [degF] Pfo 3 [facility] 06-01-2024 10:58-0500 Body weight 44.54 kg Pfo 3 [facility] 06-01-2024 10:58-0500 Diastolic blood pressure 65 mm[Hg] Pfo 3 [facility] 06-01-2024 10:58-0500 Heart rate 58 /min Pfo 3 [facility] 06-01-2024 10:58-0500 Respiratory rate 18 /min Pfo 3 [facility] 06-01-2024 10:58-0500 SaO2% (BldA) [Mass fraction] 100 % Pfo 3 [facility] 06-01-2024 10:58-0500 Systolic blood pressure 150 mm[Hg] Pfo 3 [facility] 05-09-2024 11:47-0500 Body height 144.8 cm Boone Ewing MD Work Phone: [facility] 05-09-2024 11:47-0500 Body mass index (BMI) [Ratio] 20.99 kg/m2 Boone Ewing MD Work Phone: [facility] 05-09-2024 11:47-0500 Body temperature 97.5 [degF] Boone Ewing MD Work Phone: [facility] 05-09-2024 11:47-0500 Body weight 44 kg Boone Ewing MD Work Phone: [facility] 05-09-2024 11:47-0500 Diastolic blood pressure 68 mm[Hg] Boone Ewing MD Work Phone: [facility] 05-09-2024 11:47-0500 Heart rate 65 /min Boone Ewing MD Work Phone: [facility] 05-09-2024 11:47-0500 Respiratory rate 20 /min Boone Ewing MD Work Phone: [facility] 05-09-2024 11:47-0500 SaO2% (BldA) [Mass fraction] 97 % Boone Ewing MD Work Phone: [facility] 05-09-2024 11:47-0500 Systolic blood pressure 122 mm[Hg] Boone Ewing MD Work Phone: [facility] 05-04-2024 11:03-0500 Body height 147.3 cm Pfo 7 [facility] 05-04-2024 11:03-0500 Body mass index (BMI) [Ratio] 20.45 kg/m2 Pfo 7 [facility] 05-04-2024 11:03-0500 Body temperature 97.5 [degF] Pfo 7 [facility] 05-04-2024 11:03-0500 Body weight 44.36 kg Pfo 7 [facility] 05-04-2024 11:03-0500 Diastolic blood pressure 77 mm[Hg] Pfo 7 [facility] 05-04-2024 11:03-0500 Heart rate 75 /min Pfo 7 [facility] 05-04-2024 11:03-0500 Respiratory rate 20 /min Pfo 7 [facility] 05-04-2024 11:03-0500 SaO2% (BldA) [Mass fraction] 99 % Pfo 7 [facility] 05-04-2024 11:03-0500 Systolic blood pressure 141 mm[Hg] Pfo 7 [facility] 04-22-2024 10:49-0500 Body height 147.3 cm Will Cuadra MD Work Phone: [facility] 04-22-2024 10:49-0500 Body mass index (BMI) [Ratio] 20.91 kg/m2 Will Cuadra MD Work Phone: [facility] 04-22-2024 10:49-0500 Body temperature 97.59 [degF] Will Cuadra MD Work Phone: [facility] 04-22-2024 10:49-0500 Body weight 45.36 kg Will Cuadra MD Work Phone: [facility] 04-22-2024 10:49-0500 Diastolic blood pressure 100 mm[Hg] Will Cuadra MD Work Phone: [facility] 04-22-2024 10:49-0500 Heart rate 73 /min Will Cuadra MD Work Phone: [facility] 04-22-2024 10:49-0500 Respiratory rate 20 /min Will Cuadra MD Work Phone: [facility] 04-22-2024 10:49-0500 SaO2% (BldA) [Mass fraction] 98 % Will Cuadra MD Work Phone: [facility] 04-22-2024 10:49-0500 Systolic blood pressure 144 mm[Hg] Will Cuadra MD Work Phone: [facility] 04-19-2024 09:50-0500 Body height 147.3 cm Julianne Mici PA-C Work Phone: [facility] 04-19-2024 09:50-0500 Body mass index (BMI) [Ratio] 20.9 kg/m2 Julianne Mici PA-C [facility] Phone[facility] 04-19-2024 09:50-0500 Body weight 45.36 kg Julianne Mici PA-C [facility] 04-19-2024 09:50-0500 Diastolic blood pressure 84 mm[Hg] Julianne Mici PA-C Work Phone: [facility] 04-19-2024 09:50-0500 Heart rate 87 /min Julianne Mici PA-C Work Phone: [facility] 04-19-2024 09:50-0500 SaO2% (BldA) [Mass fraction] 95 % Julianne Mici PA-C Work Phone: [facility] 04-19-2024 09:50-0500 Systolic blood pressure 134 mm[Hg] Julianne Mici PA-C Work Phone: [facility] 04-13-2024 10:32-0500 Body height 148 cm Pfo 7 [facility] 04-13-2024 10:32-0500 Body mass index (BMI) [Ratio] 20.94 kg/m2 Pfo 7 [facility] 04-13-2024 10:32-0500 Body temperature 97.39 [degF] Pfo 7 [facility] 04-13-2024 10:32-0500 Body weight 45.87 kg Pfo 7 [facility] 04-13-2024 10:32-0500 Diastolic blood pressure 77 mm[Hg] Pfo 7 [facility] 04-13-2024 10:32-0500 Heart rate 71 /min Pfo 7 [facility] 04-13-2024 10:32-0500 Respiratory rate 18 /min Pfo 7 [facility] 04-13-2024 10:32-0500 SaO2% (BldA) [Mass fraction] 100 % Pfo 7 [facility] 04-13-2024 10:32-0500 Systolic blood pressure 135 mm[Hg] Pfo 7 [facility] 03-10-2024 14:14-0500 Body height 144.8 cm Boone Ewing MD Work Phone: [facility] 03-10-2024 14:14-0500 Body mass index (BMI) [Ratio] 22.07 kg/m2 Boone Ewing MD Work Phone: [facility] 03-10-2024 14:14-0500 Body temperature 97.11 [degF] Boone Ewing MD Work Phone: [facility] 03-10-2024 14:14-0500 Body weight 46.27 kg Boone Ewing MD Work Phone: [facility] 03-10-2024 14:14-0500 Diastolic blood pressure 60 mm[Hg] Boone Ewing MD Work Phone: [facility] 03-10-2024 14:14-0500 Heart rate 48 /min Boone Ewing MD Work Phone: [facility] 03-10-2024 14:14-0500 Respiratory rate 20 /min Boone Ewing MD Work Phone: [facility] 03-10-2024 14:14-0500 SaO2% (BldA) [Mass fraction] 97 % Boone Ewing MD Work Phone: [facility] 03-10-2024 14:14-0500 Systolic blood pressure 110 mm[Hg] Boone Ewing MD Work Phone: [facility] 03-02-2024 10:43-0500 Body height 148 cm Pfo 7 [facility] 03-02-2024 10:43-0500 Body mass index (BMI) [Ratio] 21.16 kg/m2 Pfo [address] [place] [address] 03-02-2024 10:43-0500 Body temperature 98.1 [degF] Pfo 7 [facility] 03-02-2024 10:43-0500 Body weight 46.36 kg Pfo 7 [facility] 03-02-2024 10:43-0500 Diastolic blood pressure 71 mm[Hg] Pfo 7 [facility] 03-02-2024 10:43-0500 Heart rate 60 /min Pfo 7 [facility] 03-02-2024 10:43-0500 Respiratory rate 18 /min Pfo 7 [facility] 03-02-2024 10:43-0500 SaO2% (BldA) [Mass fraction] 99 % Pfo 7 [facility] 03-02-2024 10:43-0500 Systolic blood pressure 148 mm[Hg] Pfo 7 [facility] 02-10-2024 10:45-0500 Diastolic blood pressure 68 mm[Hg] Pfo 7 [facility] 02-10-2024 10:45-0500 Heart rate 60 /min Pfo 7 [facility] 02-10-2024 10:45-0500 Respiratory rate 16 /min Pfo 7 [facility] 02-10-2024 10:45-0500 SaO2% (BldA) [Mass fraction] 96 % Pfo 7 [facility] 02-10-2024 10:45-0500 Systolic blood pressure 154 mm[Hg] Pfo 7 [facility] 02-10-2024 10:02-0500 Body height 148 cm Pfo 7 [facility] 02-10-2024 10:02-0500 Body mass index (BMI) [Ratio] 21.12 kg/m2 Pfo 7 [facility] 02-10-2024 10:02-0500 Body temperature 97.9 [degF] Pfo 7 [facility] 02-10-2024 10:02-0500 Body weight 46.27 kg Pfo 7 [facility] 01-22-2024 10:12-0400 Body height 148 cm Will Cuadra MD Work Phone: [facility] 01-22-2024 10:12-0400 Body mass index (BMI) [Ratio] 21.74 kg/m2 Will Cuadra MD Work Phone: [facility] 01-22-2024 10:12-0400 Body temperature 98.4 [degF] Will Cuadra MD Work Phone: [facility] 01-22-2024 10:12-0400 Body weight 47.63 kg Will Cuadra MD Work Phone: [facility] 01-22-2024 10:12-0400 Diastolic blood pressure 77 mm[Hg] Will Cuadra MD Work Phone: [facility] 01-22-2024 10:12-0400 Heart rate 71 /min Will Cuadra MD Work Phone: [facility] 01-22-2024 10:12-0400 Respiratory rate 16 /min Will Cuadra MD Work Phone: [facility] 01-22-2024 10:12-0400 SaO2% (BldA) [Mass fraction] 99 % Will Cuadra MD Work Phone: [facility] 01-22-2024 10:12-0400 Systolic blood pressure 172 mm[Hg] Will Cuadra MD Work Phone: [facility] 01-20-2024 10:38-0400 Body height 148 cm Pfo 7 [facility] 01-20-2024 10:38-0400 Body mass index (BMI) [Ratio] 21.79 kg/m2 Pfo 7 [facility] 01-20-2024 10:38-0400 Body temperature 97.7 [degF] Pfo 7 [facility] 01-20-2024 10:38-0400 Body weight 47.72 kg Pfo 7 [facility] 01-20-2024 10:38-0400 Diastolic blood pressure 66 mm[Hg] Pfo 7 [facility] 01-20-2024 10:38-0400 Heart rate 61 /min Pfo 7 [facility] 01-20-2024 10:38-0400 Respiratory rate 16 /min Pfo 7 [facility] 01-20-2024 10:38-0400 SaO2% (BldA) [Mass fraction] 98 % Pfo 7 [facility] 01-20-2024 10:38-0400 Systolic blood pressure 164 mm[Hg] Pfo 7 [facility] 12-30-2023 10:46-0400 Body height 148 cm Pfo 7 [facility] 12-30-2023 10:46-0400 Body mass index (BMI) [Ratio] 21.54 kg/m2 Pfo 7 [facility] 12-30-2023 10:46-0400 Body temperature 97.59 [degF] Pfo 7 [facility] 12-30-2023 10:46-0400 Body weight 47.17 kg Pfo 7 [facility] 12-30-2023 10:46-0400 Diastolic blood pressure 66 mm[Hg] Pfo 7 [facility] 12-30-2023 10:46-0400 Heart rate 62 /min Pfo 7 [facility] 12-30-2023 10:46-0400 Respiratory rate 16 /min Pfo 7 [facility] 12-30-2023 10:46-0400 SaO2% (BldA) [Mass fraction] 98 % Pfo 7 [facility] 12-30-2023 10:46-0400 Systolic blood pressure 160 mm[Hg] Pfo 7 [facility] 12-09-2023 11:55-0400 Diastolic blood pressure 65 mm[Hg] Pfo 6 [facility] 12-09-2023 11:55-0400 Heart rate 56 /min Pfo 6 [facility] 12-09-2023 11:55-0400 Respiratory rate 16 /min Pfo 6 [facility] 12-09-2023 11:55-0400 SaO2% (BldA) [Mass fraction] 94 % Pfo 6 [facility] 12-09-2023 11:55-0400 Systolic blood pressure 151 mm[Hg] Pfo 6 [facility] 12-09-2023 10:44-0400 Body height 148 cm Pfo 6 [facility] 12-09-2023 10:44-0400 Body mass index (BMI) [Ratio] 21.95 kg/m2 Pfo 6 [facility] 12-09-2023 10:44-0400 Body temperature 97.9 [degF] Pfo 6 [facility] 12-09-2023 10:44-0400 Body weight 48.08 kg Pfo 6 [facility] 11-13-2023 11:23-0400 Body height 148 cm Will Cuadra MD Work Phone: [facility] 11-13-2023 11:23-0400 Body mass index (BMI) [Ratio] 21.95 kg/m2 Will Cuadra MD Work Phone: [facility] 11-13-2023 11:23-0400 Body temperature 98.49 [degF] Will Cuadra MD Work Phone: [facility] 11-13-2023 11:23-0400 Body weight 48.08 kg Will Cuadra MD Work Phone: [facility] 11-13-2023 11:23-0400 Diastolic blood pressure 76 mm[Hg] Will Cuadra MD Work Phone: [facility] 11-13-2023 11:23-0400 Heart rate 66 /min Will Cuadra MD Work Phone: [facility] 11-13-2023 11:23-0400 Respiratory rate 16 /min Will Cuadra MD Work Phone: [facility] 11-13-2023 11:23-0400 SaO2% (BldA) [Mass fraction] 98 % Will Cuadra MD Work Phone: [facility] 11-13-2023 11:23-0400 Systolic blood pressure 147 mm[Hg] Will Cuadra MD Work Phone: [facility] 04-10-2023 14:14-0500 Body height 152.4 cm Jan Reyes MD Work Phone: [facility] 04-10-2023 14:14-0500 Body mass index (BMI) [Ratio] 21.87 kg/m2 Jan Reyes MD [facility] 04-10-2023 14:14-0500 Body weight 50.8 kg Jan Reyes MD Work Phone: [facility] 04-10-2023 14:14-0500 Diastolic blood pressure 80 mm[Hg] Jan Reyes MD Work Phone: [facility] 04-10-2023 14:14-0500 Heart rate 84 /min Jan Reyes MD Work Phone: [facility] 04-10-2023 14:14-0500 SaO2% (BldA) [Mass fraction] 91 % Jan Reyes MD Work Phone: [facility] 04-10-2023 14:14-0500 Systolic blood pressure 130 mm[Hg] Jan Reyes MD Work Phone: [facility] Encounters Encounter Date Encounter Type Care Provider Facility Start: 01-11-2025 End: 01-11-2025 External Result Encounter Nicolette Guajardo [employer] Work Phone: [facility] External [facility] Unsolicited Start: 01-11-2025 End: 01-11-2025 External Result Encounter Nicolette Guajardo [employer] Work Phone: [facility] External Department Unsolicited Start: 01-11-2025 End: 01-11-2025 Orders Only Will Cuadra MD Work Phone: [facility] Hematology Oncology, A Department of [facility] Start: 12-14-2024 End: 12-14-2024 ambulatory Pfo Infusion Chair 3 [facility] [facility] Comment on above: 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) (Primary Dx); Right breast cancer with T3 tumor, >5 cm in greatest dimension (CMS-HCC) Start: 12-13-2024 ambulatory WILL CUADRA [facility] Start: 12-12-2024 End: 12-12-2024 ambulatory Boone Ewing MD Work Phone: [facility] Work Phone: Start: 12-12-2024 End: 12-12-2024 Patient encounter procedure Boone Ewing MD -[facility] [place] Work Phone: Start: 11-16-2024 End: 11-16-2024 Orders Only Nia Palm [facility] - Medical Oncology Comment on above: 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) (Primary Dx); Right breast cancer with T3 tumor, >5 cm in greatest dimension (CMS-HCC); Encounter for monitoring cardiotoxic drug therapy 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) (Primary Dx); Right breast cancer with T3 tumor, >5 cm in greatest dimension (CMS-HCC) Start: 11-15-2024 ambulatory WILL Akins [facility] Start: 11-02-2024 End: 11-02-2024 Refill Will Cuadra MD Work Phone: Carey Hernandez [facility] Medical Oncology Comment on above: Right breast cancer with T3 tumor, >5 cm in greatest dimension (CMS-HCC) Start: 10-28-2024 End: 10-28-2024 Documentation procedure Alvarez Bonner [facility] Medical Oncology Start: 10-28-2024 End: 10-28-2024 Office outpatient visit 25 minutes Will Cuadra MD Work Phone: Carey Hernandez [facility] Oncology Comment on above: 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) (Primary Dx); Right breast cancer with T3 tumor, >5 cm in greatest dimension (CMS-HCC) Start: 10-18-2024 ambulatory NICOLETTE GUAJARDO [facility] Start: 10-12-2024 End: 10-12-2024 Orders Only Will Cuadra MD Work Phone: [facility] Hematology Oncology, A Department of [facility] Start: 09-21-2024 End: 09-21-2024 ambulatory Pfo Infusion Chair 3 Carey Hernandez [facility] - Medical Oncology Comment on above: 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 Work Phone: Start: 09-14-2024 End: 09-14-2024 Postop follow up visit related to original px Boone Ewing MD Work Phone: [facility] Comment on above: Medicare annual well ness visit, subsequent (Primary Dx); Hypothyroidism, adult (CMS/HCC); Invasive ductal carcinoma of breast, female, right; Dyslipidemia (CMS/HCC) Start: 08-30-2024 End: 08-30-2024 Orders Only Boone Ewing MD Work Phone: [facility] Comment on above: Urinary tract infect ion without hematuria, site unspecified Start: 08-24-2024 End: 08-25-2024 ambulatory Pfo Infusion Chair 3 Carey Hernandez [facility] - Medical Oncology Comment on above: 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-HCC) (Primary Dx); Right breast cancer with T3 tumor, >5 cm in greatest dimension ([facility]-HCC) Start: 07-26-2024 End: 07-26-2024 ambulatory [facility] Start: 07-22-2024 End: 07-22-2024 Orders Only Will Cuadra MD Work Phone: [facility] Oncology Start: 07-22-2024 End: 07-22-2024 Office outpatient visit 25 minutes Will Cuadra MD Work Phone: Carey Pereira [facility] Oncology Comment on above: Right breast cancer with T3 tumor, >5 cm in greatest dimension ([facility]-HCC) (Primary Dx); HER2-positive carcinoma of right breast ([facility]-HCC); Chemotherapy induced diarrhea Start: 07-06-2024 End: 07-11-2024 Clinisync Result Encounter Generic External Data Provider [facility] External Department Unsolicited Start: 07-06-2024 End: 07-11-2024 Clinisync Result Encounter Generic External Data Provider [facility] External Department Unsolicited Start: 07-05-2024 End: 07-05-2024 ambulatory [facility] Start: 07-01-2024 End: 07-01-2024 Reflamberto Ewing MD Work Phone: [facility] Comment on above: Overactive bladder Start: 06-29-2024 [facility] BOONE EWING [facility] Start: 06-29-2024 End: 06-29-2024 ambulatory Pfo Infusion Chair 3 Carey Hernandez [facility] Medical Oncology Comment on above: HER2-positive carcin tony of right breast ([facility]-HCC) (Primary Dx); Right breast cancer with T3 tumor, >5 cm in greatest dimension ([facility]-HCC) Start: 06-28-2024 End: 06-28-2024 ambulatory [facility] Start: 06-22-2024 End: 06-22-2024 Orders Only Will Cuadra MD Work Phone: [facility] Hematology Oncology, A Department of [facility] Start: 06-09-2024 End: 06-09-2024 Bamboo flowsheet Boone Ewing MD Work Phone: [facility] Start: 06-09-2024 End: 06-09-2024 Bamboo flowsheet Boone Ewing MD Work Phone: [facility] Start: 06-09-2024 End: 06-09-2024 Office outpatient visit 15 minutes Boone Ewing MD Work Phone: [facility] Comment on above: Major depressive dis order, recurrent, moderate (CMS/HCC) (Primary Dx); Lumbar spondylosis; Malignant neoplasm of upper-outer quadrant of right breast in female, estrogen receptor positive (CMS/HCC); Rheumatoid arthritis involving multiple joints (CMS/HCC); Chronic heart failure with preserved ejection fraction (HFpEF) (CMS/HCC) Start: 06-09-2024 End: 06-09-2024 ambulatory BOONE EWING Not Available Start: 06-07-2024 End: 06-07-2024 ambulatory JAN Booker [facility] Start: 06-01-2024 End: 06-01-2024 Orders Only Nia hernandez [place] - Medical Oncology Comment on above: 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) (Primary Dx); Encounter for monitoring cardiotoxic drug therapy 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) (Primary Dx); Right breast cancer with T3 tumor, >5 cm in greatest dimension (CMS-HCC) Start: 05-31-2024 End: 05-31-2024 ambulatory [facility] Start: 05-12-2024 End: 05-12-2024 Clinisync Result Encounter Boone Ewing MD Work Phone: [facility] External Department Unsolicited Start: 05-12-2024 End: 05-12-2024 Clinisync Result Encounter Boone Ewing MD Work Phone: [facility] External Department Unsolicited Start: 05-09-2024 End: 05-09-2024 ambulatory BOONE EWING Not Available Start: 05-09-2024 End: 05-09-2024 Office outpatient visit 25 minutes Boone Ewing MD Work Phone: [facility] Comment on above: 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-H[facility]) Start: 05-03-2024 End: 05-03-2024 ambulatory WILL CUADRA [facility] Start: 04-22-2024 End: 04-22-2024 Office outpatient visit 40 minutes Will Cuadra MD Work Phone: Carey Hernandez [facility] - Medical Oncology Comment on above: 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-HCC) Start: 04-22-2024 End: 04-22-2024 [facility] Comment on above: 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-HCC) Start: 04-19-2024 End: 04-19-2024 Office outpatient visit 15 minutes Julianne CHRISTY-C Work Phone: [facility] Comment on above: ASCVD (arteriosclero tic cardiovascular disease) (Primary Dx); Right breast cancer with T3 tumor, >5 cm in greatest dimension ([facility]-HCC) Start: 04-19-2024 End: 04-19-2024 ambulatory JULIANNE STEWART [facility] Start: 04-18-2024 End: 04-18-2024 Telephone encounter Kalyani Keron [facility] Physicians Cardiology Start: 04-13-2024 End: 04-13-2024 ambulatory Pfo Infusion Chair 7 Carey Hernandez [facility] - Medical Oncology Comment on above: HER2-positive carcin tony of right breast ([facility]-HCC) (Primary Dx); Right breast cancer with T3 tumor, >5 cm in greatest dimension ([facility]-HCC) Start: 04-12-2024 End: 04-12-2024 ambulatory [facility] Start: 03-23-2024 End: 03-23-2024 [facility] Start: 03-22-2024 End: 03-22-2024 ambulatory [facility] Start: 03-16-2024 End: 03-16-2024 ambulatory Jan Solares Facility:[facility] Start: 03-10-2024 End: 03-10-2024 ambulatory BOONE EWING Not Available Start: 03-10-2024 End: 03-10-2024 Bambofrank flowsadarsh Ewing MD Work Phone: [facility] Start: 03-10-2024 End: 03-10-2024 Borisboo flowsadarsh Ewing MD Work Phone: [facility] [...] ambulatory Pfo Infusion Chair 7 Carey Hernandez [facility] Medical Oncology Comment on above: HER2-positive carcin tony of right breast ([facility]-HCC) (Primary Dx); Right breast cancer with T3 tumor, >5 cm in greatest dimension ([facility]-H[facility]) Start: 03-01-2024 End: 03-01-2024 ambulatory [facility] Start: 02-24-2024 End: 02-24-2024 Orders Only Will Cuadra MD Work Phone: [facility] Start: 02-11-2024 End: 02-11-2024 Refill Carin Brady Work Phone: [facility] Comment on above: Age-related osteopor osis without current pathological fracture (CMS/HCC) Start: 02-10-2024 End: 02-10-2024 ambulatory Pfo Infusion Chair 7 Carey Hernandez [facility] Medical Oncology Comment on above: 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-HCC) Start: 02-09-2024 End: 02-09-2024 [facility] Start: 01-22-2024 End: 01-22-2024 Documentation procedure Nia Bonner [facility] Medical Oncology Start: 01-22-2024 End: 01-22-2024 Office outpatient visit 40 minutes Will Cuadra MD Work Phone: Carey Hernandez [facility] Medical Oncology Comment on above: 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-HCC) Start: 01-22-2024 End: 01-22-2024 [facility] Start: 01-20-2024 End: 01-20-2024 ambulatory Pfo Infusion Chair 7 Carey Hernandez [facility] Medical Oncology Comment on above: HER2-positive carcin tony of right breast ([facility]-HCC) (Primary Dx); Encounter for monitoring cardiotoxic drug therapy; Right breast cancer with T3 tumor, >5 cm in greatest dimension ([facility]-HCC) Start: 01-19-2024 End: 01-19-2024 ambulatory WILL CUADRA [facility] Start: 12-30-2023 End: 12-30-2023 ambulatory [facility] Infusion Chair 7 [facility] Comment on above: 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) (Primary Dx); Right breast cancer with T3 tumor, >5 cm in greatest dimension (CMS-HCC) Start: 12-29-2023 End: 12-29-2023 [facility] Start: 12-23-2023 End: 12-23-2023 Orders Only Will Cuadra MD Work Phone: [facility] Start: 12-09-2023 End: 12-09-2023 ambulatory Pfo Infusion Chair 6 Carey Hernandez [facility] Oncology Comment on above: 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-H[facility]) Start: 12-02-2023 End: 12-02-2023 Orders Only Nia hernandez [facility] Oncology Start: 11-19-2023 End: 11-19-2023 Orders Only Nia hernandez [facility] Oncology Comment on above: Right breast cancer with T3 tumor, >5 cm in greatest dimension ([facility]-HCC) (Primary Dx); HER2-positive carcinoma of right breast (CMS-HCC); Encounter for monitoring cardiotoxic drug therapy Start: 11-18-2023 End: 11-18-2023 Orders Only Nia hernandez [facility] Oncology Comment on above: Right breast cancer with T3 tumor, >5 cm in greatest dimension ([facility]-HCC) (Primary Dx) Start: 11-13-2023 End: 11-13-2023 Documentation procedure Nia norman [facility] Oncology Start: 11-13-2023 End: 11-13-2023 Office outpatient visit 40 minutes Wlil Cuadra MD Work Phone: Carey Pereira [facility] - Medical Oncology Comment on above: Right breast cancer with T3 tumor, >5 cm in greatest dimension ([facility]-HCC) (Primary Dx) Start: 11-12-2023 End: 11-12-2023 Chart abstracting Will Cuadra MD Work Phone: Carey Hernandez [facility] - Medical Oncology Start: 11-11-2023 End: 11-11-2023 ambulatory BOONE EWING Not Available Start: 11-03-2023 End: 12-15-2023 External Result Encounter Boone Ewing MD Work Phone: [facility] External Department Unsolicited Start: 11-03-2023 End: 12-15-2023 External Result Encounter Boone Ewing MD Work Phone: [facility] External Department Unsolicited Start: 11-03-2023 End: 11-03-2023 ambulatory Boone Ewing [facility] Work Phone: Start: 11-03-2023 End: 11-03-2023 Departed Referred MD Boone Ewing Work Phone: [facility] Start: 10-28-2023 End: 10-28-2023 ambulatory BOONE EWING Not Available Start: 09-22-2023 End: 09-22-2023 ambulatory BOONE EWING Not Available Start: 04-10-2023 End: 04-10-2023 Office outpatient visit 25 minutes Jan Reyes MD Work Phone: [facility] Comment on above: 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); Dyslipidemia; Primary hypertension Start: 04-09-2023 Telephone encounter Toyin Bass CMA [facility] Start: 03-25-2022 End: 03-25-[address] BOONE EWING Facility: Start: 02-12-2022 End: 02-12-2022 ambulatory DO Carin Brady Work Phone: [facility] Work Phone: Start: 02-12-2022 End: 02-12-2022 Patient encounter procedure DO Carinkrystian Brady Work Phone: [facility] [address] Start: 02-10-2022 End: 02-10-[address] BOONE EWING Facility:[facility] Start: 01-08-2022 End: 01-09-[address] JAN SOLARES Facility:[facility] Start: 12-12-2021 End: 12-12-[address] BOONE EWING Facility:[facility] Start: 12-10-2021 End: 01-04-[address] JAN SOLARES Facility:[facility] Start: 12-03-2021 End: 12-03-2021 Patient encounter procedure DO Carinkrystian Brady Work Phone: [facility]-X[facility] [address] Start: 11-13-2021 End: 12-04-[address] JAN SOLARES Facility:[facility] Start: 10-28-2021 End: 11-01-[address] JAN SOLARES Facility:[facility] Start: 10-09-2021 End: 10-09-2021 Patient encounter procedure DO Carin Brady Work Phone: [facility] [address] Procedures Date Procedure Procedure Detail Performing Clinician Start: 01-11-2025 Sedimentation rate rbc automated Nicolette Guajardo NP Work Phone: Start: 10-19-2024 CA ECHO DOPPLER COMPLETE Generic Externa l Data Provider Start: 07-06-2024 Echo tthrc r-t 2d w/wom-mode compl spec&colr d Generic External Data Provider Start: 05-12-2024 XR LUMBAR SPINE 2 OR 3V Boone Ewing MD Work Phone: Start: 05-09-2024 Urnls dip stick/tablet rgnt non-auto w/o micrscp Boone Ewing MD Work Phone: Start: 04-19-2024 Ecg routine ecg w/least 12 lds w/i&r Julianne Mici PA-C Work Phone: Start: 04-19-2024 Follow-up visit [...] 01-07-2021 Adult depression screening assessment Toyin Bass [employer] Start: 08-30-2020 H/O: surgery S/P nasal septoplasty Toyin Bonner MA Start: 11-26-2018 History of coronary artery bypass grafting History of coronary artery bypass graft x 2 Toyin Bass [employer] H/O: hysterectomy Hx of hysterectomy Boone Ewing MD Work Phone: History of appendectomy Hx of appendectom y Boone Ewing MD Work Phone: History of coronary artery bypass grafting History of coronary artery bypass graft x 2 Jan Reyes MD Work Phone: Plan of Treatment Date Care Activity Detail Author Start: 11-16-2025 Fall Risk Screening Fall Risk Screening [facility] Start: 11-16-2025 Tobacco Screening Tobacco Screening [facility] Start: 10-28-2025 Tobacco Screening Tobacco Screening [facility] Start: 10-19-2025 Tobacco Screening Tobacco Screening [facility] Start: 09-21-2025 Fall Risk Screening Fall Risk Screening [facility] Start: 09-21-2025 Tobacco Screening Tobacco Screening [facility] Start: 09-14-2025 Medicare Annual Wellness (AWV) Medicare Annual Wellness (AWV) [facility] Start: 08-24-2025 Tobacco Screening Tobacco Screening [facility] Start: 07-27-2025 Tobacco Screening Tobacco Screening [facility] Start: 07-22-2025 Tobacco Screening Tobacco Screening [facility] Start: 06-29-2025 Tobacco Screening Tobacco Screening [facility] Start: 04-22-2025 Tobacco Screening Tobacco Screening [facility] Start: 03-23-2025 Fall Risk Screening Fall Risk Screening [facility] Start: 03-16-2025 End: 03-16-2025 Patient encounter procedure 03/16/2025 1:00 PM EST Office Visit [facility] [address] [place] [address] Boone Ewing MD [address] [place] [address] [facility] Start: 01-21-2025 Adult BMI Screening Adult BMI Screening [facility] Start: 01-21-2025 Tobacco Screening Tobacco Screening [facility] Start: 01-19-2025 Fall Risk Screening Fall Risk Screening [facility] Start: 01-18-2025 End: 11-16-2025 Echo complete W/Strain Imaging Echo complete W/Strain Imaging Echocardiography Routine HER2-positive carcinoma of right breast (CMS-HCC) Right breast cancer with T3 tumor, >5 cm in greatest dimension (CMS-HCC) Encounter for monitoring cardiotoxic drug therapy Expected: 01/18/2025, Expires: 11/16/2025 [facility]: Comment on above: Expected: 01/18/2025, Expires: Start: 01-18-2025 End: 01-18-2025 Patient encounter procedure 01/18/2025 10:30 AM EDT Appointment [facility] - Cardiovascular [address] [place] [id number] Will Cuadra MD [facility] [address] [place] [id number] [facility] - Cardiovascular Start: 01-12-2025 End: 01-12-2025 ambulatory 01/12/2025 9:30 AM EDT Infusion Carey Pereira [facility] - Medical Oncology [facility] [place] [address] Carey Hernandez [facility] - Medical Oncology Start: 01-12-2025 End: 01-12-2025 Patient encounter procedure 01/12/2025 9:00 AM EDT Office Visit Carey Hernandez [facility] - Medical Oncology [address] [place] [address] Will Cuadra MD [address] [place] [id number] Carey Hernandez [facility] - Medical Oncology Start: 01-11-2025 End: 01-11-2025 ambulatory 01/11/2025 10:00 AM EDT Lab [facility] - Lab [address] [place] [phone] Will Cuadra MD [address] [place] [id number] [facility] - Lab Start: 12-29-2024 Adult BMI Screening Adult BMI Screening [facility] Start: 12-29-2024 Tobacco Screening Tobacco Screening [facility] Start: 12-14-2024 End: 12-14-2024 ambulatory 12/14/2024 10:30 AM EDT Infusion Carey Hernandez [facility] - Medical Oncology [address] [place] [address] Carey Hernandez [facility] - Medical Oncology Start: 12-13-2024 End: 12-13-2024 ambulatory 12/13/2024 10:00 AM EDT Lab [facility] - Lab [address] [facility] [place] [address] Will Cuadra MD [address] [place] [id number] [facility] - Lab Start: 12-12-2024 End: 12-12-2024 Patient encounter procedure [facility] Start: 12-08-2024 Adult BMI Screening Adult BMI Screening [facility] Start: 12-08-2024 Tobacco Screening Tobacco Screening [facility] Start: 12-06-2024 End: 12-06-2024 Patient encounter procedure 12/06/2024 10:00 AM EDT Appointment [facility] - Ultrasound [address] [facility] [place] [phone] Will Cuadra MD [address] [place] [address] [address] [place] [id number] [facility] - Ultrasound Start: 12-05-2024 COVID-19 Vaccine (7 - Moderna risk season) COVID-19 Vaccine (7 - Moderna risk season) [facility] Start: 12-05-2024 Influenza vaccination [facility] Start: 12-05-2024 End: 10-28-2025 US Breast - right limited Ultrasound breast limited right Imaging Routine HER2-positive carcinoma of right breast (CMS-HCC) Right breast cancer with T3 tumor, >5 cm in greatest dimension ([facility]) Encounter for monitoring cardiotoxic drug therapy Chemotherapy induced diarrhea Expected: 12/05/2024, Expires: 10/28/2025 [facility] Work Phone: Comment on above: Expected: 12/05/2024, Expires: Start: 11-16-2024 End: 11-16-2024 ambulatory 11/16/2024 10:30 AM EDT Infusion Carey Pereira [facility] - Medical Oncology [address] [place] [address] [facility] - Medical Oncology Start: 11-15-2024 End: 11-15-2024 ambulatory 11/15/2024 10:00 AM EDT Lab [facility] - Lab [address] [place] [address] [facility] - Lab Start: 11-12-2024 Adult BMI Screening Adult BMI Screening [facility] Start: 11-12-2024 Tobacco Screening Tobacco Screening [facility] Start: 10-28-2024 End: 10-28-2024 Patient encounter procedure 10/28/2024 10:45 AM EDT Office Visit Carey Hernandez [facility] [address] [place] [phone] Will Cuadra MD [facility] [address] [place], [place] [phone] Carey Hernandez [facility] Start: 10-19-2024 End: 10-19-2024 ambulatory 10/19/2024 10:30 AM EDT Infusion Carey Hernandez [facility] [address] [place] [phone] [facility] Start: 10-18-2024 End: 10-18-2024 ambulatory 10/18/2024 10:00 AM EDT Lab [facility] [address] [place] [phone] [facility] Start: 10-05-2024 End: 08-24-2025 Echo complete W/Strain Imaging Echo complete W/Strain Imaging Echocardiography Routine HER2-positive carcinoma of right breast (CMS-HCC) Right breast cancer with T3 tumor, >5 cm in greatest dimension (CMS-HCC) Encounter for monitoring cardiotoxic drug therapy Chemotherapy induced diarrhea Expected: 10/05/2024, Expires: 08/24/2025 [facility] Work Phone: Comment on above: Expected: 10/05/2024, Expires: Start: 09-21-2024 End: 09-21-2024 ambulatory 09/21/2024 10:30 AM EDT Infusion Carey Hernandez [facility] [address] [place] [phone] Careyscooter Hernandez [facility] Start: 09-14-2024 End: 09-14-2025 Lipid 1996 panel - Serum or Plasma Lipid panel Lab Routine Dyslipidemia (CMS/HCC) Expected: 09/14/2024 (Approximate), Expires: 09/14/2025 [facility] Work Phone: Comment on above: Expected: 09/14/2024 (Approximate), Expi res: 09/14/2025 Start: 09-14-2024 End: 09-14-2025 Thyrotropin [Units/volume] in Serum or Plasma TSH Lab Routine Hypothyroidism, adult (CMS/HCC) Expected: 09/14/2024 (Approximate), Expires: 09/14/2025 [facility] Comment on above: Expected: 09/14/2024 (Approximate), Expi res: 09/14/2025 Start: 09-14-2024 End: 09-14-2025 Thyroxine (T4) free [Mass/volume] in Serum or Plasma T4, free Lab Routine Hypothyroidism, adult (CMS/HCC) Expected: 09/14/2024 (Approximate), Expires: 09/14/2025 [facility] Comment on above: Expected: 09/14/2024 (Approximate), Expi res: 09/14/2025 Start: 09-14-2024 End: 09-14-2024 Patient encounter procedure 09/14/2024 1:00 PM EDT Office Visit [facility] [address] [place] [address] Boone Ewing MD [address] [place] [phone] [facility] Start: 08-24-2024 End: 08-24-2024 ambulatory 08/24/2024 10:30 AM EDT Infusion Carey Hernandez [facility] - Medical Oncology [facility] [place] [address] Carey Pereira [facility] Start: 08-18-2024 COVID-19 Vaccine (7 - Moderna risk season) COVID-19 Vaccine (7 - Moderna risk season) [facility] Start: 07-27-2024 End: 07-27-2024 ambulatory 07/27/2024 10:30 AM EDT Infusion Carey Pereira [facility] [address] [place] [address], [place] [phone] Carey Hernandez [facility] Start: 07-26-2024 End: 07-26-2024 Patient encounter procedure 07/26/2024 10:00 AM EDT Appointment [facility] [address] [place] [address] [facility] Start: 07-22-2024 End: 07-22-2024 Patient encounter procedure 07/22/2024 11:00 AM EDT Office Visit Carey Hernandez [facility] [address] [place] [phone] Will Cuadra MD [address] [place] [address] Carey Hernandez [facility] Start: 07-11-2024 End: 06-01-2025 Echo complete W/Strain Imaging Echo complete W/Strain Imaging Echocardiography Routine HER2-positive carcinoma of right breast (CMS-HCC) Encounter for monitoring cardiotoxic drug therapy Expected: 07/11/2024, Expires: 06/01/2025 [facility] Work Phone: Comment on above: Expected: 07/11/2024, Expires: Start: 07-05-2024 End: 07-05-2024 Patient encounter procedure 07/05/2024 1:00 PM EDT Appointment [facility] - Ultrasound [address] [place] [address] Will Cuadra MD [address] [place] [address] [facility] - Ultrasound Start: 06-29-2024 End: 06-29-2024 ambulatory 06/29/2024 10:30 AM EDT Infusion Carey Hernandez [facility] [address] [place] [phone] Careyscooter Hernandez [facility] Start: 06-28-2024 End: 06-28-2024 Patient encounter procedure 06/28/2024 10:20 AM EDT Appointment [facility] [address] [place] [address] [facility] Start: 06-20-2024 End: 04-22-2025 US Breast - right limited Ultrasound breast limited right Imaging Routine HER2-positive carcinoma of right breast (CMS-HCC) Right breast cancer with T3 tumor, >5 cm in greatest dimension (CMS-HCC) Expected: 06/20/2024, Expires: 04/22/2025 [employer] [facility] [employer] Work Phone: Comment on above: Expected: 06/20/2024, Expires: Start: 06-09-2024 End: 06-09-2024 Patient encounter procedure [facility] Comment on above: Arrived Start: 06-01-2024 End: 06-01-2024 ambulatory 06/01/2024 11:00 AM EST Infusion Carey Hernandez [facility] [address] [place] [phone] Carey Hernandez [facility] Start: 05-09-2024 End: 05-09-2025 URINARY [...] 05/04/2024 11:00 AM EST Infusion Carey Hernandez [facility] [address] [place] [phone] Carey Hernandez [facility] Start: 05-03-2024 End: 05-03-2024 Patient encounter procedure 05/03/2024 11:00 AM EST Appointment [facility] [address] [place] [address] [facility] Start: 04-22-2024 End: 04-22-2024 Patient encounter procedure 04/22/2024 10:30 AM EST Office Visit Carey Hernandez [facility] [address] [place] [phone] Will Cuadra MD [address] [place] [address] Carey Hernandez [facility] Start: 04-19-2024 End: 04-19-2024 Patient encounter procedure 04/19/2024 10:00 AM EST Office Visit [facility] [address] [phone] Julianne Stewart PA-C [address] [place] [address] [facility] Start: 04-15-2024 COVID-19 Vaccine ( season) COVID-19 Vaccine ( season) [facility] Start: 04-12-2024 End: 04-12-2024 Patient encounter procedure 04/12/2024 1:00 PM EST Appointment [facility] - Cardiovascular [address] [place] [phone] Will Cuadra MD [address] [facility] [address] [place] [address] [facility] Start: 04-10-2024 Adult BMI Screening Adult BMI Screening [facility] Start: 04-10-2024 Tobacco Screening Tobacco Screening [facility] Start: 03-28-2024 End: 01-21-2025 US Breast - right limited Ultrasound breast limited right Imaging Routine HER2-positive carcinoma of right breast ([facility]-HCC) Right breast cancer with T3 tumor, >5 cm in greatest dimension ([facility]-HCC) Expected: 03/28/2024, Expires: 01/21/2025 [facility] Work Phone: Comment on above: Expected: 03/28/2024, Expires: Start: 03-23-2024 End: 03-23-2024 ambulatory 03/23/2024 11:00 AM EST Infusion Carey Kelli [facility] - Medical Oncology [facility] [place] [address] Carey L [facility] - [facility] Oncology Start: 03-22-2024 End: 03-22-2024 Patient encounter procedure 03/22/2024 9:30 AM EST Appointment [facility] [address] [place] [address] [facility] Start: 03-14-2024 End: 03-14-2024 Patient encounter procedure 03/14/2024 2:15 PM EST Office Visit [facility] [address] [place] [address] Boone Ewing MD [address] [place] [address] [facility] Start: 03-10-2024 End: 03-10-2024 Patient encounter procedure 03/10/2024 2:00 PM EST Office Visit [facility] [address] [place] [address] Boone Ewing MD [address] [place] [address] [facility] Start: 03-07-2024 End: 01-19-2025 Echo complete W/Strain Imaging Echo complete W/Strain Imaging Echocardiography Routine HER2-positive carcinoma of right breast (CMS-HCC) Encounter for monitoring cardiotoxic drug therapy Expected: 03/07/2024, Expires: 01/19/2025 [facility] Work Phone: Comment on above: Expected: 03/07/2024, Expires: Start: 03-02-2024 End: 03-02-2024 ambulatory 03/02/2024 10:30 AM EST Infusion [facility] [address] [place] [address] Carey Kelli [facility] Start: 03-01-2024 End: 03-01-2024 Patient encounter procedure 03/01/2024 10:30 AM EST Appointment [facility] [address] [place] [address] [facility] Start: 02-10-2024 End: 02-10-2024 ambulatory 02/10/2024 10:00 AM EST Infusion [facility] [address] [place] [address] Carey Pereira [facility] Start: 02-09-2024 End: 02-09-2024 Patient encounter procedure 02/09/2024 10:00 AM EST Appointment [facility] [address] [place] [address] [facility] Start: 01-22-2024 End: 01-22-2024 Patient encounter procedure 01/22/2024 10:15 AM EDT Office Visit Carey L [facility] - [facility] Oncology [address] [place] [address] Will Cuadra MD [address] [place] [address] Carey Hernandez [facility] Start: 01-20-2024 End: 01-20-2024 ambulatory 01/20/2024 10:30 AM EDT Infusion Carey Hernandez [facility] [address] [place] [address] Carey Hernandez [facility] Start: 01-19-2024 End: 01-19-2024 Patient encounter procedure 01/19/2024 10:00 AM EDT Appointment [facility] [address] [facility] [place] [address] [facility] Start: 12-30-2023 End: 12-30-2023 ambulatory 12/30/2023 10:30 AM EDT Infusion Carey Hernandez [facility] [place] [address] Carey Hernandez [facility] Start: 12-29-2023 End: 12-29-2023 Patient encounter procedure 12/29/2023 10:30 AM EDT Appointment [facility] [address] [place] [address] [facility] Start: 12-11-2023 End: 12-11-2023 Patient encounter procedure 12/11/2023 8:30 AM EDT Appointment [facility] - Cardiovascular [address] [place] [address] Will Cuadra MD [address] [place] [address] [facility] Start: 12-09-2023 End: 12-09-2023 ambulatory 12/09/2023 10:30 AM EDT Infusion Carey Hernandez [facility] [address] [place] [phone] Careyscooter Hernandez [facility] Start: 12-06-2023 COVID-19 Vaccine ( season) COVID-19 Vaccine () [facility] Start: 12-06-2023 COVID-19 Vaccine () COVID-19 Vaccine () [facility] Start: 12-06-2023 Influenza vaccination [facility] Start: 11-19-2023 End: 11-18-2024 Echo complete W/Strain Imaging Echo complete W/Strain Imaging Echocardiography Routine Right breast cancer with T3 tumor, >5 cm in greatest dimension (CMS-HCC) HER2-positive carcinoma of right breast (CMS-HCC) Encounter for monitoring cardiotoxic drug therapy Expected: 11/19/2023, Expires: 11/18/2024 [facility] Work Phone: Comment on above: Expected: 11/19/2023, Expires: Start: 11-13-2023 End: 11-13-2023 Patient encounter procedure 11/13/2023 11:30 AM EDT Office Visit Carey Hernandez [facility] [address] [place] [phone] Will Cuadra MD [address] [place] [address] Careyscooter Hernandez [facility] Start: 11-03-2023 [facility] Start: 08-08-2023 Adult BMI Screening Adult BMI Screening [facility] [employer] Start: 05-31-2023 COVID-19 Vaccine ( season) COVID-19 Vaccine () [facility] Start: 04-10-2023 End: 04-10-2023 Patient encounter procedure 04/10/2023 2:30 PM EST Office Visit [facility] [address] [place] [address] Jan Reyes MD [address] [place] [address] [facility] Start: 03-25-2023 COVID-19 Vaccine () COVID-19 Vaccine () [facility] Start: 12-23-2022 Tobacco Screening Tobacco Screening [facility] Start: 07-08-2022 Medicare Annual Wellness (AWV) Medicare Annual Wellness (AWV) [facility] Start: 01-07-2022 Depression Screening Depression Screening [facility] Start: 02-17-2020 Administration of varicella zoster vaccine [facility] Start: 05-01-2012 Pneumococcal Vaccine: 65+ Years (2 of 2 - PCV) Pneumococcal Vaccine: 65+ Years (2 of 2 - PCV) [facility] Start: 2005 Fall Risk Screening Fall Risk Screening [facility] Start: 1959 DTaP,Tdap and Td Vaccines (1 - Tdap) DTaP,Tdap and Td Vaccines (1 - Tdap) [facility] Start: 1952 Depression Screening Depression Screening [facility] Start: 1940 Medicare Annual Wellness Visit Medicare Annual Wellness Visit [facility] End: 11-18-2024 CBC W Auto Differential panel - Blood CBC auto differential Lab Routine Right breast cancer with T3 tumor, >5 cm in greatest dimension (CMS-HCC) HER2-positive carcinoma of right breast (CMS-HCC) Encounter for monitoring cardiotoxic drug therapy every 3 weeks for 50 Occurrences starting 11/19/2023 until 11/18/2024 [facility] Comment on above: every 3 weeks [...] for 50 Occurrences starting 10/28/2024 until 10/28/2025 [employer] [facility] [employer] [facility] [employer] Work Phone: Comment on above: every 3 [...] for 50 Occurrences starting 11/19/2023 until 11/18/2024 [facility] Comment on above: every 3 weeks for [...] for 50 Occurrences starting 10/28/2024 until 10/28/2025 [facility] Comment on above: every 3 weeks for 50 Occurrences startin g 10/28/2024 until 10/28/2025 Hepatitis B core antibody measurement [facility] Work Phone: Immunizations Immunization Date Immunization Notes Care Provider [facility] 02-05-2024 influenza virus vaccine, unspecified formulation Will Cuadra MD Work Phone: [facility] 01-13-2023 influenza virus vaccine, unspecified formulation Will Cuadra MD Work Phone: [facility] 05-24-2020 COVID-19, mRNA, LNP- S, PF, 100mcg/0.5mL Dose [facility]in [facility] 04-27-2020 COVID-19, mRNA, LNP- S, PF, 100mcg/0.5mL Dose [facility]in [facility] 12-23-2019 zoster vaccine, unspecified formulation Toyin Bass [facility] Payers Date Payer Category Payer Self-pay [id number] 2022 Private Health Insurance [employer] [id number] 2011 Managed Care Other (unspecified) [employer] [id number] 2011 Unknown [id number] 2005 Medicare [id number] 1959 Medicare [id number] 1959 Unknown [id number] 1940 Unknown [id number] 2.16.840.1.419667.3.579. 2.593 1940 Unknown [id number] 2.16.840.1.798984.3.579. 2.593 1940 Unknown [id number] 2.16.840.1.563228.3.579. 2.593 1940 Unknown [id number] 2.16.840.1.221254.3.579. 2.593 1940 Unknown [id number] 2.16.840.1.762434.3.579. 2.593 1940 Unknown [id number] 2.16.840.1.994186.3.579. 2.593 1940 Unknown [id number] 2.16.840.1.389391.3.579. 2.593 1940 Unknown [id number] 2.16.840.1.187299.3.579. 2.1286 1940 Unknown [id number] 2.16.840.1.199146.3.579. 2.1286 1940 Unknown [id number] 2.16.840.1.340522.3.579. 2.1286 1940 Unknown [id number] 2.16.840.1.656168.3.579. 2.1286 1940 Unknown [id number] 2.16.840.1.097560.3.579. 2.1286 1940 Unknown [id number] 2.16.840.1.617535.3.579. 2.1286 1940 Unknown [id number] 2.16.840.1.294901.3.579. 2.1259 1940 Unknown [id number] 2.16.840.1.670045.3.579. 2.1259 1940 Unknown [id number] 2.16.840.1.899137.3.579. 2.1259 1940 Unknown [id number] 2.16.840.1.693423.3.579. 2.1259 1940 Unknown [id number] 2.16.840.1.878399.3.579. 2.9 1940 Unknown [id number] 2.16.840.1.643911.3.579. 2.1259 1940 Unknown [id number] 2.16.840.1.100655.3.579. 2.1258 1940 Unknown [id number] 2.16.840.1.869441.3.579. 2.1259 1940 Unknown [id number] 2.16.840.1.667412.3.579. 2.1285 1940 Unknown [id number] 2.16.840.1.333908.3.579. 2.1285 1940 Unknown [id number] 2.16.840.1.612990.3.579. 2.1285 1940 Unknown [id number] 2.16.840.1.978429.3.579. 2.1285 1940 Unknown [id number] 2.16.840.1.710773.3.579. 2.1285 1940 Unknown [id number] 2.16.840.1.517065.3.579. 2.1285 1940 Unknown [id number] 2.16.840.1.422542.3.579. 2.1285 1940 Unknown [id number] 2.16.840.1.691385.3.579. 2.128 1940 Unknown [id number] 2.16.840.1.242776.3.579. 2.128 1940 Unknown [id number] 2.16.840.1.826867.3.579. 2.1285 1940 Unknown [id number] 2.16.840.1.036940.3.579. 2.1286 1941 Unknown [id number] 2.16.840.1.267009.3.579. 2.1285 1940 Unknown [id number] 2.16.840.1.326497.3.579. 2.1285 1940 Unknown [id number] 2.16.840.1.632401.3.579. 2.1285 1940 Unknown [id number] 2.16.840.1.117294.3.579. 2.1285 1940 Unknown [id number] 2.16.840.1.382053.3.579. 2.1285 1940 Unknown [id number] 2.16.840.1.774055.3.579. 2.1285 1940 Unknown [id number] 2.16.840.1.580954.3.579. 2.1285 1940 Unknown [id number] 2.16.840.1.328266.3.579. 2.1285 1940 Unknown [id number] 2.16.840.1.433101.3.579. 2.1285 1940 Unknown [id number] 2.16.840.1.441182.3.579. 2.1285 1940 Unknown [id number] 2.16.840.1.343651.3.579. 2.1285 1940 Unknown [id number] 2.16.840.1.246084.3.579. 2.1285 1940 Unknown [id number] 2.16.840.1.727465.3.579. 2.1285 1940 Unknown [id number] 2.16.840.1.838729.3.579. 2.1285 1940 Unknown [id number] 2.16.840.1.761007.3.579. 2.1285 1940 Unknown [id number] 2.16.840.1.681533.3.579. 2.1285 1940 Unknown [id number] 2.16.840.1.511422.3.579. 2.1285 1940 Unknown [id number] 2.16.840.1.026378.3.579. 2.1285 1940 Unknown [id number] 2.16.840.1.088037.3.579. 2.1285 1940 Unknown [id number] 2.16.840.1.423723.3.579. 2.1285 1940 Unknown [id number] 2.16.840.1.866962.3.579. 2.1285 1940 Unknown [id number] 2.16.840.1.336574.3.579. 2.1285 1940 Unknown [id number] 2.16.840.1.681591.3.579. 2.1285 1940 Unknown [id number] 2.16.840.1.787420.3.579. 2.1285 1940 Unknown [id number] 2.16.840.1.850357.3.579. 2.1285 1940 Unknown [id number] 2.16.840.1.343872.3.579. 2.1285 1940 Unknown [id number] 2.16.840.1.519164.3.579. 2.1285 1940 Unknown [id number] 2.16.840.1.246480.3.579. 2.1286 Unknown [id number] 2.16.840.1.984623.3.579. 2.531 Unknown [id number] 2.16840.1.787248.3.579. 2.531 Social History Date Type Detail Facility Tobacco smoking stat [facility] Unknown if ever smoked [facility] Work Phone: Start: 1940 Sex Assigned At Female F [facility] Start: 04-10-2023 End: 06-03-2023 Tobacco smoking status NHIS Never smoked tobacco [facility] Start: 04-10-2023 End: 06-03-2023 Tobacco use and exposure Smokeless tobacco non-user [facility] Start: 11-18-2023 End: 09-14-2024 Alcoholic beverage intake Lifetime non-drinker (finding) [facility] Start: 04-24-2020 End: 11-18-[address] [facility] Start: 04-24-2020 End: 11-18-2023 Tobacco use panel [facility] Start: 04-10-2023 Alcohol Comment caffeine intak e : 1-2 cups per day [facility] Start: 1940 Sex assigned at Not on file N [facility] Start: 03-23-2024 End: 11-16-2024 Alcoholic beverage intake Current drinker of alcohol (finding) [facility] Frequency of Communication with Friends and Family More than three times a week [facility] Start: 11-25-2018 Education 12 [facility] Start: 10-21-[address] [facility] Start: 11-09-2014 Sex Female (finding) [facility] NEGATED: Highlighted rowStart: NINF History of tobacco use Passive smoker [facility] Functional Status Date Assessment Result Facility 09-14-2024 Patient Health [facility] ionnaire 2 item (PHQ-2) [Reported] [facility] Clinical Notes 04-09-2023 to 12-14-2024 Emilie Carbajal [...] in stable condition. documented in this encounter [facility] 11-16-2024 History of Presen t illness [...] echo due 01/18/25 documented in this encounter [facility] 10-28-2024 History of Presen t illness Narrative Pt here for f/u breast cancer/phesgo with Dr. Cuadra. Orders received for: Right side breast ultrasound end of 12/2024 Move tx from 01/11 to 01/12. F/u with on 01/12. Continue current tx every 28 days. Right breast US ordered and instructed to schedule end of December. Treatment for 01/11 scheduled for 01/12 with f/u with Dr. Cuadra. Treatment calendar given for next month. documented in this encounter [facility] 10-28-2024 History of Presen t illness Narrative Images from the original note were not included. [facility] 10/28/24 Angelika Martins is a 84 [...] 11/03/2018 Performed by Kel Sherman MD at [facility] Cardiac catheterization N/A 11/01/2018 Performed by Kalin Hamm MD at [facility] Coronary angiogram and left ventricular gram/pressure N/A 11/01/2018 Performed by Kalin Hamm MD at [facility] HYSTERECTOMY 1986 complete INJECTION MEDIAL BRANCH NERVE BLOCK: right C34 45 56mbb Right 09/07/2017 Performed by Kel Serna MD at [facility] INJECTION MEDIAL BRANCH NERVE BLOCK: right C34 45 56mbb Right 07/31/2017 Performed by Kel Serna MD at [facility] RADIO FREQUENCY ABLATION: right C34 45 56 Right 06/21/2018 Performed by Kel Serna MD at [facility] RADIOFREQUENCY ABLATION SPINAL: right C34 45 56rfa Right 09/25/2017 Performed by Kel Serna MD at [facility] RADIOFREQUENCY TURBINATE NASAL Bilateral 08/23/2020 Performed by Eddie Santana MD PhD at [facility] SEPTOPLASTY Circumferential 08/23/2020 Performed by Eddie Santana MD PhD at [facility] TONSILLECTOMY TUBAL LIGATION Family History Problem Relation [...] 0 min Stress: Stress Concern Present (11/25/2018) [place] [place] [facility] - Occupational Stress Questionnaire Feeling of Stress : To some extent Social Connections: Moderately Integrated (11/25/2018) Social Connection and Isolation Panel [NHANES] Frequency of Communication with Friends and Family: More than three times a week Frequency of Social Gatherings with Friends and Family: Twice a week Attends Muslim Services: More than 4 times per year [...] T3 tumor, >5 cm in greatest dimension ([facility]) Dose: 2.5 mg Signed by: Will Cuadra [...] FURTHER REFILLS. Commonly known as: TOPROL XL zuuxhccx-oosy-II-calcium &mins 9 mg iron-400 mcg tablet Refills: [...] T3 tumor, >5 cm in greatest dimension ([facility]) Relevant Orders Ultrasound breast limited right HER2-positive carcinoma of right breast ([facility]) - Primary Relevant Orders Ultrasound breast limited [...] right side ultrasound end of 03/[address] [facility] showed original mass has decreased from [...] echocardiogram every 3 months. Will Cuadra M.D. [facility] [address] [place] [address] Will Cuadra MD Please note that portions of this note were generated using voice recognition Waking[employer] dictation software. Although every effort was made to ensure the accuracy of this automated routeman, some errors in routeman may have occurred. CC: Patient Care Team: Boone Ewing MD as PCP - General (Family Medicine) Will Cuadra MD as Consulting Physician (Hematology) Tayo Flores MD as Consulting Physician (Cardiology) PCP:BOONE EWING Referring MD: Boone Ewing MD documented in this encounter [facility] 10-28-2024 Instructions Will Cuadra MD - 10/28/2024 10:45 AM EDT Right side ultrasound end of 12/2024 Move tx from 01/11 to 01/12. F/u with MD on 01/12. Continue current tx every 28 days. documented in this encounter [facility] 10-19-2024 History of Presen t illness Narrative Patient presents for Phesgo injection. Denies any new or worsening issues. Labs reviewed, Echo completed 10/18 per patient. Phesgo injection administered to right thigh over 5 minutes, without incidence. Observation x 15 minutes completed. Appointment calendar for November. Patient discharged in stable condition. documented in this encounter [facility] 09-21-2024 History of Presen t illness Narrative [...] of her daughter. documented in this encounter [facility] 09-14-2024 History of Presen t illness Narrative [...] Problem List Items Addressed This Visit Dyslipidemia ([facility]) Relevant Orders Lipid panel Hypothyroidism, adult ([facility]) Relevant Orders TSH T4, free Invasive [...] not to smoke. documented in this encounter [facility] 08-24-2024 History of Presen t illness Narrative Phesgo given during downtime documented in this encounter [facility] 07-27-2024 History of Presen t illness Narrative [...] in stable condition. documented in this encounter [facility] 07-22-2024 History of Presen t illness Narrative Pt here for f/u breast cancer/ phesgo. Orders received per Dr. Cuadra: Continue tx every 4 weeks, f/u in 3-4 months. F/u scheduled. documented in this encounter [facility] 07-22-2024 History of Presen t illness Narrative Images from the original note were not included. [facility] 07/22/24 Angelika Martins is a 84 [...] daughter. Past Medical History: Diagnosis Date Cancer (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 CABGX2/LIMAX1/SVGX1/EVH LEFT UPPER LEG/MINA N/A 11/03/2018 Performed by Kel Sherman MD at [facility] Cardiac catheterization N/A 11/01/2018 Performed by Kalin Hamm MD at [facility] Coronary angiogram and left ventricular gram/pressure N/A 11/01/2018 Performed by Kalin Hamm MD at [facility] HYSTERECTOMY 1986 complete INJECTION MEDIAL BRANCH NERVE BLOCK: right C34 45 56mbb Right 09/07/2017 Performed by Kel Serna MD at [facility] INJECTION MEDIAL BRANCH NERVE BLOCK: right C34 45 56mbb Right 07/31/2017 Performed by Kel Serna MD at [facility] RADIO FREQUENCY ABLATION: right C34 45 56 Right 06/21/2018 Performed by Kel Serna MD at [facility] RADIOFREQUENCY ABLATION SPINAL: right C34 45 56rfa Right 09/25/2017 Performed by Kel Serna MD at [facility] RADIOFREQUENCY TURBINATE NASAL Bilateral 08/23/2020 Performed by Eddie Santana MD PhD at [facility] SEPTOPLASTY Circumferential 08/23/2020 Performed by Eddie Santana MD PhD at [facility] TONSILLECTOMY TUBAL LIGATION Family History Problem Relation [...] 0 min Stress: Stress Concern Present (11/25/2018) [place] [facility] [employer] - Occupational Stress Questionnaire Feeling of Stress : To some extent Social Connections: Moderately Integrated (11/25/2018) Social Connection and Isolation Panel [NHANES] Frequency of Communication with Friends and Family: More than three times a week Frequency of Social Gatherings with Friends and Family: Twice a week Attends Muslim Services: More than 4 times per year [...] T3 tumor, >5 cm in greatest dimension ([facility]) Dose: 2.5 mg Signed by: Will Cuadra [...] FURTHER REFILLS. Commonly known as: TOPROL XL esyumljy-agyb-[place]-calcium &mins 9 mg iron-400 mcg tablet Refills: [...] T3 tumor, >5 cm in greatest dimension ([facility]) - Primary HER2-positive carcinoma of right breast ([facility]) Impression: Iron deficiency anemia, not responding to [...] right side ultrasound end of 03/[address] [facility] showed original mass has decreased from [...] echocardiogram every 3 months. Will Cuadra M.D. [facility] [address] [place] [address] Will Cuadra MD Please note that portions of this note were generated using voice recognition Waking[employer] dictation software. Although every effort was made to ensure the accuracy of this automated routeman, some errors in routeman may have occurred. CC: Patient Care Team: Boone Ewing MD as PCP - General (Family Medicine) Will Cuadra MD as Consulting Physician (Hematology) Tayo Flores MD as Consulting Physician (Cardiology) PCP:BOONE EWING Referring MD: Boone Ewing MD [facility] Instructions Will Cuadra MD - 07/22/2024 11:00 AM EDT Continue tx every 4 weeks, f/u in 3-4 months. documented in this encounter [facility] 06-29-2024 History of Presen t illness Narrative [...] in stable condition. documented in this encounter [facility] 06-09-2024 History of Presen t illness Narrative [...] continue prozac. documented in this encounter [facility] 06-01-2024 History of Presen t illness Narrative [...] condition with daughter. documented in this encounter [facility] 05-09-2024 History of Presen t illness [...] MG capsule documented in this encounter [facility] 05-04-2024 History of Presen t illness Narrative [...] in stable condition. documented in this encounter [facility] 04-22-2024 History of Presen t illness Narrative The patient is here for follow up of Phesgo treatment After next tx 05/04, change tx to every 4 weeks. Right side breast ultrasound end of 06/2024 (print out orders) F/u in 07/2024. Calendar, order, and instructions given to patient and daughter, documented in this encounter [facility] 04-22-2024 History of Presen t illness Narrative Images from the original note were not included. [facility] 04/22/24 Angelika Martins is a 84 y.o. [...] daughter. Past Medical History: Diagnosis Date Cancer (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 CABGX2/LIMAX1/SVGX1/EVH LEFT UPPER LEG/MINA N/A 11/03/2018 Performed by Kel Sherman MD at [facility] Cardiac catheterization N/A 11/01/2018 Performed by Kalin Hamm MD at [facility] C[facility]ATH [facility] Coronary angiogram and left ventricular gram/pressure N/A 11/01/2018 Performed by Kalin Hamm MD at [facility]ATH [facility] HYSTERECTOMY 1986 complete INJECTION MEDIAL BRANCH NERVE BLOCK: right C34 45 56mbb Right 09/07/2017 Performed by Kel Serna MD at [facility] INJECTION MEDIAL BRANCH NERVE BLOCK: right C34 45 56mbb Right 07/31/2017 Performed by Kel Serna MD at [facility] RADIO FREQUENCY ABLATION: right C34 45 56 Right 06/21/2018 Performed by Kel Serna MD at [facility] RADIOFREQUENCY ABLATION SPINAL: right C34 45 56rfa Right 09/25/2017 Performed by Kel Serna MD at [facility] RADIOFREQUENCY TURBINATE NASAL Bilateral 08/23/2020 Performed by Eddie Santana MD PhD at [facility] SEPTOPLASTY Circumferential 08/23/2020 Performed by Eddie Santana MD PhD at [facility] TONSILLECTOMY TUBAL LIGATION Family History Problem Relation [...] 0 min Stress: Stress Concern Present (11/25/2018) [place] [facility] - Occupational Stress Questionnaire Feeling of Stress : To some extent Social Connections: Moderately Integrated (11/25/2018) Social Connection and Isolation Panel [NHANES] Frequency of Communication with Friends and Family: More than three times a week Frequency of Social Gatherings with Friends and Family: Twice a week Attends Muslim Services: More than 4 times per year [...] T3 tumor, >5 cm in greatest dimension ([facility]) Dose: 2.5 mg Signed by: Will Cuadra [...] FURTHER REFILLS. Commonly known as: TOPROL XL pganpmhe-apuk-OX-calcium &mins 9 mg iron-400 mcg tablet Refills: [...] AV Velocity Ratio 0.67 Left Ventricle Mass [id number] g Interventricular Septum Diastolic Thickness by 2D [...] right side ultrasound end of 03/[address] [facility] showed original mass has decreased from 6.5-5.1 cm. Overall she has a good response. After next tx 05/04, change tx to every 4 weeks. Right side breast ultrasound end of 06/2024 (print out orders) F/u in 07/2024. Advise patient continue to use antiemetics and Imodium to control side effects from phesgo. Will Cuadra M.D. [facility] [address] [place] [address] Will Cuadra MD Please note that portions of this note were generated using voice recognition W[employer] dictation software. Although every effort was made to ensure the accuracy of this automated routeman, some errors in routeman may have occurred. CC: Patient Care Team: Boone Ewing MD as PCP - General (Family Medicine) Will Cuadra MD as Consulting Physician (Hematology) Tayo Flores MD as Consulting Physician (Cardiology) PCP:BOONE EWING Referring MD: Boone Ewing MD [facility] Instructions Will Cuadra MD - 04/22/2024 10:30 AM EST After next tx 05/04, change tx to every 4 weeks. Right side breast ultrasound end of 06/2024 (print out orders) F/u in 07/2024. [facility] History of Presen t illness Narrative Angelika Martins Date of visit: 04/19/2024 Date of : 1940 Age: 84 y.o. Patient Active Problem List Diagnosis Cervical spondylosis without myelopathy Iron deficiency anemia Coronary artery disease involving [place] coronary artery of [place] heart History of coronary artery bypass graft x 2 Dyslipidemia Epistaxis S/P nasal septoplasty Right breast cancer with T3 tumor, >5 cm in greatest dimension ([facility]) HER2-positive carcinoma of right breast ([facility]) Allergies Allergen Reactions Amoxicillin Diarrhea Current Outpatient [...] FOR ANY FURTHER REFILLS. 90 tablet 3 rwrmhanp-sgts-DE-calcium &mins (THERAGRAN-M) 9 mg iron-400 mcg tablet [...] 60-65% with severe tricuspid valve regurgitation and wznx-lz-ttbfabck mitral valve regurgitation with a posteriorly directed [...] 11/03/2018 Performed by Kel Sherman MD at [facility] Cardiac catheterization N/A 11/01/2018 Performed by Kalin Hamm MD at [facility]ATH [facility] Coronary angiogram and left ventricular gram/pressure N/A 11/01/2018 Performed by Kalin Hamm MD at [facility]ATH [facility] HYSTERECTOMY 1986 complete INJECTION MEDIAL BRANCH NERVE BLOCK: right C34 45 56mbb Right 09/07/2017 Performed by Kel Serna MD at [facility] INJECTION MEDIAL BRANCH NERVE BLOCK: right C34 45 56mbb Right 07/31/2017 Performed by Kel Serna MD at [facility] RADIO FREQUENCY ABLATION: right C34 45 56 Right 06/21/2018 Performed by Kel Serna MD at [facility] RADIOFREQUENCY ABLATION SPINAL: right C34 45 56rfa Right 09/25/2017 Performed by Kel Serna MD at [facility] RADIOFREQUENCY TURBINATE NASAL Bilateral 08/23/2020 Performed by Eddie Santana MD PhD at [facility] SEPT[facility]LAST[facility] Circumferential 08/23/2020 Performed by Eddie Santana MD PhD at [facility] TONSILLECTOMY TUBAL LIGATION Family History Problem Relation [...] 0 min Stress: Stress Concern Present (11/25/2018) [place] [facility] - Occupational Stress Questionnaire Feeling of Stress : To some extent Social Connections: Moderately Integrated (11/25/2018) Social Connection and Isolation Panel [NHANES] Frequency of Communication with Friends and Family: More than three times a week Frequency of Social Gatherings with Friends and Family: Twice a week Attends Muslim Services: More than 4 times per year [...] tumor, >5 cm in greatest dimension ([facility]-HCC) 3. Dyslipidemia -continue atorvastatin 4. Hypertension -well controlled, continue current medications 5. PAC/PVCs -asymptomatic 6. Rheumatoid arthritis 7. Fatigue 8. Severe tricuspid valve regurgitation 04/2024 -euvolemic, no complaints of swelling 9. Jubd-ba-kvhrejys MR 04/2024 -similarly reported in TTE 2019 [...] Referring Physician: Boone Ewing MD [address] [place] [address] Julianne Stewart PA-C 04/19/24 1029 documented in this encounter [facility] 04-18-2024 Miscellaneous Notes Left message for patient to remind them to bring their most current medication list with them to their appointment. [facility]-18-[facility]24 Telephone encounter Note Left message for patient to remind them to bring their most current medication list with them to their appointment. [facility] 04-13-2024 History of Presen t [...] to private vehicle. documented in this encounter [facility] 03-10-2024 History of Presen t illness Narrative [...] legs PRN. documented in this encounter [facility] 03-02-2024 History of Presen t illness Narrative Pt here for phesgo injection. Phesgo injection given SQ to left thigh over 8 minutes. Pt remained on unit for 15 minute observation and denies any complaints. VS stable. Treatment calendar provided and v/u of upcoming appt's, labs, and dc instruction. Dc'd in stable condition with daughter documented in this encounter [facility] 02-10-2024 History of Presen t illness [...] in stable condition. documented in this encounter [facility] 01-22-2024 History of Presen t illness Narrative Patient is here for follow up with Dr. Cuadra. Orders received for Echo every 3 months. Breast right side ultrasound end of 03/2024, [facility], print out orders. F/u in mid 04/2024. Patient given calendar, verbalized understanding of future appointments. documented in this encounter [facility] 01-22-2024 History of Presen t illness Narrative Images from the original note were not included. [facility] 01/22/24 Angelika Martins is a 83 [...] 11/03/2018 Performed by Kel Sherman MD at [facility] Cardiac catheterization N/A 11/01/2018 Performed by Kalin Hamm MD at [facility]ATH [facility] Coronary angiogram and left ventricular gram/pressure N/A 11/01/2018 Performed by Kalin Hamm MD at [facility] HYSTERECTOMY 1986 complete INJECTION MEDIAL BRANCH NERVE BLOCK: right C34 45 56mbb Right 09/07/2017 Performed by Kel Serna MD at [facility] INJECTION MEDIAL BRANCH NERVE BLOCK: right C34 45 56mbb Right 07/31/2017 Performed by Kel Serna MD at [facility] RADIO FREQUENCY ABLATION: right C34 45 56 Right 06/21/2018 Performed by Kel Serna MD at [facility] RADIOFREQUENCY ABLATION SPINAL: right C34 45 56rfa Right 09/25/2017 Performed by Kel Serna MD at [facility] RADIOFREQUENCY TURBINATE NASAL Bilateral 08/23/2020 Performed by Eddie Santana MD PhD at [facility] SEPTOPLAST[facility] Circumferential 08/23/2020 Performed by Eddie Santana MD PhD at [facility] TONSILLECTOMY TUBAL LIGATION Family History Problem Relation [...] 0 min Stress: Stress Concern Present (11/25/2018) [place] [facility] - Occupational Stress Questionnaire Feeling of Stress : To some extent Social Connections: Moderately Integrated (11/25/2018) Social Connection and Isolation Panel [NHANES] Frequency of Communication with Friends and Family: More than three times a week Frequency of Social Gatherings with Friends and Family: Twice a week Attends Muslim Services: More than 4 times per year [...] T3 tumor, >5 cm in greatest dimension ([facility]) Dose: 2.5 mg Signed by: Will Cuadra [...] FURTHER REFILLS. Commonly known as: TOPROL XL njgdjfmu-fbaf-OR-calcium &mins 9 mg iron-400 mcg tablet Refills: [...] T3 tumor, >5 cm in greatest dimension ([facility]) HER2-positive carcinoma of right breast ([facility]) - Primary Impression: Iron deficiency anemia, [...] side effects from phesgo. Will Cuadra M.D. [facility] [address] [place] [address] Will Cuadra MD Please note that portions of this note were generated using voice recognition [employer] dictation software. Although every effort was made to ensure the accuracy of this automated routeman, some errors in routeman may have occurred. CC: Patient Care Team: Boone Ewing MD as PCP - General (Family Medicine) Will Cuadra MD as Consulting Physician (Hematology) Tayo Flores MD as Consulting Physician (Cardiology) PCP:BOONE EWING Referring MD: Boone Ewing MD documented in this encounter [facility] 01-22-2024 Instructions Will Cuadra MD - 01/22/2024 10:15 AM EDT Echo every 3 months. Breast right side ultrasound end of 03/2024, [facility], print out orders. F/u in mid 04/2024 documented in this encounter [facility] 01-20-2024 History of Presen t illness [...] in stable condition. documented in this encounter [facility] 12-30-2023 History of Presen t illness [...] folder of information from [facility], pt declined resources at this time. Environmental Epidemiologist inquired on support system, pt said her daughter Helena lives down the road & is very supportive & 2 other daughters, 1 in area 1 out of area provide good support as well; daughters assist with transportation, shopping, meal preparations and other household tasks; pt relayed her grandchildren are also very supportive. Pt has medical insurance, able to afford medications. Educated pt on [facility] [facility], pt does not endorse need; does not endorse any financial concerns. Pt does not endorse any current needs. Opportunity provided to ask questions, pt does not endorse any at this time; pt gives internal communications writer permission to speak with her daughter Helena. Environmental Epidemiologist introduced self & role of SW to Helena. Educated on [facility] resources/services & provided website information. Provided Ellie with writers card; informed her internal communications writer available & following. [facility]23 History of Presen t illness Narrative Pt here for phesgo injection. Phesgo injection given SQ to left thigh over 6 minutes. Pt remained on unit for 15 minute observation and denies any complaints. VS stable. Treatment calendar provided and v/u of upcoming appt's, labs, and dc instruction. Dc'd in stable condition with daughter [facility] 12-09-2023 History of Presen t illness Narrative [...] condition with daughter. documented in this encounter [facility] 12-02-2023 History of Presen t illness Narrative ECHO DONE ALL ISAIAS SCANNED INTO MEDIA AND ROUTED TO DR. CUADRA TO REVIEW. documented [facility] 11-19-2023 History of Presen t illness Narrative [...] tx, f/u as planned. Will Cuadra M.D. [facility] [address] [place] [address] [place] [address] Previous Messages ----- Message ----- From: Nia Garcia RN Sent: 11/18/2023 3:23 PM EDT To: Will Cuadra MD Subject: path report Dr. Retana called to speak with you. [phone]. I told him you are out on [...] with any questions. documented in this encounter [facility] 11-18-2023 History of Presen t illness Narrative Dr. Retana called to speak with Dr. Cuadra. [phone]. Cuadra is on vacation this week. [...] Cuadra to review. documented in this encounter [facility] 11-13-2023 History of Presen t illness Narrative Patient saw Dr. Cuadra today for follow up. Orders received to F/u in 2 months. Patient given calendar, verbalized understanding of future appointments. documented in this encounter [facility] 11-13-2023 History of Presen t illness Narrative Images from the original note were not included. [facility] 11/13/23 Angelika Martins is a 83 y.o. [...] Performed by Kel Sherman MD at [facility] Cardiac catheterization N/A 11/01/2018 Performed by Kalin Hamm MD at [facility]ATH [facility] Coronary angiogram and left ventricular gram/pressure N/A 11/01/2018 Performed by Kalin Hamm MD at [facility]ATH [facility] HYSTERECTOMY 1986 complete INJECTION MEDIAL BRANCH NERVE BLOCK: right C34 45 56mbb Right 09/07/2017 Performed by Kle Serna MD at [facility] INJECTION MEDIAL BRANCH NERVE BLOCK: right C34 45 56mbb Right 07/31/2017 Performed by Kel Serna MD at [facility] RADIO FREQUENCY ABLATION: right C34 45 56 Right 06/21/2018 Performed by Kel Serna MD at [facility] RADIOFREQUENCY ABLATION SPINAL: right C34 45 56rfa Right 09/25/2017 Performed by Kel Serna MD at [facility] RADIOFREQUENCY TURBINATE NASAL Bilateral 08/23/2020 Performed by [facility] [facility] SEPTOPLASTY Circumferential 08/23/2020 Performed by Eddie Santana MD PhD at [facility] TONSILLECTOMY TUBAL LIGATION Family History Problem Relation [...] 0 min Stress: Stress Concern Present (11/25/2018) [employer] [place] [employer] [facility] - Occupational Stress Questionnaire Feeling of Stress : To some extent Social Connections: Moderately Integrated (11/25/2018) Social Connection and Isolation Panel [NHANES] Frequency of Communication with Friends and Family: More than three times a week Frequency of Social Gatherings with Friends and Family: Twice a week Attends Muslim Services: More than 4 times per year [...] FURTHER REFILLS. Commonly known as: TOPROL XL ktujtvdy-juoi-TP-calcium &mins 9 mg iron-400 mcg tablet Refills: [...] T3 tumor, >5 cm in greatest dimension ([facility]-H[facility]) - Primary Impression: Iron deficiency anemia, [...] this note were generated using voice recognition Waking[employer] dictation software. Although every effort was made to ensure the accuracy of this automated routeman, some errors in routeman may have occurred. CC: Patient Care Team: Boone Ewing MD as PCP - General (Family Medicine) Will Cuadra MD as Consulting Physician (Hematology) Tyao Flores MD as Consulting Physician (Cardiology) PCP:BOONE EWING Referring MD: Boone Ewing MD documented in this encounter [employer] 11-13-2023 Instructions Will Cuadra MD - 11/13/2023 11:30 AM EDT Change daughter as primary contact. F/u in 2 months. [facility] History of Presen t illness Narrative Angelika Martins Date of visit: 04/10/2023 Date of : 1940 Age: 83 y.o. Patient Active Problem List Diagnosis Cervical spondylosis without myelopathy Iron deficiency anemia Coronary artery disease involving [place] coronary artery of [place] heart History of coronary artery bypass graft [...] FOR ANY FURTHER REFILLS. 90 tablet 3 xnyzclfj-tbyn-MS-calcium &mins (THERAGRAN-M) 9 mg iron-400 mcg tablet [...] Sat, Sun (2.5mg Thu, Thu, Thu) sod liins-sezpiv-vnuxdq bottle (NEILMED SINUS RINSE COMPLETE) packet with [...] palpitations. Past Medical History: Diagnosis Date Cancer (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 CABGX2/LIMAX1/SVGX1/EVH LEFT UPPER LEG/MINA N/A 11/03/2018 Performed by Kel Sherman MD at [facility] Cardiac catheterization N/A 11/01/2018 Performed by Kalin Hamm MD at [facility] C[facility]ATH [facility] Coronary angiogram and left ventricular gram/pressure N/A 11/01/2018 Performed by Kalin Hamm MD at [facility]ATH [facility] HYSTERECTOMY 1986 complete INJECTION MEDIAL BRANCH NERVE BLOCK: right C34 45 56mbb Right 09/07/2017 Performed by Kel Serna MD at [facility] INJECTION MEDIAL BRANCH NERVE BLOCK: right C34 45 56mbb Right 07/31/2017 Performed by Kel Serna MD at [facility] RADIO FREQUENCY ABLATION: right C34 45 56 Right 06/21/2018 Performed by Kel Serna MD at [facility] RADIOFREQUENCY ABLATION SPINAL: right C34 45 56rfa Right 09/25/2017 Performed by Kel Serna MD at [facility] RADIOFREQUENCY TURBINATE NASAL Bilateral 08/23/2020 Performed by Eddie Santana MD PhD at [facility] Circumferential 08/23/2020 Performed by Eddie Santana MD PhD at [facility] TONSILLECTOMY TUBAL LIGATION Family History Problem Relation [...] 0 min Stress: Stress Concern Present (11/25/2018) [employer] [place] [employer] [facility] - Occupational Stress Questionnaire Feeling of Stress : To some extent Social Connections: Moderately Integrated (11/25/2018) Social Connection and Isolation Panel [NHANES] Frequency of Communication with Friends and Family: More than three times a week Frequency of Social Gatherings with Friends and Family: Twice a week Attends Muslim Services: More than 4 times per year [...] by mouth 2 (two) times a day. qeptnqgq-hqsx-KP-calcium &mins (THERAGRAN-M) 9 mg iron-400 mcg tablet [...] EWING MD Referring Physician: Boone Ewing MD [facility] [place] [address] documented in this encounter [facility] 04-09-2023 Miscellaneous Notes Called patient to remind them to bring their most current copy of their medication list with them to their appt. Patient verbalizes understanding. documented [facility] this [facility] 04-09-2023 Telephone encounter Note Called patient to remind them to bring their most current copy of their medication list with them to their appt. Patient verbalizes understanding. [facility] Evaluation note No assessment inform ation available [facility] Work Phone: Evaluation note Diagnosis Essential [...] pathological fracture (CMS/HCC) documented in this encounter [facility]* Diagnosis Essential hypertension, benign [...] multiple joints (CMS/HCC) [facility] Diagnosis HER2-positive carcinoma of right breast (CMS-HCC)- Primary Right breast cancer with T3 tumor, >5 cm in greatest dimension (CMS-HCC) [facility]* Diagnosis ASCVD (arteriosclerotic cardiovascular disease)- Primary Unspecified cardiovascular disease Right breast cancer with T3 tumor, >5 cm in greatest dimension (CMS-HCC) documented [facility]* Diagnosis HER2-positive carcinoma of right breast (CMS-HCC)- Primary Right breast cancer with T3 tumor, >5 cm in greatest dimension (CMS-HCC) [facility]* Diagnosis HER2-positive carcinoma of right breast (CMS-HCC)- Primary Right breast cancer with T3 tumor, >5 cm in greatest dimension (CMS-HCC) [facility]* Diagnosis HER2-positive carcinoma of right breast (CMS-HCC)- Primary Right breast cancer with T3 tumor, >5 cm in greatest dimension (CMS-HCC) documented [facility]* Diagnosis Essential hypertension, benign [...] recurrent episode, moderate documented in this encounter [facility]* Diagnosis History of coronary artery bypass graft x 2- Primary Dyslipidemia Other and unspecified hyperlipidemia Primary hypertension Unspecified essential hypertension [facility] Diagnosis Right breast cancer with T3 tumor, >5 cm in greatest dimension (CMS-HCC)- Primary [facility]* Diagnosis Right breast cancer with T3 tumor, >5 cm in greatest dimension (CMS-HCC)- Primary HER2-positive carcinoma of right breast (CMS-HCC) Encounter for monitoring cardiotoxic drug therapy documented in this encounter [facility]* Diagnosis Right breast cancer with T3 tumor, >5 cm in greatest dimension (CMS-HCC)- Primary documented in this encounter [facility]* Diagnosis HER2-positive carcinoma of right breast (CMS-HCC)- Primary Right breast cancer with T3 tumor, >5 cm in greatest dimension (CMS-HCC) [facility]* Diagnosis HER2-positive carcinoma of right breast (CMS-HCC)- Primary Encounter for monitoring cardiotoxic drug therapy Right breast cancer with T3 tumor, >5 cm in greatest dimension (CMS-HCC) documented in this encounter [facility]* Diagnosis HER2-positive carcinoma of right breast (CMS-HCC)- Primary Right breast cancer with T3 tumor, >5 cm in greatest dimension (CMS-HCC) documented in this encounter [facility]* Diagnosis HER2-positive carcinoma of right breast (CMS-HCC)- Primary Right breast cancer with T3 tumor, >5 cm in greatest dimension (CMS-HCC) documented in this encounter [facility]* Diagnosis HER2-positive carcinoma of right breast (CMS-HCC)- Primary Encounter for monitoring cardiotoxic drug therapy documented in this encounter [facility]* Diagnosis Essential hypertension, benign [...] fraction (HFpEF) (CMS/HCC) documented in this encounter [facility] Healthcare[facility]* Diagnosis Essential hypertension, benign [...] Hypertonicity of bladder documented in this encounter [facility]* Diagnosis Right breast cancer with T3 tumor, >5 cm in greatest dimension (CMS-HCC)- Primary HER2-positive carcinoma of right breast (CMS-HCC) Chemotherapy induced diarrhea documented in this encounter [facility]* Diagnosis HER2-positive carcinoma of right breast (CMS-HCC)- Primary Right breast cancer with T3 tumor, >5 cm in greatest dimension (CMS-HCC) documented in this encounter [facility]* Diagnosis HER2-positive carcinoma of right breast (CMS-HCC)- Primary Right breast cancer with T3 tumor, >5 cm in greatest dimension (CMS-HCC) Encounter for monitoring cardiotoxic drug therapy Chemotherapy induced diarrhea documented in this encounter [facility]* Diagnosis Essential hypertension, benign [...] hematuria, site unspecified documented in this encounter [facility]* Diagnosis Essential hypertension, benign [...] and unspecified hyperlipidemia documented in this encounter [facility]* Diagnosis HER2-positive carcinoma of [...] Chemotherapy induced diarrhea [facility]* Diagnosis Right breast cancer with T3 tumor, >5 cm in greatest dimension (CMS-HCC) [facility] Diagnosis HER2-positive carcinoma of right breast (CMS-HCC)- Primary Right breast cancer with T3 tumor, >5 cm in greatest dimension (CMS-HCC) Encounter for monitoring cardiotoxic drug therapy [facility] Diagnosis HER2-positive carcinoma of right breast (CMS-HCC)- Primary Right breast cancer with T3 tumor, >5 cm in greatest dimension (CMS-HCC) [facility]* Diagnosis Onset Date Resolution Status Admit Date Benign essential HTN acute Dec 10:51am Chronic heart failure with preserved ejection fraction (HFpEF) acute December 12 10:51am Invasive ductal carcinoma of right breast in female acute December 12, 2024 10:51am MDD (major depressive disorder), recurrent episode, moderate acute December 12 10:51am Rheumatoid arthritis involving multiple joints acute 2024 10:51am [facility] Work Phone: Evaluation note* Diagnosis HER2-positive carcinoma [...] for referral (narrative)No reason for referral [facility] Work Phone: Reiedw for visit Narrative* Episode Based Medications (Routine) - Authorized Specialty Diagnoses / Procedures Referred By Louie mae Referred To Contact Diagnoses HER2-positive carcinoma of right breast (CMS-HCC) Right breast cancer with T3 tumor, >5 cm in greatest dimension (CMS-HCC) Procedures INJECTION, PERTUZUMAB, TRASTUZUMAB, AND HYALURONIDASE-ZZXF, [place] 10 [place] [address] [place] [address] [address] [place] [address] Phone: tel: fax: [facility] - Medical Oncology [address] [place] [phone] Phone: tel: fax: Referral ID Status Reason Start Date Expiration Date V isits Requested Visits Authorized [id number] Authorized 11/18/2023 11/17/2024 11 11 [facility] Summary Purpose Family History No Family History Records FoundNo Family History Records FoundNo Family History Records FoundNo Family History Records FoundNo Family History Records FoundNo Family History Records Found Advance Directives Advance Directive Response Recorded Date/ Time Advance Directives No October 15 11:48am Advance Directive Response Recorded Date/ Time Advance Directives No October 15 10:48am Documents on File Type Date Recorded 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) HER2-positive carcinoma of right breast (CMS-HCC) Encounter for monitoring cardiotoxic drug therapy Procedures Echo complete W/Strain Imaging Will Cuadra MD [address] [place] [address] Referral ID Status Reason Start Date Expiration Date V isits Requested Visits Authorized [id number] Pending Review 11/19/2023 11/18/2024 1 1 Additional Source Comments INFORMATION SOURCE (unrecogn ized section and content) DATE CREATED AUTHOR 05/10/2021 [facility] Specialist DATE CREATED AUTHOR AUTHOR'S ORGANIZ ATION 04/02/2022 [facility] DATE CREATED AUTHOR AUTHOR'S ORGANIZ ATION 03/26/2024 [facility] DATE CREATED AUTHOR AUTHOR'S ORGANIZ ATION 06/30/2024 [facility] DATE CREATED AUTHOR AUTHOR'S ORGANIZ ATION 09/17/2024 [facility] EPIC DATE CREATED AUTHOR AUTHOR'S ORGANIZ ATION 12/15/2024 [facility] Care Teams (unrecognized sec tion and content) Team Status: Inactive Member Role Status Dates Carin Brady DO Primary Care Provider Active Jna Solares MD Attending Provider Active Team Status: Active Member Role Status Dates Carin Brady DO Primary Care Provider Active Team Status: Inactive Member Role Status Dates Boone Ewing MD Attending Provider Active Star t: November 03, 2023 End: November 03, 2023 Mussel Farmer Relationship Specialty Start Date End Date Boone Ewing MD [address] [place] [phone] PCP - General Family Medicine 06/03/23 Mussel Farmer Relationship Specialty Start Date End Date Boone Ewing MD [address] [place] [phone] PCP - General Family Medicine 06/03/23 Mussel Farmer Relationship Specialty Start Date End Date Boone Ewing MD [address] [place] [phone] PCP - General Family Medicine 06/03/23 Mussel Farmer Relationship Specialty Start Date End Date Boone Ewing MD [address] [place] [phone] PCP - General Family Medicine 06/03/23 Mussel Farmer Relationship Specialty Start Date End Date Boone Ewing MD [address] [place] [address] PCP - General Family Medicine 02/09/24 Mussel Farmer Relationship Specialty Start Date End Date Boone Ewing MD [address] [place] [address] PCP - General Family Medicine 02/09/24 Mussel Farmer Relationship Specialty Start Date End Date Boone Ewing MD [address] [place] [address] PCP - General Family Medicine 02/09/24 Mussel Farmer Relationship Specialty Start Date End Date Boone Ewing MD [address] [place] [phone] PCP - General Family Medicine 02/09/24 Mussel Farmer Relationship Specialty Start Date End Date Boone Ewing MD [address] [place] [address] PCP - General Family Medicine 02/09/24 Mussel Farmer Relationship Specialty Start Date End Date Boone Ewing MD [address] [place] [address] PCP - General Family Medicine 02/09/24 Mussel Farmer Relationship Specialty Start Date End Date Boone Ewing MD [address] [place] [address] PCP - General Family Medicine 06/03/23 Mussel Farmer Relationship Specialty Start Date End Date Boone Ewing MD [address] [place] [address] PCP - General Family Medicine 06/03/23 Mussel Farmer Relationship Specialty Start Date End Date Boone Ewing MD [address] [place] [facility] [place] [place] [address] PCP - General Family Medicine 12/23/21 Mussel Farmer Relationship Specialty Start Date End Date Boone Ewing MD [address] [place] [facility] [place] [place] [address] PCP - General Family Medicine 12/23/21 Mussel Farmer Relationship Specialty Start Date End Date Boone Ewing MD [address] [place] [facility] [place] [place] [address] PCP - General Family Medicine 12/23/21 Mussel Farmer Relationship Specialty Start Date End Date Boone Ewing MD [address] [place] [facility] [place] [place] [address] PCP - General Family Medicine 12/23/21 Mussel Farmer Relationship Specialty Start Date End Date Boone Ewing MD [address] [place] [facility] [place] [place] [address] PCP - General Family Medicine 12/23/21 Mussel Farmer Relationship Specialty Start Date End Date Boone Ewing MD PCP - General Family Medicine 12/23/21 Mussel Farmer Relationship Specialty Start Date End Date Boone Ewing MD PCP - General Family Medicine 12/23/21 Mussel Farmer Relationship Specialty Start Date End Date Boone Ewing MD PCP - General Family Medicine 12/23/21 Mussel Farmer Relationship Specialty Start Date End Date Boone Ewing MD PCP - General Family Medicine 12/23/21 Mussel Farmer Relationship Specialty Start Date End Date Boone Ewing MD PCP - General Family Medicine 12/23/21 Mussel Farmer Relationship Specialty Start Date End Date Boone Ewing MD PCP - General Family Medicine 12/23/21 Mussel Farmer Relationship Specialty Start Date End Date Boone Ewing MD PCP - [facility] Family Medicine 12/23/21 Mussel Farmer Relationship Specialty Start Date End Date Boone Ewing MD PCP - General Family Medicine 12/23/21 Mussel Farmer Relationship Specialty Start Date End Date Boone Ewing MD PCP - General Family Medicine 12/23/21 Mussel Farmer Relationship Specialty Start Date End Date Boone Ewing MD [address] [place] [phone] PCP - General Family Medicine 02/09/24 Mussel Farmer Relationship Specialty Start Date End Date Boone Ewing MD [address] [place] [address] PCP - General Family Medicine 02/09/24 Mussel Farmer Relationship Specialty Start Date End Date Boone Ewing MD [address] [place] [address] PCP - General Family Medicine 02/09/24 Mussel Farmer Relationship Specialty Start Date End Date Boone Ewing MD [address] [place] [address] PCP - General Family Medicine 06/03/23 Mussel Farmer Relationship Specialty Start Date End Date Boone Ewing MD PCP - General Family Medicine 02/09/24 Mussel Farmer Relationship Specialty Start Date End Date Boone Ewing MD [address] [place] [address] PCP - General Family Medicine 06/03/23 Mussel Farmer Relationship Specialty Start Date End Date Boone Ewing MD [address] [place] [address] PCP - General Family Medicine 06/03/23 Mussel Farmer Relationship Specialty Start Date End Date Boone Ewing MD PCP - General Family Medicine 02/09/24 Mussel Farmer Relationship Specialty Start Date End Date Boone Ewing MD PCP - General Family Medicine 02/09/24 Mussel Farmer Relationship Specialty Start Date End Date Boone Ewing MD PCP - General Family Medicine 02/09/24 Mussel Farmer Relationship Specialty Start Date End Date Boone Ewing MD PCP - General Family Medicine 02/09/24 Mussel Farmer Relationship Specialty Start Date End Date Boone Ewing MD PCP - General Family Medicine 02/09/24 Mussel Farmer Relationship Specialty Start Date End Date Boone Ewing MD [address] [place] [phone] PCP - General Family Medicine 06/03/23 Mussel Farmer Relationship Specialty Start Date End Date Boone Ewing MD [address] [place] [phone] PCP - [facility] 06/03/23 Mussel Farmer Relationship Specialty Start Date End Date Boone Ewing MD PCP - General Family Medicine 02/09/24 Mussel Farmer Relationship Specialty Start Date End Date Boone Ewing MD [address] [place] [phone] PCP - [facility] Medicine 06/03/23 Mussel Farmer Relationship Specialty Start Date End Date Boone Ewing MD PCP - General Family Medicine 02/09/24 Mussel Farmer Relationship Specialty Start Date End Date Boone Ewing MD PCP - General Family Medicine 02/09/24 Mussel Farmer Relationship Specialty Start Date End Date Boone Ewing MD PCP - General Family Medicine 02/09/24 Mussel Farmer Relationship Specialty Start Date End Date Boone Ewing MD PCP - General Family Medicine 02/09/24 Mussel Farmer Relationship Specialty Start Date End Date Boone [...] December 12, 2024 End: December 12, 2024 Mussel Farmer Relationship Specialty Start Date End Date Boone Ewing MD PCP - General Family Medicine 06/03/23 Mussel Farmer Relationship Specialty Start Date End Date Boone Ewing MD PCP - General Family Medicine 02/09/24 Goals (unrecognized section and content) Goals may [...] HYALURONIDASE-ZZXF, PER 10 MG Will Cuadra MD [address] [place] [address] [address] [place] [address] Phone: tel: fax: [facility] [place] - Medical Oncology [address] [place] [phone] Phone: tel: fax: Referral ID Status Reason Start Date Expiration Date V isits Requested Visits Authorized [id number] Authorized 11/18/2023 11/17/2024 11 11 Reason Comments Chemotherapy Phesgo Specialty Diagnoses / Procedures Referred By Contac t Referred To Contact Diagnoses HER2-positive carcinoma of right breast (CMS-HCC) Right breast cancer with T3 tumor, >5 cm in greatest dimension (CMS-HCC) Procedures INJECTION, PERTUZUMAB, TRASTUZUMAB, AND HYALURONIDASE-ZZXF, PER 10 MG Will Cuadra MD [address] [place] [address] [facility] On[facility] [address] [place] [address] Reason Comments Med Refill Reason Comments Follow-up [...] carcinoma of breast, female, right (CMS-HCC) Procedures NM OFFICE OUTPATIENT VISIT 60-74 MINS HIGH MDM AMB REFERRAL TO HEMATOLOGY / ONCOLOGY Boone Ewing MD [address] [place] [address] Will Cuadra MD [address] [place] [address] Referral ID Status Reason Start Date Expiration Date V isits Requested Visits Authorized [id number] Pending Review 11/11/2023 05/09/2024 1 1 Reason Comments Injection phesgo Reason Comments Injection [facility]hesgo Specialty Diagnoses / Procedures Referred By Contac t Referred To Contact Diagnoses HER2-positive carcinoma of right breast (CMS-HCC) Right breast cancer with T3 tumor, >5 cm in greatest dimension (CMS-HCC) Procedures INJECTION, PERTUZUMAB, TRASTUZUMAB, AND HYALURONIDASE-ZZXF, PER 10 MG Will Cuadra MD [address] [place] [address] Phone: tel: fax: [facility] - Medical Oncology [address] [place] [address] Phone: tel: fax: Reason Onset Date Comments Med Refill 07/01/2024 Reason Comments Medicare Annual Wellness Visit Subsequen t wellness Follow-up Fell last week tende r on right side rib area Referral ID Status Reason Start Date Expiration Date V isits Requested Visits Authorized [id number] Authorized 11/18/2023 02/18/2025 17 17 FOR RECORDS [...] BE BASED ON THE PRIMARY CLINICAL RECORDS. [facility]. provides no warranty or guarantee of the accuracy or completeness of information in this document.
--- NOTE | 2025-01-13 14:04 | US_ITS ---
[address] [address] Patient Name: TRAVIS GONCALVES MRN: [id number] date: 1940 Sex: F Assigned Patient Location: US Current Patient Location: Accession/Order Number: [id number] Exam Date: 01/13/2025 14:19 Report Date: 01/13/2025 15:26 At the request of: WILL CUADRA Procedure: US pelvis Pelvic ultrasound. Reason for exam: Vaginal bleeding. History of breast cancer. Comparison: none Technique: Transabdominal imaging of the uterus and ovaries was performed. Findings: Uterus and ovaries have been removed per history. No pelvic mass. No free fluid. US/US pelvis Impression: No acute findings. No pelvic mass. Impression dictated by: Eliel Barton Jr., D.O. 01/13/2025 3:26 PM Dictation Location: [place] [address] Electronically authenticated by: [id number] Y Date: 01/13/2025 15:26
== END 2025-01-13 13:53 | disposition home or self-care (01) ==
LOC: US 13:53
PROVIDERS: PCP Family Medicine; Visit Provider Internal Medicine Hematology & Oncology
DX: N93.9 Abnormal uterine and vaginal bleeding, unspecified (principal)
CPT/HCPCS: 76856